=== PATIENT | female | born 1980 | race Caucasian/White ===

== ENCOUNTER 2023-03-05 12:11 | Outpatient (OUT) | payer OTHER, SELFPAY ==
[2023-03-05 12:41] LABS: Basophils Absolute Auto 0.1 10^3/uL (0.0-0.1); Basophils Percent Auto 0.8 % (0.2-2.0); Eosinophils Absolute Auto 0.1 10^3/uL (0.0-0.7); Eosinophils Percent Auto 1.5 % (0.9-7.0); Hematocrit 42.1 % (36.0-48.0); Hemoglobin 14.5 g/dL (12.0-16.0); Immature Granulocytes Abs Auto 0.02 10^3/uL (0.00-0.03); Immature Granulocytes Pct Auto 0.3 % (0.0-0.5); Lymphocytes Absolute Auto 1.4 10^3/uL (1.2-3.8); Lymphocytes Percent Auto 23.5 % (20.5-60.0); Mean Corpuscular HGB Conc 34.4 g/dL (29.9-35.2); Mean Platelet Volume 9.2 fL (9.5-13.5); Monocytes Absolute Auto 0.4 10^3/uL (0.3-0.8); Monocytes Percent Auto 6.7 % (1.7-12.0); Neutrophils Percent Auto 67.2 % (43.0-75.0); Platelet Count 227 10^3/uL (150-450); Red Blood Count 4.84 10^6/uL (4.20-5.40); Red Cell Distribution Width 12.7 % (11.0-15.0)
[2023-03-05 13:43] LABS: Estimated Average Glucose 97 mg/dL
[2023-03-05 13:45] LABS: Alanine Aminotransferase 26 U/L (14-59); Albumin Globulin Ratio 0.8; Albumin Level 3.6 g/dL (3.4-5.0); Alkaline Phosphatase 76 U/L (46-116); Anion Gap 11.8; Aspartate Amino Transferase 17 U/L (15-37); BUN Creatinine Ratio 18.3; Bilirubin Total 0.4 mg/dL (0.2-1.0); Carbon Dioxide 27.3 mmol/L (21.0-32.0); Chloride 103 mmol/L (98-107); Estimated GFR (African America >60 (>=60); Estimated GFR (Non-African Ame >60 (>=60); Globulin 4.4 g/dL; Glucose 96 mg/dL (74-106); Potassium 4.1 mmol/L (3.5-5.1); Sodium 138 mmol/L (136-145)
[2023-03-05 14:01] LABS: Chol HDL Ratio 4.6; Cholesterol 237 mg/dL (<=200); HDL Cholesterol 51 mg/dL (40-60); Thyroid Stimulating Hormone 1.331 uIU/mL (0.358-3.740); Triglycerides 173 mg/dL (<=150); VLDL CHOLESTEROL 34.6 mg/dL
== END 2023-03-05 12:12 ==
LOC: LAB 12:15
PROVIDERS: PCP Nurse Practitioner Primary Care; Visit Provider Nurse Practitioner Primary Care
DX: Z00.00 Encounter for general adult medical examination without abnormal findings (principal); Z13.6 Encounter for screening for cardiovascular disorders; Z13.29 Encounter for screening for other suspected endocrine disorder
CPT/HCPCS: 36415; 80053; 80061; 83036; 84443; 85025

== ENCOUNTER 2023-04-03 07:51 | Outpatient (OUT) | payer OTHER, SELFPAY ==
--- NOTE | 2023-04-03 08:07 | US_ITS ---
The [address] [address] Patient Name: WENDI SALEH MRN: [id number] date: 1980 Sex: F Assigned Patient Location: Current Patient Location: [facility] Accession/Order Number: [id number] Exam Date: 04/03/2023 08:09 Report Date: 04/03/2023 09:45 At the request of: NON-STAFF PHYSICIAN Procedure: US renal BI EXAM: US renal BI HISTORY: . Overactive Bladder N32.81 . COMPARISON: None. TECHNIQUE: Grayscale and color imaging was performed FINDINGS: Scanning of the right kidney demonstrates right kidney to measure 10.4 x 4.8 x 4.5 cm. Color-flow is noted. No solid renal cortical masses or hydronephrosis is noted. Renal cortical echotexture is unremarkable. Scanning of the left kidney demonstrates left kidney to measure 13 x 5.5 x 4.7 cm. Color-flow is noted. No solid renal cortical masses or hydronephrosis is noted. Renal cortical echotexture is unremarkable. Scanning of the bladder demonstrates a normal-appearing bladder. No masses are noted. No bladder wall thickening was noted. Bladder volume was 170 cc. US/US renal BI IMPRESSION: 1 normal ultrasound of the kidneys. 2. Normal ultrasound of the bladder. Electronically authenticated by: HAILY BUCKLEY Date: 04/03/2023 09:45
== END 2023-04-03 07:52 | disposition home or self-care (01) ==
LOC: US 07:51
PROVIDERS: PCP Nurse Practitioner Primary Care
DX: Z12.31 Encounter for screening mammogram for malignant neoplasm of breast (principal); Z80.52 Family history of malignant neoplasm of bladder; Z80.8 Family history of malignant neoplasm of other organs or systems; N32.81 Overactive bladder
CPT/HCPCS: 76775; 77063; 77067

== ENCOUNTER 2023-04-03 07:53 | Outpatient (OUT) | payer OTHER, SELFPAY ==
--- NOTE | 2023-04-03 08:10 | MM_ITS ---
Patient: WENDI SALEH Exam Date: 04/03/2023 : 1980 Gender:F Ordering : STEW LinaAnabel CADEN Admission #: [id number] Family : Order #: [id number] CLICK HERE TO VIEW EXAM RADIOLOGY REPORT PROCEDURE: MM TOMOSYNTHESIS SCREENING BI COMPARISON: [facility] MAMM DIAGNOSTIC 3D SHAHIDA CAD, 05/29/2015. MG MAMM SCREEN SHAHIDA W CAD, 05/19/2015. INDICATIONS: Screening Calculator Name NCI Breast Cancer Risk Assessment Tool 5 Year Breast Cancer Risk 0.50% Lifetime Breast Cancer Risk 6.50% Personal Breast Cancer No Personal Ovarian Cancer No Treatments None Family Cancers Mother with skin cancer at age 60; Father with bladder cancer at age 60. LOCATION: [facility] BREAST COMPOSITION: Heterogeneously dense,which may obscure small masses. FINDINGS: DIAGNOSTIC CATEGORY 1--NEGATIVE. RIGHT BREAST: No significant suspicious finding. No significant change has occurred. LEFT BREAST: No significant suspicious finding. No significant change has occurred. RECOMMENDATIONS: ROUTINE MAMMOGRAM AND CLINICAL EVALUATION IN 12 MONTHS. PLEASE NOTE: A NORMAL MAMMOGRAM DOES NOT EXCLUDE THE POSSIBILITY OF BREAST CANCER. A CLINICALLY SUSPICIOUS PALPABLE LUMP SHOULD BE BIOPSIED. Dictated by: Sav Hughes M.D. on 04/03/2023 at 14:53 Approved by: Sav Hughes M.D. on 04/03/2023 at 14:55
== END 2023-04-03 07:54 | disposition home or self-care (01) ==
LOC: MAMMO 07:54
PROVIDERS: PCP Nurse Practitioner Primary Care; Visit Provider Nurse Practitioner Primary Care
DX: Z12.31 Encounter for screening mammogram for malignant neoplasm of breast (principal); Z80.52 Family history of malignant neoplasm of bladder; Z80.8 Family history of malignant neoplasm of other organs or systems
CPT/HCPCS: 77063; 77067

== ENCOUNTER 2023-04-07 19:48 | Outpatient (REF) | payer OTHER, SELFPAY ==
[2023-04-07 23:00] LABS: Amphetamine Screen Urine NEGATIVE (NEGATIVE); Barbiturates Screen Urine NEGATIVE (NEGATIVE); Benzodiazepines Screen Urine NEGATIVE (NEGATIVE); Buprenorphine Screen Urine NEGATIVE (NEGATIVE); Cannabinoid Screen Urine NEGATIVE (NEGATIVE); Cocaine Screen Urine NEGATIVE (NEGATIVE); Methadone Screen Urine NEGATIVE (NEGATIVE); Methamphetamines Screen Urine NEGATIVE (NEGATIVE); Opiate Screen Urine NEGATIVE (NEGATIVE); Oxycodone Screen Urine NEGATIVE (NEGATIVE); Phencyclidine Screen Urine NEGATIVE (NEGATIVE); Tricyclic Antidepressant Urine NEGATIVE (NEGATIVE)
== END 2023-04-07 19:49 | disposition home or self-care (01) ==
LOC: LAB 19:48
PROVIDERS: PCP Nurse Practitioner Primary Care; Visit Provider Nurse Practitioner Primary Care
DX: G62.9 Polyneuropathy, unspecified (principal)
CPT/HCPCS: 80307

== ENCOUNTER 2023-05-12 22:27 | Outpatient (REF) | payer OTHER, SELFPAY | END 2023-05-12 22:28 | disposition home or self-care (01) | LOC: LAB 22:27 | PROVIDERS: PCP Nurse Practitioner Primary Care; Visit Provider Nurse Practitioner Primary Care | DX: Z78.9 Other specified health status (principal) | CPT/HCPCS: 87086 ==

== ENCOUNTER 2023-06-15 12:37 | Outpatient (OUT) | payer OTHER, SELFPAY ==
--- NOTE | 2023-06-15 12:40 | MR_ITS ---
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 CONTRAST: 20 mL of Dotarem. FINDINGS: No restricted diffusion, extra-axial fluid collection, hydrocephalus, midline shift, or other mass effect. Intracranial flow voids are maintained. Normal midline structures without Chiari I malformation. Normal marrow signal. Nonspecific prominent nasopharyngeal/adenoidal soft tissue. Paranasal sinuses are well-aerated. Large left mastoid effusion. Right mastoid air cells are well-aerated. MR/MR head/brain wo/w con IMPRESSION: 1. No acute intracranial process or abnormal enhancement. 2. Sterility indeterminate large left mastoid effusion. 3. Nonspecific prominent nasopharyngeal/adenoidal soft tissue could be reactive. Electronically authenticated by: ROD NÚÑEZ Date: 06/15/2023 14:04
== END 2023-06-15 12:38 | disposition home or self-care (01) ==
LOC: MRI 12:38
PROVIDERS: PCP Nurse Practitioner Primary Care; Visit Provider Psychiatry & Neurology Neurology
DX: R20.9 Unspecified disturbances of skin sensation (principal); Q05.9 Spina bifida, unspecified
CPT/HCPCS: 70553; A9575

== ENCOUNTER 2023-06-17 10:37 | Outpatient (OUT) | payer OTHER, SELFPAY | END 2023-06-17 10:38 | disposition home or self-care (01) | LOC: LAB 10:38 | PROVIDERS: PCP Nurse Practitioner Primary Care; Visit Provider Nurse Practitioner Primary Care | DX: Z13.21 Encounter for screening for nutritional disorder (principal) | CPT/HCPCS: 36415; 82306; 82607 ==

== ENCOUNTER 2023-06-17 11:36 | Outpatient (REF) | payer OTHER, SELFPAY ==
[2023-06-17 12:07] LABS: Bilirubin Urine NEGATIVE (NEGATIVE); Blood Urine TRACE-I (NEGATIVE); Clarity Urine CLEAR (CLEAR); Color Urine LT. YELLOW (YELLOW); Glucose Urine UA NEGATIVE (NEGATIVE); Ketones Urine NEGATIVE (NEGATIVE); Leukocyte Esterase Urine TRACE (NEGATIVE); Nitrite Urine NEGATIVE (NEGATIVE); Protein Urine NEGATIVE (NEG/TRACE); Urobilinogen Urine 0.2 EU/dL (0.2-1.0); pH Urine 5.5 (5.0-9.0)
== END 2023-06-17 11:37 | disposition home or self-care (01) ==
LOC: LAB 11:36
PROVIDERS: PCP Nurse Practitioner Primary Care; Visit Provider Nurse Practitioner Primary Care
DX: Z13.21 Encounter for screening for nutritional disorder (principal); R30.0 Dysuria
CPT/HCPCS: 36415; 81003; 82306; 82607; 87086

== ENCOUNTER 2023-10-13 21:40 | Outpatient (REF) | payer OTHER, SELFPAY | END 2023-10-13 21:41 | disposition home or self-care (01) | LOC: LAB 21:40 | PROVIDERS: PCP Nurse Practitioner Primary Care; Visit Provider Nurse Practitioner Primary Care | DX: N30.01 Acute cystitis with hematuria (principal) | CPT/HCPCS: 87086; 87150; 87186 ==

== ENCOUNTER 2023-11-21 18:14 | Emergency (ER) | payer OTHER, SELFPAY ==
[2023-11-21] VITALS (8 sets, daily range): BP systolic 122–166; BP diastolic 80–102; PULSE 83–100; RESP 17–22; TEMP 37.6; O2SAT 98–100; BMI 43.5
--- OUTSIDE RECORDS SUMMARY | 2023-11-21 18:19 | XMS_ITS | CCD ---
Author Name Unknown Address [address] [place] [address] Organization [facility] Care Team Providers Care Plumber Apprentice Name Role Phone NEGRITA RESTREPO Admitting Unavaila NEGRITA David Attending Unavaila ble VANCE KEVIN (PA-C) Referring Unavaila ble VANCE KEVIN (PA-C) Referring Unavaila ble Astrid Myers Unavailable MD Liya Peña Attending Provider [phone] DO Deshawn Sharma Primary Care Provider MD Simone Warren Attending Provider [phone] MD Liya Peña Attending Provider DO Deshawn Sharma Primary Care Provider Dr. Deshawn Sharma Balta Primary Care Tom Lopes, Dr. Dominick Hawkins Referring Ashley Lopes, Dr. Dominick Hawkins Attending Ashley Lopes, Dr. Dominick Hawkins Admitting Ashley LEIVA ., ELIUD PARNELL Consulting Unavailabl e DIAB .RO Attending Unavailable DIAB ., RO Admitting Unavailable EDITH, DR GRANT Primary Care Unavailable HAILY HAIDER Consulting Unavailable MARKER ., DR SALCEDO Admitting Unavailable HOUSE, DR GRANT Primary Care Unavailable MARKER ., DR SALCEDO Attending Unavailable MARKER ., DR SALCEDO Consulting Unavailable DESIRAE KATZ Consulting Unavailable BERNWAYNE GOLDEN Consulting DR DESHAWN Reyes Primary Care Unavailable DOMINICK LOPES MD Attending Unavailable DESHAWN SHARMA SR Primary Care Unavailable Stanley, [facility]- Shon Gonzalez Primary Care Provider DO Eric uCrran Emergency Provider [phone] Shon Angel Primary Care Unavailable Eric Curran Admitting Unavailable Eric Curran Attending Unavailable Deshawn Sharma Primary Care Unavailable Liya Peña Admitting Unavailable Liya Peña Attending Unavailable Simone Warren Admitting UnavailSimone Bella Attending Deshawn Osorio Primary Care Unavailable Simone Warren Admitting UnavailSimone Bella Attending Deshawn Osorio Primary Care Unavailable Allergies Allergy Classification Reported Allergen(s) Allergy Type Date of Onset Reaction(s) Facility (6 sources) Latex; Translations: [LATEX] Propensity to adverse reactions to drug (disorder) 8 Anaphylaxis [facility] Repository (2 sources) Morphine; Translations: [MORPHINE] Drug Allergy 7 [facility] Repository (1 source) Zinc Oxide; Translations: [ZINC OXIDE] Drug Allergy 2 [facility] Repository (1 source) NEOMYCIN-BACITR ACIN-POLYMYXIN; Translations: [NEOMYCIN-BACIT RACIN-POLYMYXIN ] Propensity to adverse reactions to drug (disorder) 2 [facility] Repository (1 source) Latex Tube/Connector Drug allergy anaphylaxis [facility] Other (1 source) Amoxicillin / Clavulanate Drug Allergy 7 [facility] Repository (1 source) Gestronol Drug Allergy 7 [facility] Repository (2 sources) Ciprofloxacin; Translations: [ciprofloxacin] Drug Allergy 3 [facility] Medications Current Medications Medication Drug Class(es) Dates Sig (Normalized) Sig (Original) cephalexin 500 mg oral capsule (1 source) Cephalosporin Antibacterial Start: 09-05-2021 take 1 capsule by mouth every eight hours Cephalexin 500 MG 1 capsule Orally three times a day for 10 day(s) Aug, Active fluticasone propionate 0.05 mg/actuat metered dose nasal spray (1 source) Corticosteroid Start: 05-18-2023 Fluticasone Propionate (Flonase Allergy Relief) 50 mcg/actuation spray,suspension Active 2 SPRAY INTRANASAL Daily May 18, 2023 12:00am pregabalin 50 mg oral capsule (4 sources) Start: 06-10-2022 take 1 capsule by mouth three times daily Pregabalin (Lyrica) 50 mg Capsule Active 50 MG PO Three times daily June 10, 2022 12:00am Lyrica Active traMADol hydrochloride 50 mg oral tablet (4 sources) Opioid Agonist Start: 06-10-2022 take 50 mg by mouth three times daily Tramadol Active 50 MG PO Three times daily June 10, 2022 12:00am traMADol HCl Act patricia Completed/Discontinued Medications Medication Drug Class(es) Dates Sig (Normalized) Sig (Original) amoxicillin 875 mg oral tablet (1 source) Penicillin-class Antibacterial Start: 02-23-2021 take 1 tablet by mouth every eight hours Amoxicillin 875 MG 1 tablet Orally every 8 hrs for 10 day(s) Feb, Not-Taking Problems Active Problems Problem Classification Problem Date Documented Date Episodic/Chronic Anxiety disorders (1 source) Anxiety disorder, unspecified; Translations: [Anxiety disorder, unspecified] Onset: 10-06-2022 Chronic Conditions associated with dizziness or vertigo (1 source) Dizziness and giddiness; Translations: [Dizziness and giddiness] Onset: 05-18-2023 Episodic Disorders of lipid metabolism (1 source) Pure hypercholesterolemia, unspecified; Translations: [Pure hypercholesterolemia, unspecified] Onset: 10-06-2022 Chronic E Codes: Struck by; against (1 source) Striking against or struck by other objects, initial encounter; Translations: [STRIKING AGNST/STRUCK OTH OBJ INIT] Onset: 02-17-2023 Episodic Genitourinary symptoms and ill-defined conditions (2 sources) Urge incontinence; Translations: [Urge incontinence] Onset: 10-06-2022 Chronic Immunizations and screening for infectious disease (1 source) Encounter for immunization; Translations: [ENCOUNTER FOR IMMUNIZATION] Onset: 02-17-2023 Episodic Mood disorders (1 source) Mood disorders; Translations: [Depression, unspecified] Onset: 10-06-2022 Nervous system congenital anomalies (2 sources) Spina bifida, unspecified; Translations: [Spina bifida, unspecified] Onset: 08-28-2022 Chronic Open wounds of extremities (4 sources) Laceration without foreign body, left foot, initial encounter; Translations: [LACERATION W/O FB LT FOOT INITIAL] Onset: 02-16-2023 Episodic Other diseases of bladder and urethra (3 sources) Neuromuscular dysfunction of bladder, unspecified; Translations: [Neuromuscular dysfunction of bladder, unspecified] Onset: 08-28-2022 Chronic Other diseases of bladder and urethra (2 sources) Overactive bladder; Translations: [Overactive bladder] Onset: 10-06-2022 Chronic Other diseases of bladder and urethra (1 source) Other specified disorders of bladder; Translations: [Other specified disorders of bladder] Onset: 10-06-2022 Chronic Other screening for suspected conditions (not mental disorders or infectious disease) (1 source) Encounter for observation for other suspected diseases and conditions ruled out; Translations: [Encounter for observation for other suspected diseases and conditions ruled out] Onset: 12-22-2018 Episodic Otitis media and related conditions (1 source) Acute transudative otitis media; Translations: [Other acute nonsuppurative otitis media, unspecified ear] 05-18-2023 Episodic Spondylosis; intervertebral disc disorders; other back problems (1 source) Spinal stenosis, cervical region; Translations: [Spinal stenosis, cervical region] Onset: 12-22-2018 Episodic Substance-related disorders (1 source) Nicotine dependence, unspecified, uncomplicated; Translations: [Nicotine dependence, unspecified, uncomplicated] Onset: 10-06-2022 Chronic Unclassified (1 source) MRI LUMBAR Onset: 01-06-2018 Unclassified (1 source) UNVACCINATED FOR COVID-19; Translations: [UNVACCINATED FOR COVID-19] Onset: 08-28-2022 Unclassified (1 source) Low back pain, unspecified; Translations: [Low back pain, unspecified] Onset: 08-07-2022 Unclassified (1 source) Encounter for preprocedural laboratory examination; Translations: [Encounter for preprocedural laboratory examination] Onset: 06-06-2022 Urinary tract infections (2 sources) Acute cystitis with hematuria; Translations: [Other cystitis without hematuria] Onset: 12-16-2021 Resolved: 09-05-2021 Episodic Viral infection (1 source) COVID-19; Translations: [COVID-19] Onset: 08-28-2022 Past or Other Problems Problem Classification Problem Date Documented Da te Episodic/Chronic Genitourinary symptoms and ill-defined conditions (3 sources) Dysuria; Translations: [Dysuria] Onset: 09-05-2021 Resolved: 09-05-2021 Episodic Other gastrointestinal disorders (1 source) Constipation, unspecified; Translations: [Constipation, unspecified] Onset: 06-10-2022 Episodic Residual codes; unclassified (3 sources) Chills (without fever); Translations: [CHILLS WITHOUT FEVER] Onset: 08-25-2022 Episodic Results Test Name Value Interpretation Reference Range Facility Alanine aminotransferase [En zymatic activity/volume] in Serum or PlasmaOrdered By: Eric Curran on 05-18-2023 ALT [Catalytic activity/Vol] 16 U/L 7-52 [facility] Albumin [Mass/volume] in Ser um or Plasma by Bromocresol green (BCG) dye binding methoOrdered By: Eric Curran on 05-18-2023 Albumin BCG dye [Mass/Vol] 4.1 g/dL 3.5-5.7 [facility] Alkaline phosphatase [Enzyma tic activity/volume] in Serum or PlasmaOrdered By: Eric Curran on 05-18-2023 ALP [Catalytic activity/Vol] 69 U/L 34-104 [facility] Aspartate aminotransferase [ Enzymatic activity/volume] in Serum or PlasmaOrdered By: Eric Curran on 05-18-2023 AST [Catalytic activity/Vol] 14 U/L 13-39 [facility] Basophils Auto (Bld) [#/Vol] Ordered By: PROVIDER TEMP on 05-18-2023 Basophils (Bld) [#/Vol] 0.1 10*3/uL 0.0-0.2 [facility] Basophils/100 WBC Auto (Bld) Ordered By: PROVIDER TEMP on 05-18-2023 Basophils/100 WBC (Bld) 0.8 % . [facility] Bilirubin.total [Mass/volume ] in Serum or PlasmaOrdered By: Eric Curran on 05-18-2023 Bilirubin [Mass/Vol] 0.3 mg/dL 0.3-1.0 [facility] CT head/brain wo conon 05-18 CT head/brain wo con [facility] [place] [address] CT Scan Report Signed Patient: Karlene Tom MR#: [id number] : 1980 Acct:[id number] Age/Sex: 42 / F ADM Date: 05/18/23 Loc: ER Room: Type: [facility] ER Attending Dr: Copies to: Eric Curran DO Ordering Provider: Eric Curran DO Date of Service: 05/18/23 CT/CT head/brain wo con: numbness, costa Unenhanced head CT TECHNIQUE: Contiguous axial imaging of the head. The CT exam was performed using one or more the following dose reduction techniques: Automated exposure control, adjustment of the MA and/or Kv according to patient size, or use of the iterative reconstruction technique. COMPARISON: None HISTORY: Headache. Left-sided facial numbness. VENTRICLES: Within normal limits ATROPHY: None BRAIN PARENCHYMA: Adequate ely-white matter differentiation identified. HEMORRHAGE: None HERNIATION: No mass effect or herniation INFARCTION: No recent vascular distribution infarction is seen. EXTRA-AXIAL FLUID COLLECTIONS None MIDBRAIN: Unremarkable HAM: Unremarkable MEDULLA: Unremarkable SINUSES: Unremarkable ORBITS: Grossly unremarkable MASTOIDS: Unremarkable BONY STRUCTURES Intact ADDITIONAL FINDINGS: CT/CT head/brain wo con IMPRESSION: Unremarkable exam Impression dictated by: Rodney Regalado M.D.05/18/2023 8:43 PM Dictation Location: [place] [address] Transcribed By: [facility] 05/18/232042 Dictated By: Rodney Regalado DO 05/18/232041 Signed By: 05/18/232042 Normal [facility] Calcium [Mass/volume] in Ser um or PlasmaOrdered By: Eric Curran on 05-18-2023 Calcium [Mass/Vol] 8.9 mg/dL 8.6-10.3 [facility] Chloride [Moles/volume] in S gisel or PlasmaOrdered By: Eric Curran on 05-18-2023 Chloride [Moles/Vol] 105 mmol/L 98-107 [facility] Complete Blood Count Auto Di ffon 05-18-2023 Basophils (Bld) [#/Vol] 0.1 10*3/uL Normal 0.0-0.2 [facility] Comment on above: Result Comment: PERF ORMED BY: [place] [address] PATHOLOGIST MEDICAL ASSEMBLER MADI MASTERSON M.D. Performed By: #### H S TROP, CMP, CK, CBC #### [address] Basophils/100 WBC (Bld) 0.8 % Normal . [facility] Comment on above: Performed By: #### H S TROP, CMP, CK, CBC #### [address] Eosinophils (Bld) [#/Vol] 0.1 10*3/uL Normal 0.0-0.45 [facility] Comment on above: Performed By: #### H S TROP, CMP, CK, CBC #### [address] Eosinophils/100 WBC (Bld) 1.4 % Normal . [facility] Comment on above: Performed By: #### H S TROP, CMP, CK, CBC #### [address] Erythrocyte distribution width (RBC) [Ratio] 12.7 % Normal 11.9-15.3 [facility] Comment on above: Performed By: #### H S TROP, CMP, CK, CBC #### [address] Hematocrit (Bld) [Volume fraction] 41.1 % Normal 34.0-46.4 [facility] Comment on above: Performed By: #### H S TROP, CMP, CK, CBC #### [facility] [address] [place] [address] Hemoglobin (Bld) [Mass/Vol] 13.9 g/dL Normal 11.8-15.4 [facility] Comment on above: Performed By: #### H S TROP, CMP, CK, CBC #### [address] Lymphocytes (Bld) [#/Vol] 2.3 10*3/uL Normal 1.00-4.8 [facility] Comment on above: Performed By: #### H S TROP, CMP, CK, CBC #### [address] Lymphocytes/100 WBC (Bld) 23.1 % Normal . [facility] Comment on above: Performed By: #### H S TROP, CMP, CK, CBC #### [address] MCH (RBC) [Entitic mass] 29.4 pg Normal 24.7-34.3 [facility] Comment on above: Performed By: #### H S TROP, CMP, CK, CBC #### [address] MCV (RBC) [Entitic vol] 86.7 fL Normal 80-100 [facility] Comment on above: Performed By: #### H S TROP, CMP, CK, CBC #### [address] Mean Corpuscular HGB Conc 33.9 g/dL Normal 32.0-35.0 [facility] Comment on above: Performed By: #### H S TROP, CMP, CK, CBC #### [address] Monocytes (Bld) [#/Vol] 0.6 10*3/uL Normal 0.0-0.8 [facility] Comment on above: Performed By: #### H S TROP, CMP, CK, CBC #### [address] Monocytes/100 WBC (Bld) 15.48 % Normal 0.00-20.00 [facility] Comment on above: Performed By: #### H S TROP, CMP, CK, CBC #### [address] Monocytes/100 WBC (Bld) 6.0 % Normal . [facility] Comment on above: Performed By: #### H S TROP, CMP, CK, CBC #### [address] Neutrophils (Bld) [#/Vol] 6.7 10*3/uL Normal 1.8-7.7 [facility] Comment on above: Performed By: #### H S TROP, CMP, CK, CBC #### [address] Neutrophils/100 WBC (Bld) 68.7 % Normal . [facility] Comment on above: Performed By: #### H S TROP, CMP, CK, CBC #### [address] NRBC% 0.2 /100{WBC} Normal 0-0.5 [facility] Comment on above: Performed By: #### H S TROP, CMP, CK, CBC #### [address] Platelet mean volume (Bld) [Entitic vol] 8.0 fL Normal 6.3-10.7 [facility] Comment on above: Performed By: #### H S TROP, CMP, CK, CBC #### [address] Platelets (Bld) [#/Vol] 247 10*3/uL Normal 150-450 [facility] Comment on above: Performed By: #### H S TROP, CMP, CK, CBC #### [address] RBC (Bld) [#/Vol] 4.74 10*6/uL Normal 3.60-5.00 [facility] Comment on above: Performed By: #### H S TROP, CMP, CK, CBC #### [address] WBC (Bld) [#/Vol] 9.7 10*3/uL Normal 3.8-11.6 [facility] Comment on above: Performed By: #### H S TROP, CMP, CK, CBC #### [facility] [address] Comprehensive Metabolic Pane margo 05-18-2023 Albumin [Mass/Vol] 4.1 g/dL Normal 3.5-5.7 [facility] Comment on above: Performed By: #### H S TROP, CMP, CK, CBC #### [facility] [address] Albumin/Globulin [Mass ratio] 1.4 {ratio} Normal [facility] Comment on above: Performed By: #### H S TROP, CMP, CK, CBC #### [address] ALP [Catalytic activity/Vol] 69 U/L Normal 34-104 [facility] Comment on above: Performed By: #### H S TROP, CMP, CK, CBC #### [address] ALT [Catalytic activity/Vol] 16 U/L Normal 7-52 [facility] Comment on above: Performed By: #### H S TROP, CMP, CK, CBC #### [address] Anion gap [Moles/Vol] 12.3 mmol/L Normal 6.0-15.0 [facility] Comment on above: Performed By: #### H S TROP, CMP, CK, CBC #### [address] AST [Catalytic activity/Vol] 14 U/L Normal 13-39 [facility] Comment on above: Performed By: #### H S TROP, CMP, CK, CBC #### [facility] [address] [place] [address] [place] Bilirubin [Mass/Vol] 0.3 mg/dL Normal 0.3-1.0 [facility] Comment on above: Performed By: #### H S TROP, CMP, CK, CBC #### [place] [address] [place] Calcium [Mass/Vol] 8.9 mg/dL Normal 8.6-10.3 [facility] Comment on above: Performed By: #### H S TROP, CMP, CK, CBC #### [address] Chloride [Moles/Vol] 105 mmol/L Normal 98-107 [facility] Comment on above: Performed By: #### H S TROP, CMP, CK, CBC #### [address] CO2 [Moles/Vol] 24.8 mmol/L Normal 21.0-31.0 [facility] Comment on above: Performed By: #### H S TROP, CMP, CK, CBC #### [address] Creatinine [Mass/Vol] 0.76 mg/dL Normal 0.60-1.20 [facility] Comment on above: Performed By: #### H S TROP, CMP, CK, CBC #### [address] Creatinine Clr Calc Pharmacy 131.87 [facility] Comment on above: Result Comment: PERF ORMED BY: [place] [address] PATHOLOGIST MEDICAL ASSEMBLER MADI MASTERSON M.D. Performed By: #### H S TROP, CMP, CK, CBC #### [address] GFR/1.73 sq M.predicted MDRD (S/P/Bld) [Vol rate/Area] mL/min/{1.73_m2} [facility] Comment on above: Performed By: #### H S TROP, CMP, CK, CBC #### [address] Globulin (S) [Mass/Vol] 3.0 g/dL [facility] Comment on above: Performed By: #### H S TROP, CMP, CK, CBC #### [address] Glucose [Mass/Vol] 84 mg/dL Normal 70-100 [facility] Comment on above: Result Comment: [facility] Glucose Reference Range is dependent on time and content of last meal. Glucose of more than 200 mg/dL in a nonstressed, ambulatory subject supports the diagnosis of Diabetes Mellitus. ADA recommended reference range Performed By: #### H S TROP, CMP, CK, CBC #### [facility] [address] Potassium [Moles/Vol] 4.1 mmol/L Normal 3.5-5.1 [facility] Comment on above: Performed By: #### H S TROP, CMP, CK, CBC #### [address] Protein [Mass/Vol] 7.1 g/dL Normal 6.4-8.9 [facility] Comment on above: Performed By: #### H S TROP, CMP, CK, CBC #### [address] Sodium [Moles/Vol] 138 mmol/L Normal 136-145 [facility] Comment on above: Performed By: #### H S TROP, CMP, CK, CBC #### [address] Urea nitrogen [Mass/Vol] 13 mg/dL Normal 7-25 [facility] Comment on above: Performed By: #### H S TROP, CMP, CK, CBC #### [facility] [address] [place] [address] [place] Creatine Kinaseon 05-18-2023 CK [Catalytic activity/Vol] 37 U/L Normal 30-223 [facility] Comment on above: Performed By: #### H S TROP, CMP, CK, CBC #### [facility] [address] [place] [address] [place] Creatine kinase [Enzymatic a ctivity/volume] in Serum or PlasmaOrdered By: Eric Curran on 05-18-2023 CK [Catalytic activity/Vol] 37 U/L 30-223 [facility] Creatinine [Mass/volume] in Serum or PlasmaOrdered By: Eric Curran on 05-18-2023 Creatinine [Mass/Vol] 0.76 mg/dL 0.60-1.20 [facility] ECG 12 lead ECGon 05-18-2023 ECG 12 lead ECG [facility] [place] [id number] Electrocardiograph Report Signed Patient: Karlene Tom MR#: [id number] : 1980 Acct:[id number] Age/Sex: 42 / F ADM Date: 05/18/23 Loc: ER Room: Type: [facility] ER Attending Dr: Ordering Provider: Eric Curran DO Date of Service: 05/18/23 ECG/ECG 12 lead ECG: Neuro Symptoms/Deficit Copies to: Test Reason : Blood Pressure : 150/076 mmHG Vent. Rate : 075 BPM Atrial Rate : 075 BPM P-R Int : 150 ms QRS Dur : 088 ms QT Int : 356 ms P-R-T Axes : 063 041 025 degrees QTc Int : 397 ms Normal sinus rhythm Normal ECG No previous ECGs available Confirmed by ERIC CURRAN DO ([id number]) on 05/19/2023 5:53:32 AM Referred By: Electronically Signed By:ERIC CURRAN DO Transcribed By: MUS Signed By Eric Curran DO 0553 Normal [facility] Eosinophils Auto (Bld) [#/Vo l]Ordered By: PROVIDER TEMP on 05-18-2023 Eosinophils (Bld) [#/Vol] 0.1 10*3/uL 0.0-0.45 [facility] Eosinophils/100 WBC Auto (Bl d)Ordered By: PROVIDER TEMP on 05-18-2023 Eosinophils/100 WBC (Bld) 1.4 % . [facility] Erythrocyte distribution wid th Auto (RBC) [Ratio]Ordered By: PROVIDER TEMP on 05-18-2023 Erythrocyte distribution width (RBC) [Ratio] 12.7 % 11.9-15.3 [facility] Globulin Calc (S) [Mass/Vol] Ordered By: Eric Curran on 05-18-2023 Globulin (S) [Mass/Vol] 3.0 g/dL [facility] Glucose [Mass/volume] in Ser um or PlasmaOrdered By: Eric Curran on 05-18-2023 Glucose [Mass/Vol] 84 mg/dL 70-100 [facility] Comment on above: ADA recommended refe rence rangeRandom Glucose Reference Range is dependent on time and content of last meal. Glucose of more than 200 mg/dL in a nonstressed, ambulatory subject supports the diagnosis of Diabetes Mellitus. Hematocrit Auto (Bld) [Volum e fraction]Ordered By: PROVIDER TEMP on 05-18-2023 Hematocrit (Bld) [Volume fraction] 41.1 % 34.0-46.4 [facility] Hemoglobin [Mass/volume] in BloodOrdered By: PROVIDER TEMP on 05-18-2023 Hemoglobin (Bld) [Mass/Vol] 13.9 g/dL 11.8-15.4 [facility] Leukocytes [#/volume] correc demond for nucleated erythrocytes in Blood by Automated counOrdered By: PROVIDER TEMP on 05-18-2023 WBC corrected for nucl RBC Auto (Bld) [#/Vol] 9.7 10*3/uL 3.8-11.6 [facility] Lymphocytes Auto (Bld) [#/Vo l]Ordered By: PROVIDER TEMP on 05-18-2023 Lymphocytes (Bld) [#/Vol] 2.3 10*3/uL 1.00-4.8 [facility] Lymphocytes/100 WBC Auto (Bl d)Ordered By: PROVIDER TEMP on 05-18-2023 Lymphocytes/100 WBC (Bld) 23.1 % . [facility] MCH Auto (RBC) [Entitic mass ]Ordered By: PROVIDER TEMP on 05-18-2023 MCH (RBC) [Entitic mass] 29.4 pg 24.7-34.3 [facility] MCHC Auto (RBC) [Mass/Vol]Or dered By: PROVIDER TEMP on 05-18-2023 MCHC (RBC) [Mass/Vol] 33.9 g/dL 32.0-35.0 [facility] MCV Auto (RBC) [Entitic vol] Ordered By: PROVIDER TEMP on 05-18-2023 MCV (RBC) [Entitic vol] 86.7 fL 80-100 [facility] Monocyte distribution width [Entitic volume] in Blood by AutomatedOrdered By: PROVIDER TEMP on 05-18-2023 Monocyte distribution width Auto (Bld) [Entitic vol] 15.48 % 0.00-20.00 [facility] Monocytes Auto (Bld) [#/Vol] Ordered By: PROVIDER TEMP on 05-18-2023 Monocytes (Bld) [#/Vol] 0.6 10*3/uL 0.0-0.8 [facility] Monocytes/100 WBC Auto (Bld) Ordered By: PROVIDER TEMP on 05-18-2023 Monocytes/100 WBC (Bld) 6.0 % . [facility] Neutrophils Auto (Bld) [#/Vo l]Ordered By: PROVIDER TEMP on 05-18-2023 Neutrophils (Bld) [#/Vol] 6.7 10*3/uL 1.8-7.7 [facility] Neutrophils/100 WBC Auto (Bl d)Ordered By: PROVIDER TEMP on 05-18-2023 Neutrophils/100 WBC (Bld) 68.7 % . [facility] No Panel InformationOrdered By: Eric Curran on 05-18-2023 Estimated GFR (CKD-EPI) > 60.0 mL/Min [facility] Creatinine Clearance (Chem 131.87 [facility] Nucleated erythrocytes [Pres ence] in Blood by Automated countOrdered By: PROVIDER TEMP on 05-18-2023 Nucleated RBC Auto Ql (Bld) 0.2 /100{WBC} 0-0.5 [facility] Platelet mean volume Auto (B ld) [Entitic vol]Ordered By: PROVIDER TEMP on 05-18-2023 Platelet mean volume (Bld) [Entitic vol] 8.0 fL 6.3-10.7 [facility] Platelets Auto (Bld) [#/Vol] Ordered By: PROVIDER TEMP on 05-18-2023 Platelets (Bld) [#/Vol] 247 10*3/uL 150-450 [facility] Potassium [Moles/volume] in Serum or PlasmaOrdered By: Eric Curran on 05-18-2023 Potassium [Moles/Vol] 4.1 mmol/L 3.5-5.1 [facility] Protein [Mass/volume] in Ser um or PlasmaOrdered By: Eric Curran on 05-18-2023 Protein [Mass/Vol] 7.1 g/dL 6.4-8.9 [facility] RBC Auto (Bld) [#/Vol]Ordere d By: PROVIDER TEMP on 05-18-2023 RBC (Bld) [#/Vol] 4.74 10*6/uL 3.60-5.00 [facility] Serum or plasma albumin/glob ulin mass ratioOrdered By: Eric Curran on 05-18-2023 Albumin/Globulin [Mass ratio] 1.4 {ratio} [facility] Sodium [Moles/volume] in Ser um or PlasmaOrdered By: Eric Curran on 05-18-2023 Sodium [Moles/Vol] 138 mmol/L 136-145 [facility] Troponin I High Sensitivityo n 05-18-2023 Troponin I High Sensitivity 2.6 pg/mL Normal 0.0-15.0 [facility] Comment on above: Result Comment: PERF ORMED BY: [place] [address] PATHOLOGIST MEDICAL ASSEMBLER MADI MASTERSON M.D. Performed By: #### H S TROP, CMP, CK, CBC #### [address] Troponin I.cardiac [Mass/vol ume] in Serum or Plasma by Detection limit <= 0.01 ng/Ordered By: Eric Curran on 05-18-2023 Troponin I.cardiac DL <= 0.01 ng/mL [Mass/Vol] 2.6 pg/mL 0.0-15.0 [facility] Urea nitrogen [Mass/volume] in Serum or PlasmaOrdered By: Eric Curran on 05-18-2023 Urea nitrogen [Mass/Vol] 13 mg/dL 04-14 [facility] WBC Auto (Bld) [#/Vol]Ordere d By: PROVIDER TEMP on 05-18-2023 WBC (Bld) [#/Vol] 9.7 10*3/uL 3.8-11.6 [facility] Anesthesiaon 03-19-2023 Anesthesia Patient: KARLENE TOM Age: 42 years Sex: Female : 1980 Associated Diagnoses: None Author: HUGO ERAZO DO Postoperative Information Time Seen: Date & Time 03/18/2023 13:50:00. Post Operative Info: Post operative day: Post Anesthesia Care Unit. Patient location: PACU. Assessment Postanesthesia assessment Vitals: Vital Signs (last value in last 48 hours) Temperature Temporal Artery: 36 degC Low (03/18/23 13:30:00) Respiratory Rate: 16 br/min (03/18/23 13:45:00) Peripheral Pulse Rate: 71 bpm (03/18/23 13:45:00) Heart Rate Monitored: 65 bpm (03/18/23 13:30:00) Systolic Blood Pressure: 153 mmHg High (03/18/23 13:45:00) Diastolic Blood Pressure: 81 mmHg (03/18/23 13:45:00) Mean Arterial Pressure, Cuff: 83 mmHg (03/18/23 13:30:00) SpO2: 98 % (03/18/23 13:45:00). Mental status: at preoperative baseline. Respiratory support: Normal oxygenation and ventilation. Pain: Controlled. Nausea status: absence of nausea and vomiting. Postoperative hydration status: euvolemic. Notes: Normothermia. [facility] Anesthesiaon 03-18-2023 Anesthesia Patient: KARLENE TOM Age: 42 years Sex: Female : 1980 Associated Diagnoses: None Author: HUGO ERAZO DO DIAGNOSIS: OAB, NEURO Preoperative Information Procedure/ Case: . NPO greater than 8 hours. Anesthesia history Patient's history: negative. Family's history: negative. Review of Systems ALL SYSTEMS REVIEWED: CV, PULM, GI, , NEURO, HEPATIC, HEME, ENDO, PSYCH, MS HISTORY/ROS: 1.spina bifida 2.neurogenic bladder 3.overactive bladder 4.chronic pain Health Status Allergies: Allergies (3) Active Reaction Cipro ITCHING LATEX allergy ANAPHYLAXIS Silvadene WORSENED LANDIS Current medications: Home Medications (4) Active ibuprofen 200 mg oral tablet 600 mg = 3 tabs, PRN, ORAL, TID Lyrica 75 mg oral capsule 75 mg = 1 caps, ORAL, TID tiZANidine 4 mg oral tablet 4 mg = 1 tabs, PRN, ORAL, BID traMADol 50 mg oral tablet 50 mg = 1 tabs, PRN, ORAL, TID LABORATORY DATA Chemistry BMP Plus Mag No qualifying data available. Hematology CBC brief [address] No qualifying data available. Coagulation PT INR [address] No qualifying data available. Test Test, U: NEG (03/18/23) Histories Past Medical History: No qualifying data available Procedure history: Lumbar laminectomy. Social History Social & Psychosocial History Social History Alcohol Denies Alcohol Use Substance Abuse Current, Marijuana, 1-2 times per year Tobacco Former smoker, quit more than 30 days ago Tobacco Use:. Cigarettes Comment: quit 01/09/23. (03/06/2023 14:16 - Palmer WILEY, Frannie) Psychosocial History No active psychosocial history has been recorded . Physical Examination VITALS Vital Signs (last value in last 48 hours) Temperature Temporal Artery: 37 degC (03/18/23 09:00:00) Respiratory Rate: 18 br/min (03/18/23 09:00:00) Heart Rate Monitored: 58 bpm Low (03/18/23 09:00:00) Systolic Blood Pressure: 136 mmHg (03/18/23 09:00:00) Diastolic Blood Pressure: 78 mmHg (03/18/23 09:00:00) SpO2: 97 % (03/18/23 09:00:00)Height and Weight (last value in last 48 hours) Height/Length Dosin.18 cm (03/18/23 08:45:00) Weight Dosin.4 kg (03/18/23 08:45:00) General: Alert and oriented. Airway: Mallampati classification: II (soft palate, fauces, uvula visible). Assessment and Plan [place] [employer] Anesthesiologists (ASA) physical status classification: Class III. Anesthetic Preoperative Plan Anesthetic technique: General anesthesia. Induction: intravenously. Maintenance airway: Laryngeal mask airway. Special monitoring: Standard ASA monitors.. Risks discussed: nausea, vomiting, sore throat, dental injury, allergic reaction, serious complications, Risks explained in detail as listed on the consent form. The patient's questions were answered to satisfaction. The patient is OK to proceed. . Informed consent: signed by patient. Notes. This report was completed using voice recognition software. Verbal misinterpretations may occur. [facility] FENTANYL 100mcg INJon 2022 FENTANYL 100mcg INJ PRN Response Entered On: 03/18/2023 13:44 EDT Performed On: 03/18/2023 13:35 EDT by Ángela Nieves RN Intervention Information: fentanyl Performed by Ángela Nieves RN on 03/18/2023 13:27:00 EDT fentaNYL,25mcg IV Push,Left Hand,Moderate Pain PRN Medication Response PRN Medication used for : Pain PRN Medication Effectiveness : Yes PRN Response Pain Scales : Numeric (8yrs & older) Numeric Pain Scale Age : Numeric (8yrs & older) Actual time of reassessment : Yes Ángela Nieves RN - 03/18/2023 13:44 EDT Numeric Pain Scale Numeric Pain Scale : 2 = Mild Pain Numeric Pain Score : 2 Ángela Nieves RN - 03/18/2023 13:44 EDT [facility] Comment on above: Order Comment: maxim um 200 mcg; Phase I PACU only; For pain level 4-6;HIGH ALERT:monitor for adverse effects; potential SOUND ALIKE/LOOK ALIKE-verify med; FENTANYL 100mcg INJ PRN Response Entered On: 03/18/2023 13:44 EDT Performed On: 03/18/2023 13:20 EDT by Ángela Nieves RN Intervention Information: fentanyl Performed by Ángela Nieves RN on 03/18/2023 13:15:00 EDT fentaNYL,25mcg IV Push,Left Hand,Moderate Pain PRN Medication Response PRN Medication used for : Pain PRN Medication Effectiveness : Yes PRN Response Pain Scales : Numeric (8yrs & older) Numeric Pain Scale Age : Numeric (8yrs & older) Actual time of reassessment : Yes Ángela Nieves RN - 03/18/2023 13:44 EDT Numeric Pain Scale Numeric Pain Scale : 5 = Moderate pain Numeric Pain Score : 5 Ángela Nieves RN - 03/18/2023 13:44 EDT [facility] Comment on above: Order Comment: maxim um 200 mcg; Phase I PACU only; For pain level 4-6;HIGH ALERT:monitor for adverse effects; potential SOUND ALIKE/LOOK ALIKE-verify med; HYDROmorPHONE 0.5MG/0.5ML IN [place] 03-18-2023 HYDROmorPHONE 0.5MG/0.5ML INJ PRN Response Entered On: 03/18/2023 13:26 EDT Performed On: 03/18/2023 13:19 EDT by Ángela Nieves RN Intervention Information: hydromorphone Performed by Ángela Nieves RN on 03/18/2023 13:09:00 EDT hydromorphone,0.25mg IV Push,Left Hand,Severe Pain PRN Medication Response PRN Medication used for : Pain PRN Medication Effectiveness : Yes PRN Response Pain Scales : Numeric (8yrs & older) Numeric Pain Scale Age : Numeric (8yrs & older) Actual time of reassessment : Yes Ángela Nieves RN - 03/18/2023 13:25 EDT Numeric Pain Scale Numeric Pain Scale : 6 = Moderate Pain Numeric Pain Score : 6 Ángela Nieves RN - 03/18/2023 13:25 EDT [facility] Comment on above: Order Comment: maxim um 2 mg; Phase I PACU only; For pain level 7-10;potential SOUND ALIKE/LOOK ALIKE-verify med;CAUTION: Hydromorphone IV is 7 times more potent than morphine IV; Inpatient Patient Summaryon 03-18-2023 Inpatient Patient Summary [facility] Discharge Instructions [id number] [place] [address] (Patient Copy) Name: KARLENE TOM : 1980 Diagnosis: Allergies: LATEX allergy; Silvadene; Cipro Registration Date: 03/18/23 Current Date Time: 03/18/2023 13:25:07 Address: [address] [place] [id number] Phone: [phone] Primary Care Provider: Name: DESHAWN SHARMA SR Phone: [phone] Thank you for choosing [facility] for your care. You are very important to us. Our goal is to demonstrate our high quality medical care and provide you with a very good patient experience. You may receive a survey about our service. Please take the time to complete the survey and return it so we can continue to enhance our service. Thank you again for allowing [facility] to care for your medical needs. If you have any questions about your care or follow up information please contact your doctor. Follow-up Instructions With: Address: When: DOMINICK LOPES, Urology [address] [facility], 2nd floor [place] [id number] [facility] (1) In 2 weeks 04/01/2023 If you have had an intravenous catheter (IV) during your stay, keep the dressing dry and do not remove it from the site for at least 24 hours or as instructed by your provider to prevent problems. Medication Information Only Take The Medicines On This List. Keep This List and Bring It To Your Next Appointment. Medicines To Take At Home: Medicine Name (Generic Name) Amount to Take How to Take it How Often to Take it Additional Instructions Next Dose Due ibuprofen 200 mg oral tablet (ibuprofen = motrin, advil) 600 mg By Mouth THREE TIMES A DAY Take as needed for fever Macrobid 100 mg oral capsule * (nitrofurantoin) 100 mg By Mouth TWICE A DAY For 7 days Lyrica 75 mg oral capsule (pregabalin) 75 mg By Mouth THREE TIMES A DAY tiZANidine 4 mg oral tablet (tizanidine) 4 mg By Mouth TWICE A DAY Take as needed for Spasms traMADol 50 mg oral tablet (tramadol) 50 mg By Mouth THREE TIMES A DAY Take as needed Understanding your home medicine is important to keeping you healthy. If you are taking medications that are not on the preceding list, please call your doctor to see if you are to continue taking that medication. It is important that you do not skip or make up doses. If you are ordered an antibiotic, finish taking all the medicine unless your doctor tells you otherwise. Call your doctor if you have any questions or problems. Take the medicine list with you to all follow up appointments. Patient education materials, if any, will display below onabotulinumtoxinA (Botox) Pronunciation: ON a BOT ue LYE num TOX in A Brand: Botox, Botox Cosmetic What is the most important information I should know about Botox? The botulinum toxin contained in this medicine can spread to other body areas beyond where it was injected. This can cause serious life-threatening side effects. Call your doctor at once if you have a hoarse voice, drooping eyelids, vision problems, severe eye irritation, severe muscle weakness, loss of bladder control, or trouble breathing, talking, or swallowing. What is onabotulinumtoxinA (Botox)? Botox is used in adults to treat cervical dystonia (abnormal head position and neck pain). Botox is also used to treat muscle spasms and stiffness (spasticity) of the arms, hands, legs, and feet in adults and children at least 2 years old. This medicine will not treat spasticity caused by cerebral palsy. Botox is also used to treat certain eye muscle conditions caused by nerve disorders in adults and children who are at least 12 years old. This includes uncontrolled blinking or spasm of the eyelids, and a condition in which the eyes do not point in the same direction. Botox is also used in adults to treat overactive bladder and incontinence (urine leakage) that has not been helped by other medication. Botox may be used to treat incontinence caused by nerve disorders such as spinal cord injury or multiple sclerosis. Botox is also used to treat overactive bladder caused by a neurologic disorder (such as multiple sclerosis or spinal cord injury) in children at least 5 years old when other medicines cannot be used or have not worked. Botox is also used in adults to prevent chronic migraine headaches that occur more than 15 days per month and last 4 hours or longer. Botox should not be used to treat a common tension headache. Botox is also used to treat severe underarm sweating (hyperhidrosis) in adults. Botox Cosmetic is used to temporarily lessen the appearance of facial wrinkles in adults. Botox may also be used for purposes not listed in this medication guide. What should I discuss with my healthcare provider before I receive Botox? You should not be treated with Botox if you are allergic to botulinum toxin, or if you have: ? an infection in the a (more content not included)... [facility] OR Nursing Record - Main Becky n 03-18-2023 OR Nursing Record - Main OR OR Nursing Record - Main OR Summary Primary Physician: DOMINICK LOPES MD Finalized Date/Time: 03/18/23 13:05:52 Pt. Name: KARLENE TOM Joel Patel/Sex: 1980 Female Med Rec #: [id number] Physician: Financial #: [id number] Pt. Type: A Room/Bed: / Admit/Disch: 03/18/23 08:40:30 - Institution: Transport to OR - Main OR Entry 1 By Faustino Coyle RN, FORD Date/Time Leaving 03/18/23 12:14:00 FABY ACOSTA Siderails Up? Yes Report Received From Rosa Faye RN Last Modified By: Faustino Coyle RN 03/18/23 12:19:59 Case Times - Main OR Entry 1 Patient In Room Time 03/18/23 12:15:00 Out Room Time 03/18/23 12:59:00 Anesthesia Facility Times Induction Time 03/18/23 12:16:00 Stop Time 03/18/23 12:57:00 [place] Protocol Yes Completed Surgery Start Time 03/18/23 12:35:00 Stop Time 03/18/23 12:48:00 Last Modified By: Faustino Coyle RN 03/18/23 12:57:11 Surgical Procedures - Main OR Entry 1 Procedure Cystoscopy Modifiers None Surgeon Procedure CYSTOSCOPY, BOTOX Primary Procedure Yes Description INJECTION 200 UNITS Primary Surgeon DOMINICK LOPES MD Start 03/18/23 12:35:00 Stop 03/18/23 12:48:00 Anesthesia Type MAC Surgical Service SN - Urology Last Modified By: Faustino Coyle RN 03/18/23 12:48:36 Case Attendance - Main OR Entry 1 Entry 2 Entry 3 Case Attendee DOMINICK LOPES MD, DO, JASON L PRICE AA-C, PEPE Role Performed Surgeon Primary Anesthesiologist Primary Anesthesia Asst/DIRECTOR OF CORPORATE MARKETING Time In 03/18/23 12:15:00 03/18/23 12:15:00 03/18/23 12:15:00 Time Out 03/18/23 12:59:00 03/18/23 12:59:00 03/18/23 12:59:00 Procedure Cystoscopy(None) Cystoscopy(None) Cystoscopy(None) Last Modified By: Jonna WILEY, Faustino Coyle RN, Faustino Coyle RN, Faustino 03/18/23 12:57:13 03/18/23 12:57:13 03/18/23 12:57:13 Entry 4 Entry 5 Entry 6 Case Attendee Jonna WILEY, Faustino AGRAWAL PA-C, FABY Reilly RN, Elinor Role Performed Active Directory Systems Administrator Primary PA-C Primary Scrub Primary Time In 03/18/23 12:15:00 03/18/23 12:15:00 03/18/23 12:15:00 Time Out 03/18/23 12:59:00 03/18/23 12:59:00 03/18/23 12:59:00 Procedure Cystoscopy(None) Cystoscopy(None) Cystoscopy(None) Last Modified By: Jonna WILEY, Faustino Coyle RN, Faustino Coyle RN, Faustino 03/18/23 12:57:13 03/18/23 12:57:13 03/18/23 12:57:13 Entry 7 Case Attendee LILLI SANABRIA PA-C Role Performed PA-C Second Time In 03/18/23 12:15:00 Time Out 03/18/23 12:59:00 Procedure Cystoscopy(None) Last Modified By: Faustino Coyle RN 03/18/23 12:57:13 General Comments: VANCE JETER MD - FELLOW General Case Data - Main OR Entry 1 Case Information OR OR 13 Schedule Type Scheduled Case Level Level 4 Wound Class Dirty-Infected Specialty SN - Urology ASA Class 3 Procedure History Yes Documented Diagnosis Preop Diagnosis OAB, NEURO Postop Diagnosis OAB, NEURO Last Modified By: Faustino Coyle RN 03/18/23 12:46:16 Delays - Main OR Entry 1 Delay Reason Prior Case Delay Last Modified By: Faustino Coyle RN 03/18/23 12:26:16 Patient Positioning - Main OR Entry 1 Procedure Cystoscopy(None) Body Position Supine Left Arm Position Tucked and padded at Right Arm Position Extended on padded arm side board Left Leg Position Extended Right Leg Position Extended Feet Uncrossed? Yes Press Points Checked Yes By Faustino Coyle RN, FORD Positioning Devices SCDs Knee High, Pillow DAVE, FABY, LOCKE under Head, Safety AA-C, PEPE Strap, Padded Armboard Last Modified By: Faustino Coyle RN 03/18/23 12:34:40 Skin Prep - Main OR Entry 1 Procedure Cystoscopy(None) Prep Area PERINEUM Prep Agents Betadine Solution By FABY AGRAWAL PA-C Hair Removal Last Modified By: Faustino Coyle RN 03/18/23 12:57:34 Counts Verification - Main OR NOT APPLICABLE Entry 1 Last Modified By: Counts Action Taken - Main OR NOT APPLICABLE Entry 1 Surgeon Notified No Count Incorrect Last Modified By: Cautery - Main OR NOT APPLICABLE Entry 1 Last Modified By: Catheters, Drains, Tubes - Main OR NOT APPLICABLE Entry 1 Last Modified By: Medication Administration - Main OR Entry 1 Medication Other, See Comments Route of Intramuscular Administration Dose 200 units Volume 10 mL By DOMINICK LOPES MD Last Modified By: Faustino Coyle RN 03/18/23 12:48:31 General Comments: BOTOX 200 UNITS Cultures & Specimens - Main OR NOT APPLICABLE Entry 1 Last Modified By: Skin Assessment - Main OR Entry 1 Skin Integrity at Intact Skin Abnormality at No Incision Site: Incision Site: General/Overall WARM, DRY,AND INTACT Skin Integrity: Last Modified By: Faustino Coyle RN 03/18/23 12:50:42 Surgical Irrigation - Main OR Entry 1 Irrigant Saline Last Modified By: Faustino Coyle RN 03/18/23 12:50:46 Patient Care Devices - Main OR NOT APPLICABLE Entry 1 Last Modified By: Dressing/Packing - Main OR NOT APPLICABLE Entry 1 Last Modified By: Departure from OR - Main OR Entry (more content not included)... [facility] Operative Reporton Operative Report Date of Operation 03/18/2023 13:03 Indication for Surgery Refractory to medical therapy with urgency incontinence. Patient has counseled regarding the options for therapy. Patient decided to proceed with cystoscopy and Botox injection 200 units *Preoperative Diagnosis Neurogenic bladder with urgency incontinence *Postoperative Diagnosis Same Operative Procedure Cystoscopy and Botox injection 200 units Surgeon(s) DOMINICK LOPES MD (Surgeon Primary) Ferryboat Operator Cable FABY AGRAWAL PA-C (DAVE Primary) LILLI SANABRIA PA-C (DAVE Second) Indication for Script Developer Given the inherent complexity of this surgery, a second surgeon or a surgically skilled physician front office assistant was necessary for the successful completion of this entire operative procedure. The surgical services coordinator was present for the entire operative procedure and participated in all aspects of patient care This included transporting the patient to the operating room and entering room with the patient, assisting with preoperative positioning, first assisting throughout the entire surgical procedure by functioning as a second front office assistant surgeon, assisting with surgical closure, and finally accompanying the patient to recovery. 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 Patient has had Botox injection before. She has latex allergy. Patient was brought to the operating room. She was identified by name medical number date of . Prophylactic IV antibiotics was given. Patient underwent general esthesia. She was positioned in the lithotomy position with proper padding of pressure points. The genitalia was scrubbed and draped in usual fashion. The 21 Ethiopian cystoscope was atraumatically introduced into the bladder. Examination of bladder revealed significant trabeculation within the bladder wall. There was no stones. The Olympus needle was used for injection of 200 units of Botox that were diluted in 10 cc of injectable saline. We injected the Botox at 1 cc/inj. site. These were done in 10 random sites within the bladder including the trigone. Inspection of the injection site revealed no active bleeding. The cystoscope was removed. The patient was repositioned in supine position. She was awakened. She was transferred to postanesthesia care unit in good condition she tolerated procedure well. [facility] Tapper Operator Details- Texton 03-18-2023 Tapper Operator Details- Text Tapper Operator Details Entered On: 03/18/2023 8:37 EDT Performed On: 03/18/2023 9:30 EDT by Rosa Faye RN Tapper Operator Details Tapper Operator Details Review Status : Reviewed, no changes Rosa Faye RN - 03/18/2023 9:30 EDT Transport Mode Order Detail EV : Cart Isolation Precautions RTF : History and Physical by House Physician, 03/06/2023 13:57:00 EDT, 03/06/2023 13:57:00 EDT, Completed Isolation Precaution Order Detail EV : NONE IV Order Detail - EV : Yes Oxygen Order Detail EV : No Order Detail EV : No Pacemaker Order Detail : 0 Nurse Collects Blood Specimens : No Rosa Faye RN - 03/18/2023 8:36 EDT [facility] Outpatient Admission Data- T exton 03-18-2023 Outpatient Admission Data- Text Outpatient Admission Data Entered On: 03/18/2023 8:36 EDT Performed On: 03/18/2023 9:31 EDT by Rosa Faye RN OP Assessment Mental Status : Alert Oriented : Person, Place, Time Pupils Equal, Round, Reactive to Light, and Accommodation : Yes Pupil Size, Left : 2 mm Pupil Size, Right : 2 mm Heart : Regular Lungs : Clear Voided : Yes Pain Level and Site : 0 Person Driving Pt Home : SIG. OTHER Rosa Faye RN - 03/18/2023 9:30 EDT Mobility : Ambulatory Rosa Faye RN - 03/18/2023 8:36 EDT Present on Admission Medical Devices : None Medical Devices for Med Administration : None Rosa Faye RN - 03/18/2023 9:30 EDT [place] Coma Eye Opening Response [place] : Spontaneously Best Verbal Response Nikita : Oriented Best Motor Response Nikita : Obeys simple commands [place] Coma Score : 15 Rosa Faye RN - 03/18/2023 9:30 EDT Outpatient Fall Risk GEN_Fall Risk [id number] : Medications altering equilibrium or cognitive judgement, Other: SPINA BIFIDA Rosa Faye RN - 03/18/2023 9:31 EDT Fall Risk Band On : Yes Rosa Faye RN - 03/18/2023 9:30 EDT Screening-Safety Domestic Concerns : None Feeling Down, Depressed, Hopeless : Not at all Little Interest - Pleasure in Activities : Not at all Initial Depression Screen Score : 0 Depression Screening Score 0 : No Rosa Faye RN - 03/18/2023 9:30 EDT [facility] PACU Phase I - Main ORon PACU Phase I - Main OR PACU Phase I - Main OR Summary Primary Physician: DOMINICK LOPES MD Finalized Date/Time: 03/18/23 13:57:01 Pt. Name: NEGROKARLENE NIXON/Sex: 1980 Female Med Rec #: [id number] Physician: Financial #: [id number] Pt. Type: A Room/Bed: / Admit/Disch: 03/18/23 08:40:30 - Institution: PACU I - Case Times - Main OR Entry 1 In PACU I 03/18/23 13:00:00 Ready for Transfer 03/18/23 13:52:00 Last Modified By: Ángela Nieves RN 03/18/23 13:56:29 Finalized By: Ángela Nieves RN Document Signatures Signed By: Ángela Nieves RN 03/18/23 13:57 [facility] PACU Phase II - Main ORon PACU Phase II - Main OR PACU Phase II - Main OR Summary Primary Physician: DOMINICK LOPES MD Finalized Date/Time: 03/18/23 14:05:49 Pt. Name: KARLENE TOM/Sex: 1980 Female Med Rec #: [id number] Physician: Financial #: [id number] Pt. Type: A Room/Bed: / Admit/Disch: 03/18/23 08:40:30 - Institution: PACU II - Case Times - Main OR Entry 1 In PACU II 03/18/23 13:52:00 Ready for PACU II n/a Discharge Discharge from PACU 03/18/23 14:05:00 II Last Modified By: Ángela Salazar RN 03/18/23 14:05:39 Finalized By: Ángela Salazar RN Document Signatures Signed By: Ángela Salazar RN 03/18/23 14:05 [facility] Preop - Main ORon 03-18-2023 Preop - Main OR Preop - Main OR Summary Primary Physician: DOMINICK LOPES MD Finalized Date/Time: 03/18/23 12:29:01 Pt. Name: KARLENE TOM Joel Oden./Sex: 1980 Female Med Rec #: [id number] Physician: Financial #: [id number] Pt. Type: A Room/Bed: / Admit/Disch: 03/18/23 08:40:30 - Institution: Preop - Case Times - Main OR Entry 1 Patient Arrival Time 03/18/23 08:48:00 Patient Ready for 03/18/23 09:26:00 Surgery Report Given to Faustino Coyle RN Last Modified By: Rosa Faye RN 03/18/23 12:29:00 Finalized By: Rosa Faye RN Document Signatures Signed By: Rosa Faye RN 03/18/23 09:26 Rosa Faye RN 03/18/23 12:29 [facility] U TESTon 3 Test, U Negative [facility] Comment on above: Order Comment: Femal es: 10 and older Performed By: #### [id number] ####[facility] [id number] [place] [address] Medical Director: Jhon Landon MD U Preg Internal QC Present Normal [facility] Comment on above: Order Comment: Femal es: 10 and older Performed By: #### 1 [id number] ####[facility] [id number] [place] [address] Medical Director: Jhon Landon MD [place] Protocol/Pre-Proc TimeOut-Texton 03-18-2023 [place] Protocol/Pre-Proc TimeOut-Text [place] Protocol Entered On: 03/18/2023 8:37 EDT Performed On: 03/18/2023 9:32 EDT by Rosa Faye RN All Procedures Pre-Procedure Verification : Patient Identification (Name & Date), Informed Consent (Signed, Dated), Procedure Identified by Patient, Site Identified by Patient, Site Identification N/A Faustino Coyle RN - 03/18/2023 13:04 EDT Date/Time Pre-Procedure Verification : 03/18/2023 09:32 EDT Rosa Faye RN - 03/18/2023 9:32 EDT Procedure this U.P. is completed for: : CYSTOSCOPY, BOTOX INJECTION 200 UNITS Procedure Location : Surgery Rosa Faye RN - 03/18/2023 8:36 EDT Allergy (As Of: 03/18/2023 13:05:42 EDT) Allergies (Active) Cipro Estimated Onset Date: Unspecified ; Reactions: ITCHING ; Created By: Frannie Chakraborty RN; Reaction Status: Active ; Category: Drug ; Substance: Cipro ; Type: Allergy ; Updated By: Frannie Chakraborty RN; Reviewed Date: 03/18/2023 8:35 EDT LATEX allergy Estimated Onset Date: Unspecified ; Reactions: ANAPHYLAXIS ; Created By: Chantell Medel RPh; Reaction Status: Active ; Category: Other ; Substance: LATEX allergy ; Type: Allergy ; Updated By: Chantell Medel RPh; Reviewed Date: 03/18/2023 8:35 EDT Silvadene Estimated Onset Date: Unspecified ; Reactions: WORSENED LANDIS ; Created By: Frannie Chakarborty RN; Reaction Status: Active ; Category: Drug ; Substance: Silvadene ; Type: Allergy ; Updated By: Frannie Chakraborty RN; Reviewed Date: 03/18/2023 8:35 EDT Beta Lucila Beta Lucila History : Patient does not take a Beta Lucila Rosa Faye RN - 03/18/2023 8:36 EDT Site Marking Site Marking : Procedure is Exempt From Marking Site : PERINEUM Laterality [place] Protocol : N/A Site Verification Completed : By Provider, In Pre-op / Procedure Holding area Faustino Coyle RN - 03/18/2023 13:04 EDT Surgery / Sedation OR Procedure & Sedation Verification : History & Physical (within 30 days) Relevant Images : Relevant Images / Diagrams Properly Labeled & Displayed Relevant Diagnostic Tests : Relevant Diagnostic Tests Available Blood Products : N/A Implants / Equiment : N/A Correct Procedure : Accurate Procedure Consent Form, Correct Procedure Antibiotics : Administration of Antibiotics or Fluids for Irrigation Purpose Safety Precautions : Safety Precautions Based on Patient Medication or History Date/Time of OR Procedure Sedation Checklist : 03/18/2023 12:14 EDT Faustino Coyle RN - 03/18/2023 13:04 EDT Final Verification Date/Time : 03/18/2023 12:34 EDT Verification : Patient Identified (Name and Date), Correct Procedure, All Team Members are in Agreement Laterality : N/A Faustino Coyle RN - 03/18/2023 13:04 EDT Normal [facility] Preadmission Testing Progres s Noteon 03-09-2023 Preadmission Testing Progress Note Positive urine culture results with susceptibility report faxed to Dr. Lopes's office for review. Spoke with Dinora in Dr. Lopes's office to notify. Normal [facility] C URINEon 03-08-2023 C URINE [facility] [address] [place] [id number] Name: KARLENE TOM : 1980 Admitting Provider: Gender Female Financial [id number] : Number: [facility] n: Admit Date: Discharge Microbiology Date: PROCEDURE: C URINE SOURCE: CLEAN CATCH BODY SITE: COLLECTED DATE/TIME: 03/06/2023 13:57 EDT RECEIVED DATE/TIME: 03/06/2023 15:17 EDT START DATE/TIME: 03/06/2023 15:17 EDT FREE TEXT SOURCE: ORDERING PHYSICIAN: DOMINICK LOPES MD FINAL REPORTS Final Report [] Verified Date/Time: 03/08/2023 06:32 EDT >100,000 cfu/ml Klebsiella pneumoniae ssp pneumoniae SUSCEPTIBILITY RESULTS Klebsiella pneumoniae ssp pneumoniae Antibiotic DEEP Dil Amp/Sulbactam 4 Ampicillin 16 Aztreonam <=1 Cefazolin <=4 Ciprofloxacin <0.25 Gentamicin <=1 Nitrofurantoin 64 Piperacillin/Tazobact am <=4 Trimethoprim/Sulfamet hoxazole <=20 Klebsiella pneumoniae ssp pneumoniae Antibiotic DEEP Interp Amp/Sulbactam Susceptible Ampicillin Resistant Aztreonam Susceptible Cefazolin Susceptible ____ L=Low, H= High, *= Abnormal, C=Critical, f=Footnote, c=Corrected, i=Interp Data Name: KARLENE TOM Print 03/08/2023 06:32 EDT [facility] [id number] [place] [id number] Name: KARLENE TOM : 1980 Admitting Provider: Gender Female Financial [id number] : Number: [facility] n: Admit Date: Discharge Microbiology Date: SUSCEPTIBILITY RESULTS Klebsiella pneumoniae ssp pneumoniae Antibiotic DEEP Interp Ciprofloxacin Susceptible Gentamicin Susceptible Nitrofurantoin Intermediate Piperacillin/Tazobact am Susceptible Trimethoprim/Sulfamet hoxazole Susceptible ____ L=Low, H= High, *= Abnormal, C=Critical, f=Footnote, c=Corrected, i=Interp Data Name: KARLENE TOM Print 03/08/2023 06:32 EDT Date/Time: Normal [facility] Comment on above: Performed By: #### 1 [id number] ####[facility] [id number] [place] [id number] Medical Director: Jhon Landon MD Preadmission Testing Progres s Noteon 03-06-2023 Preadmission Testing Progress Note PREADMISSION TESTING (PAT) INSTRUCTION SHEET [ X] Bring your Surgery Guide with you on day of surgery [ X ] Read and complete your Discharge Planning Checklist [ X ] Take only highlighted medications on morning of surgery [ X ] Stop all vitamins and herbal supplements 7 days prior to surgery (unless otherwise instructed) [ X ] You will be asked to give urine specimen on arrival to surgery [ X ] Bring on day of surgery: [ X ] Advanced Directive (IF APPLICABLE) Normal [facility] BASIC METABOLIC PANELon 09-21 Anion gap [Moles/Vol] 6 mmol/L Low 10 - 20 [facility] Comment on above: Performed By: #### B MP #### [address] [address] Calcium [Mass/Vol] 8.8 mg/dL Normal 8.6 - 10.3 [facility] Comment on above: Performed By: #### B MP #### [address] [address] Chloride [Moles/Vol] 107 mmol/L Normal 98 - 107 [facility] Comment on above: Performed By: #### B MP #### [address] [address] Creatinine [Mass/Vol] 0.69 mg/dL Normal 0.50 - 1.05 [facility] Comment on above: Performed By: #### B MP #### [address] [address] eGFR FEMALE >90 Normal >90 [facility] Comment on above: Result Comment: CALC ULATIONS OF ESTIMATED GFR ARE PERFORMED USING THE 2020 CKD-EPI STUDY REFIT EQUATION WITHOUT THE RACE VARIABLE FOR THE IDMS-TRACEABLE CREATININE METHODS. https://jasn.asnjournals.org/content/early//ASN.069318 4563 Performed By: #### B MP #### [address] [address] Glucose [Mass/Vol] 100 mg/dL High 74 - 99 [facility] Comment on above: Performed By: #### B MP #### [address] [place] [address] HCO3 (Bld) [Moles/Vol] 30 mmol/L Normal 21 - 32 [facility] Comment on above: Performed By: #### B MP #### [address] [place] [address] Potassium [Moles/Vol] 4.0 mmol/L Normal 3.5 - 5.3 [facility] Comment on above: Performed By: #### B MP #### [address] [place] [address] Sodium [Moles/Vol] 139 mmol/L Normal 136 - 145 [facility] Comment on above: Performed By: #### B MP #### [address] [place] [address] Urea nitrogen [Mass/Vol] 13 mg/dL Normal 6 - 23 [facility] Comment on above: Performed By: #### B MP #### [address] [place] [address] CBCon 10-06-2022 Erythrocyte distribution width (RBC) [Ratio] 12.5 % Normal 11.5 - 14.5 [facility] Comment on above: Performed By: #### C BC #### [address] [place] [address] Hematocrit (Bld) [Volume fraction] 38.8 % Normal 36.0 - 46.0 [facility] Comment on above: Performed By: #### C BC #### [address] [place] [address] Hemoglobin (Bld) [Mass/Vol] 12.9 g/dL Normal 12.0 - 16.0 [facility] Comment on above: Performed By: #### C BC #### [address] [place] [address] MCHC (RBC) [Mass/Vol] 33.2 g/dL Normal 32.0 - 36.0 [facility] Comment on above: Performed By: #### C BC #### [address] [address] MCV (RBC) [Entitic vol] 88 fL Normal 80 - 100 [facility] Comment on above: Performed By: #### C BC #### [address] [address] NUCLEATED RBC 0.0 /100 WBC Normal 0.0 - 0.0 [facility] Comment on above: Performed By: #### C BC #### [address] [address] Platelets (Bld) [#/Vol] 233 10*3/uL Normal 150 - 450 [facility] Comment on above: Performed By: #### C BC #### [address] [address] RBC 4.40 x10E12/L Normal 4.00 - 5.20 [facility] Comment on above: Performed By: #### C BC #### [address] [address] WBC (Bld) [#/Vol] 6.6 10*3/uL Normal 4.4 - 11.3 [facility] Comment on above: Performed By: #### C BC #### [address] [address] HCG,URINEon 10-06-2022 Beta HCG ( test) Ql (U) Negative Normal Negative [facility] Comment on above: Performed By: #### H CGU #### [address] [address] Order Reconciliationon 10-06 Order Reconciliation Page 1 Discharge Reconciliation Document Reconciliation Type: Discharge requested on behalf of Soledad Cullen (Physician) done by Soledad Cullen ( (Fellow)) Discharge - Reconciliation: 06-Oct-2022 07:15 by: Soledad Cullen ( (Fellow)) Discharge - Reset to Incomplete: 06-Oct-2022 08:39 by: Soledad Cullen ( (Fellow)) Discharge - Reconciliation: 06-Oct-2022 08:40 by: Soledad Cullen ( (Fellow)) Home Medications EnteredHOME MEDICATIONS AT DISCHARGE DateReconciliation Comment/ Additional Information Lyrica 50 mg oral capsule 1 cap(s) orally 3 times a day 06-Oct-2022 06:59 Lyrica 50 mg oral capsule 1 cap(s) orally 3 times a day 06-Oct-2022 06:59 Lyrica 50 mg oral capsule is continued as Lyrica 50 mg oral capsule Lyrica 50 mg oral capsule orally 3 times a day 04-Dec-2021 11:34 Lyrica 50 mg oral capsule orally 3 times a day 04-Dec-2021 11:34 Lyrica 50 mg oral capsule is continued as Lyrica 50 mg oral capsule traMADol 50 mg oral tablet orally 3 times a day, As Needed 04-Dec-2021 11:34 traMADol 50 mg oral tablet orally 3 times a day, As Needed 04-Dec-2021 11:34 traMADol 50 mg oral tablet is continued as traMADol 50 mg oral tablet Current OrdersDateHOME MEDICATIONS AT DISCHARGE DateReconciliation Comment/ Additional Information Botulinum Toxin Type A Injectable (BOTOX)DOSE = 200 unit(s) IntraDermal Once 12-Sep-2022 15:15 Botulinum Toxin Type A Injectable is not required CEFAZOLIN D5W 2GM/100ML IVPB_IPRO SolutionGive 3,000 mg, IntraVenous, ONCE 06-Oct-2022 08:31 CEFAZOLIN D5W 2GM/100ML IVPB_IPRO is not required ceFAZolin 2 gram/ D5W 100 mL Premix IVPB (ANCEF)OnceRecommende d Infusion Time: 30 minute(s)Clinician Notes: x1 dose pre-op 12-Sep-2022 15:15 ceFAZolin 2 gram/ D5W 100 mL Premix IVPB is not required Dexamethasone 10 mg/mL 1 mL Vial PF_IPRO SolutionGive 4 mg, IntraVenous, ONCE 06-Oct-2022 08:31 Dexamethasone 10 mg/mL 1 mL Vial PF_IPRO is not required fentaNYL 0.05 mg/mL PF 2 mL Ampule_IPRO SolutionGive 100 microgram(s), IntraVenous, ONCE 06-Oct-2022 08:31 fentaNYL 0.05 mg/mL PF 2 mL Ampule_IPRO is not required Glycopyrrolate 0.2 mg/mL Inj 1 mL_IPRO SolutionGive 0.2 mg, IntraVenous, ONCE 06-Oct-2022 08:31 Glycopyrrolate 0.2 mg/mL Inj 1 mL_IPRO is not required Midazolam 1 mg/mL Inj 2 mL_IPRO SolutionGive 2 mg, IntraVenous, ONCE 06-Oct-2022 08:31 Midazolam 1 mg/mL Inj 2 mL_IPRO is not required Ondansetron 4 mg/2 mL Inj_IPRO SolutionGive 4 mg, IntraVenous, ONCE 06-Oct-2022 08:31 Ondansetron 4 mg/2 mL Inj_IPRO is not required Propofol 10 mg/mL 20 mL Inj_IPRO SolutionGive 200 mg, IntraVenous, ONCE 06-Oct-2022 08:31 Propofol 10 mg/mL 20 mL Inj_IPRO is not required Home Medications Added During Discharge Reconciliation Activity as Tolerated 06-Oct-2022, Routine, Assistance Level: None, Restrictions: None Activity as Tolerated 06-Oct-2022, Routine, Assistance Level: None, Restrictions: None, Limit your activities and rest today. Additional Patient Instructions Do not engage in sports, heavy work or lifting. Additional Patient Instructions Keep Surgical incision dry and clean. Call Physician For: excessive bleeding (slow general oozing that completely soaks dressing or fresh bright red bleeding) or bleeding that will not stop. Apply pressure to the area and elevate. Call Physician For: if the arm or leg operated on has a change in color, numbness or tingling coldness to the touch or excessive pain. Call Physician For: inability to urinate every 8-12 hours and your bladder becomes too full or painful. Call Physician For: persistant nausea and/or vomiting Over 24 hours Call Physician For: signs and sypmtoms of infection Increased redness or swelling at incision site, increased pain/tenderness at surgical site, increased temperature greater than 100 degress, increasing and/or progressive drainage from surgical site, and/or unusual odor from surgical site. Diet Regular Discharge Discharge Diagnosis< N32.81 Overactive bladder Discharge Provider, Dominick Lopes Discharge Disposition : .Home Condition at Discharge: Satisfactory Discharge Communication Instructions for Nursing Only: Remove IV prior to discharge from hospital. Do not remove any midline, if present, without an order from the provider. Discharge Instructions - PHR After your discharge from the hospital, two Summary of Care Documents will be available online in your Personal Health Record (PHR). 1.Consolidated-Clinic al Document Architecture (C-CDA) Patient Discharge Summary This document is a summary of your hospital stay to be kept for your reference.2.C-CDA Visit Summary This document is a summary of your hospital stay to be shared with your follow-up providers (doctor, rock crusher, physical therapist, etc.). Follow Up with Dr Lopes's office in 2-4 Weeks Macrobid 100 mg oral capsule 1 cap(s) orally 2 times a day May not drive or operate motor vehicles for 24 hours. May shower Post Proced (more content not included)... Normal [facility] Patient Profile - Preop v3on 10-06-2022 Patient Profile - Preop v3 Patient Profile - Preop: Initial Info: Patient DemographicsName: KARLENE TOM Date: 1980 Address: [address] [place] [address] Date/Time [id number] 06:29 Primary Phone [phone] How to be Addressedkathryn Spoken Language PreferredEnglish Source of Informationpatient Stated Reason for Admissioncysto with botox Primary Contact Name and NumberAlbert [phone] Medications Brought to Hospitalno General Health: Weight in kg125 kilogram(s) Weight in lhh020.5 pound(s) Weight Methodstated Height in feet5 feet Height in inches6.97 inch(es) Height in cm170.1 centimeter(s) Height Methodstated BMI (kg/m2)43.201 square meter Patient or Family Member Reaction to Anesthesiano previous reaction Blood Avoidance/Restriction snone Previous Transfusion Reactionnot applicable Health Mgmt: Symptoms/Conditions Managed at [facility] Are You no (1) Are You Currently Breastfeedingno Barriers to Managing Healthnone Relationship/Environ: Lives Withsignificant other Living Arrangementshouse Resource/Environmenta l Concernsnone [facility] Anticipated at Transitionnone Tobacco Use: Tobacco Useyes Tobacco Typecigarettes Last Tobacco [id number] Number of Packs per Day1 Additional Information: Information Review: Allergies, Home Meds and Significant Events have been Reviewed and Verified with Patient/Familyyes Allergy, Intolerance, Adverse Event: Allergies: Silvadene: Drug, Other, Active Latex: Latex, Anaphylaxis, Active Electronic Signatures: Lennox Boykin (RN) (Signed 06-Oct-2022 07:04) Authored: Initial Info, General Health, Health Mgmt, Relationship/Environ, Tobacco Use, Additional Information Last Updated: 06-Oct-2022 07:04 by Lennox Boykin (RN) References: 1. Data Referenced From History and Physical - Surgery > 30 days 06-Oct-2022 05:03 Normal [facility] CT LSPINE W CONon 08-26-[address]22 CT [address] LSPINE W CON INDICATION: 41 years old; Female.Epidural abscess Symptom/Location/Dura tion: History of spinal lead. TECHNIQUE: CT of the lumbar spine.Contrast 100 mL of Omnipaque 300 was injected intravenously without complication. sagittal and coronal images as well as axial reconstructions through the disc spaces were produced. 3-D reformats were created and reviewed for better evaluation of the lumbar spine alignment. Ionizing radiation dose reduced via iterative reconstruction/FBP blend and body size kV/mA adjustment. COMPARISON: CT of the abdomen and pelvis dated 02/06/2022. FINDINGS: POSTOPERATIVE CHANGES: Laminectomy present at the L4-L5 and L5-S1 levels. No gross evidence of fluid collection is seen, however the study cannot exclude the presence of a CSF leak. ALIGNMENT AND LORDOSIS: Normal lumbar lordosis. No subluxation. VERTEBRAE: No fracture or vertebral body collapse is seen. No bone displacement is seen. No lytic or blastic lesions. DISC LEVELS: L1-L2: No disc herniation. No spinal canal or foraminal narrowing. L2-L3: No disc herniation. No spinal canal or foraminal narrowing. L3-L4: No disc herniation. No spinal canal or foraminal narrowing. L4-L5: Postoperative changes with laminectomy. Postsurgical changes in the posterior paraspinal soft tissues. No fluid collection is seen. No pathologic enhancement is noted. L5-S1: Postoperative changes with laminectomy. Postsurgical changes in the posterior paraspinal soft tissues. No fluid collection is seen. LOWER THORACIC DISCS: Schmorl's node formation is seen at T10-T11, T11-T12, and T12-L1. No focal disc herniation or bulging is seen. OTHER: A fatty filum terminale is appreciated. The study does not adequately evaluate the distal cord and cannot exclude the presence of an epidural abscess. IMPRESSION: 1. Postoperative changes consistent with laminectomy at L4-L5 and L5-S1. Postoperative changes are seen. No focal fluid collection is seen. 2. No fracture or bony displacement. 3. Findings consistent with a fatty filum terminale. This study does not adequately evaluate the distal cord and cannot exclude the presence of an epidural abscess or CSF leak. A telephone call regarding the findings in examination was made to and acknowledged by Dr. Strong in the emergency department at 12:30 AM on 08/26/2022. Electronically authenticated by: DESIRAE KATZ Date: 2022-08-26 00:33 Normal [facility] ER URINE PROFILEon 2 Bilirubin Ql (U) Negative Normal NEGATIVE [facility] Comment on above: Performed By: #### U MICRO, ERUR #### [facility] [address] [place] [address] Dr. Mirtha Jimenez Clarity (U) CLEAR Normal CLEAR [facility] Comment on above: Performed By: #### U MICRO, ERUR #### [facility] [address] [place] [address] Dr. Mirtha Jimenez Color (U) LT. YELLOW Normal YELLOW [facility] Comment on above: Performed By: #### U MICRO, ERUR #### [facility] [address] [place] [address] Dr. Mirtha Jimenez ERUPRINCED A micrscopic examination will be performed if indicated. Normal [facility] Comment on above: Performed By: #### U MICRO, ERUR #### [facility] [address] [place] [address] Dr. Mirtha Jimenez Glucose Ql (U) Negative Normal NEGATIVE [facility] Comment on above: Performed By: #### U MICRO, ERUR #### [facility] [address] [place] [address] Dr. Mirtha Jimenez Hemoglobin Ql (U) TRACE-INTACT Abnormal NEGATIVE [facility] Comment on above: Performed By: #### U MICRO, ERUR #### [facility] [address] [place] [address] Dr. Mirtha Jimenez Ketones Ql (U) Negative Normal NEGATIVE [facility] Comment on above: Performed By: #### U MICRO, ERUR #### [facility] [address] [place] [address] Dr. Mirtha Jimenez LEUKOCYTES Negative Normal NEGATIVE [facility] Comment on above: Performed By: #### U MICRO, ERUR #### [facility] [address] [address] [address] Mirtha Jimenez Nitrite Ql (U) Negative Normal NEGATIVE [facility] Comment on above: Performed By: #### U MICRO, ERUR #### [facility] [address] [address] [address] Mirtha Jimenez pH (U) 7.0 [pH] Normal 5-9 [facility] Comment on above: Performed By: #### U MICRO, ERUR #### [facility] [address] [place] [address] Dr. Mirtha Jimenez SPEC GRAVITY 1.020 Normal 1.005-<=1.02 5 [facility] Comment on above: Performed By: #### U MICRO, ERUR #### [facility] [address] [place] [address] Dr. Mirtha Jimenez UA PROTEIN Negative Normal NEGATIVE/ TRACE [facility] Comment on above: Performed By: #### U MICRO, ERUR #### [facility] [address] [place] [address] Dr. Mirtha Jimenez UR MICRO IND INDICATED Normal [facility] Comment on above: Performed By: #### U MICRO, ERUR #### [facility] [address] [place] [address] Dr. Mirtha Jimenez Urobilinogen Qn (U) 0.2 {John'U}/dL Normal 0.2 - 1. 0 [facility] Comment on above: Performed By: #### U MICRO, ERUR #### [facility] [address] [place] [address] Dr. Mirtha Jimenez LACTATE/LACTIC ACIDon 2021 Lactate [Moles/Vol] 0.9 mmol/L Normal 0.4-1.9 [facility] Comment on above: Performed By: #### L ACT #### [facility] [address] [place] [address] Dr. Mirtha Jimenez URINE MICROSCOPIC ONLYon BACTERIA TRACE Abnormal NONE SEEN [facility] Comment on above: Performed By: #### D DIM #### [facility] [address] [place] [address] Dr. Mirtha Jimenez Bacteria identified Cx Nom (U) NOT INDICATED Normal [facility] Comment on above: Performed By: #### D DIM #### [facility] [address] [place] [address] Dr. Mirtha Jimenez CAST NONE SEEN Normal NONE SEEN [facility] Comment on above: Performed By: #### D DIM #### [facility] [address] [place] [address] Dr. Mirtha Jimenez Crystals LM Nom (Urine sed) NONE SEEN Normal NONE SEEN [facility] Comment on above: Performed By: #### D DIM #### [facility] [address] [place] [address] Dr. Mirtha Jimenez Epithelial cells LM Ql (Urine sed) FEW Abnormal NONE SEEN /RARE [facility] Comment on above: Performed By: #### D DIM #### [facility] [address] [place] [address] Dr. Mirtha Jimenez MUCOUS NONE SEEN Normal NONE SEEN [facility] Comment on above: Performed By: #### D DIM #### [facility] [address] [place] [address] Dr. Mirtha Jimenez RBC 2-5 Abnormal 0-2 [facility] Comment on above: Performed By: #### D DIM #### [facility] [facility] [address] [place] [address] Dr. Mirtha Jimenez WBC NONE SEEN Normal NONE SEEN [facility] Comment on above: Performed By: #### D DIM #### [facility] [address] [place] [address] Dr. Mirtha Jimenez BNPon 08-25-2022 Natriuretic peptide B (Bld) [Mass/Vol] 189.0 pg/mL Normal <=450.0 [facility] Comment on above: Performed By: #### C MP, HSTROPN, BNP #### [facility] [address] [address] [address] Mirtha Jimenez CBC AUTO DIFFon 08-25-2022 BASO # 0.0 103/ul Normal 0.0-0.1 [facility] Comment on above: Performed By: #### C BC #### [facility] [address] [address] [address] Mirtha Jimenez Basophils/100 WBC (Bld) 0.4 % Normal 0.2-2.0 [facility] Comment on above: Performed By: #### C BC #### [facility] [address] [address] [address] Mirtha Jimenez EO # 0.1 103/ul Normal 0.0-0.7 [facility] Comment on above: Performed By: #### C BC #### [facility] [address] [place] [address] Dr. Mirtha Jimenez Eosinophils/100 WBC (Bld) 1.4 % Normal 0.9-7.0 [facility] Comment on above: Performed By: #### C BC #### [facility] [address] [place] [address] Dr. Mirtha Jimenez Erythrocyte distribution width (RBC) [Ratio] 12.6 % Normal 11.0-15.0 [facility] Comment on above: Performed By: #### C BC #### [facility] [address] [place] [address] Dr. Mirtha Jimenez Hematocrit (Bld) [Volume fraction] 37.9 % Normal 36.0-48.0 [facility] Comment on above: Performed By: #### C BC #### [facility] [address] [place] [address] Dr. Mirtha Jimenez Hemoglobin (Bld) [Mass/Vol] 12.8 g/dL Normal 12.0-16.0 [facility] Comment on above: Performed By: #### C BC #### [facility] [address] [place] [address] Dr. Mirtha Jimenez IG # 0.07 10e3/ul Critically high 0.00-0.03 [facility] Comment on above: Performed By: #### C BC #### [facility] [address] [place] [address] Dr. Mirtha Jimenez IG % 1.0 % Critically high 0.0-0.5 [facility] Comment on above: Performed By: #### C BC #### [facility] [address] [address] [address] Mirtha Jimenez LYMPH # 0.4 103/ul Critically low 1.2-3.8 [facility] Comment on above: Performed By: #### C BC #### [facility] [address] [place] [address] Dr. Mirtha Jimenez Lymphocytes/100 WBC (Bld) 5.4 % Critically low 20.5-60.0 [facility] Comment on above: Performed By: #### C BC #### [facility] [address] [place] [address] Dr. Mirtha Jimenez MANUAL DIFF REQ NO Normal [facility] Comment on above: Performed By: #### C BC #### [facility] [address] [place] [address] Dr. Mirtha Jimenez MCH (RBC) [Entitic mass] 29.4 pg Normal 26.7-34.0 [facility] Comment on above: Performed By: #### C BC #### [facility] [address] [place] [address] Dr. Mirtha Jimenez MCHC (RBC) [Mass/Vol] 33.8 g/dL Normal 29.9-35.2 [facility] Comment on above: Performed By: #### C BC #### [facility] [address] [place] [address] Dr. Mirtha Jimenez MCV (RBC) [Entitic vol] 86.9 fL Normal 81.0-99.0 [facility] Comment on above: Performed By: #### C BC #### [facility] [address] [place] [address] Dr. Mirtha Jimenez MONO # 0.4 103/ul Normal 0.3-0.8 [facility] Comment on above: Performed By: #### C BC #### [facility] [address] [place] [address] Dr. Mirtha Jimenez Monocytes/100 WBC (Bld) 6.0 % Normal 1.7-12.0 [facility] Comment on above: Performed By: #### C BC #### [facility] [address] [place] [address] Dr. Mirtha Jimenez NEUT # 6.2 103/ul Normal 1.4-6.5 [facility] Comment on above: Performed By: #### C BC #### [facility] [address] [place] [address] Dr. Mirtha Jimenez Neutrophils/100 WBC (Bld) 85.8 % Critically high 43.0-75.0 [facility] Comment on above: Performed By: #### C BC #### [facility] [address] [place] [address] Dr. Mirtha Jimenez Platelet mean volume (Bld) [Entitic vol] 10.1 fL Normal 9.5-13.5 [facility] Comment on above: Performed By: #### C BC #### [facility] [address] [place] [address] Dr. Mirtha Jimenez PLT 190 103/ul Normal 150-450 [facility] Comment on above: Performed By: #### C BC #### [facility] [address] [place] [address] Dr. Mirtha Jimenez RBC 4.36 106/ul Normal 4.20-5.40 [facility] Comment on above: Performed By: #### C BC #### [facility] [address] [place] [address] Dr. Mirtha Jimenez WBC 7.2 103/ul Normal 4.0-11.0 [facility] Comment on above: Performed By: #### C BC #### [facility] [address] [place] [address] Dr. Mirtha Jimenez CULTURE BLOODon 08-25-2022 Microscopic examination of blood, culture Culture Observations: NO GROWTH AT 5 DAYS. Isolate 1 BC_BA_NA Normal [facility] Comment on above: Performed By: #### D DIM #### [facility] [address] [place] [address] Dr. Mirtha Jimenez Microscopic examination of blood, culture Culture Observations: NO GROWTH AT 5 DAYS. Normal [facility] Comment on above: Performed By: #### B LDCX1 #### [facility] [address] [place] [address] Dr. Mirtha Jimenez D-DIMERon 08-25-2022 D-DIMER 0.46 mg/L FEU Normal <=0.59 [facility] Comment on above: Performed By: #### D DIM #### [facility] [address] [place] [address] Dr. Mirtha Jimenez D-DIMER COMMENTS SEE BELOW Normal [facility] Comment on above: Result Comment: Incr eases in D-Dimer concentration observed with thromboembolic events can be variable due to localization, size, and age of the thrombus. Therefore, a thromboembolic event cannot be diagnosed with certainty on the basis of the reference range. D-Dimers may also be elevated for a variety of disorders including: advanced age, , coronary disease, cancer, liver disease, infection, inflammation, hematoma, DIC, trauma, post-surgery, diabetes, thrombolytic or anticoagulant therapy, stress, and generalized hospitalization. Performed By: #### D DIM #### [facility] [address] [place] [address] Dr. Mirtha Jimenez LACTATE/LACTIC ACIDon 2021 Lactate [Moles/Vol] 1.4 mmol/L Normal 0.4-1.9 [facility] Comment on above: Performed By: #### D DIM #### [facility] [address] [place] [address] Dr. Mirtha Jimenez PROF 14(COMP METB)on 022 Albumin [Mass/Vol] 3.3 g/dL Critically low 3.4-5.0 [facility] Comment on above: Performed By: #### C MP, HSTROPN, BNP #### [facility] [address] [place] [address] Dr. Mirtha Jimenez Albumin/Globulin [Mass ratio] 0.9 {ratio} Normal [facility] Comment on above: Performed By: #### C MP, HSTROPN, BNP #### [facility] [address] [place] [address] Dr. Mirtha Jimenez ALP [Catalytic activity/Vol] 75 U/L Normal 46-116 [facility] Comment on above: Performed By: #### C MP, HSTROPN, BNP #### [facility] [address] [place] [address] Dr. Mirtha Jimenez ALT [Catalytic activity/Vol] 20 U/L Normal 14-59 [facility] Comment on above: Performed By: #### C MP, HSTROPN, BNP #### [facility] [address] [place] [address] Dr. Mirtha Jimenez Anion gap [Moles/Vol] 9.7 mmol/L Normal [facility] Comment on above: Performed By: #### C MP, HSTROPN, BNP #### [facility] [address] [place] [address] Dr. Mirtha Jimenez AST [Catalytic activity/Vol] 18 U/L Normal 15-37 [facility] Comment on above: Performed By: #### C MP, HSTROPN, BNP #### [facility] [address] [place] [address] Dr. Mirtha Jimenez Bilirubin [Mass/Vol] 0.2 mg/dL Normal 0.2-1.0 [facility] Comment on above: Performed By: #### C MP, HSTROPN, BNP #### [facility] [address] [place] [address] Dr. Mirtha Jimenez Calcium [Mass/Vol] 8.6 mg/dL Normal 8.5-10.1 [facility] Comment on above: Performed By: #### C MP, HSTROPN, BNP #### [facility] [address] [place] [address] Dr. Mirtha Jimenez Chloride [Moles/Vol] 101 mmol/L Normal 98-107 [facility] Comment on above: Performed By: #### C MP, HSTROPN, BNP #### [facility] [address] [address] [address] Mirtha Jimenez CO2 [Moles/Vol] 27.6 mmol/L Normal 21.0-32.0 [facility] Comment on above: Performed By: #### C MP, HSTROPN, BNP #### [facility] [address] [place] [address] Dr. Mirtha Jimenez Creatinine [Mass/Vol] 0.68 mg/dL Normal 0.55-1.02 [facility] Comment on above: Performed By: #### C MP, HSTROPN, BNP #### [facility] [address] [place] [address] Dr. Mirtha Jimenez EGFR-AF PORTUGUESE >60 Normal >=60 [facility] Comment on above: Performed By: #### C MP, HSTROPN, BNP #### [facility] [address] [place] [address] Dr. Mirtha Jimenez EGFR-NON AF PORTUGUESE >60 Normal >=60 [facility] Comment on above: Performed By: #### C MP, HSTROPN, BNP #### [facility] [address] [place] [address] Dr. Mirtha Jimenez Globulin (S) [Mass/Vol] 3.8 g/dL Normal [facility] Comment on above: Performed By: #### C MP, HSTROPN, BNP #### [facility] [address] [place] [address] Dr. Mirtha Jimenez Glucose [Mass/Vol] 82 mg/dL Normal 74-106 [facility] Comment on above: Performed By: #### C MP, HSTROPN, BNP #### [facility] [address] [place] [address] Dr. Mirtha Jimenez Potassium [Moles/Vol] 4.3 mmol/L Normal 3.5-5.1 [facility] Comment on above: Performed By: #### C MP, HSTROPN, BNP #### [facility] [address] [place] [address] Dr. Mirtha Jimenez Protein [Mass/Vol] 7.1 g/dL Normal 6.4-8.2 [facility] Comment on above: Performed By: #### C MP, HSTROPN, BNP #### [facility] [address] [place] [address] Dr. Mirtha Jimenez Sodium [Moles/Vol] 134 mmol/L Critically low 136-145 [facility] Comment on above: Performed By: #### C MP, HSTROPN, BNP #### [facility] [address] [place] [address] Dr. Mirtha Jimenez Urea nitrogen [Mass/Vol] 13.0 mg/dL Normal 7.0-18.0 [facility] Comment on above: Performed By: #### C MP, HSTROPN, BNP #### [facility] [address] [place] [address] Dr. Mirtha Jimenez Urea nitrogen/Creatinine [Mass ratio] 19.1 mg/mg Normal [facility] Comment on above: Performed By: #### C MP, HSTROPN, BNP #### [facility] [address] [place] [address] Dr. Mirtha Jimenez RESPIRATORY PANEL PLUSon Adenovirus Not detected Normal NOT DETECTED [facility] Comment on above: Performed By: #### D DIM #### [facility] [address] [place] [address] Dr. Mirtha Yo. Parapertusis Not detected Normal NOT DETECTED [facility] Comment on above: Performed By: #### D DIM #### [facility] [address] [place] [address] Dr. Mirtha Jimenez B. Pertussis Not detected Normal NOT DETECTED [facility] Comment on above: Performed By: #### D DIM #### [facility] [address] [place] [address] Dr. Mirtha Jimenez Chlamydia Pneumoniae Not detected Normal NOT DETECTED [facility] Comment on above: Performed By: #### D DIM #### [facility] [address] [place] [address] Dr. Mirtha Jimenez Coronavirus 229E Not detected Normal NOT DETECTED [facility] Comment on above: Performed By: #### D DIM #### [facility] [address] [place] [address] Dr. Mirtha Jimenez Coronavirus HKU1 Not detected Normal NOT DETECTED [facility] Comment on above: Performed By: #### D DIM #### [facility] [address] [address] [address] Mirtha Jimenez Coronavirus NL63 Not detected Normal NOT DETECTED [facility] Comment on above: Performed By: #### D DIM #### [facility] [address] [place] [address] Dr. Mirtha Jimenez Coronavirus OC43 Not detected Normal NOT DETECTED [facility] Comment on above: Performed By: #### D DIM #### [facility] [address] [place] [address] Dr. Mirtha Jimenez Influenza A H1 2009 Not detected Normal NOT DETECTED [facility] Comment on above: Performed By: #### D DIM #### [facility] [address] [place] [address] Dr. Mirtha Jimenez Influenza A H3 Not detected Normal NOT DETECTED [facility] Comment on above: Performed By: #### D DIM #### [facility] [address] [place] [address] Dr. Mirtha Jimenez Influenza B Not detected Normal NOT DETECTED [facility] Comment on above: Performed By: #### D DIM #### [facility] [address] [place] [address] Dr. Mirtha Jimenez Metapneumovirus Not detected Normal NOT DETECTED [facility] Comment on above: Performed By: #### D DIM #### [facility] [address] [place] [address] Dr. Mirtha Jimenez Mycoplas. Pneumoniae Not detected Normal NOT DETECTED [facility] Comment on above: Performed By: #### D DIM #### [facility] [address] [place] [address] Dr. Mirtha Jimenez Parainfluenza 1 Not detected Normal NOT DETECTED [facility] Comment on above: Performed By: #### D DIM #### [facility] [address] [place] [address] Dr. Mirtha Jimenez Parainfluenza 2 Not detected Normal NOT DETECTED [facility] Comment on above: Performed By: #### D DIM #### [facility] [address] [address] [address] Mirtha Jimenez Parainfluenza 3 Not detected Normal NOT DETECTED [facility] Comment on above: Performed By: #### D DIM #### [facility] [address] [place] [address] Dr. Mirtha Jimenez Parainfluenza 4 Not detected Normal NOT DETECTED [facility] Comment on above: Performed By: #### D DIM #### [facility] [address] [place] [address] Dr. Mirtha Jimenez Rhino/Enterovirus Not detected Normal NOT DETECTED [facility] Comment on above: Performed By: #### D DIM #### [facility] [address] [place] [address] Dr. Mirtha Jimenez RP2 Header 1 RESPIRATORY PANEL: VIRUSES Normal [facility] Comment on above: Performed By: #### D DIM #### [facility] [address] [place] [address] Dr. Mirtha Jimenez RP2 Header 2 RESPIRATORY PANEL: BACTERIA Normal [facility] Comment on above: Performed By: #### D DIM #### [facility] [address] [place] [address] Dr. Mirtha Jimenez RSV Not detected Normal NOT DETECTED [facility] Comment on above: Performed By: #### D DIM #### [facility] [address] [place] [address] Dr. Mirtha Jimenez SARS-CoV-2 (COVID-19) RNA KAREN+probe Ql (Unsp spec) Detected Critically abnormal NOT DETECTED [facility] Comment on above: Performed By: #### D DIM #### [facility] [address] [place] [address] Dr. Mirtha Jimenez TROPONIN, HIGH SENSITIVITYon 08-25-2022 HSTROP 5.7 pg/mL Normal 4.0-51.3 [facility] Comment on above: Result Comment: CUT- OFF POINTS HAVE BEEN ESTABLISHED BASED ON THE FOURTH UNIVERSAL DEFINITIONS OF MYOCARDIAL INFARCTION. THE UPPER REFERENCE LIMIT (URL) OF TROPONIN, DEFINED THE 99TH PERCENTILE OF cTnI DISTRIBUTION IN A REFERENCE POPULATION, HAS BEEN CONFIRMED THE DECISION THRESHOLD FOR [place] DIAGNOSIS. Performed By: #### C MP, HSTROPN, BNP #### [facility] [address] [address] [address] Mirtha Jimenez XR CHEST 1 Von 08-25-2022 XR CHEST 1 V EXAM: XR CHEST 1 V HISTORY: CHEST PAIN, UNSPECIFIED COMPARISON(S): None. TECHNIQUE: Single portable AP chest radiograph FINDINGS: Support devices: None. Lungs/pleura: Lungs are clear. No pleural effusion or pneumothorax. Heart/mediastinum: Heart and mediastinum are normal. Bones/Soft Tissues: No acute osseous abnormality. Upper abdomen: Imaged upper abdomen is unremarkable. IMPRESSION: No evidence for acute cardiopulmonary disease. Electronically authenticated by: WAYNE ROBLES Date: 2022-08-25 21:00 Normal [facility] HCG ( test) IA.yesicai d Ql (U)Ordered By: Simone Warren on 06-10-2022 HCG ( test) Ql (U) Negative [facility] HCG,Urineon 06-10-2022 Beta HCG ( test) Ql (U) Negative Normal [facility] Comment on above: Result Comment: PERF ORMED BY: [place] [address] PATHOLOGIST MEDICAL ASSEMBLER MADI MASTERSON M.D. Performed By: #### U HCG #### [address] 06-10-2022 L - -------- Specimen: [id number] Received: 06/10/22 Status: RADU Jean Baptiste Num: [id number] Spec Type: Surgical Subm Dr: Simone Warren MD Tissues: A Colon - Polyp (SIGMOID COLON POLYP) Procedures: HE Stain/2, Gross/Micro L4 -------- Age/ Patient Sex Location Account Attending Physician -------- Karlene Tom 41/F [id number] Simone Warren MD -------- SPEC NUM: [id number] RECD: 06/10/22 STATUS: RADU JEAN BAPTISTE NUM: [id number] JOE: 06/10/[address] [facility] DR: Simone Warren MD ENTERED: 06/10/22 [facility] DR: MARY TYPE: Surgical DEPT: S ORDERED: HE Stain/2, Gross/Micro L4 ORDERED: HE Stain/2, Gross/Micro L4 Pathological Diagnosis Colon, sigmoid, polyp, polypectomy: Hyperplastic polyp. Clinical Information Rectal bleeding Gross Description Received in formalin labeled with the patient's name, number and sigmoid colon polyps are two fragments of soft tissue each measuring 0.4 cm. Entirely submitted in one cassette labeled A1. Microscopic Description One glass slides with H E stained material have been examined. Pathologist interpretation was performed at [facility]. The microscopic findings support the above pathologic diagnosis. CPT Codes 63008 -------- -------- Specimen: [id number] Received: 06/10/22 Status: RADU [place]an Num: [id number] Spec Type: Surgical Subm Dr: Simone Warren MD Tissues: A Colon - Polyp (SIGMOID COLON POLYP) Procedures: HE Stain/2, Gross/Micro L4 -------- Patient: Karlene Tom [id number] (Continued) -------- Signed (signature on file) Ira (Micky Snow MD 06/11/22 1832 [facility] COVID-19 Antigenon 2 COVID-19 Antigen Healthcare Worker?: N Reference Range: Negative Negative results, from patients with symptom onset beyond five days, should be treated as presumptive and confirmation with a molecular assay, if necessary, for patient management, may be performed. Negative results do not rule out COVID-19 and should not be used as the sole basis for treatment or patient management decisions, including infection control decisions. Negative results should be considered in the context of a patient's recent exposures, history and the presence of clinical signs and symptoms consistent with COVID-19. The Aimee SARS Antigen JIGNESH does not differentiate between SARS-CoV and SARS-CoV-2. This test was developed and its performance characteristic determined by [employer] and validated at [facility]. This test has not been FDA cleared or approved. This test has been authorized by FDA under an Emergency Use Authorization (EUA). This test has been validated in accordance with the FDA's Guidance Document (Policy for Diagnostics Testing in Laboratories Certified to Perform High Complexity Testing under CLIA prior to Emergency Use Authorization for Coronavirus Disease-2019 during the Public Health Emergency) issued on December 22, 2019. This test is only authorized for the duration of time the declaration that circumstances exist justifying the authorization of the emergency use of in vitro diagnostic tests for detection of SARS-CoV-2 virus and/or diagnosis of COVID-19 infection under section 564(b)(1) of the Act, 21 U.S.C. 360bbb-3(b)(1), unless the authorization is terminated or revoked sooner. SARS-CoV+SARS-CoV-2 (COVID-19) Ag [Presence] in Respiratory specimen by Rapid immunoassay Negative for SARS Antigen by JIGNESH PERFORMED BY: [facility] [address] [place] [address] PATHOLOGIST MEDICAL ASSEMBLER MADI MASTERSON M.D. [facility] Comment on above: Performed By: #### S ELIZABETH, COVID-19 AIMEE #### [address] COVID-19 SOFIAOrdered By: Annie Warren on 06-06-2022 SARS-CoV+SARS-CoV-2 (COVID-19) Ag IA.rapid Ql (Resp) Negative Negative [facility] Comment on above: This is a duplicate Aimee SARS Antigen (JIGNESH) result to be used for statistical tracking purpose only. No Panel InformationOrdered By: Simone Warren on 06-06-2022 SARS Antigen (LFIA) [facility] Aimee Ag Negativeon 06-06-20 22 Aimee Ag Negative Negative Normal Negative [facility] Comment on above: Result Comment: This is a duplicate Aimee SARS Antigen (JIGNESH) result to be used for statistical tracking purpose only. PERFORMED BY: [place] [id number] PATHOLOGIST MEDICAL ASSEMBLER MADI MASTERSON M.D. Performed By: #### S OFIANEG, COVID-19 AIMEE #### [address] Urinalysis - AUTOMATEDon Appearance (U) clear [employer] Other Bilirubin Ql (U) Negative [employer] Other Color (U) rust-yellow [employer] Other Glucose Ql (U) Negative [employer] Other Hemoglobin Ql (U) [employer] Other Ketones Ql (U) Negative [employer] Other Leukocyte esterase Test strip Ql (U) [employer] Other Nitrite Ql (U) Positive [employer] Other pH (U) 6.0 [pH] [employer] Other Protein Ql (U) Negative [employer] Other Specific gravity (U) [Rel density] 1.030 [employer] Other Urobilinogen (U) [Mass/Vol] 0.2 mg/dL [employer] Other Urinalysis - AUTOMATED [employer] Other Urine Cultureon 09-05-2021 Urine Culture >100,000 [employer] Other Urine Culture <16 [employer] Other Urine Culture >16 [employer] Other Urine Culture <4 [employer] Other Urine Culture 4 [employer] Other Urine Culture <2 [employer] Other Urine Culture <1 [employer] Other Urine Culture <0.5 [employer] Other Urine Culture <32 [employer] Other Urine Culture <2/38 [employer] Other C REACTIVE PROTEINon 020 CRP [Mass/Vol] 6.9 mg/L Normal 0.0-7.0 [facility] [facility] Comment on above: Performed By: #### 6 1405 #### [facility] [address] CBC W/DIFFon 05-23-2020 ABS BASOPHILS 0.0 10*3/uL Normal 0.0-0.2 [facility] Comment on above: Performed By: #### 5 0103, 40545 #### [facility] [address] ABS IMM GRANS 0.1 10*3/uL Normal 0.0-0.2 [facility] Comment on above: Performed By: #### 5 0103, 30147 #### [facility] [address] ABS NEUTROPHILS 5.7 10*3/uL Normal 1.6-7.6 The [facility] Comment on above: Performed By: #### 5 102, [id number] #### [facility] [address] [place] [address], [facility] Basophils/100 WBC (Bld) 0.4 % Normal 0.0-1.0 The [facility] Comment on above: Performed By: #### 5 102, 70150 #### [facility] [address] [place] [address], [facility] Eosinophils (Bld) [#/Vol] 0.1 10*3/uL Normal 0.0-0.5 [facility] Comment on above: Performed By: #### 5 102, 43243 #### [facility] [address] [place] [address], [facility] Eosinophils/100 WBC (Bld) 1.2 % Normal 0.0-6.0 [facility] Comment on above: Performed By: #### 5 102, 86073 #### [facility] [address] [facility] [facility] [address] Erythrocyte distribution width (RBC) [Ratio] 12.5 % Normal 11.5-15.0 [facility] Comment on above: Performed By: #### 5 102, 33388 #### [facility] [address] [facility] [place] [place] [address], [facility] Hematocrit (Bld) [Volume fraction] 43.2 % Normal 36.0-45.0 [facility] Comment on above: Performed By: #### 5 102, 51837 #### [facility] [address] [facility] [place] [address], [facility] Hemoglobin (Bld) [Mass/Vol] 14.7 g/dL Normal 12.0-15.0 [facility] Comment on above: Performed By: #### 5 102, 90262 #### [facility] [address] IMMATURE GRANS 0.7 % Normal 0.0-1.0 [facility] Comment on above: Performed By: #### 5 102, 01701 #### [facility] [address] [facility] [place] [address], [facility] Lymphocytes (Bld) [#/Vol] 1.8 10*3/uL Normal 1.2-4.0 [facility] Comment on above: Performed By: #### 5 102, 08130 #### [facility] [address] Lymphocytes/100 WBC (Bld) 22.0 % Normal 20.0-45.0 [facility] Comment on above: Performed By: #### 5 102, 72896 #### [facility] [address] MCH (RBC) [Entitic mass] 29.5 pg Normal 27.0-33.0 [facility] Comment on above: Performed By: #### 5 102, 62519 #### [facility] [address] MCHC (RBC) [Mass/Vol] 34.0 g/dL Normal 32.0-35.0 [facility] Comment on above: Performed By: #### 5 102, 83455 #### [facility] [address] [place] [address], [facility] MCV (RBC) [Entitic vol] 86.6 fL Normal 82.0-98.0 [facility] Comment on above: Performed By: #### 5 102, 16940 #### [facility] [address] [place] [address], [facility] Monocytes (Bld) [#/Vol] 0.4 10*3/uL Normal 0.1-1.0 [facility] Comment on above: Performed By: #### 5 102, 44421 #### [facility] [address] [place] [address], [facility] MONOS 5.3 % Normal 5.0-12.0 [facility] Comment on above: Performed By: #### 5 102, 84669 #### [facility] [address] [place] [address], [place] Neutrophils/100 WBC (Bld) 70.4 % Normal 40.0-72.0 [facility] Comment on above: Performed By: #### 5 102, 85963 #### [facility] [address] [place] [id number], [facility] Nucleated RBC/100 WBC (Bld) [Ratio] 0 % Normal 0-0 [facility] Comment on above: Performed By: #### 5 102, 98997 #### [facility] [address] [place] [id number], [place] PLAT CNT 273 10*3/uL Normal 150-400 The [facility] Comment on above: Performed By: #### 5 102, 26891 #### [facility] [address] [place] [id number], [facility] RBC (Bld) [#/Vol] 4.99 10*6/uL Normal 3.80-5.[address] [facility] Comment on above: Performed By: #### 5 102, 87354 #### [facility] [address] [place] [address], [place] WBC (Bld) [#/Vol] 8.12 10*3/uL Normal 4.00-10.[address] [facility] Comment on above: Performed By: #### 5 102, 65542 #### [facility] [address] [place] [address], [place] SEDIMENTATION RATEon 05-23-2 020 SED RATE 22 mm/hr High 0-20 [facility] Comment on above: Performed By: #### 5 0103, 89863 #### [facility] [address] ALLIED HEALTHon 12-22-2018 ALLIED HEALTH HNO ID: [id number] Author: Gene Delgado Mri Coordi Service: Radiology Author Type: ? Type: Allied Health Filed: 12/22/2018 2:11 PM Note Text: Radiology Service Progress Note PATIENT NAME: Karlene Tom DATE OF SERVICE: December 22, 2018 TIME: 2:11 PM PATIENT IDENTITY VERIFICATION COMPLETED USING TWO (2) METHODS: Patient confirmed name verbally and ID band matches.. PATIENT GENDER DATA: Female. status: : No status: NO. PATIENT RELEVANT IMPLANT DATA REVIEWED: Yes RADIOLOGY DEPARTMENT: MR; Exam(s) Completed: Spine: Lumbar spine PERIPHERAL IV DATA: Inpatient: see LDA documentation SIGNED BY: Gene Delgado Mri Coordi December 22, 2018 2:11 PM [facility] ALLIED HEALTH HNO ID: [id number] Author: Gene Delgado Mri Coordi Service: Radiology Author Type: ? Type: Allied Health Filed: 12/22/2018 1:03 PM Note Text: Radiology Service Progress Note PATIENT NAME: Karlene Tom DATE OF SERVICE: December 22, 2018 TIME: 1:00 PM PATIENT IDENTITY VERIFICATION COMPLETED USING TWO (2) METHODS: Patient confirmed name verbally and ID band matches.. PATIENT GENDER DATA: Female. status: : No status: NO. PATIENT RELEVANT IMPLANT DATA REVIEWED: Yes RADIOLOGY DEPARTMENT: MR; Exam(s) Completed: Head: Multiple Sclerosis Neck: Multiple Sclerosis PERIPHERAL IV DATA: Inpatient: see LDA documentation SIGNED BY: Gene Delgado Mri Coordi December 22, 2018 1:00 PM [facility] MRI CERVICAL SPINE WO IVCONo n 12-22-2018 MRI CERVICAL SPINE WO IVCON * * *Final Report* * * DATE OF EXAM: Dec 22 2018 1:50PM [facility] 0297 - MRI CERVICAL SPINE WO IVCON / PROCEDURE REASON: Spinal stenosis of cervical region * * * * Physician Interpretation * * * * EXAMINATION: MRI CERVICAL SPINE WO IVCON CLINICAL HISTORY: Spinal stenosis of cervical region. TECHNIQUE: Routine cervical spine MR protocol without gadolinium. MQ: [id number] COMPARISON: None. RESULT: Counting reference: Craniocervical junction. Anatomic Variants: None. Alignment: Alignment is anatomic. Craniocervical junction: Craniocervical junction is normal. Cord: The visualized cord is within normal limits of signal intensity and morphology. Bone marrow signal/fracture: No evidence of pathologic marrow infiltration. No evidence of prior fracture. Cervical soft tissues: There is a large mass in the region of the right thyroid gland (T1 axial image 40 series 6) measuring up to 3.5 cm. This is incompletely characterized on the current study with relatively heterogeneous signal including foci of T1 hyperintensity could represent calcification. The paraspinal soft tissues are otherwise within normal limits. C2-C3: Canal and foramina are patent. C3-C4: Canal and foramina are patent. C4-C5: Canal and foramina are patent. C5-C6: Canal and foramina are patent. C6-C7: Canal and foramina are patent. C7-T1: Canal and foramina are patent. IMPRESSION: No evidence of canal or foraminal stenosis. Right thyroid mass for which clinical follow-up and thyroid ultrasound are recommended. Anatomic Variant: None. Assume 7 cervical vertebrae with counting from the craniocervical junction. Mosaicist: [facility] Transcribe Date/Time: Dec 22 2018 1:56P Dictated by : LINDA BARRETT MD This examination was interpreted and the report reviewed and electronically signed by: LINDA BARRETT MD on Dec 22 2018 2:03PM EST [id number] N [facility] MRI LUMBAR SPINE WO/W IVCONo n 12-22-2018 MRI LUMBAR SPINE WO/W IVCON * * *Final Report* * * DATE OF EXAM: Dec 22 2018 2:20PM [facility] 0304 - MRI LUMBAR SPINE WO/W IVCON / PROCEDURE REASON: Encounter for observation for other suspected diseases and conditions ruled out * * * * Physician Interpretation * * * * EXAMINATION: MRI LUMBAR SPINE WO/W IVCON CLINICAL HISTORY: Encounter for observation for other suspected diseases and conditions ruled out. Tethered cord. TECHNIQUE: Routine lumbosacral spine MR protocol without and with gadolinium. MQ: [id number] Contrast: Dotarem. Contrast Dose: 20 cc Route of Administration: IV COMPARISON: 01/06/2018 and prior. RESULT: Counting reference: Lumbosacral junction. For the purposes of this report, L4-5 is considered the level of the iliac crest and assume there are 5 lumbar-type vertebrae. Anatomic variant: None. Alignment: Alignment is anatomic. Bone marrow signal/fracture: No evidence of pathologic marrow infiltration. Mild endplate degenerative change at L4-5. Postsurgical change from L4 and L5 laminectomy. Chronic Schmorl's nodes in the inferior thoracic spine. No evidence of acute fracture. Conus: Low-lying cord consistent with tethering, with distal contact of the dorsal dural margin at L5 level, stable in configuration with prior study. Prominent enhancement along the visualized cord secondary to serpiginous vascular structures greater ventrally extending inferiorly to the level of the sacrum. This is stable in appearance on the postcontrast sequence, more prominent on the T2 sequence however the current study was obtained at the higher field strength No evidence of intramedullary signal abnormality within the visualized cord. Paraspinal soft tissues: Scarring in the dorsal soft tissues without focal collection. Lower thoracic spine: Disc degeneration and mild disc bulge at T10-11. Visualized lower thoracic canal and foramina are patent. T12-L1: Canal and foramina are patent. L1-L2: Canal and foramina are patent. L2-L3: Canal and foramina are patent L3-L4: Canal and foramina are patent L4-L5: Disc bulge with a central annular fissure and small protrusion. No significant canal stenosis L5-S1: Canal and foramina are patent Sacrum and iliac wings: The visualized sacrum and iliac wings are within normal limits. IMPRESSION: Stable postsurgical changes in the lumbar spine with low-lying cord. Prominent vascular enhancement along the surface of the cord which is stable, cannot entirely exclude the presence of a dural AV fistula. Spinal MRA or catheter angiogram could be obtained if clinically indicated. No intramedullary spinal cord signal abnormality is identified. Mild lumbar degenerative changes at T10-11 and L4-5. No significant canal or foraminal stenosis. Anatomic Thoracic/Lumbar Variant: None. L4-5 is considered the level of the iliac crest and assume there are 5 lumbar-type vertebrae. Mosaicist: [facility] Transcribe Date/Time: Dec 22 2018 2:32P Dictated by : LINDA BARRETT MD This examination was interpreted and the report reviewed and electronically signed by: LINDA BARRETT MD on Dec 22 2018 2:48PM EST [id number] N [facility] NURSING PROGon 12-22-2018 Protein mass conc HNO ID: [id number] Author: Cici Mills (Rn) INEZ Friedman Service: Nursing Author Type: Registered Nurse Type: Nursing Progress Note Filed: 12/22/2018 1:11 PM Note Text: Radiology Service Progress Note PATIENT NAME: Karlene Tom DATE OF SERVICE: December 22, 2018 TIME: 1:10 PM PATIENT IDENTITY VERIFICATION COMPLETED USING TWO (2) METHODS: Patient confirmed name verbally and Date of . PATIENT GENDER DATA: Female. status: : No status: NO. PATIENT RELEVANT IMPLANT DATA REVIEWED: Yes ALLERGIES: Reviewed and unchanged MEDICATIONS REVIEWED: NO PROCEDURE: MRI IV SITE: Ambulatory: A peripheral IV was started in the Right antecubital site with a Angio cath: 22 gauge. diffusics PERIPHERAL IV ACCESS: Discontinued PATIENT TOLERATED PROCEDURE: Without incident. PATIENT DISCHARGED TO: Home/Self Care SIGNED BY: Cici Friedman RN December 22, 2018 1:10 PM [facility] MRI LUMBAR SPINE WO/W IVCONo n 01-06-2018 MRI LUMBAR SPINE WO/W IVCON * * *Final Report* * * DATE OF EXAM: Jan 06 2018 5:26PM [facility] 0304 - MRI LUMBAR SPINE WO/W IVCON / PROCEDURE REASON: TETHERED CORD * * * * Physician Interpretation * * * * EXAMINATION: MRI LUMBAR SPINE WO/W IVCON HISTORY: TETHERED CORD TECHNIQUE: Routine lumbosacral spine MR protocol without gadolinium. MQ: [id number] COMPARISON: MRI lumbar 04/29/2017 and prior RESULT: Counting reference: Lumbosacral junction. For the purposes of this report the last well-formed intervertebral disc is considered L5-S1. Alignment: Thoracolumbar levocurvature apex left at L1. Bone marrow signal/fracture: Mild endplate degenerative changes at L4-5 to the left of midline. Postsurgical changes from laminectomy at L4 and L5 in the interval. No evidence of pathologic marrow infiltration. No evidence of acute fracture. Small chronic Schmorl's node deformities in the lower thoracic spine. Conus: Low-lying conus which is overall similar in configuration of the prior study. The cord contacts the dorsal dural margin at L5 laminectomy level. The sacral region is not completely imaged on this study.. The previously visualized sacral canal lipoma is not imaged on this examination. However there is now identification of prominent vascular enhancement along the ventral surface of the cord and tortuous vascular enhancement along the dorsal surface of the cord at the lower thoracic level (image 9 series 9). Paraspinal soft tissues: Mild scarring and dorsal soft tissues, without a focal fluid collection. T10-11: Disc bulge and central protrusion at T10-11 with slight effacement of the ventral thecal sac and ventral cord flattening. Moderate right and mild left neural foraminal narrowing secondary to endplate and facet hypertrophy. T11-12: Canal and foramina are patent. T12-L1: Canal and foramina are patent. L1-L2: Canal and foramina are patent. L2-L3: Canal and foramina are patent L3-L4: Canal and foramina are patent L4-L5: Disc degeneration and a mild disc bulge. L5-S1: Canal and foramina are patent Sacrum and iliac wings: The visualized sacrum and iliac wings are within normal limits. IMPRESSION: Postsurgical change from L4-L5 laminectomy for release of tethered cord, with grossly stable configuration compared with 04/29/2017, noting that the sacral canal is incompletely imaged on this exam. Prominent vascular enhancement is visualized along the surface of the cord and conus as described, which is indeterminate as the prior MR lumbar imaging did not include could postcontrast imaging. However a dural AV fistula would be difficult to exclude. No significant spinal cord signal abnormality. Degenerative disc change with abutment of the ventral cord at T10-11. Mosaicist: [facility] Transcribe Date/Time: Jan 06 2018 7:13P Dictated by : LINDA BARRETT MD This examination was interpreted and the report reviewed and electronically signed by: LINDA BARRETT MD on Jan 06 2018 7:29PM EST [id number] N [facility] NURSING PROGon 01-06-2018 Protein mass conc HNO ID: [id number] Author: Cici Mills (Rn) INEZ Friedman Service: PICC Team Author Type: Registered Nurse Type: Nursing Progress Note Filed: 01/06/2018 4:36 PM Note Text: Radiology Service Progress Note PATIENT NAME: Karlene Tom DATE OF SERVICE: January 06, 2018 TIME: 4:35 PM PATIENT IDENTITY VERIFICATION COMPLETED USING TWO (2) METHODS: Patient confirmed name verbally and Date of . PATIENT GENDER DATA: Female. status: : No status: NO. PATIENT RELEVANT IMPLANT DATA REVIEWED: Yes ALLERGIES: Reviewed and unchanged MEDICATIONS REVIEWED: YES PROCEDURE: MRI IV SITE: Ambulatory: A peripheral IV was started in the Left forearm with a Angio cath: 22 gauge.diffusics with ultrasound guidance PERIPHERAL IV ACCESS: Discontinued PATIENT TOLERATED PROCEDURE: Without incident. PATIENT DISCHARGED TO: Home/Self Care SIGNED BY: Cici Friedman RN January 06, 2018 4:35 PM [facility] Vital Signs Date Time Vital Sign Value Performing Clinician Facility 05-18-2023 21:16-0400 Diastolic blood pressure 60 mm[Hg] SENSITIZER-BC Shon Shammo Work Phone: [facility] 05-18-2023 21:16-0400 Heart rate 70 /min SENSITIZER-BC Shon Shammo Work Phone: [facility] 05-18-2023 21:16-0400 Respiratory rate 18 /min SENSITIZER-BC Shon Shammo Work Phone: [facility] 05-18-2023 21:16-0400 SaO2% (BldA) [Mass fraction] 100 % SENSITIZER-BC Shon Shammo Work Phone: [facility] 05-18-2023 21:16-0400 Systolic blood pressure 112 mm[Hg] SENSITIZER-BC Shon Shammo Work Phone: [facility] 05-18-2023 17:39-0400 Body height 170.18 cm SENSITIZER-BC Shon Shammo Work Phone: [facility] 05-18-2023 17:39-0400 Body temperature 98.9 [degF] SENSITIZER-BC Shon Shammo Work Phone: [facility] 05-18-2023 17:39-0400 Body weight 126.4 kg SENSITIZER-BC Shon Shammo Work Phone: [facility] 06-10-2022 08:52-0400 Diastolic blood pressure 67 mm[Hg] MD Liya Peña Work Phone: [facility] 06-10-2022 08:52-0400 Heart rate 60 /min MD Liya Peña Work Phone: [facility] 06-10-2022 08:52-0400 Respiratory rate 18 /min MD Liya Peña Work Phone: [facility] 06-10-2022 08:52-0400 SaO2% (BldA) [Mass fraction] 100 % MD Liya Peña Work Phone: [facility] 06-10-2022 08:52-0400 Systolic blood pressure 107 mm[Hg] MD Liya Peña Work Phone: [facility] 06-10-2022 07:34-0400 Body height 172.72 cm MD Liya Peña Work Phone: [facility] 06-10-2022 07:34-0400 Body temperature 98.6 [degF] MD Liya Peña Work Phone: [facility] 06-10-2022 07:34-0400 Body weight 120.2 kg MD Liya Peña Work Phone: [facility] 09-05-2021 10:50-0500 Body height 172.72 cm Astrid Myers Other [facility] Other 09-05-2021 10:50-0500 Body mass index (BMI) [Ratio] 39.38 kg/m2 Astrid Myers Other [facility] Other 09-05-2021 10:50-0500 Body temperature 97.7 [degF] Astrid Myers Other [facility] Other 09-05-2021 10:50-0500 Body weight 117.48 kg Astrid Myers Other [facility] Other 09-05-2021 10:50-0500 Diastolic blood pressure 69 mm[Hg] Astrid Myers Other [facility] Other 09-05-2021 10:50-0500 Respiratory rate 18 /min Astrid Myers Other [facility] Other 09-05-2021 10:50-0500 SaO2% (BldA) [Mass fraction] 100 % Astrid Myers Other [facility] Other 09-05-2021 10:50-0500 Systolic blood pressure 143 mm[Hg] Astrid Myers Other [facility] Other Encounters Encounter Date Encounter Type Care Provider Facility Start: 05-18-2023 End: 05-18-2023 Emergency department patient visit [facility] Facility:[facility] Start: 05-18-2023 End: 05-18-2023 Emergency department patient visit SENSITIZER- Shon Mominky Work Phone: [facility]-Emergency [facility] Work Phone: Start: 03-18-2023 End: 03-19-2023 ambulatory DOMINICK LOPES MD Facility:[id number] Start: 02-16-2023 End: 02-16-2023 ambulatory ELIUD LEIVA . Facility:[facility] Start: 10-06-2022 End: 10-06-[address] Deshawn Sharma Facility:[id number] Start: 08-25-2022 End: 08-26-[address] DENISSE STRONG . Facility:[facility] Start: 08-07-2022 End: 08-07-2022 ambulatory Deshawn Sharma Facility:[facility] Start: 08-07-2022 End: 08-07-2022 ambulatory DO Deshawn Sharma Work Phone: [facility] Work Phone: Start: 08-07-2022 End: 08-07-2022 Discharged Recurring DO Deshawn Sharma Work Phone: [facility]-Physical Therapy [place] Start: 06-10-2022 End: 06-10-2022 ambulatory Simone Warren Facility:[facility] Start: 06-10-2022 End: 06-10-2022 Admission to same day surgery center MD Liya Peña Work Phone: [facility]-Digestive Health Start: 06-06-2022 End: 06-06-2022 ambulatory Simone Warren Facility:[facility] Start: 06-06-2022 End: 06-06-2022 Patient encounter procedure MD Liya Peña Work Phone: [facility]-Pre-Surgical Testing Start: 05-29-2022 Registered Recurring MD Liya vanegas Work Phone: [facility]-Physical Therapy [place] Start: 09-05-2021 End: 09-05-2021 ambulatory Astrid Myers Other [facility] Other Start: 09-05-2021 Office outpatient visit 15 minutes Astrid Myers [facility] Start: 12-22-2018 Patient encounter procedure VANCE FERRO-Luba) [facility] Start: 01-06-2018 [facility] Procedures Date Procedure Procedure Detail Performing Clinician Start: 05-18-2023 CT of head without contrast SENSITIZER-BC Shon Angel Work Phone: Start: 06-10-2022 Diagnostic endoscopi c examination on colon MD Liya Peña Work Phone: Start: 09-05-2021 Piperacillin/tazobactam Astrid Myers Other SARS Antigen (LFIA) MD Liya Peña Work Phone: Plan of Treatment Date Care Activity Detail Author Start: 06-10-2022 [facility] Work Phone: Patient Education [facility] Work Phone: Patient referral [facility] Work Phone: Payers Date Payer Category Payer Self-pay [id number] 2008 Unknown 1979 Unknown [id number] 2.16.8 [id number] 1979 Unknown [id number] 2.16.84 [id number] 1979 Unknown [id number] 2.16.84 [id number] 1979 Unknown [id number] 2.16.8 [id number] 1959 Unknown [id number] 2.1 [id number] 1959 Unknown [id number] Unknown [id number] 2.16.8 [id number] Unknown [id number] 2.16.8 [id number] Unknown [id number] 2.16.8 [id number] Unknown [id number] 2.16.8 [id number] Social History Date Type Detail Facility Unknown if ever smoked [facility] Other Sex Assigned At Sex Assigned At Bir th [facility] Other Start: 06-10-2022 End: 06-10-2022 Tobacco smoking status NHIS Smoker (finding) [facility] Start: 1980 Sex Assigned At Female F [facility] Start: 05-18-2023 Tobacco smoking status NHIS Current some day smoker [facility] Goals Date Patient Goal Desired Activity /State Clinical Notes 11-17-2020 to 03-18-2023 Note Date & Type Note Facility 03-18-2023 Note Patient Education [facility] Adult Home Going Instructions Following Surgery with Anesthesia After surgery you will be allowed to go home when you are awake, stable, taking fluids well, and without complications. The anesthesia medications used during surgery may cause you to feel dizzy, weak, or drowsy for up to 24 hours. For your safety, during the first 24 hours following an anesthetic: ? Have a responsible adult with you ? DO NOT drive a car, operate machinery, or use power tools ? DO NOT take public transportation if you are alone ? DO NOT drink alcohol, including beer or wine ? DO NOT sign important papers or make important decisions ? DO NOT take medication that has not been prescribed by your care provider ? Only take grgz-[id number]-lfobfiw or prescription medications as directed ? Slowly resume diet ? Activity as directed by your surgeon ? Use extra care climbing stairs or walking with crutches If you have questions or problems that seem to be related to the anesthetic, call the hospital at [phone] and ask for the WELT SEWER cardiovascular technologist or anesthesiologist. Thank you for the privilege and opportunity to participate in your care. We wish you good health, Your Anesthesia Team General Information & when to contact the surgeon: ? If you experience nausea and vomiting, eat clear soups, mild foods, and liquids for up to 12-48 hours until symptoms of nausea and vomiting are gone. Do not smoke. Call the surgeon for uncontrolled nausea and vomiting. ? Pain does not mean that something is wrong, or the surgery did not go well. Do not wait until the pain gets bad to start taking pain medication. Increase activity each day as directed by surgeon as this increases blood flow to promote healing. Take short walks, rest when feeling tired. Do not move quickly or lift anything heavy until you feel better. Call the surgeon if pain gets worse or is not controlled by the medicine. ? Perform coughing and deep breathing while splinting your incision as demonstrated by your nurse. This will prevent pneumonia. ? Drink throughout the day and avoid alcohol or excessive caffeine to prevent difficulty urinating. If you cannot urinate for 8 hours or if it becomes painful, contact the surgeon as soon as possible. ? It is common to have some minor bleeding, however, if you have bleeding that starts again, gets worse such as soaking bandages over 2-4 hours, call the surgeon as soon as possible. If uncontrollable, call 911. ? Contact the surgeon as soon as possible or seek medical attention with signs of infection that include fever of 101 F (38 C), increased pain, swelling, warmth or redness in the surgical area, red streaks leading from the area, pus or foul-smelling drainage coming from the wound. IF AN EMERGENCY DEVELOPS AND YOU ARE UNABLE TO REACH YOUR DOCTOR, GO TO THE NEAREST EMERGENCY DEPARTMENT OR CALL 911. SEEK IMMEDIATE MEDICAL CARE IF YOU: ? Develop a rash ? Have difficulty breathing ? Have chest pain Think you are having an allergic reaction Rev: 2020__ Labs, Tests and X-Rays Cystoscopy: What to Expect at Home Your Recovery A cystoscopy is a procedure that lets a doctor look inside of the bladder and the urethra. The urethra is the tube that carries urine from the bladder to outside the body. The doctor uses a thin, lighted tool called a cystoscope. Your bladder is filled with fluid. This stretches the bladder so that your doctor can look closely at the inside of your bladder. After the cystoscopy, your urethra may be sore at first, and it may burn when you urinate for the first few days after the procedure. You may feel the need to urinate more often, and your urine may be pink. These symptoms should get better in 1 or 2 days. You will probably be able to go back to most of your usual activities in 1 or 2 days. This care sheet gives you a general idea about how long it will take for you to recover. But each person recovers at a different pace. Follow the steps below to get better as quickly as possible. How can you care for yourself at home? Activity ? Rest when you feel tired. Getting enough sleep will help you recover. ? Try to walk each day. Start by walking a little more than you did the day before. Bit by bit, increase the amount you walk. Walking boosts blood flow and helps prevent pneumonia and constipation. ? Avoid strenuous activities, such as bicycle riding, jogging, weight lifting, or aerobic exercise, until your doctor says it is okay. ? Ask your doctor when you can drive again. ? Most people are able to return to work within 1 or 2 days after the procedure. ? You may shower and take baths as usual. ? Ask your doctor when it is okay for you to have sex. Diet ? You can eat your normal diet. If your stomach is upset, try bland, low-fat foods like plain rice, broiled chicken, toast, and yogurt. ? Drink plenty of fluids (unless your doctor tells you not to). (more content not included)... [facility] 03-18-2023 Note REYNALDO Education Entere d On: 03/18/2023 8:36 EDT Performed On: 03/18/2023 9:31 EDT by Rosa Faye RN General / Required Barriers to Learning : None evident Rosa Faye RN - 03/18/2023 9:31 EDT TeachBack Methodology : TeachBack, Explanation Rosa Faye RN - 03/18/2023 8:36 EDT Education Nursing General Required GRID Call Light Use : Verbalizes understanding Discharge Plan : Verbalizes understanding Fall Risk : Verbalizes understanding Orientation to Unit/Room : Verbalizes understanding Pain Management : Verbalizes understanding Plan of Care : Verbalizes understanding Safety : Verbalizes understanding Speakup : Verbalizes understanding Rosa Faye RN - 03/18/2023 8:36 EDT [facility] 03-18-[address] Entered On: 03/06/2023 14:00 EDT Performed On: 03/18/2023 9:28 EDT by Frannie Chakraborty RN Infection Screening Discharge from Other Facility in past 4 weeks : No Travel outside US within past 30 days : No History of Recent Diarrhea : No Concern possible Infectious Disease : No Exposure AND/OR close contact with a person under investigation or laboratory-confirmed COVID-19 individual within 14 days of symptom onset AND/OR any of the following: : No Do you live/work in a high risk situation (congregated living, hemodialysis, infusion clinic, retirement, assisted living, group home, homeless intermediate, etc.)? : No Rosa Faye RN - 03/18/2023 9:28 EDT Last Physical Overnight Location of the Patient : Personal Residence Rosa Faye RN - 03/18/2023 8:34 EDT Checklist NPO Since : 03/18/2023 00:01 EDT Rosa Faye RN - 03/18/2023 9:28 EDT Valuables Prechecklist Grid Valuables with Patient Clothes : Pants, Shirt, Shoes, Undergarments Personal Items : Cell phone Comment (Comment: BELONGINGS TO LOCKER [Rosa Faye RN - 03/18/2023 9:28 EDT] ) Rosa Faye RN - 03/18/2023 9:28 EDT Procedure Location : Surgery Rosa Faye RN - 03/18/2023 8:34 EDT Surgery Prep Grid CHG Cloth Prep in REYNALDO : N/A Makeup and Jewelry Removed : Yes Nail Wolof Removed : Yes Wearing Patient Gown/Street Clothes Removed : Yes Rosa Faye RN - 03/18/2023 8:34 EDT Patient Rights Grid Anesthesia Consent Signed : Yes (Comment: PER ANESTHESIA [Rosa Faye RN - 03/18/2023 8:34 EDT] ) Surgical Consent Signed : Yes Frannie Chakraborty RN - 03/18/2023 8:34 EDT Procedure Checklist is completed for: : CYSTOSCOPY, BOTOX INJECTION 200 UNITS Frannie Chakraborty RN - 03/06/2023 13:59 EDT Allergy (As Of: 03/18/2023 09:30:01 EDT) Allergies (Active) Cipro Estimated Onset Date: Unspecified ; Reactions: ITCHING ; Created By: Frannie Chakraborty RN; Reaction Status: Active ; Category: Drug ; Substance: Cipro ; Type: Allergy ; Updated By: Frannie Chakraborty RN; Reviewed Date: 03/18/2023 8:35 EDT LATEX allergy Estimated Onset Date: Unspecified ; Reactions: ANAPHYLAXIS ; Created By: Chantell Medel RPh; Reaction Status: Active ; Category: Other ; Substance: LATEX allergy ; Type: Allergy ; Updated By: Chantell Medel RPh; Reviewed Date: 03/18/2023 8:35 EDT Silvadene Estimated Onset Date: Unspecified ; Reactions: WORSENED LANDIS ; Created By: Frannie Chakraborty RN; Reaction Status: Active ; Category: Drug ; Substance: Silvadene ; Type: Allergy ; Updated By: Frannie Chakraborty RN; Reviewed Date: 03/18/2023 8:35 EDT Beta Lucila Beta Lucila History : Patient does not take a Beta Lucila Rosa Faye RN - 03/18/2023 8:34 EDT Protocols Patient Safety Grid ID Band on and Verified : Yes Rosa Faye RN - 03/18/2023 9:28 EDT Allergy Assembler Camper : Yes Fall Risk Assembler Camper : Yes Review of Labs : Yes HCG / UPREG : Yes (Comment: ON ADMIT [Frannie Chakraborty RN - 03/06/2023 13:59 EDT] ) Frannie Chakraborty RN - 03/18/2023 8:34 EDT Current H&P in Medical Record : Yes Siri Dwyer RN - 03/16/2023 8:32 EDT Urine C&S : Yes (Comment: FAXED & CALLED TO SURGEON'S OFFICE [Palmer WILEY Frannie - 03/09/2023 7:56 EDT] ) Frannie Chakraborty RN - 03/09/2023 7:56 EDT Verification DCP GENERIC CODE Family Waiting : No Can Surgeon Speak With Family : Yes Rosa Faye RN - 03/18/2023 9:28 EDT H&P Update Within 24 hrs on New Admits : Yes Sequential Compression Device : Yes Rosa Faye RN - 03/18/2023 8:34 EDT Sleep Apnea : No Preoperative Orders Complete : Yes Mode of Arrival : Ambulatory Rosa Faye RN - 03/18/2023 8:34 EDT Anesthesia/Transfusions Anesthesia/Transfusions : Prior anesthesia, Prior anesthesia reaction Type of Anesthesia Reaction : Takes a lot to put me to sleep per patient. Patient also states she has woken up during surgery. SEVERE latex allergy. Accept Blood Products if Necessary : Yes Frannie Chakraborty RN - 03/06/2023 14:06 EDT Advance Directive Advanced Directives : No Advance Directive Additional Information : No Frannie Chakraborty RN - 03/06/2023 14:06 EDT [facility] 03-06-2023 Note Patient: SUSANNE TOM Age: 42 years Sex: Female : 1980 Associated Diagnoses: None Author: JASSI RASCON CNP Basic Information Source of history: Self. Chief Complaint Neurogenic bladder History of Present Illness This pleasant 42-year-old female with a history of spina bifida, neurogenic bladder, presents to preadmission testing for a physical prior to surgery with Dr. Lopes. The patient complains of urinary frequency, urgency, and nocturia. She states the minute urine hits her bladder it gets immediately irritated and she gets the urge to urinate. It will cause her to get up sometimes 7 times a night to use the restroom. The Botox injection seems to calm the symptoms for her. She states this is her eighth injection and she has been getting them every 3 months. She denies signs of urinary tract infection: such as back pain, abdominal pain, musty smell, increased frequency, fever, and chills. Dr. Lopes is recommending cystoscopy, Botox injection 200 units and the patient is agreeable. The patient states it takes a lot of medication to get her to sleep. She states she wakes up during procedures. She also states it takes her longer to wake up from procedures afterwards. Histories Past Medical History: 1.spina bifida 2.neurogenic bladder 3.overactive bladder 4.chronic pain Family History: Bladder cancer Father Diabetes.. Father Stroke.. Grandfather High blood pressure.... Father Procedure history: Lumbar laminectomy. Social History Social & Psychosocial History Social History Alcohol Denies Alcohol Use Substance Abuse Current, Marijuana, 1-2 times per year Tobacco Former smoker, quit more than 30 days ago Tobacco Use:. Cigarettes Comment: quit 01/09/23. (03/06/2023 14:16 - Frannie Chakraborty RN) Psychosocial History No active psychosocial history has been recorded . Health Status Allergies (3) Active Reaction Cipro ITCHING LATEX allergy ANAPHYLAXIS Silvadene WORSENED LANDIS .Current medications: Home Meds (ST) Home Medications (2) Active Tramadol 50 mg 1 tab p.o. 3 times daily Lyrica 75 mg 1 tab p.o. 3 times daily Ibuprofen 600 mg 1 tab p.o. 3 times daily Zanaflex 4 mg 1 tab p.o. twice daily Review of Systems Constitutional: No fever, No chills. Ear/Nose/Mouth/Throat: No dental caries, No nasal congestion, No sore throat. Respiratory: No shortness of breath, No cough. Cardiovascular: No chest pain, No peripheral edema. Gastrointestinal: No diarrhea, No constipation, No heartburn, No abdominal pain. Genitourinary: Negative except as documented in history of present illness, No dysuria, No hematuria. Hematology/Lymphatics: No bleeding tendency. Endocrine: No cold intolerance, No heat intolerance. Immunologic: No recurrent fevers. Musculoskeletal: No muscle pain Back pain: In the middle of the back, In the lower region, The pain is moderate. Integumentary: No rash, No breakdown, No skin lesion. Neurologic: Alert and oriented X4. Physical Examination VS/Measurements Vital Signs (last 24 hrs) Last Charted Heart Rate Peripheral 69 bpm (MAR 06 13:59) Resp Rate 16 br/min (MAR 06 13:59) SBP 118 mmHg (MAR 06 13:59) DBP 79 mmHg (MAR 06 13:59) BMI 43.96 (MAR 06 13:59) General: Alert and oriented. Eye: Pupils are equal, round and reactive to light. HENT: Normocephalic, Normal hearing. Mouth: Dentures ( Upper and lower dentures ). Neck: Supple, Non-tender. Respiratory: Lungs are clear to auscultation, Respirations are non-labored, Breath sounds are equal. Cardiovascular: Normal rate, Regular rhythm, No murmur, Good pulses equal in all extremities, Normal peripheral perfusion. Gastrointestinal: Soft, Non-tender, Non-distended, Normal bowel sounds. Genitourinary: No costovertebral angle tenderness. Lymphatics: No lymphadenopathy neck, axilla, groin. Musculoskeletal: Normal range of motion, Normal strength, No tenderness, No swelling, No deformity, Normal gait. Integumentary: Warm, Dry, [place]. Neurologic: Alert, Oriented, Normal sensory, Normal motor function. Cognition and Speech: Oriented, Speech clear and coherent. Psychiatric: Cooperative, Appropriate mood & affect. Review / Management Laboratory Results Today's Lab Results : Laboratory 03/06/2023 14:09 EDT Estimated Creatinine Clearance 100.77 mL/min Impression and Plan Diagnosis 1.Overactive bladder 2.pre-op exam. Plan test on admit 2 g of IV Ancef ordered for day of surgery Pre-op diagnosis Overactive bladder Scheduled for surgery with Dr. Lopes on 03/18/2023 for Cystoscopy, Botox injection 200 units BMI 43.96 RCRI of MACE-0.4% This note was completed with voice recognition technology. Verbal misinterpretations may occur. [facility] 03-06-2023 Note REYNALDO Education Entere d On: 03/06/2023 13:59 EDT Performed On: 03/06/2023 13:59 EDT by Frannie Chakraborty RN / Required Barriers to Learning : None evident TeachBack Methodology : Explanation, Printed Material Frannie Chakraborty RN 03/06/2023 13:59 EDT Education Nursing General Required GRID Pain Management : Verbalizes understanding Speakup : Verbalizes understanding Frannie Chakraborty RN 03/06/2023 13:59 EDT Topic Specific Education Medication Management GRID Pain Can Be Managed,Relieved : Verbalizes understanding Palmer WILEY Frannie - 03/06/2023 13:59 EDT Infection Control Education Dialysis Surgery - Hospital form # [id number] : Verbalizes understanding Frannie Chakraborty RN 03/06/2023 13:59 EDT Pain Pain Education Topics Grid Pain Assessment Tool : Verbalizes understanding Pain Can Be Managed/Relieved : Verbalizes understanding Frannie Chakraborty RN 03/06/2023 13:59 EDT Pre Procedure / Surgery Education Procedures Tests Exams GRID NPO : Verbalizes understanding Preoperative Instructions : Verbalizes understanding Preprocedure Tests/Labs : Verbalizes understanding Preprocedure Diet : Verbalizes understanding [facility] 13:59 EDT [facility] 10-06-2022 Note Post Operative Note: PreOp Diagnosis: Neurogenic bladder, OAB Post-Procedure Diagnosis: Neurogenic bladder, OAB Procedure: 1. Intradetrusor botox 2. Cystoscopy 3. 4. 5. Surgeon: Lina Lopes Resident/Fellow/Other Ferryboat Operator Cable: Johana Cullen Anesthesia: LMA Estimated Blood Loss (mL): 0cc Specimen: no Findings: bladder with trabeculations and cystitis cystica; no foreign body, stone, glomerulations, bleeding Patient Returned To/Condition: PACU / stable Operative Report Dictated: Dictation: not applicable - note contains Operative Report Operative Report: PROCEDURE IN DETAIL: The patient was interviewed in the preop holding area by the surgical team, where the risks, benefits, and indication of the procedure were reviewed. She was then transferred to the operating suite where the patient was properly identified and the procedure was confirmed. When adequate anesthesia was obtained, the patient was prepped and draped in a dorsal lithotomy position. A time-out was performed. Preoperative antibiotics were given. A solution of 200 U of Botox in 20 mL of normal saline was created. The cystoscope was then inserted into the bladder and the urine was emptied. The bladder was then filled with approximately 150 mL of normal saline, and the entire 200 U of the botox solution were injected into the bladder muscle under direct visualization in a series of injections. The bladder was then emptied. The cystoscope was removed. The patient was then awakened from anesthesia, having tolerated procedure well, and was taken to the recovery room in stable condition. All sponge, needle, and instrument counts were correct at the end the case. Soledad Cullen MD, Fellow Dr. Lopes was present for all critical portions of the procedure. Attestation: Note Completion: I am a:Resident/Fellow Attending AttestationI was present for the entire procedure Electronic Signatures: Soledad Cullen (Fellow)) (Signed 06-Oct-2022 08:30) Authored: Post Operative Note, Note Completion Dominick Lopes) (Signed 07-Oct-2022 08:14) Authored: Note Completion Co-Signer: Post Operative Note, Note Completion Last Updated: 07-Oct-2022 08:14 by Dominick Lopes) [facility] [place] [facility] [place] History of Present I llness: /Lactating: Are You no Are You Currently Breastfeedingno History Present Illness: Reason for surgery: OAB HPI: 41 year old female with OAB presents for surgical correction with botox 200u. Allergies: Allergies: Silvadene: Other Latex: Anaphylaxis Home Medication Review: Home Medications Reviewed: yes Impression/Procedure: Impression and Planned Procedure: OAB: intravesical botox injections, cystoscopy ERAS (Enhanced Recovery After Surgery): ERAS Patient: no Review of Systems: Review of Systems: Constitutional: NEGATIVE: Fever Eyes: NEGATIVE: Blurry Vision ENMT: NEGATIVE: Nasal Discharge Respiratory: NEGATIVE: Dry Cough Cardiac: NEGATIVE: Chest Pain Gastrointestinal: NEGATIVE: Nausea Genitourinary: NEGATIVE: Discharge Musculoskeletal: NEGATIVE: Decreased ROM Neurological: NEGATIVE: Dizziness Psychiatric: NEGATIVE: Mood Changes Skin: NEGATIVE: Mass Physical Exam by System: Constitutional: Well developed, awake/alert/oriented x3, no distress, alert and cooperative Eyes: PERRL, EOMI, clear sclera Head/Neck: Neck supple, no apparent injury Respiratory/Thorax: Normal work of breathing Cardiovascular: Regular, rate and rhythm Gastrointestinal: Nondistended, soft, non-tender, no rebound tenderness or guarding, no masses palpable, no organomegaly, +BS, no bruits Extremities: normal extremities, no cyanosis edema, contusions or wounds, no clubbing Neurological: Grossly intact Psychological: Appropriate mood and behavior Skin: Warm and dry, no lesions, no rashes Consent: COVID-19 Consent: COVID-19 Risk ConsentSurgeon has reviewed gallegos risks related to the risk of joseph COVID-19 and if they contract COVID-19 what the risks are. Attestation: Note Completion: I am a: Resident/Fellow Attending AttestationI saw and evaluated the patient. I personally obtained the gallegos and critical portions of the history and physical exam or was physically present for gallegos and critical portions performed by the resident/fellow. I reviewed the resident/fellows documentation and discussed the patient with the resident/fellow. I agree with the resident/fellows medical decision making as documented in the note. I personally evaluated the patient [id number] Electronic Signatures: Soledad Cullen (Fellow)) (Signed 05-Oct-2022 19:05) Authored: History of Present Illness, Allergies, Home Medication Review, Impression/Procedure, ERAS, Review of Systems, Physical Exam, Consent, Note Completion Dominick Lopes) (Signed 06-Oct-2022 08:28) Authored: Note Completion Co-Signer: History of Present Illness, Allergies, Home Medication Review, Impression/Procedure, ERAS, Review of Systems, Physical Exam, Consent, Note Completion Last Updated: 06-Oct-2022 08:28 by Dominick Lopes) [facility] [place] [facility] [place] Procedure note [facility] 09-05-2021 Evaluation note Encounter Date Diagnosis Assessment Notes Aug, Dysuria (ICD-10 - R30.0) Aug, Acute cystitis with hematuria (ICD-10 - N30.01) Take medication as directed. Urine analysis shows abnormalities today in office. Urine culture will be sent to lab. Will call with results if resistance present to antibiotic. Increase fluid intake. Follow hygiene guidelines such as wiping front to back, avoid using perfumed lotions, bath beads, bubble bath. Prevention tips inlcude urinating after sexual intercourse. Follow up with primary care provider or operations manager assistant if no improvement of symptoms. [facility] Other 02-27-2021 NotePatient Outreach (COVAMN) KARLENE TOM ([id number]) 1980 F Date Time Provider Department 11/17/20 MILAN CERVANTES During your visit today, we recorded the following information about you: Allergies As of Date: 11/17/2020 Noted Allergy Reaction LATEX 11/15/2007 10 - Anaphylaxis MORPHINE 05/26/2017 8 - GI Upset NEOSPORIN ([id number]*10/07/2011 2 - Rash ZINC OXIDE 10/07/2011 2 - Rash Date Reviewed: 12/07/2018 Reviewed by: Esme Haddad Ma - Fully Assessed Order(s):SARS-COVID VACCINE 1ST DOSE APPT [[id number]] Order #: [id number] FUTURE Prescriptions as of 11/17/2020 Sig: VITAMIN,CALCIUM,MINE* Take 1 tablet by mouth once d* Patient not taking: Reported on 12/07/2018 PREGABALIN 75 MG CAPSULE Take 75 mg by mouth three za* MOTRIN ORAL Take by mouth. NITROFURANTOIN MACROCRYSTAL 2* Take 10 mg by mouth as needed. ASCORBIC ACID (VITAMIN C) 100* Take 100 mg by mouth once juana* MULTIVITAMIN WITH MINERALS CA* Take by mouth. TRAMADOL 50 MG TABLET Take 50 mg by mouth three za* ACETAMINOPHEN 325 MG TABLET Take 1 tablet by mouth every * Patient not taking: Reported on 12/07/2018 GABAPENTIN 400 MG CAPSULE Take 1 capsule by mouth three* Patient not taking: Reported on 12/07/2018 CYCLOBENZAPRINE 10 MG TABLET Take 1 tablet by mouth three * Patient not taking: Reported on 12/07/2018 WALKER 1 Units as needed. Rollator w* Patient not taking: Reported on 12/07/2018 Problem List As Of Date 11/17/2020 Noted Resolved Unspecified site of sprain and strain [T14.8XXA]10/25/2003 05/17/2012 PAIN IN JOINT, LOWER LEG [M25.569] 09/18/2008 Smoker [F17.200] 05/17/2012 Spina bifida [Q05.9] 05/17/2012 Latex allergy [Z91.040] 05/17/2012 care, subsequent [Z34.80] 06/07/2012 Tethered cord (HCC) [Q06.8] 05/15/2017 More... Morbid obesity (HCC) [E66.01] 05/26/2017 History of urinary self-catheterization [Z78.9] 05/26/2017 More... Lumbar surgical wound fluid collection [T81.89X*06/17/2017 Encounter Status:Closed by EPIC, PRODUSER on 11/20/20[facility] Evaluation noteNo assessment information availableMet[facility] Work Phone: History general Narrative - Reported* Type Description Date Medical History spina bifida Medical History Stage 1 kidney failure Surgical History 3 lower backsurgeries Surgical History 3 stomach surgeries Surgical History 2 rt leg surgeries Surgical History cervical cancer Surgical History eye surgery Surgical History wisdom teeth Surgical History spine surgery Surgical History laminectomy L4 L5 Surgical History botox in bladder Hospitalization History see above [facility] Other Summary Purpose Family History No Family History Records Found Relationship Condition Age at Onset Recorded Date/T nia father Malignant neoplasm Unknown Hypertension Unknown Not Specified Malignant neoplasm Unknown Advance Directives No Advanced Directives Records Found Advance Directive Response Recorded Date/ Time Advance Directives No February 03 3:15pm Advance Directive Response Recorded Date/ Time Advance Directives No February 03 2:15pm Chief Complaint and Reason for Visit Chief Complaint LBP Abdominal Pain, Constipation, Bloody Diarrhea Abdominal Pain, Constipation, Bloody Diarrhea Chief Complaint LBP/do not move must see PT for this visit Chief Complaint numbness in face, lo ss of hearing Additional Source Comments INFORMATION SOURCE (unrecogn ized section and content) DATE CREATED AUTHOR 12/24/2018 [facility] DATE CREATED AUTHOR AUTHOR'S ORGANIZ ATION 05/29/2020 [facility] DATE CREATED AUTHOR AUTHOR'S ORGANIZ ATION 11/14/2021 [facility] DATE CREATED AUTHOR AUTHOR'S ORGANIZ ATION 12/27/2022 [facility] [place] [facility] [place] DATE CREATED AUTHOR AUTHOR'S ORGANIZ ATION 03/01/2023 [facility] DATE CREATED AUTHOR AUTHOR'S ORGANIZ ATION 03/20/2023 [facility] DATE CREATED AUTHOR AUTHOR'S ORGANIZ ATION 06/01/2023 [facility] REASON FOR VISIT (unrecogniz ed section and content) [facility] Care Teams (unrecognized sec tion and content) Team Status: Inactive Member Role Status Dates Deshawn Sharma DO Primary Care Provider Active Simone Warren MD Attending Provider Active Team Status: Active Member Role Status Dates Liya Peña MD Attending Provider Active Deshawn Sharma DO Primary Care Provider Active Team Status: Active Member Role Status Dates Deshawn Sharma DO Primary Care Provider Active Team Status: Inactive Member Role Status Dates Liya Peña MD Attending Provider Active Deshawn Sharma DO Primary Care Provider Active Team Status: Active Member Role Status Dates RADHA CottonANTON Primary Care Provider Active Team Status: Inactive Member Role Status Dates Shon Angel SENSITIZERANTON Primary Care Provider Active Eric Curran DO Emergency Provider Active Goals (unrecognized section and content) Goals may be documented in a n alternate section FOR RECORDS PERTAINING TO PATIENTS WHO ARE OR HAVE BEEN ENROLLED IN A CHEMICAL DEPENDENCY/SUBSTANCEABUSE PROGRAM, SOME INFORMATION MAY BE OMITTED. This clinical summary was aggregated from multiple sources. Caution should be exercised in using it in the provision of clinical care. This summary normalizes information from multiple sources, and as a consequence, information in this document may materially change the coding, format and clinical context of patient data. In addition, data may be omitted in some cases. CLINICAL DECISIONS SHOULD BE BASED ON THE PRIMARY CLINICAL RECORDS. [facility]. provides no warranty or guarantee of the accuracy or completeness of information in this document.
--- NOTE | 2023-11-21 18:41 | ECG_ITS ---
[facility] Test Date: 2023-11-21 Pat Name: WENDI SALEH Department: Room: - Gender: Female Senior Care Manager: : [id number] Requested By: [id number] Order Number: [id number] Reading MD: RODOLFO FUNK Measurements Intervals [place] Rate: 86 P: 44 CO: 124 QRS: 49 QRSD: 84 T: 16 QT: 330 QTc: 373 Interpretive Statements 1100 Sinus rhythm Non-Specific T wave inversion in III 9110 normal ECG Compared to ECG 08/25/2022 21:05:31 Sinus tachycardia no longer present T-wave abnormality no longer present Electronically Signed On 11-24-2023 5:56:40 EST by RODOLFO FUNK
--- NOTE | 2023-11-21 18:42 | ED.GENADUL1 ---
HPI - General Adult General Chief complaint: Shortness of Breath/Dyspnea Stated complaint: SOB CHEST PAIN Time Seen by Provider: 11/21/23 18:22 Source: patient Mode of arrival: walk-in Limitations: no limitations History of Present Illness HPI narrative: Patient is a 42-year-old female who is presenting to the ER today with multiple complaints. Patient has some sinus congestion, sore throat for the past 2 days. Patient's chief concern is urinary tract infection that may be leading to a kidney infection. Patient straight caths herself secondary to longstanding history of spina bifida. Patient has had several kidney infections. Patient straight caths herself for urine several times a day. Patient states that when she is sick, her temperature becomes low not high. Patient has no nausea, patient has mild nausea with no vomiting. No headache or neck pain. Patient has mild chest discomfort, minimal shortness of breath. No other sick contacts. Patient was at a urgent care yesterday, and was told to come to the ER for further evaluation and testing. Patient had to go home to help with her children, patient came to the ER today. Patient was diagnosed with a urinary tract infection 2 weeks ago. Patient was on Macrobid. Patient states the Macrobid did not help, and the urinary tract infection came back with a vengeance. Patient has vague bilateral back pain, right slightly worse than left. No falls, no trauma, no other acute complaints. Patient chief concern is also sepsis, she believes that her urinary tract infection is causing kidney infection that is causing sepsis. Patient meets no sepsis markers with triage vital signs. All systems are negative except as noted/marked. All systems reviewed and otherwise negative. Nurses note and vital signs reviewed and patient is not hypoxic. General: The patient appears well and in no apparent distress. Patient is resting comfortably on cart. Patient is not toxic, lethargic, or listless, patient is tearful, secondary to the situation that she is concerned being really sick. Skin: Warm, dry, no pallor noted. There is no rash noted. No petechiae, purpura. Head: Normocephalic, atraumatic Eye: Normal conjunctiva, no drainage, EOMI. PERRL Ears, Nose, Mouth, and Throat: oral mucosa is moist. Nares patent. Mouth without vesicles. Cardiovascular: Regular Rate and Rhythm, no murmur, gallop, rub Respiratory: Patient is in no distress, no accessory muscle use, lungs are clear to auscultation, no wheezing, rales or rhonchi Back: non-tender, mild bilateral CVA tenderness bilaterally to percussion. No CT LS midline pain GI: Obese, mild suprapubic tenderness palpation, no flank pain bilateral, no tenderness to palpation, no masses appreciated. No rebound, guarding, or rigidity noted. No distention Musculoskeletal: Patient has full range of motion of all of the extremities, no motor, sensory, or focal neurological deficits Neurological: A&O x4, normal speech Psychiatric: Cooperative Related Data Home Medications Medication Instructions Recorded Confirmed pregabalin 75 mg capsule 75 mg PO Q8H 11/21/23 11/21/23 tizanidine 4 mg tablet 4 mg PO Q12H 11/21/23 11/21/23 tramadol 50 mg tablet 50 mg PO Q8H 11/21/23 11/21/23 Allergies Allergy/AdvReac Type Severity Reaction Status Date / Time latex AdvReac Mild Verified 11/21/23 18:27 PFSH PFSH Social History Smoking status: Current every day smoker Exam Constitutional Vital Signs, click to edit/add: Last Vital Signs Temp 99.6 F 11/21/23 18:18 Pulse 100 H 11/21/23 18:18 Resp 18 11/21/23 18:18 BP 122/80 11/21/23 18:18 Pulse Ox 99 11/21/23 18:18 O2 Del Method Room Air 11/21/23 18:18 Course Vital Signs Vital signs: Vital Signs Temperature 99.6 F 11/21/23 18:18 Pulse Rate 100 H 11/21/23 18:18 Respiratory Rate 18 11/21/23 18:18 Blood Pressure 122/80 11/21/23 18:18 Pulse Oximetry 99 11/21/23 18:18 Oxygen Delivery Method Room Air 11/21/23 18:18 Temperature 99.6 F 11/21/23 18:18 Pulse Rate 100 H 11/21/23 18:18 Respiratory Rate 18 11/21/23 18:18 Blood Pressure 122/80 11/21/23 18:18 Pulse Oximetry 99 11/21/23 18:18 Oxygen Delivery Method Room Air 11/21/23 18:18 Medical Decision Making MDM Narrative Medical decision making narrative: Patient was given 1 L of IV fluid, given Zofran. Patient's lab work, urine is pending. Patient will be reevaluated by Dr. Lawson and final disposition will be done by Dr. Lawson. Lab Data Labs: Lab Results 11/21/23 Range/Units 18:50 WBC 13.5 H (4.0-11.0) 10^3/uL RBC 4.42 (4.20-5.40) 10^6/uL Hgb 13.0 (12.0-16.0) g/dL Hct 39.2 (36.0-48.0) % MCV 88.7 (81.0-99.0) fL MCH 29.4 (26.7-34.0) pg MCHC 33.2 (29.9-35.2) g/dL RDW 12.6 (11.0-15.0) % Plt Count 222 (150-450) 10^3/uL MPV 9.8 (9.5-13.5) fL Neut % (Auto) 83.7 H (43.0-75.0) % Lymph % (Auto) 9.1 L (20.5-60.0) % [place] % (Auto) 5.8 (1.7-12.0) % Eos % (Auto) 0.7 L (0.9-7.0) % Baso % (Auto) 0.3 (0.2-2.0) % Neut # (Auto) 11.3 H (1.4-6.5) 10^3/uL Lymph # (Auto) 1.2 (1.2-3.8) 10^3/uL [place] # (Auto) 0.8 (0.3-0.8) 10^3/uL Eos # (Auto) 0.1 (0.0-0.7) 10^3/uL Baso # (Auto) 0.0 (0.0-0.1) 10^3/uL Abs Immat Gran (auto) 0.05 H (0.00-0.03) 10^3/uL Imm/Tot Granulo (auto) 0.4 (0.0-0.5) % ECG Data Attestation: I personally reviewed and interpreted this ECG as follows: (EKG interpretation. Normal sinus rhythm at 86 beats a minute. Normal axis deviation. No acute ST elevation, no acute ectopy. QTc of 373) Discharge Plan Discharge Patient Disposition: Still a Patient
[2023-11-21 19:02] LABS: Basophils Percent Auto 0.3 % (0.2-2.0); Eosinophils Absolute Auto 0.1 10^3/uL (0.0-0.7); Eosinophils Percent Auto 0.7 % (0.9-7.0); Hematocrit 39.2 % (36.0-48.0); Immature Granulocytes Abs Auto 0.05 10^3/uL (0.00-0.03); Immature Granulocytes Pct Auto 0.4 % (0.0-0.5); Lymphocytes Absolute Auto 1.2 10^3/uL (1.2-3.8); Lymphocytes Percent Auto 9.1 % (20.5-60.0); Mean Corpuscular HGB Conc 33.2 g/dL (29.9-35.2); Mean Corpuscular Hemoglobin 29.4 pg (26.7-34.0); Mean Corpuscular Volume 88.7 fL (81.0-99.0); Mean Platelet Volume 9.8 fL (9.5-13.5); Monocytes Absolute Auto 0.8 10^3/uL (0.3-0.8); Monocytes Percent Auto 5.8 % (1.7-12.0); Neutrophils Absolute Auto 11.3 10^3/uL (1.4-6.5); Neutrophils Percent Auto 83.7 % (43.0-75.0); Platelet Count 222 10^3/uL (150-450); Red Blood Count 4.42 10^6/uL (4.20-5.40); Red Cell Distribution Width 12.6 % (11.0-15.0); White Blood Count 13.5 10^3/uL (4.0-11.0)
[2023-11-21 19:16] LABS: Alanine Aminotransferase 25 U/L (14-59); Albumin Globulin Ratio 0.8; Albumin Level 3.3 g/dL (3.4-5.0); Alkaline Phosphatase 80 U/L (46-116); Anion Gap 13.3; Aspartate Amino Transferase 13 U/L (15-37); BUN Creatinine Ratio 14.9; Bilirubin Total 0.4 mg/dL (0.2-1.0); Calcium 8.5 mg/dL (8.5-10.1); Carbon Dioxide 27.6 mmol/L (21.0-32.0); Chloride 105 mmol/L (98-107); Estimated GFR (African America >60 (>=60); Estimated GFR (Non-African Ame >60 (>=60); Globulin 4.1 g/dL; Glucose 92 mg/dL (74-106); Potassium 3.9 mmol/L (3.5-5.1); Sodium 142 mmol/L (136-145); Total Protein 7.4 g/dL (6.4-8.2)
[2023-11-21] MEDS: 0.9 % SODIUM CHLORIDE 1,000 ML 999 ML IV (19:27)
[2023-11-21] MEDS: ONDANSETRON PF 4 MG/2 ML VIAL IV (19:27)
[2023-11-21 19:34] LABS: Bilirubin Urine NEGATIVE (NEGATIVE); Blood Urine TRACE-I (NEGATIVE); Clarity Urine CLEAR (CLEAR); Color Urine YELLOW (YELLOW); Glucose Urine UA NEGATIVE (NEGATIVE); Ketones Urine NEGATIVE (NEGATIVE); Leukocyte Esterase Urine TRACE (NEGATIVE); Nitrite Urine NEGATIVE (NEGATIVE); Protein Urine NEGATIVE (NEG/TRACE); pH Urine 7.5 (5.0-9.0)
[2023-11-21 19:35] LABS: Internal Control Within Normal Limits; Strep A Antigen Screen Negative
[2023-11-21 19:42] LABS: Influenza Virus A Antigen Negative; Influenza Virus B Antigen Negative; Internal Control Within Normal Limits; SARS-CoV-2 Ag NEGATIVE (NEGATIVE)
[2023-11-21 19:43] LABS: Bacteria Urine NONE SEEN #/HPF (NONE SEEN); Mucus Urine NONE SEEN (NONE SEEN); RBC Urine NONE SEEN #/HPF (0-2); Squamous Epithelial Cell Urine RARE #/LPF (NONE/RARE); WBC Urine 0-2 #/HPF (NONE SEEN)
[2023-11-21 19:44] LABS: Cast Seen? NONE SEEN #/LPF (NONE SEEN); Crystals Seen? None Seen #/HPF (None Seen)
[2023-11-21] MEDS: LEVOFLOXACIN IN DEXTROSE 5 % 750 MG/150 ML IV.SOLN 100 MG IV (19:59)
== END 2023-11-21 21:42 | disposition home or self-care (01) ==
PROVIDERS: Emergency Medicine; Emergency Provider Emergency Medicine; PCP Nurse Practitioner Primary Care
DX: N39.0 Urinary tract infection, site not specified (principal); Z20.822 Contact with and (suspected) exposure to COVID-19; Q05.9 Spina bifida, unspecified; Z79.899 Other long term (current) drug therapy; F17.210 Nicotine dependence, cigarettes, uncomplicated
CPT/HCPCS: 36415; 80053; 81001; 83690; 85025; 87070; 87086; 87804; 87811; 87880; 93005; 96365; 96366; 96375; 99285

== ENCOUNTER 2023-12-22 14:56 | Outpatient (REF) | payer OTHER, SELFPAY ==
[2023-12-22 16:04] LABS: Amphetamine Screen Urine NEGATIVE (NEGATIVE); Barbiturates Screen Urine NEGATIVE (NEGATIVE); Benzodiazepines Screen Urine NEGATIVE (NEGATIVE); Buprenorphine Screen Urine NEGATIVE (NEGATIVE); Cannabinoid Screen Urine POSITIVE (NEGATIVE); Cocaine Screen Urine NEGATIVE (NEGATIVE); Methadone Screen Urine NEGATIVE (NEGATIVE); Methamphetamines Screen Urine NEGATIVE (NEGATIVE); Opiate Screen Urine NEGATIVE (NEGATIVE); Oxycodone Screen Urine NEGATIVE (NEGATIVE); Phencyclidine Screen Urine NEGATIVE (NEGATIVE); Tricyclic Antidepressant Urine NEGATIVE (NEGATIVE)
== END 2023-12-22 14:57 | disposition home or self-care (01) ==
LOC: LAB 14:56
PROVIDERS: PCP Nurse Practitioner Primary Care; Visit Provider Nurse Practitioner
DX: G89.29 Other chronic pain (principal)
CPT/HCPCS: 80307

== ENCOUNTER 2024-06-17 14:20 | Emergency (ER) | payer OTHER, SELFPAY ==
[2024-06-17 14:25] VITALS: BP 153/85; PULSE 85; TEMP 36.6; O2SAT 99; BMI 43.9
--- OUTSIDE RECORDS SUMMARY | 2024-06-17 14:29 | XMS_ITS | CCD ---
Author Organization [facility] Inform ion Partnership [facility] Care Team Providers Care Forest Ecologist Name Role Phone Astrid Myers Unavailable MD Liya Peña Attending Provider House, DO Hess Primary Care Provider MD Simone Warren Attending Provider MD Liya Peña Attending Provider [phone] House, DO Hess Primary Care Provider Edith, Dr. Hess Balta Primary Care Tom Lopes, Dr. Dominick Hawkins Referring Ashley Lopes, Dr. Dominick Hawkins Attending Unavai lable Marianne, Dr. Dominick Hawkins Admitting Unavai labbrian LEIVA ., ELIUD PARNELL Consulting Unavailabl e DIAB ., RO Attending Unavailable DIAB ., RO Admitting Unavailable HOUSE, DR HESS Primary Care Unavailable HAILY HAIDER Consulting Unavailable MARKER ., DR SALCEDO Admitting Unavailable HOUSE, DR HESS Primary Care Unavailable MARKER ., DR SALCEDO Attending Unavailable MARKER ., DR SALCEDO Consulting Unavailable DESIRAE KATZ Consulting Unavailable WAYNE ROBLES Consulting Unavailable EDITH, DR HESS Primary Care Unavailable DOMINICK LOPES MD Attending Unavailable HOUSE DESHAWN LIRIANO Primary Care Unavailable Stanley [facility] Shon Grey Primary Care Provider DO Eric Curran Emergency Provider Shon Angel Primary Care Unavailable Eric Curran Admitting Unavailable Eric Curran Attending Unavailable Yojana Vicente Admitting Unavailable Yojana Vicente Attending Unavailable [place] [facility] [place]wn[place] Unavailable [place] [facility] Deshawn Balta Primary Care [facility] ider [place] [facility] , Deshawn P Unavailable [phone] Kong Forrester MD, [facility] ider Kong Forrester MD, [facility] ider [facility] Deshawn P Primary Care Provider KNOG FORRESTER, [facility] Primary Care Unav ailable NORMA LYMAN Referring Unavailable [facility], Deshawn P Primary Care Provider BRITTANY RODRÍGUEZ Attending Unavailable [facility] Primary Care Unavailable [place] [facility] , Deshawn P Unavailable [phone] VANCE DALEY Referring Unavailable BOO LUIS, AIDAN Primary Care Unav ailable BOO LUIS, AIDAN Primary Care Unav ailable BABIUCHELDA Referring Unavailable BOO LUIS, AIDAN Primary Care Unav ailable BOO LUIS, AIDAN Attending Unav ailable BOO LUIS, AIDAN Primary Care Unav ailable BOO LUIS, AIDAN Attending Unav ailable BOO LUIS, AIDAN Primary Care Unav ailable BOO LUIS, AIDAN Primary Care Unav ailable ERUM, ELDA Attending Unavailable BOO LUIS, AIDAN Primary Care Unav ailable BOO LUIS, AIDAN Primary Care Unav ailable BOO LUIS, AIDAN Primary Care Unav ailable [facility], DESHAWN P Primary Care Unavailable SELF Referring Unavailable LINDA KENDRICK Attending Unavailable HAILY MAYER Attending Unavailable BOO LUIS, AIDAN Primary Care Unav ailable REGINA AGRAWAL Referring Unavailable JAILENE DAVE Attending Unavaila ble BOO LUIS, AIDAN Referring Unav ailable BOO LUIS, AIDAN Primary Care Unav ailable BOO LUIS, AIDAN Primary Care Unav ailable VANCE DALEY Referring Unavailable BOO LUIS, AIDAN Primary Care Unav ailable LYMANNORMA JOHN Referring Unavailable VANCE DALEY Attending Unavailable BOO LUIS, [facility] Care Unav ailable BABIUCHSUDHIRELDA Attending Unavailable BABIUCHSUDHIRELDA Admitting Unavailable TANJAREGINA Attending Unavailable BOO LUIS, [facility] Care Unav ailable LYMANNORMA Referring Unavailable BOO LUIS, [facility] Primary Care Unav ailable BABIUCH, ELDA Attending Unavailable NORMA LYMAN Attending Unavailable [facility], [facility] Primary Care Unavailable SELF Referring Unavailable BOO LUIS, [facility] Primary Care Unav ailable JAKKAMRANKVANCE Attending Unavailable [facility], [facility] Primary Care Unavailable TRACIE WILLIAMSON Attending Unavailable BOO LUIS, [facility] Primary Care Unav ailable BOO LUIS, AIDAN Referring Unav ailable BOO LUIS, [facility] Primary Care Unav ailable BABIUCH, ELDA Attending Unavailable JAILENE DAVE Referring Unavaila ble BENDARAMJAILENE Attending Unavaila ble BOO LUIS, [facility] Primary Care Unav ailable BOO LUIS, [facility] Primary Care Unav ailable TANJAREGINA Attending Unavailable BOO LUIS, [facility] Unav ailable TANJAREGINA TONY Referring Unavailable VANCE DALEY Referring Unavailable JAYDEN BUCKLEY Attending Unavailable BOO LUIS, [facility] Unav ailable DOMINICK LOPES Admitting Unavailable DOMINICK LOPES Attending Unavailable DESHAWN SHARMA Primary Care Unavailable SANDOVAL LOPESONIRadha Slade Admitting Unavailable DOMINICK LOPES Attending Unavailable DESHAWN SHARMA Primary Care Unavailable Allergies Allergy Classification Reported Allergen(s) Allergy Type Date of Onset Reaction(s) Facility bacitracin / neomycin / polymyxin b (3 sources) bacitracin / neomycin / polymyxin b Drug Allergy 10-07-19 12 Rash [facility] Latex (3 sources) Latex Substance Allergy 11-15-19 08 Anaphylaxis [facility] Opioid Agonists (3 sources) Morphine Drug Allergy 05-26-20 17 GI Upset [facility] Work Phone: Quinolones (antibiotic) (3 sources) Ciprofloxacin Drug Allergy 05-18-20 23 Hives, Itching [facility] Sulfonamides (antibiotic) (2 sources) silver sulfADIAZINE Drug Allergy 01-18-20 Other: See Comments [facility] Zinc Oxide (3 sources) Zinc Oxide Drug Allergy 10-07-19 12 [facility] (1 source) Latex Tube/Connector Drug allergy anaphylaxis [employer] Other (20 sources) Latex; Translations: [latex] Allergy to substance 11-15-19 08 Anaphylaxis [facility] (1 source) Amoxicillin / Clavulanate Drug Allergy 07-13-20 17 [facility] (1 source) Gestronol Drug Allergy 06-16-20 17 [facility] (4 sources) Morphine; Translations: [MORPHINE] Drug Allergy 05-26-20 17 [facility] (20 sources) Ciprofloxacin; Translations: [ciprofloxacin] Drug Allergy 05-18-20 Itching, Hives [facility] (20 sources) bacitracin / neomycin / polymyxin b; Translations: [NEOMYCIN-BACITRA OSWALDO-POLYMYXIN] Drug Allergy 10-07-19 12 [facility] (20 sources) Morphine Drug Allergy 05-26-20 17 GI Upset [facility] Work Phone: (20 sources) Zinc Oxide; Translations: [ZINC OXIDE] Drug Allergy 10-07-19 12 [facility] (20 sources) silver sulfADIAZINE; Translations: [SILVER SULFADIAZINE] Drug Allergy 01-18-20 Other, Other: See Comments [facility] Work Phone: Medications Current Medications Medication Drug Class(es) Dates Sig (Normalized) Sig (Original) acetaminophen 500 mg oral tablet (20 sources) Start: 01-18-2024 take 2 tablets by mouth every six hours for pain acetaminophen (Tylenol) 500 mg tablet Indications: Post-operative pain Take 2 tablets (1,000 mg) by mouth every 6 hours if needed for mild pain (1 - 3). 30 tablet 01/18/2024 Active Start: 06-19-2017 End: 04-08-2024 take 1 tablet by mouth every six hours as needed acetaminophen (TYLENOL) 325 mg tablet Take 1 tablet by mouth every 6 hours as needed. 0 06/19/2017 04/08/2024 Discontinued (Discontinued by Patient) Comment on above: Take 1 tablet by luke th every 6 hours as needed. acetaminophen 325 mg / HYDROcodone bitartrate 5 mg oral tablet (1 source) Opioid Agonist Start: 2023 take 1 tablet by mouth every six hours as needed 1 tablet, oral, Every 6 hours PRN, pain severe (7-10), first line, Starting on Thu01/18/24 at 1134, If ordered PRN for pain, nurse is permitted to administer this medication for higher pain scores based on patient preference? Yes albuterol 0.83 mg/ml inhalation solution (1 source) beta2-Adrenergic Agonist Start: 2023 2.5 mg, nebulization, Once as needed, wheezing, Starting on Thu01/18/24 at 1133, For 1 dose, Recovery (only) calcium chloride 0.0014 meq/ml / potassium chloride 0.004 meq/ml / sodium chloride 0.103 meq/ml / sodium lactate 0.028 meq/ml injectable solution (1 source) Start: 2023 take 100 mL intravenously every hour 100 mL/hr, intravenous, Continuous, Starting on Thu01/18/24 at 1200, Recovery (only) cephalexin 500 mg oral capsule (1 source) Cephalosporin Antibacterial Start: 2020 take 1 capsule by mouth every eight hours Cephalexin 500 MG 1 capsule Orally three times a day for 10 day(s) Aug, Active ciprofloxacin 500 mg oral tablet (1 source) Quinolone Antimicrobial Start: 2023 End: 2023 take 1 tablet by mouth twice daily ciprofloxacin (Cipro) 500 mg tablet Indications: Post-operative pain Take 1 tablet (500 mg) by mouth 2 times a day for 3 days. 6 tablet 01/18/2024 01/21/2024 Active cyclobenzaprine hydrochloride 10 mg oral tablet (20 sources) Muscle Relaxant Start: 2016 End: 2023 cyclobenzaprine (FLEXERIL) 10 mg tablet Take 1 tablet by mouth as needed for muscle spasm. 60 tablet 1 05/02/2024 Active Comment on above: Take 1 tablet by luke th three times daily as needed for Muscle Spasm. dexamethasone 1 mg/ml / tobramycin 3 mg/ml ophthalmic suspension (2 sources) Aminoglycoside Antibacterial, Corticosteroid Start: 2023 End: 2023 take 1 drop(s) into the eye(s) three times daily tobramycin-dexAMETHa sone (TOBRADEX) 0.3-0.1 % ophthalmic suspension Use 1 Drop in both eyes three times a day for 7 days. 0 04/26/2024 05/03/2024 Active diphenhydrAMINE (1 source) Histamine-1 Receptor Antagonist Start: 2023 12.5 mg, intravenous, Once as needed, itching, allergic reaction, Starting on Thu01/18/24 at 1133, For 1 dose, Recovery (only) erythromycin 0.005 mg/mg ophthalmic ointment (2 sources) Macrolide, Macrolide Antimicrobial Start: 2023 End: 2023 erythromycin (ROMYCIN) 5 mg/gram (0.5 %) ophthalmic ointment Use 1 application in both eyes three times a day for 7 days. 0 04/26/2024 05/03/2024 Active fluticasone propionate 0.05 mg/actuat metered dose nasal spray (1 source) Corticosteroid Start: 2022 Fluticasone Propionate (Flonase Allergy Relief) 50 mcg/actuation spray,suspension Active 2 SPRAY INTRANASAL Daily May 18, 2023 12:00am 1 ml hydrALAZINE hydrochloride 20 mg/ml injection (1 source) Arteriolar Vasodilator Start: 2023 5 mg, intravenous, Administer over 2 Minutes, Every 30 min PRN, high blood pressure, systolic blood pressure greater than 180 mmHg and heart rate less than 60 BPM, Starting on Thu01/18/24 at 1133, For 2 doses, Recovery (only) 0.5 ml HYDROmorphone hydrochloride 1 mg/ml prefilled syringe (1 source) Opioid Agonist Start: 2023 0.5 mg, intravenous, Every 5 min PRN, pain severe (7-10), first line, Starting on Thu01/18/24 at 1133, Recovery (only), Max total of 4 mg regardless of dose. ibuprofen 200 mg oral tablet (20 sources) Nonsteroidal Anti-inflammatory Drug Start: 06-19- 2023 take 3 tablets by mouth every twenty-four hours as needed ibuprofen 200 mg tablet Take 3 tablets (600 mg) by mouth once daily as needed. 03/09/2023 Active IBUPROFEN (MOTRI N ORAL) Take by mouth. Active IBUPROFEN (MOTRI N ORAL) Take by mouth. 0 Active Comment on above: Take by mouth. iv contrast (will be provided with radiology test) (1 source) Start: 2023 End: 2023 inject 1 dose intravenously once, then inject 1 dose intravenously once iv contrast (will be provided with radiology test) Inject 1 Each intravenously one time only for [address] Neck W IVCON No IV access, insert saline lock prior to the sedation, infusion, injection for imaging exam. Discontinue saline lock post exam. If Pt. has a central line or IVAD, may access for administration according to line specific nursing protocol. Once exam is complete flush line and de-access according to line specific nursing protocol in the CT contrast administration guidelines link. 1 Each 0 04/05/2024 04/05/2024 Active ketotifen 0.25 mg/ml ophthalmic solution (1 source) Histamine-1 Receptor Inhibitor Start: 2023 ketotifen fumarate (ALAWAY) 0.025 % (0.035 %) ophthalmic solution Use 1 Drop in both eyes two times a day. 5 mL 2 05/25/2024 Active labetalol hydrochloride 5 mg/ml injectable solution (1 source) beta-Adrenergic Lucila Start: 2023 5 mg, intravenous, Administer over 1 Minutes, Once as needed, systolic blood pressure greater than 180 mmHg, dystolic blood pressure greater than 100 mmHg and heart rate greater than 60 BPM, Starting on Thu01/18/24 at 1133, For 1 dose, Recovery (only) metoclopramide 10 mg oral tablet (9 sources) Dopamine-2 Receptor Antagonist Start: 2023 End: 2023 take 1 tablet by mouth three times daily metoclopramide HCl (REGLAN) 10 mg tablet Indications: Nausea Take 1 tablet by mouth three times a day. 90 tablet 0 02/22/2024 03/23/2024 Active mineral oil 0.425 mg/mg / petrolatum 0.568 mg/mg ophthalmic ointment (3 sources) Start: 2023 White Petrolatum-Mineral Oil (LACRI-LUBE) 56.8-42.5 % oint Use 1 application in both eyes three times a day. 3.5 g 1 05/04/2024 Active nitrofurantoin, macrocrystals 25 mg / nitrofurantoin, monohydrate 75 mg oral capsule (20 sources) Nitrofuran Antibacterial Start: 2023 nitrofurantoin monohydrate and macrocrystal (MACROBID) 100 mg capsule Take 1 capsule by mouth as needed. 03/23/2024 Active Start: 01-01-2024 End: 01-30-2024 take 1 capsule by mouth twice daily nitrofurantoin monohydrate and macrocrystal (MACROBID) 100 mg capsule Indications: Acute UTI Take 1 capsule by mouth two times a day for 5 days. 10 capsule 0 01/25/2024 01/30/2024 Active oxyCODONE hydrochloride 5 mg oral tablet (1 source) Opioid Agonist Start: 01-18-2024 take 1 tablet by mouth every four hours as needed 5 mg, oral, Every 4 hours PRN, pain mild (1-3), first line, Starting on Thu01/18/24 at 1133, Recovery (only), When able to take oral medications., If ordered PRN for pain, nurse is permitted to administer this medication for higher pain scores based on patient preference? Yes phenazopyridine hydrochloride 200 mg oral tablet (3 sources) Start: 01-18-2024 take 1 tablet by mouth three times daily as needed for muscle spasms phenazopyridine (Pyridium) 200 mg tablet Indications: Post-operative pain Take 1 tablet (200 mg) by mouth 3 times a day as needed for bladder spasms. 10 tablet 01/18/2024 Active Start: 01-18-2024 take 200 mg by mouth three times daily at mealtime 200 mg, oral, 3 times daily with meals, First dose on Thu01/18/24 at 1215, May discolor urine (orange). prednisoLONE acetate 10 mg/ml ophthalmic suspension (1 source) Corticosteroid Start: 05-04-2024 End: 05-11-2024 prednisoLONE acetate (PRED FORTE) 1 % ophthalmic suspension Use 1 Drop in both eyes three times a day for 7 days. 5 mL 0 05/04/2024 05/11/2024 Active pregabalin 75 mg oral capsule (20 sources) Start: 05-02-2024 End: 06-27-2024 take 1 capsule by mouth three times daily pregabalin (LYRICA) 75 mg capsule Indications: Chronic bilateral low back pain, unspecified whether sciatica present Take 1 capsule by mouth three times a day for 56 days. 84 capsule 1 05/02/2024 06/27/2024 Active Start: 03-29-2024 End: 04-26-2024 take 1 capsule by mouth three times daily pregabalin (LYRICA) 75 mg capsule Indications: Chronic bilateral low back pain, unspecified whether sciatica present Take 1 capsule by mouth three times a day for 28 days. 84 capsule 0 03/29/2024 04/26/2024 Active Start: 12-22-2023 End: 03-21-2024 take 1 capsule by mouth three times daily pregabalin (LYRICA) 75 mg capsule Indications: Chronic bilateral low back pain, unspecified whether sciatica present Take 1 capsule by mouth three times a day for 28 days. 84 capsule 0 02/22/2024 Active Start: 06-10-2022 take 1 capsule by [facility] three times daily pregabalin (Lyrica) 50 mg capsule Take 1 capsule (50 mg) by mouth 3 times a day. 06/10/2022 Active Lyrica Active Comment on above: Take 75 mg by mouth three times a day. promethazine (Phenergan) 6.25 mg in sodium chloride 0.9% 50 mL IV (1 source) Start: 4 6.25 mg, intravenous, Administer over 15 Minutes, Once as needed, Nausea/vomiting, second line, Starting on Thu01/18/24 at 1133, For 1 dose, Recovery (only) topiramate 25 mg oral tablet (20 sources) Start: 4 take 1-2 tablets by mouth once daily at bedtime topiramate (TOPAMAX) 25 mg tablet Indications: Chronic daily headache Take 1-2 tablets by mouth daily at bedtime. 60 tablet 1 02/22/2024 Active traMADol hydrochloride 50 mg oral tablet (20 sources) Opioid Agonist Start: End: 4 take 1 tablet by mouth three times daily traMADol (ULTRAM) 50 mg tablet Indications: Chronic bilateral low back pain, unspecified whether sciatica present Take 1 tablet by mouth three times a day for 56 days. 84 tablet 1 05/02/2024 06/27/2024 Active Start: 06-10-2022 End: 04-26-2024 take 1 tablet by mouth three times daily traMADol (ULTRAM) 50 mg tablet Indications: Chronic bilateral low back pain, unspecified whether sciatica present Take 1 tablet by mouth three times a day for 28 days. 84 tablet 0 03/29/2024 04/26/2024 Active traMADol HCl Act patricia Comment on above: Take 50 mg by mouth three times daily. Walker (ULTRA-LIGHT ROLLATOR) misc (20 sources) Start: 06-12-2017 Walker (ULTRA-LIGHT ROLLATOR) misc 1 Units as needed. Rollator with seat 1 Each 06/12/2017 Active Start: 06-12-2017 Walker (ULTRA- LIGHT ROLLATOR) misc 1 Units as needed. Rollator with seat 1 Each 0 06/12/2017 Active Comment on above: 1 Units as needed. R ollator with seat Completed/Discontinued Medications Medication Drug Class(es) Dates Sig (Normalized) Sig (Original) amoxicillin 875 mg oral tablet (1 source) Penicillin-class Antibacterial Start: 02-23-2021 take 1 tablet by mouth every eight hours Amoxicillin 875 MG 1 tablet Orally every 8 hrs for 10 day(s) Feb, Not-Taking ascorbic acid 100 mg oral tablet (4 sources) Vitamin C End: 01-06-2024 take 1 tablet by mouth once daily Ascorbic Acid (VITAMIN C) 100 mg tablet Take 100 mg by mouth once daily. 0 01/06/2024 Discontinued Comment on above: Take 100 mg by mouth once daily. gabapentin 400 mg oral capsule (4 sources) Anti-epileptic Agent Start: 06-12-2017 End: 01-06-2024 take 1 capsule by mouth three times daily gabapentin (NEURONTIN) 400 mg capsule Take 1 capsule by mouth three times daily. 90 capsule 3 06/12/2017 01/06/2024 Discontinued Comment on above: Take 1 capsule by [facility] three times daily. ketamine 65 mg in NaCl 0.9% 64.5 mL (KETALAR) (5 sources) Start: 03-18-2024 End: 03-18-2024 ketamine 65 mg in NaCl 0.9% 64.5 mL (KETALAR) Start: 03-17-2024 End: 03-17-2024 ketamine 65 mg in NaCl 0.9% 64.5 mL (KETALAR) Start: 03-16-2024 End: 03-16-2024 ketamine 65 mg in NaCl 0.9% 64.5 mL (KETALAR) Start: 03-15-2024 End: 03-15-2024 ketamine 65 mg in NaCl 0.9% 64.5 mL (KETALAR) Start: 03-14-2024 End: 03-14-2024 ketamine 65 mg in NaCl 0.9% 64.5 mL (KETALAR) 5 ml midazolam 1 mg/ml injection (4 sources) Benzodiazepine Start: 03-15-2024 End: 03-18-2024 midazolam (PF) 2 mg injection (VERSED) Multivitamins with Minerals cap (4 sources) End: 01-06-2024 Multivitamins with Minerals cap Take by mouth. 0 01/06/2024 Discontinued Multivitamins wi th Minerals cap Take by mouth. 0 Active Comment on above: Take by mouth. nitrofurantoin, macrocrystals 25 mg oral capsule (4 sources) Nitrofuran Antibacterial End: 01-06-20 nitrofurantoin (MACRODANTIN) 25 mg capsule Take 10 mg by mouth as needed. 0 01/06/2024 Discontinued Comment on above: Take 10 mg by mouth as needed. omeprazole 20 mg delayed release oral capsule (14 sources) Proton Pump Inhibitor Start: 02-22-20 End: 04-08-20 take 1 capsule by mouth once daily omeprazole (PRILOSEC) 20 mg capsule Indications: Heartburn Take 1 capsule by mouth once daily. 30 capsule 0 02/22/2024 04/08/2024 Discontinued (Discontinued by Patient) 2 ml ondansetron 2 mg/ml injection (11 sources) Serotonin-3 Receptor Antagonist Start: 03-18-20 End: 03-18-20 ondansetron (PF) 8 mg injection (ZOFRAN) Start: 03-14-2024 End: 03-18-2024 ondansetron (PF) 8 mg inject ion (ZOFRAN) Start: 01-18-2024 4 mg, intraven ous, Once as needed, nausea/vomiting, first line, Starting on Thu01/18/24 at 1133, For 1 dose, Recovery (only), When administering via IV Push, administer over 3-5 minutes. Uqoeitcg-Xw-Zey-Fe-FA tab (4 sources) Start: 09-16-2018 End: 01-06-2024 take 1 tablet by mouth once daily Gjyvumyc-Ya-Kte-Fe-FA tab Take 1 tablet by mouth once daily. 30 tablet 11 09/16/2018 01/06/2024 Discontinued Start: 09-16-2018 take 1 tablet by luke th once daily Qwetvhbu-Ip-Zvd-Fe-FA tab Take 1 tablet by mouth once daily. 30 tablet 11 09/16/2018 Active Comment on above: Take 1 tablet by luke th once daily. 1000 ml sodium chloride 9 mg/ml injection (5 sources) Start: 4 End: 4 NaCl 0.9% iv bolus 250 mL tiZANidine 4 mg oral tablet (9 sources) Central alpha-2 Adrenergic Agonist Start: 3 End: 4 take 1 tablet by mouth every twenty-four hours as needed tiZANidine (ZANAFLEX) 4 mg tablet Take 4 mg by mouth at bedtime as needed (for msucle cramps.). 0 03/09/2023 02/22/2024 Discontinued (Course of therapy completed) Problems Active Problems Problem Classification Problem Date Documented Da te Episodic/Chronic Adjustment disorders (2 sources) Adjustment disorder with mixed anxiety and depressed mood; Translations: [Adjustment disorder with mixed anxiety and depressed mood] Onset: 04-14-2024 04-14-2024 Chronic Administrative/social admission (2 sources) Patient encounter status; Translations: [Persons encountering health services in other specified circumstances] 01-06-2024 Episodic Anxiety disorders (5 sources) Anxiety disorder, unspecified; Translations: [Mixed anxiety and depressive disorder] Onset: 10-06-2022 03-03-2024 Chronic Blindness and vision defects (3 sources) Strabismic amblyopia of left eye; Translations: [Strabismic amblyopia, left eye] 12-01-2023 Episodic Disorders of lipid metabolism (1 source) Pure hypercholesterolemia, unspecified; Translations: [Pure hypercholesterolemia, unspecified] Onset: 10-06-2022 Chronic E Codes: Struck by; against (1 source) Striking against or struck by other objects, initial encounter; Translations: [STRIKING AGNST/STRUCK OTH OBJ INIT] Onset: 02-17-2023 Episodic Genitourinary symptoms and ill-defined conditions (20 sources) Urge incontinence; Translations: [Urge incontinence of urine] Onset: 10-06-2022 Chronic Genitourinary symptoms and ill-defined conditions (4 sources) Dysuria; Translations: [Dysuria] Onset: 09-05-2021 Resolved: 09-05-2021 Episodic Headache; including migraine (1 source) Chronic daily headache; Translations: [Chronic daily headache] 02-22-2024 Episodic Immunizations and screening for infectious disease (1 source) Encounter for immunization; Translations: [ENCOUNTER FOR IMMUNIZATION] Onset: 02-17-2023 Episodic Meningitis (except that caused by tuberculosis or sexually transmitted disease) (1 source) Adhesive arachnoiditis; 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, unspecified] 03-04-2024 Episodic Mood disorders (1 source) Mood disorder; Translations: [Unspecified mood [affective] disorder] 01-08-2024 Chronic Mood disorders (2 sources) Mood disorders; Translations: [Depression, unspecified] Onset: 10-06-2022 Nausea and vomiting (1 source) Nausea; Translations: [Nausea] 02-22-2024 Episodic Nervous system congenital anomalies (20 sources) Spina bifida, unspecified; Translations: [Spina bifida] Onset: 05-17-2012 05-17-2012 Chronic Nervous system congenital anomalies (9 sources) H/O: musculoskeletal disease; Translations: [Personal history of 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] Onset: 01-19-2024 12-07-2023 Episodic Nutritional deficiencies (20 sources) Vitamin D deficiency; Translations: [Vitamin D deficiency, unspecified] Onset: 06-23-2023 01-25-2024 Chronic Open wounds of extremities (4 sources) Laceration without foreign body, left foot, initial encounter; Translations: [LACERATION W/O FB LT FOOT INITIAL] Onset: 02-16-2023 Episodic Other diseases of bladder and urethra (4 sources) Neuromuscular dysfunction of bladder, unspecified; Translations: [Neuromuscular dysfunction of bladder, unspecified] Onset: 08-28-2022 Chronic Other diseases of bladder and urethra (2 sources) Overactive bladder; Translations: [Overactive bladder] Onset: 10-06-2022 Chronic Other diseases of bladder and urethra (1 source) Other specified disorders of bladder; Translations: [Other specified disorders of bladder] Onset: 10-06-2022 Chronic Other diseases of bladder and urethra (20 sources) Neurogenic bladder; Translations: [Neuromuscular dysfunction of bladder, unspecified] Onset: 01-25-2024 01-25-2024 Chronic Other eye disorders (1 source) Monocular exotropia with other noncomitancies, left eye; Translations: [Monocular exotropia with other noncomitancies, left eye] Onset: 04-26-2024 Episodic Other gastrointestinal disorders (1 source) Heartburn; Translations: [Heartburn] 02-22-2024 Episodic Other lower respiratory disease (1 source) Respiratory obstruction; Translations: [Other specified respiratory disorders] 04-05-2024 Episodic Other nervous system disorders (7 sources) Chronic pain syndrome; Translations: [Chronic pain syndrome] 12-07-2023 Chronic Other nervous system disorders (1 source) Chronic pain; Translations: [Other chronic pain] 01-08-2024 Chronic Other nervous system disorders (4 sources) Other chronic pain; Translations: [Chronic bilateral low back pain, unspecified whether sciatica present] Onset: 01-19-2024 Chronic Other nervous system disorders (2 sources) Chronic pain syndrome; Translations: [Chronic pain syndrome] Onset: 01-19-2024 Chronic Other nervous system disorders (1 source) Postoperative pain ; Translations: [Other acute postprocedural pain] 01-18-2024 Episodic Other nutritional; endocrine; and metabolic disorders (7 sources) Morbid obesity; Translations: [Morbid (severe) obesity due to excess calories] Onset: 05-26-2017 05-26-2017 Chronic Other nutritional; endocrine; and metabolic disorders (3 sources) Obesity; Translations: [Obesity, unspecified] Onset: 01-18-2024 01-18-2024 Chronic Other nutritional; endocrine; and metabolic disorders (20 sources) Body mass index 40+ - severely obese; Translations: [Morbid (severe) obesity due to excess calories] Onset: 05-26-2017 01-25-2024 Chronic Other nutritional; endocrine; and metabolic disorders (1 source) Morbid (severe) obesity due to excess calories; Translations: [Morbid obesity with BMI of 40.0-44.9, adult ([facility])] Onset: 01-25-2024 Chronic Other nutritional; endocrine; and metabolic disorders (1 source) Body mass index (BMI) 40.0-44.9, adult; Translations: [Morbid obesity with BMI of 40.0-44.9, adult ([facility])] Onset: 01-25-2024 Chronic Other screening for suspected conditions (not mental disorders or infectious disease) (4 sources) Radiology result abnormal; Translations: [Abnormal findings on diagnostic imaging of other parts of musculoskeletal system] Onset: 02-03-2024 01-19-2024 Episodic Otitis media and related conditions (1 source) Acute transudative otitis media; Translations: [Other acute nonsuppurative otitis media, unspecified ear] 05-18-2023 Episodic Residual codes; unclassified (8 sources) H/O Spinal surgery; Translations: [Other specified postprocedural states] 12-07-2023 Episodic Residual codes; unclassified (3 sources) Other specified postprocedural states; Translations: [H/O laminectomy] Onset: 01-19-2024 Episodic Spondylosis; intervertebral disc disorders; other back problems (20 sources) Chronic low back pain; Translations: [Chronic bilateral low back pain, unspecified whether sciatica present] Onset: 10-03-2004 12-07-2023 Episodic Substance-related disorders (20 sources) Nicotine dependence, unspecified, uncomplicated; Translations: [Smoker] Onset: 05-17-2012 05-17-2012 Chronic Thyroid disorders (20 sources) Non-toxic uninodular goiter; Translations: [Nontoxic single thyroid nodule] Onset: 02-08-2024 02-08-2024 Chronic Unclassified (1 source) UNVACCINATED FOR COVID-19; Translations: [UNVACCINATED FOR COVID-19] Onset: 08-28-2022 Unclassified (2 sources) Chronic bilateral low back pain, unspecified whether sciatica present; Translations: [Chronic bilateral low back pain, unspecified whether sciatica present] Onset: 01-19-2024 Urinary tract infections (3 sources) Acute cystitis with hematuria; Translations: [Other cystitis without hematuria] Onset: 09-05-2021 Resolved: 09-05-2021 Episodic Viral infection (1 source) COVID-19; Translations: [COVID-19] Onset: 08-28-2022 Past or Other Problems Problem Classification Problem Date Documented Date Episodic/Chronic Allergic reactions (20 sources) Latex allergy status; Translations: [Allergy to latex] Onset: 05-17-2012 05-17-2012 Episodic Complications of surgical procedures or medical care (20 sources) Surgical wound finding; Translations: [Other complications of procedures, not elsewhere classified, initial encounter] Onset: 06-17-2017 Resolved: 01-25-2024 06-17-2017 Episodic Conditions associated with dizziness or vertigo (1 source) Dizziness and giddiness; Translations: [Dizziness and giddiness] Onset: 05-18-2023 Episodic Other eye disorders (20 sources) 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; Translations: [Monocular exotropia with other noncomitancies, left eye] Onset: 01-14-2024 01-14-2024 Episodic Other eye disorders (20 sources) Hypotropia of left eye; Translations: [Vertical strabismus, left eye] Onset: 01-14-2024 01-14-2024 Episodic Other injuries and conditions due to external causes (20 sources) Injury of musculoskeletal system; Translations: [Other injury of unspecified body region, initial encounter] Onset: 10-25-2003 Resolved: 05-17-2012 05-17-2012 Episodic Other nervous system disorders (2 sources) Other acute postprocedural pain; Translations: [Other acute postprocedural pain] Onset: 01-18-2024 Episodic Other non-traumatic joint disorders (20 sources) Pain in lower limb; Translations: [Pain in unspecified knee] Onset: 09-18-2008 Resolved: 01-25-2024 09-18-2008 Episodic Other and delivery including normal (20 sources) care status; Translations: [Encounter for supervision of other normal , unspecified trimester] Onset: 06-07-2012 Resolved: 01-06-2024 06-07-2012 Episodic Residual codes; unclassified (3 sources) Chills (without fever); Translations: [CHILLS WITHOUT FEVER] Onset: 08-25-2022 Episodic Residual codes; unclassified (20 sources) Past history of procedure; Translations: [Other specified health status] Onset: 05-26-2017 05-26-2017 Episodic Results Test Name Value Interpretation Reference Range Facility [facility] 05-19-2024 CNOV Office Visit (NPRC21 ) NEGROKARLENE Joel ([id number]) 1980 F Date Time Provider Department 05/19/24 2:00 PM REGINA AGRAWAL [id number] During your visit today, we recorded the following information about you: Pulse Respiration Blood pressure 81/minute 16/minute 108/89 Regina Agrawal PA-C 05/19/2024 2:03 PM Signed THE [facility] [place] May 19, 2024 SUBJECTIVE: Karlene Maldonado Negro presents to for a follow-up appointment for ketamine infusions. The patient states the infusion provided 50-60% relief for her back. Still having pain in other parts of her body. Ketamine infusions 03/14/24 to 03/18/24 Taking lyrica, tramadol, cannabis prn, flexeril, motrin, topamax States that she was sick for a week after the ketamine infusions - nausea. States that the ketamine treatment has improved her back pain. till having left sided back pain and left posterior thigh and anterior cruz pain. States that she has noticed her leg pain more since the back pain has improved. She has been able to do more since the ketamine treatment States that the weather changes affects and worsens her pain. Reports that she will be having thyroid surgery coming up this fall. Average pain over the last 7 days: 7/10 Since the end of the infusion, my overall status is: 6-7 Very much worsened Much worsened Minimally worsened No change Minimally improved Much improved Very much improved Patient Entered Questionnaires 12/07/2023 03/03/2024 04/14/2024 PROMIS CAT Fatigue PROMIS Fatigue T-Score 74 (severe) 66 (moderate) 66 (moderate) PROMIS Fatigue Percentile 1 5 5 03/03/2024 04/14/2024 PROMIS CAT Pain Interference PROMIS Pain Interference T-Score (range: 10 - 90) 72 (severe) 70 (moderate) PROMIS Pain Interference Percentile 1 2 12/07/2023 03/03/2024 04/14/2024 PROMIS CAT Satisfaction with Social Roles PROMIS - Satisfaction with Participation in Social Roles T-Score 31 (Low) 35 (Low) 36 (Low) PROMIS Social Role Satisfaction Percentile 3 7 8 12/07/2023 PROMIS CAT Sleep Disturbance PROMIS Sleep Disturbance T-Score 67 (moderate) PROMIS Sleep Disturbance Percentile 4 03/03/2024 04/14/2024 PROMIS CAT Self-Efficacy Manage Symptoms PROMIS Self-Efficacy for Managing Symptoms T-Score 39 (Low) 41 (Average) PROMIS Self-Efficacy Manage Symptoms Percentile 14 18 04/21/2017 01/05/2024 04/05/2024 PROMIS Global Health Scale Physical Health Percentile 7 2 2 2 Mental Health Percentile 5 5 9 9 12/07/2018 01/05/2024 04/05/2024 PROMIS Global Health - (T-Scores - the mean of general population = 50. Five points is a clinically meaningful difference.) Physical T-Score 23.5 29.6 29.6 29.6 Mental T-Score 21.2 33.8 36.3 36.3 03/03/2024 04/14/2024 Pain Catastrophizing Scale (PCS) - Scores Rumination Subscore 12 16 16 Magnification Subscore 9 7 7 Helplessness Subscore 17 18 18 PCS Total Score 38 41 41 01/05/2024 03/03/2024 04/14/2024 CANDACE - 7 SCORES Score 9 10 11 11 01/05/2024 03/03/2024 04/14/2024 PHQ-9 PHQ-2 Score 4 4 5 3 PHQ-9 Score 14 (Moderate Depression) 18 (Moderately Severe Depression) 15 (Moderately Severe Depression) Multiple values from one day are sorted in reverse-chronological order ASSESSMENT: Chronic pain syndrome (primary encounter diagnosis) Hx of spina bifida Chronic bilateral low back pain with sciatica, sciatica laterality unspecified Tethered cord (hcc) Hx of laminectomy Anxiety and depression PLAN: 1) will repeat ketamine in 6 months - wants to wait until after her surgery. 2) continue with current prescribed medications - discussed limiting/stop use of tramadol and cannabis during the next ketamine treatment 3) Continue to optimize diet, activity, and sleep. 4) follow up 4 weeks after the next ketamine treatment I spent a total of 22 minutes on the date of the service which included preparing to see the patient, [id number] patient care, completing clinical documentation, obtaining and/or reviewing separately obtained history, performing a medically appropriate examination, counseling and educating the patient/family/caregi diomedes, and ordering medications, tests, or procedures. Regina Agrawal PA-C Important Patient Information: 1. To schedule Pain Recovery appointments or post-injection office visits, please call: [phone] 2. The nursing staff and medical assistants are a part of your pain recovery team and will be handling your phone calls and inquiries. 3. Your study results and treatment plan will be discussed during a follow-up appointment. If you do not have a follow-up appointment and wish to discuss any issues directly with me, please call: [phone] to set-up an appointment. 4. [facility] is best used for refill requests or yes or no questions. Anything more complicated will likel (more content not included)... [facility] Telephone (OPHTCR) KARLENE TOM ([id number]) 1980 F Date Time Provider Department 04/27/24 [facility] During your visit today, we recorded the following information about you: Elva Schultz 04/27/2024 9:34 AM Signed AM spoke w/patient @ 9:31 AND she stated that her pharmacy hasn't received her RX's for the Tobramycin AND Erythromycin. Please send to [facility] in [facility] thanks PT ph [phone] Allergies As of Date: 04/27/2024 Noted Allergy Reaction LATEX 11/15/2007 10 - Anaphylaxis CIPROFLOXACIN 05/18/2023 4 - Hives 9 - Itching MORPHINE 05/26/2017 8 - GI Upset NEOSPORIN (NEOMYCIN-BACITRACIN- PO*10/07/2011 2 - Rash SILVER SULFADIAZINE 01/18/2024 14 - Other: See Comments ZINC OXIDE 10/07/2011 2 - Rash Date Reviewed: 04/26/2024 Reviewed by: Shelbie Polanco RN - Fully Assessed Reason for Visit: Medication Problem [65] Prescriptions as of 05/04/2024 - prednisoLONE acetate (PRED FORTE) 1 % ophthalmic suspension Use 1 Drop in both eyes three times a day for 7 days. - White Petrolatum-Mineral Oil (LACRI-LUBE) 56.8-42.5 % oint Use 1 application in both eyes three times a day. - cyclobenzaprine (FLEXERIL) 10 mg tablet Take 1 tablet by mouth as needed for muscle spasm. - traMADol (ULTRAM) 50 mg tablet Take 1 tablet by mouth three times a day for 56 days. - pregabalin (LYRICA) 75 mg capsule Take 1 capsule by mouth three times a day for 56 days. - nitrofurantoin monohydrate and macrocrystal (MACROBID) 100 mg capsule Take 1 capsule by mouth as needed. - topiramate (TOPAMAX) 25 mg tablet Take 1-2 tablets by mouth daily at bedtime. - IBUPROFEN (MOTRIN ORAL) Take by mouth. - Walker (ULTRA-LIGHT ROLLATOR) misc 1 Units as needed. Rollator with seat Problem List As Of Date 04/27/2024 Noted Resolved Unspecified site of sprain and strain [T14.8XXA]10/25/2003 05/17/2012 Pain in joint, lower leg [M25.569] 09/18/2008 01/25/2024 Smoker [F17.200] 05/17/2012 Spina bifida [Q05.9] 05/17/2012 Latex allergy [Z91.040] 05/17/2012 care, subsequent [Z34.80] 06/07/2012 01/06/2024 Tethered cord (HCC) [Q06.8] 05/15/2017 Morbid obesity with BMI of 40.0-44.9, adult (HC*05/26/2017 History of urinary self-catheterization [Z78.9] 05/26/2017 Lumbar surgical wound fluid collection [T81.89X*06/17/2017 01/25/2024 Monocular exotropia with other noncomitancies, *01/14/2024 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] 01/14/2024 Vitamin D deficiency [E55.9] 06/23/2023 Urge incontinence [N39.41] 01/01/2024 Neurogenic bladder [N31.9] 01/25/2024 Chronic lower back pain [M54.50, G89.29] 10/03/2004 Multiple thyroid nodules [E04.2] 04/08/2024 Encounter Status:Closed by ELVA SCHULTZ on 05/04/24 Normal [facility] ANES POSTPROC EVALon 024 ANES POSTPROC EVAL HNO ID: [id number] Author: ESTRELLA MOON MD Service: ? Author Type: Anesthesiologist Type: Anesthesia Postprocedure Evaluation Filed: 04/26/2024 17:49 Note Text: POST ANESTHESIA EVALUATION NOTE : 1980 Procedure Summary Date: 04/26/24 Room / Location: [address] [facility] Anesthesia Start: 1435 Anesthesia Stop: 1656 Procedure: REPAIR STRABISMUS 1 HORIZONTAL MUSCLE (Bilateral: Eye) Diagnosis: Monocular exotropia with other noncomitancies, left eye (Monocular exotropia with other noncomitancies, 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]) Surgeons: Elda Danielson MD Responsible Provider: Estrella Moon MD Anesthesia Type: general ASA Status: 3 Anesthesia Type: general Airway Type: ETT Last Vitals Vitals Value Taken Time BP 108/56 04/26/24 1728 Temp 36 ?C (96.8 ?F) 04/26/24 1658 Pulse 66 04/26/24 1728 Resp 16 04/26/24 1728 SpO2 99 % 04/26/24 1728 Post Anesthesia Patient Status Patient Evaluation: PACU. PACU/ICU Patient Condition: stable. Anticipated Disposition: phase 2 then home. Neurological Status: aware and responsive. Pulmonary Status: breathing comfortably on room air Airway Control: returned to baseline unsupported. Cardiovascular Status: stable. Pain Management: clinically adequate Postoperative Hydration: acceptable. Intraoperative Events: no significant anesthesia events Post Operative Nausea/Vomiting Status: no significant post operative nausea or vomiting Recommendation: continue current plan of care. Anesthesia Observations No notable events were associated with this procedure. Documented by Joanne Yusuf V, ANGIO TECHNOLOGIST.QUILL WORKER 04/26/2024 5:01 PM EDT SIGNATURE: Estrella Moon MD PATIENT NAME: Karlene Tom DATE: April 26, 2024 TIME: 5:49 PM CSN: [id number] Normal [facility] ANES PRE-OPon 04-26-2024 ANES PRE-OP HNO ID: [id number] Author: ESTRELLA MOON MD Service: ? Author Type: Anesthesiologist Type: Anesthesia Preprocedure Evaluation Filed: 04/26/2024 14:10 Note Text: PEDIATRIC ANESTHESIOLOGY DAY OF SURGERY NOTE : 1980 Procedure(s) (LRB): REPAIR STRABISMUS 1 HORIZONTAL MUSCLE (Bilateral) Surgeon(s): Elda Danielson MD Estimated body mass index is 44.47 kg/m? as calculated from the following: Height as of 04/08/24: 170.2 cm (5' 7 ). Weight as of 04/08/24: 128.8 kg (283 lb 15.2 oz). Most recent hematocrit and potassium results: Hematocrit (Point of Care) 31.5 06/17/2017 Potassium (Point of Care) 4.0 06/17/2017 Relevant Problems No relevant active problems Peds - Physical Exam Anesthesia Plan ASA 3 general intravenous induction Anesthetic plan and risks discussed with patient. Use of blood products discussed with patient. Patient / Surrogate agrees to blood products: yes Plan discussed with QUILL WORKER and SRNA. Vitals Value Taken Time BP 126/74 04/26/24 1315 Pulse 79 04/26/24 1315 Resp 16 04/26/24 1315 Temp 36 ?C (96.8 ?F) 04/26/24 1315 SpO2 97 % 04/26/24 1315 I have interviewed and examined the patient. I have reviewed the medical record and/or the pre-anesthesia evaluation, pertinent labs, and test results. This contains updated information obtained within 48 hours of Surgery/Procedure. SIGNATURE: Estrella Moon MD PATIENT NAME: Karlene Tom DATE: April 26, 2024 TIME: 2:09 PM CSN: [id number] Normal [facility] OPERATIVE NOon 04-26-2024 OPERATIVE NO HNO ID: [id number] Author: ELDA DANIELSON MD Service: Ophthalmology Author Type: Physician Type: Operative Report Filed: 04/26/2024 16:28 Note Text: Karlene Tom LOG ID: [id number] Surgery/Procedure Date: 04/26/2024 Incision/Procedure Start Time: 3:26 PM Incision Close/Procedure End Time: 4:17 PM Surgeon(s)/Procedural ist(s) and Drill Punch Operator(s): Surgeon(s) and Role: * Elda Danielson MD - Primary No Additional Staff PREOPERATIVE DIAGNOSES: 1. Left exotropia OPERATION: 1. Bilateral medial rectus resection, 5.0 mm POSTOPERATIVE DIAGNOSIS: 1. Left exotropia ANESTHESIA: General COMPLICATIONS: None. BLOOD LOSS: <0.05mL PROCEDURE NOTE: After the risks, benefits and alternatives were explained to the patient, she agreed to the procedure. Informed consent was obtained. The patient was brought to the operating room where the appropriate cardiac and pulmonary monitors were applied. The patient was then successfully intubated and placed under general endotracheal anesthesia. Drops of 2.5% phenylephrine were applied to both eyes. The patient was then prepped and draped in the usual sterile ophthalmic fashion. Attention was then directed to the right eye, where a lid speculum was placed. The globe was then rotated in elevation and abduction. An inferonasal conjunctival fornix incision was carried down to bare sclera. The medial rectus was placed on a muscle hook. Its overlying conjunctivae and tenon was displaced off the muscle. The anterior tenon and check ligaments were excised. The muscle was found to be in good condition. The medial rectus was then splayed with an additional Alek hook. It was marked 5.0 mm from the insertion site with straight calipers and marking pen. At the marked site, a double-armed 6-0 Vicryl suture was used to imbricate the muscle using a full-thickness central knot and locking bites at each end. A small straight hemostat was then used to crush the muscle anterior to the suture. This was then released after 2 minutes for hemostasis. The crushed muscle was excised as well as the remaining muscle stump. The medial rectus was then reattached to the original insertion site using partial-thickness scleral passes. The sutures were then tied and cut. The overlying conjunctiva was reapproximated with multiple interrupted 8-0 Vicryl sutures. Lidocaine 2% without epinephrine was injected around operative muscle. The lid speculum was removed. Attention was then turned to the left eye, where a lid speculum was placed. The globe was then rotated in elevation and abduction. An inferonasal conjunctival fornix incision was carried down to bare sclera. The medial rectus was placed on a muscle hook. Its overlying conjunctivae and tenon was displaced off the muscle. The anterior tenon and check ligaments were excised. The muscle was found to be in good condition. The medial rectus was then splayed with an additional Alek hook. It was marked 5.0 mm from the insertion site with straight calipers and marking pen. At the marked site, a double-armed 6-0 Vicryl suture was used to imbricate the muscle using a full-thickness central knot and locking bites at each end. A small straight hemostat was then used to crush the muscle anterior to the suture. This was then released after 2 minutes for hemostasis. The crushed muscle was excised as well as the remaining muscle stump. The medial rectus was then reattached to the original insertion site using partial-thickness scleral passes. The sutures were then tied and cut. The overlying conjunctiva was reapproximated with multiple interrupted 8-0 Vicryl sutures. Lidocaine 2% without epinephrine was injected around operative muscle. The lid speculum was removed. TobraDex eyedrops and erythromycin ointment were applied to both eyes. The patient was then extubated and awakened. The patient was taken to the recovery room in good condition. Postoperative instructions and a followup appointment were given to the patient's family. There were no complications. Dr. Danielson was present and scrubbed for the entire procedure. Normal [facility] 04-25-2024 [facility] Telephone (OTOLBD) KARLENE TOM ([id number]) 1980 F Date Time Provider Department 04/25/24 JAYDEN BUCKLEY NATALIYA During your visit today, we recorded the following information about you: Wicho Oviedo RN 04/25/2024 10:19 AM Signed Appeal letter created - after signature will be faxed to [phone]. Wicho Oviedo RN Allergies As of Date: 04/25/2024 Noted Allergy Reaction LATEX 11/15/2007 10 - Anaphylaxis CIPROFLOXACIN 05/18/2023 4 - Hives 9 - Itching MORPHINE 05/26/2017 8 - GI Upset NEOSPORIN (NEOMYCIN-BACITRACIN- PO*10/07/2011 2 - Rash SILVER SULFADIAZINE 01/18/2024 14 - Other: See Comments ZINC OXIDE 10/07/2011 2 - Rash Date Reviewed: 04/08/2024 Reviewed by: Milla Marques MA - Fully Assessed Prescriptions as of 04/25/2024 - traMADol (ULTRAM) 50 mg tablet Take 1 tablet by mouth three times a day for 28 days. - pregabalin (LYRICA) 75 mg capsule Take 1 capsule by mouth three times a day for 28 days. - nitrofurantoin monohydrate and macrocrystal (MACROBID) 100 mg capsule Take 1 capsule by mouth as needed. - topiramate (TOPAMAX) 25 mg tablet Take 1-2 tablets by mouth daily at bedtime. - IBUPROFEN (MOTRIN ORAL) Take by mouth. - cyclobenzaprine (FLEXERIL) 10 mg tablet Take 1 tablet by mouth three times daily as needed for Muscle Spasm. - Walker (ULTRA-LIGHT ROLLATOR) misc 1 Units as needed. Rollator with seat Problem List As Of Date 04/25/2024 Noted Resolved Unspecified site of sprain and strain [T14.8XXA]10/25/2003 05/17/2012 Pain in joint, lower leg [M25.569] 09/18/2008 01/25/2024 Smoker [F17.200] 05/17/2012 Spina bifida [Q05.9] 05/17/2012 Latex allergy [Z91.040] 05/17/2012 care, subsequent [Z34.80] 06/07/2012 01/06/2024 Tethered cord (HCC) [Q06.8] 05/15/2017 Morbid obesity with BMI of 40.0-44.9, adult (HC*05/26/2017 History of urinary self-catheterization [Z78.9] 05/26/2017 Lumbar surgical wound fluid collection [T81.89X*06/17/2017 01/25/2024 Monocular exotropia with other noncomitancies, *01/14/2024 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] 01/14/2024 Vitamin D deficiency [E55.9] 06/23/2023 Urge incontinence [N39.41] 01/01/2024 Neurogenic bladder [N31.9] 01/25/2024 Chronic lower back pain [M54.50, G89.29] 10/03/2004 Multiple thyroid nodules [E04.2] 04/08/2024 Letter Text Encounter Status:Closed by WICHO OVIEDO on 04/25/[address] [facility] HISTORY PHYSICALon HISTORY PHYSICAL HNO ID: [id number] Author: JOSE LUIS FRANCIS PA-C Service: ? Author Type: Physician Drill Punch Operator Type: H&P Filed: 04/21/2024 08:36 Note Text: [facility] [facility] HISTORY AND PHYSICAL EXAMINATION SERVICE DATE: 04/08/2024 SERVICE TIME: 11:05 AM PRIMARY CARE PHYSICIAN: Aidan Forrester MD REASON FOR VISIT: Karlene Tom is a 43 year old female who is scheduled for Bilateral - REPAIR STRABISMUS 1 HORIZONTAL MUSCLE at the request of Dr. Elda Danielson for consultation. My final recommendation will be communicated back to the requesting physician by way of shared medical record or letter. Assessment 1. Pre-op evaluation Surgery scheduled on 04/26/2024. 2. Spina bifida, unspecified hydrocephalus presence, unspecified spinal region (HCC) 3. Tethered cord (HCC) S/p myelomeningocele repair at (1979) with revision of tethered cord in 1994 and 2016. Follows with neurosurgery, Dr. Huber, last seen by Isaura Agrawal PA-C on 03/03/24. Also sees neurology, Vance Daley PA-C, last visit 01/19/24. Has topiramate (Topamax) for headaches as needed, but does not help. Chronic and stable. 4. Smoker 1 ppd x 20 years. No SOB and lungs CTAB and SpO2 99% RA. She is trying to quit. 5. Neurogenic bladder Receives botox injections and follows with urology at , Dr. Dominick Lopes. Self-caths multiple times a day. Just completed a round of macrobid for recent UTI, but no current UTI symptoms, stable. 6. Multiple thyroid nodules Monitored by endocrinology, Dr. Jailene Dave, last visit 03/31/24 and ENT, Dr. Jayden Buckley, last visit 04/05/24. In the process of work up, biopsied benign. Patient having occasional difficulty swallowing and occasional wheezing when laying flat. CT neck scheduled on 04/20/24. TSH Date Value Ref Range Status 02/22/2024 1.370 0.270 - 4.200 mIU/L Final Comment: If the patient is , TSH reference range varies by gestational period: First Trimester (weeks 9-12): 0.180-2.990 mIU/L Second Trimester: 0.110-3.980 mIU/L Third Trimester: 0.480-4.710 mIU/L Kristopher Faust, et al. A Practical Approach for the Verifications and Determination of Site- and Trimester-Specific Reference Intervals for Thyroid Function tests in . Thyroid, 2019:29:3:412-420. Eamon Taylor, et al. 2017 Guidelines of the [place] [employer] for the Diagnosis and Management of Thyroid Disease during and the . Thyroid, 2017:27:3:315-389. 04/21/24: CT neck canceled due to financial reasons at this time and was not completed. No visible tracheal deviation noticed on exam. 7. Morbid obesity with BMI of 40.0-44.9, adult (HCC) Body mass index is 44.47 kg/m?. 8. Chronic bilateral low back pain with right-sided sciatica Has chronic back pain that can radiates down her right leg. She has received ketamine infusions, but still has back pain. Taking tramadol, Lyrica, and ibuprofen and flexeril as needed. Spine following, Norma Lyman CNP. hronic and stable. Jones Activity Status Index: METS: Walk indoors, such as around the house (1.75 METs) Do light work around the house, such as dusting or washing dishes (2.70 METs) Take care of self; that is eating, dressing, bathing, using the toilet (2.75 METs) DASI Score: 7.2 (Limited due to back pain) Patient denies any chest pain or undue shortness of breath with the above physical activity. Clinical Frailty Scale: 3. Well, with treated comorbid disease STOP-Bang Score: BMI greater than 35 kg/m2 Denies snoring loudly Has not been observed to stop breathing or choking/gasping during sleep Denies having high blood pressure Patient 50 years old or younger Non-male patient STOP-Bang Score: 1 ANESTHESIA FINDINGS: Intubation History: No history of difficult intubation Significant Anesthesia Considerations: none Airway History: No history of difficult airway I - PHYSICAL EVALUATION AIRWAY Patient intubated: No. Tracheostomy tube not present Mallampati: II. TM distance: >3 FB. Neck ROM: full ROM without neurological symptoms. Mouth opening: adequate. Short neck: no. Thick neck: no Hicks present: no Microretrognathia/Deep ronagthia/Recessed Chin: No DENTAL Dental findings: teeth intact. Dentures, upper: complete. Dentures, lower: partial. II - ANESTHESIA PLAN Beta Lucila Monitoring Plan Post Procedure Analgesic Plan Prepared for surgery: This patient is optimally prepared for surgery. CONSULTS: Patient does not require consults for optimization at this time. The Following Tests/Procedures Have Been Initiated: No orders of the defined types were placed in this encounter. , Labs not indicated per [facility] protocol, EKG not indicated per [facility] protocol Labs reviewed from 10/06/22. UA/UC reviewed from 01/25/24. Planned Anesthetic: Per anesthesia choice Subjective CHIEF COMPLAINT: Monocular exotropia with other no (more content not included)... [facility] 04-05-2024 [facility] Office Visit (OTOLBD ) KARLENE TOM ([id number]) 1980 F Date Time Provider Department 04/05/24 3:15 PM JAYDEN BUCKLEY OTOLBD During your visit today, we recorded the following information about you: Jayden Buckley MD 04/05/2024 4:35 PM Signed OTOLARYNGOLOGY-HEAD AND NECK SURGERY CC: Karlene Tom is a 43 year old female who is seen at the request of Vance Daley for evaluation of thryoid nodle . My findings and recommendations will be communicated to the referring provider via the shared electronic medical record. Assessment: ASSESSMENT/PLAN: 1. Multiple thyroid nodules - ICD9: 241.1, ICD10: E04.2 At this point benign unclear Will get ct scan neck to sort out Jayden Buckley MD 2. Airway compromise ct scan to sort out impact on airway Medical Decision Making: Problems: Moderate: Acute complicated injury Data: Unique source(s) for external note(s) reviewed: 1 Unique test result(s) reviewed: 1 Risk: Moderate: Moderate risk from testing/treatment Medical Decision Making Level: 4 - Moderate HPI: here with history of thyroid nodules and for evaluation biopsies benign ALLERGIES Allergen Reactions Latex Anaphylaxis Ciprofloxacin Hives, Itching Morphine GI Upset Neosporin [Neomycin* Rash Silver Sulfadiazine Other: See Comments Zinc Oxide Rash Current Outpatient Medications Medication Sig traMADol (ULTRAM) 50 mg tablet Take 1 tablet by mouth three times a day for 28 days. pregabalin (LYRICA) 75 mg capsule Take 1 capsule by mouth three times a day for 28 days. IBUPROFEN (MOTRIN ORAL) Take by mouth. acetaminophen (TYLENOL) 325 mg tablet Take 1 tablet by mouth every 6 hours as needed. cyclobenzaprine (FLEXERIL) 10 mg tablet Take 1 tablet by mouth three times daily as needed for Muscle Spasm. Walker (ULTRA-LIGHT ROLLATOR) misc 1 Units as needed. Rollator with seat nitrofurantoin monohydrate and macrocrystal (MACROBID) 100 mg capsule Take 1 capsule by mouth two times a day. (Patient not taking: Reported on 04/05/2024) traMADol (ULTRAM) 50 mg tablet Take 50 mg by mouth three times a day. (Patient not taking: Reported on 04/05/2024) omeprazole (PRILOSEC) 20 mg capsule Take 1 capsule by mouth once daily. (Patient not taking: Reported on 03/25/2024) topiramate (TOPAMAX) 25 mg tablet Take 1-2 tablets by mouth daily at bedtime. (Patient not taking: Reported on 03/25/2024) No current facility-administered medications for this visit. PAST MEDICAL HISTORY Diagnosis Date Abnormal Pap smear of cervix LEEP History of urinary self-catheterization 05/26/2017 ISC Morbid obesity (HCC) depression Spina bifida (HCC) PAST SURGICAL HISTORY Procedure Laterality Date COLPOSCOPY CERVIX UPPER/ADJACENT VAGINA 05/25 Colposcopy CONIZATION CERVIX W/WO DANDC RPR ELTRD EXC 07/25 LEEP-Cervix PAST SURGICAL HISTORY OF 04/26 r leg surgery PAST SURGICAL HISTORY OF 2006 pins removed - r leg PAST SURGICAL HISTORY OF 2002 or 2003 stomach revision Social History: Social History Tobacco Use Smoking status: Every Day Packs/day: 1.00 Years: 20.00 Additional pack years: 0.00 Total pack years: 20.00 Types: Cigarettes Smokeless tobacco: Never Vaping Use Vaping Use: Never used Substance Use Topics Alcohol use: No Drug use: Yes Types: Marijuana Comment: occasional gummies at HS FAMILY HISTORY Problem Relation Age of Onset Cancer Mother skin other (macular degenertion) Mother Mental illness Mother Cancer Father bladder Hypertension Father other (pre diabetes) Father other (pe) Father Ischemic Heart Disease Father Breast Cancer Paternal Grandmother ROS: GENERAL: No weight loss, malaise or fevers. HEENT: Negative for frequent or significant headaches, No changes in hearing or vision, No nasal bleeding, congestion or rhinorrhea, No sore throat or change in voice NECK: Negative for lumps, goiter, pain and significant neck swelling RESPIRATORY: Negative for cough, hemoptysis, wheezing or shortness of breath CARDIOVASCULAR: Negative for chest pain, leg swelling or palpitations. GASTROINTESTINAL: No nausea, vomiting, or diarrhea MUSCULOSKELETAL: Negative for joint pain or swelling, back pain or muscle pain. NEUROLOGIC: Negative for focal numbness or weakness, headaches and dizziness or syncope. SKIN: Negative for lesions, rash, and itching. HEMATOLOGIC/LYMPHATIC /IMMUNOLOGIC: Negative for prolonged bleeding, bruising easily or swollen nodes. ENDOCRINE: Negative for cold or heat intolerance, polyuria, polydipsia and goiter. PHYSICAL EXAM: On physical examination Karlene Tom is a well-developed, well nourished female. Her speech is wnl and her voice is wnl. Mental status revealed patient to be alert and oriented. Mood is appropriate. Details of the physical examination: HEAD AND FACE: Physical examination of the head, neck, exte (more content not included)... Normal [facility] 04-05-2024 [facility] Telephone (ENWSTR) KARLENE TOM ([id number]) 1980 F Date Time Provider Department 04/05/24 JAILENE DAVE ENWSTR During your visit today, we recorded the following information about you: Jaylyn Newman 04/05/2024 12:46 PM Signed Patient is asking for a return call with biopsy results Jailene Dave MD 04/07/2024 5:40 PM Addendum Please call and tell the patient that the results of biopsy of both the nodules is benign. But as we discussed on her appointment, recommendation for surgery still exists due to size of the right mid nodule (5.5 cm) I placed referral to Endocrine surgery on clinic visit If she has any additional questions or concerns, I am here to answer/clarify. Thank you, Maya Tierney MA 04/08/2024 9:04 AM Signed Left detailed message on identified voice mail. Gave results and phone number to schedule with endocrine surgery as noted by provider. Maya Lewis MA Allergies As of Date: 04/05/2024 Noted Allergy Reaction LATEX 11/15/2007 10 - Anaphylaxis CIPROFLOXACIN 05/18/2023 4 - Hives 9 - Itching MORPHINE 05/26/2017 8 - GI Upset NEOSPORIN (NEOMYCIN-BACITRACIN- PO*10/07/2011 2 - Rash SILVER SULFADIAZINE 01/18/2024 14 - Other: See Comments ZINC OXIDE 10/07/2011 2 - Rash Date Reviewed: 04/05/2024 Reviewed by: Batool Arreola RN - Fully Assessed Reason for Visit: Results [95] Primary Visit Diagnosis:Non-toxic multinodular goiter [E04.2] Prescriptions as of 04/08/2024 - traMADol (ULTRAM) 50 mg tablet Take 1 tablet by mouth three times a day for 28 days. - pregabalin (LYRICA) 75 mg capsule Take 1 capsule by mouth three times a day for 28 days. - nitrofurantoin monohydrate and macrocrystal (MACROBID) 100 mg capsule Take 1 capsule by mouth two times a day. - traMADol (ULTRAM) 50 mg tablet Take 50 mg by mouth three times a day. - omeprazole (PRILOSEC) 20 mg capsule Take 1 capsule by mouth once daily. - topiramate (TOPAMAX) 25 mg tablet Take 1-2 tablets by mouth daily at bedtime. - IBUPROFEN (MOTRIN ORAL) Take by mouth. - acetaminophen (TYLENOL) 325 mg tablet Take 1 tablet by mouth every 6 hours as needed. - cyclobenzaprine (FLEXERIL) 10 mg tablet Take 1 tablet by mouth three times daily as needed for Muscle Spasm. - Walker (ULTRA-LIGHT ROLLATOR) misc 1 Units as needed. Rollator with seat Problem List As Of Date 04/05/2024 Noted Resolved Unspecified site of sprain and strain [T14.8XXA]10/25/2003 05/17/2012 Pain in joint, lower leg [M25.569] 09/18/2008 01/25/2024 Smoker [F17.200] 05/17/2012 Spina bifida [Q05.9] 05/17/2012 Latex allergy [Z91.040] 05/17/2012 care, subsequent [Z34.80] 06/07/2012 01/06/2024 Tethered cord (HCC) [Q06.8] 05/15/2017 Morbid obesity with BMI of 40.0-44.9, adult (HC*05/26/2017 History of urinary self-catheterization [Z78.9] 05/26/2017 Lumbar surgical wound fluid collection [T81.89X*06/17/2017 01/25/2024 Monocular exotropia with other noncomitancies, *01/14/2024 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] 01/14/2024 Vitamin D deficiency [E55.9] 06/23/2023 Urge incontinence [N39.41] 01/01/2024 Neurogenic bladder [N31.9] 01/25/2024 Chronic lower back pain [M54.50, G89.29] 10/03/2004 Encounter Status:Closed by MAYA LEWIS on 04/08/24 [facility] CNOVon 03-31-2024 CNOV Office Visit (ENWSTR ) KARLENE TOM ([id number]) 1980 F Date Time Provider Department 03/31/24 3:00 PM JAILENE DAVE ENWSTR During your visit today, we recorded the following information about you: Temperature Pulse Blood pressure Weight 98.1 degrees 92/minute 121/80 128.5 kg Height 1.702 m Jailene Dave MD 03/31/2024 3:58 PM Signed Fine Needle Aspiration(FNA) Biopsy of thyroid nodule Karlene Tom was identified by name and date, acknowledges here to have a Fine Needle Aspiration(FNA) of bilateral thyroid nodules performed. Risks, benefits and alternatives D/W patient by nd Time/Date: March 31, 2024 2:59 PM Referred by: Jailene Dave MD Primary Qa Tech: Jailene Dave MD Blood thinners: no Discussed the risk and benefits of the procedure in detail. Explained that it is done under US guidance. Usually we do 3-4 needle passes for each nodule to ensure adequate sample. Explained the five possible outcomes from the pathology: 1. benign 2. Malignant 3. Suspicious for malignancy 4. Insufficient sample 5. Follicular neoplasm Patient verbalised understanding. Informed consent obtained Time out procedure performed UNIVERSAL PROTOCOL / SAFETY CHECKLIST Procedure to be Performed: FNAB of 1.8 cm right isthmus nodule and 5.5 cm right mid thyroid nodule Sign In: A Moment of CARE was completed. Personnel directly involved with the procedure wore the appropriate PPE (Personal Protective Equipment). Patient/Surrogate Stated/Verified: PATIENT VERIFIED(optional for EMERGENT procedures): Patient name, Date of , Relevant allergies, and The intended procedure Time Out Communication: Intended patient and procedure match the source documents. Consent documented and matches the intended procedure. Relevant labs, photos, and/or imaging studies have been reviewed. Sign Out: SIGN OUT (optional for EMERGENT procedures): All specimen containers correctly labeled. Jailene Dave MD Procedure: Performed under ultrasound guidance Skin was prepped with alcohol swabs Ice and numbing spray were both used to numb the skin FNA Bx X 4 performed with a 25-G needle under U/S guidance for both trhe right sided nodules by me During the aspiration needle was observed inside the nodule on 4 passes. Patient tolerated the procedure well Complications: NONE Character of Aspirate: On the 4 needle passes small amount of bloody liquid was obtained. Sign out communication: Patient was given instructions regarding any complications that may arise. Impression and Suggested Follow-up: Results will be communicated to the patient by Dr Dave and plans for management and follow up will be made based on these results. MD Jolie Joya Snigdha Reddy, MD 03/31/2024 3:55 PM Signed You had Fine needle aspiration of right sided thyroid nodules. 1) If there is soreness to touch or swallowing, can use ice over the area as needed 2) Can use Tylenol 500 mg every 6-8 hrs as needed (avoid using Ibuprofen,Aleeve as these can cause increased bleeding) 3) If you develop intense pain and/or swelling at the site of biopsy, please go to the ER 4) Results with be available in one week. If you do not hear from us in that time frame, please call the office for an update. Referring Provider: JAILENE DAVE [[id number]] Allergies As of Date: 03/31/2024 Noted Allergy Reaction LATEX 11/15/2007 10 - Anaphylaxis CIPROFLOXACIN 05/18/2023 4 - Hives 9 - Itching MORPHINE 05/26/2017 8 - GI Upset NEOSPORIN (NEOMYCIN-BACITRACIN- PO*10/07/2011 2 - Rash SILVER SULFADIAZINE 01/18/2024 14 - Other: See Comments ZINC OXIDE 10/07/2011 2 - Rash Date Reviewed: 03/31/2024 Reviewed by: Maya Lewis MA - Fully Assessed Reason for Visit: Thyroid Nodule [3960] Cmt: FNAB rt mid lower pole and rt isthmus Primary Visit Diagnosis:Thyroid nodule [E04.1] Order(s):CYTOLOGY NON-DIRECTOR OF DIGITAL MARKETING [GIH1068] Order #: [id number]. #:[id number] ENDO THYROID/LYMPH NODE FNA [[id number]] Order #: [id number] THYROID/PARATHYROID (POC) ENDO USE ONLY [[id number]] Order #: [id number]. #:[id number]: 1 ENDO THYROID/LYMPH NODE FNA [6013055] Order #: [id number] CYTOLOGY NON-DIRECTOR OF DIGITAL MARKETING [[id number]] Order #: [id number]. #:[id number] US THYROID/PARATHYROID (POC) ENDO USE ONLY [[id number]] Order #: [id number]. #:[id number]: 1 Prescriptions as of 04/01/2024 - traMADol (ULTRAM) 50 mg tablet Take 1 tablet by mouth three times a day for 28 days. - pregabalin (LYRICA) 75 mg capsule Take 1 capsule by mouth three times a day for 28 days. - nitrofurantoin monohydrate and macrocrystal (MACROBID) 100 mg capsule Take 1 capsule by mouth two times a day. - traMADol (ULTRAM) 50 mg tablet Take 50 mg by mouth three times a day. - omeprazole (PRILOSEC) 20 mg (more content not included)... Normal [facility] CYTOLOGY NON-GYNon CASE REPORT Normal [facility] Comment on above: Order Comment: Speci men Type: SPECIMEN OBTAINED BY ASPIRATIONOrdering Facility: [facility] Address: [address] [place] [address] Result Comment: [facility] Cytology Report Case: [id number] Authorizing Provider: Jailene Dave, Collected: 03/31/2024 02:57 PM Ordering Location: Endocrinology Received: 04/01/2024 08:58 AM Pathologist: Abdirahman Rai MD Specimens: A) - Thyroid, Right, Lobe, MID/LOWER B) - Thyroid, Isthmus, RIGHT ISTHMUS Performed By: #### C YTONON ####[facility] LABCLIA [id number] [address] OF [facility] CLINICAL HISTORY thyroid nodules Normal [facility] Comment on above: Order Comment: Speci men Type: SPECIMEN OBTAINED BY ASPIRATIONOrdering Facility: [facility] Address: [address] [place] [address] Result Comment: Afri ma received Performed By: #### C YTONON ####[facility] LABCLIA [id number] [address] FINAL DIAGNOSIS Normal [facility] Comment on above: Order Comment: Speci men Type: SPECIMEN OBTAINED BY ASPIRATIONOrdering Facility: [facility] Address: [address] [place] [address] Result Comment: A - Thyroid, Right, Lobe, Aspirate/Fine Needle Aspirate - MID/LOWER Benign. Follicular cells, oncocytic cells and cyst contents. B - Thyroid, Isthmus, Aspirate/Fine Needle Aspirate - RIGHT ISTHMUS Benign. Follicular cells, cyst contents and colloid. The following cell blocks were associated with this case: A1 Cell Block, Alcohol Fixed B1 Cell Block, Alcohol Fixed Performed By: #### C YTONON ####[facility] LABCLIA [id number] [address] OF [facility] FINAL PERFORMING LAB Normal [facility] Comment on above: Order Comment: Speci men Type: SPECIMEN OBTAINED BY ASPIRATIONOrdering Facility: [facility] Address: [address] [place] [address] Result Comment: Tech nical component, taxicab driver screening performed at [facility], [address] [place] [address] CLIA# [id number] Diagnostic interpretation performed at [facility], [address] [place] [address] CLIA# [id number] Piccolo Mechanic: Jasen Molina M.D. Performed By: #### C YTONON ####[facility] LABCLIA [id number] [place] [address] [place] GROSS DESCRIPTION Normal [facility] Comment on above: Order Comment: Speci men Type: SPECIMEN OBTAINED BY ASPIRATIONOrdering Facility: [facility] Address: [address] [place] [address] Result Comment: A. T hyroid, Right, Lobe 30 cc cloudy red CytoLyt with scant particles. ThinPrep and Cell Block prepared. Afirma sample received B. Thyroid, Isthmus 30 cc hazy light pink CytoLyt with scant particles. ThinPrep and Cell Block prepared. Afirma sample received Performed By: #### C YTONON ####[facility] LABCLIA [id number] [place] [address] [place] US Thyroid glandon 4 [facility] Radiology Study observation (narrative) [facility] Radiology Study observation (narrative) [facility] CNOVon 03-25-2024 CNOV Office Visit (ENWSTR ) KARLENE TOM ([id number]) 1980 F Date Time Provider Department 03/25/24 8:00 AM JAILENE DAVE ENWSTR During your visit today, we recorded the following information about you: Pulse Respiration Blood pressure Weight 74/minute 20/minute 126/84 128.4 kg Height Last Period 1.702 m 03/05/24 Jailene Dave MD 04/06/2024 3:30 PM Addendum [facility] Initial Clinic Visit Note NAME: Karlene Tom PCP: Aidan Forrester MD Requesting Provider: Aidan Forrester [address] [address] My final recommendations will be communicated back to the requesting physician by way of shared medical record or letter via US mail. Chief Complaint: Multiple Thyroid nodules HPI: Karlene Tom is a 43 year old female was referred for evaluation of a thyroid nodules. History in brief, she was noted to have thyroid nodules on MRI cervical spine done for spina bifida. Further evaluation with thyroid US revealed multiple nodules with the dominant one being 5.5 cm in maximum diameter. Patient reports her symptoms started 6 months ago, endorsed with multiple doctors and was told that her symptoms are unrelated to her thyroid Related symptoms: She reports dizziness, Nausea, hair loss, sleeping a lot She constantly clears her throat- choking on food In November 2023, she had coughing up of something looking like a tissue, she was scared if it was her tonsil- had sore throat prior to it and sore throat resolved soon after She complains of feeling apprehensive since she was told about thyroid nodules Diff breathing- she wheezes when she laying down Hoarseness or sore throat when she talks a lot History of radiation exposure to the neck: no No environmental or occupational exposure to radioactive materials such as proximity to nuclear plants or living in areas of endemic high radioactivity History of smoking: no Family history of thyroid cancer: no Family history of thyroid nodules: no PAST MEDICAL HISTORY Diagnosis Date Abnormal Pap smear of cervix LEEP History of urinary self-catheterization 05/26/2017 ISC Morbid obesity (HCC) depression Spina bifida (HCC) PAST SURGICAL HISTORY Procedure Laterality Date COLPOSCOPY CERVIX UPPER/ADJACENT VAGINA 05/25 Colposcopy CONIZATION CERVIX W/WO DANDC RPR ELTRD EXC 07/25 LEEP-Cervix PAST SURGICAL HISTORY OF 04/26 r leg surgery PAST SURGICAL HISTORY OF 2006 pins removed - r leg PAST SURGICAL HISTORY OF 2002 or 2003 stomach revision ALLERGIES Allergen Reactions Latex Anaphylaxis Ciprofloxacin Hives, Itching Morphine GI Upset Neosporin [Neomycin* Rash Silver Sulfadiazine Other: See Comments Zinc Oxide Rash Social History Tobacco Use Smoking status: Every Day Packs/day: 1.00 Years: 20.00 Additional pack years: 0.00 Total pack years: 20.00 Types: Cigarettes Last attempt to quit: 03/21/2015 Years since quittin.0 Smokeless tobacco: Never Substance Use Topics Alcohol use: No Drug use: Yes Types: Marijuana Comment: occasional gummies at HS FAMILY HISTORY Problem Relation Age of Onset Cancer Mother skin other (macular degenertion) Mother Mental illness Mother Cancer Father bladder Hypertension Father other (pre diabetes) Father other (pe) Father Ischemic Heart Disease Father Breast Cancer Paternal Grandmother MEDICATIONS: Current Outpatient Medications on File Prior to Visit Medication Sig nitrofurantoin monohydrate and macrocrystal (MACROBID) 100 mg capsule Take 1 capsule by mouth two times a day. traMADol (ULTRAM) 50 mg tablet Take 50 mg by mouth three times a day. pregabalin (LYRICA) 75 mg capsule Take 1 capsule by mouth three times a day for 28 days. acetaminophen (TYLENOL) 325 mg tablet Take 1 tablet by mouth every 6 hours as needed. cyclobenzaprine (FLEXERIL) 10 mg tablet Take 1 tablet by mouth three times daily as needed for Muscle Spasm. omeprazole (PRILOSEC) 20 mg capsule Take 1 capsule by mouth once daily. (Patient not taking: Reported on 03/25/2024) topiramate (TOPAMAX) 25 mg tablet Take 1-2 tablets by mouth daily at bedtime. (Patient not taking: Reported on 03/25/2024) IBUPROFEN (MOTRIN ORAL) Take by mouth. (Patient not taking: Reported on 03/25/2024) Walker (ULTRA-LIGHT ROLLATOR) misc 1 Units as needed. Rollator with seat (Patient not taking: Reported on 03/25/2024) No current facility-administered medications on file prior to visit. REVIEW OF SYSTEMS: As per HPI PHYSICAL EXAMINATION: BP: 126/84 Pulse: 74 Resp: 20 SpO2: 98 % General: no acute distress, alert and orientated X 3 Eyes:EOMI, pupils are equally round, anicteric sclera Neck - supple, no significant adenopathy, Thyroid: significantly enlarged in size right>left, asymm (more content not included)... Normal [facility] CNOVon 03-03-2024 CNOV Office Visit (NPRC21 ) NEGROKARLENE NIXON ([id number]) 1980 F Date Time Provider Department 03/03/24 1:00 PM REGINA AGRAWAL NPRC21 During your visit today, we recorded the following information about you: Pulse Blood pressure Weight Height 80/minute 147/83 128.4 kg 1.539 m Regina Agrawal PA-C 03/03/2024 1:57 PM Signed THE [facility] Neurological [place] March 03, 2024 Karlene Tom is a 43 year old single female, applying for disability, who lives with significant other, a daughter, and a son in [place], [place]. She was referred by Norma Lyman [address] [place] [address]. Consultation requested by Shubham Lyman for an opinion regarding Ms. Karlene Tom, and my final recommendations will be communicated back to the requesting physician by way of shared medical record or letter via US mail. PDMP website checked and validated. All prescriptions have been APPROPRIATELY filled. No suspicious activity was identified. 03/02/2024 by Regina Agrawal PA-C Chief complaint: low back pain SUBJECTIVE: Patient presents with complaints of low back pain and leg pain. Has been evaluated by neurology, spine. States that she has had pain since her childhood. Has a history of spina bifida and has undergone multiple surgeries for tethered cord. Last surgery was in 2017. States that she almost in the last surgery - leaked spinal fluid and it was c/b an infection. Reports that she fractured her legs in 2005 and 2007 - fell both times - the leg pain has been worse since then. Reports pain in her low back, neck, legs. Reports intermittent radiating pain from her back down her buttocks, the posterior thighs and the medial legs to the toes. Right>left. Notes a burning sensation in her back. Notes [place] horses and leg spasms. States that the pain can last for a few days to a few weeks. States that her legs burn when she stands. Has tight hamstrings. Reports numbness or tingling - pins and needles sensations - from her waist down. States that the pain is constant Describes the pain as tearing, stinging, throbbing, sharp, stabbing. Pain severity 03/30 Aggravating factors - movement Alleviating factors - meds, massage, repositioning. Denies any new bowel or bladder dysfunctions - but notes that she self cath - has neurogenic bladder Denies any new balance or dexterity issues - but reports that she will walk sideways and will walk into moore. Reports daily nausea and headaches - behind her eyes or the posterior head. Interventions - chiropractor, PT, TPI, aqua therapy, botox for her bladder every 3-6 months Medications - lyrica, tramadol, cannabis Past medications - gabapentin, flexeril, topamax, ibuprofen Hx of spine surgery: L4-5 Laminectomy for cord untethering - 2017 Hx of sacral lipoma surgery PMH - hx of spina bifida - myelomeningocele repair at , tethered cord x3, arachnoiditis, smoker, urge incontinence, neurogenic bowel and bladder, morbid obesity, vit D def, thyroid nodules, depression and anxiety, chronic UTI Spine Red Flag Karlene Tom has no red flag symptoms. Anesthesia: denies - but needs more Schizophrenia: denies : denies CHF: denies Uncontrolled HTN: denies Recent [place]: denies Arrythmias: denies Afib: denies Hyperthyroid: denies Aortic Stenosis: denies Liver Failure: denies Increased ICP: denies Average pain over the last 7 days: -04/30 Previous pain treatments: physical therapy, aquatherapy, medications, chiropractic manipulation Functional Limitations: The patient has been unable to work since 2011. Time spent reclining is 80 percent of hours/day (includes time in bed, recliner, sofa, ottoman, etc.). Wellness: How would you describe your diet: poor - eating 1x day. Drinking water, coffee How many days a week do you exercise: denies How many hours do you sleep a night: no sleep schedule - might sleep in 3 hour increments. Emotional Symptoms: include sadness, depression, crying spells, anxiety, frustration, irritability, and anger The patient has loss of interest, energy, libido, appetite, and sleep The patient has passive thoughts of suicide, but denies plan and intent. Non-medical stresses: Include relationship conflicts, financial problems, legal problems, and medical problems Family involvement: is appropriate/helpful and supportive Financial Status: has applied for disability income Allergies: Reviewed in the EMR Current Medications: Reviewed in the EMR PAST MEDICAL HISTORY Diagnosis Date Abnormal Pap smear of cervix LEEP History of urinary self-catheterization 05/26/2017 ISC Morbid obesity (HCC) depression Spina bifida (HCC) PAST SURGICAL HISTORY Procedure Laterality Date COLPOSCOPY CERVIX UPPER/ADJACENT VAGINA (more content not included)... Normal [facility] CNOVon 02-22-2024 CNOV Office Visit (INTMLN ) KARLENE TOM ([id number]) 1980 F Date Time Provider Department 02/22/24 2:20 PM AIDAN MONTENEGRO INTMLN During your visit today, we recorded the following information about you: Temperature Pulse Blood pressure Weight 98.1 degrees 75/minute 128/80 128.7 kg Height Last Period 1.694 m 02/03/24 Aidan Montenegro MD 02/22/2024 5:44 PM Signed Karlene Maldonado Negro is a 43 year old female Chief complaint: Rx Refills and Thyroid Problem (4 nodules. Neck [pain ) Subjective HPI: US thryoid, patient with thyroid nodules. Referred to endocrinology to consider FNA. C/o headache forehead, daily, continuous, worsen with light exposure, not throbbing. Also fatigue, dizziness, nausea, decreased appetite for past 3-4 month, daily, improves with rest, treated with Treated with ibuprofen 600 mg 3 tablets daily, aleve 3 tablet daily. Tramadol 50 mg 3 times daily, and pregabalin H/o spina bifida and tethered cord with myelomeningocele repair at and reviion on 1994 and 2016, complicated with neurogenic bowel and bladder. Follow up Neurology, last appointment 01/19/24 H/o neurogenic bladder had botox injection last week. Prescribed ciprofloxacin and reports had mouth and body itching Follow up Urology H/o chronic pain in low back pain and leg pain chronic, treated with pregabalin and tramadol. Follow up neurology and neurosurgery. [facility] Medical Records reviewed. Medical records reviewed. Shon Angel NP, prescribing tramadol for spina bifida pain until evaluation with pain management. Review of Systems Constitutional: Positive for fatigue. Negative for chills, fever and unexpected weight change. No recent history of trauma, surgery, infection or malignancy. HENT: Positive for sore throat and voice change. Negative for congestion, rhinorrhea and trouble swallowing. Respiratory: Positive for cough. Negative for shortness of breath. Cardiovascular: Negative for chest pain. Gastrointestinal: Positive for nausea. Negative for abdominal pain and vomiting. Positive heartburn and reflux. Genitourinary: Negative for pelvic pain. Musculoskeletal: Positive for arthralgias, back pain and myalgias. Neurological: Positive for headaches. Psychiatric/Behaviora l: Negative for dysphoric mood and sleep disturbance. The patient is not nervous/anxious. Objective BP 128/80 Pulse 75 Temp 36.7 ?C (98.1 ?F) Ht 169.4 cm (5' 6.69 ) Wt 128.7 kg (283 lb 11.7 oz) LMP 02/03/2024 (Approximate) SpO2 97% BMI 44.85 kg/m? BMI Readings from Last 3 Encounters: 02/22/24 : 44.85 kg/m? 01/25/24 : 44.88 kg/m? 01/19/24 : 45.34 kg/m? Last Wt 02/22/24 : 128.7 kg (283 lb 11.7 oz) 01/25/24 : 128.8 kg (283 lb 15.2 oz) 01/19/24 : 130.1 kg (286 lb 13.1 oz) Last BP 02/22/24 : 128/80 01/25/24 : 110/74 01/19/24 : 130/61 Physical Exam Constitutional: Appearance: Normal appearance. HENT: Head: Atraumatic. Cardiovascular: Rate and Rhythm: Normal rate and regular rhythm. Heart sounds: Normal heart sounds. No murmur heard. Pulmonary: Effort: Pulmonary effort is normal. Breath sounds: Normal breath sounds. Abdominal: Palpations: Abdomen is soft. There is no mass. Tenderness: There is no abdominal tenderness. There is no guarding or rebound. Neurological: Mental Status: She is alert. Cranial Nerves: Cranial nerves 2-12 are intact. Motor: Weakness present. Gait: Gait abnormal. Comments: Weakness in lower extremities. Antalgic gait. Psychiatric: Mood and Affect: Mood normal. Behavior: Behavior normal. No results found for: HBA1C , HBA0 HBA0=Estimated average glucose Lab Results Component Value Date CHOL 172 04/28/2006 CHOL 178.0 11/21/2004 HDL 46 04/28/2006 HDL 51 11/21/2004 LDL 104 04/28/2006 LDL 105 11/21/2004 TG 111 04/28/2006 TG 111 11/21/2004 Lab Results Component Value Date GLUC 95 06/17/2017 BUN 7 (L) 06/17/2017 CREAT 0.70 06/17/2017 NA 137 06/17/2017 K 4.0 06/17/2017 CHLOR 101 06/17/2017 CO2 25 06/17/2017 TPROT 6.1 06/10/2017 ALB 3.3 (L) 06/10/2017 CA 8.1 (L) 06/17/2017 ALKPHOS 59 06/10/2017 TBILI 0.2 06/10/2017 AST 12 06/10/2017 ALT 13 06/10/2017 No results found for: PCRAT , UALBCR PCRAT=Protein Creatinine Ratio; UABCR=Albumin Creat Ratio Lab Results Component Value Date TSH 2.590 06/11/2017 TSH 1.55 11/15/2007 TSH 2.15 04/28/2006 FREET4 1.16 11/21/2004 Impression/Recommenda tions Social History Social History Narrative Not on file Karlene Tom is a 43 year old female - Obesity Body mass index is 44.85 kg/m?. - H/o spina bifida and tethered cord with myelomeningocele repair at and reviion on 1994 and 2016, - Chronic pain in low back pain and leg pain chronic, treated with pregabalin and tramadol. Follow up Neurology, [place] (more content not included)... Normal [facility] T4 Free SerPl-mCncon 024 Free T4 [Mass/Vol] 1.2 ng/dL Normal 0.9-1.7 [facility] Comment on above: Order Comment: Ajay vega Type: BLOOD SPECIMENOrdering Facility: [facility] Address: [address] [place] [address] Performed By: #### 3 024-7, 3016-3 ####[facility] LABIA [id number] [place] [address] [place] THYROID PEROXIDASE ANTIBODYo n 02-22-2024 TPO Ab Qn [IU]/mL Normal <5.6 [facility] Comment on above: Order Comment: Ajay vega Type: BLOOD SPECIMENOrdering Facility: [facility] Address: [address] [place] [address] Result Comment: Thyr oid Peroxidase Antibody test is used as an aid in diagnosis of autoimmune thyroid disease. Clinical correlation is required. Performed By: #### M ICRO ####[facility] LABIA [id number] [place] [address] [place] TSH SerPl-aCncon 02-22-2024 TSH Qn 1.370 m[IU]/L Normal 0.270-4.200 [facility] Comment on above: Order Comment: Ajay vega Type: BLOOD SPECIMENOrdering Facility: [facility] Address: [address] [place] [address] Result Comment: If t he patient is , TSH reference range varies by gestational period: First Trimester (weeks 9-12): 0.180-2.990 mIU/L Second Trimester: 0.110-3.980 mIU/L Third Trimester: 0.480-4.710 mIU/L Kristopher Faust et al. A Practical Approach for the Verifications and Determination of Site- and Trimester-Specific Reference Intervals for Thyroid Function tests in . Thyroid, 2019:29:3:412-420. Eamon E, et al. 2017 Guidelines of the [place] [employer] for the Diagnosis and Management of Thyroid Disease during and the . Thyroid, 2017:27:3:315-389. Performed By: #### 3 024-7, 3016-3 ####[facility] LABCLIA [id number] [address] [facility] CNPNon 02-13-2024 CNPN Telephone (INTMLN) KARLENE TOM ([id number]) 1980 F Date Time Provider Department 02/13/24 AIDAN MONTENEGRO INTMLN During your visit today, we recorded the following information about you: Aidan Montenegro MD 02/13/2024 10:45 AM [facility] Medical Records reviewed. Medical records reviewed. Shon Angel [employer], prescribing tramadol for spina bifida pain until evaluation with pain management. 04/07/23 UDS negative. 12/22/23 UDS positive THC, rest negative. 04/28/23 EMG of LE: normal. No evidence of [employer] or radiculopathy. 05/2023 requested to have student loans deferred due to disability. 06/10/22 Colonoscopy biopsy: with small hyperplastic polyp, 07/31/21 Pap NIL, HPV neg. Problem list and medication list updated as appropriate. Allergies As of Date: 02/13/2024 Noted Allergy Reaction LATEX 11/15/2007 10 - Anaphylaxis CIPROFLOXACIN 05/18/2023 4 - Hives 9 - Itching MORPHINE 05/26/2017 8 - GI Upset NEOSPORIN (NEOMYCIN-BACITRACIN- PO*10/07/2011 2 - Rash ZINC OXIDE 10/07/2011 2 - Rash Date Reviewed: 02/04/2024 Reviewed by: Aidan Montenegro MD - Fully Assessed Reason for Visit: Request Outside Medical Records [[id number]] Prescriptions as of 02/13/2024 - traMADol (ULTRAM) 50 mg tablet Take 1 tablet by mouth three times a day for 28 days. - tiZANidine (ZANAFLEX) 4 mg tablet Take 4 mg by mouth at bedtime as needed (for msucle cramps.). - pregabalin (LYRICA) 75 mg capsule Take 1 capsule by mouth three times a day for 28 days. - IBUPROFEN (MOTRIN ORAL) Take by mouth. - acetaminophen (TYLENOL) 325 mg tablet Take 1 tablet by mouth every 6 hours as needed. - cyclobenzaprine (FLEXERIL) 10 mg tablet Take 1 tablet by mouth three times daily as needed for Muscle Spasm. - Walker (ULTRA-LIGHT ROLLATOR) misc 1 Units as needed. Rollator with seat Problem List As Of Date 02/13/2024 Noted Resolved Unspecified site of sprain and strain [T14.8XXA]10/25/2003 05/17/2012 Pain in joint, lower leg [M25.569] 09/18/2008 01/25/2024 Smoker [F17.200] 05/17/2012 Spina bifida [Q05.9] 05/17/2012 Latex allergy [Z91.040] 05/17/2012 care, subsequent [Z34.80] 06/07/2012 01/06/2024 Tethered cord (HCC) [Q06.8] 05/15/2017 Morbid obesity with BMI of 40.0-44.9, adult (HC*05/26/2017 History of urinary self-catheterization [Z78.9] 05/26/2017 Lumbar surgical wound fluid collection [T81.89X*06/17/2017 01/25/2024 Monocular exotropia with other noncomitancies, *01/14/2024 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] 01/14/2024 Vitamin D deficiency [E55.9] 06/23/2023 Urge incontinence [N39.41] 01/01/2024 Neurogenic bladder [N31.9] 01/25/2024 Chronic lower back pain [M54.50, G89.29] 10/03/2004 Encounter Status:Closed by AIDAN MONTENEGRO on 02/13/24 [facility] 02-12-2024 CNPN Telephone (INTMLN) KARLENE TOM ([id number]) 1980 F Date Time Provider Department 02/12/24 AIDAN MONTENEGRO INTMLN During your visit today, we recorded the following information about you: Aidan Montenegro MD 02/12/2024 1:10 PM Signed ----- Message from Alexis Felix PA-C sent at 02/11/2024 1:28 PM EDT ----- Regarding: FNA Dr. Forrester, My name is Alexis Felix PA-C and I'm an Advanced Practice Provider in the Actionable Findings clinic here at the [facility] [place]. In my quality review, I see that this patient had thyroid nodules. FNA was recommended. Is that something you could help arrange or would you like us in our Actionable Findings department reach out to her for possible outreach? Alexis Felix PA-C February 11, 2024 1:28 PM Aidan Montenegro MD 02/12/2024 1:13 PM Signed Received notice abtopu actionable finding in US thryoid, patient with thyroid nodules. Please inform patient that is recommended to have referral to manager telecom to complete an evaluation and decide management. Referral placed. Instruct patient how to schedule appointment. Thanks. Lata Jean MA 02/12/2024 1:26 PM Signed Called and reviewed patient results, please assist patient in scheduling an OV with Endo Thank you. Lata Jean MA 02/12/2024 1:26 PM Signed Called and reviewed message with patient ,she stated that she has been very nauseated and coughing due to her thyroid , she is asking if Dr oBo would call in something for the nausea. Aidan Montenegro MD 02/12/2024 1:39 PM Signed Please instruct patient to use an over the counter medication for stomach problems like Peptobismol or antacid like Tums or Mylanta or similar. If no improvement patient should make an office visit to complete an evaluation and decide managmeent. Maya Roblero MA 02/16/2024 3:14 PM Signed Called patient, verified . Gave message below. Patient stated that she is not having stomach issues. She has nausea, not sleeping, hard time swallowing and raspy voice from the thyroid nodules. Patient does have an appointment with you on 02/22/2024. Routed to PCP. Allergies As of Date: 02/12/2024 Noted Allergy Reaction LATEX 11/15/2007 10 - Anaphylaxis CIPROFLOXACIN 05/18/2023 4 - Hives 9 - Itching MORPHINE 05/26/2017 8 - GI Upset NEOSPORIN (NEOMYCIN-BACITRACIN- PO*10/07/2011 2 - Rash ZINC OXIDE 10/07/2011 2 - Rash Date Reviewed: 02/04/2024 Reviewed by: Aidan Montenegro MD - Fully Assessed Reason for Visit: Results [95] Primary Visit Diagnosis:Thyroid nodule [E04.1] Order(s):CONSULT TO ENDOCRINOLOGY [9007] Order #: [id number]: 1 FUTURE Prescriptions as of 02/17/2024 - traMADol (ULTRAM) 50 mg tablet Take 1 tablet by mouth three times a day for 28 days. - tiZANidine (ZANAFLEX) 4 mg tablet Take 4 mg by mouth at bedtime as needed (for msucle cramps.). - pregabalin (LYRICA) 75 mg capsule Take 1 capsule by mouth three times a day for 28 days. - IBUPROFEN (MOTRIN ORAL) Take by mouth. - acetaminophen (TYLENOL) 325 mg tablet Take 1 tablet by mouth every 6 hours as needed. - cyclobenzaprine (FLEXERIL) 10 mg tablet Take 1 tablet by mouth three times daily as needed for Muscle Spasm. - Walker (ULTRA-LIGHT ROLLATOR) misc 1 Units as needed. Rollator with seat Problem List As Of Date 02/12/2024 Noted Resolved Unspecified site of sprain and strain [T14.8XXA]10/25/2003 05/17/2012 Pain in joint, lower leg [M25.569] 09/18/2008 01/25/2024 Smoker [F17.200] 05/17/2012 Spina bifida [Q05.9] 05/17/2012 Latex allergy [Z91.040] 05/17/2012 care, subsequent [Z34.80] 06/07/2012 01/06/2024 Tethered cord (HCC) [Q06.8] 05/15/2017 Morbid obesity with BMI of 40.0-44.9, adult (HC*05/26/2017 History of urinary self-catheterization [Z78.9] 05/26/2017 Lumbar surgical wound fluid collection [T81.89X*06/17/2017 01/25/2024 Monocular exotropia with other noncomitancies, *01/14/2024 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] 01/14/2024 Vitamin D deficiency [E55.9] 06/23/2023 Urge incontinence [N39.41] 01/01/2024 Neurogenic bladder [N31.9] 01/25/2024 Chronic lower back pain [M54.50, G89.29] 10/03/2004 Encounter Status:Closed by AIDAN MONTENEGRO on 02/17/24 Normal [facility] CNCOon 02-11-2024 CNCO Letter Text Normal [facility] CNPNon 02-11-2024 CNPN Telephone (NSCAMN) KARLENE TOM ([id number]) 1980 F Date Time Provider Department 02/11/24 [facility] During your visit today, we recorded the following information about you: Naomi Long 02/11/2024 2:10 PM Signed General Call Caller : Pt Contact Reason for Call : Pt had her US THYROID/PARATHYROID test done today. She would like to discuss her next steps as she was told she needs to have her thyroid biopsied. Patient requesting return call ? Yes Christopher Alfonso RN 02/12/2024 8:13 AM Signed Called patient via phone. Per pt, her ultra sound results suggest a biopsy. She states that Vance KLINE ordered the US and so patient would like to know next steps. She states that she has been dizzy and feeling poorly for the past 2 months- she is concerned she has cancer. She also has been having trouble swallowing. This RN responded with HEART and reviewed with patient symptoms that would require her to be seen in the ED such as SOB/ trouble breathing. Message sent to Vance KLINE and Dr. Huber for review. Vance Daley PA-C 02/15/2024 6:26 PM Signed I sent her a my chart message as soon as this was reported. I asked her before the testing was done to contact her PCP regarding this testing being done and she would need to contact them for the further recs. I sent her a message to this effect after the testing resulted again and sent a letter to her pcp. Consult signed Christopher Alfonso RN 02/16/2024 1:28 PM Signed Called patient via phone. No answer. Left a message stating patient should check her MyChart for new consult order available for scheduling. Consult to Dr. Schroeder in ENT placed for thyroid biopsy. Allergies As of Date: 02/11/2024 Noted Allergy Reaction LATEX 11/15/2007 10 - Anaphylaxis CIPROFLOXACIN 05/18/2023 4 - Hives 9 - Itching MORPHINE 05/26/2017 8 - GI Upset NEOSPORIN (NEOMYCIN-BACITRACIN- PO*10/07/2011 2 - Rash ZINC OXIDE 10/07/2011 2 - Rash Date Reviewed: 02/04/2024 Reviewed by: Aidan Montenegro MD - Fully Assessed Primary Visit Diagnosis:Multiple thyroid nodules [E04.2] Order(s):CONSULT TO ENT [9008] Order #: [id number]: 1 FUTURE Prescriptions as of 02/16/2024 - traMADol (ULTRAM) 50 mg tablet Take 1 tablet by mouth three times a day for 28 days. - tiZANidine (ZANAFLEX) 4 mg tablet Take 4 mg by mouth at bedtime as needed (for msucle cramps.). - pregabalin (LYRICA) 75 mg capsule Take 1 capsule by mouth three times a day for 28 days. - IBUPROFEN (MOTRIN ORAL) Take by mouth. - acetaminophen (TYLENOL) 325 mg tablet Take 1 tablet by mouth every 6 hours as needed. - cyclobenzaprine (FLEXERIL) 10 mg tablet Take 1 tablet by mouth three times daily as needed for Muscle Spasm. - Walker (ULTRA-LIGHT ROLLATOR) misc 1 Units as needed. Rollator with seat Problem List As Of Date 02/11/2024 Noted Resolved Unspecified site of sprain and strain [T14.8XXA]10/25/2003 05/17/2012 Pain in joint, lower leg [M25.569] 09/18/2008 01/25/2024 Smoker [F17.200] 05/17/2012 Spina bifida [Q05.9] 05/17/2012 Latex allergy [Z91.040] 05/17/2012 care, subsequent [Z34.80] 06/07/2012 01/06/2024 Tethered cord (HCC) [Q06.8] 05/15/2017 Morbid obesity with BMI of 40.0-44.9, adult (HC*05/26/2017 History of urinary self-catheterization [Z78.9] 05/26/2017 Lumbar surgical wound fluid collection [T81.89X*06/17/2017 01/25/2024 Monocular exotropia with other noncomitancies, *01/14/2024 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] 01/14/2024 Vitamin D deficiency [E55.9] 06/23/2023 Urge incontinence [N39.41] 01/01/2024 Neurogenic bladder [N31.9] 01/25/2024 Chronic lower back pain [M54.50, G89.29] 10/03/2004 Encounter Status:Closed by VANCE DALEY on 02/15/24 Normal [facility] US THYROID/PARATHYROIDon US THYROID/PARATHYROID * * *Final Report* * * DATE OF EXAM: Feb 08 2024 12:37PM [facility] 1048 - US THYROID/PARATHYROID / PROCEDURE REASON: Nontoxic single thyroid nodule * * * * Physician Interpretation * * * * EXAMINATION: THYROID ULTRASOUND CLINICAL HISTORY: Nontoxic single thyroid nodule TECHNIQUE: Sonography and Doppler imaging of the thyroid was performed. Images were obtained and stored in a permanent archive. MQ: UST_1 COMPARISON: MRI 02/03/2024. RESULT: Right Lobe: 7.3 x 3.0 x 3.5 cm; homogeneous echogenicity, expected vascular flow. Left Lobe: 4.7 x 1.4 x 1.3 cm; homogeneous echogenicity, expected vascular flow. Isthmus: 0.6 cm The most suspicious thyroid nodule(s) (up to four) as below: NODULE 1: Location: Right mid-lower pole Size: 5.5 x 3.8 x 3.4 cm Characteristics: Composition: Solid or almost completely solid, 2 points Echogenicity: Hypoechoic, 2 points (heterogeneous) Shape: [id number], 0 points Margin: Smooth, 0 points Echogenic foci (add points for all that apply): None, 0 points Internal vascularity: present Interval growth: No prior available for comparison TI-RADS Category: TR4 ACR Recommendation: TI-RADS 4 nodule. FNA is recommended. NODULE 2: Location: Right isthmus Size: 1.8 x 1.5 x 1.2 cm Characteristics: Composition: Solid or almost completely solid, 2 points Echogenicity: Hypoechoic, 2 points (heterogeneous) Shape: [id number], 0 points Margin: Smooth, 0 points Echogenic foci (add points for all that apply): None, 0 points Internal vascularity: present Interval growth: No prior available for comparison TI-RADS Category: TR4 ACR Recommendation: TI-RADS 4 nodule. FNA is recommended. NODULE 3: Location: Right upper pole Size: 0.9 x 0.8 x 0.4 cm Characteristics: Composition: Solid or almost completely solid, 2 points Echogenicity: Hypoechoic, 2 points (heterogeneous) Shape: [id number]-[id number], 0 points Margin: Smooth, 0 points Echogenic foci (add points for all that apply): None, 0 points Internal vascularity: present Interval growth: No prior available for comparison TI-RADS Category: TR4 ACR Recommendation: TI-RADS 4 nodule. No FNA or follow-up imaging is advised. NODULE 4: Location: Left lower pole Size: 1.2 x 1.1 x 0.7 cm Characteristics: Composition: Solid or almost completely solid, 2 points Echogenicity: Hypoechoic, 2 points (heterogeneous) Shape: [id number], 0 points Margin: Smooth, 0 points Echogenic foci (add points for all that apply): None, 0 points Internal vascularity: present Interval growth: No prior available for comparison TI-RADS Category: TR4 ACR Recommendation: TI-RADS 4 nodule. Follow up imaging in 1, 2, 3 and 5 years is advised. IMPRESSION: Thyroid nodule(s) are present. Fine needle aspiration is recommended if not previously performed. ACR recommendations are strictly based on the size and imaging appearance at the time of the exam and do not consider stability or previous biopsy results. Ticket Speculator: ELVA Transcribe Date/Time: Feb 11 2024 7:36A Dictated by : SAM FUNK DO This examination was interpreted and the report reviewed and electronically signed by: SAM FUNK DO on Feb 11 2024 7:41AM EST [id number] N [facility] MR Cervical spine WO contras ton 02-04-2024 * * *Final Report* * * DATE OF EXAM: Feb 03 2024 5:09PM M2M 0297 - MRI CERVICAL SPINE WO IVCON / PROCEDURE REASON: Abnormal findings on diagnostic imaging of other parts of musculoskeletal system * * * * Physician Interpretation * * * * EXAMINATION: MRI LUMBAR SPINE WO IVCON, MRI THORACIC SPINE WO IVCON, MRI CERVICAL SPINE WO IVCON CLINICAL HISTORY: Encounter for observation for other suspected diseases and conditions ruled out; 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 MQ: [email or web address]_3 COMPARISON: Outside lumbar spine MRI, 03/12/2023, cervical and lumbar spine MRI, 12/22/2018, and thoracic and lumbar spine MRI, 04/29/2017 RESULT: Localizer images: Unremarkable. CERVICAL: Counting reference: Craniocervical junction. Anatomic Variants: None. Alignment: There is straightening of the normal cervical lordosis, the alignment is preserved. Craniocervical junction: Craniocervical junction is normal. Cord: The cervical spinal cord is within normal limits of signal intensity and morphology. Bone marrow signal/fracture: Mild degenerative endplate changes, no associated marrow edema. No focal marrow lesion. No evidence of prior fracture. Cervical soft tissues: The paraspinal soft tissues are within normal limits. Partially visualized heterogeneous right thyroid nodule measuring at least 3.8 cm in diameter Canal and foramina: No significant cervical canal or foraminal stenosis within the constraints of the study. THORACIC: Counting reference: Craniocervical and lumbosacral junctions. For the purposes of this report, L4-5 is considered the level of the iliac crest and assume there are 5 lumbar-type vertebrae. Anatomic variant: None. Alignment: Alignment is anatomic. Cord: The thoracic spinal cord is within normal limits of signal intensity and morphology. Bone marrow signal/fracture: Degenerative endplate changes without associated marrow edema. No focal marrow lesion. No evidence of prior fracture. Thoracic soft tissues: The paraspinal soft tissues are within normal limits. Canal and foramina: A few small disc bulges are noted, however there is no canal or foraminal narrowing at any level. LUMBAR: Counting reference: Craniocervical and lumbosacral junctions. For the purposes of this report, L4-5 is considered the level of the iliac crest and assume there are 5 lumbar-type vertebrae. Anatomic variant: None. Alignment: Alignment is anatomic. Bone marrow signal/fracture: Laminectomy changes are again noted at L4-5. Degenerative endplate changes without associated marrow edema. No evidence of prior fracture. Conus: The distal cord is displaced dorsally and the conus extends inferiorly to approximately the level of S1, similar to previous. 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 High-resolution T2-weighted images demonstrate a prominent vessel along the ventral surface of the cord which appears similar to previous given the differences in technique. Additional prominent vessels dorsally were better visualized on the prior contrast-enhanced study. Paraspinal soft tissues: Postoperative changes in the posterior soft tissues with associated crenation tissue susceptibility artifact, and paraspinal muscular atrophy. No associated fluid collection. Canal and foramina: A disc bulge and facet hypertrophic changes are again noted at L4-5 with associated mild left neural foramen narrowing, no other canal or foraminal narrowing is identified. Sacrum and iliac wings: The visualized sacrum and iliac wings are within normal limits. The presacral soft tissues are normal in appearance. DIVISION OF RADIOLOGY Provider, Mark Hale - 02/04/2024 * * *Final Report* * * DATE OF EXAM: Feb 03 2024 5:09PM M2M 0297 - MRI CERVICAL SPINE WO IVCON / PROCEDURE REASON: Abnormal findings on diagnostic imaging of other parts of musculoskeletal system * * * * Physician Interpretation * * * * EXAMINATION: MRI LUMBAR SPINE WO IVCON, MRI THORACIC SPINE WO IVCON, MRI CERVICAL SPINE WO IVCON CLINICAL HISTORY: Encounter for observation for other suspected diseases and conditions ruled out; 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 MQ: MRCTLWO_3 COMPARISON: Outside lumbar spine MRI, 03/12/2023, cervical and lumbar spine MRI, 12/22/2018, and thoracic and lumbar spine MRI, 04/29/2017 RESULT: Localizer images: Unremarkable. CERVICAL: Counting reference: Craniocervical junction. Anatomic Variants: None. Alignment: There is straightening of the normal cervical lordosis, the alignment is preserved. Craniocervical junction: Craniocervical junction is normal. Cord: The cervical spinal cord is within normal limits of signal intensity and morphology. Bone marrow signal/fracture: Mild degenerative endplate changes, no associated marrow edema. No focal marrow lesion. No evidence of prior fracture. Cervical soft tissues: The paraspinal soft tissues are within normal limits. Partially visualized heterogeneous right thyroid nodule measuring at least 3.8 cm in diameter Canal and foramina: No significant cervical canal or foraminal stenosis within the constraints of the study. THORACIC: Counting reference: Craniocervical and lumbosacral junctions. For the purposes of this report, L4-5 is considered the level of the iliac crest and assume there are 5 lumbar-type vertebrae. Anatomic variant: None. Alignment: Alignment is anatomic. Cord: The thoracic spinal cord is within normal limits of signal intensity and morphology. Bone marrow signal/fracture: Degenerative endplate changes without associated marrow edema. No focal marrow lesion. No evidence of prior fracture. Thoracic soft tissues: The paraspinal soft tissues are within normal limits. Canal and foramina: A few small disc bulges are noted, however there is no canal or foraminal narrowing at any level. LUMBAR: Counting reference: Craniocervical and lumbosacral junctions. For the purposes of this report, L4-5 is considered the level of the iliac crest and assume there are 5 lumbar-type vertebrae. Anatomic variant: None. Alignment: Alignment is anatomic. Bone marrow signal/fracture: Laminectomy changes are again noted at L4-5. Degenerative endplate changes without associated marrow edema. No evidence of prior fracture. Conus: The distal cord is displaced dorsally and the conus extends inferiorly to approximately the level of S1, similar to previous. 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 High-resolution T2-weighted images demonstrate a prominent vessel along the ventral surface of the cord which appears similar to previous given the differences in technique. Additional prominent vessels dorsally were better visualized on the prior contrast-enhanced study. Paraspinal soft tissues: Postoperative changes in the posterior soft tissues with associated crenation tissue susceptibility artifact, and paraspinal muscular atrophy. No associated fluid collection. Canal and foramina: A disc bulge and facet hypertrophic changes are again noted at L4-5 with associated mild left neural foramen narrowing, no other canal or foraminal narrowing is identified. Sacrum and iliac wings: The visualized sacrum and iliac wings are within normal limits. The presacral soft tissues are normal in appearance. IMPRESSION IMPRESSION: 1. Stable postoperative changes with unchanged position and morphology of the conus, no abnormal cord signal. 2. Stable mild degenerative changes. 3. Incidental right thyroid nodule, not well visualized previously and incompletely evaluated on the current exam. Cervical Anatomic Variant: None. Assume 7 cervical vertebrae with counting from the craniocervical junction. Anatomic Thoracic/Lumbar Variant: None. L4-5 is considered the level of the iliac crest and assume there are 5 lumbar-type vertebrae. ACTIONABLE RESULT: FOLLOW-UP Acuity: Actionable Findings: Endocrine (thyroid) Routing Code: EMI_1 Recommendation: US THYROID/PARATHYROID Time Frame: At the discretion of the clinical team. COMMUNICATION: Results will be communicated with the ordering provider via [employer] staff message or phone message by [employer] within 2 business days of report finalization. --END OF FINDING-- (more content not included)... [facility] [place] MR Lumbar spine WO contrasto n 02-04-2024 * * *Final Report* * * DATE OF EXAM: Feb 03 2024 5:09PM M2M 0303 - MRI LUMBAR SPINE WO IVCON / PROCEDURE REASON: Encounter for observation for other suspected diseases and conditions ruled out * * * * Physician Interpretation * * * * EXAMINATION: MRI LUMBAR SPINE WO IVCON, MRI THORACIC SPINE WO IVCON, MRI CERVICAL SPINE WO IVCON CLINICAL HISTORY: Encounter for observation for other suspected diseases and conditions ruled out; 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 MQ: MRCTLWO_3 COMPARISON: Outside lumbar spine MRI, 03/12/2023, cervical and lumbar spine MRI, 12/22/2018, and thoracic and lumbar spine MRI, 04/29/2017 RESULT: Localizer images: Unremarkable. CERVICAL: Counting reference: Craniocervical junction. Anatomic Variants: None. Alignment: There is straightening of the normal cervical lordosis, the alignment is preserved. Craniocervical junction: Craniocervical junction is normal. Cord: The cervical spinal cord is within normal limits of signal intensity and morphology. Bone marrow signal/fracture: Mild degenerative endplate changes, no associated marrow edema. No focal marrow lesion. No evidence of prior fracture. Cervical soft tissues: The paraspinal soft tissues are within normal limits. Partially visualized heterogeneous right thyroid nodule measuring at least 3.8 cm in diameter Canal and foramina: No significant cervical canal or foraminal stenosis within the constraints of the study. THORACIC: Counting reference: Craniocervical and lumbosacral junctions. For the purposes of this report, L4-5 is considered the level of the iliac crest and assume there are 5 lumbar-type vertebrae. Anatomic variant: None. Alignment: Alignment is anatomic. Cord: The thoracic spinal cord is within normal limits of signal intensity and morphology. Bone marrow signal/fracture: Degenerative endplate changes without associated marrow edema. No focal marrow lesion. No evidence of prior fracture. Thoracic soft tissues: The paraspinal soft tissues are within normal limits. Canal and foramina: A few small disc bulges are noted, however there is no canal or foraminal narrowing at any level. LUMBAR: Counting reference: Craniocervical and lumbosacral junctions. For the purposes of this report, L4-5 is considered the level of the iliac crest and assume there are 5 lumbar-type vertebrae. Anatomic variant: None. Alignment: Alignment is anatomic. Bone marrow signal/fracture: Laminectomy changes are again noted at L4-5. Degenerative endplate changes without associated marrow edema. No evidence of prior fracture. Conus: The distal cord is displaced dorsally and the conus extends inferiorly to approximately the level of S1, similar to previous. 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 High-resolution T2-weighted images demonstrate a prominent vessel along the ventral surface of the cord which appears similar to previous given the differences in technique. Additional prominent vessels dorsally were better visualized on the prior contrast-enhanced study. Paraspinal soft tissues: Postoperative changes in the posterior soft tissues with associated crenation tissue susceptibility artifact, and paraspinal muscular atrophy. No associated fluid collection. Canal and foramina: A disc bulge and facet hypertrophic changes are again noted at L4-5 with associated mild left neural foramen narrowing, no other canal or foraminal narrowing is identified. Sacrum and iliac wings: The visualized sacrum and iliac wings are within normal limits. The presacral soft tissues are normal in appearance. DIVISION OF RADIOLOGY Provider, [facility] - 02/04/2024 * * *Final Report* * * DATE OF EXAM: Feb 03 2024 5:09PM M2M 0303 - MRI LUMBAR SPINE WO IVCON / PROCEDURE REASON: Encounter for observation for other suspected diseases and conditions ruled out * * * * Physician Interpretation * * * * EXAMINATION: MRI LUMBAR SPINE WO IVCON, MRI THORACIC SPINE WO IVCON, MRI CERVICAL SPINE WO IVCON CLINICAL HISTORY: Encounter for observation for other suspected diseases and conditions ruled out; 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 MQ: MRCTLWO_3 COMPARISON: Outside lumbar spine MRI, 03/12/2023, cervical and lumbar spine MRI, 12/22/2018, and thoracic and lumbar spine MRI, 04/29/2017 RESULT: Localizer images: Unremarkable. CERVICAL: Counting reference: Craniocervical junction. Anatomic Variants: None. Alignment: There is straightening of the normal cervical lordosis, the alignment is preserved. Craniocervical junction: Craniocervical junction is normal. Cord: The cervical spinal cord is within normal limits of signal intensity and morphology. Bone marrow signal/fracture: Mild degenerative endplate changes, no associated marrow edema. No focal marrow lesion. No evidence of prior fracture. Cervical soft tissues: The paraspinal soft tissues are within normal limits. Partially visualized heterogeneous right thyroid nodule measuring at least 3.8 cm in diameter Canal and foramina: No significant cervical canal or foraminal stenosis within the constraints of the study. THORACIC: Counting reference: Craniocervical and lumbosacral junctions. For the purposes of this report, L4-5 is considered the level of the iliac crest and assume there are 5 lumbar-type vertebrae. Anatomic variant: None. Alignment: Alignment is anatomic. Cord: The thoracic spinal cord is within normal limits of signal intensity and morphology. Bone marrow signal/fracture: Degenerative endplate changes without associated marrow edema. No focal marrow lesion. No evidence of prior fracture. Thoracic soft tissues: The paraspinal soft tissues are within normal limits. Canal and foramina: A few small disc bulges are noted, however there is no canal or foraminal narrowing at any level. LUMBAR: Counting reference: Craniocervical and lumbosacral junctions. For the purposes of this report, L4-5 is considered the level of the iliac crest and assume there are 5 lumbar-type vertebrae. Anatomic variant: None. Alignment: Alignment is anatomic. Bone marrow signal/fracture: Laminectomy changes are again noted at L4-5. Degenerative endplate changes without associated marrow edema. No evidence of prior fracture. Conus: The distal cord is displaced dorsally and the conus extends inferiorly to approximately the level of S1, similar to previous. 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 High-resolution T2-weighted images demonstrate a prominent vessel along the ventral surface of the cord which appears similar to previous given the differences in technique. Additional prominent vessels dorsally were better visualized on the prior contrast-enhanced study. Paraspinal soft tissues: Postoperative changes in the posterior soft tissues with associated crenation tissue susceptibility artifact, and paraspinal muscular atrophy. No associated fluid collection. Canal and foramina: A disc bulge and facet hypertrophic changes are again noted at L4-5 with associated mild left neural foramen narrowing, no other canal or foraminal narrowing is identified. Sacrum and iliac wings: The visualized sacrum and iliac wings are within normal limits. The presacral soft tissues are normal in appearance. IMPRESSION IMPRESSION: 1. Stable postoperative changes with unchanged position and morphology of the conus, no abnormal cord signal. 2. Stable mild degenerative changes. 3. Incidental right thyroid nodule, not well visualized previously and incompletely evaluated on the current exam. Cervical Anatomic Variant: None. Assume 7 cervical vertebrae with counting from the craniocervical junction. Anatomic Thoracic/Lumbar Variant: None. L4-5 is considered the level of the iliac crest and assume there are 5 lumbar-type vertebrae. ACTIONABLE RESULT: FOLLOW-UP Acuity: Actionable Findings: Endocrine (thyroid) Routing Code: EMI_1 Recommendation: US THYROID/PARATHYROID Time Frame: At the discretion of the clinical team. COMMUNICATION: Results will be communicated with the ordering provider via [employer] staff message or phone message by [employer] within 2 business days of report finalization. --END OF FINDING-- (more content not included)... [facility] [place] MR Thoracic spine WO contras ton 02-04-2024 * * *Final Report* * * DATE OF EXAM: Feb 03 2024 5:09PM M2M 0325 - MRI THORACIC SPINE WO IVCON / PROCEDURE REASON: Pain in thoracic spine * * * * Physician Interpretation * * * * EXAMINATION: MRI LUMBAR SPINE WO IVCON, MRI THORACIC SPINE WO IVCON, MRI CERVICAL SPINE WO IVCON CLINICAL HISTORY: Encounter for observation for other suspected diseases and conditions ruled out; 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 MQ: MRCTLWO_3 COMPARISON: Outside lumbar spine MRI, 03/12/2023, cervical and lumbar spine MRI, 12/22/2018, and thoracic and lumbar spine MRI, 04/29/2017 RESULT: Localizer images: Unremarkable. CERVICAL: Counting reference: Craniocervical junction. Anatomic Variants: None. Alignment: There is straightening of the normal cervical lordosis, the alignment is preserved. Craniocervical junction: Craniocervical junction is normal. Cord: The cervical spinal cord is within normal limits of signal intensity and morphology. Bone marrow signal/fracture: Mild degenerative endplate changes, no associated marrow edema. No focal marrow lesion. No evidence of prior fracture. Cervical soft tissues: The paraspinal soft tissues are within normal limits. Partially visualized heterogeneous right thyroid nodule measuring at least 3.8 cm in diameter Canal and foramina: No significant cervical canal or foraminal stenosis within the constraints of the study. THORACIC: Counting reference: Craniocervical and lumbosacral junctions. For the purposes of this report, L4-5 is considered the level of the iliac crest and assume there are 5 lumbar-type vertebrae. Anatomic variant: None. Alignment: Alignment is anatomic. Cord: The thoracic spinal cord is within normal limits of signal intensity and morphology. Bone marrow signal/fracture: Degenerative endplate changes without associated marrow edema. No focal marrow lesion. No evidence of prior fracture. Thoracic soft tissues: The paraspinal soft tissues are within normal limits. Canal and foramina: A few small disc bulges are noted, however there is no canal or foraminal narrowing at any level. LUMBAR: Counting reference: Craniocervical and lumbosacral junctions. For the purposes of this report, L4-5 is considered the level of the iliac crest and assume there are 5 lumbar-type vertebrae. Anatomic variant: None. Alignment: Alignment is anatomic. Bone marrow signal/fracture: Laminectomy changes are again noted at L4-5. Degenerative endplate changes without associated marrow edema. No evidence of prior fracture. Conus: The distal cord is displaced dorsally and the conus extends inferiorly to approximately the level of S1, similar to previous. 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 High-resolution T2-weighted images demonstrate a prominent vessel along the ventral surface of the cord which appears similar to previous given the differences in technique. Additional prominent vessels dorsally were better visualized on the prior contrast-enhanced study. Paraspinal soft tissues: Postoperative changes in the posterior soft tissues with associated crenation tissue susceptibility artifact, and paraspinal muscular atrophy. No associated fluid collection. Canal and foramina: A disc bulge and facet hypertrophic changes are again noted at L4-5 with associated mild left neural foramen narrowing, no other canal or foraminal narrowing is identified. Sacrum and iliac wings: The visualized sacrum and iliac wings are within normal limits. The presacral soft tissues are normal in appearance. DIVISION OF RADIOLOGY Provider, Mark Hale - 02/04/2024 * * *Final Report* * * DATE OF EXAM: Feb 03 2024 5:09PM M2M 0325 - MRI THORACIC SPINE WO IVCON / PROCEDURE REASON: Pain in thoracic spine * * * * Physician Interpretation * * * * EXAMINATION: MRI LUMBAR SPINE WO IVCON, MRI THORACIC SPINE WO IVCON, MRI CERVICAL SPINE WO IVCON CLINICAL HISTORY: Encounter for observation for other suspected diseases and conditions ruled out; 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 MQ: MRCTLWO_3 COMPARISON: Outside lumbar spine MRI, 03/12/2023, cervical and lumbar spine MRI, 12/22/2018, and thoracic and lumbar spine MRI, 04/29/2017 RESULT: Localizer images: Unremarkable. CERVICAL: Counting reference: Craniocervical junction. Anatomic Variants: None. Alignment: There is straightening of the normal cervical lordosis, the alignment is preserved. Craniocervical junction: Craniocervical junction is normal. Cord: The cervical spinal cord is within normal limits of signal intensity and morphology. Bone marrow signal/fracture: Mild degenerative endplate changes, no associated marrow edema. No focal marrow lesion. No evidence of prior fracture. Cervical soft tissues: The paraspinal soft tissues are within normal limits. Partially visualized heterogeneous right thyroid nodule measuring at least 3.8 cm in diameter Canal and foramina: No significant cervical canal or foraminal stenosis within the constraints of the study. THORACIC: Counting reference: Craniocervical and lumbosacral junctions. For the purposes of this report, L4-5 is considered the level of the iliac crest and assume there are 5 lumbar-type vertebrae. Anatomic variant: None. Alignment: Alignment is anatomic. Cord: The thoracic spinal cord is within normal limits of signal intensity and morphology. Bone marrow signal/fracture: Degenerative endplate changes without associated marrow edema. No focal marrow lesion. No evidence of prior fracture. Thoracic soft tissues: The paraspinal soft tissues are within normal limits. Canal and foramina: A few small disc bulges are noted, however there is no canal or foraminal narrowing at any level. LUMBAR: Counting reference: Craniocervical and lumbosacral junctions. For the purposes of this report, L4-5 is considered the level of the iliac crest and assume there are 5 lumbar-type vertebrae. Anatomic variant: None. Alignment: Alignment is anatomic. Bone marrow signal/fracture: Laminectomy changes are again noted at L4-5. Degenerative endplate changes without associated marrow edema. No evidence of prior fracture. Conus: The distal cord is displaced dorsally and the conus extends inferiorly to approximately the level of S1, similar to previous. 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 High-resolution T2-weighted images demonstrate a prominent vessel along the ventral surface of the cord which appears similar to previous given the differences in technique. Additional prominent vessels dorsally were better visualized on the prior contrast-enhanced study. Paraspinal soft tissues: Postoperative changes in the posterior soft tissues with associated crenation tissue susceptibility artifact, and paraspinal muscular atrophy. No associated fluid collection. Canal and foramina: A disc bulge and facet hypertrophic changes are again noted at L4-5 with associated mild left neural foramen narrowing, no other canal or foraminal narrowing is identified. Sacrum and iliac wings: The visualized sacrum and iliac wings are within normal limits. The presacral soft tissues are normal in appearance. IMPRESSION IMPRESSION: 1. Stable postoperative changes with unchanged position and morphology of the conus, no abnormal cord signal. 2. Stable mild degenerative changes. 3. Incidental right thyroid nodule, not well visualized previously and incompletely evaluated on the current exam. Cervical Anatomic Variant: None. Assume 7 cervical vertebrae with counting from the craniocervical junction. Anatomic Thoracic/Lumbar Variant: None. L4-5 is considered the level of the iliac crest and assume there are 5 lumbar-type vertebrae. ACTIONABLE RESULT: FOLLOW-UP Acuity: Actionable Findings: Endocrine (thyroid) Routing Code: EMI_1 Recommendation: US THYROID/PARATHYROID Time Frame: At the discretion of the clinical team. COMMUNICATION: Results will be communicated with the ordering provider via [employer] staff message or phone message by [employer] within 2 business days of report finalization. --END OF FINDING-- Ticket Speculator: ELVA Transcribe Date/Time: May 16 2 (more content not included)... [facility] No Panel InformationOrdered By: Cc Provider on 02-04-2024 Interpretation and review of laboratory results Abnormal [facility] Radiology Result ACTIONABLE Abnormal [facility] Comment on above: This report contains an incidental or actionable finding. This finding may be a new finding separate from the reason your provider ordered the imaging test or it may be an already known finding that needs additional or continued follow-up. Because of this incidental or actionable finding, you may need another test (imaging or a different type of test). Please contact your provider for the next steps. [facility] No Panel Informationon 02-03 IMPRESSION: 1. Stable postoperative changes with unchanged position and morphology of the conus, no abnormal cord signal. 2. Stable mild degenerative changes. 3. Incidental right thyroid nodule, not well visualized previously and incompletely evaluated on the current exam. Cervical Anatomic Variant: None. Assume 7 cervical vertebrae with counting from the craniocervical junction. Anatomic Thoracic/Lumbar Variant: None. L4-5 is considered the level of the iliac crest and assume there are 5 lumbar-type vertebrae. ACTIONABLE RESULT: FOLLOW-UP Acuity: Actionable Findings: Endocrine (thyroid) Routing Code: EMI_1 Recommendation: US THYROID/PARATHYROID Time Frame: At the discretion of the clinical team. COMMUNICATION: Results will be communicated with the ordering provider via [employer] staff message or phone message by [employer] within 2 business days of report finalization. --END OF FINDING-- Ticket Speculator: ELVA Transcribe Date/Time: Feb 04 2024 8:16A Dictated by : RODOLFO DEAL MD This examination was interpreted and the report reviewed and electronically signed by: RODOLFO DEAL MD on Feb 04 2024 8:38AM [facility] DIVISION OF RADIOLOGY MRI CERVICAL SPINE WO IVCONo n 02-03-2024 MRI CERVICAL SPINE WO IVCON * * *Final Report* * * DATE OF EXAM: Feb 03 2024 5:09PM M2M 0297 - MRI CERVICAL SPINE WO IVCON / PROCEDURE REASON: Abnormal findings on diagnostic imaging of other parts of musculoskeletal system * * * * Physician Interpretation * * * * EXAMINATION: MRI LUMBAR SPINE WO IVCON, MRI THORACIC SPINE WO IVCON, MRI CERVICAL SPINE WO IVCON CLINICAL HISTORY: Encounter for observation for other suspected diseases and conditions ruled out; 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 MQ: MRCTLWO_3 COMPARISON: Outside lumbar spine MRI, 03/12/2023, cervical and lumbar spine MRI, 12/22/2018, and thoracic and lumbar spine MRI, 04/29/2017 RESULT: Localizer images: Unremarkable. CERVICAL: Counting reference: Craniocervical junction. Anatomic Variants: None. Alignment: There is straightening of the normal cervical lordosis, the alignment is preserved. Craniocervical junction: Craniocervical junction is normal. Cord: The cervical spinal cord is within normal limits of signal intensity and morphology. Bone marrow signal/fracture: Mild degenerative endplate changes, no associated marrow edema. No focal marrow lesion. No evidence of prior fracture. Cervical soft tissues: The paraspinal soft tissues are within normal limits. Partially visualized heterogeneous right thyroid nodule measuring at least 3.8 cm in diameter Canal and foramina: No significant cervical canal or foraminal stenosis within the constraints of the study. THORACIC: Counting reference: Craniocervical and lumbosacral junctions. For the purposes of this report, L4-5 is considered the level of the iliac crest and assume there are 5 lumbar-type vertebrae. Anatomic variant: None. Alignment: Alignment is anatomic. Cord: The thoracic spinal cord is within normal limits of signal intensity and morphology. Bone marrow signal/fracture: Degenerative endplate changes without associated marrow edema. No focal marrow lesion. No evidence of prior fracture. Thoracic soft tissues: The paraspinal soft tissues are within normal limits. Canal and foramina: A few small disc bulges are noted, however there is no canal or foraminal narrowing at any level. LUMBAR: Counting reference: Craniocervical and lumbosacral junctions. For the purposes of this report, L4-5 is considered the level of the iliac crest and assume there are 5 lumbar-type vertebrae. Anatomic variant: None. Alignment: Alignment is anatomic. Bone marrow signal/fracture: Laminectomy changes are again noted at L4-5. Degenerative endplate changes without associated marrow edema. No evidence of prior fracture. Conus: The distal cord is displaced dorsally and the conus extends inferiorly to approximately the level of S1, similar to previous. 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 High-resolution T2-weighted images demonstrate a prominent vessel along the ventral surface of the cord which appears similar to previous given the differences in technique. Additional prominent vessels dorsally were better visualized on the prior contrast-enhanced study. Paraspinal soft tissues: Postoperative changes in the posterior soft tissues with associated crenation tissue susceptibility artifact, and paraspinal muscular atrophy. No associated fluid collection. Canal and foramina: A disc bulge and facet hypertrophic changes are again noted at L4-5 with associated mild left neural foramen narrowing, no other canal or foraminal narrowing is identified. Sacrum and iliac wings: The visualized sacrum and iliac wings are within normal limits. The presacral soft tissues are normal in appearance. IMPRESSION: 1. Stable postoperative changes with unchanged position and morphology of the conus, no abnormal cord signal. 2. Stable mild degenerative changes. 3. Incidental right thyroid nodule, not well visualized previously and incompletely evaluated on the current exam. Cervical Anatomic Variant: None. Assume 7 cervical vertebrae with counting from the craniocervical junction. Anatomic Thoracic/Lumbar Variant: None. L4-5 is considered the level of the iliac crest and assume there are 5 lumbar-type vertebrae. ACTIONABLE RESULT: FOLLOW-UP Acuity: Actionable Findings: Endocrine (thyroid) Routing Code: EMI_1 Recommendation: US THYROID/PARATHYROID Time Frame: At the discretion of the clinical team. COMMUNICATION: Results will be communicated with the ordering provider via [employer] staff message or phone message by [employer] within 2 business days of report finalization. --END OF FINDING-- Ticket Speculator: ELVA Transcribe Date/Time: Feb 04 2024 8:16A Dictated by : RODOLFO DEAL MD This examination was interpreted and the report reviewed and carloz (more content not included)... Invalid Interpretation Code [facility] MRI LUMBAR SPINE WO IVCONon 02-03-2024 MRI LUMBAR SPINE WO IVCON * * *Final Report* * * DATE OF EXAM: Feb 03 2024 5:09PM M2M 0303 - MRI LUMBAR SPINE WO IVCON / PROCEDURE REASON: Encounter for observation for other suspected diseases and conditions ruled out * * * * Physician Interpretation * * * * EXAMINATION: MRI LUMBAR SPINE WO IVCON, MRI THORACIC SPINE WO IVCON, MRI CERVICAL SPINE WO IVCON CLINICAL HISTORY: Encounter for observation for other suspected diseases and conditions ruled out; 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 MQ: MRCTLWO_3 COMPARISON: Outside lumbar spine MRI, 03/12/2023, cervical and lumbar spine MRI, 12/22/2018, and thoracic and lumbar spine MRI, 04/29/2017 RESULT: Localizer images: Unremarkable. CERVICAL: Counting reference: Craniocervical junction. Anatomic Variants: None. Alignment: There is straightening of the normal cervical lordosis, the alignment is preserved. Craniocervical junction: Craniocervical junction is normal. Cord: The cervical spinal cord is within normal limits of signal intensity and morphology. Bone marrow signal/fracture: Mild degenerative endplate changes, no associated marrow edema. No focal marrow lesion. No evidence of prior fracture. Cervical soft tissues: The paraspinal soft tissues are within normal limits. Partially visualized heterogeneous right thyroid nodule measuring at least 3.8 cm in diameter Canal and foramina: No significant cervical canal or foraminal stenosis within the constraints of the study. THORACIC: Counting reference: Craniocervical and lumbosacral junctions. For the purposes of this report, L4-5 is considered the level of the iliac crest and assume there are 5 lumbar-type vertebrae. Anatomic variant: None. Alignment: Alignment is anatomic. Cord: The thoracic spinal cord is within normal limits of signal intensity and morphology. Bone marrow signal/fracture: Degenerative endplate changes without associated marrow edema. No focal marrow lesion. No evidence of prior fracture. Thoracic soft tissues: The paraspinal soft tissues are within normal limits. Canal and foramina: A few small disc bulges are noted, however there is no canal or foraminal narrowing at any level. LUMBAR: Counting reference: Craniocervical and lumbosacral junctions. For the purposes of this report, L4-5 is considered the level of the iliac crest and assume there are 5 lumbar-type vertebrae. Anatomic variant: None. Alignment: Alignment is anatomic. Bone marrow signal/fracture: Laminectomy changes are again noted at L4-5. Degenerative endplate changes without associated marrow edema. No evidence of prior fracture. Conus: The distal cord is displaced dorsally and the conus extends inferiorly to approximately the level of S1, similar to previous. 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 High-resolution T2-weighted images demonstrate a prominent vessel along the ventral surface of the cord which appears similar to previous given the differences in technique. Additional prominent vessels dorsally were better visualized on the prior contrast-enhanced study. Paraspinal soft tissues: Postoperative changes in the posterior soft tissues with associated crenation tissue susceptibility artifact, and paraspinal muscular atrophy. No associated fluid collection. Canal and foramina: A disc bulge and facet hypertrophic changes are again noted at L4-5 with associated mild left neural foramen narrowing, no other canal or foraminal narrowing is identified. Sacrum and iliac wings: The visualized sacrum and iliac wings are within normal limits. The presacral soft tissues are normal in appearance. IMPRESSION: 1. Stable postoperative changes with unchanged position and morphology of the conus, no abnormal cord signal. 2. Stable mild degenerative changes. 3. Incidental right thyroid nodule, not well visualized previously and incompletely evaluated on the current exam. Cervical Anatomic Variant: None. Assume 7 cervical vertebrae with counting from the craniocervical junction. Anatomic Thoracic/Lumbar Variant: None. L4-5 is considered the level of the iliac crest and assume there are 5 lumbar-type vertebrae. ACTIONABLE RESULT: FOLLOW-UP Acuity: Actionable Findings: Endocrine (thyroid) Routing Code: EMI_1 Recommendation: US THYROID/PARATHYROID Time Frame: At the discretion of the clinical team. COMMUNICATION: Results will be communicated with the ordering provider via [employer] staff message or phone message by [employer] within 2 business days of report finalization. --END OF FINDING-- Ticket Speculator: ELVA Transcribe Date/Time: Feb 04 2024 8:16A Dictated by : RODOLFO DEAL MD This examination was interpreted and the report reviewed and electr (more content not included)... Invalid Interpretation Code [facility] MRI THORACIC SPINE WO IVCONo n 02-03-2024 MRI THORACIC SPINE WO IVCON * * *Final Report* * * DATE OF EXAM: Feb 03 2024 5:09PM M2M 0325 - MRI THORACIC SPINE WO IVCON / PROCEDURE REASON: Pain in thoracic spine * * * * Physician Interpretation * * * * EXAMINATION: MRI LUMBAR SPINE WO IVCON, MRI THORACIC SPINE WO IVCON, MRI CERVICAL SPINE WO IVCON CLINICAL HISTORY: Encounter for observation for other suspected diseases and conditions ruled out; 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 MQ: MRCTLWO_3 COMPARISON: Outside lumbar spine MRI, 03/12/2023, cervical and lumbar spine MRI, 12/22/2018, and thoracic and lumbar spine MRI, 04/29/2017 RESULT: Localizer images: Unremarkable. CERVICAL: Counting reference: Craniocervical junction. Anatomic Variants: None. Alignment: There is straightening of the normal cervical lordosis, the alignment is preserved. Craniocervical junction: Craniocervical junction is normal. Cord: The cervical spinal cord is within normal limits of signal intensity and morphology. Bone marrow signal/fracture: Mild degenerative endplate changes, no associated marrow edema. No focal marrow lesion. No evidence of prior fracture. Cervical soft tissues: The paraspinal soft tissues are within normal limits. Partially visualized heterogeneous right thyroid nodule measuring at least 3.8 cm in diameter Canal and foramina: No significant cervical canal or foraminal stenosis within the constraints of the study. THORACIC: Counting reference: Craniocervical and lumbosacral junctions. For the purposes of this report, L4-5 is considered the level of the iliac crest and assume there are 5 lumbar-type vertebrae. Anatomic variant: None. Alignment: Alignment is anatomic. Cord: The thoracic spinal cord is within normal limits of signal intensity and morphology. Bone marrow signal/fracture: Degenerative endplate changes without associated marrow edema. No focal marrow lesion. No evidence of prior fracture. Thoracic soft tissues: The paraspinal soft tissues are within normal limits. Canal and foramina: A few small disc bulges are noted, however there is no canal or foraminal narrowing at any level. LUMBAR: Counting reference: Craniocervical and lumbosacral junctions. For the purposes of this report, L4-5 is considered the level of the iliac crest and assume there are 5 lumbar-type vertebrae. Anatomic variant: None. Alignment: Alignment is anatomic. Bone marrow signal/fracture: Laminectomy changes are again noted at L4-5. Degenerative endplate changes without associated marrow edema. No evidence of prior fracture. Conus: The distal cord is displaced dorsally and the conus extends inferiorly to approximately the level of S1, similar to previous. 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 High-resolution T2-weighted images demonstrate a prominent vessel along the ventral surface of the cord which appears similar to previous given the differences in technique. Additional prominent vessels dorsally were better visualized on the prior contrast-enhanced study. Paraspinal soft tissues: Postoperative changes in the posterior soft tissues with associated crenation tissue susceptibility artifact, and paraspinal muscular atrophy. No associated fluid collection. Canal and foramina: A disc bulge and facet hypertrophic changes are again noted at L4-5 with associated mild left neural foramen narrowing, no other canal or foraminal narrowing is identified. Sacrum and iliac wings: The visualized sacrum and iliac wings are within normal limits. The presacral soft tissues are normal in appearance. IMPRESSION: 1. Stable postoperative changes with unchanged position and morphology of the conus, no abnormal cord signal. 2. Stable mild degenerative changes. 3. Incidental right thyroid nodule, not well visualized previously and incompletely evaluated on the current exam. Cervical Anatomic Variant: None. Assume 7 cervical vertebrae with counting from the craniocervical junction. Anatomic Thoracic/Lumbar Variant: None. L4-5 is considered the level of the iliac crest and assume there are 5 lumbar-type vertebrae. ACTIONABLE RESULT: FOLLOW-UP Acuity: Actionable Findings: Endocrine (thyroid) Routing Code: EMI_1 Recommendation: US THYROID/PARATHYROID Time Frame: At the discretion of the clinical team. COMMUNICATION: Results will be communicated with the ordering provider via [employer] staff message or phone message by [employer] within 2 business days of report finalization. --END OF FINDING-- Ticket Speculator: ELVA Transcribe Date/Time: Feb 04 2024 8:16A Dictated by : RODOLFO DEAL MD This examination was interpreted and the report reviewed and electronically signed by: RODOLFO DEAL MD on Feb 04 2024 8 (more content not included)... Invalid Interpretation Code [facility] Avelina Panel Informationon 02-02 Radiology Study observation (narrative) [facility] Kinsey 01-28-2024 [facility] Telephone (INTMLN) KARLENE TOM ([id number]) 1980 F Date Time Provider Department 01/28/24 AIDAN MONTENEGRO During your visit today, we recorded the following information about you: Allergies As of Date: 01/28/2024 Noted Allergy Reaction LATEX 11/15/2007 10 - Anaphylaxis CIPROFLOXACIN 05/18/2023 4 - Hives 9 - Itching MORPHINE 05/26/2017 8 - GI Upset NEOSPORIN (NEOMYCIN-BACITRACIN- PO*10/07/2011 2 - Rash ZINC OXIDE 10/07/2011 2 - Rash Date Reviewed: 01/25/2024 Reviewed by: Aidan Montenegro MD - Fully Assessed Reason for Visit: Received Outside Medical Records [[id number]] Cmt: Received outside medical records on providers desk for review. Prescriptions as of 01/28/2024 - tiZANidine (ZANAFLEX) 4 mg tablet Take 4 mg by mouth at bedtime as needed (for msucle cramps.). - pregabalin (LYRICA) 75 mg capsule Take 1 capsule by mouth three times a day for 28 days. - traMADol (ULTRAM) 50 mg tablet Take 1 tablet by mouth three times a day for 7 days. - nitrofurantoin monohydrate and macrocrystal (MACROBID) 100 mg capsule Take 1 capsule by mouth two times a day for 5 days. - IBUPROFEN (MOTRIN ORAL) Take by mouth. - acetaminophen (TYLENOL) 325 mg tablet Take 1 tablet by mouth every 6 hours as needed. - cyclobenzaprine (FLEXERIL) 10 mg tablet Take 1 tablet by mouth three times daily as needed for Muscle Spasm. - Walker (ULTRA-LIGHT ROLLATOR) misc 1 Units as needed. Rollator with seat Problem List As Of Date 01/28/2024 Noted Resolved Unspecified site of sprain and strain [T14.8XXA]10/25/2003 05/17/2012 Pain in joint, lower leg [M25.569] 09/18/2008 01/25/2024 Smoker [F17.200] 05/17/2012 Spina bifida [Q05.9] 05/17/2012 Latex allergy [Z91.040] 05/17/2012 care, subsequent [Z34.80] 06/07/2012 01/06/2024 Tethered cord (HCC) [Q06.8] 05/15/2017 Morbid obesity with BMI of 40.0-44.9, adult (HC*05/26/2017 History of urinary self-catheterization [Z78.9] 05/26/2017 Lumbar surgical wound fluid collection [T81.89X*06/17/2017 01/25/2024 Monocular exotropia with other noncomitancies, *01/14/2024 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] 01/14/2024 Vitamin D deficiency [E55.9] 06/23/2023 Urge incontinence [N39.41] 01/01/2024 Neurogenic bladder [N31.9] 01/25/2024 Chronic lower back pain [M54.50, G89.29] 10/03/2004 Encounter Status:Closed by LATA JEAN on 01/28/24 Normal [facility] URINALYSIS, REFLEX MICROSCOP ICon 01-26-2024 Bacteria LM.HPF (Urine sed) [#/Area] Negative Negative /HPF [facility] Bilirubin Ql (U) Negative Negative [facility] Clarity (Unsp spec) Clear Clear [facility] Color (U) Yellow Yellow [facility] Epithelial cells LM.HPF (Urine sed) [#/Area] Moderate /HPF [facility] Glucose Test strip (U) [Mass/Vol] Negative Negative [facility] Hemoglobin Ql (U) 1+ Abnormal Negative [facility] Hyaline casts (Urine sed) [#/Area] 0 /[LPF] 0 /LPF [facility] Interpretation and review of laboratory results Abnormal [facility] Ketones Ql (U) Negative Negative [facility] Leukocyte esterase Test strip Ql (U) 1+ Abnormal Negative [facility] [place] Nitrite Ql (U) Negative Negative [facility] pH (U) 6.0 [pH] NINF - 8.5 [facility] [place] Protein (U) [Mass/Vol] Negative Negative [facility] [place] RBC LM.HPF (Urine sed) [#/Area] 6-10 /HPF Abnormal 0-2 /HPF [facility] [place] Specific gravity (U) [Rel density] 1.020 1.005 - 1.030 [facility] [place] Urobilinogen Ql (U) 0.2 EU/dL 0.2-1.0 EU/dL [facility] [place] WBC LM.HPF (Urine sed) [#/Area] 11-20 /HPF Abnormal 0-5 /HPF [facility] [place] This test was developed and its performance characteristics determined by [facility] [place] Pathology and Laboratory Medicine [place] ([facility]). It has not been cleared or approved by the FDA. [facility] is regulated under CLIA as qualified to perform high-complexity testing. This test is used for clinical purposes. It should not be regarded as investigational or for research. [facility] Bacteria Ur Culton 4 Bacteria identified Cx Nom (U) ORGANISM ID: 1 <10,000 CFU/ml Normal urogenital santiago Normal [facility] Comment on above: Performed By: #### 6 30-4 ####[facility] LABCLIA [id number] [address] OF [facility] CNOVon 01-25-2024 CNOV Office Visit (INTMLN ) KARLENE TOM ([id number]) 1980 F Date Time Provider Department 01/25/24 2:20 PM AIDAN MONTENEGRO INTMLMiguel Ángel During your visit today, we recorded the following information about you: Temperature Pulse Blood pressure Weight 98.2 degrees 85/minute 110/74 128.8 kg Aidan Montenegro MD 01/25/2024 5:41 PM Addendum Karlene Maldonado Negro is a 43 year old female Chief complaint: Follow Up (Lab results/T3, states she put a lot of weight on quickly temp goes down instead of up when sick. ) and UTI (Bladder pain, strong odor.) Subjective HPI: H/o spina bifida and tethered cord with myelomeningocele repair at and reviion on 1994 and 2016, complicated with neurogenic bowel and bladder. Follow up Neurology, last appointment 01/19/24 H/o neurogenic bladder had botox injection last week. Prescribed ciprofloxacin and reports had mouth and body itching Follow up Urology H/o chronic pain in low back pain and leg pain chronic, treated with pregabalin and tramadol. Follow up neurology and neurosurgery. Filled Written ID Drug QTY Days Prescriber RX # Dispenser Refill Daily Dose* Pymt Type ROUGE PRESSER 12/22/2023 12/22/2023 1 Tramadol Hcl 50 Mg Tablet 90.00 30 Fa Mcn [id number] Rit (7038) 0 30.00 MME Medicaid [place] 12/22/2023 12/22/2023 1 Pregabalin 75 Mg Capsule 90.00 30 Fa Mcn [id number] Rit (7038) 0 1.51 LME Medicaid [place] 11/12/2023 11/12/2023 1 Pregabalin 75 Mg Capsule 90.00 30 Brionna Sha [id number] Rit (7038) 0 1.51 LME [place] [facility] [address] [place] [address] - Shon Shammo [address] [place] [address] Review of Systems Constitutional: Negative for fever and unexpected weight change. Respiratory: Negative for cough and shortness of breath. Cardiovascular: Negative for chest pain. Gastrointestinal: Negative for abdominal pain, nausea and vomiting. Genitourinary: Negative for pelvic pain. Musculoskeletal: Positive for arthralgias, back pain and myalgias. Neurological: Negative for headaches. Objective BP 110/74 Pulse 85 Temp 36.8 ?C (98.2 ?F) Wt 128.8 kg (283 lb 15.2 oz) LMP 01/04/2024 SpO2 97% BMI 44.88 kg/m? BMI Readings from Last 3 Encounters: 01/25/24 : 44.88 kg/m? 01/19/24 : 45.34 kg/m? 01/06/24 : 43.19 kg/m? Last Wt 01/25/24 : 128.8 kg (283 lb 15.2 oz) 01/19/24 : 130.1 kg (286 lb 13.1 oz) 01/06/24 : 125.1 kg (275 lb 12.7 oz) Last BP 01/25/24 : 110/74 01/19/24 : 130/61 01/06/24 : 114/78 Physical Exam Constitutional: Appearance: Normal appearance. HENT: Head: Atraumatic. Cardiovascular: Rate and Rhythm: Normal rate and regular rhythm. Heart sounds: Normal heart sounds. No murmur heard. Pulmonary: Effort: Pulmonary effort is normal. Breath sounds: Normal breath sounds. Abdominal: Palpations: Abdomen is soft. There is no mass. Tenderness: There is no abdominal tenderness. There is no guarding or rebound. Neurological: Mental Status: She is alert. Cranial Nerves: Cranial nerves 2-12 are intact. Motor: Weakness present. Gait: Gait abnormal. Comments: Weakness in lower extremities. Antalgic gait. Psychiatric: Mood and Affect: Mood normal. Behavior: Behavior normal. No results found for: HBA1C , HBA0 HBA0=Estimated average glucose Lab Results Component Value Date CHOL 172 04/28/2006 CHOL 178.0 11/21/2004 HDL 46 04/28/2006 HDL 51 11/21/2004 LDL 104 04/28/2006 LDL 105 11/21/2004 TG 111 04/28/2006 TG 111 11/21/2004 Lab Results Component Value Date GLUC 95 06/17/2017 BUN 7 (L) 06/17/2017 CREAT 0.70 06/17/2017 NA 137 06/17/2017 K 4.0 06/17/2017 CHLOR 101 06/17/2017 CO2 25 06/17/2017 TPROT 6.1 06/10/2017 ALB 3.3 (L) 06/10/2017 CA 8.1 (L) 06/17/2017 ALKPHOS 59 06/10/2017 TBILI 0.2 06/10/2017 AST 12 06/10/2017 ALT 13 06/10/2017 No results found for: PCRAT , UALBCR PCRAT=Protein Creatinine Ratio; UABCR=Albumin Creat Ratio Results for orders placed or performed in visit on 01/25/24 UA DIP, URINE (POC) Result Value Ref Range GLUCOSE UA (POCT) Negative Negative mg/dL BILIRUBIN UA (POCT) Negative Negative KETONE UA (POCT) Negative Negative mg/dL SPECIFIC GRAVITY UA (POCT) 1.020 1.005 - 1.030 HEMOGLOBIN/BLOOD UA (POCT) Moderate (A) Negative PH UA (POCT) 6.0 4.5 - 8.0 PROTEIN UA (POCT) Negative Negative mg/dL UROBILINOGEN UA (POCT) 0.2 Normal E.U./dL NITRITE UA (POCT) Negative Negative LEUKOCYTES UA (POCT) Small (A) Negative COLOR UA (POCT) Yellow CLARITY UA (POCT) Clear Impression/Recommenda tions Social History Social History Narrative Not on file Karlene Tom is a 43 year old female - Obesity Body mass index is 44.88 kg/m?. - H/o spina bifida and tethered cord with myelomeningocele repair at and reviion on 1994 and 2016, - Chronic pain in low back pain and leg pain chronic, treated with pregabalin and tramadol. Follow (more content not included)... Normal [facility] UA DIP, URINE (POC)on 2023 BILIRUBIN UA (POCT) Negative Negative [facility] CLARITY UA (POCT) Clear [facility] COLOR UA (POCT) Yellow [facility] GLUCOSE UA (POCT) Negative Negative mg/dL [facility] Hemoglobin Ql (U) Moderate Abnormal Negative [facility] Interpretation and review of laboratory results Abnormal [facility] [place] KETONE UA (POCT) Negative Negative mg/dL [facility] [place] LEUKOCYTES UA (POCT) Small Abnormal Negative [facility] NITRITE UA (POCT) Negative Negative [facility] PH UA (POCT) 6.0 4.5 - 8.0 [facility] [place] Protein Ql (U) Negative Negative mg/dL [facility] [place] SPECIFIC GRAVITY UA (POCT) 1.020 1.005 - 1.030 [facility] [place] UROBILINOGEN UA (POCT) 0.2 Normal E.U./dL [facility] [place] Location:[facility], [address], [place], [place], [address] [facility] POINT OF CARE [facility] URINALYSIS, REFLEX MICROSCOP ICon 01-25-2024 Bacteria LM.HPF (Urine sed) [#/Area] Negative Normal Negative [facility] Comment on above: Order Comment: Speci men Type: URINE SPECIMENOrdering Facility: [facility] Address: [address] [place] [address] Performed By: #### L [id number] ####[facility] LABCLIA [id number] [place] [address] [place] Bilirubin Ql (U) Negative Normal Negative [facility] Comment on above: Order Comment: Speci men Type: URINE SPECIMENOrdering Facility: [facility] Address: [address] [place] [address] Performed By: #### L [id number] ####[facility] LABCLIA [id number] [place] [address] [place] Clarity (Unsp spec) Clear Normal Clear [facility] Comment on above: Order Comment: Speci men Type: URINE SPECIMENOrdering Facility: [facility] Address: [address] [place] [address] Performed By: #### L [id number] ####[facility] LABIA [id number] [place] [address] [place] [facility] Color (U) Yellow Normal Yellow [facility] Comment on above: Order Comment: Speci men Type: URINE SPECIMENOrdering Facility: [facility] Address: [address] [place] [address] Performed By: #### L [id number] ####[facility] LABCLIA [id number] [place] [address] [place] Epithelial cells LM.HPF (Urine sed) [#/Area] Moderate Normal [facility] Comment on above: Order Comment: Speci men Type: URINE SPECIMENOrdering Facility: [facility] Address: [address] [place] [address] Performed By: #### L [id number] ####[facility] LABIA [id number] [place] [address] [place] Glucose Test strip (U) [Mass/Vol] Negative Normal Negative [facility] Comment on above: Order Comment: Speci men Type: URINE SPECIMENOrdering Facility: [facility] Address: [address] [place] [address] Performed By: #### L [id number] ####[facility] LABCLIA [id number] [place] [address] [place] Hemoglobin Ql (U) 1+ Abnormal Negative [facility] Comment on above: Order Comment: Speci men Type: URINE SPECIMENOrdering Facility: [facility] Address: [address] [place] [address] Performed By: #### L [id number] ####[facility] LABCLIA [id number] [place] [address] [place] Hyaline casts (Urine sed) [#/Area] 0 /[LPF] Normal 0 /LPF [facility] Comment on above: Order Comment: Speci men Type: URINE SPECIMENOrdering Facility: [facility] Address: [address] [place] [address] Performed By: #### L [id number] ####[facility] LABCLIA [id number] [place] [address] [place] Ketones Ql (U) Negative Normal Negative [facility] Comment on above: Order Comment: Speci men Type: URINE SPECIMENOrdering Facility: [facility] Address: [address] [place] [address] Performed By: #### L [id number] ####[facility] LABCLIA [id number] [place] [address] [place] Leukocyte esterase Test strip Ql (U) 1+ Abnormal Negative [facility] Comment on above: Order Comment: Speci men Type: URINE SPECIMENOrdering Facility: [facility] Address: [address] [place] [address] Performed By: #### L [id number] ####[facility] LABCLIA [id number] [place] [address] [place] Nitrite Ql (U) Negative Normal Negative [facility] Comment on above: Order Comment: Speci men Type: URINE SPECIMENOrdering Facility: [facility] Address: [address] [place] [address] Performed By: #### L [id number] ####[facility] LABIA [id number] [place] [address] [place] pH (U) 6.0 [pH] Normal <8.5 [facility] Comment on above: Order Comment: Speci men Type: URINE SPECIMENOrdering Facility: [facility] Address: [address] [place] [address] Performed By: #### L [id number] ####[facility] [id number] [place] [address] [place] Protein (U) [Mass/Vol] Negative Normal Negative [facility] Comment on above: Order Comment: Speci men Type: URINE SPECIMENOrdering Facility: [facility] Address: [address] [place] [address] Performed By: #### L [id number] ####[facility] [id number] [place] [address] [place] RBC LM.HPF (Urine sed) [#/Area] 6-10 /HPF Abnormal 0-2 /HPF [facility] Comment on above: Order Comment: Speci men Type: URINE SPECIMENOrdering Facility: [facility] Address: [address] [place] [address] Performed By: #### L [id number] ####[facility] LABIA [id number] [place] [address] [place] Specific gravity (U) [Rel density] 1.020 Normal 1.005-1.030 [facility] Comment on above: Order Comment: Speci men Type: URINE SPECIMENOrdering Facility: [facility] Address: [address] [place] [address] Performed By: #### L [id number] ####[facility] LABIA [id number] [place] [id number] [place] Urobilinogen Ql (U) 0.2 EU/dL Normal 0.2-1.0 EU/dL [facility] Comment on above: Order Comment: Speci men Type: URINE SPECIMENOrdering Facility: [facility] Address: [address] [place] [address] Performed By: #### L [id number] ####[facility] LABIA [id number] [place] [address] [place] WBC LM.HPF (Urine sed) [#/Area] 11-20 /HPF Abnormal 0-5 /HPF [facility] Comment on above: Order Comment: Speci men Type: URINE SPECIMENOrdering Facility: [facility] Address: [address] [place] [address] Performed By: #### L [id number] ####[facility] LABIA [id number] [address] [place] CNOVon 01-19-2024 CNOV Office Visit (NSCAMN ) KARLENE TOM ([id number]) 1980 F Date Time Provider Department 01/19/24 1:00 PM VANCE DALEY NSCAMN During your visit today, we recorded the following information about you: Temperature Pulse Respiration Blood pressure 98.4 degrees 88/minute 18/minute 130/61 Weight Height 130.1 kg 1.694 m Vance Daley PA-C 01/19/2024 2:02 PM Signed This note was created using NoteWriter. Subjective Karlene Tom is a 43 year old female here to re-establish care for tethered cord (spina bifida) and myelomeningocele with tethered cord, s/p cord detethering. Lipoma removed at with repair of the myelomeningocele. In 1994 she had another lipoma removed. 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 Huber. She has a lot of back pain and leg pain since she has been a child. She was told that there was nothing they could do about this. She was told she just had to deal with the pain. She has a neurogenic bladder and has to self cath. She also has chronic constipation. She was last seen by us in 2019 at which time she c/o worsening pain since surgery. She c/o low back pain and numbness and tingling in b/l LE. Pt is trying to get disability. She is unable to work. She hasn't been able to move as much. She has neuropathy from the waist down. She feels constant burning in the legs. The upper back is hurting and she has neck pain as well. She is unable to go out. She is only able to be on the feet and walk for 15-20 mins. Review of Systems Objective LMP 01/04/2024 Physical Exam Constitutional: Appearance: Normal appearance. HENT: Head: Normocephalic and atraumatic. Eyes: Extraocular Movements: Extraocular movements intact. Conjunctiva/sclera: Conjunctivae normal. Pulmonary: Effort: Pulmonary effort is normal. No respiratory distress. Skin: General: Skin is warm and dry. Neurological: General: No focal deficit present. Mental Status: She is alert and oriented to person, place, and time. GCS: GCS eye subscore is 4. GCS verbal subscore is 5. GCS motor subscore is 6. Cranial Nerves: No dysarthria or facial asymmetry. Motor: Weakness and abnormal muscle tone present. Coordination: Coordination abnormal. Gait: Gait abnormal. Comments: LE strength weaker on the R than L Limp on the R Unable to extend legs fully due to spasticity of the muscles. Hip flexion, leg extension, leg flexion weaker on the R than L Left weaker than normal 4+, R 4- Unable to perform heel walk or toe walk. Psychiatric: Mood and Affect: Mood normal. Behavior: Behavior normal. Assessment and Plan Spina bifida Tethered cord Myelomeningocele Repair at Detethering again in 1994 3rd detethering in 2016. 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 No current imaging. Recommend MRI cervical thoracic and lumbar. Lumbar to look at the tethered cord. Cervical to rule out chiari and spondylosis, 2nd to fine motor skills Thoracic due to mid back pain. Filled out questionnaire for state's attorney. Form copied for scanning into chart. F/u uafter imaging. I spent a total of 50 minutes on the date of the service which included preparing to see the patient, [id number] patient care, completing clinical documentation, obtaining and/or reviewing separately obtained history, performing a medically appropriate examination, counseling and educating the patient/family/caregi diomedes, ordering medications, tests, or procedures, communicating with other HCPs (not separately reported), independently interpreting results (not separately reported), communicating results to the patient/family/caregi diomedes, and care coordination (not separately reported). Yojana Weeks MA 01/19/2024 2:01 PM Signed Additional intake questions: Has the patient had fever, nausea, vomiting, diarrhea, constipation, fatigue for > 1 week? No Does the patient have a decreased appetite? No Does patient want to see a Cryptographic Technician? No (yes to any of above refer patient to schedulers for dietitian appointment) ) Does patient have any new or increased numbness or tingling of extremities? No Is patient interested in fertility information? No Does patient need any prescription refills? No Does patient have an advanced directive in place? No, Patient referred to Resource Center Electronically Signed By: Yojana Weeks MA Referring Provider: NORMA LYMAN [[id number]] Allergies As of Date: 01/19/2024 Noted Allergy Reaction LATEX 11/15/2007 10 - Anaphylaxis MORPHINE 05/26/2017 8 - GI Upset NEOSPORIN (NEOMYCIN-BACITRACIN- PO*10/07/2011 2 - Rash ZINC OXIDE 10/07/2011 2 - Rash Date Reviewed: 01/19/2024 Reviewed by: Yojana Weeks MA - Fully Assessed Reason for Visit: New Patient [1 (more content not included)... Normal [facility] XR LUMBAR 3V AP/LAT/L5-S1on 01-19-2024 XR LUMBAR 3V AP/LAT/L5-S1 * * *Final Report* * * DATE OF EXAM: Jan 19 2024 11:01AM FVX [id number] - XR LUMBAR 3V AP/LAT/L5-S1 / PROCEDURE REASON: multiple diagnoses * * * * Physician Interpretation * * * * Clinical: Back pain Technique: AP , lateral and coned down views of the lumbar spine RESULT: No evidence of acute fracture or subluxation is seen. 5 lumbar type vertebral bodies are present. L4-5 is at the iliac crest. There is no evidence for spondylolysis or spondylolisthesis. The vertebral body height and discs spaces demonstrates disc space narrowing at L4-L5 and L5-S1.. The alignment is grossly normal. IMPRESSION: Minimal lower lumbar spine disc space narrowing. Ticket Speculator: [employer] Transcribe Date/Time: Jan 25 2024 9:18A Dictated by : MONAE BRIAN MD This examination was interpreted and the report reviewed and electronically signed by: MONAE BRIAN MD on Jan 25 2024 9:19AM EST [id number] Normal [facility] HCG ( test) IA.naatlie maldonado Ql (U)Ordered By: Gene Chiang on 01-18-2024 HCG ( test) Ql (U) Negative NEGATIVE [facility] [place] [facility] Interpretation and review of laboratory results Normal [facility] HCG ( test) IA.natalie maldonado Ql (U)on 01-18-2024 HCG ( test) Ql (U) Negative Normal NEGATIVE [facility] Comment on above: Performed By: #### 8 [id number] #### AGUSTIN MUKHERJEE ([id number]) [facility] [address] [place] [address] CNOVon 01-06-2024 CNOV Office Visit (INTMLN ) KARLENE TOM ([id number]) 1980 F Date Time Provider Department 01/06/24 11:00 AM TRACIE WILLIAMSON INTMLN During your visit today, we recorded the following information about you: Temperature Pulse Blood pressure Weight 97.8 degrees 85/minute 114/78 125.1 kg Height Last Period 1.702 m 01/04/24 Tracie Williamson APRN.[facility] 01/08/2024 5:28 PM Signed CC:establish care S: current primary care is in [facility], she lives in [place], [place]. Is looking to transfer care to [facility] for speciality and primary. PMH: CHronic low back and leg pain since childhood. 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 She also reports that she cannot function without her chronic pain medications Lyrica and tramadol,has been taking tramadol for years, this was a step down from vicodin, takes along with lyrica. Tramadol dose recently decreased. Uses NSAID for extra pain control. Has used tramadol for years and started it when it was not a controlled substance, this was a step down from vicodin, takes along with lyrica. Tramadol dose recently decreased. Uses NSAID for extra pain control. She also uses cannabis gummies for pain. Her current PCP Dr. Sharma manages pain medication She saw spine health 12/12 and requested to follow-up with neurology specialist which she has an appointment upcoming to discuss treatment options further. She was [facility] to [facility] and that appointment is 03/14. She lives with her fiance and has 2 children in the home ages 11 and 25. Is currently unemployed states that she was denied disability on multiple occasions. Discussed her depression screening. She states that nothing is worse or different than her normal and that she does not have suicidal intent. PHQ-9 Score: 14 (Moderate Depression) PHQ-9 Self-Harm: Several days CANDACE-7 Score: 9 (Mild Anxiety) ACTIVE PROBLEM LIST Pain in Joint, Lower Leg Smoker Spina Bifida (Hcc) Latex Allergy Tethered Cord (Hcc) Morbid Obesity (Hcc) History of Urinary Self-Catheterization Lumbar Surgical Wound Fluid Collection PAST SURGICAL HISTORY Procedure Laterality Date COLPOSCOPY CERVIX UPPER/ADJACENT VAGINA 05/25 Colposcopy CONIZATION CERVIX W/WO DANDC RPR ELTRD EXC 07/25 LEEP-Cervix PAST SURGICAL HISTORY OF 04/26 r leg surgery PAST SURGICAL HISTORY OF 2006 pins removed - r leg PAST SURGICAL HISTORY OF 2002 or 2003 stomach revision FAMILY HISTORY Problem Relation Age of Onset Cancer Mother skin other (macular degenertion) Mother Mental illness Mother Cancer Father bladder Hypertension Father other (pre diabetes) Father other (pe) Father Ischemic Heart Disease Father Breast Cancer Paternal Grandmother Social History Tobacco Use Smoking status: Every Day Packs/day: 1.00 Years: 20.00 Additional pack years: 0.00 Total pack years: 20.00 Types: Cigarettes Last attempt to quit: 03/21/2015 Years since quittin.8 Smokeless tobacco: Never Substance Use Topics Alcohol use: No Drug use: Yes Types: Marijuana Comment: occasional gummies at HS O:BP 114/78 (BP Site: Right Arm, BP Position: Sitting, BP Cuff Size: Large Adult) Pulse 85 Temp 36.6 ?C (97.8 ?F) (Oral) Ht 170.2 cm (5' 7.01 ) Wt 125.1 kg (275 lb 12.7 oz) LMP 01/04/2024 SpO2 98% BMI 43.19 kg/m? PHYSICAL EXAMINATION: General appearance: Well appearing, alert, in no acute distress, well-hydrated, well nourished,overweight/ obese. Lungs: Lungs clear to auscultation. No wheezing, rhonchi, rales. Heart: RRR without murmur, gallop, or rubs. No ectopy Back:pain to palpation generalized to extremities as well Neuro: Gait normal. A:(Z76.89) Encounter to establish care (primary encounter diagnosis) (Q06.8) Tethered cord (HCC) (Q05.9) Spina bifida, unspecified hydrocephalus presence, unspecified spinal region (HCC) Comment: follow up with neuro department (G89.29) Other chronic pain Plan: has appointment with chronic pain recovery 03/14. I will need to discuss plan of care further with PCP who she will be established with Dr. Boo regarding management of her pain medications. (F17.200) Smoker Comment: Precontemplative Plan: Address in the future (F39) Mood disorder (HCC) Comment: No SI Plan: Due to time we did not explore this further, she is not interested in counseling. Requested records, follow-up with Dr. Boo to discuss pain medication management, review of outside labs and she also wants to discuss weight gain. Tracie Williamson APRN.FILTER ASSEMBLER Referring Provider: SELF [[id number]] Allergies As of Date: 01/06/2024 Noted Allergy Reaction LATEX 11/15/2007 10 - Anaphylaxis (more content not included)... Normal [facility] CNPNon 12-08-2023 CNPN Telephone (NSCAMN) KARLENE TOM ([id number]) 1980 F Date Time Provider Department 12/08/23 ARPITA KARIMI [facility] During your visit today, we recorded the following information about you: Arpita Karimi APRN.CNP 12/08/2023 9:32 AM Signed Time Frame: First available Provider: Thuy Huber Dx: tethered cord Established patient of Dr. Huber but not seen since 2019. Interval HPI : Ms. Tom is 37 year old female SP L4, L5 laminectomies for cord untethering in 05/2017. She also had previous procedures in infancy and age 14 for resection of associated sacral lipoma Arpita York, MSN, ANGIO TECHNOLOGIST, FILTER ASSEMBLER Certified Nurse Practitioner Lachelle Glass F 12/09/2023 7:55 PM Signed Scheduled Allergies As of Date: 12/08/2023 Noted Allergy Reaction LATEX 11/15/2007 10 - Anaphylaxis MORPHINE 05/26/2017 8 - GI Upset NEOSPORIN (NEOMYCIN-BACITRACIN- PO*10/07/2011 2 - Rash ZINC OXIDE 10/07/2011 2 - Rash Date Reviewed: 12/01/2023 Reviewed by: Linda Kendrick OD - Fully Assessed Reason for Visit: Nurse Triage Call [[id number]] Primary Visit Diagnosis:Tethered cord (HCC) [Q06.8] [Q06.8] Prescriptions as of 12/09/2023 - Ixstccwa-Ph-Wah-Fe-FA tab Take 1 tablet by mouth once daily. - pregabalin (LYRICA) 75 mg capsule Take 75 mg by mouth three times a day. - IBUPROFEN (MOTRIN ORAL) Take by mouth. - nitrofurantoin (MACRODANTIN) 25 mg capsule Take 10 mg by mouth as needed. - Ascorbic Acid (VITAMIN C) 100 mg tablet Take 100 mg by mouth once daily. - Multivitamins with Minerals cap Take by mouth. - traMADol (ULTRAM) 50 mg tablet Take 50 mg by mouth three times daily. - acetaminophen (TYLENOL) 325 mg tablet Take 1 tablet by mouth every 6 hours as needed. - gabapentin (NEURONTIN) 400 mg capsule Take 1 capsule by mouth three times daily. - cyclobenzaprine (FLEXERIL) 10 mg tablet Take 1 tablet by mouth three times daily as needed for Muscle Spasm. - Walker (ULTRA-LIGHT ROLLATOR) misc 1 Units as needed. Rollator with seat Problem List As Of Date 12/08/2023 Noted Resolved Unspecified site of sprain and strain [T14.8XXA]10/25/2003 05/17/2012 PAIN IN JOINT, LOWER LEG [M25.569] 09/18/2008 Smoker [F17.200] 05/17/2012 Spina bifida [Q05.9] 05/17/2012 Latex allergy [Z91.040] 05/17/2012 care, subsequent [Z34.80] 06/07/2012 Tethered cord (HCC) [Q06.8] 05/15/2017 Morbid obesity (HCC) [E66.01] 05/26/2017 History of urinary self-catheterization [Z78.9] 05/26/2017 Lumbar surgical wound fluid collection [T81.89X*06/17/2017 Encounter Status:Closed by ARPITA KARIMI on 12/08/23 [facility] CNOVon 12-07-2023 CNOV Office Visit ([facility] ) KARLENE TOM ([id number]) 1980 F Date Time Provider Department 12/07/23 2:45 PM NORMA LYMAN [facility] During your visit today, we recorded the following information about you: Weight 129 kg Norma Lyman APRN.FILTER ASSEMBLER 12/07/2023 4:26 PM Signed [facility] Low Back Pain - Chronic (> 12 weeks) Initial Exam SUBJECTIVE HISTORY OF PRESENT ILLNESS: Karlene Tom is a 42 year old female who presents with a chief complaint of low back and leg pain and is self-referred. Patient presents with low back pain since childhood. She was diagnosed with spina bifida and has undergone multiple surgeries for lumbar surgical repair including lumbar laminectomy and surgical repair for tethered cord. She reports that she did experience negative health outcomes after surgery stating that she almost during 2 of her previous surgeries. She was previously a patient of Dr. Huber and Vance Daley PA-C in the brain tumor department. She states that she has been under the care of advanced neurology in [facility]. She reports that her symptoms are worsening and she cannot perform ADLs. She also reports that she cannot function without her chronic pain medications Lyrica and tramadol. She states that she was told that although her symptoms are worsening she would from interventional procedures. She states that she was advised to seek consultation in regards to a spinal cord stimulator. She states I do not want some country doctor doing any surgeries on my spine. She states that she feels as though her symptoms are getting worse and she would like to be reevaluated by Dr. Huber or Vance Daley PA-C , to see if she is a surgical candidate or what her treatment options are for low back pain. She is in the process of changing all the doctors to the [facility] for better management of care. Unemployed -she states she has attempted to obtain disability multiple times without success Smoker -sensation reviewed and encouraged Pain localized to bilateral low back Pain described as aching, cramping Radiation:Buttocks and BLE - entirely Numbness/Tingling:BLE 0- entirely She denies any loss of bowel control. She reports that she has self cath since she was in her 20s. She denies dexterity difficulties, denies imbalance. Pain rated 7/10 Pain worse with everything Pain improved with sleep, tramadol, Lyrica Interventions: medications, chiropractor years ago Medications:Lyrica, tramadol Past medications: Gabapentin , flexeril Physical Therapy: Summer 2022 for mobility Treating Physicians: Dr. Sharma - PCP Shon Angel FILTER ASSEMBLER - Neurology Dr. Mccray - Pain management - [facility] Dr. 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 Precipitating Event: None PAIN EVALUATION 12/07/2023 1436 12/07/2023 1446 Pain Level: 7 7 Pain Location: Back-Lower Back-Lower radiates to both legs more on R Description: Aching;Burning;Spasm; Stabbing;Throbbing Aching;Cramping;Spasm Duration Amount of Time: 24 -- Duration Units: Hours Years Frequency: Continuous Continuous Intervention/Comfort measure: Medication;Reposition ;Relaxation;Massage -- Litigation: No Workers' Compensation: No YELLOW AND BLUE FLAGS YES-Neg Attitude; Back Pain is Disabling YES-Avoiding Activity (for Fear of Pain) No-Depression or Anxiety Disorders No-Social Problems No-Substance Use Disorder No-Job Dissatisfaction No-Financial Disincentives Patient Entered Questionnaires PROMIS Score Percentiles Percentiles provide an indication of how the patient's score ranks in relation to the general population. Higher percentile rankings indicate better function/quality of life. 50th percentile is the average of the general population and indicates half of respondents had a worse score. Depression Screenin01/12/2018 06/08/2018 12/07/2018 PHQ-9 Score 21 24 16 01/12/2018 06/08/2018 12/07/2018 PHQ-9 Self-harm Question Question 9 More than half the days Several days Not at all PHQ-9 Self-Harm (Item 9) response options: 0 Not at all 1 Several days 2 More than half the days 3 Nearly every day PHQ-9 Levels: 0-4 No - mild depression 5-9 Mild depression 10-14 Moderate depression 15-19 Moderately severe depression 20-27 Severe depression ACTIVE PROBLEM LIST Pain in Joint, Lower Leg Smoker Spina Bifida (Hcc) Latex Allergy Care, Subsequent Tethered Cord (Hcc) Morbid Obesity (Hcc) History of Urinary Self-Catheterization Lumbar Surgical Wound Fluid Collection PAST MEDICAL HISTORY Diagnosis Date Abnormal Pap (more content not included)... Normal [facility] Urine Cultureon 11-20-2023 Bacteria identified Cx Nom (U) ORGANISM: Escherichia coli (O:ESCCOL) [place] Count >100,000 Aerobic DEEP Charge (NMIC56) ---- SUSCEPTIBILITY --- ORGANISM: O:ESCCOL ANTIBIOTIC INTERPRETATION DEEP Amikacin S <16 Amoxacillin/K Clavulanate S <8 Ampicillin S <8 Ampicillin/Sulbactam S <4 Aztreonam S <4 Cefazolin S <2 Cefepime S <2 Ceftazidime S <1 Ceftazidime/Avibactam S <4 Ceftolozane/Tazobacta m S <2 Ceftriaxone S <1 Cefuroxime S <4 Ciprofloxacin S <0.25 Ertapenem S <0.5 Gentamicin S <2 Levofloxacin S <0.5 Meropenem S <1 Meropenem/Vaborbactam S <2 Nitrofurantoin S <32 Piperacillin/Tazobact am S <8 Tetracycline S <4 Tigecycline S <2 Tobramycin S <2 Trimethoprim/Sulfamet hoxazole S <0.5 S = SUSCEPTIBLE I = INTERMEDIATE R = RESISTANT BLANK = DATA NOT AVAILABLE, OR DRUG NOT ADVISABLE OR TESTED R* = RESISTANCE DUE TO EXTENDED SPECTRUM BETA-LACTAMASES ESBL = EXTENDED SPECTRUM BETA-LACTAMASE TFG = THYMIDINE-DEPENDENT STRAIN RUBY = BETA-LACTAMASE POSITIVE IB = INDUCIBLE BETA-LACTAMASE. APPEARS IN PLACE OF 'S' WITH SPECIES KNOWN TO POSSESS INDUCIBLE BETA-LACTAMASES. POTENTIALLY THEY MAY BECOME RESISTANT TO ALL B-LACTAM DRUGS. PERFORMED BY: [address] [place] [address] PATHOLOGIST INFUSION NURSE MADI MASTERSON M.D. Normal [facility] Comment on above: Performed By: #### C UU #### [address] Alanine aminotransferase [En zymatic activity/volume] in Serum or PlasmaOrdered By: Eric Curran on 05-18-2023 ALT [Catalytic activity/Vol] 16 U/L 7-52 [facility] Albumin [Mass/volume] in Ser um or Plasma by Bromocresol green (BCG) dye binding methoOrdered By: Eric Curran on 05-18-2023 Albumin BCG dye [Mass/Vol] 4.1 g/dL 3.5-5.7 [facility] Alkaline phosphatase [Enzyma tic activity/volume] in Serum or PlasmaOrdered By: Eric Curran on 05-18-2023 ALP [Catalytic activity/Vol] 69 U/L 34-104 [facility] Aspartate aminotransferase [ Enzymatic activity/volume] in Serum or PlasmaOrdered By: Erci Curran on 05-18-2023 AST [Catalytic activity/Vol] 14 U/L 13-39 [facility] Basophils Auto (Bld) [#/Vol] Ordered By: PROVIDER TEMP on 05-18-2023 Basophils (Bld) [#/Vol] 0.1 10*3/uL 0.0-0.2 [facility] Basophils/100 WBC Auto (Bld) Ordered By: PROVIDER TEMP on 05-18-2023 Basophils/100 WBC (Bld) 0.8 % . [facility] Bilirubin.total [Mass/volume ] in Serum or PlasmaOrdered By: Eric Curran on 05-18-2023 Bilirubin [Mass/Vol] 0.3 mg/dL 0.3-1.[address] [facility] [address] head/brain wo conon 05-18 CT head/brain wo con [facility] Main [place] [id number] CT Scan Report Signed Patient: Karlene Tom MR#: [id number] : 1980 Acct:[id number] Age/Sex: 42 / F ADM Date: 05/18/23 Loc: ER Room: Type: [facility] ER Attending Dr: Copies to: Eric [...] Rodney Regalado M.D.05/18/2023 8:43 PM Dictation Location: [place] [address] Transcribed By: [facility] 05/18/232042 Dictated By: Rodney Regalado DO 05/18/232041 Signed By: 05/18/232042 Normal [facility] Calcium [Mass/volume] in Ser um or PlasmaOrdered By: Eric Curran on 05-18-2023 Calcium [Mass/Vol] 8.9 mg/dL 8.6-10.3 [facility] Chloride [Moles/volume] in S gisel or PlasmaOrdered By: Eric Curran on 05-18-2023 Chloride [Moles/Vol] 105 mmol/L 98-107 [facility] Complete Blood Count Auto Di ffon 05-18-2023 Basophils (Bld) [#/Vol] 0.1 10*3/uL Normal 0.0-0.2 [facility] Comment on above: Result Comment: PERF ORMED BY: [facility] [address] [place] [address] PATHOLOGIST INFUSION NURSE MADI MASTERSON M.D. Performed By: #### H S TROP, CMP, CK, CBC #### [facility] [address] Basophils/100 WBC (Bld) 0.8 % Normal . [facility] Comment on above: Performed By: #### H S TROP, CMP, CK, CBC #### [address] Eosinophils (Bld) [#/Vol] 0.1 10*3/uL Normal 0.0-0.45 [facility] Comment on above: Performed By: #### H S TROP, CMP, CK, CBC #### [address] Eosinophils/100 WBC (Bld) 1.4 % Normal . [facility] Comment on above: Performed By: #### H S TROP, CMP, CK, CBC #### [address] Erythrocyte distribution width (RBC) [Ratio] 12.7 % Normal 11.9-15.3 [facility] Comment on above: Performed By: #### H S TROP, CMP, CK, CBC #### [address] Hematocrit (Bld) [Volume fraction] 41.1 % Normal 34.0-46.4 [facility] Comment on above: Performed By: #### H S TROP, CMP, CK, CBC #### [address] Hemoglobin (Bld) [Mass/Vol] 13.9 g/dL Normal 11.8-15.4 [facility] Comment on above: Performed By: #### H S TROP, CMP, CK, CBC #### [place] [address] [place] Lymphocytes (Bld) [#/Vol] 2.3 10*3/uL Normal 1.00-4.8 [facility] Comment on above: Performed By: #### H S TROP, CMP, CK, CBC #### [place] [address] [place] Lymphocytes/100 WBC (Bld) 23.1 % Normal . [facility] Comment on above: Performed By: #### H S TROP, CMP, CK, CBC #### [address] MCH (RBC) [Entitic mass] 29.4 pg Normal 24.7-34.3 [facility] Comment on above: Performed By: #### H S TROP, CMP, CK, CBC #### [address] MCV (RBC) [Entitic vol] 86.7 fL Normal 80-100 [facility] Comment on above: Performed By: #### H S TROP, CMP, CK, CBC #### [address] Mean Corpuscular HGB Conc 33.9 g/dL Normal 32.0-35.0 [facility] Comment on above: Performed By: #### H S TROP, CMP, CK, CBC #### [address] Monocytes (Bld) [#/Vol] 0.6 10*3/uL Normal 0.0-0.8 [facility] Comment on above: Performed By: #### H S TROP, CMP, CK, CBC #### [address] Monocytes/100 WBC (Bld) 15.48 % Normal 0.00-20.00 [facility] Comment on above: Performed By: #### H S TROP, CMP, CK, CBC #### [address] Monocytes/100 WBC (Bld) 6.0 % Normal . [facility] Comment on above: Performed By: #### H S TROP, CMP, CK, CBC #### [address] Neutrophils (Bld) [#/Vol] 6.7 10*3/uL Normal 1.8-7.7 [facility] Comment on above: Performed By: #### H S TROP, CMP, CK, CBC #### [place] [address] Neutrophils/100 WBC (Bld) 68.7 % Normal . [facility] Comment on above: Performed By: #### H S TROP, CMP, CK, CBC #### [address] NRBC% 0.2 /100{WBC} Normal 0-0.5 [facility] Comment on above: Performed By: #### H S TROP, CMP, CK, CBC #### [address] Platelet mean volume (Bld) [Entitic vol] 8.0 fL Normal 6.3-10.7 [facility] Comment on above: Performed By: #### H S TROP, CMP, CK, CBC #### [address] Platelets (Bld) [#/Vol] 247 10*3/uL Normal 150-450 [facility] Comment on above: Performed By: #### H S TROP, CMP, CK, CBC #### [address] RBC (Bld) [#/Vol] 4.74 10*6/uL Normal 3.60-5.00 [facility] Comment on above: Performed By: #### H S TROP, CMP, CK, CBC #### [address] WBC (Bld) [#/Vol] 9.7 10*3/uL Normal 3.8-11.6 [facility] Comment on above: Performed By: #### H S TROP, CMP, CK, CBC #### [address] Comprehensive Metabolic Pane margo 05-18-2023 Albumin [Mass/Vol] 4.1 g/dL Normal 3.5-5.7 [facility] Comment on above: Performed By: #### H S TROP, CMP, CK, CBC #### [address] Albumin/Globulin [Mass ratio] 1.4 {ratio} Normal [facility] Comment on above: Performed By: #### H S TROP, CMP, CK, CBC #### [address] ALP [Catalytic activity/Vol] 69 U/L Normal 34-104 [facility] Comment on above: Performed By: #### H S TROP, CMP, CK, CBC #### [address] ALT [Catalytic activity/Vol] 16 U/L Normal 7-52 [facility] Comment on above: Performed By: #### H S TROP, CMP, CK, CBC #### [address] Anion gap [Moles/Vol] 12.3 mmol/L Normal 6.0-15.0 [facility] Comment on above: Performed By: #### H S TROP, CMP, CK, CBC #### [address] AST [Catalytic activity/Vol] 14 U/L Normal 13-39 [facility] Comment on above: Performed By: #### H S TROP, CMP, CK, CBC #### [address] Bilirubin [Mass/Vol] 0.3 mg/dL Normal 0.3-1.0 [facility] Comment on above: Performed By: #### H S TROP, CMP, CK, CBC #### [address] Calcium [Mass/Vol] 8.9 mg/dL Normal 8.6-10.3 [facility] Comment on above: Performed By: #### H S TROP, CMP, CK, CBC #### [address] Chloride [Moles/Vol] 105 mmol/L Normal 98-107 [facility] Comment on above: Performed By: #### H S TROP, CMP, CK, CBC #### [address] CO2 [Moles/Vol] 24.8 mmol/L Normal 21.0-31.0 [facility] Comment on above: Performed By: #### H S TROP, CMP, CK, CBC #### [address] Creatinine [Mass/Vol] 0.76 mg/dL Normal 0.60-1.20 [facility] Comment on above: Performed By: #### H S TROP, CMP, CK, CBC #### [address] Creatinine Clr Calc Pharmacy 131.87 [facility] Comment on above: Result Comment: PERF ORMED BY: [place] [address] PATHOLOGIST INFUSION NURSE MADI MASTERSON M.D. Performed By: #### H S TROP, CMP, CK, CBC #### [address] GFR/1.73 sq M.predicted MDRD (S/P/Bld) [Vol rate/Area] mL/min/{1.73_m2} [facility] Comment on above: Performed By: #### H S TROP, CMP, CK, CBC #### [address] Globulin (S) [Mass/Vol] 3.0 g/dL [facility] Comment on above: Performed By: #### H S TROP, CMP, CK, CBC #### [address] Glucose [Mass/Vol] 84 mg/dL Normal 70-100 [facility] Comment on above: Result Comment: [place] Glucose Reference Range is dependent on time and content of last meal. Glucose of more than 200 mg/dL in a nonstressed, ambulatory subject supports the diagnosis of Diabetes Mellitus. ADA recommended reference range Performed By: #### H S TROP, CMP, CK, CBC #### [address] Potassium [Moles/Vol] 4.1 mmol/L Normal 3.5-5.1 [facility] Comment on above: Performed By: #### H S TROP, CMP, CK, CBC #### [facility] [address] [place] [address] Protein [Mass/Vol] 7.1 g/dL Normal 6.4-8.9 [facility] Comment on above: Performed By: #### H S TROP, CMP, CK, CBC #### [address] Sodium [Moles/Vol] 138 mmol/L Normal 136-145 [facility] Comment on above: Performed By: #### H S TROP, CMP, CK, CBC #### [address] Urea nitrogen [Mass/Vol] 13 mg/dL Normal 7-25 [facility] Comment on above: Performed By: #### H S TROP, CMP, CK, CBC #### [facility] [address] [place] [address] [place] Creatine Kinaseon 05-18-2023 CK [Catalytic activity/Vol] 37 U/L Normal [facility] Comment on above: Performed By: #### H S TROP, CMP, CK, CBC #### [address] Creatine kinase [Enzymatic a ctivity/volume] in Serum or PlasmaOrdered By: Eric Curran on 05-18-2023 CK [Catalytic activity/Vol] 37 U/L [facility] Creatinine [Mass/volume] in Serum or PlasmaOrdered By: Eric Curran on 05-18-2023 Creatinine [Mass/Vol] 0.76 mg/dL 0.60-1.20 [facility] ECG 12 lead ECGon 05-18-2023 ECG 12 lead ECG [facility] Main [place] [address] [place] [address] Electrocardiograph Report Signed Patient: Karlene Tom MR#: [id number] : 1980 Acct:[id number] Age/Sex: 42 / F ADM Date: 05/18/23 Loc: ER Room: Type: [facility] ER Attending Dr: Ordering Provider: Eric [...] Signed By Eric Curran DO 0553 Normal [facility] Eosinophils Auto (Bld) [#/Vo l]Ordered By: PROVIDER TEMP on 05-18-2023 Eosinophils (Bld) [#/Vol] 0.1 10*3/uL 0.0-0.45 [facility] Eosinophils/100 WBC Auto (Bl d)Ordered By: PROVIDER TEMP on 05-18-2023 Eosinophils/100 WBC (Bld) 1.4 % . [facility] Erythrocyte distribution wid th Auto (RBC) [Ratio]Ordered By: PROVIDER TEMP on 05-18-2023 Erythrocyte distribution width (RBC) [Ratio] 12.7 % 11.9-15.3 [facility] Globulin Calc (S) [Mass/Vol] Ordered By: Eric Curran on 05-18-2023 Globulin (S) [Mass/Vol] 3.0 g/dL [facility] Glucose [Mass/volume] in Ser um or PlasmaOrdered By: Eric Curran on 05-18-2023 Glucose [Mass/Vol] 84 mg/dL 70-100 [facility] Comment on above: ADA recommended refe rence rangeRandom Glucose Reference Range is dependent on time and content of last meal. Glucose of more than 200 mg/dL in a nonstressed, ambulatory subject supports the diagnosis of Diabetes Mellitus. Hematocrit Auto (Bld) [Volum e fraction]Ordered By: PROVIDER TEMP on 05-18-2023 Hematocrit (Bld) [Volume fraction] 41.1 % 34.0-46.4 [facility] Hemoglobin [Mass/volume] in BloodOrdered By: PROVIDER TEMP on 05-18-2023 Hemoglobin (Bld) [Mass/Vol] 13.9 g/dL 11.8-15.4 [facility] Leukocytes [#/volume] correc demond for nucleated erythrocytes in Blood by Automated counOrdered By: PROVIDER TEMP on 05-18-2023 WBC corrected for nucl RBC Auto (Bld) [#/Vol] 9.7 10*3/uL 3.8-11.6 [facility] Lymphocytes Auto (Bld) [#/Vo l]Ordered By: PROVIDER TEMP on 05-18-2023 Lymphocytes (Bld) [#/Vol] 2.3 10*3/uL 1.00-4.8 [facility] Lymphocytes/100 WBC Auto (Bl d)Ordered By: PROVIDER TEMP on 05-18-2023 Lymphocytes/100 WBC (Bld) 23.1 % . [facility] MCH Auto (RBC) [Entitic mass ]Ordered By: PROVIDER TEMP on 05-18-2023 MCH (RBC) [Entitic mass] 29.4 pg 24.7-34.3 [facility] MCHC Auto (RBC) [Mass/Vol]Or dered By: PROVIDER TEMP on 05-18-2023 MCHC (RBC) [Mass/Vol] 33.9 g/dL 32.0-35.0 [facility] MCV Auto (RBC) [Entitic vol] Ordered By: PROVIDER TEMP on 05-18-2023 MCV (RBC) [Entitic vol] 86.7 fL 80-100 [facility] Monocyte distribution width [Entitic volume] in Blood by AutomatedOrdered By: PROVIDER TEMP on 05-18-2023 Monocyte distribution width Auto (Bld) [Entitic vol] 15.48 % 0.00-20.00 [facility] Monocytes Auto (Bld) [#/Vol] Ordered By: PROVIDER TEMP on 05-18-2023 Monocytes (Bld) [#/Vol] 0.6 10*3/uL 0.0-0.8 [facility] Monocytes/100 WBC Auto (Bld) Ordered By: PROVIDER TEMP on 05-18-2023 Monocytes/100 WBC (Bld) 6.0 % . [facility] Neutrophils Auto (Bld) [#/Vo l]Ordered By: PROVIDER TEMP on 05-18-2023 Neutrophils (Bld) [#/Vol] 6.7 10*3/uL 1.8-7.7 [facility] Neutrophils/100 WBC Auto (Bl d)Ordered By: PROVIDER TEMP on 05-18-2023 Neutrophils/100 WBC (Bld) 68.7 % . [facility] No Panel InformationOrdered By: Eric Curran on 05-18-2023 Estimated GFR (CKD-EPI) > 60.0 mL/Min [facility] Creatinine Clearance (Chem 131.87 [facility] Nucleated erythrocytes [Pres ence] in Blood by Automated countOrdered By: PROVIDER TEMP on 05-18-2023 Nucleated RBC Auto Ql (Bld) 0.2 /100{WBC} 0-0.5 [facility] Platelet mean volume Auto (B ld) [Entitic vol]Ordered By: PROVIDER TEMP on 05-18-2023 Platelet mean volume (Bld) [Entitic vol] 8.0 fL 6.3-10.7 [facility] Platelets Auto (Bld) [#/Vol] Ordered By: PROVIDER TEMP on 05-18-2023 Platelets (Bld) [#/Vol] 247 10*3/uL 150-450 [facility] Potassium [Moles/volume] in Serum or PlasmaOrdered By: Eric Curran on 05-18-2023 Potassium [Moles/Vol] 4.1 mmol/L 3.5-5.1 [facility] Protein [Mass/volume] in Ser um or PlasmaOrdered By: Eric Curran on 05-18-2023 Protein [Mass/Vol] 7.1 g/dL 6.4-8.9 [facility] RBC Auto (Bld) [#/Vol]Ordere d By: PROVIDER TEMP on 05-18-2023 RBC (Bld) [#/Vol] 4.74 10*6/uL 3.60-5.00 [facility] Serum or plasma albumin/glob ulin mass ratioOrdered By: Eric Curran on 05-18-2023 Albumin/Globulin [Mass ratio] 1.4 {ratio} [facility] Sodium [Moles/volume] in Ser um or PlasmaOrdered By: Eric Curran on 05-18-2023 Sodium [Moles/Vol] 138 mmol/L 136-145 [facility] Troponin I High Sensitivityo n 05-18-2023 Troponin I High Sensitivity 2.6 pg/mL Normal 0.0-15.0 [facility] Comment on above: Result Comment: PERF ORMED BY: [facility] [place] [address] PATHOLOGIST INFUSION NURSE MADI MASTERSNO M.D. Performed By: #### H S TROP, CMP, CK, CBC #### [address] Troponin I.cardiac [Mass/vol ume] in Serum or Plasma by Detection limit <= 0.01 ng/Ordered By: Eric Curran on 05-18-2023 Troponin I.cardiac DL <= 0.01 ng/mL [Mass/Vol] 2.6 pg/mL 0.0-15.0 [facility] Urea nitrogen [Mass/volume] in Serum or PlasmaOrdered By: Eric Curran on 05-18-2023 Urea nitrogen [Mass/Vol] 13 mg/dL 7-25 [facility] WBC Auto (Bld) [#/Vol]Ordere d By: PROVIDER TEMP on 05-18-2023 WBC (Bld) [#/Vol] 9.7 10*3/uL 3.8-11.6 [facility] Anesthesiaon 03-19-2023 Anesthesia Patient: KARLENE TOM Age: [...] Postoperative hydration status: euvolemic. Notes: Normothermia. Normal [facility] Anesthesiaon 03-18-2023 Anesthesia Patient: KARLENE TOM Age: [...] palate, fauces, uvula visible). Assessment and Plan [place] [employer]esthesiologists (ASA) physical status classification: [...] recognition software. Verbal misinterpretations may occur. Normal [facility] FENTANYL 100mcg INJon 2022 FENTANYL 100mcg INJ [...] Ángela Nieves RN - 03/18/2023 13:44 EDT [facility] Comment on above: Order Comment: maxim [...] Ángela Nieves RN - 03/18/2023 13:44 EDT [facility] Comment on above: Order Comment: maxim [...] Nieves RN - 03/18/2023 13:25 EDT Normal [facility] Comment on above: Order Comment: maxim um 2 mg; Phase I PACU only; For pain level 7-10;potential SOUND ALIKE/LOOK ALIKE-verify med;CAUTION: Hydromorphone IV is 7 times more potent than morphine IV; Inpatient Patient Summaryon 03-18-2023 Inpatient Patient Summary [facility] Discharge Instructions [address] [place] [address] (Patient Copy) Name: NEGRO KARLENE Joel : 1980 Diagnosis: Allergies: LATEX allergy; Silvadene; Cipro Registration Date: 03/18/23 Current Date Time: 03/18/2023 13:25:07 Address: [address] [place] [address] Phone: [phone] Primary Care Provider: Name: DESHAWN SHARMA SR Phone: [phone] Thank you for choosing [facility] for your care. You are very important to us. Our goal is to demonstrate our high quality medical care and provide you with a very good patient experience. You may receive a survey about our service. Please take the time to complete the survey and return it so we can continue to enhance our service. Thank you again for allowing [facility] to care for your medical needs. If you have any questions about your care or follow up information please contact your doctor. Follow-up Instructions With: Address: When: DOMINICK LOPES, Urology [address] [facility], 2nd floor [place] [id number] [facility] (1) In 2 weeks 04/01/2023 If you [...] the a (more content not included)... Normal [facility] OR Nursing Record - Main Becky n 03-18-2023 OR Nursing Record - Main OR OR Nursing Record - Main OR Summary Primary Physician: DOMINICK LOPES MD Finalized Date/Time: 03/18/23 13:05:52 Pt. Name: KARLENE TOM/Sex: 1980 Female Med Rec #: [id number] Physician: Financial #: [id number] Pt. Type: A Room/Bed: / Admit/Disch: 03/18/23 08:40:30 - Institution: Transport to OR - Main OR Entry 1 By Faustino Coyle RN, FORD Date/Time Leaving 03/18/23 12:14:00 PA-C, FABY Del Valle Siderails Up? Yes Report Received From Rosa Faye RN Last Modified By: Faustino Coyle RN 03/18/23 12:19:59 Case Times - Main OR Entry 1 Patient In Room Time 03/18/23 12:15:00 Out Room Time 03/18/23 12:59:00 Anesthesia Facility Times Induction Time 03/18/23 12:16:00 Stop Time 03/18/23 12:57:00 [place] Protocol Yes Completed Surgery Start Time 03/18/23 12:35:00 Stop Time 03/18/23 12:48:00 Last Modified By: Faustino Coyle RN 03/18/23 12:57:11 Surgical Procedures - Main OR Entry 1 Procedure Cystoscopy Modifiers None Surgeon Procedure CYSTOSCOPY, BOTOX Primary Procedure Yes Description INJECTION 200 UNITS Primary Surgeon MARIANNE MON, DOMINICK Start 03/18/23 12:35:00 Stop 03/18/23 12:48:00 Anesthesia Type MAC Surgical Service SN - Urology Last Modified By: Faustino Coyle RN 03/18/23 12:48:36 Case Attendance - Main OR Entry 1 Entry 2 Entry 3 Case Attendee MARIANNE MON, HUGO SÁNCHEZ DO, YOJANA Role Performed Surgeon Primary Anesthesiologist Primary Anesthesia Asst/QUILL WORKER Time In 03/18/23 12:15:00 03/18/23 12:15:00 03/18/23 12:15:00 Time Out 03/18/23 12:59:00 03/18/23 12:59:00 03/18/23 12:59:00 Procedure Cystoscopy(None) Cystoscopy(None) Cystoscopy(None) Last Modified By: Faustino Coyle RN, RN, Faustino Weber RN 03/18/23 12:57:13 03/18/23 12:57:13 03/18/23 12:57:13 Entry 4 Entry 5 Entry 6 Case Attendee Faustino Coyle RNC, FABY Reilly RN, Elinor Role Performed Day Worker Primary PA-C Primary Scrub Primary Time In 03/18/23 12:15:00 03/18/23 12:15:00 03/18/23 12:15:00 Time Out 03/18/23 12:59:00 03/18/23 12:59:00 03/18/23 12:59:00 Procedure Cystoscopy(None) Cystoscopy(None) Cystoscopy(None) Last Modified By: Jonna WILEY, Faustino Coyle RN, Faustino Weber RN 03/18/23 12:57:13 03/18/23 12:57:13 03/18/23 12:57:13 Entry 7 Case Attendee LILLI SANABRIA PA-C Performed PA-C Second Time In 03/18/23 12:15:00 [...] FORD Positioning Devices SCDs Knee High, Pillow PA-C, FABY, LOCKE under Head, Safety AA-C, YOJANA Strap, Padded Armboard Last Modified By: Faustino [...] OR Entry (more content not included)... Normal [facility] Operative Reporton Operative Report Date of Operation 03/18/2023 13:03 Indication for Surgery Refractory to medical therapy with urgency incontinence. Patient has counseled regarding the options for therapy. Patient decided to proceed with cystoscopy and Botox injection 200 units *Preoperative Diagnosis Neurogenic bladder with urgency incontinence *Postoperative Diagnosis Same Operative Procedure Cystoscopy and Botox injection 200 units Surgeon(s) DOMINICK LOPES MD (Surgeon Primary) Drill Punch Operator FABY AGRAWAL PA-C (PAIdalmisC Primary) LILLI SANABRIA PA-C (PALuke Second) Indication for Tractor Operator Laser Leveling Given the inherent complexity of this surgery, a second surgeon or a surgically skilled physician hr assistant was necessary for the successful completion of this entire operative procedure. The surgical instrument repair specialist was present for the entire operative procedure and participated in all aspects of patient care This included transporting the patient to the operating room and entering room with the patient, assisting with preoperative positioning, first assisting throughout the entire surgical procedure by functioning as a second hr assistant surgeon, assisting with surgical closure, and finally accompanying the patient to recovery. Anesthesia MAC HUGO ERAZO DO (Door Glass Installer) YOJANA MURRAY (Provider) *Estimated Blood Loss None *Specimen(s) [...] and draped in usual fashion. The 21 Turkmen cystoscope was atraumatically introduced into the bladder. [...] good condition she tolerated procedure well. Normal [facility] Director Of Patient Care Details- Texton 03-18-2023 Director Of Patient Care Details- Text Director Of Patient Care Details Entered On: 03/18/2023 8:37 EDT Performed On: 03/18/2023 9:30 EDT by Rosa Faye RN Director Of Patient Care Details Director Of Patient Care Details Review Status : Reviewed, no changes [...] Faye RN - 03/18/2023 8:36 EDT Normal [facility] Outpatient Admission Data- T exton 03-18-2023 Outpatient [...] Rosa Faye RN - 03/18/2023 9:30 EDT Nikita Coma Eye Opening Response [place] : Spontaneously Best Verbal Response Nikita : Oriented Best Motor Response [place] : Obeys simple commands Nikita Coma Score : 15 Rosa Faye RN [...] Faye RN - 03/18/2023 9:30 EDT Normal [facility] PACU Phase I - Main ORon PACU Phase I - Main OR PACU Phase I - Main OR Summary Primary Physician: DOMNIICK LOPES MD Finalized Date/Time: 03/18/23 13:57:01 Pt. Name: KARLENE TOM/Sex: 1980 Female Med Rec #: [id number] Physician: Financial #: [id number] Pt. Type: A Room/Bed: / Admit/Disch: 03/18/23 08:40:30 - Institution: PACU I - Case Times - Main OR Entry 1 In PACU I 03/18/23 13:00:00 Ready for Transfer 03/18/23 13:52:00 Last Modified By: Ángela Nieves RN 03/18/23 13:56:29 Finalized By: Ángela Nieves RN Document Signatures Signed By: Ángela Nieves RN 03/18/23 13:57 Normal [facility] PACU Phase II - Main ORon PACU Phase II - Main OR PACU Phase II - Main OR Summary Primary Physician: DOMINICK LOPES MD Finalized Date/Time: 03/18/23 14:05:49 Pt. Name: KARLENE TOM/Sex: 1980 Female Med Rec #: [id number] Physician: Financial #: [id number] Pt. Type: A Room/Bed: / Admit/Disch: 03/18/23 08:40:30 - Institution: PACU II - Case Times - Main OR Entry 1 In PACU II 03/18/23 13:52:00 Ready for PACU II n/a Discharge Discharge from PACU 03/18/23 14:05:00 II Last Modified By: Ángela Salazar RN 03/18/23 14:05:39 Finalized By: Ángela Salazar RN Document Signatures Signed By: Ángela Salazar RN 03/18/23 14:05 Normal [facility] Preop - Main ORon 03-18-2023 Preop - Main OR Preop - Main OR Summary Primary Physician: DOMINICK LOPES MD Finalized Date/Time: 03/18/23 12:29:01 Pt. Name: KARLENE TOM/Sex: 1980 Female Med Rec #: [id number] Physician: Financial #: [id number] Pt. Type: A Room/Bed: / Admit/Disch: 03/18/23 [...] 09:26 Rosa Faye RN 03/18/23 12:29 Normal [facility] U TESTon 3 Test, U Negative Normal [facility] Comment on above: Order Comment: Femal es: 10 and older Performed By: #### 1 [id number] ####[facility] [address] [place], [place] [id number] Medical Director: Jhon Landon MD U Preg Internal QC Present Normal [facility] Comment on above: Order Comment: Femal es: 10 and older Performed By: #### 1 [id number] ####[facility] [id number] [place] [address] Medical Director: Jhon Landon MD [place] Protocol/Pre-Proc TimeOut-Texton 03-18-2023 [place] Protocol/Pre-Proc TimeOut-Text [place] Protocol Entered On: 03/18/2023 8:37 EDT Performed On: 03/18/2023 9:32 EDT by Rosa Faye RN. All Procedures Pre-Procedure Verification : Patient Identification [...] Exempt From Marking Site : PERINEUM Laterality [place] Protocol : N/A Site Verification Completed : [...] Coyle RN - 03/18/2023 13:04 EDT Normal [facility] Preadmission Testing Progres s Noteon 03-09-2023 Preadmission Testing Progress Note Positive urine culture results with susceptibility report faxed to Dr. Lopes's office for review. Spoke with Dinora in Dr. Lopes's office to notify. Normal [facility] C URINEon 03-08-2023 C URINE [facility] Dept of Laboratory Services [address] [place] [address] Name: KARLENE TOM : 1980 Admitting Provider: Gender Female Financial [phone] : Number: Locatio SW ASC n: Admit [...] KARLENE TOM Print 03/08/2023 06:32 EDT Date/Time: [facility] Dept of Laboratory Services [address] [place] [address] Name: KARLENE TOM : 1980 Admitting Provider: Gender Female Financial [phone] : Number: [facility] n: Admit Date: Discharge Microbiology Date: SUSCEPTIBILITY RESULTS Klebsiella pneumoniae ssp pneumoniae Antibiotic DEEP Interp Ciprofloxacin Susceptible Gentamicin Susceptible Nitrofurantoin Intermediate Piperacillin/Tazobact am Susceptible Trimethoprim/Sulfamet hoxazole Susceptible ____ L=Low, H= High, *= Abnormal, C=Critical, f=Footnote, c=Corrected, i=Interp Data Name: KARLENE TOM Print 03/08/2023 06:32 EDT Date/Time: Normal [facility] Comment on above: Performed By: #### 1 [id number] ####[facility] [address] [place] [address] Medical Director: Jhon Landon MD Preadmission Testing [place] s Notecorine 03-06-2023 Preadmission Testing Progress Note PREADMISSION TESTING [...] X ] Advanced Directive (IF APPLICABLE) Normal [facility] BASIC METABOLIC PANELon - Anion gap [Moles/Vol] 6 mmol/L Low 10 - 20 [facility] Comment on above: Performed By: #### B MP #### [address] [place] [address] Calcium [Mass/Vol] 8.8 mg/dL Normal 8.6 - 10.3 [facility] Comment on above: Performed By: #### B MP #### [address] [place] [address] Chloride [Moles/Vol] 107 mmol/L Normal 98 - 107 [facility] Comment on above: Performed By: #### B MP #### [address] [place] [address] Creatinine [Mass/Vol] 0.69 mg/dL Normal 0.50 - 1.05 [facility] Comment on above: Performed By: #### B MP #### [address] [place] [address] eGFR FEMALE >90 Normal >90 [facility] [place] [facility] Comment on above: Result Comment: CALC ULATIONS OF ESTIMATED GFR ARE PERFORMED USING THE 2020 CKD-EPI STUDY REFIT EQUATION WITHOUT THE RACE VARIABLE FOR THE IDMS-TRACEABLE CREATININE METHODS. https://jasn.asnjournals.org/content//ASN.305138 9508 Performed By: #### B MP #### [address] [place] [address] Glucose [Mass/Vol] 100 mg/dL High 74 - 99 [facility] Comment on above: Performed By: #### B MP #### [address] [place] [address] HCO3 (Bld) [Moles/Vol] 30 mmol/L Normal 21 - 32 [facility] [place] [facility] Comment on above: Performed By: #### B MP #### [address] [place] [address] Potassium [Moles/Vol] 4.0 mmol/L Normal 3.5 - 5.3 [facility] [place] [facility] Comment on above: Performed By: #### B MP #### [address] [place] [address] Sodium [Moles/Vol] 139 mmol/L Normal 136 - 145 [facility] Comment on above: Performed By: #### B MP #### [address] [place] [address] Urea nitrogen [Mass/Vol] 13 mg/dL Normal 6 - 23 [facility] Comment on above: Performed By: #### B MP #### [address] [place] [address] CBCon 10-06-2022 Erythrocyte distribution width (RBC) [Ratio] 12.5 % Normal 11.5 - 14.5 [facility] Comment on above: Performed By: #### C BC #### [address] [place] [address] Hematocrit (Bld) [Volume fraction] 38.8 % Normal 36.0 - 46.0 [facility] Comment on above: Performed By: #### C BC #### [address] [address] Hemoglobin (Bld) [Mass/Vol] 12.9 g/dL Normal 12.0 - 16.0 [facility] Comment on above: Performed By: #### C BC #### [address] [place] [address] MCHC (RBC) [Mass/Vol] 33.2 g/dL Normal 32.0 - 36.0 [facility] Comment on above: Performed By: #### C BC #### [address] [place] [address] MCV (RBC) [Entitic vol] 88 fL Normal 80 - 100 [facility] Comment on above: Performed By: #### C BC #### [address] [place] [address] NUCLEATED RBC 0.0 /100 WBC Normal 0.0 - 0.0 [facility] Comment on above: Performed By: #### C BC #### [address] [place] [address] Platelets (Bld) [#/Vol] 233 10*3/uL Normal 150 - 450 [facility] Comment on above: Performed By: #### C BC #### [address] [place] [address] RBC 4.40 x10E12/L Normal 4.00 - 5.20 [facility] Comment on above: Performed By: #### C BC #### [address] [place] [address] WBC (Bld) [#/Vol] 6.6 10*3/uL Normal 4.4 - 11.3 [facility] Comment on above: Performed By: #### C BC #### [address] [address] HCG,URINEon 10-06-2022 Beta HCG ( test) Ql (U) Negative Normal Negative [facility] Comment on above: Performed By: #### H CGU #### [address] [place] [address] Order Reconciliationon 10-06 Order Reconciliation Page 1 Discharge Reconciliation Document Reconciliation Type: Discharge requested on behalf of Norma Cullen (Physician) done by Norma Cullen ( (Fellow)) Discharge - Reconciliation: 06-Oct-2022 07:15 by: Norma Cullen ( (Fellow)) Discharge - Reset to Incomplete: 06-Oct-2022 08:39 by: Norma Cullen ( (Fellow)) Discharge - Reconciliation: 06-Oct-2022 08:40 by: Norma Cullen ( (Fellow)) Home Medications EnteredHOME MEDICATIONS [...] be shared with your follow-up providers (doctor, ocean transportation intermediary, physical therapist, etc.). Follow Up with Dr Lopes's office in 2-4 Weeks Macrobid 100 mg oral capsule 1 cap(s) orally 2 times a day May not drive or operate motor vehicles for 24 hours. May shower Post Proced (more content not included)... Normal [facility] Patient Profile - Preop v3on 10-06-2022 Patient Profile - Preop v3 Patient Profile - Preop: Initial Info: Patient DemographicsName: KARLENE TOM Date: 1980 Address: [address] [place] [address] Date/Time [id number] 06:29 Primary Phone [phone] How to be Addressedkathryn Spoken Language PreferredEnglish Source of Informationpatient Stated Reason for Admissioncysto with botox Primary Contact Name and NumberAlbert [phone] Medications Brought to Hospitalno General Health: Weight in kg125 kilogram(s) Weight in sse810.5 pound(s) Weight Methodstated Height in feet5 feet [...] Living Arrangementshouse Resource/Environmenta l Concernsnone Anticipated [facility] Anticipated at Transitionnone Tobacco Use: Tobacco Useyes Tobacco Typecigarettes Last Tobacco [id number] Number of Packs per Day1 Additional Information: Information Review: Allergies, Home Meds and Significant Events have been Reviewed and Verified with Patient/Familyyes Allergy, Intolerance, Adverse Event: Allergies: Silvadene: Drug, Other, Active Latex: Latex, Anaphylaxis, Active Electronic Signatures: Lennox Boykin (INEZ) (Signed 06-Oct-2022 07:04) Authored: Initial Info, General Health, Health Mgmt, Relationship/Environ, Tobacco Use, Additional Information Last Updated: 06-Oct-2022 07:04 by Lennox Boykin (INEZ) References: 1. Data Referenced From History and Physical - Surgery > 30 days 06-Oct-2022 05:[address] [facility] [place] LSPINE W CONon 08-26-2022 CT LSPINE [...] DESIRAE KATZ Date: 2022-08-26 00:33 Normal [facility] ER URINE PROFILEon 2 Bilirubin Ql (U) Negative Normal NEGATIVE [facility] Comment on above: Performed By: #### U MICRO, ERUR #### [facility] [address] [place] [address] Dr. Mirtha Jimenez Clarity (U) CLEAR Normal CLEAR [facility] Comment on above: Performed By: #### U MICRO, ERUR #### [facility] [address] [address] [address] Mirtha Jimenez Color (U) LT. YELLOW Normal YELLOW [facility] Comment on above: Performed By: #### U MICRO, ERUR #### [facility] [address] [place] [address] Dr. Mirtha LUNA A micrscopic examination will be performed if indicated. Normal [facility] Comment on above: Performed By: #### U MICRO, ERUR #### [facility] [address] [address] [address] Mirtha Jimenez Glucose Ql (U) Negative Normal NEGATIVE [facility] Comment on above: Performed By: #### U MICRO, ERUR #### [facility] [address] [place] [address] Dr. Mirtha Jimenez Hemoglobin Ql (U) TRACE-INTACT Abnormal NEGATIVE [facility] Comment on above: Performed By: #### U MICRO, ERUR #### [facility] [address] [address] [address] Mirtha Jimenez Ketones Ql (U) Negative Normal NEGATIVE [facility] Comment on above: Performed By: #### U MICRO, ERUR #### [facility] [address] [place] [address] Dr. Mirtha Jimenez LEUKOCYTES Negative Normal NEGATIVE [facility] Comment on above: Performed By: #### U MICRO, ERUR #### [facility] [address] [place] [address] Dr. Mirtha Jimenez Nitrite Ql (U) Negative Normal NEGATIVE [facility] Comment on above: Performed By: #### U MICRO, ERUR #### [facility] [address] [address] [address] Mirtha Jimenez pH (U) 7.0 [pH] Normal 5-9 [facility] Comment on above: Performed By: #### U MICRO, ERUR #### [facility] [address] [place] [address] Dr. Mirtha Jimenez SPEC GRAVITY 1.020 Normal 1.005-<=1.02 5 [facility] Comment on above: Performed By: #### U MICRO, ERUR #### [facility] [address] [place] [address] Dr. Mirtha Jimenez UA PROTEIN Negative Normal NEGATIVE/ TRACE [facility] Comment on above: Performed By: #### U MICRO, ERUR #### [facility] [address] [place] [address] Dr. Mirtha Jimenez UR MICRO IND INDICATED Normal [facility] Comment on above: Performed By: #### U MICRO, ERUR #### [facility] [address] [place] [address] Dr. Mirtha Jimenez Urobilinogen Qn (U) 0.2 {John'U}/dL Normal 0.2 - 1. 0 [facility] Comment on above: Performed By: #### U MICRO, ERUR #### [facility] [address] [place] [address] Dr. Mirtha Jimenez LACTATE/LACTIC ACIDon 2021 Lactate [Moles/Vol] 0.9 mmol/L Normal 0.4-1.9 [facility] Comment on above: Performed By: #### L ACT #### [facility] [address] [place] [address] Dr. Mirtha Jimenez URINE MICROSCOPIC ONLYon BACTERIA TRACE Abnormal NONE SEEN [facility] Comment on above: Performed By: #### D DIM #### [facility] [address] [place] [address] Dr. Mirtha Jimenez Bacteria identified Cx Nom (U) NOT INDICATED Normal [facility] Comment on above: Performed By: #### D DIM #### [facility] [address] [place] [address] Dr. Mirtha Jimenez CAST NONE SEEN Normal NONE SEEN [facility] Comment on above: Performed By: #### D DIM #### [facility] [address] [place] [address] Dr. Mirtha Jimenez Crystals LM Nom (Urine sed) NONE SEEN Normal NONE SEEN [facility] Comment on above: Performed By: #### D DIM #### [facility] [address] [place] [address] Dr. Mirtha Jimenez Epithelial cells LM Ql (Urine sed) FEW Abnormal NONE SEEN /RARE [facility] Comment on above: Performed By: #### D DIM #### [facility] [address] [place] [address] Dr. Mitrha Jimenez MUCOUS NONE SEEN Normal NONE SEEN [facility] Comment on above: Performed By: #### D DIM #### [facility] [address] [place] [address] Dr. Mirtha Jimenez RBC 2-5 Abnormal 0-2 [facility] Comment on above: Performed By: #### D DIM #### [facility] [address] [place] [address] Dr. Mirtha Jimenez WBC NONE SEEN Normal NONE SEEN [facility] Comment on above: Performed By: #### D DIM #### [facility] [address] [place] [address] Dr. Mirtha Jimenez BNPon 08-25-2022 Natriuretic peptide B (Bld) [Mass/Vol] 189.0 pg/mL Normal <=450.0 [facility] Comment on above: Performed By: #### C MP, HSTROPN, BNP #### [facility] [address] [place] [address] Dr. Mirtha Jimenez CBC AUTO DIFFon 08-25-2022 BASO # 0.0 103/ul Normal 0.0-0.1 [facility] Comment on above: Performed By: #### C BC #### [facility] [address] [place] [address] Dr. Mirtha Jimenez Basophils/100 WBC (Bld) 0.4 % Normal 0.2-2.0 [facility] Comment on above: Performed By: #### C BC #### [facility] [address] [place] [address] Dr. Mirtha Jimenez EO # 0.1 103/ul Normal 0.0-0.7 [facility] Comment on above: Performed By: #### C BC #### [facility] [address] [place] [address] Dr. Mirtha Jimenez Eosinophils/100 WBC (Bld) 1.4 % Normal 0.9-7.0 [facility] Comment on above: Performed By: #### C BC #### [facility] [address] [place] [address] Dr. Mirtha Jimenez Erythrocyte distribution width (RBC) [Ratio] 12.6 % Normal 11.0-15.0 [facility] Comment on above: Performed By: #### C BC #### [facility] [address] [place] [address] Dr. Mirtha Jimenez Hematocrit (Bld) [Volume fraction] 37.9 % Normal 36.0-48.0 [facility] Comment on above: Performed By: #### C BC #### [facility] [address] [place] [address] Dr. Mirtha Jimenez Hemoglobin (Bld) [Mass/Vol] 12.8 g/dL Normal 12.0-16.0 [facility] Comment on above: Performed By: #### C BC #### [facility] [address] [place] [address] Dr. Mirtha Jimenez IG # 0.07 10e3/ul Critically high 0.00-0.03 [facility] Comment on above: Performed By: #### C BC #### [facility] [address] [place] [address] Dr. Mirtha Jimenez IG % 1.0 % Critically high 0.0-0.5 [facility] Comment on above: Performed By: #### C BC #### [facility] [address] [place] [address] Dr. Mirtha Jimenez LYMPH # 0.4 103/ul Critically low 1.2-3.8 [facility] Comment on above: Performed By: #### C BC #### [facility] [address] [place] [address] Dr. Mirtha Jimenez Lymphocytes/100 WBC (Bld) 5.4 % Critically low 20.5-60.0 [facility] Comment on above: Performed By: #### C BC #### [facility] [address] [place] [address] Dr. Mirtha Jimenez MANUAL DIFF REQ NO Normal [facility] Comment on above: Performed By: #### C BC #### [facility] [address] [place] [address] Dr. Mirtha Jimenez MCH (RBC) [Entitic mass] 29.4 pg Normal 26.7-34.0 [facility] Comment on above: Performed By: #### C BC #### [facility] [address] [place] [address] Dr. Mirtha Jimenez MCHC (RBC) [Mass/Vol] 33.8 g/dL Normal 29.9-35.2 [facility] Comment on above: Performed By: #### C BC #### [facility] [address] [place] [address] Dr. Mirtha Jimenez MCV (RBC) [Entitic vol] 86.9 fL Normal 81.0-99.0 [facility] Comment on above: Performed By: #### C BC #### [facility] [address] [place] [address] Dr. Mirtha Jimenez MONO # 0.4 103/ul Normal 0.3-0.8 [facility] Comment on above: Performed By: #### C BC #### [facility] [address] [place] [address] Dr. Mirtha Jimenez Monocytes/100 WBC (Bld) 6.0 % Normal 1.7-12.0 [facility] Comment on above: Performed By: #### C BC #### [facility] [address] [place] [address] Dr. Mirtha Jimenez NEUT # 6.2 103/ul Normal 1.4-6.5 [facility] Comment on above: Performed By: #### C BC #### [facility] [address] [address] [address] Mirtha Jimenez Neutrophils/100 WBC (Bld) 85.8 % Critically high 43.0-75.0 [facility] Comment on above: Performed By: #### C BC #### [facility] [address] [place] [address] Dr. Mirtha Jimenez Platelet mean volume (Bld) [Entitic vol] 10.1 fL Normal 9.5-13.5 [facility] Comment on above: Performed By: #### C BC #### [facility] [address] [place] [address] Dr. Mirtha Jimenez PLT 190 103/ul Normal 150-450 [facility] Comment on above: Performed By: #### C BC #### [facility] [address] [place] [address] Dr. Mirtha Jimenez RBC 4.36 106/ul Normal 4.20-5.40 [facility] Comment on above: Performed By: #### C BC #### [facility] [address] [place] [address] Dr. Mirtha Jimenez WBC 7.2 103/ul Normal 4.0-11.0 [facility] Comment on above: Performed By: #### C BC #### [facility] [address] [place] [address] Dr. Mirtha Jimenez CULTURE BLOODon 08-25-2022 Microscopic examination of blood, culture Culture Observations: NO GROWTH AT 5 DAYS. Isolate 1 BC_BA_NA Normal [facility] Comment on above: Performed By: #### D DIM #### [facility] [address] [place] [address] Dr. Mirtha Jimenez Microscopic examination of blood, culture Culture Observations: NO GROWTH AT 5 DAYS. Normal [facility] Comment on above: Performed By: #### B LDCX1 #### [facility] [address] [place] [address] Dr. Mirtha Jimenez D-DIMERon 08-25-2022 D-DIMER 0.46 mg/L FEU Normal <=0.59 [facility] Comment on above: Performed By: #### D DIM #### [facility] [address] [place] [address] Dr. Mirtha Jimenez D-DIMER COMMENTS SEE BELOW Normal [facility] Comment on above: Result Comment: Incr [...] hospitalization. Performed By: #### D DIM #### [facility] [address] [place] [address] Dr. Mirtha Jimenez LACTATE/LACTIC ACIDon 2021 Lactate [Moles/Vol] 1.4 mmol/L Normal 0.4-1.9 [facility] Comment on above: Performed By: #### D DIM #### [facility] [address] [place] [address] Dr. Mirtha Jimenez PROF 14(COMP METB)on 022 Albumin [Mass/Vol] 3.3 g/dL Critically low 3.4-5.0 [facility] Comment on above: Performed By: #### C MP, HSTROPN, BNP #### [facility] [address] [place] [address] Dr. Mirtha Jimenez Albumin/Globulin [Mass ratio] 0.9 {ratio} Normal [facility] Comment on above: Performed By: #### C MP, HSTROPN, BNP #### [facility] [address] [place] [address] Dr. Mirtha Jimenez ALP [Catalytic activity/Vol] 75 U/L Normal 46-116 [facility] Comment on above: Performed By: #### C MP, HSTROPN, BNP #### [facility] [address] [place] [address] Dr. Mirtha Jimenez ALT [Catalytic activity/Vol] 20 U/L Normal 14-59 [facility] Comment on above: Performed By: #### C MP HSTROPN, BNP #### [facility] [address] [place] [address] Dr. Mirtha Jimenez Anion gap [Moles/Vol] 9.7 mmol/L Normal [facility] Comment on above: Performed By: #### C MP, HSTROPN, BNP #### [facility] [address] [place] [address] Dr. Mirtha Jimenez AST [Catalytic activity/Vol] 18 U/L Normal 15-37 [facility] Comment on above: Performed By: #### C MP HSTROPN, BNP #### [facility] [address] [place] [address] Dr. Mirtha Jimenez Bilirubin [Mass/Vol] 0.2 mg/dL Normal 0.2-1.0 [facility] Comment on above: Performed By: #### C MP, HSTROPN, BNP #### [facility] [address] [place] [address] Dr. Mirtha Jimenez Calcium [Mass/Vol] 8.6 mg/dL Normal 8.5-10.1 [facility] Comment on above: Performed By: #### C MP HSTROPN, BNP #### [facility] [address] [place] [address] Dr. Mirtha Jimenez Chloride [Moles/Vol] 101 mmol/L Normal 98-107 [facility] Comment on above: Performed By: #### C MP, HSTROPN, BNP #### [facility] [address] [place] [address] Dr. Mirtha Jimenez CO2 [Moles/Vol] 27.6 mmol/L Normal 21.0-32.0 [facility] Comment on above: Performed By: #### C MP, HSTROPN, BNP #### [facility] [address] [place] [address] Dr. Mirtha Jimenez Creatinine [Mass/Vol] 0.68 mg/dL Normal 0.55-1.02 [facility] Comment on above: Performed By: #### C MP, HSTROPN, BNP #### [facility] [address] [address] [address] Mirtha Jimenez EGFR-AF PUERTO RICAN >60 Normal >=60 [facility] Comment on above: Performed By: #### C MP, HSTROPN, BNP #### [facility] [address] [place] [address] Dr. Mirtha Jimenez EGFR-NON AF PUERTO RICAN >60 Normal >=60 [facility] Comment on above: Performed By: #### C MP, HSTROPN, BNP #### [facility] [address] [place] [address] Dr. Mirtha Jimenez Globulin (S) [Mass/Vol] 3.8 g/dL Normal [facility] Comment on above: Performed By: #### C MP, HSTROPN, BNP #### [facility] [address] [place] [address] Dr. Mirtha Jimenez Glucose [Mass/Vol] 82 mg/dL Normal 74-106 [facility] Comment on above: Performed By: #### C MP, HSTROPN, BNP #### [facility] [address] [place] [address] Dr. Mirtha Jimenez Potassium [Moles/Vol] 4.3 mmol/L Normal 3.5-5.1 [facility] Comment on above: Performed By: #### C MP, HSTROPN, BNP #### [facility] [address] [place] [address] Dr. Mirtha Jimenez Protein [Mass/Vol] 7.1 g/dL Normal 6.4-8.2 [facility] Comment on above: Performed By: #### C MP, HSTROPN, BNP #### [facility] [address] [place] [address] Dr. Mirtha Jimenez Sodium [Moles/Vol] 134 mmol/L Critically low 136-145 [facility] Comment on above: Performed By: #### C MP, HSTROPN, BNP #### [facility] [address] [place] [address] Dr. Mirtha Jimenez Urea nitrogen [Mass/Vol] 13.0 mg/dL Normal 7.0-18.0 [facility] Comment on above: Performed By: #### C MP HSTROPN, BNP #### [facility] [address] [place] [address] Dr. Mirtha Jimenez Urea nitrogen/Creatinine [Mass ratio] 19.1 mg/mg Normal [facility] Comment on above: Performed By: #### C MP, HSTROPN, BNP #### [facility] [address] [place] [address] Dr. Mirtha Jimenez RESPIRATORY PANEL PLUSon Adenovirus Not detected Normal NOT DETECTED [facility] Comment on above: Performed By: #### D DIM #### [facility] [address] [place] [address] Dr. Mirtha Yo. Parapertusis Not detected Normal NOT DETECTED [facility] Comment on above: Performed By: #### D DIM #### [facility] [address] [place] [address] Dr. Mirtha Yo. Pertussis Not detected Normal NOT DETECTED [facility] Comment on above: Performed By: #### D DIM #### [facility] [address] [place] [address] Dr. Mirtha Jimenez Chlamydia Pneumoniae Not detected Normal NOT DETECTED [facility] Comment on above: Performed By: #### D DIM #### [facility] [address] [place] [address] Dr. Mirtha Jimenez Coronavirus 229E Not detected Normal NOT DETECTED [facility] Comment on above: Performed By: #### D DIM #### [facility] [address] [place] [address] Dr. Mirtha Jimenez Coronavirus HKU1 Not detected Normal NOT DETECTED [facility] Comment on above: Performed By: #### D DIM #### [facility] [address] [place] [address] Dr. Mirtha Jimenez Coronavirus NL63 Not detected Normal NOT DETECTED [facility] Comment on above: Performed By: #### D DIM #### [facility] [address] [place] [address] Dr. Mirtha Jimenez Coronavirus OC43 Not detected Normal NOT DETECTED [facility] Comment on above: Performed By: #### D DIM #### [facility] [address] [address] [address] Mirtha Jimenez Influenza A H1 2009 Not detected Normal NOT DETECTED [facility] Comment on above: Performed By: #### D DIM #### [facility] [address] [address] [address] Mirtha Jimenez Influenza A H3 Not detected Normal NOT DETECTED [facility] Comment on above: Performed By: #### D DIM #### [facility] [address] [address] [address] Mirtha Jimenez Influenza B Not detected Normal NOT DETECTED [facility] Comment on above: Performed By: #### D DIM #### [facility] [address] [address] [address] Mirtha Jimenez Metapneumovirus Not detected Normal NOT DETECTED [facility] Comment on above: Performed By: #### D DIM #### [facility] [address] [place] [address] Dr. Mirtha Jimenez Mycoplas. Pneumoniae Not detected Normal NOT DETECTED [facility] Comment on above: Performed By: #### D DIM #### [facility] [address] [address] [address] Mirtha Jimenez Parainfluenza 1 Not detected Normal NOT DETECTED [facility] Comment on above: Performed By: #### D DIM #### [facility] [address] [address] [address] Mirtha Jimenez Parainfluenza 2 Not detected Normal NOT DETECTED [facility] Comment on above: Performed By: #### D DIM #### [facility] [address] [address] [address] Mirtha Jimenez Parainfluenza 3 Not detected Normal NOT DETECTED [facility] Comment on above: Performed By: #### D DIM #### [facility] [address] [address] [address] Mirtha Jimenez Parainfluenza 4 Not detected Normal NOT DETECTED [facility] Comment on above: Performed By: #### D DIM #### [facility] [address] [address] [address] Mirtha Jimenez Rhino/Enterovirus Not detected Normal NOT DETECTED [facility] Comment on above: Performed By: #### D DIM #### [facility] [address] [place] [address] Dr. Mirtha Jimenez RP2 Header 1 RESPIRATORY PANEL: VIRUSES Normal [facility] Comment on above: Performed By: #### D DIM #### [facility] [address] [place] [address] Dr. Mirtha Jimenez RP2 Header 2 RESPIRATORY PANEL: BACTERIA Normal [facility] Comment on above: Performed By: #### D DIM #### [facility] [address] [place] [address] Dr. Mirtha Jimenez RSV Not detected Normal NOT DETECTED [facility] Comment on above: Performed By: #### D DIM #### [facility] [address] [place] [address] Dr. Mirtha Jimenez SARS-CoV-2 (COVID-19) RNA KAREN+probe Ql (Unsp spec) Detected Critically abnormal NOT DETECTED [facility] Comment on above: Performed By: #### D DIM #### [facility] [address] [place] [address] Dr. Mirtha Jimenez TROPONIN, HIGH SENSITIVITYon 08-25-2022 HSTROP 5.7 pg/mL Normal 4.0-51.3 [facility] Comment on above: Result Comment: CUT- OFF POINTS HAVE BEEN ESTABLISHED BASED ON THE FOURTH UNIVERSAL DEFINITIONS OF MYOCARDIAL INFARCTION. THE UPPER REFERENCE LIMIT (URL) OF TROPONIN, DEFINED THE 99TH PERCENTILE OF cTnI DISTRIBUTION IN A REFERENCE POPULATION, HAS BEEN CONFIRMED THE DECISION THRESHOLD FOR [place] DIAGNOSIS. Performed By: #### C MP, HSTROPN, BNP #### [facility] [address] [place] [address] Dr. Mirtha Jimenez XR CHEST 1 Von [...] by: WAYNE ROBLES Date: 2022-08-25 21:00 Normal [facility] HCG ( test) IA.rapi d Ql (U)Ordered By: Simone Warren on 06-10-2022 HCG ( test) Ql (U) Negative [facility] COVID-19 SOFIAOrdered By: Annie Warren on 06-06-2022 SARS-CoV+SARS-CoV-2 (COVID-19) Ag IA.rapid Ql (Resp) Negative Negative [facility] Comment on above: This is a duplicate [employer] SARS Antigen (JIGNESH) result to be used for statistical tracking purpose only. No Panel InformationOrdered By: Simone Warren on 06-06-2022 SARS Antigen (LFIA) [facility] Urinalysis - AUTOMATEDon Appearance (U) clear [employer] Other Bilirubin Ql (U) Negative [employer] Other Color (U) rust-yellow [employer] Other Glucose Ql (U) Negative [employer] Other Hemoglobin Ql (U) [employer] Other Ketones Ql (U) Negative [employer] Other Leukocyte esterase Test strip Ql (U) [employer] Other Nitrite Ql (U) Positive [employer] Other pH (U) 6.0 [pH] [employer] Other Protein Ql (U) Negative [employer] Other Specific gravity (U) [Rel density] 1.030 [employer] Other Urobilinogen (U) [Mass/Vol] 0.2 mg/dL [employer] Other Urinalysis - AUTOMATED [facility] [employer] Other Urine Cultureon 09-05-2021 Urine Culture >100,000 [employer] Other Urine Culture <16 [employer] Other Urine Culture >16 [employer] Other Urine Culture <4 [employer] Other Urine Culture 4 [employer] Other Urine Culture <2 [employer] Other Urine Culture <1 [employer] Other Urine Culture <0.5 [employer] Other Urine Culture <32 [employer] Other Urine Culture <2/38 [employer] Other C REACTIVE PROTEINon 020 CRP [Mass/Vol] 6.9 mg/L Normal 0.0-7.0 [facility] Comment on above: Performed By: #### 6 1405 #### [facility] [address] CBC W/DIFFon 05-23-2020 ABS BASOPHILS 0.0 10*3/uL Normal 0.0-0.2 [facility] Comment on above: Performed By: #### 5 0103, [id number] #### [facility] [address] ABS IMM GRANS 0.1 10*3/uL Normal 0.0-0.2 [facility] Comment on above: Performed By: #### 5 0103, [id number] #### [facility] [address] ABS NEUTROPHILS 5.7 10*3/uL Normal 1.6-7.6 The [facility] Comment on above: Performed By: #### 5 102, 96053 #### [facility] [address] [place] [address], [facility] Basophils/100 WBC (Bld) 0.4 % Normal 0.0-1.0 [facility] Comment on above: Performed By: #### 5 102, 14124 #### [facility] [address] [place] [address], [facility] Eosinophils (Bld) [#/Vol] 0.1 10*3/uL Normal 0.0-0.5 [facility] Comment on above: Performed By: #### 5 102, [id number] #### [facility] [address] [place] [address], [facility] Eosinophils/100 WBC (Bld) 1.2 % Normal 0.0-6.0 [facility] Comment on above: Performed By: #### 5 102, 17098 #### [facility] [address] [facility] [address] Erythrocyte distribution width (RBC) [Ratio] 12.5 % Normal 11.5-15.0 [facility] Comment on above: Performed By: #### 5 102, [id number] #### [facility] [address] [address], [facility] Hematocrit (Bld) [Volume fraction] 43.2 % Normal 36.0-45.0 [facility] Comment on above: Performed By: #### 5 102, [id number] #### [facility] [address] [address], [facility] Hemoglobin (Bld) [Mass/Vol] 14.7 g/dL Normal 12.0-15.0 [facility] Comment on above: Performed By: #### 5 102, [id number] #### [facility] [address] [address], [facility] IMMATURE GRANS 0.7 % Normal 0.0-1.0 [facility] Comment on above: Performed By: #### 5 102, 07620 #### [facility] [address] [address], [facility] Lymphocytes (Bld) [#/Vol] 1.8 10*3/uL Normal 1.2-4.0 [facility] Comment on above: Performed By: #### 5 102, 64950 #### [facility] [address] [place] [address], [facility] Lymphocytes/100 WBC (Bld) 22.0 % Normal 20.0-45.0 [facility] Comment on above: Performed By: #### 5 102, 99102 #### [facility] [address] [facility] [place] [address], [facility] MCH (RBC) [Entitic mass] 29.5 pg Normal 27.0-33.0 [facility] Comment on above: Performed By: #### 5 102, 97145 #### [facility] [address] [facility]. [address] MCHC (RBC) [Mass/Vol] 34.0 g/dL Normal 32.0-35.0 [facility] Comment on above: Performed By: #### 5 102, 25365 #### [facility] [address] [facility] [place] [address], [facility] MCV (RBC) [Entitic vol] 86.6 fL Normal 82.0-98.0 [facility] Comment on above: Performed By: #### 5 102, [id number] #### [facility] [address] [place] [address], [facility] Monocytes (Bld) [#/Vol] 0.4 10*3/uL Normal 0.1-1.0 [facility] Comment on above: Performed By: #### 5 102, [id number] #### [facility] [address] [place] [id number], [facility] MONOS 5.3 % Normal 5.0-12.0 [facility] Comment on above: Performed By: #### 5 102, 10012 #### [facility] [address] [place] [address], [facility] Neutrophils/100 WBC (Bld) 70.4 % Normal 40.0-72.0 [facility] Comment on above: Performed By: #### 5 102, 87655 #### [facility] [address] [place] [id number], [facility] Nucleated RBC/100 WBC (Bld) [Ratio] 0 % Normal 0-0 [facility] Comment on above: Performed By: #### 5 102, [id number] #### [facility] [address] [place] [id number], [facility] PLAT CNT 273 10*3/uL Normal 150-400 [facility] Comment on above: Performed By: #### 5 [id number], [id number] #### [facility] [address] [place] [address], [facility] RBC (Bld) [#/Vol] 4.99 10*6/uL Normal 3.80-5.[address] [facility] Comment on above: Performed By: #### 5 102, [id number] #### [facility] [address] [place] [address], [place] WBC (Bld) [#/Vol] 8.12 10*3/uL Normal 4.00-10.[address] [facility] Comment on above: Performed By: #### 5 102, [id number] #### [facility] [address] [place] [id number], [facility] SEDIMENTATION RATEon 020 SED RATE 22 mm/hr High 0-20 The [facility] Comment on above: Performed By: #### 5 [id number], [id number] #### [facility] [address] Vital Signs Date Time Vital Sign Value Performing Clinician Facility 05-19-2024 13:33-0400 Diastolic blood pressure 89 mm[Hg] Rockham Tanja PA-C Work Phone: [facility] 05-19-2024 13:33-0400 Heart rate 81 /min Rockham Tanja PA-C Work Phone: [facility] 05-19-2024 13:33-0400 Respiratory rate 16 /min Rockham Tanja PA-C Work Phone: [facility] 05-19-2024 13:33-0400 SaO2% (BldA) [Mass fraction] 98 % Regina Tanja PA-C Work Phone: [facility] 05-19-2024 13:33-0400 Systolic blood pressure 108 mm[Hg] Rockham Tanja PA-C Work Phone: [facility] 04-08-2024 11:07-0400 Body height 170.2 cm Pacc 1 Other Phone: [facility] 04-08-2024 11:07-0400 Body mass index (BMI) [Ratio] 44.47 kg/m2 Pacc 1 Other Phone: [facility] 04-08-2024 11:07-0400 Body temperature 97.59 [degF] Pacc 1 Other Phone: [facility] 04-08-2024 11:07-0400 Body weight 128.8 kg Pacc 1 Other Phone: [facility] 04-08-2024 11:07-0400 Diastolic blood pressure 84 mm[Hg] Pacc 1 Other Phone: [facility] 04-08-2024 11:07-0400 Heart rate 69 /min Pacc 1 Other Phone: [facility] 04-08-2024 11:07-0400 Respiratory rate 18 /min Pacc 1 Other Phone: [facility] 04-08-2024 11:07-0400 SaO2% (BldA) [Mass fraction] 99 % Pacc 1 Other Phone: [facility] 04-08-2024 11:07-0400 Systolic blood pressure 128 mm[Hg] Pacc 1 Other Phone: [facility] 03-31-2024 15:15-0400 Body height 170.2 cm Jailene Dave MD Work Phone: [facility] 03-31-2024 15:15-0400 Body mass index (BMI) [Ratio] 44.39 kg/m2 Jailene Dave MD Work Phone: [facility] 03-31-2024 15:15-0400 Body temperature 98.1 [degF] Jailene Dave MD Work Phone: [facility] 03-31-2024 15:15-0400 Body weight 128.55 kg Jailene Dave MD Work Phone: [facility] 03-31-2024 15:15-0400 Diastolic blood pressure 80 mm[Hg] Jailene Dave MD Work Phone: [facility] 03-31-2024 15:15-0400 Heart rate 92 /min Jailene Dave MD Work Phone: [facility] 03-31-2024 15:15-0400 SaO2% (BldA) [Mass fraction] 97 % Jailene Dave MD Work Phone: [facility] 03-31-2024 15:15-0400 Systolic blood pressure 121 mm[Hg] Jailene Dave MD Work Phone: [facility] 03-25-2024 08:13-0400 Body height 170.2 cm Jailene Dave MD Work Phone: [facility] 03-25-2024 08:13-0400 Body mass index (BMI) [Ratio] 44.32 kg/m2 Jailene Dave MD Work Phone: [facility] 03-25-2024 08:13-0400 Body weight 128.37 kg Jailene Dave MD Work Phone: [facility] 03-25-2024 08:13-0400 Diastolic blood pressure 84 mm[Hg] Jailene Dave MD Work Phone: [facility] 03-25-2024 08:13-0400 Heart rate 74 /min Jailene Dave MD Work Phone: [facility] 03-25-2024 08:13-0400 Respiratory rate 20 /min Jailene Dave MD Work Phone: [facility] 03-25-2024 08:13-0400 SaO2% (BldA) [Mass fraction] 98 % Jailene Dave MD Work Phone: [facility] 03-25-2024 08:13-0400 Systolic blood pressure 126 mm[Hg] Jailene Dave MD Work Phone: [facility] 03-18-2024 13:35-0400 Diastolic blood pressure 68 mm[Hg] Infusion 5 Work Phone: [facility] 03-18-2024 13:35-0400 Heart rate 62 /min Infusion 5 Work Phone: [facility] 03-18-2024 13:35-0400 Respiratory rate 20 /min Infusion 5 Work Phone: [facility] 03-18-2024 13:35-0400 SaO2% (BldA) [Mass fraction] 95 % Infusion 5 Work Phone: [facility] 03-18-2024 13:35-0400 Systolic blood pressure 155 mm[Hg] Infusion 5 Work Phone: [facility] 03-17-2024 13:50-0400 Diastolic blood pressure 70 mm[Hg] Infusion 5 Work Phone: [facility] 03-17-2024 13:50-0400 Heart rate 68 /min Infusion 5 Work Phone: [facility] 03-17-2024 13:50-0400 Respiratory rate 14 /min Infusion 5 Work Phone: [facility] 03-17-2024 13:50-0400 SaO2% (BldA) [Mass fraction] 97 % Infusion 5 Work Phone: [facility] 03-17-2024 13:50-0400 Systolic blood pressure 138 mm[Hg] Infusion 5 Work Phone: [facility] 03-16-2024 13:45-0400 Diastolic blood pressure 60 mm[Hg] Infusion 5 Work Phone: [facility] 03-16-2024 13:45-0400 Heart rate 66 /min Infusion 5 Work Phone: [facility] 03-16-2024 13:45-0400 Respiratory rate 18 /min Infusion 5 Work Phone: [facility] 03-16-2024 13:45-0400 SaO2% (BldA) [Mass fraction] 98 % Infusion 5 Work Phone: [facility] 03-16-2024 13:45-0400 Systolic blood pressure 128 mm[Hg] Infusion 5 Work Phone: [facility] 03-15-2024 14:15-0400 Diastolic blood pressure 68 mm[Hg] Infusion 5 Work Phone: [facility] 03-15-2024 14:15-0400 Heart rate 77 /min Infusion 5 Work Phone: [facility] 03-15-2024 14:15-0400 Respiratory rate 18 /min Infusion 5 Work Phone: [facility] 03-15-2024 14:15-0400 SaO2% (BldA) [Mass fraction] 99 % Infusion 5 Work Phone: [facility] 03-15-2024 14:15-0400 Systolic blood pressure 144 mm[Hg] Infusion 5 Work Phone: [facility] 03-14-2024 13:50-0400 Diastolic blood pressure 64 mm[Hg] Infusion 5 Work Phone: [facility] 03-14-2024 13:50-0400 Heart rate 65 /min Infusion 5 Work Phone: [facility] 03-14-2024 13:50-0400 Respiratory rate 15 /min Infusion 5 Work Phone: [facility] 03-14-2024 13:50-0400 SaO2% (BldA) [Mass fraction] 96 % Infusion 5 Work Phone: [facility] 03-14-2024 13:50-0400 Systolic blood pressure 141 mm[Hg] Infusion 5 Work Phone: [facility] 03-03-2024 12:42-0400 Body height 153.9 cm Rockham Tanja PA-C Work Phone: [facility] 03-03-2024 12:42-0400 Body mass index (BMI) [Ratio] 54.18 kg/m2 Regina Tanja PA-C Work Phone: [facility] 03-03-2024 12:42-0400 Body weight 128.37 kg Rockham Tanja PA-C Work Phone: [facility] 03-03-2024 12:42-0400 Diastolic blood pressure 83 mm[Hg] Rockham Tanja PA-C Work Phone: [facility] 03-03-2024 12:42-0400 Heart rate 80 /min Regina Tanja PA-C Work Phone: [facility] 03-03-2024 12:42-0400 SaO2% (BldA) [Mass fraction] 99 % Rockham Tanja PA-C Work Phone: [facility] 03-03-2024 12:42-0400 Systolic blood pressure 147 mm[Hg] Rockham Tanja PA-C Work Phone: [facility] 02-22-2024 14:03-0400 Body height 169.4 cm Aidan Forrester MD Work Phone: [facility] 02-22-2024 14:03-0400 Body mass index (BMI) [Ratio] 44.85 kg/m2 Aidan Forrester MD Work Phone: [facility] 02-22-2024 14:03-0400 Body temperature 98.1 [degF] Aidan Forrester MD Work Phone: [facility] 02-22-2024 14:03-0400 Body weight 128.7 kg Aidan Forrester MD Work Phone: [facility] 02-22-2024 14:03-0400 Diastolic blood pressure 80 mm[Hg] Aidan Forrester MD Work Phone: [facility] 02-22-2024 14:03-0400 Heart rate 75 /min Aidan Forrester MD Work Phone: [facility] 02-22-2024 14:03-0400 SaO2% (BldA) [Mass fraction] 97 % Aidan Forrester MD Work Phone: [facility] 02-22-2024 14:03-0400 Systolic blood pressure 128 mm[Hg] Aidan Forrester MD Work Phone: [facility] 02-08-2024 10:03-0400 Body temperature 97.5 [degF] Brittany Rodríguez ANGIO TECHNOLOGIST-FILTER ASSEMBLER Work Phone: [facility] [place] [facility] 02-08-2024 10:03-0400 Diastolic blood pressure 88 mm[Hg] Brittany Rodríguez APRN-FILTER ASSEMBLER Work Phone: [facility] [place] [facility] 02-08-2024 10:03-0400 Heart rate 70 /min Brittany Rodríguez ANGIO TECHNOLOGIST-FILTER ASSEMBLER Work Phone: [facility] [place] [facility] 02-08-2024 10:03-0400 Systolic blood pressure 136 mm[Hg] Brittany Rodríguez ANGIO TECHNOLOGIST-FILTER ASSEMBLER Work Phone: [facility] [place] [facility] 01-25-2024 14:18-0400 Body mass index (BMI) [Ratio] 44.88 kg/m2 Aidan Forrester MD Work Phone: [facility] 01-25-2024 14:18-0400 Body temperature 98.2 [degF] Aidan Forrester MD Work Phone: [facility] 01-25-2024 14:18-0400 Body weight 128.8 kg Aidan Forrester MD Work Phone: [facility] 01-25-2024 14:18-0400 Diastolic blood pressure 74 mm[Hg] Aidan Forrester MD Work Phone: [facility] 01-25-2024 14:18-0400 Heart rate 85 /min Aidan Forrester MD Work Phone: [facility] 01-25-2024 14:18-0400 SaO2% (BldA) [Mass fraction] 97 % Aidan Forrester MD Work Phone: [facility] 01-25-2024 14:18-0400 Systolic blood pressure 110 mm[Hg] Aidan Forrester MD Work Phone: [facility] 01-19-2024 13:03-0400 Body height 169.4 cm Vance Daley PA-C Work Phone: [facility] 01-19-2024 13:03-0400 Body mass index (BMI) [Ratio] 45.34 kg/m2 Vance Daley PA-C Work Phone: [facility] 01-19-2024 13:03-0400 Body temperature 98.4 [degF] Vance Daley PA-C Work Phone: [facility] 01-19-2024 13:03-0400 Body weight 130.1 kg Vance Jakubek PA-C Work Phone: [facility] 01-19-2024 13:03-0400 Diastolic blood pressure 61 mm[Hg] Vance Daley PA-C Work Phone: [facility] 01-19-2024 13:03-0400 Heart rate 88 /min Vance Daley PA-C Work Phone: [facility] 01-19-2024 13:03-0400 Respiratory rate 18 /min Vanec Daley PA-C Work Phone: [facility] 01-19-2024 13:03-0400 SaO2% (BldA) [Mass fraction] 97 % Vance Daley PA-C Work Phone: [facility] 01-19-2024 13:03-0400 Systolic blood pressure 130 mm[Hg] Vance Dalye PA-C Work Phone: [facility] 01-18-2024 12:10-0400 Body temperature 97.5 [degF] Dominick Lopes MD Work Phone: [facility] [place] [facility] 01-18-2024 12:10-0400 Diastolic blood pressure 64 mm[Hg] Dominick Lopes MD Work Phone: [facility] [place] [facility] 01-18-2024 12:10-0400 Heart rate 82 /min Dominick Lopes MD Work Phone: [facility] [place] [facility] 01-18-2024 12:10-0400 Respiratory rate 16 /min Dominick Lopes MD Work Phone: [facility] [place] [facility] 01-18-2024 12:10-0400 SaO2% (BldA) [Mass fraction] 97 % Dominick Lopes MD Work Phone: [facility] [place] [facility] 01-18-2024 12:10-0400 Systolic blood pressure 140 mm[Hg] Dominick Lopes MD Work Phone: [facility] [place] [facility] 01-18-2024 10:04-0400 Body height 170.2 cm Dominick Lopes MD Work Phone: [facility] [place] [facility] 01-18-2024 10:04040 Body mass index (BMI) [Ratio] 43.85 kg/m2 Dominick Lopes MD Work Phone: [facility] [place] [facility] 01-18-2024 10:04040 Body weight 127.01 kg Dominick Lopes MD Work Phone: [facility] [place] [facility] 01-06-2024 11:11-0400 Body height 170.2 cm Tracie Williamson ANGIO TECHNOLOGIST.FILTER ASSEMBLER Work Phone: [facility] 01-06-2024 11:11-0400 Body temperature 97.81 [degF] Tracieave Williamson ANGIO TECHNOLOGIST.FILTER ASSEMBLER Work Phone: [facility] 01-06-2024 11:11-0400 Body weight 125.1 kg Tracie Williamson ANGIO TECHNOLOGIST.FILTER ASSEMBLER Work Phone: [facility] 01-06-2024 11:11-0400 Diastolic blood pressure 78 mm[Hg] Tracie Williamson ANGIO TECHNOLOGIST.FILTER ASSEMBLER Work Phone: [facility] 01-06-2024 11:11-0400 Heart rate 85 /min Tracie Williamson ANGIO TECHNOLOGIST.FILTER ASSEMBLER Work Phone: [facility] 01-06-2024 11:11-0400 SaO2% (BldA) [Mass fraction] 98 % Tracie Williamson ANGIO TECHNOLOGIST.FILTER ASSEMBLER Work Phone: [facility] 01-06-2024 11:11-0400 Systolic blood pressure 114 mm[Hg] Tracie Williamson ANGIO TECHNOLOGIST.FILTER ASSEMBLER Work Phone: [facility] 12-07-2023 14:48-0400 Body weight 129 kg Norma Lyman ANGIO TECHNOLOGIST.FILTER ASSEMBLER Work Phone: [facility] 05-18-2023 21:16-0400 Diastolic blood pressure 60 mm[Hg] SOLAR SALES REPRESENTATIVE-BC Shon Shammo Work Phone: [facility] 05-18-2023 21:16-0400 Heart rate 70 /min SOLAR SALES REPRESENTATIVE-BC Shon Shammo Work Phone: [facility] 05-18-2023 21:16-0400 Respiratory rate 18 /min SOLAR SALES REPRESENTATIVE-BC Shon Shammo Work Phone: [facility] 05-18-2023 21:16-0400 SaO2% (BldA) [Mass fraction] 100 % SOLAR SALES REPRESENTATIVE-BC Shon Shammo Work Phone: [facility] 05-18-2023 21:16-0400 Systolic blood pressure 112 mm[Hg] SOLAR SALES REPRESENTATIVE-BC Shon Shammo Work Phone: [facility] 05-18-2023 17:39-0400 Body height 170.18 cm SOLAR SALES REPRESENTATIVE-BC Shon Shammo Work Phone: [facility] 05-18-2023 17:39-0400 Body temperature 98.9 [degF] SOLAR SALES REPRESENTATIVE-BC Shon Shammo Work Phone: [facility] 05-18-2023 17:39-0400 Body weight 126.4 kg SOLAR SALES REPRESENTATIVE-BC Shon Shammo Work Phone: [facility] 06-10-2022 08:52-0400 Diastolic blood pressure 67 mm[Hg] MD Liya Peña Work Phone: [facility] 06-10-2022 08:52-0400 Heart rate 60 /min MD Liya Peña Work Phone: [facility] 06-10-2022 08:52-0400 Respiratory rate 18 /min MD Liya Peña Work Phone: [facility] 06-10-2022 08:52-0400 SaO2% (BldA) [Mass fraction] 100 % MD Liya Peña Work Phone: [facility] 06-10-2022 08:52-0400 Systolic blood pressure 107 mm[Hg] MD Liya Peña Work Phone: [facility] 06-10-2022 07:34-0400 Body height 172.72 cm MD Liya Peña Work Phone: [facility] 06-10-2022 07:34-0400 Body temperature 98.6 [degF] MD Liya Peña Work Phone: [facility] 06-10-2022 07:34-0400 Body weight 120.2 kg MD Liya Peña Work Phone: [facility] 09-05-2021 10:50-0500 Body height 172.72 cm Astrid Myers Other [employer] Other 09-05-2021 10:50-0500 Body mass index (BMI) [Ratio] 39.38 kg/m2 Astrid Myers Other [employer] Other 09-05-2021 10:50-0500 Body temperature 97.7 [degF] Astrid Myers Other [employer] Other 09-05-2021 10:50-0500 Body weight 117.48 kg Astrid Myers Other [employer] Other 09-05-2021 10:50-0500 Diastolic blood pressure 69 mm[Hg] Astrid Myers Other [employer] Other 09-05-2021 10:50-0500 Respiratory rate 18 /min Astrid Myers Other [employer] Other 09-05-2021 10:50-0500 SaO2% (BldA) [Mass fraction] 100 % Astrid Myers Other [employer] Other 09-05-2021 10:50-0500 Systolic blood pressure 143 mm[Hg] Astrid Myers Other [employer] Other Encounters Encounter Date Encounter Type Care Provider Facility Start: 06-09-2024 ambulatory [facility] Start: 05-25-2024 End: 05-25-2024 ambulatory AIDAN FORRESTER Facility:[facility] Start: 05-25-2024 End: 05-25-2024 Patient encounter procedure Elda Danielson MD Work Phone: Ophthalmology Comment on above: Monocular exotropia with other noncomitancies, left eye (Primary Dx); Hypotropia of left eye Start: 05-19-2024 End: 05-19-2024 ambulatory REGINA AGRAWAL Facility:[facility] Start: 05-19-2024 End: 05-19-2024 Patient encounter procedure Regina BROWNC Work Phone: Neurology Pain Comment on above: Chronic pain syndrom e (Primary Dx); Hx of spina bifida; Chronic bilateral low back pain with sciatica, sciatica laterality unspecified; Tethered cord (HCC); Hx of laminectomy; Anxiety and depression Start: 05-04-2024 End: 05-04-2024 ambulatory AIDAN FORRESTER Facility:[facility] Start: 05-04-2024 End: 05-04-2024 Patient encounter procedure Elda Danielson MD Work Phone: Ophthalmology Comment on above: Monocular exotropia with other noncomitancies, left eye (Primary Dx); Hypotropia of left eye Start: 05-01-2024 Refill Aidan Forrester MD Work Phone: Internal Medicine [place] Comment on above: Refill Request Start: 04-27-2024 Telephone encounter Elda yip MD Work Phone: Ophthalmology Comment on above: Medication Problem Start: 04-26-2024 End: 04-26-2024 ambulatory AIDAN FORRESTER Facility:[facility] Start: 04-25-2024 Telephone encounter Jayden ryder MD Work Phone: Otolaryngology Start: 04-15-2024 Social Work Manny Rowleytona [facility] Start: 04-14-2024 End: 04-14-2024 [facility] Haily Mayer Therapist Work Phone: Pain Recovery Comment on above: Adjustment disorder with mixed anxiety and depressed mood (Primary Dx); Hx of spina bifida; Chronic bilateral low back pain with sciatica, sciatica laterality unspecified; Chronic pain syndrome next steps, resource s Start: 04-08-2024 End: 04-08-2024 Admission to establishment [facility] [address] Other Phone: Pre Anesthesia Start: 04-08-2024 End: 04-08-2024 Patient encounter procedure Pacc [address] 1 Other Phone: Pre Anesthesia Comment on above: Pre-op evaluation (P rimary Dx); Spina bifida, unspecified hydrocephalus presence, unspecified spinal region (HCC); Tethered cord (HCC); Smoker; Neurogenic bladder; Multiple thyroid nodules; Morbid obesity with BMI of 40.0-44.9, adult (HCC); Chronic bilateral low back pain with right-sided sciatica Start: 04-08-2024 End: 04-08-2024 Preprocedural examination done [address]acc [address] Other Phone: [facility] Work Phone: Start: 04-08-2024 End: 04-08-2024 ambulatory AIDAN FORRESTER Facility:[facility] Start: 04-08-2024 Encounter for other preprocedural examination VANCE DALEY [facility] Start: 04-05-2024 End: 04-05-2024 ambulatory VANCE DALEY Facility:[facility] Start: 04-05-2024 End: 04-05-2024 Patient encounter procedure Jayden Buckley MD Work Phone: Otolaryngology Comment on above: Airway compromise (P rimary Dx); Multiple thyroid nodules Start: 04-05-2024 Telephone encounter Jailene Dave MD Work Phone: Endocrinology Comment on above: Results Start: 03-31-2024 End: 03-31-2024 ambulatory JAILENE DAVE Facility:[facility] Start: 03-31-2024 End: 03-31-2024 Patient encounter procedure Jailene Dave MD Work Phone: Endocrinology Comment on above: Thyroid nodule (Prim chrissy Dx) Start: 03-28-2024 Refill Aidan Forrester MD Work Phone: Internal Medicine [place] Comment on above: Refill Request Start: 03-25-2024 End: 03-25-2024 ambulatory JAILENE DAVE Facility:[facility] Start: 03-25-2024 End: 03-25-2024 Patient encounter procedure Jailene Dave MD Work Phone: Endocrinology Comment on above: Thyroid nodule Start: 03-18-2024 End: 03-18-2024 ambulatory Infusion Walker Chair 5 Work Phone: Neurology Comment on above: Chronic bilateral lo w back pain with sciatica, sciatica laterality unspecified (Primary Dx) Start: 03-17-2024 End: 03-17-2024 ambulatory Infusion Walker Chair 5 Work Phone: Neurology Comment on above: Chronic bilateral lo w back pain with sciatica, sciatica laterality unspecified (Primary Dx) Start: 03-16-2024 End: 03-16-2024 ambulatory Infusion Walker Chair 5 Work Phone: Neurology Comment on above: Chronic bilateral lo w back pain with sciatica, sciatica laterality unspecified (Primary Dx) Start: 03-15-2024 End: 03-15-2024 ambulatory Infusion Walker Chair 5 Work Phone: Neurology Comment on above: Chronic bilateral lo w back pain with sciatica, sciatica laterality unspecified (Primary Dx); Tethered cord (HCC); Hx of spina bifida; Chronic bilateral low back pain, unspecified whether sciatica present; Hx of laminectomy; H/O laminectomy; Chronic pain syndrome; Anxiety and depression Start: 03-14-2024 End: 03-14-2024 ambulatory Infusion Walker Chair 5 Work Phone: Neurology Comment on above: Chronic bilateral lo w back pain with sciatica, sciatica laterality unspecified (Primary Dx) Start: 03-11-2024 Orders Only Jeannie hardin MD Work Phone: Neurology Pain Start: 03-04-2024 End: 03-04-2024 ambulatory Vance Hernandez Thuy ACOSTA Work Phone: [facility] Comment on above: Tethered cord (HCC) (Primary Dx); Adhesive arachnoiditis Start: 03-04-2024 End: 03-04-2024 Telemedicine consultation with patient Vance Leesaadia ACOSTA Work Phone: [facility] Start: 03-03-2024 End: 03-03-2024 ambulatory REGINA AGRAWAL Facility:[facility] Start: 03-03-2024 End: 03-03-2024 Patient encounter procedure Regina KLINE-C Work Phone: Neurology Pain Comment on above: Chronic bilateral lo w back pain, unspecified whether sciatica present (Primary Dx); Tethered cord (HCC); Hx of spina bifida; Hx of laminectomy; H/O laminectomy; Chronic pain syndrome; Anxiety and depression Start: 02-22-2024 End: 02-22-2024 ambulatory AIDAN FORRESTER Facility:[facility] Start: 02-22-2024 End: 02-22-2024 Office outpatient visit 25 minutes Aidan Forrester MD Work Phone: Internal Medicine [place] Comment on above: Multiple thyroid nod ules (Primary Dx); Chronic bilateral low back pain, unspecified whether sciatica present; Heartburn; Nausea; Chronic daily headache Start: 02-13-2024 Telephone encounter Aidan Forrester MD Work Phone: Internal Medicine [place] Comment on above: Request Outside [facility] Records Start: 02-12-2024 Telephone encounter Aidan Forrester MD Work Phone: Internal Medicine [place] Comment on above: Results Start: 02-11-2024 Telephone encounter Vance toussaint PA-C Work Phone: [facility] Start: 02-08-2024 End: 02-08-2024 Subsequent hospital visit by physician [facility] 2 Work Phone: [facility] Radiology Ultrasound Comment on above: 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 Comment on above: Urge incontinence (P rimary Dx) Start: 02-03-2024 End: 02-03-2024 ambulatory AIDAN FORRESTER Facility:[facility] Start: 02-03-2024 End: 02-03-2024 Subsequent hospital visit by physician [facility] (I-Stat/3t) MRI [facility] Comment on above: Encounter for observ ation for other suspected diseases and conditions ruled out [Z03.89] Start: 01-28-2024 Telephone encounter Aidan Forrester MD Work Phone: Internal Medicine [place] Comment on above: Received Outside [facility] Records (Received outside medical records on providers desk for review. ) Start: 01-25-2024 End: 01-25-2024 ambulatory AIDAN FORRESTER Facility:[facility] Start: 01-25-2024 End: 01-25-2024 Office outpatient visit 25 minutes Aidan Forrester MD Work Phone: Internal Medicine [place] Comment on above: Chronic bilateral lo w back pain, unspecified whether sciatica present (Primary Dx); Morbid obesity with BMI of 40.0-44.9, adult (HCC); Neurogenic bladder; Spina bifida, unspecified hydrocephalus presence, unspecified spinal region (HCC); Tethered cord (HCC); Urinary frequency; Acute UTI Start: 01-19-2024 End: 01-19-2024 Patient encounter procedure Vance Daley PA-C Work Phone: [facility] [place] Comment on above: Tethered cord (HCC) (Primary Dx); Hx of spina bifida; Chronic bilateral low back pain, unspecified whether sciatica present; H/O laminectomy; Chronic pain syndrome; Encounter for observation for other suspected diseases and conditions ruled out; Abnormal findings on diagnostic imaging of other parts of musculoskeletal system; Pain in thoracic spine Start: 01-19-2024 End: 01-19-2024 ambulatory AIDAN FORRESTER Facility:[facility] Start: 01-19-2024 End: 01-19-2024 Subsequent hospital visit by physician Mohan [facility] Radiology Comment on above: Tethered cord (HCC) [Q06.8] Start: 01-18-2024 End: 01-18-2024 [facility] DOMINICK LOPES [facility] Start: 01-18-2024 End: 01-18-2024 Subsequent hospital visit by physician Dominick Lopes MD Work Phone: [facility] [place] Comment on above: Post-operative pain (Primary Dx); Urge incontinence Start: 01-14-2024 End: 01-14-2024 ambulatory AIDAN FORRESTER Facility:[facility] Start: 01-14-2024 End: 01-14-2024 Patient encounter procedure Elda Danielson MD Work Phone: Ophthalmology Comment on above: Monocular exotropia with other noncomitancies, left eye (Primary Dx); Hypotropia of left eye; Amblyopia, left eye Start: 01-06-2024 End: 01-06-2024 ambulatory DESHAWN SHARMA SR Facility:[facility] Start: 01-06-2024 End: 01-06-2024 Patient encounter procedure Tracie Williamson APRN.CNP Work Phone: Internal [facility] [place] Comment on above: Encounter to [facility] (Primary Dx); Tethered cord (HCC); Spina bifida, unspecified hydrocephalus presence, unspecified spinal region (HCC); Other chronic pain; Smoker; Mood disorder (HCC) Start: 12-08-2023 Telephone encounter Arpita Borges samanta VICKERS.FILTER ASSEMBLER Work Phone: [facility] Comment on above: Nurse Triage Call Start: 12-07-2023 End: 12-07-2023 ambulatory NORMA LYMAN Facility:[facility] Start: 12-07-2023 End: 12-07-2023 Patient encounter procedure Norma Lyman ANGIO TECHNOLOGIST.FILTER ASSEMBLER Work Phone: [facility] [place] Comment on above: Tethered cord (HCC) (Primary Dx); Hx of spina bifida; Chronic bilateral low back pain, unspecified whether sciatica present; H/O laminectomy; Chronic pain syndrome Start: 12-01-2023 End: 12-01-2023 ambulatory DESHAWN SHARMA SR Facility:[facility] Start: 12-01-2023 End: 12-01-2023 Patient encounter procedure Lnida Kendrick OD Work Phone: Ophthalmology Comment on above: Strabismic amblyopia of left eye (Primary Dx); Diplopia Start: 11-20-2023 End: 11-20-2023 ambulatory Yojana Vicente Facility:[facility] Start: 05-18-2023 End: 05-18-2023 Emergency department patient visit Shon Angel Facility:[facility] Start: 05-18-2023 End: 05-18-2023 Emergency department patient visit SOLAR SALES REPRESENTATIVE-BC Shon Momintamia Work Phone: [facility]-Emergency Room Work Phone: Start: 03-18-2023 End: 03-19-2023 ambulatory DOMINICK LOPES MD Facility:[id number] Start: 02-16-2023 End: 02-16-2023 ambulatory ELIUD LEIVA . Facility:[facility] Start: 10-06-2022 End: 10-06-[address] Deshawn Sharma Facility:[id number] Start: 08-25-2022 End: 08-26-[address] DENISSE STRONG . Facility:[facility] Start: 08-07-2022 End: 08-07-2022 ambulatory DO Deshawn Sharma Work Phone: [facility] Work Phone: Start: 08-07-2022 End: 08-07-2022 Discharged Recurring DO Deshawn Sharma Work Phone: [facility] [place] Start: 06-10-2022 End: 06-10-2022 Admission to same day surgery center MD Liya Peña Work Phone: [facility] Start: 06-06-2022 End: 06-06-2022 Patient encounter procedure MD Liya Peña Work Phone: [facility]-Pre-Surgical Testing Start: 05-29-2022 Registered Recurring MD Liya vanegas Work Phone: [facility]-Physical [facility] [place] Start: 09-05-2021 End: 09-05-2021 ambulatory Astrid Myers Other [employer] Other Start: 09-05-2021 Office outpatient vi sit 15 minutes Astrid Myers [facility] Procedures Date Procedure Procedure Detail Performing Clinician Start: 03-31-2024 End: 03-31-2024 Us soft tissue head & neck real time imge ratna Daev MD Work Phone: Start: 02-03-2024 Mri spinal canal cer vical w/o contrast matrl Vance Daley PA-C Work Phone: Start: 01-25-2024 Urnls dip stick/tabl et rgnt auto w/o microscopy Aidan Forerster MD Work Phone: Start: 01-25-2024 Urnls dip stick/tabl et reagent auto microscopy Aidan Forrester MD Work Phone: Start: 01-18-2024 DISCHARGE PATIENT ANNA LOPES Start: 01-18-2024 ADULT DISCHARGE DIET AD ONKAYLEE DAVESAVANAH Start: 01-18-2024 DISCHARGE ACTIVITY VACUUM DRIER OPERATOR IS MARIANNE Start: 01-18-2024 NOTIFY PROVIDER (DO NOT PROMPT FOR PARAMETERS) DOMINICK LOPES Start: 01-18-2024 HCG, URINE, QUALITATIVE DOMINICK LOPES Start: 01-18-2024 FULL CODE DOMINICK ALEXANDRA Start: 01-18-2024 PULSE OXIMETRY, SPOT AD KYMBERLY MARIANNE Start: 01-18-2024 PLACE IN OUTPATIENT/HOSPITAL AMBULATORY SURGERY DOMINICK LOPES Start: 01-18-2024 Urine test visual color cmprsn meths Dominikc Lopes MD Work Phone: Start: 01-18-2024 PULSE OXIMETRY, SPOT Ad kymberly Lopes MD Work Phone: Start: 05-18-2023 CT of head without contrast SOLAR SALES REPRESENTATIVE-BC Shon Angel Work Phone: Start: 06-10-2022 Diagnostic endoscopi c examination on colon MD Liya Peña Work Phone: Start: 09-05-2021 Piperacillin/tazobactam Astrid Myers Other SARS Antigen (LFIA) MD Liya Peña Work Phone: Plan of Treatment Date Care Activity Detail Author Start: 02-16-2033 DTaP/Tdap/Td Vaccine s (3 - Td or Tdap) DTaP/Tdap/Td Vaccines (3 - Td or Tdap) [facility] Start: 02-16-2033 Urine microalbumin profile DTaP,Tdap,Td Vaccine (3 - Td or Tdap) [facility] Start: 12-25-2029 Zoster Vaccines (1 o f 2) Zoster Vaccines (1 of 2) [facility] Start: 06-23-2028 Screening for malignant neoplasm of cervix [facility] Start: 06-23-2026 Screening for malignant neoplasm of cervix Cervical Cancer Screening [facility] Start: 02-21-2025 Hepatitis C screening Hepatitis C [facility] Comment on above: Postponed from 12/25 (Declined at this time) Start: 01-05-2025 Covid-19 Vaccine (1 - 2023-24 season) Covid-19 Vaccine ( - season) [facility] Comment on above: Postponed from 05/22 (Declined at this time) Start: 01-05-2025 Hepatitis B Vaccine (1 of 3 - 19+ 3-dose series) Hepatitis B Vaccine (1 of 3 - 19+ 3-dose series) [facility] Comment on above: Postponed from 12/25 (Declined at this time) Start: 01-05-2025 Pneumococcal vaccination Pneumococcal Vaccine (1 of 2 - PCV) [facility] Comment on above: Postponed from 12/25 (Declined at this time) Start: 07-27-2024 End: 07-27-2024 Patient encounter procedure 07/27/2024 11:00 AM EST Office Visit [facility] Ophthalmology [address] [facility] [address] [place] [address] Elda Danielson MD [address] [place] [address] 3 month post op Ophthalmology Comment on above: 3 month post op Start: 06-26-2024 Screening for malignant neoplasm of breast Mammogram Screening [facility] Start: 06-23-2024 End: 06-23-2024 Patient encounter procedure 06/23/2024 1:00 PM EDT Office Visit Internal Medicine [place] [address] [place] [address] Aidan Monteengro MD [address] [place] [address] Return in about 4 months (around 06/23/2024), or if symptoms worsen or fail to improve, for INPERSON, chornic pain. [facility] [place] Comment on above: Return in about 4 mo nths (around 06/23/2024), or if symptoms worsen or fail to improve, for INPERSON, chornic pain. Start: 05-25-2024 End: 05-25-2024 Patient encounter procedure 05/25/2024 11:00 AM EDT Office Visit [facility] Ophthalmology [address] [facility] [address] [place] [address] Elda Danielson MD [address] [place] [address] 1 month post op Ophthalmology Comment on above: 1 month post op Start: 05-22-2024 Covid-19 Vaccine ( season) Covid-19 Vaccine ( season) [facility] Start: 05-22-2024 Influenza vaccination [facility] Start: 05-19-2024 End: 05-19-2024 Patient encounter procedure 05/19/2024 2:00 PM EDT Office Visit Neurology Pain [address] [facility] [place] [address] Regina Agrawal PA-C [address] [place] [address] follow up Neurology Pain Comment on above: follow up Start: 05-04-2024 End: 05-04-2024 Patient encounter procedure 05/04/2024 10:30 AM EDT Office Visit [facility] Ophthalmology [address] [place] [address] Elda Danielson MD [address] [place] [address] 1 week post op Ophthalmology Comment on above: 1 week post op Start: 04-26-2024 End: 04-26-2024 Admission to same day surgery center 04/26/2024 2:45 PM EDT - 04/26/2024 4:28 PM EDT Surgery Admitting [address] [place] [address] Elda Danielson MD [address] [place] [address] REPAIR STRABISMUS 1 HORIZONTAL MUSCLE Admitting Comment on above: REPAIR STRABISMUS 1 HORIZONTAL MUSCLE Start: 04-26-2024 End: 04-26-2024 Strabismus recession/rescj 1 hrzntl musc REPAIR STRABISMUS 1 HORIZONTAL MUSCLE Monocular exotropia with other noncomitancies, left eye 04/26/2024 2:45 PM EDT [facility] Start: 04-26-2024 Subsequent hospital visit by physician 04/26/2024 2:45 PM EDT Hospital Encounter Admitting [address] [place] [address] Elda Danielson MD [address] [place] [address] Monocular exotropia with other noncomitancies, 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] Admitting Comment on above: Monocular exotropia with other noncomitancies, 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] Start: 04-26-2024 End: 04-26-2024 Admission to same day surgery center 04/26/2024 1:42 PM EDT - 04/26/2024 3:25 PM EDT Surgery Admitting [address] [place] [address] Elda Danielson MD [address] [place] [address] REPAIR STRABISMUS 1 HORIZONTAL MUSCLE Admitting Comment on above: REPAIR STRABISMUS 1 HORIZONTAL MUSCLE Start: 04-26-2024 End: 04-26-2024 Strabismus recession/rescj 1 hrzntl musc REPAIR STRABISMUS 1 HORIZONTAL MUSCLE Monocular exotropia with other noncomitancies, left eye 04/26/2024 1:42 PM EDT [facility] Start: 04-26-2024 Subsequent hospital visit by physician 04/26/2024 1:42 PM EDT Hospital Encounter Admitting [address] [place] [address] Elda Danielson MD [address] [facility] [place] [address] Monocular exotropia with other noncomitancies, 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] Admitting Comment on above: Monocular exotropia with other noncomitancies, 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] Start: 04-22-2024 End: 04-22-2024 Patient encounter procedure 04/22/2024 9:40 AM EDT Office Visit Endocrinology [address] [place] [address] Jailene Dave MD [address] [place] [address] 5wk follow up Endocrinology Comment on above: 5wk follow up Start: 04-20-2024 End: 04-20-2024 Patient encounter procedure 04/20/2024 4:00 PM EDT Appointment Radiology [address] [place] [address] ct neck soft tissue w ivcon Radiology Comment on above: ct neck soft tissue w ivcon Start: 04-15-2024 End: 04-15-2024 Patient encounter procedure 04/15/2024 3:30 PM EDT Office Visit Neurology Pain [address] [place] [address] Regina Agrawal PA-C [address] [place] [address] Ketamine follow up Neurology Pain Comment on above: Ketamine follow up Start: 04-14-2024 End: 04-14-2024 ambulatory 04/14/2024 2:00 PM EDT [facility] Pain Recovery [address] [place] [address] Haily Mayer, Therapist [address] [place] [address] Pain Pys Pain Recovery Comment on above: Pain Pys Start: 04-08-2024 End: 04-08-2024 Patient encounter procedure 04/08/2024 11:00 AM EDT PAT Pre Anesthesia [address] [place] [address] 1, [address] [place] [address] pre op Pre Anesthesia Comment on above: pre op Start: 04-05-2024 End: 04-05-2024 Patient encounter procedure 04/05/2024 3:15 PM EDT Office Visit Otolaryngology [address] [place] [address] [place] [address] [facility] [facility] [facility] [address] CONSULT TO ENT Otolaryngology Comment on above: CONSULT TO ENT Start: 03-31-2024 End: 03-31-2024 Patient encounter procedure 03/31/2024 3:00 PM EDT Office Visit Endocrinology [address] [place] [address] Jailene Dave MD [address] [place] [address] FNA thyroid nodules Endocrinology Comment on above: FNA thyroid nodules Start: 03-25-2024 End: 03-25-2024 Patient encounter procedure 03/25/2024 8:00 AM EDT Office Visit Endocrinology [address] [place], [place] [id number] Jailene Dave MD [address] [place] [address] Thyroid nodule [E04.1] Endocrinology Comment on above: Thyroid nodule [E04. 1] Start: 03-18-2024 End: 03-18-2024 ambulatory 03/18/2024 12:45 PM EDT Infusion Center Neurology [address] [place] [address] [employer] Neurology Comment on above: [employer] Start: 03-17-2024 End: 03-17-2024 ambulatory 03/17/2024 12:45 PM EDT Infusion Center Neurology [address] [place] [address] [employer] Neurology Comment on above: [employer] Start: 03-16-2024 End: 03-16-2024 ambulatory 03/16/2024 12:45 PM EDT Infusion Center Neurology [address] [place] [address] [employer] Neurology Comment on above: [employer] INF[employer] Start: 03-15-2024 End: 03-15-2024 ambulatory 03/15/2024 12:45 PM EDT Infusion Center Neurology [address] [place] [address] [employer] Neurology Comment on above: [employer] INF[employer] Start: 03-14-2024 End: 03-14-2024 ambulatory Endocrinology Comment on above: Thyroid Nodules [employer] Start: 03-04-2024 End: 03-04-2024 ambulatory 03/04/2024 10:15 AM EDT [facility] [place] [address] [place] [address] Vance Daley PA-C [address] [place] [address] f/up after imaging [facility] Comment on above: f/up after imaging Start: 03-03-2024 End: 03-03-2024 Patient encounter procedure 03/03/2024 1:00 PM EDT Office Visit Neurology Pain [address] [place] [address] Regina Agrawal PA-C [address] [place] [address] Tethered cord (HCC) [Q06.8] Neurology Pain Comment on above: Tethered cord (HCC) [Q06.8] Start: 02-22-2024 End: 02-22-2024 Patient encounter procedure 02/22/2024 2:20 PM EDT Office Visit Internal Medicine [place] [address] [place] [address] Aidan Montenegro MD [address] [place] [address] 4 week [facility] Medicine [place] Comment on above: 4 week Start: 02-22-2024 End: 05-23-2024 THYROID PEROXIDASE ANTIBODY [facility] Comment on above: Expected: 02/22/2024 , Expires: 05/23/2024 Start: 02-22-2024 End: 05-23-2024 Thyrotropin [Units/volume] in Serum or Plasma [facility] Work Phone: Comment on above: Expected: 02/22/2024 , Expires: 05/23/2024 Start: 02-22-2024 End: 05-23-2024 Thyroxine (T4) free [Mass/volume] in Serum or Plasma [facility] Comment on above: Expected: 02/22/2024 , Expires: 05/23/2024 Start: 02-08-2024 End: 02-08-2024 Patient encounter procedure 02/08/2024 9:40 AM EDT Office Visit [place] [id number] [facility] [address] [place] [address] Brittany Rodríguez, ANGIO TECHNOLOGIST-FILTER ASSEMBLER [address] [facility] [address] [place] [address] [facility] Start: 02-03-2024 End: 02-03-2024 Patient encounter procedure 02/03/2024 4:00 PM EDT Appointment [facility] [address] [place] [address] Pain in thoracic spine [M54.6] MRI [facility] Comment on above: Pain in thoracic spi ne [M54.6] Start: 01-25-2024 End: 01-25-2024 Patient encounter procedure 01/25/2024 2:20 PM EDT Office Visit Internal Medicine [place] [address] [place], [place] [id number] Aidan Montenegro MD [address] [place], [place] [id number] Return for follow up with Dr. boo for lab review from outside labs, weight gain, pain med refill. [facility] Medicine [place] Comment on above: Return for follow up with Dr. boo for lab review from outside labs, weight gain, pain med refill. Start: 01-19-2024 End: 01-19-2024 Patient encounter procedure 01/19/2024 1:00 PM EDT Office Visit [facility] [place] [address] [place] [address] Vance Daley PAIdalmisC [address] [place] [address] Tethered cord (HCC) [Q06.8] [facility] Comment on above: Tethered cord (HCC) [Q06.8] Start: 09-21-2023 Depression Assessment Depression Ass essment [facility] Start: 05-22-2023 Covid-19 Vaccine () Covid-19 Vaccine () [facility] Start: 05-22-2023 Influenza vaccination Influenza Vacc ine (#1) [facility] Start: 01-06-2023 DTaP/Tdap/Td Vaccine s (2 - Td or Tdap) DTaP/Tdap/Td Vaccines (2 - Td or Tdap) [facility] Start: 06-10-2022 [facility] Work Phone: Start: 05-11-2020 Screening for malignant neoplasm of cervix Pap Testing [facility] Start: 12-30-2019 Screening for malignant neoplasm of breast Mammogram Screening [facility] Start: 2019 Screening for malignant neoplasm of breast [facility] Start: 12-29-2009 Screening for malignant neoplasm of cervix HPV Testing [facility] Start: 12-25-2009 Screening for malignant neoplasm of cervix HPV Testing [facility] Start: 12-25-2000 Screening for malignant neoplasm of cervix [facility] Start: 12-29-1998 Hepatitis B Vaccine (1 of 3 - 19+ 3-dose series) Hepatitis B Vaccine (1 of 3 - 19+ 3-dose series) [facility] Start: 12-25-1998 Hepatitis B Vaccine (1 of 3 - 19+ 3-dose series) Hepatitis B Vaccine (1 of 3 - 19+ 3-dose series) [facility] Start: 12-25-1998 Hepatitis B Vaccines (1 of 3 - 19+ 3-dose series) Hepatitis B Vaccines (1 of 3 - 19+ 3-dose series) [facility] Start: 12-29-1997 Hepatitis C screening Hepatitis C Sc reegayathri [facility] Start: 12-25-1997 Anxiety Screening Anxiety Screening [facility] Start: 12-25-1997 Depression Screening Depression Scre ening [facility] Start: 12-25-1997 Diabetes mellitus screening Diabetes Screening [facility] Start: 12-25-1997 Hepatitis C screening Hepatitis C Sc arvind [facility] Start: 12-29-1985 Pneumococcal vaccination Pneumococcal Vaccine (1 of 2 - PCV) [facility] Start: 12-25-1985 Pneumococcal vaccination Pneumococcal Vaccine (1 of 2 - PCV) [facility] Start: 12-25-1985 Pneumococcal Vaccine : Pediatrics (0 to 5 Years) and At-Risk Patients (6 to 64 Years) (1 of 2 - PCV) Pneumococcal Vaccine: Pediatrics (0 to 5 Years) and At-Risk Patients (6 to 64 Years) (1 of 2 - PCV) [facility] Start: 12-25-1980 MMR Vaccines (1 of 1 - Standard series) MMR Vaccines (1 of 1 - Standard series) [facility] Start: 1979 HIV screening HIV Screening [facility] Start: 1979 Lipid panel Lipid Panel [facility] Start: 1979 Yearly Adult Physical Yearly Adult P hysical [facility] Bacteria identified in Urine by Culture URINE CULTURE Microbiology Routine Urinary frequency 01/25/2024 3:00 PM EDT [facility] Work Phone: End: 01-18-2024 Continuous Pulse oximetry, In Phase 1 Continuous Pulse oximetry, In Phase 1 Respiratory Care Routine Continuous until discontinued starting 01/18/2024 [facility] Service Area Work Phone: Comment on above: Continuous until dis continued starting 01/18/2024 End: 05-05-2025 CT Neck W contrast IV CT NECK SOFT TISSUE W IVCON Radiology Routine Multiple thyroid nodules 1 Occurrences starting 04/05/2024 until 05/05/2025 [facility] Work Phone: Comment on above: 1 Occurrences starti ng 04/05/2024 until 05/05/2025 CYTOLOGY NON-DIRECTOR OF DIGITAL MARKETING CYTOLOGY NON-GY N Lab Routine Thyroid nodule Ordered: 03/31/2024 [facility] Work Phone: Comment on above: Ordered: 03/31/2024 ENDO THYROID/LYMPH NODE FNA ENDO THYROID/LYMPH NODE FNA Procedures Routine Thyroid nodule Ordered: 03/25/2024 [facility] Work Phone: Comment on above: Ordered: 03/25/2024 ENDO THYROID/LYMPH NODE FNA ENDO THYROID/LYMPH NODE FNA Procedures Routine Thyroid nodule Ordered: 03/31/2024 [facility] Comment on above: Ordered: 03/31/2024 End: 02-17-2025 MR Cervical spine WO contrast MRI CERVICAL SPINE WO IVCON Radiology Routine Abnormal findings on diagnostic imaging of other parts of musculoskeletal system 1 Occurrences starting 01/19/2024 until 02/17/2025 [facility] Comment on above: 1 Occurrences starti ng 01/19/2024 until 02/17/2025 End: 02-17-2025 MR Lumbar spine WO contrast MRI LUMBAR SPINE WO IVCON Radiology Routine Encounter for observation for other suspected diseases and conditions ruled out 1 Occurrences starting 01/19/2024 until 02/17/2025 [facility] Work Phone: Comment on above: 1 Occurrences starti ng 01/19/2024 until 02/17/2025 End: 02-17-2025 MR Thoracic spine WO contrast MRI THORACIC SPINE WO IVCON Radiology Routine Pain in thoracic spine 1 Occurrences starting 01/19/2024 until 02/17/2025 [facility] Comment on above: 1 Occurrences starti ng 01/19/2024 until 02/17/2025 Patient Education [facility] Work Phone: Patient referral [facility] Work Phone: Strabismus recession/rescj 1 hrzntl musc REPAIR STRABISMUS 1 HORIZONTAL MUSCLE Monocular exotropia with other noncomitancies, left eye [facility] US Thyroid gland US THYROID/PARA THYROID Radiology Routine Nontoxic single thyroid nodule 02/08/2024 12:37 PM EDT [facility] Work Phone: End: 01-05-2025 XR Lumbar spine 3 Views XR LUMBAR GENERAL 3V AP/LAT/L5-S1 Radiology Routine Tethered cord (HCC) Hx of spina bifida Chronic bilateral low back pain, unspecified whether sciatica present H/O laminectomy Chronic pain syndrome 1 Occurrences starting 12/07/2023 until 01/05/2025 [facility] Work Phone: Comment on above: 1 Occurrences starti ng 12/07/2023 until 01/05/2025 XR Lumbar spine 3 Views XR LUMBAR GENERAL 3V AP/LAT/L5-S1 Radiology Routine Tethered cord (HCC) Hx of spina bifida Chronic bilateral low back pain, unspecified whether sciatica present H/O laminectomy Chronic pain syndrome 01/19/2024 11:01 AM EDT [facility] Work Phone: [facility] Immunizations Immunization Date Immunization Notes Care Provider Fa cili 02-16-2023 tetanus toxoid, redu thierry diphtheria toxoid, and acellular pertussis vaccine, adsorbed Aidan Forrester MD Work Phone: [facility] 01-06-2013 tetanus toxoid, redu thierry diphtheria toxoid, and acellular pertussis vaccine, adsorbed Linda Kendrick OD Work Phone: [facility] 09-30-2012 influenza virus vaccine, unspecified formulation iLnda Kendrick OD Work Phone: [facility] 04-27-2011 TD(adult) unspecifie d formulation Aidan Forrester MD Work Phone: [facility] Payers Date Payer Category Payer Self-pay [id number] 2022 Medicaid [facility] MEDIC AID [facility] MEDICAID [id number] 2022-Present [phone] [address] [place] [address] Medicaid [id number] 2008 Unknown 1979 Unknown [id number] 1979 Unknown [id number] 1979 Unknown [id number] 1979 Unknown [id number] 1979 Unknown [id number] 1979 Unknown [id number] 1979 Unknown [id number] 1959 Unknown [id number] 1959 Unknown [id number] Unknown [id number] Social History Date Type Detail Facility Unknown if ever smoked [employer] Other Start: 12-07-2018 End: 12-01-2023 Sex Assigned At [facility] Start: 06-10-2022 End: 06-10-2022 Tobacco smoking status UTIS Smoker (finding) [facility] Start: 1980 Sex Assigned At Female F [facility] Start: 05-18-2023 Tobacco smoking stat us [facility] Current some day smoker [facility] Start: 03-21-1995 End: 01-06-2024 Tobacco smoking status [facility] Smokes tobacco daily [facility] Start: 03-21-1995 End: 03-21-2015 History of tobacco use Cigarette Smoker [facility] Start: 05-26-2017 End: 12-01-2023 Cigarettes smoked current (pack per day) - Reported 1 [facility] Start: 05-26-2017 End: 01-06-2024 Tobacco use and exposure Smokeless tobacco non-user [facility] Start: 12-01-2023 End: 01-25-2024 Alcohol intake Current non-drinker of alcohol (finding) [facility] Adult Depression Screening Assessment 6 [facility] Start: 1980 End: 1980 Sex Assigned At Not on file [facility] Has the [employer], [employer], [employer], or water company threatened to shut off services in your home in past 12Mo Yes [facility] Are you now , , , , never or living with a partner? [facility] How often to you hav e a drink containing alcohol? Monthly or less [facility] How many standard drinks containing alcohol do you have on a typical day? 3 or 4 [facility] How often do you hav e 6 or more drinks on 1 occasion? Never [facility] How hard is it for y ou to pay for the very basics like food, housing, medical care, and heating Somewhat hard [facility] Do you feel stress - tense, restless, nervous, or anxious, or unable to sleep at night because your mind is troubled all the time - these days [OSQ] Very much [facility] (I/We) worried mary er (my/our) food would run out before (I/we) got money to buy more. Sometimes true [facility] The food that (I/we) bought just didn't last, and (I/we) didn't have money to get more. Never true [facility] In the past 12 month s, was there a time when you were not able to pay the mortgage or rent on time? No [facility] Start: 01-18-2024 End: 02-08-2024 Alcoholic beverage intake Ex-drinker (finding) [facility] Work Phone: Start: 01-08-2024 End: 02-08-2024 Exposure to SARS-CoV-2 (event) Not sure [facility] Work Phone: Start: 04-08-2024 End: 05-25-2024 Alcohol intake Current drinker of alcohol (finding) [facility] Start: 04-08-2024 Alcohol Comment occasional- 3x a yea r [facility] Goals Date Patient Goal Desired Activity /State Clinical Notes 10-25-2003 to 05-26-2024 Elda Danielson MD - 05/26/2024 3:17 PM Regina Ferrera PA-C - 05/19/2024 2:00 PM Elda Calderón MD - 05/04/2024 11:46 AM EDTTElva Smart - 04/27/2024 9:31 AM EDT Note Date & Type Note Facility 05-26-2024 Note HNO ID: [id number] Author: ELDA DANIELSON MD Service: ? Author Type: Physician Type: Progress Notes Filed: 05/26/2024 15:22 Note Text: ASSESSMENT/PLAN: 1. Monocular exotropia with other noncomitancies, left eye - ICD9: 378.14, ICD10: H50.142 (primary diagnosis) - s/p surgery around 30 years ago in [facility] with Dr. Vel Gómez (both eyes). Scars around lateral recti. - POM#1 s/p Bilateral medial rectus resection, 5.0 mm on 04/26/24 - improved horizontal alignment - no stereo - stable - struggling with photophobia, pain, irritation. Patient believes she is allergic to the sutures. She does have local injection and chemosis around 6-0 vicryl muscle sutures (conj sutures gone already). - start alaway twice daily in each eye for itching 2. Hypotropia of left eye - ICD9: 378.32, ICD10: H50.22 - small angle - no pattern - intermittent vertical/torsional diplopia - may need prisms but patient adamant that she never wants to wear glasses or prisms because they make her family's eyes worse. She would rather live with diplopia. 3. Amblyopia, left eye - vision 20/30 - stable Follow-up in: 2 months I have confirmed and edited as necessary the relevant HPI, ophthalmic history, ROS, and the neuro exam findings as obtained by others. I have seen and examined Karlene Tom. I have discussed the case and the management of this patient's care with the Resident/Fellow, if applicable. I also have reviewed and agree with the assessment and plan as stated above and agree with all of its relevant components. Elda Danielson MD May 26, 2024 3:17 PM [facility] 05-26-2024 History of Present illness Narrative ASSESSMENT/PLAN: 1. Monocular exotropia with other noncomitancies, left eye - ICD9: 378.14, ICD10: H50.142 (primary diagnosis) - s/p surgery around 30 years ago in [facility] with Dr. Vel Gómez (both eyes). Scars around lateral recti. - POM#1 s/p Bilateral medial rectus resection, 5.0 mm on 04/26/24 - improved horizontal alignment - no stereo - stable - struggling with photophobia, pain, irritation. Patient believes she is allergic to the sutures. She does have local injection and chemosis around 6-0 vicryl muscle sutures (conj sutures gone already). - start alaway twice daily in each eye for itching 2. Hypotropia of left eye - ICD9: 378.32, ICD10: H50.22 - small angle - no pattern - intermittent vertical/torsional diplopia - may need prisms but patient adamant that she never wants to wear glasses or prisms because they make her family's eyes worse. She would rather live with diplopia. 3. Amblyopia, left eye - vision 20/30 - stable Follow-up in: 2 months I have confirmed and edited as necessary the relevant HPI, ophthalmic history, ROS, and the neuro exam findings as obtained by others. I have seen and examined Karlene Tom. I have discussed the case and the management of this patient's care with the Resident/Fellow, if applicable. I also have reviewed and agree with the assessment and plan as stated above and agree with all of its relevant components. Elda Danielson MD May 26, 2024 3:17 PM documented in this encounter [facility] 05-19-2024 History of Present illness Narrative Images from the original note were not included. [facility] [place] May 19, 2024 SUBJECTIVE: Karlene Tom presents to for a follow-up appointment for ketamine infusions. The patient states the infusion provided 50-60% relief for her back. Still having pain in other parts of her body. Ketamine infusions 03/14/24 to 03/18/24 Taking lyrica, tramadol, cannabis prn, flexeril, motrin, topamax States that she was sick for a week after the ketamine infusions - nausea. States that the ketamine treatment has improved her back pain. till having left sided back pain and left posterior thigh and anterior cruz pain. States that she has noticed her leg pain more since the back pain has improved. She has been able to do more since the ketamine treatment States that the weather changes affects and worsens her pain. Reports that she will be having thyroid surgery coming up this fall. Average pain over the last 7 days: 7/10 Since the end of the infusion, my overall status is: 6-7 Very much worsened Much worsened Minimally worsened No change Minimally improved Much improved Very much improved Patient Entered Questionnaires 12/07/2023 03/03/2024 04/14/2024 PROMIS CAT Fatigue PROMIS Fatigue T-Score 74 (severe) 66 (moderate) 66 (moderate) PROMIS Fatigue Percentile 1 5 5 03/03/2024 04/14/2024 PROMIS CAT Pain Interference PROMIS Pain Interference T-Score (range: 10 - 90) 72 (severe) 70 (moderate) PROMIS Pain Interference Percentile 1 2 12/07/2023 03/03/2024 04/14/2024 PROMIS CAT Satisfaction with Social Roles PROMIS - Satisfaction with Participation in Social Roles T-Score 31 (Low) 35 (Low) 36 (Low) PROMIS Social Role Satisfaction Percentile 3 7 8 12/07/2023 PROMIS CAT Sleep Disturbance PROMIS Sleep Disturbance T-Score 67 (moderate) PROMIS Sleep Disturbance Percentile 4 03/03/2024 04/14/2024 PROMIS CAT Self-Efficacy Manage Symptoms PROMIS Self-Efficacy for Managing Symptoms T-Score 39 (Low) 41 (Average) PROMIS Self-Efficacy Manage Symptoms Percentile 14 18 04/21/2017 01/05/2024 04/05/2024 PROMIS Global Health Scale Physical Health Percentile 7 2 2 2 Mental Health Percentile 5 5 9 9 12/07/2018 01/05/2024 04/05/2024 PROMIS Global Health - (T-Scores - the mean of general population = 50. Five points is a clinically meaningful difference.) Physical T-Score 23.5 29.6 29.6 29.6 Mental T-Score 21.2 33.8 36.3 36.3 03/03/2024 04/14/2024 Pain Catastrophizing Scale (PCS) - Scores Rumination Subscore 12 16 16 Magnification Subscore 9 7 7 Helplessness Subscore 17 18 18 PCS Total Score 38 41 41 01/05/2024 03/03/2024 04/14/2024 CANDACE - 7 SCORES Score 9 10 11 11 01/05/2024 03/03/2024 04/14/2024 PHQ-9 PHQ-2 Score 4 4 5 3 PHQ-9 Score 14 (Moderate Depression) 18 (Moderately Severe Depression) 15 (Moderately Severe Depression) Multiple values from one day are sorted in reverse-chronological order ASSESSMENT: Chronic pain syndrome (primary encounter diagnosis) Hx of spina bifida Chronic bilateral low back pain with sciatica, sciatica laterality unspecified Tethered cord (hcc) Hx of laminectomy Anxiety and depression PLAN: 1) will repeat ketamine in 6 months - wants to wait until after her surgery. 2) continue with current prescribed medications - discussed limiting/stop use of tramadol and cannabis during the next ketamine treatment 3) Continue to optimize diet, activity, and sleep. 4) follow up 4 weeks after the next ketamine treatment I spent a total of 22 minutes on the date of the service which included preparing to see the patient, [id number] patient care, completing clinical documentation, obtaining and/or reviewing separately obtained history, performing a medically appropriate examination, counseling and educating the patient/family/caregiver, and ordering medications, tests, or procedures. Regina Agrawal PA-C Important Patient Information: 1. To schedule Pain Recovery appointments or post-injection office visits, please call: [phone] 2. The nursing staff and medical assistants are a part of your pain recovery team and will be handling your phone calls and inquiries. 3. Your study results and treatment plan will be discussed during a follow-up appointment. If you do not have a follow-up appointment and wish to discuss any issues directly with me, please call: [phone] to set-up an appointment. 4. MyChart is best used for refill requests or yes or no questions. Anything more complicated will likely require a follow-up appointment that you can schedule by [phone]. 5. It is the practice of the Department to not fill disability or any other insurance-related forms/documentation. All of the office notes, study results, and other documentation as part of your evaluation will be available to you and to your Primary Care Physician (PCP). Use of this material to complete such forms will be at the discretion of your PCP/referring physician. 6. If you are scheduled for a ketamine infusion, you will be contacted regarding specific scheduling instructions in the future by our department. There is no need to contact our department regarding the scheduling process or your estimated wait; you will be contacted once there is an opening. documented in this encounter [facility] 05-19-2024 Note HNO ID: [id number] Author: REGINA AGRAWAL PA-C Service: ? Author Type: Physician Drill Punch Operator Type: Progress Notes Filed: 05/19/2024 14:03 Note Text: [facility] [place] May 19, 2024 SUBJECTIVE: Karlene Tom presents to for a follow-up appointment for ketamine infusions. The patient states the infusion provided 50-60% relief for her back. Still having pain in other parts of her body. Ketamine infusions 03/14/24 to 03/18/24 Taking lyrica, tramadol, cannabis prn, flexeril, motrin, topamax States that she was sick for a week after the ketamine infusions - nausea. States that the ketamine treatment has improved her back pain. till having left sided back pain and left posterior thigh and anterior cruz pain. States that she has noticed her leg pain more since the back pain has improved. She has been able to do more since the ketamine treatment States that the weather changes affects and worsens her pain. Reports that she will be having thyroid surgery coming up this fall. Average pain over the last 7 days: 7/10 Since the end of the infusion, my overall status is: 6-7 Very much worsened Much worsened Minimally worsened No change Minimally improved Much improved Very much improved Patient Entered Questionnaires 12/07/2023 03/03/2024 04/14/2024 PROMIS CAT Fatigue PROMIS Fatigue T-Score 74 (severe) 66 (moderate) 66 (moderate) PROMIS Fatigue Percentile 1 5 5 03/03/2024 04/14/2024 PROMIS CAT Pain Interference PROMIS Pain Interference T-Score (range: 10 - 90) 72 (severe) 70 (moderate) PROMIS Pain Interference Percentile 1 2 12/07/2023 03/03/2024 04/14/2024 PROMIS CAT Satisfaction with Social Roles PROMIS - Satisfaction with Participation in Social Roles T-Score 31 (Low) 35 (Low) 36 (Low) PROMIS Social Role Satisfaction Percentile 3 7 8 12/07/2023 PROMIS CAT Sleep Disturbance PROMIS Sleep Disturbance T-Score 67 (moderate) PROMIS Sleep Disturbance Percentile 4 03/03/2024 04/14/2024 PROMIS CAT Self-Efficacy Manage Symptoms PROMIS Self-Efficacy for Managing Symptoms T-Score 39 (Low) 41 (Average) PROMIS Self-Efficacy Manage Symptoms Percentile 14 18 04/21/2017 01/05/2024 04/05/2024 PROMIS Global Health Scale Physical Health Percentile 7 2 2 2 Mental Health Percentile 5 5 9 9 12/07/2018 01/05/2024 04/05/2024 PROMIS Global Health - (T-Scores - the mean of general population = 50. Five points is a clinically meaningful difference.) Physical T-Score 23.5 29.6 29.6 29.6 Mental T-Score 21.2 33.8 36.3 36.3 03/03/2024 04/14/2024 Pain Catastrophizing Scale (PCS) - Scores Rumination Subscore 12 16 16 Magnification Subscore 9 7 7 Helplessness Subscore 17 18 18 PCS Total Score 38 41 41 01/05/2024 03/03/2024 04/14/2024 CANDACE - 7 SCORES Score 9 10 11 11 01/05/2024 03/03/2024 04/14/2024 PHQ-9 PHQ-2 Score 4 4 5 3 PHQ-9 Score 14 (Moderate Depression) 18 (Moderately Severe Depression) 15 (Moderately Severe Depression) Multiple values from one day are sorted in reverse-chronological order ASSESSMENT: Chronic pain syndrome (primary encounter diagnosis) Hx of spina bifida Chronic bilateral low back pain with sciatica, sciatica laterality unspecified Tethered cord (hcc) Hx of laminectomy Anxiety and depression PLAN: 1) will repeat ketamine in 6 months - wants to wait until after her surgery. 2) continue with current prescribed medications - discussed limiting/stop use of tramadol and cannabis during the next ketamine treatment 3) Continue to optimize diet, activity, and sleep. 4) follow up 4 weeks after the next ketamine treatment I spent a total of 22 minutes on the date of the service which included preparing to see the patient, [id number] patient care, completing clinical documentation, obtaining and/or reviewing separately obtained history, performing a medically appropriate examination, counseling and educating the patient/family/caregiver, and ordering medications, tests, or procedures. Regina Agrawal PA-C Important Patient Information: 1. To schedule Pain Recovery appointments or post-injection office visits, please call: [phone] 2. The nursing staff and medical assistants are a part of your pain recovery team and will be handling your phone calls and inquiries. 3. Your study results and treatment plan will be discussed during a follow-up appointment. If you do not have a follow-up appointment and wish to discuss any issues directly with me, please call: [phone] to set-up an appointment. 4. [employer] is best used for refill requests or yes or no questions. Anything more complicated will likely require a follow-up appointment that you can schedule by [phone]. 5. It is the practice of the Department to not fill disability or any other insurance-related forms/documentation. All of the office notes, study results, an (more content not included)... [facility] 05-04-2024 Note HNO ID: [id number] Author: ELDA DANIELSON MD Service: ? Author Type: Physician Type: Progress Notes Filed: 05/04/2024 11:47 Note Text: ASSESSMENT/PLAN: 1. Monocular exotropia with other noncomitancies, left eye - ICD9: 378.14, ICD10: H50.142 (primary diagnosis) - s/p surgery around 30 years ago in [facility] with Dr. Vel Gómez (both eyes). Scars around lateral recti. - POW#1 s/p Bilateral medial rectus resection, 5.0 mm on 04/26/24 - much improved alignment! - no stereo - stable - struggling with photophobia, pain, blurry vision - significant injection - will stop other drops/ointment - switch to pred forte 3 times per day in both eyes and lacrilube 3 times per day for 1 week 2. Hypotropia of left eye - ICD9: 378.32, ICD10: H50.22 - small angle - no pattern - rare vertical/torsional diplopia - may need prisms 3. Amblyopia, left eye - vision 20/30 Follow-up in: 3 weeks I have confirmed and edited as necessary the relevant HPI, ophthalmic history, ROS, and the neuro exam findings as obtained by others. I have seen and examined Karlene Tom. I have discussed the case and the management of this patient's care with the Resident/Fellow, if applicable. I also have reviewed and agree with the assessment and plan as stated above and agree with all of its relevant components. Elda Danielson MD May 04, 2024 11:46 AM [facility] 05-04-2024 History of Present illness Narrative ASSESSMENT/PLAN: 1. Monocular exotropia with other noncomitancies, left eye - ICD9: 378.14, ICD10: H50.142 (primary diagnosis) - s/p surgery around 30 years ago in [facility] with Dr. Vel Gómez (both eyes). Scars around lateral recti. - POW#1 s/p Bilateral medial rectus resection, 5.0 mm on 04/26/24 - much improved alignment! - no stereo - stable - struggling with photophobia, pain, blurry vision - significant injection - will stop other drops/ointment - switch to pred forte 3 times per day in both eyes and lacrilube 3 times per day for 1 week 2. Hypotropia of left eye - ICD9: 378.32, ICD10: H50.22 - small angle - no pattern - rare vertical/torsional diplopia - may need prisms 3. Amblyopia, left eye - vision 20/30 Follow-up in: 3 weeks I have confirmed and edited as necessary the relevant HPI, ophthalmic history, ROS, and the neuro exam findings as obtained by others. I have seen and examined Karlene Tom. I have discussed the case and the management of this patient's care with the Resident/Fellow, if applicable. I also have reviewed and agree with the assessment and plan as stated above and agree with all of its relevant components. Elda Danielson MD May 04, 2024 11:46 AM documented in this encounter [facility] 05-02-2024 Telephone encounter Note Request for controlled medication. PMDP checked. No signs of concerns. Refill sent. Lab Results Component Value Date UOPI Negative 06/11/2017 UOXYC Positive (A) 06/11/2017 UBENZ Positive (A) 06/11/2017 UCOC2 Negative 06/11/2017 UAMPH Negative 06/11/2017 UETOH <11 06/11/2017 ] [facility] 05-02-2024 Miscellaneous Notes Request for controlled medication. PMDP checked. No signs of concerns. Refill sent. Lab Results Component Value Date UOPI Negative 06/11/2017 UOXYC Positive (A) 06/11/2017 UBENZ Positive (A) 06/11/2017 UCOC2 Negative 06/11/2017 UAMPH Negative 06/11/2017 UETOH <11 06/11/2017 ] Patient phones requesting refills as follows: Last OV 02/22/24; next 06/23/24 Requested Prescriptions Pending Prescriptions Disp Refills traMADol (ULTRAM) 50 mg tablet 84 tablet 0 Sig: Take 1 tablet by mouth three times a day for 28 days. pregabalin (LYRICA) 75 mg capsule 84 capsule 0 Sig: Take 1 capsule by mouth three times a day for 28 days. Please review and advise. Stacy Westbrook MA documented in this encounter [facility] 05-02-2024 Telephone encounter Note Patient phones requesting refills as follows: Last OV 02/22/24; next 06/23/24 Requested Prescriptions Pending Prescriptions Disp Refills traMADol (ULTRAM) 50 mg tablet 84 tablet 0 Sig: Take 1 tablet by mouth three times a day for 28 days. pregabalin (LYRICA) 75 mg capsule 84 capsule 0 Sig: Take 1 capsule by mouth three times a day for 28 days. Please review and advise. Stacy Westbrook MA [facility] 04-27-2024 Telephone encounter Note AM spoke w/patient @ 9:31 & she stated that her pharmacy hasn't received her RX's for the Tobramycin & Erythromycin. Please send to [facility] in [facility] thanks PT [phone] [facility] 04-27-2024 Miscellaneous Notes AM spoke w/patient @ 9:31 & she stated that her pharmacy hasn't received her RX's for the Tobramycin & Erythromycin. Please send to [facility] in [facility] thanks PT [phone] documented in this encounter [facility] 04-26-2024 Note HNO ID: [id number] Author: KACY FULTON SRNA Service: ? Author Type: Student Type: Anesthesia Procedure Notes Filed: 04/26/2024 15:17 Note Text: ANESTHESIOLOGY PROCEDURE NOTE PIV General Information Procedure Start Time/Medication Administration: 04/26/2024 3:04 PM Procedure End Time: 04/26/2024 3:04 PM Patient Location: OR Staffing Anesthesiologist: Estrella Moon MD Performed by: anesthesiologist Preparation Sterility Preparation: hand hygiene performed prior to procedure, surgical cap used, mask used, skin prep agent completely dried prior to procedure Site Prep: alcohol Procedure Details Indication: need for IV access Needle Size/Type: 22 gauge angiocath Orientation: Left Location: Forearm Imaging Guidance Used: Yes Image in Chart: No SIGNATURE: KRISTAN Meng PATIENT NAME: Karlene Tom DATE: April 26, 2024 TIME: 3:17 PM CSN: [id number] [facility] 04-26-2024 Note HNO ID: [id number] Author: KACY FULTON SRNA Service: ? Author Type: Student Type: Anesthesia Procedure Notes Filed: 04/26/2024 15:17 Note Text: ANESTHESIOLOGY PROCEDURE NOTE Airway General Information Procedure Start Time/Medication Administration: 04/26/2024 3:11 PM Procedure End Time: 04/26/2024 3:11 PM Patient location during procedure: OR Staffing QUILL WORKER: Frannie Adler APRN.QUILL WORKER SRNA: Kacy Fulton SRNA Performed by: KRISTAN Indications and Patient Condition Indications for airway management: anesthesia Preoxygenated: yes anesthesia circuit Patient position: ramp Method: asleep Difficult Mask: No Airway Accessory: oral airway Final Airway Details Final airway type: endotracheal airway Final Endotracheal Airway: ETT Cuffed: yes Successful intubation technique: video laryngoscopy Devices used: Needly Endotracheal tube insertion site: oral Blade: Low Blade size: #4 ETT size (mm): 7.0 Measured from: lips Measurement (cm): 22 Placement verified by: capnometry Cormack-Lehane Classification: grade I - full view of glottis Number of attempts at approach: 1 Airway not difficult SIGNATURE: KRISTAN Meng PATIENT NAME: Karlene Tom DATE: April 26, 2024 TIME: 3:16 PM CSN: [id number] [facility] 04-25-2024 Telephone encounter Note Appeal letter created - after signature will be faxed to [phone]. Wicho Oviedo RN [facility] 04-25-2024 Miscellaneous Notes Appeal letter created - after signature will be faxed to [phone]. Wicho Oviedo RN documented in this encounter [facility] 04-15-2024 Note HNO ID: [id number] Author: MANNY MENDOZA LSW Service: ? Author Type: Balloon Maker Type: Progress Notes Filed: 04/15/2024 11:08 Note Text: SOCIAL WORK NOTE: Date of service: 04/15/2024 TOPICS ADDRESSED: PHQ-9 survey Pt scored a positive 9 on the PHQ-9 Survey. SW completed a chart review and notes that pt met with psychology within a 24 hour time frame of completing the survey. SW did not reach out to pt to complete a distress assessment due to pt seeing psychology within the same day of complete survey. MARIANA Rapp [facility] 04-15-2024 History of Present illness Narrative SOCIAL WORK NOTE: Date of service: 04/15/2024 TOPICS ADDRESSED: PHQ-9 survey Pt scored a positive 9 on the PHQ-9 Survey. SAURAV completed a chart review and notes that pt met with psychology within a 24 hour time frame of completing the survey. SAURAV did not reach out to pt to complete a distress assessment due to pt seeing psychology within the same day of complete survey. MARIANA Rapp documented in this encounter [facility] 04-14-2024 Note HNO ID: [id number] Author: HAILY MAYER, Therapist Service: ? Author Type: Therapist Type: Progress Notes Filed: 04/14/2024 16:19 Note Text: [facility] Center for Comprehensive Pain Recovery Psychological Evaluation April 14, 2024 Karlene Tom [facility]#: [id number] I have communicated my name and active licensure. The patient's identity and physical location were verified at the time of this visit. Either the patient or their legal employer relations representative has been informed of the risks and benefits of -- and alternatives to -- treatment through virtual visit and consents to proceed with the session remotely. The patient e-signed the Informed Consent for Psychological Evaluation AND Care Form, and the behavioral health care insurance benefits, fees for service, emergency procedures, and the limits of confidentiality that may pertain with any given case were discussed with the patient. The patient was given a copy of the consent form on [employer]. The patient consented to a virtual visit and their location was confirmed. Patient location: [place], [place] CPT Code: [id number] Virtual Psych Diagnotic Eval Appointment Start: 2:00 PM This 43 year old single disabled (but not officially approved yet; she's been unable to work for 12 years) female lives with her daughter and significant other in [place], [place]. 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 She was referred by Felicity Agrawal PA-C for psychological evaluation in the context of chronic pain. This consultation was shared with the referral source via the [facility] electronic medical record. She believes the reason for referral is I'm pretty sure to see if there was a difference from before the ketamine and after the ketamine. Limits to confidentiality were discussed and agreed upon. Informed consent was provided verbally. Patient was informed that this evaluation is for consultation and not to be used for legal or forensic purposes. The goal of the following assessment is to identify the psychological, behavioral, cognitive, and social factors important to or directly affecting the patient?s physiological functioning, health and well-being, as it relates to his/her pain condition. Recommendations will be provided to improve the patient?s health and well-being via cognitive, behavioral, social and/or psychophysiological procedures designed to ameliorate pain related problems. Chief complaints: Current Pain and Related Mood Symptoms: Lower back pain Radiating down both legs (right leg is more intense) Neuropathy from her waist down Back of legs and bottoms of feet burn really bad Upper back (degenerative disc disease) Fatigue Most bothersome/worse symptoms: Lower back pain Patient-Entered Data: Pain Recovery Scores 03/03/2024 2:31 AM LBP over last 6 months - Ongoing back pain problem - START back screen total score - START back screen distress score - START back screen risk score - Oswestry disability index score - PCS rumination subscore 12 PCS magnification subscore 9 PCS helplessness subscore 17 PCS total score 38 03/03/2024 01/05/2024 12/07/2018 PHQ-9 Score 18 14 16 03/03/2024 01/05/2024 CANDACE - 7 SCORES Score 10 9 04/05/2024 01/05/2024 12/07/2018 PROMIS Global Health - (T-Scores - the mean of general population = 50. Five points is a clinically meaningful difference.) Physical T-Score 29.6 29.6 29.6 23.5 Mental T-Score 36.3 36.3 33.8 21.2 No data to display History of Pain Syndrome: The following history is from the patient's report and a review of the EMR independently confirmed with the patient in this visit. Regina Agrawal PA-C, 03/03/2024: Chief complaint: low back pain. SUBJECTIVE: Patient presents with complaints of low back pain and leg pain. Has been evaluated by neurology, spine. States that she has had pain since her childhood. Has a history of spina bifida and has undergone multiple surgeries for tethered cord. Last surgery was in 2017. States that she almost in the last surgery - leaked spinal fluid and it was c/b an infection. Reports that she fractured her legs in 2005 and 2007 - fell both times - the leg pain has been worse since then. Reports pain in her low back, neck, legs. Reports intermittent radiating pain from her back down her buttocks, the posterior thighs and the medial legs to the toes. Right>left. Notes a burning sensation in her back. Notes [place] horses and leg spasms. States that the pain can last for a few days to a few weeks. States that her legs burn when she stands. Has tight hamstrings. Reports numbness or tingling - pins and needles sensations - from her waist down. States that the pain is constant. Describes the pain as tearing, stinging,throbbing, sharp, stabbing. Pain severity 10. Aggravating factors - movement. Alleviating factors - meds, massage, repositioning. Denies any new bowel or bladder dysfunctions - but notes t (more content not included)... [facility] 04-08-2024 History and physical note Images from the original note were not included. [facility] HISTORY AND PHYSICAL EXAMINATION SERVICE DATE: 04/08/2024 SERVICE TIME: 11:05 AM PRIMARY CARE PHYSICIAN: Aidan Forrester MD REASON FOR VISIT: Karlene Tom is a 43 year old female who is scheduled for Bilateral - REPAIR STRABISMUS 1 HORIZONTAL MUSCLE at the request of Dr. Elda Danielson for consultation. My final recommendation will be communicated back to the requesting physician by way of shared medical record or letter. Assessment 1. Pre-op evaluation Surgery scheduled on 04/26/2024. 2. Spina bifida, unspecified hydrocephalus presence, unspecified spinal region (HCC) 3. Tethered cord ([facility]) S/p myelomeningocele repair at (1979) with revision of tethered cord in 1994 and 2016. Follows with neurosurgery, Dr. Huber, last seen by Isaura Agrawal PA-C on 03/03/24. Also sees neurology, Vance Daley PA-C, last visit 01/19/24. Has topiramate (Topamax) for headaches as needed, but does not help. Chronic and stable. 4. Smoker 1 ppd x 20 years. No SOB and lungs CTAB and SpO2 99% RA. She is trying to quit. 5. Neurogenic bladder Receives botox injections and follows with urology at , Dr. Dominick Lopes. Self-caths multiple times a day. Just completed a round of macrobid for recent UTI, but no current UTI symptoms, stable. 6. Multiple thyroid nodules Monitored by endocrinology, Dr. Jailene Dave, last visit 03/31/24 and ENT, Dr. Jayden Buckley, last visit 04/05/24. In the process of work up, biopsied benign. Patient having occasional difficulty swallowing and occasional wheezing when laying flat. CT neck scheduled on 04/20/24. TSH Date Value Ref Range Status 02/22/2024 1.370 0.270 - 4.200 mIU/L Final Comment: If the patient is , TSH reference range varies by gestational period: First Trimester (weeks 9-12): 0.180-2.990 mIU/L Second Trimester: 0.110-3.980 mIU/L Third Trimester: 0.480-4.710 mIU/L Kristopher Faust et al. A Practical Approach for the Verifications and Determination of Site- and Trimester-Specific Reference Intervals for Thyroid Function tests in . Thyroid, 2019:29:3:412-420. Eamon E, et al. 2017 Guidelines of the [place] [employer] for the Diagnosis and Management of Thyroid Disease during and the . Thyroid, 2017:27:3:315-389. 7. Morbid obesity with BMI of 40.0-44.9, adult ([facility]) Body mass index is 44.47 kg/m . 8. Chronic bilateral low back pain with right-sided sciatica Has chronic back pain that can radiates down her right leg. She has received ketamine infusions, but still has back pain. Taking tramadol, Lyrica, and ibuprofen and flexeril as needed. Spine following, Norma Lyman CNP. hronic and stable. Jones Activity Status Index: METS: Walk indoors, such as around the house (1.75 METs) Do light work around the house, such as dusting or washing dishes (2.70 METs) Take care of self; that is eating, dressing, bathing, using the toilet (2.75 METs) DASI Score: 7.2 (Limited due to back pain) Patient denies any chest pain or undue shortness of breath with the above physical activity. Clinical Frailty Scale: 3. Well, with treated comorbid disease STOP-Bang Score: BMI greater than 35 kg/m^2 Denies snoring loudly Has not been observed to stop breathing or choking/gasping during sleep Denies having high blood pressure Patient 50 years old or younger Non-male patient STOP-Bang Score: 1 ANESTHESIA FINDINGS: Intubation History: No history of difficult intubation Significant Anesthesia Considerations: none Airway History: No history of difficult airway I - PHYSICAL EVALUATION AIRWAY Patient intubated: No. Tracheostomy tube not present Mallampati: II. TM distance: >3 FB. Neck ROM: full ROM without neurological symptoms. Mouth opening: adequate. Short neck: no. Thick neck: no Hicks present: no Microretrognathia/Micronagthia/Re cessed Chin: No DENTAL Dental findings: teeth intact. Dentures, upper: complete. Dentures, lower: partial. II - ANESTHESIA PLAN Beta Lucila Monitoring Plan Post Procedure Analgesic Plan Prepared for surgery: This patient is optimally prepared for surgery. CONSULTS: Patient does not require consults for optimization at this time. The Following Tests/Procedures Have Been Initiated: No orders of the defined types were placed in this encounter. , Labs not indicated per PACC protocol, EKG not indicated per PACC protocol Labs reviewed from 10/06/22. UA/UC reviewed from 01/25/24. 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 Patient has been experiencing left wandering eye that has been worsening for the last 5-10 years. She has a history of previous left eye surgery at age 14. She also experiences double vision and migraines. She has been diagnosed with monocular exotropia with other noncomitancies of left eye and has been recommended for the above surgery. REVIEW OF SYSTEMS: PAIN ASSESSMENT: Pain Pain Level: 7 Pain Location: (lower back and bilateral legs) Description: Aching Duration Units: Years Frequency: Continuous General: No weight loss, malaise or fevers. Neuro: +spina bifida, tethered cord s/p surgery at , revision in 1994 and 2016, migraine headaches- stable Negative for TIA's Seizures Respiratory: +current smoker, cough Negative for Asthma, COPD, Dyspnea, Home O2, Pneumonia within 6 weeks (date), URI < 2 weeks, Wheezing Negative for cough, wheezing or shortness of breath. Negative for hemoptysis. Negative for sleep apnea. Cardiovascular: No history of HTN requiring medication, no history of angina, CHF, [place], cardiac surgery or stents. Denies rest pain, gangrene or revascularization/amputation for PVD. No history of cardiovascular symptoms or problems. Negative for chest pain, orthopnea, PND, dizziness, lightheadedness or syncope. Negative for heart murmur. Negative for palpitations or arrhythmia. Negative for h/o DVT/PE. Negative for LE edema. GI: No history of GI symptoms or problems. No history of esophageal varices, recent ascites, or ETOH greater than 2 drinks per day. : +neurogenic bladder- receives botox, self-caths, recently treated for UTI Negative for dysuria, frequency, and hematuria Endocrine: +thyroid nodules- current being worked up Denies any history of other endocrine symptoms/problems. Hematology: No history of bleeding or clotting disorder. Pt is not taking anti-coagulation or platelet medications. No history of hematological symptoms or problems. Oncology: No history of CA metastasis, chemo within 30 days, or radiotherapy within 90 days. Has not lost 10% of body wt in 6 months. No history of oncological symptoms or problems. Psych: +anxiety/depression- stable without medication Musculoskeletal: +chronic lower back pain with sciatica- follows with spine Skin: Negative for lesions, rash and itching. The patient has the following: ACTIVE PROBLEM LIST Smoker Spina Bifida (Hcc) Latex Allergy Tethered Cord (Hcc) Morbid Obesity With Bmi of 40.0-44.9, Adult (Hcc) History of Urinary Self-Catheterization Monocular Exotropia With Other Noncomitancies, Left Eye Hypotropia of Left Eye Vitamin D Deficiency Urge Incontinence Neurogenic Bladder Chronic Lower Back Pain Multiple Thyroid Nodules Covid Immunization Dates Postponed - Covid-19 Vaccine ( season) Postponed until 01/05/2025 01/06/2024 Postponed until 01/05/2025 by Tracie Williamson APRN.CNP (Declined at this time) PAST MEDICAL HISTORY Diagnosis Date Abnormal Pap smear of cervix LEEP History of urinary self-catheterization 05/26/2017 ISC Morbid obesity (HCC) depression Spina bifida (HCC) PAST SURGICAL HISTORY Procedure Laterality Date COLPOSCOPY CERVIX UPPER/ADJACENT VAGINA 05/22/2004 Colposcopy CONIZATION CERVIX W/WO D&C RPR ELTRD EXC 07/22/2004 LEEP-Cervix PAST SURGICAL HISTORY OF 04/21/2006 r leg surgery PAST SURGICAL HISTORY OF 09/21/2006 pins removed - r leg PAST SURGICAL HISTORY OF 2002 or 2003 stomach revision PAST SURGICAL HISTORY OF myelomeningocele and repair of tethered cord (1979,1994, 2016) PAST SURGICAL HISTORY OF 1986 bladder surgery FAMILY HISTORY Problem Relation Age of Onset Cancer Mother skin other (macular degenertion) Mother Mental illness Mother Cancer Father bladder Hypertension Father other (pre diabetes) Father other (pe) Father Ischemic Heart Disease Father Breast Cancer Paternal Grandmother Social History Tobacco Use Smoking status: Every Day Packs/day: 1.00 Years: 20.00 Additional pack years: 0.00 Total pack years: 20.00 Types: Cigarettes Smokeless tobacco: Never Vaping Use Vaping Use: Never used Substance Use Topics Alcohol use: Yes Comment: occasional- 3x a year Drug use: Yes Types: Marijuana Comment: occasional gummies Prior to Admission medications as of 04/08/24 1113 Medication Sig Last Dose Taking traMADol (ULTRAM) 50 mg tablet Take 1 tablet by mouth three times a day for 28 days. Taking Yes pregabalin (LYRICA) 75 mg capsule Take 1 capsule by mouth three times a day for 28 days. Taking Yes nitrofurantoin monohydrate and macrocrystal (MACROBID) 100 mg capsule Take 1 capsule by mouth as needed. Taking Differently Yes topiramate (TOPAMAX) 25 mg tablet Take 1-2 tablets by mouth daily at bedtime. Patient taking differently: Take 25-50 mg by mouth as needed. Taking Differently Yes IBUPROFEN (MOTRIN ORAL) Take by mouth. Taking Yes cyclobenzaprine (FLEXERIL) 10 mg tablet Take 1 tablet by mouth three times daily as needed for Muscle Spasm. Patient taking differently: Take 10 mg by mouth as needed for muscle spasm. Taking Differently Yes Walker (ULTRA-LIGHT ROLLATOR) misc 1 Units as needed. Rollator with seat Taking Differently Yes No medication comments found. ALLERGIES Allergen Reactions Latex Anaphylaxis Ciprofloxacin Hives, Itching Morphine GI Upset Neosporin [Neomycin* Rash Silver Sulfadiazine Other: See Comments Zinc Oxide Rash Objective PHYSICAL EXAM: VITALS: BP 128/84 Pulse 69 Temp (Src) 97.6 (Temporal) Resp 18 Ht 5' 7 (1.70m) Wt 283 lb 15.2 oz (128.8kg) SpO2 99% LMP 04/08/2024 BMI 44.46 kg/(m^2). General: Alert and oriented, Morbidly obese Skin: Normal color, no rash, no lesions. HEENT: EOM, pupils equal, round and reactive. Cardiovascular: Normal S1 & S2, no rubs, murmurs or gallops. No JVD. Pulse regular. Lungs: Normal breath sounds, no wheezes or crackles. Abdomen: Soft, non-tender, no rigidity. Extremities: No deformity, no edema, no joint swelling or clubbing. Tenderness of RLE with palpation due to sciatica- chronic Neurological: Normal cognition and motor skills. Pulses: Carotid and radial pulses normal +2. Diagnostic tests reviewed for today's visit: Lab Value Units Date High Low HB No results within date range. HCT No results within date range. WBC No results within date range. PLT No results within date range. NA No results within date range. K No results within date range. GLUC No results within date range. BUN No results within date range. CREAT No results within date range. PTSEC No results within date range. INR No results within date range. APTT No results within date range. ALT No results within date range. AST No results within date range. TBILI No results within date range. TSH 1.370 mIU/L 02/22/2024 4.200 0.270 No results found for: HBA1C Most recent EKG- 06/10/2017 Diagnosis:SINUS RHYTHM Normal ECG Instructions Given to Patient: Instructions located in the after visit summary. Patient given verbal and written preop instructions and voices comprehension and compliance. SIGNATURE: Jose Luis Francis PA-C PATIENT NAME: Karlene Tom DATE: 04/08/2024 TIME: 11:54 AM [facility] 04-08-2024 History and physical note Images from the original note were not included. [place] [facility] Pre-Anesthesia Consultation Clinic HISTORY AND PHYSICAL EXAMINATION SERVICE DATE: 04/08/2024 SERVICE TIME: 11:05 AM PRIMARY CARE PHYSICIAN: Aidan Forrester MD REASON FOR VISIT: Karlene Tom is a 43 year old female who is scheduled for Bilateral - REPAIR STRABISMUS 1 HORIZONTAL MUSCLE at the request of Dr. Elda Danielson for consultation. My final recommendation will be communicated back to the requesting physician by way of shared medical record or letter. Assessment 1. Pre-op evaluation Surgery scheduled on 04/26/2024. 2. Spina bifida, unspecified hydrocephalus presence, unspecified spinal region (HCC) 3. Tethered cord (HCC) S/p myelomeningocele repair at (1979) with revision of tethered cord in 1994 and 2016. Follows with neurosurgery, Dr. Huber, last seen by Isaura Agrawal PA-C on 03/03/24. Also sees neurology, Vance Daley PA-C, last visit 01/19/24. Has topiramate (Topamax) for headaches as needed, but does not help. Chronic and stable. 4. Smoker 1 ppd x 20 years. No SOB and lungs CTAB and SpO2 99% RA. She is trying to quit. 5. Neurogenic bladder Receives botox injections and follows with urology at , Dr. Dominick Lopes. Self-caths multiple times a day. Just completed a round of macrobid for recent UTI, but no current UTI symptoms, stable. 6. Multiple thyroid nodules Monitored by endocrinology, Dr. Jailene Dave, last visit 03/31/24 and ENT, Dr. Jayden Buckley, last visit 04/05/24. In the process of work up, biopsied benign. Patient having occasional difficulty swallowing and occasional wheezing when laying flat. CT neck scheduled on 04/20/24. TSH Date Value Ref Range Status 02/22/2024 1.370 0.270 - 4.200 mIU/L Final Comment: If the patient is , TSH reference range varies by gestational period: First Trimester (weeks 9-12): 0.180-2.990 mIU/L Second Trimester: 0.110-3.980 mIU/L Third Trimester: 0.480-4.710 mIU/L Kristopher Faust et al. A Practical Approach for the Verifications and Determination of Site- and Trimester-Specific Reference Intervals for Thyroid Function tests in . Thyroid, 2019:29:3:412-420. Eamon Taylor, et al. 2017 Guidelines of the [place] Thy[employer] Association for the Diagnosis and Management of Thyroid Disease during and the . Thyroid, 2017:27:3:315-389. 7. Morbid obesity with BMI of 40.0-44.9, adult (HCC) Body mass index is 44.47 kg/m . 8. Chronic bilateral low back pain with right-sided sciatica Has chronic back pain that can radiates down her right leg. She has received ketamine infusions, but still has back pain. Taking tramadol, Lyrica, and ibuprofen and flexeril as needed. Spine following, Norma Lyman CNP. hronic and stable. Jones Activity Status Index: METS: Walk indoors, such as around the house (1.75 METs) Do light work around the house, such as dusting or washing dishes (2.70 METs) Take care of self; that is eating, dressing, bathing, using the toilet (2.75 METs) DASI Score: 7.2 (Limited due to back pain) Patient denies any chest pain or undue shortness of breath with the above physical activity. Clinical Frailty Scale: 3. Well, with treated comorbid disease STOP-Bang Score: BMI greater than 35 kg/m^2 Denies snoring loudly Has not been observed to stop breathing or choking/gasping during sleep Denies having high blood pressure Patient 50 years old or younger Non-male patient STOP-Bang Score: 1 ANESTHESIA FINDINGS: Intubation History: No history of difficult intubation Significant Anesthesia Considerations: none Airway History: No history of difficult airway I - PHYSICAL EVALUATION AIRWAY Patient intubated: No. Tracheostomy tube not present Mallampati: II. TM distance: >3 FB. Neck ROM: full ROM without neurological symptoms. Mouth opening: adequate. Short neck: no. Thick neck: no Hicks present: no Microretrognathia/Micronagthia/Re cessed Chin: No DENTAL Dental findings: teeth intact. Dentures, upper: complete. Dentures, lower: partial. II - ANESTHESIA PLAN Beta Lucila Monitoring Plan Post Procedure Analgesic Plan Prepared for surgery: This patient is optimally prepared for surgery. CONSULTS: Patient does not require consults for optimization at this time. The Following Tests/Procedures Have Been Initiated: No orders of the defined types were placed in this encounter. , Labs not indicated per PACC protocol, EKG not indicated per PACC protocol Labs reviewed from 10/06/22. UA/UC reviewed from 01/25/24. 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 Patient has been experiencing left wandering eye that has been worsening for the last 5-10 years. She has a history of previous left eye surgery at age 14. She also experiences double vision and migraines. She has been diagnosed with monocular exotropia with other noncomitancies of left eye and has been recommended for the above surgery. REVIEW OF SYSTEMS: PAIN ASSESSMENT: Pain Pain Level: 7 Pain Location: (lower back and bilateral legs) Description: Aching Duration Units: Years Frequency: Continuous General: No weight loss, malaise or fevers. Neuro: +spina bifida, tethered cord s/p surgery at , revision in 1994 and 2016, migraine headaches- stable Negative for TIA's Seizures Respiratory: +current smoker, cough Negative for Asthma, COPD, Dyspnea, Home O2, Pneumonia within 6 weeks (date), URI < 2 weeks, Wheezing Negative for cough, wheezing or shortness of breath. Negative for hemoptysis. Negative for sleep apnea. Cardiovascular: No history of HTN requiring medication, no history of angina, CHF, [place], cardiac surgery or stents. Denies rest pain, gangrene or revascularization/amputation for PVD. No history of cardiovascular symptoms or problems. Negative for chest pain, orthopnea, PND, dizziness, lightheadedness or syncope. Negative for heart murmur. Negative for palpitations or arrhythmia. Negative for h/o DVT/PE. Negative for LE edema. GI: No history of GI symptoms or problems. No history of esophageal varices, recent ascites, or ETOH greater than 2 drinks per day. : +neurogenic bladder- receives botox, self-caths, recently treated for UTI Negative for dysuria, frequency, and hematuria Endocrine: +thyroid nodules- current being worked up Denies any history of other endocrine symptoms/problems. Hematology: No history of bleeding or clotting disorder. Pt is not taking anti-coagulation or platelet medications. No history of hematological symptoms or problems. Oncology: No history of CA metastasis, chemo within 30 days, or radiotherapy within 90 days. Has not lost 10% of body wt in 6 months. No history of oncological symptoms or problems. Psych: +anxiety/depression- stable without medication Musculoskeletal: +chronic lower back pain with sciatica- follows with spine Skin: Negative for lesions, rash and itching. The patient has the following: ACTIVE PROBLEM LIST Smoker Spina Bifida (Hcc) Latex Allergy Tethered Cord (Hcc) Morbid Obesity With Bmi of 40.0-44.9, Adult (Hcc) History of Urinary Self-Catheterization Monocular Exotropia With Other Noncomitancies, Left Eye Hypotropia of Left Eye Vitamin D Deficiency Urge Incontinence Neurogenic Bladder Chronic Lower Back Pain Multiple Thyroid Nodules Covid Immunization Dates Postponed - Covid-19 Vaccine (2022- season) Postponed until 01/05/2025 01/06/2024 Postponed until 01/05/2025 by Tarcie Williamson APRN.FILTER ASSEMBLER (Declined at this time) PAST MEDICAL HISTORY Diagnosis Date Abnormal Pap smear of cervix LEEP History of urinary self-catheterization 05/26/2017 ISC Morbid obesity (HCC) depression Spina bifida (HCC) PAST SURGICAL HISTORY Procedure Laterality Date COLPOSCOPY CERVIX UPPER/ADJACENT VAGINA 05/22/2004 Colposcopy CONIZATION CERVIX W/WO D&C RPR ELTRD EXC 07/22/2004 LEEP-Cervix PAST SURGICAL HISTORY OF 04/21/2006 r leg surgery PAST SURGICAL HISTORY OF 09/21/2006 pins removed - r leg PAST SURGICAL HISTORY OF 2002 or 2003 stomach revision PAST SURGICAL HISTORY OF myelomeningocele and repair of tethered cord (1979,[id number]) PAST SURGICAL HISTORY OF 1986 bladder surgery FAMILY HISTORY Problem Relation Age of Onset Cancer Mother skin other (macular degenertion) Mother Mental illness Mother Cancer Father bladder Hypertension Father other (pre diabetes) Father other (pe) Father Ischemic Heart Disease Father Breast Cancer Paternal Grandmother Social History Tobacco Use Smoking status: Every Day Packs/day: 1.00 Years: 20.00 Additional pack years: 0.00 Total pack years: 20.00 Types: Cigarettes Smokeless tobacco: Never Vaping Use Vaping Use: Never used Substance Use Topics Alcohol use: Yes Comment: occasional- 3x a year Drug use: Yes Types: Marijuana Comment: occasional gummies Prior to Admission medications as of 04/08/24 1113 Medication Sig Last Dose Taking traMADol (ULTRAM) 50 mg tablet Take 1 tablet by mouth three times a day for 28 days. Taking Yes pregabalin (LYRICA) 75 mg capsule Take 1 capsule by mouth three times a day for 28 days. Taking Yes nitrofurantoin monohydrate and macrocrystal (MACROBID) 100 mg capsule Take 1 capsule by mouth as needed. Taking Differently Yes topiramate (TOPAMAX) 25 mg tablet Take 1-2 tablets by mouth daily at bedtime. Patient taking differently: Take 25-50 mg by mouth as needed. Taking Differently Yes IBUPROFEN (MOTRIN ORAL) Take by mouth. Taking Yes cyclobenzaprine (FLEXERIL) 10 mg tablet Take 1 tablet by mouth three times daily as needed for Muscle Spasm. Patient taking differently: Take 10 mg by mouth as needed for muscle spasm. Taking Differently Yes Walker (ULTRA-LIGHT ROLLATOR) misc 1 Units as needed. Rollator with seat Taking Differently Yes No medication comments found. ALLERGIES Allergen Reactions Latex Anaphylaxis Ciprofloxacin Hives, Itching Morphine GI Upset Neosporin [Neomycin* Rash Silver Sulfadiazine Other: See Comments Zinc Oxide Rash Objective PHYSICAL EXAM: VITALS: BP 128/84 Pulse 69 Temp (Src) 97.6 (Temporal) Resp 18 Ht 5' 7 (1.70m) Wt 283 lb 15.2 oz (128.8kg) SpO2 99% LMP 04/08/2024 BMI 44.46 kg/(m^2). General: Alert and oriented, Morbidly obese Skin: Normal color, no rash, no lesions. HEENT: EOM, pupils equal, round and reactive. Cardiovascular: Normal S1 & S2, no rubs, murmurs or gallops. No JVD. Pulse regular. Lungs: Normal breath sounds, no wheezes or crackles. Abdomen: Soft, non-tender, no rigidity. Extremities: No deformity, no edema, no joint swelling or clubbing. Tenderness of RLE with palpation due to sciatica- chronic Neurological: Normal cognition and motor skills. Pulses: Carotid and radial pulses normal +2. Diagnostic tests reviewed for today's visit: Lab Value Units Date High Low HB No results within date range. HCT No results within date range. WBC No results within date range. PLT No results within date range. NA No results within date range. K No results within date range. GLUC No results within date range. BUN No results within date range. CREAT No results within date range. PTSEC No results within date range. INR No results within date range. APTT No results within date range. ALT No results within date range. AST No results within date range. TBILI No results within date range. TSH 1.370 mIU/L 02/22/2024 4.200 0.270 No results found for: HBA1C Most recent EKG- 06/10/2017 Diagnosis:SINUS RHYTHM Normal ECG Instructions Given to Patient: Instructions located in the after visit summary. Patient given verbal and written preop instructions and voices comprehension and compliance. SIGNATURE: Jose Luis Francis PA-C PATIENT NAME: Karlene Tom DATE: 04/08/2024 TIME: 11:54 AM documented in this encounter [facility] 04-08-2024 Telephone encounter Note Left detailed message on identified voice mail. Gave results and phone number to schedule with endocrine surgery as noted by provider. Maya Lewis MA [facility] 04-08-2024 Miscellaneous Notes Left detailed message on identified voice mail. Gave results and phone number to schedule with endocrine surgery as noted by provider. Maya Lewis MA Please call and tell the patient that the results of biopsy of both the nodules is benign. But as we discussed on her appointment, recommendation for surgery still exists due to size of the right mid nodule (5.5 cm) I placed referral to Endocrine surgery on clinic visit If she has any additional questions or concerns, I am here to answer/clarify. Thank you, SRB Patient is asking for a return call with biopsy results documented in this encounter [facility] 04-07-2024 Telephone encounter Note Please call and tell the patient that the results of biopsy of both the nodules is benign. But as we discussed on her appointment, recommendation for surgery still exists due to size of the right mid nodule (5.5 cm) I placed referral to Endocrine surgery on clinic visit If she has any additional questions or concerns, I am here to answer/clarify. Thank you, SRB [facility] 04-07-2024 Instructions Jose Luis Francis PA-C - 04/07/2024 10:05 AM EDT Images from the original note were not included. [facility] PATIENT PREOPERATIVE INSTRUCTIONS Elda Danielson MD has scheduled you for your procedure at this surgery center: [facility] Scheduling Office: [phone] --[address] [place] [address]. Arrival Time for Surgery: - To obtain your arrival time for surgery, call your physician's office the day before your surgery. - If your surgery is scheduled for Thursday, call the Thursday before. Your surgeon s skin lifter bacon will tell you what time to call the office. - If you have not reached the departmental skin lifter bacon by 5 P.M., call [phone] after 5 P.M. the day before your surgery. Please be aware that emergency situations arise, which may delay or change your surgical time. If this happens, we will notify you as soon as possible and regret any inconvenience. Please read below carefully for your personalized instructions. Dietary Restrictions: - No solid food after midnight. - You may have 12 ounces of clear liquids (water, clear juices such as apple juice or gatorade, carbonated beverages, clear tea, black coffee, jello) until 2 hours before scheduled arrival at facility. Medications: Unless instructed differently below, stay on all of your medications until your surgery. Approved medications to take the morning of surgery with a sip of water: pregabalin (Lyrica), topiramate (Topamax) Is Patient Diabetic:No If you start any new medications after today's visit, please contact the surgeon's office. Blood Thinning Medications: - Stop NSAIDS (Ibuprofen, Advil, Aleve, Motrin, Celebrex, Mobic, etc.) 7 days before surgery, as directed by your surgeon. - Stop Aspirin 7 days before surgery, as directed by your surgeon. - Stop Vitamin E, ALL multi-vitamins, herbals and dietary supplements 14 days before surgery. - You may take Tylenol (Acetaminophen) or any of your pain medications that do not contain aspirin or NSAIDS as needed. Important Reminders: - Candy, mints, and tobacco products are NOT permitted the morning of surgery. - Hearing aids, dentures and glasses may be worn the morning of surgery, but you may be asked to remove them prior to your procedure. - NO jewelry, body piercings, makeup, hairpins or contacts are to be worn the day of surgery. If you develop symptoms such as a fever, cold, or flu, or have other changes to your health within TWO DAYS of scheduled surgery or the morning of surgery, please contact the surgery center above. Personal Belongings: -Please have photo ID and insurance cards. -If you do not have a copy of advance directives on file with us, please bring a copy with you on the day of surgery. - Leave ALL valuables and money at home or with family members. For Outpatient Procedures: - YOU MUST HAVE A RESPONSIBLE TELEPHONE SERVICE ADVISER TAKE YOU HOME. A LEGAL SECRETARY OR DRAMA CRITIC CANNOT BE MADE A RESPONSIBLE TELEPHONE SERVICE ADVISER. - We recommend that a responsible person stays with you overnight to take care of you. - You cannot stay in a hotel alone after outpatient surgery. You will not be permitted to have your surgery, if you do not have someone to take care of you. If you already have an Advance Directive, please fax a copy to [phone] or email to [email or web address] for it to be added to your chart. If you do not have an Advance Directive, you can find the appropriate form and more information at [email or web address]. We recommend that you complete the Advance Directive form found on the website and bring it with you the day of your surgery. It can be witnessed and scanned into your chart that day. Jose Luis Francis PA-C documented in this encounter [facility] 04-05-2024 Note HNO ID: [id number] Author: JAYDEN BUCKLEY MD Service: ? Author Type: Physician Type: Progress Notes Filed: 04/05/2024 16:35 Note Text: OTOLARYNGOLOGY-HEAD AND NECK SURGERY CC: Karlene Tom is a 43 year old female who is seen at the request of Vance Daley for evaluation of thryoid nodle . My findings and recommendations will be communicated to the referring provider via the shared electronic medical record. Assessment: ASSESSMENT/PLAN: 1. Multiple thyroid nodules - ICD9: 241.1, ICD10: E04.2 At this point benign unclear Will get ct scan neck to sort out Jayden Buckley MD 2. Airway compromise ct scan to sort out impact on airway Medical Decision Making: Problems: Moderate: Acute complicated injury Data: Unique source(s) for external note(s) reviewed: 1 Unique test result(s) reviewed: 1 Risk: Moderate: Moderate risk from testing/treatment Medical Decision Making Level: 4 - Moderate HPI: here with history of thyroid nodules and for evaluation biopsies benign ALLERGIES Allergen Reactions Latex Anaphylaxis Ciprofloxacin Hives, Itching Morphine GI Upset Neosporin [Neomycin* Rash Silver Sulfadiazine Other: See Comments Zinc Oxide Rash Current Outpatient Medications Medication Sig traMADol (ULTRAM) 50 mg tablet Take 1 tablet by mouth three times a day for 28 days. pregabalin (LYRICA) 75 mg capsule Take 1 capsule by mouth three times a day for 28 days. IBUPROFEN (MOTRIN ORAL) Take by mouth. acetaminophen (TYLENOL) 325 mg tablet Take 1 tablet by mouth every 6 hours as needed. cyclobenzaprine (FLEXERIL) 10 mg tablet Take 1 tablet by mouth three times daily as needed for Muscle Spasm. Walker (ULTRA-LIGHT ROLLATOR) misc 1 Units as needed. Rollator with seat nitrofurantoin monohydrate and macrocrystal (MACROBID) 100 mg capsule Take 1 capsule by mouth two times a day. (Patient not taking: Reported on 04/05/2024) traMADol (ULTRAM) 50 mg tablet Take 50 mg by mouth three times a day. (Patient not taking: Reported on 04/05/2024) omeprazole (PRILOSEC) 20 mg capsule Take 1 capsule by mouth once daily. (Patient not taking: Reported on 03/25/2024) topiramate (TOPAMAX) 25 mg tablet Take 1-2 tablets by mouth daily at bedtime. (Patient not taking: Reported on 03/25/2024) No current facility-administered medications for this visit. PAST MEDICAL HISTORY Diagnosis Date Abnormal Pap smear of cervix LEEP History of urinary self-catheterization 05/26/2017 ISC Morbid obesity (HCC) depression Spina bifida (HCC) PAST SURGICAL HISTORY Procedure Laterality Date COLPOSCOPY CERVIX UPPER/ADJACENT VAGINA 05/25 Colposcopy CONIZATION CERVIX W/WO DANDC RPR ELTRD EXC 07/25 LEEP-Cervix PAST SURGICAL HISTORY OF 04/26 r leg surgery PAST SURGICAL HISTORY OF 2006 pins removed - r leg PAST SURGICAL HISTORY OF 2002 or 2003 stomach revision Social History: Social History Tobacco Use Smoking status: Every Day Packs/day: 1.00 Years: 20.00 Additional pack years: 0.00 Total pack years: 20.00 Types: Cigarettes Smokeless tobacco: Never Vaping Use Vaping Use: Never used Substance Use Topics Alcohol use: No Drug use: Yes Types: Marijuana Comment: occasional gummies at HS FAMILY HISTORY Problem Relation Age of Onset Cancer Mother skin other (macular degenertion) Mother Mental illness Mother Cancer Father bladder Hypertension Father other (pre diabetes) Father other (pe) Father Ischemic Heart Disease Father Breast Cancer Paternal Grandmother ROS: GENERAL: No weight loss, malaise or fevers. HEENT: Negative for frequent or significant headaches, No changes in hearing or vision, No nasal bleeding, congestion or rhinorrhea, No sore throat or change in voice NECK: Negative for lumps, goiter, pain and significant neck swelling RESPIRATORY: Negative for cough, hemoptysis, wheezing or shortness of breath CARDIOVASCULAR: Negative for chest pain, leg swelling or palpitations. GASTROINTESTINAL: No nausea, vomiting, or diarrhea MUSCULOSKELETAL: Negative for joint pain or swelling, back pain or muscle pain. NEUROLOGIC: Negative for focal numbness or weakness, headaches and dizziness or syncope. SKIN: Negative for lesions, rash, and itching. HEMATOLOGIC/LYMPHATIC/IMMUNOLOGIC : Negative for prolonged bleeding, bruising easily or swollen nodes. ENDOCRINE: Negative for cold or heat intolerance, polyuria, polydipsia and goiter. PHYSICAL EXAM: On physical examination Karlene Tom is a well-developed, well nourished female. Her speech is wnl and her voice is wnl. Mental status revealed patient to be alert and oriented. Mood is appropriate. Details of the physical examination: HEAD AND FACE: Physical examination of the head, neck, external nose, external ears, mouth and face fails to demonstrate any significant abnormality or asymmetry to critical face to face observation. Skin and scalp are normal. EARS: RT Canal: paten (more content not included)... [facility] 04-05-2024 History of Present illness Narrative OTOLARYNGOLOGY-HEAD AND NECK SURGERY CC: Karlene Tom is a 43 year old female who is seen at the request of Vance Daley for evaluation of thryoid nodle . My findings and recommendations will be communicated to the referring provider via the shared electronic medical record. Assessment: ASSESSMENT/PLAN: 1. Multiple thyroid nodules - ICD9: 241.1, ICD10: E04.2 At this point benign unclear Will get ct scan neck to sort out Jayden Buckley MD 2. Airway compromise ct scan to sort out impact on airway Medical Decision Making: Problems: Moderate: Acute complicated injury Data: Unique source(s) for external note(s) reviewed: 1 Unique test result(s) reviewed: 1 Risk: Moderate: Moderate risk from testing/treatment Medical Decision Making Level: 4 - Moderate HPI: here with history of thyroid nodules and for evaluation biopsies benign ALLERGIES Allergen Reactions Latex Anaphylaxis Ciprofloxacin Hives, Itching Morphine GI Upset Neosporin [Neomycin* Rash Silver Sulfadiazine Other: See Comments Zinc Oxide Rash Current Outpatient Medications Medication Sig traMADol (ULTRAM) 50 mg tablet Take 1 tablet by mouth three times a day for 28 days. pregabalin (LYRICA) 75 mg capsule Take 1 capsule by mouth three times a day for 28 days. IBUPROFEN (MOTRIN ORAL) Take by mouth. acetaminophen (TYLENOL) 325 mg tablet Take 1 tablet by mouth every 6 hours as needed. cyclobenzaprine (FLEXERIL) 10 mg tablet Take 1 tablet by mouth three times daily as needed for Muscle Spasm. Walker (ULTRA-LIGHT ROLLATOR) misc 1 Units as needed. Rollator with seat nitrofurantoin monohydrate and macrocrystal (MACROBID) 100 mg capsule Take 1 capsule by mouth two times a day. (Patient not taking: Reported on 04/05/2024) traMADol (ULTRAM) 50 mg tablet Take 50 mg by mouth three times a day. (Patient not taking: Reported on 04/05/2024) omeprazole (PRILOSEC) 20 mg capsule Take 1 capsule by mouth once daily. (Patient not taking: Reported on 03/25/2024) topiramate (TOPAMAX) 25 mg tablet Take 1-2 tablets by mouth daily at bedtime. (Patient not taking: Reported on 03/25/2024) No current facility-administered medications for this visit. PAST MEDICAL HISTORY Diagnosis Date Abnormal Pap smear of cervix LEEP History of urinary self-catheterization 05/26/2017 ISC Morbid obesity (HCC) depression Spina bifida (HCC) PAST SURGICAL HISTORY Procedure Laterality Date COLPOSCOPY CERVIX UPPER/ADJACENT VAGINA 05/25 Colposcopy CONIZATION CERVIX W/WO D&C RPR ELTRD EXC 07/25 LEEP-Cervix PAST SURGICAL HISTORY OF 04/26 r leg surgery PAST SURGICAL HISTORY OF 2006 pins removed - r leg PAST SURGICAL HISTORY OF 2002 or 2003 stomach revision Social History: Social History Tobacco Use Smoking status: Every Day Packs/day: 1.00 Years: 20.00 Additional pack years: 0.00 Total pack years: 20.00 Types: Cigarettes Smokeless tobacco: Never Vaping Use Vaping Use: Never used Substance Use Topics Alcohol use: No Drug use: Yes Types: Marijuana Comment: occasional gummies at HS FAMILY HISTORY Problem Relation Age of Onset Cancer Mother skin other (macular degenertion) Mother Mental illness Mother Cancer Father bladder Hypertension Father other (pre diabetes) Father other (pe) Father Ischemic Heart Disease Father Breast Cancer Paternal Grandmother ROS: GENERAL: No weight loss, malaise or fevers. HEENT: Negative for frequent or significant headaches, No changes in hearing or vision, No nasal bleeding, congestion or rhinorrhea, No sore throat or change in voice NECK: Negative for lumps, goiter, pain and significant neck swelling RESPIRATORY: Negative for cough, hemoptysis, wheezing or shortness of breath CARDIOVASCULAR: Negative for chest pain, leg swelling or palpitations. GASTROINTESTINAL: No nausea, vomiting, or diarrhea MUSCULOSKELETAL: Negative for joint pain or swelling, back pain or muscle pain. NEUROLOGIC: Negative for focal numbness or weakness, headaches and dizziness or syncope. SKIN: Negative for lesions, rash, and itching. HEMATOLOGIC/LYMPHATIC/IMMUNOLOGIC : Negative for prolonged bleeding, bruising easily or swollen nodes. ENDOCRINE: Negative for cold or heat intolerance, polyuria, polydipsia and goiter. PHYSICAL EXAM: On physical examination Karlene Tom is a well-developed, well nourished female. Her speech is wnl and her voice is wnl. Mental status revealed patient to be alert and oriented. Mood is appropriate. Details of the physical examination: HEAD AND FACE: Physical examination of the head, neck, external nose, external ears, mouth and face fails to demonstrate any significant abnormality or asymmetry to critical face to face observation. Skin and scalp are normal. EARS: RT Canal: patent RT Drum: intact RT Pneumotoscopy: mobile LT Canal: patent LT Drum: intact LT Pneumotoscopy: mobile NOSE: Examination of the nasal cavity revealed a septum which is wnl. The mucosa is pink, and the visible turbinates are normal on anterior rhinoscopy. There is no purulence or polyps. MASTICATION: The teeth appear wnl. The lips and gums are without lesions. ORAL CAVITY AND OROPHARYNX: The oral mucosa, hard and soft palates, tongue, tonsil area, and posterior pharyngeal wall are without lesions. PROCEDURE: Flexible Laryngoscopy PREOPERATIVE DIAGNOSIS: goiter POSTOPERATIVE DIAGNOSIS: goiter INDICATIONS: Stridor/Airway Obstruction - Necessitating Endoscopy ANESTHESIA: Lidocaine 2% and Marshal-Synephrine % PROCEDURE: Topical anesthesia and vasoconstriction was applied with spray to the right and left side(s) of the nose. After waiting an appropriate period of time for anesthesia/vasoconstriction to become effective, a flexible laryngoscope was passed through the the left and right side(s) of the nose. Nasopharynx, oropharynx, hypopharynx and larynx were examined. FINDINGS: The nasopharynx and oropharynx were normal without any lesions or masses visualized. No masses or lesions were visualized at the base of tongue, vallecula, epiglottis, aryepiglottic folds, pyriform sinuses, and lateral pharyngeal moore. True vocal fold movement was intact bilaterally. No lesions visualized. The patient's airway was widely patent with no evidence of obstruction. Pt tolerated the procedure well, and there were no complications. The procedure was performed by Dr. Buckley. Jayden Buckley MD NECK: The neck appears symmetric without scars. On palpation, there are no masses or lymphadenopathy. The thyroid is not palpable and was free of masses. No salivary gland masses or hypertrophy is noted. REVIEW OF RADIOLOGICAL FILMS AND RECORDS: Wnl Jayden Buckley MD documented in this encounter [facility] 04-05-2024 Telephone encounter Note Patient is asking for a return call with biopsy results [facility] 03-31-2024 Instructions Jailene Dave MD - 03/31/2024 3:55 PM EDT You had Fine needle aspiration of right sided thyroid nodules. 1) If there is soreness to touch or swallowing, can use ice over the area as needed 2) Can use Tylenol 500 mg every 6-8 hrs as needed (avoid using Ibuprofen,Aleeve as these can cause increased bleeding) 3) If you develop intense pain and/or swelling at the site of biopsy, please go to the ER 4) Results with be available in one week. If you do not hear from us in that time frame, please call the office for an update. documented in this encounter [facility] 03-31-2024 Note HNO ID: [id number] Author: JAILENE DAVE MD Service: ? Author Type: Physician Type: Progress Notes Filed: 03/31/2024 15:58 Note Text: Fine Needle Aspiration(FNA) Biopsy of thyroid nodule Karlene Tom was identified by name and date, acknowledges here to have a Fine Needle Aspiration(FNA) of bilateral thyroid nodules performed. Risks, benefits and alternatives D/W patient by me Time/Date: March 31, 2024 2:59 PM Referred by: Jailene Dave MD Primary Qa Tech: Jailene Dave MD Blood thinners: no Discussed the risk and benefits of the procedure in detail. Explained that it is done under US guidance. Usually we do 3-4 needle passes for each nodule to ensure adequate sample. Explained the five possible outcomes from the pathology: 1. benign 2. Malignant 3. Suspicious for malignancy 4. Insufficient sample 5. Follicular neoplasm Patient verbalised understanding. Informed consent obtained Time out procedure performed UNIVERSAL PROTOCOL / SAFETY CHECKLIST Procedure to be Performed: FNAB of 1.8 cm right isthmus nodule and 5.5 cm right mid thyroid nodule Sign In: A Moment of CARE was completed. Personnel directly involved with the procedure wore the appropriate PPE (Personal Protective Equipment). Patient/Surrogate Stated/Verified: PATIENT VERIFIED(optional for EMERGENT procedures): Patient name, Date of , Relevant allergies, and The intended procedure Time Out Communication: Intended patient and procedure match the source documents. Consent documented and matches the intended procedure. Relevant labs, photos, and/or imaging studies have been reviewed. Sign Out: SIGN OUT (optional for EMERGENT procedures): All specimen containers correctly labeled. Jailene Dave MD Procedure: Performed under ultrasound guidance Skin was prepped with alcohol swabs Ice and numbing spray were both used to numb the skin FNA Bx X 4 performed with a 25-G needle under U/S guidance for both trhe right sided nodules by me During the aspiration needle was observed inside the nodule on 4 passes. Patient tolerated the procedure well Complications: NONE Character of Aspirate: On the 4 needle passes small amount of bloody liquid was obtained. Sign out communication: Patient was given instructions regarding any complications that may arise. Impression and Suggested Follow-up: Results will be communicated to the patient by Dr Dave and plans for management and follow up will be made based on these results. Jailene Dave MD [facility] 03-31-2024 History of Present illness Narrative Fine Needle Aspiration(FNA) Biopsy of thyroid nodule Karlene Tom was identified by name and date, acknowledges here to have a Fine Needle Aspiration(FNA) of bilateral thyroid nodules performed. Risks, benefits and alternatives D/W patient by me Time/Date: March 31, 2024 2:59 PM Referred by: Jailene Dave MD Primary Qa Tech: Jailene Dave MD Blood thinners: no Discussed the risk and benefits of the procedure in detail. Explained that it is done under US guidance. Usually we do 3-4 needle passes for each nodule to ensure adequate sample. Explained the five possible outcomes from the pathology: 1. benign 2. Malignant 3. Suspicious for malignancy 4. Insufficient sample 5. Follicular neoplasm Patient verbalised understanding. Informed consent obtained Time out procedure performed UNIVERSAL PROTOCOL / SAFETY CHECKLIST Procedure to be Performed: FNAB of 1.8 cm right isthmus nodule and 5.5 cm right mid thyroid nodule Sign In: A Moment of CARE was completed. Personnel directly involved with the procedure wore the appropriate PPE (Personal Protective Equipment). Patient/Surrogate Stated/Verified: PATIENT VERIFIED(optional for EMERGENT procedures): Patient name, Date of , Relevant allergies, and The intended procedure Time Out Communication: Intended patient and procedure match the source documents. Consent documented and matches the intended procedure. Relevant labs, photos, and/or imaging studies have been reviewed. Sign Out: SIGN OUT (optional for EMERGENT procedures): All specimen containers correctly labeled. Jailene Dave MD Procedure: Performed under ultrasound guidance Skin was prepped with alcohol swabs Ice and numbing spray were both used to numb the skin FNA Bx X 4 performed with a 25-G needle under U/S guidance for both trhe right sided nodules by me During the aspiration needle was observed inside the nodule on 4 passes. Patient tolerated the procedure well Complications: NONE Character of Aspirate: On the 4 needle passes small amount of bloody liquid was obtained. Sign out communication: Patient was given instructions regarding any complications that may arise. \ Impression and Suggested Follow-up: Results will be communicated to the patient by Dr Dave and plans for management and follow up will be made based on these results. Jailene Dave MD documented in this encounter [facility] [place] 03-29-2024 Miscellaneous Notes Request for controlled medication pregaballin and tramadol. PMDP checked. No signs of concerns. Refill sent. Received request for refill of the following medications: Requested Prescriptions Pending Prescriptions Disp Refills traMADol (ULTRAM) 50 mg tablet 84 tablet 0 Sig: Take 1 tablet by mouth three times a day for 28 days. pregabalin (LYRICA) 75 mg capsule 84 capsule 0 Sig: Take 1 capsule by mouth three times a day for 28 days. Patient requested a 90 day refill. Pharmacy verified and updated accordingly. Patient was last seen by PCP team/provider: 02/22/2024 Upcoming appointment scheduled: 06/23/2024 Elizabeth Landrum MA March 29, 2024 8:07 AM documented in this encounter [facility] [place] 03-29-2024 Telephone encounter Note Request for controlled medication pregaballin and tramadol. PMDP checked. No signs of concerns. Refill sent. [facility] [place] 03-29-2024 Telephone encounter Note Received request for refill of the following medications: Requested Prescriptions Pending Prescriptions Disp Refills traMADol (ULTRAM) 50 mg tablet 84 tablet 0 Sig: Take 1 tablet by mouth three times a day for 28 days. pregabalin (LYRICA) 75 mg capsule 84 capsule 0 Sig: Take 1 capsule by mouth three times a day for 28 days. Patient requested a 90 day refill. Pharmacy verified and updated accordingly. Patient was last seen by PCP team/provider: 02/22/2024 Upcoming appointment scheduled: 06/23/2024 Elizabeth Landrum MA March 29, 2024 8:07 AM [facility] [place] 03-25-2024 Instructions Jailene Dave MD - 03/25/2024 8:51 AM EDT Please schedule for FNA of thyroid nodules documented in this encounter [facility] [place] 03-25-2024 Note HNO ID: [id number] Author: JAILENE DAVE MD Service: ? Author Type: Physician Type: Progress Notes Filed: 04/06/2024 15:30 Note Text: [facility] Initial Clinic Visit Note NAME: Karlene Tom PCP: Aidan Forrester MD Requesting Provider: Aidan Forrester [address] [address] My final recommendations will be communicated back to the requesting physician by way of shared medical record or letter via [place] mail. Chief Complaint: Multiple Thyroid nodules HPI: Karlene Tom is a 43 year old female was referred for evaluation of a thyroid nodules. History in brief, she was noted to have thyroid nodules on MRI cervical spine done for spina bifida. Further evaluation with thyroid US revealed multiple nodules with the dominant one being 5.5 cm in maximum diameter. Patient reports her symptoms started 6 months ago, endorsed with multiple doctors and was told that her symptoms are unrelated to her thyroid Related symptoms: She reports dizziness, Nausea, hair loss, sleeping a lot She constantly clears her throat- choking on food In November 2023, she had coughing up of something looking like a tissue, she was scared if it was her tonsil- had sore throat prior to it and sore throat resolved soon after She complains of feeling apprehensive since she was told about thyroid nodules Diff breathing- she wheezes when she laying down Hoarseness or sore throat when she talks a lot History of radiation exposure to the neck: no No environmental or occupational exposure to radioactive materials such as proximity to nuclear plants or living in areas of endemic high radioactivity History of smoking: no Family history of thyroid cancer: no Family history of thyroid nodules: no PAST MEDICAL HISTORY Diagnosis Date Abnormal Pap smear of cervix LEEP History of urinary self-catheterization 05/26/2017 [facility] Morbid obesity (HCC) depression Spina bifida (HCC) PAST SURGICAL HISTORY Procedure Laterality Date COLPOSCOPY CERVIX UPPER/ADJACENT VAGINA 05/25 Colposcopy CONIZATION CERVIX W/WO DANDC RPR ELTRD EXC 07/25 LEEP-Cervix PAST SURGICAL HISTORY OF 04/26 r leg surgery PAST SURGICAL HISTORY OF 2006 pins removed - r leg PAST SURGICAL HISTORY OF 2002 or 2003 stomach revision ALLERGIES Allergen Reactions Latex Anaphylaxis Ciprofloxacin Hives, Itching Morphine GI Upset Neosporin [Neomycin* Rash Silver Sulfadiazine Other: See Comments Zinc Oxide Rash Social History Tobacco Use Smoking status: Every Day Packs/day: 1.00 Years: 20.00 Additional pack years: 0.00 Total pack years: 20.00 Types: Cigarettes Last attempt to quit: 03/21/2015 Years since quittin.0 Smokeless tobacco: Never Substance Use Topics Alcohol use: No Drug use: Yes Types: Marijuana Comment: occasional gummies at HS FAMILY HISTORY Problem Relation Age of Onset Cancer Mother skin other (macular degenertion) Mother Mental illness Mother Cancer Father bladder Hypertension Father other (pre diabetes) Father other (pe) Father Ischemic Heart Disease Father Breast Cancer Paternal Grandmother MEDICATIONS: Current Outpatient Medications on File Prior to Visit Medication Sig nitrofurantoin monohydrate and macrocrystal (MACROBID) 100 mg capsule Take 1 capsule by mouth two times a day. traMADol (ULTRAM) 50 mg tablet Take 50 mg by mouth three times a day. pregabalin (LYRICA) 75 mg capsule Take 1 capsule by mouth three times a day for 28 days. acetaminophen (TYLENOL) 325 mg tablet Take 1 tablet by mouth every 6 hours as needed. cyclobenzaprine (FLEXERIL) 10 mg tablet Take 1 tablet by mouth three times daily as needed for Muscle Spasm. omeprazole (PRILOSEC) 20 mg capsule Take 1 capsule by mouth once daily. (Patient not taking: Reported on 03/25/2024) topiramate (TOPAMAX) 25 mg tablet Take 1-2 tablets by mouth daily at bedtime. (Patient not taking: Reported on 03/25/2024) IBUPROFEN (MOTRIN ORAL) Take by mouth. (Patient not taking: Reported on 03/25/2024) Walker (ULTRA-LIGHT ROLLATOR) misc 1 Units as needed. Rollator with seat (Patient not taking: Reported on 03/25/2024) No current facility-administered medications on file prior to visit. REVIEW OF SYSTEMS: As per HPI PHYSICAL EXAMINATION: BP: 126/84 Pulse: 74 Resp: 20 SpO2: 98 % General: no acute distress, alert and orientated X 3 Eyes:EOMI, pupils are equally round, anicteric sclera Neck - supple, no significant adenopathy, Thyroid: significantly enlarged in size right>left, asymmetry noted, bilateral palpable nodules Neuro: alert, oriented, normal speech, no focal findings noted, normal b/l patellar reflexes CV: normal rate and regular rhythm, S1 and S2 normal. Chest: unlabored breathing on room air Abdominal: soft, non-tender. Bowel sounds normal. Musculoskeletal: no joint tenderness, def (more content not included)... [facility] 03-25-2024 History of Present illness Narrative [facility] Initial Clinic Visit Note NAME: Karlene Tom PCP: Aidan Forrester MD Requesting Provider: Aidan Forrester [facility] [address] My final recommendations will be communicated back to the requesting physician by way of shared medical record or letter via [place] mail. Chief Complaint: Multiple Thyroid nodules HPI: Karlene Tom is a 43 year old female was referred for evaluation of a thyroid nodules. History in brief, she was noted to have thyroid nodules on MRI cervical spine done for spina bifida. Further evaluation with thyroid US revealed multiple nodules with the dominant one being 5.5 cm in maximum diameter. Patient reports her symptoms started 6 months ago, endorsed with multiple doctors and was told that her symptoms are unrelated to her thyroid Related symptoms: She reports dizziness, Nausea, hair loss, sleeping a lot She constantly clears her throat- choking on food In November 2023, she had coughing up of something looking like a tissue, she was scared if it was her tonsil- had sore throat prior to it and sore throat resolved soon after She complains of feeling apprehensive since she was told about thyroid nodules Diff breathing- she wheezes when she laying down Hoarseness or sore throat when she talks a lot History of radiation exposure to the neck: no No environmental or occupational exposure to radioactive materials such as proximity to nuclear plants or living in areas of endemic high radioactivity History of smoking: no Family history of thyroid cancer: no Family history of thyroid nodules: no PAST MEDICAL HISTORY Diagnosis Date Abnormal Pap smear of cervix LEEP History of urinary self-catheterization 05/26/2017 ISC Morbid obesity (HCC) depression Spina bifida (HCC) PAST SURGICAL HISTORY Procedure Laterality Date COLPOSCOPY CERVIX UPPER/ADJACENT VAGINA 05/25 Colposcopy CONIZATION CERVIX W/WO D&C RPR ELTRD EXC 07/25 LEEP-Cervix PAST SURGICAL HISTORY OF 04/26 r leg surgery PAST SURGICAL HISTORY OF 2006 pins removed - r leg PAST SURGICAL HISTORY OF 2002 or 2003 stomach revision ALLERGIES Allergen Reactions Latex Anaphylaxis Ciprofloxacin Hives, Itching Morphine GI Upset Neosporin [Neomycin* Rash Silver Sulfadiazine Other: See Comments Zinc Oxide Rash Social History Tobacco Use Smoking status: Every Day Packs/day: 1.00 Years: 20.00 Additional pack years: 0.00 Total pack years: 20.00 Types: Cigarettes Last attempt to quit: 03/21/2015 Years since quittin.0 Smokeless tobacco: Never Substance Use Topics Alcohol use: No Drug use: Yes Types: Marijuana Comment: occasional gummies at HS FAMILY HISTORY Problem Relation Age of Onset Cancer Mother skin other (macular degenertion) Mother Mental illness Mother Cancer Father bladder Hypertension Father other (pre diabetes) Father other (pe) Father Ischemic Heart Disease Father Breast Cancer Paternal Grandmother MEDICATIONS: Current Outpatient Medications on File Prior to Visit Medication Sig nitrofurantoin monohydrate and macrocrystal (MACROBID) 100 mg capsule Take 1 capsule by mouth two times a day. traMADol (ULTRAM) 50 mg tablet Take 50 mg by mouth three times a day. pregabalin (LYRICA) 75 mg capsule Take 1 capsule by mouth three times a day for 28 days. acetaminophen (TYLENOL) 325 mg tablet Take 1 tablet by mouth every 6 hours as needed. cyclobenzaprine (FLEXERIL) 10 mg tablet Take 1 tablet by mouth three times daily as needed for Muscle Spasm. omeprazole (PRILOSEC) 20 mg capsule Take 1 capsule by mouth once daily. (Patient not taking: Reported on 03/25/2024) topiramate (TOPAMAX) 25 mg tablet Take 1-2 tablets by mouth daily at bedtime. (Patient not taking: Reported on 03/25/2024) IBUPROFEN (MOTRIN ORAL) Take by mouth. (Patient not taking: Reported on 03/25/2024) Walker (ULTRA-LIGHT ROLLATOR) misc 1 Units as needed. Rollator with seat (Patient not taking: Reported on 03/25/2024) No current facility-administered medications on file prior to visit. REVIEW OF SYSTEMS: As per HPI PHYSICAL EXAMINATION: BP: 126/84 Pulse: 74 Resp: 20 SpO2: 98 % General: no acute distress, alert and orientated X 3 Eyes:EOMI, pupils are equally round, anicteric sclera Neck - supple, no significant adenopathy, Thyroid: significantly enlarged in size right>left, asymmetry noted, bilateral palpable nodules Neuro: alert, oriented, normal speech, no focal findings noted, normal b/l patellar reflexes CV: normal rate and regular rhythm, S1 and S2 normal. Chest: unlabored breathing on room air Abdominal: soft, non-tender. Bowel sounds normal. Musculoskeletal: no joint tenderness, deformity or swelling Extremities: no edema, no discoloration Skin: no rash or erythema LABS AND IMAGING Latest Ref Rng 02/22/2024 TSH 0.270 - 4.200 mIU/L 1.370 Free T4 0.9 - 1.7 ng/dL 1.2 THYROID PEROXIDASE ANTIBODY <5.6 IU/mL <3.0 Thyroid ultrasound (02/08/2024): RESULT: Right Lobe: 7.3 x 3.0 x 3.5 cm; homogeneous echogenicity, expected vascular flow. Left Lobe: 4.7 x 1.4 x 1.3 cm; homogeneous echogenicity, expected vascular flow. Isthmus: 0.6 cm The most suspicious thyroid nodule(s) (up to four) as below: NODULE 1: Location: Right mid-lower pole Size: 5.5 x 3.8 x 3.4 cm Characteristics: Composition: Solid or almost completely solid, 2 points Echogenicity: Hypoechoic, 2 points (heterogeneous) Shape: [id number], 0 points Margin: Smooth, 0 points Echogenic foci (add points for all that apply): None, 0 points Internal vascularity: present Interval growth: No prior available for comparison TI-RADS Category: TR4 ACR Recommendation: TI-RADS 4 nodule. FNA is recommended. NODULE 2: Location: Right isthmus Size: 1.8 x 1.5 x 1.2 cm Characteristics: Composition: Solid or almost completely solid, 2 points Echogenicity: Hypoechoic, 2 points (heterogeneous) Shape: Hfrja-akbn-cwvh, 0 points Margin: Smooth, 0 points Echogenic foci (add points for all that apply): None, 0 points Internal vascularity: present Interval growth: No prior available for comparison TI-RADS Category: TR4 ACR Recommendation: TI-RADS 4 nodule. FNA is recommended. NODULE 3: Location: Right upper pole Size: 0.9 x 0.8 x 0.4 cm Characteristics: Composition: Solid or almost completely solid, 2 points Echogenicity: Hypoechoic, 2 points (heterogeneous) Shape: Iaqdy-vqgo-pgvs, 0 points Margin: Smooth, 0 points Echogenic foci (add points for all that apply): None, 0 points Internal vascularity: present Interval growth: No prior available for comparison TI-RADS Category: TR4 ACR Recommendation: TI-RADS 4 nodule. No FNA or follow-up imaging is advised. NODULE 4: Location: Left lower pole Size: 1.2 x 1.1 x 0.7 cm Characteristics: Composition: Solid or almost completely solid, 2 points Echogenicity: Hypoechoic, 2 points (heterogeneous) Shape: Etolu-evmx-ynjp, 0 points Margin: Smooth, 0 points Echogenic foci (add points for all that apply): None, 0 points Internal vascularity: present Interval growth: No prior available for comparison TI-RADS Category: TR4 ACR Recommendation: TI-RADS 4 nodule. Follow up imaging in 1, 2, 3 and 5 years is advised. IMPRESSION: Thyroid nodule(s) are present. Fine needle aspiration is recommended if not previously performed. ACR recommendations are strictly based on the size and imaging appearance at the time of the exam and do not consider stability or previous biopsy results. ASSESSMENT AND PLAN: Karlene Tom is a 43 year old female presenting to endocrinology for evaluation of thyroid nodule. 1. Bilateral Thyroid nodules: - I personally reviewed the images of the thyroid ultrasound and discussed the findings with the patient. - I discussed with the patient the following: The risk of cancer in thyroid nodules. The indication, benefits and risks of doing an FNA as well as the benefits and risks of the alternatives. The procedure, at length. The possible scenarios depending on the cytology: benign, indeterminate, malignant and the respective management. The availability of Afirma for indeterminate cytology. - she agrees to have the FNA done. - TSH normal - she does not take any anticoagulants. Patient would like to have FNA performed and prefers to be done at my office. This will be scheduled accordingly. Follow up to be determined based on cytopathology results Jailene Dave MD [facility] [place] [facility] [place] [facility] Medical Decision Making: Problems: Moderate: New problem with uncertain prognosis Data: Unique test result(s) reviewed: 3+ Independent interpretation of test from other physician/QHCP Risk: Moderate: Decision on minor surgery w/ risk factors Medical Decision Making Level: 4 - Moderate documented in this encounter [facility] 03-18-2024 Note HNO ID: [id number] Author: JANAY SCHULTZ RN Service: ? Author Type: Registered Nurse Type: Progress Notes Filed: 03/18/2024 13:59 Note Text: Patient here for day 5 of Ketamine infusion. Confirmed NPO > 6 hours and has transportation home. PIV initiated on right hand Flushed with no difficulty or signs of infiltration. Patient educated on medications to be administered. Patient verbalized understanding and agreed to proceed with infusions. Monitor alarm limits are set and alarms are audible. 1234 PRN versed given for anxiety 1318 PRN zofran given for nausea Infusions completed and tolerated well by patient with no issues or noted medication side effects. Patient alert and awake reporting no dizziness or nausea at this time. Patient able to tolerate PO fluids. PIV removed and intact - Dressing applied. Patient able to self-ambulate to the lobby and to gravel truck driver for transportation. [facility] 03-18-2024 History of Present illness Narrative Patient here for day 5 of Ketamine infusion. Confirmed NPO > 6 hours and has transportation home. PIV initiated on right hand Flushed with no difficulty or signs of infiltration. Patient educated on medications to be administered. Patient verbalized understanding and agreed to proceed with infusions. Monitor alarm limits are set and alarms are audible. 1234 PRN versed given for anxiety 1318 PRN zofran given for nausea Infusions completed and tolerated well by patient with no issues or noted medication side effects. Patient alert and awake reporting no dizziness or nausea at this time. Patient able to tolerate PO fluids. PIV removed and intact - Dressing applied. Patient able to self-ambulate to the lobby and to gravel truck driver for transportation. documented in this encounter [facility] 03-17-2024 Note HNO ID: [id number] Author: RACHEL LYNN RN Service: ? Author Type: Registered Nurse Type: Progress Notes Filed: 03/17/2024 13:58 Note Text: Patient here for day 4 of Ketamine infusion. Patient educated on medications to be administered. Confirmed NPO > 6 hours and has transportation home. Patient verbalized understanding and agreed to proceed with infusions. Monitor alarm limits are set and alarms are audible Ride in lobby Versed given for anxiety Patient with eyes closed throughout infusion. VS stable Zofran given during flush for nausea Pts infusion complete. Tolerated infusion well. Pt discharged to gravel truck driver in the lobby. [facility] 03-17-2024 History of Present illness Narrative Patient here for day 4 of Ketamine infusion. Patient educated on medications to be administered. Confirmed NPO > 6 hours and has transportation home. Patient verbalized understanding and agreed to proceed with infusions. Monitor alarm limits are set and alarms are audible Ride in lobby Versed given for anxiety Patient with eyes closed throughout infusion. VS stable Zofran given during flush for nausea Pts infusion complete. Tolerated infusion well. Pt discharged to gravel truck driver in the lobby. documented in this encounter [facility] 03-16-2024 Note HNO ID: [id number] Author: JANAY SCHULTZ RN Service: ? Author Type: Registered Nurse Type: Progress Notes Filed: 03/16/2024 13:52 Note Text: Patient here for day 3 of Ketamine infusion. Confirmed NPO > 6 hours and has transportation home. PIV initiated on right wrist - Flushed with no difficulty or signs of infiltration. Patient educated on medications to be administered. Patient verbalized understanding and agreed to proceed with infusions. Monitor alarm limits are set and alarms are audible. 1245 PRN versed given for anxiety 1330 PRN Zofran given for nausea Infusions completed and tolerated well by patient with no issues or noted medication side effects. Patient alert and awake reporting no dizziness or nausea at this time. Patient able to tolerate PO fluids.PIV removed and intact - Dressing applied. Patient able to self-ambulate to the lobby and to gravel truck driver for transportation. [facility] 03-16-2024 History of Present illness Narrative Patient here for day 3 of Ketamine infusion. Confirmed NPO > 6 hours and has transportation home. PIV initiated on right wrist - Flushed with no difficulty or signs of infiltration. Patient educated on medications to be administered. Patient verbalized understanding and agreed to proceed with infusions. Monitor alarm limits are set and alarms are audible. 1245 PRN versed given for anxiety 1330 PRN Zofran given for nausea Infusions completed and tolerated well by patient with no issues or noted medication side effects. Patient alert and awake reporting no dizziness or nausea at this time. Patient able to tolerate PO fluids.PIV removed and intact - Dressing applied. Patient able to self-ambulate to the lobby and to gravel truck driver for transportation. documented in this encounter [facility] [place] 03-15-2024 Note HNO ID: [id number] Author: JANAY SCHULTZ RN Service: ? Author Type: Registered Nurse Type: Progress Notes Filed: 03/15/2024 14:20 Note Text: Patient here for day 2 of Ketamine infusion. Confirmed NPO > 6 hours and has transportation home. PIV initiated on left hand - Flushed with no difficulty or signs of infiltration. Patient educated on medications to be administered. Patient verbalized understanding and agreed to proceed with infusions. Monitor alarm limits are set and alarms are audible. 1315 PRN versed given for anxiety 1345 PRN zofran given for nausea Infusions completed and tolerated well by patient with no issues or noted medication side effects. Patient alert and awake reporting no dizziness or nausea at this time. Patient able to tolerate PO fluids. PIV removed and intact - Dressing applied. Patient able to self-ambulate to the lobby and to gravel truck driver for transportation. [facility] 03-15-2024 History of Present illness Narrative Patient here for day 2 of Ketamine infusion. Confirmed NPO > 6 hours and has transportation home. PIV initiated on left hand - Flushed with no difficulty or signs of infiltration. Patient educated on medications to be administered. Patient verbalized understanding and agreed to proceed with infusions. Monitor alarm limits are set and alarms are audible. 1315 PRN versed given for anxiety 1345 PRN zofran given for nausea Infusions completed and tolerated well by patient with no issues or noted medication side effects. Patient alert and awake reporting no dizziness or nausea at this time. Patient able to tolerate PO fluids. PIV removed and intact - Dressing applied. Patient able to self-ambulate to the [facility] and to gravel truck driver for transportation. documented in this encounter [facility] [place] 03-14-2024 Note HNO ID: [id number] Author: PATIENCE MALCOLM RN Service: ? Author Type: Registered Nurse Type: Progress Notes Filed: 03/14/2024 14:19 Note Text: Patient here for day 1 of Ketamine infusion. Patient educated on medications to be administered. Confirmed NPO > 6 hours and has transportation home - waiting in [facility]. Patient verbalized understanding and agreed to proceed with infusions. Monitor alarm limits are set and alarms are audible. No COSTA, mild NV, or no dizziness today. Pt rates pain 7/10 located in back and legs and describes it as aching/numbness/tingling. 1240 - ketamine infusion initiated 1240 - 8 mg Zofran given 1320 Pts infusion complete. Infusion tolerated but experienced side effects including - anxiety, nausea, AND dizziness. All SE improved with time, 8 mg Zofran given for Nausea. Pt stated she did not like the experience - reported to this RN she did not like the loss of control . . On expressive art therapist during infusion pt was talkative and laughing with staff. Towards end of infusion pt stated she was feeling anxious - this RN offered emotional support and therapeutic communication, as well as education reinforcing potential side effects of ketamine discussed prior to infusion initiation. Discussed dose of PRN Versed for anxiety with remainder of infusions for the week - pt agreeable. 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 Reinforced with pt need for gravel truck driver to be present in 1 lobby. [facility] 03-14-2024 History of Present illness Narrative Patient here for day 1 of Ketamine infusion. Patient educated on medications to be administered. Confirmed NPO > 6 hours and has transportation home - waiting in lobby. Patient verbalized understanding and agreed to proceed with infusions. Monitor alarm limits are set and alarms are audible. No COSTA, mild NV, or no dizziness today. Pt rates pain 7/10 located in back and legs and describes it as aching/numbness/tingling. 1240 - ketamine infusion initiated 1240 - 8 mg Zofran given 1320 Pts infusion complete. Infusion tolerated but experienced side effects including - anxiety, nausea, & dizziness. All SE improved with time, 8 mg Zofran given for Nausea. Pt stated she did not like the experience - reported to this RN she did not like the loss of control . . On expressive art therapist during infusion pt was talkative and laughing with staff. Towards end of infusion pt stated she was feeling anxious - this RN offered emotional support and therapeutic communication, as well as education reinforcing potential side effects of ketamine discussed prior to infusion initiation. Discussed dose of PRN Versed for anxiety with remainder of infusions for the week - pt agreeable. 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 Reinforced with pt need for gravel truck driver to be present in 1 lobby. documented in this encounter [facility] [place] 03-11-2024 Note HNO ID: [id number] Author: JEANNIE CHANDLER MD Service: ? Author Type: Physician Type: Progress Notes Filed: 03/11/2024 14:35 Note Text: Ketamine orders placed. [facility] 03-11-2024 History of Present illness Narrative Ketamine orders placed. documented in this encounter [facility] [place] 03-04-2024 History of Present illness Narrative This note was created using Intentio. Subjective Karlene Tom is a 43 year old female seen today via zoom in follow up for for tethered cord (spina bifida) and myelomeningocele with tethered cord, s/p cord detethering. Lipoma removed at with repair of the myelomeningocele. In 1994 she had another lipoma removed. 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 Huber. She has a lot of back pain and leg pain since she has been a child. She was told that there was nothing they could do about this. She was told she just had to deal with the pain. She has a neurogenic bladder and has to self cath. She also has chronic constipation. She was last seen by us in 2019 at which time she c/o worsening pain since surgery. She c/o low back pain and numbness and tingling in b/l LE. Pt is unable to work. She hasn't been able to move as much. She has neuropathy from the waist down. She feels constant burning in the legs. The upper back is hurting and she has neck pain as well. She is unable to go out. She is only able to be on the feet and walk for 15-20 mins. She has been having dizziness and nausea. She is also c/o the bridge of her nose feeling sore. 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 MRI cervical thoracic and lumbar. No chiari or cervical stenosis. Degenerative changes of the thoracic spine, no significant disc bulging or stenosis MRI lumbar shows Lumbar to look at the tethered cord. Cervical to rule out chiari and spondylosis, 2nd to fine motor skills Thoracic due to mid back pain. The distal cord is displaced dorsally and the conus extends inferiorly to approximately the level of S1, similar to previous. 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 There is no surgical tx for arachnoiditis and further surgical tx for the tethered cord has more chance of harming the patient than helping the patient. She is not a surgical candidate for future detetherings. I spent a total of 25 minutes on the date of the service which included preparing to see the patient, [id number] patient care, completing clinical documentation, obtaining and/or reviewing separately obtained history, counseling and educating the patient/family/caregiver, ordering medications, tests, or procedures, communicating with other HCPs (not separately reported), independently interpreting results (not separately reported), communicating results to the patient/family/caregiver, and care coordination (not separately reported). This virtual visit was conducted via [employer] which is a HIPAA compliant video platform. I received consent from the patient to perform the visit using this platform. The visit required patient-provider interaction for the medical decision making as documented herein. I have communicated my name and active licensure. The patient's identity and physical location were verified at the time of this visit. Either the patient or their legal employer relations representative has been informed of the risks and benefits of -- and alternatives to -- treatment through a remote evaluation and consents to proceed with the evaluation remotely. documented in this encounter [facility] [place] 03-04-2024 Note HNO ID: [id number] Author: VANCE DALEY PA-C Service: ? Author Type: Physician Drill Punch Operator Type: Progress Notes Filed: 03/04/2024 10:34 Note Text: This note was created using Intentio. Subjective Karlene Tom is a 43 year old female seen today via zoom in follow up for for tethered cord (spina bifida) and myelomeningocele with tethered cord, s/p cord detethering. Lipoma removed at with repair of the myelomeningocele. In 1994 she had another lipoma removed. 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 Huber. She has a lot of back pain and leg pain since she has been a child. She was told that there was nothing they could do about this. She was told she just had to deal with the pain. She has a neurogenic bladder and has to self cath. She also has chronic constipation. She was last seen by us in 2019 at which time she c/o worsening pain since surgery. She c/o low back pain and numbness and tingling in b/l LE. Pt is unable to work. She hasn't been able to move as much. She has neuropathy from the waist down. She feels constant burning in the legs. The upper back is hurting and she has neck pain as well. She is unable to go out. She is only able to be on the feet and walk for 15-20 mins. She has been having dizziness and nausea. She is also c/o the bridge of her nose feeling sore. 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 MRI cervical thoracic and lumbar. No chiari or cervical stenosis. Degenerative changes of the thoracic spine, no significant disc bulging or stenosis MRI lumbar shows Lumbar to look at the tethered cord. Cervical to rule out chiari and spondylosis, 2nd to fine motor skills Thoracic due to mid back pain. The distal cord is displaced dorsally and the conus extends inferiorly to approximately the level of S1, similar to previous. 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 There is no surgical tx for arachnoiditis and further surgical tx for the tethered cord has more chance of harming the patient than helping the patient. She is not a surgical candidate for future detetherings. I spent a total of 25 minutes on the date of the service which included preparing to see the patient, [id number] patient care, completing clinical documentation, obtaining and/or reviewing separately obtained history, counseling and educating the patient/family/caregiver, ordering medications, tests, or procedures, communicating with other HCPs (not separately reported), independently interpreting results (not separately reported), communicating results to the patient/family/caregiver, and care coordination (not separately reported). This virtual visit was conducted via [employer] which is a HIPAA compliant video platform. I received consent from the patient to perform the visit using this platform. The visit required patient-provider interaction for the medical decision making as documented herein. I have communicated my name and active licensure. The patient's identity and physical location were verified at the time of this visit. Either the patient or their legal employer relations representative has been informed of the risks and benefits of -- and alternatives to -- treatment through a remote evaluation and consents to proceed with the evaluation remotely. [facility] 03-03-2024 History of Present illness Narrative [facility] [place] March 03, 2024 Karlene Tom is a 43 year old single female, applying for disability, who lives with significant other, a daughter, and a son in [place], [place]. She was referred by Norma Lyman [address] [place] [address]. Consultation requested by Shubham Lyman for an opinion regarding Ms. Karlene Tom, and my final recommendations will be communicated back to the requesting physician by way of shared medical record or letter via [place] mail. PDMP website checked and validated. All prescriptions have been APPROPRIATELY filled. No suspicious activity was identified. 03/02/2024 by Regina Agrawal PA-C Chief complaint: low back pain SUBJECTIVE: Patient presents with complaints of low back pain and leg pain. Has been evaluated by neurology, spine. States that she has had pain since her childhood. Has a history of spina bifida and has undergone multiple surgeries for tethered cord. Last surgery was in 2017. States that she almost in the last surgery - leaked spinal fluid and it was c/b an infection. Reports that she fractured her legs in 2005 and 2007 - fell both times - the leg pain has been worse since then. Reports pain in her low back, neck, legs. Reports intermittent radiating pain from her back down her buttocks, the posterior thighs and the medial legs to the toes. Right>left. Notes a burning sensation in her back. Notes [place] and leg spasms. States that the pain can last for a few days to a few weeks. States that her legs burn when she stands. Has tight hamstrings. Reports numbness or tingling - pins and needles sensations - from her waist down. States that the pain is constant Describes the pain as tearing, stinging, throbbing, sharp, stabbing. Pain severity 03/30 Aggravating factors - movement Alleviating factors - meds, massage, repositioning. Denies any new bowel or bladder dysfunctions - but notes that she self cath - has neurogenic bladder Denies any new balance or dexterity issues - but reports that she will walk sideways and will walk into moore. Reports daily nausea and headaches - behind her eyes or the posterior head. Interventions - chiropractor, PT, TPI, aqua therapy, botox for her bladder every 3-6 months Medications - lyrica, tramadol, cannabis Past medications - gabapentin, flexeril, topamax, ibuprofen Hx of spine surgery: L4-5 Laminectomy for cord untethering - 2017 Hx of sacral lipoma surgery PMH - hx of spina bifida - myelomeningocele repair at , tethered cord x3, arachnoiditis, smoker, urge incontinence, neurogenic bowel and bladder, morbid obesity, vit D def, thyroid nodules, depression and anxiety, chronic UTI Spine Red Flag Karlene Tom has no red flag symptoms. Anesthesia: denies - but needs more Schizophrenia: denies : denies CHF: denies Uncontrolled HTN: denies Recent [place]: denies Arrythmias: denies Afib: denies Hyperthyroid: denies Aortic Stenosis: denies Liver Failure: denies Increased ICP: denies Average pain over the last 7 days: -04/30 Previous pain treatments: physical therapy, aquatherapy, medications, chiropractic manipulation Functional Limitations: The patient has been unable to work since 2011. Time spent reclining is 80 percent of hours/day (includes time in bed, recliner, sofa, ottoman, etc.). Wellness: How would you describe your diet: poor - eating 1x day. Drinking water, coffee How many days a week do you exercise: denies How many hours do you sleep a night: no sleep schedule - might sleep in 3 hour increments. Emotional Symptoms: include sadness, depression, crying spells, anxiety, frustration, irritability, and anger The patient has loss of interest, energy, libido, appetite, and sleep The patient has passive thoughts of suicide, but denies plan and intent. Non-medical stresses: Include relationship conflicts, financial problems, legal problems, and medical problems Family involvement: is appropriate/helpful and supportive Financial Status: has applied for disability income Allergies: Reviewed in the EMR Current Medications: Reviewed in the EMR PAST MEDICAL HISTORY Diagnosis Date Abnormal Pap smear of cervix LEEP History of urinary self-catheterization 05/26/2017 ISC Morbid obesity (HCC) depression Spina bifida (HCC) PAST SURGICAL HISTORY Procedure Laterality Date COLPOSCOPY CERVIX UPPER/ADJACENT VAGINA 05/25 Colposcopy CONIZATION CERVIX W/WO D&C RPR ELTRD EXC 07/25 LEEP-Cervix PAST SURGICAL HISTORY OF 04/26 r leg surgery PAST SURGICAL HISTORY OF 2006 pins removed - r leg PAST SURGICAL HISTORY OF 2002 or 2003 stomach revision Psychiatric History: Depression and anxiety Social History Tobacco Use Smoking status: Every Day Packs/day: 1.00 Years: 20.00 Additional pack years: 0.00 Total pack years: 20.00 Types: Cigarettes Last attempt to quit: 03/21/2015 Years since quittin.9 Smokeless tobacco: Never Substance Use Topics Alcohol use: No Drug use: Yes Types: Marijuana Comment: occasional gummies at HS Substance use: She reports current use of 5 cig/day and does wish to quit. @[email or web address]@ describes current alcohol consumption as 3x year Drug use: Current drug use includes cannabis . Family History FAMILY HISTORY Problem Relation Age of Onset Cancer Mother skin other (macular degenertion) Mother Mental illness Mother Cancer Father bladder Hypertension Father other (pre diabetes) Father other (pe) Father Ischemic Heart Disease Father Breast Cancer Paternal Grandmother ROS was positive for: Fatigue Difficulty walking Back pain Neck pain Leg pain All of the other systems reviewed were negative. OBJECTIVE: PHYSICAL EXAM: GENERAL APPEARANCE: Well appearing, well-hydrated, well nourished and alert SKIN: Head, neck, trunk, and extremities dry, intact and without lesions NECK: negative findings LUNGS: even and non-labored breathing, normal chest excursion HEART: Edema: No MUSCULOSKELETAL: antalgic gait NEURO/PSYCH: cranial nerves 2-12 intact, labile mood - crying, mental status intact IMAGING: MRI thoracic, cervical, lumbar 02/03/24 - 1. Stable postoperative changes with unchanged position and morphology of the conus, no abnormal cord signal. 2. Stable mild degenerative changes. 3. Incidental right thyroid nodule, not well visualized previously and incompletely evaluated on the current exam. ASSESSMENT: Nicotine dependence Cannabis use Tethered cord (hcc) Hx of spina bifida Chronic bilateral low back pain, unspecified whether sciatica present (primary encounter diagnosis) Hx of laminectomy H/o laminectomy Chronic pain syndrome Anxiety and depression Patient is a 43 year old female who presents with chronic pain and a history of spina bifida with multiple surgeries. Has tried conservative treatments without much pain relief. Discussed the comprehensive pain recovery program. Discussed ketamine infusions - discussed potential risks and benefits. Patient verbalized understanding. Discussed the nutritional program, activity program, sleep program. Explained that the ketamine treatment program has over a year long wait time. Explained that the ketamine program is not accepting new patients at this time but that we can add them to the wait list. Encouraged the patient to seek ketamine treatment at other local clinics if desired. Discussed the importance of optimizing diet, exercise and sleep. Eat 3 healthy meals each day, during the day, minimize snacking and sugar. Drink plenty of fluids. Do some kind of physical activity for 20-30 mins each day. Discussed good sleep hygiene and the importance of sleeping on a schedule. PLAN: Further evaluation: continue with neurology Nutrition: work to optimize Therapies: start HEP Sleep: work to optimize Medications: continue with current prescribed medications Interventions: none Infusions: yes - ketamine consult placed 8. Pain Psychology: yes - consult placed 9. consult to pain psychiatry - patient has been told that she might have bipolar disorder and might need medications. Review, Ask, Review: yes Follow-up: as needed Regina Agrawal PA-C I spent a total of 50 minutes on the date of the service which included preparing to see the patient, [id number] patient care, completing clinical documentation, obtaining and/or reviewing separately obtained history, performing a medically appropriate examination, counseling and educating the patient/family/caregiver, and ordering medications, tests, or procedures. Important Patient Information: 1. To schedule Pain Recovery appointments or post-injection office visits, please call: [phone] 2. The nursing staff and medical assistants are an integral part of your pain recovery team and will be handling your phone calls and inquiries. 3. Your study results and treatment plan will be discussed during a follow-up appointment. If you do not have a follow-up appointment and wish to discuss any issues directly with me, please call: [phone] to set-up an appointment. 4. MyChart is best used for refill requests or yes or no questions. Anything more complicated will likely require a follow-up appointment that you can schedule by [phone]. 5. It is the practice of the Department to not fill disability or any other insurance-related forms/documentation. All of the office notes, study results, and other documentation as part of your evaluation will be available to you and to your Primary Care Physician (PCP). Use of this material to complete such forms will be at the discretion of your PCP/referring physician. 6. If you are scheduled for a ketamine infusion, you will be contacted regarding specific scheduling instructions in the future by our department. There is no need to contact our department regarding the scheduling process or your estimated wait; you will be contacted once there is an opening. documented in this encounter [facility] [place] 03-03-2024 Note HNO ID: [id number] Author: REGINA AGRAWAL PA-C Service: ? Author Type: Physician Drill Punch Operator Type: Progress Notes Filed: 03/03/2024 13:57 Note Text: [facility] [place] March 03, 2024 Karlene Tom is a 43 year old single female, applying for disability, who lives with significant other, a daughter, and a son in [place], [place]. She was referred by Norma Lyman [address] [place] [address]. Consultation requested by Shubham Lyman for an opinion regarding Ms. Karlene Tom, and my final recommendations will be communicated back to the requesting physician by way of shared medical record or letter via [place] mail. PDMP website checked and validated. All prescriptions have been APPROPRIATELY filled. No suspicious activity was identified. 03/02/2024 by Regina Agrawal PA-C Chief complaint: low back pain SUBJECTIVE: Patient presents with complaints of low back pain and leg pain. Has been evaluated by neurology, spine. States that she has had pain since her childhood. Has a history of spina bifida and has undergone multiple surgeries for tethered cord. Last surgery was in 2017. States that she almost in the last surgery - leaked spinal fluid and it was c/b an infection. Reports that she fractured her legs in 2005 and 2007 - fell both times - the leg pain has been worse since then. Reports pain in her low back, neck, legs. Reports intermittent radiating pain from her back down her buttocks, the posterior thighs and the medial legs to the toes. Right>left. Notes a burning sensation in her back. Notes [place] and leg spasms. States that the pain can last for a few days to a few weeks. States that her legs burn when she stands. Has tight hamstrings. Reports numbness or tingling - pins and needles sensations - from her waist down. States that the pain is constant Describes the pain as tearing, stinging, throbbing, sharp, stabbing. Pain severity 03/30 Aggravating factors - movement Alleviating factors - meds, massage, repositioning. Denies any new bowel or bladder dysfunctions - but notes that she self cath - has neurogenic bladder Denies any new balance or dexterity issues - but reports that she will walk sideways and will walk into moore. Reports daily nausea and headaches - behind her eyes or the posterior head. Interventions - chiropractor, PT, TPI, aqua therapy, botox for her bladder every 3-6 months Medications - lyrica, tramadol, cannabis Past medications - gabapentin, flexeril, topamax, ibuprofen Hx of spine surgery: L4-5 Laminectomy for cord untethering - 2017 Hx of sacral lipoma surgery PMH - hx of spina bifida - myelomeningocele repair at , tethered cord x3, arachnoiditis, smoker, urge incontinence, neurogenic bowel and bladder, morbid obesity, vit D def, thyroid nodules, depression and anxiety, chronic UTI Spine Red Flag Karlene Tom has no red flag symptoms. Anesthesia: denies - but needs more Schizophrenia: denies : denies CHF: denies Uncontrolled HTN: denies Recent [place]: denies Arrythmias: denies Afib: denies Hyperthyroid: denies Aortic Stenosis: denies Liver Failure: denies Increased ICP: denies Average pain over the last 7 days: 7-04/30 Previous pain treatments: physical therapy, aquatherapy, medications, chiropractic manipulation Functional Limitations: The patient has been unable to work since 2011. Time spent reclining is 80 percent of hours/day (includes time in bed, recliner, sofa, ottoman, etc.). Wellness: How would you describe your diet: poor - eating 1x day. Drinking water, coffee How many days a week do you exercise: denies How many hours do you sleep a night: no sleep schedule - might sleep in 3 hour increments. Emotional Symptoms: include sadness, depression, crying spells, anxiety, frustration, irritability, and anger The patient has loss of interest, energy, libido, appetite, and sleep The patient has passive thoughts of suicide, but denies plan and intent. Non-medical stresses: Include relationship conflicts, financial problems, legal problems, and medical problems Family involvement: is appropriate/helpful and supportive Financial Status: has applied for disability income Allergies: Reviewed in the EMR Current Medications: Reviewed in the EMR PAST MEDICAL HISTORY Diagnosis Date Abnormal Pap smear of cervix LEEP History of urinary self-catheterization 05/26/2017 ISC Morbid obesity (HCC) depression Spina bifida (HCC) PAST SURGICAL HISTORY Procedure Laterality Date COLPOSCOPY CERVIX UPPER/ADJACENT VAGINA 05/25 Colposcopy CONIZATION CERVIX W/WO DANDC RPR ELTRD EXC 07/25 LEEP-Cervix PAST SURGICAL HISTORY OF 04/26 r leg surgery PAST SURGICAL HISTORY OF 2006 pins removed - r leg PAST SURGICAL HISTORY OF 2002 or 2003 stomach revision Psychiatr (more content not included)... [facility] 02-22-2024 History of Present illness Narrative Karlene Tom is a 43 year old female Chief complaint: Rx Refills and Thyroid Problem (4 nodules. Neck [pain ) Subjective HPI: US thryoid, patient with thyroid nodules. Referred to endocrinology to consider FNA. C/o headache forehead, daily, continuous, worsen with light exposure, not throbbing. Also fatigue, dizziness, nausea, decreased appetite for past 3-4 month, daily, improves with rest, treated with Treated with ibuprofen 600 mg 3 tablets daily, aleve 3 tablet daily. Tramadol 50 mg 3 times daily, and pregabalin H/o spina bifida and tethered cord with myelomeningocele repair at and reviion on 1994 and 2016, complicated with neurogenic bowel and bladder. Follow up Neurology, last appointment 01/19/24 H/o neurogenic bladder had botox injection last week. Prescribed ciprofloxacin and reports had mouth and body itching Follow up Urology H/o chronic pain in low back pain and leg pain chronic, treated with pregabalin and tramadol. Follow up neurology and neurosurgery. [facility] Medical Records reviewed. Medical records reviewed. Shon Angel [employer], prescribing tramadol for spina bifida pain until evaluation with pain management. Review of Systems Constitutional: Positive for fatigue. Negative for chills, fever and unexpected weight change. No recent history of trauma, surgery, infection or malignancy. HENT: Positive for sore throat and voice change. Negative for congestion, rhinorrhea and trouble swallowing. Respiratory: Positive for cough. Negative for shortness of breath. Cardiovascular: Negative for chest pain. Gastrointestinal: Positive for nausea. Negative for abdominal pain and vomiting. Positive heartburn and reflux. Genitourinary: Negative for pelvic pain. Musculoskeletal: Positive for arthralgias, back pain and myalgias. Neurological: Positive for headaches. Psychiatric/Behavioral: Negative for dysphoric mood and sleep disturbance. The patient is not nervous/anxious. Objective BP 128/80 Pulse 75 Temp 36.7 C (98.1 F) Ht 169.4 cm (5' 6.69 ) Wt 128.7 kg (283 lb 11.7 oz) LMP 02/03/2024 (Approximate) SpO2 97% BMI 44.85 kg/m BMI Readings from Last 3 Encounters: 02/22/24 : 44.85 kg/m 01/25/24 : 44.88 kg/m 01/19/24 : 45.34 kg/m Last Wt 02/22/24 : 128.7 kg (283 lb 11.7 oz) 01/25/24 : 128.8 kg (283 lb 15.2 oz) 01/19/24 : 130.1 kg (286 lb 13.1 oz) Last BP 02/22/24 : 128/80 01/25/24 : 110/74 01/19/24 : 130/61 Physical Exam Constitutional: Appearance: Normal appearance. HENT: Head: Atraumatic. Cardiovascular: Rate and Rhythm: Normal rate and regular rhythm. Heart sounds: Normal heart sounds. No murmur heard. Pulmonary: Effort: Pulmonary effort is normal. Breath sounds: Normal breath sounds. Abdominal: Palpations: Abdomen is soft. There is no mass. Tenderness: There is no abdominal tenderness. There is no guarding or rebound. Neurological: Mental Status: She is alert. Cranial Nerves: Cranial nerves 2-12 are intact. Motor: Weakness present. Gait: Gait abnormal. Comments: Weakness in lower extremities. Antalgic gait. Psychiatric: Mood and Affect: Mood normal. Behavior: Behavior normal. No results found for: HBA1C , HBA0 HBA0=Estimated average glucose Lab Results Component Value Date CHOL 172 04/28/2006 CHOL 178.0 11/21/2004 HDL 46 04/28/2006 HDL 51 11/21/2004 LDL 104 04/28/2006 LDL 105 11/21/2004 TG 111 04/28/2006 TG 111 11/21/2004 Lab Results Component Value Date GLUC 95 06/17/2017 BUN 7 (L) 06/17/2017 CREAT 0.70 06/17/2017 NA 137 06/17/2017 K 4.0 06/17/2017 CHLOR 101 06/17/2017 CO2 25 06/17/2017 TPROT 6.1 06/10/2017 ALB 3.3 (L) 06/10/2017 CA 8.1 (L) 06/17/2017 ALKPHOS 59 06/10/2017 TBILI 0.2 06/10/2017 AST 12 06/10/2017 ALT 13 06/10/2017 No results found for: PCRAT , UALBCR PCRAT=Protein Creatinine Ratio; UABCR=Albumin Creat Ratio Lab Results Component Value Date TSH 2.590 06/11/2017 TSH 1.55 11/15/2007 TSH 2.15 04/28/2006 FREET4 1.16 11/21/2004 Impression/Recommendations Social History Social History Narrative Not on file Karlene Tom is a 43 year old female - Obesity Body mass index is 44.85 kg/m . - H/o spina bifida and tethered cord with myelomeningocele repair at and reviion on 1994 and 2016, - Chronic pain in low back pain and leg pain chronic, treated with pregabalin and tramadol. Follow up Neurology, last appointment 01/19/24 - Neurogenic bladder had botox injection last week. Prescribed ciprofloxacin and reports had mouth and body itching Follow up Urology - Urinary freqeunt suspicious of UTI, UA with trace of leuk sterase. Addressed today: - US thryoid, patient with thyroid nodules. Referred to endocrinology to consider FNA. - Headache forehead, daily, continuous, worsen with light exposure, not throbbing. Also fatigue, dizziness, nausea, decreased appetite for past 3-4 month, daily, improves with rest, treated with ibuprofen 600 mg 3 tablets daily, aleve 3 tablet daily. Tramadol 50 mg 3 times daily, and pregabalin Question of medication overuse headache. Plan: Continue ibuprofen as needed for headache, but < 3 dys/weel and metoclopramide 10 mg 3 times daily as needed for nausea. Start preventive treatment with topiramate 25 mg 1-2 tablets at night. If persistent refer to Neurology. Start omeprazole 20 mg dialy at least 2 weeks. Complete visit with endocrinology. Order TSH, Free T4, TPO ab Diagnoses and all orders for this visit: Multiple thyroid nodules - THYROID STIMULATING HORMONE; Future - T4 FREE/FREE THYROXINE; Future - THYROID PEROXIDASE ANTIBODY; Future Chronic bilateral low back pain, unspecified whether sciatica present - traMADol (ULTRAM) 50 mg tablet; Take 1 tablet by mouth three times a day for 28 days. - pregabalin (LYRICA) 75 mg capsule; Take 1 capsule by mouth three times a day for 28 days. Heartburn - omeprazole (PRILOSEC) 20 mg capsule; Take 1 capsule by mouth once daily. Nausea - metoclopramide HCl (REGLAN) 10 mg tablet; Take 1 tablet by mouth three times a day. Chronic daily headache - topiramate (TOPAMAX) 25 mg tablet; Take 1-2 tablets by mouth daily at bedtime. Return in about 4 months (around 06/23/2024), or if symptoms worsen or fail to improve, for INPERSON, chornic pain. Aidan Forrester MD The documentation from current visit was copied and pasted from last visit with the patient and reviewed and edited as necessary for today's visit. documented in this encounter [facility] 02-22-2024 Note HNO ID: [id number] Author: AIDAN MONTENEGRO MD Service: ? Author Type: Physician Type: Progress Notes Filed: 02/22/2024 17:44 Note Text: Karlene Tom is a 43 year old female Chief complaint: Rx Refills and Thyroid Problem (4 nodules. Neck [pain ) Subjective HPI: US thryoid, patient with thyroid nodules. Referred to endocrinology to consider FNA. C/o headache forehead, daily, continuous, worsen with light exposure, not throbbing. Also fatigue, dizziness, nausea, decreased appetite for past 3-4 month, daily, improves with rest, treated with Treated with ibuprofen 600 mg 3 tablets daily, aleve 3 tablet daily. Tramadol 50 mg 3 times daily, and pregabalin H/o spina bifida and tethered cord with myelomeningocele repair at and reviion on 1994 and 2016, complicated with neurogenic bowel and bladder. Follow up Neurology, last appointment 01/19/24 H/o neurogenic bladder had botox injection last week. Prescribed ciprofloxacin and reports had mouth and body itching Follow up Urology H/o chronic pain in low back pain and leg pain chronic, treated with pregabalin and tramadol. Follow up neurology and neurosurgery. [facility] Medical Records reviewed. Medical records reviewed. Shon Angel [employer], prescribing tramadol for spina bifida pain until evaluation with pain management. Review of Systems Constitutional: Positive for fatigue. Negative for chills, fever and unexpected weight change. No recent history of trauma, surgery, infection or malignancy. HENT: Positive for sore throat and voice change. Negative for congestion, rhinorrhea and trouble swallowing. Respiratory: Positive for cough. Negative for shortness of breath. Cardiovascular: Negative for chest pain. Gastrointestinal: Positive for nausea. Negative for abdominal pain and vomiting. Positive heartburn and reflux. Genitourinary: Negative for pelvic pain. Musculoskeletal: Positive for arthralgias, back pain and myalgias. Neurological: Positive for headaches. Psychiatric/Behavioral: Negative for dysphoric mood and sleep disturbance. The patient is not nervous/anxious. Objective BP 128/80 Pulse 75 Temp 36.7 ?C (98.1 ?F) Ht 169.4 cm (5' 6.69 ) Wt 128.7 kg (283 lb 11.7 oz) LMP 02/03/2024 (Approximate) SpO2 97% BMI 44.85 kg/m? BMI Readings from Last 3 Encounters: 02/22/24 : 44.85 kg/m? 01/25/24 : 44.88 kg/m? 01/19/24 : 45.34 kg/m? Last Wt 02/22/24 : 128.7 kg (283 lb 11.7 oz) 01/25/24 : 128.8 kg (283 lb 15.2 oz) 01/19/24 : 130.1 kg (286 lb 13.1 oz) Last BP 02/22/24 : 128/80 01/25/24 : 110/74 01/19/24 : 130/61 Physical Exam Constitutional: Appearance: Normal appearance. HENT: Head: Atraumatic. Cardiovascular: Rate and Rhythm: Normal rate and regular rhythm. Heart sounds: Normal heart sounds. No murmur heard. Pulmonary: Effort: Pulmonary effort is normal. Breath sounds: Normal breath sounds. Abdominal: Palpations: Abdomen is soft. There is no mass. Tenderness: There is no abdominal tenderness. There is no guarding or rebound. Neurological: Mental Status: She is alert. Cranial Nerves: Cranial nerves 2-12 are intact. Motor: Weakness present. Gait: Gait abnormal. Comments: Weakness in lower extremities. Antalgic gait. Psychiatric: Mood and Affect: Mood normal. Behavior: Behavior normal. No results found for: HBA1C , HBA0 HBA0=Estimated average glucose Lab Results Component Value Date CHOL 172 04/28/2006 CHOL 178.0 11/21/2004 HDL 46 04/28/2006 HDL 51 11/21/2004 LDL 104 04/28/2006 LDL 105 11/21/2004 TG 111 04/28/2006 TG 111 11/21/2004 Lab Results Component Value Date GLUC 95 06/17/2017 BUN 7 (L) 06/17/2017 CREAT 0.70 06/17/2017 NA 137 06/17/2017 K 4.0 06/17/2017 CHLOR 101 06/17/2017 CO2 25 06/17/2017 TPROT 6.1 06/10/2017 ALB 3.3 (L) 06/10/2017 CA 8.1 (L) 06/17/2017 ALKPHOS 59 06/10/2017 TBILI 0.2 06/10/2017 AST 12 06/10/2017 ALT 13 06/10/2017 No results found for: PCRAT , UALBCR PCRAT=Protein Creatinine Ratio; UABCR=Albumin Creat Ratio Lab Results Component Value Date TSH 2.590 06/11/2017 TSH 1.55 11/15/2007 TSH 2.15 04/28/2006 FREET4 1.16 11/21/2004 Impression/Recommendations Social History Social History Narrative Not on file Karlene Tom is a 43 year old female - Obesity Body mass index is 44.85 kg/m?. - H/o spina bifida and tethered cord with myelomeningocele repair at and reviion on 1994 and 2016, - Chronic pain in low back pain and leg pain chronic, treated with pregabalin and tramadol. Follow up Neurology, last appointment 01/19/24 - Neurogenic bladder had botox injection last week. Prescribed ciprofloxacin and reports had mouth and body itching Follow up Urology - Urinary freqeunt suspicious of UTI, UA with trace of leuk sterase. Addressed today: - US thryoid, patient with thyroid nodules. Referred to endocrinology (more content not included)... [facility] 02-16-2024 Telephone encounter Note Called patient, verified . Gave message below. Patient stated that she is not having stomach issues. She has nausea, not sleeping, hard time swallowing and raspy voice from the thyroid nodules. Patient does have an appointment with you on 02/22/2024. Routed to PCP. [facility] 02-16-2024 Miscellaneous Notes Called patient, verified . Gave message below. Patient stated that she is not having stomach issues. She has nausea, not sleeping, hard time swallowing and raspy voice from the thyroid nodules. Patient does have an appointment with you on 02/22/2024. Routed to PCP. Please instruct patient to use an over the counter medication for stomach problems like Peptobismol or antacid like Tums or Mylanta or similar. If no improvement patient should make an office visit to complete an evaluation and decide managmeent. Called and reviewed message with patient ,she stated that she has been very nauseated and coughing due to her thyroid , she is asking if Dr Boo would call in something for the nausea. Called and reviewed patient results, please assist patient in scheduling an OV with Endo Thank you. Received notice abtopu actionable finding in US thryoid, patient with thyroid nodules. Please inform patient that is recommended to have referral to manager telecom to complete an evaluation and decide management. Referral placed. Instruct patient how to schedule appointment. Thanks. ----- Message from Alexis Felix PA-C sent at 02/11/2024 1:28 PM EDT ----- Regarding: FNA Dr. Forrester, My name is Alexis Felix PA-C and I'm an Advanced Practice Provider in the Actionable Findings clinic here at the [facility]. In my quality review, I see that this patient had thyroid nodules. FNA was recommended. Is that something you could help arrange or would you like us in our Actionable Findings department reach out to her for possible outreach? Alexis Felix PA-C February 11, 2024 1:28 PM documented in this encounter [facility] 02-15-2024 Telephone encounter Note I sent her a my chart message as soon as this was reported. I asked her before the testing was done to contact her PCP regarding this testing being done and she would need to contact them for the further recs. I sent her a message to this effect after the testing resulted again and sent a letter to her pcp. Consult signed [facility] 02-15-2024 Miscellaneous Notes I sent her a my chart message as soon as this was reported. I asked her before the testing was done to contact her PCP regarding this testing being done and she would need to contact them for the further recs. I sent her a message to this effect after the testing resulted again and sent a letter to her pcp. Consult signed Called patient via phone. Per pt, her ultra sound results suggest a biopsy. She states that Vance KLINE ordered the US and so patient would like to know next steps. She states that she has been dizzy and feeling poorly for the past 2 months- she is concerned she has cancer. She also has been having trouble swallowing. This RN responded with HEART and reviewed with patient symptoms that would require her to be seen in the ED such as SOB/ trouble breathing. Message sent to Vance KLINE and Dr. Huber for review. General Call Caller : Pt Contact Reason for Call : Pt had her US THYROID/PARATHYROID test done today. She would like to discuss her next steps as she was told she needs to have her thyroid biopsied. Patient requesting return call ? Yes documented in this encounter [facility] 02-13-2024 Telephone encounter Note [facility] Medical Records reviewed. Medical records reviewed. Shon Angel [employer], prescribing tramadol for spina bifida pain until evaluation with pain management. 04/07/23 UDS negative. 12/22/23 UDS positive THC, rest negative. 04/28/23 EMG of LE: normal. No evidence of [employer] or radiculopathy. 05/2023 requested to have student loans deferred due to disability. 06/10/22 Colonoscopy biopsy: with small hyperplastic polyp, 07/31/21 Pap NIL, HPV neg. Problem list and medication list updated as appropriate. [facility] 02-13-2024 Miscellaneous Notes [facility] Medical Records reviewed. Medical records reviewed. Shon Angel [employer], prescribing tramadol for spina bifida pain until evaluation with pain management. 04/07/23 UDS negative. 12/22/23 UDS positive THC, rest negative. 04/28/23 EMG of LE: normal. No evidence of [employer] or radiculopathy. 05/2023 requested to have student loans deferred due to disability. 06/10/22 Colonoscopy biopsy: with small hyperplastic polyp, 07/31/21 Pap NIL, HPV neg. Problem list and medication list updated as appropriate. documented in this encounter [facility] 02-12-2024 Telephone encounter Note Please instruct patient to use an over the counter medication for stomach problems like Peptobismol or antacid like Tums or Mylanta or similar. If no improvement patient should make an office visit to complete an evaluation and decide managmeent. [facility] 02-12-2024 Telephone encounter Note Called and reviewed message with patient ,she stated that she has been very nauseated and coughing due to her thyroid , she is asking if Dr Boo would call in something for the nausea. [place] [id number] Telephone encounter Note Called and reviewed patient results, please assist patient in scheduling an OV with Endo Thank you. [facility] 02-12-2024 Telephone encounter Note Received notice abtopu actionable finding in US thryoid, patient with thyroid nodules. Please inform patient that is recommended to have referral to manager telecom to complete an evaluation and decide management. Referral placed. Instruct patient how to schedule appointment. Thanks. [facility] 02-12-2024 Telephone encounter Note ----- Message from Alexis Felix PA-C sent at 02/11/2024 1:28 PM EDT ----- Regarding: FNA Dr. Forrester, My name is Alexis Felix PA-C and I'm an Advanced Practice Provider in the Actionable Findings clinic here at the [facility]. In my quality review, I see that this patient had thyroid nodules. FNA was recommended. Is that something you could help arrange or would you like us in our Actionable Findings department reach out to her for possible outreach? Alexis Felix PA-C February 11, 2024 1:28 PM [facility] 02-12-2024 Telephone encounter Note Called patient via phone. Per pt, her ultra sound results suggest a biopsy. She states that Vance KLINE ordered the US and so patient would like to know next steps. She states that she has been dizzy and feeling poorly for the past 2 months- she is concerned she has cancer. She also has been having trouble swallowing. This RN responded with HEART and reviewed with patient symptoms that would require her to be seen in the ED such as SOB/ trouble breathing. Message sent to Vance KLINE and Dr. Huber for review. [facility] 02-11-2024 Telephone encounter Note General Call Caller : Pt Contact Reason for Call : Pt had her US THYROID/PARATHYROID test done today. She would like to discuss her next steps as she was told she needs to have her thyroid biopsied. Patient requesting return call ? Yes [facility] 02-08-2024 History of Present illness Narrative Radiology Service Progress Note PATIENT NAME: Karlene Tom DATE OF SERVICE: February 08, 2024 TIME: 12:23 PM PATIENT IDENTITY VERIFICATION COMPLETED USING TWO (2) IDENTIFIERS: Name and Date of confirmed by patient verbally and Name and Date of confirmed by identification band. FALL SCREENING: Has the patient had 2 falls in the last year or 1 fall with injury or currently using an Ambulatory Assistive Device (Walker, Cane, Wheelchair, Crutches, etc.)? No PATIENT GENDER DATA: Female. status: : No status: NO. PATIENT RELEVANT IMPLANT DATA REVIEWED: Not Applicable PATIENT PRESENTS WITH AN IMPLANTABLE OR ATTACHED BLAST [employer] SUPERVISOR: No RADIOLOGY DEPARTMENT: Ultrasound PERIPHERAL IV DATA: Not applicable Thyroid US done SIGNED BY: Norma Pearson RDMS, RVT February 08, 2024 12:23 PM documented in this encounter [facility] 02-08-2024 Note HNO ID: [id number] Author: NORMA PERASON RDMS, RVT Service: ? Author Type: Final Armature Tester Type: Progress Notes Filed: 02/08/2024 12:24 Note Text: Radiology Service Progress Note PATIENT NAME: Karlene Tom DATE OF SERVICE: February 08, 2024 TIME: 12:23 PM PATIENT IDENTITY VERIFICATION COMPLETED USING TWO (2) IDENTIFIERS: Name and Date of confirmed by patient verbally and Name and Date of confirmed by identification band. FALL SCREENING: Has the patient had 2 falls in the last year or 1 fall with injury or currently using an Ambulatory Assistive Device (Walker, Cane, Wheelchair, Crutches, etc.)? No PATIENT GENDER DATA: Female. status: : No status: NO. PATIENT RELEVANT IMPLANT DATA REVIEWED: Not Applicable PATIENT PRESENTS WITH AN IMPLANTABLE OR ATTACHED BLAST [employer] SUPERVISOR: No RADIOLOGY DEPARTMENT: Ultrasound PERIPHERAL IV DATA: Not applicable Thyroid US done SIGNED BY: Norma Pearson RDMS, ERIK February 08, 2024 12:23 PM [facility] 02-08-2024 History of Present illness Narrative Subjective Patient ID: Karlene Tom is a 43 y.o. female who presents for Botox POV . Presents for follow up of cysto with botox 200 units. States she has had significant benefit from this. Wearing period underwear for management. Denies dysuria. PMH significant for spina bifida. Review of Systems All other systems reviewed and are negative. Objective Physical Exam Vitals reviewed. Alert and oriented x3 Moist mucous membranes Breathes easily on room air Abdomen soft, nondistended. Obese No edema No scleral icterus No focal neurological deficits Appears stated age, no acute distress Assessment/Plan Diagnoses and all orders for this visit: Urge incontinence Pleased with response to botox. Previously receiving every 4-5 months. Plan for repeat admin in early Jun. KATARZYNA Castorena 02/08/24 10:16 AM documented in this encounter [facility] Work Phone: 02-04-2024 Note HNO ID: [id number] Author: AIDAN MONTENEGRO MD Service: ? Author Type: Physician Type: Progress Notes Filed: 02/04/2024 14:01 Note Text: Received noticed of incidental right thyroid nodule, not well visualized previously and incompletely evaluated on the current exam during MRI evaluation. They contacted the patient and ordered the recommended testing of US of the thyroid/parathyroid. [facility] 01-25-2024 Note Addended by: AIDAN BOBBY on: 01/25/2024 05:41 PM Modules accepted: Orders [facility] 01-25-2024 Miscellaneous Notes Addended by: AIDAN MONTENEGRO on: 01/25/2024 05:41 PM Modules accepted: Orders documented in this encounter [facility] 01-25-2024 Instructions Aidan Montenegro MD - 01/25/2024 2:44 PM EDT Request records of office visit with Silvina Cruz [address] [place] [address] - Shon Shamtamia [address] [place] [address] documented in this encounter [facility] 01-25-2024 History of Present illness Narrative Karlene Tom is a 43 year old female Chief complaint: Follow Up (Lab results/T3, states she put a lot of weight on quickly temp goes down instead of up when sick. ) and UTI (Bladder pain, strong odor.) Subjective HPI: H/o spina bifida and tethered cord with myelomeningocele repair at and reviion on 1994 and 2016, complicated with neurogenic bowel and bladder. Follow up Neurology, last appointment 01/19/24 H/o neurogenic bladder had botox injection last week. Prescribed ciprofloxacin and reports had mouth and body itching Follow up Urology H/o chronic pain in low back pain and leg pain chronic, treated with pregabalin and tramadol. Follow up neurology and neurosurgery. Filled Written ID Drug QTY Days Prescriber RX # Dispenser Refill Daily Dose* Pymt Type ROUGE PRESSER 12/22/2023 12/22/2023 1 Tramadol Hcl 50 Mg Tablet 90.00 30 Fa n [id number] Rit (7038) 0 30.00 MME Medicaid [place] 12/22/2023 12/22/2023 1 Pregabalin 75 Mg Capsule 90.00 30 Fa n [id number] Rit (7038) 0 1.51 LME Medicaid [place] 11/12/2023 11/12/2023 1 Pregabalin 75 Mg Capsule 90.00 30 Brionna [facility] [id number] Rit (1026) 0 1.51 LME [place] Silvina [facility] [address] [place] [address] - Shon Shammo [address] [place] [address] Review of Systems Constitutional: Negative for fever and unexpected weight change. Respiratory: Negative for cough and shortness of breath. Cardiovascular: Negative for chest pain. Gastrointestinal: Negative for abdominal pain, nausea and vomiting. Genitourinary: Negative for pelvic pain. Musculoskeletal: Positive for arthralgias, back pain and myalgias. Neurological: Negative for headaches. Objective BP 110/74 Pulse 85 Temp 36.8 C (98.2 F) Wt 128.8 kg (283 lb 15.2 oz) LMP 01/04/2024 SpO2 97% BMI 44.88 kg/m BMI Readings from Last 3 Encounters: 01/25/24 : 44.88 kg/m 01/19/24 : 45.34 kg/m 01/06/24 : 43.19 kg/m Last Wt 01/25/24 : 128.8 kg (283 lb 15.2 oz) 01/19/24 : 130.1 kg (286 lb 13.1 oz) 01/06/24 : 125.1 kg (275 lb 12.7 oz) Last BP 01/25/24 : 110/74 01/19/24 : 130/61 01/06/24 : 114/78 Physical Exam Constitutional: Appearance: Normal appearance. HENT: Head: Atraumatic. Cardiovascular: Rate and Rhythm: Normal rate and regular rhythm. Heart sounds: Normal heart sounds. No murmur heard. Pulmonary: Effort: Pulmonary effort is normal. Breath sounds: Normal breath sounds. Abdominal: Palpations: Abdomen is soft. There is no mass. Tenderness: There is no abdominal tenderness. There is no guarding or rebound. Neurological: Mental Status: She is alert. Cranial Nerves: Cranial nerves 2-12 are intact. Motor: Weakness present. Gait: Gait abnormal. Comments: Weakness in lower extremities. Antalgic gait. Psychiatric: Mood and Affect: Mood normal. Behavior: Behavior normal. No results found for: HBA1C , HBA0 HBA0=Estimated average glucose Lab Results Component Value Date CHOL 172 04/28/2006 CHOL 178.0 11/21/2004 HDL 46 04/28/2006 HDL 51 11/21/2004 LDL 104 04/28/2006 LDL 105 11/21/2004 TG 111 04/28/2006 TG 111 11/21/2004 Lab Results Component Value Date GLUC 95 06/17/2017 BUN 7 (L) 06/17/2017 CREAT 0.70 06/17/2017 NA 137 06/17/2017 K 4.0 06/17/2017 CHLOR 101 06/17/2017 CO2 25 06/17/2017 TPROT 6.1 06/10/2017 ALB 3.3 (L) 06/10/2017 CA 8.1 (L) 06/17/2017 ALKPHOS 59 06/10/2017 TBILI 0.2 06/10/2017 AST 12 06/10/2017 ALT 13 06/10/2017 No results found for: PCRAT , UALBCR PCRAT=Protein Creatinine Ratio; UABCR=Albumin Creat Ratio Results for orders placed or performed in visit on 01/25/24 UA DIP, URINE (POC) Result Value Ref Range GLUCOSE UA (POCT) Negative Negative mg/dL BILIRUBIN UA (POCT) Negative Negative KETONE UA (POCT) Negative Negative mg/dL SPECIFIC GRAVITY UA (POCT) 1.020 1.005 - 1.030 HEMOGLOBIN/BLOOD UA (POCT) Moderate (A) Negative PH UA (POCT) 6.0 4.5 - 8.0 PROTEIN UA (POCT) Negative Negative mg/dL UROBILINOGEN UA (POCT) 0.2 Normal E.U./dL NITRITE UA (POCT) Negative Negative LEUKOCYTES UA (POCT) Small (A) Negative COLOR UA (POCT) Yellow CLARITY UA (POCT) Clear Impression/Recommendations Social History Social History Narrative Not on file Karlene Tom is a 43 year old female - Obesity Body mass index is 44.88 kg/m . - H/o spina bifida and tethered cord with myelomeningocele repair at and reviion on 1994 and 2016, - Chronic pain in low back pain and leg pain chronic, treated with pregabalin and tramadol. Follow up Neurology, last appointment 01/19/24 - Neurogenic bladder had botox injection last week. Prescribed ciprofloxacin and reports had mouth and body itching Follow up Urology - Urinary freqeunt suspicious of UTI, UA with trace of leuk sterase. Plan: Request records from prior PCP Joan Cruz and Shon Angel. Order 1 month supply of tramadol and pregabalin. Future refills contingent on reviewed records. Order UA and urine culture, treat with antibiotics as appropriate. Diagnoses and all orders for this visit: Chronic bilateral low back pain, unspecified whether sciatica present - pregabalin (LYRICA) 75 mg capsule; Take 1 capsule by mouth three times a day for 28 days. - traMADol (ULTRAM) 50 mg tablet; Take 1 tablet by mouth three times a day for 7 days. Morbid obesity with BMI of 40.0-44.9, adult (HCC) Neurogenic bladder Spina bifida, unspecified hydrocephalus presence, unspecified spinal region (HCC) Tethered cord ([facility]) Urinary frequency - URINALYSIS, REFLEX MICROSCOPIC - URINE CULTURE Acute UTI - nitrofurantoin monohydrate and macrocrystal (MACROBID) 100 mg capsule; Take 1 capsule by mouth two times a day for 5 days. Other orders - UA DIP, URINE (POC) Return in about 4 weeks (around 02/22/2024) for INPERSON, chronic pain. . Aidan Forrester MD documented in this encounter [facility] 01-25-2024 Note HNO ID: [id number] Author: AIDAN MONTENEGRO MD Service: ? Author Type: Physician Type: Progress Notes Filed: 01/25/2024 17:41 Note Text: Karlene Tom is a 43 year old female Chief complaint: Follow Up (Lab results/T3, states she put a lot of weight on quickly temp goes down instead of up when sick. ) and UTI (Bladder pain, strong odor.) Subjective HPI: H/o spina bifida and tethered cord with myelomeningocele repair at and reviion on 1994 and 2016, complicated with neurogenic bowel and bladder. Follow up Neurology, last appointment 01/19/24 H/o neurogenic bladder had botox injection last week. Prescribed ciprofloxacin and reports had mouth and body itching Follow up Urology H/o chronic pain in low back pain and leg pain chronic, treated with pregabalin and tramadol. Follow up neurology and neurosurgery. Filled Written ID Drug QTY Days Prescriber RX # Dispenser Refill Daily Dose* Pymt Type ROUGE PRESSER 12/22/2023 12/22/2023 1 Tramadol Hcl 50 Mg Tablet 90.00 30 Fa n [id number] Rit (7038) 0 30.00 MME Medicaid [place] 12/22/2023 12/22/2023 1 Pregabalin 75 Mg Capsule 90.00 30 Fa n [id number] Rit (7038) 0 1.51 LME Medicaid [place] 11/12/2023 11/12/2023 1 Pregabalin 75 Mg Capsule 90.00 30 Brionna [facility] [id number] Rit (7038) 0 1.51 LME [place] Silvina Olu [address] [place] [address] - Shon Shammo [address] [facility] [address] Review of Systems Constitutional: Negative for fever and unexpected weight change. Respiratory: Negative for cough and shortness of breath. Cardiovascular: Negative for chest pain. Gastrointestinal: Negative for abdominal pain, nausea and vomiting. Genitourinary: Negative for pelvic pain. Musculoskeletal: Positive for arthralgias, back pain and myalgias. Neurological: Negative for headaches. Objective BP 110/74 Pulse 85 Temp 36.8 ?C (98.2 ?F) Wt 128.8 kg (283 lb 15.2 oz) LMP 01/04/2024 SpO2 97% BMI 44.88 kg/m? BMI Readings from Last 3 Encounters: 01/25/24 : 44.88 kg/m? 01/19/24 : 45.34 kg/m? 01/06/24 : 43.19 kg/m? Last Wt 01/25/24 : 128.8 kg (283 lb 15.2 oz) 01/19/24 : 130.1 kg (286 lb 13.1 oz) 01/06/24 : 125.1 kg (275 lb 12.7 oz) Last BP 01/25/24 : 110/74 01/19/24 : 130/61 01/06/24 : 114/78 Physical Exam Constitutional: Appearance: Normal appearance. HENT: Head: Atraumatic. Cardiovascular: Rate and Rhythm: Normal rate and regular rhythm. Heart sounds: Normal heart sounds. No murmur heard. Pulmonary: Effort: Pulmonary effort is normal. Breath sounds: Normal breath sounds. Abdominal: Palpations: Abdomen is soft. There is no mass. Tenderness: There is no abdominal tenderness. There is no guarding or rebound. Neurological: Mental Status: She is alert. Cranial Nerves: Cranial nerves 2-12 are intact. Motor: Weakness present. Gait: Gait abnormal. Comments: Weakness in lower extremities. Antalgic gait. Psychiatric: Mood and Affect: Mood normal. Behavior: Behavior normal. No results found for: HBA1C , HBA0 HBA0=Estimated average glucose Lab Results Component Value Date CHOL 172 04/28/2006 CHOL 178.0 11/21/2004 HDL 46 04/28/2006 HDL 51 11/21/2004 LDL 104 04/28/2006 LDL 105 11/21/2004 TG 111 04/28/2006 TG 111 11/21/2004 Lab Results Component Value Date GLUC 95 06/17/2017 BUN 7 (L) 06/17/2017 CREAT 0.70 06/17/2017 NA 137 06/17/2017 K 4.0 06/17/2017 CHLOR 101 06/17/2017 CO2 25 06/17/2017 TPROT 6.1 06/10/2017 ALB 3.3 (L) 06/10/2017 CA 8.1 (L) 06/17/2017 ALKPHOS 59 06/10/2017 TBILI 0.2 06/10/2017 AST 12 06/10/2017 ALT 13 06/10/2017 No results found for: PCRAT , UALBCR PCRAT=Protein Creatinine Ratio; UABCR=Albumin Creat Ratio Results for orders placed or performed in visit on 01/25/24 UA DIP, URINE (POC) Result Value Ref Range GLUCOSE UA (POCT) Negative Negative mg/dL BILIRUBIN UA (POCT) Negative Negative KETONE UA (POCT) Negative Negative mg/dL SPECIFIC GRAVITY UA (POCT) 1.020 1.005 - 1.030 HEMOGLOBIN/BLOOD UA (POCT) Moderate (A) Negative PH UA (POCT) 6.0 4.5 - 8.0 PROTEIN UA (POCT) Negative Negative mg/dL UROBILINOGEN UA (POCT) 0.2 Normal E.U./dL NITRITE UA (POCT) Negative Negative LEUKOCYTES UA (POCT) Small (A) Negative COLOR UA (POCT) Yellow CLARITY UA (POCT) Clear Impression/Recommendations Social History Social History Narrative Not on file Karlene D Negro is a 43 year old female - Obesity Body mass index is 44.88 kg/m?. - H/o spina bifida and tethered cord with myelomeningocele repair at and reviion on 1994 and 2016, - Chronic pain in low back pain and leg pain chronic, treated with pregabalin and tramadol. Follow up Neurology, last appointment 01/19/24 - Neurogenic bladder had botox injection last week. Prescribed ciprofloxacin and reports had mouth and body itching Follow up Urology - Urinary freqeunt suspicious of UTI, UA with trace of leuk sterase. Plan: Request records from prior (more content not included)... [facility] 01-19-2024 Note HNO ID: [id number] Author: LYNNETTE BROOKS RT(R) Service: ? Author Type: Technologist Type: Progress Notes Filed: 01/19/2024 10:59 Note Text: Radiology Service Progress Note PATIENT NAME: Karlene Tom DATE OF SERVICE: January 19, 2024 TIME: 10:58 AM PATIENT IDENTITY VERIFICATION COMPLETED USING TWO (2) IDENTIFIERS: Name and Date of confirmed by patient verbally and Name and Date of confirmed by identification band. FALL SCREENING: Has the patient had 2 falls in the last year or 1 fall with injury or currently using an Ambulatory Assistive Device (Walker, Cane, Wheelchair, Crutches, etc.)? No PATIENT GENDER DATA: Female. status: : No status: NO. PATIENT RELEVANT IMPLANT DATA REVIEWED: Not Applicable PATIENT PRESENTS WITH AN IMPLANTABLE OR ATTACHED BLAST FURNACE AUXILIARIES SUPERVISOR: No RADIOLOGY DEPARTMENT: General X-ray: Exam(s) Completed: Spine X-Ray(s): Lumbar AP / LAT / L5-S1 PERIPHERAL IV DATA: Not applicable SIGNED BY: RT Kayley(R) January 19, 2024 10:58 AM [facility] 01-19-2024 History of Present illness Narrative Radiology Service Progress Note PATIENT NAME: Karlene Tom DATE OF SERVICE: January 19, 2024 TIME: 10:58 AM PATIENT IDENTITY VERIFICATION COMPLETED USING TWO (2) IDENTIFIERS: Name and Date of confirmed by patient verbally and Name and Date of confirmed by identification band. FALL SCREENING: Has the patient had 2 falls in the last year or 1 fall with injury or currently using an Ambulatory Assistive Device (Walker, Cane, Wheelchair, Crutches, etc.)? No PATIENT GENDER DATA: Female. status: : No status: NO. PATIENT RELEVANT IMPLANT DATA REVIEWED: Not Applicable PATIENT PRESENTS WITH AN IMPLANTABLE OR ATTACHED BLAST FURNACE AUXILIARIES SUPERVISOR: No RADIOLOGY DEPARTMENT: General X-ray: Exam(s) Completed: Spine X-Ray(s): Lumbar AP / LAT / L5-S1 PERIPHERAL IV DATA: Not applicable SIGNED BY: RT Kayley(R) January 19, 2024 10:58 AM documented in this encounter [facility] 01-19-2024 Nurse Note Additional intake questions: Has the patient had fever, nausea, vomiting, diarrhea, constipation, fatigue for > 1 week? No Does the patient have a decreased appetite? No Does patient want to see a Cryptographic Technician? No (yes to any of above refer patient to schedulers for dietitian appointment) ) Does patient have any new or increased numbness or tingling of extremities? No Is patient interested in fertility information? No Does patient need any prescription refills? No Does patient have an advanced directive in place? No, Patient referred to [facility] 01-19-2024 Nurse Note Additional intake questions: Has the patient had fever, nausea, vomiting, diarrhea, constipation, fatigue for > 1 week? No Does the patient have a decreased appetite? No Does patient want to see a Cryptographic Technician? No (yes to any of above refer patient to schedulers for dietitian appointment) ) Does patient have any new or increased numbness or tingling of extremities? No Is patient interested in fertility information? No Does patient need any prescription refills? No Does patient have an advanced directive in place? No, Patient referred to [facility] documented in this encounter [facility] 01-19-2024 Note HNO ID: [id number] Author: VANCE DALEY PA-C Service: ? Author Type: Physician Drill Punch Operator Type: Progress Notes Filed: 01/19/2024 14:02 Note Text: This note was created using [employer]. Subjective Karlene Tom is a 43 year old female here to re-establish care for tethered cord (spina bifida) and myelomeningocele with tethered cord, s/p cord detethering. Lipoma removed at with repair of the myelomeningocele. In 1994 she had another lipoma removed. 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 Huber. She has a lot of back pain and leg pain since she has been a child. She was told that there was nothing they could do about this. She was told she just had to deal with the pain. She has a neurogenic bladder and has to self cath. She also has chronic constipation. She was last seen by us in 2019 at which time she c/o worsening pain since surgery. She c/o low back pain and numbness and tingling in b/l LE. Pt is trying to get disability. She is unable to work. She hasn't been able to move as much. She has neuropathy from the waist down. She feels constant burning in the legs. The upper back is hurting and she has neck pain as well. She is unable to go out. She is only able to be on the feet and walk for 15-20 mins. Review of Systems Objective LMP 01/04/2024 Physical Exam Constitutional: Appearance: Normal appearance. HENT: Head: Normocephalic and atraumatic. Eyes: Extraocular Movements: Extraocular movements intact. Conjunctiva/sclera: Conjunctivae normal. Pulmonary: Effort: Pulmonary effort is normal. No respiratory distress. Skin: General: Skin is warm and dry. Neurological: General: No focal deficit present. Mental Status: She is alert and oriented to person, place, and time. GCS: GCS eye subscore is 4. GCS verbal subscore is 5. GCS motor subscore is 6. Cranial Nerves: No dysarthria or facial asymmetry. Motor: Weakness and abnormal muscle tone present. Coordination: Coordination abnormal. Gait: Gait abnormal. Comments: LE strength weaker on the R than L Limp on the R Unable to extend legs fully due to spasticity of the muscles. Hip flexion, leg extension, leg flexion weaker on the R than L Left weaker than normal 4+, R 4- Unable to perform heel walk or toe walk. Psychiatric: Mood and Affect: Mood normal. Behavior: Behavior normal. Assessment and Plan Spina bifida Tethered cord Myelomeningocele Repair at Detethering again in 1994 3rd detethering in 2016. 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 No current imaging. Recommend MRI cervical thoracic and lumbar. Lumbar to look at the tethered cord. Cervical to rule out chiari and spondylosis, 2nd to fine motor skills Thoracic due to mid back pain. Filled out questionnaire for state's attorney. Form copied for scanning into chart. F/u uafter imaging. I spent a total of 50 minutes on the date of the service which included preparing to see the patient, [id number] patient care, completing clinical documentation, obtaining and/or reviewing separately obtained history, performing a medically appropriate examination, counseling and educating the patient/family/caregiver, ordering medications, tests, or procedures, communicating with other HCPs (not separately reported), independently interpreting results (not separately reported), communicating results to the patient/family/caregiver, and care coordination (not separately reported). [facility] 01-19-2024 History of Present illness Narrative This note was created using [employer]. Subjective Karlene Tom is a 43 year old female here to re-establish care for tethered cord (spina bifida) and myelomeningocele with tethered cord, s/p cord detethering. Lipoma removed at with repair of the myelomeningocele. In 1994 she had another lipoma removed. 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 Huber. She has a lot of back pain and leg pain since she has been a child. She was told that there was nothing they could do about this. She was told she just had to deal with the pain. She has a neurogenic bladder and has to self cath. She also has chronic constipation. She was last seen by us in 2019 at which time she c/o worsening pain since surgery. She c/o low back pain and numbness and tingling in b/l LE. Pt is trying to get disability. She is unable to work. She hasn't been able to move as much. She has neuropathy from the waist down. She feels constant burning in the legs. The upper back is hurting and she has neck pain as well. She is unable to go out. She is only able to be on the feet and walk for 15-20 mins. Review of Systems Objective LMP 01/04/2024 Physical Exam Constitutional: Appearance: Normal appearance. HENT: Head: Normocephalic and atraumatic. Eyes: Extraocular Movements: Extraocular movements intact. Conjunctiva/sclera: Conjunctivae normal. Pulmonary: Effort: Pulmonary effort is normal. No respiratory distress. Skin: General: Skin is warm and dry. Neurological: General: No focal deficit present. Mental Status: She is alert and oriented to person, place, and time. GCS: GCS eye subscore is 4. GCS verbal subscore is 5. GCS motor subscore is 6. Cranial Nerves: No dysarthria or facial asymmetry. Motor: Weakness and abnormal muscle tone present. Coordination: Coordination abnormal. Gait: Gait abnormal. Comments: LE strength weaker on the R than L Limp on the R Unable to extend legs fully due to spasticity of the muscles. Hip flexion, leg extension, leg flexion weaker on the R than L Left weaker than normal 4+, R 4- Unable to perform heel walk or toe walk. Psychiatric: Mood and Affect: Mood normal. Behavior: Behavior normal. Assessment and Plan Spina bifida Tethered cord Myelomeningocele Repair at Detethering again in 1994 3rd detethering in 2017. 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 No current imaging. Recommend MRI cervical thoracic and lumbar. Lumbar to look at the tethered cord. Cervical to rule out chiari and spondylosis, 2nd to fine motor skills Thoracic due to mid back pain. Filled out questionnaire for state's attorney. Form copied for scanning into chart. F/u uafter imaging. I spent a total of 50 minutes on the date of the service which included preparing to see the patient, [id number] patient care, completing clinical documentation, obtaining and/or reviewing separately obtained history, performing a medically appropriate examination, counseling and educating the patient/family/caregiver, ordering medications, tests, or procedures, communicating with other HCPs (not separately reported), independently interpreting results (not separately reported), communicating results to the patient/family/caregiver, and care coordination (not separately reported). documented in this encounter [facility] 01-18-2024 Note Formatting of this n ote is different from the original. CYSTOSCOPY, WITH BOTULINUM TOXIN INJECTION 200 units Operative Note Date: 01/18/2024 OR Location: [facility] OR Name: Karlene Tom, : 1980, Age: 43 y.o., , Sex: female Diagnosis Pre-op Diagnosis * Urge incontinence [N39.41] Post-op Diagnosis * Urge incontinence [N39.41] Procedures CYSTOSCOPY, WITH BOTULINUM TOXIN INJECTION 200 units [address]231 - [place] CYSTOURETHROSCOPY INJ CHEMODENERVATION BLADDER Surgeons * Dominick Lopes - Primary Resident/Fellow/Other Drill Punch Operator: Surgeons and Role: * No surgeons found with a matching role * Procedure Summary Anesthesia: General ASA: II Anesthesia Staff: Anesthesiologist: Gene Agrawal MD QUILL WORKER: Maribel Esposito APRN-JAZMYNE Estimated Blood Loss: 0 mL Intra-op Medications: Administrations occurring from 1040 to 1200 on 01/18/24: * No intraprocedure medications in log * Anesthesia Record Intraprocedure I/O Totals Intake LR infusion 500.00 mL Total Intake 500 mL Output Est. Blood Loss 0 mL Total Output 0 mL Net Net Volume 500 mL Specimen: No specimens collected Staff: Day Worker: Tara Bourgeois RN Scrub Person: Liliana Solorio Drains and/or Catheters: * None in log * Findings: There was evidence of bladder trabeculation on cystoscopy with cellules. Both orifices were anatomical. There was squamous metaplasia of the trigone. Rest of the exam of the bladder revealed no evidence of tumor stones or ulcers. Indications: Karlene Tom is an 43 y.o. female who is having surgery for Urge incontinence [N39.41]. The patient was seen in the preoperative area. The risks, benefits, complications, treatment options, non-operative alternatives, expected recovery and outcomes were discussed with the patient. The possibilities of reaction to medication, pulmonary aspiration, injury to surrounding structures, bleeding, recurrent infection, the need for additional procedures, failure to diagnose a condition, and creating a complication requiring transfusion or operation were discussed with the patient. The patient concurred with the proposed plan, giving informed consent. The site of surgery was properly noted/marked if necessary per policy. The patient has been actively warmed in preoperative area. Preoperative antibiotics have been ordered and given within 1 hours of incision. Venous thrombosis prophylaxis have been ordered including bilateral sequential compression devices Procedure Details: PROCEDURE IN DETAIL: The patient was interviewed [...] solution of 200 U of Botox in 10 mL of normal saline was created. The cystoscope was then inserted into the bladder and the urine was emptied. The bladder was then filled with approximately 250 mL of normal saline, and the entire 200 U of the botox solution was injected into the bladder muscle in a grid-like pattern under direct visualization. Visible blood vessels were avoided. After hemostasis was confirmed, the bladder was emptied. The cystoscope was removed. The patient was then awakened from anesthesia, having tolerated procedure well, and was taken to the recovery room in stable condition. All sponge, needle, and instrument counts were correct at the end the case. Complications: None; patient tolerated the procedure well. Disposition: PACU - hemodynamically stable. Condition: stable Attending Attestation: I was present and scrubbed for the entire procedure. Dominick Lopes [facility] Work Phone: 01-18-2024 Miscellaneous Notes CYSTOSCOPY, WITH BOTULINUM TOXIN INJECTION 200 units Operative Note Date: 01/18/2024 OR Location: [facility] OR Name: Karlene Tom, : 1980, Age: 43 y.o., , Sex: female Diagnosis Pre-op Diagnosis * Urge incontinence [N39.41] Post-op Diagnosis * Urge incontinence [N39.41] Procedures CYSTOSCOPY, WITH BOTULINUM TOXIN INJECTION 200 units [id number] - [place] CYSTOURETHROSCOPY INJ CHEMODENERVATION BLADDER Surgeons * Dominick Lopes - Primary Resident/Fellow/Other Drill Punch Operator: Surgeons and Role: * No surgeons found with a matching role * Procedure Summary Anesthesia: General ASA: II Anesthesia Staff: Anesthesiologist: Gene Agrawal MD QUILL WORKER: Maribel Esposito APRN-QUILL WORKER Estimated Blood Loss: 0 mL Intra-op Medications: Administrations occurring from 1040 to 1200 on 01/18/24: * No intraprocedure medications in log * Anesthesia Record Intraprocedure I/O Totals Intake LR infusion 500.00 mL Total Intake 500 mL Output Est. Blood Loss 0 mL Total Output 0 mL Net Net Volume 500 mL Specimen: No specimens collected Staff: Day Worker: Tara Bourgeois RN Scrub Person: Liliana Solorio Drains and/or Catheters: * None in log * Findings: There was evidence of bladder trabeculation on cystoscopy with cellules. Both orifices were anatomical. There was squamous metaplasia of the trigone. Rest of the exam of the bladder revealed no evidence of tumor stones or ulcers. Indications: Karlene Tom is an 43 y.o. female who is having surgery for Urge incontinence [N39.41]. The patient was seen in the preoperative area. The risks, benefits, complications, treatment options, non-operative alternatives, expected recovery and outcomes were discussed with the patient. The possibilities of reaction to medication, pulmonary aspiration, injury to surrounding structures, bleeding, recurrent infection, the need for additional procedures, failure to diagnose a condition, and creating a complication requiring transfusion or operation were discussed with the patient. The patient concurred with the proposed plan, giving informed consent. The site of surgery was properly noted/marked if necessary per policy. The patient has been actively warmed in preoperative area. Preoperative antibiotics have been ordered and given within 1 hours of incision. Venous thrombosis prophylaxis have been ordered including bilateral sequential compression devices Procedure Details: PROCEDURE IN DETAIL: The patient was interviewed [...] solution of 200 U of Botox in 10 mL of normal saline was created. The cystoscope was then inserted into the bladder and the urine was emptied. The bladder was then filled with approximately 250 mL of normal saline, and the entire 200 U of the botox solution was injected into the bladder muscle in a grid-like pattern under direct visualization. Visible blood vessels were avoided. After hemostasis was confirmed, the bladder was emptied. The cystoscope was removed. The patient was then awakened from anesthesia, having tolerated procedure well, and was taken to the recovery room in stable condition. All sponge, needle, and instrument counts were correct at the end the case. Complications: None; patient tolerated the procedure well. Disposition: PACU - hemodynamically stable. Condition: stable Attending Attestation: I was present and scrubbed for the entire procedure. Dominick Lopes documented in this encounter [facility] Work Phone: 01-18-2024 Hospital Discharge instructions Naz Graves MD - 01/18/2024 9:56 AM EDT .Urogynecology Post Operative instructions Clinic number: [phone] Call your physicians office or go to the nearest emergency room if you have any of the following: Fever higher than 100.4 F, chills, sweats. Difficulty urinating, burning with urination Difficulty swallowing or eating. Nausea or vomiting. Increased pain or pain that is not controlled. Increased cough or productive cough of yellow or green colored phlegm. Vaginal bleeding soaking more than a pad/hour. Any other symptoms that are concerning to you Go IMMEDIATELY to the emergency department if you experience shortness of breath Medications: For Pain: Tylenol (acetaminophen) and ibuprofen are your first line therapies for pain. You can take each of these medications every 6 (six) hours. You can alternate taking doses of these medications so that you have a pain medication available to take every 3 hours. For example, you can take Tylenol at 9am, then ibuprofen at noon, then Tylenol again at 3 pm, etc. You were prescribed pyridium to be taken as needed for bladder spasms. Do not be alarmed if your urine appears orange. This is a common side effect of the medication. It is very important to keep all of your post operative clinic appointments. documented in this encounter [facility] Work Phone: 01-14-2024 Instructions Elda Danielson MD - 01/14/2024 2:13 PM EDT Information for strabismus surgery with Dr. Danielson Surgery Scheduling [facility] - First of each month (children 1 year old and older) and second Thursday of each month (14 years old and older). No major medical comorbidities (including sleep apnea, obesity (BMI greater than 40), and pacemaker). [facility] - First, Third, and (AM start) Thursday of each month, and Fifth Thursday of each month. Surgery coordinator at [facility] and [facility] [phone]. Please do not plan on any far-away travel within two weeks after surgery day. Pre-Op History and physical exam. All patients must have a pre-operative history and physical to clear them medically for surgery within 30 days of their surgery date. This can be completed by their primary care physician or through the pre-anesthesia testing department. If their physician is outside of the [facility] system, then please bring a printed copy of their history and physical with on the day of their surgery. Schedule pre-anesthesia testing appointment. Call [phone]. Pre-op measurements. Sometimes we do a pre-op measurements visit with Dr. Danielson about a week prior to surgery. At this visit we can answer any questions that you have about the surgery and sign the consent. If we do not do a pre-op visit, then we may sign the consent on the day of surgery. If you have any questions prior to surgery, you can send a Gucash message or you can call Dr. Danielson s office at [phone]. Children get sick a lot! If your child is sick before their surgery date, then you may want to reschedule their surgery since this is considered elective. Children with a fever or wheezing or significant congestion will need to be rescheduled. If rescheduling their surgery, they may need to get another history and physical if it has been more than 30 days. Adults have to get prior authorization from their insurance. Our financial department will do this for you. Please stop any blood thinners (if authorized by your prescribing physician) and avoid aspirin and ibuprofen/motrin for 10 days prior to surgery to decrease risk of bleeding. Day of Surgery Eating. No solid foods or milk 8 hours prior to surgery. Formula up to 6 hours prior to surgery. Breast milk up to 4 hours prior. Clear liquids (water, apple juice) up to 2 hours prior. Eye drops/ointment. We typically prescribe eye drops or ointment and instruct you to pick them up prior to surgery and bring with you on the day of surgery. Please hand them to your doctor prior to surgery so they can instill at the end of the surgery and then return the bottle to you to use at home. Makeup. Please do not wear any makeup on the day of surgery. Please do your best to clean off all make up, especially eye makeup, the night before surgery. Driving. You may not drive on day of surgery due to general anesthesia. You must have someone drive you. Arrival time. The surgery department will call you the day prior to surgery to let you know what time to arrive. They typically have you arrive 1 hour prior to scheduled start of your surgery. Sometimes we run behind schedule, so please bring with books and toys for entertainment. Please plan accordingly and arrange for someone else to take care of other kids at home/pick them up from school, etc. Location: [facility] - Surgery center is on 2nd floor Main campus - Surgery pre-op waiting areas is M23 Anesthesia. You will meet your anesthesiologist in the pre-op area and they can answer any questions that you have about anesthesia. To put children to sleep, an anesthesiologist will use a mask with gas (children can pick a flavor in pre-op) to get them asleep, and then they will insert an IV. Older children and adults get IVs in the pre-op area. Parents will not be allowed back in to the operating area and will wait in the waiting area for the doctor to come and debrief after the surgery. Eye muscle surgery typically takes 30 minutes per muscle. If this is a reoperation or in an area of scar tissue, then it will take longer. This does not include time to put patient to sleep and wake up. Recovery area. We will try to get you into your child s recovery room before or soon after they wake up. If your child is sleeping when you enter the recovery room, please let them continue sleeping and wake up on their own. Your child will most likely be upset when they wake up. The anesthesia makes them feel yucky and disoriented. While their eyes will feel irritated, their agitation is usually due to the anesthesia more so than eye pain. They will still have their IV in so that we can give them pain, nausea, or relaxing medication if needed. The IV will be removed before you leave. Discharge time. People are typically discharge 1 to 2 hours after their surgery is completed. It depends on how quickly they wake up and feel ready to go home. They will try to have them eat and drink something in recovery. They will also want them to go to the bathroom before leaving. Post-Op Pain management - over the counter Tylenol or ibuprofen for pain. We do not typically prescribe stronger pain medication. For the first 24 hours, we recommend that you give take pain medication every 3 hours around the clock (alternating between Tylenol and ibuprofen to avoid overdose) in order to prevent pain from getting significant. Wound management We do not typically put a patch on the operate eye(s). Keep area clean and dry. Two weeks of no swimming and no getting dirt/dust/sand/snow/water in eyes. For the most part, that means staying inside. When bathing try to limit water and soap from getting in eyes. This may be easier by taking a bath rather than shower. Some people prefer to wear swim goggles in the shower. Try to avoid rubbing eyes for the first 2 weeks. Eye drops/ointment. Instil as directed. Typically 1 drop, 3 times per day until first post-op visit. Ideally, have patient lie down and hold lower eyelid down to instil drop in eye. It is okay if they close their eyelids and you drop in nasal corner of eye. It is generally okay if you run out of drops before the first post-op visit. If there is a lot of inflammation or any signs of infection at first post-op visit, then I may have you continue or switch to a different medication. Ice packs. Apply dry ice packs to eyes for the first 24 hours to help with swelling. It is normal to have blood tinged tears for the first day. It is normal to have clear mucous and crusting. It is normal to have some blurry vision (we put dilating drops in the eyes having surgery that last about 5 hours), photophobia (light sensitivity), foreign body sensation, and watering. The white part of the eyes will look bloodshot and swollen for up to 4 weeks. In general, younger people heal quicker than older people. The stitches may look like little black dots and dissolve by 6 weeks. It is normal to have some double vision after surgery and this tends to improve within a few days to weeks. The eyes may not look perfectly straight right after surgery. They eyes muscles will be swollen and need time to reattach to the eyes and start working again. It is normal to have pain when trying to look in certain directions for the first week. It is normal to feel disoriented and unhappy for the first 24 hours following the surgery. This is typically from the general anesthesia. Most people feel better after getting home and each day should feel better than the prior one. Post-op Visits 1 week 1 month 3 months These appointments should ALL be scheduled prior to surgery date. Time Off No school or daycare for approximately 1 week. No gym class or outdoor recess for 1 week once they have returned to school. I prefer for a parent or caregiver to be with patient at home for the first week to ensure proper care. I am happy to fill out any paperwork that you need completed or I can write a letter for you to excuse from school/work. Most people take 2 weeks off of work. You may return to work sooner if you feel up to it. Some people take up to 3 weeks off if they work in an environment where things can get in their eyes (like construction work). No driving the day of the surgery because of general anesthesia. You have to feel comfortable with your vision before driving. If you have new double vision after surgery, you may close or patch one eye to help you function. Legally, you can drive with just one eye as long as you feel comfortable with you vision. Reasons to call doctor Any concerns about infection. Signs of an infection can be: pus discharge, red swollen eyelids, decreased vision, and/or a fever. Sudden eye misalignment. If eyes were looking fairly straight and all of the sudden are consistently not straight. There is always an on-call doctor available to answer questions or to examine the patient at [facility], even at night and on the weekends. Dr. Danielson s office number is [phone]. documented in this encounter [facility] 01-14-2024 Note HNO ID: [id number] Author: ELDA DANIELSON MD Service: ? Author Type: Physician Type: Progress Notes Filed: 01/14/2024 14:19 Note Text: ASSESSMENT/PLAN: 1. Monocular exotropia with other noncomitancies, left eye - ICD9: 378.14, ICD10: H50.142 (primary diagnosis) - s/p surgery around 30 years ago in [facility] with Dr. Vel Gómez (both eyes). Scars around lateral recti. - She reports that the left eye was going out and down which she did surgery for - Alignment was great for around 25 years - Recurred around 5 years ago - She has intermittent double vision when she is tired (does not close an eye or squint often) - no stereo - will request records from - SURGICAL REQUEST - ELECTIVE (04/2020). Recommend strabismus surgery to straight eyes and attempt to improve stereo vision. Risks, benefits, and alternatives discussed. 2. Hypotropia of left eye - ICD9: 378.32, ICD10: H50.22 - small angle - no pattern - discussed that if she has vertical diplopia after surgery, may need prisms or vertical strabismus surgery 3. Amblyopia, left eye - vision 20/30 Follow-up in: Surgery I have confirmed and edited as necessary the relevant HPI, ophthalmic history, ROS, and the neuro exam findings as obtained by others. I have seen and examined Karlene Tom. I have discussed the case and the management of this patient's care with the Resident/Fellow, if applicable. I also have reviewed and agree with the assessment and plan as stated above and agree with all of its relevant components. Elda Danielson MD January 14, 2024 2:17 PM [facility] 01-14-2024 History of Present illness Narrative ASSESSMENT/PLAN: 1. Monocular exotropia with other noncomitancies, left eye - ICD9: 378.14, ICD10: H50.142 (primary diagnosis) - s/p surgery around 30 years ago in [facility] with Dr. Vel Gómez (both eyes). Scars around lateral recti. - She reports that the left eye was going out and down which she did surgery for - Alignment was great for around 25 years - Recurred around 5 years ago - She has intermittent double vision when she is tired (does not close an eye or squint often) - no stereo - will request records from - SURGICAL REQUEST - ELECTIVE (04/2020). Recommend strabismus surgery to straight eyes and attempt to improve stereo vision. Risks, benefits, and alternatives discussed. 2. Hypotropia of left eye - ICD9: 378.32, ICD10: H50.22 - small angle - no pattern - discussed that if she has vertical diplopia after surgery, may need prisms or vertical strabismus surgery 3. Amblyopia, left eye - vision 20/30 Follow-up in: Surgery I have confirmed and edited as necessary the relevant HPI, ophthalmic history, ROS, and the neuro exam findings as obtained by others. I have seen and examined Karlene Tom. I have discussed the case and the management of this patient's care with the Resident/Fellow, if applicable. I also have reviewed and agree with the assessment and plan as stated above and agree with all of its relevant components. Elda Danielson MD January 14, 2024 2:17 PM documented in this encounter [facility] 01-06-2024 Note HNO ID: [id number] Author: TRACIE WILLIAMSON APRN.FILTER ASSEMBLER Service: ? Author Type: Nurse Practitioner Type: Progress Notes Filed: 01/08/2024 17:28 Note Text: CC:establish care S: current primary care is in [facility], she lives in [place], [place]. Is looking to transfer care to [facility] for speciality and primary. PMH: CHronic low back and leg pain since childhood. 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 She also reports that she cannot function without her chronic pain medications Lyrica and tramadol,has been taking tramadol for years, this was a step down from vicodin, takes along with lyrica. Tramadol dose recently decreased. Uses NSAID for extra pain control. Has used tramadol for years and started it when it was not a controlled substance, this was a step down from vicodin, takes along with lyrica. Tramadol dose recently decreased. Uses NSAID for extra pain control. She also uses cannabis gummies for pain. Her current PCP Dr. Sharma manages pain medication She saw spine health 12/12 and requested to follow-up with neurology specialist which she has an appointment upcoming to discuss treatment options further. She was referred to [facility] and that appointment is 03/14. She lives with her fiance and has 2 children in the home ages 11 and 25. Is currently unemployed states that she was denied disability on multiple occasions. Discussed her depression screening. She states that nothing is worse or different than her normal and that she does not have suicidal intent. PHQ-9 Score: 14 (Moderate Depression) PHQ-9 Self-Harm: Several days CANDACE-7 Score: 9 (Mild Anxiety) ACTIVE PROBLEM LIST Pain in Joint, Lower Leg Smoker Spina Bifida (Hcc) Latex Allergy Tethered Cord (Hcc) Morbid Obesity (Hcc) History of Urinary Self-Catheterization Lumbar Surgical Wound Fluid Collection PAST SURGICAL HISTORY Procedure Laterality Date COLPOSCOPY CERVIX UPPER/ADJACENT VAGINA 05/25 Colposcopy CONIZATION CERVIX W/WO DANDC RPR ELTRD EXC 07/25 LEEP-Cervix PAST SURGICAL HISTORY OF 04/26 r leg surgery PAST SURGICAL HISTORY OF 2006 pins removed - r leg PAST SURGICAL HISTORY OF 2002 or 2003 stomach revision FAMILY HISTORY Problem Relation Age of Onset Cancer Mother skin other (macular degenertion) Mother Mental illness Mother Cancer Father bladder Hypertension Father other (pre diabetes) Father other (pe) Father Ischemic Heart Disease Father Breast Cancer Paternal Grandmother Social History Tobacco Use Smoking status: Every Day Packs/day: 1.00 Years: 20.00 Additional pack years: 0.00 Total pack years: 20.00 Types: Cigarettes Last attempt to quit: 03/21/2015 Years since quittin.8 Smokeless tobacco: Never Substance Use Topics Alcohol use: No Drug use: Yes Types: Marijuana Comment: occasional gummies at HS O:BP 114/78 (BP Site: Right Arm, BP Position: Sitting, BP Cuff Size: Large Adult) Pulse 85 Temp 36.6 ?C (97.8 ?F) (Oral) Ht 170.2 cm (5' 7.01 ) Wt 125.1 kg (275 lb 12.7 oz) LMP 01/04/2024 SpO2 98% BMI 43.19 kg/m? PHYSICAL EXAMINATION: General appearance: Well appearing, alert, in no acute distress, well-hydrated, well nourished,overweight/obese. Lungs: Lungs clear to auscultation. No wheezing, rhonchi, rales. Heart: RRR without murmur, gallop, or rubs. No ectopy Back:pain to palpation generalized to extremities as well Neuro: Gait normal. A:(Z76.89) Encounter to establish care (primary encounter diagnosis) (Q06.8) Tethered cord (HCC) (Q05.9) Spina bifida, unspecified hydrocephalus presence, unspecified spinal region (HCC) Comment: follow up with neuro department (G89.29) Other chronic pain Plan: has appointment with chronic pain recovery 03/14. I will need to discuss plan of care further with PCP who she will be established with Dr. Boo regarding management of her pain medications. (F17.200) Smoker Comment: Precontemplative Plan: Address in the future (F39) Mood disorder (HCC) Comment: No SI Plan: Due to time we did not explore this further, she is not interested in counseling. Requested records, follow-up with Dr. Boo to discuss pain medication management, review of outside labs and she also wants to discuss weight gain. Tracie Williamson APRN.FILTER ASSEMBLER [facility] 01-06-2024 History of Present illness Narrative CC:establish care S: current primary care is in [facility], she lives in [place], [place]. Is looking to transfer care to [facility] for speciality and primary. PMH: CHronic low back and leg pain since childhood. 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 She also reports that she cannot function without her chronic pain medications Lyrica and tramadol,has been taking tramadol for years, this was a step down from vicodin, takes along with lyrica. Tramadol dose recently decreased. Uses NSAID for extra pain control. Has used tramadol for years and started it when it was not a controlled substance, this was a step down from vicodin, takes along with lyrica. Tramadol dose recently decreased. Uses NSAID for extra pain control. She also uses cannabis gummies for pain. Her current PCP Dr. Sharma manages pain medication She saw spine health 12/12 and requested to follow-up with neurology specialist which she has an appointment upcoming to discuss treatment options further. She was [facility] to [facility] and that appointment is 03/14. She lives with her fianc and has 2 children in the home ages 11 and 25. Is currently unemployed states that she was denied disability on multiple occasions. Discussed her depression screening. She states that nothing is worse or different than her normal and that she does not have suicidal intent. PHQ-9 Score: 14 (Moderate Depression) PHQ-9 Self-Harm: Several days CANDACE-7 Score: 9 (Mild Anxiety) ACTIVE PROBLEM LIST Pain in Joint, Lower Leg Smoker Spina Bifida (Hcc) Latex Allergy Tethered Cord (Hcc) Morbid Obesity (Hcc) History of Urinary Self-Catheterization Lumbar Surgical Wound Fluid Collection PAST SURGICAL HISTORY Procedure Laterality Date COLPOSCOPY CERVIX UPPER/ADJACENT VAGINA 05/25 Colposcopy CONIZATION CERVIX W/WO D&C RPR ELTRD EXC 07/25 LEEP-Cervix PAST SURGICAL HISTORY OF 04/26 r leg surgery PAST SURGICAL HISTORY OF 2006 pins removed - r leg PAST SURGICAL HISTORY OF 2002 or 2003 stomach revision FAMILY HISTORY Problem Relation Age of Onset Cancer Mother skin other (macular degenertion) Mother Mental illness Mother Cancer Father bladder Hypertension Father other (pre diabetes) Father other (pe) Father Ischemic Heart Disease Father Breast Cancer Paternal Grandmother Social History Tobacco Use Smoking status: Every Day Packs/day: 1.00 Years: 20.00 Additional pack years: 0.00 Total pack years: 20.00 Types: Cigarettes Last attempt to quit: 03/21/2015 Years since quittin.8 Smokeless tobacco: Never Substance Use Topics Alcohol use: No Drug use: Yes Types: Marijuana Comment: occasional gummies at HS O:BP 114/78 (BP Site: Right Arm, BP Position: Sitting, BP Cuff Size: Large Adult) Pulse 85 Temp 36.6 C (97.8 F) (Oral) Ht 170.2 cm (5' 7.01 ) Wt 125.1 kg (275 lb 12.7 oz) LMP 01/04/2024 SpO2 98% BMI 43.19 kg/m PHYSICAL EXAMINATION: General appearance: Well appearing, alert, in no acute distress, well-hydrated, well nourished,overweight/obese. Lungs: Lungs clear to auscultation. No wheezing, rhonchi, rales. Heart: RRR without murmur, gallop, or rubs. No ectopy Back:pain to palpation generalized to extremities as well Neuro: Gait normal. A:(Z76.89) Encounter to establish care (primary encounter diagnosis) (Q06.8) Tethered cord (HCC) (Q05.9) Spina bifida, unspecified hydrocephalus presence, unspecified spinal region (HCC) Comment: follow up with neuro department (G89.29) Other chronic pain Plan: has appointment with chronic pain recovery 03/14. I will need to discuss plan of care further with PCP who she will be established with Dr. Boo regarding management of her pain medications. (F17.200) Smoker Comment: Precontemplative Plan: Address in the future (F39) Mood disorder (HCC) Comment: No SI Plan: Due to time we did not explore this further, she is not interested in counseling. Requested records, follow-up with Dr. Boo to discuss pain medication management, review of outside labs and she also wants to discuss weight gain. Tracie Williamson APRN.FILTER ASSEMBLER documented in this encounter [facility] [place] 12-08-2023 Miscellaneous Notes Images from the original note were not included. Time Frame: First available Provider: [facility] or [facility] Dx: tethered cord Established patient of Dr. Huber but not seen since 2018. Interval HPI : Ms. Tom is 37 year old female SP L4, L5 laminectomies for cord untethering in 05/2017. She also had previous procedures in infancy and age 14 for resection of associated sacral lipoma Arpita York, MSN, ANGIO TECHNOLOGIST, FILTER ASSEMBLER Certified Nurse Practitioner documented in this encounter [facility] 12-07-2023 History of Present illness Narrative Images from the original note were not included. [facility] Low Back Pain - Chronic (> 12 weeks) Initial Exam SUBJECTIVE HISTORY OF PRESENT ILLNESS: Karlene Tom is a 42 year old female who presents with a chief complaint of low back and leg pain and is self-referred. Patient presents with low back pain since childhood. She was diagnosed with spina bifida and has undergone multiple surgeries for lumbar surgical repair including lumbar laminectomy and surgical repair for tethered cord. She reports that she did experience negative health outcomes after surgery stating that she almost during 2 of her previous surgeries. She was previously a patient of Dr. Huber and Vance Daley PA-C in the brain tumor department. She states that she has been under the care of advanced neurology in [facility]. She reports that her symptoms are worsening and she cannot perform ADLs. She also reports that she cannot function without her chronic pain medications Lyrica and tramadol. She states that she was told that although her symptoms are worsening she would from interventional procedures. She states that she was advised to seek consultation in regards to a spinal cord stimulator. She states I do not want some country doctor doing any surgeries on my spine. She states that she feels as though her symptoms are getting worse and she would like to be reevaluated by Dr. Huber or Vance Daley PA-C , to see if she is a surgical candidate or what her treatment options are for low back pain. She is in the process of changing all the doctors to the [facility] for better management of care. Unemployed -she states she has attempted to obtain disability multiple times without success Smoker -sensation reviewed and encouraged Pain localized to bilateral low back Pain described as aching, cramping Radiation:Buttocks and BLE - entirely Numbness/Tingling:BLE 0- entirely She denies any loss of bowel control. She reports that she has self cath since she was in her 20s. She denies dexterity difficulties, denies imbalance. Pain rated 7/10 Pain worse with everything Pain improved with sleep, tramadol, Lyrica Interventions: medications, chiropractor years ago Medications:Lyrica, tramadol Past medications: Gabapentin , flexeril Physical Therapy: Summer 2022 for mobility Treating Physicians: Dr. Sharma - PCP Shon Angel FILTER ASSEMBLER - Neurology Dr. Mccray - Pain management - [facility] Dr. 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 Precipitating Event: None PAIN EVALUATION 12/07/2023 1436 12/07/2023 1446 Pain Level: 7 7 Pain Location: Back-Lower Back-Lower radiates to both legs more on R Description: Aching;Burning;Spasm;Stabbing;Thr obbing Aching;Cramping;Spasm Duration Amount of Time: 24 -- Duration Units: Hours Years Frequency: Continuous Continuous Intervention/Comfort measure: Medication;Reposition;Relaxation; Massage -- Litigation: No Workers' Compensation: No YELLOW & BLUE FLAGS YES-Neg Attitude; Back Pain is Disabling YES-Avoiding Activity (for Fear of Pain) No-Depression or Anxiety Disorders No-Social Problems No-Substance Use Disorder No-Job Dissatisfaction No-Financial Disincentives Patient Entered Questionnaires PROMIS Score Percentiles Percentiles provide an indication of how the patient's score ranks in relation to the general population. Higher percentile rankings indicate better function/quality of life. 50th percentile is the average of the general population and indicates half of respondents had a worse score. Depression Screenin01/12/2018 06/08/2018 12/07/2018 PHQ-9 Score 21 24 16 01/12/2018 06/08/2018 12/07/2018 PHQ-9 Self-harm Question Question 9 More than half the days Several days Not at all PHQ-9 Self-Harm (Item 9) response options: 0 Not at all 1 Several days 2 More than half the days 3 Nearly every day PHQ-9 Levels: 0-4 No - mild depression 5-9 Mild depression 10-14 Moderate depression 15-19 Moderately severe depression 20-27 Severe depression ACTIVE PROBLEM LIST Pain in Joint, Lower Leg Smoker Spina Bifida (Hcc) Latex Allergy Care, Subsequent Tethered Cord (Hcc) Morbid Obesity (Hcc) History of Urinary Self-Catheterization Lumbar Surgical Wound Fluid Collection PAST MEDICAL HISTORY Diagnosis Date Abnormal Pap smear of cervix LEEP History of urinary self-catheterization 05/26/2017 [facility] Morbid obesity (HCC) depression Spina bifida (HCC) PAST SURGICAL HISTORY Procedure Laterality Date COLPOSCOPY CERVIX UPPER/ADJACENT VAGINA 05/25 Colposcopy CONIZATION CERVIX W/WO D&C RPR ELTRD EXC 07/25 LEEP-Cervix PAST SURGICAL HISTORY OF 04/26 r leg surgery PAST SURGICAL HISTORY OF 2006 pins removed - r leg PAST SURGICAL HISTORY OF 2002 or 2003 stomach revision Social History Tobacco Use Smoking status: Every Day Packs/day: 1.00 Years: 20.00 Additional pack years: 0.00 Total pack years: 20.00 Types: Cigarettes Last attempt to quit: 03/21/2015 Years since quittin.7 Smokeless tobacco: Never Substance Use Topics Alcohol use: No Drug use: No FAMILY HISTORY Problem Relation Age of Onset Breast Cancer Paternal Grandmother Cancer Mother skin Cancer Father bladder ALLERGIES Allergen Reactions Latex Anaphylaxis Morphine GI Upset Neosporin [Neomycin* Rash Zinc Oxide Rash CURRENT MEDICATIONS: Tuugpxto-Kg-Oqt-Fe-[id number] tab Take 1 tablet by mouth once daily. (Patient not taking: Reported on 12/07/2018) pregabalin (LYRICA) 75 mg capsule Take 75 mg by mouth three times a day. IBUPROFEN (MOTRIN ORAL) Take by mouth. (Patient not taking: Reported on 12/01/2023) nitrofurantoin (MACRODANTIN) 25 mg capsule Take 10 mg by mouth as needed. (Patient not taking: Reported on 12/01/2023) Ascorbic Acid (VITAMIN C) 100 mg tablet Take 100 mg by mouth once daily. (Patient not taking: Reported on 12/01/2023) Multivitamins with Minerals cap Take by mouth. (Patient not taking: Reported on 12/01/2023) traMADol (ULTRAM) 50 mg tablet Take 50 mg by mouth three times daily. acetaminophen (TYLENOL) 325 mg tablet Take 1 tablet by mouth every 6 hours as needed. (Patient not taking: Reported on 12/07/2018) gabapentin (NEURONTIN) 400 mg capsule Take 1 capsule by mouth three times daily. (Patient not taking: Reported on 12/07/2018) cyclobenzaprine (FLEXERIL) 10 mg tablet Take 1 tablet by mouth three times daily as needed for Muscle Spasm. Walker (ULTRA-LIGHT ROLLATOR) misc 1 Units as needed. Rollator with seat (Patient not taking: Reported on 12/07/2018) REVIEW OF SYSTEMS: PAIN ASSESSMENT: See HPI. GENERAL: Denies fever, chills malaise and weight loss. HEENT: No recent change in vision or hearing. CARDIOVASCULAR: Denies chest pain, history of A-fib, valvular disease, or pacemaker/ICD. RESPIRATORY: Denies SOB, sputum production, and hemoptysis. GI: Denies GI ulcers, inflammatory disease, or liver disease. : Self Cath's MUSCULOSKELETAL: Positive for See HPI SKIN: Denies rash or itching. PSYCHOLOGICAL: Denies uncontrolled depression or anxiety. NEURO: Numbness ENDOCRINE: Denies diabetes, thyroid disease. HEMATOLOGY/LYMPHOLOGY: Denies cancer, bleeding or clotting disorders, anemia,and DVT's. ALLERGIC/IMMUNOLOGICAL: Denies risks for infection, or recent MRSA infections. HX of spina bifida, previous lipoma x 2, tetherd cord, arachnoiditis OBJECTIVE: PHYSICAL EXAM Wt 129 kg (284 lb 6.3 oz) LMP 04/23/2017 BMI 44.54 kg/m GENERAL APPEARANCE: Well appearing, well-hydrated, well nourished and alert, overweight/obese. SKIN: Head, neck, trunk, and extremities dry, intact and without lesions LUNGS: even and non-labored breathing, normal chest excursion NEURO/PSYCH: oriented to time, place, and person, speech normal, mental status intact GAIT: normal, toe walking normal, heel walking normal, able to tandem gait POSTURE: Posture and spinal curves are normal PALPATION: Paraspinal tenderness t/o lumbar region - non dermatomal. MUSCULOSKELETAL: Extended Low Back & Leg Exam Lumbar Range of Motion Flexion To knees Extension Restricted RIGHT LEFT Lateral Bending Limited Limited Oblique Extension Decreased Decreased Leg Raise Straight Leg Raise Caused low back pain Caused low back pain Contralateral Straight Leg Raise Caused low back pain Caused low back pain DTRs Knee Normal Normal Ankle Normal Normal Babinski Declined to take off shoes Declined to take off shoes Strength of Lower Extremities Extensor Hallux Longus 5/5 5/5 Ankle Dorsiflexion 5/5 5/5 Ankle Plantarflexion 5/5 5/5 Knee Extension 5/5 5/5 Faustino's Exam: Superficial non-anatomic tenderness: Yes Overreaction: Yes Pain on simulated maneuvers: Yes Straight Leg Raise test discrepancy: Yes Give-way weakness: No Non-dermatomal sensory loss: No Hip Range of Motion RIGHT LEFT Flexion Mildly Restricted Mildly Restricted Extension Mildly Restricted Mildly Restricted Abduction Mildly Restricted Mildly Restricted Adduction Mildly Restricted Mildly Restricted Internal Rotation Mildly Restricted Mildly Restricted External Rotation Mildly Restricted Mildly Restricted Hip Exam RIGHT LEFT KAVON Exam Normal Normal Trochanteric Bursa Tenderness Normal Normal Gaenslen's Maneuver Normal Normal Vincent's Test (IT-Band Pathology) Unable to perform Unable to perform @[id number]@ Cervical Range of Motion Flexion Normal Extension Normal Upper Body Reflex Exam RIGHT LEFT Reflex Status Reflex Status Biceps 2+ Normal 2+ Normal Triceps 2+ Normal 2+ Normal Milner's Sign absent absent Upper Extremity Strength RIGHT LEFT Strength (MMT) Strength (MMT) Shoulder Abduction 5/5 5/5 Biceps 5/5 5/5 Triceps 5/5 5/5 Resisted Suppination 5/5 5/5 Wrist Extension 5/5 5/5 Interossei 5/5 5/5 NEUROSENSORY: Soft touch; Within Normal Limits Logroll: caused low back pain Thigh thrust: caused low back pain Neuro Tests: None Data Review: [facility] records independently reviewed Images independently reviewed with the patient No outside records or outside imaging available MRI Lumbar 03/12/2023 w/o IVCON report only: IMPRESSION: 1. Tethered cord can be followed to the L5 level. 2. Postsurgical changes from L4 to L5. 3. Degenerative disc disease at L4-5, and degenerative facet joint arthritis from L4 to S1 4. No disc herniation, spinal stenosis or neuroforaminal narrowing seen. MRI Lumbar W/WO IVCON 12/22/2018: Stable postsurgical changes in the lumbar spine [...] L4-5. No significant canal or foraminal stenosis. MRI Lumbar 01/06/2018 : Postsurgical change from L4-L5 laminectomy for release [...] abutment of the ventral cord at T10-11. [address] Lumbar 06/18/2017: Interval L4-L5 and L5-S1 laminectomy, but no evidence for gross compromise of the spinal canal or neural foramina. Seroma dorsal to the paraspinous musculature. No abnormal enhancement. MRI Lumbar : Imaging findings suggestive of tethered cord, similar to the previous exam dated 03/30/2008. Lower sacral bony dysraphism and associated lipoma are not well imaged on this study, largely excluded from the [id number]. Slightly progressed degenerative endplate marrow signal changes at L4-5.. Small thoracic disc protrusions. No significant spinal canal or foraminal stenosis in the thoracic or lumbar spine. 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 Tethered cord can be followed to the L5 level. 2. Postsurgical changes from L4 to L5. 3. Degenerative disc disease at L4-5, and degenerative facet joint arthritis from L4 to S1 4. No disc herniation, spinal stenosis or neuroforaminal narrowing seen. At time of today's appointment she states that she has been [facility] by [facility] [place] to seek out possible consideration for spinal cord stimulator. She states that she is unable to have epidural steroid injections due to significant spine history. At time of today's appointment she states that she does not want to proceed further with treatment without surgical opinion of Dr. Huber and Vance Daley PA-C , as they previously had managed her care. As she did not bring imaging to today's appointment she was made aware to obtain CD of imaging and bring to Dr. Huber for consultation for complete evaluation process to be completed. I also reviewed a consultation to the chronic pain and rehabilitation program. She was agreeable and consultation order was placed. Medications indicated for use reviewed. No changes made to current regimen. Medication of tramadol and Lyrica will be managed by current prescribing provider. Plan of care, red flag signs, and when to seek emergent treatment reviewed. 1. Imaging: XR lumbar - will bring CD of MRI to appointment 2. Physical Therapy:None 3. Medication:No changes 4. Referrals: Brain Tumor Dr. Huber or Vance Daley PA-C and CPRP 5. Considerations:TBD 6. Follow up: PRN Imaging Ordered: None SIGNATURE: Norma Lyman APRN.CNP PATIENT NAME: Karlene Tom DATE: December 07, 2023 TIME: 2:42 PM documented in this encounter [facility] 12-07-2023 Note HNO ID: [id number] Author: NORMA LYMAN APRN.CNP Service: ? Author Type: Nurse Practitioner Type: Progress Notes Filed: 12/07/2023 16:26 Note Text: Spine Care Path Low Back Pain - Chronic (> 12 weeks) Initial Exam SUBJECTIVE HISTORY OF PRESENT ILLNESS: Karlene Tom is a 42 year old female who presents with a chief complaint of low back and leg pain and is self-referred. Patient presents with low back pain since childhood. She was diagnosed with spina bifida and has undergone multiple surgeries for lumbar surgical repair including lumbar laminectomy and surgical repair for tethered cord. She reports that she did experience negative health outcomes after surgery stating that she almost during 2 of her previous surgeries. She was previously a patient of Dr. Huber and Vance Daley PA-C in the brain tumor department. She states that she has been under the care of advanced neurology in [facility]. She reports that her symptoms are worsening and she cannot perform ADLs. She also reports that she cannot function without her chronic pain medications Lyrica and tramadol. She states that she was told that although her symptoms are worsening she would from interventional procedures. She states that she was advised to seek consultation in regards to a spinal cord stimulator. She states I do not want some country doctor doing any surgeries on my spine. She states that she feels as though her symptoms are getting worse and she would like to be reevaluated by Dr. Huber or Vance Daley PA-C , to see if she is a surgical candidate or what her treatment options are for low back pain. She is in the process of changing all the doctors to the [facility] for better management of care. Unemployed -she states she has attempted to obtain disability multiple times without success Smoker -sensation reviewed and encouraged Pain localized to bilateral low back Pain described as aching, cramping Radiation:Buttocks and BLE - entirely Numbness/Tingling:BLE 0- entirely She denies any loss of bowel control. She reports that she has self cath since she was in her 20s. She denies dexterity difficulties, denies imbalance. Pain rated 7/10 Pain worse with everything Pain improved with sleep, tramadol, Lyrica Interventions: medications, chiropractor years ago Medications:Lyrica, tramadol Past medications: Gabapentin , flexeril Physical Therapy: Summer 2022 for mobility Treating Physicians: Dr. Sharma - PCP Shon Angel CNP - Neurology Dr. Mccray - Pain management - [facility] Dr. 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 Precipitating Event: None PAIN EVALUATION 12/07/2023 1436 12/07/2023 1446 Pain Level: 7 7 Pain Location: Back-Lower Back-Lower radiates to both legs more on R Description: Aching;Burning;Spasm;Stabbing;Thr obbing Aching;Cramping;Spasm Duration Amount of Time: 24 -- Duration Units: Hours Years Frequency: Continuous Continuous Intervention/Comfort measure: Medication;Reposition;Relaxation; Massage -- Litigation: No Workers' Compensation: No YELLOW AND BLUE FLAGS YES-Neg Attitude; Back Pain is Disabling YES-Avoiding Activity (for Fear of Pain) No-Depression or Anxiety Disorders No-Social Problems No-Substance Use Disorder No-Job Dissatisfaction No-Financial Disincentives Patient Entered Questionnaires PROMIS Score Percentiles Percentiles provide an indication of how the patient's score ranks in relation to the general population. Higher percentile rankings indicate better function/quality of life. 50th percentile is the average of the general population and indicates half of respondents had a worse score. Depression Screenin01/12/2018 06/08/2018 12/07/2018 PHQ-9 Score 21 24 16 01/12/2018 06/08/2018 12/07/2018 PHQ-9 Self-harm Question Question 9 More than half the days Several days Not at all PHQ-9 Self-Harm (Item 9) response options: 0 Not at all 1 Several days 2 More than half the days 3 Nearly every day PHQ-9 Levels: 0-4 No - mild depression 5-9 Mild depression 10-14 Moderate depression 15-19 Moderately severe depression 20-27 Severe depression ACTIVE PROBLEM LIST Pain in Joint, Lower Leg Smoker Spina Bifida (Hcc) Latex Allergy Care, Subsequent Tethered Cord (Hcc) Morbid Obesity (Hcc) History of Urinary Self-Catheterization Lumbar Surgical Wound Fluid Collection PAST MEDICAL HISTORY Diagnosis Date Abnormal Pap smear of cervix LEEP History of urinary self-catheterization 05/26/2017 [facility] Morbid obesity (HCC) depression Spina bifida (HCC) PAST SURGICAL HISTORY Procedure Laterality Date COLP (more content not included)... [facility] 12-01-2023 Note HNO ID: [id number] Author: LINDA KENDRICK OD Service: ? 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 Diplopia H53.2 Plan: History of strabismus surgery at age 14 Return of symptoms years ago, unclear as to 10 years after surgery vs 2 years ago. Diplopia for the last 6 months per pt. Schedule eval. I have confirmed and edited as necessary the relevant ophthalmic history, ROS, and the exam findings as obtained by others. I have seen and examined this patient. I have discussed the case and the management of this patient's care with the resident/fellow, if applicable. I also have reviewed and agree with the assessment and plan as stated above and agree with all of its relevant components. 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 Diplopia H53.2 Plan: History of strabismus surgery at age 14 Return of symptoms years ago, unclear as to 10 years after surgery vs 2 years ago. Diplopia for the last 6 months per pt. Schedule eval. I have confirmed and edited as necessary the relevant ophthalmic history, ROS, and the exam findings as obtained by others. I have seen and examined this patient. I have discussed the case and the management of this patient's care with the resident/fellow, if applicable. I also have reviewed and agree with the assessment and plan as stated above and agree with all of its relevant components. Linda Kendrick OD December 01, 2023 12:00 PM documented in this encounter [facility] [place] 03-18-2023 Note Patient Education [facility] General Ambulatory Surgery Adult Home Going Instructions [...] by your care provider ? Only take [id number] or prescription medications as directed ? Slowly resume diet ? Activity as directed by your surgeon ? Use extra care climbing stairs or walking with crutches If you have questions or problems that seem to be related to the anesthetic, call the hospital at [phone] and ask for the BALANCER yard truck driver or anesthesiologist. Thank you for the privilege [...] you not to). (more content not included)... [facility] 03-18-2023 Note REYNALDO Education Entere d On: [...] Rosa Faye RN - 03/18/2023 8:36 EDT [facility] 03-18-[address] Entered On: [...] risk situation (congregated living, hemodialysis, infusion clinic, prison, assisted living, shelter, homeless group home, etc.)? : No Rosa Faye RN - [...] Makeup and Jewelry Removed : Yes Nail Icelandic Removed : Yes Wearing Patient Gown/Street Clothes [...] Patient does not take a Beta Lucila oRsa Faye RN - 03/18/2023 8:34 EDT Protocols Patient Safety Grid ID Band on and Verified : Yes Rosa Faye RN - 03/18/2023 9:28 EDT Allergy Targeting Acquisition Officer : Yes Fall Risk Targeting Acquisition Officer : Yes Review of Labs : Yes HCG / UPREG : Yes (Comment: ON ADMIT [Palmer WILEY [place] - 03/06/2023 13:59 EDT] ) Palmer WILEY [place] - 03/18/2023 8:34 EDT Current H&P in Medical Record : Yes Siri Dwyer RN - 03/16/2023 8:32 EDT Urine C&S : Yes (Comment: FAXED & CALLED TO SURGEON'S OFFICE [Palmer WILEY [place] - 03/09/2023 7:56 EDT] ) Palmer WILEY [facility] 03/09/2023 7:56 EDT Verification DCP GENERIC CODE [...] Accept Blood Products if Necessary : Yes Palmer WILEY Frannie - 03/06/2023 14:06 EDT Advance Directive Advanced Directives : No Advance Directive Additional Information : No Palmer WILEY [place] - 03/06/2023 14:06 EDT [facility] 03-06-2023 Note Patient: SUSANNE TOM [facility]: [id number] Age: 42 years Sex: Female : 1980 [...] Charted Heart Rate Peripheral 69 bpm (MAR 06:59) Resp Rate 16 br/min (MAR 06:59) SBP 118 mmHg (MAR 06:59) DBP 79 mmHg (MAR 06:59) BMI 43.96 (MAR 06:59) General: Alert and oriented. Eye: Pupils are [...] No deformity, Normal gait. Integumentary: Warm, Dry, [place]. Neurologic: Alert, Oriented, Normal sensory, Normal motor [...] voice recognition technology. Verbal misinterpretations may occur. [facility] 03-06-2023 Note REYNALDO Education Entere d On: 03/06/2023 13:59 EDT Performed On: 03/06/2023 13:59 EDT by Frannie Chakraborty RN General / Required Barriers to Learning [...] Education Dialysis Surgery - Hospital form # [id number] : Verbalizes understanding Palmer WILEY Frannie - 03/06/2023 13:59 EDT Pain Pain Education Topics Grid Pain Assessment Tool : Verbalizes understanding Pain Can Be Managed/Relieved : Verbalizes understanding Frannie Chakraborty RN 03/06/2023 13:59 EDT Pre Procedure / Surgery Education Procedures Tests Exams GRID NPO : Verbalizes understanding Preoperative Instructions : Verbalizes understanding Preprocedure Tests/Labs : Verbalizes understanding Preprocedure Diet : Verbalizes understanding Nina Chakraborty RNh - 03/06/2023 13:59 EDT [facility] 10-06-2022 Note Post Operative Note: PreOp Diagnosis: Neurogenic bladder, OAB Post-Procedure Diagnosis: Neurogenic bladder, OAB Procedure: 1. Intradetrusor botox 2. Cystoscopy 3. 4. 5. Surgeon: Lina Lopes Resident/Fellow/Other Drill Punch Operator: Johana Cullen Anesthesia: LMA Estimated Blood Loss [...] were correct at the end the case. Norma Cullen MD, Fellow Dr. Lopes was present for all critical portions of the procedure. Attestation: Note Completion: I am a:Resident/Fellow Attending AttestationI was present for the entire procedure Electronic Signatures: Norma Cullen (Fellow)) (Signed 06-Oct-2022 08:30) Authored: Post Operative Note, Note Completion Dominick Lopes) (Signed 07-Oct-2022 08:14) Authored: Note Completion Co-Signer: Post Operative Note, Note Completion Last Updated: 07-Oct-2022 08:14 by Dominick Lopes) [facility] [place] History of Present I llness: [...] the note. I personally evaluated the patient [id number] Electronic Signatures: Norma Cullen (Fellow)) (Signed 05-Oct-2022 19:05) Authored: History of Present Illness, Allergies, Home Medication Review, Impression/Procedure, ERAS, Review of Systems, Physical Exam, Consent, Note Completion Dominick Lopes) (Signed 06-Oct-2022 08:28) Authored: Note Completion Co-Signer: History of Present Illness, Allergies, Home Medication Review, Impression/Procedure, ERAS, Review of Systems, Physical Exam, Consent, Note Completion Last Updated: 06-Oct-2022 08:28 by Dominick Lopes) [facility] [place] note [facility] 09-05-2021 Evaluation note Encounter Date Diagnosis Assessment [...] Follow up with primary care provider or engineering operations leader if no improvement of symptoms. [employer] Other 09-17-2012 History of Past illness Narrative* Problem Noted Date Diagnosed Date Resolved Date care, subsequent 06/07/2012 01/06/2024 Unspecified site of sprain and strain 10/25/2003 05/17/2012 documented as of this encounter (statuses as of 01/09/2024) [address]04-2004 History of Past illness Narrative* Problem Noted Date Diagnosed Date Resolved Date Unspecified site of sprain and strain 10/25/2003 05/17/2012 documented as of this encounter (statuses as of 12/02/2023) [address] History of Past illness Narrative* Problem Noted Date Diagnosed Date Resolved Date Unspecified site of sprain and strain 10/25/2003 05/17/2012 documented as of this encounter (statuses as of 12/08/2023) [address] History of Past illness Narrative* Problem Noted Date Diagnosed Date Resolved Date Unspecified site of sprain and strain 10/25/2003 05/17/2012 documented as of this encounter (statuses as of 12/08/2023) [facility] noteNo assessment information availableSt. [facility] Work Phone: Evaluation note* Diagnosis 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 amblyopia Diplopia [facility]* Diagnosis Tethered cord (HCC)- Primary Other specified congenital anomaly of spinal cord Hx of spina bifida Personal history of (corrected) congenital malformations of integument, limbs, and musculoskeletal systems Chronic bilateral low back pain, unspecified whether sciatica present H/O laminectomy Other postprocedural status Chronic pain syndrome documented in this encounter [facility]* Diagnosis Tethered cord (HCC) [Q06.8]- Primary Other specified congenital anomaly of spinal cord [facility]* Diagnosis Encounter to establish care- Primary Other reasons for seeking consultation Tethered cord (HCC) Other specified congenital anomaly of spinal cord Spina bifida, unspecified hydrocephalus presence, unspecified spinal region (HCC) Other chronic pain Smoker Tobacco use disorder Mood disorder (HCC) Unspecified episodic mood disorder [facility]* Diagnosis Monocular exotropia with other noncomitancies, left eye- Primary Hypotropia of left eye Amblyopia, left eye Amblyopia, unspecified documented [facility]* Diagnosis Urge incontinence- Primary Post-operative pain Other acute postoperative pain Urge incontinence Obesity Obesity, unspecified documented in this encounter [facility] Work Phone: Evaluation note* Diagnosis Tethered cord (HCC)- Primary Other specified congenital anomaly of spinal cord Hx of spina bifida Personal history of (corrected) congenital malformations of integument, limbs, and musculoskeletal systems Chronic bilateral low back pain, unspecified whether sciatica present H/O laminectomy Other postprocedural status Chronic pain syndrome Encounter for observation for other suspected diseases and conditions ruled out Abnormal findings on diagnostic imaging of other parts of musculoskeletal system Pain in thoracic spine Monocular exotropia with other noncomitancies, left eye documented [facility]* Diagnosis Tethered cord (HCC) Other specified congenital anomaly of spinal cord Hx of spina bifida Personal history of (corrected) congenital malformations of integument, limbs, and musculoskeletal systems Chronic bilateral low back pain, unspecified whether sciatica present H/O laminectomy Other postprocedural status Chronic pain syndrome Monocular exotropia with other noncomitancies, left eye documented in this [facility]* Diagnosis Chronic bilateral low back pain, unspecified whether sciatica present- Primary Morbid obesity with BMI of 40.0-44.9, adult (HCC) Morbid obesity Neurogenic bladder Neurogenic bladder, NOS Spina bifida, unspecified hydrocephalus presence, unspecified spinal region (HCC) Tethered cord (HCC) Other specified congenital anomaly of spinal cord Urinary frequency Acute UTI Urinary tract infection, site not specified Monocular exotropia with other noncomitancies, left eye documented in this encounter [facility]* Diagnosis Urge incontinence- Primary documented in this encounter [facility] Work Phone: Evaluation note* Diagnosis Nontoxic single thyroid nodule Nontoxic uninodular goiter Monocular exotropia with other noncomitancies, left eye documented in this encounter [facility] note* Diagnosis Multiple thyroid nodules- Primary Nontoxic multinodular goiter Monocular exotropia with other noncomitancies, left eye documented in this encounter [facility] note* Diagnosis Thyroid nodule- Primary Nontoxic uninodular goiter Monocular exotropia with other noncomitancies, left eye documented in this encounter [facility] note* Diagnosis Multiple thyroid nodules- Primary Nontoxic multinodular goiter Chronic bilateral low back pain, unspecified whether sciatica present Heartburn Nausea Nausea alone Chronic daily headache Headache Monocular exotropia with other noncomitancies, left eye documented in this encounter [facility]* Diagnosis Chronic bilateral low back pain, unspecified whether sciatica present- Primary Tethered cord (HCC) Other specified congenital anomaly of spinal cord Hx of spina bifida Personal history of (corrected) congenital malformations of integument, limbs, and musculoskeletal systems Hx of laminectomy Other postprocedural status H/O laminectomy Other postprocedural status Chronic pain syndrome Anxiety and depression Dysthymic disorder Monocular exotropia with other noncomitancies, left eye documented in this encounter [facility] note* Diagnosis Tethered cord (HCC)- Primary 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, unspecified Monocular exotropia with other noncomitancies, left eye documented in this encounter [facility] note* Diagnosis Chronic bilateral low back pain with sciatica, sciatica laterality unspecified- Primary Monocular exotropia with other noncomitancies, left eye documented in this encounter [facility] note* Diagnosis Chronic bilateral low back pain with sciatica, sciatica laterality unspecified- Primary Tethered cord (HCC) Other specified congenital anomaly of spinal cord Hx of spina bifida Personal history of (corrected) congenital malformations of integument, limbs, and musculoskeletal systems Chronic bilateral low back pain, unspecified whether sciatica present Hx of laminectomy Other postprocedural status H/O laminectomy Other postprocedural status Chronic pain syndrome Anxiety and depression Dysthymic disorder Monocular exotropia with other noncomitancies, left [facility] Chronic bilateral low back pain with sciatica, sciatica laterality unspecified- Primary Monocular exotropia with other noncomitancies, left eye documented in this [facility]* Diagnosis Chronic bilateral low back pain with sciatica, sciatica laterality unspecified- Primary Monocular exotropia with other noncomitancies, left eye documented [facility] this [facility]* Diagnosis Chronic bilateral low back pain with sciatica, sciatica laterality unspecified- Primary Monocular exotropia with other noncomitancies, left eye documented in this [facility]* Diagnosis Thyroid nodule Nontoxic uninodular goiter Monocular exotropia with other noncomitancies, left eye documented [facility] this [facility]* Diagnosis Chronic bilateral low back pain, unspecified whether sciatica present Monocular exotropia with other noncomitancies, left eye documented [facility] this [facility]* Diagnosis Thyroid nodule- Primary Nontoxic uninodular goiter Monocular exotropia with other noncomitancies, left eye documented in this [facility]* Diagnosis Airway compromise- Primary Other diseases of respiratory system, not elsewhere classified Multiple thyroid nodules Nontoxic multinodular goiter Monocular exotropia with other noncomitancies, left eye documented in this encounter [facility]* Diagnosis Non-toxic multinodular goiter- Primary Nontoxic multinodular goiter Monocular exotropia with other noncomitancies, left eye documented in this encounter [facility]* Diagnosis Pre-op evaluation- Primary Preoperative examination, unspecified Spina bifida, unspecified hydrocephalus presence, unspecified spinal region (HCC) Tethered cord (HCC) Other specified congenital anomaly of spinal cord Smoker Tobacco use disorder Neurogenic bladder Neurogenic bladder, NOS Multiple thyroid nodules Nontoxic multinodular goiter Morbid obesity with BMI of 40.0-44.9, adult (HCC) Morbid obesity Chronic bilateral low back pain with right-sided sciatica Monocular exotropia with other noncomitancies, left eye documented in this encounter [facility]* Diagnosis Adjustment disorder with mixed anxiety and depressed mood- Primary Hx of spina bifida Personal history of (corrected) congenital malformations of integument, limbs, and musculoskeletal systems Chronic bilateral low back pain with sciatica, sciatica laterality unspecified Chronic pain syndrome Chronic pain syndrome- Primary Chronic bilateral low back pain with sciatica, sciatica laterality unspecified Tethered cord (HCC) Other specified congenital anomaly of spinal cord Hx of spina bifida Personal history of (corrected) congenital malformations of integument, limbs, and musculoskeletal systems H/O laminectomy Other postprocedural status Anxiety and depression Dysthymic disorder Monocular exotropia with other noncomitancies, left eye documented in this encounter [facility]* Diagnosis Chronic bilateral low back pain, unspecified whether sciatica present documented in this encounter [facility] note* Diagnosis Monocular exotropia with other noncomitancies, left eye- Primary Hypotropia of left eye documented in this encounter [facility] note* Diagnosis Chronic pain syndrome- Primary Hx of spina bifida Personal history of (corrected) congenital malformations of integument, limbs, and musculoskeletal systems Chronic bilateral low back pain with sciatica, sciatica laterality unspecified Tethered cord (HCC) Other specified congenital anomaly of spinal cord Hx of laminectomy Other postprocedural status Anxiety and depression Dysthymic disorder documented in this encounter [facility] note* Diagnosis Monocular exotropia with other noncomitancies, left eye- Primary Hypotropia of left eye documented in this encounter [facility] note* Diagnosis Encounter for observation for other suspected diseases and conditions ruled out Abnormal findings on diagnostic imaging of other parts of musculoskeletal system Pain in thoracic spine documented in this encounter [facility] general Narrative - Reported* Type Description Date Medical History spina bifida Medical History Stage 1 kidney failure Surgical History 3 lower backsurgeries Surgical History 3 stomach surgeries Surgical History 2 rt leg surgeries Surgical History cervical cancer Surgical History eye surgery Surgical History wisdom teeth Surgical History spine surgery Surgical History laminectomy L4 L5 Surgical History botox in bladder Hospitalization History see above [employer] Other Reason for referral (narrative)* Diagnostic Procedure Only (Routine) - Pending Review Specialty Diagnoses / Procedures Referred By Aaliyah t Referred To Contact XR IMAGING Diagnoses Tethered cord (HCC) Hx of spina bifida Chronic bilateral low back pain, unspecified whether sciatica present H/O laminectomy Chronic pain syndrome Procedures XR LUMBAR GENERAL 3V AP/LAT/L5-S1 RADEX SPINE LUMBOSACRAL 2/3 VIEWS Norma Lyman APRN.[facility] [id number] [place] [id number] X[facility] [place] [address] Referral ID Status Reason Start Date Expiration Date Visits Requested Visits Authorized [id number] Pending Review Auto-Generat ed Referral 12/07/2023 01/05/2025 1 1 * Consult, Test, Treat (Routine) - Pending Review Specialty Diagnoses / Procedures Referred By Contac t Referred To Contact Spine Free Soil Diagnoses Tethered cord (HCC) Hx of spina bifida Chronic bilateral low back pain, unspecified whether sciatica present H/O laminectomy Chronic pain syndrome Procedures CONSULT TO [facility] OFFICE/OUTPATIENT [facility] 60 MINUTES Norma Lyman APRN.FILTER ASSEMBLER [address] [place] [address] Referral ID Status Reason Start Date Expiration Date Visits Requested Visits Authorized [id number] Pending Review PCP Requested Referral 12/07/2023 12/06/2024 1 1 * Consult, Test, Treat (Routine) - Authorized Specialty Diagnoses / Procedures Referred By Contac t Referred To Contact Neurology Diagnoses Tethered cord (HCC) Hx of spina bifida Chronic bilateral low back pain, unspecified whether sciatica present H/O laminectomy Chronic pain syndrome Procedures CONSULT TO NEUROLOGY OFFICE/OUTPATIENT [facility] 60 MINUTES Norma Lyman APRN.FILTER ASSEMBLER [id number] [place] [id number] Referral ID Status Reason Start Date Expiration Date Visits Requested Visits Authorized [id number] Authorized PCP Requested Referral 12/07/2023 12/06/2024 1 1 [facility] for visit Narrative* Diagnostic Procedure Only (Routine) - Closed Specialty Diagnoses / Procedures Referred By Contac t Referred To Contact XR IMAGING Diagnoses Tethered cord (HCC) Hx of spina bifida Chronic bilateral low back pain, unspecified whether sciatica present H/O laminectomy Chronic pain syndrome Procedures XR LUMBAR GENERAL 3V AP/LAT/L5-S1 RADEX SPINE LUMBOSACRAL 2/3 VIEWS Norma Lyman, ALEE.FILTER ASSEMBLER [address] [id number] [place] [address] Referral ID Status Reason Start Date Expiration Date V isits Requested Visits Authorized [id number] Closed Auto-Generate d Referral 12/07/2023 01/05/2025 1 1 [facility]* Diagnostic Procedure Only (Routine) - Closed Specialty Diagnoses / Procedures Referred By Aaliyah t Referred To Contact US IMAGING Diagnoses Nontoxic single thyroid nodule Procedures US THYROID/PARATHYROID US SOFT TISSUE HEAD & NECK REAL TIME IMGE Vance Mills PA-C [address] [place] [address] Us [facility] Referral ID Status Reason Start Date Expiration Date V isits Requested Visits Authorized [id number] Closed Auto-Generate d Referral 02/04/2024 03/05/2025 1 1 [facility] [place] Summary Purpose Family History No Family History Records Found Relationship Condition Age at Onset Recorded Date/T nia father Malignant neoplasm Unknown Hypertension Unknown Not Specified Malignant neoplasm Unknown Advance Directives No Advanced Directives Records Found Advance Directive Response Recorded Date/ Time Advance Directives No February 03 8 3:15pm Advance Directive Response Recorded Date/ Time Advance Directives No February 03 8 2:15pm Date Activated Date Inactivated Comments 01/18/2024 9:35 AM Question Answer Comments Plan of Care: Code Status Discussion Completed Decision Maker: Patient Date Activated Date Inactivated Comments 01/18/2024 9:35 AM Question Answer Comments Plan of Care: Code Status Discussion Completed Decision Maker: Patient Chief Complaint and Reason for Visit Chief Complaint LBP Abdominal Pain, Constipation, Bloody Diarrhea Abdominal Pain, Constipation, Bloody Diarrhea Chief Complaint LBP/do not move must see PT for this visit Chief Complaint numbness in face, lo ss of hearing Reason for Referral Specialty Diagnoses / Procedures Referred By Aaliyah t Referred To Contact CT IMAGING Diagnoses Multiple thyroid nodules Procedures CT NECK SOFT TISSUE W IVCON CT SOFT TISSUE NECK W/[place] [address] [place] [address] Ct [facility] [place] [address] Referral ID Status Reason Start Date Expiration Date Visits Requested Visits Authorized [id number] Additional Clinical Info Needed Auto-Generat ed Referral 04/05/2024 05/05/2025 1 1 Specialty Diagnoses / Procedures Referred By Contac t Referred To Contact Diagnoses Thyroid nodule Procedures CONSULT TO ENDOCRINE SURGERY OFFICE/OUTPATIENT [facility] 60 MINUTES Jailene Dave MD [address] [facility]ITAL[address] [address] Referral ID Status Reason Start Date Expiration Date Visits Requested Visits Authorized [id number] Authorized PCP Requested Referral 03/25/2024 03/25/2025 1 1 Specialty Diagnoses / Procedures Referred By Contac t Referred To Contact Endocrinology Diagnoses Thyroid nodule Procedures CONSULT TO ENDOCRINOLOGY OFFICE/OUTPATIENT [facility] 60 MINUTES Aidan Montenegro MD [address] [place] [address] Referral ID Status Reason Start Date Expiration Date Visits Requested Visits Authorized [id number] Authorized PCP Requested Referral 02/12/2024 02/11/2025 1 1 Specialty Diagnoses / Procedures Referred By Contac t Referred To Contact Ent - Otolaryngology Diagnoses Multiple thyroid nodules Procedures CONSULT TO ENT OFFICE/OUTPATIENT [facility] 60 MINUTES Vance Daley PA-C [address] [place] [address] Referral ID Status Reason Start Date Expiration Date Visits Requested Visits Authorized [id number] Authorized PCP Requested Referral 02/15/2024 02/11/2025 1 1 Specialty Diagnoses / Procedures Referred By Contac t Referred To Contact MR IMAGING Diagnoses Pain in thoracic spine Procedures MRI THORACIC SPINE WO IVCON MRI SPINAL CANAL THORACIC W/O CONTRAST MATRL Vance Daley PA-C [address] [place] [id number] Mr [facility] [place] [facility] Referral ID Status Reason Start Date Expiration Date Visits Requested Visits Authorized [id number] Additional Clinical Info Needed Auto-Generat ed Referral 01/19/2024 02/17/2025 1 1 Specialty Diagnoses / Procedures Referred By Contac t Referred To Contact MR IMAGING Diagnoses Abnormal findings on diagnostic imaging of other parts of musculoskeletal system Procedures MRI CERVICAL SPINE WO IVCON MRI SPINAL CANAL CERVICAL W/O CONTRAST MATRL Vance Daley PA-C [address] [place] [address] [facility] [place] [address] Referral ID Status Reason Start Date Expiration Date Visits Requested Visits Authorized [id number] Pending Review Auto-Generat ed Referral 01/19/2024 02/17/2025 1 1 Specialty Diagnoses / Procedures Referred By Contac t Referred To Contact MR IMAGING Diagnoses Encounter for observation for other suspected diseases and conditions ruled out Procedures MRI LUMBAR SPINE WO IVCON MRI SPINAL CANAL LUMBAR W/O CONTRAST MATERIAL Vance Daley PA-C [address] [place] [address] [facility] [place] [address] Referral ID Status Reason Start Date Expiration Date Visits Requested Visits Authorized [id number] Pending Review Auto-Generat ed Referral 01/19/2024 02/17/2025 1 1 Additional Source Comments INFORMATION SOURCE (unrecogn ized section and content) DATE CREATED AUTHOR 05/29/2020 [facility] DATE CREATED AUTHOR AUTHOR'S ORGANIZ ATION 12/27/2022 [facility] DATE CREATED AUTHOR AUTHOR'S ORGANIZ ATION 03/01/[address] [facility] DATE CREATED AUTHOR AUTHOR'S ORGANIZ ATION 03/20/2023 [facility] DATE CREATED AUTHOR AUTHOR'S ORGANIZ ATION 11/22/2023 [facility] DATE CREATED AUTHOR AUTHOR'S ORGANIZ ATION 01/25/2024 [facility] DATE CREATED AUTHOR AUTHOR'S ORGANIZ ATION 02/10/2024 [facility] DATE CREATED AUTHOR AUTHOR'S ORGANIZ ATION 04/23/2024 [facility] DATE CREATED AUTHOR AUTHOR'S ORGANIZ ATION 05/26/2024 [facility] DATE CREATED AUTHOR AUTHOR'S ORGANIZ ATION 06/11/2024 [facility] REASON FOR VISIT (unrecogniz ed section and content) Reason Comments Strabismus Evaluation Reason Comments New Patient Low Back pain Reason Comments Nurse Triage Call Reason Comments Establish Care Back Pain Sciatic Results Had labs done from a [facility]her doctor results were [facility] Told to get thyroid panel was not done with recent labs hair loss Specialty Diagnoses / Procedures Referred By Contac t Referred To Contact Diagnoses Urge incontinence Urge incontinence [N39.41] Procedures [place] CYSTOURETHROSCOPY INJ CHEMODENERVATION BLADDER CYSTOSCOPY, WITH BOTULINUM TOXIN INJECTION [address] [place] [address] [facility] [address] [place] [address] [place] [address] [place] [address] Referral ID Status Reason Start Date Expiration Date Visits Re quested Visits Authorized [id number] 1 1 Reason Comments New Patient Specialty Diagnoses / Procedures Referred By Contac t Referred To Contact Neurology Diagnoses Tethered cord (HCC) Hx of spina bifida Chronic bilateral low back pain, unspecified whether sciatica present H/O laminectomy Chronic pain syndrome Procedures CONSULT TO NEUROLOGY OFFICE/OUTPATIENT [facility] 60 MINUTES Norma Lyman, ALEE.FILTER ASSEMBLER [address] [place] [address] Referral ID Status Reason Start Date Expiration Date V isits Requested Visits Authorized [id number] Closed PCP Requested Referral 12/07/2023 12/06/2024 1 1 Reason Comments Follow Up Lab resultsT3, state s she put a lot of weight on quickly temp goes down instead of up when sick. UTI Bladder pain, strong odor. Reason Comments Received Outside Medical Records Receive d outside medical records on providers desk for review. Reason Comments Botox POV Reason Comments Request Outside Medical Records Reason Comments Results Reason Comments Rx Refills Thyroid Problem 4 nodules. Neck [benito n Reason Comments New Patient Specialty Diagnoses / Procedures Referred By Contac t Referred To Contact Spine Free [place]il / NEUROLOGY PAIN Diagnoses Tethered cord (HCC) Hx of spina bifida Chronic bilateral low back pain, unspecified whether sciatica present H/O laminectomy Chronic pain syndrome Procedures CONSULT TO [facility] OFFICE/OUTPATIENT [facility] 60 MINUTES Norma Lyman, ALEE.FILTER ASSEMBLER [address] [place] [address] Ne[facility] [address] [place] [address] Referral ID Status Reason Start Date Expiration Date Visits Requested Visits Authorized [id number] Authorized PCP Requested Referral 02/03/2024 09/20/2024 99 99 Reason Comments Follow Up Reason Comments Infusion Specialty Diagnoses / Procedures Referred By Contac t Referred To Contact Neurology / NEUROLOGY PAIN Diagnoses KETAMINE INFUSIONS Procedures INFUSION KETAMINE Self Spine Chronic Pain Infusions Walker [address] [id number] [place] [id number] Referral ID Status Reason Start Date Expiration Date Visits Requested Visits Authorized [id number] Authorized Patient Cleared - INN Insurance Found 03/10/2024 06/08/2024 1 99 Reason Comments Thyroid Nodule Specialty Diagnoses / Procedures Referred By Contac t Referred To Contact Endocrinology Diagnoses Thyroid nodule Procedures CONSULT TO ENDOCRINOLOGY OFFICE/OUTPATIENT [facility] 60 MINUTES Aidan Montenegro MD [address] [place] [address] Referral ID Status Reason Start Date Expiration Date V isits Requested Visits Authorized [id number] Closed PCP Requested Referral 02/12/2024 02/11/2025 1 1 Reason Onset Date Comments Refill Request 03/28/2024 Reason Comments Thyroid Nodule FNAB rt mid lower po le and rt isthmus Reason Comments Consult Referred by Neurolog y for throat nodules which endo is seeing her for. Bx done last week. Results not discussed yet. Coughs up yellow phlegm daily Specialty Diagnoses / Procedures Referred By Contac t Referred To Contact Ent - Otolaryngology Diagnoses Multiple thyroid nodules Procedures CONSULT TO ENT OFFICE/OUTPATIENT [facility] 60 MINUTES Vance Daley PA-C [address] [place] [address] Referral ID Status Reason Start Date Expiration Date V isits Requested Visits Authorized [id number] Closed PCP Requested Referral 02/15/2024 02/11/2025 1 1 Reason Comments Results Reason Comments Consult Reason Onset Date Comments Refill Request 05/01/2024 Reason Comments Post Op Reason Comments Medication Problem Specialty Diagnoses / Procedures Referred By Aaliyah grey Referred To Contact MR IMAGING Diagnoses Pain in thoracic spine Procedures MRI THORACIC SPINE WO IVCON MRI SPINAL CANAL THORACIC W/O CONTRAST Vance Smith PA-C [address] [place] [address] Mr [facility] [place] [address] Referral ID Status Reason Start Date Expiration Date V isits Requested Visits Authorized [id number] Closed Auto-Generate d Referral 01/21/2024 03/21/2024 1 1 Care Teams (unrecognized sec tion and content) Team Status: Inactive Member Role Status Teo Sharma DO Primary Care Provider Active Simone Warren MD Attending Provider Active Team Status: Active Member Role Status Dates Liya Peña MD Attending Provider Active Deshawn Sharma DO Primary Care Provider Active Team Status: Active Member Role Status Teo Sharma DO Primary Care Provider Active Team Status: Inactive Member Role Status Dates Liya Peña MD Attending Provider Active Deshawn Sharma DO Primary Care Provider Active Team Status: Active Member Role Status Teo Angel [facility] Primary Care Provider Active Team Status: Inactive Member Role Status Dates Shon Angel [facility] Primary Care Provider Active Eric Curran DO Emergency Provider Active Forest [employer]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 Relationship Specialty Start Date End Date Deshawn Sharma Sr., DO PCP - General Family Medicine 04/21/17 Deshawn Sharma Sr., DO Family Medicine 02/15/17 Forest Ecologist Relationship Specialty Start Date End Date Deshawn Sharma Sr., DO PCP - General Family Medicine 04/21/17 Deshawn Sharma Sr., DO Family Medicine 02/15/17 Forest Ecologist Relationship Specialty Start Date End Date Deshawn Sharma Sr., DO PCP - General Family Medicine 04/21/17 Deshawn Sharma Sr., DO Family Medicine 02/15/17 Forest Ecologist Relationship Specialty Start Date End Date Aidan Montenegro MD [address] [place] [address] PCP - General Internal Medicine 01/06/24 Deshawn Sharma Sr., DO Family Medicine 02/15/17 Forest Ecologist Relationship Specialty Start Date End Date Aidan Montenegro MD [address] [place] [address] PCP - General Internal Medicine 01/06/24 Deshawn Sharma Sr., DO Family Medicine 02/15/17 Forest Ecologist Relationship Specialty Start Date End Date Deshawn Sharma DO PCP - General 09/21/19 Forest Ecologist Relationship Specialty Start Date End Date Aidan Montenegro MD [address] [place] [address] PCP - General Internal Medicine 01/06/24 Deshawn Sharma Sr., DO Family Medicine 02/15/17 Forest Ecologist Relationship Specialty Start Date End Date Aidan Montenegro MD [address] [place] [address] PCP - General Internal Medicine 01/06/24 Deshawn Sharma Sr., DO Family Medicine 02/15/17 Forest Ecologist Relationship Specialty Start Date End Date Aidan Montenegro MD [address] [place] [address] PCP - General Internal Medicine 01/06/24 Deshawn Sharma Sr., DO Family Medicine 02/15/17 Forest Ecologist Relationship Specialty Start Date End Date Aidan Montenegro MD [address] [place] [address] PCP - General Internal Medicine 01/06/24 Deshawn Sharma Sr., DO Family Medicine 02/15/17 Forest Ecologist Relationship Specialty Start Date End Date Deshawn Sharma DO [address] [place] [address] PCP - General Family Medicine 02/05/24 Forest Ecologist Relationship Specialty Start Date End Date Aidan Montenegro MD [address] [place] [address] PCP - General Internal Medicine 01/06/24 Deshawn Sharma Sr., DO Family Medicine 02/15/17 Forest Ecologist Relationship Specialty Start Date End Date Aidan Montenegro MD [address] [place] [address] PCP - General Internal Medicine 01/06/24 Deshawn Sharma Sr., DO Family Medicine 02/15/17 Forest Ecologist Relationship Specialty Start Date End Date Aidan Montenegro MD [address] [place] [address] PCP - General Internal Medicine 01/06/24 Deshawn Sharma SrAnabel, DO Family Medicine 02/15/17 Forest Ecologist Relationship Specialty Start Date End Date Aidan Montenegro MD [address] [place] [address] PCP - General Internal Medicine 01/06/24 Deshawn Sharma Sr., DO Family Medicine 02/15/17 Forest Ecologist Relationship Specialty Start Date End Date Aidan Montenegro MD [address] [place] [address] PCP - General Internal Medicine 01/06/24 Deshawn Sharma SrAnabel, DO Family Medicine 02/15/17 Forest Ecologist Relationship Specialty Start Date End Date Aidan Montenegro MD [address] [place] [address] PCP - General Internal Medicine 01/06/24 Deshawn Sharma SrAnabel, DO Family Medicine 02/15/17 Forest Ecologist Relationship Specialty Start Date End Date Aidan Montenegro MD [address] [place] [address] PCP - General Internal Medicine 01/06/24 Deshawn Sharma SrAnabel, DO Family Medicine 02/15/17 Forest Ecologist Relationship Specialty Start Date End Date Aidan Montenegro MD [address] [place] [address] PCP - General Internal Medicine 01/06/24 Deshawn Sharma Sr., DO Family Medicine 02/15/17 Forest Ecologist Relationship Specialty Start Date End Date Aidan Montenegro MD [address] [place] [address] PCP - General Internal Medicine 01/06/24 Deshawn Sharma Sr., DO Family Medicine 02/15/17 Forest Ecologist Relationship Specialty Start Date End Date Aidan Montenegro MD [address] [place] [address] PCP - General Internal Medicine 01/06/24 Deshawn Sharma Sr., DO Family Medicine 02/15/17 Forest Ecologist Relationship Specialty Start Date End Date Aidan Montenegro MD [address] [facility] [place] [address] PCP - General Internal Medicine 01/06/24 Deshawn Sharma Sr., DO Family Medicine 02/15/17 Forest Ecologist Relationship Specialty Start Date End Date Aidan Montenegro MD [address] [place] [address] PCP - General Internal Medicine 01/06/24 Deshawn Sharma Sr., DO Family Medicine 02/15/17 Forest Ecologist Relationship Specialty Start Date End Date Aidan Montenegro MD [address] [place] [address] PCP - General Internal Medicine 01/06/24 Deshawn Sharma Sr., DO Family Medicine 02/15/17 Forest Ecologist Relationship Specialty Start Date End Date Aidan Montenegro MD [address] [place] [address] PCP - General Internal Medicine 01/06/24 Deshawn Sharma SrAnabel, DO Family Medicine 02/15/17 Forest Ecologist Relationship Specialty Start Date End Date Aidan Montenegro MD [address] [place] [address] PCP - General Internal Medicine 01/06/24 Deshawn Sharma SrAnabel, DO Family Medicine 02/15/17 Forest Ecologist Relationship Specialty Start Date End Date Aidan Montenegro MD [address] [place] [address] PCP - General Internal Medicine 01/06/24 Deshawn Sharma Sr., DO Family Medicine 02/15/17 Forest Ecologist Relationship Specialty Start Date End Date Aidan Montenegro MD [address] [place] [address] PCP - General Internal Medicine 01/06/24 Deshawn Sharma Sr., DO Family Medicine 02/15/17 04/05/24 Forest Ecologist Relationship Specialty Start Date End Date Aidan Montenegro MD [address] [place] [address] PCP - General Internal Medicine 01/06/24 Forest Ecologist Relationship Specialty Start Date End Date Aidan Montenegro MD [address] [place] [address] PCP - General Internal Medicine 01/06/24 Forest Ecologist Relationship Specialty Start Date End Date Aidan Montenegro MD [address] [place] [address] PCP - General Internal Medicine 01/06/24 Forest Ecologist Relationship Specialty Start Date End Date Aidan Montenegro MD [address] [facility] [place] [address] PCP - General Internal Medicine 01/06/24 Forest Ecologist Relationship Specialty Start Date End Date Aidan Montenegro MD [address] [facility] [place] [address] PCP - General Internal Medicine 01/06/24 Forest Ecologist Relationship Specialty Start Date End Date Aidan Montenegro MD [address] [place] [address] PCP - General Internal Medicine 01/06/24 Forest Ecologist Relationship Specialty Start Date End Date Aidan Montenegro MD [address] [place] [address] PCP - General Internal Medicine 01/06/24 Forest Ecologist Relationship Specialty Start Date End Date Aidan Montenegro MD [address] [place] [address] PCP - General Internal Medicine 01/06/24 Forest Ecologist Relationship Specialty Start Date End Date Aidan Montenegro MD [address] [place] [address] PCP - General Internal Medicine 01/06/24 Forest Ecologist Relationship Specialty Start Date End Date Aidan Montenegro MD [address] [place] [address] PCP - General Internal Medicine 01/06/24 Deshawn Sharma Sr., DO Family Medicine 02/15/17 04/05/24 Goals (unrecognized section and content) Goals may be documented in a n alternate section Source Comments (unrecognize d section and content) In the event this informatio n is protected by the Federal Confidentiality of Alcohol and Drug Abuse Patient Records regulations: The Federal rules restrict any use of the information to criminally investigate or prosecute any alcohol or drug abuse patient.[facility] [place] the event this information is protected by the Federal Confidentiality of Alcohol and Drug Abuse Patient Records regulations: The Federal rules restrict any use of the information to criminally investigate or prosecute any alcohol or drug abuse patient.[facility] [place]In the event this information is protected by the Federal Confidentiality of Alcohol and Drug Abuse Patient Records regulations: The Federal rules restrict any use of the information to criminally investigate or prosecute any alcohol or drug abuse patient.[facility] [place] the event this information is protected by the Federal Confidentiality of Alcohol and Drug Abuse Patient Records regulations: The Federal rules restrict any use of the information to criminally investigate or prosecute any alcohol or drug abuse patient.[facility] [place] the event this information is protected by the Federal Confidentiality of Alcohol and Drug Abuse Patient Records regulations: The Federal rules restrict any use of the information to criminally investigate or prosecute any alcohol or drug abuse patient.[facility] [place] the event this information is protected by the Federal Confidentiality of Alcohol and Drug Abuse Patient Records regulations: The Federal rules restrict any use of the information to criminally investigate or prosecute any alcohol or drug abuse patient.[facility] [place]In the event this information is protected by the Federal Confidentiality of Alcohol and Drug Abuse Patient Records regulations: The Federal rules restrict any use of the information to criminally investigate or prosecute any alcohol or drug abuse patient.[facility] [place]In the event this information is protected by the Federal Confidentiality of Alcohol and Drug Abuse Patient Records regulations: The Federal rules restrict any use of the information to criminally investigate or prosecute any alcohol or drug abuse patient.[facility] [place]In the event this information is protected by the Federal Confidentiality of Alcohol and Drug Abuse Patient Records regulations: The Federal rules restrict any use of the information to criminally investigate or prosecute any alcohol or drug abuse patient.[facility] [place]In the event this information is protected by the Federal Confidentiality of Alcohol and Drug Abuse Patient Records regulations: The Federal rules restrict any use of the information to criminally investigate or prosecute any alcohol or drug abuse patient.[facility] [place]In the event this information is protected by the Federal Confidentiality of Alcohol and Drug Abuse Patient Records regulations: The Federal rules restrict any use of the information to criminally investigate or prosecute any alcohol or drug abuse patient.[facility] [place] the event this information is protected by the Federal Confidentiality of Alcohol and Drug Abuse Patient Records regulations: The Federal rules restrict any use of the information to criminally investigate or prosecute any alcohol or drug abuse patient.[facility] [place]In the event this information is protected by the Federal Confidentiality of Alcohol and Drug Abuse Patient Records regulations: The Federal rules restrict any use of the information to criminally investigate or prosecute any alcohol or drug abuse patient.[facility] [place]In the event this information is protected by the Federal Confidentiality of Alcohol and Drug Abuse Patient Records regulations: The Federal rules restrict any use of the information to criminally investigate or prosecute any alcohol or drug abuse patient.[facility] [place]In the event this information is protected by the Federal Confidentiality of Alcohol and Drug Abuse Patient Records regulations: The Federal rules restrict any use of the information to criminally investigate or prosecute any alcohol or drug abuse patient.[facility] [place]In the event this information is protected by the Federal Confidentiality of Alcohol and Drug Abuse Patient Records regulations: The Federal rules restrict any use of the information to criminally investigate or prosecute any alcohol or drug abuse patient.[facility] [place]In the event this information is protected by the Federal Confidentiality of Alcohol and Drug Abuse Patient Records regulations: The Federal rules restrict any use of the information to criminally investigate or prosecute any alcohol or drug abuse patient.[facility] [place]In the event this information is protected by the Federal Confidentiality of Alcohol and Drug Abuse Patient Records regulations: The Federal rules restrict any use of the information to criminally investigate or prosecute any alcohol or drug abuse patient.[facility] [place]In the event this information is protected by the Federal Confidentiality of Alcohol and Drug Abuse Patient Records regulations: The Federal rules restrict any use of the information to criminally investigate or prosecute any alcohol or drug abuse patient.[facility] [place]In the event this information is protected by the Federal Confidentiality of Alcohol and Drug Abuse Patient Records regulations: The Federal rules restrict any use of the information to criminally investigate or prosecute any alcohol or drug abuse patient.[facility] [place]In the event this information is protected by the Federal Confidentiality of Alcohol and Drug Abuse Patient Records regulations: The Federal rules restrict any use of the information to criminally investigate or prosecute any alcohol or drug abuse patient.[facility] [place]In the event this information is protected by the Federal Confidentiality of Alcohol and Drug Abuse Patient Records regulations: The Federal rules restrict any use of the information to criminally investigate or prosecute any alcohol or drug abuse patient.[facility] [place]In the event this information is protected by the Federal Confidentiality of Alcohol and Drug Abuse Patient Records regulations: The Federal rules restrict any use of the information to criminally investigate or prosecute any alcohol or drug abuse patient.[facility] [place]In the event this information is protected by the Federal Confidentiality of Alcohol and Drug Abuse Patient Records regulations: The Federal rules restrict any use of the information to criminally investigate or prosecute any alcohol or drug abuse patient.[facility] [place]In the event this information is protected by the Federal Confidentiality of Alcohol and Drug Abuse Patient Records regulations: The Federal rules restrict any use of the information to criminally investigate or prosecute any alcohol or drug abuse patient.[facility] [place]In the event this information is protected by the Federal Confidentiality of Alcohol and Drug Abuse Patient Records regulations: The Federal rules restrict any use of the information to criminally investigate or prosecute any alcohol or drug abuse patient.[facility] [place]In the event this information is protected by the Federal Confidentiality of Alcohol and Drug Abuse Patient Records regulations: The Federal rules restrict any use of the information to criminally investigate or prosecute any alcohol or drug abuse patient.[facility] [place]In the event this information is protected by the Federal Confidentiality of Alcohol and Drug Abuse Patient Records regulations: The Federal rules restrict any use of the information to criminally investigate or prosecute any alcohol or drug abuse patient.[facility] [place]In the event this information is protected by the Federal Confidentiality of Alcohol and Drug Abuse Patient Records regulations: The Federal rules restrict any use of the information to criminally investigate or prosecute any alcohol or drug abuse patient.[facility] [place]In the event this information is protected by the Federal Confidentiality of Alcohol and Drug Abuse Patient Records regulations: The Federal rules restrict any use of the information to criminally investigate or prosecute any alcohol or drug abuse patient.[facility] [place]In the event this information is protected by the Federal Confidentiality of Alcohol and Drug Abuse Patient Records regulations: The Federal rules restrict any use of the information to criminally investigate or prosecute any alcohol or drug abuse patient.[facility] [place]In the event this information is protected by the Federal Confidentiality of Alcohol and Drug Abuse Patient Records regulations: The Federal rules restrict any use of the information to criminally investigate or prosecute any alcohol or drug abuse patient.[facility] [place]In the event this information is protected by the Federal Confidentiality of Alcohol and Drug Abuse Patient Records regulations: The Federal rules restrict any use of the information to criminally investigate or prosecute any alcohol or drug abuse patient.[facility] [place]In the event this information is protected by the Federal Confidentiality of Alcohol and Drug Abuse Patient Records regulations: The Federal rules restrict any use of the information to criminally investigate or prosecute any alcohol or drug abuse patient.[facility] [place]In the event this information is protected by the Federal Confidentiality of Alcohol and Drug Abuse Patient Records regulations: The Federal rules restrict any use of the information to criminally investigate or prosecute any alcohol or drug abuse patient.[facility] [place]In the event this information is protected by the Federal Confidentiality of Alcohol and Drug Abuse Patient Records regulations: The Federal rules restrict any use of the information to criminally investigate or prosecute any alcohol or drug abuse patient.[facility] [place]In the event this information is protected by the Federal Confidentiality of Alcohol and Drug Abuse Patient Records regulations: The Federal rules restrict any use of the information to criminally investigate or prosecute any alcohol or drug abuse patient.[facility] [place]In the event this information is protected by the Federal Confidentiality of Alcohol and Drug Abuse Patient Records regulations: The Federal rules restrict any use of the information to criminally investigate or prosecute any alcohol or drug abuse patient.[facility] [place]In the event this information is protected by the Federal Confidentiality of Alcohol and Drug Abuse Patient Records regulations: The Federal rules restrict any use of the information to criminally investigate or prosecute any alcohol or drug abuse patient.[facility] [place] Scheduled Active and Recently Administ ered Medications (unrecognized section and content) Medication Order 01/16/2024 01/17/2024 01/18/2024 acetaminophen (Tylenol) tablet 975 mg 975 mg, oral, Once, On Thu01/18/24 at 1200, For 1 dose, Recovery (only), If ordered PRN for pain, nurse is permitted to administer this medication for higher pain scores based on patient preference? Yes 1200 (Due) ceFAZolin in dextrose (iso-os) (Ancef) IVPB 2 g (COMPLETED) 2 g, intravenous, Administer over 30 Minutes, Once, On Thu01/18/24 at 1000, For 1 dose, Preprocedure, Administer within 60 minutes prior to incision. premix bag, Dosing of this medication varies based on severity of illness. Does this patient have sepsis or concern for sepsis (probable or documented infection plus systemic manifestations of infection)? No, Suspected Indication (Select all that apply): Surgical Prophylaxis 1019 (Given - Provid er: Maribel Esposito, [employer] TECHNOLOGIST[employer] WORKER) lidocaine (Xylocaine) 10 mg/mL (1 %) injection 1 mg 1 mg (0.1 mL), subcutaneous, Once, On Thu01/18/24 at 1200, For 1 dose, Recovery (only), To be used for IV insertion ONLY 1200 (Due) onabotulinumtoxinA (Botox) injection 200 Units (COMPLETED) 200 Units, intramuscular, Once, On Thu01/18/24 at 1000, For 1 dose 1000 (Due)1033 (Give n - Provider: Dominick Lopes MD) phenazopyridine (Pyridium) tablet 200 mg 200 mg, oral, 3 times daily with meals, First dose on Thu01/18/24 at 1215, May discolor urine (orange). 1201 (Given - Provid er: Shelbie Chung RN)1700 (Due) Continuous Medication Order 01/16/2024 01/17/2024 01/18/2024 lactated Ringer's infusion 100 mL/hr, intravenous, Continuous, Starting on Thu01/18/24 at 1200, Recovery (only) 1200 (Due) PRN Medication Order 01/16/2024 01/17/2024 01/18/2024 albuterol 2.5 mg /3 mL (0.083 %) nebulizer solution 2.5 mg 2.5 mg, nebulization, Once as needed, wheezing, Starting on Thu01/18/24 at 1133, For 1 dose, Recovery (only) diphenhydrAMINE (BENADryl) injection 12.5 mg 12.5 mg, intravenous, Once as needed, itching, allergic reaction, Starting on Thu01/18/24 at 1133, For 1 dose, Recovery (only) hydrALAZINE (Apresoline) injection 5 mg 5 mg, intravenous, Administer over 2 Minutes, Every 30 min PRN, high blood pressure, systolic blood pressure greater than 180 mmHg and heart rate less than 60 BPM, Starting on Thu01/18/24 at 1133, For 2 doses, Recovery (only) HYDROcodone-acetaminophen (Burns) 5-325 mg per tablet 1 tablet 1 tablet, oral, Every 6 hours PRN, pain severe (7-10), first line, Starting on Thu01/18/24 at 1134, If ordered PRN for pain, nurse is permitted to administer this medication for higher pain scores based on patient preference? Yes 1202 (Given - Provid er: Shelbie Chung RN) HYDROmorphone (Dilaudid) injection 0.5 mg 0.5 mg, intravenous, Every 5 min PRN, pain severe (7-10), first line, Starting on Thu01/18/24 at 1133, Recovery (only), Max total of 4 mg regardless of dose. labetaloL (Normodyne,Trandate) injection 5 mg 5 mg, intravenous, Administer over 1 Minutes, Once as needed, systolic blood pressure greater than 180 mmHg, dystolic blood pressure greater than 100 mmHg and heart rate greater than 60 BPM, Starting on Thu01/18/24 at 1133, For 1 dose, Recovery (only) ondansetron (Zofran) injection 4 mg 4 mg, intravenous, Once as needed, nausea/vomiting, first line, Starting on Thu01/18/24 at 1133, For 1 dose, Recovery (only), When administering via IV Push, administer over 3-5 minutes. oxyCODONE (Roxicodone) immediate release tablet 5 mg 5 mg, oral, Every 4 hours PRN, pain mild (1-3), first line, Starting on Thu01/18/24 at 1133, Recovery (only), When able to take oral medications., If ordered PRN for pain, nurse is permitted to administer this medication for higher pain scores based on patient preference? Yes promethazine (Phenergan) 6.25 mg in sodium chloride 0.9% 50 mL IV 6.25 mg, intravenous, Administer over 15 Minutes, Once as needed, Nausea/vomiting, second line, Starting on Thu01/18/24 at 1133, For 1 dose, Recovery (only) FOR RECORDS PERTAINING TO PATIENTS WHO ARE [...] BE BASED ON THE PRIMARY CLINICAL RECORDS. [employer] [facility]. provides no warranty or guarantee of the accuracy or completeness of information in this document.
--- NOTE | 2024-06-17 14:40 | CT_ITS ---
The [address] [address] Patient Name: WENDI SALEH MRN: [id number] date: 1980 Sex: F Assigned Patient Location: ER Current Patient Location: ER Accession/Order Number: [id number] Exam Date: 06/17/2024 15:35 Report Date: 06/17/2024 16:03 At the request of: SOHEILA LEIVA Procedure: CT abdomen pelvis w con EXAM: CT scan of the abdomen and pelvis using 100 and mL of IV iodinated contrast. Dose reduction technique used: Automated exposure control and/or adjustment of the mA and/or kV according to patient size and/or use of iterative reconstruction technique. REASON FOR EXAM: Flank pain, UTI COMPARISON: None FINDINGS: Bladder wall thickening versus incomplete distention. Right renal parenchymal scarring. Prominent left extrarenal pelvis without hydronephrosis. L4-5 laminectomies. Normal appendix. No free fluid in the abdomen or pelvis. No free intraperitoneal air. No dilated or thickened loops of small bowel or colon. No hydronephrosis or obstructing renal or ureteral calculi. Liver, pancreas, spleen, bilateral kidneys, and bilateral adrenal glands are otherwise unremarkable. No lymphadenopathy in the abdomen or pelvis. Remainder unremarkable. CT/CT abdomen pelvis w con IMPRESSION: 1. Bladder wall thickening versus incomplete distention, correlate clinically for evidence of cystitis. 2. Otherwise, no acute abnormalities in the abdomen or pelvis. Electronically authenticated by: SHWETHA HOOD Date: 06/17/2024 16:03
--- NOTE | 2024-06-17 14:42 | ED.GENADUL1 ---
HPI HPI - General Adult General Chief complaint: Urogenital-Female Stated complaint: poss kidney infection Time Seen by Provider: 06/17/24 14:21 Source: patient Mode of arrival: walk-in Limitations: no limitations History of Present Illness HPI narrative: Patient is a 43-year-old female who presents to the emergency department for the evaluation of multiple complaints. She states that her most pressing concern that brought her to the ER is 2 weeks of urinary frequency and pressure. She has a history of neurogenic bladder from spina bifida and self caths multiple times daily. She states that the symptoms have been present for 2 weeks, she had an appointment with her urologist several days ago but did not feel well so she declined to go to the appointment and states she thinks that she needs antibiotics. She states she went to urgent care just prior to arrival but when she listed her variety of complaints, they referred her to the ER. She has not had any objective fevers. She reports nausea, lightheadedness, left eye drainage for 2 to 3 days, improving jaw pain to the right jaw. She also complains of mild bilateral low back pain, upper abdominal pain. She states she is worried about her kidneys and developing a kidney infection and she is concerned that the eye drainage and jaw pain represent a blood infection that is causing infections to other areas of her body. Related Data Home Medications ?Medication ?Instructions ?Recorded ?Confirmed pregabalin 75 mg capsule 75 mg PO Q8H 11/21/23 11/21/23 tizanidine 4 mg tablet 4 mg PO Q12H 11/21/23 11/21/23 tramadol 50 mg tablet 50 mg PO Q8H 11/21/23 11/21/23 Previous Rx's ?Medication ?Instructions ?Recorded levofloxacin 750 mg tablet 750 mg PO DAILY 4 days #4 tabs 11/21/23 cefdinir 300 mg capsule 300 mg PO BID 7 days #14 caps 06/17/24 ketorolac 10 mg tablet 10 mg PO TID PRN pain #10 tabs 06/17/24 ondansetron 4 mg disintegrating 4 mg PO Q6H PRN nausea and 06/17/24 tablet vomiting #12 tabs Allergies Allergy/AdvReac Type Severity Reaction Status Date / Time amoxicillin Allergy Severe Hives Verified 06/17/24 14:33 latex Allergy Severe Anaphylaxis Verified 06/17/24 14:33 silver sulfadiazine AdvReac Intermediate Blister Verified 06/17/24 14:33 [From Silvadene] ciprofloxacin AdvReac Mild itching Verified 06/17/24 14:33 Opioid HPI Opioid Management Most Recent Opioid Data: Last Pain Scale 4 06/17/24 15:52 Last ED Pain Assessment 06/17/24 15:52 Ur Phencyclidine Scrn Negative (NEGATIVE) 12/22/23 13:05 Review of Systems ROS Constitutional Denies: fever or chills Eyes Reports: eye discharge Ears, nose, mouth, and throat Reports: mouth pain; Denies: throat pain, swelling of lips/tongue, nasal discharge or nasal congestion Cardiovascular Denies: chest pain Respiratory Denies: shortness of breath or cough Gastrointestinal Reports: abdominal pain and nausea; Denies: vomiting or diarrhea Genitourinary Reports: urinary frequency Musculoskeletal Reports: back pain Integumentary/Breast Denies: rash Hematologic/Lymphatic Denies: easy bruising or easy bleeding PFSH PFSH Social History Smoking status: Current every day smoker Little interest or pleasure in doing things: not at all Feeling down, depressed, or hopeless: not at all Exam Narrative Exam Narrative: Gen.: Awake, alert, in no distress Head: Normocephalic, atraumatic ENT: Moist mucous membranes, bilateral TMs clear, no pharyngeal erythema, no facial swelling noted. Dentures noted to the mouth. No visible abscess or drainage. No trismus or drooling. Left conjunctival is minimally injected, no visible drainage. No periorbital swelling or eyelid swelling Respiratory: No respiratory distress, lungs clear bilaterally Cardio: Regular rate and rhythm Gastrointestinal: Abdomen is soft, nondistended, obese and nontender to palpation; no CVA tenderness Extremities: Moves extremities equally Psych: Normal mood and affect Neuro: No focal neuro deficit Skin: Warm, dry, intact Constitutional Vital Signs, click to edit/add: Last Vital Signs Temp 97.9 F 06/17/24 14:25 Pulse 64 06/17/24 15:51 Resp 18 06/17/24 15:51 BP 109/56 06/17/24 15:51 Pulse Ox 100 06/17/24 15:51 O2 Del Method Room Air 06/17/24 14:25 Course Vital Signs Vital signs: Vital Signs Temperature 97.9 F 06/17/24 14:25 Pulse Rate 85 06/17/24 14:25 Respiratory Rate 18 06/17/24 14:25 Blood Pressure 153/85 H 06/17/24 14:25 Pulse Oximetry 99 06/17/24 14:25 Oxygen Delivery Method Room Air 06/17/24 14:25 Temperature 97.9 F 06/17/24 14:25 Pulse Rate 64 06/17/24 15:51 Respiratory Rate 18 06/17/24 15:51 Blood Pressure 109/56 06/17/24 15:51 Pulse Oximetry 100 06/17/24 15:51 Oxygen Delivery Method Room Air 06/17/24 14:25 Medical Decision Making MDM Narrative Medical decision making narrative: Patient given tobramycin eyedrops in the emergency department. Laboratory studies reviewed and noted, no evidence of sepsis. She does have a mild urinary tract infection. CT is unremarkable with possible cystitis of the bladder. Patient is hemodynamically stable. Discharged home with antibiotics, Zofran. Follow-up with PCP and return to the emergency department if symptoms change or worsen. SHARED APC VISIT, PHYSICIAN ATTESTATION: [id number] I performed a substantive part of the MDM during the patient?s E/M visit. I personally evaluated and examined the patient. I personally made or approved the documented management plan and acknowledge its risk of complications. Medical Records Medical records reviewed: Yes I reviewed the patient's medical records Lab Data Lab results reviewed: Yes I reviewed the patient's lab results Labs: Lab Results 06/17/24 06/17/24 Range/Units 14:20 14:53 WBC 8.7 (4.0-11.0) 10^3/uL RBC 4.86 (4.20-5.40) 10^6/uL Hgb 14.3 (12.0-16.0) g/dL Hct 42.5 (36.0-48.0) % MCV 87.4 (81.0-99.0) fL MCH 29.4 (26.7-34.0) pg MCHC 33.6 (29.9-35.2) g/dL RDW 12.6 (11.0-15.0) % Plt Count 244 (150-450) 10^3/uL MPV 9.9 (9.5-13.5) fL Neut % (Auto) 67.9 (43.0-75.0) % Lymph % (Auto) 23.1 (20.5-60.0) % [place] % (Auto) 6.2 (1.7-12.0) % Eos % (Auto) 1.8 (0.9-7.0) % Baso % (Auto) 0.5 (0.2-2.0) % Neut # (Auto) 5.9 (1.4-6.5) 10^3/uL Lymph # (Auto) 2.0 (1.2-3.8) 10^3/uL [place] # (Auto) 0.5 (0.3-0.8) 10^3/uL Eos # (Auto) 0.2 (0.0-0.7) 10^3/uL Baso # (Auto) 0.0 (0.0-0.1) 10^3/uL Abs Immat Gran (auto) 0.04 H (0.00-0.03) 10^3/uL Imm/Tot Granulo (auto) 0.5 (0.0-0.5) % VBG pH 7.378 (7.330-7.430) VBG pCO2 45.4 (40.0-52.0) mmHg Sodium 136 (136-145) mmol/L Potassium 3.9 (3.5-5.1) mmol/L Chloride 101 (98-107) mmol/L Carbon Dioxide 28.0 (21.0-32.0) mmol/L Anion Gap 10.9 BUN 14.0 (7.0-18.0) mg/dL Creatinine 0.86 (0.55-1.02) mg/dL Est GFR ( Amer) >60 (>=60) Est GFR (Non-Af Amer) >60 (>=60) BUN/Creatinine Ratio 16.3 Glucose 105 (74-106) mg/dL Lactate 1.1 (0.4-2.0) mmol/L Calcium 9.1 (8.5-10.1) mg/dL Total Bilirubin 0.3 (0.2-1.0) mg/dL AST 13 L (15-37) U/L ALT 28 (14-59) U/L Alkaline Phosphatase 70 (46-116) U/L Total Protein 7.1 (6.4-8.2) g/dL Albumin 3.5 (3.4-5.0) g/dL Globulin 3.6 g/dL Albumin/Globulin Ratio 1.0 Lipase 32.0 (16.0-77.0) U/L Urine Color Yellow (YELLOW) Urine Clarity Clear (CLEAR) Urine pH 7.0 (5.0-9.0) Ur Specific [place] 1.020 (1.005-1.025) Urine Protein Negative (NEG/TRACE) mg/dL Urine Glucose (UA) Negative (NEGATIVE) mg/dL Urine Ketones Negative (NEGATIVE) mg/dL Urine Occult Blood Trace-i (NEGATIVE) Urine Nitrite Negative (NEGATIVE) Urine Bilirubin Negative (NEGATIVE) Urine Urobilinogen 0.2 (0.2-1.0) EU/dL Ur Leukocyte Esterase Negative (NEGATIVE) Urine RBC 2-5 A (0-2) #/HPF Urine WBC 5-10 A (NONE SEEN) #/HPF Ur Squamous Epith Cells Moderate A (NONE/RARE) #/LPF Urine Bacteria Moderate A (NONE SEEN) #/HPF Urine Mucus None seen (NONE SEEN) Ur Culture Indicated? Yes Urine HCG, Qual Negative (NEGATIVE) Imaging Data CT scan - abdomen: Attestation: I have reviewed the pertinent imaging results. Radiologist's impression: ITS Impressions Abdomen/Pelvis CT 06/17/24 14:40 IMPRESSION: 1. Bladder wall thickening versus incomplete distention, correlate clinically for evidence of cystitis. 2. Otherwise, no acute abnormalities in the abdomen or pelvis. Electronically authenticated by: SHWETHA HOOD Date: 06/17/2024 16:03 Discharge Plan Discharge Chief Complaint: Urogenital-Female Clinical Impression: UTI (urinary tract infection), Conjunctivitis Patient Disposition: Home, Self-Care Time of Disposition Decision: 16:09 Condition: Good Prescriptions / Home Meds: New cefdinir 300 mg capsule 300 mg PO BID 7 Days Qty: 14 0RF ketorolac 10 mg tablet 10 mg PO TID PRN (Reason: pain) Qty: 10 0RF ondansetron 4 mg tablet,disintegrating 4 mg PO Q6H PRN (Reason: nausea and vomiting) Qty: 12 0RF No Action pregabalin 75 mg capsule 75 mg PO Q8H tizanidine 4 mg tablet 4 mg PO Q12H tramadol 50 mg tablet 50 mg PO Q8H levofloxacin 750 mg tablet 750 mg PO DAILY 4 Days Qty: 4 0RF Print Language: Micronesian Instructions: Urinary Tract Infection in Women (ED), Conjunctivitis (ED) Additional Instructions: Tobramycin drops: 2-3 drops in eye, 3 times a day for 5 days Referrals: Sohn Angel MERCHANT BANKER [Primary Care Provider] - 1 week
[2024-06-17] MEDS: TOBRAMYCIN 0.3% OP SOL 100 DROP/5 ML BOTTLE OP (15:00)
[2024-06-17] MEDS: ONDANSETRON PF 4 MG/2 ML VIAL IV (15:00)
[2024-06-17] MEDS: 0.9 % SODIUM CHLORIDE 1,000 ML 999 ML IV (15:00)
[2024-06-17 15:04] LABS: PCO2 VBG 45.4 mmHg (40.0-52.0); pH VBG 7.378 (7.330-7.430)
[2024-06-17 15:06] LABS: Basophils Percent Auto 0.5 % (0.2-2.0); Eosinophils Absolute Auto 0.2 10^3/uL (0.0-0.7); Eosinophils Percent Auto 1.8 % (0.9-7.0); Hematocrit 42.5 % (36.0-48.0); Hemoglobin 14.3 g/dL (12.0-16.0); Immature Granulocytes Abs Auto 0.04 10^3/uL (0.00-0.03); Immature Granulocytes Pct Auto 0.5 % (0.0-0.5); Lymphocytes Percent Auto 23.1 % (20.5-60.0); Mean Corpuscular HGB Conc 33.6 g/dL (29.9-35.2); Mean Corpuscular Hemoglobin 29.4 pg (26.7-34.0); Mean Corpuscular Volume 87.4 fL (81.0-99.0); Mean Platelet Volume 9.9 fL (9.5-13.5); Monocytes Absolute Auto 0.5 10^3/uL (0.3-0.8); Monocytes Percent Auto 6.2 % (1.7-12.0); Neutrophils Absolute Auto 5.9 10^3/uL (1.4-6.5); Neutrophils Percent Auto 67.9 % (43.0-75.0); Platelet Count 244 10^3/uL (150-450); Red Blood Count 4.86 10^6/uL (4.20-5.40); Red Cell Distribution Width 12.6 % (11.0-15.0); White Blood Count 8.7 10^3/uL (4.0-11.0)
[2024-06-17 15:08] LABS: Bilirubin Urine NEGATIVE (NEGATIVE); Blood Urine TRACE-I (NEGATIVE); Clarity Urine CLEAR (CLEAR); Color Urine YELLOW (YELLOW); Glucose Urine UA NEGATIVE (NEGATIVE); Ketones Urine NEGATIVE (NEGATIVE); Leukocyte Esterase Urine NEGATIVE (NEGATIVE); Nitrite Urine NEGATIVE (NEGATIVE); Protein Urine NEGATIVE (NEG/TRACE); Urine Microscopic Indicated YES; Urobilinogen Urine 0.2 EU/dL (0.2-1.0)
[2024-06-17 15:09] LABS: HCG Qualitative Urine* NEGATIVE (NEGATIVE); Internal Control Within Normal Limits
[2024-06-17 15:18] LABS: Bacteria Urine MODERATE #/HPF (NONE SEEN); Mucus Urine NONE SEEN (NONE SEEN)
[2024-06-17 15:19] LABS: Squamous Epithelial Cell Urine MODERATE #/LPF (NONE/RARE); Urine Culture Indicated YES
[2024-06-17 15:25] LABS: Alanine Aminotransferase 28 U/L (14-59); Albumin Level 3.5 g/dL (3.4-5.0); Alkaline Phosphatase 70 U/L (46-116); Anion Gap 10.9; Aspartate Amino Transferase 13 U/L (15-37); BUN Creatinine Ratio 16.3; Bilirubin Total 0.3 mg/dL (0.2-1.0); Calcium 9.1 mg/dL (8.5-10.1); Chloride 101 mmol/L (98-107); Estimated GFR (African America >60 (>=60); Estimated GFR (Non-African Ame >60 (>=60); Globulin 3.6 g/dL; Glucose 105 mg/dL (74-106); Potassium 3.9 mmol/L (3.5-5.1); Sodium 136 mmol/L (136-145); Total Protein 7.1 g/dL (6.4-8.2)
[2024-06-17 15:29] LABS: Lactate/Lactic Acid 1.1 mmol/L (0.4-2.0)
[2024-06-17 15:51] VITALS: BP 109/56; PULSE 64; O2SAT 100
[2024-06-17 16:18] VITALS: BP 99/66; PULSE 60; TEMP 36.8; O2SAT 100
== END 2024-06-17 16:28 | disposition home or self-care (01) ==
PROVIDERS: Physician Assistant; Emergency Provider Emergency Medicine; PCP Nurse Practitioner Primary Care
DX: N39.0 Urinary tract infection, site not specified (principal); H10.9 Unspecified conjunctivitis; N31.9 Neuromuscular dysfunction of bladder, unspecified; Q05.9 Spina bifida, unspecified; F17.200 Nicotine dependence, unspecified, uncomplicated
CPT/HCPCS: 36415; 74177; 80053; 81001; 82800; 83605; 83690; 84703; 85025; 87086; 96374; 99285; J2405; Q9967

== ENCOUNTER 2025-06-05 18:03 | Emergency (ER) | payer OTHER, SELFPAY ==
[2025-06-05 18:20] VITALS: BP 160/100; PULSE 79; TEMP 36.7; O2SAT 99; BMI 37.6
[2025-06-05 18:46] LABS: Glucose Urine UA NEGATIVE (NEGATIVE)
[2025-06-05 18:47] LABS: HCG Qualitative Urine* NEGATIVE (NEGATIVE)
[2025-06-05 18:53] LABS: Cast Seen? NONE SEEN #/LPF (NONE SEEN); Crystals Seen? None Seen #/HPF (None Seen); Urine Culture Indicated YES-FRMC
--- NOTE | 2025-06-05 18:58 | ED_ITS ---
HPI - Female Genitourinary General Chief complaint: Urogenital-Female Stated complaint: PAIN URINATING, FEVER Time Seen by Provider: 06/05/25 18:32 History of Present Illness HPI Narrative: 44-year-old female presents to the ED after being seen at urgent care for a urinary tract infection (UTI). She was prescribed Bactrim at that visit. The patient has a history of self-catheterization for neurogenic bladder for multiple years. She reports mild suprapubic tenderness but denies fever, nausea, vomiting, dysuria beyond baseline, or flank pain. She was told she may have had an elevated temperature at urgent care, but she has not felt febrile. She was sent to the ED for evaluation prior to workup. She reports prior UTIs with similar presentation. Vitals in the ED were stable except for blood pressure 160/100 mmHg. Temperature was 98.1?F. Related Data Home Medications ?Medication ?Instructions ?Recorded ?Confirmed pregabalin 100 mg capsule 100 mg PO Q8H 06/05/2506/05 sulfamethoxazole 800 1 tab PO Q12H 06/05/2506/05 mg-trimethoprim 160 mg tablet Previous Rx's ?Medication ?Instructions ?Recorded levofloxacin 750 mg tablet 750 mg PO DAILY 4 days #4 t abs 11/21/23 ondansetron 4 mg disintegrating 4 mg PO Q6H PRN nausea and 06/17/24 tablet vomiting #12 tabs Allergies Allergy/AdvReac Type Severity Reaction Status Date / Time amoxicillin Allergy Severe Hives Verified 06/05/25 18:20 latex Allergy Severe Anaphylaxis Verified 06/05/25 18:20 silver sulfadiazine (From AdvReac Intermediate Blister Verified 06/05/25 18:20 Silvadene) ciprofloxacin AdvReac Mild itching Verified 06/05/25 18:20 PFSH PFSH Social History Smoking status: Current every day smoker Little interest or pleasure in doing things: not at all Feeling down, depressed, or hopeless: not at all Exam Narrative Exam Narrative: * General: Alert, oriented ?3, no acute distress * Cardiac: Regular rate and rhythm * Respiratory: Lungs clear * Abdomen: Soft, non-tender, normal bowel sounds, mild suprapubic tenderness * CVA tenderness: None * Other: No acute findings Labs / Urine: * Urine positive for nitrites and leukocytes * No additional labs obtained per patient preference Constitutional Vital Signs, click to edit/add: Last Vital Signs Temp 98.1 F 06/05/25 18:20 Pulse 79 06/05/25 18:20 Resp 18 06/05/25 18:20 BP 160/100 H 06/05/25 18:20 Pulse Ox 99 06/05/25 18:20 O2 Del Method Room Air 06/05/25 18:20 Course Vital Signs Vital signs: Vital Signs Temperature 98.1 F 06/05/25 18:20 Pulse Rate 79 06/05/25 18:20 Respiratory Rate 18 06/05/25 18:20 Blood Pressure 160/100 H 06/05/25 18:20 Pulse Oximetry 99 06/05/25 18:20 Oxygen Delivery Method Room Air 06/05/25 18:20 Temperature 98.1 F 06/05/25 18:20 Pulse Rate 79 06/05/25 18:20 Respiratory Rate 18 06/05/25 18:20 Blood Pressure 160/100 H 06/05/25 18:20 Pulse Oximetry 99 06/05/25 18:20 Oxygen Delivery Method Room Air 06/05/25 18:20 MDM - Female Genitourinary MDM Narrative Medical decision making narrative: 44-year-old female with known history of self-catheterization presenting with mild suprapubic discomfort and confirmed UTI. She was already prescribed Bactrim earlier today at urgent care. Urine dipstick shows nitrites and leukocytes consistent with UTI. Patient declined further lab work or IV therapy after shared decision-making, understanding that additional evaluation could help assess severity or complications. Given her stable vitals, normal exam, and resolution of acute symptoms, it is reasonable to continue her current antibiotic regimen. She was counseled on return precautions and agreed to discharge home. Assessment: * Urinary tract infection, already on antibiotics * History of chronic self-catheterization Plan / Disposition: * Continue Bactrim as prescribed by urgent care * Maintain hydration * Return to ED if any of the following occur: * Fever or chills * Worsening suprapubic or flank pain * Nausea, vomiting, or inability to urinate * Hematuria or other new urinary symptoms * Follow up with primary care provider or urologist as appropriate * Patient discharged home in stable condition Medical Records Attestation: I reviewed the patient's medical records. Lab Data Attestation: I reviewed the patient's lab results. Labs: Lab Results 06/05/25 Range/Units 18:25 Urine Color Lt. yellow (YELLOW) Urine Clarity Clear (CLEAR) Urine pH 7.5 (5.0-9.0) Ur Specific [place] 1.020 (1.005-1.025) Urine Protein Negative (NEG/TRACE) mg/dL Urine Glucose (UA) Negative (NEGATIVE) mg/dL Urine Ketones Negative (NEGATIVE) mg/dL Urine Occult Blood Trace-i (NEGATIVE) Urine Nitrite Positive A (NEGATIVE) Urine Bilirubin Negative (NEGATIVE) Urine Urobilinogen 1.0 (0.2-1.0) EU/dL Ur Leukocyte Esterase Small A (NEGATIVE) Urine RBC None seen (0-2) #/HPF Urine WBC 5-10 A (NONE SEEN) #/HPF Ur Squamous Epith Cells Rare (NONE/RARE) #/LPF Urine Crystals None seen (None Seen) #/HPF Urine Bacteria Moderate A (NONE SEEN) #/HPF Urine Casts None seen (NONE SEEN) #/LPF Urine Mucus None seen (NONE SEEN) Ur [place]icated[place] [place] HCG, Qual Negative (NEGATIVE) Discharge Plan Discharge Chief Complaint: Urogenital-Female Clinical Impression: UTI (urinary tract infection) Patient Disposition: Home, Self-Care Time of Disposition Decision: 18:59 Condition: Good Prescriptions / Home Meds: No Action levofloxacin 750 mg tablet 750 mg PO DAILY 4 Days Qty: 4 0RF pregabalin 100 mg capsule 100 mg PO Q8H sulfamethoxazole-trimethoprim 800-160 mg tablet 1 tab PO Q12H ondansetron 4 mg tablet,disintegrating 4 mg PO Q6H PRN (Reason: nausea and vomiting) Qty: 12 0RF Print Language: Albanian Instructions: Urinary Tract Infection in Women (DC) Additional Instructions: After Visit Summary (AVS) Reason for Visit: * Urinary tract infection (UTI) What We Found: * Symptoms and/or urine testing suggest a UTI * No other concerning symptoms at this time Treatment: * Antibiotics prescribed per urgent care ? take exactly as directed and finish the full course * Drink plenty of water to help flush your bladder * You may use [id number] pain relievers such as acetaminophen or ibuprofen for discomfort Patient Decision: * You declined further testing or workup at this time. Vital signs do not show fever at this time. * This means we will treat your current UTI symptoms but will not investigate additional causes unless you change your mind or symptoms worsen Return to the ER or Call Your Doctor If You Have: * Fever, chills, or worsening pain in your back or lower abdomen * Nausea or vomiting * Blood in your urine that worsens * Burning or pain that does not improve within 2?3 days of antibiotics * Any new or concerning symptoms Follow-Up: * Follow up with your primary care provider as recommended or sooner if symptoms do not improve Referrals: Physician,Non-Staff, [Primary Care Provider] - 1 week Discharge Date/Time: 06/05/25 19:11
--- NOTE | 2025-06-05 19:11 | PC.NURSE ---
i gave this patient verbal and written discharge orders and this patient vices yes to understanding these. at time of discharge this patient voices no concerns, needs and shows no signs of distress
--- OUTSIDE RECORDS SUMMARY | 2025-06-05 19:12 | XMS_ITS | CCD ---
Author Organization [facility] Care Team Providers Care Lodging Facilities Attendant Name Role Phone Astrid Myers Unavailable MD Liya Peña Attending Provider HouseDO Hess Primary Care Provider [phone] MD Simone Warren Attending Provider MD Liya Peña Attending Provider House, DO Hess Primary Care Provider Edith, Dr. Juanita Gifford Primary Care Tom Lopes, Dr. Dominick Hawkins Referring Unayisel Lopes, Dr. Dominick Hawkins Attending Unavai lable Evangelista, Dr. Dominick Hawkins Admitting Unavai lable GRECHNY ., ELIUD PARNELL Consulting Unavailabl e DIAB .RO Attending Unavailable DIAB ., RO Admitting Unavailable EDITH, DR HESS Primary Care Unavailable HAILY HAIDER Consulting Unavailable MARKER ., DR SALCEDO Admitting Unavailable HOUSE, DR HESS Primary Care Unavailable MARKER ., DR SALCEDO Attending Unavailable MARKER ., DR SALCEDO Consulting Unavailable DESIRAE KATZ Consulting Unavailable WAYNE ROBLES Consulting Unavailable EDITH, DR HESS Primary Care Unavailable DOMINICK LOPES MD Attending Unavailable JUANITA SHARMA SR Primary Care Unavailable Stanley, [facility] Shon Grey Primary Care Provider [phone] DO Eric Curran Emergency Provider Shon Angel Primary Care Unavailable Eric Curran Admitting Unavailable Eric Curran Attending Unavailable CinthiaPepe navarro Admitting Unavailable Pepe Vicente Attending Unavailable House Sr., Juanita HERNANDEZ Unavailable Kewanna Sr., Juanita Balta Primary Care Prov ider Kewanna Sr., DO Juanita Keon Unavailable Pepe Forrester MD, [facility] Prov ider Pepe Forrester MD, [facility] Prov ider Kewanna Juanita HERNANDEZ Primary Care Provider PEPE FORRESTER, AIDAN Primary Care Unav ailable NORMA LYMAN Referring Unavailable House Juanita HERNANDEZ Primary Care Provider HENRIQUE RODRÍGUEZ Attending Unavailable JUANITA SHARMA Primary Care Unavailable Kewanna Sr., Juanita HERNANDEZ Unavailable DOMINICK LOPES Admitting Unavailable DOMINICK LOPES Attending Unavailable JUANITA SHARMA Primary Care Unavailable DOMINICK LOPES Admitting Unavailable DOMINICK LOPES Attending Unavailable MCGEEJUANITA Primary Care Unavailable KAYLENE DALEY Referring Unavailable BOO LUIS, AIDAN Primary Care Unav ailable BABIUCH, ELDA Referring Unavailable BOO LUIS, AIDAN Primary Care Unav ailable BOO LUIS, AIDAN Referring Unav ailable BOO LUIS, [facility] Primary Care Unav ailable Das CAFETERIA HELPER.HIGH PRESSURE OPERATOR, Kaylene Unavailable Clay CAFETERIA HELPER.Tracie WHITEHEAD L Unavailable [phone] Clay CAFETERIA HELPER.VENTURA, Tracie L Primary Care Provi dani Pepe Forrester MD, [facility] ider Unavailable Das CAFETERIA HELPER.Kaylene WHITEHEAD Unavailable Unavail able Clay CAFETERIA HELPER.Tracie WHITEHEAD L Unavailable [phone] PEPE FORRESTER, AIDAN Primary Care Unav ailable BOO LUIS, AIDAN Attending Unav ailable BOO LUIS, AIDAN Primary Care Unav ailable BABIUCH, ELDA Attending Unavailable BOO LUIS, AIDAN Primary Care Unav ailable VERONIKA, REGINA Referring Unavailable VERONIKA, REGINA Attending Unavailable BOO LUSI, [facility] Primary [facility] Unav ailable REGINA AGRAWAL Referring Unavailable HAILY MAYER Attending Unavailable BOO LUIS, [facility] Unav ailable BABIRAINA, ELDA Attending Unavailable BOO LUIS, [facility] Primary Care Unav ailable BOO LUIS, AIDAN Attending Unav ailable TRACIE WILLIAMSON Primary Care Unavailable ALEXANDER GALLEGOS Attending Unavailable BOO LUIS, [facility] Primary [facility] Unav ailable BRI VO Referring Unavailable BOO LUIS, [facility] Primary [facility] Unav ailable KAYLENE DALEY Referring Unavailable LUCIANA BUCKLEY Attending Unavailable BOO LUIS, [facility] Unav ailable BOO LUIS, AIDAN Referring Unav ailable BOO LUIS, [facility] Primary Care Unav ailable BOO LUIS, AIDAN Attending Unav ailable OBO LUIS, [facility] Unav ailable BABIRAINA, ELDA Attending Unavailable BABIUCHELDA Admitting Unavailable BOO LUIS, [facility] Primary [facility] Unav ailable BOO LUIS, AIDAN Attending Unav ailable BOO LUIS, [facility] Primary Care Unav ailable BOO LUIS, AIDAN Referring Unav ailable BRAYAN DAVE Attending Unavailable BOO LUIS, [facility] Primary [facility] Unav ailable BRAYAN DAVE Referring Unavailable MARIA LUISA HUBER Attending Unavailable BOO LUIS, [facility] Primary [facility] Unav ailable BENDJAILENE GOETZ Referring Unavaila ble BRI VO Attending Unavailable BOO LUIS, [facility] Primary [facility] Unav ailable BRAYAN DAVE Referring Unavailable BOO LUIS, [facility] Primary [facility] Unav ailable BRI VO Referring Unavailable BOO LUIS, [facility] Primary [facility] Unav ailable Allergies Allergy Classification Reported Allergen(s) Allergy Type Date of Onset Reaction(s) Facility bacitracin / neomycin / polymyxin b (3 sources) bacitracin / neomycin / polymyxin b Drug Allergy 10-07-19 12 Rash [facility] Latex (3 sources) Latex Substance Allergy 11-15-19 08 Anaphylaxis [facility] Opioid Agonists (3 sources) Morphine Drug Allergy 05-26-20 17 [facility] Quinolones (antibiotic) (3 sources) Ciprofloxacin Drug Allergy 05-18-20 23 Hives, Itching [facility] Sulfonamides (antibiotic) (2 sources) silver sulfADIAZINE Drug Allergy 01-18-20 Other: See Comments [facility] Zinc Oxide (3 sources) Zinc Oxide Drug Allergy 10-07-19 12 [facility] (1 source) Latex Tube/Connector Drug allergy anaphylaxis [facility] Other (20 sources) Latex; Translations: [latex] Allergy to substance 11-15-19 08 Anaphylaxis [facility] (1 source) Amoxicillin / Clavulanate Drug Allergy 07-13-20 17 [facility] (1 source) Gestronol Drug Allergy 06-16-20 17 [facility] (4 sources) Morphine; Translations: [MORPHINE] Drug Allergy 05-26-20 17 [facility] (20 sources) Ciprofloxacin; Translations: [ciprofloxacin] Drug Allergy 05-18-20 23 Itching, Hives [facility] (20 sources) bacitracin / neomycin / polymyxin b; Translations: [NEOMYCIN-BACITRA OSWALDO-POLYMYXIN] Drug Allergy 10-07-19 12 [facility] (20 sources) Morphine Drug Allergy 05-26-20 17 [facility] Work Phone: (20 sources) Zinc Oxide; Translations: [ZINC OXIDE] Drug Allergy 10-07-19 12 [facility] (20 sources) silver sulfADIAZINE; Translations: [SILVER SULFADIAZINE] Drug Allergy 01-18-20 Other, Other: See Comments [facility] Work Phone: (20 sources) Amoxicillin; Translations: [AMOXICILLIN] Drug Allergy 06-17-20 24 [facility] Medications Current Medications Medication Drug Class(es) Dates [...] Starting on Thu01/18/24 at 1200, Recovery (only) cefdinir 300 mg oral capsule (11 sources) Cephalosporin Antibacterial Start: 2023 take 1 capsule by mouth every twelve hours cefdinir (OMNICEF) 300 mg capsule Take 1 capsule by mouth every 12 hours. 06/17/2024 Active cephalexin 500 mg oral capsule (1 source) Cephalosporin Antibacterial Start: 2020 take 1 capsule by mouth every eight hours Cephalexin 500 MG 1 capsule Orally three times a day for 10 day(s) Aug, Active cholecalciferol, vitamin D3, (VITAMIN D3 ORAL) (10 sources) cholecalciferol, vitamin D3, (VITAMIN D3 ORAL) Take by mouth. Active ciprofloxacin 500 mg oral tablet (1 [...] needed for muscle spasm. 60 tablet 1 07/08/2024 Active Comment on above: Take 1 tablet by luke three times daily as needed for Muscle [...] at 1133, For 1 dose, Recovery (only) 0.5 ml dulaglutide 3 mg/ml auto-injector (20 sources) GLP-1 Receptor Agonist Start: 2023 End: 2024 inject 1.5 mg by subcutaneous injection every week dulaglutide (TRULICITY) 1.5 mg/0.5 mL pen injector Inject 1.5 mg subcutaneously one time a week. 2 mL 2 10/31/2024 Active Start: 09-08-2024 End: 10-31-2024 inject 0.75 mg by subcutaneous injection every week dulaglutide (TRULICITY) 0.75 mg/0.5 mL pen injector Inject 0.75 mg subcutaneously one time a week. 2 mL 09/08/2024 10/31/2024 Discontinued (Course of therapy completed) erythromycin 0.005 mg/mg ophthalmic ointment (2 sources) Macrolide, Macrolide Antimicrobial Start: 04-26-2024 End: 05-03-2024 erythromycin (ROMYCIN) 5 mg/gram (0.5 %) ophthalmic [...] mg/ml injection (1 source) Arteriolar Vasodilator Start: 01-18-2024 5 mg, intravenous, Administer over 2 Minutes, Every 30 min PRN, high blood pressure, systolic blood pressure greater than 180 mmHg and heart rate less than 60 BPM, Starting on Thu01/18/24 at 1133, For 2 doses, Recovery (only) 0.5 ml HYDROmorphone hydrochloride 1 mg/ml prefilled syringe (1 source) Opioid Agonist Start: 01-18-2024 0.5 mg, intravenous, Every 5 min PRN, pain severe (7-10), first line, Starting on Thu01/18/24 at 1133, Recovery (only), Max total of 4 mg regardless of dose. ibuprofen 200 mg oral tablet (20 sources) Nonsteroidal Anti-inflammatory Drug Start: 03-09-2023 take 3 tablets by mouth every twenty-four hours as needed ibuprofen 200 mg tablet Take 3 tablets (600 mg) by mouth once daily as needed. 03/09/2023 Active IBUPROFEN (MOTRI N ORAL) Take by mouth. Active IBUPROFEN (MOTRI N ORAL) Take by mouth. 0 Active Comment on above: Take by mouth. iv contrast (will be provided with radiology test) (1 source) Start: End: inject 1 dose intravenously once, then inject [...] link. 1 Each 0 04/05/2024 04/05/2024 Active labetalol hydrochloride 5 mg/ml injectable solution (1 source) beta-Adrenergic Lucila Start: 5 mg, intravenous, Administer over 1 Minutes, Once as needed, systolic blood pressure greater than 180 mmHg, dystolic blood pressure greater than 100 mmHg and heart rate greater than 60 BPM, Starting on Thu01/18/24 at 1133, For 1 dose, Recovery (only) metoclopramide 10 mg oral tablet (9 sources) Dopamine-2 Receptor Antagonist Start: End: take 1 tablet by mouth three times daily metoclopramide HCl (REGLAN) 10 mg tablet Indications: Nausea Take 1 tablet by mouth three times a day. 90 tablet 0 02/22/2024 03/23/2024 Active omeprazole 20 mg delayed release oral capsule (20 sources) Proton Pump Inhibitor Start: End: take 1 capsule by mouth once daily omeprazole (PRILOSEC) 20 mg capsule Indications: RUQ pain Take 1 capsule by mouth once daily. 90 capsule 3 07/04/2024 06/29/2025 Active Start: 02-22-2024 End: 04-08-2024 take 1 capsule by mouth once daily omeprazole (PRILOSEC) 20 mg capsule Indications: Heartburn Take 1 capsule by mouth once daily. 30 capsule 0 02/22/2024 04/08/2024 Discontinued (Discontinued by Patient) ondansetron 4 mg disintegrating oral tablet (20 sources) Serotonin-3 Receptor Antagonist Start: 06-17-2024 take 1 tablet by mouth every eight hours as needed ondansetron orally disintegrating (ZOFRAN ODT) 4 mg disintegrating tablet Take 4 mg by mouth every 8 hours as needed for nausea/vomiting. 06/17/2024 Active Start: 03-18-2024 End: 03-18-2024 ondansetron (PF) 8 mg inject ion (ZOFRAN) Start: 03-14-2024 End: 03-18-2024 ondansetron (PF) 8 mg inject ion (ZOFRAN) Start: 01-18-2024 4 mg, intraven ous, Once as needed, nausea/vomiting, first line, Starting on Thu01/18/24 at 1133, For 1 dose, Recovery (only), When administering via IV Push, administer over 3-5 minutes. oxyCODONE hydrochloride 5 mg oral tablet (1 [...] 75 mg oral capsule (20 sources) Start: 09-12-2024 End: 03-24-2025 take 1 capsule by mouth three times daily pregabalin (LYRICA) 75 mg capsule Indications: Chronic bilateral low back pain, unspecified whether sciatica present Take 1 capsule by mouth three times a day for 30 days. 90 capsule 02/22/2025 Active Start: 05-02-2024 End: 08-29-2024 take 1 capsule by mouth three times daily pregabalin (LYRICA) 75 mg capsule Indications: Chronic bilateral low back pain, unspecified whether sciatica present Take 1 capsule by mouth three times a day for 56 days. 84 capsule 1 07/04/2024 Active Start: 03-29-2024 End: 04-26-2024 take 1 [...] Active Start: 06-10-2022 take 1 capsule by mo ut three times daily pregabalin (Lyrica) 50 mg capsule Take 1 capsule (50 mg) by mouth 3 times a day. 06/10/2022 Active Lyrica Active Comment on above: Take 75 mg by mouth three times a day. promethazine (Phenergan) 6.25 mg in sodium chloride 0.9% 50 mL IV (1 source) Start: 01-18-2024 6.25 mg, intravenous, Administer over 15 Minutes, Once as needed, Nausea/vomiting, second line, Starting on Thu01/18/24 at 1133, For 1 dose, Recovery (only) simethicone 125 mg chewable tablet (11 sources) Start: 06-23-2024 take 1 tablet by mouth three times daily as needed Simethicone 125 mg chewable tablet Indications: RUQ pain Take 1 tablet by mouth three times a day as needed (bloating). 60 tablet 1 06/23/2024 Active traMADol hydrochloride 50 mg oral tablet (20 sources) Opioid Agonist Start: 02-22-2025 End: 03-24-2025 take 1 tablet by mouth three times daily traMADol (ULTRAM) 50 mg tablet Indications: Chronic bilateral low back pain, unspecified whether sciatica present Take 1 tablet by mouth three times a day for 30 days. 90 tablet 02/22/2025 03/24/2025 Active Start: 06-10-2022 End: 01-17-2025 take 1 tablet by mouth three times daily traMADol (ULTRAM) 50 mg tablet Indications: Chronic bilateral low back pain, unspecified whether sciatica present Take 1 tablet by mouth three times a day for 56 days. 84 tablet 1 11/22/2024 01/17/2025 Active traMADol HCl Act patricia Comment on [...] Comment on above: Take 1 capsule by [facility] three times daily. ketamine 65 mg in [...] mg in NaCl 0.9% 64.5 mL (KETALAR) ketotifen 0.25 mg/ml ophthalmic solution (2 sources) Histamine-1 Receptor Inhibitor Start: 05-25-2024 End: 06-23-2024 ketotifen fumarate (ALAWAY) 0.025 % (0.035 %) ophthalmic solution Use 1 Drop in both eyes two times a day. 5 mL 2 05/25/2024 06/23/2024 Discontinued (Course of therapy completed) 5 ml midazolam 1 mg/ml injection (4 sources) Benzodiazepine Start: 03-15-2024 End: 03-18-2024 midazolam (PF) 2 mg injection (VERSED) mineral oil 0.425 mg/mg / petrolatum 0.568 mg/mg ophthalmic ointment (4 sources) Start: 05-04-2024 End: 06-23-2024 White Petrolatum-Mineral Oil (LACRI-LUBE) 56.8-42.5 % oint Use 1 application in both eyes three times a day. 3.5 g 1 05/04/2024 06/23/2024 Discontinued (Discontinued by Patient) Multivitamins with Minerals cap (4 sources) End: 01-06-2024 Multivitamins with Minerals cap Take by mouth. 0 01/06/2024 Discontinued Multivitamins wi th Minerals cap Take by mouth. 0 Active Comment on above: Take by mouth. nitrofurantoin, macrocrystals 25 mg oral capsule (4 sources) Nitrofuran Antibacterial End: 01-06-2024 nitrofurantoin (MACRODANTIN) 25 mg capsule Take 10 mg by mouth as needed. 0 01/06/2024 Discontinued Comment on above: Take 10 mg by mouth as needed. nitrofurantoin, macrocrystals 25 mg / nitrofurantoin, monohydrate 75 mg oral capsule (20 sources) Nitrofuran Antibacterial Start: 03-23-2024 End: 06-23-2024 nitrofurantoin monohydrate and macrocrystal (MACROBID) 100 mg capsule Take 1 capsule by mouth as needed. 03/23/2024 06/23/2024 Discontinued (Course of therapy completed) Start: 01-01-2024 End: 01-30-2024 take 1 capsule by mouth twice daily nitrofurantoin monohydrate and macrocrystal (MACROBID) 100 mg capsule Indications: Acute UTI Take 1 capsule by mouth two times a day for 5 days. 10 capsule 0 01/25/2024 01/30/2024 Active Szpgerte-Qm-Yjw-Fe-FA tab (4 sources) Start: 09-16-2018 End: 01-06-2024 take 1 tablet by mouth once daily Wqblufzh-Xr-Gby-Fe-FA tab Take 1 tablet by mouth once daily. 30 tablet 11 09/16/2018 01/06/2024 Discontinued Start: 09-16-2018 take 1 tablet by luke th once daily Xnmidlcz-Wq-Naq-Fe-FA tab Take 1 tablet by mouth once [...] 03/09/2023 02/22/2024 Discontinued (Course of therapy completed) topiramate 25 mg oral tablet (20 sources) Start: 4 End: 4 take 1-2 tablets by mouth once daily at bedtime topiramate (TOPAMAX) 25 mg tablet Indications: Chronic daily headache Take 1-2 tablets by mouth daily at bedtime. 60 tablet 1 02/22/2024 06/23/2024 Discontinued (Course of therapy completed) Problems Active Problems Problem Classification Problem Date Documented Da te Episodic/Chronic Adjustment disorders (2 sources) Adjustment disorder with mixed anxiety and depressed mood; Translations: [Adjustment disorder with mixed anxiety and depressed mood] Onset: 04-14-2024 04-14-2024 Chronic Administrative/social admission (8 sources) Patient encounter status; Translations: [Persons encountering health services in other specified circumstances] 01-06-2024 Episodic Anxiety disorders (5 sources) Anxiety disorder, unspecified; Translations: [Mixed anxiety and depressive disorder] Onset: 10-06-2022 03-03-2024 Chronic Blindness and vision defects (3 sources) Strabismic amblyopia of left eye; Translations: [Strabismic amblyopia, left eye] 12-01-2023 Episodic Diabetes mellitus without complication (2 sources) Hyperglycemia; Translations: [Hyperglycemia, unspecified] Onset: 03-17-2025 03-17-2025 Episodic Disorders of lipid metabolism (3 sources) Pure hypercholesterolemia, unspecified; Translations: [Mixed hyperlipidemia] Onset: 10-06-2022 03-17-2025 Chronic E Codes: Struck by; against (1 source) Striking against or struck by other objects, initial encounter; Translations: [STRIKING AGNST/STRUCK OTH OBJ INIT] Onset: 02-17-2023 Episodic Genitourinary symptoms and ill-defined conditions (20 sources) Urge incontinence; Translations: [Urge incontinence of urine] Onset: 10-06-2022 Chronic Genitourinary symptoms and ill-defined conditions (6 sources) Dysuria; Translations: [Dysuria] Onset: 09-05-2021 Resolved: 09-05-2021 Episodic Headache; including migraine (1 source) Chronic daily headache; Translations: [Chronic daily headache] 02-22-2024 Episodic Immunizations and screening for infectious disease (2 sources) Encounter for immunization; Translations: [Patient encounter status] Onset: 02-17-2023 06-23-2024 Episodic Malaise and fatigue (2 sources) Fatigue; Translations: [Chronic fatigue, unspecified] Onset: 03-17-2025 03-17-2025 Chronic Meningitis (except that caused by tuberculosis or [...] Translations: [Spina bifida] Onset: 05-17-2012 05-17-2012 Chronic Nutritional deficiencies (20 sources) Vitamin D deficiency; [...] bladder, unspecified] Onset: 01-25-2024 01-25-2024 Chronic Other gastrointestinal disorders (1 source) Heartburn; Translations: [Heartburn] 02-22-2024 Episodic Other liver diseases (1 source) Steatosis of liver; Translations: [Fatty (change of) liver, not elsewhere classified] 09-08-2024 Chronic Other lower respiratory disease (1 source) Respiratory obstruction; Translations: [Other specified respiratory disorders] 04-05-2024 Episodic Other nervous system disorders (7 sources) Chronic pain syndrome; Translations: [Chronic pain syndrome] 12-07-2023 Chronic Other nervous system disorders (3 sources) Chronic pain; Translations: [Other chronic pain] 01-08-2024 Chronic Other nervous system disorders (4 sources) Other chronic pain; Translations: [Chronic bilateral low back pain, unspecified whether sciatica present] Onset: 01-19-2024 Chronic Other nervous system disorders (2 sources) Chronic pain syndrome; Translations: [Chronic pain syndrome] Onset: 01-19-2024 Chronic Other nervous system disorders (1 source) Chronic low back pain; Translations: [Other chronic pain] 12-20-2024 Chronic Other nervous system disorders (1 source) [...] nutritional; endocrine; and metabolic disorders (3 sources) Morbid (severe) obesity due to excess calories; Translations: [Morbid obesity with BMI of 40.0-44.9, adult ([facility])] Onset: 01-25-2024 Chronic Other nutritional; endocrine; and metabolic disorders (2 sources) Body mass index (BMI) 40.0-44.9, adult; Translations: [Morbid obesity with BMI of 40.0-44.9, adult ([facility])] Onset: 01-25-2024 Chronic Other screening for suspected conditions (not mental disorders or infectious disease) (3 sources) Radiology result abnormal; Translations: [Abnormal findings on diagnostic imaging of other parts of musculoskeletal system] 01-19-2024 Episodic Otitis media and related conditions (1 source) Acute transudative otitis media; Translations: [Other acute nonsuppurative otitis media, unspecified ear] 05-18-2023 Episodic Residual codes; unclassified (8 sources) H/O Spinal surgery; Translations: [Other specified postprocedural states] 12-07-2023 Episodic Residual codes; unclassified (1 source) Nicotine-filled electronic cigarette user; Translations: [Tobacco use] 08-01-2024 Episodic Residual codes; unclassified (1 source) Chronic pain 03-17-2025 Episodic Substance-related disorders (20 sources) Nicotine dependence, unspecified, uncomplicated; Translations: [Smoker] Onset: 05-17-2012 05-17-2012 Chronic Thyroid disorders (20 sources) Non-toxic uninodular goiter; Translations: [Nontoxic single thyroid nodule] Onset: 02-08-2024 02-08-2024 Chronic Unclassified (1 source) UNVACCINATED FOR COVID-19; Translations: [UNVACCINATED FOR COVID-19] Onset: 08-28-2022 Unclassified (1 source) Chronic bilateral low back pain, unspecified whether sciatica present; Translations: [Chronic bilateral low back pain, unspecified whether sciatica present] Onset: 01-19-2024 Urinary tract infections (4 sources) Acute cystitis with hematuria; Translations: [Other cystitis without hematuria] Onset: 09-05-2021 Resolved: 09-05-2021 Episodic Viral infection (1 source) COVID-19; Translations: [COVID-19] Onset: 08-28-2022 Past or Other Problems Problem Classification Problem Date Documented Date Episodic/Chronic Abdominal pain (5 sources) Right upper quadrant pain; Translations: [Right upper quadrant pain] Onset: 06-23-2024 06-23-2024 Episodic Allergic reactions (20 sources) Latex allergy status; Translations: [Allergy to latex] Onset: 05-17-2012 05-17-2012 Episodic Complications of surgical procedures or medical care (20 sources) Surgical wound finding; Translations: [Other complications of procedures, not elsewhere classified, initial encounter] Onset: 06-17-2017 Resolved: 01-25-2024 06-17-2017 Episodic Conditions associated with dizziness or vertigo (1 source) Dizziness and giddiness; Translations: [Dizziness and giddiness] Onset: 05-18-2023 Episodic Nervous system congenital anomalies (9 sources) H/O: musculoskeletal disease; Translations: [Personal history of 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] Onset: 01-19-2024 12-07-2023 Episodic Other eye disorders (20 sources) 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; Translations: [Monocular exotropia with other noncomitancies, left eye] Onset: 01-14-2024 01-14-2024 Episodic Other eye disorders (20 sources) Hypotropia of left eye; Translations: [Vertical strabismus, left eye] Onset: 01-14-2024 01-14-2024 Episodic Other eye disorders (1 source) Monocular exotropia with other noncomitancies, left eye; Translations: [Monocular exotropia with other noncomitancies, left eye] Onset: 04-26-2024 Episodic Other injuries and conditions due to [...] specified health status] Onset: 05-26-2017 05-26-2017 Episodic Residual codes; unclassified (3 sources) Other specified postprocedural states; Translations: [H/O laminectomy] Onset: 01-19-2024 Episodic Residual codes; unclassified (11 sources) Difficult venous access; Translations: [Other specified health status] Onset: 12-14-2024 12-14-2024 Episodic Spondylosis; intervertebral disc disorders; other back problems (20 sources) Chronic low back pain; Translations: [Chronic bilateral low back pain, unspecified whether sciatica present] Onset: 10-03-2004 12-07-2023 Episodic Results Test Name Value Interpretation Reference Range Facility [facility] 03-17-2025 OV Office Visit ([facility] ) KARLENE TOM ([id number]) 1980 F Date Time Provider Department 03/17/25 3:45 PM ALEXANDER GALLEGOS [facility] During your visit today, we recorded the following information about you: Temperature Pulse Blood pressure Weight 99.4 degrees 78/minute 108/73 128.3 kg Height Last Period 1.702 m 02/28/25 Alexander Gallegos MD 03/22/2025 2:13 PM Signed This note was created using Naehas. Subjective Karlene Tom is a 44 year old female. The history is provided by the patient. Back Pain This is a recurrent problem. The current episode started more than 1 week ago. The problem occurs daily. The problem has not changed since onset.The pain is associated with no known injury. The pain is present in the lumbar spine. The quality of the pain is described as shooting. The pain radiates to the right thigh, right foot and right knee. The symptoms are aggravated by bending and certain positions. The pain is Worse during the day. Stiffness is present All day. Patient is also here to establish care with us, she is active hyperlipidemia, hyperglycemia and vitamin D deficiency and Thyroid nodules. Patient does feel tired sometimes during the day, sometimes unable to her activities due to fatigue. She denies any chest pain or shortness of breath. Review of Systems Constitutional: Positive for fatigue. Musculoskeletal: Positive for back pain. All other systems reviewed and are negative. Past Medical history: PAST MEDICAL HISTORY Diagnosis Date Abnormal Pap smear of cervix LEEP Difficult intravenous access 12/14/2024 History of urinary self-catheterization 05/26/2017 ISC Morbid obesity (HCC) depression Spina bifida (HCC) Past Surgical History: PAST SURGICAL HISTORY Procedure Laterality Date COLPOSCOPY CERVIX UPPER/ADJACENT VAGINA 05/22/2004 Colposcopy CONIZATION CERVIX W/WO DANDC RPR ELTRD EXC 07/22/2004 LEEP-Cervix PAST SURGICAL HISTORY OF 04/21/2006 r leg surgery PAST SURGICAL HISTORY OF 09/21/2006 pins removed - r leg PAST SURGICAL HISTORY OF 2002 or 2003 stomach revision PAST SURGICAL HISTORY OF myelomeningocele and repair of tethered cord (1979,1994, 2016) PAST SURGICAL HISTORY OF 1986 bladder surgery PAST SURGICAL HISTORY OF Eye surgery Family History: FAMILY HISTORY Problem Relation Age of Onset Cancer Mother skin other (macular degenertion) Mother Mental illness Mother Cancer Father bladder Hypertension Father other (pre diabetes) Father other (pe) Father Ischemic Heart Disease Father Breast Cancer Paternal Grandmother Anesthesia No Family History Social History: Social History Tobacco Use Smoking status: Former Average packs/day: 1 pack/day for 20.8 years (20.8 ttl pk-yrs) Types: Cigarettes Start date: 2003 Smokeless tobacco: Never Vaping Use Vaping status: Never Used Substance Use Topics Alcohol use: Yes Comment: once every 6 months Drug use: Yes Types: Marijuana Comment: occasional gummies- once every few months. Current Medications: pregabalin (LYRICA) 75 mg capsule, Take 1 capsule by mouth three times a day for 30 days., Disp: 90 capsule, Rfl: 0 traMADol (ULTRAM) 50 mg tablet, Take 1 tablet by mouth three times a day for 30 days., Disp: 90 tablet, Rfl: 0 cholecalciferol, vitamin D3, (VITAMIN D3 ORAL), Take by mouth., Disp: , Rfl: cyclobenzaprine (FLEXERIL) 10 mg tablet, Take 10 mg by mouth three times a day as needed., Disp: , Rfl: ondansetron orally disintegrating (ZOFRAN ODT) 4 mg disintegrating tablet, Take 4 mg by mouth every 8 hours as needed for nausea/vomiting., Disp: , Rfl: IBUPROFEN (MOTRIN ORAL), Take by mouth., Disp: , Rfl: dulaglutide (TRULICITY) 1.5 mg/0.5 mL pen injector, Inject 1.5 mg subcutaneously one time a week. (Patient not taking: Reported on 12/14/2024), Disp: 2 mL, Rfl: 2 No facility-administered encounter medications on file as of 03/17/2025. Allergies: ALLERGIES Allergen Reactions Amoxicillin Hives Latex Anaphylaxis Ciprofloxacin Hives, Itching Morphine GI Upset Neosporin [Neomycin* Rash Silver Sulfadiazine Other: See Comments Zinc Oxide Rash Vitals: BP 108/73 Pulse 78 Temp (Src) 99.4 (Temporal) Ht 5' 7 (1.70m) Wt 282 lb 13.6 oz (128.3kg) SpO2 99% LMP 02/28/2025 BMI 44.29 kg/(m2). Objective BP 108/73 Pulse 78 Temp 37.4 ?C (99.4 ?F) (Temporal) Ht 170.2 cm (5' 7 ) Wt 128.3 kg (282 lb 13.6 oz) LMP 02/28/2025 (Exact Date) SpO2 99% BMI 44.30 kg/m? Physical Exam Constitutional: General: She is not in acute distress. HENT: Head: Normocephalic and atraumatic. Eyes: Conjunctiva/sclera: Conjunctivae normal. Pupils: Pupils are equal, round, and reactive to light. Cardiovascular: Rate and Rhythm: Normal rate and regular rhythm. Heart sounds: Normal heart sounds. No murmur heard. No friction rub. No benjamin (more content not included)... Normal [facility] 03-14-2025 [facility] Telephone (DURGA) KARLENE TOM ([id number]) 1980 F Date Time Provider Department 03/14/25 BRI VO During your visit today, we recorded the following information about you: Radha Calixto 03/14/2025 12:52 PM Signed Patient called because she wants more information about her thyroidectomy. She is confused as to why her Dr informed her that her blood work was fine but she still needs the surgery. Patient is feeling ambivalent about having the surgery. She is unsure if the surgery is necessary. Patient is also concerned about the coordination with her liver doctor and scheduled liver surgery in April. Patient is anxious. Patient has many questions related to diet, such as significant weight gain and sugar intake. Patient requests a telephone call to discuss the pros/cons of having the surgery. Trenton Waggoner, RN 03/14/2025 2:17 PM Signed 03/14/25 1405 H Called patient and informed her that the reason Dr. Vo is recommending surgery is because she was having compressive symptoms from her 5.5 cm thyroid nodule last time she was seen at the office. She stated that she no longer have that. Discussed what thyroglobulin is and her normal TSH level. I answered her questions. She has an appointment with her PCP this Thursday and will also ask for their opinion. She will confirm if she will proceed with surgery after her PCP appointment. She was thankful for the call. INEZ Lawrence Ma, RN 03/23/2025 10:16 AM Signed 03/23/25 1010H Left pt a voice mail asking if she had made a decision if she would like to proceed with surgery. I have given her the office number or she can send a [email or web address] message with her decision. Trenton Waggoner RN Allergies As of Date: 03/14/2025 Noted Allergy Reaction AMOXICILLIN 06/17/2024 4 - Hives LATEX 11/15/2007 10 - Anaphylaxis CIPROFLOXACIN 05/18/2023 4 - Hives 9 - Itching MORPHINE 05/26/2017 8 - GI Upset NEOSPORIN (NEOMYCIN-BACITRACIN- PO*10/07/2011 2 - Rash SILVER SULFADIAZINE 01/18/2024 14 - Other: See Comments ZINC OXIDE 10/07/2011 2 - Rash Date Reviewed: 12/20/2024 Reviewed by: Aidan Montenegro MD - Fully Assessed Prescriptions as of 03/23/2025 - pregabalin (LYRICA) 75 mg capsule Take 1 capsule by mouth three times a day for 30 days. - traMADol (ULTRAM) 50 mg tablet Take 1 tablet by mouth three times a day for 30 days. - cholecalciferol, vitamin D3, (VITAMIN D3 ORAL) Take by mouth. - dulaglutide (TRULICITY) 1.5 mg/0.5 mL pen injector Inject 1.5 mg subcutaneously one time a week. - cyclobenzaprine (FLEXERIL) 10 mg tablet Take 10 mg by mouth three times a day as needed. - ondansetron orally disintegrating (ZOFRAN ODT) 4 mg disintegrating tablet Take 4 mg by mouth every 8 hours as needed for nausea/vomiting. - IBUPROFEN (MOTRIN ORAL) Take by mouth. Problem List As Of Date 03/14/2025 Noted Resolved Unspecified site of sprain and [...] G89.29] 10/03/2004 Multiple thyroid nodules [E04.2] 04/08/2024 Difficult intravenous access [Z78.9] 12/14/2024 Encounter Status:Closed by TRENTON WAGGONER on 03/23/25 [facility] 02-22-2025 [facility] KARLENE TOM ([id number]) 1980 F Date Time Provider Department 02/22/25 TRACIE WILLIAMSON INTMLN During your visit today, we recorded the following information about you: Tracie Williamson, CAFETERIA HELPER.HIGH PRESSURE OPERATOR 02/22/2025 12:16 PM Signed Chart reviewed in light of upcoming appt today Traveling a great distance from [facility] for medication refill as pcp left Can you call her to see what she needs and if a refill can she request on mychart? I have not seen her in over a year so unknown what the history is with her medication, but can try to refill if able without a big trip to ask for a refill Mariah Mann RN 02/22/2025 12:30 PM Signed Call placed to pt per provider request. Pt states she is looking for a refill of her Tramadol and Lyrica. Pt states she has spina bifida. Pt also asked how to go about finding a new primary. Advised will ask my scheduling team contact her to arrange a new PCP appointment. Pt verbalized understanding. No further questions. Mariah Mann RN 02/22/2025 12:39 PM Signed Message received from provider. Will provide one month refill. Must be seen in March for next refill if not yet established with new PCP. Malini Garcia 02/22/2025 12:53 PM Signed Patient Scheduled to establish care with Alexander Gallegos MD on 03/17/25 at 3:45 PM. Tracie Williamson APRN.CNP 02/22/2025 3:36 PM Signed The following approved medication requests have been transmitted electronically. Requested Prescriptions Signed Prescriptions Disp Refills pregabalin (LYRICA) 75 mg capsule 90 capsule 0 Sig: Take 1 capsule by mouth three times a day for 30 days. Authorizing Provider: TRACIE WILLIAMSON traMADol (ULTRAM) 50 mg tablet 90 tablet 0 Sig: Take 1 tablet by mouth three times a day for 30 days. Authorizing Provider: TRACIE WILLIAMSON APRN.CNP Allergies As of Date: 02/22/2025 Noted Allergy Reaction AMOXICILLIN 06/17/2024 4 - Hives LATEX 11/15/2007 10 - Anaphylaxis CIPROFLOXACIN 05/18/2023 4 - Hives 9 - Itching MORPHINE 05/26/2017 8 - GI Upset NEOSPORIN (NEOMYCIN-BACITRACIN- PO*10/07/2011 2 - Rash SILVER SULFADIAZINE 01/18/2024 14 - Other: See Comments ZINC OXIDE 10/07/2011 2 - Rash Date Reviewed: 12/20/2024 Reviewed by: Aidan Montenegro MD - Fully Assessed Reason for Visit: Appointment [186] Visit Diagnosis:Chronic bilateral low back pain, unspecified whether sciatica present [M54.50, G89.29] Order(s):pregabalin (LYRICA) 75 mg capsuleTake 1 capsule by mouth three times a day for 30 days.Disp: 90 capsuleRfl: 0 traMADol (ULTRAM) 50 mg tabletTake 1 tablet by mouth three times a day for 30 days.Disp: 90 tabletRfl: 0 Prescriptions as of 02/22/2025 - pregabalin (LYRICA) 75 mg capsule Take 1 capsule by mouth three times a day for 30 days. - traMADol (ULTRAM) 50 mg tablet Take 1 tablet by mouth three times a day for 30 days. - cholecalciferol, vitamin D3, (VITAMIN D3 ORAL) Take by mouth. - dulaglutide (TRULICITY) 1.5 mg/0.5 mL pen injector Inject 1.5 mg subcutaneously one time a week. - cyclobenzaprine (FLEXERIL) 10 mg tablet Take 10 mg by mouth three times a day as needed. - ondansetron orally disintegrating (ZOFRAN ODT) 4 mg disintegrating tablet Take 4 mg by mouth every 8 hours as needed for nausea/vomiting. - IBUPROFEN (MOTRIN ORAL) Take by mouth. Problem List As Of Date 02/22/2025 Noted Resolved Unspecified site of sprain and [...] G89.29] 10/03/2004 Multiple thyroid nodules [E04.2] 04/08/2024 Difficult intravenous access [Z78.9] 12/14/2024 Prescriptions ordered this encounter Disp Refills Start End PREGABALIN 75 MG CAPSULE 90 c* 0 02/22/2025 03/24/2025 Route: PO Sig: Take 1 capsule by mouth three times a day for 30 days. TRAMADOL 50 MG TABLET 90 t* 0 02/22/2025 03/24/2025 Route: PO Sig: Take 1 tablet by mouth three times a day for 30 days. Medications Discontinued During This Encounter Prescriptions - traMADol (ULTRAM) 50 mg tablet (Discontinued) Take 1 tablet by mouth three times a day for 56 days. - pregabalin (LYRICA) 75 mg capsule (Discontinued) Take 1 (more content not included)... [facility] Telephone ([facility]) NEGROKARLENE D ([id number]) 1980 F Date Time Provider Department 12/23/24 ROD RANDHAWA [facility] During your visit today, we recorded the following information about you: Rod Randhawa PA-C 12/23/2024 7:31 AM Signed Good morning, I evaluated Ms. Karlene Allenrier in [facility], she is scheduled for surgery on 12/28. She self-catheterizes due to neurogenic bladder and was complaining of abnormal urine odor and change in color. Urine culture grew E.coli, I prescribed the patient Macrobid. Please let me know if you have any questions or concerns. KEVIN HarmonC [facility] Allergies As of Date: 12/23/2024 Noted Allergy Reaction AMOXICILLIN 06/17/2024 4 - Hives LATEX 11/15/2007 10 - Anaphylaxis CIPROFLOXACIN 05/18/2023 4 - Hives 9 - Itching MORPHINE 05/26/2017 8 - GI Upset NEOSPORIN (NEOMYCIN-BACITRACIN- PO*10/07/2011 2 - Rash SILVER SULFADIAZINE 01/18/2024 14 - Other: See Comments ZINC OXIDE 10/07/2011 2 - Rash Date Reviewed: 12/20/2024 Reviewed by: Aidan Montenegro MD - Fully Assessed Reason for Visit: Pre-Op Update [997] Cmt: UTI Prescriptions as of 03/20/2025 - pregabalin (LYRICA) 75 mg capsule Take 1 capsule by mouth three times a day for 30 days. - traMADol (ULTRAM) 50 mg tablet Take 1 tablet by mouth three times a day for 30 days. - cholecalciferol, vitamin D3, (VITAMIN D3 ORAL) Take by mouth. - dulaglutide (TRULICITY) 1.5 mg/0.5 mL pen injector Inject 1.5 mg subcutaneously one time a week. - cyclobenzaprine (FLEXERIL) 10 mg tablet Take 10 mg by mouth three times a day as needed. - ondansetron orally disintegrating (ZOFRAN ODT) 4 mg disintegrating tablet Take 4 mg by mouth every 8 hours as needed for nausea/vomiting. - IBUPROFEN (MOTRIN ORAL) Take by mouth. Problem List As Of Date 12/23/2024 Noted Resolved Unspecified site of sprain and [...] G89.29] 10/03/2004 Multiple thyroid nodules [E04.2] 04/08/2024 Difficult intravenous access [Z78.9] 12/14/2024 Encounter Status:Closed by ROD RANDHAWA on 03/20/25 [facility] Bacteria Ur Culton Bacteria identified Cx Nom (U) ORGANISM ID: 1 >=100,000 CFU/ml Escherichia coli ORGANISM ID: 1 (ESCHERICHIA COLI) ------ ANTIBIOTIC INTERPRETATION DEEP STATUS REFERENCE RANGE ------ Ampicillin S 8 F Susceptible <=8 , Intermediate >8 , Resistant >16 Cefazolin S <=4 F Susceptible 0-16 , Intermediate <0 or >16 , Resistant >16 For uncomplicated urinary tract infections, cefazolin results can be used to predict susceptibility or resistance to cephalexin. Ceftriaxone S <=1 F Susceptible <=1 , Intermediate >1 , Resistant >=4 Cefepime S <=1 F Susceptible <=2 , Susceptible-Dose Dependent >2 , Resistant >=16 Ertapenem S <=0.5 F Susceptible <=0.5 , Intermediate >.5 , Resistant >1 Meropenem S <=0.25 F Susceptible <=1 , Intermediate >1 , Resistant >2 Ampicillin/Sulbact S <=2 F Susceptible <=8 , Intermediate >8 , Resistant >16 Piperacillin/Tazobac S <=4 F Susceptible <16 , Susceptible-Dose Dependent >=16 , Resistant >=32 Gentamicin S <=1 F Susceptible <=2 , Intermediate >2 , Resistant >=8 Tobramycin S <=1 F Susceptible <4 , Intermediate >=4 , Resistant >=8 Trimeth sulfameth S <=20 F Susceptible <=40 , Resistant >40 Ciprofloxacin S <=0.25 F Susceptible <0.5 , Intermediate >=.5 , Resistant >=1 Nitrofurantoin S <=16 F Susceptible <=32 , Intermediate >32 , Resistant >64 Abnormal [facility] Comment on above: Performed By: #### 6 30-4 ####[facility] LABCLIA [id number] [address] [place] CNOVon 12-20-2024 CNOV Office Visit (INTMLN ) KARLENE TOM ([id number]) 1980 F Date Time Provider Department 12/20/24 4:40 PM AIDAN MONTENEGRO INTAIDAN During your visit today, we recorded the following information about you: Pulse Blood pressure Weight Height 74/minute 122/73 127.8 kg 1.702 m Aidan Montenegro MD 12/20/2024 5:12 PM Signed Karlene Tom is a 43 year old female Chief complaint: Same Day Appointment (Mandatory medicine visit) Subjective HPI: Update since last visit: H/o chronic pain in low back pain and leg pain chronic, treated with pregabalin 75 mg 3 times daily and tramadol 50 mg TID, Prior treatment with ketamine once. Follow up neurology and neurosurgery. H/o neurogenic bladder had botox injection last week. Prescribed ciprofloxacin and reports had mouth and body itching Follow up Urology C/o changes in smell and frequently. Had visit for preanesthesia who recommended urine tests to r/o urine infection prior surgery before thyroidectomy recommended for thyroid nodules causing compressing symptoms referred for surgery Frequent urine infections about 6 UTI in past 1 year. Planning to change urologist to [facility] PMDP: 11/22/2024 11/22/2024 1 Tramadol Hcl 50 Mg Tablet 84.00 28 Ra Joe [id number] [place] ([id number]) 0 30.00 MME Medicaid [place] 11/18/2024 10/17/2024 1 Pregabalin 75 Mg Capsule 84.00 28 Ra Joe [id number] [place] ([id number]) 1 1.51 LME Medicaid [place] History: H/o spina bifida and tethered cord with myelomeningocele repair at and reviion on 1994 and 2016, complicated with neurogenic bowel and bladder. Follow up Neurology, last appointment 01/19/24 Smoke: 1 ppd for 30 years, quitting, last cig 07/21/24 Currently using vaping, trying to quit as week Thyroid nodules with tenderness followed by endocrinology. Review of Systems Constitutional: Negative for fever and unexpected weight change. Respiratory: Negative for cough and shortness of breath. Cardiovascular: Negative for chest pain. Gastrointestinal: Negative for abdominal pain, nausea and vomiting. Musculoskeletal: Negative for arthralgias. Neurological: Negative for headaches. Objective BP 122/73 (BP Position: Sitting) Pulse 74 Ht 170.2 cm (5' 7 ) Wt 127.8 kg (281 lb 12 oz) LMP 11/27/2024 (Exact Date) SpO2 100% BMI 44.13 kg/m? BMI Readings from Last 3 Encounters: 12/20/24 : 44.13 kg/m? 12/14/24 : 43.07 kg/m? 09/08/24 : 42.86 kg/m? Last Wt 12/20/24 : 127.8 kg (281 lb 12 oz) 12/14/24 : 124.7 kg (275 lb) 09/08/24 : 126.9 kg (279 lb 14 oz) Last BP 12/20/24 : 122/73 09/08/24 : 120/72 08/31/24 : 128/84 Physical Exam Constitutional: Appearance: Normal appearance. HENT: Head: Atraumatic. Pulmonary: Effort: Pulmonary effort is normal. Neurological: General: No focal deficit present. Mental Status: She is alert. Mental status is at baseline. Psychiatric: Mood and Affect: Mood normal. Lab Results Component Value Date HBA1C 5.5 09/08/2024 HBA0=Estimated average glucose Lab Results Component Value Date CHOL 172 04/28/2006 CHOL 178.0 11/21/2004 HDL 46 04/28/2006 HDL 51 11/21/2004 LDL 104 04/28/2006 LDL 105 11/21/2004 TG 111 04/28/2006 TG 111 11/21/2004 Lab Results Component Value Date GLUC 74 11/24/2024 BUN 13 11/24/2024 CREAT 0.72 11/24/2024 NA 138 11/24/2024 K 4.0 11/24/2024 CHLOR 106 11/24/2024 CO2 27 11/24/2024 TPROT 6.9 06/23/2024 ALB 4.3 06/23/2024 CA 8.8 11/24/2024 ALKPHOS 72 06/23/2024 TBILI 0.4 06/23/2024 AST 21 06/23/2024 ALT 25 06/23/2024 No results found for: PCRAT , UALBCR PCRAT=Protein Creatinine Ratio; UABCR=Albumin Creat Ratio Lab Results Component Value Date TSH 1.620 11/24/2024 TSH 1.370 02/22/2024 TSH 2.590 06/11/2017 FREET4 1.2 02/22/2024 FREET4 1.16 11/21/2004 TPOAB <3.0 02/22/2024 07/01/24 US liver: Hepatic steatosis. Impression/Recommenda tions Social History Social History Narrative Not on file Karlene Tom is a 43 year old female - Obesity Body mass index is 44.13 kg/m?. Referred to endocrinology weight program on 06/2024 - RUQ due to Dyspepsia improving on psyllium and omeprazole. - Fatty liver noted on RUQ US. Risk factors: obesity, smoking, heavy alcohol use in the past. Alcohol: 1 day/month 1 drink. Refer to hepatology on 06/2024 - Every day smoker, 1 ppd for 30 years, Trying to quit, changed to nicotine vape last cig 07/21/24 Currently using vaping, trying to quit as week Addressed today: - H/o spina bifida and tethered cord with myelomeningocele repair at and revision on 1994 and 2016, - Chronic pain in low back pain and leg pain chronic, treated with pregabalin and tramadol. Follow up Neurology, last appointment 01/19/24 - H/o neurogenic bladder treated with botox injection - Frequent urine infections, about 6 in past 1 year. - Change in color and smell, christopher (more content not included)... Normal [facility] Urinalysis complete panel (U )on 12-20-2024 BACTERIA UL 4096.8 uL High Negative [facility] Comment on above: Order Comment: Speci men Type: URINE SPECIMENOrdering Facility: [facility] Address: [address] [place] [address] Performed By: #### 2 4356-8 ####[facility] LABCLIA [id number] [place] [address] [place] Bilirubin Ql (U) Negative Normal Negative [facility] Comment on above: Order Comment: Speci men Type: URINE SPECIMENOrdering Facility: [facility] Address: [address] [place] [address] Performed By: #### 2 4356-8 ####[facility] LABCLIA [id number] [place] [address] [place] Clarity (Unsp spec) Clear Normal Clear [facility] Comment on above: Order Comment: Speci men Type: URINE SPECIMENOrdering Facility: [facility] Address: [address] [place] [address] Performed By: #### 2 4356-8 ####[facility] LABCLIA [id number] [place] [address] [place] Color (U) Yellow Normal Yellow [facility] Comment on above: Order Comment: Speci men Type: URINE SPECIMENOrdering Facility: [facility] Address: [address] [place] [address] Performed By: #### 2 4356-8 ####[facility] LABCLIA [id number] [place] [address] [place] Epithelial cells LM.HPF (Urine sed) [#/Area] Moderate Normal [facility] Comment on above: Order Comment: Speci men Type: URINE SPECIMENOrdering Facility: [facility] Address: [address] [place] [address] Performed By: #### 2 4356-8 ####[facility] LABCLIA [id number] [address] STATES OF [facility] Glucose Test strip (U) [Mass/Vol] Negative Normal Negative [facility] Comment on above: Order Comment: Speci men Type: URINE SPECIMENOrdering Facility: [facility] Address: [address] [place] [address] Performed By: #### 2 4356-8 ####[facility] LABCLIA [id number] [place] [address] [place] Hemoglobin Ql (U) 1+ Abnormal Negative [facility] Comment on above: Order Comment: Speci men Type: URINE SPECIMENOrdering Facility: [facility] Address: [address] [place] [address] Performed By: #### 2 4356-8 ####[facility] LABCLIA [id number] [place] [address] [place] Hyaline casts (Urine sed) [#/Area] 1-3 /LPF Abnormal 0 /LPF [facility] Comment on above: Order Comment: Speci men Type: URINE SPECIMENOrdering Facility: [facility] Address: [address] [place] [address] Performed By: #### 2 4356-8 ####[facility] LABCLIA [id number] [facility] [address] [place] [address] [place] Ketones Ql (U) Negative Normal Negative [facility] Comment on above: Order Comment: Speci men Type: URINE SPECIMENOrdering Facility: [facility] Address: [address] [place] [address] Performed By: #### 2 4356-8 ####[facility] LABCLIA [id number] [place] [address] [place] Leukocyte esterase Test strip Ql (U) 2+ Abnormal Negative [facility] Comment on above: Order Comment: Speci men Type: URINE SPECIMENOrdering Facility: [facility] Address: [address] [place] [address] Performed By: #### 2 4356-8 ####[facility] LABCLIA [id number] [facility] [address], [facility] [place] Nitrite Ql (U) Positive Abnormal Negative [facility] Comment on above: Order Comment: Speci men Type: URINE SPECIMENOrdering Facility: [facility] Address: [address] [place] [address] Performed By: #### 2 4356-8 ####[facility] LABCLIA [id number] [facility] [address], [facility] [place] pH (U) 6.0 [pH] Normal <8.5 [facility] Comment on above: Order Comment: Speci men Type: URINE SPECIMENOrdering Facility: [facility] Address: [address] [place] [address] Performed By: #### 2 4356-8 ####[facility] LABCLIA [id number] [address], [facility] [place] Protein (U) [Mass/Vol] Negative Normal Negative [facility] Comment on above: Order Comment: Speci men Type: URINE SPECIMENOrdering Facility: [facility] Address: [address] [place] [address] Performed By: #### 2 4356-8 ####[facility] [id number] [place] [address] [place] RBC LM.HPF (Urine sed) [#/Area] 0-2 /HPF Normal 0-2 /HPF [facility] Comment on above: Order Comment: Speci men Type: URINE SPECIMENOrdering Facility: [facility] Address: [address] [place] [address] Performed By: #### 2 4356-8 ####[facility] [id number] [place] [address] [place] Specific gravity (U) [Rel density] 1.020 Normal 1.005-1.030 [facility] Comment on above: Order Comment: Speci men Type: URINE SPECIMENOrdering Facility: [facility] Address: [address] [place] [address] Performed By: #### 2 4356-8 ####[facility] [id number] [address] [place] Urobilinogen Ql (U) 0.2 EU/dL Normal 0.2-1.0 EU/dL [facility] Comment on above: Order Comment: Speci men Type: URINE SPECIMENOrdering Facility: [facility] Address: [address] [place] [address] Performed By: #### 2 4356-8 ####[facility] [id number] [place] [address] [place] WBC LM.HPF (Urine sed) [#/Area] /[HPF] Abnormal 0-5 /HPF [facility] Comment on above: Order Comment: Speci men Type: URINE SPECIMENOrdering Facility: [facility] Address: [address] [id number] Performed By: #### 2 4356-8 ####[facility] LABCLIA [id number] [facility] [id number] [place], [place] [id number] [place] HISTORY PHYSICALon HISTORY PHYSICAL HNO ID: [id number] Author: ROD RANDHAWA PA-C Service: ? Author Type: Physician Marine Equipment Sales Engineer Type: H&P Filed: 12/23/2024 07:31 Note Text: [facility] HISTORY AND PHYSICAL EXAMINATION SERVICE DATE: 12/14/2024 SERVICE TIME: 7:31 AM PRIMARY CARE PHYSICIAN: Aidan Forrester MD Assessment Patient has the following medical conditions which may affect saravanan-operative course: Morbid obesity with BMI of 40.0-44.9, adult (HCC) Body mass index is 43.07 kg/m?. Was on Trulicity, stopped the beginning of November. Difficult intravenous access Has needed US guidance. Neurogenic bladder Self-catheterizes. States she may have a UTI, has abnormal urine odor. Will have urine studies done at PCP office 12/20. Smoker Quit smoking 06/2024. 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 On Tramadol, Lyrica. Limited in activity due to back pain. Follows with neurology. ANESTHESIA FINDINGS: Intubation History: No history of difficult intubation Significant Anesthesia Considerations: States it takes a lot to put her to sleep, has h/o intraoperative awareness. potential difficult IV/vein access Airway History: No history of difficult airway Jones Activity Status Index: METS: Walk indoors, such as around the house (1.75 METs) Do light work around the house, such as dusting or washing dishes (2.70 METs) Take care of self; that is eating, dressing, bathing, using the toilet (2.75 METs) DASI Score: 7.2 (Inactive No exertional chest pain. ) Patient denies any chest pain or undue shortness of breath with the above physical activity. Clinical Frailty Scale: 5. Mildly frail STOP-Bang Score: BMI greater than 35 kg/m2 Has a large neck Denies snoring loudly Has not been observed to stop breathing or choking/gasping during sleep Denies having high blood pressure Patient 50 years old or younger Non-male patient STOP-Bang Score: 2 I - PHYSICAL EVALUATION AIRWAY Patient intubated: No. Tracheostomy tube not present Mallampati: III. Neck ROM: full ROM without neurological symptoms. Mouth opening: adequate. Short neck: yes. Additional comments: Pain with neck movement, enlarged thyroid.. Thick neck: yes Lip Bite Test: I DENTAL Dentures, upper: complete. Dentures, lower: partial. II - ANESTHESIA PLAN Anesthetic plan additional comments: *PACC/TCI - anesthesia choice. Beta Lucial Monitoring Plan Post Procedure Analgesic Plan Prepared for Surgery: optimally prepared for surgery, pending [see comment]. Urine studies. Addendum: Urinalysis suspicious for UTI, urine culture shows E.coli. Prescribed Macrobid for 5 days, called patient who verbalized understanding. Sent FYI TE to surgical team. CONSULTS: Patient does not require consults for optimization at this time Planned Anesthetic: anesthesia choice The Following Tests/Procedures Have Been Initiated: Urinalysis/culture Labs and EKG per surgical service. This is a virtual visit using [email or web address] video visit. It required patient-provider interaction for the medical decision making as documented below. REASON FOR VISIT: Karlene Tom is a 43 year old female who is scheduled for Procedure(s): THYROIDECTOMY TOTAL (Bilateral) at the request of Bri Noel MD for consultation. My final recommendation will be communicated back to the requesting physician by way of shared medical record or letter. Subjective The patient has the following: COVID-19 Immunization Status Upcoming Covid-19 Vaccine () Postponed until 06/23/2025 06/23/2024 Postponed until 06/23/2025 by Aidan Montenegro MD (Declined at this time) 01/06/2024 Postponed until 01/05/2025 by Tracie Williamson APRN.CNP (Declined at this time) CHIEF COMPLAINT: Pre-op evalution HPI: Patient is a 43 year old year old female who is scheduled for above procedure on 12/28/2024. Patient has an enlarged multinodular goiter. She first noticed a neck mass two years ago, she has dysphagia and pressure of her neck and chest. Denies any fevers, chills, nausea, vomiting, SOB. This is a virtual visit. The visit was conducted using [email or web address] video visit. It required patient-provider interaction for the medical decision making as documented below. I have communicated my name and active licensure. The patient's identity and physical location were verified at the time of this visit. Either the patient or their legal product support representative has been informed of the risks and benefits of and alternatives to treatment through a remote evaluation and consents to proceed with the evaluation remotely. REVIEW OF SYSTEMS: General: Negative for: weight loss >10% of BW in last 6 months, malaise and fever. Neurological: Spina Bifida Negative for: delirium, dementia, s (more content not included)... Normal [facility] 25(OH)D3 SerPl-mCncon 2024 25-hydroxyvitamin D3 [Mass/Vol] 22.0 ng/mL Low 31.0-80.0 [facility] Comment on above: Order Comment: Speci men Type: BLOOD SPECIMENOrdering Facility: [facility] Address: [address] [place] [address] Result Comment: Clas sification of 25 [place] Vitamin D status: Deficiency/Insufficiency: < or = 30 ng/ml. Sufficiency/Optimal Levels: 31-80 ng/mL Toxicity: > 100 ng/mL. Test performed by chemiluminescent immunoassay. Performed By: #### 1 989-3 ####[facility] LABCLIA [id number] [place] [address] [place] Basic metabolic 2000 panelon 11-24-2024 Anion gap [Moles/Vol] 5 mmol/L Low 8-15 [facility] Comment on above: Order Comment: Speci men Type: BLOOD SPECIMENOrdering Facility: [facility] Address: [address] [place] [address] Performed By: #### 3 016-3 ####[facility] LABCLIA [id number] [address] [address] [place]#### 69490-2 ####[facility] LABCLIA [id number] [place] [address] [place] Calcium [Mass/Vol] 8.8 mg/dL Normal 8.5-10.2 [facility] Comment on above: Order Comment: Speci men Type: BLOOD SPECIMENOrdering Facility: [facility] Address: [address] [place] [address] Performed By: #### 3 016-3 ####[facility] LABCLIA [id number] [place] [address] [place]#### 13998-9 ####[facility] LABIA [id number] [place] [address] [place] Chloride [Moles/Vol] 106 mmol/L Normal 98-107 [facility] Comment on above: Order Comment: Speci men Type: BLOOD SPECIMENOrdering Facility: [facility] Address: [address] [place] [address] Performed By: #### 3 016-3 ####[facility] LABCLIA [id number] [place] [address] [place]#### 11929-8 ####[facility] LABIA [id number] [place] [address] [place] CO2 [Moles/Vol] 27 mmol/L Normal 22-30 [facility] Comment on above: Order Comment: Speci men Type: BLOOD SPECIMENOrdering Facility: [facility] Address: [address] [place] [address] Performed By: #### 3 016-3 ####[facility] LABCLIA [id number] [place] [address] [place]#### 51758-1 ####[facility] LABCLIA [id number] [place] [address] [place] Creatinine [Mass/Vol] 0.72 mg/dL Normal 0.58-0.96 [facility] Comment on above: Order Comment: Speci men Type: BLOOD SPECIMENOrdering Facility: [facility] Address: [address] [place] [address] Performed By: #### 3 016-3 ####[facility] LABCLIA [id number] [place] [address] [place]#### 73925-0 ####[facility] LABCLIA [id number] [address] Creatinine and Glomerular filtration rate.predicted panel (S/P/Bld) 106 mL/min/1.73m??? Normal >=60 [facility] Comment on above: Order Comment: Ajay silvia Type: BLOOD SPECIMENOrdering Facility: [facility] Address: [address] [place] [address] Result Comment: Jennifer mated Glomerular Filtration Rate (eGFR) is calculated using the 2020 CKD-EPI creatinine equation. This equation utilizes serum creatinine, sex, and age as parameters. The creatinine assay has traceable calibration to isotope dilution-mass spectrometry. Refer to KDIGO guidelines for clinical interpretation. In patients with unstable renal function, e.g. those with acute kidney injury, the eGFR may not accurately reflect actual GFR. Performed By: #### 3 016-3 ####[facility] LABCLIA [id number] [place] [address] [place]#### 18096-5 ####[facility] LABCLIA [id number] [address] [place] [facility] Glucose [Mass/Vol] 74 mg/dL Normal 74-99 [facility] Comment on above: Order Comment: Ajay vega Type: BLOOD SPECIMENOrdering Facility: [facility] Address: [address] [place] [address] Result Comment: The [place] Diabetes Association (ADA) provides guidance for cutoff values for fasting glucose and random glucose. The ADA defines fasting as no caloric intake for at least 8 hours. Fasting plasma glucose results between 100 to 125 mg/dL indicate increased risk for diabetes (prediabetes). Fasting plasma glucose results greater than or equal to 126 mg/dL meet the criteria for diagnosis of diabetes. In the absence of unequivocal hyperglycemia, results should be confirmed by repeat testing. In a patient with classic symptoms of hyperglycemia or hyperglycemic crisis, random plasma glucose results greater than or equal to 200 mg/dL meet the criteria for diagnosis of diabetes. Reference: Standards of Medical Care in Diabetes 2016, [place] Diabetes Association. Diabetes Care. 2016.39(Suppl 1). Performed By: #### 3 016-3 ####[facility] LABCLIA [id number] [place] [address] [place]#### 51970-4 ####[facility] LABIA [id number] [place] [address] [place] Potassium [Moles/Vol] 4.0 mmol/L Normal 3.7-5.1 [facility] Comment on above: Order Comment: Speci men Type: BLOOD SPECIMENOrdering Facility: [facility] Address: [address] [place] [address] Performed By: #### 3 016-3 ####[facility] LABCLIA [id number] [place] [address] [place]#### 50876-9 ####[facility] LABIA [id number] [place] [address] [place] Sodium [Moles/Vol] 138 mmol/L Normal 136-144 [facility] Comment on above: Order Comment: Speci men Type: BLOOD SPECIMENOrdering Facility: [facility] Address: [address] [place] [address] Performed By: #### 3 016-3 ####[facility] LABCLIA [id number] [place] [address] [place]#### 69655-7 ####[facility] LABIA [id number] [place] [address] [place] Urea nitrogen [Mass/Vol] 13 mg/dL Normal 7-21 [facility] Comment on above: Order Comment: Speci men Type: BLOOD SPECIMENOrdering Facility: [facility] Address: [address] [place] [address] Performed By: #### 3 016-3 ####[facility] LABCLIA [id number] [place] [address] [place]#### 56154-7 ####[facility] LABCLIA [id number] [place] [address] [place] CBC W Auto Differential pane l (Bld)on 11-24-2024 Basophils (Bld) [#/Vol] 0.04 10*3/uL Normal <0.11 [facility] Comment on above: Order Comment: Speci men Type: BLOOD SPECIMENOrdering Facility: [facility] Address: [address] [place] [address] Performed By: #### 5 7021-8 ####[facility] LABCLIA [id number] [place] [address] [place] Basophils/100 WBC (Bld) 0.6 % Normal [facility] Comment on above: Order Comment: Speci men Type: BLOOD SPECIMENOrdering Facility: [facility] Address: [address] [place] [address] Performed By: #### 5 7021-8 ####[facility] LABCLIA [id number] [place] [address] [place] Differential cell count method Nom (Bld) Auto Normal [facility] Comment on above: Order Comment: Speci men Type: BLOOD SPECIMENOrdering Facility: [facility] Address: [address] [place] [address] Performed By: #### 5 7021-8 ####[facility] LABCLIA [id number] [place] [address] [place] Eosinophils (Bld) [#/Vol] 0.09 10*3/uL Normal <0.46 [facility] Comment on above: Order Comment: Speci men Type: BLOOD SPECIMENOrdering Facility: [facility] Address: [address] [place] [address] Performed By: #### 5 7021-8 ####[facility] LABCLIA [id number] [place] [address] [place] Eosinophils/100 WBC (Bld) 1.3 % Normal [facility] Comment on above: Order Comment: Speci men Type: BLOOD SPECIMENOrdering Facility: [facility] Address: [address] [place] [address] Performed By: #### 5 7021-8 ####[facility] LABCLIA [id number] [place] [address] [place] Erythrocyte distribution width (RBC) [Ratio] 12.4 % Normal 11.5-15.0 [facility] Comment on above: Order Comment: Speci men Type: BLOOD SPECIMENOrdering Facility: [facility] Address: [address] [place] [address] Performed By: #### 5 7021-8 ####[facility] LABCLIA [id number] [place] [address] [place] Hematocrit (Bld) [Volume fraction] 38.7 % Normal 36.0-46.0 [facility] Comment on above: Order Comment: Speci men Type: BLOOD SPECIMENOrdering Facility: [facility] Address: [address] [place] [address] Performed By: #### 5 7021-8 ####[facility] LABCLIA [id number] [place] [id number] [place] Hemoglobin (Bld) [Mass/Vol] 12.7 g/dL Normal 11.5-15.5 [facility] Comment on above: Order Comment: Speci men Type: BLOOD SPECIMENOrdering Facility: [facility] Address: [address] [place] [address] Performed By: #### 5 7021-8 ####[facility] LABCLIA [id number] [place] [address] [place] Immature granulocytes (Bld) [#/Vol] 0.03 10*3/uL Normal <0.10 [facility] Comment on above: Order Comment: Speci men Type: BLOOD SPECIMENOrdering Facility: [facility] Address: [address] [place] [address] Performed By: #### 5 7021-8 ####[facility] LABCLIA [id number] [place] [address] [place] Immature granulocytes/100 WBC (Bld) 0.4 % Normal [facility] Comment on above: Order Comment: Speci men Type: BLOOD SPECIMENOrdering Facility: [facility] Address: [address] [place] [address] Performed By: #### 5 7021-8 ####[facility] LABCLIA [id number] [place] [address] [place] Lymphocytes (Bld) [#/Vol] 1.92 10*3/uL Normal 1.00-4.00 [facility] Comment on above: Order Comment: Speci men Type: BLOOD SPECIMENOrdering Facility: [facility] Address: [address] [place] [address] Performed By: #### 5 7021-8 ####[facility] LABCLIA [id number] [place] [address] [place] Lymphocytes/100 WBC (Bld) 28.0 % Normal [facility] Comment on above: Order Comment: Speci men Type: BLOOD SPECIMENOrdering Facility: [facility] Address: [address] [place] [address] Performed By: #### 5 7021-8 ####[facility] LABCLIA [id number] [place] [id number] [place] MCH (RBC) [Entitic mass] 28.8 pg Normal 26.0-34.0 [facility] Comment on above: Order Comment: Speci men Type: BLOOD SPECIMENOrdering Facility: [facility] Address: [address] [place] [address] Performed By: #### 5 7021-8 ####[facility] LABCLIA [id number] [place] [address] [place] MCHC (RBC) [Mass/Vol] 32.8 g/dL Normal 30.5-36.0 [facility] Comment on above: Order Comment: Speci men Type: BLOOD SPECIMENOrdering Facility: [facility] Address: [address] [place] [address] Performed By: #### 5 7021-8 ####[facility] LABCLIA [id number] [place] [address] [place] MCV (RBC) [Entitic vol] 87.8 fL Normal 80.0-100.0 [facility] Comment on above: Order Comment: Speci men Type: BLOOD SPECIMENOrdering Facility: [facility] Address: [address] [place] [address] Performed By: #### 5 7021-8 ####[facility] LABCLIA [id number] [place] [address] [place] Monocytes (Bld) [#/Vol] 0.43 10*3/uL Normal <0.87 [facility] Comment on above: Order Comment: Speci men Type: BLOOD SPECIMENOrdering Facility: [facility] Address: [address] [place] [address] Performed By: #### 5 7021-8 ####[facility] LABCLIA [id number] [place] [address] [place] Monocytes/100 WBC (Bld) 6.3 % Normal [facility] Comment on above: Order Comment: Speci men Type: BLOOD SPECIMENOrdering Facility: [facility] Address: [address] [place] [address] Performed By: #### 5 7021-8 ####[facility] LABCLIA [id number] [address] [address] [place] Neutrophils (Bld) [#/Vol] 4.35 10*3/uL Normal 1.45-7.50 [facility] Comment on above: Order Comment: Speci men Type: BLOOD SPECIMENOrdering Facility: [facility] Address: [address] [place] [address] Performed By: #### 5 7021-8 ####[facility] LABCLIA [id number] [place] [address] [place] Neutrophils/100 WBC (Bld) 63.4 % Normal [facility] Comment on above: Order Comment: Speci men Type: BLOOD SPECIMENOrdering Facility: [facility] Address: [address] [place] [address] Performed By: #### 5 7021-8 ####[facility] LABCLIA [id number] [place] [address] [place] Nucleated RBC (Bld) [#/Vol] 10*3/uL Normal <0.01 [facility] Comment on above: Order Comment: Speci men Type: BLOOD SPECIMENOrdering Facility: [facility] Address: [address] [place] [address] Performed By: #### 5 7021-8 ####[facility] LABCLIA [id number] [facility] [place] [address] [place] Nucleated RBC/100 WBC (Bld) [Ratio] 0.0 /100 WBC Normal [facility] Comment on above: Order Comment: Speci men Type: BLOOD SPECIMENOrdering Facility: [facility] Address: [address] [place] [address] Performed By: #### 5 7021-8 ####[facility] LABCLIA [id number] [address], [facility] [place] [place] Platelet mean volume (Bld) [Entitic vol] 10.0 fL Normal 9.0-12.7 [facility] Comment on above: Order Comment: Speci men Type: BLOOD SPECIMENOrdering Facility: [facility] Address: [address] [place] [address] Performed By: #### 5 7021-8 ####[facility] LABIA [id number] [address] [address] [place] SAMMY Platelets (Bld) [#/Vol] 271 10*3/uL Normal 150-400 [facility] Comment on above: Order Comment: Speci men Type: BLOOD SPECIMENOrdering Facility: [facility] Address: [address] [place] [address] Performed By: #### 5 7021-8 ####[facility] LABIA [id number] [place] [address] [place] RBC (Bld) [#/Vol] 4.41 10*6/uL Normal 3.90-5.20 [facility] Comment on above: Order Comment: Speci men Type: BLOOD SPECIMENOrdering Facility: [facility] Address: [address] [place] [address] Performed By: #### 5 7021-8 ####[facility] LABIA [id number] [place] [address] [place] WBC (Bld) [#/Vol] 6.86 10*3/uL Normal 3.70-11.00 [facility] Comment on above: Order Comment: Speci men Type: BLOOD SPECIMENOrdering Facility: [facility] Address: [address] [place] [address] Performed By: #### 5 7021-8 ####[facility] LABIA [id number] [place] [id number] [place] CNNURSEon 11-24-2024 CNNURSE Nurse Visit (ROB) KARLENE TOM ([id number]) 1980 F Date Time Provider Department 11/24/24 1:30 PM NURSE [facility] LIANE RIVAS During your visit today, we recorded the following information about you: Indira Willingham MA 11/24/2024 1:26 PM Signed Heart, Vascular AND Thoracic [facility] Department of Cardiovascular Medicine OUTPATIENT VISIT TYPE NURSE VISIT PATIENT NAME: Karlene Tom DATE OF SERVICE: 11/24/2024 PRIMARY RUBBER BELT SPLICER: none Karlene Tom is a 43 year old established patient who presents today for a nurse visit per Dr. Vo for an EKG for pre-op testing LMP 08/28/2024 (Exact Date) Physician/OTIS notification and treatment plan: EKG uploaded to [employer] Nursing Plan: N/A Patient instructed to call and update the office if there are any changes in current condition. Patient verbalizes understanding of the plan: Yes. Patient's questions were addressed during the visit today: Yes Indira Willingham MA November 24, 2024 1:25 PM Referring Provider: BRI VO [[id number]] Allergies As of Date: 11/24/2024 Noted Allergy Reaction AMOXICILLIN 06/17/2024 4 - Hives LATEX 11/15/2007 10 - Anaphylaxis CIPROFLOXACIN 05/18/2023 4 - Hives 9 - Itching MORPHINE 05/26/2017 8 - GI Upset NEOSPORIN (NEOMYCIN-BACITRACIN- PO*10/07/2011 2 - Rash SILVER SULFADIAZINE 01/18/2024 14 - Other: See Comments ZINC OXIDE 10/07/2011 2 - Rash Date Reviewed: 11/08/2024 Reviewed by: Shelbie Ortiz LPN - Fully Assessed Visit Diagnosis:Multiple thyroid nodules [E04.2] Order(s):ECG COMPLETE [ECG01] Order #: [id number] Prescriptions as of 11/24/2024 - traMADol (ULTRAM) 50 mg tablet Take 1 tablet by mouth three times a day for 56 days. - pregabalin (LYRICA) 75 mg capsule Take 1 capsule by mouth three times a day for 56 days. - dulaglutide (TRULICITY) 1.5 mg/0.5 mL pen injector Inject 1.5 mg subcutaneously one time a week. - cyclobenzaprine (FLEXERIL) 10 mg tablet Take 10 mg by mouth three times a day as needed. - ondansetron orally disintegrating (ZOFRAN ODT) 4 mg disintegrating tablet Take 4 mg by mouth every 8 hours as needed for nausea/vomiting. - IBUPROFEN (MOTRIN ORAL) Take by mouth. Problem List As Of Date 11/24/2024 Noted Resolved Unspecified site of sprain and [...] thyroid nodules [E04.2] 04/08/2024 Encounter Status:Closed by INDIRA WILLINGHAM on 11/24/24 Normal [facility] [id number] 11-24-2024 ECG01 Ventricular Rate : 6 6 BPM Atrial Rate : 66 BPM P-R Interval : 142 ms QRS Duration : 84 ms Q-T Interval : 390 ms QTC Calculation(Bazett) : 408 ms Calculated P [place] : 62 degrees Calculated R [place] : 33 degrees Calculated T [place] : 35 degrees NORMAL SINUS RHYTHM POSSIBLE LEFT ATRIAL ENLARGEMENT BORDERLINE ECG Confirmed by KAREEN PACE MD ([id number]) on 11/25/2024 4:27:43 PM NAME : KARLENE TOM PID : [id number] : 1980 Gender : Female Race : ORD : Procedure Date : Nov 24 2024 13:23:14 Edit Date : Nov 25 2024 16:29:00 Diagnosis: NORMAL SINUS RHYTHM POSSIBLE LEFT ATRIAL ENLARGEMENT BORDERLINE ECG Confirmed by KAREEN PACE MD ([id number]) on 11/25/2024 4:27:43 PM Test Reason : Location : 145 : LOCARD Overread By : KAREEN PACE MD Edited By : KAREEN PACE MD Referred By : BRI VO Acquired by : , Normal [facility] TSH SerPl-aCncon 11-24-2024 TSH Qn 1.620 m[IU]/L Normal 0.270-4.200 [facility] Comment on above: Order Comment: Speci men Type: BLOOD SPECIMENOrdering Facility: [facility] Address: [address] [place] [address] Result Comment: If t he patient is , TSH reference range varies by gestational period: First Trimester (weeks 9-12): 0.180-2.990 mIU/L Second Trimester: 0.110-3.980 mIU/L Third Trimester: 0.480-4.710 mIU/L Kristopher Faust et al. A Practical Approach for the Verifications and Determination of Site- and Trimester-Specific Reference Intervals for Thyroid Function tests in . Thyroid, 2019:29:3:412-420. Eamon Taylor, et al. 2017 Guidelines of the [place] Thyroid Association for the Diagnosis and Management of Thyroid Disease during and the . Thyroid, 2017:27:3:315-389. Performed By: #### 3 016-3 ####[facility] LABCLIA [id number] [place] [address] [place]#### 73700-8 ####[facility] LABCLIA [id number] [place] [address] [place] Thyroglobulin and Thyrogobul in Ab panelon 11-24-2024 Thyroglobulin Ab Qn [IU]/mL Normal <4.0 [facility] Comment on above: Order Comment: Ajay vega Type: BLOOD SPECIMENOrdering Facility: [facility] Address: [address] [place] [address] Result Comment: The Thyroglobulin Antibody test was performed using the [employer] DXI paramagnetic particle chemiluminescent immunoassay method. Results obtained with different assay methods or kits cannot be used interchangeably. Performed By: #### 5 7780-9 ####[facility] LABCLIA [id number] [place] [address] [place] THYROGLOBULIN, SERUM 115.4 ng/mL High 1.6-50.0 [facility] Comment on above: Order Comment: Ajay vega Type: BLOOD SPECIMENOrdering Facility: [facility] Address: [address] [place] [address] Result Comment: The Thyroglobulin test was performed using the [employer] DXI paramagnetic particle chemiluminescent immunoassay method. Results obtained with different assay methods or kits cannot be used interchangeably. Performed By: #### 5 7780-9 ####[facility] LABCLIA [id number] [place] [address] [place] CNOVon 11-08-2024 CNOV Office Visit (UAM ) KARLENE TOM ([id number]) 1980 F Date Time Provider Department 11/08/24 1:00 PM BRI VO During your visit today, we recorded the following information about you: Bri Vo MD 11/08/2024 12:41 PM Signed [facility] Department of Endocrine Surgery Bri Vo M.D. [address] [place] [address], [place] [address] Ms. Karlene Tom was seen in the office today in consultation for an enlarged multinodular goiter. The patient was referred by Dr. Jailene Dave, and my findings and recommendations will be communicated by way of the shared medical record. Thank you for referring your patient, Ms. Tom, for evaluation of an enlarged multinodular goiter. As you know, she is a 43-year-old female who noticed a neck mass two years ago. Her most recent thyroid ultrasound performed on 02/08/24 revealed an enlarged multinodular goiter with the largest nodule measuring 5.5 cm in the right thyroid gland. This nodule as well as an isthmus nodule were biopsied, and both were benign. The patient's past medical history is significant for spina bifida, neuropathy, morbid obesity, and neurogenic bladder. Her medications include dulaglutide, tramadol, pregabalin, ondansetron, and cyclobenzaprine. The patient's past surgical history is significant for three back surgeries, three abdominal surgeries, eye surgeries, LEEP, Botox surgery on bladder, and leg surgeries. The patient denies any family history of thyroid cancer or any other thyroid diseases. The patient denies any history of ionizing radiation to the head or neck. In terms of compressive symptoms related to the thyroid gland, she has dysphagia and pressure on her neck. Latest Ref Rng 02/22/2024 - THYROID DATA FLOWSHEET TSH 0.400 - 5.500 uU/mL TSH 0.270 - 4.200 mIU/L 1.370 Free T4 0.85 - 1.8 ng/dL Free T4 0.9 - 1.7 ng/dL 1.2 On physical examination, Ms. Tom is an overweight female in no acute distress. She appears clinically euthyroid. Inspection of the head and neck reveals a mass on the right side of the neck. Palpation of the neck reveals a slightly firm mass in the right thyroid bed. Ultrasound examination was performed in the office. This revealed a right thyroid gland that was enlarged and replaced by a solid nodule measuring 4.02 x 3.26 x 5.5 cm. The inferior pole could only be imaged with deglutition. There was also a 2 cm nodule in the isthmus. The left thyroid gland was smaller and contained two subcm nodules. No abnormal central or jugular lymphadenopathy was appreciated on ultrasound. In summary, Ms. Tom is a 43-year-old female with an enlarged multinodular goiter causing compressive symptoms. Therefore, I feel that she would be best served by undergoing a total thyroidectomy. The indications, risks, benefits, and alternatives of a total thyroidectomy were explained to the patient in detail. I will keep you informed as to her perioperative course. I appreciate being involved in the care of your patient, and please feel free to contact me should you have additional questions or concerns. BRI VO M.D. CC: Susan Webb M.D. Referring Provider: JAILENE DAVE [[id number]] Allergies As of Date: 11/08/2024 Noted Allergy Reaction AMOXICILLIN 06/17/2024 4 - Hives LATEX 11/15/2007 10 - Anaphylaxis CIPROFLOXACIN 05/18/2023 4 - Hives 9 - Itching MORPHINE 05/26/2017 8 - GI Upset NEOSPORIN (NEOMYCIN-BACITRACIN- PO*10/07/2011 2 - Rash SILVER SULFADIAZINE 01/18/2024 14 - Other: See Comments ZINC OXIDE 10/07/2011 2 - Rash Date Reviewed: 11/08/2024 Reviewed by: Shelbie Ortiz LPN - Fully Assessed Reason for Visit: Thyroid Disease [2088] Primary Visit Diagnosis:Multiple thyroid nodules [E04.2] Other Visit Diagnosis:Thyroid nodule [E04.1] Order(s):US THYROID/PARATHYROID (POC) ENDO USE ONLY [[id number]] Order #: [id number]. #:[id number]: 1 CONSULT TO ENDOCRINE SURGERY [[id number]] Order #: [id number]: 1 Prescriptions as of 11/08/2024 - dulaglutide (TRULICITY) 1.5 mg/0.5 mL pen injector Inject 1.5 mg subcutaneously one time a week. - traMADol (ULTRAM) 50 mg tablet Take 1 tablet by mouth three times a day for 56 days. - pregabalin (LYRICA) 75 mg capsule Take 1 capsule by mouth three times a day for 56 days. - cyclobenzaprine (FLEXERIL) 10 mg tablet Take 10 mg by mouth three times a day as needed. - ondansetron orally disintegrating (ZOFRAN ODT) 4 mg disintegrating tablet Take 4 mg by mouth every 8 hours as needed for nausea/vomiting. - IBUPROFEN (MOTRIN ORAL) Take by mouth. Problem List As Of Date 11/08/2024 Noted Resolved Unspecified site of sprain and strain [T14.8XXA]10/25/2003 05/17/2012 Pain in joint, l (more content not included)... Normal [facility] US Thyroid glandon [facility] Radiology Study observation (narrative) [facility] CNPNon 11-02-2024 [facility] Telephone (UMN) KARLENE OTM ([id number]) 1980 F Date Time Provider Department 11/02/24 BRI VO During your visit today, we recorded the following information about you: Hi Montalvo 11/07/2024 9:28 AM Addendum 11/07/2024 INTAKE COMPLETED 11/03/2024 INTAKE PENDING-PT. VIEWED MailPix[employer] MSG.Last read by Karlene Tom at 3:10PM on 11/02/2024. --WAITING ON A RETURN CALL. 11/02/2024 INTAKE PENDING-NEED TSH-SENT MYCHART MSG FOR A RETURN CALL. ENDOCRINE SURGERY PATIENT WORKSHEET Initial Call Date: November 02, 2024 Reason for Consult/ Referral: Thyroid Nodule PATIENT DEMOGRAPHICS Name: Karlene Tom CCF#: [id number] : 1980 AGE: [age] year old Contact Numbers: Home: (home) Work: There is no work phone number on file. PATIENT PHYSICIAN INFORMATION Referring Doctor: Address: Phone: [employer]: Address: Phone: PCP: Aidan Forrester [address] [place] [address] PAST TREATMENT Office notes: SEE EPIC Medications: NONE THAT APPLY Pre-Visit Testing STUDY/TEST DATE ORDERED/REQUESTED DATE RECEIVED/COMPLETED ENTIRE PANEL TSH 11/02/24 FREE T4 FREE T3 Imaging Reports: SEE [facility] CD of Images: SEE EPIC FNA: yes: 03/2024 FNA Slides: FNA performed at [facility] Has the patient ever had thyroid or parathyroid surgery before: No Operative Reports: NONE AVAILABLE Pathology Reports: SEE EPIC Allergies As of Date: 11/02/2024 Noted Allergy Reaction AMOXICILLIN 06/17/2024 4 - Hives LATEX 11/15/2007 10 - Anaphylaxis CIPROFLOXACIN 05/18/2023 4 - Hives 9 - Itching MORPHINE 05/26/2017 8 - GI Upset NEOSPORIN (NEOMYCIN-BACITRACIN- PO*10/07/2011 2 - Rash SILVER SULFADIAZINE 01/18/2024 14 - Other: See Comments ZINC OXIDE 10/07/2011 2 - Rash Date Reviewed: 09/19/2024 Reviewed by: Aidan Montenegro MD - Fully Assessed Reason for Visit: Consult [173] Cmt: FACE SHEET Primary Visit Diagnosis:Multiple thyroid nodules [E04.2] Order(s):THYROID STIMULATING HORMONE [SQTSH] Order #: [id number] FUTURE Prescriptions as of 11/07/2024 - dulaglutide (TRULICITY) 1.5 mg/0.5 mL pen injector Inject 1.5 mg subcutaneously one time a week. - traMADol (ULTRAM) 50 mg tablet Take 1 tablet by mouth three times a day for 56 days. - pregabalin (LYRICA) 75 mg capsule Take 1 capsule by mouth three times a day for 56 days. - cyclobenzaprine (FLEXERIL) 10 mg tablet Take 10 mg by mouth three times a day as needed. - ondansetron orally disintegrating (ZOFRAN ODT) 4 mg disintegrating tablet Take 4 mg by mouth every 8 hours as needed for nausea/vomiting. - IBUPROFEN (MOTRIN ORAL) Take by mouth. Problem List As Of Date 11/02/2024 Noted Resolved Unspecified site of sprain and [...] thyroid nodules [E04.2] 04/08/2024 Encounter Status:Closed by HI MONTALVO on 11/02/24 [facility] CNOVon 09-08-2024 CNOV Office Visit (SORAYA ) KARLENE TOM ([id number]) 1980 F Date Time Provider Department 09/08/24 1:45 PM BRAYAN DAVE During your visit today, we recorded the following information about you: Temperature Pulse Blood pressure Weight 98.4 degrees 101/minute 120/72 126.9 kg Height 1.721 m Brayan Dave APRN.[facility] 09/08/2024 2:33 PM Signed [facility] NEW PATIENT VISIT HISTORY OF PRESENT ILLNESS: Patient is 43 year old year old female with a history of obesity class 3, multiple thyroid nodules (managed by Dr. Dave), fatty liver, spina bifida, chronic LBP, vitamin D deficiency presenting as a new patient to me for weight management. Referred by: Aidan Montenegro MD Consultation requested for an opinion regarding weight management and my final recommendations will be communicated back to the requesting physician by way of shared medical record or letter via US mail. Weight history: Struggled with weight since back surgery in 2016 Previous attempts at weight loss: mindful eating, avoiding SSB Most weight lost: 40 lbs with weight loss supplements, exercise Weight at end of high school: 180 lbs Maximum weight: 285 lbs Current weight: 279 lbs Patient goal or motivation for weight loss: reduce pain, feel safe having thyroid surgery Weight graph: Factors associated with weight gain: Family history of overweight: dad's side Weight gain associated with or menopause: yes, with son Tobacco use: quit 07/21/24 Weight gain associated with shift work: no Poor quality, unrestful sleep: yes Medications that may be associated with weight gain: Lyrica, tramadol Diet: 24 hour recall: B: none L: none D at 1500: hamburger with dutch and mushroom, 1 cup rally's fries Sn: none Beverages: 12 oz frappucino, Body Armor, Gatorade, water with Crystal Light Sugar-containing beverages: coffee with creamer EtOH: rarely Eating out/take out: varies, eating out a lot lately Feel hungry frequently: no Takes more food than average to feel full: no Feels hungry quickly after eating a meal: no Eat when not hungry (boredom, stress/emotional): no Frequent cravings or preoccupation with food: craves sweets after meal Frequently overeating or binge eating: no Portion control: no Late night or middle of night eating: sometimes snacks on peanuts Exercise/activity level: No structured exercise Walks at mall sometimes Limited by chronic back pain Sleep: Averages 4 hours per night Has difficulty falling and staying asleep, has racing thoughts, struggles to get comfortable d/t back pain, has nocturia 2/2 neurogenic bladder Does not feel rested upon waking Denies snoring JOCY: never tested CPAP: no Mood, stress: Mood is good Stress elevated Social: Employment: on disability Substance use: no Lives with fiance, 2 kids Previous experience with weight loss medications: Bupropion: no Naltrexone: no Phentermine: no Topiramate: took previously for COSTA (didn't take regularly) GLP-1: no Metformin: no Previous experience with weight loss treatments: History of bariatric surgery or interest in bariatric surgery: as a last resort Has the patient participated in a comprehensive weight loss program for the past 6 months (i.e. Weight Watchers, Noom, medically supervised programs, etc.)? no Medical history pertaining to weight loss medications: History of pancreatitis or gallstones: no History of kidney stones: no History of seizures or bulimia nervosa: no Current opiate use: no History of glaucoma: no History of CAD or uncontrolled HTN: no Personal/family history of MEN2, MTC: no History of diabetic retinopathy: no Method of contraception if woman of child bearing age: no REVIEW OF SYSTEMS: Per HPI MEDICAL, FAMILY, and SOCIAL HISTORY: Reviewed and updated in chart. ACTIVE PROBLEM LIST Smoker Spina Bifida (Hcc) Latex Allergy Tethered Cord (Hcc) Morbid Obesity With Bmi of 40.0-44.9, Adult (Hcc) History of Urinary Self-Catheterization Monocular Exotropia With Other Noncomitancies, Left Eye Hypotropia of Left Eye Vitamin D Deficiency Urge Incontinence Neurogenic Bladder Chronic Lower Back Pain Multiple Thyroid Nodules Current Outpatient Medications on File Prior to Visit Medication Sig tramadol HCl (TRAMADOL ORAL) Take 50 mg by mouth three times a day. cyclobenzaprine (FLEXERIL) 10 mg tablet Take 10 mg by mouth three times a day as needed. pregabalin (LYRICA) 75 mg capsule Take 1 capsule by mouth three times a day for 56 days. IBUPROFEN (MOTRIN ORAL) Take by mouth. ondansetron orally disintegrating (ZOFRAN ODT) 4 mg disintegrating tablet Take 4 mg by mouth every 8 hours as needed for nausea/vomiting. No current facility-administered medications on file prior to visit. PHYSICAL EXAM: BP (more content not included)... Normal [facility] HEMOGLOBIN A1C (POC)on 09-08 HbA1c (Bld) [Mass fraction] 5.5 % 4.3 - 5.6 % [facility] Comment on above: Location:[facility], [address], [place], [address] Point of care (POC) Hemoglobin A1c (HGBA1C) testing is intended to assess glucose control and provide a management tool for patients known to have diabetes and their healthcare providers. Target HGBA1C levels may depend on specific clinical circumstances. POC HGBA1C is not intended for use as a diagnostic or screening test; laboratory-based testing should be used for diagnostic purposes. The following information is supplemental and may not be applicable to specific diabetes management situations: The POC device clothes shaker provides a normal range of 4.2% to 6.5% for the HGBA1C POC test. However, the [place] Diabetes Association guidelines indicate that patients with HGBA1C in the range of 5.7% to 6.4% are at increased risk for development of diabetes and that intervention by lifestyle modification may be beneficial. A HGBA1C level greater than or equal to 6.5% is considered diagnostic of diabetes, pending confirmatory testing. Use of HGBA1C testing to evaluate glucose control may not be appropriate for patients with hemoglobin variants or other conditions (e.g. anemia) that alter red blood cell lifespan. [facility] Bacteria Ur Culton 4 Bacteria identified Cx Nom (U) ORGANISM ID: 1 >=100,000 CFU/ml Escherichia coli ORGANISM ID: 1 (ESCHERICHIA COLI) ------ ANTIBIOTIC INTERPRETATION DEEP STATUS REFERENCE RANGE ------ Ampicillin S 8 F Susceptible <=8 , Intermediate >8 , Resistant >16 Cefazolin S <=4 F Susceptible 0-16 , Intermediate <0 or >16 , Resistant >16 For uncomplicated urinary tract infections, cefazolin results can be used to predict susceptibility or resistance to cephalexin. Ceftriaxone S <=1 F Susceptible <=1 , Intermediate >1 , Resistant >=4 Cefepime S <=1 F Susceptible <=2 , Susceptible-Dose Dependent >2 , Resistant >=16 Ertapenem S <=0.5 F Susceptible <=0.5 , Intermediate >.5 , Resistant >1 Meropenem S <=0.25 F Susceptible <=1 , Intermediate >1 , Resistant >2 Ampicillin/Sulbact S <=2 F Susceptible <=8 , Intermediate >8 , Resistant >16 Piperacillin/Tazobac S <=4 F Susceptible <16 , Susceptible-Dose Dependent >=16 , Resistant >=32 Gentamicin S <=1 F Susceptible <=2 , Intermediate >2 , Resistant >=8 Tobramycin S <=1 F Susceptible <4 , Intermediate >=4 , Resistant >=8 Trimeth sulfameth S <=20 F Susceptible <=40 , Resistant >40 Ciprofloxacin S <=0.25 F Susceptible <0.5 , Intermediate >=.5 , Resistant >=1 Nitrofurantoin S <=16 F Susceptible <=32 , Intermediate >32 , Resistant >64 Abnormal [facility] Comment on above: Performed By: #### 6 30-4 ####[facility] [id number] [address] [place] CNOVon 08-31-2024 CNOV Office Visit (INTMLN ) KARLENE TOM ([id number]) 1980 F Date Time Provider Department 08/31/24 3:20 PM AIDAN MONTENEGRO INTMLN During your visit today, we recorded the following information about you: Temperature Pulse Blood pressure Weight 97.8 degrees 69/minute 128/84 127 kg Last Period 08/28/24 Aidan Montenegro MD 08/31/2024 4:58 PM Signed Karlene Tom is a 43 year old female Chief complaint: Recheck (Dizziness follow up, also thinks she has a UTI. Burning, frequency, etc x 5 days. Self caths. Also requesting refills) Subjective HPI: Update since last visit: C/o burning with urination, urgency, frequency for past 1 week. Reports about 6 UTI in past 1 year. Urinary irritants: Stimulants: coffee 3-4 days/week, tea 1 day/week, chocolate 3 days/week, weight loss products Medications: diuretics, stimulants, others Carbonation: soda/seltzer day/week, energy drinks (Redbull, Monster) Alcohol: 1 day/month 1 drink. Nicotine: Spicy food / hot sauce / hot peppers: Smoke: 1 ppd for 30 years, quitting, last cig 07/21/24 Currently using vaping, trying to quit as week Exercise: no. H/o neurogenic bladder had botox injection last week. Prescribed ciprofloxacin and reports had mouth and body itching Follow up Urology History: H/o spina bifida and tethered cord with myelomeningocele repair at and reviion on 1994 and 2016, complicated with neurogenic bowel and bladder. Follow up Neurology, last appointment 01/19/24 H/o chronic pain in low back pain and leg pain chronic, treated with pregabalin and tramadol, ketamine infusions. Follow up neurology and neurosurgery. Thyroid nodules with tenderness followed by endocrinology. PMDP: Filled Written ID Drug QTY Days Prescriber RX # Dispenser Refill Daily Dose* Pymt Type OFFICE ASSOCIATE 07/04/2024 07/04/2024 1 Tramadol Hcl 50 Mg Tablet 84.[address] [place] [place] ([id number]) 0 30.00 MME Medicaid [place] 07/04/2024 07/04/2024 1 Pregabalin 75 Mg Capsule 84.[address] [place] [place] ([id number]) 0 1.51 LME Medicaid [place] Review of Systems Constitutional: Negative for chills, fatigue, fever and unexpected weight change. No recent history of trauma, surgery, infection or malignancy. HENT: Negative for congestion, rhinorrhea, sore throat, trouble swallowing and voice change. Respiratory: Negative for cough and shortness of breath. Cardiovascular: Negative for chest pain. Gastrointestinal: Positive for abdominal distention, abdominal pain, constipation, diarrhea and nausea. Negative for blood in stool and vomiting. Positive heartburn and reflux. Genitourinary: Negative for pelvic pain. Musculoskeletal: Positive for arthralgias, back pain and myalgias. Psychiatric/Behaviora l: Negative for dysphoric mood and sleep disturbance. The patient is not nervous/anxious. Objective BP 128/84 (BP Site: Right Arm, BP Position: Sitting, BP Cuff Size: Large Adult) Pulse 69 Temp 36.6 ?C (97.8 ?F) (Temporal) Wt 127 kg (279 lb 15.8 oz) LMP 08/28/2024 (Exact Date) SpO2 98% BMI 43.85 kg/m? BMI Readings from Last 3 Encounters: 08/31/24 : 43.85 kg/m? 08/01/24 : 42.97 kg/m? 06/23/24 : 43.30 kg/m? Last Wt 08/31/24 : 127 kg (279 lb 15.8 oz) 08/01/24 : 124.5 kg (274 lb 5.8 oz) 06/23/24 : 125.4 kg (276 lb 7.3 oz) Last BP 08/31/24 : 128/84 06/23/24 : 118/82 05/19/24 : 108/89 Physical Exam Constitutional: Appearance: Normal appearance. HENT: [...] and Affect: Mood normal. Behavior: Behavior normal. .this No results found for: HBA1C , HBA0 HBA0=Estimated average glucose Lab Results Component Value Date CHOL 172 04/28/2006 CHOL 178.0 11/21/2004 HDL 46 04/28/2006 HDL 51 11/21/2004 LDL 104 04/28/2006 LDL 105 11/21/2004 TG 111 04/28/2006 TG 111 11/21/2004 Lab Results Component Value Date GLUC 80 06/23/2024 BUN 13 06/23/2024 CREAT 0.70 06/23/2024 NA 139 06/23/2024 K 4.2 06/23/2024 CHLOR 106 06/23/2024 CO2 21 (L) 06/23/2024 TPROT 6.9 06/23/2024 ALB 4.3 06/23/2024 CA 9.0 06/23/2024 ALKPHOS 72 06/23/2024 TBILI 0.4 06/23/2024 AST 21 06/23/2024 ALT 25 06/23/2024 No results found for: PCRAT , UALBCR PCRAT=Protein Creatinine Ratio; UABCR=Albumin Creat Ratio Lab Results Component Value Date TSH 1.370 (more content not included)... Normal [facility] CNPNon 08-10-2024 CNPN Telephone (PAINLN) KARLENE TOM ([id number]) 1980 F Date Time Provider Department 08/10/24 MARCUS VELAZQUEZ PAINLN During your visit today, we recorded the following information about you: Radha Harvey MA 08/10/2024 10:55 AM Signed Patient was advised of the following: This is a follow up phone call regarding your appointment with Dr Velazquez, which you are scheduled to see at [facility] on 08/10/2024 . 1) Have you been evaluated and treated by a Pain Management physician currently or in the past? If so, we will need a release of care from your previous physician. 2) Have you had any outside x-rays or MRI's related to the pain you are being seen for? If so, please bring copies to your appointment with you. Also please recall that our physicians will not take over medications. You will need to make sure you have enough pain medications to last until your follow up appointment with your current prescribing physician. Dr. Velazquez is primarily an interventional pain management provider, which means, they treat with physical therapy, injections and non-narcotic medications. Any questions or you need to reschedule please call us at [phone]. Left VM with new patient policy advised to call office with any questions or concerns Radha Harvey MA Allergies As of Date: 08/10/2024 Noted Allergy Reaction AMOXICILLIN 06/17/2024 4 - Hives LATEX 11/15/2007 10 - Anaphylaxis CIPROFLOXACIN 05/18/2023 4 - Hives 9 - Itching MORPHINE 05/26/2017 8 - GI Upset NEOSPORIN (NEOMYCIN-BACITRACIN- PO*10/07/2011 2 - Rash SILVER SULFADIAZINE 01/18/2024 14 - Other: See Comments ZINC OXIDE 10/07/2011 2 - Rash Date Reviewed: 08/01/2024 Reviewed by: Aidan Montenegro MD - Fully Assessed Reason for Visit: Appointment [186] Cmt: Pain management Prescriptions as of 08/10/2024 - cyclobenzaprine (FLEXERIL) 10 mg tablet Take 1 tablet by mouth as needed for muscle spasm. - traMADol (ULTRAM) 50 mg tablet Take 1 tablet by mouth three times a day for 56 days. - pregabalin (LYRICA) 75 mg capsule Take 1 capsule by mouth three times a day for 56 days. - omeprazole (PRILOSEC) 20 mg capsule Take 1 capsule by mouth once daily. - cefdinir (OMNICEF) 300 mg capsule Take 1 capsule by mouth every 12 hours. - ondansetron orally disintegrating (ZOFRAN ODT) 4 mg disintegrating tablet Take 4 mg by mouth every 8 hours as needed for nausea/vomiting. - Simethicone 125 mg chewable tablet Take 1 tablet by mouth three times a day as needed (bloating). - IBUPROFEN (MOTRIN ORAL) Take by mouth. - Walker (ULTRA-LIGHT ROLLATOR) misc 1 Units as needed. Rollator with seat Problem List As Of Date 08/10/2024 Noted Resolved Unspecified site of sprain and [...] thyroid nodules [E04.2] 04/08/2024 Encounter Status:Closed by RADHA HARVEY on 08/10/24 [facility] CNOVtez 08-01-2024 CNOV Office Visit (INTMLN ) KARLENE TOM ([id number]) 1980 F Date Time Provider Department 08/01/24 3:40 PM AIDAN MONTENEGRO INTMLN During your visit today, we recorded the following information about you: Weight Last Period 124.5 kg 07/31/24 Aidan Montenegro MD 08/01/2024 5:33 PM Signed Karlene Tom is a 43 year old female Chief complaint: Refill Request, Back Pain (Mid back), Nausea, Abdominal Pain, and Diarrhea (X1 week. ) Subjective HPI: Update since last visit: RUQ pain improved with tratment of omeprazole and simethicone. US abdomen showed fatty liver. Reviewed labs normal. Alcohol: 1 day/month 1 drink. Smoke: 1 ppd for 30 years, quitting, last cig 07/21/24 Currently using vaping, trying to quit as week Exercise: no. History: H/o spina bifida and tethered cord with myelomeningocele repair at and reviion on 1994 and 2016, complicated with neurogenic bowel and bladder. Follow up Neurology, last appointment 01/19/24 H/o neurogenic bladder had botox injection last week. Prescribed ciprofloxacin and reports had mouth and body itching Follow up Urology H/o chronic pain in low back pain and leg pain chronic, treated with pregabalin and tramadol, ketamine infusions. Follow up neurology and neurosurgery. Thyroid nodules with tenderness followed by endocrinology. PMDP: Filled Written ID Drug QTY Days Prescriber RX # Dispenser Refill Daily Dose* Pymt Type OFFICE ASSOCIATE 07/04/2024 07/04/2024 1 Tramadol Hcl 50 Mg Tablet 84.[address] [facility] [id number] [place] ([id number]) 0 30.00 E Medicaid [place] 07/04/2024 07/04/2024 1 Pregabalin 75 Mg Capsule 84.[address] u [id number] [place] (2342) 0 1.51 LME Medicaid [place] Review of Systems Constitutional: Negative for chills, fatigue, fever and unexpected weight change. No recent history of trauma, surgery, infection or malignancy. HENT: Negative for congestion, rhinorrhea, sore throat, trouble swallowing and voice change. Respiratory: Negative for cough and shortness of breath. Cardiovascular: Negative for chest pain. Gastrointestinal: Positive for abdominal distention, abdominal pain, constipation, diarrhea and nausea. Negative for blood in stool and vomiting. Positive heartburn and reflux. Genitourinary: Negative for pelvic pain. Musculoskeletal: Positive for arthralgias, back pain and myalgias. Psychiatric/Behaviora l: Negative for dysphoric mood and sleep disturbance. The patient is not nervous/anxious. Objective Wt 124.5 kg (274 lb 5.8 oz) LMP 07/31/2024 (Approximate) SpO2 96% BMI 42.97 kg/m? 08/01/24 1554 08/01/24 1556 08/01/24 1557 SpO2: 96% Weight: 124.5 kg (274 lb 5.8 oz) Orthostatic BP: 128/24 125/88 126/86 BP Position: Supine Sitting Standing Orthostatic Pulse: 87 83 104 BMI Readings from Last 3 Encounters: 08/01/24 : 42.97 kg/m? 06/23/24 : 43.30 kg/m? 04/08/24 : 44.47 kg/m? Last Wt 08/01/24 : 124.5 kg (274 lb 5.8 oz) 06/23/24 : 125.4 kg (276 lb 7.3 oz) 04/08/24 : 128.8 kg (283 lb 15.2 oz) Last BP 06/23/24 : 118/82 05/19/24 : 108/89 04/26/24 : 116/63 Physical Exam Constitutional: Appearance: Normal appearance. HENT: [...] 11/21/2004 Lab Results Component Value Date GLUC 80 06/23/2024 BUN 13 06/23/2024 CREAT 0.70 06/23/2024 NA 139 06/23/2024 K 4.2 06/23/2024 CHLOR 106 06/23/2024 CO2 21 (L) 06/23/2024 TPROT 6.9 06/23/2024 ALB 4.3 06/23/2024 CA 9.0 06/23/2024 ALKPHOS 72 06/23/2024 TBILI 0.4 06/23/2024 AST 21 06/23/2024 ALT 25 06/23/2024 No results found for: PCRAT , UALBCR PCRAT=Protein Creatinine Ratio; UABCR=Albumin Creat Ratio Lab Results Component Value Date TSH 1.370 02/22/2024 TSH 2.590 06/11/2017 TSH 1.55 11/15/2007 FREET4 1.2 02/22/2024 FREET4 1.16 11/21/2004 TPOAB <3.0 02/22/2024 07/01/24 US liver: Hepatic steatosis. Impression/Recommenda tions Social History Social History Narrative Not on file Karlene Joel Negro is a 43 year old female - H/o (more content not included)... Normal [facility] 07-04-2024 CNPN Telephone (INTMLN) KARLENE TOM ([id number]) 1980 F Date Time Provider Department 07/04/24 TRACIE WILLIAMSON INTMLN During your visit today, we recorded the following information about you: Tracie Williamson, ALEE.HIGH PRESSURE OPERATOR 07/04/2024 7:00 PM Signed Notify patient that her ultrasound results did not show any gallstones, there is presence of some fat deposits in the liver which can be improved with weight loss and long-term can lead to complications but are not contributing to her pain as reported at her recent office visit. She should make an appointment with Dr. Boo recheck how things are going on the medications he prescribed, this can be in person or virtual visit. Please schedule in the next 2 to 3 weeks. Alta Karimi, RN 07/04/2024 7:27 PM Signed Pt identified by name and Pt notified of below message and verbalizes understanding. PSS - Please assist with PCP 2-3 weeks Follow up RUQ Pain/Results Katie Salcido 07/05/2024 1:09 PM Signed Called and spoke with patient. She has accepted a 2-3 weeks PCP follow up appt - V.V. with Dr. Boo on 07/22/2024 @ 8:40am to discuss RUQ pain/results. Allergies As of Date: 07/04/2024 Noted Allergy Reaction LATEX 11/15/2007 10 - Anaphylaxis CIPROFLOXACIN 05/18/2023 4 - Hives 9 - Itching MORPHINE 05/26/2017 8 - GI Upset NEOSPORIN (NEOMYCIN-BACITRACIN- PO*10/07/2011 2 - Rash SILVER SULFADIAZINE 01/18/2024 14 - Other: See Comments ZINC OXIDE 10/07/2011 2 - Rash Date Reviewed: 07/04/2024 Reviewed by: Alta Oconnor APRN.HIGH PRESSURE OPERATOR - Fully Assessed Reason for Visit: Results [95] Prescriptions as of 07/05/2024 - traMADol (ULTRAM) 50 mg tablet Take 1 tablet by mouth three times a day for 56 days. - pregabalin (LYRICA) 75 mg capsule Take 1 capsule by mouth three times a day for 56 days. - omeprazole (PRILOSEC) 20 mg capsule Take 1 capsule by mouth once daily. - cefdinir (OMNICEF) 300 mg capsule Take 1 capsule by mouth every 12 hours. - ondansetron orally disintegrating (ZOFRAN ODT) 4 mg disintegrating tablet Take 4 mg by mouth every 8 hours as needed for nausea/vomiting. - Simethicone 125 mg chewable tablet Take 1 tablet by mouth three times a day as needed (bloating). - cyclobenzaprine (FLEXERIL) 10 mg tablet Take 1 tablet by mouth as needed for muscle spasm. - IBUPROFEN (MOTRIN ORAL) Take by mouth. - Walker (ULTRA-LIGHT ROLLATOR) misc 1 Units as needed. Rollator with seat Problem List As Of Date 07/04/2024 Noted Resolved Unspecified site of sprain and [...] thyroid nodules [E04.2] 04/08/2024 Encounter Status:Closed by KATIE SALCIDO on 07/05/24 Normal [facility] US ABD RIGHT UPPER QUADRANTo n 06-29-2024 US ABD RIGHT UPPER QUADRANT * * *Final Report* * * DATE OF EXAM: Jun 29 2024 8:16AM U 1032 - US ABD RIGHT UPPER QUADRANT / PROCEDURE REASON: RUQ pain * * * * Physician Interpretation * * * * EXAMINATION: RIGHT UPPER QUADRANT ULTRASOUND CLINICAL HISTORY: RUQ pain TECHNIQUE: Sonography of the right upper quadrant was performed. Images were obtained and stored in a permanent archive. MQ: [id number] COMPARISON: 10/01/2009 enhanced A/P CT RESULT: Pancreas: Normal sonographic appearance. Portions obscured: tail Liver: Echotexture: Normal, homogeneous. Echogenicity: Increased Surface contour: Smooth Lesions: None. Other: Main portal vein is patent and demonstrates appropriate hepatopedal blood flow. Biliary: No intrahepatic biliary duct dilation. CBD: 0.5 cm at the hilum. Gallbladder: Normal caliber -Contents: No cholelithiasis -Wall: Normal -Other: No pericholecystic fluid. No sonographic Logan's sign. Right Kidney: No hydronephrosis. Ascites: None. IMPRESSION: Hepatic steatosis. Kiln Repairer: ELVA Transcribe Date/Time: Jul 01 2024 7:01P Dictated by : MICHELLE CAZARES MD This examination was interpreted and the report reviewed and electronically signed by: MICHELLE CAZARES MD on Jul 01 2024 7:02PM EST [id number] [facility] CBC panel Auto (Bld)on 06-23 Erythrocyte distribution width (RBC) [Ratio] 12.6 % Normal 11.5-15.0 [facility] Comment on above: Order Comment: Ajay vega Type: BLOOD SPECIMENOrdering Facility: [facility] Address: [address] [place] [address] Performed By: #### 5 8410-2 ####[facility] LABCLIA [id number] [place] [address] [place] Hematocrit (Bld) [Volume fraction] 43.5 % Normal 36.0-46.0 [facility] Comment on above: Order Comment: Ajay vega Type: BLOOD SPECIMENOrdering Facility: [facility] Address: [address] [place] [address] Performed By: #### 5 8410-2 ####[facility] LABCLIA [id number] [place] [address] [place] Hemoglobin (Bld) [Mass/Vol] 14.6 g/dL Normal 11.5-15.5 [facility] Comment on above: Order Comment: Ajay vega Type: BLOOD SPECIMENOrdering Facility: [facility] Address: [address] [place] [address] Performed By: #### 5 8410-2 ####[facility] LABIA [id number] [place] [address] [place] MCH (RBC) [Entitic mass] 29.9 pg Normal 26.0-34.0 [facility] Comment on above: Order Comment: Speci men Type: BLOOD SPECIMENOrdering Facility: [facility] Address: [address] [place] [address] Performed By: #### 5 8410-2 ####[facility] [id number] [place] [address] [place] MCHC (RBC) [Mass/Vol] 33.6 g/dL Normal 30.5-36.0 [facility] Comment on above: Order Comment: Speci men Type: BLOOD SPECIMENOrdering Facility: [facility] Address: [address] [place] [address] Performed By: #### 5 8410-2 ####[facility] [id number] [place] [address] [place] MCV (RBC) [Entitic vol] 89.0 fL Normal 80.0-100.0 [facility] Comment on above: Order Comment: Speci men Type: BLOOD SPECIMENOrdering Facility: [facility] Address: [address] [place] [address] Performed By: #### 5 8410-2 ####[facility] [id number] [place] [address] [place] Nucleated RBC (Bld) [#/Vol] 10*3/uL Normal <0.01 [facility] Comment on above: Order Comment: Speci men Type: BLOOD SPECIMENOrdering Facility: [facility] Address: [address] [place] [address] Performed By: #### 5 8410-2 ####[facility] LAB[facility] [id number] [place] [address] [place] Platelet mean volume (Bld) [Entitic vol] 10.5 fL Normal 9.0-12.7 [facility] Comment on above: Order Comment: Speci men Type: BLOOD SPECIMENOrdering Facility: [facility] Address: [address] [place] [address] Performed By: #### 5 8410-2 ####[facility] LABCLIA [id number] [place] [address] [place] Platelets (Bld) [#/Vol] 278 10*3/uL Normal 150-400 [facility] Comment on above: Order Comment: Speci men Type: BLOOD SPECIMENOrdering Facility: [facility] Address: [address] [place] [address] Performed By: #### 5 8410-2 ####[facility] LABIA [id number] [place] [address] [place] RBC (Bld) [#/Vol] 4.89 10*6/uL Normal 3.90-5.20 [facility] Comment on above: Order Comment: Speci men Type: BLOOD SPECIMENOrdering Facility: [facility] Address: [address] [place] [address] Performed By: #### 5 8410-2 ####[facility] LABIA [id number] [place] [address] [place] WBC (Bld) [#/Vol] 8.01 10*3/uL Normal 3.70-11.00 [facility] Comment on above: Order Comment: Speci men Type: BLOOD SPECIMENOrdering Facility: [facility] Address: [address] [place] [address] Performed By: #### 5 8410-2 ####[facility] LABIA [id number] [place] [address] [place] CNOVon 06-23-2024 CNOV Office Visit (INTMLN ) KARLENE TOM ([id number]) 1980 F Date Time Provider Department 06/23/24 1:00 PM AIDAN MONTENEGRO During your visit today, we recorded the following information about you: Temperature Pulse Blood pressure Weight 98.1 degrees 68/minute 118/82 125.4 kg Last Period 06/09/24 Aidan Montenegro MD 06/23/2024 1:40 PM Signed Karlene Maldonado Negro is a 43 year old female Chief complaint: Refill Request, Back Pain (Mid back), Nausea, Abdominal Pain, and Diarrhea (X1 week. ) Subjective HPI: Update since last visit: Approved for social security. C/o RUQ pain radiated to back for past 2 week, daily, worsen with meals, last 1-2 hours, improves by avoiding food, treated with ibuprofen with improvement. Also with nausea. Also bloating, constipation earlier in the month treated with laxative, and diarrhea for past week. No blood in stool. Evaluated in [facility], 4 days ago, reports had a CAT scan of abdomen? Negative for kidney stones per patient. Treated with an antibiotic, toradol, zofran. No records available. Thyroid nodules with tenderness followed by endocrinology. History: H/o spina bifida and tethered cord with myelomeningocele repair at and reviion on 1994 and 2016, complicated with neurogenic bowel and bladder. Follow up Neurology, last appointment 01/19/24 H/o neurogenic bladder had botox injection last week. Prescribed ciprofloxacin and reports had mouth and body itching Follow up Urology H/o chronic pain in low back pain and leg pain chronic, treated with pregabalin and tramadol, ketamine infusions. Follow up neurology and neurosurgery. Review of Systems Constitutional: Negative for chills, fatigue, fever and unexpected weight change. No recent history of trauma, surgery, infection or malignancy. HENT: Negative for congestion, rhinorrhea, sore throat, trouble swallowing and voice change. Respiratory: Negative for cough and shortness of breath. Cardiovascular: Negative for chest pain. Gastrointestinal: Positive for abdominal distention, abdominal pain, constipation, diarrhea and nausea. Negative for blood in stool and vomiting. Positive heartburn and reflux. Genitourinary: Negative for pelvic pain. Musculoskeletal: Positive for arthralgias, back pain and myalgias. Psychiatric/Behaviora l: Negative for dysphoric mood and sleep disturbance. The patient is not nervous/anxious. Objective BP 118/82 Pulse 68 Temp 36.7 ?C (98.1 ?F) Wt 125.4 kg (276 lb 7.3 oz) LMP 06/09/2024 (Approximate) SpO2 99% BMI 43.30 kg/m? BMI Readings from Last 3 Encounters: 06/23/24 : 43.30 kg/m? 04/08/24 : 44.47 kg/m? 03/31/24 : 44.39 kg/m? Last Wt 06/23/24 : 125.4 kg (276 lb 7.3 oz) 04/08/24 : 128.8 kg (283 lb 15.2 oz) 03/31/24 : 128.5 kg (283 lb 6.4 oz) Last BP 06/23/24 : 118/82 05/19/24 : 108/89 04/26/24 : 116/63 Physical Exam Constitutional: Appearance: Normal appearance. HENT: [...] Ratio Lab Results Component Value Date TSH 1.370 02/22/2024 TSH 2.590 06/11/2017 TSH 1.55 11/15/2007 FREET4 1.2 02/22/2024 FREET4 1.16 11/21/2004 TPOAB <3.0 02/22/2024 Impression/Recommenda tions Social History Social History Narrative Not on file Karlene Tom is a 43 year old female - Obesity Body mass index is 43.3 kg/m?. - H/o spina bifida and tethered cord with myelomeningocele repair at and reviion on 1994 and 2016, - Chronic pain in low back pain and leg pain chronic, treat (more content not included)... Normal [facility] Comprehensive metabolic 2000 panelon 06-23-2024 Albumin [Mass/Vol] 4.3 g/dL Normal 3.9-4.9 [facility] Comment on above: Order Comment: Speci men Type: BLOOD SPECIMENOrdering Facility: [facility] Address: [address] [place] [address] Performed By: #### 3 040-3, 85822-1 ####[facility] LABCLIA [id number] [place] [address] [place] ALP [Catalytic activity/Vol] 72 U/L Normal 34-123 [facility] Comment on above: Order Comment: Speci men Type: BLOOD SPECIMENOrdering Facility: [facility] Address: [address] [place] [address] Performed By: #### 3 040-3, 23359-1 ####[facility] LABCLIA [id number] [place] [id number] [place] ALT [Catalytic activity/Vol] 25 U/L Normal 7-38 [facility] Comment on above: Order Comment: Speci men Type: BLOOD SPECIMENOrdering Facility: [facility] Address: [address] [place] [address] Performed By: #### 3 -3, 43118-8 ####[facility] LABCLIA [id number] [place] [address] [place] Anion gap [Moles/Vol] 12 mmol/L Normal 8-15 [facility] Comment on above: Order Comment: Speci men Type: BLOOD SPECIMENOrdering Facility: [facility] Address: [address] [place] [address] Performed By: #### 3 040-3, 26399-0 ####[facility] LABCLIA [id number] [place] [address] [place] AST [Catalytic activity/Vol] 21 U/L Normal 13-35 [facility] Comment on above: Order Comment: Speci men Type: BLOOD SPECIMENOrdering Facility: [facility] Address: [address] [place] [address] Performed By: #### 3 040-3, 36179-0 ####[facility] LABCLIA [id number] [place] [id number] [place] Bilirubin [Mass/Vol] 0.4 mg/dL Normal 0.2-1.3 [facility] Comment on above: Order Comment: Speci men Type: BLOOD SPECIMENOrdering Facility: [facility] Address: [address] [place] [address] Performed By: #### 3 040-3, 68537-7 ####[facility] LABCLIA [id number] [place] [id number] [place] Calcium [Mass/Vol] 9.0 mg/dL Normal 8.5-10.2 [facility] Comment on above: Order Comment: Speci men Type: BLOOD SPECIMENOrdering Facility: [facility] Address: [address] [place] [address] Performed By: #### 3 040-3, ####[facility] LABCLIA [id number] [facility] [place] [address] [place] Chloride [Moles/Vol] 106 mmol/L Normal 98-107 [facility] Comment on above: Order Comment: Speci men Type: BLOOD SPECIMENOrdering Facility: [facility] Address: [address] [place] [address] Performed By: #### 3 040-3, ####[facility] LABCLIA [id number] [place] [address] [place] CO2 [Moles/Vol] 21 mmol/L Low 22-30 [facility] Comment on above: Order Comment: Speci men Type: BLOOD SPECIMENOrdering Facility: [facility] Address: [address] [place] [address] Performed By: #### 3 040-3, ####[facility] LABCLIA [id number] [place] [address] [place] Creatinine [Mass/Vol] 0.70 mg/dL Normal 0.58-0.96 [facility] Comment on above: Order Comment: Speci men Type: BLOOD SPECIMENOrdering Facility: [facility] Address: [address] [place] [address] Performed By: #### 3 040-3, ####[facility] LABCLIA [id number] [place] [id number] [place] Creatinine and Glomerular filtration rate.predicted panel (S/P/Bld) 110 mL/min/1.73m??? Normal >=60 [facility] Comment on above: Order Comment: Ajay vega Type: BLOOD SPECIMENOrdering Facility: [facility] Address: [address] [place] [id number] Result Comment: Jennifer mated Glomerular Filtration Rate (eGFR) is calculated using the 2020 CKD-EPI creatinine equation. This equation utilizes serum creatinine, sex, and age as parameters. The creatinine assay has traceable calibration to isotope dilution-mass spectrometry. Refer to KDIGO guidelines for clinical interpretation. In patients with unstable renal function, e.g. those with acute kidney injury, the eGFR may not accurately reflect actual GFR. Performed By: #### 3 040-3, 17555-0 ####[facility] LABIA [id number] [place] [address] [place] Glucose [Mass/Vol] 80 mg/dL Normal 74-99 [facility] Comment on above: Order Comment: Ajay vega Type: BLOOD SPECIMENOrdering Facility: [facility] Address: [address] [place] [address] Result Comment: The [place] Diabetes Association (ADA) provides guidance for cutoff values for fasting glucose and random glucose. The ADA defines fasting as no caloric intake for at least 8 hours. Fasting plasma glucose results between 100 to 125 mg/dL indicate increased risk for diabetes (prediabetes). Fasting plasma glucose results greater than or equal to 126 mg/dL meet the criteria for diagnosis of diabetes. In the absence of unequivocal hyperglycemia, results should be confirmed by repeat testing. In a patient with classic symptoms of hyperglycemia or hyperglycemic crisis, random plasma glucose results greater than or equal to 200 mg/dL meet the criteria for diagnosis of diabetes. Reference: Standards of Medical Care in Diabetes 2016, [place] Diabetes Association. Diabetes Care. 2016.39(Suppl 1). Performed By: #### 3 040-3, 82001-9 ####[facility] [id number] [place] [id number] [place] Potassium [Moles/Vol] 4.2 mmol/L Normal 3.7-5.1 [facility] Comment on above: Order Comment: Ajay vega Type: BLOOD SPECIMENOrdering Facility: [facility] Address: [address] [id number] Performed By: #### 3 040-3, 75209-4 ####[facility] LABCLIA [id number] [address] [address] [place] Protein [Mass/Vol] 6.9 g/dL Normal 6.3-8.0 [facility] Comment on above: Order Comment: Speci men Type: BLOOD SPECIMENOrdering Facility: [facility] Address: [address] [place] [address] Performed By: #### 3 040-3, 78321-2 ####[facility] LABCLIA [id number] [place] [address] [place] Sodium [Moles/Vol] 139 mmol/L Normal 136-144 [facility] Comment on above: Order Comment: Speci men Type: BLOOD SPECIMENOrdering Facility: [facility] Address: [address] [place] [address] Performed By: #### 3 3, ####[facility] LABCLIA [id number] [place] [address] [place] Urea nitrogen [Mass/Vol] 13 mg/dL Normal 7-21 [facility] Comment on above: Order Comment: Speci men Type: BLOOD SPECIMENOrdering Facility: [facility] Address: [address] [place] [address] Performed By: #### 3 040-3, ####[facility] LABCLIA [id number] [place] [id number] [place] Lipase SerPl-cCncon 06-23-20 24 Lipase [Catalytic activity/Vol] 28 U/L Normal 16-61 [facility] Comment on above: Order Comment: Speci men Type: BLOOD SPECIMENOrdering Facility: [facility] Address: [address] [place] [address] Performed By: #### 3 040-3, 83398-7 ####[facility] LABCLIA [id number] [place] [address] [address] [facility] CNOVon 05-19-2024 CNOV Office Visit (NPRC21 ) KARLENE TOM ([id number]) 1980 F Date Time Provider Department 05/19/24 2:00 PM REGINA AGRAWAL NPRC21 During your visit today, we recorded the following information about you: Pulse Respiration Blood pressure 81/minute 16/minute 108/89 Regina Agrawal PA-C 05/19/2024 2:03 PM Signed THE [facility] Comprehensive Pain Recovery Neurological Liberal May 19, 2024 SUBJECTIVE: Karlene Tom presents [...] pain and left posterior thigh and anterior vo pain. States that she has noticed her [...] which included preparing to see the patient, nndx-nl-jlre patient care, completing clinical documentation, obtaining and/or reviewing separately obtained history, performing a medically appropriate examination, counseling and educating the patient/family/caregi diomedes, and ordering medications, tests, or procedures. Regina Agrawal PA-C Important Patient Information: 1. To schedule Pain Recovery appointments or post-injection office visits, please call: [phone] 2. The nursing staff and medical assistants are a part of your pain recovery team and will be handling your phone calls and inquiries. 3. Your study results and treatment plan will be discussed during a follow-up appointment. If you do not have a follow-up appointment and wish to discuss any issues directly with me, please call: [phone] to set-up an appointment. 4. [employer] is best used for refill requests or yes or no questions. Anything more complicated will likel (more content not included)... Normal [facility] KARLENE TOM ([id number]) 1980 F Date Time Provider Department 04/27/24 ELDA DANIELSON OPHTCR During your visit today, we recorded the following information about you: Elva Schultz 04/27/2024 9:34 AM Signed AM spoke w/patient @ 9:31 AND she stated that her pharmacy hasn't received her RX's for the Tobramycin AND Erythromycin. Please send to [facility] in [facility] thanks PT ph [phone] Allergies As of Date: 04/27/2024 Noted Allergy [...] Encounter Status:Closed by ELVA SCHULTZ on 05/04/24 [facility] ANES POSTPROC EVALon 024 ANES POSTPROC EVAL HNO ID: [id number] Author: JUNIOR MOON MD Service: ? Author Type: Anesthesiologist Type: Anesthesia Postprocedure Evaluation Filed: 04/26/2024 17:49 Note Text: POST ANESTHESIA EVALUATION NOTE : 1980 Procedure Summary Date: 04/26/24 Room / Location: [address] [facility] Anesthesia Start: 1435 Anesthesia Stop: 1656 Procedure: REPAIR STRABISMUS 1 HORIZONTAL MUSCLE (Bilateral: Eye) Diagnosis: Monocular exotropia with other noncomitancies, left eye (Monocular exotropia with other noncomitancies, 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]) Surgeons: Elda Danielson MD Responsible Provider: Junior Moon MD Anesthesia Type: general ASA Status: [...] this procedure. Documented by Joanne Yusuf V, CAFETERIA HELPER.DIESEL MECHANIC CONSTRU[employer] 04/26/2024 5:01 PM EDT SIGNATURE: Junior Moon MD PATIENT NAME: Karlene Tom DATE: April 26, 2024 TIME: 5:49 PM CSN: [id number] Normal [facility] ANES PRE-OPon 04-26-2024 ANES PRE-OP HNO ID: [id number] Author: JUNIOR MOON MD Service: ? Author Type: Anesthesiologist [...] to blood products: yes Plan discussed with [employer]CH[employer] and SRNA. Vitals Value Taken Time BP 126/74 04/26/24 1315 Pulse 79 04/26/24 1315 Resp 16 04/26/24 1315 Temp 36 ?C (96.8 ?F) 04/26/24 1315 SpO2 97 % 04/26/24 1315 I have interviewed and examined the patient. I have reviewed the medical record and/or the pre-anesthesia evaluation, pertinent labs, and test results. This contains updated information obtained within 48 hours of Surgery/Procedure. SIGNATURE: Junior Moon MD PATIENT NAME: Karlene Tom DATE: April 26, 2024 TIME: 2:09 PM CSN: [id number] Normal [facility] OPERATIVE NOon 04-26-2024 OPERATIVE NO HNO ID: [id number] Author: ELDA DANIELSON MD Service: Ophthalmology Author Type: Physician Type: Operative Report Filed: 04/26/2024 16:28 Note Text: Karlene Tom LOG ID: [id number] Surgery/Procedure Date: 04/26/2024 Incision/Procedure Start Time: 3:26 PM Incision Close/Procedure End Time: 4:17 PM Surgeon(s)/Procedural ist(s) and Marine Equipment Sales Engineer(s): Surgeon(s) and Role: * Elda Danielson MD [...] and scrubbed for the entire procedure. Normal [facility] 04-25-2024 [facility] Telephone (OTOLBD) KARLENE TOM ([id number]) 1980 F Date Time Provider Department 04/25/24 MARCIOLUCIANA Johana OTOLMARICARMEN During your visit today, we recorded the following information about you: Wicho Oviedo RN 04/25/2024 10:19 AM Signed Appeal letter created - after signature will be faxed to [phone]. Wicho Oviedo RN Allergies As of Date: [...] Status:Closed by WICHO OVIEDO on 04/25/24 Normal [facility] HISTORY PHYSICALon HISTORY PHYSICAL HNO ID: [id number] Author: SALUD FRANCIS PA-C Service: ? Author Type: Physician Marine Equipment Sales Engineer Type: H&P Filed: 04/21/2024 08:36 Note Text: [...] Agrawal PA-C on 03/03/24. Also sees neurology, Kaylene Daley PA-C, last visit 01/19/24. Has topiramate [...] Dave, last visit 03/31/24 and ENT, Dr. Luciana Buckley, last visit 04/05/24. In the process [...] Taylor, et al. 2017 Guidelines of the [place] Thyroid Association for the Diagnosis and Management of Thyroid Disease during and the . Thyroid, 2017:27:3:315-389. 04/21/24: CT neck canceled due to financial reasons at this time and was not completed. No visible tracheal deviation noticed on exam. 7. Morbid obesity with BMI of 40.0-44.9, adult ([facility]) Body mass index is 44.47 kg/m?. 8. [...] with other no (more content not included)... [facility] 04-05-2024 [facility] Office Visit (OTOLBD ) KARLENE TOM ([id number]) 1980 F Date Time Provider Department 04/05/24 3:15 PM LUCIANA BUCKLEY OTOLBD During your visit today, we recorded the following information about you: Luciana Buckley MD 04/05/2024 4:35 PM Signed OTOLARYNGOLOGY-HEAD AND NECK SURGERY CC: Karlene Tom is a 43 year old female who is seen at the request of Kaylene Daley for evaluation of thryoid nodle . My findings and recommendations will be communicated to the referring provider via the shared electronic medical record. Assessment: ASSESSMENT/PLAN: 1. Multiple thyroid nodules - ICD9: 241.1, ICD10: E04.2 At this point benign unclear Will get ct scan neck to sort out Luciana Buckley MD 2. Airway compromise ct scan [...] neck, exte (more content not included)... Normal [facility] 04-05-2024 [facility] Telephone (ENWSTR) KARLENE TOM ([id number]) 1980 F Date Time Provider Department 04/05/24 JAILENE DAVE ENTR During your visit today, we recorded the following information about you: Jaylyn Newman 04/05/2024 12:46 PM Signed Patient is asking for a return call with biopsy results Jailene Dvae MD 04/07/2024 5:40 PM Addendum Please call [...] am here to answer/clarify. Thank you, SRB Maya Lewis MA 04/08/2024 9:04 AM Signed Left detailed [...] Encounter Status:Closed by MAYA LEWIS on 04/08/24 Normal [facility] US Thyroid glandon [facility] Radiology Study observation (narrative) [facility] Radiology Study observation (narrative) [facility] US THYROID/PARATHYROIDon US THYROID/PARATHYROID * * *Final Report* * * DATE OF EXAM: Feb 08 2024 12:37PM [facility] 1048 - US THYROID/PARATHYROID / PROCEDURE REASON: [...] points Echogenicity: Hypoechoic, 2 points (heterogeneous) Shape: Wwwas-yklg-lqdu, 0 points Margin: Smooth, 0 points Echogenic [...] points Echogenicity: Hypoechoic, 2 points (heterogeneous) Shape: Dsdzs-fgin-bkfo, 0 points Margin: Smooth, 0 points Echogenic [...] points Echogenicity: Hypoechoic, 2 points (heterogeneous) Shape: Fpqdl-jjmj-pook, 0 points Margin: Smooth, 0 points Echogenic [...] points Echogenicity: Hypoechoic, 2 points (heterogeneous) Shape: Efqri-bgar-tqhx, 0 points Margin: Smooth, 0 points Echogenic [...] not consider stability or previous biopsy results. Kiln Repairer: ELVA Transcribe Date/Time: Feb 11 2024 7:36A Dictated by : SAM FUNK DO This examination was interpreted and the report reviewed and electronically signed by: SAM FUNK DO on Feb 11 2024 7:41AM EST [id number] N [facility] MR Cervical spine WO contras ton 02-04-2024 [...] normal in appearance. DIVISION OF RADIOLOGY Provider, [facility] - 02/04/2024 * * *Final Report* * [...] be communicated with the ordering provider via [employer] staff message or phone message by Imaging Support Services within 2 business days of report finalization. --END OF FINDING-- (more content not included)... [facility] MR Lumbar spine WO contrasto n 02-04-2024 [...] normal in appearance. DIVISION OF RADIOLOGY Provider, [facility] - 02/04/2024 * * *Final Report* * [...] be communicated with the ordering provider via [employer] staff message or phone message by [facility] [employer] within 2 business days of report finalization. --END OF FINDING-- (more content not included)... [facility] MR Thoracic spine WO contras ton 02-04-2024 [...] normal in appearance. DIVISION OF RADIOLOGY Provider, [facility] - 02/04/2024 * * *Final Report* * [...] be communicated with the ordering provider via [employer] staff message or phone message by [facility] [employer] [facility] within 2 business days of report finalization. --END OF FINDING-- Kiln Repairer: ELVA Transcribe Date/Time: February 03 (more content not included)... [facility] No Panel InformationOrdered By: [facility] Provider on 02-04-2024 Interpretation and review of laboratory results Abnormal [facility] Radiology Result ACTIONABLE Abnormal [facility] Comment on above: This report contains an [...] contact your provider for the next steps. [facility] No Panel Informationon 02-03 IMPRESSION: 1. Stable [...] be communicated with the ordering provider via [employer] staff message or phone message by [facility] [employer] within 2 business days of report finalization. --END OF FINDING-- Kiln Repairer: ELVA Transcribe Date/Time: Feb 04 2024 8:16A Dictated by : RODOLFO DEAL MD This examination was interpreted and the report reviewed and electronically signed by: RODOLFO DEAL MD on Feb 04 2024 8:38AM [facility] DIVISION OF RADIOLOGY No Panel Informationon 02-02 Radiology Study observation (narrative) [facility] URINALYSIS, REFLEX MICROSCOP ICon 01-26-2024 Bacteria LM.HPF (Urine sed) [#/Area] Negative Negative /HPF [facility] Bilirubin Ql (U) Negative Negative [facility] Clarity (Unsp spec) Clear Clear [facility] Color (U) Yellow Yellow [facility] Epithelial cells LM.HPF (Urine sed) [#/Area] Moderate /HPF [facility] Glucose Test strip (U) [Mass/Vol] Negative Negative [facility] Hemoglobin Ql (U) 1+ Abnormal Negative [facility] Hyaline casts (Urine sed) [#/Area] 0 /[LPF] 0 /LPF [facility] Interpretation and review of laboratory results Abnormal [facility] Ketones Ql (U) Negative Negative [facility] Leukocyte esterase Test strip Ql (U) 1+ Abnormal Negative [facility] Nitrite Ql (U) Negative Negative [facility] pH (U) 6.0 [pH] NINF - 8.5 [facility] Protein (U) [Mass/Vol] Negative Negative [facility] RBC LM.HPF (Urine sed) [#/Area] 6-10 /HPF Abnormal 0-2 /HPF [facility] Specific gravity (U) [Rel density] 1.020 1.005 - 1.030 [facility] Urobilinogen Ql (U) 0.2 EU/dL 0.2-1.0 EU/dL [facility] WBC LM.HPF (Urine sed) [#/Area] 11-20 /HPF Abnormal 0-5 /HPF [facility] This test was developed and its performance characteristics determined by [facility]'s Alexis Benitez [facility] Pathology and Laboratory Medicine Liberal ([facility] It has not been cleared or approved by the FDA. [facility] is regulated under CLIA as qualified to perform high-complexity testing. This test is used for clinical purposes. It should not be regarded as investigational or for research. [facility] UA DIP, URINE (POC)on 2023 BILIRUBIN UA (POCT) Negative Negative [facility] CLARITY UA (POCT) Clear [facility] COLOR UA (POCT) Yellow [facility] GLUCOSE UA (POCT) Negative Negative mg/dL [facility] Hemoglobin Ql (U) Moderate Abnormal Negative [facility] Interpretation and review of laboratory results Abnormal [facility] KETONE UA (POCT) Negative Negative mg/dL [facility] LEUKOCYTES UA (POCT) Small Abnormal Negative [facility] NITRITE UA (POCT) Negative Negative [facility] PH UA (POCT) 6.0 4.5 - 8.0 [facility] Protein Ql (U) Negative Negative mg/dL [facility] SPECIFIC GRAVITY UA (POCT) 1.020 1.005 - 1.030 [facility] UROBILINOGEN UA (POCT) 0.2 Normal E.U./dL [facility] Location:[facility], [address] [place] [address], [address] [place] [address] POINT OF CARE [facility] XR LUMBAR 3V AP/LAT/L5-S1on 01-19-2024 XR LUMBAR [...] Minimal lower lumbar spine disc space narrowing. Kiln Repairer: ELVA Transcribe Date/Time: Jan 25 2024 9:18A Dictated by : MONAE BRIAN MD This examination was interpreted and the report reviewed and electronically signed by: MONAE BRIAN MD on Jan 25 2024 9:19AM EST [id number] Normal [facility] HCG ( test) IA.rapi d Ql (U)Ordered By: Gene Chiang on 01-18-2024 HCG ( test) Ql (U) Negative NEGATIVE [facility] Interpretation and review of laboratory results Normal [facility] HCG ( test) IA.rapi d Ql (U)on 01-18-2024 HCG ( test) Ql (U) Negative Normal NEGATIVE [facility] Comment on above: Performed By: #### 8 0384-1 #### AGUSTIN MUKHERJEE ([id number]) [facility] [address] [place] [address] Urine Cultureon 11-20-2023 Bacteria identified Cx Nom (U) ORGANISM: Escherichia coli (O:ESCCOL) [place] Count >100,000 Aerobic DEEP Charge (NMIC56) ---- [...] EXTENDED SPECTRUM BETA-LACTAMASE TFG = THYMIDINE-DEPENDENT STRAIN SALMA = BETA-LACTAMASE POSITIVE IB = INDUCIBLE BETA-LACTAMASE. APPEARS IN PLACE OF 'S' WITH SPECIES KNOWN TO POSSESS INDUCIBLE BETA-LACTAMASES. POTENTIALLY THEY MAY BECOME RESISTANT TO ALL B-LACTAM DRUGS. PERFORMED BY: [place] [address] PATHOLOGIST CURRICULUM ASSISTANT PRINCIPAL MADI MASTERSON M.D. Normal [facility] Comment on above: Performed By: #### C UU #### [facility] [address] [place] [address] Alanine aminotransferase [En zymatic activity/volume] in Serum or PlasmaOrdered By: Eric Curran on 05-18-2023 ALT [Catalytic activity/Vol] 16 U/L 7-52 [facility] Albumin [Mass/volume] in Ser um or Plasma by Bromocresol green (BCG) dye binding methoOrdered By: Eric Curran on 05-18-2023 Albumin BCG dye [Mass/Vol] 4.1 g/dL 3.5-5.7 [facility] Alkaline phosphatase [Enzyma tic activity/volume] in Serum or PlasmaOrdered By: Eric Curran on 05-18-2023 ALP [Catalytic activity/Vol] 69 U/L 34-104 [facility] Aspartate aminotransferase [ Enzymatic activity/volume] in Serum or PlasmaOrdered By: Eric Curran on 05-18-2023 AST [Catalytic activity/Vol] 14 U/L 13-39 [facility] Basophils Auto (Bld) [#/Vol] Ordered By: PROVIDER TEMP on 05-18-2023 Basophils (Bld) [#/Vol] 0.1 10*3/uL 0.0-0.2 [facility] Basophils/100 WBC Auto (Bld) Ordered By: PROVIDER TEMP on 05-18-2023 Basophils/100 WBC (Bld) 0.8 % . [facility] Bilirubin.total [Mass/volume ] in Serum or PlasmaOrdered By: Eric Curran on 05-18-2023 Bilirubin [Mass/Vol] 0.3 mg/dL 0.3-1.0 [facility] CT head/brain wo conon 05-18 CT head/brain wo con [facility] [place] [address] [place] [address] CT Scan Report Signed Patient: Karlene Tom MR#: [id number] : 1980 Acct:[id number] Age/Sex: 42 / F ADM Date: 05/18/23 Loc: ER Room: Type: [facility] ER Attending Dr: Copies to: Eric [...] Rodney Regalado M.D.05/18/2023 8:43 PM Dictation Location: [place] [address] Transcribed By: [facility] 05/18/232042 Dictated By: Rodney Regalado DO 05/18/232041 Signed By: 05/18/232042 Normal [facility] Calcium [Mass/volume] in Ser um or PlasmaOrdered By: Eric Curran on 05-18-2023 Calcium [Mass/Vol] 8.9 mg/dL 8.6-10.3 [facility] Chloride [Moles/volume] in S gisel or PlasmaOrdered By: Eric Curran on 05-18-2023 Chloride [Moles/Vol] 105 mmol/L 98-107 [facility] Complete Blood Count Auto Di ffon 05-18-2023 Basophils (Bld) [#/Vol] 0.1 10*3/uL Normal 0.0-0.2 [facility] Comment on above: Result Comment: PERF ORMED BY: [place] [address] PATHOLOGIST CURRICULUM ASSISTANT PRINCIPAL MADI MASTERSON M.D. Performed By: #### H S TROP, CMP, CK, CBC #### [address] Basophils/100 WBC (Bld) 0.8 % Normal . [facility] Comment on above: Performed By: #### H S TROP, CMP, CK, CBC #### [address] Eosinophils (Bld) [#/Vol] 0.1 10*3/uL Normal 0.0-0.45 [facility] Comment on above: Performed By: #### H S TROP, CMP, CK, CBC #### [address] Eosinophils/100 WBC (Bld) 1.4 % Normal . [facility] Comment on above: Performed By: #### H S TROP, CMP, CK, CBC #### [address] Erythrocyte distribution width (RBC) [Ratio] 12.7 % Normal 11.9-15.3 [facility] Comment on above: Performed By: #### H S TROP, CMP, CK, CBC #### [address] Hematocrit (Bld) [Volume fraction] 41.1 % Normal 34.0-46.4 [facility] Comment on above: Performed By: #### H S TROP, CMP, CK, CBC #### [address] Hemoglobin (Bld) [Mass/Vol] 13.9 g/dL Normal 11.8-15.4 [facility] Comment on above: Performed By: #### H S TROP, CMP, CK, CBC #### [place] [address] [place] Lymphocytes (Bld) [#/Vol] 2.3 10*3/uL Normal 1.00-4.8 [facility] Comment on above: Performed By: #### H S TROP, CMP, CK, CBC #### [address] Lymphocytes/100 WBC (Bld) 23.1 % Normal . [facility] Comment on above: Performed By: #### H S TROP, CMP, CK, CBC #### [address] MCH (RBC) [Entitic mass] 29.4 pg Normal 24.7-34.3 [facility] Comment on above: Performed By: #### H S TROP, CMP, CK, CBC #### [address] MCV (RBC) [Entitic vol] 86.7 fL Normal 80-100 [facility] Comment on above: Performed By: #### H S TROP, CMP, CK, CBC #### [address] Mean Corpuscular HGB Conc 33.9 g/dL Normal 32.0-35.0 [facility] Comment on above: Performed By: #### H S TROP, CMP, CK, CBC #### [address] Monocytes (Bld) [#/Vol] 0.6 10*3/uL Normal 0.0-0.8 [facility] Comment on above: Performed By: #### H S TROP, CMP, CK, CBC #### [address] Monocytes/100 WBC (Bld) 15.48 % Normal 0.00-20.00 [facility] Comment on above: Performed By: #### H S TROP, CMP, CK, CBC #### [address] Monocytes/100 WBC (Bld) 6.0 % Normal . [facility] Comment on above: Performed By: #### H S TROP, CMP, CK, CBC #### [address] Neutrophils (Bld) [#/Vol] 6.7 10*3/uL Normal 1.8-7.7 [facility] Comment on above: Performed By: #### H S TROP, CMP, CK, CBC #### [address] Neutrophils/100 WBC (Bld) 68.7 % Normal . [facility] Comment on above: Performed By: #### H S TROP, CMP, CK, CBC #### [address] NRBC% 0.2 /100{WBC} Normal 0-0.5 [facility] Comment on above: Performed By: #### H S TROP, CMP, CK, CBC #### [address] Platelet mean volume (Bld) [Entitic vol] 8.0 fL Normal 6.3-10.7 [facility] Comment on above: Performed By: #### H S TROP, CMP, CK, CBC #### [address] Platelets (Bld) [#/Vol] 247 10*3/uL Normal 150-450 [facility] Comment on above: Performed By: #### H S TROP, CMP, CK, CBC #### [address] RBC (Bld) [#/Vol] 4.74 10*6/uL Normal 3.60-5.00 [facility] Comment on above: Performed By: #### H S TROP, CMP, CK, CBC #### [address] WBC (Bld) [#/Vol] 9.7 10*3/uL Normal 3.8-11.6 [facility] Comment on above: Performed By: #### H S TROP, CMP, CK, CBC #### [address] Comprehensive Metabolic Pane margo 05-18-2023 Albumin [Mass/Vol] 4.1 g/dL Normal 3.5-5.7 [facility] Comment on above: Performed By: #### H S TROP, CMP, CK, CBC #### [facility] [address] Albumin/Globulin [Mass ratio] 1.4 {ratio} Normal [facility] Comment on above: Performed By: #### H S TROP, CMP, CK, CBC #### [facility] [address] ALP [Catalytic activity/Vol] 69 U/L Normal 34-104 [facility] Comment on above: Performed By: #### H S TROP, CMP, CK, CBC #### [facility] [address] ALT [Catalytic activity/Vol] 16 U/L Normal 7-52 [facility] Comment on above: Performed By: #### H S TROP, CMP, CK, CBC #### [facility] [address] Anion gap [Moles/Vol] 12.3 mmol/L Normal 6.0-15.0 [facility] Comment on above: Performed By: #### H S TROP, CMP, CK, CBC #### [facility] [address] [place] [address] [place] AST [Catalytic activity/Vol] 14 U/L Normal 13-39 [facility] Comment on above: Performed By: #### H S TROP, CMP, CK, CBC #### [facility] [address] [place] [address] [place] Bilirubin [Mass/Vol] 0.3 mg/dL Normal 0.3-1.0 [facility] Comment on above: Performed By: #### H S TROP, CMP, CK, CBC #### [facility] [address] [place] [address] [place] Calcium [Mass/Vol] 8.9 mg/dL Normal 8.6-10.3 [facility] Comment on above: Performed By: #### H S TROP, CMP, CK, CBC #### [facility] [address] [place] [address] [place] Chloride [Moles/Vol] 105 mmol/L Normal 98-107 [facility] Comment on above: Performed By: #### H S TROP, CMP, CK, CBC #### [facility] [address] CO2 [Moles/Vol] 24.8 mmol/L Normal 21.0-31.0 [facility] Comment on above: Performed By: #### H S TROP, CMP, CK, CBC #### [facility] [address] Creatinine [Mass/Vol] 0.76 mg/dL Normal 0.60-1.20 [facility] Comment on above: Performed By: #### H S TROP, CMP, CK, CBC #### [address] Creatinine Clr Calc Pharmacy 131.87 [facility] Comment on above: Result Comment: PERF ORMED BY: [place] [address] PATHOLOGIST CURRICULUM ASSISTANT PRINCIPAL MADI MASTERSON M.D. Performed By: #### H S TROP, CMP, CK, CBC #### [address] GFR/1.73 sq M.predicted MDRD (S/P/Bld) [Vol rate/Area] mL/min/{1.73_m2} [facility] Comment on above: Performed By: #### H S TROP, CMP, CK, CBC #### [facility] [address] [place] [address] [place] Globulin (S) [Mass/Vol] 3.0 g/dL [facility] Comment on above: Performed By: #### H S TROP, CMP, CK, CBC #### [facility] [address] Glucose [Mass/Vol] 84 mg/dL Normal 70-100 [facility] Comment on above: Result Comment: [facility] Glucose Reference Range is dependent on time and content of last meal. Glucose of more than 200 mg/dL in a nonstressed, ambulatory subject supports the diagnosis of Diabetes Mellitus. ADA recommended reference range Performed By: #### H S TROP, CMP, CK, CBC #### [facility] [address] Potassium [Moles/Vol] 4.1 mmol/L Normal 3.5-5.1 [facility] Comment on above: Performed By: #### H S TROP, CMP, CK, CBC #### [facility] [address] Protein [Mass/Vol] 7.1 g/dL Normal 6.4-8.9 [facility] Comment on above: Performed By: #### H S TROP, CMP, CK, CBC #### [address] Sodium [Moles/Vol] 138 mmol/L Normal 136-145 [facility] Comment on above: Performed By: #### H S TROP, CMP, CK, CBC #### [place] [address] [place] Urea nitrogen [Mass/Vol] 13 mg/dL Normal 7-25 [facility] Comment on above: Performed By: #### H S TROP, CMP, CK, CBC #### [place] [address] [place] Creatine Kinaseon 05-18-2023 CK [Catalytic activity/Vol] 37 U/L Normal [facility] Comment on above: Performed By: #### H S TROP, CMP, CK, CBC #### [place] [address] [place] Creatine kinase [Enzymatic a ctivity/volume] in Serum or PlasmaOrdered By: Eric Curran on 05-18-2023 CK [Catalytic activity/Vol] 37 U/L [facility] Creatinine [Mass/volume] in Serum or PlasmaOrdered By: Eric Curran on 05-18-2023 Creatinine [Mass/Vol] 0.76 mg/dL 0.60-1.20 [facility] ECG 12 lead ECGon 05-18-2023 ECG 12 lead ECG [facility] Main [place] [address] [place] [address] Electrocardiograph Report Signed Patient: Karlene Tom MR#: [id number] : 1980 Acct:[id number] Age/Sex: 42 / F ADM Date: 05/18/23 Loc: ER Room: Type: [facility] ER Attending Dr: Ordering Provider: Eric [...] Signed By Eric Curran DO 0553 Normal [facility] Eosinophils Auto (Bld) [#/Vo l]Ordered By: PROVIDER TEMP on 05-18-2023 Eosinophils (Bld) [#/Vol] 0.1 10*3/uL 0.0-0.45 [facility] Eosinophils/100 WBC Auto (Bl d)Ordered By: PROVIDER TEMP on 05-18-2023 Eosinophils/100 WBC (Bld) 1.4 % . [facility] Erythrocyte distribution wid th Auto (RBC) [Ratio]Ordered By: PROVIDER TEMP on 05-18-2023 Erythrocyte distribution width (RBC) [Ratio] 12.7 % 11.9-15.3 [facility] Globulin Calc (S) [Mass/Vol] Ordered By: Eric Curran on 05-18-2023 Globulin (S) [Mass/Vol] 3.0 g/dL [facility] Glucose [Mass/volume] in Ser um or PlasmaOrdered By: Eric Curran on 05-18-2023 Glucose [Mass/Vol] 84 mg/dL 70-100 [facility] Comment on above: ADA recommended refe rence rangeRandom Glucose Reference Range is dependent on time and content of last meal. Glucose of more than 200 mg/dL in a nonstressed, ambulatory subject supports the diagnosis of Diabetes Mellitus. Hematocrit Auto (Bld) [Volum e fraction]Ordered By: PROVIDER TEMP on 05-18-2023 Hematocrit (Bld) [Volume fraction] 41.1 % 34.0-46.4 [facility] Hemoglobin [Mass/volume] in BloodOrdered By: PROVIDER TEMP on 05-18-2023 Hemoglobin (Bld) [Mass/Vol] 13.9 g/dL 11.8-15.4 [facility] Leukocytes [#/volume] correc demond for nucleated erythrocytes in Blood by Automated counOrdered By: PROVIDER TEMP on 05-18-2023 WBC corrected for nucl RBC Auto (Bld) [#/Vol] 9.7 10*3/uL 3.8-11.6 [facility] Lymphocytes Auto (Bld) [#/Vo l]Ordered By: PROVIDER TEMP on 05-18-2023 Lymphocytes (Bld) [#/Vol] 2.3 10*3/uL 1.00-4.8 [facility] Lymphocytes/100 WBC Auto (Bl d)Ordered By: PROVIDER TEMP on 05-18-2023 Lymphocytes/100 WBC (Bld) 23.1 % . [facility] MCH Auto (RBC) [Entitic mass ]Ordered By: PROVIDER TEMP on 05-18-2023 MCH (RBC) [Entitic mass] 29.4 pg 24.7-34.3 [facility] MCHC Auto (RBC) [Mass/Vol]Or dered By: PROVIDER TEMP on 05-18-2023 MCHC (RBC) [Mass/Vol] 33.9 g/dL 32.0-35.0 [facility] MCV Auto (RBC) [Entitic vol] Ordered By: PROVIDER TEMP on 05-18-2023 MCV (RBC) [Entitic vol] 86.7 fL 80-100 [facility] Monocyte distribution width [Entitic volume] in Blood by AutomatedOrdered By: PROVIDER TEMP on 05-18-2023 Monocyte distribution width Auto (Bld) [Entitic vol] 15.48 % 0.00-20.00 [facility] Monocytes Auto (Bld) [#/Vol] Ordered By: PROVIDER TEMP on 05-18-2023 Monocytes (Bld) [#/Vol] 0.6 10*3/uL 0.0-0.8 [facility] Monocytes/100 WBC Auto (Bld) Ordered By: PROVIDER TEMP on 05-18-2023 Monocytes/100 WBC (Bld) 6.0 % . [facility] Neutrophils Auto (Bld) [#/Vo l]Ordered By: PROVIDER TEMP on 05-18-2023 Neutrophils (Bld) [#/Vol] 6.7 10*3/uL 1.8-7.7 [facility] Neutrophils/100 WBC Auto (Bl d)Ordered By: PROVIDER TEMP on 05-18-2023 Neutrophils/100 WBC (Bld) 68.7 % . [facility] No Panel InformationOrdered By: Eric Curran on 05-18-2023 Estimated GFR (CKD-EPI) > 60.0 mL/Min [facility] Creatinine Clearance (Chem 131.87 [facility] Nucleated erythrocytes [Pres ence] in Blood by Automated countOrdered By: PROVIDER TEMP on 05-18-2023 Nucleated RBC Auto Ql (Bld) 0.2 /100{WBC} 0-0.5 [facility] Platelet mean volume Auto (B ld) [Entitic vol]Ordered By: PROVIDER TEMP on 05-18-2023 Platelet mean volume (Bld) [Entitic vol] 8.0 fL 6.3-10.7 [facility] Platelets Auto (Bld) [#/Vol] Ordered By: PROVIDER TEMP on 05-18-2023 Platelets (Bld) [#/Vol] 247 10*3/uL 150-450 [facility] Potassium [Moles/volume] in Serum or PlasmaOrdered By: Eric Curran on 05-18-2023 Potassium [Moles/Vol] 4.1 mmol/L 3.5-5.1 [facility] Protein [Mass/volume] in Ser um or PlasmaOrdered By: Eric Curran on 08-28-2023 Protein [Mass/Vol] 7.1 g/dL 6.4-8.9 [facility] RBC Auto (Bld) [#/Vol]Ordere d By: PROVIDER TEMP on 05-18-2023 RBC (Bld) [#/Vol] 4.74 10*6/uL 3.60-5.00 [facility] Serum or plasma albumin/glob ulin mass ratioOrdered By: Eric Curran on 05-18-2023 Albumin/Globulin [Mass ratio] 1.4 {ratio} [facility] Sodium [Moles/volume] in Ser um or PlasmaOrdered By: Eric Curran on 05-18-2023 Sodium [Moles/Vol] 138 mmol/L 136-145 [facility] Troponin I High Sensitivityo n 05-18-2023 Troponin I High Sensitivity 2.6 pg/mL Normal 0.0-15.0 [facility] Comment on above: Result Comment: PERF ORMED BY: [place] [address] PATHOLOGIST CURRICULUM ASSISTANT PRINCIPAL MADI MASTERSON M.D. Performed By: #### H S TROP, CMP, CK, CBC #### [address] Troponin I.cardiac [Mass/vol ume] in Serum or Plasma by Detection limit <= 0.01 ng/Ordered By: Eric Curran on 05-18-2023 Troponin I.cardiac DL <= 0.01 ng/mL [Mass/Vol] 2.6 pg/mL 0.0-15.0 [facility] Urea nitrogen [Mass/volume] in Serum or PlasmaOrdered By: Eric Curran on 05-18-2023 Urea nitrogen [Mass/Vol] 13 mg/dL 7-25 [facility] WBC Auto (Bld) [#/Vol]Ordere d By: PROVIDER TEMP on 05-18-2023 WBC (Bld) [#/Vol] 9.7 10*3/uL 3.8-11.6 [facility] Anesthesiaon 03-19-2023 Anesthesia Patient: KARLENE TOM [...] Postoperative hydration status: euvolemic. Notes: Normothermia. Normal [facility] Anesthesiaon 03-18-2023 Anesthesia Patient: KARLENE TOM Age: [...] palate, fauces, uvula visible). Assessment and Plan [place] [employer] Anesthesiologists (ASA) physical status classification: [...] voice recognition software. Verbal misinterpretations may occur. [facility] FENTANYL 100mcg INJon 2022 FENTANYL 100mcg [...] Ángela Nieves RN - 03/18/2023 13:44 EDT [facility] Comment on above: Order Comment: maxim [...] Ángela Nieves RN - 03/18/2023 13:44 EDT [facility] Comment on above: Order Comment: maxim [...] Nieves RN - 03/18/2023 13:25 EDT Normal [facility] Comment on above: Order Comment: maxim um 2 mg; Phase I PACU only; For pain level 7-10;potential SOUND ALIKE/LOOK ALIKE-verify med;CAUTION: Hydromorphone IV is 7 times more potent than morphine IV; Inpatient Patient Summaryon 03-18-2023 Inpatient Patient Summary [facility] Discharge Instructions [address] [place] [address] (Patient Copy) Name: NEGRO KARLENE D : 1980 Diagnosis: Allergies: LATEX allergy; Silvadene; Cipro Registration Date: 03/18/23 Current Date Time: 03/18/2023 13:25:07 Address: [address] [place] [address] Phone: [phone] Primary Care Provider: Name: JUANITA SHARMA SR Phone: [phone] Thank you for choosing [facility] for your care. You are very important to us. Our goal is to demonstrate our high quality medical care and provide you with a very good patient experience. You may receive a survey about our service. Please take the time to complete the survey and return it so we can continue to enhance our service. Thank you again for allowing [facility] to care for your medical needs. If you have any questions about your care or follow up information please contact your doctor. Follow-up Instructions With: Address: When: DOMINICK LOPES, Urology [address] [facility], 2nd [place] [address] [facility] (1) In 2 weeks 04/01/2023 If [...] the a (more content not included)... Normal [facility] OR Nursing Record - Main Becky n 03-18-2023 OR Nursing Record - Main OR OR Nursing Record - Main OR Summary Primary Physician: DOMINICK LOPES MD Finalized Date/Time: 03/18/23 13:05:52 Pt. Name: KARLENE TOM Joel KingB./Sex: 1980 Female Med Rec #: [id number] Physician: Financial #: [id number] Pt. Type: A Room/Bed: / Admit/Disch: 03/18/23 08:40:30 - Institution: Transport to OR - Main OR Entry 1 By Faustino Coyle RN, FORD Date/Time Leaving 03/18/23 12:14:00 FABY ACOSTA Prenisha Siderails Up? Yes Report Received From Rosa Faye RN Last Modified By: Faustino Coyle RN 03/18/23 12:19:59 Case Times - Main OR Entry 1 Patient In Room Time 03/18/23 12:15:00 Out Room Time 03/18/23 12:59:00 Anesthesia Facility Times Induction Time 03/18/23 12:16:00 Stop Time 03/18/23 12:57:00 [place] Protocol Yes Completed Surgery Start Time 03/18/23 [...] 1 Entry 2 Entry 3 Case Attendee EVANGELISTA MON, HUGO SÁNCHEZ DO, AMANDA Role Performed Surgeon Primary Anesthesiologist Primary Anesthesia Asst/DIESEL MECHANIC CONSTRUCTION Time In 03/18/23 12:15:00 03/18/23 12:15:00 03/18/23 12:15:00 Time Out 03/18/23 12:59:00 03/18/23 12:59:00 03/18/23 12:59:00 Procedure Cystoscopy(None) Cystoscopy(None) Cystoscopy(None) Last Modified By: Faustino Coyle RN, RN, Faustino Coyle RN, Faustino 03/18/23 12:57:13 03/18/23 12:57:13 03/18/23 12:57:13 Entry 4 Entry 5 Entry 6 Case Attendee Jonna WILEY, Faustino AGRAWAL PA-C, FABY Reilly RN, Elinor Role Performed Box Cutter Primary PA-C Primary Scrub Primary Time In [...] 03/18/23 12:59:00 Procedure Cystoscopy(None) Last Modified By: Jonna WILEY, Faustino 03/18/23 12:57:13 General Comments: KAYLENE JETER MD - FELLOW General Case Data [...] Reason Prior Case Delay Last Modified By: Fautsino Coyle RN 03/18/23 12:26:16 Patient Positioning - Main OR Entry 1 Procedure Cystoscopy(None) Body Position Supine Left Arm Position Tucked and padded at Right Arm Position Extended on padded arm side board Left Leg Position Extended Right Leg Position Extended Feet Uncrossed? Yes Press Points Checked Yes By Jonna WILEY, NGHIA Harmon Positioning Devices SCDs Knee High, Pillow PA-C, CORNELIA HOBBS under Head, Safety AA-C, PEPE Strap, Padded [...] OR Entry (more content not included)... Normal [facility] Operative Reporton 3 Operative Report Date of Operation 03/18/2023 13:03 Indication for Surgery Refractory to medical therapy with urgency incontinence. Patient has counseled regarding the options for therapy. Patient decided to proceed with cystoscopy and Botox injection 200 units *Preoperative Diagnosis Neurogenic bladder with urgency incontinence *Postoperative Diagnosis Same Operative Procedure Cystoscopy and Botox injection 200 units Surgeon(s) DOMINICK LOPES MD (Surgeon Primary) Marine Equipment Sales Engineer FABY AGRAWAL PA-C (DAVE Primary) LILLI SANABRIA PA-C (DAVE Second) Indication for Rolfer Given the inherent complexity of this surgery, a second surgeon or a surgically skilled physician assistant quality manager was necessary for the successful completion of this entire operative procedure. The surgical instrument technician was present for the entire operative procedure and participated in all aspects of patient care This included transporting the patient to the operating room and entering room with the patient, assisting with preoperative positioning, first assisting throughout the entire surgical procedure by functioning as a second assistant quality manager surgeon, assisting with surgical closure, and finally accompanying the patient to recovery. Anesthesia MAC HUGO ERAZO DO (Epic Cadence Analyst) PEPE MURRAY (Provider) *Estimated Blood Loss None [...] and draped in usual fashion. The 21 Hungarian cystoscope was atraumatically introduced into the bladder. [...] good condition she tolerated procedure well. Normal [facility] Research Kennel Supervisor Details- Texton 03-18-2023 Research Kennel Supervisor Details- Text Research Kennel Supervisor Details Entered On: 03/18/2023 8:37 EDT Performed On: 03/18/2023 9:30 EDT by Rosa Faye RN Research Kennel Supervisor Details Research Kennel Supervisor Details Review Status : Reviewed, no changes [...] Faye RN - 03/18/2023 8:36 EDT Normal [facility] Outpatient Admission Data- T exton 03-18-2023 Outpatient [...] Rosa Faye RN - 03/18/2023 9:30 EDT [place] Coma Eye Opening Response Nikita : Spontaneously Best Verbal Response Nikita : Oriented Best Motor Response Willits : Obeys simple commands Nikita Coma Score [...] Faye RN - 03/18/2023 9:30 EDT Normal [facility] PACU Phase I - Main ORon PACU Phase I - Main OR PACU Phase I - Main OR Summary Primary Physician: DOMINICK LOPES MD Finalized Date/Time: 03/18/23 13:57:01 Pt. Name: KARLENE TOM/Sex: 1980 Female Med Rec #: [id number] Physician: Financial #: [id number] Pt. Type: A Room/Bed: / Admit/Disch: 03/18/23 08:40:30 - Institution: PACU I - Case Times - Main OR Entry 1 In PACU I 03/18/23 13:00:00 Ready for Transfer 03/18/23 13:52:00 Last Modified By: Ángela Nieves RN 03/18/23 13:56:29 Finalized By: Ángela Nieves RN Document Signatures Signed By: Ángela Nieves RN 03/18/23 13:57 Normal [facility] PACU Phase II - Main ORon PACU Phase II - Main OR PACU Phase II - Main OR Summary Primary Physician: DOMINICK LOPES MD Finalized Date/Time: 03/18/23 14:05:49 Pt. Name: KARLENE TOM/Sex: 1980 Female Med Rec #: [id number] Physician: Financial #: [id number] Pt. Type: A Room/Bed: / Admit/Disch: 03/18/23 08:40:30 - Institution: PACU II - Case Times - Main OR Entry 1 In PACU II 03/18/23 13:52:00 Ready for PACU II n/a Discharge Discharge from PACU 03/18/23 14:05:00 II Last Modified By: Ángela Salazar RN 03/18/23 14:05:39 Finalized By: Ángela Salazar RN Document Signatures Signed By: Ángela Salazar RN 03/18/23 14:05 Normal [facility] Preop - Main ORon 03-18-2023 Preop - Main OR Preop - Main OR Summary Primary Physician: DOMINICK LOPES MD Finalized Date/Time: 03/18/23 12:29:01 Pt. Name: KARLENE TOM D.O.B./Sex: 1980 Female Med Rec #: [id number] Physician: Financial #: [id number] Pt. Type: A Room/Bed: / Admit/Disch: 03/18/23 [...] 09:26 Rosa Faye RN 03/18/23 12:29 Normal [facility] U TESTon 3 Test, U Negative Normal [facility] Comment on above: Order Comment: Femal es: 10 and older Performed By: #### 1 [id number] ####[facility] [id number] [place] [address] Medical Director: Jhon Landon MD U Preg Internal QC Present Normal [facility] Comment on above: Order Comment: Femal es: 10 and older Performed By: #### 1 [id number] ####[facility] [id number] [place] [address] Medical Director: Jhon Landon MD [place] Protocol/Pre-Proc TimeOut-Texton 03-18-2023 [place] Protocol/Pre-Proc TimeOut-Text [facility] Protocol Entered On: 03/18/2023 8:37 EDT Performed [...] Exempt From Marking Site : PERINEUM Laterality [place] Protocol : N/A Site Verification Completed : [...] Coyle RN - 03/18/2023 13:04 EDT Normal [facility] Preadmission Testing Progres s Noteon 03-09-2023 Preadmission Testing Progress Note Positive urine culture results with susceptibility report faxed to Dr. Lopes's office for review. Spoke with Dinora in Dr. Lopes's office to notify. Normal [facility] C URINEon 03-08-2023 C URINE [facility] Services [address] [place] [id number] Name: KARLENE TOM : 1980 Admitting Provider: Gender Female Financial [phone] : Number: [facility] n: Admit Date: Discharge Microbiology Date: PROCEDURE: [...] KARLENE TOM Print 03/08/2023 06:32 EDT Date/Time: [facility] [address] [place] [address] Name: KARLENE TOM : 1980 Admitting Provider: Gender Female Financial [id number] : Number: [facility] n: Admit Date: Discharge Microbiology Date: SUSCEPTIBILITY RESULTS Klebsiella pneumoniae ssp pneumoniae Antibiotic DEEP Interp Ciprofloxacin Susceptible Gentamicin Susceptible Nitrofurantoin Intermediate Piperacillin/Tazobact am Susceptible Trimethoprim/Sulfamet hoxazole Susceptible ____ L=Low, H= High, *= Abnormal, C=Critical, f=Footnote, c=Corrected, i=Interp Data Name: KARLENE TOM Print 03/08/2023 06:32 EDT Date/Time: Normal [facility] Comment on above: Performed By: #### 1 [id number] ####[facility] [id number] [place] [address] Medical Director: Jhon Landon MD Preadmission Testing Yeniferes s Noteon 03-06-2023 Preadmission Testing Progress Note [...] X ] Advanced Directive (IF APPLICABLE) Normal [facility] BASIC METABOLIC PANELon 09-21 Anion gap [Moles/Vol] 6 mmol/L Low 10 - 20 [facility] Comment on above: Performed By: #### B MP #### [address] [address] Calcium [Mass/Vol] 8.8 mg/dL Normal 8.6 - 10.3 [facility] Comment on above: Performed By: #### B MP #### [address] [address] Chloride [Moles/Vol] 107 mmol/L Normal 98 - 107 [facility] Comment on above: Performed By: #### B MP #### [address] [address] Creatinine [Mass/Vol] 0.69 mg/dL Normal 0.50 - 1.05 [facility] Comment on above: Performed By: #### B MP #### [address] [address] eGFR FEMALE >90 Normal >90 [facility] Comment on above: Result Comment: CALC ULATIONS OF ESTIMATED GFR ARE PERFORMED USING THE 2020 CKD-EPI STUDY REFIT EQUATION WITHOUT THE RACE VARIABLE FOR THE IDMS-TRACEABLE CREATININE METHODS. https://jasn.asnjournals.org/content//ASN.605480 6138 Performed By: #### B MP #### [address] [address] Glucose [Mass/Vol] 100 mg/dL High 74 - 99 [facility] Comment on above: Performed By: #### B MP #### [address] [place] [address] HCO3 (Bld) [Moles/Vol] 30 mmol/L Normal 21 - 32 [facility] Comment on above: Performed By: #### B MP #### [address] [place] [address] Potassium [Moles/Vol] 4.0 mmol/L Normal 3.5 - 5.3 [facility] Comment on above: Performed By: #### B MP #### [address] [place] [address] Sodium [Moles/Vol] 139 mmol/L Normal 136 - 145 [facility] Comment on above: Performed By: #### B MP #### [address] [place] [address] Urea nitrogen [Mass/Vol] 13 mg/dL Normal 6 - 23 [facility] Comment on above: Performed By: #### B MP #### [address] [place] [address] CBCon 10-06-2022 Erythrocyte distribution width (RBC) [Ratio] 12.5 % Normal 11.5 - 14.5 [facility] Comment on above: Performed By: #### C BC #### [address] [place] [address] Hematocrit (Bld) [Volume fraction] 38.8 % Normal 36.0 - 46.0 [facility] Comment on above: Performed By: #### C BC #### [address] [place] [address] Hemoglobin (Bld) [Mass/Vol] 12.9 g/dL Normal 12.0 - 16.0 [facility] Comment on above: Performed By: #### C BC #### [address] [place] [address] MCHC (RBC) [Mass/Vol] 33.2 g/dL Normal 32.0 - 36.0 [facility] Comment on above: Performed By: #### C BC #### [address] [place] [address] MCV (RBC) [Entitic vol] 88 fL Normal 80 - 100 [facility] Comment on above: Performed By: #### C BC #### [address] [address] NUCLEATED RBC 0.0 /100 WBC Normal 0.0 - 0.0 [facility] Comment on above: Performed By: #### C BC #### [address] [address] Platelets (Bld) [#/Vol] 233 10*3/uL Normal 150 - 450 [facility] Comment on above: Performed By: #### C BC #### [address] [address] RBC 4.40 x10E12/L Normal 4.00 - 5.20 [facility] Comment on above: Performed By: #### C BC #### [address] [address] WBC (Bld) [#/Vol] 6.6 10*3/uL Normal 4.4 - 11.3 [facility] Comment on above: Performed By: #### C BC #### [address] [address] HCG,URINEon 10-06-2022 Beta HCG ( test) Ql (U) Negative Normal Negative [facility] Comment on above: Performed By: #### H CGU #### [address] [address] Order Reconciliationon 10-06 Order Reconciliation Page 1 [...] be shared with your follow-up providers (doctor, ultrasound spec, physical therapist, etc.). Follow Up with Dr Lopes's office in 2-4 Weeks Macrobid 100 mg oral capsule 1 cap(s) orally 2 times a day May not drive or operate motor vehicles for 24 hours. May shower Post Proced (more content not included)... Normal [facility] Patient Profile - Preop v3on 10-06-2022 Patient Profile - Preop v3 Patient Profile - Preop: Initial Info: Patient DemographicsName: KARLENE TOM Date: 1980 Address: [address] [place] [address] Date/Time [id number] 06:29 Primary Phone [phone] How to be Addressedkathryn Spoken Language PreferredEnglish Source of Informationpatient Stated Reason for Admissioncysto with botox Primary Contact Name and NumberAlbert [phone] Medications Brought to [facility]: Weight in kg125 kilogram(s) Weight in vpp479.5 pound(s) Weight Methodstated Height in feet5 feet [...] Living Arrangementshouse Resource/Environmenta l Concernsnone Anticipated Transition [place] Services Anticipated at Transitionnone Tobacco Use: Tobacco Useyes Tobacco Typecigarettes Last Tobacco [id number] Number of Packs per Day1 Additional Information: [...] Surgery > 30 days 06-Oct-2022 05:03 Normal [facility] CT LSPINE W CONon [...] by: DESIRAE KATZ Date: 2022-08-26 00:33 Normal [facility] ER URINE PROFILEon 2 Bilirubin Ql (U) Negative Normal NEGATIVE [facility] Comment on above: Performed By: #### U MICRO, ERUR #### [facility] [address] [place] [address] Dr. Mirtha Jimenez Clarity (U) CLEAR Normal CLEAR [facility] Comment on above: Performed By: #### U MICRO, ERUR #### [facility] [address] [place] [address] Dr. Mirtha Jimenez Color (U) LT. YELLOW Normal YELLOW [facility] Comment on above: Performed By: #### U MICRO, ERUR #### [facility] [address] [place] [address] Dr. Mirtha LUNA A micrscopic examination will be performed if indicated. Normal [facility] Comment on above: Performed By: #### U MICRO, ERUR #### [facility] [address] [place] [address] Dr. Mirtha Jimenez Glucose Ql (U) Negative Normal NEGATIVE [place] Comment on above: Performed By: #### U MICRO, ERUR #### [facility] [address] [place] [address] Dr. Mirtha Jimenez Hemoglobin Ql (U) TRACE-INTACT Abnormal NEGATIVE [facility] Comment on above: Performed By: #### U MICRO, ERUR #### [facility] [address] [place] [address] Dr. Mirtha Jimenez Ketones Ql (U) Negative Normal NEGATIVE [place] Comment on above: Performed By: #### U MICRO, ERUR #### [facility] [address] [place] [address] Dr. Mirtha Jimenez LEUKOCYTES Negative Normal NEGATIVE [facility] Comment on above: Performed By: #### U MICRO, ERUR #### [facility] [address] [place] [address] Dr. Mirtha Jimenez Nitrite Ql (U) Negative Normal NEGATIVE [place] Comment on above: Performed By: #### U MICRO, ERUR #### [facility] [address] [place] [address] Dr. Mirtha Jimenez pH (U) 7.0 [pH] Normal 5-9 [facility] Comment on above: Performed By: #### U MICRO, ERUR #### [facility] [address] [place] [address] Dr. Mirtha Jimenez SPEC GRAVITY 1.020 Normal 1.005-<=1.02 5 [facility] Comment on above: Performed By: #### U MICRO, ERUR #### [facility] [address] [place] [address] Dr. Mirtha Jimenez UA PROTEIN Negative Normal NEGATIVE/ TRACE [facility] Comment on above: Performed By: #### U MICRO, ERUR #### [facility] [address] [place] [address] Dr. Mirtha Jimenez UR MICRO IND INDICATED Normal [facility] Comment on above: Performed By: #### U MICRO, ERUR #### [facility] [address] [place] [address] Dr. Mirtha Jimenez Urobilinogen Qn (U) 0.2 {John'U}/dL Normal 0.2 - 1. 0 [facility] Comment on above: Performed By: #### U MICRO, ERUR #### [facility] [address] [place] [address] Dr. Mirtha Jimenez LACTATE/LACTIC ACIDon 2021 Lactate [Moles/Vol] 0.9 mmol/L Normal 0.4-1.9 [facility] Comment on above: Performed By: #### L ACT #### [facility] [address] [place] [address] Dr. Mirtha Jimenez URINE MICROSCOPIC ONLYon BACTERIA TRACE Abnormal NONE SEEN [facility] Comment on above: Performed By: #### D DIM #### [facility] [address] [place] [address] Dr. Mirtha Jimenez Bacteria identified Cx Nom (U) NOT INDICATED Normal [facility] Comment on above: Performed By: #### D DIM #### [facility] [address] [place] [address] Dr. Mirtha Jimenez CAST NONE SEEN Normal NONE SEEN [facility] Comment on above: Performed By: #### D DIM #### [facility] [address] [place] [address] Dr. Mirtha Jimenez Crystals LM Nom (Urine sed) NONE SEEN Normal NONE SEEN [facility] Comment on above: Performed By: #### D DIM #### [facility] [address] [place] [address] Dr. Mirtha Jimenez Epithelial cells LM Ql (Urine sed) FEW Abnormal NONE SEEN /RARE [facility] Comment on above: Performed By: #### D DIM #### [facility] [address] [place] [address] Dr. Mirtha Jimenez MUCOUS NONE SEEN Normal NONE SEEN [facility] Comment on above: Performed By: #### D DIM #### [facility] [address] [place] [address] Dr. Mirtha Jimenez RBC 2-5 Abnormal 0-2 [facility] Comment on above: Performed By: #### D DIM #### [facility] [address] [place] [address] Dr. Mirtha Jimenez WBC NONE SEEN Normal NONE SEEN [facility] Comment on above: Performed By: #### D DIM #### [facility] [address] [place] [address] Dr. Mirtha Jimenez BNPon 08-25-2022 Natriuretic peptide B (Bld) [Mass/Vol] 189.0 pg/mL Normal <=450.0 [facility] Comment on above: Performed By: #### C MP, HSTROPN, BNP #### [facility] [address] [place] [address] Dr. Mirtha Jimenez CBC AUTO DIFFon 08-25-2022 BASO # 0.0 103/ul Normal 0.0-0.1 [facility] Comment on above: Performed By: #### C BC #### [facility] [address] [address] [address] Mirtha Jimenez Basophils/100 WBC (Bld) 0.4 % Normal 0.2-2.0 [facility] Comment on above: Performed By: #### C BC #### [facility] [address] [place] [address] Dr. Mirtha Jimenez EO # 0.1 103/ul Normal 0.0-0.7 [facility] Comment on above: Performed By: #### C BC #### [facility] [address] [place] [address] Dr. Mirtha Jimenez Eosinophils/100 WBC (Bld) 1.4 % Normal 0.9-7.0 [facility] Comment on above: Performed By: #### C BC #### [facility] [address] [place] [address] Dr. Mirtha Jimenez Erythrocyte distribution width (RBC) [Ratio] 12.6 % Normal 11.0-15.0 [facility] Comment on above: Performed By: #### C BC #### [facility] [address] [place] [address] Dr. Mritha Jimenez Hematocrit (Bld) [Volume fraction] 37.9 % Normal 36.0-48.0 [facility] Comment on above: Performed By: #### C BC #### [facility] [address] [place] [address] Dr. Mirtha Jimenez Hemoglobin (Bld) [Mass/Vol] 12.8 g/dL Normal 12.0-16.0 [facility] Comment on above: Performed By: #### C BC #### [facility] [address] [place] [address] Dr. Mirtha Jimenez IG # 0.07 10e3/ul Critically high 0.00-0.03 [facility] Comment on above: Performed By: #### C BC #### [facility] [address] [place] [address] Dr. Mirtha Jimenez IG % 1.0 % Critically high 0.0-0.5 [facility] Comment on above: Performed By: #### C BC #### [facility] [address] [place] [address] Dr. Mirtha Jimenez LYMPH # 0.4 103/ul Critically low 1.2-3.8 [facility] Comment on above: Performed By: #### C BC #### [facility] [address] [place] [address] Dr. Mirtha Jimenez Lymphocytes/100 WBC (Bld) 5.4 % Critically low 20.5-60.0 [facility] Comment on above: Performed By: #### C BC #### [facility] [address] [place] [address] Dr. Mirtha Jimenez MANUAL DIFF REQ NO Normal [facility] Comment on above: Performed By: #### C BC #### [facility] [address] [place] [address] Dr. Mirtha Jimenez MCH (RBC) [Entitic mass] 29.4 pg Normal 26.7-34.0 [facility] Comment on above: Performed By: #### C BC #### [facility] [address] [place] [address] Dr. Mirtha Jimenez MCHC (RBC) [Mass/Vol] 33.8 g/dL Normal 29.9-35.2 [facility] Comment on above: Performed By: #### C BC #### [facility] [address] [place] [address] Dr. Mirtha Jimenez MCV (RBC) [Entitic vol] 86.9 fL Normal 81.0-99.0 [facility] Comment on above: Performed By: #### C BC #### [facility] [address] [place] [address] Dr. Mirtha Jimenez MONO # 0.4 103/ul Normal 0.3-0.8 [facility] Comment on above: Performed By: #### C BC #### [facility] [address] [place] [address] Dr. Mirtha Jimenez Monocytes/100 WBC (Bld) 6.0 % Normal 1.7-12.0 [facility] Comment on above: Performed By: #### C BC #### [facility] [address] [place] [address] Dr. Mirtha Jimenez NEUT # 6.2 103/ul Normal 1.4-6.5 [facility] Comment on above: Performed By: #### C BC #### [facility] [address] [place] [address] Dr. Mirtha Jimenez Neutrophils/100 WBC (Bld) 85.8 % Critically high 43.0-75.0 [facility] Comment on above: Performed By: #### C BC #### [facility] [address] [place] [address] Dr. Mirtha Jimenez Platelet mean volume (Bld) [Entitic vol] 10.1 fL Normal 9.5-13.5 [facility] Comment on above: Performed By: #### C BC #### [facility] [address] [place] [address] Dr. Mirtha Jimenez PLT 190 103/ul Normal 150-450 [facility] Comment on above: Performed By: #### C BC #### [facility] [address] [place] [address] Dr. Mirtha Jimenez RBC 4.36 106/ul Normal 4.20-5.40 [facility] Comment on above: Performed By: #### C BC #### [facility] [address] [place] [address] Dr. Mirtha Jimenez WBC 7.2 103/ul Normal 4.0-11.0 [facility] Comment on above: Performed By: #### C BC #### [facility] [address] [place] [address] Dr. Mirtha Jimenez CULTURE BLOODon 08-25-2022 Microscopic examination of blood, culture Culture Observations: NO GROWTH AT 5 DAYS. Isolate 1 BC_BA_NA Normal [facility] Comment on above: Performed By: #### D DIM #### [facility] [address] [place] [address] Dr. Mirtha Jimenez Microscopic examination of blood, culture Culture Observations: NO GROWTH AT 5 DAYS. Normal [facility] Comment on above: Performed By: #### B LDCX1 #### [facility] [address] [place] [address] Dr. Mirtha Jimenez D-DIMERon 08-25-2022 D-DIMER 0.46 mg/L FEU Normal <=0.59 [facility] Comment on above: Performed By: #### D DIM #### [facility] [address] [place] [address] Dr. Mirtha Jimenez D-DIMER COMMENTS SEE BELOW Normal [facility] Comment on above: Result Comment: Incr [...] hospitalization. Performed By: #### D DIM #### [facility] [address] [place] [address] Dr. Mirtha Jimenez LACTATE/LACTIC ACIDon 2021 Lactate [Moles/Vol] 1.4 mmol/L Normal 0.4-1.9 [facility] Comment on above: Performed By: #### D DIM #### [facility] [address] [place] [address] Dr. Mirtha Jimenez PROF 14(COMP METB)on 022 Albumin [Mass/Vol] 3.3 g/dL Critically low 3.4-5.0 [facility] Comment on above: Performed By: #### C MP, HSTROPN, BNP #### [facility] [address] [place], [place] [id number] Dr. Mirtha Jimenez Albumin/Globulin [Mass ratio] 0.9 {ratio} Normal [facility] Comment on above: Performed By: #### C MP, HSTROPN, BNP #### [facility] [address] [address] [address] Mirtha Jimenez ALP [Catalytic activity/Vol] 75 U/L Normal 46-116 [facility] Comment on above: Performed By: #### C MP, HSTROPN, BNP #### [facility] [address] [place] [address] Dr. Mirtha Jimenez ALT [Catalytic activity/Vol] 20 U/L Normal 14-59 [facility] Comment on above: Performed By: #### C MP, HSTROPN, BNP #### [facility] [address] [place] [address] Dr. Mirtha Jimenez Anion gap [Moles/Vol] 9.7 mmol/L Normal [facility] Comment on above: Performed By: #### C MP, HSTROPN, BNP #### [facility] [address] [place] [address] Dr. Mirtha Jimenez AST [Catalytic activity/Vol] 18 U/L Normal 15-37 [facility] Comment on above: Performed By: #### C MP, HSTROPN, BNP #### [facility] [address] [place] [address] Dr. Mirtha Jimenez Bilirubin [Mass/Vol] 0.2 mg/dL Normal 0.2-1.0 [facility] Comment on above: Performed By: #### C MP, HSTROPN, BNP #### [facility] [address] [place] [address] Dr. Mirtha Jimenez Calcium [Mass/Vol] 8.6 mg/dL Normal 8.5-10.1 [facility] Comment on above: Performed By: #### C MP, HSTROPN, BNP #### [facility] [address] [place] [address] Dr. Mirtha Jimenez Chloride [Moles/Vol] 101 mmol/L Normal 98-107 [facility] Comment on above: Performed By: #### C MP, HSTROPN, BNP #### [facility] [address] [place] [address] Dr. Mirtha Jimenez CO2 [Moles/Vol] 27.6 mmol/L Normal 21.0-32.0 [facility] Comment on above: Performed By: #### C MP, HSTROPN, BNP #### [facility] [address] [place] [address] Dr. Mirtha Jimenez Creatinine [Mass/Vol] 0.68 mg/dL Normal 0.55-1.02 [facility] Comment on above: Performed By: #### C MP, HSTROPN, BNP #### [facility] [address] [place] [address] Dr. Mirtha Jimenez EGFR-AF RWANDAN >60 Normal >=60 [facility] Comment on above: Performed By: #### C MP, HSTROPN, BNP #### [facility] [address] [place] [address] Dr. Mirtha Jimenez EGFR-NON AF RWANDAN >60 Normal >=60 [facility] Comment on above: Performed By: #### C MP, HSTROPN, BNP #### [facility] [address] [place] [address] Dr. Mirtha Jimenez Globulin (S) [Mass/Vol] 3.8 g/dL Normal [facility] Comment on above: Performed By: #### C MP, HSTROPN, BNP #### [facility] [address] [place] [address] Dr. Mirtha Jimenez Glucose [Mass/Vol] 82 mg/dL Normal 74-106 [facility] Comment on above: Performed By: #### C MP, HSTROPN, BNP #### [facility] [address] [place] [address] Dr. Mirtha Jimenez Potassium [Moles/Vol] 4.3 mmol/L Normal 3.5-5.1 [facility] Comment on above: Performed By: #### C MP, HSTROPN, BNP #### [facility] [address] [place] [address] Dr. Mirtha Jimenez Protein [Mass/Vol] 7.1 g/dL Normal 6.4-8.2 [facility] Comment on above: Performed By: #### C MP, HSTROPN, BNP #### [facility] [address] [place] [address] Dr. Mirtha Jimenez Sodium [Moles/Vol] 134 mmol/L Critically low 136-145 [facility] Comment on above: Performed By: #### C MP, HSTROPN, BNP #### [facility] [address] [place] [address] Dr. Mirtha Jimenez Urea nitrogen [Mass/Vol] 13.0 mg/dL Normal 7.0-18.0 [facility] Comment on above: Performed By: #### C MP, HSTROPN, BNP #### [facility] [address] [place] [address] Dr. Mirtha Jimenez Urea nitrogen/Creatinine [Mass ratio] 19.1 mg/mg Normal [facility] Comment on above: Performed By: #### C MP, HSTROPN, BNP #### [facility] [address] [place] [address] Dr. Mirtha Jimenez RESPIRATORY PANEL PLUSon Adenovirus Not detected Normal NOT DETECTED [facility] Comment on above: Performed By: #### D DIM #### [facility] [address] [place] [address] Dr. Mirtha Navarro. Parapertusis Not detected Normal NOT DETECTED [facility] Comment on above: Performed By: #### D DIM #### [facility] [address] [place] [address] Dr. Mirtha Navarro. Pertussis Not detected Normal NOT DETECTED [facility] Comment on above: Performed By: #### D DIM #### [facility] [address] [place] [address] Dr. Mirtha Jimenez Chlamydia Pneumoniae Not detected Normal NOT DETECTED [facility] Comment on above: Performed By: #### D DIM #### [facility] [address] [place] [address] Dr. Mirtha Jimenez Coronavirus 229E Not detected Normal NOT DETECTED [facility] Comment on above: Performed By: #### D DIM #### [facility] [address] [place] [address] Dr. Mirtha Jimenez Coronavirus HKU1 Not detected Normal NOT DETECTED [facility] Comment on above: Performed By: #### D DIM #### [facility] [address] [address] [address] Mirtha Jimenez Coronavirus NL63 Not detected Normal NOT DETECTED [facility] Comment on above: Performed By: #### D DIM #### [facility] [address] [address] [address] Mirtha Jimenez Coronavirus OC43 Not detected Normal NOT DETECTED [facility] Comment on above: Performed By: #### D DIM #### [facility] [address] [address] [address] Mirtha Jimenez Influenza A H1 2009 Not detected Normal NOT DETECTED [facility] Comment on above: Performed By: #### D DIM #### [facility] [address] [address] [address] Mirtha Jimenez Influenza A H3 Not detected Normal NOT DETECTED [facility] Comment on above: Performed By: #### D DIM #### [facility] [address] [address] [address] Mirtha Jimenez Influenza B Not detected Normal NOT DETECTED [facility] Comment on above: Performed By: #### D DIM #### [facility] [address] [address] [address] Mirtha Jimenez Metapneumovirus Not detected Normal NOT DETECTED [facility] Comment on above: Performed By: #### D DIM #### [facility] [address] [address] [address] Mirtha Jimenez Mycoplas. Pneumoniae Not detected Normal NOT DETECTED [facility] Comment on above: Performed By: #### D DIM #### [facility] [address] [address] [address] Mirtha Jimenez Parainfluenza 1 Not detected Normal NOT DETECTED [facility] Comment on above: Performed By: #### D DIM #### [facility] [address] [address] [address] Mirtha Jimenez Parainfluenza 2 Not detected Normal NOT DETECTED [facility] Comment on above: Performed By: #### D DIM #### [facility] [address] [address] [address] Mirtha Jimenez Parainfluenza 3 Not detected Normal NOT DETECTED [facility] Comment on above: Performed By: #### D DIM #### [facility] [address] [place] [address] Dr. Mirtha Jimenez Parainfluenza 4 Not detected Normal NOT DETECTED [facility] Comment on above: Performed By: #### D DIM #### [facility] [address] [place] [address] Dr. Mirtha Jimenez Rhino/Enterovirus Not detected Normal NOT DETECTED [facility] Comment on above: Performed By: #### D DIM #### [facility] [address] [place] [address] Dr. Mirtha Jimenez RP2 Header 1 RESPIRATORY PANEL: VIRUSES Normal [facility] Comment on above: Performed By: #### D DIM #### [facility] [address] [place] [address] Dr. Mirtha Jimenez RP2 Header 2 RESPIRATORY PANEL: BACTERIA Normal [facility] Comment on above: Performed By: #### D DIM #### [facility] [address] [place] [address] Dr. Mirtha Jimenez RSV Not detected Normal NOT DETECTED [facility] Comment on above: Performed By: #### D DIM #### [facility] [address] [place] [address] Dr. Mirtha Jimenez SARS-CoV-2 (COVID-19) RNA KAREN+probe Ql (Unsp spec) Detected Critically abnormal NOT DETECTED [facility] Comment on above: Performed By: #### D DIM #### [facility] Laboratory [address] [place] [address] Dr. Mirtha Jimenez TROPONIN, HIGH SENSITIVITYon 08-25-2022 HSTROP 5.7 pg/mL Normal 4.0-51.3 [facility] Comment on above: Result Comment: CUT- OFF POINTS HAVE BEEN ESTABLISHED BASED ON THE FOURTH UNIVERSAL DEFINITIONS OF MYOCARDIAL INFARCTION. THE UPPER REFERENCE LIMIT (URL) OF TROPONIN, DEFINED THE 99TH PERCENTILE OF cTnI DISTRIBUTION IN A REFERENCE POPULATION, HAS BEEN CONFIRMED THE DECISION THRESHOLD FOR [place] DIAGNOSIS. Performed By: #### C MP, HSTROPN, BNP #### [facility] [address] [address] [address] Mirtha Jimenez XR CHEST 1 Von [...] WAYNE ROBLES Date: 2022-08-25 21:00 Normal [facility] HCG ( test) IA.rapi d Ql (U)Ordered By: Simone Warren on 06-10-2022 HCG ( test) Ql (U) Negative [facility] COVID-19 SOFIAOrdered By: Annie Warren on 06-06-2022 SARS-CoV+SARS-CoV-2 (COVID-19) Ag IA.rapid Ql (Resp) Negative Negative [facility] Comment on above: This is a duplicate Porsha SARS Antigen (JIGNESH) result to be used for statistical tracking purpose only. No Panel InformationOrdered By: Simone Warren on 06-06-2022 SARS Antigen (LFIA) [facility] Urinalysis - AUTOMATEDon Appearance (U) clear [facility] Other Bilirubin Ql (U) Negative [employer] Other Color (U) rust-yellow [employer] Other Glucose Ql (U) Negative [facility] Other Hemoglobin Ql (U) [employer] Other Ketones Ql (U) Negative [facility] Other Leukocyte esterase Test strip Ql (U) [employer] Other Nitrite Ql (U) Positive [facility] Other pH (U) 6.0 [pH] [employer] Other Protein Ql (U) Negative [facility] Other Specific gravity (U) [Rel density] 1.030 [employer] Other Urobilinogen (U) [Mass/Vol] 0.2 mg/dL [employer] Other Urinalysis - AUTOMATED [employer] Other Urine Cultureon 09-05-2021 Urine Culture >100,000 [employer] Other Urine Culture <16 [employer] Other Urine Culture >16 [employer] Other Urine Culture <4 [employer] Other Urine Culture 4 [employer] Other Urine Culture <2 [employer] Other Urine Culture <1 [employer] Other Urine Culture <0.5 [employer] Other Urine Culture <32 [employer] Other Urine Culture <2/38 [employer] Other C REACTIVE PROTEINon 020 CRP [Mass/Vol] 6.9 mg/L Normal 0.0-7.0 [facility] Comment on above: Performed By: #### 6 1405 #### [facility] [address] [facility] [place] [address], [facility] CBC W/DIFFon 05-23-2020 ABS BASOPHILS 0.0 10*3/uL Normal 0.0-0.2 [facility] Comment on above: Performed By: #### 5 0103, [id number] #### [facility] [address] [facility] [place] [address], [facility] ABS IMM GRANS 0.1 10*3/uL Normal 0.0-0.2 [facility] Comment on above: Performed By: #### 5 102, [id number] #### [facility] [address] [place] [address], [facility] ABS NEUTROPHILS 5.7 10*3/uL Normal 1.6-7.6 [facility] Comment on above: Performed By: #### 5 102, [id number] #### [facility] [address] [facility] [place] [address], [facility] Basophils/100 WBC (Bld) 0.4 % Normal 0.0-1.0 [facility] Comment on above: Performed By: #### 5 102, [id number] #### [facility] [address] [facility] [place] [address], [facility] Eosinophils (Bld) [#/Vol] 0.1 10*3/uL Normal 0.0-0.5 [facility] Comment on above: Performed By: #### 5 102, 68705 #### [facility] [address] [place] [address], [facility] Eosinophils/100 WBC (Bld) 1.2 % Normal 0.0-6.0 [facility] Comment on above: Performed By: #### 5 102, [id number] #### [facility] [address] [facility] [place] [address], [facility] Erythrocyte distribution width (RBC) [Ratio] 12.5 % Normal 11.5-15.0 [facility] Comment on above: Performed By: #### 5 102, [id number] #### [facility] [address] [facility] [place] [address], [facility] Hematocrit (Bld) [Volume fraction] 43.2 % Normal 36.0-45.0 [facility] Comment on above: Performed By: #### 5 102, 81066 #### [facility] [address] [place] [address], [facility] Hemoglobin (Bld) [Mass/Vol] 14.7 g/dL Normal 12.0-15.0 [facility] Comment on above: Performed By: #### 5 102, 19711 #### [facility] [address] [place] [address], [facility] IMMATURE GRANS 0.7 % Normal 0.0-1.0 The [facility] laura [facility] Comment on above: Performed By: #### 102, [id number] #### [facility] [address] [facility] [place] [address], [facility] Lymphocytes (Bld) [#/Vol] 1.8 10*3/uL Normal 1.2-4.0 [facility] Comment on above: Performed By: #### 102, 36454 #### [facility] [address] [facility] [place] [address], [facility] Lymphocytes/100 WBC (Bld) 22.0 % Normal 20.0-45.0 [facility] Comment on above: Performed By: #### 5 102, 28925 #### [facility] [address] [facility] [place] [address], [facility] MCH (RBC) [Entitic mass] 29.5 pg Normal 27.0-33.0 [facility] Comment on above: Performed By: #### 5 102, [id number] #### [facility] [address] [facility] [place] [address], [facility] MCHC (RBC) [Mass/Vol] 34.0 g/dL Normal 32.0-35.0 [facility] Comment on above: Performed By: #### 5 102, 63794 #### [facility] [address] [place] [id number], [facility] MCV (RBC) [Entitic vol] 86.6 fL Normal 82.0-98.0 [facility] Comment on above: Performed By: #### 5 102, 13862 #### [facility] [address] [place] [address], [facility] Monocytes (Bld) [#/Vol] 0.4 10*3/uL Normal 0.1-1.0 [facility] Comment on above: Performed By: #### 5 102, [id number] #### [facility] [address] [place] [address], [place] MONOS 5.3 % Normal 5.0-12.0 [facility] Comment on above: Performed By: #### 5 102, 94848 #### [facility] [address] [place] [id number], [place] Neutrophils/100 WBC (Bld) 70.4 % Normal 40.0-72.0 [facility] Comment on above: Performed By: #### 5 102, 76729 #### [facility] [address] [place] [address], [place] Nucleated RBC/100 WBC (Bld) [Ratio] 0 % Normal 0-0 [facility] Comment on above: Performed By: #### 5 102, 68528 #### [facility] [address] [place] [address], [place] PLAT CNT 273 10*3/uL Normal 150-400 [facility] Comment on above: Performed By: #### 5 102, 42854 #### [facility] [address] [place] [address], [place] RBC (Bld) [#/Vol] 4.99 10*6/uL Normal 3.80-5.00 [facility] Comment on above: Performed By: #### 5 102, 93583 #### [facility] [address] [place] [address], [place] WBC (Bld) [#/Vol] 8.12 10*3/uL Normal 4.00-10.60 [facility] Comment on above: Performed By: #### 5 0103, [id number] #### [facility] [address] [place] [address], [facility] SEDIMENTATION RATEon 020 SED RATE 22 mm/hr High 0-20 [facility] Comment on above: Performed By: #### 5 0103, [id number] #### [facility] [address] Vital Signs Date Time Vital Sign Value Performing Clinician Facility 03-17-2025 15:49-0400 Body height 170.2 cm Alexander Gallegos MD Work Phone: [facility] 03-17-2025 15:49-0400 Body mass index (BMI) [Ratio] 44.3 kg/m2 Alexander Gallegos MD Work Phone: [facility] 03-17-2025 15:49-0400 Body temperature 99.39 [degF] Alexander Gallegos MD Work Phone: [facility] 03-17-2025 15:49-0400 Body weight 128.3 kg Alexander Gallegos MD Work Phone: [facility] 03-17-2025 15:49-0400 Diastolic blood pressure 73 mm[Hg] Alexander Gallegos MD Work Phone: [facility] 03-17-2025 15:49-0400 Heart rate 78 /min Alexander Gallegos MD Work Phone: [facility] 03-17-2025 15:49-0400 SaO2% (BldA) [Mass fraction] 99 % Alexander Gallegos MD Work Phone: [facility] 03-17-2025 15:49-0400 Systolic blood pressure 108 mm[Hg] Alexander Gallegos MD Work Phone: [facility] 12-20-2024 16:30-0400 Body height 170.2 cm Aidan Forrester MD Work Phone: [facility] 12-20-2024 16:30-0400 Body mass index (BMI) [Ratio] 44.13 kg/m2 Aidan Forrester MD Work Phone: [facility] 12-20-2024 16:30-0400 Body weight 127.8 kg Aidan Forrester MD Work Phone: [facility] 12-20-2024 16:30-0400 Diastolic blood pressure 73 mm[Hg] Aidan Forrester MD Work Phone: [facility] 12-20-2024 16:30-0400 Heart rate 74 /min iAdan Forrester MD Work Phone: [facility] 12-20-2024 16:30-0400 SaO2% (BldA) [Mass fraction] 100 % Aidan Forrester MD Work Phone: [facility] 12-20-2024 16:30-0400 Systolic blood pressure 122 mm[Hg] Aidan Forrester MD Work Phone: [facility] 12-14-2024 10:24-0400 Body height 170.2 cm [facility] 2 Work Phone: [facility] Comment on above: Pt reported 12-14-2024 10:24-0400 Body mass index (BMI) [Ratio] 43.07 kg/m2 Pac 2 Work Phone: [facility] 12-14-2024 10:24-0400 Body weight 124.74 kg Pac 2 Work Phone: [facility] Comment on above: Pt reported 12-14-2024 10:24-0400 Heart rate 60 /min [facility] 2 Work Phone: [facility] Comment on above: Pt reported 09-08-2024 13:40-0500 Body height 172.1 cm Brayan Dave APRN.CNP Work Phone: [facility] 09-08-2024 13:40-0500 Body mass index (BMI) [Ratio] 42.86 kg/m2 Christen Tenzin CAFETERIA HELPER.HIGH PRESSURE OPERATOR Work Phone: [facility] 09-08-2024 13:40-0500 Body temperature 98.4 [degF] Rikkien Tenzin CAFETERIA HELPER.HIGH PRESSURE OPERATOR Work Phone: [facility] 09-08-2024 13:40-0500 Body weight 126.95 kg Christen Tenzin CAFETERIA HELPER.HIGH PRESSURE OPERATOR Work Phone: [facility] 09-08-2024 13:40-0500 Diastolic blood pressure 72 mm[Hg] Brayan Tenzin CAFETERIA HELPER.HIGH PRESSURE OPERATOR Work Phone: [facility] 09-08-2024 13:40-0500 Heart rate 101 /min Christshashank Tenzin CAFETERIA HELPER.HIGH PRESSURE OPERATOR Work Phone: [facility] 09-08-2024 13:40-0500 Systolic blood pressure 120 mm[Hg] Brayan Tenzin CAFETERIA HELPER.HIGH PRESSURE OPERATOR Work Phone: [facility] 08-01-2024 15:54-0500 Body mass index (BMI) [Ratio] 42.97 kg/m2 Aidan Forrester MD Work Phone: [facility] 08-01-2024 15:54-0500 Body weight 124.45 kg Aidan Forrester MD Work Phone: [facility] 08-01-2024 15:54-0500 SaO2% (BldA) [Mass fraction] 96 % Aidan Forrester MD Work Phone: [facility] 06-23-2024 13:00-0400 Body mass index (BMI) [Ratio] 43.3 kg/m2 Aidan Forrester MD Work Phone: [facility] 06-23-2024 13:00-0400 Body temperature 98.1 [degF] Aidan Forrester MD Work Phone: [facility] 06-23-2024 13:00-0400 Body weight 125.4 kg Aidan Forrester MD Work Phone: [facility] 06-23-2024 13:00-0400 Diastolic blood pressure 82 mm[Hg] Aidan Forrester MD Work Phone: [facility] 06-23-2024 13:00-0400 Heart rate 68 /min Aidan Forrester MD Work Phone: [facility] 06-23-2024 13:00-0400 SaO2% (BldA) [Mass fraction] 99 % Aidan Forrester MD Work Phone: [facility] 06-23-2024 13:00-0400 Systolic blood pressure 118 mm[Hg] Aidan Forrester MD Work Phone: [facility] 05-19-2024 13:33-0400 Diastolic blood pressure 89 mm[Hg] Cumming Veronika PA-C Work Phone: [facility] 05-19-2024 13:33-0400 Heart rate 81 /min Cumming Veronika PA-C Work Phone: [facility] 05-19-2024 13:33-0400 Respiratory rate 16 /min Regina Veronika PA-C Work Phone: [facility] 05-19-2024 13:33-0400 SaO2% (BldA) [Mass fraction] 98 % Regina Veronika PA-C Work Phone: [facility] 05-19-2024 13:33-0400 Systolic blood pressure 108 mm[Hg] Cumming Veronika PA-C Work Phone: [facility] 04-08-2024 11:07-0400 Body height 170.2 cm Pac 1 Other Phone: [facility] 04-08-2024 11:07-0400 Body mass index (BMI) [Ratio] 44.47 kg/m2 Pac 1 Other Phone: [facility] 04-08-2024 11:07-0400 Body temperature 97.59 [degF] Pac 1 Other Phone: [facility] 04-08-2024 11:07-0400 Body weight 128.8 kg Pacc 1 Other Phone: [facility] 04-08-2024 11:07-0400 Diastolic blood pressure 84 mm[Hg] Pacc 1 Other Phone: [facility] 04-08-2024 11:07-0400 Heart rate 69 /min Pacc 1 Other Phone: [facility] 04-08-2024 11:07-0400 Respiratory rate 18 /min Pacc 1 Other Phone: [facility] 04-08-2024 11:07-0400 SaO2% (BldA) [Mass fraction] 99 % Pacc 1 Other Phone: [facility] 04-08-2024 11:07-0400 Systolic blood pressure 128 mm[Hg] Pacc 1 Other Phone: [facility] 03-31-2024 15:15-0400 Body height 170.2 cm Jailene Dave MD Work Phone: [facility] 03-31-2024 15:15-0400 Body mass index (BMI) [Ratio] 44.39 kg/m2 Jailene Dave MD Work Phone: [facility] 03-31-2024 15:15-0400 Body temperature 98.1 [degF] Jailene Dave MD Work Phone: [facility] 03-31-2024 15:15-0400 Body weight 128.55 kg Jailene Dave MD Work Phone: [facility] 03-31-2024 15:15-0400 Diastolic blood pressure 80 mm[Hg] Jailene Dave MD Work Phone: [facility] 03-31-2024 15:15-0400 Heart rate 92 /min Jailene Dave MD Work Phone: [facility] 03-31-2024 15:15-0400 SaO2% (BldA) [Mass fraction] 97 % Jailene Dave MD Work Phone: [facility] 03-31-2024 15:15-0400 Systolic blood pressure 121 mm[Hg] Jailene Dave MD Work Phone: [facility] 03-25-2024 08:13-0400 Body height 170.2 cm Jailene Dave MD Work Phone: [facility] 03-25-2024 08:13-0400 Body mass index (BMI) [Ratio] 44.32 kg/m2 Jailene Dave MD Work Phone: [facility] 03-25-2024 08:13-0400 Body weight 128.37 kg Jailene Dave MD Work Phone: [facility] 03-25-2024 08:13-0400 Diastolic blood pressure 84 mm[Hg] Jailene Dave MD Work Phone: [facility] 03-25-2024 08:13-0400 Heart rate 74 /min Jailene Dave MD Work Phone: [facility] 03-25-2024 08:13-0400 Respiratory rate 20 /min Jailene Dave MD Work Phone: [facility] 03-25-2024 08:13-0400 SaO2% (BldA) [Mass fraction] 98 % Jailene Dvae MD Work Phone: [facility] 03-25-2024 08:13-0400 Systolic blood pressure 126 mm[Hg] Jailene Dave MD Work Phone: [facility] 03-18-2024 13:35-0400 Diastolic blood pressure 68 mm[Hg] Infusion 5 Work Phone: [facility] 03-18-2024 13:35-0400 Heart rate 62 /min Infusion 5 Work Phone: [facility] 03-18-2024 13:35-0400 Respiratory rate 20 /min Infusion 5 Work Phone: [facility] 03-18-2024 13:35-0400 SaO2% (BldA) [Mass fraction] 95 % Infusion 5 Work Phone: [facility] 03-18-2024 13:35-0400 Systolic blood pressure 155 mm[Hg] Infusion 5 Work Phone: [facility] 03-17-2024 13:50-0400 Diastolic blood pressure 70 mm[Hg] Infusion 5 Work Phone: [facility] 03-17-2024 13:50-0400 Heart rate 68 /min Infusion 5 Work Phone: [facility] 03-17-2024 13:50-0400 Respiratory rate 14 /min Infusion 5 Work Phone: [facility] 03-17-2024 13:50-0400 SaO2% (BldA) [Mass fraction] 97 % Infusion 5 Work Phone: [facility] 03-17-2024 13:50-0400 Systolic blood pressure 138 mm[Hg] Infusion 5 Work Phone: [facility] 03-16-2024 13:45-0400 Diastolic blood pressure 60 mm[Hg] Infusion 5 Work Phone: [facility] 03-16-2024 13:45-0400 Heart rate 66 /min Infusion 5 Work Phone: [facility] 03-16-2024 13:45-0400 Respiratory rate 18 /min Infusion 5 Work Phone: [facility] 03-16-2024 13:45-0400 SaO2% (BldA) [Mass fraction] 98 % Infusion 5 Work Phone: [facility] 03-16-2024 13:45-0400 Systolic blood pressure 128 mm[Hg] Infusion 5 Work Phone: [facility] 03-15-2024 14:15-0400 Diastolic blood pressure 68 mm[Hg] Infusion 5 Work Phone: [facility] 03-15-2024 14:15-0400 Heart rate 77 /min Infusion 5 Work Phone: [facility] 03-15-2024 14:15-0400 Respiratory rate 18 /min Infusion 5 Work Phone: [facility] 03-15-2024 14:15-0400 SaO2% (BldA) [Mass fraction] 99 % Infusion 5 Work Phone: [facility] 03-15-2024 14:15-0400 Systolic blood pressure 144 mm[Hg] Infusion 5 Work Phone: [facility] 03-14-2024 13:50-0400 Diastolic blood pressure 64 mm[Hg] Infusion 5 Work Phone: [facility] 03-14-2024 13:50-0400 Heart rate 65 /min Infusion 5 Work Phone: [facility] 03-14-2024 13:50-0400 Respiratory rate 15 /min Infusion 5 Work Phone: [facility] 03-14-2024 13:50-0400 SaO2% (BldA) [Mass fraction] 96 % Infusion 5 Work Phone: [facility] 03-14-2024 13:50-0400 Systolic blood pressure 141 mm[Hg] Infusion 5 Work Phone: [facility] 03-03-2024 12:42-0400 Body height 153.9 cm Regina Veronika PA-C Work Phone: [facility] 03-03-2024 12:42-0400 Body mass index (BMI) [Ratio] 54.18 kg/m2 Regina Veronika PA-C Work Phone: [facility] 03-03-2024 12:42-0400 Body weight 128.37 kg Regina Veronika PA-C Work Phone: [facility] 03-03-2024 12:42-0400 Diastolic blood pressure 83 mm[Hg] Cumming Veronika PA-C Work Phone: [facility] 03-03-2024 12:42-0400 Heart rate 80 /min Regina Veronika PA-C Work Phone: [facility] 03-03-2024 12:42-0400 SaO2% (BldA) [Mass fraction] 99 % Cumming Veronika PA-C Work Phone: [facility] 03-03-2024 12:42-0400 Systolic blood pressure 147 mm[Hg] Cumming Veronika PA-C Work Phone: [facility] 02-22-2024 14:03-0400 Body height 169.4 cm Aidan Forrester MD Work Phone: [facility] 02-22-2024 14:03-0400 Body mass index (BMI) [Ratio] 44.85 kg/m2 Aidan Forrester MD Work Phone: [facility] 02-22-2024 14:03-0400 Body temperature 98.1 [degF] Aidan Forrester MD Work Phone: [facility] 02-22-2024 14:03-0400 Body weight 128.7 kg Aidan Forrester MD Work Phone: [facility] 02-22-2024 14:03-0400 Diastolic blood pressure 80 mm[Hg] Aidan Forrester MD Work Phone: [facility] 02-22-2024 14:03-0400 Heart rate 75 /min Aidan Forrester MD Work Phone: [facility] 02-22-2024 14:03-0400 SaO2% (BldA) [Mass fraction] 97 % Aidan Forrester MD Work Phone: [facility] 02-22-2024 14:03-0400 Systolic blood pressure 128 mm[Hg] Aidan Forrester MD Work Phone: [facility] 02-08-2024 10:03-0400 Body temperature 97.5 [degF] Henrique COLÓN Work Phone: [facility] 02-08-2024 10:03-0400 Diastolic blood pressure 88 mm[Hg] Henrique Rodríguez CAFETERIA HELPER-HIGH PRESSURE OPERATOR Work Phone: [facility] 02-08-2024 10:03-0400 Heart rate 70 /min eHnrique Rodríguez CAFETERIA HELPER-HIGH PRESSURE OPERATOR Work Phone: [facility] 02-08-2024 10:03-0400 Systolic blood pressure 136 mm[Hg] Henrique Rodríguez CAFETERIA HELPER-HIGH PRESSURE OPERATOR Work Phone: [facility] 01-25-2024 14:18-0400 Body mass index (BMI) [Ratio] 44.88 kg/m2 Aidan Forrester MD Work Phone: [facility] 01-25-2024 14:18-0400 Body temperature 98.2 [degF] Aidan Forrester MD Work Phone: [facility] 01-25-2024 14:18-0400 Body weight 128.8 kg Aidan Forrester MD Work Phone: [facility] 01-25-2024 14:18-0400 Diastolic blood pressure 74 mm[Hg] Aidan Forrester MD Work Phone: [facility] 01-25-2024 14:18-0400 Heart rate 85 /min Aidan Forrester MD Work Phone: [facility] 01-25-2024 14:18-0400 SaO2% (BldA) [Mass fraction] 97 % Aidan Forrester MD Work Phone: [facility] 01-25-2024 14:18-0400 Systolic blood pressure 110 mm[Hg] Aidan Forrester MD Work Phone: [facility] 01-19-2024 13:03-0400 Body height 169.4 cm Kaylene Daley PA-C Work Phone: [facility] 01-19-2024 13:03-0400 Body mass index (BMI) [Ratio] 45.34 kg/m2 Kaylene Stevensk PA-C Work Phone: [facility] 01-19-2024 13:03-0400 Body temperature 98.4 [degF] Kaylene Stevensk PA-C Work Phone: [facility] 01-19-2024 13:03-0400 Body weight 130.1 kg Kaylene Stevensk PA-C Work Phone: [facility] 01-19-2024 13:03-0400 Diastolic blood pressure 61 mm[Hg] Kaylene Stevensk PA-C Work Phone: [facility] 01-19-2024 13:03-0400 Heart rate 88 /min Kaylene Stevensk PA-C Work Phone: [facility] 01-19-2024 13:03-0400 Respiratory rate 18 /min Kaylene Stevensk PA-C Work Phone: [facility] 01-19-2024 13:03-0400 SaO2% (BldA) [Mass fraction] 97 % Kaylene Stevensk PA-C Work Phone: [facility] 01-19-2024 13:03-0400 Systolic blood pressure 130 mm[Hg] Kaylene Stevensk PA-C Work Phone: [facility] 01-18-2024 12:10-0400 Body temperature 97.5 [degF] Dominick Lopes MD Work Phone: [facility] 01-18-2024 12:10-0400 Diastolic blood pressure 64 mm[Hg] Dominick Lopes MD Work Phone: [facility] 01-18-2024 12:10-0400 Heart rate 82 /min Dominick Lopes MD Work Phone: [facility] 01-18-2024 12:10-0400 Respiratory rate 16 /min Dominick Lopes MD Work Phone: [facility] 01-18-2024 12:10-0400 SaO2% (BldA) [Mass fraction] 97 % Dominick Lopes MD Work Phone: [facility] 01-18-2024 12:10-0400 Systolic blood pressure 140 mm[Hg] Dominick Lopes MD Work Phone: [facility] 01-18-2024 10:04-0400 Body height 170.2 cm Dominick Lopes MD Work Phone: [facility] 01-18-2024 10:04-0400 Body mass index (BMI) [Ratio] 43.85 kg/m2 Dominick Lopes MD Work Phone: [facility] 01-18-2024 10:04-0400 Body weight 127.01 kg Dominick Lopes MD Work Phone: [facility] 01-06-2024 11:11-0400 Body height 170.2 cm Tracie Williamson CAFETERIA HELPER.HIGH PRESSURE OPERATOR Work Phone: [facility] 01-06-2024 11:11-0400 Body temperature 97.81 [degF] Tracieave Williamson CAFETERIA HELPER.HIGH PRESSURE OPERATOR Work Phone: [facility] 01-06-2024 11:11-0400 Body weight 125.1 kg Tracieave Williamson CAFETERIA HELPER.HIGH PRESSURE OPERATOR Work Phone: [facility] 01-06-2024 11:11-0400 Diastolic blood pressure 78 mm[Hg] Tracie Williamson CAFETERIA HELPER.HIGH PRESSURE OPERATOR Work Phone: [facility] 01-06-2024 11:11-0400 Heart rate 85 /min Tracie Williamson CAFETERIA HELPER.HIGH PRESSURE OPERATOR Work Phone: [facility] 01-06-2024 11:11-0400 SaO2% (BldA) [Mass fraction] 98 % Tracieave Williamson CAFETERIA HELPER.HIGH PRESSURE OPERATOR Work Phone: [facility] 01-06-2024 11:11-0400 Systolic blood pressure 114 mm[Hg] Tracie Williamson CAFETERIA HELPER.HIGH PRESSURE OPERATOR Work Phone: [facility] 12-07-2023 14:48-0400 Body weight 129 kg Norma Lyman CAFETERIA HELPER.HIGH PRESSURE OPERATOR Work Phone: [facility] 05-18-2023 21:16-0400 Diastolic blood pressure 60 mm[Hg] 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 Shon Shammo Work Phone: [facility] 05-18-2023 21:16-0400 Heart rate 70 /min 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 Shon Shammo Work Phone: [facility] 05-18-2023 21:16-0400 Respiratory rate 18 /min 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 Shon Shammo Work Phone: [facility] 05-18-2023 21:16-0400 SaO2% (BldA) [Mass fraction] 100 % 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 Shon Shammo Work Phone: [facility] 05-18-2023 21:16-0400 Systolic blood pressure 112 mm[Hg] 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 Shon Shammo Work Phone: [facility] 05-18-2023 17:39-0400 Body height 170.18 cm 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 Shon Shammo Work Phone: [facility] 05-18-2023 17:39-0400 Body temperature 98.9 [degF] 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 Shon Shammo Work Phone: [facility] 05-18-2023 17:39-0400 Body weight 126.4 kg 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 Shon Shammo Work Phone: [facility] 06-10-2022 08:52-0400 Diastolic blood pressure 67 mm[Hg] MD Liya Peña Work Phone: [facility] 06-10-2022 08:52-0400 Heart rate 60 /min MD Liya Peña Work Phone: [facility] 06-10-2022 08:52-0400 Respiratory rate 18 /min MD Liya Peña Work Phone: [facility] 06-10-2022 08:52-0400 SaO2% (BldA) [Mass fraction] 100 % MD Liya Peña Work Phone: [facility] 06-10-2022 08:52-0400 Systolic blood pressure 107 mm[Hg] MD Liya Peña Work Phone: [facility] 06-10-2022 07:34-0400 Body height 172.72 cm MD Liya Peña Work Phone: [facility] 06-10-2022 07:34-0400 Body temperature 98.6 [degF] MD Liya Peña Work Phone: [facility] 06-10-2022 07:34-0400 Body weight 120.2 kg MD Liya Peña Work Phone: [facility] 09-05-2021 10:50-0500 Body height 172.72 cm Astrid Myers Other [facility] Other 09-05-2021 10:50-0500 Body mass index (BMI) [Ratio] 39.38 kg/m2 Astrid Myers Other [facility] Other 09-05-2021 10:50-0500 Body temperature 97.7 [degF] Astrid Myers Other [facility] Other 09-05-2021 10:50-0500 Body weight 117.48 kg Astrid Myers Other [facility] Other 09-05-2021 10:50-0500 Diastolic blood pressure 69 mm[Hg] Astrid Myers Other [facility] Other 09-05-2021 10:50-0500 Respiratory rate 18 /min Astrid Myers Other [facility] Other 09-05-2021 10:50-0500 SaO2% (BldA) [Mass fraction] 100 % Astrid Myers Other [facility] Other 09-05-2021 10:50-0500 Systolic blood pressure 143 mm[Hg] Astrid Myers Other [facility] Other Encounters Encounter Date Encounter Type Care Provider Facility Start: 04-07-2025 End: 04-10-2025 ambulatory Kaylene Daley PA-C Work Phone: [facility] Comment on above: Pain management Start: 03-30-2025 End: 03-30-2025 ambulatory No Pcp (Hist) [facility] Start: 03-30-2025 End: 03-30-2025 Patient encounter procedure No Pcp (Hist) [facility] Start: 03-17-2025 End: 03-17-2025 Office outpatient visit 25 minutes Alexander Gallegos MD Work Phone: Internal Medicine [facility] Comment on above: Chronic right-sided low back pain with right-sided sciatica (Primary Dx); Thyroid nodule; Mixed hyperlipidemia; Chronic fatigue; Vitamin D deficiency; Hyperglycemia Start: 03-17-2025 End: 03-17-2025 ambulatory Kaylene Daley PA-C Work Phone: [facility] Comment on above: Pain management Start: 03-14-2025 End: 03-23-2025 Telephone encounter Bri Vo MD Work Phone: Endocrine Surgery Start: 02-22-2025 End: 02-22-2025 Telephone encounter Tracie Williamson APRN.CNP Work Phone: Internal Medicine [place] Comment on above: Appointment Start: 12-23-2024 End: 03-20-2025 Telephone encounter Rod Randhawa PA-C Work Phone: Pre Anesthesia Comment on above: Pre-Op Update (UTI) Start: 12-21-2024 End: 12-21-2024 Refill Aidan Forrester MD Work Phone: Internal Medicine [place] Comment on above: Refill Request Start: 12-20-2024 End: 12-20-2024 ambulatory AIDAN FORRESTER Facility:[facility] Start: 12-20-2024 End: 12-20-2024 Office outpatient visit 25 minutes Aidan Forrester MD Work Phone: Internal Medicine [place] Comment on above: Abnormal urine odor (Primary Dx); Chronic bilateral low back pain with right-sided sciatica; Preop testing; Spina bifida, unspecified hydrocephalus presence, unspecified spinal region (HCC); Neurogenic bladder; Multiple thyroid nodules Start: 12-20-2024 End: 12-20-2024 Patient encounter status Aidan Forrester MD Work Phone: [facility] Start: 12-14-2024 End: 12-14-2024 Admission to establishment [facility] Work Phone: Pre Anesthesia Start: 12-14-2024 End: 12-14-2024 ambulatory AIDAN FORRESTER Facility:[facility] Start: 12-14-2024 End: 12-14-2024 Anesthesia consultation Pacc 2 Work Phone: Pre Anesthesia Comment on above: Pre-op evaluation (P rimary Dx); Morbid obesity with BMI of 40.0-44.9, adult (HCC); Difficult intravenous access; Abnormal urine odor; Neurogenic bladder; Smoker; Spina bifida, unspecified hydrocephalus presence, unspecified spinal region (HCC) Start: 12-14-2024 End: 12-14-2024 Preprocedural examination done Pacc 2 Work Phone: [facility] Work Phone: Start: 11-24-2024 End: 11-24-2024 Nursing evaluation of patient and report Nurse Card [facility] Liane Work Phone: Cardiology Comment on above: Multiple thyroid nod ules Start: 11-24-2024 End: 11-24-2024 ambulatory AIDAN BOO LUIS Facility:[facility] Start: 11-10-2024 End: 11-10-2024 ambulatory Carl Avila Back Tender [employer] Work Phone: Endocrinology Start: 11-09-2024 End: 11-10-2024 Admission to same day surgery center Jailene Dave MD Work Phone: Endocrinology Comment on above: My surgery... Start: 11-09-2024 End: 11-10-2024 ambulatory Jailene Dave MD Work Phone: Endocrinology Start: 11-08-2024 End: 11-08-2024 ambulatory AIDAN PEPE FORRESTER Facility:[facility] Start: 11-08-2024 End: 11-08-2024 Patient encounter procedure Bri Vo MD Work Phone: Endocrine Surgery Comment on above: Multiple thyroid nod ules (Primary Dx); Thyroid nodule Start: 11-02-2024 End: 11-02-2024 Telephone encounter Bri Vo MD Work Phone: Endocrine Surgery Comment on above: Consult (FACE SHEET) Start: 10-31-2024 End: 10-31-2024 ambulatory Brayan Dave APRN.HIGH PRESSURE OPERATOR Work Phone: Endocrinology [facility] Comment on above: Medication Start: 10-16-2024 End: 10-17-2024 Refill Tracie Williamson APRN.HIGH PRESSURE OPERATOR Work Phone: Internal Medicine [place] Comment on above: Refill Request Start: 10-05-2024 End: 10-07-[address]24 [address] Luisa Huber RD Work Phone: Endocrinology Comment on above: Severe obesity (BMI >= 40) (HCC) (Primary Dx) Refill Request Start: 10-05-2024 End: 10-05-2024 Telemedicine consultation with patient Maria Luisa Huber RD Work Phone: Endocrinology Start: 09-11-2024 End: 09-19-2024 Refill Aidan Forrester MD Work Phone: Internal Medicine [place] Comment on above: Refill Request Start: 09-08-2024 End: 09-08-2024 ambulatory AIDAN FORRESTER Facility:[facility] Start: 09-08-2024 End: 09-08-2024 Patient encounter procedure Brayan Dave APRN.CNP Work Phone: Endocrinology [facility] Comment on above: Severe obesity (BMI >= 40) (HCC) (Primary Dx); BMI 40.0-44.9, adult (HCC); Multiple thyroid nodules; Fatty liver; Spina bifida, unspecified hydrocephalus presence, unspecified spinal region (HCC); Chronic bilateral low back pain with right-sided sciatica; Medication management; Dietary counseling; Exercise counseling Start: 08-31-2024 End: 08-31-2024 ambulatory AIDAN FORRESTER Facility:[facility] Start: 08-10-2024 End: 08-10-2024 ambulatory Kaylene Daley PA-C Work Phone: [facility] Comment on above: Pain management Start: 08-10-2024 End: 08-10-2024 Telephone encounter Marcus E Marcus DO Work Phone: Pain Management Comment on above: Appointment (Pain trenton matthews) Start: 08-03-2024 End: 08-08-2024 ambulatory Marcus E Marcus DO Work Phone: Pain Management Comment on above: PAIN QUESTIONNAIRE Start: 08-03-2024 End: 08-03-2024 E-mail encounter from caregiver Marcus E Marcus DO Work Phone: Pain Management Start: 08-01-2024 End: 08-01-2024 ambulatory AIDAN FORRESTER Facility:[facility] Start: 08-01-2024 End: 08-01-2024 Office outpatient visit 10 minutes Aidan Forrester MD Work Phone: Internal Medicine [place] Comment on above: Morbid obesity with BMI of 40.0-44.9, adult (HCC) (Primary Dx); Current every day smoker; Vapes nicotine containing substance Start: 07-08-2024 End: 07-08-2024 ambulatory No Pcp CAFETERIA HELPER [facility] Start: 07-08-2024 End: 07-08-2024 Patient encounter procedure No Pcp CAFETERIA HELPER [facility] Start: 07-04-2024 End: 07-08-2024 Refill Aidan Forrester MD Work Phone: Internal Medicine [place] Comment on above: Refill Request Results Start: 06-29-2024 ambulatory AIDAN FORRESTER Facility:[facility] Start: 06-29-2024 End: 06-29-2024 Subsequent hospital visit by physician [facility] 2 Work Phone: [facility] Radiology Ultrasound Comment on above: RUQ pain [R10.11] Start: 06-23-2024 End: 06-23-2024 ambulatory AIDAN FORRESTER Facility:[facility] Start: 06-23-2024 End: 06-23-2024 Office outpatient visit 25 minutes Aidan Forrester MD Work Phone: Internal Medicine [place] Comment on above: RUQ pain (Primary Dx ); Screening for depression; Encounter for immunization; Encounter for screening examination for other mental health and behavioral disorders; Multiple thyroid nodules Start: 06-09-2024 ambulatory DOMINICK LOPES [facility] Start: 05-25-2024 End: 05-25-2024 ambulatory AIDAN FORRESTER Facility:[facility] Start: 05-25-2024 End: 05-25-2024 Patient encounter procedure Elda Danielson MD Work Phone: Ophthalmology Comment on above: Monocular exotropia with other noncomitancies, left eye (Primary Dx); Hypotropia of left eye Start: 05-19-2024 End: 05-19-2024 ambulatory AIDAN FORRESTER Facility:[facility] Start: 05-19-2024 End: 05-19-2024 Patient encounter procedure Regina Agrawal PA-C Work Phone: Neurology Pain Comment on above: Chronic pain syndrom e (Primary Dx); Hx of spina bifida; Chronic bilateral low back pain with sciatica, sciatica laterality unspecified; Tethered cord (HCC); Hx of laminectomy; Anxiety and depression Start: 05-04-2024 End: 05-04-2024 ambulatory AIDAN PEPE FORRESTER Facility:[facility] Start: 05-04-2024 End: 05-04-2024 Patient encounter procedure Elda Danielson MD Work Phone: Ophthalmology Comment on above: Monocular exotropia with other noncomitancies, left eye (Primary Dx); Hypotropia of left eye Start: 05-01-2024 Refill Aidan Forrester MD Work Phone: Internal [facility] [place] Comment on above: Refill Request Start: 04-27-2024 Telephone encounter Elda yip MD Work Phone: Ophthalmology Comment on above: Medication Problem Start: 04-26-2024 End: 04-26-2024 ambulatory AIDAN PEPE FORRESTER Facility:[facility] Start: 04-25-2024 Telephone encounter Luciana ryder MD Work Phone: Otolaryngology Start: 04-15-2024 Social Work Manny HARVEYW Psych iatry Start: 04-14-2024 End: 04-14-2024 [facility] Haily Mayer Therapist Work Phone: Pain Recovery [...] Start: 04-08-2024 End: 04-08-2024 Preprocedural examination done [facility] [address] Other Phone: [facility] Work Phone: Start: 04-08-2024 End: 04-08-2024 ambulatory ELDA DANIELSON Facility[facility] Start: 04-08-2024 Encounter for other preprocedural examination KAYLENE [facility] Start: 04-05-2024 End: 04-05-2024 ambulatory AIDAN FORRESTER Facility:[facility] Start: 04-05-2024 End: 04-05-2024 Patient encounter procedure Luciana Buckley MD Work Phone: Otolaryngology Comment on above: Airway compromise (P rimary Dx); Multiple thyroid nodules Start: 04-05-2024 Telephone encounter Jailene Dave MD Work Phone: Endocrinology Comment on above: Results Start: 03-31-2024 End: 03-31-2024 Patient encounter procedure Jailene Dave MD Work Phone: Endocrinology Comment on above: Thyroid nodule (Prim chrissy Dx) Start: 03-28-2024 Refill Aidan Forrester MD Work Phone: Internal Medicine [place] Comment on above: Refill Request Start: 03-25-2024 End: 03-25-2024 Patient encounter procedure [...] Neurology Pain Start: 03-04-2024 End: 03-04-2024 ambulatory Kaylene Daley PA-C Work Phone: [facility] Comment on above: Tethered cord (HCC) (Primary Dx); Adhesive arachnoiditis Start: 03-04-2024 End: 03-04-2024 Telemedicine consultation with patient Kaylene Daley PA-C Work Phone: [facility] Start: 03-03-2024 End: 03-03-2024 Patient encounter procedure Regina Agrawal PA-C Work Phone: Neurology Pain Comment on above: Chronic bilateral lo w back pain, unspecified whether sciatica present (Primary Dx); Tethered cord (HCC); Hx of spina bifida; Hx of laminectomy; H/O laminectomy; Chronic pain syndrome; Anxiety and depression Start: 02-22-2024 End: 02-22-2024 Office outpatient visit 25 minutes Aidan Forrester MD Work Phone: Internal Medicine [place] Comment on above: Multiple thyroid nod ules (Primary Dx); Chronic bilateral low back pain, unspecified whether sciatica present; Heartburn; Nausea; Chronic daily headache Start: 02-13-2024 Telephone encounter Aidan Forrester MD Work Phone: Internal Medicine [place] Comment on above: Request Outside Medi [facility] Records Start: 02-12-2024 Telephone encounter Aidan Forrester MD Work Phone: Internal Medicine [place] Comment on above: Results Start: 02-11-2024 Telephone encounter Kaylene toussaint PA-C Work Phone: [facility] Start: 02-08-2024 End: 02-08-2024 Subsequent hospital visit by physician [facility] 2 Work Phone: [facility] Radiology Ultrasound Comment on above: Nontoxic single thyr oid nodule [E04.1] Start: 02-08-2024 End: 02-08-2024 ambulatory [facility] Ambulatory Start: 02-08-2024 End: 02-08-2024 Office outpatient visit 15 minutes [facility] CAFETERIA HELPER-HIGH PRESSURE OPERATOR Work Phone: [facility] Comment on above: Urge incontinence (P rimary Dx) Start: 02-03-2024 End: 02-03-2024 Subsequent hospital visit by physician [facility] Ayanna (I-Stat/3t) MRI [facility] Comment on above: Encounter for observ ation for other suspected diseases and conditions ruled out [Z03.89] Start: 01-28-2024 Telephone encounter Aidan Forrester MD Work Phone: Internal Medicine [place] Comment on above: [facility] (Received outside medical records on providers desk for review. ) Start: 01-25-2024 End: 01-25-2024 Office outpatient visit 25 minutes Aidan Forrester MD Work Phone: Internal Medicine [place] Comment on above: Chronic bilateral lo w back pain, unspecified whether sciatica present (Primary Dx); Morbid obesity with BMI of 40.0-44.9, adult (HCC); Neurogenic bladder; Spina bifida, unspecified hydrocephalus presence, unspecified spinal region (HCC); Tethered cord (HCC); Urinary frequency; Acute UTI Start: 01-19-2024 End: 01-19-2024 Patient encounter procedure Kaylene Daley PA-C Work Phone: [facility] Comment on above: Tethered cord (HCC) (Primary Dx); Hx of spina bifida; Chronic bilateral low back pain, unspecified whether sciatica present; H/O laminectomy; Chronic pain syndrome; Encounter for observation for other suspected diseases and conditions ruled out; Abnormal findings on diagnostic imaging of other parts of musculoskeletal system; Pain in thoracic spine Start: 01-19-2024 ambulatory AIDAN FORRESTER Facility:[facility] Start: 01-19-2024 End: 01-19-2024 Subsequent hospital visit by physician Xr [facility] Radiology Comment on above: Tethered cord (HCC) [Q06.8] Start: 01-18-2024 End: [facility] Start: 01-18-[facility]24 End: 01-18-2024 Subsequent hospital visit by physician Dominick Lopes MD Work Phone: [facility] Comment on above: Post-operative pain (Primary Dx); Urge incontinence Start: 01-14-2024 End: 01-14-2024 Patient encounter procedure Elda Danielson MD Work Phone: Ophthalmology Comment on above: Monocular exotropia with other noncomitancies, left eye (Primary Dx); Hypotropia of left eye; Amblyopia, left eye Start: 01-06-2024 End: 01-06-2024 Patient encounter procedure Tracie Williamson APRN.HIGH PRESSURE OPERATOR Work Phone: Internal Medicine [place] Comment on above: Encounter to [facility] (Primary Dx); Tethered cord (HCC); Spina bifida, unspecified hydrocephalus presence, unspecified spinal region (HCC); Other chronic pain; Smoker; Mood disorder (HCC) Start: 12-08-2023 Telephone encounter Nasima england CAFETERIA HELPER.HIGH PRESSURE OPERATOR Work Phone: [facility] Comment on above: Nurse Triage Call Start: 12-07-2023 End: 12-07-2023 Patient encounter procedure Norma Lyman CAFETERIA HELPER.HIGH PRESSURE OPERATOR Work Phone: [facility] Comment on above: Tethered cord (HCC) (Primary Dx); Hx of spina bifida; Chronic bilateral low back pain, unspecified whether sciatica present; H/O laminectomy; Chronic pain syndrome Start: 12-01-2023 End: 12-01-2023 Patient encounter procedure Frank Gutierrez OD Work Phone: Ophthalmology Comment on above: Strabismic amblyopia of left eye (Primary Dx); Diplopia Start: 11-20-2023 End: 11-20-2023 ambulatory Pepe Vicente Facility:[facility] Start: 05-18-2023 End: 05-18-2023 Emergency department patient visit Shon Angel Facility:[facility] Start: 05-18-2023 End: 05-18-2023 Emergency department patient visit [facility] Shon Angel Work Phone: [facility] Work Phone: Start: 03-18-2023 End: 03-19-2023 ambulatory DOMINICK LOPES MD Facility:[id number] Start: 02-16-2023 End: 02-16-2023 ambulatory ELIUD LEIVA . Facility:[facility] Start: 10-06-2022 End: 10-06-[address] Juanita Sharma Facility:[id number] Start: 08-25-2022 End: 08-26-[address] DENISSE STRONG . Facility:[facility] Start: 08-07-2022 End: 08-07-2022 ambulatory DO Juanita Sharma Work Phone: [facility] Work Phone: Start: 08-07-2022 End: 08-07-2022 Discharged Recurring DO Juanita House Work Phone: [facility]-Physical Therapy [place] Start: 06-10-2022 End: 06-10-2022 Admission to same day surgery center MD Liya Peña Work Phone: [facility]Digestive Health Start: 06-06-2022 End: 06-06-2022 Patient encounter procedure MD Liya Peña Work Phone: [facility]-Pre-Surgical Testing Start: 05-29-2022 Registered Recurring MD Liya vanegas Work Phone: [facility]Physical [facility] [place] Start: 09-05-2021 End: 09-05-2021 ambulatory Astrid Myers Other [facility] Other Start: 09-05-2021 Office outpatient vi sit 15 minutes Astrid Myers [facility] Procedures Date Procedure Procedure Detail Performing Clinician Start: 11-08-2024 Us soft tissue head & neck real time imge ratna Vo MD Work Phone: Start: 09-08-2024 Hemoglobin A1c/Hemoglobin.total in Blood Brayan Dave APRN.HIGH PRESSURE OPERATOR Work Phone: Start: 06-23-2024 Adult depression screening assessment Aidan Forrester MD Work Phone: Start: 03-31-2024 End: 03-31-2024 Us soft tissue head & neck real time imge ratna Dave MD Work Phone: Start: 02-03-2024 Mri spinal canal cer vical w/o contrast matrl Kaylene Daley PA-C Work Phone: Start: 01-25-2024 Urnls dip stick/tabl et rgnt auto w/o microscopy Aidan Forrester MD Work Phone: Start: 01-25-2024 Urnls dip stick/tabl et reagent auto microscopy Aidan Forrester MD Work Phone: Start: 01-18-2024 DISCHARGE PATIENT ANNA LOPES Start: 01-18-2024 ADULT DISCHARGE DIET AD ROGER LOPES Start: 01-18-2024 DISCHARGE ACTIVITY IMPREGNATING TANK OPERATORTEZ LOPES Start: 01-18-2024 NOTIFY PROVIDER (DO NOT PROMPT FOR PARAMETERS) DOMINICK LOPES Start: 01-18-2024 HCG, URINE, QUALITATIVE DOMINICK LOPES Start: 01-18-2024 FULL CODE DOMINICK ANDERSEN [place] Start: 01-18-2024 PULSE OXIMETRY, SPOT AD ROGER LOPES Start: 01-18-2024 PLACE IN OUTPATIENT/HOSPITAL AMBULATORY SURGERY DOMINICK LOPES Start: 01-18-2024 Urine test visual color cmprsn meths Dominick Lopes MD Work Phone: Start: 01-18-2024 PULSE OXIMETRY, SPOT Jeff roger Lopes MD Work Phone: Start: 05-18-2023 CT of head without contrast 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 Shon Angel Work Phone: Start: 06-10-2022 Diagnostic endoscopi c examination on colon MD Liya Peña Work Phone: Start: 09-05-2021 Piperacillin/tazobactam Astrid Myers Other Start: 04-28-2006 Lipid 1996 panel - S gisel or Plasma Tracie Williamson CAFETERIA HELPER.HIGH PRESSURE OPERATOR Work Phone: SARS Antigen (LFIA) MD Liya Peña Work Phone: Plan of Treatment Date Care Activity Detail Author Start: 02-16-2033 DTaP/Tdap/Td Vaccines (3 - Td or Tdap) DTaP/Tdap/Td Vaccines (3 - Td or Tdap) [facility] Start: 02-16-2033 Urine microalbumin profile DTaP,Tdap,Td Vaccine (3 - Td or Tdap) [facility] Start: 12-25-2029 Zoster Vaccines (1 of 2) Zoster Vaccines (1 of 2) [facility] Start: 06-23-2028 Screening for malignant neoplasm of cervix [facility] Start: 11-25-2027 Diabetes Screening Diabetes Screening [facility] Start: 06-23-2026 Screening for malignant neoplasm of cervix Cervical Cancer Screening [facility] Start: 06-23-2025 Anxiety Screening Anxiety Screening [facility] Start: 06-23-2025 Covid-19 Vaccine ( season) Covid-19 Vaccine ( season) [facility] Comment on above: Postponed from 05/22/2024 (Declined at t his time) Start: 06-23-2025 Depression Screening Depression Screening [facility] Start: 05-22-2025 Influenza vaccination [facility] Start: 05-04-2025 End: 05-04-2025 Admission to same day surgery center 05/04/2025 3:40 PM EDT [facility] Endocrine Surgery [id number] [place] [id number] Bri Vo MD [address] [place] [address] post op Endocrine Surgery Comment on above: post op Start: 04-14-2025 End: 04-14-2025 Patient encounter procedure [facility] Comment on above: LAB Thyroid nodule [E04. 1] Start: 04-10-2025 End: 04-10-2025 Admission to same day surgery center 04/10/2025 7:30 AM EDT - 04/10/2025 9:30 AM EDT Surgery [facility] [address] [place] [id number] Bri Vo MD [address] [place] [address] THYROIDECTOMY TOTAL [facility] Comment on above: THYROIDECTOMY TOTAL Start: 04-10-2025 Subsequent hospital visit by physician 04/10/2025 7:30 AM EDT Hospital Encounter [facility] [address] [place] [id number] Bri Vo MD [address] [place] [address] Multiple thyroid nodules [E04.2] [facility] Comment on above: Multiple thyroid nodules [E04.2] Start: 04-10-2025 End: 04-10-2025 Thyroidectomy total/complete THYROIDECTOMY TOTAL Multiple thyroid nodules 04/10/2025 7:30 AM EDT [facility] OR Start: 03-30-2025 End: 03-30-2025 ambulatory 03/30/2025 10:45 AM EDT Results Only [facility] [address] [place], [place] [address] [address] pre-op [facility] Comment on above: pre-op Start: 03-30-2025 End: 03-30-2025 Admission to same day surgery center 03/30/2025 9:50 AM EDT PAT Pre Anesthesia [address] [place], [place] [address] [address] PT WANTS TO CANCEL SURGERY; MESSAGE SENT TO SURGEON Pre Anesthesia Comment on above: PT WANTS TO CANCEL SURGERY; MESSAGE SENT TO SURGEON Start: 03-30-2025 End: 03-30-2025 Anesthesia consultation 03/30/2025 9:50 AM EDT PAT Pre Anesthesia [address] [place], [place] [address] [address] pre-op/ please perform EKG Pre Anesthesia Comment on above: pre-op/ please perform EKG Start: 03-20-2025 Influenza vaccination Influenza Vaccine (#1) [facility] Comment on above: Postponed from 05/22/2024 (Declined at t his time) Start: 03-17-2025 End: 03-17-2025 Patient encounter procedure 03/17/2025 3:45 PM EDT Office Visit Internal Medicine [facility] [address] [place] [address] Alexander Gallegos MD [address] [place] [address] Establish Care/transferring care Internal Medicine [facility] Comment on above: Establish Care/transferring care Start: 03-17-2025 End: 06-16-2025 25-hydroxyvitamin D3 [Mass/volume] in Serum or Plasma VITAMIN D 25 HYDROXY Lab Routine Vitamin D deficiency Expected: 03/17/2025, Expires: 06/16/2025 [facility] Comment on above: Expected: 03/17/2025, Expires: Start: 03-17-2025 End: 06-16-2025 CBC W Auto Differential panel - Blood COMPLETE BLOOD COUNT AND DIFFERENTIAL Lab Routine Chronic fatigue Expected: 03/17/2025, Expires: 06/16/2025 [facility] Comment on above: Expected: 03/17/2025, Expires: Start: 03-17-2025 End: 06-16-2025 Comprehensive metabolic 2000 panel - Serum or Plasma COMPREHENSIVE METABOLIC PANEL Lab Routine Chronic fatigue Expected: 03/17/2025, Expires: 06/16/2025 [facility] Comment on above: Expected: 03/17/2025, Expires: Start: 03-17-2025 End: 06-16-2025 Hemoglobin A1c in Blood HEMOGLOBIN A1C Lab Routine Hyperglycemia Expected: 03/17/2025, Expires: 06/16/2025 [facility] Comment on above: Expected: 03/17/2025, Expires: Start: 03-17-2025 End: 06-16-2025 Lipid 1996 panel - Serum or Plasma LIPID PANEL, FASTING Lab Routine Mixed hyperlipidemia Expected: 03/17/2025, Expires: 06/16/2025 [facility] Comment on above: Expected: 03/17/2025, Expires: Start: 03-17-2025 End: 06-16-2025 Thyrotropin [Units/volume] in Serum or Plasma THYROID STIMULATING HORMONE Lab Routine Thyroid nodule Chronic fatigue Expected: 03/17/2025, Expires: 06/16/2025 [facility] Comment on above: Expected: 03/17/2025, Expires: Start: 03-17-2025 End: 06-16-2025 Thyroxine (T4) free [Mass/volume] in Serum or Plasma T4 FREE/FREE THYROXINE Lab Routine Thyroid nodule Chronic fatigue Expected: 03/17/2025, Expires: 06/16/2025 [facility] Comment on above: Expected: 03/17/2025, Expires: Start: 03-17-2025 End: 06-16-2025 Triiodothyronine (T3) Free [Mass/volume] in Serum or Plasma T3, FREE Lab Routine Thyroid nodule Chronic fatigue Expected: 03/17/2025, Expires: 06/16/2025 [facility] Comment on above: Expected: 03/17/2025, Expires: Start: 02-21-2025 Hepatitis C screening Hepatitis C Screening [facility] Comment on above: Postponed from 12/25/1997 (Declined at t his time) Start: 01-24-2025 End: 01-24-2025 Admission to same day surgery center 01/24/2025 2:20 PM EDT [facility] Endocrine Surgery [address] [place] [address] Bri Vo MD [address] [place] [address] post op Endocrine Surgery Comment on above: post op Start: 01-19-2025 End: 01-19-2025 Patient encounter procedure 01/19/2025 1:00 PM EDT Office Visit Gastroenterology [address] [place] [address] Keyla Bolanos MD [address] [place] [address] Fatty Liver, Morbid obesity with BMI of 40.0-44.9, adult (HCC) [E66.01, Z68.41] Gastroenterology Comment on above: Fatty Liver, Morbid obesity with BMI of 40.0-44.9, adult (HCC) [E66.01, Z68.41] Start: 01-05-2025 Covid-19 Vaccine () Covid-19 Vaccine () [facility] Comment on above: Postponed from 05/22/2023 (Declined at t his time) Start: 01-05-2025 Hepatitis B Vaccine (1 of 3 - 19+ 3-dose series) Hepatitis B Vaccine (1 of 3 - 19+ 3-dose series) [facility] Comment on above: Postponed from 12/25/1998 (Declined at t his time) Start: 01-05-2025 Pneumococcal vaccination Pneumococcal Vaccine (1 of 2 - PCV) [facility] Comment on above: Postponed from 12/25/1985 (Declined at t his time) Start: 12-28-2024 End: 12-28-2024 Admission to same day surgery center [facility] Comment on above: THYROIDECTOMY TOTAL Start: 12-28-2024 Subsequent hospital visit by physician [facility] Comment on above: Multiple thyroid nodules [E04.2] Start: 12-28-2024 End: 12-28-2024 Thyroidectomy total/complete MM OR Start: 12-25-2024 Lipid panel Lipid Screening [facility] Start: 12-25-2024 Screening for malignant neoplasm of colon [facility] Start: 12-20-2024 End: 12-20-2024 Patient encounter procedure 12/20/2024 4:40 PM EDT Office Visit [facility] [place] [address] [id number] Aidan Montenegro MD [address] [place], [place] [id number] Mandatory medicine visit [facility] [place] Comment on above: Mandatory medicine visit Start: 12-14-2024 End: 03-15-2025 Bacteria identified in Urine by Culture BACTERIAL CULTURE, URINE Microbiology Routine Pre-op evaluation Abnormal urine odor Expected: 12/14/2024, Expires: 03/15/2025 [facility] Comment on above: Expected: 12/14/2024, Expires: Start: 12-14-2024 End: 03-15-2025 Urinalysis complete panel - Urine URINALYSIS, WITH MICROSCOPIC Lab Routine Pre-op evaluation Abnormal urine odor Expected: 12/14/2024, Expires: 03/15/2025 [facility] Work Phone: Comment on above: Expected: 12/14/2024, Expires: Start: 12-09-2024 End: 12-09-2024 Patient encounter procedure Endocrinology [facility] Comment on above: Return in about 3 months (around 12/08/19) for weight management. Return in abou t 3 months (around 12/07/2024) for weight management. Start: 12-08-2024 End: 12-08-2024 Patient encounter procedure 12/08/2024 8:30 AM EDT Office Visit Gastroenterology [address] [place] [address] Keyla Bolanos MD [address] [place] [address] Morbid obesity with BMI of 40.0-44.9, adult ([facility]) [E66.01, Z68.41] Gastroenterology Comment on above: Morbid obesity with BMI of 40.0-44.9, ad ult ([facility]) [E66.01, Z68.41] Start: 11-11-2024 End: 11-11-2024 ambulatory 11/11/2024 1:00 PM EST Results Only [place] [facility] [address] [place] [address] [place] [facility] Start: 11-10-2024 End: 11-10-2024 ambulatory 11/10/2024 1:00 PM EST [facility] Patient Outreach Endocrinology [address] [place] [address] Carl Avila, Back Tender [employer] [address] [place] [address] Severe obesity (BMI >= 40) ([facility]) [E66.01] Endocrinology Comment on above: Severe obesity (BMI >= 40) ([facility]) [E66.01 ] Start: 11-08-2024 End: 11-08-2024 Patient encounter procedure Endocrine Surgery Comment on above: Thyroid nodules more than 5 cm ad has co mpressive symptoms INTAKE PENDING--Thyr oid nodules more than 5 cm ad has compressive symptoms Start: 11-02-2024 End: 02-01-2025 Thyrotropin [Units/volume] in Serum or Plasma THYROID STIMULATING HORMONE Lab Routine Multiple thyroid nodules Expected: 11/02/2024, Expires: 02/01/2025 [facility] Work Phone: Comment on above: Expected: 11/02/2024, Expires: Start: 10-05-2024 End: 10-05-2024 ambulatory 10/05/2024 2:00 PM EST [facility] Endocrinology [address] [place] [address] [place] [address] [place] [address] Severe obesity (BMI >= 40) (HCC) [E66.01] Endocrinology Comment on above: Severe obesity (BMI >= 40) (HCC) [E66.01 ] Start: 10-04-2024 End: 10-04-2024 Patient encounter procedure 10/04/2024 2:00 PM EST Office Visit Gastroenterology [address] [place] [address] Keyla Bolanos MD [address] [place] [address] Morbid obesity with BMI of 40.0-44.9, adult (HCC) [E66.01, Z68.41] Gastroenterology Comment on above: Morbid obesity with BMI of 40.0-44.9, ad ult (HCC) [E66.01, Z68.41] Start: 09-28-2024 End: 09-28-2024 Patient encounter procedure 09/28/2024 3:00 PM EST Office Visit Endocrinology [address] [place] [address] Jojo Child MD, PhD [address] [place] [address] My thyroid. Endocrinology Comment on above: My thyroid. Start: 09-05-2024 End: 09-05-2024 Patient encounter procedure 09/05/2024 1:00 PM EST Office Visit Endocrinology [address] [place], [place] [id number] Iris Lance, CAFETERIA HELPER.HIGH PRESSURE OPERATOR [address] [place] [address] Morbid obesity with BMI of 40.0-44.9, adult (HCC) [E66.01, Z68.41] Endocrinology Comment on above: Morbid obesity with BMI of 40.0-44.9, ad ult (HCC) [E66.01, Z68.41] Start: 08-31-2024 End: 08-31-2024 Patient encounter procedure 08/31/2024 3:20 PM EST Office Visit [facility] [place] [address] [place] [address] Aidan Montenegro MD [address] [place] [address] Return in about 4 weeks (around 08/29/2024) for INPERSON, dizziness. [facility] [place] Comment on above: Return in about 4 weeks (around ) for INPERSON, dizziness. Start: 08-10-2024 End: 08-10-2024 Patient encounter procedure 08/10/2024 4:30 PM EST Office Visit Pain Management [address] [place] [address] [place] [address] [address] Other chronic pain [G89.29] Pain Management Comment on above: Other chronic pain [G89.29] Start: 07-27-2024 End: 07-27-2024 Patient encounter procedure 07/27/2024 11:00 AM EST Office Visit [facility] Ophthalmology [address] [facility] [address] [place] [address] Elda Danielson MD [address] [place] [address] 3 month post op Ophthalmology Comment on above: 3 month post op Start: 07-22-2024 End: 07-22-2024 Follow-up encounter 07/22/2024 8:40 AM EDT [facility] Internal Medicine [place] [address] [place] [address] Aiadn Montenegro MD [address] [place] [address] 2-3 weeks follow up w/ PCP Re: RUQ Pain/Results [facility] [place] Comment on above: 2-3 weeks follow up w/ PCP Re: RUQ Pain/ Results Start: 06-29-2024 End: 06-29-2024 Patient encounter procedure 06/29/2024 7:30 AM EDT Appointment [facility] Radiology Ultrasound [address] [place] [address] RUQ pain [R10.11] [facility] Radiology Ultrasound Comment on above: RUQ pain [R10.11] Start: 06-26-2024 Screening for malignant neoplasm of breast Mammogram Screening [facility] Start: 06-23-2024 End: 09-22-2024 CBC panel - Blood by Automated count [facility] Comment on above: Expected: 06/23/2024, Expires: Start: 06-23-2024 End: 09-22-2024 Comprehensive metabolic 2000 panel - Serum or Plasma [facility] Comment on above: Expected: 06/23/2024, Expires: 5 Start: 06-23-2024 End: 09-22-2024 Lipase [Enzymatic activity/volume] in Serum or Plasma [facility] Comment on above: Expected: 06/23/2024, Expires: 5 Start: 06-23-2024 End: 06-23-2024 Patient encounter procedure 06/23/2024 1:00 PM EDT Office Visit [facility] [place] [address] [place] [address] Aidan Montenegro MD [address] [place] [address] Return in about 4 months (around 06/23/2024), or if symptoms worsen or fail to improve, for INPERSON, chornic pain. [facility] [place] Comment on above: Return in about 4 months (around 06/23/20), or if symptoms worsen or fail to improve, for INPERSON, chornic pain. Start: 05-25-2024 End: 05-25-2024 Patient encounter procedure 05/25/2024 11:00 AM EDT Office Visit [facility] Ophthalmology [address] [place] [address] Elda Danielson MD [address] [facility] [place] [address] 1 month post op Ophthalmology Comment on above: 1 month post op Start: 05-22-2024 Covid-19 Vaccine () Covid-19 Vaccine () [facility] Start: 05-22-2024 Influenza vaccination [facility] Start: 05-19-2024 End: 05-19-2024 Patient encounter procedure 05/19/2024 2:00 PM EDT Office Visit Neurology Pain [address] [facility] [place] [address] Regina Agrawal PA-C [address] [place] [address] follow up Neurology Pain Comment on above: follow up Start: 05-04-2024 End: 05-04-2024 Patient encounter procedure 05/04/2024 10:30 AM EDT Office Visit [facility] Ophthalmology [address] [place] [address] Elda Danielson MD [address] [facility] [place] [address] 1 week post op Ophthalmology Comment on above: 1 week post op Start: 04-26-2024 End: 04-26-2024 Admission to same day surgery center 04/26/2024 2:45 PM EDT - 04/26/2024 4:28 PM EDT Surgery Admitting [address] [place] [address] Elda Danielson MD [address] [place] [address] REPAIR STRABISMUS 1 HORIZONTAL MUSCLE Admitting Comment on above: REPAIR STRABISMUS 1 HORIZONTAL MUSCLE Start: 04-26-2024 End: 04-26-2024 Strabismus recession/rescj 1 hrzntl musc REPAIR STRABISMUS 1 HORIZONTAL MUSCLE Monocular exotropia with other noncomitancies, left eye 04/26/2024 2:45 PM EDT [facility] Start: 04-26-2024 Subsequent hospital visit by physician 04/26/2024 2:45 PM EDT Hospital Encounter Admitting [address] [place] [address] Elda Danielson MD [address] [place] [address] Monocular exotropia with other noncomitancies, 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] Admitting Comment on above: Monocular exotropia with other noncomita ncies, 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] Start: 04-26-2024 End: 04-26-2024 Admission to same day surgery center 04/26/2024 1:42 PM EDT - 04/26/2024 3:25 PM EDT Surgery Admitting [address] [place] [address] Elda Danielson MD [address] [place] [address] REPAIR STRABISMUS 1 HORIZONTAL MUSCLE Admitting Comment on above: REPAIR STRABISMUS 1 HORIZONTAL MUSCLE Start: 04-26-2024 End: 04-26-2024 Strabismus recession/rescj 1 hrzntl musc REPAIR STRABISMUS 1 HORIZONTAL MUSCLE Monocular exotropia with other noncomitancies, left eye 04/26/2024 1:42 PM EDT [facility] Start: 04-26-2024 Subsequent hospital visit by physician 04/26/2024 1:42 PM EDT Hospital Encounter Admitting [address] [place] [address] Elda Danielson MD [address] [place] [address] Monocular exotropia with other noncomitancies, 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] Admitting Comment on above: Monocular exotropia with other noncomita ncies, 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] Start: 04-22-2024 End: 04-22-2024 Patient encounter procedure 04/22/2024 9:40 AM EDT Office Visit Endocrinology [address] [place] [address] Jailene Dave MD [address] [place] [address] 5wk follow up Endocrinology Comment on above: 5wk follow up Start: 04-20-2024 End: 04-20-2024 Patient encounter procedure 04/20/2024 4:00 PM EDT Appointment Radiology [address] [place] [address] ct neck soft tissue w ivcon Radiology Comment on above: ct neck soft tissue w ivcon Start: 04-15-2024 End: 04-15-2024 Patient encounter procedure 04/15/2024 3:30 PM EDT Office Visit Neurology Pain [address] [place] [address] Regina Agrawal PA-C [address] [place] [address] Ketamine follow up Neurology Pain Comment on above: Ketamine follow up Start: 04-14-2024 End: 04-14-2024 ambulatory 04/14/2024 2:00 PM EDT [facility] [address] [place] [address] Haily Mayer, Therapist [address] [place] [address] Pain Pys [facility] Comment on above: Pain Pys Start: 04-08-2024 End: 04-08-2024 Patient encounter procedure 04/08/2024 11:00 AM EDT PAT Pre Anesthesia [address] [place] [address] 1, [address] [place] [address] pre op Pre Anesthesia Comment on above: pre op Start: 04-05-2024 End: 04-05-2024 Patient encounter procedure 04/05/2024 3:15 PM EDT Office Visit Otolaryngology [address] [place] [address] [place] [address] [place] [address] CONSULT TO ENT Otolaryngology Comment on above: CONSULT TO ENT Start: 03-31-2024 End: 03-31-2024 Patient encounter procedure 03/31/2024 3:00 PM EDT Office Visit Endocrinology [address] [place] [address] Jailene Dave MD [address] [place] [address] FNA thyroid nodules Endocrinology Comment on above: FNA thyroid nodules Start: 03-25-2024 End: 03-25-2024 Patient encounter procedure 03/25/2024 8:00 AM EDT Office Visit Endocrinology [address] [place] [address] Jailene Dave MD [address] [place] [address] Thyroid nodule [E04.1] Endocrinology Comment on above: Thyroid nodule [E04.1] Start: 03-18-2024 End: 03-18-2024 ambulatory 03/18/2024 12:45 PM EDT [facility] Neurology [address] [place] [address] [facility] Neurology Comment on above: [employer] Start: 03-17-2024 End: 03-17-2024 ambulatory 03/17/2024 12:45 PM EDT Infusion Center Neurology [address] [place] [address] [employer] [employer] Neurology Comment on above: [employer] Start: 03-16-2024 End: 03-16-2024 ambulatory 03/16/2024 12:45 PM EDT Infusion Center Neurology [address] [place] [address] [employer] [employer] Neurology Comment on above: [employer] Start: 03-15-2024 End: 03-15-2024 ambulatory 03/15/2024 12:45 PM EDT [facility]fusion Center Neurology [address] [place] [address] [employer] Neurology Comment on above: [employer] Start: 03-14-2024 End: 03-14-2024 ambulatory Endocrinology Comment on above: Thyroid Nodules [employer] [employer] Start: 03-04-2024 End: 03-04-2024 ambulatory 03/04/2024 10:15 AM EDT [facility] Brain Tumor [place] [address] [place] [address] Kaylene Daley PA-C [address] [place] [address] f/up after imaging [facility] Comment on above: f/up after imaging Start: 03-03-2024 End: 03-03-2024 Patient encounter procedure 03/03/2024 1:00 PM EDT Office Visit Neurology Pain [address] [place] [address] Regina Agrawal PA-C [address] [place] [address] Tethered cord (HCC) [Q06.8] Neurology Pain Comment on above: Tethered cord (HCC) [Q06.8] Start: 02-22-2024 End: 02-22-2024 Patient encounter procedure 02/22/2024 2:20 PM EDT Office Visit [facility] [place] [address] [place] [address] Aidan Montenegro MD [address] [place], [place] [id number] 4 week [facility] [place] Comment on above: 4 week Start: 02-22-2024 End: 05-23-2024 THYROID PEROXIDASE ANTIBODY [facility] Comment on above: Expected: 02/22/2024, Expires: Start: 02-22-2024 End: 05-23-2024 Thyrotropin [Units/volume] in Serum or Plasma [facility] Work Phone: Comment on above: Expected: 02/22/2024, Expires: Start: 02-22-2024 End: 05-23-2024 Thyroxine (T4) free [Mass/volume] in Serum or Plasma [facility] Comment on above: Expected: 02/22/2024, Expires: Start: 02-08-2024 End: 02-08-2024 Patient encounter procedure 02/08/2024 9:40 AM EDT Office Visit [address] [place] [phone] Henrique Rodríguez, CAFETERIA HELPER-HIGH PRESSURE OPERATOR [address] [place] [address] [address] [place] [address] [facility] Start: 02-03-2024 End: 02-03-2024 Patient encounter procedure 02/03/2024 4:00 PM EDT Appointment [facility] [address] [place], [place] [phone] Pain in thoracic spine [M54.6] MRI [facility] Comment on above: Pain in thoracic spine [M54.6] Start: 01-25-2024 End: 01-25-2024 Patient encounter procedure 01/25/2024 2:20 PM EDT Office Visit Internal Medicine [place] [address] [place] [address] Aidan Montenegro MD [address] [place], [place] [id number] Return for follow up with Dr. boo for lab review from outside labs, weight gain, pain med refill. [facility] [place] Comment on above: Return for follow up with Dr. boo for lab review from outside labs, weight gain, pain med refill. Start: 01-19-2024 End: 01-19-2024 Patient encounter procedure 01/19/2024 1:00 PM EDT Office Visit [facility] [address] [place] [address] Kaylene Daley PA-C [address] [place] [address] Tethered cord (HCC) [Q06.8] [facility] Comment on above: Tethered cord (HCC) [Q06.8] Start: 09-21-2023 Depression Assessment Depression Assessment [facility] Start: 05-22-2023 Covid-19 Vaccine ( season) Covid-19 Vaccine ( season) [facility] Start: 05-22-2023 Influenza vaccination Influenza Vaccine (#1) [facility] Start: 01-06-2023 DTaP/Tdap/Td Vaccines (2 - Td or Tdap) DTaP/Tdap/Td Vaccines (2 - Td or Tdap) [facility] Start: 06-10-2022 [facility] Work Phone: Start: 05-11-2020 Screening for malignant neoplasm of cervix Pap Testing [facility] Start: 12-30-2019 Screening for malignant neoplasm of breast Mammogram Screening [facility] Start: 2019 Screening for malignant neoplasm of breast [facility] Start: 12-29-2009 Screening for malignant neoplasm of cervix HPV Testing [facility] Start: 12-25-2009 Screening for malignant neoplasm of cervix HPV Testing [facility] Start: 12-25-2000 Screening for malignant neoplasm of cervix [facility] Start: 12-29-1998 Hepatitis B Vaccine (1 of 3 - 19+ 3-dose series) Hepatitis B Vaccine (1 of 3 - 19+ 3-dose series) [facility] Start: 12-25-1998 Hepatitis B Vaccine (1 of 3 - 19+ 3-dose series) Hepatitis B Vaccine (1 of 3 - 19+ 3-dose series) [facility] Start: 12-25-1998 Hepatitis B Vaccines (1 of 3 - 19+ 3-dose series) Hepatitis B Vaccines (1 of 3 - 19+ 3-dose series) [facility] Start: 12-29-1997 Hepatitis C screening Hepatitis C Screening [facility] Start: 12-25-1997 Anxiety Screening Anxiety Screening [facility] Start: 12-25-1997 Depression Screening Depression Screening [facility] Start: 12-25-1997 Diabetes mellitus screening Diabetes Screening [facility] Start: 12-25-1997 Hepatitis C screening Hepatitis C Screening [facility] Start: 12-29-1985 Pneumococcal vaccination Pneumococcal Vaccine (1 of 2 - PCV) [facility] Start: 12-25-1985 Pneumococcal vaccination Pneumococcal Vaccine (1 of 2 - PCV) [facility] Start: 12-25-1985 Pneumococcal Vaccine: Pediatrics (0 to 5 Years) and At-Risk Patients (6 to 64 Years) (1 of 2 - PCV) Pneumococcal Vaccine: Pediatrics (0 to 5 Years) and At-Risk Patients (6 to 64 Years) (1 of 2 - PCV) [facility] Start: 12-25-1980 MMR Vaccines (1 of 1 - Standard series) MMR Vaccines (1 of 1 - Standard series) [facility] Start: 1979 HIV screening HIV Screening [facility] Start: 1979 Lipid panel Lipid Panel [facility] Start: 1979 Yearly Adult Physical Yearly Adult Physical [facility] Bacteria identified in Urine by Culture URINE CULTURE Microbiology Routine Urinary frequency 01/25/2024 3:00 PM EDT [facility] Work Phone: End: 01-18-2024 Continuous Pulse oximetry, In Phase 1 Continuous Pulse oximetry, In Phase 1 Respiratory Care Routine Continuous until discontinued starting 01/18/2024 [facility] Service Area Work Phone: Comment on above: Continuous until discontinued starting 0 01/18/2024 End: 05-05-2025 CT Neck W contrast IV CT NECK SOFT TISSUE W IVCON Radiology Routine Multiple thyroid nodules 1 Occurrences starting 04/05/2024 until 05/05/2025 [facility] Work Phone: Comment on above: 1 Occurrences starting 04/05/2024 until 05/05/2025 CYTOLOGY NON-FRICTION PAINT MACHINE TENDER CYTOLOGY NON-GY N Lab Routine Thyroid nodule Ordered: 03/31/2024 [facility] Work Phone: Comment on above: Ordered: 03/31/2024 End: 09-02-2025 DBT Breast - bilateral screening HUDSON SCREENING W STEFFEN Radiology Routine Encounter for screening mammogram for breast cancer 1 Occurrences starting 08/03/2024 until 09/02/2025 [facility] Work Phone: Comment on above: 1 Occurrences starting 08/03/2024 until 09/02/2025 ENDO THYROID/LYMPH N ODE FNA ENDO THYROID/LYMPH NODE FNA Procedures Routine Thyroid nodule Ordered: 03/25/2024 [facility] Work Phone: Comment on above: Ordered: 03/25/2024 ENDO THYROID/LYMPH N ODE FNA ENDO THYROID/LYMPH NODE FNA Procedures Routine Thyroid nodule Ordered: 03/31/2024 [facility] Comment on above: Ordered: 03/31/2024 End: 02-17-2025 MR Cervical spine WO contrast MRI CERVICAL SPINE WO IVCON Radiology Routine Abnormal findings on diagnostic imaging of other parts of musculoskeletal system 1 Occurrences starting 01/19/2024 until 02/17/2025 [facility] Comment on above: 1 Occurrences starting 01/19/2024 until 02/17/2025 End: 02-17-2025 MR Lumbar spine WO contrast MRI LUMBAR SPINE WO IVCON Radiology Routine Encounter for observation for other suspected diseases and conditions ruled out 1 Occurrences starting 01/19/2024 until 02/17/2025 [facility] Work Phone: Comment on above: 1 Occurrences starting 01/19/2024 until 02/17/2025 End: 02-17-2025 MR Thoracic spine WO contrast MRI THORACIC SPINE WO IVCON Radiology Routine Pain in thoracic spine 1 Occurrences starting 01/19/2024 until 02/17/2025 [facility] Comment on above: 1 Occurrences starting 01/19/2024 until 02/17/2025 Patient Education [facility] Work Phone: Patient referral [facility] Work Phone: Strabismus recession/rescj 1 hrzntl musc REPAIR STRABISMUS 1 HORIZONTAL MUSCLE Monocular exotropia with other noncomitancies, left eye [facility] End: 07-23-2025 US Abdomen RUQ US ABD RIGHT UPPER QUADRANT Radiology Routine RUQ pain 1 Occurrences starting 06/23/2024 until 07/23/2025 [facility] Work Phone: Comment on above: 1 Occurrences starting 06/23/2024 until 07/23/2025 US Abdomen RUQ US ABD RIGHT UPP ER QUADRANT Radiology Routine RUQ pain 06/29/2024 8:16 AM EDT [facility] Work Phone: US Thyroid gland US THYROID/PARA THYROID Radiology Routine Nontoxic single thyroid nodule 02/08/2024 12:37 PM EDT [facility] Work Phone: End: 04-16-2026 US Thyroid gland US THYROID/PARATHYROID Radiology Routine Thyroid nodule 1 Occurrences starting 03/17/2025 until 04/16/2026 [facility] Work Phone: Comment on above: 1 Occurrences starting 03/17/2025 until 04/16/2026 End: 01-05-2025 XR Lumbar spine 3 Views XR LUMBAR GENERAL 3V AP/LAT/L5-S1 Radiology Routine Tethered cord (HCC) Hx of spina bifida Chronic bilateral low back pain, unspecified whether sciatica present H/O laminectomy Chronic pain syndrome 1 Occurrences starting 12/07/2023 until 01/05/2025 [facility] Work Phone: Comment on above: 1 Occurrences starting 12/07/2023 until 01/05/2025 XR Lumbar spine 3 Views XR LUMBA R GENERAL 3V AP/LAT/L5-S1 Radiology Routine Tethered cord (HCC) Hx of spina bifida Chronic bilateral low back pain, unspecified whether sciatica present H/O laminectomy Chronic pain syndrome 01/19/2024 11:01 AM EDT [facility] Work Phone: [facility] Immunizations Immunization Date Immunization Notes Care Provider Fa cility 02-16-2023 tetanus toxoid, redu thierry diphtheria toxoid, and acellular pertussis vaccine, adsorbed Aidan Forrester MD Work Phone: [facility] 01-06-2013 tetanus toxoid, redu thierry diphtheria toxoid, and acellular pertussis vaccine, adsorbed Frank Gutierrez OD Work Phone: [facility] 09-30-2012 influenza virus vaccine, unspecified formulation Frank Gutierrez OD Work Phone: [facility] 04-27-2011 TD(adult) unspecifie d formulation Aidan Forrseter MD Work Phone: [facility] Payers Date Payer Category Payer Self-pay [id number] 2022 Medicaid [id number] 2008 Unknown 1979 Unknown [id number] 2.16.8 [id number] 1979 Unknown [id number] 2.16.84 [id number] 1979 Unknown [id number] 2.16.84 [id number] 1979 Unknown [id number] 2.16.8 [id number] 1979 Unknown [id number] 2.16.8 [id number] 1979 Unknown [id number] 2.16.8 [id number] 1979 Unknown [id number] 2.16.8 [id number] 1959 Unknown [id number] 2.1 [id number] 1959 Unknown [id number] Unknown [id number] 2.16.8 [id number] Social History Date Type Detail Facility Unknown if ever smoked [facility] Other Start: 12-07-2018 End: 12-01-2023 Sex Assigned At [facility] Start: 09-21-2003 End: 06-10-2022 Tobacco smoking status NHIS Smoker (finding) [facility] Start: 1980 Sex Assigned At Female [facility] Start: 05-18-2023 Tobacco smoking stat us NHIS Current some day smoker [facility] Start: 05-26-2017 End: 05-19-2024 Tobacco smoking status NHIS Smokes tobacco daily [facility] Start: 03-21-1995 End: 03-21-2015 History of tobacco use Cigarette Smoker [facility] Start: 05-26-2017 End: 12-01-2023 Cigarettes smoked current (pack per day) - Reported 1 [facility] Start: 05-26-2017 End: 08-31-2024 Tobacco use and exposure Smokeless tobacco non-user [facility] Start: 12-01-2023 End: 01-25-2024 Alcohol intake Current non-drinker of alcohol (finding) [facility] Adult Depression Screening Assessment 6 [facility] Start: 1980 End: 1980 Sex Assigned At Not on file [facility] Has the [employer], or [employer] threatened to shut off services in your home in past 12Mo Yes [facility] Are you now , , , , never or living with a partner? [facility] How often to you hav e a drink containing alcohol? Monthly or less [facility] How many standard drinks containing alcohol do you have on a typical day? 3 or 4 [facility] How often do you hav e 6 or more drinks on 1 occasion? Never [facility] How hard is it for y ou to pay for the very basics like food, housing, medical care, and heating Somewhat hard [facility] Do you feel stress - tense, restless, nervous, or anxious, or unable to sleep at night because your mind is troubled all the time - these days [OSQ] Very much [facility] (I/We) worried whecait er (my/our) food would run out before (I/we) got money to buy more. Sometimes true [facility] The food that (I/we) bought just didn't last, and (I/we) didn't have money to get more. Never true [facility] In the past 12 month s, was there a time when you were not able to pay the mortgage or rent on time? No [facility] Start: 01-18-2024 End: 02-08-2024 Alcoholic beverage intake Ex-drinker (finding) [facility] Work Phone: Start: 01-08-2024 End: 02-08-2024 Exposure to SARS-CoV-2 (event) Not sure [facility] Work Phone: Start: 04-08-2024 End: 03-17-2025 Alcohol intake Current drinker of alcohol (finding) [facility] Start: 04-08-2024 Alcohol Comment occasional- 3x a yea r [facility] Start: 08-01-2024 Alcohol Comment 1 day/month 1 drink. [facility] Start: 08-31-2024 Tobacco smoking stat us PAIS Ex-smoker [facility] Start: 12-14-2024 Alcohol Comment once every 6 months [facility] Goals Date Patient Goal Desired Activity /State Functional Status Date Assessment Result Facility 06-19-2017 Are you deaf, or do you have serious difficulty hearing No 06/19/2017 4:35 PM Norma Merritt APRN.[place] No [facility] Work Phone: 06-19-2017 Are you blind, or do you have serious difficulty seeing, even when wearing glasses No 06/19/2017 4:35 PM Norma Merritt APRN.CNP No [facility] 06-19-2017 Do you have serious difficulty walking or climbing stairs No 06/19/2017 4:35 PM Norma Merritt APRN.CNP No [facility] 06-19-2017 Do you have difficul ty dressing or bathing No 06/19/2017 4:35 PM Norma Merritt APRN.[place] No [facility] 06-19-2017 Because of a physica l, mental, or emotional condition, do you have difficulty doing errands alone such as visiting a physician's office or shopping No 06/19/2017 4:35 PM EDT Norma Pino APRN.HIGH PRESSURE OPERATOR No [facility] Mental Status Date Assessment Result Facility 06-19-2017 Because of a physica l, mental, or emotional condition, do you have serious difficulty concentrating, remembering, or making decisions No 06/19/2017 4:35 PM EDT Norma Pino APRN.HIGH PRESSURE OPERATOR No [facility] Clinical Notes 10-25-2003 to 03-30-2025 Wilma Tong - 03/30/2025 4:55 PM EDTTelephone Encounter - Trenton Waggoner, RN - 03/23/2025 10:11 AM EDTTelephone Encounter - Trenton Waggoner RN - 03/23/2025 10:11 AM EDTPatient Instructions Note Date & Type Note Facility 03-30-2025 Note HNO ID: [id number] Author: ?, ?, ? Service: ? Author Type: ? Type: Progress Notes Filed: 03/30/2025 16:55 Note Text: POPULATION HEALTH NAVIGATION OUTREACH Action/[facility] Support: Called pt to schedule an appt in Pain Management. PT is being referred to an outside provider. Reason for Outreach Care Gap/HCC or Scheduling Wellness Visits Care Gaps due: N/A Patient Contacted: Spoke to patient/parent/or legal guardian Patient identified by name and : Yes Care Gap/HCC/Scheduling Wellness actions taken: Patient declined: Patient Declines Navigation Scheduling / Outreach Navigation Signature: Wilma Tong March 30, 2025 4:55 PM [facility] 03-30-2025 History of Present illness Narrative POPULATION HEALTH NAVIGATION OUTREACH Action/[facility] Support: Called pt to schedule an appt in Pain Management. PT is being referred to an outside provider. Reason for Outreach Care Gap/HCC or Scheduling Wellness Visits Care Gaps due: N/A Patient Contacted: Spoke to patient/parent/or legal guardian Patient identified by name and : Yes Care Gap/HCC/Scheduling Wellness actions taken: Patient declined: Patient Declines Navigation Scheduling / Outreach Navigation Signature: Wilma Tong March 30, 2025 4:55 PM documented in this encounter [facility] 03-30-2025 Note Patient Outreach (NE TNAV) KARLENE TOM ([id number]) 1980 F Date Time Provider Department 03/30/25 NO PCP (ALISTAIR) [facility] During your visit today, we recorded the following information about you: Wilma Tong 03/30/2025 4:55 PM Signed POPULATION HEALTH NAVIGATION OUTREACH Action/[facility] Support: Called pt to schedule an appt in Pain Management. PT is being referred to an outside provider. Reason for Outreach Care Gap/HCC or Scheduling Wellness Visits Care Gaps due: N/A Patient Contacted: Spoke to patient/parent/or legal guardian Patient identified by name and : Yes Care Gap/HCC/Scheduling Wellness actions taken: Patient declined: Patient Declines Navigation Scheduling / Outreach Navigation Signature: Wilma Tong March 30, 2025 4:55 PM Allergies As of Date: 03/30/2025 Noted Allergy Reaction AMOXICILLIN 06/17/2024 4 - Hives LATEX 11/15/2007 10 - Anaphylaxis CIPROFLOXACIN 05/18/2023 4 - Hives 9 - Itching MORPHINE 05/26/2017 8 - GI Upset NEOSPORIN ([id number]* 2 2 - Rash SILVER SULFADIAZINE 01/18/2024 14 - Other: See Comments ZINC OXIDE 10/07/2011 2 - Rash Date Reviewed: 03/17/2025 Reviewed by: Cammie Briceno LPN - Fully Assessed Prescriptions as of 03/30/2025 - pregabalin (LYRICA) 75 mg capsule Take 1 capsule by mouth three times a day for 30 days. - cholecalciferol, vitamin D3, (VITAMIN D3 ORAL) Take by mouth. - dulaglutide (TRULICITY) 1.5 mg/0.5 mL pen injector Inject 1.5 mg subcutaneously one time a week. - cyclobenzaprine (FLEXERIL) 10 mg tablet Take 10 mg by mouth three times a day as needed. - ondansetron orally disintegrating (ZOFRAN ODT) 4 mg disintegrating tablet Take 4 mg by mouth every 8 hours as needed for nausea/vomiting. - IBUPROFEN (MOTRIN ORAL) Take by mouth. Problem List As Of Date 03/30/2025 Noted Resolved Unspecified site of sprain and [...] G89.29] 10/03/2004 Multiple thyroid nodules [E04.2] 04/08/2024 Difficult intravenous access [Z78.9] 12/14/2024 Encounter Status:Closed by WILMA TONG on 03/30/25 [facility] 03-23-2025 Telephone encounter Note 03/23/25 1010H Left pt a voice mail asking if she had made a decision if she would like to proceed with surgery. I have given her the office number or she can send a [employer] message with her decision. Trenton Waggoner RN [facility] 03-23-2025 Miscellaneous Notes 03/23/25 1010H Left pt a voice mail asking if she had made a decision if she would like to proceed with surgery. I have given her the office number or she can send a [email or web address] message with her decision. Trenton Waggoner RN 03/14/25 1405 H Called patient and informed her that the reason Dr. Vo is recommending surgery is because she was having compressive symptoms from her 5.5 cm thyroid nodule last time she was seen at the office. She stated that she no longer have that. Discussed what thyroglobulin is and her normal TSH level. I answered her questions. She has an appointment with her PCP this Thursday and will also ask for their opinion. She will confirm if she will proceed with surgery after her PCP appointment. She was thankful for the call. Trenton Waggoner RN Patient called because she wants more information about her thyroidectomy. She is confused as to why her Dr informed her that her blood work was fine but she still needs the surgery. Patient is feeling ambivalent about having the surgery. She is unsure if the surgery is necessary. Patient is also concerned about the coordination with her liver doctor and scheduled liver surgery in April. Patient is anxious. Patient has many questions related to diet, such as significant weight gain and sugar intake. Patient requests a telephone call to discuss the pros/cons of having the surgery. documented in this encounter [facility] 03-22-2025 Note HNO ID: [id number] Author: ALEXANDER GALLEGOS MD Service: ? Author Type: Physician Type: Progress Notes Filed: 03/22/2025 14:13 Note Text: This note was created using [employer]. Subjective Karlene oTm is a 44 year old female. The history is provided by the patient. Back Pain This is a recurrent problem. The current episode started more than 1 week ago. The problem occurs daily. The problem has not changed since onset.The pain is associated with no known injury. The pain is present in the lumbar spine. The quality of the pain is described as shooting. The pain radiates to the right thigh, right foot and right knee. The symptoms are aggravated by bending and certain positions. The pain is Worse during the day. Stiffness is present All day. Patient is also here to establish care with us, she is active hyperlipidemia, hyperglycemia and vitamin D deficiency and Thyroid nodules. Patient does feel tired sometimes during the day, sometimes unable to her activities due to fatigue. She denies any chest pain or shortness of breath. Review of Systems Constitutional: Positive for fatigue. Musculoskeletal: Positive for back pain. All other systems reviewed and are negative. Past Medical history: PAST MEDICAL HISTORY Diagnosis Date Abnormal Pap smear of cervix LEEP Difficult intravenous access 12/14/2024 History of urinary self-catheterization 05/26/2017 ISC Morbid obesity (HCC) depression Spina bifida (HCC) Past Surgical History: PAST SURGICAL HISTORY Procedure Laterality Date COLPOSCOPY CERVIX UPPER/ADJACENT VAGINA 05/22/2004 Colposcopy CONIZATION CERVIX W/WO [facility] RPR ELTRD EXC 07/22/2004 LEEP-Cervix PAST SURGICAL HISTORY OF 04/21/2006 r leg surgery PAST SURGICAL HISTORY OF 09/21/2006 pins removed - r leg PAST SURGICAL HISTORY OF 2002 or 2003 stomach revision PAST SURGICAL HISTORY OF myelomeningocele and repair of tethered cord (1979,1994, 2016) PAST SURGICAL HISTORY OF 1985 bladder surgery PAST SURGICAL HISTORY OF Eye surgery Family History: FAMILY HISTORY Problem Relation Age of Onset Cancer Mother skin other (macular degenertion) Mother Mental illness Mother Cancer Father bladder Hypertension Father other (pre diabetes) Father other (pe) Father Ischemic Heart Disease Father Breast Cancer Paternal Grandmother Anesthesia No Family History Social History: Social History Tobacco Use Smoking status: Former Average packs/day: 1 pack/day for 20.8 years (20.8 ttl pk-yrs) Types: Cigarettes Start date: 2003 Smokeless tobacco: Never Vaping Use Vaping status: Never Used Substance Use Topics Alcohol use: Yes Comment: once every 6 months Drug use: Yes Types: Marijuana Comment: occasional gummies- once every few months. Current Medications: pregabalin (LYRICA) 75 mg capsule, Take 1 capsule by mouth three times a day for 30 days., Disp: 90 capsule, Rfl: 0 traMADol (ULTRAM) 50 mg tablet, Take 1 tablet by mouth three times a day for 30 days., Disp: 90 tablet, Rfl: 0 cholecalciferol, vitamin D3, (VITAMIN D3 ORAL), Take by mouth., Disp: , Rfl: cyclobenzaprine (FLEXERIL) 10 mg tablet, Take 10 mg by mouth three times a day as needed., Disp: , Rfl: ondansetron orally disintegrating (ZOFRAN ODT) 4 mg disintegrating tablet, Take 4 mg by mouth every 8 hours as needed for nausea/vomiting., Disp: , Rfl: IBUPROFEN (MOTRIN ORAL), Take by mouth., Disp: , Rfl: dulaglutide (TRULICITY) 1.5 mg/0.5 mL pen injector, Inject 1.5 mg subcutaneously one time a week. (Patient not taking: Reported on 12/14/2024), Disp: 2 mL, Rfl: 2 No facility-administered encounter medications on file as of 03/17/2025. Allergies: ALLERGIES Allergen Reactions Amoxicillin Hives Latex Anaphylaxis Ciprofloxacin Hives, Itching Morphine GI Upset Neosporin [Neomycin* Rash Silver Sulfadiazine Other: See Comments Zinc Oxide Rash Vitals: BP 108/73 Pulse 78 Temp (Src) 99.4 (Temporal) Ht 5' 7 (1.70m) Wt 282 lb 13.6 oz (128.3kg) SpO2 99% LMP 02/28/2025 BMI 44.29 kg/(m2). Objective BP 108/73 Pulse 78 Temp 37.4 ?C (99.4 ?F) (Temporal) Ht 170.2 cm (5' 7 ) Wt 128.3 kg (282 lb 13.6 oz) LMP 02/28/2025 (Exact Date) SpO2 99% BMI 44.30 kg/m? Physical Exam Constitutional: General: She is not in acute distress. HENT: Head: Normocephalic and atraumatic. Eyes: Conjunctiva/sclera: Conjunctivae normal. Pupils: Pupils are equal, round, and reactive to light. Cardiovascular: Rate and Rhythm: Normal rate and regular rhythm. Heart sounds: Normal heart sounds. No murmur heard. No friction rub. No gallop. Pulmonary: Effort: Pulmonary effort is normal. No respiratory distress. Breath sounds: Normal breath sounds. No wheezing or rales. Chest: Chest wall: No tenderness. Abdominal: General: Bowel sounds are normal. There is no distension. Palpations: Abdomen is soft. There is no mass. Tenderness: The (more content not included)... [facility] 03-22-2025 History of Present illness Narrative This note was created using [employer]. Subjective Karlene Tom is a 44 year old female. The history is provided by the patient. Back Pain This is a recurrent problem. The current episode started more than 1 week ago. The problem occurs daily. The problem has not changed since onset.The pain is associated with no known injury. The pain is present in the lumbar spine. The quality of the pain is described as shooting. The pain radiates to the right thigh, right foot and right knee. The symptoms are aggravated by bending and certain positions. The pain is Worse during the day. Stiffness is present All day. Patient is also here to establish care with us, she is active hyperlipidemia, hyperglycemia and vitamin D deficiency and Thyroid nodules. Patient does feel tired sometimes during the day, sometimes unable to her activities due to fatigue. She denies any chest pain or shortness of breath. Review of Systems Constitutional: Positive for fatigue. Musculoskeletal: Positive for back pain. All other systems reviewed and are negative. Past Medical history: PAST MEDICAL HISTORY Diagnosis Date Abnormal Pap smear of cervix LEEP Difficult intravenous access 12/14/2024 History of urinary self-catheterization 05/26/2017 ISC Morbid obesity (HCC) depression Spina bifida (HCC) Past Surgical History: PAST SURGICAL HISTORY Procedure Laterality Date COLPOSCOPY [...] cord (1979,1994, 2016) PAST SURGICAL HISTORY OF 1985 bladder surgery PAST SURGICAL HISTORY OF Eye surgery Family History: FAMILY HISTORY Problem Relation Age of Onset Cancer Mother skin other (macular degenertion) Mother Mental illness Mother Cancer Father bladder Hypertension Father other (pre diabetes) Father other (pe) Father Ischemic Heart Disease Father Breast Cancer Paternal Grandmother Anesthesia No Family History Social History: Social History Tobacco Use Smoking status: Former Average packs/day: 1 pack/day for 20.8 years (20.8 ttl pk-yrs) Types: Cigarettes Start date: 2003 Smokeless tobacco: Never Vaping Use Vaping status: Never Used Substance Use Topics Alcohol use: Yes Comment: once every 6 months Drug use: Yes Types: Marijuana Comment: occasional gummies- once every few months. Current Medications: pregabalin (LYRICA) 75 mg capsule, Take 1 capsule by mouth three times a day for 30 days., Disp: 90 capsule, Rfl: 0 traMADol (ULTRAM) 50 mg tablet, Take 1 tablet by mouth three times a day for 30 days., Disp: 90 tablet, Rfl: 0 cholecalciferol, vitamin D3, (VITAMIN D3 ORAL), Take by mouth., Disp: , Rfl: cyclobenzaprine (FLEXERIL) 10 mg tablet, Take 10 mg by mouth three times a day as needed., Disp: , Rfl: ondansetron orally disintegrating (ZOFRAN ODT) 4 mg disintegrating tablet, Take 4 mg by mouth every 8 hours as needed for nausea/vomiting., Disp: , Rfl: IBUPROFEN (MOTRIN ORAL), Take by mouth., Disp: , Rfl: dulaglutide (TRULICITY) 1.5 mg/0.5 mL pen injector, Inject 1.5 mg subcutaneously one time a week. (Patient not taking: Reported on 12/14/2024), Disp: 2 mL, Rfl: 2 No facility-administered encounter medications on file as of 03/17/2025. Allergies: ALLERGIES Allergen Reactions Amoxicillin Hives Latex Anaphylaxis Ciprofloxacin Hives, Itching Morphine GI Upset Neosporin [Neomycin* Rash Silver Sulfadiazine Other: See Comments Zinc Oxide Rash Vitals: BP 108/73 Pulse 78 Temp (Src) 99.4 (Temporal) Ht 5' 7 (1.70m) Wt 282 lb 13.6 oz (128.3kg) SpO2 99% LMP 02/28/2025 BMI 44.29 kg/(m^2). Objective BP 108/73 Pulse 78 Temp 37.4 C (99.4 F) (Temporal) Ht 170.2 cm (5' 7 ) Wt 128.3 kg (282 lb 13.6 oz) LMP 02/28/2025 (Exact Date) SpO2 99% BMI 44.30 kg/m Physical Exam Constitutional: General: She is not in acute distress. HENT: Head: Normocephalic and atraumatic. Eyes: Conjunctiva/sclera: Conjunctivae normal. Pupils: Pupils are equal, round, and reactive to light. Cardiovascular: Rate and Rhythm: Normal rate and regular rhythm. Heart sounds: Normal heart sounds. No murmur heard. No friction rub. No gallop. Pulmonary: Effort: Pulmonary effort is normal. No respiratory distress. Breath sounds: Normal breath sounds. No wheezing or rales. Chest: Chest wall: No tenderness. Abdominal: General: Bowel sounds are normal. There is no distension. Palpations: Abdomen is soft. There is no mass. Tenderness: There is no abdominal tenderness. There is no guarding or rebound. Musculoskeletal: Cervical back: Normal range of motion and neck supple. Neurological: General: No focal deficit present. Mental Status: She is alert and oriented to person, place, and time. Psychiatric: Mood and Affect: Mood normal. Behavior: Behavior normal. Assessment and Plan ASSESSMENT/PLAN: 1. Chronic right-sided low back pain with right-sided sciatica - ICD9: 724.2, 724.3, 338.29, ICD10: M54.41, G89.29 (primary diagnosis) - CONSULT TO PAIN MGT 2. Thyroid nodule - ICD9: 241.0, ICD10: E04.1 - US THYROID/PARATHYROID - THYROID STIMULATING HORMONE - T3, FREE - T4 FREE/FREE THYROXINE 3. Mixed hyperlipidemia - ICD9: 272.2, ICD10: E78.2 Emphasized diet and exercise. Discussed risk, benefits, and alternatives of medicines. Explained importance of Risk Factor Modification. Emphasized importance of compliance for better outcomes. - LIPID PANEL, FASTING 4. Chronic fatigue - ICD9: 780.79, ICD10: R53.82 - COMPLETE BLOOD COUNT AND DIFFERENTIAL - COMPREHENSIVE METABOLIC PANEL - THYROID STIMULATING HORMONE - T3, FREE - T4 FREE/FREE THYROXINE 5. Vitamin D deficiency - ICD9: 268.9, ICD10: E55.9 - VITAMIN D 25 HYDROXY 6. Hyperglycemia - ICD9: 790.29, ICD10: R73.9 - HEMOGLOBIN A1C Alexander Gallegos MD documented in this encounter [facility] 03-14-2025 Telephone encounter Note 03/14/25 1405 H Called patient and informed her that the reason Dr. Vo is recommending surgery is because she was having compressive symptoms from her 5.5 cm thyroid nodule last time she was seen at the office. She stated that she no longer have that. Discussed what thyroglobulin is and her normal TSH level. I answered her questions. She has an appointment with her PCP this Thursday and will also ask for their opinion. She will confirm if she will proceed with surgery after her PCP appointment. She was thankful for the call. Trenton Waggoner RN [facility] 03-14-2025 Telephone encounter Note Patient called because she wants more information about her thyroidectomy. She is confused as to why her Dr informed her that her blood work was fine but she still needs the surgery. Patient is feeling ambivalent about having the surgery. She is unsure if the surgery is necessary. Patient is also concerned about the coordination with her liver doctor and scheduled liver surgery in April. Patient is anxious. Patient has many questions related to diet, such as significant weight gain and sugar intake. Patient requests a telephone call to discuss the pros/cons of having the surgery. [facility] 02-22-2025 Telephone encounter Note The following approved medication requests have been transmitted electronically. Requested Prescriptions Signed Prescriptions Disp Refills pregabalin (LYRICA) 75 mg capsule 90 capsule 0 Sig: Take 1 capsule by mouth three times a day for 30 days. Authorizing Provider: TRACIE WILLIAMSON traMADol (ULTRAM) 50 mg tablet 90 tablet 0 Sig: Take 1 tablet by mouth three times a day for 30 days. Authorizing Provider: TRACIE WILLIAMSON APRN.[place] 02-22-2025 Miscellaneous Notes The following approved medication requests have been transmitted electronically. Requested Prescriptions Signed Prescriptions Disp Refills pregabalin (LYRICA) 75 mg capsule 90 capsule 0 Sig: Take 1 capsule by mouth three times a day for 30 days. Authorizing Provider: TRACIE WILLIAMSON traMADol (ULTRAM) 50 mg tablet 90 tablet 0 Sig: Take 1 tablet by mouth three times a day for 30 days. Authorizing Provider: TRACIE WILLIAMSON APRN.CNP Patient Scheduled to establish care with Alexander Gallegos MD on 03/17/25 at 3:45 PM. Message received from provider. Will provide one month refill. Must be seen in March for next refill if not yet established with new PCP. Call placed to pt per provider request. Pt states she is looking for a refill of her Tramadol and Lyrica. Pt states she has spina bifida. Pt also asked how to go about finding a new primary. Advised will ask my scheduling team contact her to arrange a new PCP appointment. Pt verbalized understanding. No further questions. Chart reviewed in light of upcoming appt today Traveling a great distance from [facility] for medication refill as pcp left Can you call her to see what she needs and if a refill can she request on mychart? I have not seen her in over a year so unknown what the history is with her medication, but can try to refill if able without a big trip to ask for a refill documented in this encounter [facility] 02-22-2025 Telephone encounter Note Patient Scheduled to establish care with Alexander Gallegos MD on 03/17/25 at 3:45 PM. [facility] 02-22-2025 Telephone encounter Note Message received from provider. Will provide one month refill. Must be seen in March for next refill if not yet established with new PCP. [facility] 02-22-2025 Telephone encounter Note Call placed to pt per provider request. Pt states she is looking for a refill of her Tramadol and Lyrica. Pt states she has spina bifida. Pt also asked how to go about finding a new primary. Advised will ask my scheduling team contact her to arrange a new PCP appointment. Pt verbalized understanding. No further questions. [facility] 02-22-2025 Telephone encounter Note Chart reviewed in light of upcoming appt today Traveling a great distance from [facility] for medication refill as pcp left Can you call her to see what she needs and if a refill can she request on mychart? I have not seen her in over a year so unknown what the history is with her medication, but can try to refill if able without a big trip to ask for a refill [facility] 12-23-2024 Telephone encounter Note Good morning, I evaluated Ms. Karlene Tom in [facility], she is scheduled for surgery on 12/28. She self-catheterizes due to neurogenic bladder and was complaining of abnormal urine odor and change in color. Urine culture grew E.coli, I prescribed the patient Macrobid. Please let me know if you have any questions or concerns. Rod Randhawa PA-C [facility] 12-23-2024 Miscellaneous Notes Good morning, I evaluated Ms. Karlene Tom in [facility], she is scheduled for surgery on 12/28. She self-catheterizes due to neurogenic bladder and was complaining of abnormal urine odor and change in color. Urine culture grew E.coli, I prescribed the patient Macrobid. Please let me know if you have any questions or concerns. Rod Randhawa PA-C [facility] documented in this encounter [facility] 12-21-2024 Telephone encounter Note Received request for refill of the following medications: Requested Prescriptions Pending Prescriptions Disp Refills pregabalin (LYRICA) 75 mg capsule [Pharmacy Med Name: PREGABALIN 75 MG CAPSULE] 84 capsule 1 Sig: Take 1 capsule by mouth three times a day. Patient requested a 30 day refill. Pharmacy verified and updated accordingly. Patient was last seen by PCP team/provider: 12/20/24. Upcoming appointment scheduled: not scheduled. Please review and advise Christianne Olmstead MA Routed to provider for review [facility] 12-21-2024 Miscellaneous Notes Received request for refill of the following medications: Requested Prescriptions Pending Prescriptions Disp Refills pregabalin (LYRICA) 75 mg capsule [Pharmacy Med Name: PREGABALIN 75 MG CAPSULE] 84 capsule 1 Sig: Take 1 capsule by mouth three times a day. Patient requested a 30 day refill. Pharmacy verified and updated accordingly. Patient was last seen by PCP team/provider: 12/20/24. Upcoming appointment scheduled: not scheduled. Please review and advise Christianne Olmstead MA Routed to provider for review documented in this encounter [facility] 12-20-2024 Note HNO ID: [id number] Author: AIDAN MONTENEGRO MD Service: ? Author Type: Physician Type: Progress Notes Filed: 12/20/2024 17:12 Note Text: Karlene Tom is a 43 year old female Chief complaint: Same Day Appointment (Mandatory medicine visit) Subjective HPI: Update since last visit: H/o chronic pain in low back pain and leg pain chronic, treated with pregabalin 75 mg 3 times daily and tramadol 50 mg TID, Prior treatment with ketamine once. Follow up neurology and neurosurgery. H/o neurogenic bladder had botox injection last week. Prescribed ciprofloxacin and reports had mouth and body itching Follow up Urology C/o changes in smell and frequently. Had visit for preanesthesia who recommended urine tests to r/o urine infection prior surgery before thyroidectomy recommended for thyroid nodules causing compressing symptoms referred for surgery Frequent urine infections about 6 UTI in past 1 year. Planning to change urologist to [facility] PMDP: 11/22/2024 11/22/2024 1 Tramadol Hcl 50 Mg Tablet 84.00 28 Ra Joe [id number] [place] ([id number]) 0 30.00 MME Medicaid [place] 11/18/2024 10/17/2024 1 Pregabalin 75 Mg Capsule 84.00 28 Ra Joe [id number] [place] ([id number]) 1 1.51 LME Medicaid [place] History: H/o spina bifida and tethered cord with myelomeningocele repair at and reviion on 1994 and 2016, complicated with neurogenic bowel and bladder. Follow up Neurology, last appointment 01/19/24 Smoke: 1 ppd for 30 years, quitting, last cig 07/21/24 Currently using vaping, trying to quit as week Thyroid nodules with tenderness followed by endocrinology. Review of Systems Constitutional: Negative for fever and unexpected weight change. Respiratory: Negative for cough and shortness of breath. Cardiovascular: Negative for chest pain. Gastrointestinal: Negative for abdominal pain, nausea and vomiting. Musculoskeletal: Negative for arthralgias. Neurological: Negative for headaches. Objective BP 122/73 (BP Position: Sitting) Pulse 74 Ht 170.2 cm (5' 7 ) Wt 127.8 kg (281 lb 12 oz) LMP 11/27/2024 (Exact Date) SpO2 100% BMI 44.13 kg/m? BMI Readings from Last 3 Encounters: 12/20/24 : 44.13 kg/m? 12/14/24 : 43.07 kg/m? 09/08/24 : 42.86 kg/m? Last Wt 12/20/24 : 127.8 kg (281 lb 12 oz) 12/14/24 : 124.7 kg (275 lb) 09/08/24 : 126.9 kg (279 lb 14 oz) Last BP 12/20/24 : 122/73 09/08/24 : 120/72 08/31/24 : 128/84 Physical Exam Constitutional: Appearance: Normal appearance. HENT: Head: Atraumatic. Pulmonary: Effort: Pulmonary effort is normal. Neurological: General: No focal deficit present. Mental Status: She is alert. Mental status is at baseline. Psychiatric: Mood and Affect: Mood normal. Lab Results Component Value Date HBA1C 5.5 09/08/2024 HBA0=Estimated average glucose Lab Results Component Value Date CHOL 172 04/28/2006 CHOL 178.0 11/21/2004 HDL 46 04/28/2006 HDL 51 11/21/2004 LDL 104 04/28/2006 LDL 105 11/21/2004 TG 111 04/28/2006 TG 111 11/21/2004 Lab Results Component Value Date GLUC 74 11/24/2024 BUN 13 11/24/2024 CREAT 0.72 11/24/2024 NA 138 11/24/2024 K 4.0 11/24/2024 CHLOR 106 11/24/2024 CO2 27 11/24/2024 TPROT 6.9 06/23/2024 ALB 4.3 06/23/2024 CA 8.8 11/24/2024 ALKPHOS 72 06/23/2024 TBILI 0.4 06/23/2024 AST 21 06/23/2024 ALT 25 06/23/2024 No results found for: PCRAT , UALBCR PCRAT=Protein Creatinine Ratio; UABCR=Albumin Creat Ratio Lab Results Component Value Date TSH 1.620 11/24/2024 TSH 1.370 02/22/2024 TSH 2.590 06/11/2017 FREET4 1.2 02/22/2024 FREET4 1.16 11/21/2004 TPOAB <3.0 02/22/2024 07/01/24 US liver: Hepatic steatosis. Impression/Recommendations Social History Social History Narrative Not on file Karlene Tom is a 43 year old female - Obesity Body mass index is 44.13 kg/m?. Referred to endocrinology weight program on 06/2024 - RUQ due to Dyspepsia improving on psyllium and omeprazole. - Fatty liver noted on RUQ US. Risk factors: obesity, smoking, heavy alcohol use in the past. Alcohol: 1 day/month 1 drink. Refer to hepatology on 06/2024 - Every day smoker, 1 ppd for 30 years, Trying to quit, changed to nicotine vape last cig 07/21/24 Currently using vaping, trying to quit as week Addressed today: - H/o spina bifida and tethered cord with myelomeningocele repair at and revision on 1994 and 2016, - Chronic pain in low back pain and leg pain chronic, treated with pregabalin and tramadol. Follow up Neurology, last appointment 01/19/24 - H/o neurogenic bladder treated with botox injection - Frequent urine infections, about 6 in past 1 year. - Change in color and smell, recommended during preop anesthesia evaluation to get tested. Follow up Urology - US thryoid, patient with thyroid nodules. Follow up endocrinology to consider FNA. Plan: Order UA and culture. Continue present treatment. Return if symptoms worsen or fail to improve (more content not included)... [facility] 12-20-2024 History of Present illness Narrative Karlene Tom is a 43 year old female Chief complaint: Same Day Appointment (Mandatory medicine visit) Subjective HPI: Update since last visit: H/o chronic pain in low back pain and leg pain chronic, treated with pregabalin 75 mg 3 times daily and tramadol 50 mg TID, Prior treatment with ketamine once. Follow up neurology and neurosurgery. H/o neurogenic bladder had botox injection last week. Prescribed ciprofloxacin and reports had mouth and body itching Follow up Urology C/o changes in smell and frequently. Had visit for preanesthesia who recommended urine tests to r/o urine infection prior surgery before thyroidectomy recommended for thyroid nodules causing compressing symptoms referred for surgery Frequent urine infections about 6 UTI in past 1 year. Planning to change urologist to [facility] PMDP: 11/22/2024 11/22/2024 1 Tramadol Hcl 50 Mg Tablet 84.00 28 Ra Joe [id number] [place] ([id number]) 0 30.00 MME Medicaid [place] 11/18/2024 10/17/2024 1 Pregabalin 75 Mg Capsule 84.00 28 Ra Joe [id number] [place] ([id number]) 1 1.51 LME Medicaid [place] History: H/o spina bifida and tethered cord with myelomeningocele repair at and reviion on 1994 and 2016, complicated with neurogenic bowel and bladder. Follow up Neurology, last appointment 01/19/24 Smoke: 1 ppd for 30 years, quitting, last cig 07/21/24 Currently using vaping, trying to quit as week Thyroid nodules with tenderness followed by endocrinology. Review of Systems Constitutional: Negative for fever and unexpected weight change. Respiratory: Negative for cough and shortness of breath. Cardiovascular: Negative for chest pain. Gastrointestinal: Negative for abdominal pain, nausea and vomiting. Musculoskeletal: Negative for arthralgias. Neurological: Negative for headaches. Objective BP 122/73 (BP Position: Sitting) Pulse 74 Ht 170.2 cm (5' 7 ) Wt 127.8 kg (281 lb 12 oz) LMP 11/27/2024 (Exact Date) SpO2 100% BMI 44.13 kg/m BMI Readings from Last 3 Encounters: 12/20/24 : 44.13 kg/m 12/14/24 : 43.07 kg/m 09/08/24 : 42.86 kg/m Last Wt 12/20/24 : 127.8 kg (281 lb 12 oz) 12/14/24 : 124.7 kg (275 lb) 09/08/24 : 126.9 kg (279 lb 14 oz) Last BP 12/20/24 : 122/73 09/08/24 : 120/72 08/31/24 : 128/84 Physical Exam Constitutional: Appearance: Normal appearance. HENT: Head: Atraumatic. Pulmonary: Effort: Pulmonary effort is normal. Neurological: General: No focal deficit present. Mental Status: She is alert. Mental status is at baseline. Psychiatric: Mood and Affect: Mood normal. Lab Results Component Value Date HBA1C 5.5 09/08/2024 HBA0=Estimated average glucose Lab Results Component Value Date CHOL 172 04/28/2006 CHOL 178.0 11/21/2004 HDL 46 04/28/2006 HDL 51 11/21/2004 LDL 104 04/28/2006 LDL 105 11/21/2004 TG 111 04/28/2006 TG 111 11/21/2004 Lab Results Component Value Date GLUC 74 11/24/2024 BUN 13 11/24/2024 CREAT 0.72 11/24/2024 NA 138 11/24/2024 K 4.0 11/24/2024 CHLOR 106 11/24/2024 CO2 27 11/24/2024 TPROT 6.9 06/23/2024 ALB 4.3 06/23/2024 CA 8.8 11/24/2024 ALKPHOS 72 06/23/2024 TBILI 0.4 06/23/2024 AST 21 06/23/2024 ALT 25 06/23/2024 No results found for: PCRAT , UALBCR PCRAT=Protein Creatinine Ratio; UABCR=Albumin Creat Ratio Lab Results Component Value Date TSH 1.620 11/24/2024 TSH 1.370 02/22/2024 TSH 2.590 06/11/2017 FREET4 1.2 02/22/2024 FREET4 1.16 11/21/2004 TPOAB <3.0 02/22/2024 07/01/24 US liver: Hepatic steatosis. Impression/Recommendations Social History Social History Narrative Not on file Karlene Tom is a 43 year old female - Obesity Body mass index is 44.13 kg/m . Referred to endocrinology weight program on 06/2024 - RUQ due to Dyspepsia improving on psyllium and omeprazole. - Fatty liver noted on RUQ US. Risk factors: obesity, smoking, heavy alcohol use in the past. Alcohol: 1 day/month 1 drink. Refer to hepatology on 06/2024 - Every day smoker, 1 ppd for 30 years, Trying to quit, changed to nicotine vape last cig 07/21/24 Currently using vaping, trying to quit as week Addressed today: - H/o spina bifida and tethered cord with myelomeningocele repair at and revision on 1994 and 2016, - Chronic pain in low back pain and leg pain chronic, treated with pregabalin and tramadol. Follow up Neurology, last appointment 01/18/24 - H/o neurogenic bladder treated with botox injection - Frequent urine infections, about 6 in past 1 year. - Change in color and smell, recommended during preop anesthesia evaluation to get tested. Follow up Urology - US thryoid, patient with thyroid nodules. Follow up endocrinology to consider FNA. Plan: Order UA and culture. Continue present treatment. Return if symptoms worsen or fail to improve. Diagnoses and all orders for this visit: Abnormal urine odor - URINALYSIS, WITH MICROSCOPIC - BACTERIAL CULTURE, URINE Chronic bilateral low back pain with right-sided sciatica Preop testing - URINALYSIS, WITH MICROSCOPIC - BACTERIAL CULTURE, URINE Spina bifida, unspecified hydrocephalus presence, unspecified spinal region (HCC) Neurogenic bladder Multiple thyroid nodules Aidan Forrester MD The documentation from current visit was copied and pasted from last visit with the patient and reviewed and edited as necessary for today's visit. documented in this encounter [facility] 12-14-2024 Instructions Rod Randhawa PA-C - 12/14/2024 10:49 AM EDT Images from the original note were not included. [facility] PATIENT PREOPERATIVE INSTRUCTIONS No ref. provider found has scheduled you for your procedure at this surgery center: [facility]: [phone] -- [id number] [id number]. Please read below carefully for your personalized instructions. Dietary Restrictions: - No solid food after midnight. - You may have 12 ounces of clear liquids (water, clear juices such as apple juice or gatorade, carbonated beverages, clear tea, black coffee, jello) until 2 hours before scheduled arrival at facility. Medications: Unless instructed differently below, stay on all of your medications until your surgery. If you start any new medications after today's visit, please contact your surgeon. Pre-Surgery Med Instructions Medication Instructions cholecalciferol, vitamin D3, (VITAMIN D3 ORAL) Do not take the day of surgery traMADol (ULTRAM) 50 mg tablet Take the day of surgery with a small sip of water if needed. pregabalin (LYRICA) 75 mg capsule Take the day of surgery with a small sip of water cyclobenzaprine (FLEXERIL) 10 mg tablet Do not take the day of surgery ondansetron orally disintegrating (ZOFRAN ODT) 4 mg disintegrating tablet Do not take the day of surgery IBUPROFEN (MOTRIN ORAL) Stop 7 days before surgery If you start any new medications after today's visit, please contact the surgeon's office. If you are currently using a [id number] injectable or oral medication for diabetes or weight loss such as Dulaglutide (Trulicity), Exenatide (Byetta, Bydureon), Liraglutide (Victoza, Saxenda), Semaglutide (Ozempic, Wegovy, Rybelsus), or Tirzepatide (Mounjaro), the medicine should be stopped at least 7 days before surgery. These medicines can cause food to remain in your stomach for a very long time and increase the risks from surgery and anesthesia. Not stopping the medication for a long enough time may result in your surgery being rescheduled. Blood Thinning Medications: - Stop NSAIDS (Ibuprofen, Advil, Aleve, Motrin, Celebrex, Mobic, etc.) 7 days before surgery, as directed by your surgeon. - Stop Aspirin 7 days before surgery, as directed by your surgeon. - Stop ALL herbal and dietary supplements 7 days before surgery. - You may take Tylenol (Acetaminophen) or any of your pain medications that do not contain aspirin or NSAIDS as needed. Important Reminders: - Candy, mints, and tobacco products are NOT permitted the morning of surgery. - Hearing aids, dentures and glasses may be worn the morning of surgery. - NO jewelry, body piercings, makeup, hairpins [...] money at home or with family members. - Please bring high-quality footwear, such as sneakers, to the hospital for ambulating post-surgery. For Outpatient Procedures: - YOU MUST HAVE A RESPONSIBLE GARAGE HELPER TAKE YOU HOME. A ASTROBIOLOGIST OR GLASS FURNACE TENDER CANNOT BE MADE A RESPONSIBLE GARAGE HELPER. - We recommend that a responsible person stays with you overnight to take care of you. - You cannot stay in a hotel alone after outpatient surgery. You will not be permitted to have your surgery, if you do not have someone to take care of you. Arrival Time for Surgery: - The Surgery Center or hospital where you are having surgery will call the afternoon before surgery (or Thursday for Thursday surgery) with a scheduled arrival time. - If you have not heard by 4 pm, please contact the surgery center above. Please be aware that emergency situations arise, which may delay or change your surgical time. If this happens, we will notify you as soon as possible and regret any inconvenience. If you already have an Advance Directive, please fax a copy to [phone] or email to for it to be added to your chart. If you do not have an Advance Directive, you can find the appropriate form and more information at [email or web address]. We recommend that you complete the Advance Directive form found on the website and bring it with you the day of your surgery. It can be witnessed and scanned into your chart that day. Rod Randhawa PA-C documented in this encounter [facility] 12-14-2024 History and physical note Images from the original note were not included. [facility] HISTORY AND PHYSICAL EXAMINATION SERVICE DATE: 12/14/2024 SERVICE TIME: 11:35 AM PRIMARY CARE PHYSICIAN: Aidan Forrester MD Assessment Patient has the following medical conditions which may affect saravanan-operative course: Morbid obesity with BMI of 40.0-44.9, adult (HCC) Body mass index is 43.07 kg/m . Was on Trulicity, stopped the beginning of November. Difficult intravenous access Has needed US guidance. Neurogenic bladder Self-catheterizes. States she may have a UTI, has abnormal urine odor. Will have urine studies done at PCP office 12/20. Smoker Quit smoking 06/2024. 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 On Tramadol, Lyrica. Limited in activity due to back pain. Follows with neurology. ANESTHESIA FINDINGS: Intubation History: No history of difficult intubation Significant Anesthesia Considerations: States it takes a lot to put her to sleep, has h/o intraoperative awareness. potential difficult IV/vein access Airway History: No history of difficult airway Jones Activity Status Index: METS: Walk indoors, such as around the house (1.75 METs) Do light work around the house, such as dusting or washing dishes (2.70 METs) Take care of self; that is eating, dressing, bathing, using the toilet (2.75 METs) DASI Score: 7.2 (Inactive No exertional chest pain. ) Patient denies any chest pain or undue shortness of breath with the above physical activity. Clinical Frailty Scale: 5. Mildly frail STOP-Bang Score: BMI greater than 35 kg/m^2 Has a large neck Denies snoring loudly Has not been observed to stop breathing or choking/gasping during sleep Denies having high blood pressure Patient 50 years old or younger Non-male patient STOP-Bang Score: 2 I - PHYSICAL EVALUATION AIRWAY Patient intubated: No. Tracheostomy tube not present Mallampati: III. Neck ROM: full ROM without neurological symptoms. Mouth opening: adequate. Short neck: yes. Additional comments: Pain with neck movement, enlarged thyroid.. Thick neck: yes Lip Bite Test: I DENTAL Dentures, upper: complete. Dentures, lower: partial. II - ANESTHESIA PLAN Anesthetic plan additional comments: *PACC/TCI - anesthesia choice. Beta Lucila Monitoring Plan Post Procedure Analgesic Plan Prepared for Surgery: optimally prepared for surgery, pending [see comment]. Urine studies. CONSULTS: Patient does not require consults for optimization at this time Planned Anesthetic: anesthesia choice The Following Tests/Procedures Have Been Initiated: Urinalysis/culture Labs and EKG per surgical service. This is a virtual visit using [email or web address] video visit. It required patient-provider interaction for the medical decision making as documented below. REASON FOR VISIT: Karlene Tom is a 43 year old female who is scheduled for Procedure(s): THYROIDECTOMY TOTAL (Bilateral) at the request of Bri Noel MD for consultation. My final recommendation will be communicated back to the requesting physician by way of shared medical record or letter. Subjective The patient has the following: COVID-19 Immunization Status Upcoming Covid-19 Vaccine () Postponed until 06/23/2025 06/23/2024 Postponed until 06/23/2025 by Aidan Montenegro MD (Declined at this time) 01/06/2024 Postponed until 01/05/2025 by Tracie Williamson APRN.CNP (Declined at this time) CHIEF COMPLAINT: Pre-op evalution HPI: Patient is a 43 year old year old female who is scheduled for above procedure on 12/28/2024. Patient has an enlarged multinodular goiter. She first noticed a neck mass two years ago, she has dysphagia and pressure of her neck and chest. Denies any fevers, chills, nausea, vomiting, SOB. This is a virtual visit. The visit was conducted using [email or web address] video visit. It required patient-provider interaction for the medical decision making as documented below. I have communicated my name and active licensure. The patient's identity and physical location were verified at the time of this visit. Either the patient or their legal product support representative has been informed of the risks and benefits of and alternatives to treatment through a remote evaluation and consents to proceed with the evaluation remotely. REVIEW OF SYSTEMS: General: Negative for: weight loss >10% of BW in last 6 months, malaise and fever. Neurological: Spina Bifida Negative for: delirium, dementia, seizures, TIA and strokes. Respiratory: Positive for: tobacco use. Negative for: asthma, COPD, current cough, dyspnea, pneumonia within 6 weeks and obstructive sleep apnea. Cardiovascular: Palpitations- occur when laying on left side. Last few seconds. No dizziness/syncope Positive for: chest pain (Patient describes upper chest pain below her neck she attributes to her thyroid. Pain occurs randomly, lasts a few seconds, could be sharp or dull. Denies exertional chest pain.) Negative for: angina, arrhythmia, CAD, CHF, DVT/PE, hypertension and murmur/valvular heart disease. GI: Neurogenic bowel Positive for: heartburn (Tums), liver disease (Fatty liver) and nausea Negative for: abdominal pain, hepatitis, inflammatory bowel disease, vomiting and ETOH >2 drinks/day. : Positive for: self catheterization. Negative for: BPH, hematuria, nephrolithiasis and renal failure. Endocrine: See HPI. Negative for: diabetes mellitus, hyperthyroidism, hypothyroidism and steroid for chronic problem. Hematology: Negative for: anemia and chronic anti-coagulation/platelet meds. Oncology: No history of CA metastasis, chemo within 30 days, or radiotherapy within 90 days. No history of oncological symptoms or problems. Psych: Negative for: ADD, anxiety, depression and drug dependency. Musculoskeletal: Positive for: back pain. Skin: Negative for lesions, rash and itching. PAST MEDICAL HISTORY Diagnosis Date Abnormal Pap smear of cervix LEEP Difficult intravenous access 12/14/2024 History of urinary self-catheterization 05/26/2017 ISC Morbid [...] cord (1979,1994, 2016) PAST SURGICAL HISTORY OF 1985 bladder surgery PAST SURGICAL HISTORY OF Eye surgery FAMILY HISTORY Problem Relation Age of Onset Cancer Mother skin other (macular degenertion) Mother Mental illness Mother Cancer Father bladder Hypertension Father other (pre diabetes) Father other (pe) Father Ischemic Heart Disease Father Breast Cancer Paternal Grandmother Anesthesia No Family History Social History Tobacco Use Smoking status: Former Average packs/day: 1 pack/day for 20.8 years (20.8 ttl pk-yrs) Types: Cigarettes Start date: 2003 Smokeless tobacco: Never Vaping Use Vaping status: Never Used Substance Use Topics Alcohol use: Yes Comment: once every 6 months Drug use: Yes Types: Marijuana Comment: occasional gummies- once every few months. Prior to Admission medications as of 12/14/24 1029 Medication Sig Last Dose Taking cholecalciferol, vitamin D3, (VITAMIN D3 ORAL) Take by mouth. Yes traMADol (ULTRAM) 50 mg tablet Take 1 tablet by mouth three times a day for 56 days. Yes pregabalin (LYRICA) 75 mg capsule Take 1 capsule by mouth three times a day for 56 days. Yes cyclobenzaprine (FLEXERIL) 10 mg tablet Take 10 mg by mouth three times a day as needed. Yes ondansetron orally disintegrating (ZOFRAN ODT) 4 mg disintegrating tablet Take 4 mg by mouth every 8 hours as needed for nausea/vomiting. Yes IBUPROFEN (MOTRIN ORAL) Take by mouth. Yes dulaglutide (TRULICITY) 1.5 mg/0.5 mL pen injector Inject 1.5 mg subcutaneously one time a week. Patient not taking: Reported on 12/14/2024 No medication comments found. ALLERGIES Allergen Reactions Amoxicillin Hives Latex Anaphylaxis Ciprofloxacin Hives, Itching Morphine GI Upset Neosporin [Neomycin* Rash Silver Sulfadiazine Other: See Comments Zinc Oxide Rash Objective PHYSICAL EXAM: (if completed, exam performed via video enabled technology) General: alert and oriented and morbidly obese. Pertinent negatives noted - not distressed. Skin: No rash noted. HEENT: Normocephalic head, no abnormality or lesion noted Eyes with no injection and visual acuity is grossly normal Enlarged neck.. Cardiovascular: Self palpated carotid pulse, regular when counted aloud by patient . Respiratory: breathing non-labored. Equal chest rise with normal respiratory effort . Abdomen: Unable to examine. Extremities: No obvious deformity. Neurological: No obvious defect. PAIN ASSESSMENT: VITALS: Pulse 60[Pt reported[ Ht 5' 7 [Pt reported[ (1.70m) Wt 275 lb (124.7kg) LMP 11/27/2024 BMI 43.06 kg/(m^2). Diagnostic tests reviewed for today's visit: Lab Value Units Date High Low HB 12.7 g/dL 11/24/2024 15.5 11.5 HCT 38.7 % 11/24/2024 46.0 36.0 WBC 6.86 k/uL 11/24/2024 11.00 3.70 PLT 271 k/uL 11/24/2024 400 150 NA 138 mmol/L 11/24/2024 144 136 K 4.0 mmol/L 11/24/2024 5.1 3.7 GLUC 74 mg/dL 11/24/2024 99 74 BUN 13 mg/dL 11/24/2024 21 7 CREAT 0.72 mg/dL 11/24/2024 0.96 0.58 PTSEC No results within date range. INR No results within date range. APTT No results within date range. ALT 25 U/L 06/23/2024 38 7 AST 21 U/L 06/23/2024 35 13 TBILI 0.4 mg/dL 06/23/2024 1.3 0.2 TSH 1.620 mIU/L 11/24/2024 4.200 0.270 Lab Value Units Date High Low HCGQT No results within date range. UHCG No results within date range. HCG, BODY* No results within date range. Lab Value Units Date High Low ABORHD No results within date range. ABSCREEN No results within date range. Hemoglobin A1C (POCT) (%) Date Value 09/08/2024 5.5 Recent Results (from the past 8760 hours) ECG COMPLETE Collection Time: 11/24/24 1:23 PM Result Value Ventricular Rate 66 Atrial Rate 66 P-R Interval 142 QRS Duration 84 QT Interval 390 QTC Calculation (Bazett) 408 Calculated P [place] 62 Calculated R [place] 33 Calculated T [place] 35 Impression NORMAL SINUS RHYTHM POSSIBLE LEFT ATRIAL ENLARGEMENT BORDERLINE ECG Confirmed by [facility] ([id number]) on 11/25/2024 4:27:43 PM No results found for this or any previous visit (from the past 88049 hours). Instructions Given to Patient: Instructions located in the after visit summary. Patient given verbal and written preop instructions and voices comprehension and compliance. SIGNATURE: Rod Randhawa PA-C PATIENT NAME: Karlene Tom DATE: December 14, 2024 TIME: 10:22 AM PAGER/CONTACT #: [facility] 12-14-2024 History and physical note Images from the original note were not included. [facility] HISTORY AND PHYSICAL EXAMINATION SERVICE DATE: 12/14/2024 SERVICE TIME: 11:35 AM PRIMARY CARE PHYSICIAN: Aidan Forrester MD Assessment Patient has the following medical conditions which may affect saravanan-operative course: Morbid obesity with BMI of 40.0-44.9, adult ([facility]) Body mass index is 43.07 kg/m . Was on Trulicity, stopped the beginning of November. Difficult intravenous access Has needed US guidance. Neurogenic bladder Self-catheterizes. States she may have a UTI, has abnormal urine odor. Will have urine studies done at PCP office 12/20. Smoker Quit smoking 06/2024. 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 On Tramadol, Lyrica. Limited in activity due to back pain. Follows with neurology. ANESTHESIA FINDINGS: Intubation History: No history of difficult intubation Significant Anesthesia Considerations: States it takes a lot to put her to sleep, has h/o intraoperative awareness. potential difficult IV/vein access Airway History: No history of difficult airway Jones Activity Status Index: METS: Walk indoors, such as around the house (1.75 METs) Do light work around the house, such as dusting or washing dishes (2.70 METs) Take care of self; that is eating, dressing, bathing, using the toilet (2.75 METs) DASI Score: 7.2 (Inactive No exertional chest pain. ) Patient denies any chest pain or undue shortness of breath with the above physical activity. Clinical Frailty Scale: 5. Mildly frail STOP-Bang Score: BMI greater than 35 kg/m^2 Has a large neck Denies snoring loudly Has not been observed to stop breathing or choking/gasping during sleep Denies having high blood pressure Patient 50 years old or younger Non-male patient STOP-Bang Score: 2 I - PHYSICAL EVALUATION AIRWAY Patient intubated: No. Tracheostomy tube not present Mallampati: III. Neck ROM: full ROM without neurological symptoms. Mouth opening: adequate. Short neck: yes. Additional comments: Pain with neck movement, enlarged thyroid.. Thick neck: yes Lip Bite Test: I DENTAL Dentures, upper: complete. Dentures, lower: partial. II - ANESTHESIA PLAN Anesthetic plan additional comments: *PACC/TCI - anesthesia choice. Beta Lucila Monitoring Plan Post Procedure Analgesic Plan Prepared for Surgery: optimally prepared for surgery, pending [see comment]. Urine studies. CONSULTS: Patient does not require consults for optimization at this time Planned Anesthetic: anesthesia choice The Following Tests/Procedures Have Been Initiated: Urinalysis/culture Labs and EKG per surgical service. This is a virtual visit using [employer] video visit. It required patient-provider interaction for the medical decision making as documented below. REASON FOR VISIT: Karlene Tom is a 43 year old female who is scheduled for Procedure(s): THYROIDECTOMY TOTAL (Bilateral) at the request of Bri Noel MD for consultation. My final recommendation will be communicated back to the requesting physician by way of shared medical record or letter. Subjective The patient has the following: COVID-19 Immunization Status Upcoming Covid-19 Vaccine () Postponed until 06/23/2025 06/23/2024 Postponed until 06/23/2025 by Aidan Montenegro MD (Declined at this time) 01/06/2024 Postponed until 01/05/2025 by Tracie Williamson APRN.CNP (Declined at this time) CHIEF COMPLAINT: Pre-op evalution HPI: Patient is a 43 year old year old female who is scheduled for above procedure on 12/28/2024. Patient has an enlarged multinodular goiter. She first noticed a neck mass two years ago, she has dysphagia and pressure of her neck and chest. Denies any fevers, chills, nausea, vomiting, SOB. This is a virtual visit. The visit was conducted using [email or web address] video visit. It required patient-provider interaction for the medical decision making as documented below. I have communicated my name and active licensure. The patient's identity and physical location were verified at the time of this visit. Either the patient or their legal product support representative has been informed of the risks and benefits of and alternatives to treatment through a remote evaluation and consents to proceed with the evaluation remotely. REVIEW OF SYSTEMS: General: Negative for: weight loss >10% of BW in last 6 months, malaise and fever. Neurological: Spina Bifida Negative for: delirium, dementia, seizures, TIA and strokes. Respiratory: Positive for: tobacco use. Negative for: asthma, COPD, current cough, dyspnea, pneumonia within 6 weeks and obstructive sleep apnea. Cardiovascular: Palpitations- occur when laying on left side. Last few seconds. No dizziness/syncope Positive for: chest pain (Patient describes upper chest pain below her neck she attributes to her thyroid. Pain occurs randomly, lasts a few seconds, could be sharp or dull. Denies exertional chest pain.) Negative for: angina, arrhythmia, CAD, CHF, DVT/PE, hypertension and murmur/valvular heart disease. GI: Neurogenic bowel Positive for: heartburn (Tums), liver disease (Fatty liver) and nausea Negative for: abdominal pain, hepatitis, inflammatory bowel disease, vomiting and ETOH >2 drinks/day. : Positive for: self catheterization. Negative for: BPH, hematuria, nephrolithiasis and renal failure. Endocrine: See HPI. Negative for: diabetes mellitus, hyperthyroidism, hypothyroidism and steroid for chronic problem. Hematology: Negative for: anemia and chronic anti-coagulation/platelet meds. Oncology: No history of CA metastasis, chemo within 30 days, or radiotherapy within 90 days. No history of oncological symptoms or problems. Psych: Negative for: ADD, anxiety, depression and drug dependency. Musculoskeletal: Positive for: back pain. Skin: Negative for lesions, rash and itching. PAST MEDICAL HISTORY Diagnosis Date Abnormal Pap smear of cervix LEEP Difficult intravenous access 12/14/2024 History of urinary self-catheterization 05/26/2017 [facility] Morbid [...] cord (1979,1994, 2016) PAST SURGICAL HISTORY OF 1985 bladder surgery PAST SURGICAL HISTORY OF Eye surgery FAMILY HISTORY Problem Relation Age of Onset Cancer Mother skin other (macular degenertion) Mother Mental illness Mother Cancer Father bladder Hypertension Father other (pre diabetes) Father other (pe) Father Ischemic Heart Disease Father Breast Cancer Paternal Grandmother Anesthesia No Family History Social History Tobacco Use Smoking status: Former Average packs/day: 1 pack/day for 20.8 years (20.8 ttl pk-yrs) Types: Cigarettes Start date: 2003 Smokeless tobacco: Never Vaping Use Vaping status: Never Used Substance Use Topics Alcohol use: Yes Comment: once every 6 months Drug use: Yes Types: Marijuana Comment: occasional gummies- once every few months. Prior to Admission medications as of 12/14/24 1029 Medication Sig Last Dose Taking cholecalciferol, vitamin D3, (VITAMIN D3 ORAL) Take by mouth. Yes traMADol (ULTRAM) 50 mg tablet Take 1 tablet by mouth three times a day for 56 days. Yes pregabalin (LYRICA) 75 mg capsule Take 1 capsule by mouth three times a day for 56 days. Yes cyclobenzaprine (FLEXERIL) 10 mg tablet Take 10 mg by mouth three times a day as needed. Yes ondansetron orally disintegrating (ZOFRAN ODT) 4 mg disintegrating tablet Take 4 mg by mouth every 8 hours as needed for nausea/vomiting. Yes IBUPROFEN (MOTRIN ORAL) Take by mouth. Yes dulaglutide (TRULICITY) 1.5 mg/0.5 mL pen injector Inject 1.5 mg subcutaneously one time a week. Patient not taking: Reported on 12/14/2024 No medication comments found. ALLERGIES Allergen Reactions Amoxicillin Hives Latex Anaphylaxis Ciprofloxacin Hives, Itching Morphine GI Upset Neosporin [Neomycin* Rash Silver Sulfadiazine Other: See Comments Zinc Oxide Rash Objective PHYSICAL EXAM: (if completed, exam performed via video enabled technology) General: alert and oriented and morbidly obese. Pertinent negatives noted - not distressed. Skin: No rash noted. HEENT: Normocephalic head, no abnormality or lesion noted Eyes with no injection and visual acuity is grossly normal Enlarged neck.. Cardiovascular: Self palpated carotid pulse, regular when counted aloud by patient . Respiratory: breathing non-labored. Equal chest rise with normal respiratory effort . Abdomen: Unable to examine. Extremities: No obvious deformity. Neurological: No obvious defect. PAIN ASSESSMENT: VITALS: Pulse 60[Pt reported[ Ht 5' 7 [Pt reported[ (1.70m) Wt 275 lb (124.7kg) LMP 11/27/2024 BMI 43.06 kg/(m^2). Diagnostic tests reviewed for today's visit: Lab Value Units Date High Low HB 12.7 g/dL 11/24/2024 15.5 11.5 HCT 38.7 % 11/24/2024 46.0 36.0 WBC 6.86 k/uL 11/24/2024 11.00 3.70 PLT 271 k/uL 11/24/2024 400 150 NA 138 mmol/L 11/24/2024 144 136 K 4.0 mmol/L 11/24/2024 5.1 3.7 GLUC 74 mg/dL 11/24/2024 99 74 BUN 13 mg/dL 11/24/2024 21 7 CREAT 0.72 mg/dL 11/24/2024 0.96 0.58 PTSEC No results within date range. INR No results within date range. APTT No results within date range. ALT 25 U/L 06/23/2024 38 7 AST 21 U/L 06/23/2024 35 13 TBILI 0.4 mg/dL 06/23/2024 1.3 0.2 TSH 1.620 mIU/L 11/24/2024 4.200 0.270 Lab Value Units Date High Low HCGQT No results within date range. UHCG No results within date range. HCG, BODY* No results within date range. Lab Value Units Date High Low ABORHD No results within date range. ABSCREEN No results within date range. Hemoglobin A1C (POCT) (%) Date Value 09/08/2024 5.5 Recent Results (from the past 8760 hours) ECG COMPLETE Collection Time: 11/24/24 1:23 PM Result Value Ventricular Rate 66 Atrial Rate 66 P-R Interval 142 QRS Duration 84 QT Interval 390 QTC Calculation (Bazett) 408 Calculated P [place] 62 Calculated R [place] 33 Calculated T [place] 35 Impression NORMAL SINUS RHYTHM POSSIBLE LEFT ATRIAL ENLARGEMENT BORDERLINE ECG Confirmed by [facility] ([id number]) on 11/25/2024 4:27:43 PM No results found for this or any previous visit (from the past 75437 hours). Instructions Given to Patient: Instructions located in the after visit summary. Patient given verbal and written preop instructions and voices comprehension and compliance. SIGNATURE: Rod Randhawa PA-C PATIENT NAME: Karlene Tom DATE: December 14, 2024 TIME: 10:22 AM PAGER/CONTACT #: documented in this encounter [facility] 11-24-2024 Note HNO ID: [id number] Author: INDIRA WILLINGHAM MA Service: ? 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 Vo for an EKG for pre-op testing LMP 08/28/2024 (Exact Date) Physician/OTIS notification and treatment plan: EKG uploaded to [facility] Nursing Plan: N/A Patient instructed to call and update the office if there are any changes in current condition. Patient verbalizes understanding of the plan: Yes. Patient's questions were addressed during the visit today: Yes Indira Willingham MA November 24, 2024 1:25 PM [facility] 11-24-2024 History of Present illness Narrative Images from the original note were not included. [facility] Department of Cardiovascular Medicine OUTPATIENT VISIT TYPE NURSE VISIT PATIENT NAME: Karlene Tom DATE OF SERVICE: 11/24/2024 PRIMARY RUBBER BELT SPLICER: delia Karlene Tom is a 43 year old established patient who presents today for a nurse visit per Dr. Vo for an EKG for pre-op testing LMP 08/28/2024 (Exact Date) Physician/OTIS notification and treatment plan: EKG uploaded to [facility] Nursing Plan: N/A Patient instructed to call and update the office if there are any changes in current condition. Patient verbalizes understanding of the plan: Yes. Patient's questions were addressed during the visit today: Yes Indira Willingham MA November 24, 2024 1:25 PM documented in this encounter [facility] 11-10-2024 Note HNO ID: [id number] Author: CARL AVILA Back [employer] Service: ? Author Type: Back Tender Paper Machine Type: Progress Notes Filed: 11/10/2024 14:10 Note Text: Virtual Visit (Audio/Visual) I have discussed the nature of this visit with the patient which will occur via [facility] (Phone, Virtual Visit) and she agrees to proceed with this interaction . Karlene is having a thyroidectomy. She will reach out after her recovery with questions or to schedule. Based on the ACSM's Guidelines for Exercise Testing AND Prescription, the patient will not require a stress test prior to receiving an exercise prescription. [facility] 11-10-2024 History of Present illness Narrative Virtual Visit (Audio/Visual) I have discussed the nature of this visit with the patient which will occur via [facility] (Phone, Virtual Visit) and she agrees to proceed with this interaction . Karlene is having a thyroidectomy. She will reach out after her recovery with questions or to schedule. Based on the ACSM's Guidelines for Exercise Testing & Prescription, the patient will not require a stress test prior to receiving an exercise prescription. documented in this encounter [facility] 11-08-2024 History of Present illness Narrative [facility] Department of Endocrine Surgery Bri Vo M.D. [address] [place] [address] Ms. Karlene Tom was seen in the office today in consultation for an enlarged multinodular goiter. The patient was referred by Dr. Jailene Dave, and my findings and recommendations will be communicated by way of the shared medical record. Thank you for referring your patient, Ms. Tom, for evaluation of an enlarged multinodular goiter. As you know, she is a 43-year-old female who noticed a neck mass two years ago. Her most recent thyroid ultrasound performed on 02/08/24 revealed an enlarged multinodular goiter with the largest nodule measuring 5.5 cm in the right thyroid gland. This nodule as well as an isthmus nodule were biopsied, and both were benign. The patient's past medical history is significant for spina bifida, neuropathy, morbid obesity, and neurogenic bladder. Her medications include dulaglutide, tramadol, pregabalin, ondansetron, and cyclobenzaprine. The patient's past surgical history is significant for three back surgeries, three abdominal surgeries, eye surgeries, LEEP, Botox surgery on bladder, and leg surgeries. The patient denies any family history of thyroid cancer or any other thyroid diseases. The patient denies any history of ionizing radiation to the head or neck. In terms of compressive symptoms related to the thyroid gland, she has dysphagia and pressure on her neck. Latest Ref Rng 02/22/2024 - THYROID DATA FLOWSHEET TSH 0.400 - 5.500 uU/mL TSH 0.270 - 4.200 mIU/L 1.370 Free T4 0.85 - 1.8 ng/dL Free T4 0.9 - 1.7 ng/dL 1.2 On physical examination, Ms. Tom is an overweight female in no acute distress. She appears clinically euthyroid. Inspection of the head and neck reveals a mass on the right side of the neck. Palpation of the neck reveals a slightly firm mass in the right thyroid bed. Ultrasound examination was performed in the office. This revealed a right thyroid gland that was enlarged and replaced by a solid nodule measuring 4.02 x 3.26 x 5.5 cm. The inferior pole could only be imaged with deglutition. There was also a 2 cm nodule in the isthmus. The left thyroid gland was smaller and contained two subcm nodules. No abnormal central or jugular lymphadenopathy was appreciated on ultrasound. In summary, Ms. Tom is a 43-year-old female with an enlarged multinodular goiter causing compressive symptoms. Therefore, I feel that she would be best served by undergoing a total thyroidectomy. The indications, risks, benefits, and alternatives of a total thyroidectomy were explained to the patient in detail. I will keep you informed as to her perioperative course. I appreciate being involved in the care of your patient, and please feel free to contact me should you have additional questions or concerns. BRI VO M.D. CC: Jailene Dave M.D. Aidan Forrester M.D. documented in this encounter [facility] 11-08-2024 Note HNO ID: [id number] Author: BRI VO MD Service: ? Author Type: Physician Type: Progress Notes Filed: 11/08/2024 12:41 Note Text: [facility] Department of Endocrine Surgery Bri Vo M.D. [address] [place] [address] Ms. Karlene Tom was seen in the office today in consultation for an enlarged multinodular goiter. The patient was referred by Dr. Jailene Dave, and my findings and recommendations will be communicated by way of the shared medical record. Thank you for referring your patient, Ms. Tom, for evaluation of an enlarged multinodular goiter. As you know, she is a 43-year-old female who noticed a neck mass two years ago. Her most recent thyroid ultrasound performed on 02/08/24 revealed an enlarged multinodular goiter with the largest nodule measuring 5.5 cm in the right thyroid gland. This nodule as well as an isthmus nodule were biopsied, and both were benign. The patient's past medical history is significant for spina bifida, neuropathy, morbid obesity, and neurogenic bladder. Her medications include dulaglutide, tramadol, pregabalin, ondansetron, and cyclobenzaprine. The patient's past surgical history is significant for three back surgeries, three abdominal surgeries, eye surgeries, LEEP, Botox surgery on bladder, and leg surgeries. The patient denies any family history of thyroid cancer or any other thyroid diseases. The patient denies any history of ionizing radiation to the head or neck. In terms of compressive symptoms related to the thyroid gland, she has dysphagia and pressure on her neck. Latest Ref Rng 02/22/2024 - THYROID DATA FLOWSHEET TSH 0.400 - 5.500 uU/mL TSH 0.270 - 4.200 mIU/L 1.370 Free T4 0.85 - 1.8 ng/dL Free T4 0.9 - 1.7 ng/dL 1.2 On physical examination, Ms. Tom is an overweight female in no acute distress. She appears clinically euthyroid. Inspection of the head and neck reveals a mass on the right side of the neck. Palpation of the neck reveals a slightly firm mass in the right thyroid bed. Ultrasound examination was performed in the office. This revealed a right thyroid gland that was enlarged and replaced by a solid nodule measuring 4.02 x 3.26 x 5.5 cm. The inferior pole could only be imaged with deglutition. There was also a 2 cm nodule in the isthmus. The left thyroid gland was smaller and contained two subcm nodules. No abnormal central or jugular lymphadenopathy was appreciated on ultrasound. In summary, Ms. Tom is a 43-year-old female with an enlarged multinodular goiter causing compressive symptoms. Therefore, I feel that she would be best served by undergoing a total thyroidectomy. The indications, risks, benefits, and alternatives of a total thyroidectomy were explained to the patient in detail. I will keep you informed as to her perioperative course. I appreciate being involved in the care of your patient, and please feel free to contact me should you have additional questions or concerns. BRI VO M.D. CC: Jailene Dave M.D. Aidan Forrester M.D. [facility] 11-02-2024 Telephone encounter Note 11/02/2024 INTAKE PENDING-NEED TSH-SENT [facility] FOR A RETURN CALL. ENDOCRINE SURGERY PATIENT WORKSHEET Initial Call Date: November 02, 2024 Reason for Consult/ Referral: Thyroid Nodule PATIENT DEMOGRAPHICS Name: Karlene Tom CC#: [id number] : 1980 AGE: [age] year old Contact Numbers: Home: (home) Work: There is no work phone number on file. PATIENT PHYSICIAN INFORMATION Referring Doctor: Address: Phone: [employer] E[employer]ctor: Address: Phone: PCP: Aidan Forrester [address] [place] [address] PAST TREATMENT Office notes: SEE [facility] Medications: NONE THAT APPLY Pre-Visit Testing STUDY/TEST DATE ORDERED/REQUESTED DATE RECEIVED/COMPLETED ENTIRE PANEL TSH 11/02/24 FREE T4 FREE T3 Imaging Reports: SEE [facility] CD of Images: SEE [facility] FNA: yes: 03/2024 FNA Slides: FNA performed at [facility] Has the patient ever had thyroid or parathyroid surgery before: No Operative Reports: NONE AVAILABLE Pathology Reports: SEE EPIC [facility] 11-02-2024 Miscellaneous Notes 11/02/2024 INTAKE PENDING-NEED TSH-SENT MYCHART MSG FOR A RETURN CALL. ENDOCRINE SURGERY PATIENT WORKSHEET Initial Call Date: November 02, 2024 Reason for Consult/ Referral: Thyroid Nodule PATIENT DEMOGRAPHICS Name: Karlene Tom CCF#: [id number] : 1980 AGE: [age] year old Contact Numbers: Home: (home) Work: There is no work phone number on file. PATIENT PHYSICIAN INFORMATION Referring Doctor: Address: Phone: [employer]ctor: Address: Phone: PCP: Aidan Forrester [address] [place] [address] PAST TREATMENT Office notes: SEE EPIC Medications: NONE THAT APPLY Pre-Visit Testing STUDY/TEST DATE ORDERED/REQUESTED DATE RECEIVED/COMPLETED ENTIRE PANEL TSH 11/02/24 FREE T4 FREE T3 Imaging Reports: SEE EPIC CD of Images: SEE EPIC FNA: yes: 03/2024 FNA Slides: FNA performed at [facility] Has the patient ever had thyroid or parathyroid surgery before: No Operative Reports: NONE AVAILABLE Pathology Reports: SEE EPIC documented in this encounter [facility] 10-31-2024 Telephone encounter Note TYRONE 09/08/2024 (Christen) NOV 12/09/2024 (Christshashank) Patient taking Trulicity 1.5mg, asking for refill. Order pended [facility] 10-31-2024 Miscellaneous Notes TYRONE 09/08/2024 (Christen) 12/09/2024 (Rikkien) Patient taking Trulicity 1.5mg, asking for refill. Order pended documented in this encounter [facility] 10-17-2024 Telephone encounter Note Request for controlled medication pregabalin and tramadol. PMDP checked. No signs of concerns. Refill sent. Lab Results Component Value Date UOPI Negative 06/11/2017 UOXYC Positive (A) 06/11/2017 UBENZ Positive (A) 06/11/2017 UCOC2 Negative 06/11/2017 UAMPH Negative 06/11/2017 UETOH <11 06/11/2017 ] [facility] 10-17-2024 Miscellaneous Notes Request for controlled medication pregabalin and tramadol. PMDP checked. No signs of concerns. Refill sent. Lab Results Component Value Date UOPI Negative 06/11/2017 UOXYC Positive (A) 06/11/2017 UBENZ Positive (A) 06/11/2017 UCOC2 Negative 06/11/2017 UAMPH Negative 06/11/2017 UETOH <11 06/11/2017 ] Received request for refill of the following medications: Requested Prescriptions Pending Prescriptions Disp Refills traMADol (ULTRAM) 50 mg tablet 84 tablet 0 Sig: Take 1 tablet by mouth three times a day for 56 days. pregabalin (LYRICA) 75 mg capsule 84 capsule 0 Sig: Take 1 capsule by mouth three times a day for 56 days. Patient requested a 90 day refill. Pharmacy verified and updated accordingly. Patient was last seen by PCP team/provider: 08/31/2024 Upcoming appointment scheduled: Visit date not found Elizabeth Landrum MA October 17, 2024 10:00 AM documented in this encounter [facility] 10-17-2024 Telephone encounter Note Received request for refill of the following medications: Requested Prescriptions Pending Prescriptions Disp Refills traMADol (ULTRAM) 50 mg tablet 84 tablet 0 Sig: Take 1 tablet by mouth three times a day for 56 days. pregabalin (LYRICA) 75 mg capsule 84 capsule 0 Sig: Take 1 capsule by mouth three times a day for 56 days. Patient requested a 90 day refill. Pharmacy verified and updated accordingly. Patient was last seen by PCP team/provider: 08/31/2024 Upcoming appointment scheduled: Visit date not found Elizabeth Landrum MA October 17, 2024 10:00 AM [facility] 10-07-2024 Telephone encounter Note Requester: Patient Patients last Endocrinology visit occurred 09/08/2024 w/ Brayan Dave CNP. Follow-up evaluation has been established Upcoming Endocrinology Appointments - Next 365 Days Visit Type Date Time Department [facility] 11/08/2024 1:00 PM ENDO [facility]G [facility] EDU NON [facility] 11/10/2024 1:00 PM [facility]O [facility] PATIENT 12/09/2024 1:30 PM ENDO [facility] MD . Requested Prescriptions Pending Prescriptions Disp Refills dulaglutide (TRULICITY) 0.75 mg/0.5 mL pen injector 2 mL 0 Sig: Inject 0.75 mg subcutaneously one time a week. If patient is due for an appointment please route to provider for refill consideration and also to the endo scheduling pool. PSS NOTE: Patient needs scheduled appointment No [facility] 10-07-2024 Miscellaneous Notes Requester: Patient Patients last Endocrinology visit occurred 09/08/2024 w/ Brayan Dave CNP. Follow-up evaluation has been established Upcoming Endocrinology Appointments - Next 365 Days Visit Type Date Time Department [facility] SURG 11/08/2024 1:00 PM ENDO [facility]G [facility] EP EDU NON [facility] 11/10/2024 1:00 PM ENDO [facility] PATIENT 12/09/2024 1:30 PM ENDO [facility] . Requested Prescriptions Pending Prescriptions Disp Refills dulaglutide (TRULICITY) 0.75 mg/0.5 mL pen injector 2 mL 0 Sig: Inject 0.75 mg subcutaneously one time a week. If patient is due for an appointment please route to provider for refill consideration and also to the endo scheduling pool. PSS NOTE: Patient needs scheduled appointment No documented in this encounter [facility] 10-05-2024 History of Present illness Narrative [facility] Medical Nutrition Therapy Visit Type: Virtual: I have discussed the nature of this visit with the patient which will occur via [facility] (Phone, Virtual Visit) and she agrees to proceed with this interaction . I have communicated my name and active licensure. The patient's identity and physical location were verified at the time of this visit. Either the patient or their legal product support representative has been informed of the risks and benefits of -- and alternatives to -- treatment through a remote evaluation and consents to proceed with the evaluation remotely. Patient states reason for visit: Weight Management Initial DEMOGRAPHICS: Co-Morbidities: PAST MEDICAL HISTORY Diagnosis Date Abnormal Pap smear of cervix LEEP History of urinary self-catheterization 05/26/2017 ISC Morbid obesity (HCC) depression Spina bifida (HCC) Activity: sedentary -has appt with EP on 11/10/24 Symptoms: Patient's symptoms are as follows: Weight Concerns: weight gain How many hours of sleep on average? Did not report Diet History: Pt is currently IF (eats between noon-8 pm) 1 cup of coffee (heavy cream and syrup) in the morning Lunch ~3 pm: salad (lettuce, tomato, egg, small amount of dressing, strawberries/craisins/raisins) Snack: recently bought protein bars (clean bars) Dinner ~7 pm: protein + vegetables -put her snacks in single size servings (nuts) Stops eating at 8 pm Fluids: crystal light iced tea; 1 cup coffee/day; 40 oz water/day GI symptoms: constipation ETOH: none reported Dining/eating out? Less frequently since starting medication (ordered steak and potatoes last time she went out) Allergies: No Food Allergy Patient / Provider Comments: -pt started Trulicity ~1 month ago and overall she is tolerating -reports ~14 lb weight loss since starting Trulicity (starting weight 285 lbs, reports current weight ~269 lbs) -pt reports she has made a lot of diet changes since starting medication (pre-portioned snacks, healthier food choices etc.); wants to improve overall lifestyle -states she is currently IF and wants to continue this (eats between 12/noon-8 pm) -Dx: spina bifida but states she can walk -she lives with fiulisses, 2 kids; currently on disability Medications: Current Outpatient Medications Medication Sig traMADol (ULTRAM) 50 mg tablet Take 1 tablet by mouth three times a day for 56 days. pregabalin (LYRICA) 75 mg capsule Take 1 capsule by mouth three times a day for 56 days. tramadol HCl (TRAMADOL ORAL) Take 50 mg by mouth three times a day. dulaglutide (TRULICITY) 0.75 mg/0.5 mL pen injector Inject 0.75 mg subcutaneously one time a week. dulaglutide (TRULICITY) 1.5 mg/0.5 mL pen injector Inject 1.5 mg subcutaneously one time a week. Start 1 week after finishing prescription of 0.75 mg. cyclobenzaprine (FLEXERIL) 10 mg tablet Take 10 mg by mouth three times a day as needed. ondansetron orally disintegrating (ZOFRAN ODT) 4 mg disintegrating tablet Take 4 mg by mouth every 8 hours as needed for nausea/vomiting. IBUPROFEN (MOTRIN ORAL) Take by mouth. No current facility-administered medications for this visit. Labs: Lab Results Component Value Date HBA1C 5.5 09/08/2024 Cholesterol, Total Date Value Ref Range Status 04/28/2006 172 <200 mg/dL Final HDL Cholesterol Date Value Ref Range Status 04/28/2006 46 35 - 85 mg/dL Final LDL Calculated Date Value Ref Range Status 04/28/2006 104 <130 mg/dL Final Triglyceride Date Value Ref Range Status 04/28/2006 111 <150 mg/dL Final Glucose (mg/dL) Date Value 06/23/2024 80 06/17/2017 95 Potassium (mmol/L) Date Value 06/23/2024 4.2 06/17/2017 4.0 Sodium (mmol/L) Date Value 06/23/2024 139 06/17/2017 137 Chloride (mmol/L) Date Value 06/23/2024 106 06/17/2017 101 CO2 (mmol/L) Date Value 06/23/2024 21 06/17/2017 25 Creatinine (mg/dL) Date Value 06/23/2024 0.70 06/17/2017 0.70 BUN (mg/dL) Date Value 06/23/2024 13 06/17/2017 7 Anion Gap (mmol/L) Date Value 06/23/2024 12 06/17/2017 11 Calcium (mg/dL) Date Value 06/17/2017 8.1 Calcium, Total (mg/dL) Date Value 06/23/2024 9.0 Protein, Total (g/dL) Date Value 06/23/2024 6.9 06/10/2017 6.1 Albumin (g/dL) Date Value 06/23/2024 4.3 06/10/2017 3.3 Bilirubin, Total (mg/dL) Date Value 06/23/2024 0.4 06/10/2017 0.2 Alkaline Phosphatase (U/L) Date Value 06/23/2024 72 06/10/2017 59 AST (U/L) Date Value 06/23/2024 21 06/10/2017 12 ALT (U/L) Date Value 06/23/2024 25 06/10/2017 13 ANTHROPOMETRICS Height: Last 1 Encounter Ht Readings: Date: Ht: 09/08/2024 172.1 cm (5' 7.76 ) Current weight: Last 3 Encounter Wt Readings: Date: Wt: 09/08/2024 126.9 kg (279 lb 14 oz) 08/31/2024 127 kg (279 lb 15.8 oz) 08/01/2024 124.5 kg (274 lb 5.8 oz) BMI: 42.86 5% -10% Weight loss: 14-28 lbs Last Wt 09/08/24 : 126.9 kg (279 lb 14 oz) 5% weight loss = 266 lbs, 10% weight loss = 252 lbs READINESS TO LEARN Cognitive ability: Alert and oriented Motivation to learn: Interested Family support: Fiance, in background during visit Instruction provided to: Patient Patient learns best by: Individual Instruction Written Instruction - Hand-outs Verbal Instruction Factors affecting learning: None Physical limitations affecting learning: None Stage of Change: Action Nutrition Diagnosis: Food and nutrition related knowledge deficit, related to; lack of prior exposure to information , as evidenced by verbalizes inaccurate information and diet recall/nutrition hx. Calories Needed for Current Weight: Resting Metabolic Rate: 1966 Nutrition Intervention: Discussed the following nutrition topics today at the appointment: --Plate Method: at least 1/2 plate filled with low carb vegetables, 1/4 plate with a protein food that is not fried, 1/4 plate high fiber starch/carb --carbohydrate sources and effect on weight management --portion sizes for commonly eaten carbohydrate foods & basic carb counting --concepts of the Mediterranean diet for healthy carb choices --Consider keeping carbohydrate to 30-60 grams at each meal --protein sources (choosing lean options), portion sizes and daily protein goals --balanced snacks and pairing protein --discussed mindful eating practices and hunger/fullness scale --importance of not skipping meals, adding snacks as needed, and meal timing to support a healthy metabolism & appetite regulation --factors effecting rate of weight loss, healthy weight loss rates, weight plateaus --quick 10 minute meal ideas; reviewed sample carb controlled meal plan --emphasized lifestyle mold insert changer dieting mindset Education Materials: Thriving with the Mediterranean Lifestyle Nutrition Monitoring & Evaluation: Dietitian Goals: Weight Reduction of 5-10% within 6 months Aim for 3 balanced meals/day OR 2 meals and 2 snacks/day Criteria: Weight Diet recall Patient Stated Goals at today's visit: Continued weight loss Adherence Potential to Goals: Good Need for Follow up: with RD as needed, contact info and scheduling number provided. Referred by: Brayan Dave APRN.HIGH PRESSURE OPERATOR Consult Billing Type/Increments: Initial Assessment/15 minutes, 2 increment(s), 30 minutes Start time: 2:02 PM End time: 2:34 PM My final report will be communicated back to the requesting physician by way of shared medical record. Signed by: Maria Luisa Huber M.S., RDN, MATT documented in this encounter [facility] 10-05-2024 Note HNO ID: [id number] Author: MARIA LUISA HUBER RD Service: ? Author Type: Registered Dietitian Type: Progress Notes Filed: 10/05/2024 14:50 Note Text: [facility] Medical Nutrition Therapy Visit Type: Virtual: I have discussed the nature of this visit with the patient which will occur via [facility] (Phone, Virtual Visit) and she agrees to proceed with this interaction . I have communicated my name and active licensure. The patient's identity and physical location were verified at the time of this visit. Either the patient or their legal product support representative has been informed of the risks and benefits of -- and alternatives to -- treatment through a remote evaluation and consents to proceed with the evaluation remotely. Patient states reason for visit: Weight Management Initial DEMOGRAPHICS: Co-Morbidities: PAST MEDICAL HISTORY Diagnosis Date Abnormal Pap smear of cervix LEEP History of urinary self-catheterization 05/26/2017 ISC Morbid obesity (HCC) depression Spina bifida (HCC) Activity: sedentary -has appt with EP on 11/10/24 Symptoms: Patient's symptoms are as follows: Weight Concerns: weight gain How many hours of sleep on average? Did not report Diet History: Pt is currently IF (eats between noon-8 pm) 1 cup of coffee (heavy cream and syrup) in the morning Lunch ~3 pm: salad (lettuce, tomato, egg, small amount of dressing, strawberries/craisins/raisins) Snack: recently bought protein bars (clean bars) Dinner ~7 pm: protein + vegetables -put her snacks in single size servings (nuts) Stops eating at 8 pm Fluids: crystal light iced tea; 1 cup coffee/day; 40 oz water/day GI symptoms: constipation ETOH: none reported Dining/eating out? Less frequently since starting medication (ordered steak and potatoes last time she went out) Allergies: No Food Allergy Patient / Provider Comments: -pt started Trulicity ~1 month ago and overall she is tolerating -reports ~14 lb weight loss since starting Trulicity (starting weight 285 lbs, reports current weight ~269 lbs) -pt reports she has made a lot of diet changes since starting medication (pre-portioned snacks, healthier food choices etc.); wants to improve overall lifestyle -states she is currently IF and wants to continue this (eats between 12/noon-8 pm) -Dx: spina bifida but states she can walk -she lives with juan, 2 kids; currently on disability Medications: Current Outpatient Medications Medication Sig traMADol (ULTRAM) 50 mg tablet Take 1 tablet by mouth three times a day for 56 days. pregabalin (LYRICA) 75 mg capsule Take 1 capsule by mouth three times a day for 56 days. tramadol HCl (TRAMADOL ORAL) Take 50 mg by mouth three times a day. dulaglutide (TRULICITY) 0.75 mg/0.5 mL pen injector Inject 0.75 mg subcutaneously one time a week. dulaglutide (TRULICITY) 1.5 mg/0.5 mL pen injector Inject 1.5 mg subcutaneously one time a week. Start 1 week after finishing prescription of 0.75 mg. cyclobenzaprine (FLEXERIL) 10 mg tablet Take 10 mg by mouth three times a day as needed. ondansetron orally disintegrating (ZOFRAN ODT) 4 mg disintegrating tablet Take 4 mg by mouth every 8 hours as needed for nausea/vomiting. IBUPROFEN (MOTRIN ORAL) Take by mouth. No current facility-administered medications for this visit. Labs: Lab Results Component Value Date HBA1C 5.5 09/08/2024 Cholesterol, Total Date Value Ref Range Status 04/28/2006 172 <200 mg/dL Final HDL Cholesterol Date Value Ref Range Status 04/28/2006 46 35 - 85 mg/dL Final LDL Calculated Date Value Ref Range Status 04/28/2006 104 <130 mg/dL Final Triglyceride Date Value Ref Range Status 04/28/2006 111 <150 mg/dL Final Glucose (mg/dL) Date Value 06/23/2024 80 06/17/2017 95 Potassium (mmol/L) Date Value 06/23/2024 4.2 06/17/2017 4.0 Sodium (mmol/L) Date Value 06/23/2024 139 06/17/2017 137 Chloride (mmol/L) Date Value 06/23/2024 106 06/17/2017 101 CO2 (mmol/L) Date Value 06/23/2024 21 06/17/2017 25 Creatinine (mg/dL) Date Value 06/23/2024 0.70 06/17/2017 0.70 BUN (mg/dL) Date Value 06/23/2024 13 06/17/2017 7 Anion Gap (mmol/L) Date Value 06/23/2024 12 06/17/2017 11 Calcium (mg/dL) Date Value 06/17/2017 8.1 Calcium, Total (mg/dL) Date Value 06/23/2024 9.0 Protein, Total (g/dL) Date Value 06/23/2024 6.9 06/10/2017 6.1 Albumin (g/dL) Date Value 06/23/2024 4.3 06/10/2017 3.3 Bilirubin, Total (mg/dL) Date Value 06/23/2024 0.4 06/10/2017 0.2 Alkaline Phosphatase (U/L) Date Value 06/23/2024 72 06/10/2017 59 AST (U/L) Date Value 06/23/2024 21 06/10/2017 12 ALT (U/L) Date Value 06/23/2024 25 06/10/2017 13 ANTHROPOMETRICS Height: Last 1 Encounter Ht Readings: Date: Ht: 09/08/2024 172.1 cm (5' 7.76 ) Current weight: Last 3 Encounter Wt Readings: Date: Wt: 09/08/2024 126.9 kg (279 l (more content not included)... [facility] 09-12-2024 Telephone encounter Note No appt upcoming with pcp, will defer to him to make arrangements One month rx written The following approved medication requests have been transmitted electronically. Requested Prescriptions Signed Prescriptions Disp Refills traMADol (ULTRAM) 50 mg tablet 84 tablet 0 Sig: Take 1 tablet by mouth three times a day for 56 days. Authorizing Provider: TRACIE WILLIAMSON pregabalin (LYRICA) 75 mg capsule 84 capsule 0 Sig: Take 1 capsule by mouth three times a day for 56 days. Authorizing Provider: TRACIE WILLIAMSON APRN.HIGH PRESSURE OPERATOR [facility] 09-12-2024 Miscellaneous Notes No appt upcoming with pcp, will defer to him to make arrangements One month rx written The following approved medication requests have been transmitted electronically. Requested Prescriptions Signed Prescriptions Disp Refills traMADol (ULTRAM) 50 mg tablet 84 tablet 0 Sig: Take 1 tablet by mouth three times a day for 56 days. Authorizing Provider: TRACIE WILLIAMSON pregabalin (LYRICA) 75 mg capsule 84 capsule 0 Sig: Take 1 capsule by mouth three times a day for 56 days. Authorizing Provider: TRACIE WILLIAMSON APRN.HIGH PRESSURE OPERATOR Received request for refill of the following medications: Requested Prescriptions Pending Prescriptions Disp Refills traMADol (ULTRAM) 50 mg tablet 84 tablet 1 Sig: Take 1 tablet by mouth three times a day for 56 days. pregabalin (LYRICA) 75 mg capsule 84 capsule 1 Sig: Take 1 capsule by mouth three times a day for 56 days. Patient requested a 30 day refill. Pharmacy verified and updated accordingly. Patient was last seen by PCP team/provider: 08/31/24. Upcoming appointment scheduled: none. documented in this encounter [facility] 09-12-2024 Telephone encounter Note Spoke with pt advised an appt needed, she stated she will call or make an appt inline [facility] 09-12-2024 Miscellaneous Notes Spoke with pt advised an appt needed, she stated she will call or make an appt inline documented in this encounter [facility] 09-12-2024 Telephone encounter Note Received request for refill of the following medications: Requested Prescriptions Pending Prescriptions Disp Refills traMADol (ULTRAM) 50 mg tablet 84 tablet 1 Sig: Take 1 tablet by mouth three times a day for 56 days. pregabalin (LYRICA) 75 mg capsule 84 capsule 1 Sig: Take 1 capsule by mouth three times a day for 56 days. Patient requested a 30 day refill. Pharmacy verified and updated accordingly. Patient was last seen by PCP team/provider: 08/31/24. Upcoming appointment scheduled: none. [facility] 09-08-2024 Instructions Brayan Dave APRN.[facility] - 09/08/2024 2:20 PM EST Start Trulicity 0.75 mg weekly for 4 weeks, then increase to 1.5 mg weekly. -Possible side effects of this class of medications: nausea, reflux, constipation, redness/irritation at the injection site. If you experience nausea or reflux, eating smaller meals can be helpful. -Acute pancreatitis is a rare side effect, presents with severe abdominal pain, nausea/vomiting--go to ER if you experience these side effects. -For more information on the medication, including instructions on how to administer the medication, visit www.[employer] General recommendations: - Weight loss medications are more effective if combined with healthy diets and routine exercise - Recommend a daily probiotic (such as Culturelle or Align, or similar) for healthy gut biome - Weigh yourself at least once per week - Recommend diet/nutrition trackers (food log, MyFitnessPal) and activity trackers (smart watch, etc) - Adequate, good quality sleep is an important part of weight management. We recommend 7-8 hours of sleep nightly and routine sleep schedules when possible. - For females of child-bearing age: it is not recommended to become while taking medications for weight loss. Please contact our office if you become . Follow-up with [facility] Follow-up with [facility] Follow-up with me in 3 months documented in this encounter [facility] 09-08-2024 Note HNO ID: [id number] Author: BRAYAN DAVE APRN.[facility] Service: ? Author Type: Nurse Practitioner Type: Progress Notes Filed: 09/08/2024 14:33 Note Text: [facility] NEW PATIENT VISIT HISTORY OF PRESENT ILLNESS: Patient is 43 year old year old female with a history of obesity class 3, multiple thyroid nodules (managed by Dr. Dave), fatty liver, spina bifida, chronic LBP, vitamin D deficiency presenting as a new patient to me for weight management. Referred by: Aidan Montenegro MD Consultation requested for an opinion regarding weight management and my final recommendations will be communicated back to the requesting physician by way of shared medical record or letter via US mail. Weight history: Struggled with weight since back surgery in 2016 Previous attempts at weight loss: mindful eating, avoiding SSB Most weight lost: 40 lbs with weight loss supplements, exercise Weight at end of high school: 180 lbs Maximum weight: 285 lbs Current weight: 279 lbs Patient goal or motivation for weight loss: reduce pain, feel safe having thyroid surgery Weight graph: Factors associated with weight gain: Family history of overweight: dad's side Weight gain associated with or menopause: yes, with son Tobacco use: quit 07/21/24 Weight gain associated with shift work: no Poor quality, unrestful sleep: yes Medications that may be associated with weight gain: Lyrica, tramadol Diet: 24 hour recall: B: none L: none D at 1500: hamburger with dutch and mushroom, 1 cup [employer] fries Sn: none Beverages: 12 oz frappucino, Body Armor, Gatorade, water with Crystal Light Sugar-containing beverages: coffee with creamer EtOH: rarely Eating out/take out: varies, eating out a lot lately Feel hungry frequently: no Takes more food than average to feel full: no Feels hungry quickly after eating a meal: no Eat when not hungry (boredom, stress/emotional): no Frequent cravings or preoccupation with food: craves sweets after meal Frequently overeating or binge eating: no Portion control: no Late night or middle of night eating: sometimes snacks on peanuts Exercise/activity level: No structured exercise Walks at mall sometimes Limited by chronic back pain Sleep: Averages 4 hours per night Has difficulty falling and staying asleep, has racing thoughts, struggles to get comfortable d/t back pain, has nocturia 2/2 neurogenic bladder Does not feel rested upon waking Denies snoring JOCY: never tested CPAP: no Mood, stress: Mood is good Stress elevated Social: Employment: on disability Substance use: no Lives with fiance, 2 kids Previous experience with weight loss medications: Bupropion: no Naltrexone: no Phentermine: no Topiramate: took previously for COSTA (didn't take regularly) GLP-1: no Metformin: no Previous experience with weight loss treatments: History of bariatric surgery or interest in bariatric surgery: as a last resort Has the patient participated in a comprehensive weight loss program for the past 6 months (i.e. Weight Watchers, Noom, medically supervised programs, etc.)? no Medical history pertaining to weight loss medications: History of pancreatitis or gallstones: no History of kidney stones: no History of seizures or bulimia nervosa: no Current opiate use: no History of glaucoma: no History of CAD or uncontrolled HTN: no Personal/family history of MEN2, MTC: no History of diabetic retinopathy: no Method of contraception if woman of child bearing age: no REVIEW OF SYSTEMS: Per HPI MEDICAL, FAMILY, and SOCIAL HISTORY: Reviewed and updated in chart. ACTIVE PROBLEM LIST Smoker Spina Bifida (Hcc) Latex Allergy Tethered Cord (Hcc) Morbid Obesity With Bmi of 40.0-44.9, Adult (Hcc) History of Urinary Self-Catheterization Monocular Exotropia With Other Noncomitancies, Left Eye Hypotropia of Left Eye Vitamin D Deficiency Urge Incontinence Neurogenic Bladder Chronic Lower Back Pain Multiple Thyroid Nodules Current Outpatient Medications on File Prior to Visit Medication Sig tramadol HCl (TRAMADOL ORAL) Take 50 mg by mouth three times a day. cyclobenzaprine (FLEXERIL) 10 mg tablet Take 10 mg by mouth three times a day as needed. pregabalin (LYRICA) 75 mg capsule Take 1 capsule by mouth three times a day for 56 days. IBUPROFEN (MOTRIN ORAL) Take by mouth. ondansetron orally disintegrating (ZOFRAN ODT) 4 mg disintegrating tablet Take 4 mg by mouth every 8 hours as needed for nausea/vomiting. No current facility-administered medications on file prior to visit. PHYSICAL EXAM: BP 120/72 (BP Site: Right Arm, BP Position: Sitting, BP Cuff Size: Large Adult) Pulse 101 Temp 36.9 ?C (98.4 ?F) (Temporal) Ht 172.1 cm (5' 7.76 ) Wt 126.9 kg (279 lb 14 oz) LMP 08/28/2024 (Exact Date) BMI 42.86 kg/m? General: well appearing Neck: supple, no LAD, no thyrom (more content not included)... [facility] 09-08-2024 History of Present illness Narrative Images from the original note were not included. [facility] NEW PATIENT VISIT HISTORY OF PRESENT ILLNESS: Patient is 43 year old year old female with a history of obesity class 3, multiple thyroid nodules (managed by Dr. Dave), fatty liver, spina bifida, chronic LBP, vitamin D deficiency presenting as a new patient to me for weight management. Referred by: Aidan Montenegro MD Consultation requested for an opinion regarding weight management and my final recommendations will be communicated back to the requesting physician by way of shared medical record or letter via US mail. Weight history: Struggled with weight since back surgery in 2016 Previous attempts at weight loss: mindful eating, avoiding SSB Most weight lost: 40 lbs with weight loss supplements, exercise Weight at end of high school: 180 lbs Maximum weight: 285 lbs Current weight: 279 lbs Patient goal or motivation for weight loss: reduce pain, feel safe having thyroid surgery Weight graph: Factors associated with weight gain: Family history of overweight: dad's side Weight gain associated with or menopause: yes, with son Tobacco use: quit 07/21/24 Weight gain associated with shift work: no Poor quality, unrestful sleep: yes Medications that may be associated with weight gain: Lyrica, tramadol Diet: 24 hour recall: B: none L: none D at 1500: hamburger with dutch and mushroom, 1 cup [employer] fries Sn: none Beverages: 12 oz frappucino, Body Armor, Gatorade, water with Crystal Light Sugar-containing beverages: coffee with creamer EtOH: rarely Eating out/take out: varies, eating out a lot lately Feel hungry frequently: no Takes more food than average to feel full: no Feels hungry quickly after eating a meal: no Eat when not hungry (boredom, stress/emotional): no Frequent cravings or preoccupation with food: craves sweets after meal Frequently overeating or binge eating: no Portion control: no Late night or middle of night eating: sometimes snacks on peanuts Exercise/activity level: No structured exercise Walks at mall sometimes Limited by chronic back pain Sleep: Averages 4 hours per night Has difficulty falling and staying asleep, has racing thoughts, struggles to get comfortable d/t back pain, has nocturia 2/2 neurogenic bladder Does not feel rested upon waking Denies snoring JOCY: never tested CPAP: no Mood, stress: Mood is good Stress elevated Social: Employment: on disability Substance use: no Lives with fiance, 2 kids Previous experience with weight loss medications: Bupropion: no Naltrexone: no Phentermine: no Topiramate: took previously for COSTA (didn't take regularly) GLP-1: no Metformin: no Previous experience with weight loss treatments: History of bariatric surgery or interest in bariatric surgery: as a last resort Has the patient participated in a comprehensive weight loss program for the past 6 months (i.e. Weight Watchers, Noom, medically supervised programs, etc.)? no Medical history pertaining to weight loss medications: History of pancreatitis or gallstones: no History of kidney stones: no History of seizures or bulimia nervosa: no Current opiate use: no History of glaucoma: no History of CAD or uncontrolled HTN: no Personal/family history of MEN2, MTC: no History of diabetic retinopathy: no Method of contraception if woman of child bearing age: no REVIEW OF SYSTEMS: Per HPI MEDICAL, FAMILY, and SOCIAL HISTORY: Reviewed and updated in chart. ACTIVE PROBLEM LIST Smoker Spina Bifida (Hcc) Latex Allergy Tethered Cord (Hcc) Morbid Obesity With Bmi of 40.0-44.9, Adult (Hcc) History of Urinary Self-Catheterization Monocular Exotropia With Other Noncomitancies, Left Eye Hypotropia of Left Eye Vitamin D Deficiency Urge Incontinence Neurogenic Bladder Chronic Lower Back Pain Multiple Thyroid Nodules Current Outpatient Medications on File Prior to Visit Medication Sig tramadol HCl (TRAMADOL ORAL) Take 50 mg by mouth three times a day. cyclobenzaprine (FLEXERIL) 10 mg tablet Take 10 mg by mouth three times a day as needed. pregabalin (LYRICA) 75 mg capsule Take 1 capsule by mouth three times a day for 56 days. IBUPROFEN (MOTRIN ORAL) Take by mouth. ondansetron orally disintegrating (ZOFRAN ODT) 4 mg disintegrating tablet Take 4 mg by mouth every 8 hours as needed for nausea/vomiting. No current facility-administered medications on file prior to visit. PHYSICAL EXAM: BP 120/72 (BP Site: Right Arm, BP Position: Sitting, BP Cuff Size: Large Adult) Pulse 101 Temp 36.9 C (98.4 F) (Temporal) Ht 172.1 cm (5' 7.76 ) Wt 126.9 kg (279 lb 14 oz) LMP 08/28/2024 (Exact Date) BMI 42.86 kg/m General: well appearing Neck: supple, no LAD, no thyromegaly CV: RRR, no murmur Respiratory: breathing comfortably, symmetric chest rise, lungs are CTAB Neuro: speech and language are normal, no obvious deficits Extremities: no edema, warm and well perfused PERTINENT LABORATORY AND IMAGING: All pertinent laboratory / test results were reviewed Latest Ref Rng 02/22/2024 06/23/2024 09/08/2024 Protein, Total 6.3 - 8.0 g/dL 6.9 Albumin 3.9 - 4.9 g/dL 4.3 Calcium 8.5 - 10.2 mg/dL 9.0 Bilirubin, Total 0.2 - 1.3 mg/dL 0.4 Alkaline Phosphatase 34 - 123 U/L 72 AST 13 - 35 U/L 21 ALT 7 - 38 U/L 25 Glucose 74 - 99 mg/dL 80 BUN 7 - 21 mg/dL 13 Creatinine 0.58 - 0.96 mg/dL 0.70 Sodium 136 - 144 mmol/L 139 Potassium 3.7 - 5.1 mmol/L 4.2 Chloride 98 - 107 mmol/L 106 CO2 22 - 30 mmol/L 21 (L) Anion Gap 8 - 15 mmol/L 12 eGFR >=60 mL/min/1.73m 110 TSH 0.270 - 4.200 mIU/L 1.370 Free T4 0.9 - 1.7 ng/dL 1.2 THYROID PEROXIDASE ANTIBODY <5.6 IU/mL <3.0 Hemoglobin A1C (POCT) 4.3 - 5.6 % 5.5 Legend: (L) Low ASSESSMENT: (E66.01) Severe obesity (BMI >= 40) (HCC) (primary encounter diagnosis) (Z68.41) BMI 40.0-44.9, adult (HCC) (E04.2) Multiple thyroid nodules (K76.0) Fatty liver (Q05.9) Spina bifida, unspecified hydrocephalus presence, unspecified spinal region (HCC) (M54.41, G89.29) Chronic bilateral low back pain with right-sided sciatica (Z79.899) Medication management (Z71.3) Dietary counseling (Z71.82) Exercise counseling - Patient comes today for evaluation and weight management and its comorbidities. Patient has a BMI of 42.86 that is consistent with OBESITY CLASS 3. - Patient tried different weight loss modalities in the past including mindful eating, avoiding SSB. - Pertinent co-morbidities of obesity include multiple thyroid nodules (managed by Dr. Dave), fatty liver, spina bifida, chronic LBP, vitamin D deficiency. - Patient's health and quality of life are compromised due to current weight and patient is motivated for weight loss. Our goal is to treat obesity to decrease long-term medical complications, comorbidities and improve lifestyle. PLAN: - Reviewed principles of energy metabolism, caloric intake and expenditure - Goals: -- 5-10% weight loss over 6 months is reasonable -- At least 6-month commitment to losing weight - Diet: restrictive, one meal per day, highly-processed, high-calorie -- Will refer to [facility] dietitian to discuss nutrition and identify the best approach and the individualized nutritional plan--low-carb Mediterranean -- Portion control -- No skipping meals to avoid severe hunger, which can contribute to larger portions, overeating, less healthy dietary choices, etc. - Pharmacotherapy: -- I have reviewed with the patient the possibility of using weight loss medications and the various options available. -- Recommend starting Trulicity 0.75 mg weekly for 4 weeks, then increase to 1.5 mg weekly. Discussed expectations, risks, benefits, and common side effects of the prescribed medications. Patient has no history of pancreatitis and no personal or family history of medullary thyroid cancer/c-cell hyperplasia. -- Reviewed that there are no contraindications to the above medications; discussed expectations and common side effects of the prescribed medications. -- Reviewed that is not recommended while taking weight loss medications. -- Exercise: no structured exercise, limited by chronic back pain -- Discussed basic exercise recommendations, the role of exercise on weight loss and maintenance. Discussed the combination of aerobic and resistance exercise. -- Most patients benefit from a personalized exercise program. Will refer to [facility] rewrite editor. -- Recommend gradual increase in exercise. Goal is 150 minutes moderate-intensity exercise per week + strength training/resistance exercise 2 days per week. -- Sleep: inadequate, interrupted by racing thoughts, pain, nocturia d/t neurogenic bladder -- Discussed the importance of sleep hygiene -- Recommend 7-8 hours sleep per night -- Behavioral: -- Discussed the effect of stress and its relationship with weight gain. Stress management is very important. -- Self monitoring: suggest home weigh-ins at least 1x/week, food journals / trackers (Food log, My Fitness Pal), activity journals / trackers (iGuiders watch, AlphaSmart Bit, Tectura vivofit, Striiv). Orders placed: Orders Placed This Encounter HEMOGLOBIN A1C (POC) ENDOCRINOLOGY DIETITIAN VISIT (MNT) Standing Status: Future Standing Expiration Date: 09/08/2025 Scheduling Instructions: Appointment type requested: General nutrition education (ie: celiac disease, PCOS, Low fat, Other) and Mediterranean - low carb This order is valid for 12 months from the date of order. PLEASE SCHEDULE THIS VISIT IN YOUR [employer] ACCOUNT, OR CALL TO SCHEDULE FOLLOWS: [facility] [phone] ALL OTHER [facility] [phone] Order Specific Question: Does consulting provider have [facility] Epic access? Answer: Yes ENDOCRINE EXERCISE PROGRAM Standing Status: Future Standing Expiration Date: 09/08/2025 Order Specific Question: Does consulting provider have [facility] Epic access? Answer: Yes tramadol HCl (TRAMADOL ORAL) Sig: Take 50 mg by mouth three times a day. dulaglutide (TRULICITY) 1.5 mg/0.5 mL pen injector Sig: Inject 1.5 mg subcutaneously one time a week. Start 1 week after finishing prescription of 0.75 mg. Dispense: 2 mL Refill: 1 dulaglutide (TRULICITY) 0.75 mg/0.5 mL pen injector Sig: Inject 0.75 mg subcutaneously one time a week. Dispense: 2 mL Refill: 0 I have reviewed the ROS/Questionnaire with patient and recommend the following: Pt will follow-up with PCP for chronic health issues and preventive health screenings. All questions answered today. Follow-up in 3 months I spent a total of 45 minutes on the date of the service which included preparing to see the patient, [id number] patient care, completing clinical documentation, obtaining and/or reviewing separately obtained history, performing a medically appropriate examination, counseling and educating the patient/family/caregiver, and ordering medications, tests, or procedures. Brayan Dave APRN.[facility] documented in this encounter [facility] 08-31-2024 Note HNO ID: [id number] Author: AIDAN MONTENEGRO MD Service: ? Author Type: Physician Type: Progress Notes Filed: 08/31/2024 16:58 Note Text: Karlene Tom is a 43 year old female Chief complaint: Recheck (Dizziness follow up, also thinks she has a UTI. Burning, frequency, etc x 5 days. Self caths. Also requesting refills) Subjective HPI: Update since last visit: C/o burning with urination, urgency, frequency for past 1 week. Reports about 6 UTI in past 1 year. Urinary irritants: Stimulants: coffee 3-4 days/week, tea 1 day/week, chocolate 3 days/week, weight loss products Medications: diuretics, stimulants, others Carbonation: soda/seltzer day/week, energy drinks (Redbull, Monster) Alcohol: 1 day/month 1 drink. Nicotine: Spicy food / hot sauce / hot peppers: Smoke: 1 ppd for 30 years, quitting, last cig 07/21/24 Currently using vaping, trying to quit as week Exercise: no. H/o neurogenic bladder had botox injection last week. Prescribed ciprofloxacin and reports had mouth and body itching Follow up Urology History: H/o spina bifida and tethered cord with myelomeningocele repair at and reviion on 1994 and 2016, complicated with neurogenic bowel and bladder. Follow up Neurology, last appointment 01/19/24 H/o chronic pain in low back pain and leg pain chronic, treated with pregabalin and tramadol, ketamine infusions. Follow up neurology and neurosurgery. Thyroid nodules with tenderness followed by endocrinology. PMDP: Filled Written ID Drug QTY Days Prescriber RX # Dispenser Refill Daily Dose* Pymt Type OFFICE ASSOCIATE 07/04/2024 07/04/2024 1 Tramadol Hcl 50 Mg Tablet 84.[address] [id number] [place] ([id number]) 0 30.00 MME Medicaid [place] 07/04/2024 07/04/2024 1 Pregabalin 75 Mg Capsule 84.[address] [facility] [id number] [place] ([id number]) 0 1.51 LME Medicaid [place] Review of Systems Constitutional: Negative for chills, fatigue, fever and unexpected weight change. No recent history of trauma, surgery, infection or malignancy. HENT: Negative for congestion, rhinorrhea, sore throat, trouble swallowing and voice change. Respiratory: Negative for cough and shortness of breath. Cardiovascular: Negative for chest pain. Gastrointestinal: Positive for abdominal distention, abdominal pain, constipation, diarrhea and nausea. Negative for blood in stool and vomiting. Positive heartburn and reflux. Genitourinary: Negative for pelvic pain. Musculoskeletal: Positive for arthralgias, back pain and myalgias. Psychiatric/Behavioral: Negative for dysphoric mood and sleep disturbance. The patient is not nervous/anxious. Objective BP 128/84 (BP Site: Right Arm, BP Position: Sitting, BP Cuff Size: Large Adult) Pulse 69 Temp 36.6 ?C (97.8 ?F) (Temporal) Wt 127 kg (279 lb 15.8 oz) LMP 08/28/2024 (Exact Date) SpO2 98% BMI 43.85 kg/m? BMI Readings from Last 3 Encounters: 08/31/24 : 43.85 kg/m? 08/01/24 : 42.97 kg/m? 06/23/24 : 43.30 kg/m? Last Wt 08/31/24 : 127 kg (279 lb 15.8 oz) 08/01/24 : 124.5 kg (274 lb 5.8 oz) 06/23/24 : 125.4 kg (276 lb 7.3 oz) Last BP 08/31/24 : 128/84 06/23/24 : 118/82 05/19/24 : 108/89 Physical Exam Constitutional: Appearance: Normal appearance. HENT: [...] and Affect: Mood normal. Behavior: Behavior normal. .this No results found for: HBA1C , HBA0 HBA0=Estimated average glucose Lab Results Component Value Date CHOL 172 04/28/2006 CHOL 178.0 11/21/2004 HDL 46 04/28/2006 HDL 51 11/21/2004 LDL 104 04/28/2006 LDL 105 11/21/2004 TG 111 04/28/2006 TG 111 11/21/2004 Lab Results Component Value Date GLUC 80 06/23/2024 BUN 13 06/23/2024 CREAT 0.70 06/23/2024 NA 139 06/23/2024 K 4.2 06/23/2024 CHLOR 106 06/23/2024 CO2 21 (L) 06/23/2024 TPROT 6.9 06/23/2024 ALB 4.3 06/23/2024 CA 9.0 06/23/2024 ALKPHOS 72 06/23/2024 TBILI 0.4 06/23/2024 AST 21 06/23/2024 ALT 25 06/23/2024 No results found for: PCRAT , UALBCR PCRAT=Protein Creatinine Ratio; UABCR=Albumin Creat Ratio Lab Results Component Value Date TSH 1.370 02/22/2024 TSH 2.590 06/11/2017 TSH 1.55 11/15/2007 FREET4 1.2 02/22/2024 FREET4 1.16 11/21/2004 TPOAB <3.0 02/22/2024 07/01/24 liver: Hepatic steatosis. Impression/Recommendations Social History Social History Narrative Not on file Karlene Tom is a 43 year old female - Neurogenic blad (more content not included)... [facility] 08-10-2024 Telephone encounter Note Referred to an affiliated practice that is known to prescribe. Called pt. [facility] 08-10-2024 Miscellaneous Notes Referred to an affiliated practice that is known to prescribe. Called ptAnabel [facility] documented in this encounter [facility] 08-10-2024 Telephone encounter Note Patient was advised of the following: This is a follow up phone call regarding your appointment with Dr Velazquez, which you are scheduled to see at [facility] on 08/10/2024 . 1) Have you been evaluated and treated by a Pain Management physician currently or in the past? If so, we will need a release of care from your previous physician. 2) Have you had any outside x-rays or MRI's related to the pain you are being seen for? If so, please bring copies to your appointment with you. Also please recall that our physicians will not take over medications. You will need to make sure you have enough pain medications to last until your follow up appointment with your current prescribing physician. Dr. Velazquez is primarily an interventional pain management provider, which means, they treat with physical therapy, injections and non-narcotic medications. Any questions or you need to reschedule please call us at [phone]. Left VM with new patient policy advised to call office with any questions or concerns Radha Harvey MA [facility] 08-10-2024 Miscellaneous Notes Patient was advised of the following: This is a follow up phone call regarding your appointment with Dr Velazquez, which you are scheduled to see at [facility] on 08/10/2024 . 1) Have you been evaluated and treated by a Pain Management physician currently or in the past? If so, we will need a release of care from your previous physician. 2) Have you had any outside x-rays or MRI's related to the pain you are being seen for? If so, please bring copies to your appointment with you. Also please recall that our physicians will not take over medications. You will need to make sure you have enough pain medications to last until your follow up appointment with your current prescribing physician. Dr. Velazquez is primarily an interventional pain management provider, which means, they treat with physical therapy, injections and non-narcotic medications. Any questions or you need to reschedule please call us at [phone]. Left VM with new patient policy advised to call office with any questions or concerns Radha Harvey MA documented in this encounter [facility] 08-03-2024 Note Patient Outreach (IN [facility]MM[facility]) KARLENE TOM ([id number]) 1980 F Date Time Provider Department 08/03/24 AIDAN MONTENEGRO During your visit today, we recorded the following information about you: Allergies As of Date: 08/03/2024 Noted Allergy Reaction AMOXICILLIN 06/17/2024 4 - Hives LATEX 11/15/2007 10 - Anaphylaxis CIPROFLOXACIN 05/18/2023 4 - Hives 9 - Itching MORPHINE 05/26/2017 8 - GI Upset NEOSPORIN ([id number]* 2 2 - Rash SILVER SULFADIAZINE 01/18/2024 14 - Other: See Comments ZINC OXIDE 10/07/2011 2 - Rash Date Reviewed: 08/01/2024 Reviewed by: Aidan Montenegro MD - Fully Assessed Visit Diagnosis:Encounter for screening mammogram for breast cancer [Z12.31] Order(s):[facility]CRE[facility] STEFFEN [[id number]] Order #: [id number] FUTURE Prescriptions as of 08/08/2024 - cyclobenzaprine (FLEXERIL) 10 mg tablet Take 1 tablet by mouth as needed for muscle spasm. - traMADol (ULTRAM) 50 mg tablet Take 1 tablet by mouth three times a day for 56 days. - pregabalin (LYRICA) 75 mg capsule Take 1 capsule by mouth three times a day for 56 days. - omeprazole (PRILOSEC) 20 mg capsule Take 1 capsule by mouth once daily. - cefdinir (OMNICEF) 300 mg capsule Take 1 capsule by mouth every 12 hours. - ondansetron orally disintegrating (ZOFRAN ODT) 4 mg disintegrating tablet Take 4 mg by mouth every 8 hours as needed for nausea/vomiting. - Simethicone 125 mg chewable tablet Take 1 tablet by mouth three times a day as needed (bloating). - IBUPROFEN (MOTRIN ORAL) Take by mouth. - Walker (ULTRA-LIGHT ROLLATOR) misc 1 Units as needed. Rollator with seat Problem List As Of Date 08/03/2024 Noted Resolved Unspecified site of sprain and [...] thyroid nodules [E04.2] 04/08/2024 Encounter Status:Closed by Upverter, PRODUSER on 08/08/24 [facility] 08-01-2024 Note HNO ID: [id number] Author: AIDAN MONTENEGRO MD Service: ? Author Type: Physician Type: Progress Notes Filed: 08/01/2024 17:33 Note Text: Karlene Tom is a 43 year old female Chief complaint: Refill Request, Back Pain (Mid back), Nausea, Abdominal Pain, and Diarrhea (X1 week. ) Subjective HPI: Update since last visit: RUQ pain improved with tratment of omeprazole and simethicone. US abdomen showed fatty liver. Reviewed labs normal. Alcohol: 1 day/month 1 drink. Smoke: 1 ppd for 30 years, quitting, last cig 07/21/24 Currently using vaping, trying to quit as week Exercise: no. History: H/o spina bifida and tethered cord with myelomeningocele repair at and reviion on 1994 and 2016, complicated with neurogenic bowel and bladder. Follow up Neurology, last appointment 01/19/24 H/o neurogenic bladder had botox injection last week. Prescribed ciprofloxacin and reports had mouth and body itching Follow up Urology H/o chronic pain in low back pain and leg pain chronic, treated with pregabalin and tramadol, ketamine infusions. Follow up neurology and neurosurgery. Thyroid nodules with tenderness followed by endocrinology. PMDP: Filled Written ID Drug QTY Days Prescriber RX # Dispenser Refill Daily Dose* Pymt Type OFFICE ASSOCIATE 07/04/2024 07/04/2024 1 Tramadol Hcl 50 Mg Tablet 84.[address] [id number] [place] (1952) 0 30.00 E [place] 07/04/2024 07/04/2024 1 Pregabalin 75 Mg Capsule 84.[address] u [id number] [place] ([id number]) 0 1.51 LME [place] Review of Systems Constitutional: Negative for chills, fatigue, fever and unexpected weight change. No recent history of trauma, surgery, infection or malignancy. HENT: Negative for congestion, rhinorrhea, sore throat, trouble swallowing and voice change. Respiratory: Negative for cough and shortness of breath. Cardiovascular: Negative for chest pain. Gastrointestinal: Positive for abdominal distention, abdominal pain, constipation, diarrhea and nausea. Negative for blood in stool and vomiting. Positive heartburn and reflux. Genitourinary: Negative for pelvic pain. Musculoskeletal: Positive for arthralgias, back pain and myalgias. Psychiatric/Behavioral: Negative for dysphoric mood and sleep disturbance. The patient is not nervous/anxious. Objective Wt 124.5 kg (274 lb 5.8 oz) LMP 07/31/2024 (Approximate) SpO2 96% BMI 42.97 kg/m? 08/01/24 1554 08/01/24 1556 08/01/24 1557 SpO2: 96% Weight: 124.5 kg (274 lb 5.8 oz) Orthostatic BP: 128 125/88 126/86 BP Position: Supine Sitting Standing Orthostatic Pulse: 87 83 104 BMI Readings from Last 3 Encounters: 08/01/24 : 42.97 kg/m? 06/23/24 : 43.30 kg/m? 04/08/24 : 44.47 kg/m? Last Wt 08/01/24 : 124.5 kg (274 lb 5.8 oz) 06/23/24 : 125.4 kg (276 lb 7.3 oz) 04/08/24 : 128.8 kg (283 lb 15.2 oz) Last BP 06/23/24 : 118/82 05/19/24 : 108/89 04/26/24 : 116/63 Physical Exam Constitutional: Appearance: Normal appearance. HENT: [...] 11/21/2004 Lab Results Component Value Date GLUC 80 06/23/2024 BUN 13 06/23/2024 CREAT 0.70 06/23/2024 NA 139 06/23/2024 K 4.2 06/23/2024 CHLOR 106 06/23/2024 CO2 21 (L) 06/23/2024 TPROT 6.9 06/23/2024 ALB 4.3 06/23/2024 CA 9.0 06/23/2024 ALKPHOS 72 06/23/2024 TBILI 0.4 06/23/2024 AST 21 06/23/2024 ALT 25 06/23/2024 No results found for: PCRAT , UALBCR PCRAT=Protein Creatinine Ratio; UABCR=Albumin Creat Ratio Lab Results Component Value Date TSH 1.370 02/22/2024 TSH 2.590 06/11/2017 TSH 1.55 11/15/2007 FREET4 1.2 02/22/2024 FREET4 1.16 11/21/2004 TPOAB <3.0 02/22/2024 07/01/24 US liver: Hepatic steatosis. Impression/Recommendations Social History Social History Narrative Not on file Karlene Tom is a 43 year old female - H/o spina bifida and tethered cord with myelomeningocele repair at and reviion on 1994 and 2016, - Chronic pain in low back pain and leg pain chronic, treated with pregabalin and tramadol. Follow up Neurology, last appointment 01/19/24 - N (more content not included)... [facility] 08-01-2024 History of Present illness Narrative Karlene Tom is a 43 year old female Chief complaint: Refill Request, Back Pain (Mid back), Nausea, Abdominal Pain, and Diarrhea (X1 week. ) Subjective HPI: Update since last visit: RUQ pain improved with tratment of omeprazole and simethicone. US abdomen showed fatty liver. Reviewed labs normal. Alcohol: 1 day/month 1 drink. Smoke: 1 ppd for 30 years, quitting, last cig 07/21/24 Currently using vaping, trying to quit as week Exercise: no. History: H/o spina bifida and tethered cord with myelomeningocele repair at and reviion on 1994 and 2016, complicated with neurogenic bowel and bladder. Follow up Neurology, last appointment 01/19/24 H/o neurogenic bladder had botox injection last week. Prescribed ciprofloxacin and reports had mouth and body itching Follow up Urology H/o chronic pain in low back pain and leg pain chronic, treated with pregabalin and tramadol, ketamine infusions. Follow up neurology and neurosurgery. Thyroid nodules with tenderness followed by endocrinology. PMDP: Filled Written ID Drug QTY Days Prescriber RX # Dispenser Refill Daily Dose* Pymt Type OFFICE ASSOCIATE 07/04/2024 07/04/2024 1 Tramadol Hcl 50 Mg Tablet 84.[address] [facility] [id number] [place] ([id number]) 0 30.00 MME Medicaid [place] 07/04/2024 07/04/2024 1 Pregabalin 75 Mg Capsule 84.[address] [facility] [place] (2) 0 1.51 LME Medicaid [place] Review of Systems Constitutional: Negative for chills, fatigue, fever and unexpected weight change. No recent history of trauma, surgery, infection or malignancy. HENT: Negative for congestion, rhinorrhea, sore throat, trouble swallowing and voice change. Respiratory: Negative for cough and shortness of breath. Cardiovascular: Negative for chest pain. Gastrointestinal: Positive for abdominal distention, abdominal pain, constipation, diarrhea and nausea. Negative for blood in stool and vomiting. Positive heartburn and reflux. Genitourinary: Negative for pelvic pain. Musculoskeletal: Positive for arthralgias, back pain and myalgias. Psychiatric/Behavioral: Negative for dysphoric mood and sleep disturbance. The patient is not nervous/anxious. Objective Wt 124.5 kg (274 lb 5.8 oz) LMP 07/31/2024 (Approximate) SpO2 96% BMI 42.97 kg/m 08/01/24 1554 08/01/24 1556 08/01/24 1557 SpO2: 96% Weight: 124.5 kg (274 lb 5.8 oz) Orthostatic BP: 128/24 125/88 126/86 BP Position: Supine Sitting Standing Orthostatic Pulse: 87 83 104 BMI Readings from Last 3 Encounters: 08/01/24 : 42.97 kg/m 06/23/24 : 43.30 kg/m 04/08/24 : 44.47 kg/m Last Wt 08/01/24 : 124.5 kg (274 lb 5.8 oz) 06/23/24 : 125.4 kg (276 lb 7.3 oz) 04/08/24 : 128.8 kg (283 lb 15.2 oz) Last BP 06/23/24 : 118/82 05/19/24 : 108/89 04/26/24 : 116/63 Physical Exam Constitutional: Appearance: Normal appearance. HENT: [...] 11/21/2004 Lab Results Component Value Date GLUC 80 06/23/2024 BUN 13 06/23/2024 CREAT 0.70 06/23/2024 NA 139 06/23/2024 K 4.2 06/23/2024 CHLOR 106 06/23/2024 CO2 21 (L) 06/23/2024 TPROT 6.9 06/23/2024 ALB 4.3 06/23/2024 CA 9.0 06/23/2024 ALKPHOS 72 06/23/2024 TBILI 0.4 06/23/2024 AST 21 06/23/2024 ALT 25 06/23/2024 No results found for: PCRAT , UALBCR PCRAT=Protein Creatinine Ratio; UABCR=Albumin Creat Ratio Lab Results Component Value Date TSH 1.370 02/22/2024 TSH 2.590 06/11/2017 TSH 1.55 11/15/2007 FREET4 1.2 02/22/2024 FREET4 1.16 11/21/2004 TPOAB <3.0 02/22/2024 07/01/24 US liver: Hepatic steatosis. Impression/Recommendations Social History Social History Narrative Not on file Karlene Tom is a 43 year old female - H/o spina bifida and tethered cord with myelomeningocele repair at and reviion on 1994 and 2016, - Chronic pain in low back pain and leg pain chronic, treated with pregabalin and tramadol. Follow up Neurology, last appointment 01/19/24 - Neurogenic bladder had botox injection last week. Prescribed ciprofloxacin and reports had mouth and body itching Follow up Urology - US thryoid, patient with thyroid nodules. Follow up endocrinology to consider FNA. Addressed today: - Obesity Body mass index is 42.97 kg/m . - RUQ due to Dyspepsia improving on psyllium and omeprazole. - Fatty liver noted on RUQ US. Risk factors: obesity, smoking, heavy alcohol use in the past. Alcohol: 1 day/month 1 drink. - Every day smoker, 1 ppd for 30 years, Trying to quit, changed to nicotine vape last cig 07/21/24 Currently using vaping, trying to quit as week Plan: Refer to endocrinology weight program. Refer to hepatology. Return in about 4 weeks (around 08/29/2024) for INPERSON, dizziness. Diagnoses and all orders for this visit: Morbid obesity with BMI of 40.0-44.9, adult (HCC) - ENDOCRINE MEDICAL WEIGHT MANAGEMENT; Future - CONSULT TO HEPATOLOGY; Future Current every day smoker Vapes nicotine containing substance Aidan Forrester MD The documentation from current visit was copied and pasted from last visit with the patient and reviewed and edited as necessary for today's visit. documented in this encounter [facility] 07-08-2024 Note HNO ID: [id number] Author: ?, ?, ? Service: ? Author Type: ? Type: Progress Notes Filed: 07/08/2024 15:55 Note Text: POPULATION HEALTH NAVIGATION OUTREACH Action/FYI scheduled Reason for Outreach Care Gap/HCC or Scheduling Wellness Visits Care Gaps due: N/A Patient Contacted: Spoke to patient/parent/or legal guardian Patient identified by name and : Yes Care Gap/HCC/Scheduling Wellness actions taken: Patient scheduled/pended orders: Specialty Appointment Navigation Signature: Melody Boone July 08, 2024 3:55 PM [facility] 07-08-2024 History of Present illness Narrative POPULATION HEALTH NAVIGATION OUTREACH Action/FYI scheduled Reason for Outreach Care Gap/HCC or Scheduling Wellness Visits Care Gaps due: N/A Patient Contacted: Spoke to patient/parent/or legal guardian Patient identified by name and : Yes Care Gap/HCC/Scheduling Wellness actions taken: Patient scheduled/pended orders: Specialty Appointment Navigation Signature: Melody Boone July 08, 2024 3:55 PM documented in this encounter [facility] 07-08-2024 Note Patient Outreach (NE TNAV) KARLENE TOM ([id number]) 1980 F Date Time Provider Department 07/08/24 NO PCP [facility] During your visit today, we recorded the following information about you: Melody Presley 07/08/2024 3:55 PM Signed POPULATION HEALTH NAVIGATION OUTREACH Action/FYI scheduled Reason for Outreach Care Gap/HCC or Scheduling Wellness Visits Care Gaps due: N/A Patient Contacted: Spoke to patient/parent/or legal guardian Patient identified by name and : Yes Care Gap/HCC/Scheduling Wellness actions taken: Patient scheduled/pended orders: Specialty Appointment Navigation Signature: Melody Boone July 08, 2024 3:55 PM Allergies As of Date: 07/08/2024 Noted Allergy Reaction LATEX 11/15/2007 10 - Anaphylaxis CIPROFLOXACIN 05/18/2023 4 - Hives 9 - Itching MORPHINE 05/26/2017 8 - GI Upset NEOSPORIN ([id number]* 2 2 - Rash SILVER SULFADIAZINE 01/18/2024 14 - Other: See Comments ZINC OXIDE 10/07/2011 2 - Rash Date Reviewed: 07/04/2024 Reviewed by: Alta Oconnor APRN.HIGH PRESSURE OPERATOR - Fully Assessed Prescriptions as of 07/08/2024 - cyclobenzaprine (FLEXERIL) 10 mg tablet Take 1 tablet by mouth as needed for muscle spasm. - traMADol (ULTRAM) 50 mg tablet Take 1 tablet by mouth three times a day for 56 days. - pregabalin (LYRICA) 75 mg capsule Take 1 capsule by mouth three times a day for 56 days. - omeprazole (PRILOSEC) 20 mg capsule Take 1 capsule by mouth once daily. - cefdinir (OMNICEF) 300 mg capsule Take 1 capsule by mouth every 12 hours. - ondansetron orally disintegrating (ZOFRAN ODT) 4 mg disintegrating tablet Take 4 mg by mouth every 8 hours as needed for nausea/vomiting. - Simethicone 125 mg chewable tablet Take 1 tablet by mouth three times a day as needed (bloating). - IBUPROFEN (MOTRIN ORAL) Take by mouth. - Walker (ULTRA-LIGHT ROLLATOR) misc 1 Units as needed. Rollator with seat Problem List As Of Date 07/08/2024 Noted Resolved Unspecified site of sprain and [...] thyroid nodules [E04.2] 04/08/2024 Encounter Status:Closed by MELODY PRESLEY on 07/08/24 [facility] 07-05-2024 Telephone encounter Note Called and spoke with patient. She has accepted a 2-3 weeks PCP follow up appt - V.V. with Dr. Boo on 07/22/2024 @ 8:40am to discuss RUQ pain/results. [facility] 07-05-2024 Miscellaneous Notes Called and spoke with patient. She has accepted a 2-3 weeks PCP follow up appt - V.V. with Dr. Boo on 07/22/2024 @ 8:40am to discuss RUQ pain/results. Pt identified by name and Pt notified of below message and verbalizes understanding. PSS - Please assist with PCP 2-3 weeks Follow up RUQ Pain/Results Notify patient that her ultrasound results did not show any gallstones, there is presence of some fat deposits in the liver which can be improved with weight loss and long-term can lead to complications but are not contributing to her pain as reported at her recent office visit. She should make an appointment with Dr. Boo recheck how things are going on the medications he prescribed, this can be in person or virtual visit. Please schedule in the next 2 to 3 weeks. documented in this encounter [facility] 07-04-2024 Telephone encounter Note Pt identified by name and Pt notified of below message and verbalizes understanding. PSS - Please assist with PCP 2-3 weeks Follow up RUQ Pain/Results [facility] 07-04-2024 Telephone encounter Note Notify patient that her ultrasound results did not show any gallstones, there is presence of some fat deposits in the liver which can be improved with weight loss and long-term can lead to complications but are not contributing to her pain as reported at her recent office visit. She should make an appointment with Dr. Boo recheck how things are going on the medications he prescribed, this can be in person or virtual visit. Please schedule in the next 2 to 3 weeks. T [facility] 07-04-2024 Telephone encounter Note Received request for refill of the following medications: Requested Prescriptions Pending Prescriptions Disp Refills traMADol (ULTRAM) 50 mg tablet 84 tablet 1 Sig: Take 1 tablet by mouth three times a day for 56 days. pregabalin (LYRICA) 75 mg capsule 84 capsule 1 Sig: Take 1 capsule by mouth three times a day for 56 days. omeprazole (PRILOSEC) 20 mg capsule 30 capsule 0 Sig: Take 1 capsule by mouth once daily. Patient requested a 90 day refill. Pharmacy verified and updated accordingly. Patient was last seen by PCP team/provider: 06.23.24. Upcoming appointment scheduled: No Upcoming OV. T [facility] 07-04-2024 Miscellaneous Notes Received request for refill of the following medications: Requested Prescriptions Pending Prescriptions Disp Refills traMADol (ULTRAM) 50 mg tablet 84 tablet 1 Sig: Take 1 tablet by mouth three times a day for 56 days. pregabalin (LYRICA) 75 mg capsule 84 capsule 1 Sig: Take 1 capsule by mouth three times a day for 56 days. omeprazole (PRILOSEC) 20 mg capsule 30 capsule 0 Sig: Take 1 capsule by mouth once daily. Patient requested a 90 day refill. Pharmacy verified and updated accordingly. Patient was last seen by PCP team/provider: 06.23.24. Upcoming appointment scheduled: No Upcoming OV. documented in this encounter [facility] 06-29-2024 History of Present illness Narrative Radiology Service Progress Note PATIENT NAME: Karlene Tom DATE OF SERVICE: June 29, 2024 TIME: 8:17 AM PATIENT IDENTITY VERIFICATION COMPLETED USING TWO [...] GENDER DATA: Female. status: : No status: N/A PATIENT RELEVANT IMPLANT DATA REVIEWED: Not Applicable PATIENT PRESENTS WITH AN IMPLANTABLE OR ATTACHED IT TECHNICIAN: No RADIOLOGY DEPARTMENT: Ultrasound PERIPHERAL IV DATA: Not applicable SIGNED BY: Claudy Karimi RDMS June 29, 2024 8:17 AM documented in this encounter [facility] 06-29-2024 Note HNO ID: [id number] Author: CLAUDY KARIMI RDMS Service: ? Author Type: Technologist Type: Progress Notes Filed: 06/29/2024 08:17 Note Text: Radiology Service Progress Note PATIENT NAME: Karlene Tom DATE OF SERVICE: June 29, 2024 TIME: 8:17 AM PATIENT IDENTITY VERIFICATION COMPLETED USING TWO [...] GENDER DATA: Female. status: : No status: N/A PATIENT RELEVANT IMPLANT DATA REVIEWED: Not Applicable PATIENT PRESENTS WITH AN IMPLANTABLE OR ATTACHED IT TECHNICIAN: No RADIOLOGY DEPARTMENT: Ultrasound PERIPHERAL IV DATA: Not applicable SIGNED BY: Claudy Karimi RDMS June 29, 2024 8:17 AM [facility] 06-23-2024 History of Present illness Narrative Karlene Tom is a 43 year old female Chief complaint: Refill Request, Back Pain (Mid back), Nausea, Abdominal Pain, and Diarrhea (X1 week. ) Subjective HPI: Update since last visit: Approved for social security. C/o RUQ pain radiated to back for past 2 week, daily, worsen with meals, last 1-2 hours, improves by avoiding food, treated with ibuprofen with improvement. Also with nausea. Also bloating, constipation earlier in the month treated with laxative, and diarrhea for past week. No blood in stool. Evaluated in [facility], 4 days ago, reports had a CAT scan of abdomen? Negative for kidney stones per patient. Treated with an antibiotic, toradol, zofran. No records available. Thyroid nodules with tenderness followed by endocrinology. History: H/o spina bifida and tethered cord with myelomeningocele repair at and reviion on 1994 and 2016, complicated with neurogenic bowel and bladder. Follow up Neurology, last appointment 01/19/24 H/o neurogenic bladder had botox injection last week. Prescribed ciprofloxacin and reports had mouth and body itching Follow up Urology H/o chronic pain in low back pain and leg pain chronic, treated with pregabalin and tramadol, ketamine infusions. Follow up neurology and neurosurgery. Review of Systems Constitutional: Negative for chills, fatigue, fever and unexpected weight change. No recent history of trauma, surgery, infection or malignancy. HENT: Negative for congestion, rhinorrhea, sore throat, trouble swallowing and voice change. Respiratory: Negative for cough and shortness of breath. Cardiovascular: Negative for chest pain. Gastrointestinal: Positive for abdominal distention, abdominal pain, constipation, diarrhea and nausea. Negative for blood in stool and vomiting. Positive heartburn and reflux. Genitourinary: Negative for pelvic pain. Musculoskeletal: Positive for arthralgias, back pain and myalgias. Psychiatric/Behavioral: Negative for dysphoric mood and sleep disturbance. The patient is not nervous/anxious. Objective BP 118/82 Pulse 68 Temp 36.7 C (98.1 F) Wt 125.4 kg (276 lb 7.3 oz) LMP 06/09/2024 (Approximate) SpO2 99% BMI 43.30 kg/m BMI Readings from Last 3 Encounters: 06/23/24 : 43.30 kg/m 04/08/24 : 44.47 kg/m 03/31/24 : 44.39 kg/m Last Wt 06/23/24 : 125.4 kg (276 lb 7.3 oz) 04/08/24 : 128.8 kg (283 lb 15.2 oz) 03/31/24 : 128.5 kg (283 lb 6.4 oz) Last BP 06/23/24 : 118/82 05/19/24 : 108/89 04/26/24 : 116/63 Physical Exam Constitutional: Appearance: Normal appearance. HENT: [...] Ratio Lab Results Component Value Date TSH 1.370 02/22/2024 TSH 2.590 06/11/2017 TSH 1.55 11/15/2007 FREET4 1.2 02/22/2024 FREET4 1.16 11/21/2004 TPOAB <3.0 02/22/2024 Impression/Recommendations Social History Social History Narrative Not on file Karlene Tom is a 43 year old female - Obesity Body mass index is 43.3 kg/m . - H/o spina bifida and tethered cord with myelomeningocele repair at and reviion on 1994 and 2016, - Chronic pain in low back pain and leg pain chronic, treated with pregabalin and tramadol. Follow up Neurology, last appointment 01/19/24 - Neurogenic bladder had botox injection last week. Prescribed ciprofloxacin and reports had mouth and body itching Follow up Urology Addressed today: - US thryoid, patient with thyroid nodules. Follow up endocrinology to consider FNA. - RUQ pain radiated to back for past 2 week, daily. Also with nausea. Also bloating, constipation earlier in the month treated with laxative, and diarrhea for past week. Evaluated in [facility], 4 days ago, reports had a CAT scan of abdomen? Negative for kidney stones per patient. Treated with an antibiotic, toradol, zofran. No records available. R/o gallstones, pancreatitis, liver disease. DDX gastritis. Plan: Order US abdomen Order labs as below. Start omeprazole and simethicone. Diet cousneling. Counseling about warning signs. Diagnoses and all orders for this visit: RUQ pain - US ABD RIGHT UPPER QUADRANT; Future - COMPREHENSIVE METABOLIC PANEL; Future - COMPLETE BLOOD COUNT; Future - LIPASE; Future - omeprazole (PRILOSEC) 20 mg capsule; Take 1 capsule by mouth once daily. - Simethicone 125 mg chewable tablet; Take 1 tablet by mouth three times a day as needed (bloating). Screening for depression - DEPRESSION SCREENING Encounter for immunization Encounter for screening examination for other mental health and behavioral disorders - ANXIETY SCREENING Return if symptoms worsen or fail to improve. Aidan Forrester MD The documentation from current visit was copied and pasted from last visit with the patient and reviewed and edited as necessary for today's visit. documented in this encounter [facility] 06-23-2024 Note HNO ID: [id number] Author: AIDAN MONTENEGRO MD Service: ? Author Type: Physician Type: Progress Notes Filed: 06/23/2024 13:40 Note Text: Karlene Tom is a 43 year old female Chief complaint: Refill Request, Back Pain (Mid back), Nausea, Abdominal Pain, and Diarrhea (X1 week. ) Subjective HPI: Update since last visit: Approved for social security. C/o RUQ pain radiated to back for past 2 week, daily, worsen with meals, last 1-2 hours, improves by avoiding food, treated with ibuprofen with improvement. Also with nausea. Also bloating, constipation earlier in the month treated with laxative, and diarrhea for past week. No blood in stool. Evaluated in [facility], 4 days ago, reports had a CAT scan of abdomen? Negative for kidney stones per patient. Treated with an antibiotic, toradol, zofran. No records available. Thyroid nodules with tenderness followed by endocrinology. History: H/o spina bifida and tethered cord with myelomeningocele repair at and reviion on 1994 and 2016, complicated with neurogenic bowel and bladder. Follow up Neurology, last appointment 01/19/24 H/o neurogenic bladder had botox injection last week. Prescribed ciprofloxacin and reports had mouth and body itching Follow up Urology H/o chronic pain in low back pain and leg pain chronic, treated with pregabalin and tramadol, ketamine infusions. Follow up neurology and neurosurgery. Review of Systems Constitutional: Negative for chills, fatigue, fever and unexpected weight change. No recent history of trauma, surgery, infection or malignancy. HENT: Negative for congestion, rhinorrhea, sore throat, trouble swallowing and voice change. Respiratory: Negative for cough and shortness of breath. Cardiovascular: Negative for chest pain. Gastrointestinal: Positive for abdominal distention, abdominal pain, constipation, diarrhea and nausea. Negative for blood in stool and vomiting. Positive heartburn and reflux. Genitourinary: Negative for pelvic pain. Musculoskeletal: Positive for arthralgias, back pain and myalgias. Psychiatric/Behavioral: Negative for dysphoric mood and sleep disturbance. The patient is not nervous/anxious. Objective BP 118/82 Pulse 68 Temp 36.7 ?C (98.1 ?F) Wt 125.4 kg (276 lb 7.3 oz) LMP 06/09/2024 (Approximate) SpO2 99% BMI 43.30 kg/m? BMI Readings from Last 3 Encounters: 06/23/24 : 43.30 kg/m? 04/08/24 : 44.47 kg/m? 03/31/24 : 44.39 kg/m? Last Wt 06/23/24 : 125.4 kg (276 lb 7.3 oz) 04/08/24 : 128.8 kg (283 lb 15.2 oz) 03/31/24 : 128.5 kg (283 lb 6.4 oz) Last BP 06/23/24 : 118/82 05/19/24 : 108/89 04/26/24 : 116/63 Physical Exam Constitutional: Appearance: Normal appearance. HENT: [...] Ratio Lab Results Component Value Date TSH 1.370 02/22/2024 TSH 2.590 06/11/2017 TSH 1.55 11/15/2007 FREET4 1.2 02/22/2024 FREET4 1.16 11/21/2004 TPOAB <3.0 02/22/2024 Impression/Recommendations Social History Social History Narrative Not on file Karlene Tom is a 43 year old female - Obesity Body mass index is 43.3 kg/m?. - H/o spina bifida and tethered cord with myelomeningocele repair at and reviion on 1994 and 2016, - Chronic pain in low back pain and leg pain chronic, treated with pregabalin and tramadol. Follow up Neurology, last appointment 01/19/24 - Neurogenic bladder had botox injection last week. Prescribed ciprofloxacin and reports had mouth and body itching Follow up Urology Addressed today: - US thryoid, patient with thyroid nodules. Follow up endocrinolog (more content not included)... [facility] 05-26-2024 Note HNO ID: [id number] Author: ELDA DANIELSON MD Service: ? Author Type: Physician Type: Progress Notes Filed: 05/26/2024 15:22 Note Text: ASSESSMENT/PLAN: 1. Monocular exotropia with other noncomitancies, left eye - ICD9: 378.14, ICD10: H50.142 (primary diagnosis) - s/p surgery around 30 years ago in [facility] with Dr. Vel Gómez (both eyes). [...] Danielson MD May 26, 2024 3:17 PM [facility] 05-26-2024 History of Present illness Narrative ASSESSMENT/PLAN: 1. Monocular exotropia with other noncomitancies, left eye - ICD9: 378.14, ICD10: H50.142 (primary diagnosis) - s/p surgery around 30 years ago in [facility] with Dr. Vel Gómez (both eyes). [...] 2024 3:17 PM documented in this encounter [facility] 05-19-2024 History of Present illness Narrative Images from the original note were not included. [facility] May 19, 2024 SUBJECTIVE: Karlene Tom presents [...] pain and left posterior thigh and anterior vo pain. States that she has noticed her [...] which included preparing to see the patient, [id number] patient care, completing clinical documentation, obtaining and/or reviewing separately obtained history, performing a medically appropriate examination, counseling and educating the patient/family/caregiver, and ordering medications, tests, or procedures. Regina Agrawal PA-C Important Patient Information: 1. To schedule Pain Recovery appointments or post-injection office visits, please call: [phone] 2. The nursing staff and medical assistants are a part of your pain recovery team and will be handling your phone calls and inquiries. 3. Your study results and treatment plan will be discussed during a follow-up appointment. If you do not have a follow-up appointment and wish to discuss any issues directly with me, please call: [phone] to set-up an appointment. 4. MyChart is best used for refill requests or yes or no questions. Anything more complicated will likely require a follow-up appointment that you can schedule by [phone]. 5. It is the practice of the [...] is an opening. documented in this encounter [facility] 05-19-2024 Note HNO ID: [id number] Author: REGINA AGRAWAL PA-C Service: ? Author Type: Physician Marine Equipment Sales Engineer Type: Progress Notes Filed: 05/19/2024 14:03 Note Text: [facility] Neurological Liberal May 19, 2024 SUBJECTIVE: Karlene Tom presents [...] pain and left posterior thigh and anterior vo pain. States that she has noticed her [...] which included preparing to see the patient, [id number] patient care, completing clinical documentation, obtaining and/or reviewing separately obtained history, performing a medically appropriate examination, counseling and educating the patient/family/caregiver, and ordering medications, tests, or procedures. Regina Agrawal PA-C Important Patient Information: 1. To schedule Pain Recovery appointments or post-injection office visits, please call: [phone] 2. The nursing staff and medical assistants are a part of your pain recovery team and will be handling your phone calls and inquiries. 3. Your study results and treatment plan will be discussed during a follow-up appointment. If you do not have a follow-up appointment and wish to discuss any issues directly with me, please call: [phone] to set-up an appointment. 4. [email or web address] is best used for refill requests or yes or no questions. Anything more complicated will likely require a follow-up appointment that you can schedule by [phone]. 5. It is the practice of the Department to not fill disability or any other insurance-related forms/documentation. All of the office notes, study results, an (more content not included)... [facility] 05-04-2024 Note HNO ID: [id number] Author: ELDA DANIELSON MD Service: ? Author Type: Physician Type: Progress Notes Filed: 05/04/2024 11:47 Note Text: ASSESSMENT/PLAN: 1. Monocular exotropia with other noncomitancies, left eye - ICD9: 378.14, ICD10: H50.142 (primary diagnosis) - s/p surgery around 30 years ago in [facility] with Dr. Vel Gómez (both eyes). [...] Danielson MD May 04, 2024 11:46 AM [facility] 05-04-2024 History of Present illness Narrative ASSESSMENT/PLAN: 1. Monocular exotropia with other noncomitancies, left eye - ICD9: 378.14, ICD10: H50.142 (primary diagnosis) - s/p surgery around 30 years ago in [facility] with Dr. Vel Gómez (both eyes). [...] 2024 11:46 AM documented in this encounter [facility] 05-02-2024 Telephone encounter Note Request for controlled medication. PMDP checked. No signs of concerns. Refill sent. Lab Results Component Value Date UOPI Negative 06/11/2017 UOXYC Positive (A) 06/11/2017 UBENZ Positive (A) 06/11/2017 UCOC2 Negative 06/11/2017 UAMPH Negative 06/11/2017 UETOH <11 06/11/2017 ] [facility] 05-02-2024 Miscellaneous Notes Request for controlled medication. [...] Stacy Westbrook MA documented in this encounter [facility] 05-02-2024 Telephone encounter Note Patient phones requesting [...] Please review and advise. Stacy Westbrook MA [facility] 04-27-2024 Telephone encounter Note AM spoke w/patient @ 9:31 & she stated that her pharmacy hasn't received her RX's for the Tobramycin & Erythromycin. Please send to [facility] in [facility] PT ph [phone] [facility] 04-27-2024 Miscellaneous Notes AM spoke w/patient @ 9:31 & she stated that her pharmacy hasn't received her RX's for the Tobramycin & Erythromycin. Please send to [facility] in [place] thanks PT ph [phone] documented in this encounter [facility] 04-26-2024 Note HNO ID: [id number] Author: PARAMJIT FULTON SRNA Service: ? Author Type: Student Type: Anesthesia Procedure Notes Filed: 04/26/2024 15:17 Note Text: ANESTHESIOLOGY PROCEDURE NOTE PIV General Information Procedure Start Time/Medication Administration: 04/26/2024 3:04 PM Procedure End Time: 04/26/2024 3:04 PM Patient Location: OR Staffing Anesthesiologist: Junior Moon MD Performed by: anesthesiologist Preparation Sterility [...] April 26, 2024 TIME: 3:17 PM CSN: [id number] [facility] 04-26-2024 Note HNO ID: [id number] Author: PARAMJIT FULTON SRNA Service: ? Author Type: Student Type: Anesthesia Procedure Notes Filed: 04/26/2024 15:17 Note Text: ANESTHESIOLOGY PROCEDURE NOTE Airway General Information Procedure Start Time/Medication Administration: 04/26/2024 3:11 PM Procedure End Time: 04/26/2024 3:11 PM Patient location during procedure: OR Staffing DIESEL MECHANIC CONSTRUCTION: Frannie Adler APRN.DIESEL MECHANIC CONSTRUCTION SRNA: Paramjit Fulton SRNA Performed by: KRISTAN Indications and Patient Condition Indications for airway management: anesthesia Preoxygenated: yes anesthesia circuit Patient position: ramp Method: asleep Difficult Mask: No Airway Accessory: oral airway Final Airway Details Final airway type: endotracheal airway Final Endotracheal Airway: ETT Cuffed: yes Successful intubation technique: video laryngoscopy Devices used: Crocker Endotracheal tube insertion site: oral Blade: Low Blade size: #4 ETT size (mm): 7.0 Measured from: lips Measurement (cm): 22 Placement verified by: capnometry Cormack-Lehane Classification: grade I - full view of glottis Number of attempts at approach: 1 Airway not difficult SIGNATURE: KRISTAN Meng PATIENT NAME: Karlene Tom DATE: April 26, 2024 TIME: 3:16 PM CSN: [id number] [facility] 04-25-2024 Telephone encounter Note Appeal letter created - after signature will be faxed to [phone]. Wicho Oviedo RN [facility] 04-25-2024 Miscellaneous Notes Appeal letter created - after signature will be faxed to [phone]. Wicho Oviedo RN documented in this encounter [facility] 04-15-2024 Note HNO ID: [id number] Author: MANNY MENDOZA LSW Service: ? Author Type: Plastic Parts Fabricator Type: Progress Notes Filed: 04/15/2024 11:08 Note [...] same day of complete survey. MARIANA Rapp [facility] 04-15-2024 History of Present illness Narrative SOCIAL [...] survey. MARIANA Rapp documented in this encounter [facility] 04-14-2024 Note HNO ID: [id number] Author: HAILY MAYER, Therapist Service: ? Author Type: Therapist Type: Progress Notes Filed: 04/14/2024 16:19 Note Text: THE [facility] Psychological Evaluation April 14, 2024 Karlene Tom [facility]#: [id number] I have communicated my name and active licensure. The patient's identity and physical location were verified at the time of this visit. Either the patient or their legal product support representative has been informed of the risks and benefits of -- and alternatives to -- treatment through virtual visit and consents to proceed with the session remotely. The patient e-signed the Informed Consent for Psychological Evaluation AND Care Form, and the [facility] health care insurance benefits, fees for service, emergency procedures, and the limits of confidentiality that may pertain with any given case were discussed with the patient. The patient was given a copy of the consent form on [email or web address]. The patient consented to a virtual visit and their location was confirmed. Patient location: [place], [place] CPT Code: [id number] Virtual Psych Diagnotic Eval Appointment Start: 2:00 PM This 43 year old single disabled (but not officially approved yet; she's been unable to work for 12 years) female lives with her daughter and significant other in [place], [place]. 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 She was referred by Felicity Agrawal PA-C for psychological evaluation in the context of chronic pain. This consultation was shared with the referral source via the [facility] electronic medical record. She believes the reason [...] as tearing, stinging,throbbing, sharp, stabbing. Pain severity 03/30. Aggravating factors - movement. Alleviating factors - meds, massage, repositioning. Denies any new bowel or bladder dysfunctions - but notes t (more content not included)... [facility] 04-08-2024 History and physical note Images from the original note were not included. [facility] HISTORY [...] 1994 and 2016. Follows with neurosurgery, Dr. uHber, last seen by Isaura Agrawal PA-C on 03/03/24. Also sees neurology, Kaylene Daley PA-C, last visit 01/19/24. Has topiramate [...] Dave, last visit 03/31/24 and ENT, Dr. Luciana Buckley, last visit 04/05/24. In the process [...] Taylor, et al. 2017 Guidelines of the [place] Thy[employer] Association for the Diagnosis and Management [...] and flexeril as needed. Spine following, Norma Lyman, HIGH PRESSURE OPERATOR. hronic and stable. Jones Activity Status Index: [...] requiring medication, no history of angina, CHF, [place], cardiac surgery or stents. Denies rest pain, [...] Morbid Obesity With Bmi of 40.0-44.9, Adult ([facility]) History of Urinary Self-Catheterization Monocular Exotropia With Other Noncomitancies, Left Eye Hypotropia of Left Eye Vitamin D Deficiency Urge Incontinence Neurogenic Bladder Chronic Lower Back Pain Multiple Thyroid Nodules Covid Immunization Dates Postponed - Covid-19 Vaccine ( season) Postponed until 01/05/2025 01/06/2024 Postponed until 01/05/2025 by Tracie Williamson APRN.HIGH PRESSURE OPERATOR (Declined at this time) PAST MEDICAL HISTORY [...] cord (1979,1994, 2016) PAST SURGICAL HISTORY OF 1985 bladder surgery FAMILY HISTORY Problem Relation Age [...] instructions and voices comprehension and compliance. SIGNATURE: Salud Francis PA-C PATIENT NAME: Karlene Tom DATE: 04/08/2024 TIME: 11:54 AM [facility] 04-08-2024 History and physical note Images from the original note were not included. [facility] HISTORY [...] Agrawal PA-C on 03/03/24. Also sees neurology, Kaylene Daley PA-C, last visit 01/19/24. Has topiramate [...] Dave, last visit 03/31/24 and ENT, Dr. Luciana Buckley, last visit 04/05/24. In the process [...] Taylor, et al. 2017 Guidelines of the [place] Thy[employer] Association for the Diagnosis and Management [...] requiring medication, no history of angina, CHF, [place], cardiac surgery or stents. Denies rest pain, [...] Covid Immunization Dates Postponed - Covid-19 Vaccine () Postponed until 01/05/2025 01/06/2024 Postponed until 01/05/2025 by Tracie Williamson APRN.HIGH PRESSURE OPERATOR (Declined at this time) PAST MEDICAL HISTORY [...] instructions and voices comprehension and compliance. SIGNATURE: Salud Francis PA-C PATIENT NAME: Karlene Tom DATE: 04/08/2024 TIME: 11:54 AM documented in this encounter [facility] 04-08-2024 Telephone encounter Note Left detailed message on identified voice mail. Gave results and phone number to schedule with endocrine surgery as noted by provider. Maya Lewis MA [facility] 04-08-2024 Miscellaneous Notes Left detailed message on [...] with biopsy results documented in this encounter [facility] 04-07-2024 Telephone encounter Note Please call and [...] am here to answer/clarify. Thank you, SRB [facility] 04-07-2024 Instructions Salud Francis PA-C - 04/07/2024 10:05 AM EDT Images from the original note were not included. [facility] PATIENT PREOPERATIVE INSTRUCTIONS Elda Danielson MD has scheduled you for your procedure at this surgery center: [facility] Scheduling Office: [phone] --[address] [place] [id number]. Arrival Time for Surgery: - To obtain your arrival time for surgery, call your physician's office the day before your surgery. - If your surgery is scheduled for Thursday, call the Thursday before. Your surgeon s operations scheduler will tell you what time to call the office. - If you have not reached the departmental operations scheduler by 5 P.M., call [phone] after 5 P.M. the day before your [...] Procedures: - YOU MUST HAVE A RESPONSIBLE GARAGE HELPER TAKE YOU HOME. A ASTROBIOLOGIST OR GLASS FURNACE TENDER CANNOT BE MADE A RESPONSIBLE GARAGE HELPER. - We recommend that a responsible person stays with you overnight to take care of you. - You cannot stay in a hotel alone after outpatient surgery. You will not be permitted to have your surgery, if you do not have someone to take care of you. If you already have an Advance Directive, please fax a copy to [phone] or email to for it to be added to your chart. If you do not have an Advance Directive, you can find the appropriate form and more information at [email or web address]. We recommend that you complete the Advance Directive form found on the website and bring it with you the day of your surgery. It can be witnessed and scanned into your chart that day. Salud Francis PA-C documented in this encounter [facility] 04-05-2024 Note HNO ID: [id number] Author: LUCIANA BUCKLEY MD Service: ? Author Type: Physician Type: Progress Notes Filed: 04/05/2024 16:35 Note Text: OTOLARYNGOLOGY-HEAD AND NECK SURGERY CC: Karlene Tom is a 43 year old female who is seen at the request of Kaylene Daley for evaluation of thryoid nodle . My findings and recommendations will be communicated to the referring provider via the shared electronic medical record. Assessment: ASSESSMENT/PLAN: 1. Multiple thyroid nodules - ICD9: 241.1, ICD10: E04.2 At this point benign unclear Will get ct scan neck to sort out Luciana Buckley MD 2. Airway compromise ct scan [...] RT Canal: paten (more content not included)... [facility] 04-05-2024 History of Present illness Narrative OTOLARYNGOLOGY-HEAD AND NECK SURGERY CC: Karlene Tom is a 43 year old female who is seen at the request of Kaylene Daley for evaluation of thryoid nodle . My findings and recommendations will be communicated to the referring provider via the shared electronic medical record. Assessment: ASSESSMENT/PLAN: 1. Multiple thyroid nodules - ICD9: 241.1, ICD10: E04.2 At this point benign unclear Will get ct scan neck to sort out Luciana Buckley MD 2. Airway compromise ct scan [...] The procedure was performed by Dr. Buckley. Luciana Buckley MD NECK: The neck appears symmetric without scars. On palpation, there are no masses or lymphadenopathy. The thyroid is not palpable and was free of masses. No salivary gland masses or hypertrophy is noted. REVIEW OF RADIOLOGICAL FILMS AND RECORDS: Wnl Luciana Buckley MD documented in this encounter [facility] 04-05-2024 Telephone encounter Note Patient is asking for a return call with biopsy results [facility] 03-31-2024 Instructions Jailene Dave MD - 03/31/2024 [...] for an update. documented in this encounter [facility] 03-31-2024 History of Present illness Narrative Fine Needle Aspiration(FNA) Biopsy of thyroid nodule Karlene Tom was identified by name and date, acknowledges here to have a Fine Needle Aspiration(FNA) of bilateral thyroid nodules performed. Risks, benefits and alternatives D/W patient by ga Time/Date: March 31, 2024 2:59 PM Referred by: Jailene Dave MD Primary Wind Turbine Erector: Jailene Dave MD Blood thinners: no Discussed [...] Jailene Dave MD documented in this encounter [facility] 03-29-2024 Miscellaneous Notes Request for controlled medication [...] 2024 8:07 AM documented in this encounter [facility] 03-29-2024 Telephone encounter Note Request for controlled medication pregaballin and tramadol. PMDP checked. No signs of concerns. Refill sent. [facility] 03-29-2024 Telephone encounter Note Received request for [...] Landrum MA March 29, 2024 8:07 AM [facility] 03-25-2024 Instructions Jailene Dave MD - 03/25/2024 8:51 AM EDT Please schedule for FNA of thyroid nodules documented in this encounter [facility] 03-25-2024 History of Present illness Narrative [facility] Initial Clinic Visit Note NAME: Karlene Tom PCP: Aidan Forrester MD Requesting Provider: Aidan Forrester [id number] [id number] My final recommendations will be communicated back [...] points Echogenicity: Hypoechoic, 2 points (heterogeneous) Shape: Qsktl-mecc-tuwk, 0 points Margin: Smooth, 0 points Echogenic [...] points Echogenicity: Hypoechoic, 2 points (heterogeneous) Shape: Vdvde-hnkn-vykn, 0 points Margin: Smooth, 0 points Echogenic [...] points Echogenicity: Hypoechoic, 2 points (heterogeneous) Shape: Wuigh-nzns-anlp, 0 points Margin: Smooth, 0 points Echogenic [...] points Echogenicity: Hypoechoic, 2 points (heterogeneous) Shape: Hctsw-zjoe-ucoa, 0 points Margin: Smooth, 0 points Echogenic [...] based on cytopathology results Jailene Dave MD [facility] Medical Decision Making: Problems: Moderate: New problem with uncertain prognosis Data: Unique test result(s) reviewed: 3+ Independent interpretation of test from other physician/QHCP Risk: Moderate: Decision on minor surgery w/ risk factors Medical Decision Making Level: 4 - Moderate documented in this encounter [facility] 03-18-2024 History of Present illness Narrative Patient [...] to self-ambulate to the lobby and to limousine driver for transportation. documented in this encounter [facility] 03-17-2024 History of Present illness Narrative Patient [...] complete. Tolerated infusion well. Pt discharged to limousine driver in the lobby. documented in this encounter [facility] 03-16-2024 History of Present illness Narrative Patient [...] to self-ambulate to the lobby and to limousine driver for transportation. documented in this encounter [facility] 03-15-2024 History of Present illness Narrative Patient [...] to self-ambulate to the lobby and to limousine driver for transportation. documented in this encounter [facility] 03-14-2024 History of Present illness Narrative Patient here for day 1 of Ketamine infusion. Patient educated on medications to be administered. Confirmed NPO > 6 hours and has transportation home - waiting in [facility]. Patient verbalized understanding and agreed [...] the loss of control . . On elevator erector helper during infusion pt was talkative and laughing with staff. Towards end of infusion pt stated she was feeling anxious - this RN offered emotional support and therapeutic communication, as well as education reinforcing potential side effects of ketamine discussed prior to infusion initiation. Discussed dose of PRN Versed for anxiety with remainder of infusions for the week - pt agreeable. Pt discharged to limousine driver in the [address] of [facility] in stable condition via wheelchair. Reinforced with pt need for limousine driver to be present in [facility] lobby. documented in this encounter [facility] 03-11-2024 History of Present illness Narrative Ketamine orders placed. documented in this encounter [facility] 03-04-2024 History of Present illness Narrative This note was created using Break Mediariter. 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 This virtual visit was conducted via Diarize which is a HIPAA compliant video platform. I received consent from the patient to perform the visit using this platform. The visit required patient-provider interaction for the medical decision making as documented herein. I have communicated my name and active licensure. The patient's identity and physical location were verified at the time of this visit. Either the patient or their legal product support representative has been informed of the risks and benefits of -- and alternatives to -- treatment through a remote evaluation and consents to proceed with the evaluation remotely. documented in this encounter [facility] 03-03-2024 History of Present illness Narrative [facility] Neurological Liberal March 03, 2024 Karlene Tom is a 43 year old single female, applying for disability, who lives with significant other, a daughter, and a son in [place], [place]. She was referred by Norma Lyman [id number] [id number]. Consultation requested by Shubham Lyman for an opinion regarding . Karlene Tom, and my final recommendations will [...] tearing, stinging, throbbing, sharp, stabbing. Pain severity 7/10 Aggravating factors - movement Alleviating factors - [...] denies CHF: denies Uncontrolled HTN: denies Recent [place]: denies Arrythmias: denies Afib: denies Hyperthyroid: denies [...] 5 cig/day and does wish to quit. @MyCityWay@ describes current alcohol consumption as 3x year [...] which included preparing to see the patient, vnoy-aj-lujs patient care, completing clinical documentation, obtaining and/or reviewing separately obtained history, performing a medically appropriate examination, counseling and educating the patient/family/caregiver, and ordering medications, tests, or procedures. Important Patient Information: 1. To schedule Pain Recovery appointments or post-injection office visits, please call: [phone] 2. The nursing staff and medical assistants are an integral part of your pain recovery team and will be handling your phone calls and inquiries. 3. Your study results and treatment plan will be discussed during a follow-up appointment. If you do not have a follow-up appointment and wish to discuss any issues directly with me, please call: [phone] to set-up an appointment. 4. MyChart is best used for refill requests or yes or no questions. Anything more complicated will likely require a follow-up appointment that you can schedule by [phone]. 5. It is the practice of the [...] is an opening. documented in this encounter [facility] 02-22-2024 History of Present illness Narrative Karlene [...] and tramadol. Follow up neurology and neurosurgery. [facility] Medical Records reviewed. Medical records reviewed. Shon Angel EMERGENCY VETERINARIAN, prescribing tramadol for spina bifida pain until [...] for today's visit. documented in this encounter [facility] 02-16-2024 Telephone encounter Note Called patient, verified . Gave message below. Patient stated that she is not having stomach issues. She has nausea, not sleeping, hard time swallowing and raspy voice from the thyroid nodules. Patient does have an appointment with you on 02/22/2024. Routed to PCP. [facility] 02-16-2024 Miscellaneous Notes Called patient, verified . [...] that is recommended to have referral to commodity specialist to complete an evaluation and decide management. Referral placed. Instruct patient how to schedule appointment. Thanks. ----- Message from Alexis Felix PA-C sent at 02/11/2024 1:28 PM EDT ----- Regarding: FNA Dr. Forrester, My name is Alexis Felix PA-C and I'm an Advanced Practice Provider in the [facility] clinic here at the [facility]. In my quality review, I see that this patient had thyroid nodules. FNA was recommended. Is that something you could help arrange or would you like us in our [facility] department reach out to her for possible outreach? Alexis Felix PA-C February 11, 2024 1:28 PM documented in this encounter [facility] 02-15-2024 Telephone encounter Note I sent her [...] a letter to her pcp. Consult signed [facility] 02-15-2024 Miscellaneous Notes I sent her a [...] results suggest a biopsy. She states that Kaylene KLINE ordered the US and so patient [...] as SOB/ trouble breathing. Message sent to Kaylene KLINE and Dr. Huber for review. General Call Caller : Pt Contact Reason for Call : Pt had her US THYROID/PARATHYROID test done today. She would like to discuss her next steps as she was told she needs to have her thyroid biopsied. Patient requesting return call ? Yes documented in this encounter [facility] 02-13-2024 Telephone encounter Note [facility] Medical Records reviewed. Medical records reviewed. Shon Angel EMERGENCY VETERINARIAN, prescribing tramadol for spina bifida pain until evaluation with pain management. 04/07/23 UDS negative. 12/22/23 UDS positive THC, rest negative. 04/28/23 EMG of LE: normal. No evidence of EMERGENCY VETERINARIAN or radiculopathy. 05/2023 requested to have student loans deferred due to disability. 06/10/22 Colonoscopy biopsy: with small hyperplastic polyp, 07/31/21 Pap NIL, HPV neg. Problem list and medication list updated as appropriate. [facility] 02-13-2024 Miscellaneous Notes [facility] Medical Records reviewed. Medical records reviewed. Shon Angel EMERGENCY VETERINARIAN, prescribing tramadol for spina bifida pain until evaluation with pain management. 04/07/23 UDS negative. 12/22/23 UDS positive THC, rest negative. 04/28/23 EMG of LE: normal. No evidence of EMERGENCY VETERINARIAN or radiculopathy. 05/2023 requested to have student loans deferred due to disability. 06/10/22 Colonoscopy biopsy: with small hyperplastic polyp, 07/31/21 Pap NIL, HPV neg. Problem list and medication list updated as appropriate. documented in this encounter [facility] 02-12-2024 Telephone encounter Note Please instruct patient to use an over the counter medication for stomach problems like Peptobismol or antacid like Tums or Mylanta or similar. If no improvement patient should make an office visit to complete an evaluation and decide managmeent. [facility] 02-12-2024 Telephone encounter Note Called and reviewed message with patient ,she stated that she has been very nauseated and coughing due to her thyroid , she is asking if Dr Boo would call in something for the nausea. [facility] 02-12-2024 Telephone encounter Note Called and reviewed patient results, please assist patient in scheduling an OV with Endo Thank you. [facility] 02-12-2024 Telephone encounter Note Received notice abtopu actionable finding in US thryoid, patient with thyroid nodules. Please inform patient that is recommended to have referral to commodity specialist to complete an evaluation and decide management. Referral placed. Instruct patient how to schedule appointment. Thanks. [facility] 02-12-2024 Telephone encounter Note ----- Message from lAexis Felix PA-C sent at 02/11/2024 1:28 PM EDT ----- Regarding: FNA Dr. Forrester, My name is Alexis Felix PA-C and I'm an Advanced Practice Provider in the Actionable Findings clinic here at the [facility]. In my quality review, I see that this patient had thyroid nodules. FNA was recommended. Is that something you could help arrange or would you like us in our Actionable Findings department reach out to her for possible outreach? Alexis Felix PA-C February 11, 2024 1:28 PM [facility] 02-12-2024 Telephone encounter Note Called patient via phone. Per pt, her ultra sound results suggest a biopsy. She states that Kaylene KLINE ordered the US and so patient [...] as SOB/ trouble breathing. Message sent to Kaylene KLNIE and Dr. Huber for review. [facility] 02-11-2024 Telephone encounter Note General Call Caller : Pt Contact Reason for Call : Pt had her US THYROID/PARATHYROID test done today. She would like to discuss her next steps as she was told she needs to have her thyroid biopsied. Patient requesting return call ? Yes [facility] 02-08-2024 History of Present illness Narrative Radiology [...] PATIENT PRESENTS WITH AN IMPLANTABLE OR ATTACHED IT TECHNICIAN: No RADIOLOGY DEPARTMENT: Ultrasound PERIPHERAL IV DATA: Not applicable Thyroid US done SIGNED BY: Norma Pearson RDMS, RVT February 08, 2024 12:23 PM documented in this encounter [facility] 02-08-2024 Note HNO ID: [id number] Author: NORMA PEARSON RDMS, RVT Service: ? Author Type: Can Operator Type: Progress Notes Filed: 02/08/2024 12:24 Note [...] PATIENT PRESENTS WITH AN IMPLANTABLE OR ATTACHED IT TECHNICIAN: No RADIOLOGY DEPARTMENT: Ultrasound PERIPHERAL IV DATA: Not applicable Thyroid US done SIGNED BY: Norma Pearson RDMS, RVT February 08, 2024 12:23 PM [facility] 02-08-2024 History of Present illness Narrative Subjective [...] 02/08/24 10:16 AM documented in this encounter [facility] Work Phone: 01-25-2024 Note Addended by: AIDAN BOBBY on: 01/25/2024 05:41 PM Modules accepted: Orders [facility] 01-25-2024 Miscellaneous Notes Addended by: AIDAN MONTENEGRO on: 01/25/2024 05:41 PM Modules accepted: Orders documented in this encounter [facility] 01-25-2024 Instructions Aidan Montenegro MD - 01/25/2024 2:44 PM EDT Request records of office visit with Silvina Cruz [address] [place] [address] - [address]on [address] [facility] [address] documented in this encounter [facility] 01-25-2024 History of Present illness Narrative Karlene [...] # Dispenser Refill Daily Dose* Pymt Type OFFICE ASSOCIATE 12/22/2023 12/22/2023 1 Tramadol Hcl 50 Mg Tablet 90.00 30 Fa Mcn [id number] Rit (7038) 0 30.00 MME Medicaid [place] 12/22/2023 12/22/2023 1 Pregabalin 75 Mg Capsule 90.00 30 Fa Mcn [id number] Rit (7038) 0 1.51 LME [place] 11/12/2023 11/12/2023 1 Pregabalin 75 Mg Capsule 90.00 30 Brionna Sha [id number] Rit (7038) 0 1.51 LME [place] Silvina Olu [address] [place] [address] - Shon Shammo [address] [facility] [address] Review of Systems Constitutional: Negative for fever [...] unspecified spinal region (HCC) Tethered cord (HCC) Urinary frequency - URINALYSIS, REFLEX MICROSCOPIC - URINE CULTURE Acute UTI - nitrofurantoin monohydrate and macrocrystal (MACROBID) 100 mg capsule; Take 1 capsule by mouth two times a day for 5 days. Other orders - UA DIP, URINE (POC) Return in about 4 weeks (around 02/22/2024) for INPERSON, chronic pain. . Aidan Forrester MD documented in this encounter [facility] 01-19-2024 Note HNO ID: [id number] Author: LYNNETTE BROOKS RT(R) Service: ? Author [...] PATIENT PRESENTS WITH AN IMPLANTABLE OR ATTACHED IT TECHNICIAN: No RADIOLOGY DEPARTMENT: General X-ray: Exam(s) Completed: Spine X-Ray(s): Lumbar AP / LAT / L5-S1 PERIPHERAL IV DATA: Not applicable SIGNED BY: RT Kayley(R) January 19, 2024 10:58 AM [facility] 01-19-2024 History of Present illness Narrative [...] PATIENT PRESENTS WITH AN IMPLANTABLE OR ATTACHED IT TECHNICIAN: No RADIOLOGY DEPARTMENT: General X-ray: Exam(s) Completed: Spine X-Ray(s): Lumbar AP / LAT / L5-S1 PERIPHERAL IV DATA: Not applicable SIGNED BY: RT Kayley(R) January 19, 2024 10:58 AM documented in this encounter [facility] 01-19-2024 Nurse Note Additional intake questions: Has the patient had fever, nausea, vomiting, diarrhea, constipation, fatigue for > 1 week? No Does the patient have a decreased appetite? No Does patient want to see a Trestleman? No (yes to any of above refer patient to schedulers for dietitian appointment) ) Does patient have any new or increased numbness or tingling of extremities? No Is patient interested in fertility information? No Does patient need any prescription refills? No Does patient have an advanced directive in place? No, Patient referred to [facility] 01-19-2024 Nurse Note Additional intake questions: Has the patient had fever, nausea, vomiting, diarrhea, constipation, fatigue for > 1 week? No Does the patient have a decreased appetite? No Does patient want to see a Trestleman? No (yes to any of above refer patient to schedulers for dietitian appointment) ) Does patient have any new or increased numbness or tingling of extremities? No Is patient interested in fertility information? No Does patient need any prescription refills? No Does patient have an advanced directive in place? No, Patient referred to [facility] documented in this encounter [facility] 01-19-2024 History of Present illness Narrative This note was created using Break Mediar[employer]. Subjective Karlene Tom is a 43 year [...] for 15-20 mins. Review of Systems Objective [facility] 01/04/2024 Physical Exam Constitutional: Appearance: Normal appearance. [...] mid back pain. Filled out questionnaire for claim attorney. Form copied for scanning into chart. F/u uafter imaging. I spent a total of 50 minutes on the date of the service which included preparing to see the patient, docb-ib-sqso patient care, completing clinical documentation, obtaining and/or reviewing separately obtained history, performing a medically appropriate examination, counseling and educating the patient/family/caregiver, ordering medications, tests, or procedures, communicating with other HCPs (not separately reported), independently interpreting results (not separately reported), communicating results to the patient/family/caregiver, and care coordination (not separately reported). documented in this encounter [facility] 01-18-2024 Note Formatting of this n ote is different from the original. CYSTOSCOPY, WITH BOTULINUM TOXIN INJECTION 200 units Operative Note Date: 01/18/2024 OR Location: [facility] OR Name: Karlene Allenrier, : 1980, Age: 43 y.o., , Sex: female Diagnosis Pre-op Diagnosis * Urge incontinence [N39.41] Post-op Diagnosis * Urge incontinence [N39.41] Procedures CYSTOSCOPY, WITH BOTULINUM TOXIN INJECTION 200 units 13132 - CA CYSTOURETHROSCOPY INJ CHEMODENERVATION BLADDER Surgeons * Dominick Lopes - Primary Resident/Fellow/Other Marine Equipment Sales Engineer: Surgeons and Role: * No surgeons found with a matching role * Procedure Summary Anesthesia: General ASA: II Anesthesia Staff: Anesthesiologist: Gene Agrawal MD DIESEL MECHANIC CONSTRUCTION: Maribel Esposito APRN-DIESEL MECHANIC CONSTRUCTION Estimated Blood Loss: 0 mL Intra-op Medications: Administrations occurring from 1040 to 1200 on 01/18/24: * No intraprocedure medications in log * Anesthesia Record Intraprocedure I/O Totals Intake LR infusion 500.00 mL Total Intake 500 mL Output Est. Blood Loss 0 mL Total Output 0 mL Net Net Volume 500 mL Specimen: No specimens collected Staff: Box Cutter: Tara Bourgeois RN Scrub Person: Liliana Solorio [...] scrubbed for the entire procedure. Dominick Lopes [facility] Work Phone: 01-18-2024 Miscellaneous Notes CYSTOSCOPY, WITH BOTULINUM TOXIN INJECTION 200 units Operative Note Date: 01/18/2024 OR Location: [facility] OR Name: Karlene Tom, : 1980, Age: 43 y.o., , Sex: female Diagnosis Pre-op Diagnosis * Urge incontinence [N39.41] Post-op Diagnosis * Urge incontinence [N39.41] Procedures CYSTOSCOPY, WITH BOTULINUM TOXIN INJECTION 200 units [id number] - CA CYSTOURETHROSCOPY INJ CHEMODENERVATION BLADDER Surgeons * Dominick Lopes - Primary Resident/Fellow/Other Marine Equipment Sales Engineer: Surgeons and Role: * No surgeons found with a matching role * Procedure Summary Anesthesia: General ASA: II Anesthesia Staff: Anesthesiologist: Gene Agrawal MD DIESEL MECHANIC CONSTRUCTION: Maribel Esposito APRN-DIESEL MECHANIC CONSTRUCTION Estimated Blood Loss: 0 mL Intra-op Medications: Administrations occurring from 1040 to 1200 on 01/18/24: * No intraprocedure medications in log * Anesthesia Record Intraprocedure I/O Totals Intake LR infusion 500.00 mL Total Intake 500 mL Output Est. Blood Loss 0 mL Total Output 0 mL Net Net Volume 500 mL Specimen: No specimens collected Staff: Box Cutter: Tara Bourgeois RN Scrub Person: Liliana Solorio [...] procedure. Dominick Lopes documented in this encounter [facility] Work Phone: 01-18-2024 Hospital Discharge instructions Naz Graves MD - 01/18/2024 9:56 AM EDT .Urogynecology Post Operative instructions Clinic number: [phone] Call your physicians office or go to [...] operative clinic appointments. documented in this encounter [facility] Work Phone: 01-14-2024 Instructions Elda Danielson MD - 01/14/2024 2:13 PM EDT Information for strabismus surgery with Dr. Danielson Surgery Scheduling [place] - First of each month (children 1 year old and older) and second Thursday of each month (14 years old and older). No major medical comorbidities (including sleep apnea, obesity (BMI greater than 40), and pacemaker). [facility] - First, Third, and Fifth (AM start) Thursday of each month, and Fifth Thursday of each month. Surgery coordinator at [facility] and [facility] [phone]. Please do not plan on any far-away travel within two weeks after surgery day. Pre-Op History and physical exam. All patients must have a pre-operative history and physical to clear them medically for surgery within 30 days of their surgery date. This can be completed by their primary care physician or through the pre-anesthesia testing department. If their physician is outside of the [facility] system, then please bring a printed copy of their history and physical with on the day of their surgery. Schedule pre-anesthesia testing appointment. Call [phone]. Pre-op measurements. Sometimes we do a pre-op [...] prior to surgery, you can send a CIBDO message or you can call Dr. Danielson s office at [phone]. Children get sick a lot! If your [...] home/pick them up from school, etc. Location: [place] - Surgery center is on 2nd floor [facility] - Surgery pre-op waiting areas is 3 Anesthesia. You will meet your anesthesiologist in [...] questions or to examine the patient at [facility], even at night and on the weekends. Dr. Danielson s office number is [phone]. documented in this encounter [facility] 01-14-2024 History of Present illness Narrative ASSESSMENT/PLAN: 1. Monocular exotropia with other noncomitancies, left eye - ICD9: 378.14, ICD10: H50.142 (primary diagnosis) - s/p surgery around 30 years ago in [facility] with Dr. Vel Gómez (both eyes). [...] 2024 2:17 PM documented in this encounter [facility] 01-06-2024 History of Present illness Narrative CC:establish care S: current primary care is in [facility], she lives in [place], [place]. Is looking to transfer care to [facility] for speciality and primary. PMH: CHronic low [...] wants to discuss weight gain. Tracie Williamson APRN.[facility] documented in this encounter [facility] 12-08-2023 Miscellaneous Notes Images from the original note were not included. Time Frame: First available Provider: Thuy Huber Dx: tethered cord Established patient of Dr. Huber but not seen since 2018. Interval HPI : Ms. Tom is 37 year old female SP L4, L5 laminectomies for cord untethering in 05/2017. She also had previous procedures in infancy and age 14 for resection of associated sacral lipoma Nasima York, MSN, CAFETERIA HELPER, HIGH PRESSURE OPERATOR Certified Nurse Practitioner documented in this encounter [facility] 12-07-2023 History of Present illness Narrative Images [...] previously a patient of Dr. Huber and Kaylene Daley PA-C in the brain tumor department. She states that she has been under the care of advanced neurology in [facility]. She reports that her symptoms are worsening [...] to be reevaluated by Dr. Huber or Kaylene Daley PA-C , to see if she is a surgical candidate or what her treatment options are for low back pain. She is in the process of changing all the doctors to the [facility] for better management of care. Unemployed -she [...] Physicians: Dr. Sharma - PCP Shon Angel HIGH PRESSURE OPERATOR - Neurology Dr. Mccray - Pain management - [facility] Dr. Mcclure and Kaylene BROWNC- Neurosurgery / Brain tumor - 2019 - [...] [Neomycin* Rash Zinc Oxide Rash CURRENT MEDICATIONS: Omcmdeil-Tr-Oua-Fe-FA tab Take 1 tablet by mouth once [...] on this study, largely excluded from the dmuil-wc-zabz. Slightly progressed degenerative endplate marrow signal changes [...] been [facility] [place] to seek out possible consideration for spinal cord stimulator. She states that she is unable to have epidural steroid injections due to significant spine history. At time of today's appointment she states that she does not want to proceed further with treatment without surgical opinion of Dr. Huber and Kaylene Daley PA-C , as they previously had [...] 4. Referrals: Brain Tumor Dr. Huber or Kaylene Daley PA-C and CPRP 5. Considerations:TBD 6. Follow up: PRN Imaging Ordered: None SIGNATURE: Norma Lyman APRN.CNP PATIENT NAME: Karlene Tom DATE: December 07, 2023 TIME: 2:42 PM documented in this encounter [facility] 12-01-2023 History of Present illness Narrative Encounter [...] agree with all of its relevant components. Frank Gutierrez OD December 01, 2023 12:00 PM documented in this encounter [facility] 03-18-2023 Note Patient Education [place] olguin [facility] General Ambulatory Surgery Adult Home Going [...] by your care provider ? Only take kbhh-pym-vmcijdc or prescription medications as directed ? Slowly resume diet ? Activity as directed by your surgeon ? Use extra care climbing stairs or walking with crutches If you have questions or problems that seem to be related to the anesthetic, call the hospital at [phone] and ask for the ENTEROSTOMAL NURSE parachute packer or anesthesiologist. Thank you for the privilege [...] you not to). (more content not included)... [facility] 03-18-2023 Note REYNALDO Education Entere d On: [...] Rosa Faye RN - 03/18/2023 8:36 EDT [facility] 03-18-[address] Entered On: [...] risk situation (congregated living, hemodialysis, infusion clinic, fpc, assisted living, snf, homeless half-way, etc.)? : No Rosa Faye RN - [...] Makeup and Jewelry Removed : Yes Nail French Removed : Yes Wearing Patient Gown/Street Clothes [...] Faye RN - 03/18/2023 9:28 EDT Allergy Bench Inspector : Yes Fall Risk Bench Inspector : Yes Review of Labs : Yes HCG / UPREG : Yes (Comment: ON ADMIT [Palmer WILEY Frannie - 03/06/2023 13:59 EDT] ) Palmer WILEY Frannie - 03/18/2023 8:34 EDT Current H&P in Medical Record : Yes Siri Dwyer RN - 03/16/2023 8:32 EDT Urine C&S : Yes (Comment: FAXED & CALLED TO SURGEON'S OFFICE [Palmer WILEY [place] - 03/09/2023 7:56 EDT] ) Palmer WILEY Frannie - 03/09/2023 7:56 EDT Verification DCP GENERIC [...] Directive Additional Information : No Palmer WILEY Frannie - 03/06/2023 14:06 EDT [facility] 03-06-2023 Note Patient: SUSANNE TOM Age: 42 [...] No deformity, Normal gait. Integumentary: Warm, Dry, Chappell. Neurologic: Alert, Oriented, Normal sensory, Normal motor [...] voice recognition technology. Verbal misinterpretations may occur. [facility] 03-06-2023 Note REYNALDO Education Entere d On: 03/06/2023 13:59 EDT Performed On: 03/06/2023 13:59 EDT by Frannie Chakraborty RN General / Required Barriers to Learning : None evident TeachBack Methodology : Explanation, Printed Material Frannie Chakraborty RN 03/06/2023 13:59 EDT Education Nursing General Required GRID Pain Management : Verbalizes understanding Speakup : Verbalizes understanding [facility] 03/06/2023 13:59 EDT Topic Specific Education Medication Management GRID Pain Can Be Managed,Relieved : Verbalizes understanding Frannie Chakraborty RN 03/06/2023 13:59 EDT Infection Control Education Dialysis Surgery - Hospital form # [id number] : Verbalizes understanding Palmer WILEY Frannie - 03/06/2023 13:59 EDT Pain Pain Education Topics Grid Pain Assessment Tool : Verbalizes understanding Pain Can Be Managed/Relieved : Verbalizes understanding [facility] 03/06/2023 13:59 EDT Pre Procedure / Surgery Education Procedures Tests Exams GRID NPO : Verbalizes understanding Preoperative Instructions : Verbalizes understanding Preprocedure Tests/Labs : Verbalizes understanding Preprocedure Diet : Verbalizes understanding Palmer WILEY Frannie - 03/06/2023 13:59 EDT [facility] 10-06-2022 Note Post Operative Note: PreOp Diagnosis: Neurogenic bladder, OAB Post-Procedure Diagnosis: Neurogenic bladder, OAB Procedure: 1. Intradetrusor botox 2. Cystoscopy 3. 4. 5. Surgeon: Lina Lopes Resident/Fellow/Other Marine Equipment Sales Engineer: Johana Cullen Anesthesia: LMA Estimated Blood Loss [...] the entire procedure Electronic Signatures: Norma Cullen ( (Fellow)) (Signed 06-Oct-2022 08:30) Authored: Post Operative Note, Note Completion Dominick Lopes) (Signed 07-Oct-2022 08:14) Authored: Note Completion Co-Signer: Post Operative Note, Note Completion Last Updated: 07-Oct-2022 08:14 by Dominick Lopes) [facility] 10-06-2022 Note History of [...] the note. I personally evaluated the patient [id number] Electronic Signatures: Norma Cullen (Fellow)) (Signed 05-Oct-2022 19:05) Authored: History of Present Illness, Allergies, Home Medication Review, Impression/Procedure, ERAS, Review of Systems, Physical Exam, Consent, Note Completion Dominick Lopes) (Signed 06-Oct-2022 08:28) Authored: Note Completion Co-Signer: History of Present Illness, Allergies, Home Medication Review, Impression/Procedure, ERAS, Review of Systems, Physical Exam, Consent, Note Completion Last Updated: 06-Oct-2022 08:28 by Dominick Lopes) [facility] 06-10-2022 Procedure note [facility] 09-05-2021 Evaluation note Encounter Date Diagnosis [...] Follow up with primary care provider or mini lab operator if no improvement of symptoms. [employer] Other [id number] History of Past illness Narrative* Problem Noted Date Diagnosed Date Resolved Date care, subsequent 06/07/2012 01/06/2024 Unspecified site of sprain and strain 10/25/2003 05/17/2012 documented as of this encounter (statuses as of 01/09/2024) [address]04-[address] History of Past illness Narrative* Problem Noted Date Diagnosed Date Resolved Date Unspecified site of sprain and strain 10/25/2003 05/17/2012 documented as of this encounter (statuses as of 12/02/2023) [address] History of Past illness Narrative* Problem Noted Date Diagnosed Date Resolved Date Unspecified site of sprain and strain 10/25/2003 05/17/2012 documented as of this encounter (statuses as of 12/08/2023) [address] History of Past illness Narrative* Problem Noted Date Diagnosed Date Resolved Date Unspecified site of sprain and strain 10/25/2003 05/17/2012 documented as of this encounter (statuses as of 12/08/2023) [facility]No [facility] note* Diagnosis 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 amblyopia Diplopia documented in this encounter [facility] note* Diagnosis Tethered cord (HCC)- Primary Other specified congenital anomaly of spinal cord Hx of spina bifida Personal history of (corrected) congenital malformations of integument, limbs, and musculoskeletal systems Chronic bilateral low back pain, unspecified whether sciatica present H/O laminectomy Other postprocedural status Chronic pain syndrome [facility] Diagnosis Tethered cord (HCC) [Q06.8]- Primary Other specified congenital anomaly of spinal cord documented in this encounter [facility] note* Diagnosis Encounter to establish care- Primary Other reasons for seeking consultation Tethered cord (HCC) Other specified congenital anomaly of spinal cord Spina bifida, unspecified hydrocephalus presence, unspecified spinal region (HCC) Other chronic pain Smoker Tobacco use disorder Mood disorder (HCC) Unspecified episodic mood disorder [facility] Diagnosis Monocular exotropia with other noncomitancies, left eye- Primary Hypotropia of left eye Amblyopia, left eye Amblyopia, unspecified [facility]* Diagnosis Urge incontinence- Primary Post-operative pain Other acute postoperative pain Urge incontinence Obesity Obesity, unspecified documented in this encounter [facility] Work Phone: Evaluation note* Diagnosis Tethered cord [...] noncomitancies, left eye [facility]* Diagnosis Tethered cord (HCC) Other specified congenital anomaly of spinal cord Hx of spina bifida Personal history of (corrected) congenital malformations of integument, limbs, and musculoskeletal systems Chronic bilateral low back pain, unspecified whether sciatica present H/O laminectomy Other postprocedural status Chronic pain syndrome Monocular exotropia with other noncomitancies, left eye [facility]* Diagnosis Chronic bilateral low back pain, [...] noncomitancies, left eye [facility]* Diagnosis Urge incontinence- Primary documented in this encounter [facility] Work Phone: Evaluation note* Diagnosis Nontoxic single thyroid nodule Nontoxic uninodular goiter Monocular exotropia with other noncomitancies, left eye [facility] this encounter [facility]* Diagnosis Multiple thyroid nodules- Primary Nontoxic multinodular goiter Monocular exotropia with other noncomitancies, left eye [facility] Diagnosis Thyroid nodule- Primary Nontoxic uninodular goiter Monocular exotropia with other noncomitancies, left eye [facility] this encounter [facility]* Diagnosis Multiple thyroid nodules- Primary Nontoxic multinodular goiter Chronic bilateral low back pain, unspecified whether sciatica present Heartburn Nausea Nausea alone Chronic daily headache Headache Monocular exotropia with other noncomitancies, left eye [facility]* Diagnosis Chronic bilateral low back pain, [...] documented [facility] this [facility]* Diagnosis Tethered cord (HCC)- Primary 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, unspecified Monocular exotropia with other noncomitancies, left eye [facility] this [facility]* Diagnosis Chronic bilateral low back pain with sciatica, sciatica laterality unspecified- Primary Monocular exotropia with other noncomitancies, left eye [facility]* Diagnosis Chronic bilateral low back pain [...] documented [facility]* Diagnosis Chronic bilateral low back pain with sciatica, sciatica laterality unspecified- Primary Monocular exotropia with other noncomitancies, left eye [facility]* Diagnosis Chronic bilateral low back pain with sciatica, sciatica laterality unspecified- Primary Monocular exotropia with other noncomitancies, left eye [facility] in [facility]* Diagnosis Chronic bilateral low back pain with sciatica, sciatica laterality unspecified- Primary Monocular exotropia with other noncomitancies, left eye [facility]* Diagnosis Thyroid nodule Nontoxic uninodular goiter Monocular exotropia with other noncomitancies, left eye [facility] in this [facility]* Diagnosis Chronic bilateral low back pain, unspecified whether sciatica present Monocular exotropia with other noncomitancies, left eye documented in [facility]* Diagnosis Thyroid nodule- Primary Nontoxic uninodular goiter Monocular exotropia with other noncomitancies, left eye [facility] this [facility]* Diagnosis Airway compromise- Primary Other diseases of respiratory system, not elsewhere classified Multiple thyroid nodules Nontoxic multinodular goiter Monocular exotropia with other noncomitancies, left eye [facility] this [facility]* Diagnosis Non-toxic multinodular goiter- Primary Nontoxic multinodular goiter Monocular exotropia with other noncomitancies, left eye [facility] Pre-op [facility]- Primary Preoperative examination, [...] noncomitancies, left eye [facility] this [facility]* Diagnosis Adjustment disorder with mixed anxiety [...] noncomitancies, left eye [facility] this [facility]* Diagnosis Chronic bilateral low back pain, unspecified whether sciatica present [facility]* Diagnosis Monocular exotropia with other noncomitancies, left eye- Primary Hypotropia of left eye [facility]* Diagnosis Chronic pain syndrome- Primary Hx of spina bifida Personal history of (corrected) congenital malformations of integument, limbs, and musculoskeletal systems Chronic bilateral low back pain with sciatica, sciatica laterality unspecified Tethered cord (HCC) Other specified congenital anomaly of spinal cord Hx of laminectomy Other postprocedural status Anxiety and depression Dysthymic disorder [facility]* Diagnosis Monocular exotropia with other noncomitancies, left eye- Primary Hypotropia of left eye [facility]* Diagnosis Encounter for observation for other suspected diseases and conditions ruled out Abnormal findings on diagnostic imaging of other parts of musculoskeletal system Pain in thoracic spine [facility] this encounter [facility]* Diagnosis RUQ pain- Primary Abdominal pain, right upper quadrant Screening for depression Encounter for immunization Need for other specified prophylactic vaccination against single bacterial disease Encounter for screening examination for other mental health and behavioral disorders Multiple thyroid nodules Nontoxic multinodular goiter [facility]* Diagnosis RUQ pain Abdominal pain, right upper quadrant [facility] this [facility]* Diagnosis Chronic bilateral low back pain, unspecified whether sciatica present RUQ pain Abdominal pain, right upper quadrant [facility]* Diagnosis Other chronic pain- Primary [facility]* Diagnosis Morbid obesity with BMI of 40.0-44.9, adult (HCC)- Primary Morbid obesity Current every day smoker Tobacco use disorder Vapes nicotine containing substance [facility]* Diagnosis Encounter for screening mammogram for breast cancer [facility]* Diagnosis Severe obesity (BMI >= 40) (HCC)- Primary Morbid obesity BMI 40.0-44.9, adult (HCC) Body Mass Index 40.0-44.9, adult Multiple thyroid nodules Nontoxic multinodular goiter Fatty liver Other chronic nonalcoholic liver disease Spina bifida, unspecified hydrocephalus presence, unspecified spinal region (HCC) Chronic bilateral low back pain with right-sided sciatica Medication management Encounter for long-term (current) use of other medications Dietary counseling Dietary surveillance and counseling Exercise counseling documented in this encounter [facility] note* Diagnosis Acute UTI Urinary tract infection, site not specified documented in this encounter [facility] note* Diagnosis Chronic bilateral low back pain, unspecified whether sciatica present documented in this encounter [facility] note* Diagnosis Severe obesity (BMI >= 40) (HCC)- Primary Morbid obesity [facility]* Diagnosis Chronic bilateral low back pain, unspecified whether sciatica present [facility]* Diagnosis Multiple thyroid nodules- Primary Nontoxic multinodular goiter documented [facility] this [facility]* Diagnosis Multiple thyroid nodules- Primary Nontoxic multinodular goiter Thyroid nodule Nontoxic uninodular goiter Multiple thyroid nodules Nontoxic multinodular goiter documented in this encounter [facility] note* Diagnosis Severe obesity (BMI >= 40) (HCC) Morbid obesity Multiple thyroid nodules Nontoxic multinodular goiter [facility]* Diagnosis Multiple thyroid nodules Nontoxic multinodular goiter Multiple thyroid nodules Nontoxic multinodular goiter documented in this encounter [facility] note* Diagnosis Pre-op evaluation- Primary Preoperative examination, unspecified Morbid obesity with BMI of 40.0-44.9, adult (HCC) Morbid obesity Difficult intravenous access Other specified conditions influencing health status Abnormal urine odor Other nonspecific finding on examination of urine Neurogenic bladder Neurogenic bladder, NOS Smoker Tobacco use disorder Spina bifida, unspecified hydrocephalus presence, unspecified spinal region (HCC) Multiple thyroid nodules Nontoxic multinodular goiter * Assessment & Plan Note - Rod Randhawa PA-C - 12/14/2024 11:31 AM EDT Associated Problem(s): Spina bifida (HCC) Spina bifida, 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 On Tramadol, Lyrica. Limited in activity due to back pain. Follows with neurology. * Assessment & Plan Note - Rod Randhawa PA-C - 12/14/2024 11:25 AM EDT Associated Problem(s): Smoker Quit smoking 06/2024. * Assessment & Plan Note - Rod Randhawa PA-C - 12/14/2024 11:24 AM EDT Associated Problem(s): Neurogenic bladder Self-catheterizes. States she may have a UTI, has abnormal urine odor. Will have urine studies done at PCP office 12/20. * Assessment & Plan Note - Rod Randhawa PA-C - 12/14/2024 10:32 AM EDT Associated Problem(s): Difficult intravenous access Has needed US guidance. * Assessment & Plan Note - Rod Randhawa PA-C - 12/14/2024 10:31 AM EDT Associated Problem(s): Morbid obesity with BMI of 40.0-44.9, adult (HCC) Body mass index is 43.07 kg/m . Was on Trulicity, stopped the beginning of November. [facility]* Diagnosis Pre-op evaluation- Primary Preoperative examination, unspecified Morbid obesity with BMI of 40.0-44.9, adult (HCC) Morbid obesity Difficult intravenous access Other specified conditions influencing health status Abnormal urine odor Other nonspecific finding on examination of urine Neurogenic bladder Neurogenic bladder, NOS Smoker Tobacco use disorder Spina bifida, unspecified hydrocephalus presence, unspecified spinal region (HCC) Abnormal urine odor- Primary Other nonspecific finding on examination of urine Chronic bilateral low back pain with right-sided sciatica Preop testing Preoperative examination, unspecified Spina bifida, unspecified hydrocephalus presence, unspecified spinal region (HCC) Neurogenic bladder Neurogenic bladder, NOS Multiple thyroid nodules Nontoxic multinodular goiter Multiple thyroid nodules Nontoxic multinodular goiter [facility]* Diagnosis Pre-op evaluation- Primary Preoperative examination, unspecified Morbid obesity with BMI of 40.0-44.9, adult (HCC) Morbid obesity Difficult intravenous access Other specified conditions influencing health status Abnormal urine odor Other nonspecific finding on examination of urine Neurogenic bladder Neurogenic bladder, NOS Smoker Tobacco use disorder Spina bifida, unspecified hydrocephalus presence, unspecified spinal region (HCC) Chronic bilateral low back pain, unspecified whether sciatica present Multiple thyroid nodules Nontoxic multinodular goiter [facility]* Diagnosis Pre-op evaluation- Primary Preoperative examination, unspecified Morbid obesity with BMI of 40.0-44.9, adult (HCC) Morbid obesity Difficult intravenous access Other specified conditions influencing health status Abnormal urine odor Other nonspecific finding on examination of urine Neurogenic bladder Neurogenic bladder, NOS Smoker Tobacco use disorder Spina bifida, unspecified hydrocephalus presence, unspecified spinal region (HCC) Acute cystitis with hematuria Acute cystitis Chronic bilateral low back pain, unspecified whether sciatica present Multiple thyroid nodules Nontoxic multinodular goiter [facility]* Diagnosis Pre-op evaluation- Primary Preoperative examination, unspecified Morbid obesity with BMI of 40.0-44.9, adult (HCC) Morbid obesity Difficult intravenous access Other specified conditions influencing health status Abnormal urine odor Other nonspecific finding on examination of urine Neurogenic bladder Neurogenic bladder, NOS Smoker Tobacco use disorder Spina bifida, unspecified hydrocephalus presence, unspecified spinal region (HCC) Acute cystitis with hematuria Acute cystitis Other chronic pain- Primary Multiple thyroid nodules Nontoxic multinodular goiter [facility]* Diagnosis Pre-op evaluation- Primary Preoperative examination, unspecified Morbid obesity with BMI of 40.0-44.9, adult (HCC) Morbid obesity Difficult intravenous access Other specified conditions influencing health status Abnormal urine odor Other nonspecific finding on examination of urine Neurogenic bladder Neurogenic bladder, NOS Smoker Tobacco use disorder Spina bifida, unspecified hydrocephalus presence, unspecified spinal region (HCC) Acute cystitis with hematuria Acute cystitis Chronic right-sided low back pain with right-sided sciatica- Primary Thyroid nodule Nontoxic uninodular goiter Mixed hyperlipidemia Chronic fatigue Other malaise and fatigue Vitamin D deficiency Unspecified vitamin D deficiency Hyperglycemia Other abnormal glucose Multiple thyroid nodules Nontoxic multinodular goiter [facility]* Diagnosis Pre-op evaluation- Primary Preoperative examination, unspecified Morbid obesity with BMI of 40.0-44.9, adult (HCC) Morbid obesity Difficult intravenous access Other specified conditions influencing health status Abnormal urine odor Other nonspecific finding on examination of urine Neurogenic bladder Neurogenic bladder, NOS Smoker Tobacco use disorder Spina bifida, unspecified hydrocephalus presence, unspecified spinal region (HCC) Acute cystitis with hematuria Acute cystitis Spina bifida with hydrocephalus, unspecified spinal region (HCC)- Primary documented in this encounter [facility] general Narrative - Reported* Type Description [...] botox in bladder Hospitalization History see above [facility] Other Reason for referral (narrative)* Diagnostic Procedure Only (Routine) - Pending Review Specialty Diagnoses / Procedures Referred By Aaliyah t Referred To Contact XR IMAGING Diagnoses Tethered cord (HCC) Hx of spina bifida Chronic bilateral low back pain, unspecified whether sciatica present H/O laminectomy Chronic pain syndrome Procedures XR LUMBAR GENERAL 3V AP/LAT/L5-S1 RADEX SPINE LUMBOSACRAL 2/3 VIEWS Norma Lyman, CAFETERIA HELPER.HIGH PRESSURE OPERATOR [address] [place] [address] [place] [address] Referral ID Status Reason Start Date Expiration Date Visits Requested Visits Authorized [id number] Pending Review Auto-Generat ed Referral 12/07/2023 01/05/2025 1 1 * Consult, Test, Treat (Routine) - Pending Review Specialty Diagnoses / Procedures Referred By Contac t Referred To Contact Spine Liberal Diagnoses Tethered cord (HCC) Hx of spina bifida Chronic bilateral low back pain, unspecified whether sciatica present H/O laminectomy Chronic pain syndrome Procedures CONSULT TO [facility] OFFICE/OUTPATIENT [facility] 60 MINUTES Norma Lyman APRN.CNP [id number] [id number] Referral ID Status Reason Start Date Expiration Date Visits Requested Visits Authorized [id number] Pending Review PCP Requested Referral 12/07/2023 12/06/2024 1 1 * Consult, Test, Treat (Routine) - Authorized Specialty Diagnoses / Procedures Referred By Contac t Referred To Contact Neurology Diagnoses Tethered cord (HCC) Hx of spina bifida Chronic bilateral low back pain, unspecified whether sciatica present H/O laminectomy Chronic pain syndrome Procedures CONSULT TO NEUROLOGY OFFICE/OUTPATIENT [facility] 60 MINUTES Norma Lyman APRN.HIGH PRESSURE OPERATOR [id number] [id number] Referral ID Status Reason Start Date Expiration Date Visits Requested Visits Authorized [id number] Authorized PCP Requested Referral 12/07/2023 12/06/2024 1 1 [facility] Diagnostic Procedure Only (Routine) - Authorized Specialty Diagnoses / Procedures Referred By Contac t Referred To Contact US IMAGING Diagnoses RUQ pain Procedures US ABD RIGHT UPPER QUADRANT US ABDOMINAL REAL TIME W/IMAGE LIMITED Aidan Montenegro MD [address] [place] [address] [place] [address] Referral ID Status Reason Start Date Expiration Date Visits Requested Visits Authorized [id number] Authorized Auto-Generat ed Referral 06/23/2024 07/23/2025 1 1 [facility] for referral (narrative)* Diagnostic Procedure Only (Routine) - New Request Specialty Diagnoses / Procedures Referred By Aaliyah grey Referred To Contact BR IMAGING Diagnoses Encounter for screening mammogram for breast cancer Procedures HUDSON SCREENING W STEFFEN SCREENING DIGITAL BREAST TOMOSYNTHESIS BI SCREENING MAMMOGRAPHY BI 2-VIEW BREAST INC CAD Aidan Montenegro MD [address] [place] [address] Br [facility] [address] [place] [address] Referral ID Status Reason Start Date Expiration Date Visits Requested Visits Authorized [id number] New Request Auto-Generat ed Referral 4 09/02/2025 1 1 [facility] for visit Narrative* Diagnostic Procedure Only (Routine) - Closed Specialty Diagnoses / Procedures Referred By Aaliyah grey Referred To Contact XR IMAGING Diagnoses Tethered cord (HCC) Hx of spina bifida Chronic bilateral low back pain, unspecified whether sciatica present H/O laminectomy Chronic pain syndrome Procedures XR LUMBAR GENERAL 3V AP/LAT/L5-S1 RADEX SPINE LUMBOSACRAL 2/3 VIEWS Norma Lyman, CAFETERIA HELPER.HIGH PRESSURE OPERATOR [address] [place] [address] Xr Imaging [facility] Referral ID Status Reason Start Date Expiration Date V isits Requested Visits Authorized [id number] Closed Auto-Generate d Referral 12/07/2023 01/05/2025 1 1 [facility] for visit Narrative* Diagnostic Procedure Only (Routine) - Closed Specialty Diagnoses / Procedures Referred By Aaliyah grey Referred To Contact US IMAGING Diagnoses Nontoxic single thyroid nodule Procedures US THYROID/PARATHYROID US SOFT TISSUE HEAD & NECK REAL TIME IMGE Kaylene Mills PA-C [address] [place] [address] [place] [address] Referral ID Status Reason Start Date Expiration Date V isits Requested Visits Authorized [id number] Closed Auto-Generate d Referral 02/04/2024 03/05/2025 1 1 [facility] for visit Narrative* Diagnostic Procedure Only (Routine) - Closed Specialty Diagnoses / Procedures Referred By Contac t Referred To Contact US IMAGING Diagnoses RUQ pain Procedures US ABD RIGHT UPPER QUADRANT US ABDOMINAL REAL TIME W/IMAGE LIMITED Aidan Montenegro MD [address] [place] [address] [place] [address] Referral ID Status Reason Start Date Expiration Date V isits Requested Visits Authorized [id number] Closed Auto-Generate d Referral 06/23/2024 07/23/2025 1 1 [facility] for visit Narrative* Outpatient Procedure (Routine) - Closed Specialty Diagnoses / Procedures Referred By Contac t Referred To [facility] Diagnoses Multiple thyroid nodules Procedures ECG COMPLETE ECG ROUTINE ECG W/LEAST 12 LDS W/I&R Bri Vo MD [address] [place] [address] Phone: tel: fax: [facility] [id number] [place] [address] Referral ID Status Reason Start Date Expiration Date V isits Requested Visits Authorized [id number] Closed Auto-Generate d Referral 11/08/2024 11/08/2025 1 1 [facility] Summary Purpose Family History Relationship Condition Age at Onset Recorded Date/T nia father Malignant neoplasm Unknown Hypertension Unknown Not Specified Malignant neoplasm Unknown Advance Directives Advance Directive Response Recorded Date/ Time Advance [...] Referral Specialty Diagnoses / Procedures Referred By Contac t Referred To Contact Diagnoses Severe obesity (BMI >= 40) (HCC) Procedures ENDOCRINOLOGY DIETITIAN VISIT (MNT) MEDICAL NUTRITION ASSMT&IVNTJ INDIV EACH 15 [place] MEDICAL NUTRITION ASSMT&IVNTJ INDIV EACH 15 [place] MEDICAL NUTRITION ASSMT&IVNTJ INDIV EACH 15 [place] MEDICAL NUTRITION ASSMT&IVNTJ INDIV EACH 15 [place] Brayan Dave APRN.HIGH PRESSURE OPERATOR [address] [place] [address] Referral ID Status Reason Start Date Expiration Date Visits Requested Visits Authorized [id number] Authorized PCP Requested Referral 4 09/08/2025 1 1 Specialty Diagnoses / Procedures Referred By Contac t Referred To Contact Diagnoses Morbid obesity with BMI of 40.0-44.9, adult (HCC) Procedures CONSULT TO HEPATOLOGY OFFICE/OUTPATIENT [facility] 60 MINUTES Aidan Montenegro MD [address] [place] [address] Referral ID Status Reason Start Date Expiration Date Visits Requested Visits Authorized [id number] Authorized PCP Requested Referral 4 08/01/2025 1 1 Specialty Diagnoses / Procedures Referred By Contac t Referred To Contact Diagnoses Morbid obesity with BMI of 40.0-44.9, adult (HCC) Procedures ENDOCRINE MEDICAL WEIGHT MANAGEMENT OFFICE/OUTPATIENT [facility] 60 MINUTES Aidan Montenegro MD [address] [place] [address] Referral ID Status Reason Start Date Expiration Date Visits Requested Visits Authorized [id number] Authorized PCP Requested Referral 4 08/01/2025 1 1 Specialty Diagnoses / Procedures Referred By Contac t Referred To Contact Pain Management Diagnoses Other chronic pain Procedures CONSULT TO PAIN MGT OFFICE/OUTPATIENT [facility] 60 MINUTES Kaylene Daley PA-C [address] [place] [address] Referral ID Status Reason Start Date Expiration Date Visits Requested Visits Authorized [id number] Authorized PCP Requested Referral 07/08/2025 1 1 Specialty Diagnoses / Procedures Referred By Contac t Referred To Contact CT IMAGING Diagnoses Multiple thyroid nodules Procedures CT NECK SOFT TISSUE W IVCON CT SOFT TISSUE NECK W/[place] [address] [place] [address] [place] [address] Referral ID Status Reason Start Date Expiration Date Visits Requested Visits Authorized [id number] Additional Clinical Info Needed Auto-Generat ed Referral 04/05/2024 05/05/2025 1 1 Specialty Diagnoses / Procedures Referred By Contac t Referred To Contact Diagnoses Thyroid nodule Procedures CONSULT TO ENDOCRINE SURGERY OFFICE/OUTPATIENT [facility] 60 MINUTES Jailene Dave MD [address] [place] [address] Referral ID Status Reason Start Date Expiration Date Visits Requested Visits Authorized [id number] Authorized PCP Requested Referral 03/25/2024 03/25/2025 1 1 Specialty Diagnoses / Procedures Referred By Contac t Referred To Contact Endocrinology Diagnoses Thyroid nodule Procedures CONSULT TO ENDOCRINOLOGY OFFICE/OUTPATIENT [facility] 60 MINUTES Aidan Montenegro MD [address] [place] [address] Referral ID Status Reason Start Date Expiration Date Visits Requested Visits Authorized [id number] Authorized PCP Requested Referral 02/12/2024 02/11/2025 1 1 Specialty Diagnoses / Procedures Referred By Contac t Referred To Contact Ent - Otolaryngology Diagnoses Multiple thyroid nodules Procedures CONSULT TO ENT OFFICE/OUTPATIENT [facility] 60 MINUTES Kyalene Daley PA-C [address] [place] [address] Referral ID Status Reason Start Date Expiration Date Visits Requested Visits Authorized [id number] Authorized PCP Requested Referral 02/15/2024 02/11/2025 1 1 Specialty Diagnoses / Procedures Referred By Contac t Referred To Contact MR IMAGING Diagnoses Pain in thoracic spine Procedures MRI THORACIC SPINE WO IVCON MRI SPINAL CANAL THORACIC W/O CONTRAST MATRL Kaylene Daley PA-C [address] [place] [id number] Mr Imaging [facility] Referral ID Status Reason Start Date Expiration Date Visits Requested Visits Authorized [id number] Additional Clinical Info Needed Auto-Generat ed Referral 01/19/2024 02/17/2025 1 1 Specialty Diagnoses / Procedures Referred By Contac t Referred To Contact MR IMAGING Diagnoses Abnormal findings on diagnostic imaging of other parts of musculoskeletal system Procedures MRI CERVICAL SPINE WO IVCON MRI SPINAL CANAL CERVICAL W/O CONTRAST Kaylene Smith PA-C [address] [place] [id number] Mr Imaging [facility] Referral ID Status Reason Start Date Expiration Date Visits Requested Visits Authorized [id number] Pending Review Auto-Generat ed Referral 01/19/2024 02/17/2025 1 1 Specialty Diagnoses / Procedures Referred By Contac t Referred To Contact MR IMAGING Diagnoses Encounter for observation for other suspected diseases and conditions ruled out Procedures MRI LUMBAR SPINE WO IVCON MRI SPINAL CANAL LUMBAR W/O CONTRAST MATERIAL Kaylene Daley PA-C [address] [place] [address] Mr Imaging [id number] Referral ID Status Reason Start Date Expiration Date Visits Requested Visits Authorized [id number] Pending Review Auto-Generat ed Referral 01/19/2024 02/17/2025 1 1 Additional Source Comments INFORMATION SOURCE (unrecogn ized section and content) DATE CREATED AUTHOR 05/29/2020 [facility] DATE CREATED AUTHOR AUTHOR'S ORGANIZ ATION 12/27/2022 [facility] DATE CREATED AUTHOR AUTHOR'S ORGANIZ ATION 03/01/2023 [facility] DATE CREATED AUTHOR AUTHOR'S ORGANIZ ATION 03/20/2023 [facility] DATE CREATED AUTHOR AUTHOR'S ORGANIZ ATION 11/22/2023 [facility] DATE CREATED AUTHOR AUTHOR'S ORGANIZ ATION 01/25/2024 [facility] DATE CREATED AUTHOR AUTHOR'S ORGANIZ ATION 02/10/2024 [facility] DATE CREATED AUTHOR AUTHOR'S ORGANIZ ATION 06/11/2024 [facility] DATE CREATED AUTHOR AUTHOR'S ORGANIZ ATION 07/04/2024 [facility] DATE CREATED AUTHOR AUTHOR'S ORGANIZ ATION 04/04/2025 [facility] REASON FOR VISIT (unrecogniz ed section and content) Reason Comments Strabismus Evaluation Reason Comments New Patient Low Back pain Reason Comments Nurse Triage Call Reason Comments Establish Care Back Pain Sciatic Results Had labs done from a [facility] doctor results were off did not bring them done at [facility] Weight Problem Told to get thyroid panel was not done with recent labs hair loss Specialty Diagnoses / Procedures Referred By Aaliyah grey Referred To Contact Diagnoses Urge incontinence Urge incontinence [N39.41] Procedures CA CYSTOURETHROSCOPY INJ CHEMODENERVATION BLADDER CYSTOSCOPY, WITH BOTULINUM TOXIN INJECTION [address] [place] [address] [facility] [address], [facility] [address] [place] [address] [place] [address] [place] [address] Referral ID Status Reason Start Date Expiration Date Visits Re quested Visits Authorized [id number] 1 1 Reason Comments New Patient Specialty Diagnoses / Procedures Referred By Aaliyah grey Referred To Contact Neurology Diagnoses Tethered cord (HCC) Hx of spina bifida Chronic bilateral low back pain, unspecified whether sciatica present H/O laminectomy Chronic pain syndrome Procedures CONSULT TO NEUROLOGY OFFICE/OUTPATIENT NEW [facility] 60 MINUTES Norma Lyman, CAFETERIA HELPER.HIGH PRESSURE OPERATOR [address] [place] [phone] Referral ID Status Reason Start Date Expiration Date V isits Requested Visits Authorized [id number] Closed PCP Requested Referral 12/07/2023 12/06/2024 1 [...] By Contac t Referred To Contact Spine Liberal / NEUROLOGY PAIN Diagnoses Tethered cord (HCC) Hx of spina bifida Chronic bilateral low back pain, unspecified whether sciatica present H/O laminectomy Chronic pain syndrome Procedures CONSULT TO [place] FOR PAIN RECOVERY (CHRONIC PAIN) OFFICE/OUTPATIENT [facility] 60 MINUTES Norma Lyman, CAFETERIA HELPER.HIGH PRESSURE OPERATOR [address] [place] [phone] Neur Pain Recovery Med C[address] [address] [place] [id number] Referral ID Status Reason Start Date Expiration Date Visits Requested Visits Authorized [id number] Authorized PCP Requested Referral 02/03/2024 09/20/2024 99 99 Reason Comments Follow Up Reason Comments Infusion Specialty Diagnoses / Procedures Referred By Contac t Referred To Contact Neurology / NEUROLOGY PAIN Diagnoses KETAMINE INFUSIONS Procedures INFUSION KETAMINE Self Spine Chronic Pain Infusions Walker [address] [address] [place] [id number] Referral ID Status Reason Start Date Expiration Date Visits Requested Visits Authorized [id number] Authorized Patient Cleared - INN Insurance Found 03/10/2024 06/08/2024 1 99 Reason Comments Thyroid Nodule Specialty Diagnoses / Procedures Referred By Contac t Referred To Contact Endocrinology Diagnoses Thyroid nodule Procedures CONSULT TO ENDOCRINOLOGY OFFICE/OUTPATIENT [facility] 60 MINUTES Aidan Montenegro MD [address] [place] [address] Referral ID Status Reason Start Date Expiration Date V isits Requested Visits Authorized [id number] Closed PCP Requested Referral 02/12/2024 02/11/2025 1 [...] thyroid nodules Procedures CONSULT TO ENT OFFICE/OUTPATIENT [facility] 60 MINUTES Kaylene Daley PA-C [address] [place] [address] Referral ID Status Reason Start Date Expiration Date V isits Requested Visits Authorized [id number] Closed PCP Requested Referral 02/15/2024 02/11/2025 1 1 Reason Comments Results Reason Comments Consult Reason Onset Date Comments Refill Request 05/01/2024 Reason Comments Post Op Reason Comments Medication Problem Specialty Diagnoses / Procedures Referred By Contac t Referred To Contact MR IMAGING Diagnoses Pain in thoracic spine Procedures MRI THORACIC SPINE WO IVCON MRI SPINAL CANAL THORACIC W/O CONTRAST MATRL Kaylene Daley PA-C [address] [id number] Mr Imaging [facility] Referral ID Status Reason Start Date Expiration Date V isits Requested Visits Authorized [id number] Closed Auto-Generate d Referral 01/21/2024 03/21/2024 1 1 Reason Comments Refill Request Back Pain Mid back Nausea Abdominal Pain Diarrhea X1 week. Reason Onset Date Comments Refill Request 07/04/2024 Reason Onset Date Comments Refill Request 07/04/2024 Reason Comments Results liver Low Back Pain Headache dizzy spells Everything goes salma k. Lost balance. Changing position Reason Comments Appointment Pain management Reason Comments New Patient Consult Specialty Diagnoses / Procedures Referred By Contac t Referred To Contact Diagnoses Morbid obesity with BMI of 40.0-44.9, adult (HCC) Procedures ENDOCRINE MEDICAL WEIGHT MANAGEMENT OFFICE/OUTPATIENT [facility] 60 MINUTES Aidan Montenegro MD [address] [place] [address] Referral ID Status Reason Start Date Expiration Date V isits Requested Visits Authorized [id number] Closed PCP Requested Referral 08/01/2024 08/01/2025 1 1 Reason Onset Date Comments Refill Request 09/11/2024 Reason Comments Medical Nutrition Therapy Specialty Diagnoses / Procedures Referred By Contac t Referred To Contact Diagnoses Severe obesity (BMI >= 40) (HCC) Procedures ENDOCRINOLOGY DIETITIAN VISIT (MNT) MEDICAL NUTRITION ASSMT&IVNTJ INDIV EACH 15 [place] MEDICAL NUTRITION ASSMT&IVNTJ INDIV EACH 15 [place] MEDICAL NUTRITION ASSMT&IVNTJ INDIV EACH 15 [place] MEDICAL NUTRITION ASSMT&IVNTJ INDIV EACH 15 [place] Brayan Dave APRN.HIGH PRESSURE OPERATOR [address] [place] [address] Referral ID Status Reason Start Date Expiration Date V isits Requested Visits Authorized [id number] Closed PCP Requested Referral 09/08/2024 09/08/2025 1 1 Reason Onset Date Comments Refill Request 10/05/2024 Reason Onset Date Comments Refill Request 10/16/2024 Reason Comments Consult FACE SHEET Reason Comments Thyroid Disease Specialty Diagnoses / Procedures Referred By Contac t Referred To Contact Diagnoses Thyroid nodule Procedures CONSULT TO ENDOCRINE SURGERY OFFICE/OUTPATIENT [facility] 60 MINUTES Jailene Dave MD [address] [place] [address] Phone: tel: fax: Referral ID Status Reason Start Date Expiration Date V isits Requested Visits Authorized [id number] Closed PCP Requested Referral 03/25/2024 03/25/2025 1 1 Reason Comments Pre-Op Visit Reason Comments Same Day Appointment Mandatory medicine visit Reason Comments Refill Request Reason Comments Appointment Reason Comments Pre-Op Update UTI Reason Comments Establish Care Needs new pcp and wa nts to get health in order. Was supposed to get surgery April 10- 5.5cm mass in neck, told she will not need this unless she is having pain. Care Teams (unrecognized sec tion and content) Team Status: Inactive Member Role Status Dates Juanita Sharma DO Primary Care Provider Active Simone Warren MD Attending Provider Active Team Status: Active Member Role Status Dates Liya Peña MD Attending Provider Active Juanita Sharma DO Primary Care Provider Active Team Status: Active Member Role Status Dates Juanita Sharma DO Primary Care Provider Active Team Status: Inactive Member Role Status Dates Liya Peña MD Attending Provider Active Juanita Sharma DO Primary Care Provider Active Team Status: Active Member Role Status Dates [facility] Primary Care Provider Active Team Status: Inactive Member Role Status Dates [facility] Primary Care Provider Active Eric Curran DO Emergency Provider Active Lodging Facilities Attendant Relationship Specialty Start Date End Date Juanita Sharma Sr., DO PCP - General Family Medicine 04/21/17 Juanita Sharma SrAnabel, DO Family Medicine 02/15/17 Lodging Facilities Attendant Relationship Specialty Start Date End Date Juanita Sharma Sr., DO PCP - General Family Medicine 04/21/17 Juanita Sharma Sr., DO Family Medicine 02/15/17 Lodging Facilities Attendant Relationship Specialty Start Date End Date Juanita Sharma Sr., DO PCP - General Family Medicine 04/21/17 Juanita Sharma Sr., DO Family Medicine 02/15/17 Lodging Facilities Attendant Relationship Specialty Start Date End Date Aidan Montenegro MD [address] [place] [address] PCP - General Internal Medicine 01/06/24 Juanita Sharma Sr., DO Family Medicine 02/15/17 Lodging Facilities Attendant Relationship Specialty Start Date End Date Aidan Montenegro MD [address] [place] [address] PCP - General Internal Medicine 01/06/24 Juanita Sharma Sr., DO Family Medicine 02/15/17 Lodging Facilities Attendant Relationship Specialty Start Date End Date Juanita Sharma DO PCP - General 09/21/19 Lodging Facilities Attendant Relationship Specialty Start Date End Date Aidan Montenegro MD [address] [place] [address] PCP - General Internal Medicine 01/06/24 Juanita Sharma Sr., DO Family Medicine 02/15/17 Lodging Facilities Attendant Relationship Specialty Start Date End Date Aidan Montenegro MD [address] [place] [address] PCP - General Internal Medicine 01/06/24 Juanita Sharma Sr., DO Family Medicine 02/15/17 Lodging Facilities Attendant Relationship Specialty Start Date End Date Aidan Montenegro MD [address] [place] [address] PCP - General Internal Medicine 01/06/24 Juanita Sharma Sr., DO Family Medicine 02/15/17 Lodging Facilities Attendant Relationship Specialty Start Date End Date Aidan Montenegro MD [address] [place] [address] PCP - General Internal Medicine 01/06/24 Juanita Sharma Sr., DO Family Medicine 02/15/17 Lodging Facilities Attendant Relationship Specialty Start Date End Date Juanita Sharma DO [address] [place] [address] PCP - General Family Medicine 02/05/24 Lodging Facilities Attendant Relationship Specialty Start Date End Date Aidan Montenegro MD [address] [place] [address] PCP - General Internal Medicine 01/06/24 Juanita Sharma Sr., DO Family Medicine 02/15/17 Lodging Facilities Attendant Relationship Specialty Start Date End Date Aidan Montenegro MD [address] [place] [address] PCP - General Internal Medicine 01/06/24 Juanita Sharma Sr., DO Family Medicine 02/15/17 Lodging Facilities Attendant Relationship Specialty Start Date End Date Aidan Montenegro MD [address] [place] [address] PCP - General Internal Medicine 01/06/24 Juanita Sharma Sr., DO Family Medicine 02/15/17 Lodging Facilities Attendant Relationship Specialty Start Date End Date Adian Montenegro MD [address] [place] [address] PCP - General Internal Medicine 01/06/24 Juanita Sharma Sr., DO Family Medicine 02/15/17 Lodging Facilities Attendant Relationship Specialty Start Date End Date Aidan Montenegro MD [address] [place] [address] PCP - General Internal Medicine 01/06/24 Juanita Sharma Sr., DO Family Medicine 02/15/17 Lodging Facilities Attendant Relationship Specialty Start Date End Date Aidan Montenegro MD [address] [place] [address] PCP - General Internal Medicine 01/06/24 Juanita Sharma Sr., DO Family Medicine 02/15/17 Lodging Facilities Attendant Relationship Specialty Start Date End Date Aidan Montenegro MD [address] [place] [address] PCP - General Internal Medicine 01/06/24 Juanita Sharma Sr., DO Family Medicine 02/15/17 Lodging Facilities Attendant Relationship Specialty Start Date End Date Aidan Montenegro MD [address] [place] [address] PCP - General Internal Medicine 01/06/24 Juanita Sharma Sr., DO Family Medicine 02/15/17 Lodging Facilities Attendant Relationship Specialty Start Date End Date Aidan Montenegro MD [address] [place] [address] PCP - General Internal Medicine 01/06/24 Juanita Sharma Sr., DO Family Medicine 02/15/17 Lodging Facilities Attendant Relationship Specialty Start Date End Date Aidan Montenegro MD [address] [place] [address] PCP - General Internal Medicine 01/06/24 Juanita Sharma SrAnabel, DO Family Medicine 02/15/17 Lodging Facilities Attendant Relationship Specialty Start Date End Date Aidan Montenegro MD [address] [place] [address] PCP - General Internal Medicine 01/06/24 Juanita Sharma Sr., DO Family Medicine 02/15/17 Lodging Facilities Attendant Relationship Specialty Start Date End Date Aidan Montenegro MD [address] [place] [address] PCP - General Internal Medicine 01/06/24 Juanita Sharma Sr., DO Family Medicine 02/15/17 Lodging Facilities Attendant Relationship Specialty Start Date End Date Aidan Montenegro MD [address] [place] [address] PCP - General Internal Medicine 01/06/24 Juanita Sharma Sr., DO Family Medicine 02/15/17 Lodging Facilities Attendant Relationship Specialty Start Date End Date Aidan Montenegro MD [address] [place] [address] PCP - General Internal Medicine 01/06/24 Juanita Sharma Sr., DO Family Medicine 02/15/17 Lodging Facilities Attendant Relationship Specialty Start Date End Date Aidan Montenegro MD [address] [place] [address] PCP - General Internal Medicine 01/06/24 Juanita Sharma Sr., DO Family Medicine 02/15/17 Lodging Facilities Attendant Relationship Specialty Start Date End Date Aidan Montenegro MD [address] [place] [address] PCP - General Internal Medicine 01/06/24 Juanita Sharma Sr., DO Family Medicine 02/15/17 Lodging Facilities Attendant Relationship Specialty Start Date End Date Aidan Montenegro MD [address] [place] [address] PCP - General Internal Medicine 01/06/24 Juanita Sharma Sr., DO Family Medicine 02/15/17 04/05/24 Lodging Facilities Attendant Relationship Specialty Start Date End Date Aidan Montenegro MD [address] [place] [address] PCP - General Internal Medicine 01/06/24 Lodging Facilities Attendant Relationship Specialty Start Date End Date Aidan Montenegro MD [address] [place] [address] PCP - General Internal Medicine 01/06/24 Lodging Facilities Attendant Relationship Specialty Start Date End Date Adian Montenegro MD [address] [place] [address] PCP - General Internal Medicine 01/06/24 Lodging Facilities Attendant Relationship Specialty Start Date End Date Aidan Montenegro MD [address] [place] [address] PCP - General Internal Medicine 01/06/24 Lodging Facilities Attendant Relationship Specialty Start Date End Date Aidan Montenegro MD [address] [place] [address] PCP - General Internal Medicine 01/06/24 Lodging Facilities Attendant Relationship Specialty Start Date End Date Aidan Montenegro MD [address] [place] [address] PCP - General Internal Medicine 01/06/24 Lodging Facilities Attendant Relationship Specialty Start Date End Date Aidan Montenegro MD [address] [place] [address] PCP - General Internal Medicine 01/06/24 Lodging Facilities Attendant Relationship Specialty Start Date End Date Aidan Montenegro MD [address] [place] [address] PCP - General Internal Medicine 01/06/24 Lodging Facilities Attendant Relationship Specialty Start Date End Date Aidan Montenegro MD [address] [place] [address] PCP - General Internal Medicine 01/06/24 Lodging Facilities Attendant Relationship Specialty Start Date End Date Aidan Montenegro MD [address] [place] [address] PCP - General Internal Medicine 01/06/24 Juanita Sharma Sr., DO Family Medicine 02/15/17 04/05/24 Lodging Facilities Attendant Relationship Specialty Start Date End Date Aidan Montenegro MD [address] [place] [address] PCP - General Internal Medicine 01/06/24 Lodging Facilities Attendant Relationship Specialty Start Date End Date Aidan Montenegro MD [address] [place] [address] PCP - General Internal Medicine 01/06/24 Lodging Facilities Attendant Relationship Specialty Start Date End Date Aidan Montenegro MD [address] [place] [address] PCP - General Internal Medicine 01/06/24 Lodging Facilities Attendant Relationship Specialty Start Date End Date Aidan Montenegro MD [address] [place] [address] PCP - General Internal Medicine 01/06/24 Lodging Facilities Attendant Relationship Specialty Start Date End Date Aidan Montenegro MD [address] [place] [address] PCP - General Internal Medicine 01/06/24 Lodging Facilities Attendant Relationship Specialty Start Date End Date Aidan Montenegro MD [address] [facility] [place] [address] PCP - General Internal Medicine 01/06/24 Lodging Facilities Attendant Relationship Specialty Start Date End Date Aidan Montenegro MD [address] [facility] [place] [address] PCP - General Internal Medicine 01/06/24 Lodging Facilities Attendant Relationship Specialty Start Date End Date Aidan Montenegro MD [address] [facility] [place] [address] PCP - General Internal Medicine 01/06/24 Lodging Facilities Attendant Relationship Specialty Start Date End Date Aidan Montenegro MD [address] [facility] [place] [address] PCP - General Internal Medicine 01/06/24 Kaylene Das, CAFETERIA HELPER.HIGH PRESSURE OPERATOR [address] [place] [address] Auto Transport Driver Internal Medicine 08/28/24 Tracie Williamson, CAFETERIA HELPER.HIGH PRESSURE OPERATOR [address] [place] [address] Auto Transport Driver Internal Medicine 08/30/24 Lodging Facilities Attendant Relationship Specialty Start Date End Date Aidan Montenegro MD [address] [facility] [place] [address] PCP - General Internal Medicine 01/06/24 Kaylene Das, CAFETERIA HELPER.HIGH PRESSURE OPERATOR [address] [place] [address] Auto Transport Driver Internal Medicine 08/28/24 Tracei Williamson CAFETERIA HELPER.HIGH PRESSURE OPERATOR [address] [facility] [address] Auto Transport Driver Internal Medicine 08/30/24 Lodging Facilities Attendant Relationship Specialty Start Date End Date Aidan Montenegro MD [address] [place] [address] PCP - General Internal Medicine 01/06/24 Kaylene Das APRN.HIGH PRESSURE OPERATOR [address] [facility] [address] Auto Transport Driver Internal Medicine 08/28/24 Tracie Williamson CAFETERIA HELPER.HIGH PRESSURE OPERATOR [address] [facility] [address] Auto Transport Driver Internal Medicine 08/30/24 Lodging Facilities Attendant Relationship Specialty Start Date End Date Aidan Montenegro MD [address] [facility] [place] [address] PCP - General Internal Medicine 01/06/24 Kaylene Das APRN.HIGH PRESSURE OPERATOR [address] [facility] [address] Auto Transport Driver Internal Medicine 08/28/24 Tracie Williamson CAFETERIA HELPER.HIGH PRESSURE OPERATOR [address] [facility] [address] Auto Transport Driver Internal Medicine 08/30/24 Lodging Facilities Attendant Relationship Specialty Start Date End Date Aidan Montenegro MD [address] [facility] [place] [address] PCP - General Internal Medicine 01/06/24 Kaylene Das APRN.HIGH PRESSURE OPERATOR [address] [place] [address] Auto Transport Driver Internal Medicine 08/28/24 Tracie Williamson, CAFETERIA HELPER.HIGH PRESSURE OPERATOR [address] [place] [address] Auto Transport Driver Internal Medicine 08/30/24 Lodging Facilities Attendant Relationship Specialty Start Date End Date Aidan Montenegro MD [address] [facility] [place] [address] PCP - General Internal Medicine 01/06/24 Kaylene Das, CAFETERIA HELPER.HIGH PRESSURE OPERATOR [address] [place] [address] Auto Transport Driver Internal Medicine 08/28/24 Tracie Williamson, CAFETERIA HELPER.HIGH PRESSURE OPERATOR [address] [place] [address] Auto Transport Driver Internal Medicine 08/30/24 Lodging Facilities Attendant Relationship Specialty Start Date End Date Aidan Montenegro MD [address] [facility] [place] [address] PCP - General Internal Medicine 01/06/24 Kaylene Das, CAFETERIA HELPER.HIGH PRESSURE OPERATOR [address] [place] [address] Auto Transport Driver Internal Medicine 08/28/24 Tracie Williamson, CAFETERIA HELPER.HIGH PRESSURE OPERATOR [address] [place] [address] Auto Transport Driver Internal Medicine 08/30/24 Lodging Facilities Attendant Relationship Specialty Start Date End Date Aidan Montenegro MD [address] [facility] [place] [address] PCP - General Internal Medicine 01/06/24 Kaylene Das APRN.HIGH PRESSURE OPERATOR [address] [facility] [address] Auto Transport Driver Internal Medicine 08/28/24 Tracie Williamson CAFETERIA HELPER.HIGH PRESSURE OPERATOR [address] [facility] [address] Auto Transport Driver Internal Medicine 08/30/24 Lodging Facilities Attendant Relationship Specialty Start Date End Date Aidan Montenegro MD [address] [facility] [place] [address] PCP - General Internal Medicine 01/06/24 Kaylene Das CAFETERIA HELPER.HIGH PRESSURE OPERATOR [address] [facility] [address] Auto Transport Driver Internal Medicine 08/28/24 Tracie Williamson CAFETERIA HELPER.HIGH PRESSURE OPERATOR [address] [facility] [address] Auto Transport Driver Internal Medicine 08/30/24 Lodging Facilities Attendant Relationship Specialty Start Date End Date Aidan Montenegro MD [address] [facility] [place] [address] PCP - General Internal Medicine 01/06/24 Kaylene Das APRN.HIGH PRESSURE OPERATOR [address] [facility] [address] Auto Transport Driver Internal Medicine 08/28/24 Tracie Williamson CAFETERIA HELPER.HIGH PRESSURE OPERATOR [address] [facility] [facility] [address] Auto Transport Driver Internal Medicine 08/30/24 Lodging Facilities Attendant Relationship Specialty Start Date End Date Aidan Montenegro MD [address] [facility] [place] [address] PCP - General Internal Medicine 01/06/24 Kaylene Das APRN.HIGH PRESSURE OPERATOR [address] [facility] [address] Auto Transport Driver Internal Medicine 08/28/24 Tracie Williamson CAFETERIA HELPER.HIGH PRESSURE OPERATOR [address] [facility] [address] Auto Transport Driver Internal Medicine 08/30/24 Lodging Facilities Attendant Relationship Specialty Start Date End Date Aidan Montenegro MD [address] [facility] [place] [address] PCP - General Internal Medicine 01/06/24 Kaylene Das APRN.HIGH PRESSURE OPERATOR [address] [facility] [address] Auto Transport Driver Internal Medicine 08/28/24 Tracie Williamson CAFETERIA HELPER.HIGH PRESSURE OPERATOR [address] [facility] [address] Auto Transport Driver Internal Medicine 08/30/24 Lodging Facilities Attendant Relationship Specialty Start Date End Date Tracie Williamson CAFETERIA HELPER.HIGH PRESSURE OPERATOR [address] [facility] [address] PCP - General Internal Medicine 01/26/25 Lodging Facilities Attendant Relationship Specialty Start Date End Date Tracie Williamson CAFETERIA HELPER.HIGH PRESSURE OPERATOR [address] [place] [address] PCP - General Internal Medicine 01/26/25 Lodging Facilities Attendant Relationship Specialty Start Date End Date Aidan Montenegro MD PCP - General Internal Medicine 01/06/24 01/25/25 Tracie Williamson, CAFETERIA HELPER.HIGH PRESSURE OPERATOR [address] [place] [address] PCP - General Internal Medicine 01/26/25 Kaylnee Das, CAFETERIA HELPER.HIGH PRESSURE OPERATOR Auto Transport Driver Internal Medicine 08/28/24 01/25/25 Tracie Williamson, CAFETERIA HELPER.HIGH PRESSURE OPERATOR [address] [place] [address] Auto Transport Driver Internal Medicine 08/30/24 01/25/25 Lodging Facilities Attendant Relationship Specialty Start Date End Date Tracie Williamson, CAFETERIA HELPER.HIGH PRESSURE OPERATOR [address] [place] [address] PCP - General Internal Medicine 01/26/25 Lodging Facilities Attendant Relationship Specialty Start Date End Date Tracie Williamson, CAFETERIA HELPER.HIGH PRESSURE OPERATOR [address] [place] [address] PCP - General Internal Medicine 01/26/25 Lodging Facilities Attendant Relationship Specialty Start Date End Date Tracie Williamson, CAFETERIA HELPER.HIGH PRESSURE OPERATOR [address] [place] [address] PCP - General Internal Medicine 01/26/25 Lodging Facilities Attendant Relationship Specialty Start Date End Date Tracie Williamson, CAFETERIA HELPER.HIGH PRESSURE OPERATOR [address] [place] [address] PCP - General Internal Medicine 01/26/25 Goals (unrecognized section and content) Goals may be documented in a n alternate section Source Comments (unrecognize d section and content) In the event this informatio n is protected by the Federal Confidentiality of Alcohol and Drug Abuse Patient Records regulations: The Federal rules restrict any use of the information to criminally investigate or prosecute any alcohol or drug abuse patient.[facility] HealthIn the event this information is protected by the Federal Confidentiality of Alcohol and Drug Abuse Patient Records regulations: The Federal rules restrict any use of the information to criminally investigate or prosecute any alcohol or drug abuse patient.[facility] HealthIn the event this information is protected by the Federal Confidentiality of Alcohol and Drug Abuse Patient Records regulations: The Federal rules restrict any use of the information to criminally investigate or prosecute any alcohol or drug abuse patient.[facility] HealthIn the event this information is protected by the Federal Confidentiality of Alcohol and Drug Abuse Patient Records regulations: The Federal rules restrict any use of the information to criminally investigate or prosecute any alcohol or drug abuse patient.[facility] HealthIn the event this information is protected by the Federal Confidentiality of Alcohol and Drug Abuse Patient Records regulations: The Federal rules restrict any use of the information to criminally investigate or prosecute any alcohol or drug abuse patient.[facility] HealthIn the event this information is protected by the Federal Confidentiality of Alcohol and Drug Abuse Patient Records regulations: The Federal rules restrict any use of the information to criminally investigate or prosecute any alcohol or drug abuse patient.[facility] HealthIn the event this information is protected by the Federal Confidentiality of Alcohol and Drug Abuse Patient Records regulations: The Federal rules restrict any use of the information to criminally investigate or prosecute any alcohol or drug abuse patient.[facility] HealthIn the event this information is protected by the Federal Confidentiality of Alcohol and Drug Abuse Patient Records regulations: The Federal rules restrict any use of the information to criminally investigate or prosecute any alcohol or drug abuse patient.[facility] HealthIn the event this information is protected by the Federal Confidentiality of Alcohol and Drug Abuse Patient Records regulations: The Federal rules restrict any use of the information to criminally investigate or prosecute any alcohol or drug abuse patient.[facility] HealthIn the event this information is protected by the Federal Confidentiality of Alcohol and Drug Abuse Patient Records regulations: The Federal rules restrict any use of the information to criminally investigate or prosecute any alcohol or drug abuse patient.[facility] HealthIn the event this information is protected by the Federal Confidentiality of Alcohol and Drug Abuse Patient Records regulations: The Federal rules restrict any use of the information to criminally investigate or prosecute any alcohol or drug abuse patient.[facility] HealthIn the event this information is protected by the Federal Confidentiality of Alcohol and Drug Abuse Patient Records regulations: The Federal rules restrict any use of the information to criminally investigate or prosecute any alcohol or drug abuse patient.[facility] HealthIn the event this information is protected by the Federal Confidentiality of Alcohol and Drug Abuse Patient Records regulations: The Federal rules restrict any use of the information to criminally investigate or prosecute any alcohol or drug abuse patient.[facility] HealthIn the event this information is protected by the Federal Confidentiality of Alcohol and Drug Abuse Patient Records regulations: The Federal rules restrict any use of the information to criminally investigate or prosecute any alcohol or drug abuse patient.[facility] HealthIn the event this information is protected by the Federal Confidentiality of Alcohol and Drug Abuse Patient Records regulations: The Federal rules restrict any use of the information to criminally investigate or prosecute any alcohol or drug abuse patient.[facility] HealthIn the event this information is protected by the Federal Confidentiality of Alcohol and Drug Abuse Patient Records regulations: The Federal rules restrict any use of the information to criminally investigate or prosecute any alcohol or drug abuse patient.[facility] HealthIn the event this information is protected by the Federal Confidentiality of Alcohol and Drug Abuse Patient Records regulations: The Federal rules restrict any use of the information to criminally investigate or prosecute any alcohol or drug abuse patient.[facility] HealthIn the event this information is protected by the Federal Confidentiality of Alcohol and Drug Abuse Patient Records regulations: The Federal rules restrict any use of the information to criminally investigate or prosecute any alcohol or drug abuse patient.[facility] HealthIn the event this information is protected by the Federal Confidentiality of Alcohol and Drug Abuse Patient Records regulations: The Federal rules restrict any use of the information to criminally investigate or prosecute any alcohol or drug abuse patient.[facility] HealthIn the event this information is protected by the Federal Confidentiality of Alcohol and Drug Abuse Patient Records regulations: The Federal rules restrict any use of the information to criminally investigate or prosecute any alcohol or drug abuse patient.[facility] HealthIn the event this information is protected by the Federal Confidentiality of Alcohol and Drug Abuse Patient Records regulations: The Federal rules restrict any use of the information to criminally investigate or prosecute any alcohol or drug abuse patient.[facility] HealthIn the event this information is protected by the Federal Confidentiality of Alcohol and Drug Abuse Patient Records regulations: The Federal rules restrict any use of the information to criminally investigate or prosecute any alcohol or drug abuse patient.[facility] HealthIn the event this information is protected by the Federal Confidentiality of Alcohol and Drug Abuse Patient Records regulations: The Federal rules restrict any use of the information to criminally investigate or prosecute any alcohol or drug abuse patient.[facility] HealthIn the event this information is protected by the Federal Confidentiality of Alcohol and Drug Abuse Patient Records regulations: The Federal rules restrict any use of the information to criminally investigate or prosecute any alcohol or drug abuse patient.[facility] HealthIn the event this information is protected by the Federal Confidentiality of Alcohol and Drug Abuse Patient Records regulations: The Federal rules restrict any use of the information to criminally investigate or prosecute any alcohol or drug abuse patient.[facility] HealthIn the event this information is protected by the Federal Confidentiality of Alcohol and Drug Abuse Patient Records regulations: The Federal rules restrict any use of the information to criminally investigate or prosecute any alcohol or drug abuse patient.[facility] HealthIn the event this information is protected by the Federal Confidentiality of Alcohol and Drug Abuse Patient Records regulations: The Federal rules restrict any use of the information to criminally investigate or prosecute any alcohol or drug abuse patient.[facility] HealthIn the event this information is protected by the Federal Confidentiality of Alcohol and Drug Abuse Patient Records regulations: The Federal rules restrict any use of the information to criminally investigate or prosecute any alcohol or drug abuse patient.[facility] HealthIn the event this information is protected by the Federal Confidentiality of Alcohol and Drug Abuse Patient Records regulations: The Federal rules restrict any use of the information to criminally investigate or prosecute any alcohol or drug abuse patient.[facility] HealthIn the event this information is protected by the Federal Confidentiality of Alcohol and Drug Abuse Patient Records regulations: The Federal rules restrict any use of the information to criminally investigate or prosecute any alcohol or drug abuse patient.Prem[facility] HealthIn the event this information is protected by the Federal Confidentiality of Alcohol and Drug Abuse Patient Records regulations: The Federal rules restrict any use of the information to criminally investigate or prosecute any alcohol or drug abuse patient.[facility] the event this information is protected by the Federal Confidentiality of Alcohol and Drug Abuse Patient Records regulations: The Federal rules restrict any use of the information to criminally investigate or prosecute any alcohol or drug abuse patient.[facility] HealthIn the event this information is protected by the Federal Confidentiality of Alcohol and Drug Abuse Patient Records regulations: The Federal rules restrict any use of the information to criminally investigate or prosecute any alcohol or drug abuse patient.[facility] HealthIn the event this information is protected by the Federal Confidentiality of Alcohol and Drug Abuse Patient Records regulations: The Federal rules restrict any use of the information to criminally investigate or prosecute any alcohol or drug abuse patient.[facility] HealthIn the event this information is protected by the Federal Confidentiality of Alcohol and Drug Abuse Patient Records regulations: The Federal rules restrict any use of the information to criminally investigate or prosecute any alcohol or drug abuse patient.[facility] HealthIn the event this information is protected by the Federal Confidentiality of Alcohol and Drug Abuse Patient Records regulations: The Federal rules restrict any use of the information to criminally investigate or prosecute any alcohol or drug abuse patient.[facility] HealthIn the event this information is protected by the Federal Confidentiality of Alcohol and Drug Abuse Patient Records regulations: The Federal rules restrict any use of the information to criminally investigate or prosecute any alcohol or drug abuse patient.[facility] HealthIn the event this information is protected by the Federal Confidentiality of Alcohol and Drug Abuse Patient Records regulations: The Federal rules restrict any use of the information to criminally investigate or prosecute any alcohol or drug abuse patient.[facility] HealthIn the event this information is protected by the Federal Confidentiality of Alcohol and Drug Abuse Patient Records regulations: The Federal rules restrict any use of the information to criminally investigate or prosecute any alcohol or drug abuse patient.[facility] HealthIn the event this information is protected by the Federal Confidentiality of Alcohol and Drug Abuse Patient Records regulations: The Federal rules restrict any use of the information to criminally investigate or prosecute any alcohol or drug abuse patient.[facility] HealthIn the event this information is protected by the Federal Confidentiality of Alcohol and Drug Abuse Patient Records regulations: The Federal rules restrict any use of the information to criminally investigate or prosecute any alcohol or drug abuse patient.[facility] HealthIn the event this information is protected by the Federal Confidentiality of Alcohol and Drug Abuse Patient Records regulations: The Federal rules restrict any use of the information to criminally investigate or prosecute any alcohol or drug abuse patient.[facility] HealthIn the event this information is protected by the Federal Confidentiality of Alcohol and Drug Abuse Patient Records regulations: The Federal rules restrict any use of the information to criminally investigate or prosecute any alcohol or drug abuse patient.[facility] HealthIn the event this information is protected by the Federal Confidentiality of Alcohol and Drug Abuse Patient Records regulations: The Federal rules restrict any use of the information to criminally investigate or prosecute any alcohol or drug abuse patient.[facility] HealthIn the event this information is protected by the Federal Confidentiality of Alcohol and Drug Abuse Patient Records regulations: The Federal rules restrict any use of the information to criminally investigate or prosecute any alcohol or drug abuse patient.[facility] HealthIn the event this information is protected by the Federal Confidentiality of Alcohol and Drug Abuse Patient Records regulations: The Federal rules restrict any use of the information to criminally investigate or prosecute any alcohol or drug abuse patient.[facility] HealthIn the event this information is protected by the Federal Confidentiality of Alcohol and Drug Abuse Patient Records regulations: The Federal rules restrict any use of the information to criminally investigate or prosecute any alcohol or drug abuse patient.[facility] HealthIn the event this information is protected by the Federal Confidentiality of Alcohol and Drug Abuse Patient Records regulations: The Federal rules restrict any use of the information to criminally investigate or prosecute any alcohol or drug abuse patient.[facility] HealthIn the event this information is protected by the Federal Confidentiality of Alcohol and Drug Abuse Patient Records regulations: The Federal rules restrict any use of the information to criminally investigate or prosecute any alcohol or drug abuse patient.[facility] HealthIn the event this information is protected by the Federal Confidentiality of Alcohol and Drug Abuse Patient Records regulations: The Federal rules restrict any use of the information to criminally investigate or prosecute any alcohol or drug abuse patient.[facility] HealthIn the event this information is protected by the Federal Confidentiality of Alcohol and Drug Abuse Patient Records regulations: The Federal rules restrict any use of the information to criminally investigate or prosecute any alcohol or drug abuse patient.Prem[facility] HealthIn the event this information is protected by the Federal Confidentiality of Alcohol and Drug Abuse Patient Records regulations: The Federal rules restrict any use of the information to criminally investigate or prosecute any alcohol or drug abuse patient.[facility] HealthIn the event this information is protected by the Federal Confidentiality of Alcohol and Drug Abuse Patient Records regulations: The Federal rules restrict any use of the information to criminally investigate or prosecute any alcohol or drug abuse patient.[facility] HealthIn the event this information is protected by the Federal Confidentiality of Alcohol and Drug Abuse Patient Records regulations: The Federal rules restrict any use of the information to criminally investigate or prosecute any alcohol or drug abuse patient.[facility] HealthIn the event this information is protected by the Federal Confidentiality of Alcohol and Drug Abuse Patient Records regulations: The Federal rules restrict any use of the information to criminally investigate or prosecute any alcohol or drug abuse patient.Prem[facility] HealthIn the event this information is protected by the Federal Confidentiality of Alcohol and Drug Abuse Patient Records regulations: The Federal rules restrict any use of the information to criminally investigate or prosecute any alcohol or drug abuse patient.[facility] HealthIn the event this information is protected by the Federal Confidentiality of Alcohol and Drug Abuse Patient Records regulations: The Federal rules restrict any use of the information to criminally investigate or prosecute any alcohol or drug abuse patient.Prem[facility] HealthIn the event this information is protected by the Federal Confidentiality of Alcohol and Drug Abuse Patient Records regulations: The Federal rules restrict any use of the information to criminally investigate or prosecute any alcohol or drug abuse patient.Prem[facility] HealthIn the event this information is protected by the Federal Confidentiality of Alcohol and Drug Abuse Patient Records regulations: The Federal rules restrict any use of the information to criminally investigate or prosecute any alcohol or drug abuse patient.[facility] HealthIn the event this information is protected by the Federal Confidentiality of Alcohol and Drug Abuse Patient Records regulations: The Federal rules restrict any use of the information to criminally investigate or prosecute any alcohol or drug abuse patient.[facility] HealthIn the event this information is protected by the Federal Confidentiality of Alcohol and Drug Abuse Patient Records regulations: The Federal rules restrict any use of the information to criminally investigate or prosecute any alcohol or drug abuse patient.[facility] HealthIn the event this information is protected by the Federal Confidentiality of Alcohol and Drug Abuse Patient Records regulations: The Federal rules restrict any use of the information to criminally investigate or prosecute any alcohol or drug abuse patient.[facility] HealthIn the event this information is protected by the Federal Confidentiality of Alcohol and Drug Abuse Patient Records regulations: The Federal rules restrict any use of the information to criminally investigate or prosecute any alcohol or drug abuse patient.[facility] HealthIn the event this information is protected by the Federal Confidentiality of Alcohol and Drug Abuse Patient Records regulations: The Federal rules restrict any use of the information to criminally investigate or prosecute any alcohol or drug abuse patient.Prem[facility] HealthIn the event this information is protected by the Federal Confidentiality of Alcohol and Drug Abuse Patient Records regulations: The Federal rules restrict any use of the information to criminally investigate or prosecute any alcohol or drug abuse patient.[facility] HealthIn the event this information is protected by the Federal Confidentiality of Alcohol and Drug Abuse Patient Records regulations: The Federal rules restrict any use of the information to criminally investigate or prosecute any alcohol or drug abuse patient.[facility] HealthIn the event this information is protected by the Federal Confidentiality of Alcohol and Drug Abuse Patient Records regulations: The Federal rules restrict any use of the information to criminally investigate or prosecute any alcohol or drug abuse patient.[facility] HealthIn the event this information is protected by the Federal Confidentiality of Alcohol and Drug Abuse Patient Records regulations: The Federal rules restrict any use of the information to criminally investigate or prosecute any alcohol or drug abuse patient.[facility] HealthIn the event this information is protected by the Federal Confidentiality of Alcohol and Drug Abuse Patient Records regulations: The Federal rules restrict any use of the information to criminally investigate or prosecute any alcohol or drug abuse patient.[facility] HealthIn the event this information is protected by the Federal Confidentiality of Alcohol and Drug Abuse Patient Records regulations: The Federal rules restrict any use of the information to criminally investigate or prosecute any alcohol or drug abuse patient.[facility] HealthIn the event this information is protected by the Federal Confidentiality of Alcohol and Drug Abuse Patient Records regulations: The Federal rules restrict any use of the information to criminally investigate or prosecute any alcohol or drug abuse patient.[facility] HealthIn the event this information is protected by the Federal Confidentiality of Alcohol and Drug Abuse Patient Records regulations: The Federal rules restrict any use of the information to criminally investigate or prosecute any alcohol or drug abuse patient.[facility] Scheduled Active and Recently Administ ered Medications [...] 1019 (Given - Provid er: Maribel Esposito, CAFETERIA HELPER-DIESEL MECHANIC CONSTRUCTION) lidocaine (Xylocaine) 10 mg/mL (1 %) injection [...] 1133, For 2 doses, Recovery (only) HYDROcodone-acetaminophen (O'Brien) 5-325 mg per tablet 1 tablet 1 [...] BE BASED ON THE PRIMARY CLINICAL RECORDS. [facility] [employer] [facility]. provides no warranty or guarantee of the accuracy or completeness of information in this document.
== END 2025-06-05 19:11 | disposition home or self-care (01) ==
PROVIDERS: Emergency Provider Emergency Medicine
DX: N39.0 Urinary tract infection, site not specified (principal); Z87.440 Personal history of urinary (tract) infections; N31.9 Neuromuscular dysfunction of bladder, unspecified
CPT/HCPCS: 81001; 84703; 87086; 87088; 87186; 99285

== ENCOUNTER 2025-08-16 15:53 | Emergency (ER) | payer OTHER, SELFPAY ==
--- OUTSIDE RECORDS SUMMARY | 2025-08-07 07:07 | XMS_ITS | Encounter Summary ---
Author Organization [facility] Address [address] [place] [address] Phone Care Team Providers Care Maintenance Of Way Clerk Name Role Phone Deshawn Ramirez DO Primary Care Provider [phone] Reason for Visit * Auth/CertSpecialtyDiagnoses / ProceduresReferred By ContactReferred To Contact Diagnoses Urge incontinence Urge incontinence [N39.41] Procedures [place] CYSTOURETHROSCOPY INJ CHEMODENERVATION BLADDER CYSTOSCOPY, WITH BOTULINUM TOXIN INJECTION Dominick Naidu MD [address] [place] [address] [address] [place] [address] Phone: tel: fax: [facility] [place] [id number] [place] [phone] fax: Referral IDStatusReasonStart DateExpiration DateVisits RequestedVisits [id number] Encounter Details DateTypeDepartmentCare Team (Latest Contact Info)Dcmntchogff94/17/2025 7:07 AM EST - 08/07/2025 11:59 AM ESTHospital Encounter [facility] [place] [id number] [place] [phone] Dominick Naidu MD [address] [place] [address] [address] [place] [phone] Urge incontinence (Primary Dx) Discharge Disposition: Home Social History Tobacco UseTypesPacks/DayYears UsedDateSmoking Tobacco: FormerCigarettes Smokeless Tobacco: NeverAlcohol UseStandard Drinks/WeekCommentsNot Currently0 (1 standard drink = 0.6 oz pure alcohol)sociallyCommentsNoSex and Gender InformationValueDate RecordedSex Assigned at BirthNot on fileLegal SexFemale 08/16/2022 12:06 PM ESTGender IdentityNot on fileSexual OrientationStraight 08/07/2025 8:14 AM ESTdocumented as of this encounter Last Filed Vital Signs Vital SignReadingTime TakenCommentsBlood Xzdqdtsq867/6408/07/2025 11:49 AM EST Gpzmg610208/07/2025 11:49 AM OVOPokgawbqnta03.3 ??C (97.3 ??F)08/07/2025 11:49 AM ESTRespiratory Cckl541810/07/2024 11:49 AM ESTOxygen Brfmqlmdss32%08/07/2025 11:49 AM ESTInhaled Oxygen Concentration--Edtvbh273 kg (290 lb)08/07/2025 8:19 AM EST Rpdoxg989.2 cm (5' 7 )08/07/2025 8:19 AM ESTBody Mass Index45.42110/07/2024 8:19 AM ESTdocumented in this encounter Functional Status documented as of this encounter Discharge Instructions * Discharge Instructions* Diana Crocker MD - 08/07/2025 8:29 AM EST DEPARTMENT OF UROLOGY DISCHARGE INSTRUCTIONS CYSTOSCOPY Outpatient Surgery Karlene Joel Negro Call [phone] during regular daytime business hours (8:00 am - 5:00 pm) and after 5:00 pm ask for the Urology resident with any questions or concerns. If it is a life-threatening situation, proceed to the nearest emergency department. Thank you for the opportunity to care for you today. Your health and healing are very important to us. We hope we made you feel as comfortable as possible and are committed to your recovery and continued well-being. The following is a brief overview of your cystoscopy procedure today. Some of the information contained on this summary may be confidential. This information should be kept in your records and shouldbe shared with your regular doctor. Physicians: Dr. Naidu Procedure performed: cystoscopy + bladder botox What to Expect During your Recovery and Home Care Anesthesia Side Effects You received anesthesia today. You may feel sleepy, tired, or have a sore throat. You may also feel drowsiness, dizziness, or inability to think clearly. For your safety, do not drive, drink alcoholic beverages, take any unprescribed medication or make any important decisions for 24 hours. A responsible adult should be with you for 24 hours. Activity and Recovery No heavy lifting today. Rest for the next 24 hours. Pain Control Unfortunately, you may experience pain after your procedure. Frequency and urgency to urinate and mild discomfort are expected. Adequate pain management can include alternative measures to help ease your pain and that can include over the counter Tylenol or ibuprofen which can be taken as prescribed as needed for breakthrough pain. Do not take more than 4,000mg of Tylenol in a 24-hour period. Nausea/Vomiting Clear liquids are best tolerated at first. Start slow, advance your diet as tolerated to normal foods. Avoid spicy, greasy, heavy foods at first. Also, you may feel nauseous or like you need to vomitif you take any type of medication on an empty stomach. Call your physician if you are unable to eat or drink and have persistent vomiting. Signs of Bleeding You are going to have some blood in your urine. Your urine will be light pink to yellow. If urine becomes thick dark molly red, has large clots or you are unable to urinate, please notify your physician. Treatment/wound care: Keep area(s) clean and dry. It is okay to shower 24 hours after time of surgery. Signs of Infection Signs of infection can include fever, drainage(green/yellow), chills, burning sensation with passing of urine, or severe abdominal pain. If you see any of these occur, please contact your doctor's office at [phone]. Any fever higher than 100.4, especially if associated with an ill feeling, abdominal pain, chills, or nausea should be reported to your surgeon. Assist in bowel movements/urination Increase fiber in diet Increase water (6 to 8 glasses) Increase walking Urination should occur within 6 hours of anesthesia If you have tried these methods and your bladder still feels full and you cannot use the bathroom, please go to your nearest Emergency room/contact your physician. Additional Instructions: Increase water intake for the next 24 hours to help flush out our urinary system. documented in this encounter Medications at Time of Discharge MedicationSigDispense QuantityRefillsLast FilledStart DateEnd Date acetaminophen (Tylenol) 500 mg tablet Indications:Post-operative painTake 2 tablets (1,000 mg) by mouth every 6 hours if needed for mild pain (1 - 3). 30 tablet 01/18/2024 ibuprofen 200 mg tablet Take 3 tablets (600 mg) by mouth once daily as needed.03/09/2023 phenazopyridine (Pyridium) 200 mg tablet Indications:Post-operative painTake 1 tablet (200 mg) by mouth 3 times a day as needed for bladder spasms. 10 tablet 01/18/2024 pregabalin (Lyrica) 50 mg capsule Take 1 capsule (50 mg) by mouth 3 times a day.06/10/2022 tiZANidine (Zanaflex) 4 mg tablet Take 1 tablet (4 mg) by mouth once daily as needed.11/09/2023 traMADol (Ultram) 50 mg tablet Take 1 tablet (50 mg) by mouth 3 times a day.06/10/2022 nitrofurantoin, macrocrystal-monohydrate, (Macrobid) 100 mg capsule Indications:Urinary tract infection without hematuria, site unspecifiedTake 1 capsule (100 mg) by mouth 2 times a day for 5 days. 10 capsule nitrofurantoin, macrocrystal-monohydrate, (Macrobid) 100 mg capsule Indications:Urge incontinenceTake 1 capsule (100 mg) by mouth 2 times a day for 3 days. 6 capsule 08/07/2025 11:20 AM ESTdocumented as of this encounter H&P Notes * Diana Crocker MD - 08/07/2025 7:55 AM EST H&P reviewed. The patient was examined and there are no changes to the H&P. - Signed consent: cystoscopy with Botox (200u) Diana Rowe MD Urogynecology and Reproductive Pelvic Surgery Fellow Source Note - Dominick Naidu MD - 07/14/2025 12:02 PM EDT History Of Present Illness Karlene Tom is a 44 y.o. female presenting with Neurogenic bladder maintained on intermittentcatheterization cystoscopy and Botox. Following is an extract from my [facility] urology office note. 44-year-old female patient with history of neurogenic bladder secondary to spina bifida. Patient has had multiple cystoscopies and Botox injection. The last injection was on January 13, 2024With 200 units of Botox. Patient is having recurrent symptoms. She wants to proceed with repeat Botox injectionwe will do at [facility] the next few weeks. Note that the patient has latex allergy. Past Medical History She has a past medical history of Chronic back pain, Chronic headaches, Chronic pain disorder, Myelomeningocele (Multi), Peripheral neuropathy, Spina bifida (Multi), Tethered spinal cord (Multi), andUrge incontinence. Surgical History She has a past surgical history that includes Back surgery (04/12/2014); Other surgical history (04/12/2014); Eye surgery (04/12/2014); Cervical biopsy w/ loop electrode excision (04/12/2014); and Spine surgery. Social History She reports that she has been smoking cigarettes. She has never used smokeless tobacco. She reportsthat she does not currently use alcohol. She reports current drug use. Drug: Marijuana. Family History Family History[1] Allergies Latex, Ciprofloxacin, and Silvadene [silver sulfadiazine] Review of Systems Physical Exam Last Recorded Vitals There were no vitals taken for this visit. Relevant Results No results found for this or any previous visit (from the past 24 hours). Imaging No results found. Cardiology, Vascular, and Other Imaging No other imaging results found for the past 7 days Assessment/Plan 44-year-old female patient with history of neurogenic bladder secondary to spina bifida. Patient has had multiple cystoscopies and Botox injection. The last injection was on January 13, 2024With 200 units of Botox. Patient is having recurrent symptoms. She wants to proceed with repeat Botox injectionwe will do at [facility] in the next few weeks. Note that the patient has latex allergy. Dominick Naidu MD [1] No family history on file. documented in this encounter Miscellaneous Notes * Op Note - Diana Crocker MD - 08/07/2025 10:44 AM EST CYSTOSCOPY, WITH BOTULINUM TOXIN INJECTION Operative Note Date: 08/07/2025 OR Location: [facility] OR Name: Karlene Tom, : 1980, Age: 44 y.o., , Sex: female Diagnosis Pre-op Diagnosis * Urge incontinence [N39.41] Post-op Diagnosis * Urge incontinence [N39.41] Procedures CYSTOSCOPY, WITH BOTULINUM TOXIN INJECTION [address] - [place] CYSTOURETHROSCOPY INJ CHEMODENERVATION BLADDER Surgeons * Dominick Naidu - Primary Resident/Fellow/Other Life Support Technician: Savanah Mera Staff: Mandrel Cleaner: Scrub Person: Anesthesia Staff: No anesthesia staff entered. Procedure Summary Anesthesia: Monitor Anesthesia Care ASA: ASA status not filed in the log. Estimated Blood Loss: 1mL Intra-op Medications: Administrations occurring from 0755 to 0850 on 08/07/25: * No intraprocedure medications in log * Anesthesia Record Intraprocedure I/O Totals None Specimen: No specimens collected Drains and/or Catheters: * None in log * Findings: Bladder with trabeculations throughout, small diverticula at posterior bladder dome Indications: Karlene Tom is an 44 y.o. female who is having surgery for [...] including bilateral sequential compression devices Procedure Details: The patient was interviewed in the preop [...] time-out was performed. Preoperative antibiotics were given. (Ancef) A solution of 200 U of Botox in 10 mL of normal saline was created. The cystoscope was then inserted into the bladder and the urine was emptied. The bladder was then filled with approximately 250 mL of normal saline, and the entire 200 U of the botox solution were injected into the bladder muscle under direct visualization. The bladder was then emptied. The cystoscope was removed. The patient was then awakened from anesthesia, having tolerated procedure well, and was taken to the recovery room in stable condition. All sponge, needle, and instrument counts were correct at the end the case. Dr. Naidu was present for all critical portions of the procedure. Diana Rowe MD Urogynecology and Reproductive Pelvic Surgery Fellow Evidence of Infection: No Complications: None; patient tolerated the procedure well. Disposition: PACU - hemodynamically stable. Condition: stable Attending Attestation: Dominick Naidu Cosigned by Dominick Naidu MD at 08/07/2025 11:17 AM EST Associated attestation - Dominick Naidu MD - 08/07/2025 11:17 AM EST I was present for the entirety of the procedure(s). documented in this encounter Plan of Treatment Not on file documented as of this encounter Procedures Procedure NamePriorityDate/TimeAssociated DiagnosisCommentsPULSE OXIMETRY, RGFMFDBYEPQliwehi02/17/2025 11:07 AM ESTPR CYSTOURETHROSCOPY INJ CHEMODENERVATION IKAYHVK2408/07/2025 10:27 AM EST Urge incontinence HCG, URINE, XMKSIFCVIUZYUCP15/17/2025 7:41 AM EST PULSE OXIMETRY, DFYTUluwwtj73/17/2025 7:40 AM ESTdocumented in this encounter Results * hCG, Urine, Qualitative (08/07/2025 7:41 AM EST)ComponentValueRef RangeTest MethodAnalysis TimePerformed AtPathologist SignatureHCG, UrineNEGATIVENEGATIVE 08/07/2025 7:54 AM ESTSWYOMING MEDICAL CENTER LABSpecimen (Source)Anatomical Location / LateralityCollection Method / VolumeCollection TimeReceived Time UrineUrine specimen / Fwarvzi7008/07/2025 7:41 AM EST08/07/2025 7:46 AM EST Narrative Authorizing ProviderResult TypeResult StatusDominick TORRES URINE ORDERABLESFinal ResultPerforming OrganizationAddressCity/State/ZIP CodePhone Number [facility] [address] [place] [address] documented in this encounter Visit Diagnoses Diagnosis Urge incontinence- Primary Urge incontinence documented in this encounter Admitting Diagnoses Diagnosis Urge incontinence documented in this encounter Administered Medications Medication OrderMAR ActionAction DateDoseRateSite albuterol 2.5 mg /3 mL (0.083 %) nebulizer solution 2.5 mg 2.5 mg, nebulization, Once as needed, wheezing, Starting on Thu08/07/25 at 1107, For 1 dose, Recovery (only) diphenhydrAMINE (BENADryl) injection 12.5 mg 12.5 mg, intravenous, Once as needed, itching, allergic reaction, Starting on Thu08/07/25 at 1107,For 1 dose, Recovery (only) hydrALAZINE (Apresoline) injection 5 mg 5 mg, intravenous, Administer over 2 Minutes, Every 30 min PRN, systolic blood pressure greater than 180 mmHg and heart rate less than 60 BPM, Starting on Thu08/07/25 at 1107, For 2 doses, Recovery (only) HYDROmorphone (Dilaudid) injection 0.5 mg 0.5 mg, intravenous, Every 5 min PRN, pain ??? severe (7-10), first line, Starting on Thu08/07/25 at 1107, Recovery (only), Max total of 4 mg regardless of dose. HYDROmorphone PF (Dilaudid) injection 0.2 mg 0.2 mg, intravenous, Every 5 min PRN, pain ??? moderate (4-6), first line, Starting on Thu08/07/25at 1107, Recovery (only), Max total of 4 mg regardless of dose. labetaloL (Normodyne,Trandate) injection 5 mg 5 mg, intravenous, Administer over 1 Minutes, Once as needed, systolic blood pressure greater than 180 mmHg, dystolic blood pressure greater than 100 mmHg and heart rate greater than 60 BPM, Startingon Thu08/07/25 at 1107, For 1 dose, Recovery (only) metoclopramide (Reglan) injection 10 mg 10 mg, intravenous, Once as needed, nausea/vomiting, second line, Starting on Thu08/07/25 at 1107,For 1 dose, Recovery (only) ondansetron (Zofran) injection 4 mg 4 mg, intravenous, Once as needed, nausea/vomiting, first line, Starting on Thu08/07/25 at 1107, For 1 dose, Recovery (only), When administering via IV Push, administer over 3-5 minutes. oxyCODONE (Roxicodone) immediate release tablet 5 mg 5 mg, oral, Every 4 hours PRN, pain ??? mild (1-3), first line, Starting on Thu08/07/25 at 1107, Recovery (only), When able to take oral medications., If ordered PRN for pain, nurse is permitted to administer this medication for higher pain scores based on patient preference? Yes oxyCODONE-acetaminophen (Percocet) 5-325 mg per tablet 1 tablet 1 tablet, oral, Every 4 hours PRN, pain ??? moderate (4-6), second line, Starting on Thu08/07/25 at 1107, Recovery (only), When able to take oral medications., If ordered PRN for pain, nurse is permitted to administer this medication for higher pain scores based on patient preference? Yes oxygen (O2) therapy inhalation, Continuous - O2/gases, oxygen, Starting on Thu08/07/25 at 1107, Recovery (only), Device: Nasal Cannula, Rate in liters per minute: Other, Custom Value: 1-6 LPM, Keep O2 Sat Above: 92% documented in this encounter Active and Recently Administered Medications Times are shown in EST.Medication Order// acetaminophen (Tylenol) tablet 975 mg 975 mg, oral, Once, On Thu08/07/25 at 1130, For 1 dose, Recovery (only), If ordered PRN for pain, nurse is permitted to administer this medication for higher pain scores based on patient preference?Yes * 1130 (Canceled Entry - Provider: Automatic Discharge Provider - Comment: Automatically canceled at discontinue of medication order) ceFAZolin (Ancef) 2 g in dextrose (iso) IV 100 mL (COMPLETED) 2 g, intravenous, at 200 mL/hr, Administer over 30 Minutes, Once, On Thu08/07/25 at 0800, For 1 dose, Preprocedure, Administer within 60 minutes prior to incision and complete at least 15 minutes prior to incision. premix bag, Dosing of this medication varies based on severity of illness. Does this patient have sepsis or concern for sepsis (probable or documented infection plus systemic manifestations of infection)? No, Suspected Indication (Select all that apply): Surgical Prophylaxis, Indications: Surgical Prophylaxis * 1033 (Given - Provider: Uzair Benoit [facility]) famotidine PF (Pepcid) injection 20 mg 20 mg, intravenous, Administer over 2 Minutes, Once, On Thu08/07/25 at 1130, For 1 dose, Recovery (only) * 1130 (Canceled Entry - Provider: Automatic Discharge Provider - Comment: Automatically canceled at discontinue of medication order) lidocaine (Xylocaine) 10 mg/mL (1 %) injection 0.1 mL 0.1 mL, subcutaneous, Once, On Thu08/07/25 at 1130, For 1 dose, Recovery (only), To be used for IVinsertion ONLY * 1130 (Canceled Entry - Provider: Automatic Discharge Provider - Comment: Automatically canceled at discontinue of medication order) onabotulinumtoxinA (Botox) injection 200 Units (COMPLETED) 200 Units, intramuscular, Once, On Thu08/07/25 at 1100, For 1 dose * 1044 (Given - Provider: Diana Crocker MD) * 1100 (Due) Medication Order/ albuterol 2.5 mg /3 mL (0.083 %) nebulizer solution 2.5 mg 2.5 mg, nebulization, Once as needed, wheezing, Starting on Thu08/07/25 at 1107, For 1 dose, Recovery (only) diphenhydrAMINE (BENADryl) injection 12.5 mg 12.5 mg, intravenous, Once as needed, itching, allergic reaction, Starting on Thu08/07/25 at 1107,For 1 dose, Recovery (only) hydrALAZINE (Apresoline) injection 5 mg 5 mg, intravenous, Administer over 2 Minutes, Every 30 min PRN, systolic blood pressure greater than 180 mmHg and heart rate less than 60 BPM, Starting on Thu08/07/25 at 1107, For 2 doses, Recovery (only) HYDROmorphone (Dilaudid) injection 0.5 mg 0.5 mg, intravenous, Every 5 min PRN, pain ??? severe (7-10), first line, Starting on Thu08/07/25 at 1107, Recovery (only), Max total of 4 mg regardless of dose. HYDROmorphone PF (Dilaudid) injection 0.2 mg 0.2 mg, intravenous, Every 5 min PRN, pain ??? moderate (4-6), first line, Starting on Thu08/07/25at 1107, Recovery (only), Max total of 4 mg regardless of dose. labetaloL (Normodyne,Trandate) injection 5 mg 5 mg, intravenous, Administer over 1 Minutes, Once as needed, systolic blood pressure greater than 180 mmHg, dystolic blood pressure greater than 100 mmHg and heart rate greater than 60 BPM, Startingon Thu08/07/25 at 1107, For 1 dose, Recovery (only) metoclopramide (Reglan) injection 10 mg 10 mg, intravenous, Once as needed, nausea/vomiting, second line, Starting on Thu08/07/25 at 1107,For 1 dose, Recovery (only) ondansetron (Zofran) injection 4 mg 4 mg, intravenous, Once as needed, nausea/vomiting, first line, Starting on Thu08/07/25 at 1107, For 1 dose, Recovery (only), When administering via IV Push, administer over 3-5 minutes. oxyCODONE (Roxicodone) immediate release tablet 5 mg 5 mg, oral, Every 4 hours PRN, pain ??? mild (1-3), first line, Starting on Thu08/07/25 at 1107, Recovery (only), When able to take oral medications., If ordered PRN for pain, nurse is permitted to administer this medication for higher pain scores based on patient preference? Yes oxyCODONE-acetaminophen (Percocet) 5-325 mg per tablet 1 tablet 1 tablet, oral, Every 4 hours PRN, pain ??? moderate (4-6), second line, Starting on Thu08/07/25 at 1107, Recovery (only), When able to take oral medications., If ordered PRN for pain, nurse is permitted to administer this medication for higher pain scores based on patient preference? Yes oxygen (O2) therapy inhalation, Continuous - O2/gases, oxygen, Starting on Thu08/07/25 at 1107, Recovery (only), Device: Nasal Cannula, Rate in liters per minute: Other, Custom Value: 1-6 LPM, Keep O2 Sat Above: 92% documented in this encounter Care Teams Team MemberRelationshipSpecialtyStart DateEnd Date Deshawn Ramirez DO [address] [place] [address] PCP - GeneralFamily Medicine02/05/24documented as of this encounter
--- OUTSIDE RECORDS SUMMARY | 2025-08-07 10:27 | XMS_ITS | Encounter Summary ---
Author Organization [facility] Address [address] [place] [address] Phone Care Team Providers Care Bone Puller Name Role Phone Deshawn Ramirez DO Primary Care Provider [phone] Reason for Visit * Auth/CertSpecialtyDiagnoses / ProceduresReferred By ContactReferred To Contact Diagnoses Urge incontinence Urge incontinence [N39.41] Procedures AK CYSTOURETHROSCOPY INJ CHEMODENERVATION BLADDER CYSTOSCOPY, WITH BOTULINUM TOXIN INJECTION Dominick Naidu MD [address] [place] [address] [address], [address] [address] Phone: tel: fax: [facility] OR [address] [place] [phone] fax: Referral IDStatusReasonStart DateExpiration DateVisits RequestedVisits [id number] Encounter Details DateTypeDepartmentCare Team (Latest Contact Info)Rljogojrlvd07/17/2025 10:27 AM ESTAnesthesia Event [facility] [place] [id number] [place] [phone] [place] [id number] [place] [address] Anesthesia Record Procedure NameResponsible AnesthesiologistAnesthesia Start TimeAnesthesia Stop TimeCYSTOSCOPY, WITH BOTULINUM TOXIN INJECTIONGene Agrawal MD08/07/25 1027 08/07/25 7213DqcsMtyoOivpxMldmiro69/17/000017645785Ty Yaaxo2564Fh Start Qgnm9452 In Bssj4916No InductionThe patient was reevaluated immediately before moderate or deep sedation use and before anesthesia induction.1033Anesthesia Umvti1873 Proc Zozqo1213ks stop ibsn9087Lte of Eznu4367Gacsdwj to ReceivingI completed my handoff to the receiving clinician during which we: 1. Identified the patient 2. Identified the responsible provider 3. Reviewed the pertinent medical history 4. Discussed the surgicalcourse 5. Reviewed intra-op anesthesia management and issues during anesthesia 6. Set expectations for post-procedure period 7. Allowed opportunity for questions and acknowledgement of understanding.1101An Stop* NameTotalpropofol 10 mg/mL389.03 mgfentaNYL PF 50 mcg/mL100 mcgmidazolam 1 mg/mL2 mglidocaine PF 20 mg/mL (2 %)100 mgceFAZolin (Ancef) 2 g in dextrose (iso) IV 100 mL2 gLR tgcmjmoy427 mL * Agents Name O2 Sevoflurane Inspired Sevoflurane N2O Inspired N2O * Blood No blood administrations on file. TypeDetailsPlacementRemovalPeripheral IVPlacement Date: 08/07/25; Placement Time: 822; Catheter Size: 22 G; Orientation: Posterior, Right;Location: Hand; Site Prep: Chlorhexidine ; Inserted by: tucker johnson rn; Insertion Attempts: 1; Patient Tolerance: Tolerated well; Removal Date: 08/07/25; Removal Time: 1145 08/07/25 0823 by Nela Johnson RN08/07/25 1145 by Cely Menendez RN documented in this encounter Social History Tobacco UseTypesPacks/DayYears UsedDateSmoking Tobacco: FormerCigarettes Smokeless Tobacco: NeverAlcohol UseStandard Drinks/WeekCommentsNot Currently0 (1 standard drink = 0.6 oz pure alcohol)sociallyCommentsNoSex and Gender InformationValueDate RecordedSex Assigned at BirthNot on fileLegal SexFemale 08/16/2022 12:06 PM ESTGender IdentityNot on fileSexual OrientationStraight 08/07/2025 8:14 AM ESTdocumented as of this encounter Functional Status documented as of this encounter OR Notes * Anesthesia Postprocedure Evaluation - Gene Agrawal MD - 08/07/2025 11:02 AM EST Patient: Karlene Tom Procedure Summary Date: 08/07/25 Room / Location: [facility] OR / [facility] OR Anesthesia Start: 1027 Anesthesia Stop: 110 Procedure: CYSTOSCOPY, WITH BOTULINUM TOXIN INJECTION Diagnosis: Urge incontinence (Urge incontinence [N39.41]) Surgeons: Dominick Naidu MD Responsible Provider: Gene Agrawal MD Anesthesia Type: MAC ASA Status: 2 Anesthesia Type: MAC Vitals Value Taken Time BP 130/70 08/07/25 11:02 Temp 36.2 08/07/25 11:02 Pulse 73 08/07/25 11:02 Resp 12 08/07/25 11:02 SpO2 98 08/07/25 11:02 Anesthesia Post Evaluation Patient location during evaluation: PACU Patient participation: complete - patient participated Level of consciousness: awake and alert Pain score: 0 Pain management: adequate Airway patency: patent Cardiovascular status: acceptable, hemodynamically stable and stable Respiratory status: acceptable, room air, unassisted and nonlabored ventilation Hydration status: acceptable Postoperative Nausea and Vomiting: none There were no known notable events for this encounter. * Anesthesia Preprocedure Evaluation - Gene Agrawal MD - 08/07/2025 7:54 AM EST Patient: Karlene Tom Procedure Information Date/Time: 08/07/25 0755 Procedure: CYSTOSCOPY, WITH BOTULINUM TOXIN INJECTION - 200 units Location: [facility] OR 04 / [facility] OR Surgeons: Dominick Naidu MD Relevant Problems Endocrine (+) Obesity Clinical information reviewed: Tobacco Allergies Meds Med Hx Surg Hx Fam Hx NPO Detail: No data recorded Physical Exam Airway Mallampati: II TM distance: >3 FB Neck ROM: full Mouth openin or more finger widths Cardiovascular Rhythm: regular Rate: normal Dental - normal exam Pulmonary Breath sounds clear to auscultation Abdominal Anesthesia Plan History of general anesthesia?: yes History of complications of general anesthesia?: no ASA 2 MAC The patient is not a current smoker. intravenous induction Postoperative pain plan includes opioids. Anesthetic plan and risks discussed with patient. Plan discussed with CAA. documented in this encounter Plan of Treatment Not on file documented as of this encounter Visit Diagnoses Not on filedocumented in this encounter Administered Medications Medication OrderMAR ActionAction DateDoseRateSite ceFAZolin (Ancef) 2 g in dextrose (iso) IV 100 mL 2 g, intravenous, at 200 mL/hr, Administer [...] that apply): Surgical Prophylaxis, Indications: Surgical Prophylaxis Indications:Surgical YipjnilfsouWnecy38/17/2025 10:33 AM EST2 g fentaNYL PF (Sublimaze) injection intravenous, As needed, Starting on Thu08/07/25 at 1032, Anesthesia Intraprocedure Given08/07/2025 10:32 AM NTN114 mcg lactated Ringer's infusion intravenous, Continuous PRN, Starting on Thu08/07/25 at 1027, Anesthesia Intraprocedure New Bag08/07/2025 10:27 AM EST lidocaine PF (Xylocaine) 20 mg/mL (2 %) injection intravenous, As needed, Starting on Thu08/07/25 at 1032, Anesthesia Intraprocedure Given08/07/2025 10:32 AM URD401 mg midazolam (Versed) injection intravenous, As needed, Starting on Thu08/07/25 at 1026, Anesthesia Intraprocedure Given08/07/2025 10:26 AM EST2 mg propofol (Diprivan) injection intravenous, Continuous PRN, Starting on Thu08/07/25 at 1032, Anesthesia Intraprocedure Rate/Dose Tlgrqe2208/07/2025 10:47 AM YHO160 mcg/kg/min78.9 mL/hrRate/Dose Change 08/07/2025 10:37 AM TZA837 mcg/kg/xnv365.35 mL/ezMokbv0808/07/2025 10:35 AM EST30 mgdocumented in this encounter Care Teams Team MemberRelationshipSpecialtyStart DateEnd Date Deshawn Ramirez DO [address] [place] [address] PCP - GeneralFamily Medicine02/05/24documented as of this encounter
--- OUTSIDE RECORDS SUMMARY | 2025-08-07 10:50 | XMS_ITS | Encounter Summary ---
Author Organization [facility] Address [address] [place] [address] Phone Care Team Providers Care Transition Specialist Name Role Phone Deshawn Ramirez DO Primary Care Provider [phone] Reason for Visit * Auth/CertSpecialtyDiagnoses / ProceduresReferred By ContactReferred To Contact Diagnoses Urge incontinence Urge incontinence [N39.41] Procedures [place] CYSTOURETHROSCOPY INJ CHEMODENERVATION BLADDER CYSTOSCOPY, WITH BOTULINUM TOXIN INJECTION Dominick Naidu MD [address] [place] [address] [address], [address] [place] [address] Phone: tel: fax: [facility] OR [address] [place] [phone] fax: Referral IDStatusReasonStart DateExpiration DateVisits RequestedVisits [id number] Encounter Details DateTypeDepartmentCare Team (Latest Contact Info)Huayelcjbjm58/17/2025 10:50 AM EST - 08/07/2025 11:45 AM ESTSurgery [facility] [place] [address] [place] [phone] Dominick Naidu MD [address] [place] [address] [address], [address] [place] [phone] CYSTOSCOPY, WITH BOTULINUM TOXIN INJECTION [60909 (CPT??)] Social History Tobacco UseTypesPacks/DayYears UsedDateSmoking Tobacco: FormerCigarettes Smokeless Tobacco: NeverAlcohol UseStandard Drinks/WeekCommentsNot Currently0 (1 standard drink = 0.6 oz pure alcohol)sociallyCommentsNoSex and Gender InformationValueDate RecordedSex Assigned at BirthNot on fileLegal SexFemale 08/16/2022 12:06 PM ESTGender IdentityNot on fileSexual OrientationStraight 08/07/2025 8:14 AM ESTdocumented as of this encounter Last Filed Vital Signs Vital SignReadingTime TakenCommentsBlood Betspygg584/6808/07/2025 11:00 AM EST Irrys532208/07/2025 11:00 AM MBFZszcynctjlv28.2 ??C (97.2 ??F)08/07/2025 11:00 AM ESTRespiratory Cucb818810/07/2024 10:55 AM ESTOxygen Ygvfanhpsg55%08/07/2025 10:55 AM ESTInhaled Oxygen Concentration--Xacaud780 kg (290 lb)08/07/2025 8:19 AM EST Pcrlrm309.2 cm (5' 7 )08/07/2025 8:19 AM ESTBody Mass Index45.42110/07/2024 8:19 AM ESTdocumented in this encounter Functional Status documented as of this encounter Discharge Instructions * Discharge Instructions* Diana Crocker MD - 08/07/2025 8:29 AM EST DEPARTMENT OF UROLOGY DISCHARGE INSTRUCTIONS CYSTOSCOPY Outpatient Surgery Karlene Joel AllenNegro Call [phone] during regular daytime business hours (8:00 am [...] occur, please contact your doctor's office at [phone]. Any fever higher than 100.4, especially if [...] Botox. Following is an extract from my [facility] urology office note. 44-year-old female patient with history of neurogenic bladder secondary to spina bifida. Patient has had multiple cystoscopies and Botox injection. The last injection was on January 13, 2024With 200 units of Botox. Patient is having recurrent symptoms. She wants to proceed with repeat Botox injectionwe will do at [facility] in the next few weeks. Note that [...] with repeat Botox injectionwe will do at [facility] in the next few weeks. Note that the patient has latex allergy. Dominick Naidu MD [1] No family history on file. documented in this encounter Miscellaneous Notes * Op Note - Diana Crocker MD - 08/07/2025 10:44 AM EST CYSTOSCOPY, WITH BOTULINUM TOXIN INJECTION Operative Note Date: 08/07/2025 OR Location: [facility] OR Name: Karlnee Tom, : 1980, Age: 44 y.o., , Sex: female Diagnosis Pre-op Diagnosis * Urge incontinence [N39.41] Post-op Diagnosis * Urge incontinence [N39.41] Procedures CYSTOSCOPY, WITH BOTULINUM TOXIN INJECTION [address] - [place] CYSTOURETHROSCOPY INJ CHEMODENERVATION BLADDER Surgeons * Dominick Naidu - Primary Resident/Fellow/Other Steel Post Installer Supervisor: Savanah Mera Staff: Asphalt Spreader: Scrub Person: Anesthesia Staff: No anesthesia staff [...] this encounter Procedures Procedure NamePriorityDate/TimeAssociated DiagnosisCommentsPULSE OXIMETRY, DKUMCUVYRDQzaxmke77/17/2025 11:07 AM ESTPR CYSTOURETHROSCOPY INJ CHEMODENERVATION MHWTZEA1708/07/2025 10:27 AM EST Urge incontinence HCG, URINE, QJJONTUCMUPOODQ31/17/2025 7:41 AM EST PULSE OXIMETRY, JFWAIypmozj42/17/2025 7:40 AM ESTdocumented in this encounter Results * hCG, Urine, Qualitative (08/07/2025 7:41 AM EST)ComponentValueRef RangeTest MethodAnalysis TimePerformed AtPathologist SignatureHCG, UrineNEGATIVENEGATIVE 08/07/2025 7:54 AM ESTSSWEETWATER COUNTY MEM[facility] LABSpecimen (Source)Anatomical Location / LateralityCollection Method / VolumeCollection TimeReceived Time UrineUrine specimen / Gcxualn0108/07/2025 7:41 AM EST08/07/2025 7:46 AM EST Narrative Authorizing ProviderResult TypeResult StatusDominick TORRES URINE ORDERABLESFinal ResultPerforming OrganizationAddressCity/State/ZIP CodePhone Number [facility] [address] [place] [address] documented in this encounter Visit Diagnoses Diagnosis Urge incontinence- Primary Urge incontinence Urge incontinence documented in this encounter Admitting [...] Thu08/07/25 at 1107,For 1 dose, Recovery (only) onabotulinumtoxinA (Botox) injection 200 Units 200 Units, intramuscular, Once, On Thu08/07/25 at 1100, For 1 dose Given08/07/2025 10:44 AM MDU025 UnitsBladder ondansetron (Zofran) injection 4 mg 4 mg, [...] Administered Medications Times are shown in EST.Medication Order08/05/20240921//20240921/ acetaminophen (Tylenol) tablet 975 mg 975 mg, [...] * 1033 (Given - Provider: Uzair Benoit [facility]) famotidine PF (Pepcid) injection 20 mg [...] DateEnd Date Deshawn Ramirez DO [address] [place] [address] PCP - GeneralFamily Medicine02/05/24documented as of this encounter
[2025-08-16] VITALS (15 sets, daily range): BP systolic 113–162; BP diastolic 70–101; PULSE 68–83; TEMP 36.6–36.7; O2SAT 87–100; BMI 44.6
--- NOTE | 2025-08-16 16:10 | ED_ITS ---
HPI HPI - General Adult General Chief complaint: Abdominal Pain Stated complaint: SEVERE STOMACH PAIN Time Seen by Provider: 08/16/25 16:00 Source: patient Mode of arrival: walk-in Limitations: no limitations History of Present Illness HPI narrative: Patient is a 44-year-old female with a history of neurogenic bladder who straight caths multiple times a day that presents with complaints of severe left-sided flank pain that is radiating to her abdomen. The pain worsened this morning and has progressed over the last few days. She has been very nauseous but unable to vomit. She denies diarrhea and states she is constipated and did take one of her Linzess medications that did not work. She notes no new changes or history of kidney stones. She did have a procedure last week, Botox injection into the bladder, but has had this many times before without complications. She states she has felt feverish at home but did not take her temperature. It sounds like she had a suprapubic catheter placed when she was 5 days old, this was removed at 5 years old. She had her last surgery at 19 years old to remove scar tissue. She does have spina bifida and has been straight cathing since she was 19 years old for her neurogenic bladder. Related Data Home Medications ?Medication ?Instructions ?Recorded ?Confirmed pregabalin 100 mg capsule 100 mg PO Q8H 06/05/2508/16 Held on 08/16/25. Instructions: Order Change pregabalin 75 mg capsule 75 mg PO TID 08/16/25 tramadol 50 mg tablet 50 mg PO TID PRN pain 08/16/25 Previous Rx's ?Medication ?Instructions ?Recorded ondansetron 4 mg disintegrating 4 mg PO Q6H PRN nausea and 08/16/25 tablet vomiting #20 tabs oxycodone-acetaminophen 5 mg-325 1 tab PO Q6H PRN pain #20 tabs 08/16/25 mg tablet (Percocet) sulfamethoxazole 800 1 tab PO BID 14 days #28 tab s 08/16/25 mg-trimethoprim 160 mg tablet (Bactrim DS) Allergies Allergy/AdvReac Type Severity Reaction Status Date / Time amoxicillin Allergy Severe Hives Verified 08/16/25 15:57 latex Allergy Severe Anaphylaxis Verified 08/16/25 15:57 silver sulfadiazine (From AdvReac Intermediate Blister Verified 08/16/25 15:57 Silvadene) ciprofloxacin AdvReac Mild itching Verified 08/16/25 15:57 Opioid HPI Opioid Management Most Recent Opioid Data: Last Pain Scale 8 Today, 21:03 Last MAR Pain Assessment Today, 21:03 Ur Phencyclidine Scrn, (NEGATIVE) Negative , 13:05 Review of Systems ROS Status of ROS 10 or more systems reviewed and unremark able except as noted in history and below PFSH PFSH Social History Smoking status: Current every day smoker Little interest or pleasure in doing things: not at all Feeling down, depressed, or hopeless: not at all Exam Narrative Exam Narrative: General: Appears uncomfortable, laying on right side on ED cart, age-appropriate Skin: Warm, dry, no pallor. No rash. Head: Normocephalic, atraumatic. Neck: Supple, non-tender. Eye: Pupils are equal, round and EOMI. No scleral icterus. Ears, Nose, Mouth, and Throat: No nasal mucosal hypertrophy. Oral mucosa is moist, no posterior oropharynx erythema, uvula is mid-line Cardiovascular: Regular Rate and Rhythm without murmur, gallop or rub. Respiratory: No accessory muscle use or respiratory distress. Lungs are clear to auscultation, no wheezing, rales or rhonchi Back: No midline thoracic or lumbar vertebral tenderness. L CVA tenderness to palpation. Musculoskeletal: Full ROM of all extremities, no calf or popliteal tenderness. GI: Abdomen is soft, non-distended,tender to palpation LUQ/LLQ. No masses appreciated. No rebound, guarding, or rigidity noted. Neurological: A&O x4. No cranial nerve dysfunction observed. No truncal ataxia. Moves all extremities. Sensation intact. Psychiatric: Cooperative and interactive. Normal mood and affect. Constitutional Vital Signs, click to edit/add: Last Vital Signs Temp 98.1 F 08/16/25 20:33 Pulse 80 08/16/25 20:33 Resp 18 08/16/25 20:33 BP 113/85 08/16/25 20:33 Pulse Ox 99 08/16/25 20:33 O2 Del Method Room Air 08/16/25 18:03 Course Vital Signs Vital signs: Vital Signs Temperature 98 F 08/16/25 15:58 Pulse Rate 83 08/16/25 15:58 Respiratory Rate 16 08/16/25 15:58 Blood Pressure 162/101 H 08/16/25 15:58 Pulse Oximetry 98 08/16/25 15:58 Oxygen Delivery Method Room Air 08/16/25 15:58 Temperature 98.1 F 08/16/25 20:33 Pulse Rate 80 08/16/25 20:33 Respiratory Rate 18 08/16/25 20:33 Blood Pressure 113/85 08/16/25 20:33 Pulse Oximetry 99 08/16/25 20:33 Oxygen Delivery Method Room Air 08/16/25 18:03 Medical Decision Making MDM Narrative Medical decision making narrative: This is a 44-year-old female that presents with a few days of left flank and abdominal pain that has progressed over the past few days to severe starting this morning. She started getting nauseous this morning, no vomiting. She did not remember when her last BM was. She did take Linzess to try to go, which did not help and usually does. She has spina bifida and neurogenic bladder, she has been straight cathing since she was 19 years old. She had what sounds like a suprapubic catheter placed as an infant, removed at 5 years old, and scar tissue removed surgically when she was 19 years old. She follows with [facility] urology in [facility], Dr Naidu. She has felt feverish at home, has not taken her temperature. On arrival patient is laying on her right side, appears uncomfortable. Vitals hemodynamically stable. BP hypertensive 162/101. Temperature afebrile at 98 ?F. IV ordered, unable to be placed and patient then requested IM/p.o. meds. Toradol 30mg IM and Zofran 4mg ODT given. CBC, CMP, Lipase, UA ordered. IV was able to be placed after CT scan was obtained in case there was need for IV antibiotics or transfer. UTI History of chronic UTI's secondary to Neurogenic bladder, straight caths at home No leukocytosis, WBC 10.9, afebrile UA with Proteinuria, Large occult blood, Positive nitrites, Mod LE, WBC 75-100, Large bacteria, trace mucus Hydroureteronephrosis CT Ab/Pel with Left-sided hydroureteronephrosis and bladder wall thickening. No obstructing calculi identified. Left perinephric fat stranding and periureteral fat stranding noted be related to hydronephrosis versus an infectious etiology. CR 0.85/BUN 13 1g Rocephin IV ordered. I called and spoke with [facility], Marc Groves PA-C who was alarm security or surveillance monitor for the group and discussed the case with him as she is well-known to their group. He recommended a bladder scan to rule out retention and okay to treat outpatient with Bactrim. They will plan to have her follow-up soon to re-image to ensure resolution of the hydroureteronephrosis. I discussed results with patient and plan and she is agreeable. Pain is starting to return and I will give her a 1 mg dose of Dilaudid. I will prescribe her Percocet 5 mg, Zofran, and Bactrim at discharge. Percocet 5 mg x 2 tablets and Zofran 4 mg ODT ordered to go given pharmacies are closed at this time. Patient?s pain improved after the Dilaudid and was adequately controlled prior to discharge. She remained hemodynamically stable throughout her stay, afebrile, tolerating oral intake, and without signs of sepsis or obstructive uropathy requiring emergent intervention. After consultation with [facility], she is appropriate for outpatient management with oral antibiotics and close follow-up. Patient is stable for discharge with prescriptions provided and clear instructions. Return precautions discussed, including: * Fever or chills * Worsening flank or abdominal pain * Inability to catheterize or decreased urine output * Persistent vomiting or inability to tolerate medications * Any concern for worsening infection or obstruction Patient verbalized understanding and is agreeable to the plan. Patient discharged. Differential Diagnosis Differential Diagnosis: Acute pyelonephritis, ureteral obstruction, SBO Lab Data Lab results reviewed: Yes I reviewed the patient's lab results Labs: Lab Results 08/16/25 08/16/25 Range/Units 16:28 16:30 WBC 10.9 (4.0-11.0) 10^3/uL RBC 4.30 (4.20-5.40) 10^6/uL Hgb 12.6 (12.0-16.0) g/dL Hct 37.4 (36.0-48.0) % MCV 87.0 (81.0-99.0) fL MCH 29.3 (26.7-34.0) pg MCHC 33.7 (29.9-35.2) g/dL RDW 12.3 (11.0-15.0) % Plt Count 262 (150-450) 10^3/uL MPV 9.5 (9.5-13.5) fL Neut % (Auto) 74.0 (43.0-75.0) % Lymph % (Auto) 17.9 L (20.5-60.0) % [place] % (Auto) 6.3 (1.7-12.0) % Eos % (Auto) 0.9 (0.9-7.0) % Baso % (Auto) 0.4 (0.2-2.0) % Neut # (Auto) 8.1 H (1.4-6.5) 10^3/uL Lymph # (Auto) 1.9 (1.2-3.8) 10^3/uL [place]lette # (Auto) 0.7 (0.3-0.8) 10^3/uL Eos # (Auto) 0.1 (0.0-0.7) 10^3/uL Baso # (Auto) 0.0 (0.0-0.1) 10^3/uL Abs Immat Gran (auto) 0.05 H (0.00-0.03) 10^3/uL Imm/Tot Granulo (auto) 0.5 (0.0-0.5) % Sodium 137 (136-145) mmol/L Potassium 3.8 (3.5-5.1) mmol/L Chloride 102 (98-107) mmol/L Carbon Dioxide 29.0 (21.0-32.0) mmol/L Anion Gap 9.8 BUN 13.0 (7.0-18.0) mg/dL Creatinine 0.85 (0.55-1.02) mg/dL Est GFR ( Amer) >60 (>=60 mL/min/1.73m^2) Est GFR (Non-Af Amer) >60 (>=60 mL/min/1.73m^2) BUN/Creatinine Ratio 15.3 Glucose 123 H (74-106) mg/dL Calcium 8.8 (8.5-10.1) mg/dL Total Bilirubin 0.5 (0.2-1.0) mg/dL AST 14 L (15-37) U/L ALT 24 (14-59) U/L Alkaline Phosphatase 79 (46-116) U/L Total Protein 7.1 (6.4-8.2) g/dL Albumin 3.3 L (3.4-5.0) g/dL Globulin 3.8 g/dL Albumin/Globulin Ratio 0.9 Lipase 21.0 (16.0-77.0) U/L Urine Color Yellow (YELLOW) Urine Clarity Cloudy A (CLEAR) Urine pH 7.0 (5.0-9.0) Ur Specific [place] 1.020 (1.005-1.025) Urine Protein >=300 A (NEG/TRACE) mg/dL Urine Glucose (UA) Negative (NEGATIVE) mg/dL Urine Ketones Negative (NEGATIVE) mg/dL Urine Occult Blood Large A (NEGATIVE) Urine Nitrite Positive A (NEGATIVE) Urine Bilirubin Negative (NEGATIVE) Urine Urobilinogen 0.2 (0.2-1.0) EU/dL Ur Leukocyte Esterase Moderate A (NEGATIVE) Urine RBC 10-20 A (0-2) #/HPF Urine WBC 75-100 A (NONE SEEN) #/HPF Ur Squamous Epith Cells Moderate A (NONE/RARE) #/LPF Ur Transition Epith Cell Rare A (NONE SEEN) #/LPF Urine Crystals None seen (None Seen) #/HPF Urine Bacteria Large A (NONE SEEN) #/HPF Urine Casts None seen (NONE SEEN) #/LPF Urine Mucus Trace A (NONE SEEN) Ur Culture Indicated? Yes-[facility] Urine HCG, Qual Negative (NEGATIVE) Imaging Data CT scan - abdomen: Attestation: I have reviewed the pertinent imaging results. Radiologist's impression: ITS Impressions Abdomen/Pelvis CT 08/16/25 17:59 IMPRESSION: Left-sided hydroureteronephrosis and bladder wall thickening. No obstructing calculi identified. Left perinephric fat stranding and periureteral fat stranding noted be related to hydronephrosis versus an infectious etiology. Clinical correlation is recommended. Impression dictated by: Geoff Jane M.D. 08/16/2025 7:51 PM Dictation Location: [place] [address] Electronically authenticated by: [id number] Y Date: 08/16/2025 19:51 Discharge Plan Discharge Chief Complaint: Abdominal Pain Clinical Impression: Hydroureteronephrosis, Cystitis, Urinary tract infection Patient Disposition: Home, Self-Care Time of Disposition Decision: 20:38 Condition: Good Mode of Transportation: Private Vehicle Prescriptions / Home Meds: New oxycodone-acetaminophen [Percocet] 5-325 mg tablet 1 tab PO Q6H PRN (Reason: pain) Qty: 20 0RF ondansetron 4 mg tablet,disintegrating 4 mg PO Q6H PRN (Reason: nausea and vomiting) Qty: 20 0RF sulfamethoxazole-trimethoprim [Bactrim DS] 800-160 mg tablet 1 tab PO BID 14 Days Qty: 28 0RF No Action pregabalin 100 mg capsule 100 mg PO Q8H pregabalin 75 mg capsule 75 mg PO TID tramadol 50 mg tablet 50 mg PO TID PRN (Reason: pain) Print Language: [place] Instructions: Urinary Tract Infection in Women (ED), Hydronephrosis (ED) Additional Instructions: Start: Bactrim DS * Take 1 tablet (160 mg/800 mg) by mouth twice daily for 14 days * This antibiotic is very important to prevent the infection from worsening or spreading. Pain and Nausea * Take Tylenol or ibuprofen as needed for pain (avoid ibuprofen if your doctor has told you to avoid NSAIDs). Percocet 5 mg prescribed for breakthrough or severe pain. * Use ondansetron (Zofran) if you were prescribed it for nausea. Hydration * Drink plenty of clear fluids unless you were told otherwise. This will help flush the urinary system and prevent worsening infections. Activity * Rest as needed. * Avoid heavy lifting until your pain improves. * Continue your normal straight catheterization schedule. Follow-Up You must follow up with Urology within 1?2 days for: * Re-evaluation of your kidney swelling * Review of your culture results * Assessment for possible functional or structural obstruction related to your neurogenic bladder Follow up with your primary care provider in 3?5 days. Return to the Emergency Department Immediately If You Develop: * Fever >=100.4?F * Worsening flank or abdominal pain * Vomiting and inability to keep down fluids or medications * New weakness, dizziness, fainting * Worsening burning or blood in the urine * Decreased urine output * Any new or concerning symptoms These can be signs of worsening infection or obstruction and may require hospitalization. Referrals: Dominick Naidu [Other, Urology] - 1 week Physician,Non-Staff, [Primary Care Provider] - 1 week
--- OUTSIDE RECORDS SUMMARY | 2025-08-16 16:35 | XMS_ITS | Encounter Summary ---
Author Organization [facility] Address [address] [place] [address] Care Team Providers Care Filter Press Supervisor Name Role Phone Alexander Gallegos MD Primary Care Provider [phone] Soledad Estrella APRN.SADDLE CUTTER Unavailable [phone] Source Comments In the event this information is protected by the Federal Confidentiality of Alcohol and Drug AbusePatient Records regulations: The Federal rules restrict any use of the information to criminally investigate or prosecute any alcohol or drug abuse patient.[facility] Encounter Details DateTypeDepartmentCare Team (Latest Contact Info)Gkrtjaaizgu99/13/2025 Patient Msg Internal Medicine [facility] [address] [place], [place] [id number] Liz, Ccf Schedule your Screening Mammogram Reminder Social History Tobacco UseTypesPacks/DayYears UsedDateSmoking Tobacco: CvaplsLdmlqkfaiq038.8 Started: 2003Smokeless Tobacco: NeverAlcohol UseStandard Drinks/WeekCommentsYes0 (1 standard drink = 0.6 oz pure alcohol)once every 6 monthsCH[facility] UtilitiesAnswer Date RecordedIn the past 12 months has the electric, gas, oil, or water company threatened to shut off services in your home?Yes01/05/2024Social Connection and Isolation PanelAnswerDate RecordedIn a typical week, how many times do you talk on the phone with family, friends, or neighbors?Twice a week01/05/2024How often do you get together with friends or relatives?Never01/05/2024How often do you attend yarsani or anabaptism services?1 to 4 times per year01/05/2024o you belong to any clubs or organizations such as yarsani groups, unions, fraternal or athletic groups, or school groups?Yes01/05/2024How often do you attend meetings of the clubs or organizations you belong to?1 to 4 times per year01/05/2024re you , , , , never , or living with a partner?Anrcgvkm06/16/2024UDIT-CAnswerDate RecordedQ1: How often do you have a drink containing alcohol?Monthly or less01/05/2024Q2: How many drinks containing alcohol do you have on a typical day when you are drinking?3 or Q3: How often do you have six or more drinks on one occasion?Never01/05/2024Overall Financial Resource Strain (CARDIA)AnswerDate RecordedHow hard is it for you to pay for the very basics like food, housing, medical care, and heating?Somewhat hard01/05/2024HQ-2AnswerDate RecordedPHQ-2 [id number] of Occupational Health - Occupational Stress QuestionnaireAnswerDate RecordedDo you feel stress - tense, restless, nervous, or anxious, or unable to sleep at night because yourmind is troubled all the time - these days?Very much01/05/2024 Exercise Vital SignAnswerDate RecordedOn average, how many days per week do you engage in moderate to strenuous exercise (like a brisk walk)?0 days01/05/2024On average, how many minutes do you engage in exercise at this level?0 min 01/05/2024Hunger Vital SignAnswerDate RecordedWithin the past 12 months, you worried that your food would run out before you got the money to buymore. Sometimes true01/05/2024Within the past 12 months, the food you bought just didn't last and you didn't have money to get more.Never true01/05/2024RAPARE - TransportationAnswerDate RecordedIn the past 12 months, has lack of transportation kept you from medical appointments or from getting medications?No 01/05/2024In the past 12 months, has lack of transportation kept you from meetings, work, or from getting things needed for daily living?No01/05/2024 Housing Stability Vital SignAnswerDate RecordedIn the last 12 months, was there a time when you were not able to pay the mortgage or rent on time?No01/05/2024In the last 12 months, how many places have you lived?In the last 12 months, was there a time when you did not have a steady place to sleep or slept in ashelter (including now)?No01/05/2024rea Deprivation IndexAnswerDate RecordedNational Score (1-100), lower number is lower iwrr473812/01/2023State Score (1-10), lower number is lower [id number] from: https://www.neighborhoodatlas.medicine.[facility].edu/. Last address used for [address] [place] [address]/01/2023CommentsNoSex and Gender InformationValueDate RecordedSex Assigned at BirthNot on fileLegal SexFemale 08/22/2012 9:49 AM ESTGender IdentityNot on fileSexual OrientationNot on file documented as of this encounter Functional Status * Are you deaf or do you have serious difficulty hearing?AnswerDate of OsppjhnilcSduebcVi53/29/2017 4:35 PM Soledad Harvey APRN.SADDLE CUTTER * Are you blind or do you have serious difficulty seeing, even when wearing glasses?AnswerDate of BqfwdhintzIwnvjjSm43/29/2017 4:35 PM Soledad Harvey APRN.SADDLE CUTTER * Do you have serious difficulty walking or climbing stairs?AnswerDate of JmcuveqexnVliyuaYu26/29/2017 4:35 PM Soledad Harvey APRN.[place] * Do you have difficulty dressing or bathing?AnswerDate of AssessmentAuthorNo 06/19/2017 4:35 PM Soledad Harvey APRN.SADDLE CUTTER * Because of a physical, mental, or emotional condition, do you have difficulty doing errands alone such as visiting a doctor's office or shopping?AnswerDate of UmboeiuyksKfdwjkYk37/29/2017 4:35 PM Soledad Harvey APRN.SADDLE CUTTER documented as of this encounter Mental Status * Because of a physical, mental, or emotional condition, do you have serious difficulty concentrating, remembering, or making decisions?AnswerEntry Date FplsvaKt50/29/2017 4:35 PM Soledad Harvey APRN.CNP documented in this encounter Plan of Treatment DateTypeDepartmentCare Team (Latest Contact Info)Oxdzdjedrpb93/02/2025 4:20 PM ESTOffice Visit Endocrinology [address] [place] [address] Sarah Dave MD [address] [place] [address] My thyroid is causing more problemsdocumented as of this encounter Visit Diagnoses Not on filedocumented in this encounter Care Teams Team MemberRelationshipSpecialtyStart DateEnd Date Alexander Gallegos MD [address] [place] [address] PCP - GeneralInternal Medicine04/26/25 Soledad Estrella APRN.CNP [address] [place] [address] Care PartnerFamily Medicine04/27/25documented as of this encounter
--- OUTSIDE RECORDS SUMMARY | 2025-08-16 16:35 | XMS_ITS | Encounter Summary ---
Author Organization [facility] Address [address] [place] [address] Phone Care Team Providers Care Assistant Service Manager Name Role Phone JamesDeshawn Primary Care Provider [phone] Encounter Details DateTypeDepartmentCare Team (Latest Contact Info)Igxxiqmjekx72/16/2025Results Follow-Up [address] [place] [address] Dominick Naidu MD [address] [place] [address] [address] [place], [place] [id number] ECG 12 lead Social History Tobacco UseTypesPacks/DayYears UsedDateSmoking Tobacco: FormerCigarettes Smokeless Tobacco: NeverAlcohol UseStandard Drinks/WeekCommentsNot Currently0 (1 standard drink = 0.6 oz pure alcohol)sociallyCommentsNoSex and Gender InformationValueDate RecordedSex Assigned at BirthNot on fileLegal SexFemale 08/16/2022 12:06 PM ESTGender IdentityNot on fileSexual OrientationStraight 08/07/2025 8:14 AM ESTdocumented as of this encounter Functional Status documented as of this encounter Plan of Treatment Not on file documented as of this encounter Visit Diagnoses Not on filedocumented in this encounter Care Teams Team MemberRelationshipSpecialtyStart DateEnd Date Deshawn Ramirez DO [address] [place] [address] PCP - GeneralFamily Medicine02/05/24documented as of this encounter
--- OUTSIDE RECORDS SUMMARY | 2025-08-16 16:35 | XMS_ITS | Encounter Summary ---
Author Organization [facility] Address [address] [place] [address] Phone Care Team Providers Care Color Checker Roving Or Yarn Name Role Phone JamesDeshawn Primary Care Provider [phone] Reason for Visit * ReasonOnset DateCommentscancel ortemoi5208/03/2025 Encounter Details DateTypeDepartmentCare Team (Latest Contact Info)Thcekwqphmg54/13/2025Telephone [address] [facility] [address] [place] [phone] Alexandria Greer LPN cancel surgery Social History Tobacco UseTypesPacks/DayYears UsedDateSmoking Tobacco: FormerCigarettes Smokeless Tobacco: NeverAlcohol UseStandard Drinks/WeekCommentsNot Currently0 (1 standard drink = 0.6 oz pure alcohol)sociallyCommentsNoSex and Gender InformationValueDate RecordedSex Assigned at BirthNot on fileLegal SexFemale 08/16/2022 12:06 PM ESTGender IdentityNot on fileSexual OrientationStraight 08/07/2025 8:14 AM ESTdocumented as of this encounter Miscellaneous Notes * Telephone Encounter - Iban Sheikh RN - 08/04/2025 9:00 AM EST Sharynn states she is feeling much better and would like to keep her procedure scheduled for 08/07.Script for macrobid pended to treat uti. * Telephone Encounter - Alexandria Greer LPN - 08/03/2025 2:01 PM EST Pt LVM on nurse line stating that she is sick and needs to cancel her surgery for Thursday08/07/25. Pt stated that she has yet to received medication that was to be sent to [facility] on in [place]. Please assist with pt's concerns. documented in this encounter Plan of Treatment Not on file documented as of this encounter Visit Diagnoses Diagnosis Urinary tract infection without hematuria, site unspecified documented in this encounter Care Teams Team MemberRelationshipSpecialtyStart [place] [address] [place] [address] PCP - GeneralFamily Medicine02/05/24documented as of this encounter
--- OUTSIDE RECORDS SUMMARY | 2025-08-16 16:35 | XMS_ITS | Clinical Summary ---
Author Organization [facility] Address [address] [place] [address] Care Team Providers Care Log Preparer Name Role Phone Unavailable Primary Care Provider Unavailabl e Social History Tobacco UseTypesPacks/DayYears UsedDateSmoking Tobacco: Never Assessed CommentsUnknownSex and Gender InformationValueDate RecordedSex Assigned at Not on fileLegal KukVtgvme95/15/2023 8:21 PM EDTGender IdentityNot on fileSexual OrientationNot on file Last Filed Vital Signs Vital SignReadingTime TakenCommentsBlood Pressure--Pulse--Temperature-- Respiratory Rate--Oxygen Saturation--Inhaled Oxygen Concentration--Xhlrxz319 kg (265 lb)05/21/2020 12:00 PM OQFJjtzqz290.2 cm (5' 7 )05/21/2020 12:00 PM EDTBody Mass Index41.5005/21/2020 12:00 PM EDT Plan of Treatment Not on file
--- OUTSIDE RECORDS SUMMARY | 2025-08-16 16:35 | XMS_ITS | Encounter Summary ---
Author Organization [facility] Address [address] [place], [place] [address] Care Team Providers Care Merchandise Worker Name Role Phone Alexander Gallegos MD Primary Care Provider [phone] Soledad Estrella APRN.LOOSELEAF BINDER COVERER Unavailable [phone] Source Comments In the event this information is protected by the Federal Confidentiality of Alcohol and Drug AbusePatient Records regulations: The Federal rules restrict any use of the information to criminally investigate or prosecute any alcohol or drug abuse patient.[facility] Reason for Referral * Diagnostic Procedure Only (Routine) - New RequestSpecialtyDiagnoses / ProceduresReferred By ContactReferred To ContactBR IMAGING Diagnoses Encounter for screening mammogram for breast cancer Procedures HUDSON SCREENING W STEFFEN SCREENING DIGITAL BREAST TOMOSYNTHESIS BI SCREENING MAMMOGRAPHY BI 2-VIEW BREAST INC CAD Alexander Gallegos MD [address] [place] [address] Phone: tel: fax: [facility] [address] [place] [address] Referral IDStatusReasonStart DateExpiration DateVisits RequestedVisits [id number] Request Auto-Generated Referral / Encounter Details DateTypeDepartmentCare Team (Latest Contact Info)Obsfxcyxxot57/14/2025Patient Outreach Internal Medicine [facility] [address] [place] [address] Alexander Gallegos MD [address] [place] [address] Social History Tobacco UseTypesPacks/DayYears UsedDateSmoking Tobacco: PvkbsrAzvnxrkbak836.8 Started: 2003Smokeless Tobacco: NeverAlcohol UseStandard Drinks/WeekCommentsYes0 (1 standard drink = 0.6 oz pure alcohol)once every 6 monthsOH[facility] UtilitiesAnswer Date RecordedIn the past 12 months has the electric, gas, oil, or water Zero9 threatened to shut off services in your home?Yes01/05/2024Social Connection and Isolation PanelAnswerDate RecordedIn a typical week, how many times do you talk on the phone with family, friends, or neighbors?Twice a week01/05/2024How often do you get together with friends or relatives?Never01/05/2024How often do you attend buddhist or yarsani services?1 to 4 times per year4Do you belong to any clubs or organizations such as buddhist groups, unions, fraternal or athletic groups, or school groups?Yes01/05/2024How often do you attend meetings of the clubs or organizations you belong to?1 to 4 times per year01/05/2024re you , , , , never , or living with a partner?Hexjylqd10/16/2024UDIT-CAnswerDate RecordedQ1: How often do you have a [...] housing, medical care, and heating?Somewhat hard01/05/2024HQ-2AnswerDate RecordedPHQ-2 fwmdy249Finblue mountain hospital [place] of Occupational Health - Occupational Stress QuestionnaireAnswerDate [...] RecordedNational Score (1-100), lower number is lower kdaf167312/01/2023State Score (1-10), lower number is lower meks9714Data from: https://www.neighborhoodatlas.[facility]/. Last address used for [address] regnantCommentsNoSex and Gender InformationValueDate RecordedSex Assigned at BirthNot on fileLegal SexFemale 08/22/2012 9:49 AM ESTGender IdentityNot on fileSexual OrientationNot on file documented as of this encounter Functional Status * Are you deaf or do you have serious difficulty hearing?AnswerDate of ZcdyohaaqrGbgoziRc51/29/2017 4:35 PM Soledad Harvey APRN.LOOSELEAF BINDER COVERER * Are you blind or do you have serious difficulty seeing, even when wearing glasses?AnswerDate of DwwyxpfwkiPsombkOs08/29/2017 4:35 PM Soledad Harvey APRN.LOOSELEAF BINDER COVERER * Do you have serious difficulty walking or climbing stairs?AnswerDate of KomxfupiorTulwhmLm63/29/2017 4:35 PM Soledad Harvey APRN.LOOSELEAF BINDER COVERER * Do you have difficulty dressing or bathing?AnswerDate of AssessmentAuthorNo 06/19/2017 4:35 PM Soledad Harvey APRN.LOOSELEAF BINDER COVERER * Because of a physical, mental, or emotional condition, do you have difficulty doing errands alone such as visiting a doctor's office or shopping?AnswerDate of BdczkcksjqUlokbdOk66/29/2017 4:35 PM Soledad Harvey APRN.LOOSELEAF BINDER COVERER documented as of this encounter Mental Status * Because of a physical, mental, or emotional condition, do you have serious difficulty concentrating, remembering, or making decisions?AnswerEntry Date YcaefoDi74/29/2017 4:35 PM Soledad Harvey APRN.LOOSELEAF BINDER COVERER documented in this encounter Plan of Treatment DateTypeDepartmentCare Team (Latest Contact Info)Nifihfyrbkw98/02/2025 4:20 PM ESTOffice Visit Endocrinology [address] [place], [place] [id number] Sarah Dave MD [address] [place] [phone] My thyroid is causing more problemsNameTypePriorityAssociated DiagnosesOrder ScheduleMAM SCREENING W TOMORadiologyRoutine Encounter for screening mammogram for breast cancer 1 Occurrences starting 07/04/2025 until 08/03/2026documented as of this encounter Visit Diagnoses Diagnosis Encounter for screening mammogram for breast cancer documented in this encounter Care Teams Team MemberRelationshipSpecialtyStart DateEnd Date Alexander Gallegos MD [address] [place] [address] PCP - GeneralInternal Medicine04/26/25 Soledad Estrella APRN.[facility] [address] [place] [address] Care PartnerFamily Medicine04/27/25documented as of this encounter
--- OUTSIDE RECORDS SUMMARY | 2025-08-16 16:35 | XMS_ITS | Clinical Summary ---
Author Organization [facility] Address [address] [place] [address] Phone Care Team Providers Care Veterinary Assistant Technician Name Role Phone Deshawn Ramirez Primary Care Provider [phone] Allergies Active AllergyReactionsCriticalityNoted DateCommentsCiprofloxacinItchingLow 01/01/20241210FglbuPltwzhlxfmeNntl17/12/2024Silver HxgirsflkkgdLzcsfBtp70/29/2024 Makes condition worse Medications MedicationSigDispense QuantityRefillsLast FilledStart DateEnd DateStatus acetaminophen (Tylenol) 500 mg tablet Indications:Post-operative painTake 2 tablets (1,000 mg) by mouth every 6 hours if needed for mild pain (1 - 3). 30 tablet 01/18/2024ctive phenazopyridine (Pyridium) 200 mg tablet Indications:Post-operative painTake 1 tablet (200 mg) by mouth 3 times a day as needed for bladder spasms. 10 tablet 01/18/2024ctive Additional Information Patient not taking.Reported on 08/07/2025 pregabalin (Lyrica) 50 mg capsule Take 1 capsule (50 mg) by mouth 3 times a day.06/10/2022ctive traMADol (Ultram) 50 mg tablet Take 1 tablet (50 mg) by mouth 3 times a day.06/10/2022ctive tiZANidine (Zanaflex) 4 mg tablet Take 1 tablet (4 mg) by mouth once daily as needed.11/09/2023ctive ibuprofen 200 mg tablet Take 3 tablets (600 mg) by mouth once daily as needed.03/09/2023ctive nitrofurantoin, macrocrystal-monohydrate, (Macrobid) 100 mg capsule Take 1 capsule (100 mg) by mouth 2 times a day.Discontinued (Med List Cleanup) nitrofurantoin, macrocrystal-monohydrate, (Macrobid) 100 mg capsule Indications:Urinary tract infection without hematuria, site unspecifiedTake 1 capsule (100 mg) by mouth 2 times a day for 5 days. 10 capsule Expired nitrofurantoin, macrocrystal-monohydrate, (Macrobid) 100 mg capsule Indications:Urge incontinenceTake 1 capsule (100 mg) by mouth 2 times a day for 3 days. 6 capsule 08/07/2025 11:20 AM ESTExpired Active Problems ProblemNoted DateDiagnosed NoyqZveqxoh46/29/2024Urge cvfjmljtjcxe48/12/2024 Encounters DateTypeDepartmentCare MxdzQmjpdgnhnyj43/17/2025 10:50 AM EST - 08/07/2025 11:45 AM ESTSurgery [facility] [address] [place] [address] [place] [address] Dominick Naidu MD CYSTOSCOPY, WITH BOTULINUM TOXIN INJECTION [79340 (CPT??)]08/07/2025 10:27 AM ESTAnesthesia Event [facility] [place] [address] [place] [address] [place] [address] Gene Agrawal MD 08/07/2025 7:07 AM EST - 08/07/2025 11:59 AM ESTHospital Encounter [facility] [place] [address] [place] [address] [place] [address] Dominick Naidu MD Urge incontinence (Primary Dx) Discharge Disposition: Home08/07/20257829Lpsauz37/16/2025Results Follow-Up [facility] [address] [place] [address] Dominick Naidu MD ECG 12 lead08/03/2025Telephone [address] [place] [address] Percy AlexandriaJENY cancel hvcmlty6207/31/2025 10:15 AM ESTPre-Admission Testing [facility] [address] [place] [address] Preop examination [Z01.818] (Primary Dx); Urge nkwnhwoceszg71/10/2025Results Follow-Up [address] [place] [address] Dominick Naidu MD Urinalysis with Reflex Culture, Extra Urine Dacosta Tube, Microscopic Only, Urine 07/31/20255605Ylacvm60/24/2025Prep for Procedure [address] [place] [address] Dominick Naidu MD Urge incontinence (Primary Dx)from Last 3 Months Family History Medical HistoryRelationNameCommentsBlood clotFatherHeart attackFatherbladder cancerFatherBone cancerMaternal GrandfatherSkin cancerMotherBreast cancer Paternal GrandmotherRelationNameStatusCommentsFatherMaternal GrandfatherMother Paternal Grandmother Social History Tobacco UseTypesPacks/DayYears UsedDateSmoking Tobacco: FormerCigarettes Smokeless Tobacco: Never Tobacco Cessation:Counseling Given: Not Answered Alcohol UseStandard Drinks/WeekCommentsNot Currently0 (1 standard drink = 0.6 oz pure alcohol)sociallyCommentsNoSex and Gender InformationValueDate RecordedSex Assigned at BirthNot on fileLegal JcyNdrvsg66/26/2022 12:06 PM EST Gender IdentityNot on fileSexual QfctdvsyelhWackfvrz61/17/2025 8:14 AM EST Last Filed Vital Signs Vital SignReadingTime TakenCommentsBlood Wtdclptb369/6408/07/2025 11:49 AM EST Sbfbp955708/07/2025 11:49 AM HSQZnvwfbeyoml94.3 ??C (97.3 ??F)08/07/2025 11:49 AM ESTRespiratory Pyoh162310/07/2024 11:49 AM ESTOxygen Whsqfldzag39%08/07/2025 11:49 AM ESTInhaled Oxygen Concentration--Pgfkqp671 kg (290 lb)08/07/2025 8:19 AM EST Zjdrcy436.2 cm (5' 7 )08/07/2025 8:19 AM ESTBody Mass Index45.42110/07/2024 8:19 AM EST Plan of Treatment Health MaintenanceDue DateLast DoneCommentsCT Kizucddfijrb56/06/1980Colonoscopy 1979Colorectal Cancer Fzjtvpwyx65/06/1980FIT-DNA (Cologuard)1979FIT 1979HIV Yeugfsukc37/06/1980Lipid Panel1979 3930Ipifupokwscsk62/06/1980MMR Vaccines (1 of 1 - Standard series)12/25/1980Hepatitis C Hvevcasbi20/06/1998 Hepatitis B Vaccines (1 of 3 - 19+ 3-dose series)12/25/1998Cervical Cancer Sakcolsio62/06/2001HPV/Xyouhw3612/25/2000Pap Smear12/25/2000HPV Vaccines (1 - 3- dose standard series)12/25/20066595Tavkkqfna87/06/2020Yearly Adult Physical 410/11/2022, 07/31/2021Influenza Vaccine (#1)5009/30/2012COVID- 19 Vaccine ( - season)2025Diabetes Ggutrdenw94/16/131628/, 12/04/2021, 11/30/2019, Additional history existsZoster Vaccines (1 of 2) 12/25/2029DTaP/Tdap/Td Vaccines (3 - Td or Tdap), 01/06/2013, 04/27/2011HIB VaccinesAged OutNo longer eligible based on patient's age to complete this topicHepatitis A VaccinesAged OutNo longer eligible based on patient's age to complete this topicIPV VaccinesAged OutNo longer eligible based on patient's age to complete this topicMeningococcal VaccineAged OutNo longer eligible based on patient's age to complete this topicPneumococcal Vaccine: Pediatrics and At-Risk Adult PatientsAged OutNo longer eligible based on patient's age to complete this topicRotavirus VaccinesAged OutNo longer eligible based on patient's age to complete this topic Procedures Procedure NamePriorityDate/TimeAssociated DiagnosisCommentsPULSE OXIMETRY, QECQFXGVCWKcmlsws20/17/2025 11:07 AM ESTPR CYSTOURETHROSCOPY INJ CHEMODENERVATION ODWANPZ3608/07/2025 10:27 AM EST Urge incontinence HCG, URINE, OAASVUEUBBNRIKK04/17/2025 7:41 AM EST PULSE OXIMETRY, HGVVCrzuhjz99/17/2025 7:40 AM ESTURINALYSIS MICROSCOPIC ONLY Tujunfk2307/31/2025 10:19 AM EST Urge incontinence EXTRA URINE DACOSTA TOUDYcothwj25/10/2025 10:19 AM EST Urge incontinence URINALYSIS WITH REFLEX MICROSCOPIC AND XSRSBAOKbwfrdo71/10/2025 10:19 AM EST Urge incontinence URINALYSIS WITH REFLEX MICROSCOPIC AND MQLNUGQXfwbsfx36/10/2025 10:19 AM EST Urge incontinence URINE WHLKEHDAejmbmm31/10/2025 10:19 AM EST Urge incontinence ECG 12-KMBLHrbwlrf86/10/2025 10:18 AM EST Urge incontinence BASIC METABOLIC IAKKOLipckmh68/16/2023 6:48 AM EST from Last 3 Months or Most Recently Relevant to Health Maintenance Results * hCG, Urine, Qualitative (08/07/2025 7:41 AM EST)ComponentValueRef RangeTest MethodAnalysis TimePerformed AtPathologist SignatureHCG, UrineNEGATIVENEGATIVE 08/07/2025 7:54 AM ESTST DALE MEDICAL [facility] LABSpecimen (Source)Anatomical Location / LateralityCollection Method / VolumeCollection TimeReceived Time UrineUrine specimen / Rxeilsn5208/07/2025 7:41 AM EST08/07/2025 7:46 AM EST Narrative Authorizing ProviderResult TypeResult StatusDominick TORRES URINE ORDERABLESFinal ResultPerforming OrganizationAddressCity/State/ZIP CodePhone Number [facility] [address] [place] [phone] * Extra Urine Dacosta Tube (07/31/2025 10:19 AM EST)ComponentValueRef RangeTest MethodAnalysis TimePerformed AtPathologist SignatureExtra Tube08/01/2025 8:33 AM [facility] LABSpecimen (Source)Anatomical Location / LateralityCollection Method / VolumeCollection TimeReceived TimeUrineUrine specimen obtained via straight catheter / Matmhtd3007/31/2025 10:19 AM EST 07/31/2025 10:47 AM EST Narrative Authorizing ProviderResult TypeResult StatusDominick TORRES URINE ORDERABLESFinal ResultPerforming OrganizationAddressCity/State/ZIP CodePhone Number [facility] [address] [place] [address] * (ABNORMAL) Microscopic Only, Urine (07/31/2025 10:19 AM EST)ComponentValueRef RangeTest MethodAnalysis TimePerformed AtPathologist SignatureWBC, Urine>50(A) 1-5, NONE /[facility]07/31/2025 11:01 AM [facility] LABWBC Clumps, UrineRAREReference range not established. /HPF07/31/2025 11:01 AM [facility] LABRBC, Ugloh48-02(A)NONE, 1-2, 3-5 /HPF07/31/2025 11:01 AM EST [facility] LABSquamous Epithelial Cells, Urine1-9 (SPARSE) Reference range not established. /HPF07/31/2025 11:01 AM [facility] LABBacteria, Urine3+(A)NONE SEEN /HPF07/31/2025 11:01 AM [facility] LABMucus, UrineFEWReference range not established. /LPF 07/31/2025 11:01 AM [facility] LABSpecimen (Source)Anatomical Location / LateralityCollection Method / VolumeCollection TimeReceived Time UrineUrine specimen obtained via straight catheter / Iwrhqdz3407/31/2025 10:19 AM EST07/31/2025 10:47 AM EST Narrative Authorizing ProviderResult TypeResult StatusDominick TORRES URINE ORDERABLESFinal ResultPerforming OrganizationAddressCity/State/ZIP CodePhone Number [facility] [address] [place] [address] * (ABNORMAL) Urinalysis with Reflex Culture (07/31/2025 10:19 AM EST)Component ValueRef RangeTest MethodAnalysis TimePerformed AtPathologist SignatureColor, UrineYellowLight-Yellow, Yellow, Dark-Iceexi8707/31/2025 11:01 AM [facility] LABAppearance, UrineTurbid(N)Clear07/31/2025 11:01 AM [facility] LABSpecific [place], Urine1.0231.005 - 1.1993507/31/2025 11:01 AM [facility] LABpH, Urine5.55.0, 5.5, 6.0, 6.5, 7.0, 7.5, 8. 11:01 AM [facility] LABProtein, Urine20 (TRACE)NEGATIVE, 10 (TRACE), 20 (TRACE) mg/dL07/31/2025 11:01 AM [facility] LABGlucose, UrineNormalNormal mg/dL07/31/2025 11:01 AM [facility] LABBlood, Urine0.06 (1+)(A)NEGATIVE mg/dL07/31/2025 11:01 AM [facility] LABKetones, UrineNEGATIVENEGATIVE mg/dL07/31/2025 11:01 AM [facility] LABBilirubin, UrineNEGATIVENEGATIVE mg/dL 07/31/2025 11:01 AM [facility] LABUrobilinogen, UrineNormal Normal mg/dL07/31/2025 11:01 AM [facility] LABNitrite, Urine2+ (A)CEGYGCDD65/10/2025 11:01 AM [facility]SV[facility] LABLeukocyte Esterase, Sfiah362 Nahid/uL(A)EUPCSDRQ44/10/2025 11:01 AM [facility] LABSpecimen (Source)Anatomical Location / LateralityCollection Method / VolumeCollection TimeReceived TimeUrineUrine specimen obtained via straight catheter / Godkfpn3007/31/2025 10:19 AM EST07/31/2025 10:47 AM EST Narrative Authorizing ProviderResult TypeResult StatusDominick TORRES URINE ORDERABLESFinal ResultPerforming OrganizationAddressCity/State/ZIP CodePhone Number [facility] [address] [place] [address] * (ABNORMAL) Urine Culture (07/31/2025 10:19 AM EST)ComponentValueRef RangeTest MethodAnalysis TimePerformed AtPathologist SignatureUrine Culture>=100,000 CFU/mL Escherichia coli(A) MICROSCAN 08/02/2025 2:53 PM [facility] LABSpecimen (Source)Anatomical Location / Laterality Collection Method / VolumeCollection TimeReceived TimeUrineUrine specimen obtained via straight catheter / Ivbfyoz7607/31/2025 10:19 AM EST07/31/2025 11:01 AM EST Narrative OrganismAntibioticMethodSusceptibilityEscherichia coliAmpicillinMICROSCAN <=8.000 ug/ml: Susceptible Escherichia coliCefazolinMICROSCAN <=2 ug/ml: Susceptible Escherichia coliCefazolin (uncomplicated UTIs only)MICROSCAN <=2 ug/ml: Susceptible Escherichia coliPiperacillin/TazobactamMICROSCAN <=8.000 ug/ml: Susceptible Escherichia coliNitrofurantoinMICROSCAN <=32 ug/ml: Susceptible Escherichia coliTrimethoprim/SulfamethoxazoleMICROSCAN <=0.5/9.5 ug/ml: Susceptible Escherichia coliCiprofloxacinMICROSCAN <=0.250 ug/ml: Susceptible Escherichia coliLevofloxacinMICROSCAN <=0.500 ug/ml: Susceptible Escherichia coliGentamicinMICROSCAN <=2.000 ug/ml: Susceptible Authorizing ProviderResult TypeResult StatusDominick TORRES MICROBIOLOGY - GENERAL ORDERABLESFinal ResultPerforming OrganizationAddressCity/State/ZIP Code Phone Number [facility] [address] [facility] [address] [place] [address] * ECG 12 lead (07/31/2025 10:18 AM EST)ComponentValueRef RangeTest Method Analysis TimePerformed AtPathologist SignatureVentricular Lfto71PULAXHGWfjuju Ddxc77VZQMACMUN Xqoosfca515cwPFSFMYG Jthoonch12pbACJJPM Opwyotar694owOAFIYXT Calculation(Bazett)393msMUSEP Babe96dxkqnitJUEMW Ftmx94mvfvamjYOQAV Axis23 degreesMUSEQRS Oyfyy03bhkncMMRUB Vqhlz584zyOHSAG Smfzt550ulWZVTJ Zaolfk694zp MUSET Biqauo619yzFOBBXPA Njmnzojbpz730gsDPMOEftlyraz (Source)Anatomical Location / LateralityCollection Method / VolumeCollection TimeReceived Time 07/31/2025 10:39 AM EST08/04/2025 9:14 AM EST Narrative MUSE - 08/04/2025 9:14 AM EST Normal sinus rhythm Possible Left atrial enlargement Borderline ECG No previous ECGs available Confirmed by Jose A Goss ([id number]) on 08/04/2025 9:14:41 AM Procedure Note Jose A Goss MD - 08/04/2025 Normal sinus rhythm Possible Left atrial enlargement Borderline ECG No previous ECGs available Confirmed by Jose A Goss ([id number]) on 08/04/2025 9:14:41 AM Authorizing ProviderResult TypeResult StatusDominick Naidu MDECG ORDERABLESFinal ResultPerforming OrganizationAddressty/State/ZIP CodePhone Number MUSE * (ABNORMAL) Basic Metabolic Panel (10/06/2022 6:48 AM EST)ComponentValueRef RangeTest MethodAnalysis TimePerformed AtPathologist TzokczzbqHywcykm668(H)74 - 99 mg/dLST DALE [facility] OGZCdxxyj118941 - 145 mmol/LST [facility]ALE [facility] LABPotassium4.03.5 - 5.3 mmol/LST [facility]ALE [facility] MRMBvahzqcm95673 - 107 mmol/LST [facility] SVPOzcedmgrsmd3208 - 32 mmol/LST [facility] LABAnion Gap6(L)10 - 20 mmol/LST [facility] LABUrea Xstwjylt547 - 23 mg/dLST DALE MEDICAL [facility]ENTER LABCreatinine0.690.50 - 1.05 mg/dLST DALE MEDICAL [facility]ENTER LABGFR Female>90>90 mL/min/1.73m2[facility] LABComment: CALCULATIONS OF ESTIMATED GFR ARE PERFORMED USING THE 2020 CKD-EPI STUDY REFIT EQUATION WITHOUT THE RACE VARIABLE FOR THE IDMS-TRACEABLE CREATININE METHODS. https://jasn.asnjournals.org/content//ASN.3172372919 Calcium8.88.6 - 10.3 mg/dLST DALE MEDICAL [facility]ENTER LABSpecimen (Source)Anatomical Location / LateralityCollection Method / VolumeCollection TimeReceived Time 10/06/2022 6:48 AM EST10/06/2022 6:53 AM EST Narrative Authorizing ProviderResult TypeResult StatusDominick Naidu MDLAB BLOOD ORDERABLESFinal ResultPerforming OrganizationAddressCity/State/ZIP CodePhone Number [facility] [address] [place], [place] [phone] from Last 3 Months or Most Recently Relevant to Health Maintenance Insurance [address] [place] [address] [address] [place] [address] Advance Directives For more information, please contact: [phone] (Available 24 / 7) * Full Code (Latest Code Status on File) Date ActivatedDate InactivatedComments01/18/2024 9:35 AMQuestionAnswerComments Plan of Care:* Code Status Discussion Completed Decision Maker:* Patient Care Teams Team MemberRelationshipSpecialtyStart DateEnd Date Deshawn Ramirez DO [address] [place] [address] PCP - GeneralFamily Medicine02/05/24
--- OUTSIDE RECORDS SUMMARY | 2025-08-16 16:35 | XMS_ITS | Clinical Summary ---
Author Organization [facility] Address [address] [place] [address] Care Team Providers Care Entertainment Musician Name Role Phone Alexander Gallegos MD Primary Care Provider [phone] Soledad Estrella MOBILE MARKETING SPECIALIST.HUSBANDRY PERSON Unavailable [phone] Allergies Active AllergyReactionsCriticalityNoted DateCommentsAmoxicillinHivesHigh 06/17/2024iprofloxacinHives,GsyiabwGgy28/28/0713DjqgcEzvzylyijhfVpfz25/25/2008 MorphineGI YttztXqh95/05/1317Vrqctpjw-Lgqxnymsey-DwwqakthaDjmvWgw62/17/2012 Silver SulfadiazineOther: See HbqmukaoSxe19/29/2024Zinc TcwnpGciqJmf49/17/2012 Medications MedicationSigDispense QuantityRefillsLast FilledStart DateEnd DateStatus IBUPROFEN (MOTRIN ORAL) Take by mouth.Active ondansetron orally disintegrating (ZOFRAN ODT) 4 mg disintegrating tablet Take 4 mg by mouth every 8 hours as needed for nausea/vomiting.4Active cyclobenzaprine (FLEXERIL) 10 mg tablet Take 10 mg by mouth three times a day as needed.Active dulaglutide (TRULICITY) 1.5 mg/0.5 mL pen injector Inject 1.5 mg subcutaneously one time a week. 2 mL 5Active Additional Information Patient not taking.Reason: Other, Reported on 12/14/2024 cholecalciferol, vitamin D3, (VITAMIN D3 ORAL) Take by mouth.Active pregabalin (LYRICA) 75 mg capsule Indications:Chronic bilateral low back pain, unspecified whether sciatica presentTake 1 capsule by mouth three times a day for 10 days. 30 capsule 5Active Active Problems ProblemNoted DateDiagnosed DateDifficult intravenous pfqdch9212/14/2024 Assessment & Plan (12/14/2024 10:32 AM EDT): Has needed US guidance. Multiple thyroid qaflvkp2304/08/2024Neurogenic rirglnc0801/25/2024 Assessment & Plan (12/14/2024 11:24 AM EDT): Self-catheterizes. States she may have a UTI, has abnormal urine odor. Will have urine studies done at PCP office 12/20. Monocular exotropia with other noncomitancies, left eye01/14/2024Hypotropia of left eye01/14/2024Urge ppheodabxpih55/12/2024Vitamin D oauirfbdns29/03/2023 Morbid obesity with BMI of 40.0-44.9, adult05/26/2017 Assessment & Plan (12/14/2024 11:23 AM EDT): Body mass index is 43.07 kg/m??. Was on Trulicity, stopped the beginning of November. History of urinary self-iramrisdriccvvx87/05/2017 Overview (05/26/2017): ISC Tethered cord05/15/2017 Overview (05/15/2017): Added automatically from request for surgery [id number] Oezbyv2605/17/2012 Assessment & Plan (12/14/2024 11:25 AM EDT): Quit smoking 06/2024. 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 On Tramadol, Lyrica. Limited in activity due to back pain. Follows with neurology. Latex phtqnzz0205/17/2012Chronic lower back pain10/03/2004 Resolved Problems ProblemNoted DateDiagnosed DateResolved DateLumbar surgical wound fluid qcmmtkiugn714Prenatal care, subsequent rmtrujyva31/17/2012 4Pain in joint, lower legUnspecified site of sprain and Encounters DateTypeDepartmentCare MrmxEhojwmpsddx71/13/2025 Patient Msg Internal Medicine [facility] [address] [place] [address] Campaign, Ccf Schedule your Screening Mammogram Vpzikydw35/07/2025 Patient Ms Internal [facility] [address] [place] [address] Alexander Gallegos MD Activate Your Health Journey: A Supportive Approach to Weight Management 07/14/20254119Xmzpou59/14/2025 Patient [facility] [address] [place] [address] Campaign, Ccf Schedule your Screening Sefrvdboe20/14/2025Patient Outreach Internal [facility] [address] [place] [address] Alexander Gallegos MD from Last 3 Months Immunizations ImmunizationAdministration DatesNext Dueinfluenza vaccine, unspecified hheybzkwpwr46/10/2013tetanus diphtheria (Td) vaccine, adult, unspecified kfkazdkssms90/07/2011tetanus diphtheria pertussis (Tdap) vaccine, age 7+ yr (ADACEL, BOOSTRIX)02/16/2023,01/06/2013 Family History Medical HistoryRelationCommentsCancerFatherbladderHypertensionFatherIschemic Heart DiseaseFatherpeFatherpre diabetesFatherCancerMotherskinMental illness Mothermacular degenertionMotherBreast CancerPaternal GrandmotherAnesthesiaNo Family HistoryRelationStatusCommentsBrother 1AliveBrother 2AliveBrother 3Alive FatherAliveMotherAlivePaternal GrandmotherSisterAlive Social History Tobacco UseTypesPacks/DayYears UsedDateSmoking Tobacco: SrdblwIraezsiwwi799.8 Started: 2003Smokeless Tobacco: Never Tobacco Cessation:Counseling Given: Not Answered Alcohol UseStandard Drinks/WeekCommentsYes0 (1 standard drink = 0.6 oz pure alcohol)once every 6 monthsAHC UtilitiesAnswerDate RecordedIn the past 12 months has the REGISTRAT-MAPI, eMithila[employer]at, oil, or water [employer] threatened to shut off services in your home?Yes01/05/2024Social Connection and Isolation PanelAnswerDate Recorded In a typical week, how many times do you talk on the phone with family, friends, or neighbors?Twice a week01/05/2024How often do you get together with friends or relatives?Never01/05/2024How often do you attend gnosticism or cheondoism services?1 to 4 times per year01/05/2024o you belong to any clubs or organizations such as gnosticism groups, unions, fraternal or athletic groups, or school groups?Yes 01/05/2024How often do you attend meetings of the clubs or organizations you belong to?1 to 4 times per year01/05/2024re you , , , , never , or living with a partner?Lczhehaa81/16/2024UDIT-C AnswerDate RecordedQ1: How often do you have a drink containing alcohol?Monthly or less01/05/2024Q2: How many drinks containing alcohol do you have on a typical day when you are drinking?3 or Q3: How often do you have six or more drinks on one occasion?Never01/05/2024Overall Financial Resource Strain (CARDIA) AnswerDate RecordedHow hard is it for you to pay for the very basics like food, housing, medical care, and heating?Somewhat hard01/05/2024HQ-2AnswerDate RecordedPHQ-2 tvoab854Finogden [facility] center [place] of Occupational Health - Occupational Stress QuestionnaireAnswerDate RecordedDo you feel stress - tense, restless, nervous, or anxious, or unable to sleep at night because yourmind is troubled all the time - these days?Very much01/05/2024Exercise Vital SignAnswer Date RecordedOn average, how many days per week do you engage in moderate to strenuous exercise (like a brisk walk)?0 days01/05/2024On average, how many minutes do you engage in exercise at this level?0 min01/05/2024Hunger Vital Sign AnswerDate RecordedWithin the past 12 months, you worried that your food would run out before you got the money to buymore.Sometimes true01/05/2024Within the past 12 months, the food you bought just didn't last and you didn't have money to get more.Never true01/05/2024RAPARE - TransportationAnswerDate RecordedIn the past 12 months, has lack of transportation kept you from medical appointments or from getting medications?No01/05/2024In the past 12 months, has lack of transportation kept you from meetings, work, or from getting things needed for daily living?No01/05/2024Housing Stability Vital SignAnswerDate RecordedIn the last 12 months, was there a time when you were not able to pay the mortgage or rent on time?No01/05/2024In the last 12 months, how many places have you lived?In the last 12 months, was there a time when you did not have a steady place to sleep or slept in ashelter (including now)?No 01/05/2024rea Deprivation IndexAnswerDate RecordedNational Score (1-100), lower number is lower kzde867412/01/2023State Score (1-10), lower number is lower risk4 12/01/2023ata from: https://www.neighborhoodatlas.medicine.[employer].edu/. Last address used for mzxnxlpoo[address] regnantCommentsNoSex and Gender InformationValueDate RecordedSex Assigned at BirthNot on fileLegal UjmDduocs79/02/2012 9:49 AM ESTGender IdentityNot on fileSexual OrientationNot on file Last Filed Vital Signs Vital SignReadingTime TakenCommentsBlood Qxrxylfw032/7306/ 3:49 PM EDT Jyjvj719903/17/2025 3:49 PM KRBTcszrgvcmbq78.4 ??C (99.4 ??F)03/17/2025 3:49 PM EDTRespiratory Cyxo329805/19/2024 1:33 PM EDTOxygen Tvobqdszuo92%03/17/2025 3:49 PM EDTInhaled Oxygen Concentration--Wxjuaa150.3 kg (282 lb 13.6 oz)03/17/2025 3:49 PM NOEPdpbwa900.2 cm (5' 7 )03/17/2025 3:49 PM EDTBody Mass Index44.3 03/17/2025 3:49 PM EDT Plan of Treatment DateTypeDepartmentCare Team (Latest Contact Info)Yuzsvmhfjcm79/02/2025 4:20 PM ESTOffice Visit Endocrinology [address] [place] [address] Sarah Dave MD [address] [place] [address] My thyroid is causing more problemsHealth MaintenanceDue DateLast DoneComments Hepatitis C Kqvvuhorf09/06/1998Hepatitis B Vaccine (1 of 3 - 19+ 3-dose series) 12/25/1998HPV Vaccine (1 - 3-dose SCDM series)12/25/2006Mammogram Screening /02/2023, 05/19/2015CT Ukfgzpbbgbzf75/06/2025Cologuard (FIT-DNA) 12/25/20248327Cnfmoafxdtb19/06/2025Colorectal Cancer Fjizntsda87/06/2025Fecal Occult Blood12/25/2024Lipid Ukajzqqah96/04/20062760Ubhhnqfxxubdw57/06/2025ovid- 19 Vaccine ( season)2025Influenza Vaccine (#1)2025 09/30/2012nxiety Ikytldkxk85/epression Eejvfxyzm13/03/2025 06/23/2024ervical Cancer Cwgdbmhkk15, 05/11/2015, 02/03/2013, Additional history existsDiabetes Ykwpkwldd02, 11/24/2024, 09/08/2024, Additional history existsDTaP,Tdap,Td Vaccine (3 - Td or Tdap) , 01/06/2013, 04/27/2011HIV OozmuhzzdSvgcsytbt28/27/2012, 11/15/2007 Procedures Procedure NamePriorityDate/TimeAssociated DiagnosisCommentsBASIC METABOLIC PANEL Yhfbtxf6607/14/2025 8:39 AM EDT Multiple thyroid nodules CBC + MZHMHojwfbv06/24/2025 8:39 AM EDT Multiple thyroid nodules MAMMOGRAM DIGITAL SCREENING BILAT (AG,EU,HL,MM,SP)05/19/2015 10:09 AM EDT PAP FLUID CERVICAL ZBWLEMGTSTjtutqb01/21/2015 10:48 AM EDT Pap smear for cervical cancer screening HIV 1/O/2 SCREEN (EU,FV,HL,JAY,MM,SP)05/17/2012 4:13 PM EDT LIPID PANEL, VRCUAXV1104/28/2006 3:10 PM EDT from Last 3 Months or Most Recently Relevant to Health Maintenance Results * COMPLETE BLOOD COUNT AND DIFFERENTIAL (07/14/2025 8:39 AM EDT)ComponentValue Ref RangeTest MethodAnalysis TimePerformed AtPathologist SignatureWBC7.883.70 - 11.00 k/uL07/14/2025 2:38 PM EDTCLEVELAND [facility]IN[facility] MAIN LABRBC4.923.90 - 5.20 m/uL07/14/2025 2:38 PM EDTCLEVEL[facility] MAIN TRYOmcpckpztf11.211.5 - 15.5 g/dL07/14/2025 2:38 PM EDTCLEVELAND CLINIC MAIN ABHWqfwhqowuj52.036.0 - 46.0 % 07/14/2025 2:38 PM EDTCLEVELAND CLINIC MAIN OZAQFJ26.480.0 - 100.0 fL 07/14/2025 2:38 PM [facility] PAZHKP83.926.0 - 34.0 pg07/14/2025 2:38 PM EDTCSHELBY [facility] KUGCJMX55.030.5 - 36.0 g/dL07/14/2025 2:38 PM EDTCSHELBY MEMOR[facility] MAIN LABRDW-CV12.511.5 - 15.0 %07/14/2025 2:38 PM EDT [facility] MA[facility] LABPlatelet Wnbkq078712 - 400 k/uL07/14/2025 2:38 PM EDT [facility] MAIN LABComment:No clot detected.MPV10.79.0 - 12.7 fL 07/14/2025 2:38 PM EDTCSHELBY MEMOR[facility] MAIN LABNeutrophils %65.8%07/14/2025 2:38 PM EDTCSHELBY MEMOR[facility] MAIN LABAbs Neut5.181.45 - 7.50 k/uL07/14/2025 2:38 PM EDTCSHELBY [facility] MAIN LABLymphocytes %26.5%07/14/2025 2:38 PM EDT [facility] MA[facility] LABAbs Lymph2.091.00 - 4.00 k/uL07/14/2025 2:38 PM EDT [facility] MA[facility] LABMonocytes %5.2%07/14/2025 2:38 PM [facility]TCRE[facility] LABAbs Mono0.41<0.87 k/uL07/14/2025 2:38 PM EDTCRE[facility] LAB Eosinophils %1.5%07/14/2025 2:38 PM EDTCGR[facility] MA[facility] LABAbs Eosin0.12 <0.46 k/uL07/14/2025 2:38 PM EDTCRE[facility] MA[facility] LABBasophils %0.4% 07/14/2025 2:38 PM [facility]TCRE[facility] LABAbs Baso0.03<0.11 k/uL 07/14/2025 2:38 PM EDTCGRAND LA[facility] MA[facility] LABImmature Granulocytes %0.6% 07/14/2025 2:38 PM EDTCRE[facility] LABAbs Immature Gran0.05<0.10 k/uL 07/14/2025 2:38 PM EDTCSHELBY [facility] MAIN LABNRBC0.0/100 WBC07/14/2025 2:38 PM [facility] MAIN LABAbsolute nRBC<0.01<0.01 k/uL07/14/2025 2:38 PM EDTR[facility] MAIN LABDiff HlouPfow92/24/2025 2:38 PM [facility] MA[facility] LABSpecimen (Source)Anatomical Location / LateralityCollection Method / VolumeCollection TimeReceived TimeBloodBLOOD SPECIMEN / Unknown Venipuncture / Fwucilt1507/14/2025 8:39 AM EDT1 8:40 AM EDT Narrative Authorizing ProviderResult TypeResult StatusJoyce Thiago Fam MDLABORATORY Final ResultPerforming OrganizationAddressCity/State/ZIP CodePhone Number [facility] [address] * (ABNORMAL) BASIC METABOLIC PANEL (07/14/2025 8:39 AM EDT)ComponentValueRef RangeTest MethodAnalysis TimePerformed AtPathologist UadjujxewTmfjlkh248(H)74 - 99 mg/dL07/14/2025 4:28 PM [facility] MAIN LABComment: The [place] Diabetes Association (ADA) provides guidance for cutoff values for fasting glucose andrandom glucose. The ADA defines fasting as no [...] Standards of Medical Care in Diabetes 2016, [place] Diabetes Association. Diabetes Care. 2016.39(Suppl 1). ROL984 - 21 mg/dL07/14/2025 4:28 PM EDTR[facility] MAIN LABCreatinine0.69 0.58 - 0.96 mg/dL07/14/2025 4:28 PM [facility] JKZNaihjs446678 - 144 mmol/L1 4:28 PM [facility] LABPotassium3.93.7 - 5.1 mmol/L1 4:28 PM [facility] BOTOemwklok48387 - 107 mmol/L 07/14/2025 4:28 PM [facility] GBXFJ47727 - 30 mmol/L1 4:28 PM [facility] LABAnion Olz733 - 15 mmol/L1 4:28 PM [facility] MA[facility] LABCalcium, Total9.28.5 - 10.2 mg/dL07/14/2025 4:28 PM [facility] LABEstimated Glomerular Filtration Uflg971>=60 mL/min/1.73m 07/14/2025 4:28 PM [facility] MAIN LABComment:Estimated Glomerular Filtration Rate (eGFR) is calculated using the 2020 CKD-EPI creatinine equation. This equation utilizes serum creatinine, sex, and age as parameters. The creatinine assay has traceable calibration to isotope dilution-mass spectrometry. Refer to KDIGO guidelines for clinical interpretation. In patients with unstable renal function, e.g. those with acute kidney injury, the eGFRmay not accurately reflect actual GFR.Specimen (Source)Anatomical Location / LateralityCollection Method / VolumeCollection TimeReceived TimeBloodBLOOD SPECIMEN / UnknownVenipuncture / Vqygzvp7607/14/2025 8:39 AM EDT1 8:40 AM EDT Narrative Authorizing ProviderResult TypeResult StatusJoyce Thiago Fam MDLABORATORY Final ResultPerforming OrganizationAddressCity/State/ZIP CodePhone Number [facility] [address] * MAMMOGRAM DIGITAL SCREENING BILAT (EU,HL,MM,SP) (05/19/2015 10:09 AM EDT) ComponentValueRef RangeTest MethodAnalysis TimePerformed AtPathologist SignatureTranscription* * *Final Report* * * DATE OF EXAM: May 19 2015 10:09AM ?? FWW ?? [id number] ??- ??MAMMOGRAM DIGITAL SCREENING SHAHIDA ??/ PROCEDURE REASON: SCREENING * * * * Physician Interpretation * * * * #[id number] - MAMMOGRAM DIGITAL SCREENING SHAHIDA BILATERAL DIGITAL SCREENING MAMMOGRAM WITH CAD: 05/19/2015 HISTORY: Screening/ Screening Mammogram - patient reports NO breast symptoms /This is the patient's baseline mammogram. ?? RESULT: TECHNIQUE: ??The study was acquired using full field digital technology and interpreted from soft copy. Current study was also evaluated with a Computer Aided Detection (CAD). ?? There are no prior films available for comparison. ??This is the patient's baseline examination. ?? The tissue of both breasts is heterogeneously dense. This may lower the sensitivity of mammography. ?? There is an asymmetry in the right breast middle depth superior region seen on the mediolateral oblique view only. ?? There is an asymmetry in the left breast sub-areolar depth central to the nipple seen on the mediolateral oblique view only. ?? No other significant masses or calcifications are seen in either breast. IMPRESSION: INCOMPLETE: NEEDS ADDITIONAL IMAGING EVALUATION The asymmetry in the right breast middle depth superior region seen on the mediolateral oblique view only is indeterminate. ??Additional views with possible ultrasound are recommended. ?? The asymmetry in the left breast sub-areolar depth central to the nipple seen on the mediolateral oblique view only is indeterminate. ??Additional views with possible ultrasound are recommended. ?? Jad Perez M.D. ? lp/yassine:05/21/2015 17:40:54 ?? Dental Technologist: Babs MCGRATH([place])(Johana), [facility] letter sent: Additional Imaging Needed ?? Mammogram BI-RADS: 0 Indeterminate Ladies Underwear Operator: MARYAM Transcribe Date/Time: May 21 2015 ??5:40P Dictated by : JAD PEREZ MD This examination was interpreted and the report reviewed and electronically signed by: JAD PEREZ MD On May 21 2015 ??5:40PM Principal Cribber: JAD WEBB RADIOLOGYAnatomical Region LateralityModalityOtherSpecimen (Source)Anatomical Location / Laterality Collection Method / VolumeCollection TimeReceived Time05/19/2015 10:09 AM EDT Narrative Authorizing ProviderResult TypeResult StatusAshraf -[facility] MDRADIOLOGY REGIONAL Final Result * PAP FLUID CERVICAL SCREENING (05/11/2015 10:48 AM EDT)ComponentValueRef Range Test MethodAnalysis TimePerformed AtPathologist SignatureTranscription Specimen originated from [facility] Specimen #: [id number] Submitting Physician: Jil Gallegos M.D. SPECIMEN SUBMITTED A: CERVICAL,SCREENING, FLUID FINAL DIAGNOSIS A. CERVICAL,SCREENING, FLUID Satisfactory for interpretation. Negative for intraepithelial lesion or malignancy. This specimen has been analyzed by the ThinPrep Imaging System, an automated imaging and review system, which assists the laboratory in evaluating cells on ThinPrep Pap tests. ??Following automated imaging, selected melendez from every slide are reviewed by a bowling ball finisher. AMANDA Palacios(ASCP) ? (Electronic Signature) CLINICAL DATA ROUTINE EXAM Date of Last Menstrual Period: 04/22/2015(Injection) Additional Testing: Reflex HPV testing for ASCUS STAINS A: ??CERVICAL,SCREENING, FLUID ? THIN PREP LUMBER STRAIGHTENED Maya Camacho M.D., Outside Machinist Helper : 1980 (Age: 34) F Date of Report: 05/24/2015 Date of Procedure: 05/11/2015 Date of Receipt: 05/14/2015 Submitted by: Jil Gallegos M.D. Location: FLAB Diagnostic interpretation performed at [facility], [address] [place] [address]. The Pap Smear is a screening test for cervical cancer. False negative results occur with all screening tests, emphasizing the need for rescreening at recommended intervals, and clinical correlation.[facility] PATHOLOGYSpecimen (Source)Anatomical Location / LateralityCollection Method / VolumeCollection TimeReceived TimeSpecimen from uterine cervix (specimen) CERVICAL / Sbsrkiv0105/11/2015 10:48 AM EDT05/14/2015 11:27 AM EDT Narrative Authorizing ProviderResult TypeResult StatusJil TaiBeau MDCYTOLOGYFinal ResultPerforming OrganizationAddressCity/State/ZIP CodePhone Number [facility] [address] [place] [address] * HIV 1/O/2 SCREEN (EU,FV,HL,LK,JAY,MM,SP) (05/17/2012 4:13 PM EDT)ComponentValue Ref RangeTest MethodAnalysis TimePerformed AtPathologist SignatureHIV 1 & 2 Ab (EIA)Non ReactiveNon ReactiveFAIRVIEW LABORATORYComment: If results are indeterminate or otherwise inconsistent with an individual's clinical presentation or risk profile for HIV infection a repeat specimen is requested. A repeat specimen is also recommended for any individual identified positive for the first time. (NOTE) HIV Information: ??[place] Rev. Code 3701.243(E): This information has been disclosed to you from confidential records protected from disclosure by state law. You shall make no further disclosure of this information without the specific, written, and informed release of the individual to whom it pertains, or as otherwise permitted by state law. A general authorization for the release of medical or other information is not sufficient for the purpose of the release of HIV test results or diagnoses. Test performed by: [facility], [address] [place] [address] [place] [id number] Specimen (Source)Anatomical Location / LateralityCollection Method / Volume Collection TimeReceived Time05/17/2012 4:13 PM EDT05/17/2012 4:18 PM EDT Narrative Authorizing ProviderResult TypeResult StatusJil Gallegos MDLABORATORY REGIONAL Final ResultPerforming OrganizationAddressty/State/ZIP CodePhone Number [facility] [address] [place] [address] * LIPID PANEL BASIC (04/28/2006 3:10 PM EDT)ComponentValueRef RangeTest Method Analysis TimePerformed AtPathologist SignatureCholesterol, Dllri252<200 mg/dL [facility] NTLXLAIOGPTpgogjdpjxws418<150 mg/dLFAIRVIEW LABORATORYHDL Cholesterol 4635 - 85 mg/dLFAIRVIEW LABORATORYLDL Olohmbwvop862<130 mg/dLFAIRVIEW LABORATORYSpecimen (Source)Anatomical Location / LateralityCollection Method / VolumeCollection TimeReceived Time04/28/2006 3:10 PM EDT Narrative Authorizing ProviderResult TypeResult StatusGeorge PartalLABORATORYFinal Result Performing OrganizationAddressCity/State/ZIP CodePhone Number [facility] [address] [place] [address] from Last 3 Months or Most Recently Relevant to Health Maintenance Insurance * Guarantor: Karlene Tom TypeRelation to PatientDate of BirthPhone Billing AddressSelf [id number] [address] [place] [id number] Care Teams Team MemberRelationshipSpecialtyStart DateEnd Date Alexander Gallegos MD [address] [place] [address] PCP - GeneralInternal Medicine04/26/25 Soledad Estrella, MOBILE MARKETING SPECIALIST.HUSBANDRY PERSON [address] [place] [address] Care PartnerFamily Medicine04/27/25
--- OUTSIDE RECORDS SUMMARY | 2025-08-16 16:35 | XMS_ITS | Encounter Summary ---
Author Organization [facility] Address [address] [place] [address] Phone Care Team Providers Care Vp Medical Name Role Phone Deshawn Ramirez DO Primary Care Provider [phone] Encounter Details DateTypeDepartmentCare Team (Latest Contact Info)Kalauimusvh27/17/2025Travel Social History Tobacco UseTypesPacks/DayYears UsedDateSmoking Tobacco: FormerCigarettes [...] DateEnd Date Deshawn Ramirez DO [address] [place] [address] PCP - GeneralFamily Medicine02/05/24documented as of this encounter
--- OUTSIDE RECORDS SUMMARY | 2025-08-16 16:35 | XMS_ITS | Clinical Summary ---
Author Organization [facility] [employer] [facility] Address [id number] [place] [address] Care Team Providers Care Needle Leader Name Role Phone Brian Mccray Primary Care Provider [phone] Allergies Active AllergyReactionsCriticalityNoted DateCommentsCiprofloxacinItching 06/23/20230933ZcxsjEbocenzbunxIiqb02/29/2001 anaphylaxis MorphineGI QevytojdkntTqo38/05/4541Jjayjzhu-Jtyjhkcbpf-QfxzahyuiQgsnNoe 10/07/2011Silver UlzfcuskorrdDtopElg34/11/2011Zinc WmmqtAtpnWte60/17/2012 Medications MedicationSigDispense QuantityRefillsLast FilledStart DateEnd DateStatus ibuprofen (ADVIL,MOTRIN) 200 mg tablet Take 3 tablets (600 mg total) by mouth 3 (three) times a day.Active pregabalin (LYRICA) 75 mg capsule Take 1 capsule (75 mg total) by mouth 3 (three) times a day.Active traMADoL (ULTRAM) 50 mg tablet Take 1 tablet (50 mg total) by mouth 3 (three) times a day.Active onabotulinumtoxinA (BOTOX) 100 unit recon soln Inject into the appropriate muscle once.Active tiZANidine (ZANAFLEX) 4 mg tablet Take 1 tablet (4 mg total) by mouth in the morning and at bedtime.Active tjeqwbel-lpde-CM-calcium &mins (THERAGRAN-M) 9 mg iron-400 mcg tablet Take 1 tablet by mouth in the morning.Active cholecalciferol, vitamin D3, 50,000 units tablet Take 1 tablet (50,000 Units total) by mouth once a week.Active Active Problems ProblemNoted DateDiagnosed DateVitamin D tfahxpnuez66/03/2353Nyvwst98/03/2023 Lumbar surgical wound fluid pxadpwnfee85/27/2017Morbid oyoxiev6905/26/2017Latex wrfxoci2505/17/2012Pain in joint involving lower leg09/18/2008Low back pain 10/03/2004Spina bifida rpsegyc8310/03/2004 Family History Medical HistoryRelationNameCommentsCancerFatherbladderHeart attackFatherHeart diseaseFatherHypertensionFatherCancerMotherskinHypotensionMotherCancerPaternal GrandfatherboneBreast cancerPaternal GrandmotherDementiaPaternal Grandmother RelationNameStatusCommentsFatherAliveMotherAlivePaternal GrandfatherDeceased Paternal GrandmotherDeceased Social History Tobacco UseTypesPacks/DayYears UsedDateSmoking Tobacco: Every DayCigarettes Smokeless Tobacco: Never Tobacco Cessation:Ready to Q uit: Yes; Counseling Given: Not Answered Alcohol UseStandard Drinks/WeekCommentsNot Currently0 (1 standard drink = 0.6 oz pure alcohol)PHQ-2AnswerDate RecordedTotal Qjino5480/03/2023ChildcareAnswerDate HoisvvlhLuykgohuaLzrmbrs61/13/2019EmploymentAnswerDate RecordedEmploymentUnknown 03/03/2019Hunger ScreeningAnswerDate RecordedWithin the past 12 months we worried whether our food would run out before we got money to buy more.Sometimes True02/24/2023Within the past 12 months the food we bought just didn't last and we didn't have money to get more.Sometimes True3Purpose - LifeAnswer Date RecordedPurpose and direction in ckvnKgqhqvb79/11/2021CommentsNoSex and Gender InformationValueDate RecordedSex Assigned at BirthNot on fileLegal QpyGuksab14/10/2019 1:35 PM ESTGender IdentityNot on fileSexual OrientationNot on file Last Filed Vital Signs Vital SignReadingTime TakenCommentsBlood Gsbuttcv606/8210/11/2022 1:21 PM EDT Sxzrs4476 12:28 PM EDTTemperature--Respiratory Kggu120402/24/2023 12:28 PM EDTOxygen Coxkriooim060%02/24/2023 12:28 PM EDTInhaled Oxygen Concentration-- Dwqoby390.9 kg (282 lb)06/23/2023 1:21 PM XXTRgjozt964.2 cm (5' 7 )06/23/2023 1:21 PM EDTBody Mass Index44.171 1:21 PM EDT Plan of Treatment Health MaintenanceDue DateLast DoneCommentsTobacco Zkugimnnh09/06/1992Mammogram 2019Adult BMI Ibzxfihji753Depression Kvbfmudkz06/03/2024 06/23/2023Influenza Opadwle48/06/2013Pap Smear, 06/23/2023, 07/31/2021, Additional history existsDTaP,Tdap and Td Vaccines (3 - Td or Tdap), 01/06/2013, 04/27/2011 Medical Devices Not on file Procedures Procedure NamePriorityDate/TimeAssociated DiagnosisCommentsPAP SMEARRoutine 06/23/2023 6:23 AM EDT Cervical smear, as part of routine gynecological examination from Last 3 Months or Most Recently Relevant to Health Maintenance Results * Pap Smear (06/23/2023 6:23 AM EDT)Specimen (Source)Anatomical Location / LateralityCollection Method / VolumeCollection TimeReceived Time06/23/2023 6:23 AM EDT1 6:24 AM EDT Narrative COPATH - 06/27/2023 8:16 AM EDT [facility] ? [facility] ? [address] ? [place] [address] ? Gynecologic Cytology Consultation ? Patient Name:WENDI TOM:1980 (Age: 42)Gender:FTaken:06/23/2023Reported:06/27/2023hysician(s):Shelbie Shaver APRN- CNPCopy To: Rec. #:[id number]: #[id number] Final Cytologic Interpretation ThinPrep Pap Test (Cervical): Satisfactory for evaluation. A transformation zone component is present. NEGATIVE FOR INTRAEPITHELIAL LESION OR MALIGNANCY. pjt/06/27/2023 Interpretation performed at [facility], [address] [place] [address], License number: [id number]. Electronically Signed Out By ?AMANDA Rincon(ASCP) Date of Last Menstrual Period: ? 06/09/23 Other Clinical Conditions: Z01.419 Plaster Whittler exam wo/abn findings Source of Specimen ??ThinPrep Pap Test (Cervical) ? Thin Prep Pap (ONCOLOGY RN) Fee Code(s): ?? G0145 Authorizing ProviderResult TypeResult StatusShelbie Dahl CARD LACER-RADIATOR MECHANIC PATHOLOGY/CYTOLOGY ORDERABLESFinal ResultPerforming OrganizationAddress City/State/ZIP CodePhone Number COPATH from Last 3 Months or Most Recently Relevant to Health Maintenance Insurance Care Teams Team MemberRelationshipSpecialtyStart DateEnd Brian Mccray PA [address] [place] [address] [facility]CP - [facility]03/12/23
[2025-08-16] MEDS: KETOROLAC TROMETHAMINE 30 MG/ML VIAL IM (16:36)
[2025-08-16] MEDS: ONDANSETRON 4 MG RAPDIS TABLET SL ×2 (16:36→22:08)
--- OUTSIDE RECORDS SUMMARY | 2025-08-16 16:36 | XMS_ITS | CCD ---
Author Organization [facility] Informat ion Partnership [facility] Care Team Providers Care Computer Education Teacher Name Role Phone Astrid Myers Unavailable MD Liya Peña Attending Provider [phone] House, DO Hess Primary Care Provider [phone] MD Simone Warren Attending Provider [phone] MD Liya Peña Attending Provider House, DO Hess Primary Care Provider James, Dr. Juanita Gifford Primary Care Tom ilkaren Lopes, Dr. Dominick Hawkins Referring Unayisel Lopes, Dr. Dmoinick Hawkins Attending Unavai lable Evangelista, Dr. Dominick Hawkins Admitting Unavai labbrian LEIVA [...] KATZ Consulting Unavailable WAYNE ROBLES Consulting Unavailable HOUSE, DR HESS Primary Care Unavailable DOMINICK LOPES MD Attending Unavailable HOUSE SRJUANITA Primary Care Unavailable Stanley, [facility]- Shon Gonzalez Primary Care Provider [phone] DO Felipe Lovell Emergency Provider [phone] James Sr., Juanita HERNANDEZ Unavailable James Sr., Juanita HERNANDEZ Primary Care Prov ider [place] Sr., Juanita HERNANDEZ Unavailable [phone] Pepe Forrester MD, [facility] Prov ider Pepe Forrester MD, [facility] Prov ider [place] Juanita HERNANDEZ Primary Care Provider PEPE FORRESTER, [facility] Primary Care Unav ailable NORMA LYMAN Referring Unavailable [place] Juanita HERNANDEZ Primary Care Provider HENRIQUE RODRÍGUEZ Attending Unavailable JUANITA SHARMA Primary Care Unavailable [place] Sr., Juanita HERNANDEZ Unavailable [phone] KAYLENE DALEY Referring Unavailable BOO LUIS, [facility] Primary Care Unav ailable ELDA DANIELSON Referring Unavailable BOO LUIS, [facility] Primary Care Unav ailable BOO LUIS, AIDAN Referring Unav ailable BOO LUIS, [facility] Primary Care Unav ailable Das GOLD LEAF GILDER.ORACLE WEBCENTER CONSULTANT, Kaylene Unavailable Clay GOLD LEAF GILDER.ORACLE WEBCENTER CONSULTANT, Tracie L Unavailable [phone] Clay GOLD LEAF GILDER.VENTURA, Tracie L Primary Care Provi dani Pepe Forrester MD, [facility] ider Unavailable Das GOLD LEAF GILDER.Kaylene WHITEHEAD Unavailable Unavail able Clay GOLD LEAF GILDER.Katharine WHITEHEADcy L Unavailable Cinthia GOLD LEAF GILDERPepe Del Rosario Attending Provider NON STAFF Primary Care Provider UnavailRo Driscoll MD Attending Provider Ro Wetzel Admitting Unavailable Ro Wetzel Attending Unavailable Pepe Vicente Attending Unavailable Pepe Vicente Admitting Unavailable PEPE FORRESTER, [facility] Primary Care Unav ailable BRAYAN DAVE Referring Unavailable MARIA LUISA HUBER Attending Unavailable BOO LUIS, AIDAN Referring Unav ailable BRAYAN DAVE Attending Unavailable PEPE MCBRIDEQUEZ, [facility] Primary Care Unav ailable BOO LUIS, [facility] Primary Care Unav ailable BOO LUIS, AIDAN Attending Unav ailable BOO LUIS, AIDAN Attending Unav ailable BOO LUIS, AIDAN Primary Care Unav ailable VO, BRI ALVARADO Referring Unavailable DAHBAR, ALEXANDER Primary Care Unavailable DAHBAR, ALEXANDER Attending Unavailable TRACIE WILLIAMSON Primary Care Unavailable BOO LUIS, AIDAN Primary Care Unav ailable BOO LUIS, AIDAN Attending Unav ailable BOO LUIS, AIDAN Primary Care Unav ailable VO, BRI ALVARADO Referring Unavailable BOO LUIS, AIDAN Primary Care Unav ailable VO, BRI ALVARADO Referring Unavailable BOO LUIS, AIDAN Primary Care Unav ailable BOO LUIS, AIDAN Primary Care Unav ailable TENZIN, BRAYAN Referring Unavailable BOO LUIS, [facility] Primary Care Unav ailable VO, BRI ALVARADO Attending Unavailable JAILENE DAVE Referring Unavaila ble DOMINICK LOPES Admitting Unavailable DOMINICK LOPES Attending Unavailable JUANITA SHARMA Primary Care Unavailable JUANITA SHARMA Primary Care Unavailable DOMINICK LOPES Referring Unavailable Allergies Allergy ClassificationReported Allergen(s)Allergy TypeDate of OnsetReaction(s) Facilitybacitracin / neomycin / polymyxin b (3 sources)bacitracin / neomycin / polymyxin bDrug Vreotgk66-87-6796Jhya [facility] (3 sources)LatexSubstance Qvsrfgx15-37-2175XkdtwruubmiQpndckspx ClinicOpioid Agonists (3 sources)MorphineDrug Zswstdb11-94-4965CV UpsetUniversity Hospitals Ahu[facility] Work Phone: Quinolones (antibiotic) (3 sources)CiprofloxacinDrug Sddsgmo47-56-1826Qmjzk, ItchingUniversity Hospitals Ahuja Medical Center Sulfonamides (antibiotic) (2 sources)silver sulfADIAZINEDrug Usognbu87-71-1415Zoggy: See [facility] HospitalZinc Oxide (3 sources)Zinc OxideDrug Vihdrsz08-51-6899TschInifoattr Clinic (4 sources)Latex Tube/ConnectorDrug oqcnjkx28-12-2840jsiwdyemydiEpmiwlptu Regional Medical Center (20 sources)Latex; Translations: [latex]Allergy to wnyywvabg28-46-2045 [facility] SystemComment on above:H&P states allergy to latex Tube/connector, tubing insert for [employer] [place] set (ref) [phone] reads DEHP or natural Rubber latex are not part of the material formulation. Patient verbalizes having had multiple surgies with IV's in the past. Spoke with Mary Lou in pharmacy. (1 source)Amoxicillin / ClavulanateDrug Xbfsmbp73-02-6895[facility] Repository (1 source)GestronolDrug Ggkmybs57-93-1450CqmPark[facility] Repository (4 sources)Morphine; Translations: [MORPHINE]Drug Yzgnisp98-23-3065PrmParkview Health Repository (20 sources)Ciprofloxacin; Translations: [CIPROFLOXACIN]Drug Inaknyj90-55-1805 Itching, [facility] (20 sources)bacitracin / neomycin / polymyxin b; Translations: [JSWGIWZH-EGAAFALKUE-USBSUKRMF]Drug Fuqekhc02-66-6356GwkoCohscyuhm Clinic (20 sources)MorphineDrug Oydfhbi84-89-3785QVFostoria City Hospital Work Phone: (20 sources)Zinc Oxide; Translations: [ZINC OXIDE]Drug Xxxqqxh44-93-1273Rmqw [facility] (20 sources)silver sulfADIAZINE; Translations: [SILVER SULFADIAZINE]Drug Allergy 40-19-5211Hjblw, Other: See [facility] Work Phone: (20 sources)Amoxicillin; Translations: [AMOXICILLIN]Drug Wfotwlc79-82-3439Ndqym [facility] Medications Current Medications MedicationDrug Class(es)DatesSig (Normalized)Sig (Original)acetaminophen 500 mg oral tablet (20 sources)Start: 16-95-8747ptzt 2 tablets by mouth every six hours for pain acetaminophen (Tylenol) 500 mg tablet Indications: Post-operative pain Take 2 tablets (1,000 mg) bymouth every 6 hours if needed for mild pain (1 - 3). 30 tablet 01/18/2024 ActiveStart: 81-19-0270aiwh 2 capsules by mouth every six hours as neededStart: 06-19-2017 End: 08-20-2326woqv 1 tablet by mouth every six hours as neededacetaminophen (TYLENOL) 325 mg tablet Take 1 tablet by mouth every 6 hours as needed. 0 06/19/2017 04/08/2024 Discontinued (Discontinued by Patient)Comment on above: Take 1 tablet by mouth every 6 hours as needed.acetaminophen 325 mg / HYDROcodone bitartrate 5 mg oral tablet (1 source)Opioid AgonistStart: 36-84-5538cscv 1 tablet by mouth every six hours as needed1 tablet, oral, Every 6 hours PRN, pain severe (7-10), first line, Starting on Thu01/18/24 at 1134,If ordered PRN for pain, nurse is permitted to administer this medication for higher pain scores based on patient preference? Yesalbuterol 0.83 mg/ml inhalation solution (1 source)beta2-Adrenergic AgonistStart: .5 mg, nebulization, Once as needed, wheezing, Starting on Thu01/18/24 at 1133, For 1 dose, Recovery (only) calcium chloride 0.0014 meq/ml / potassium chloride 0.004 meq/ml / sodium chloride 0.103 meq/ml / sodium lactate 0.028 meq/ml injectable solution (1 source)Start: 64-73-2925gszl 100 mL intravenously every cvtw001 mL/hr, intravenous, Continuous, Starting on Thu01/18/24 at 1200, Recovery (only) cefdinir 300 mg oral capsule (11 sources)Cephalosporin AntibacterialStart: 03-86-8363gztx 1 capsule by mouth every twelve hourscefdinir (OMNICEF) 300 mg capsule Take 1 capsule by mouth every 12 hours. 06/17/2024 Activecephalexin 500 mg oral capsule (4 sources)Cephalosporin AntibacterialStart: 63-31-0088qggu 1 capsule by mouth twice dailyStart: 40-50-4962gbdj 1 capsule by mouth every eight hoursCephalexin 500 MG 1 capsule Orally three times a day for 10 day(s) Aug, Active cholecalciferol, vitamin D3, (VITAMIN D3 ORAL) (10 sources)cholecalciferol, vitamin D3, (VITAMIN D3 ORAL) Take by mouth. Active cyclobenzaprine hydrochloride 10 mg oral tablet (20 sources)Muscle RelaxantStart: 06-12-2017 End: 26-02-4146dmpuassmozosefn (FLEXERIL) 10 mg tablet Take 1 tablet by mouth as needed for muscle spasm. 60 tablet 1 07/08/2024 ActiveComment on above:Take 1 tablet by mouth three times daily as needed for Muscle Spasm.dexamethasone 1 mg/ml / tobramycin 3 mg/ml ophthalmic suspension (2 sources)Aminoglycoside Antibacterial, CorticosteroidStart: 04-26-2024 End: 61-56-3318tuhj 1 drop(s) into the eye(s) three times dailytobramycin- dexAMETHasone (TOBRADEX) 0.3-0.1 % ophthalmic suspension Use 1 Drop in both eyes three times a day for 7 days. 0 04/26/2024 05/03/2024 ActivediphenhydrAMINE (1 source)Histamine-1 Receptor AntagonistStart: 52-85-163059.5 mg, intravenous, Once as needed, itching, allergic reaction, Starting on Thu01/18/24 at 1133, For 1 dose, Recovery (only)0.5 ml dulaglutide 3 mg/ml auto-injector (20 sources)GLP-1 Receptor AgonistStart: 09-08-2024 End: 70-21-3183hikduu 1.5 mg by subcutaneous injection every weekdulaglutide (TRULICITY) 1.5 mg/0.5 mL pen injector Inject 1.5 mg subcutaneously one time a week. 2 mL 2 10/31/2024 ActiveStart: 09-08-2024 End: 93-37-3435hkfldr 0.75 mg by subcutaneous injection every weekdulaglutide (TRULICITY) 0.75 mg/0.5 mL pen injector Inject 0.75 mg subcutaneously one time a week. 2 mL 09/08/2024 10/31/2024 Discontinued (Course of therapy completed) erythromycin 0.005 mg/mg ophthalmic ointment (2 sources)Macrolide, Macrolide AntimicrobialStart: 04-26-2024 End: 13-15-6177fcqrjampiffz (ROMYCIN) 5 mg/gram (0.5 %) ophthalmic ointment Use 1 application in both eyes three times a day for 7 days. 0 04/26/2024 05/03/2024 Active1 ml hydrALAZINE hydrochloride 20 mg/ml injection (1 source)Arteriolar VasodilatorStart: mg, intravenous, Administer over 2 Minutes, Every 30 min PRN, high blood pressure, systolic bloodpressure greater than 180 mmHg and heart rate less than 60 BPM, Starting on Thu01/18/24 at 1133, For 2 doses, Recovery (only)0.5 ml HYDROmorphone hydrochloride 1 mg/ml prefilled syringe (1 source)Opioid AgonistStart: .5 mg, intravenous, Every 5 min PRN, pain severe (7-10), first line, Starting on Thu01/18/24 at 1133, Recovery (only), Max total of 4 mg regardless of dose.ibuprofen 400 mg oral tablet (20 sources)Nonsteroidal Anti-inflammatory DrugStart: 27-31-3428sjed 1 tablet by mouth twice dailyStart: 31-14-3692ztoi 3 tablets by mouth every twenty-four hours as neededibuprofen 200 mg tablet Take 3 tablets (600 mg) by mouth once daily as needed. 03/09/2023 ActiveIBUPROFEN (MOTRIN ORAL) Take by mouth. Active IBUPROFEN (MOTRIN ORAL) Take by mouth. 0 ActiveComment on above:Take by mouth.iv contrast (will be provided with radiology test) (1 source)Start: 04-05-2024 End: 13-61-9267almlig 1 dose intravenously once, then inject 1 dose intravenously onceiv contrast (will be provided with radiology test) Inject 1 Each intravenously one time only for [address] Neck W IVCON No IV access, insert saline lock prior to the sedation, infusion, injection for imaging exam. Discontinue saline lock post exam. If Pt. has a central line or IVAD, may access foradministration according to line specific nursing protocol. Once exam is complete flush line and de-access according to line specific nursing protocol in the CT contrast administration guidelines link. 1 Each 0 04/05/2024 04/05/2024 Activelabetalol hydrochloride 5 mg/ml injectable solution (1 source)beta-Adrenergic BlockerStart: mg, intravenous, Administer over 1 Minutes, Once as needed, systolic blood pressure greater than 180 mmHg, dystolic blood pressure greater than 100 mmHg and heart rate greater than 60 BPM, Startingon Thu01/18/24 at 1133, For 1 dose, Recovery (only)metoclopramide 10 mg oral tablet (9 sources)Dopamine-2 Receptor AntagonistStart: 02-22-2024 End: 14-17-5874mtkb 1 tablet by mouth three times dailymetoclopramide HCl (REGLAN) 10 mg tablet Indications: Nausea Take 1 tablet by mouth three times a day. 90 tablet 0 02/22/2024 03/23/2024 Activeomeprazole 20 mg delayed release oral capsule (20 sources)Proton Pump InhibitorStart: 06-23-2024 End: 02-92-3255hhau 1 capsule by mouth once dailyomeprazole (PRILOSEC) 20 mg capsule Indications: RUQ pain Take 1 capsule by mouth once daily. 90 capsule 3 07/04/2024 06/29/2025 ActiveStart: 02-22-2024 End: 10-42-6228ddjg 1 capsule by mouth once dailyomeprazole (PRILOSEC) 20 mg capsule Indications: Heartburn Take 1 capsule by mouth once daily. 30 capsule 0 02/22/2024 04/08/2024 Discontinued (Discontinued by Patient)ondansetron 4 mg disintegrating oral tablet (20 sources)Serotonin-3 Receptor AntagonistStart: 85-62-2458lexh 1 tablet by mouth every eight hours as neededondansetron orally disintegrating (ZOFRAN ODT) 4 mg disintegrating tablet Take 4 mg by mouth every 8 hours as needed for nausea/vomiting. 06/17/2024 ActiveStart: 03-18-2024 End: 41-57-0341wkwastempoe (PF) 8 mg injection (ZOFRAN)Start: 03-14-2024 End: 41-71-5897wgnazcrfbnm (PF) 8 mg injection (ZOFRAN)Start: mg, intravenous, Once as needed, nausea/vomiting, first line, Starting on Thu01/18/24 at 1133, For 1 dose, Recovery (only), When administering via IV Push, administer over 3-5 minutes.oxyCODONE hydrochloride 5 mg oral tablet (1 source)Opioid AgonistStart: 46-59-1470dhpc 1 tablet by mouth every four hours as needed5 mg, oral, Every 4 hours PRN, pain mild (1-3), first line, Starting on Thu01/18/24 at 1133, Recovery (only), When able to take oral medications., If ordered PRN for pain, nurse is permitted to administer this medication for higher pain scores based on patient preference? Yesphenazopyridine hydrochloride 200 mg oral tablet (3 sources)Start: 95-36-7923paaz 1 tablet by mouth three times daily as needed for muscle spasmsphenazopyridine (Pyridium) 200 mg tablet Indications: Post- operative pain Take 1 tablet (200 mg) bymouth 3 times a day as needed for bladder spasms. 10 tablet 01/18/2024 ActiveStart: 64-13-7644gpba 200 mg by mouth three times daily at msiiqdvl179 mg, oral, 3 times daily with meals, First dose on Thu01/18/24 at 1215, May discolor urine (orange).prednisoLONE acetate 10 mg/ml ophthalmic suspension (1 source)CorticosteroidStart: 05-04-2024 End: 77-54-9129yizluusiSRGF acetate (PRED FORTE) 1 % ophthalmic suspension Use 1 Drop in both eyes three times a day for 7 days. 5 mL 0 05/04/2024 05/11/2024 Activepregabalin 75 mg oral capsule (20 sources)Start: 79-42-2006Titel: 09-12-2024 End: 92-59-4794afzm 1 capsule by mouth three times dailypregabalin (LYRICA) 75 mg capsule Indications: Chronic bilateral low back pain, unspecified whether sciatica present Take 1 capsule by mouth three times a day for 30 days. 90 capsule 02/22/2025 ActiveStart: 05-02-2024 End: 63-60-8150bmwe 1 capsule by mouth three times dailypregabalin (LYRICA) 75 mg capsule Indications: Chronic bilateral low back pain, unspecified whether sciatica present Take 1 capsule by mouth three times a day for 56 days. 84 capsule 1 07/04/2024 ActiveStart: 03-29-2024 End: 84-18-3525idcb 1 capsule by mouth three times dailypregabalin (LYRICA) 75 mg capsule Indications: Chronic bilateral low back pain, unspecified whether sciatica present Take 1 capsule by mouth three times a day for 28 days. 84 capsule 0 03/29/2024 04/26/2024 ActiveStart: 12-22-2023 End: 28-70-5699uurd 1 capsule by mouth three times dailypregabalin (LYRICA) 75 mg capsule Indications: Chronic bilateral low back pain, unspecified whether sciatica present Take 1 capsule by mouth three times a day for 28 days. 84 capsule 0 02/22/2024 ActiveStart: 06-10-2022 End: 13-03-3402syic 1 capsule by mouth three times dailyPregabalin (Lyrica) 50 mg Capsule Discontinued 50 MG PO Three times daily June 10, 2022 12:00am June 05, 2025 4:22pmLyrica ActiveComment on above:Take 75 mg by mouth three times a day.promethazine (Phenergan) 6.25 mg in sodium chloride 0.9% 50 mL IV (1 source)Start: .25 mg, intravenous, Administer over 15 Minutes, Once as needed, Nausea/vomiting, second line, Starting on 01/18/24 at 1133, For 1 dose, Recovery (only)simethicone 125 mg chewable tablet (11 sources)Start: 59-80-7442ucxh 1 tablet by mouth three times daily as needed Simethicone 125 mg chewable tablet Indications: RUQ pain Take 1 tablet by mouth three times a day as needed (bloating). 60 tablet 1 06/23/2024 Active sulfamethoxazole 800 mg / trimethoprim 160 mg oral tablet (3 sources)Dihydrofolate Reductase Inhibitor Antibacterial, Sulfonamide AntimicrobialStart: 07-45-7223nyqv 1 tablet by mouth twice dailytraMADol hydrochloride 50 mg oral tablet (20 sources)Opioid AgonistStart: 06-10-2022 End: 21-54-1394moct 1 tablet by mouth three times dailytraMADol HCl Active Comment on above:Take 50 mg by mouth three times daily.Walker (ULTRA-LIGHT ROLLATOR) misc (20 sources)Start: 55-39-7254Ppohms (ULTRA-LIGHT ROLLATOR) misc 1 Units as needed. Rollator with seat 1 Each 06/12/2017 ActiveStart: 95-55-9942Ppwkyj (ULTRA-LIGHT ROLLATOR) misc 1 Units as needed. Rollator with seat 1 Each 0 06/12/2017 ActiveComment on above:1 Units as needed. Rollator with seat Completed/Discontinued Medications MedicationDrug Class(es)DatesSig (Normalized)Sig (Original)amoxicillin 875 mg oral tablet (1 source)Penicillin-class AntibacterialStart: 43-01-7422jjne 1 tablet by mouth every eight hoursAmoxicillin 875 MG 1 tablet Orally every 8 hrs for 10 day(s) Feb, Not-Takingascorbic acid 100 mg oral tablet (4 sources)Vitamin C End: 74-82-1845sxzm 1 tablet by mouth once dailyAscorbic Acid (VITAMIN C) 100 mg tablet Take 100 mg by mouth once daily. 0 01/06/2024 DiscontinuedComment on above:Take 100 mg by mouth once daily.ciprofloxacin 500 mg oral tablet (4 sources)Quinolone AntimicrobialStart: 06-05-2025 End: 39-54-2817yewg 1 tablet by mouth twice dailyCiprofloxacin Hcl (Cipro) 500 mg tablet Discontinued 500 MG PO Twice daily 03 04June 05, 2025 12:00am June 05, 2025 4:56pmStart: 01-18-2024 End: 92-11-0367ybgq 1 tablet by mouth twice dailyciprofloxacin (Cipro) 500 mg tablet Indications: Post-operative pain Take 1 tablet (500 mg) by mouth 2 times a day for 3 days. 6 tablet 01/18/2024 01/21/2024 Activefluticasone propionate 0.05 mg/actuat metered dose nasal spray (4 sources)CorticosteroidStart: 05-18-2023 End: 86-39-5369Cgigvezvrvg Propionate (Flonase Allergy Relief) 50 mcg/actuation spray,suspension Discontinued 2 SPRAY INTRANASAL Daily May 18, 2023 12:00am November 20, 2023 1:50pmgabapentin 400 mg oral capsule (4 sources)Anti-epileptic AgentStart: 06-12-2017 End: 22-51-8563xfaz 1 capsule by mouth three times dailygabapentin (NEURONTIN) 400 mg capsule Take 1 capsule by mouth three times daily. 90 capsule 3 201601/06/2024 DiscontinuedComment on above:Take 1 capsule by mouth three times daily.ketamine 65 mg in NaCl 0.9% 64.5 mL (KETALAR) (5 sources)Start: 03-18-2024 End: 96-57-3711xnmdxajl 65 mg in NaCl 0.9% 64.5 mL (KETALAR)Start: 03-17-2024 End: 22-87-6820pvcpyeqq 65 mg in NaCl 0.9% 64.5 mL (KETALAR)Start: 03-16-2024 End: 24-91-7498grvvwrqn 65 mg in NaCl 0.9% 64.5 mL (KETALAR)Start: 03-15-2024 End: 70-22-2261lcokymlh 65 mg in NaCl 0.9% 64.5 mL (KETALAR)Start: 03-14-2024 End: 64-77-8347zmxazfsw 65 mg in NaCl 0.9% 64.5 mL (KETALAR)ketotifen 0.25 mg/ml ophthalmic solution (2 sources)Histamine-1 Receptor InhibitorStart: 05-25-2024 End: 16-59-2479qkospdjgi fumarate (ALAWAY) 0.025 % (0.035 %) ophthalmic solution Use 1 Drop in both eyes two timesa day. 5 mL 2 05/25/2024 06/23/2024 Discontinued (Course of therapy completed)5 ml midazolam 1 mg/ml injection (4 sources)BenzodiazepineStart: 03-15-2024 End: 64-70-8577lxyowtoih (PF) 2 mg injection (VERSED)mineral oil 0.425 mg/mg / petrolatum 0.568 mg/mg ophthalmic ointment (4 sources)Start: 05-04-2024 End: 21-34-2354Uqynh Petrolatum-Mineral Oil (LACRI-LUBE) 56.8-42.5 % oint Use 1 application in both eyes three times a day. 3.5 g 1 05/04/2024 06/23/2024 Discontinued (Discontinued by Patient)Multivitamins with Minerals cap (4 sources) End: 42-93-1416Wdxkgkyiakqze with Minerals cap Take by mouth. 0 01/06/2024 DiscontinuedMultivitamins with Minerals cap Take by mouth. 0 ActiveComment on above:Take by mouth.nitrofurantoin, macrocrystals 25 mg oral capsule (4 sources)Nitrofuran Antibacterial End: 23-53-3204iyecotvpdbsqhe (MACRODANTIN) 25 mg capsule Take 10 mg by mouth as needed. 0 01/06/2024 DiscontinuedComment on above:Take 10 mg by mouth as needed.nitrofurantoin, macrocrystals 25 mg / nitrofurantoin, monohydrate 75 mg oral capsule (20 sources)Nitrofuran AntibacterialStart: 03-23-2024 End: 55-41-8976ekasjddawdmsyq monohydrate and macrocrystal (MACROBID) 100 mg capsule Take 1 capsule by mouth as needed. 03/23/2024 06/23/2024 Discontinued (Course of therapy completed)Start: 01-01-2024 End: 60-31-3440txxe 1 capsule by mouth twice dailynitrofurantoin monohydrate and macrocrystal (MACROBID) 100 mg capsule Indications: Acute UTI Take 1capsule by mouth two times a day for 5 days. 10 capsule 0 01/25/2024 01/30/2024 Active Rygrkfbi-To-Yqm-Fe-FA tab (4 sources)Start: 09-16-2018 End: 59-65-4933kvdl 1 tablet by mouth once dailyPrenatal Lduygnye-Fq-Hfd-Fe-FA tab Take 1 tablet by mouth once daily. 30 tablet 11 09/16/2018 01/06/2024 DiscontinuedStart: 04-47-7411vxlp 1 tablet by mouth once dailyPrenatal Kxuegjyf-Qu-Gsu-Fe-FA tab Take 1 tablet by mouth once daily. 30 tablet 11 09/16/2018 ActiveComment on above:Take 1 tablet by mouth once daily.1000 ml sodium chloride 9 mg/ml injection (5 sources)Start: 03-14-2024 End: 56-80-4574ZkDd 0.9% iv bolus 250 mLtiZANidine 4 mg oral tablet (9 sources)Central alpha-2 Adrenergic AgonistStart: 03-09-2023 End: 36-93-9442ssnr 1 tablet by mouth every twenty-four hours as needed tiZANidine (ZANAFLEX) 4 mg tablet Take 4 mg by mouth at bedtime as needed (for msucle cramps.). 0 03/09/2023 02/22/2024 Discontinued (Course of therapy completed)topiramate 25 mg oral tablet (20 sources)Start: 02-22-2024 End: 12-03-1378lzdr 1-2 tablets by mouth once daily at bedtimetopiramate (TOPAMAX) 25 mg tablet Indications: Chronic daily headache Take 1-2 tablets by mouth daily at bedtime. 60 tablet 1 02/22/2024 06/23/2024 Discontinued (Course of therapy completed) Problems Active Problems Problem ClassificationProblemDateDocumented DateEpisodic/ChronicAbdominal pain (4 sources)Right upper quadrant pain; Translations: [Right upper quadrant pain] Onset: [id number] disorders (1 source)Adjustment disorder with mixed anxiety and depressed mood; Translations: [Adjustment disorder with mixed anxiety and depressed mood] 04-88-5300ApfndnyZarxprkgqicbss/social admission (8 sources)Patient encounter status; Translations: [Persons encountering health services in other specified circumstances]72-35-3681VbrorzbvFxwclsr disorders (4 sources)Anxiety disorder, unspecified; Translations: [Mixed anxiety and depressive disorder]Onset: 626985-15-8423QttghlgZnidfezhg and vision defects (3 sources)Strabismic amblyopia of left eye; Translations: [Strabismic amblyopia, left eye]88-60-8987BoondwahUwnwzrtlq of lipid metabolism (3 sources)Pure hypercholesterolemia, unspecified; Translations: [Mixed hyperlipidemia]Onset: 880400-50-7125ImiqlozX Codes: Struck by; against (1 source)Striking against or struck by other objects, initial encounter; Translations: [STRIKING AGNST/STRUCK OTH OBJ INIT]Onset: 57-86-7203Aluesiod Genitourinary symptoms and ill-defined conditions (20 sources)Urge incontinence; Translations: [Urge incontinence of urine]Onset: 68-42-9982XflmhnmEjvynoreigblm symptoms and ill-defined conditions (7 sources)Dysuria; Translations: [Dysuria]Onset: 09-05-2021 Resolved: 05-22-9572LrelkufoEswpzsws; including migraine (1 source)Chronic daily headache; Translations: [Chronic daily headache] 00-86-1066PbbdisvyDqpiuysdavbvb and screening for infectious disease (2 sources)Encounter for immunization; Translations: [Patient encounter status] Onset: 879260-86-0720KbbabikfTjnobdn and fatigue (2 sources)Fatigue; Translations: [Chronic fatigue, unspecified]Onset: 256418-42-1138CvscgznDokqmcdukk (except that caused by tuberculosis or sexually transmitted disease) (1 source)Adhesive arachnoiditis; 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, unspecified] 18-36-3875ViujcenrOpde disorders (1 source)Mood disorder; Translations: [Unspecified mood [affective] disorder] 19-42-0767OpwpecyFksy disorders (1 source)Mood disorders; Translations: [Depression, unspecified]Onset: 80-67-3263Colxqe and vomiting (1 source)Nausea; Translations: [Nausea]20-40-8472JguwsttoEpckpxi system congenital anomalies (20 sources)Spina bifida, unspecified; Translations: [Spina bifida]Onset: 996202-53-9258LzhpaqxFrrcygc system congenital anomalies (8 sources)H/O: musculoskeletal disease; Translations: [Personal history of 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]Onset: 822380-39-6505QyoadwysRdaloxvkytu deficiencies (20 sources)Vitamin D deficiency; Translations: [Vitamin D deficiency, unspecified]Onset: 112387-31-6430PreqsjnWolq wounds of extremities (4 sources)Laceration without foreign body, left foot, initial encounter; Translations: [LACERATION W/O FB LT FOOT INITIAL]Onset: 50-52-6930HweudoahSuyim diseases of bladder and urethra (4 sources)Neuromuscular dysfunction of bladder, unspecified; Translations: [Neuromuscular dysfunction of bladder, unspecified]Onset: 30-89-3347WludykwCzxll diseases of bladder and urethra (2 sources)Overactive bladder; Translations: [Overactive bladder]Onset: 11-52-5367KlsuydfOoqqw diseases of bladder and urethra (1 source)Other specified disorders of bladder; Translations: [Other specified disorders of bladder]Onset: 06-08-7475KxmlrdwDlvxb diseases of bladder and urethra (20 sources)Neurogenic bladder; Translations: [Neuromuscular dysfunction of bladder, unspecified]Onset: 895866-76-4553PcceybyYtqgd gastrointestinal disorders (1 source)Heartburn; Translations: [Heartburn]37-87-0820ZppwwplmWknep liver diseases (1 source)Steatosis of liver; Translations: [Fatty (change of) liver, not elsewhere classified]18-62-3304VjihdjoHgnjf lower respiratory disease (1 source)Respiratory obstruction; Translations: [Other specified respiratory disorders]55-85-1398UqhqsfeoJyhbc nervous system disorders (7 sources)Chronic pain syndrome; Translations: [Chronic pain syndrome] 30-94-0990NofcsvwMjizg nervous system disorders (3 sources)Chronic pain; Translations: [Other chronic pain]50-01-7663Ustmzev Other nervous system disorders (3 sources)Other chronic pain; Translations: [Chronic bilateral low back pain, unspecified whether sciatica present]Onset: 58-63-8534FzrrzssUztme nervous system disorders (1 source)Chronic pain syndrome; Translations: [Chronic pain syndrome]Onset: 40-87-4841VznviygVnxpu nervous system disorders (1 source)Chronic low back pain; Translations: [Other chronic pain]12-20-2024 ChronicOther nervous system disorders (1 source)Postoperative pain ; Translations: [Other acute postprocedural pain] 12-03-0280JqmmmkrlOqhls nutritional; endocrine; and metabolic disorders (7 sources)Morbid obesity; Translations: [Morbid (severe) obesity due to excess calories]Onset: 502874-00-6452WzmxdrpHcigi nutritional; endocrine; and metabolic disorders (3 sources)Obesity; Translations: [Obesity, unspecified]Onset: 01-18-2024 97-04-5802XgagppfPdfzd nutritional; endocrine; and metabolic disorders (20 sources)Body mass index 40+ - severely obese; Translations: [Morbid (severe) obesity due to excess calories]Onset: 577184-71-3161VbwvjmrCvnid nutritional; endocrine; and metabolic disorders (3 sources)Morbid (severe) obesity due to excess calories; Translations: [Morbid obesity with BMI of 40.0-44.9, adult ([facility])]Onset: 38-61-7782FpipvnbTmjxy nutritional; endocrine; and metabolic disorders (2 sources)Body mass index (BMI) 40.0-44.9, adult; Translations: [Morbid obesity with BMI of 40.0-44.9, adult ([facility])]Onset: 14-01-9303OsdczedYbhxf screening for suspected conditions (not mental disorders or infectious disease) (3 sources)Radiology result abnormal; Translations: [Abnormal findings on diagnostic imaging of other parts ofmusculoskeletal system]89-18-0763Upfypagv Otitis media and related conditions (4 sources)Acute transudative otitis media; Translations: [Other acute nonsuppurative otitis media, unspecified ear]19-31-2042SkmpjlkrAcawyrzc codes; unclassified (8 sources)H/O Spinal surgery; Translations: [Other specified postprocedural states]44-97-4273PdxfdlukFstvghmy codes; unclassified (1 source)Other specified postprocedural states; Translations: [H/O laminectomy] Onset: 80-05-9667MmdsciugMezppysk codes; unclassified (1 source)Nicotine-filled electronic cigarette user; Translations: [Tobacco use] 44-01-6376MyqtkkewKowvvjmf codes; unclassified (1 source)Chronic qevy38-03-1815ZlciwtmhPmkrnxkka-zvgbayv disorders (20 sources)Nicotine dependence, unspecified, uncomplicated; Translations: [Smoker]Onset: 924189-84-4956ZgbedvxIrjmhke disorders (20 sources)Non-toxic uninodular goiter; Translations: [Nontoxic single thyroid nodule]Onset: 385573-84-9403LvjiykePivysltlomzf (1 source)UNVACCINATED FOR COVID-19; Translations: [UNVACCINATED FOR COVID-19] Onset: 33-11-1982Xqlhwlnrwcgj (1 source)Chronic bilateral low back pain, unspecified whether sciatica present; Translations: [Chronic bilateral low back pain, unspecified whether sciatica present]Onset: 32-90-3031Iwycnzs tract infections (9 sources)Acute cystitis with hematuria; Translations: [Other cystitis without hematuria]Onset: 09-05-2021 Resolved: 83-86-2290KdjvrgumRylel infection (1 source)COVID-19; Translations: [COVID-19]Onset: 08-28-2022 Past or Other Problems Problem ClassificationProblemDateDocumented DateEpisodic/ChronicAllergic reactions (20 sources)Latex allergy status; Translations: [Allergy to latex]Onset: 714434-53-5242XfikwbpyWncawnflyenos of surgical procedures or medical care (20 sources)Surgical wound finding; Translations: [Other complications of procedures, not elsewhere classified,initial encounter]Onset: 06-17-2017 Resolved: 761255-15-1916MewnmrxgPfutvwxg mellitus without complication (2 sources)Hyperglycemia; Translations: [Hyperglycemia, unspecified]Onset: 492896-34-9884JlplrxqzFwndd eye disorders (20 sources)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; Translations: [Monocular exotropia with other noncomitancies, left eye]Onset: 401752-44-5812IbirnbgnLrksc eye disorders (20 sources)Hypotropia of left eye; Translations: [Vertical strabismus, left eye]Onset: 935576-16-2613SrpasptyNuzji injuries and conditions due to external causes (20 sources)Injury of musculoskeletal system; Translations: [Other injury of unspecified body region, initial encounter]Onset: 10-25-2003 Resolved: 098257-59-8563GtzzmhneJsdgx non-traumatic joint disorders (20 sources)Pain in lower limb; Translations: [Pain in unspecified knee]Onset: 09-18-2008 Resolved: 509157-96-9207BuhuwiupVzsmb and delivery including normal (20 sources) care status; Translations: [Encounter for supervision of other normal , unspecified trimester]Onset: 06-07-2012 Resolved: 624637-95-1124WfexbpcrFnpvbulr codes; unclassified (3 sources)Chills (without fever); Translations: [CHILLS WITHOUT FEVER]Onset: 42-67-0895NfaydbdmXueebcrf codes; unclassified (20 sources)Past history of procedure; Translations: [Other specified health status]Onset: 077581-03-6081QyesiwlcYnsnsymg codes; unclassified (11 sources)Difficult venous access; Translations: [Other specified health status]Onset: 871613-77-8530EgxlgpzcHtjalasiedz; intervertebral disc disorders; other back problems (20 sources)Chronic low back pain; Translations: [Chronic bilateral low back pain, unspecified whether sciaticapresent]Onset: 842215-35-1423Rcufpqdz Results Test NameValueInterpretationReference RangeFacilityBacteriaon 26-35-3826Olvtysdu identified Cx Nom (U)Test: Urine Culture Specimen Source: Straight Catheter Specimen Type: Urine Specimen Date: 07/31/2025 1019 Result Date: 08/02/2025 145 Result Status: Final result Abnormal: Yes Resulting Lab: [facility] [address] [place] [address] CULTURE >=100,000 CFU/mL Escherichia coli (Abnormal) SUSCEPTIBILITY Escherichia coli METHOD MICROSCAN AMPICILLIN <=8.000 ug/ml Susceptible CEFAZOLIN <=2 ug/ml Susceptible CEFAZOLIN (UNCOMPLICATED UTIS ONLY) <=2 ug/ml Susceptible CIPROFLOXACIN <=0.250 ug/ml Susceptible GENTAMICIN <=2.000 ug/ml Susceptible LEVOFLOXACIN <=0.500 ug/ml Susceptible NITROFURANTOIN <=32 ug/ml Susceptible PIPERACILLIN/TAZOBACTAM <=8.000 ug/ml Susceptible TRIMETHOPRIM/SULFAMETHOXAZOLE <=0.5/9.5 ug/ml SusceptibleAbnoAdena Regional Medical CenterComment on above:Performed By: #### 630-4 #### JOANA Faust ([id number]) [facility] ([facility]) [address] [place] [address] 61323VBF 12-LEADon 00-54-5212BGC 12-LEADVentricular Rate 67 Atrial Rate 67 P-R Interval 152 QRS Duration 86 Q-T Interval 372 QTC Calculation(Bazett) 393 P Santo 62 R Santo 21 T Santo 23 QRS Count 11 Q Onset 219 P Onset 143 P Offset 196 T Offset 405 QTC Fredericia 386 Diagnosis Normal sinus rhythm Possible Left atrial enlargement Borderline ECG No previous ECGs availableMille Lacs Health System Onamia HospitalUrinalysis complete W Reflex Culture panel (U)on 63-23-7571Rbcsnatqpc (U)TurbidNormalClearHenry County HospitalComment on above:Performed By: #### 95461-1 #### AGUSTIN MUKHERJEE ([id number]) [facility] ([facility] [id number] [place] [address] 35[address]Njblxpcmj (U) [Mass/Vol]NegativeNormalMarymount HospitalComment on above:Performed By: #### 84367-1 #### AGUSTIN MUKHERJEE ([id number]) [facility] ([facility]) [address] [place] [address] 69199Wntxb (U)YellowNormalLight-Yellow, Yellow, Dark-Yellow [facility] HospitalComment on above:Performed By: #### 22082-0 #### AGUSTIN MUKHERJEE ([id number]) [facility] ([facility]) [address] [place] [address] 24013Btjecly Auto test strip (U) [Mass/Vol]NormalNormalNormal [facility] HospitalComment on above:Performed By: #### 14430-8 #### AGUSTIN MUKHERJEE ([id number]) [facility] ([facility]) [address] [place], [place] [address]Ijukrri (U) [Mass/Vol]NegativeNormalNEGMercy Health West HospitalComment on above:Performed By: #### 62308-1 #### AGUSTIN MUKHERJEE ([id number]) [facility] ([facility]) [address] [place], [place] [address]Hupaawrfg esterase Auto test strip Ql (U)500 Nahid/uLAbnormal NEGATIVEHenry County HospitalComment on above:Performed By: #### 78685-3 #### AGUSTIN MUKHERJEE ([id number]) [facility] ([facility]) [address] [place] [address] 90419Qtmipag Auto test strip Ql (U)2+AbnormalNEGATIVEUnAvita Health System Galion HospitalComment on above:Performed By: #### 07107-0 #### AGUSTIN MUKHERJEE ([id number]) [facility] ([facility]) [address] [place] [address] 07280gX (U)5.5 [pH]Normal5.0, 5.5, 6.0, 6.5, 7.0, 7.5, 8.0 [facility] HospitalComment on above:Performed By: #### 35184-8 #### AGUSTIN MUKHERJEE ([id number]) [facility] ([facility]) [address] [place] [address] 04253Zfeioyl (U) [Mass/Vol]20 (TRACE)NormalNEGATIVE, 10 (TRACE), 20 (TRACE)Henry County HospitalComment on above:Performed By: #### 86837-3 #### AGUSTIN MUKHERJEE ([id number]) [facility] ([facility]) [address] [place] [address] 32263IIK (U) [#/Vol]0.06 (1+)AbnormalNEGATIVEUnAvita Health System Galion HospitalComment on above:Performed By: #### 10571-4 #### AGUSTIN MUKHERJEE ([id number]) [facility] ([facility]) [address] [place] [address] 532[address]Abesicha gravity (U) [Rel density]1.481Jaqirk3.005-1.035 [facility] HospitalComment on above:Performed By: #### 65116-3 #### AGUSTIN MUKHERJEE ([id number]) [facility] ([facility]) [address] [place] [address] 58447Svddeofbrelj (U) [Mass/Vol]NormalNormalNormalUniversHolzer HospitalComment on above:Performed By: #### 69995-7 #### AGUSTIN MUKHERJEE ([id number]) [facility] ([facility]) [address] [place], [place] [address]Wsxdpqwnui microscopic panel Auto Ql (U)on 76-51-2697Okygetzc Auto (Urine sed) [#/Area]3+ /HPFAbnormalNONE [facility] HospitalComment on above:Performed By: #### 97486-2 #### AGUSTIN MUKHERJEE ([id number]) [facility] ([facility]) [address] [place], [place] [address]Kicoodnizk cells.squamous Auto (Urine sed) [#/Area]1-9 (SPARSE)NormalReference range not established.[facility] County HospitalComment on above:Performed By: #### 22200-2 #### AGUSTIN MUKHERJEE ([id number]) [facility] ([facility]) [address] [place], [place] [address]Ldecvaeay clumps Auto (Urine sed) [#/Area]RARENormalReference range not established.[facility] County HospitalComment on above:Performed By: #### 57812-8 #### AGUSTIN MUKHERJEE ([id number]) [facility] ([facility]) [address] [place] [address] 79747Zxcbm Auto (Urine sed) [#/Area]FEWNormalReference range not established.[facility] HospitalComment on above: Performed By: #### 43206-5 #### AGUSTIN MUKHERJEE ([id number]) [facility] ([facility]) [address] [place] [address] 17385AGV Auto (Urine sed) [#/Area]11-20AbnormalNONE, 1-2, 3-5 [facility] HospitalComment on above:Performed By: #### 94763-1 #### AGUSTIN MUKHERJEE ([id number]) [facility] ([facility]) [address] [place], [place] [address]OYG Auto (Urine sed) [#/Area]>48Zpglstxl2-2, [facility] – JacksonComment on above:Performed By: #### 19690-3 #### AGUSTIN MUKHERJEE ([id number]) [facility] ([facility]) [address] [place], [place] [address]Basic metabolic 2000 panelon 16-60-3380Sviii gap [Moles/Vol]12 mmol/LNormal8-15Marymount HospitalCompromedica [facility] on above:Order Comment: Specimen Type: BLOOD SPECIMENOrdering Facility: [facility] Address:[address] [place], [place] [address]Performed By: #### 39268-2 ####[facility] LABCLIA [id number] [place] [address] [place] AMERICACalcium [Mass/Vol]9.2 mg/dLNormal8.5-10.2CGlenbeigh HospitalCompromedica coldwater regional hospital on above:Order Comment: Specimen Type: BLOOD SPECIMENOrdering Facility: [facility] Address:[address] [place], [place] [address]Performed By: #### 44261-3 ####[facility] LABCLIA [id number] [place] [address] [place] AMERICAChloride [Moles/Vol]104 mmol/HUjrfjx40-597NiftadajlSumma Health [facility] on above: Order Comment: Specimen Type: BLOOD SPECIMENOrdering Facility: [facility] Address:[address] [place], [place] [address]Performed By: #### 29676- 2 ####[facility] LABCL[facility] [id number] [place] [address] [place] AMERICACO2 [Moles/Vol]23 mmol/OZgystr89-76OxtmfhlbcSumma Health Wadsworth - Ritt[facility] Medical Center on above:Order Comment: Specimen Type: BLOOD SPECIMENOrdering Facility: [facility] Address:[address] [place], [place] [address]Performed By: #### 74901-8 ####[facility] LABCL[facility] [id number] [place] [address] [place] Creatinine [Mass/Vol]0.69 mg/dLNormal0.58-0.96[facility] on above:Order Comment: Specimen Type: BLOOD SPECIMENOrdering Facility: [facility] Address:[address] [place] [address] Performed By: #### 68927-3 ####[facility] LABCLIA [id number] [place] [address] [place] AMERICAeGFRcr SerPlBld CKD-EPI 5704736 mL/min/1.73m???Normal>=60[facility] on above: Order Comment: Specimen Type: BLOOD SPECIMENOrdering Facility: [facility] Address:[address] [place], [place] [address]Result Comment: Estimated Glomerular Filtration Rate (eGFR) is calculated using the 2020 CKD-EPI cre atinine equation. This equation utilizes serum creatinine, sex, and age as parameters. The creatinine assay has traceable calibration to isotope dilution- mass spectrometry. Refer to KDIGO guidelines for clinical interpretation. In patients with unstable renal function, e.g. those with acute kidney injury, the eGFR may not accurately reflect actual GFR.Performed By: #### 02229-9 ####[facility] LABCLIA [id number] [place] [address] [place] AMERICAGlucose [Mass/Vol]106 mg/bIBcil01-49NyaludcuwSumma Health Wadsworth - Ritt[facility] Medical Center on above:Order Comment: Specimen Type: BLOOD SPECIMENOrdering Facility: [facility] Address:[address] [place], [place] [address]Result Comment: The [place] [employer] (ADA) provides guidance for cutoff values for fasting glucose and random glucose. The ADA defines fasting as no caloric intake for at least 8 hours. Fasting plasma glucose results between 100 to 125 mg/dL indicate increased risk for diabetes (prediab etes). Fasting plasma glucose results greater than or [...] Standards of Medical Care in Diabetes 2016, [place] [employer]. Diabetes Care. 2016.39(Suppl 1).Performed By: #### 39571-1 ####[facility] LABCL[facility] [id number] [place] [address] [place] AMERICAPotassium [Moles/Vol]3.9 mmol/LNormal3.7-5.1CLake County Memorial [facility] on above:Order Comment: Specimen Type: BLOOD SPECIMENOrdering Facility: [facility] Address:[address] [place], [place] [address]Performed By: #### 83690-4 ####[facility] LABCLIA [id number] [place] [id number] [place] AMERICASodium [Moles/Vol]139 mmol/JGzqoby349-254MglmfxozfSumma Health Wadsworth - [facility] Center on above: Order Comment: Specimen Type: BLOOD SPECIMENOrdering Facility: [facility] Address:[address] [place], [place] [address]Performed By: #### 08057- 2 ####[facility] LABIA [id number] [place] [id number] [place] AMERICAUrea nitrogen [Mass/Vol]15 mg/dLNormal7-21 [facility] on above:Order Comment: Specimen Type: BLOOD SPECIMENOrdering Facility: [facility] Address:[address] [place], [place] [address]Performed By: #### 35658-1 ####[facility] LABIA [id number] [place] [id number] [place] OF AMERICACB W Auto Differential panel (Bld)on 96-70-4653Hcwehdcju (Bld) [#/Vol]0.03 10*3/uL Normal<0.11CLake County Memorial Hospital [facility] on above:Order Comment: Specimen Type: BLOOD SPECIMENOrdering Facility: [facility] Address:[address] [place], [place] [address]Performed By: #### 28140-2 ####[facility] LABIA [id number] [place] [address] [place] AMERICABasophils/100 WBC (Bld)0.4 %NormalSumma Health Wadsworth - Rittman Medical Center on above:Order Comment: Specimen Type: BLOOD SPECIMENOrdering Facility: [facility] Address:[address] [place], [place] [address]Performed By: #### 10998-5 ####[facility] LABCLIA [id number] [place] [address] [place] AMERICADifferential cell count method Nom (Bld)AutoNormalCLake County Memorial Hospital [facility] West on above:Order Comment: Specimen Type: BLOOD SPECIMENOrdering Facility: [facility] Address:[address] [place], [place] [address]Performed By: #### 26632-6 ####[facility] LABCL[facility] [id number] [place] [address] [place] AMERICAEosinophils (Bld) [#/Vol]0.12 10*3/uLNormal<0.46 [facility] on above:Order Comment: Specimen Type: BLOOD SPECIMENOrdering Facility: [facility] Address:[address] [place], [place] [address]Performed By: #### 42217-9 ####[facility] LABCL[facility] [id number] [place] [address] [place] Eosinophils/100 WBC (Bld)1.5 %NormalSumma Health Wadsworth - Rittman Medical Center on above: Order Comment: Specimen Type: BLOOD SPECIMENOrdering Facility: [facility] Address:[address] [place], [place] [address]Performed By: #### 31402- 8 ####[facility] LABCL[facility] [id number] [place] [address] [place] AMERICAErythrocyte distribution width (RBC) [Ratio]12.5 % Leahrn84.5-15.0[facility] on above:Order Comment: Specimen Type: BLOOD SPECIMENOrdering Facility: [facility] Address:[address] [place], [place] [address]Performed By: #### 83907-1 ####[facility] LABCL[facility] [id number] [place] [address] [place] AMERICAHematocrit (Bld) [Volume fraction]43.0 %Ezxzth64.0-46.0 [facility] on above:Order Comment: Specimen Type: BLOOD SPECIMENOrdering Facility: [facility] Address:[address] [place], [place] [address]Performed By: #### 98615-4 ####[facility] LABIA [id number] [place] [address] [place] Hemoglobin (Bld) [Mass/Vol]14.2 g/qZWbwvpj80.5-15.5CGlenbeigh Hospital Comment on above:Order Comment: Specimen Type: BLOOD SPECIMENOrdering Facility: [facility] Address:[address] [place] [address] Performed By: #### 87819-1 ####[facility]ENTERIA [id number] [place] [address] [place] AMERICAImmature granulocytes (Bld) [#/Vol]0.05 10*3/uLNormal<0.10[facility] on above: Order Comment: Specimen Type: BLOOD SPECIMENOrdering Facility: [facility] Address:[address] [place], [place] [address]Performed By: #### 86090- 8 ####[facility] LABIA [id number] [place] [address] [place] AMERICAImmature granulocytes/100 WBC (Bld)0.6 %Normal [facility] on above:Order Comment: Specimen Type: BLOOD SPECIMENOrdering Facility: [facility] Address:[address] [place], [place] [address]Performed By: #### 52260-8 ####[facility] LABIA [id number] [place] [address] [place] Lymphocytes (Bld) [#/Vol]2.09 10*3/uLNormal1.00-4.00[facility] Comment on above:Order Comment: Specimen Type: BLOOD SPECIMENOrdering Facility: [facility] Address:[address] [place] [address] Performed By: #### 59568-2 ####[facility] LABIA [id number] [place] [address] [place] [facility] HOSPITALLymphocytes/100 WBC (Bld)26.5 %NormalSumma Health Wadsworth - Rittman Medical Center on above:Order Comment: Specimen Type: BLOOD SPECIMENOrdering Facility: [facility] Address:[address] [place], [place] [address]Performed By: #### 89776-9 ####[facility] LABIA [id number] [address] (RBC) [Entitic mass]28.9 ofBlzszo36.0-34.0[facility] on above:Order Comment: Specimen Type: BLOOD SPECIMENOrdering Facility: [facility] Address:[address] [place], [place] [address]Performed By: #### 73606-3 ####[facility] LABIA [id number] [address]ETMCHC (RBC) [Mass/Vol]33.0 g/iJRzxhpx75.5-36.0[facility] on above:Order Comment: Specimen Type: BLOOD SPECIMENOrdering Facility: [facility] Address:[address] [place], [place] [address]Performed By: #### 29033-4 ####[facility] LABIA [id number] [address]ETV (RBC) [Entitic vol]87.4 fL Vywgyd28.0-100.0[facility] on above:Order Comment: Specimen Type: BLOOD SPECIMENOrdering Facility: [facility] Address:[address] [place], [place] [address]Performed By: #### 80792-1 ####[facility] LABIA [id number] [place] [address] [place] AMERICAMonocytes (Bld) [#/Vol]0.41 10*3/uLNormal<0.87[facility] on above:Order Comment: Specimen Type: BLOOD SPECIMENOrdering Facility: [facility] Address:[address] [place], [place] [address]Performed By: #### 50418-7 ####[facility] LABCLIA [id number] [place] [address] [place] Monocytes/100 WBC (Bld)5.2 %NormalSumma Health [facility] - [facility] on above: Order Comment: Specimen Type: BLOOD SPECIMENOrdering Facility: [facility] Address:[address] [place], [place] [address]Performed By: #### 11125- 8 ####[facility] LABCLIA [id number] [place] [address] [place] AMERICANeutrophils (Bld) [#/Vol]5.18 10*3/uLNormal 1.45-7.50[facility] on above:Order Comment: Specimen Type: BLOOD SPECIMENOrdering Facility: [facility] Address:[address] [place], [place] [address]Performed By: #### 20901-5 ####[facility] LABCLIA [id number] [place] [address] [place] AMERICANeutrophils/100 WBC (Bld)65.8 %NormalSumma Health Wadsworth - Rittman Medical Center on above:Order Comment: Specimen Type: BLOOD SPECIMENOrdering Facility: [facility] Address:[address] [place], [place] [address]Performed By: #### 45223-2 ####[facility] LABCLIA [id number] [place] [address] [place] AMERICANucleated RBC (Bld) [#/Vol] 10*3/uLNormal<0.01[facility] on above:Order Comment: Specimen Type: BLOOD SPECIMENOrdering Facility: [facility] Address:[address] [place], [place] [address]Performed By: #### 76086-9 ####[facility] LABCLIA [id number] [place] [address] [place] AMERICANucleated RBC/100 WBC (Bld) [Ratio]0.0 /100 WBCNormal [facility] on above:Order Comment: Specimen Type: BLOOD SPECIMENOrdering Facility: [facility] Address:[address] [place], [place] [address]Performed By: #### 00914-8 ####[facility] LABCLIA [id number] [place] [address] [place] AMERICAPlatelet mean volume (Bld) [Entitic vol]10.7 fLNormal9.0-12.7CGlenbeigh Hospital Comment on above:Order Comment: Specimen Type: BLOOD SPECIMENOrdering Facility: [facility] Address:[address] [place] [address] Performed By: #### 32221-2 ####[facility] LABCLIA [id number] [address] STATES OF AMERICAPlatelets (Bld) [#/Vol] 263 10*3/pCVtmlzu831-201XmboffwwuSumma Health Wadsworth - [facility] Medical Center on above:Order Comment: Specimen Type: BLOOD SPECIMENOrdering Facility: [facility] Address:[address] [place], [place] [address]Result Comment: No clot detected.Performed By: #### 05450-0 ####[facility] LABCLIA [id number] [address] STATES OF AMERICARBC (Bld) [#/Vol]4.92 10*6/uLNormal3.90-5.20[facility] on above: Order Comment: Specimen Type: BLOOD SPECIMENOrdering Facility: [facility] Address:[address] [place], [place] [address]Performed By: #### 13572- 8 ####[facility] LABCLIA [id number] [place] [address] [place] AMERICAWBC (Bld) [#/Vol]7.88 10*3/uLNormal3.70-11.00 Marymount HospitalComment on above:Order Comment: Specimen Type: BLOOD SPECIMENOrdering Facility: [facility] Address:[address] [place], [place] [address]Performed By: #### 86371-8 ####[facility] LABCLIA [id number] [address] Cultureon 60-25-4954Ixqtalkm identified Cx Nom (U)ORGANISM: Escherichia coli (O:ESCCOL) [place] Count 50,000 ORGANISM: Escherichia coli (O:ESCCOL) [place] Count >100,000 Aerobic DEEP Charge (NMIC56) SUSCEPTIBILITY ORGANISM: O:ESCCOL ANTIBIOTIC INTERPRETATION DEEP Amikacin S <16 Amoxacillin/K Clavulanate S <8 Ampicillin S <8 Ampicillin/Sulbactam S <4 Aztreonam S <4 Cefazolin S <2 Cefepime S <2 Ceftazidime S <1 Ceftazidime/Avibactam S <4 Ceftolozane/Tazobactam S <2 Ceftriaxone S <1 Cefuroxime S <4 Ciprofloxacin S <0.25 Ertapenem S <0.5 Gentamicin S <2 Levofloxacin S <0.5 Meropenem S <1 Meropenem/Vaborbactam S <2 Nitrofurantoin S <32 Piperacillin/Tazobactam S <8 Tetracycline S <4 Tigecycline S <2 Tobramycin S <2 Trimethoprim/Sulfamethoxazole S <0.5 Aerobic DEEP Charge (NMIC56) SUSCEPTIBILITY ORGANISM: O:ESCCOL ANTIBIOTIC INTERPRETATION DEEP Amikacin S <16 Amoxacillin/K Clavulanate S <8 Ampicillin S <8 Ampicillin/Sulbactam S <4 Aztreonam S <4 Cefazolin S <2 Cefepime S <2 Ceftazidime S <1 Ceftazidime/Avibactam S <4 Ceftolozane/Tazobactam S <2 Ceftriaxone S <1 Cefuroxime S <4 Ciprofloxacin S <0.25 Ertapenem S <0.5 Gentamicin S <2 Levofloxacin S <0.5 Meropenem S <1 Meropenem/Vaborbactam S <2 Nitrofurantoin S <32 Piperacillin/Tazobactam S <8 Tetracycline S <4 Tigecycline S <2 Tobramycin S <2 Trimethoprim/Sulfamethoxazole S <0.5 S = SUSCEPTIBLE I = [...] RESISTANT TO ALL B-LACTAM DRUGS. PERFORMED BY: [place] [address] PATHOLOGIST PAYROLL BENEFITS ADMINISTRATOR MADISON BAIN M.D.[facility] Physician GroupComment on above: Performed By: #### CUU #### [place] [address] USABacteria identified Cx Nom (U)ORGANISM: Escherichia coli (O:ESCCOL) [place] Count >100,000 Aerobic DEEP Charge (NMIC56) SUSCEPTIBILITY ORGANISM: O:ESCCOL ANTIBIOTIC INTERPRETATION DEEP Amikacin S <16 Amoxacillin/K Clavulanate S <8 Ampicillin S <8 Ampicillin/Sulbactam S <4 Aztreonam S <4 Cefazolin S <2 Cefepime S <2 Ceftazidime S <1 Ceftazidime/Avibactam S <4 Ceftolozane/Tazobactam S <2 Ceftriaxone S <1 Cefuroxime S <4 Ciprofloxacin S <0.25 Ertapenem S <0.5 Gentamicin S <2 Levofloxacin S <0.5 Meropenem S <1 Meropenem/Vaborbactam S <2 Nitrofurantoin S <32 Piperacillin/Tazobactam S <8 Tetracycline S <4 Tigecycline S <2 Tobramycin S <2 Trimethoprim/Sulfamethoxazole S <0.5 S = SUSCEPTIBLE I = [...] RESISTANT TO ALL B-LACTAM DRUGS. PERFORMED BY: [place] [address] PATHOLOGIST PAYROLL BENEFITS ADMINISTRATOR MADISON BAIN M.D.[facility] Physician GroupComment on above: Performed By: #### CUU #### [place] [address] USACNOVcorine 57-12-4497JJDLPwsnfe Visit [place] KARLENE TOM ([id number]) 1980 F Date Time Provider Department 03/17/25 3:45 PM ALEXANDER GALLEGOS During your visit today, we recorded the following information about you: Temperature Pulse Blood pressure Weight 99.4 degrees 78/minute 108/73 128.3 kg Height Last Period 1.702 m 02/28/25 Alexander Gallegos MD 03/22/2025 2:13 PM Signed This note was created using Paper Hunterriter. Subjective Karlene Allenrier is a 44 year old female. The [...] UPPER/ADJACENT VAGINA 05/22/2004 Colposcopy CONIZATION CERVIX W/WO [facility] RPR ELTRD EXC 07/22/2004 LEEP-Cervix PAST SURGICAL [...] friction rub. No benjamin (more content not included)...NormalSt. Anthony's Hospital 30-38-4136XMIPYzighcilk (ENSUMN) KARLENE TOM ([id number]) 1980 F Date Time Provider Department 03/14/25 [...] discuss the pros/cons of having the surgery. Daniel Waggoner RN 03/14/2025 2:17 PM Signed 03/14/25 1405 [...] office number or she can send a [employer] message with her decision. Daniel Waggoner RN Allergies As of Date: 03/14/2025 Noted Allergy Reaction AMOXICILLIN 06/17/2024 4 - Hives LATEX 11/15/2007 10 - Anaphylaxis CIPROFLOXACIN 05/18/2023 4 - Hives 9 - Itching MORPHINE 05/26/2017 8 - GI Upset NEOSPORIN ([id number]-MF*10/07/2011 2 - Rash SILVER SULFADIAZINE 01/18/2024 14 [...] intravenous access [Z78.9] 12/14/2024 Encounter Status:Closed by DANIEL WAGGONER on 03/23/25[facility] [id number] (INTMLN) KARLENE TOM ([id number]) 1980 F Date Time Provider Department 02/22/25 TRACIE WILLIAMSON INTMLMiguel Ángel During your visit today, we recorded the following information about you: Tracie Williamson, ALEE.ORACLE WEBCENTER CONSULTANT 02/22/2025 12:16 PM Signed Chart reviewed in light of upcoming appt today Traveling a great distance from [facility] for medication refill as pcp left Can you call her to see what she needs and if a refill can she request on mychart? I have not seen her in over a year so unknown what the history is with her medication, but can try to refill if able without a big trip to ask for a refill Mariah Mann, RN 02/22/2025 12:30 PM Signed Call placed to pt per provider request. Pt states she is looking for a refill of her Tramadol and Lyrica. Pt states she has spina bifida. Pt also asked how to go about finding a new primary. Advised will ask my scheduling team contact her to arrange a new PCP appointment. Pt verbalized understanding. No further questions. Mariah Mann, INEZ 02/22/2025 12:39 PM Signed Message received from [...] for 30 days. Authorizing Provider: TRACIE WILLIAMSON APRN.ORACLE WEBCENTER CONSULTANT Allergies As of Date: 02/22/2025 Noted Allergy Reaction AMOXICILLIN 06/17/2024 4 - Hives LATEX 11/15/2007 10 - Anaphylaxis CIPROFLOXACIN 05/18/2023 4 - Hives 9 - Itching MORPHINE 05/26/2017 8 - GI Upset NEOSPORIN ([id number]*10/07/2011 2 - Rash SILVER SULFADIAZINE 01/18/2024 14 [...] capsule (Discontinued) Take 1 (more content not included)...NormalWright-Patterson Medical CenterPNon 16-47-5331OMDRFksqncqte (MNPACC) KARLENE TOM ([id number]) 1980 F Date Time Provider Department 12/23/24 ROD RANDHAWA [facility] During your visit today, we recorded the following information about you: Rod Randhawa PA-C 12/23/2024 7:31 AM Signed Good morning, I evaluated Ms. Karlene Tom in [facility], she is scheduled for surgery on 12/28. She self-catheterizes due to neurogenic bladder and was complaining of abnormal urine odor and change in color. Urine culture grew E.coli, I prescribed the patient Macrobid. Please let me know if you have any questions or concerns. Rod Randhawa PA-C [facility] Allergies As of Date: 12/23/2024 Noted Allergy Reaction AMOXICILLIN 06/17/2024 4 - Hives LATEX 11/15/2007 10 - Anaphylaxis CIPROFLOXACIN 05/18/2023 4 - Hives 9 - Itching MORPHINE 05/26/2017 8 - GI Upset NEOSPORIN ([id number]*10/07/2011 2 - Rash SILVER SULFADIAZINE 01/18/2024 14 [...] 12/14/2024 Encounter Status:Closed by ROD RANDHAWA on 03/20/25[facility] Hospitalyari Rober Walker 09-44-1582Ilxpoyps identified Cx Nom (U)ORGANISM ID: 1 >=100,000 CFU/ml Escherichia coli ORGANISM ID: 1 (ESCHERICHIA COLI) ANTIBIOTIC INTERPRETATION DEEP STATUS REFERENCE RANGE Ampicillin S 8 F Susceptible <=8 , Intermediate >8 , Resistant >16 Cefazolin S <=4 F Susceptible 0-16 , Intermediate <0 or >16 , Resistant >16 For uncomplicated urinary tract infections, cefazolin results can be used to predict susceptibilityor resistance to cephalexin. Ceftriaxone S <=1 F [...] Susceptible <=32 , Intermediate >32 , Resistant >64AbnoTriHealth Good Samaritan HospitalComment on above:Performed By: #### 630-4 ####[facility] LABCLIA [id number] [place] [address] [facility] MEDICAL CENTERCNOVon 12-08-6080PIGRPbjcgj Visit (INTMLN) KARLENE TOM ([id number]) 1980 F Date Time Provider Department 12/20/24 4:40 PM AIDAN MONTENEGRO INTMLN During your visit today, we recorded the following information about you: Pulse Blood pressure Weight Height 74/minute 122/73 127.8 kg 1.702 m Aidan Montenegro MD 12/20/2024 5:12 PM Signed Karlene Maldonado Negro is a [...] 50 Mg Tablet 84.00 28 Ra Joe [id number] [place] (5172) 0 30.00 MME Medicaid [place] 11/18/2024 10/17/2024 1 Pregabalin 75 Mg Capsule 84.00 28 Ra Joe [id number] [place] (5172) 1 1.51 LME [place] [...] and tramadol. Follow up Neurology, last appointment 4/30/24 - H/o neurogenic bladder treated with botox injection - Frequent urine infections, about 6 in past 1 year. - Change in color and smell, christopher (more content not included)...NormalMarymount HospitalUrinalysis complete panel (U)on 89-17-2932CUNCKRJY QU2391.8 uL HighNegativeSumma Health [facility] - [facility] on above:Order Comment: Specimen Type: URINE SPECIMENOrdering Facility: [facility] Address:[address] [place], [place] [address]Performed By: #### 45574-2 ####[facility] LABIA [id number] [place] [id number] [place] AMERICABilirubin Ql (U)NegativeNormalNegativeSumma Health [facility] on above:Order Comment: Specimen Type: URINE SPECIMENOrdering Facility: [facility] Address:[address] [place], [place] [address]Performed By: #### 89564-6 ####[facility] LABIA [id number] [place] [id number] [place] Clarity (Unsp spec)ClearNormalClearSumma Health [facility] - [facility] on above: Order Comment: Specimen Type: URINE SPECIMENOrdering Facility: [facility] Address:[address] [place], [place] [address]Performed By: #### 65627- 8 ####[facility] LABIA [id number] [place] [address] [place] AMERICAColor (U)YellowNormalYellow [facility] on above:Order Comment: Specimen Type: URINE SPECIMENOrdering Facility: [facility] Address:[address] [place], [place] [address]Performed By: #### 55177-5 ####[facility] LABCLIA [id number] [address] [place] [address] [place] AMERICAEpithelial cells LM.HPF (Urine sed) [#/Area]ModerateNormalCLake County Memorial Hospital - West on above:Order Comment: Specimen Type: URINE SPECIMENOrdering Facility: [facility] Address:[address] [place], [place] [address]Performed By: #### 25083-8 ####[facility] LABCLIA [id number] [address], [place] [facility] [place] AMERICAGlucose Test strip (U) [Mass/Vol]NegativeNormalNegativeSumma Health [facility] on above:Order Comment: Specimen Type: URINE SPECIMENOrdering Facility: [facility] Address:[address] [place], [place] [address]Performed By: #### 07832-4 ####[facility] LABCLIA [id number] [address], [place] [address] [place] Hemoglobin Ql (U)1+AbnormalNegativeSumma Health [facility] on above: Order Comment: Specimen Type: URINE SPECIMENOrdering Facility: [facility] Address:[address] [place], [place] [address]Performed By: #### 48316- 8 ####[facility] LABCLIA [id number] [address], [place] [address] [place] AMERICAHyaline casts (Urine sed) [#/Area]1-3 /LPFAbnormal0 /LPFCLake County Memorial Hospital [facility] West on above:Order Comment: Specimen Type: URINE SPECIMENOrdering Facility: [facility] Address:[address] [place], [place] [address]Performed By: #### 23992- 8 ####[facility] LABCLIA [id number] [address], [facility] [place] AMERICAKetones Ql (U)NegativeNormal NegativeSumma Health Wad[facility] - [facility]ittman Medical Center on above:Order Comment: Specimen Type: URINE SPECIMENOrdering Facility: [facility] Address:[address] [place], [place] [address]Performed By: #### 67737-8 ####[facility] LABCLIA [id number] [place] [address] [place] AMERICALeukocyte esterase Test strip Ql (U)2+AbnormalNegative [facility] on above:Order Comment: Specimen Type: URINE SPECIMENOrdering Facility: [facility] Address:[address] [place], [place] [address]Performed By: #### 36132-8 ####[facility] LABCLIA [id number] [place] [address] [place] AMERICANitrite Ql (U)PositiveAbnormalNegativeSumma Health [facility] on above:Order Comment: Specimen Type: URINE SPECIMENOrdering Facility: [facility] Address:[address] [place] [address] Performed By: #### 53783-0 ####[facility] LABCLIA [id number] [place] [address] [place] pH (U)6.0 [pH]Normal<8.5CLake County Memorial Hospital [facility] on above:Order Comment: Specimen Type: URINE SPECIMENOrdering Facility: [facility] Address:[address] [place], [place] [address]Performed By: #### 68099- 8 ####[facility] LABCLIA [id number] [place] [address] [place] [facility] PRIVATE HOSPITALProtein (U) [Mass/Vol]Negative NormalNegativeSumma Health [facility] on above:Order Comment: Specimen Type: URINE SPECIMENOrdering Facility: [facility] Address:[address] [place], [place] [address]Performed By: #### 73844-2 ####[facility] LABCLIA [id number] [place] [address] [place] AMERICARBC LM.HPF (Urine sed) [#/Area]0-2 /HPFNormal0-2 /HPF [facility] on above:Order Comment: Specimen Type: URINE SPECIMENOrdering Facility: [facility] Address:[address] [place], [place] [address]Performed By: #### 47936-9 ####[facility] [id number] [place] [address] [place] AMERICASpecific gravity (U) [Rel density]1.418Mxeeyg4.005-1.030Marymount HospitalCompromedica [facility] on above:Order Comment: Specimen Type: URINE SPECIMENOrdering Facility: [facility] Address:[address] [place], [place] [address]Performed By: #### 22049-5 ####[facility] [id number] [place] [address] [place] Urobilinogen Ql (U)0.2 EU/dLNormal0.2-1.0 EU/dLMarymount HospitalCompromedica coldwater regional hospital on above:Order Comment: Specimen Type: URINE SPECIMENOrdering Facility: [facility] Address:[address] [place] [address] Performed By: #### 72014-7 ####[facility] [id number] [place] [address] [place] WBC LM.HPF (Urine sed) [#/Area]/[HPF]Abnormal0-5 /HPFMarymount Hospital Comment on above:Order Comment: Specimen Type: URINE SPECIMENOrdering Facility: [facility] Address:[address] [place] [address] Performed By: #### 47471-7 ####[facility] [id number] [place] [address] [place] HISTORY PHYSICALon 44-42-7985ZFGTTHJ PHYSICALHNO ID: [id number] Author: ROD RANDHAWA PA-C Service: ? Author Type: Physician Administrative Liaison Type: H&P Filed: 12/23/2024 07:31 Note Text: [facility] HISTORY AND PHYSICAL EXAMINATION SERVICE DATE: 12/14/2024 SERVICE TIME: 7:31 AM PRIMARY CARE PHYSICIAN: Aidan Forrester MD Assessment Patient has the following medical conditions which may affect saravanan-operative course: Morbid obesity with BMI of 40.0-44.9, adult ([facility]) Body mass index is 43.07 kg/m?. Was [...] days, called patient who verbalized understanding. Sent JENELLE CARDONA to surgical team. CONSULTS: Patient does not require consults for optimization at this time Planned Anesthetic: anesthesia choice The Following Tests/Procedures Have Been Initiated: Urinalysis/culture Labs and EKG per surgical service. This is a virtual visit using Cellv[employer] video visit. It required patient-provider interaction for [...] virtual visit. The visit was conducted using [employer] video visit. It required patient-provider interaction for the medical decision making as documented below. I have communicated my name and active licensure. The patient's identity and physical location were verified at the time of this visit. Either the patient or their legal solar sales representative and assessor has been informed of the risks and benefits of and alternatives to treatment through a remote evaluation and consents to proceed with the evaluation remotely. REVIEW OF SYSTEMS: General: Negative for: weight loss >10% of BW in last 6 months, malaise and fever. Neurological: Spina Bifida Negative for: delirium, dementia, s (more content not included)...Normal [facility]25([place])D3 SerPl-ncon 92-55-127799182727-dytxakpvtqbapu D3 [Mass/Vol]22.0 ng/mLLow31.0-80.0[facility] on above:Order Comment: Specimen Type: BLOOD SPECIMENOrdering Facility: [facility] Address:[address] [place], [place] [address]Result Comment: Classification of 25 [place] Vitamin D status: Deficiency/Insufficiency: < or = 30 ng/ml. Sufficiency/Optimal Levels: 31-80 ng/mL Toxicity: > 100 ng/mL. Test performed by chemiluminescent immunoassay.Performed By: #### 1989-3 ####[facility] LABCLIA [id number] [address] [address] [address] [facility] OF AMERICABasic metabolic 2000 panelon 16-71-1047Xgovx gap [Moles/Vol]5 mmol/LLow8-15[facility] on above:Order Comment: Specimen Type: BLOOD SPECIMENOrdering Facility: [facility] Address:[address] [place] [address] Performed By: #### 13290-2 ####[facility]SEM[facility] PSYCHI[facility]RIC CENTERCarlos [facility] LABCLIA [id number] [place] [address] [place]#### 3016-3 ####[facility] LABCLIA [id number] [address] [place] [address] [place] AMERICACalcium [Mass/Vol]8.8 mg/dLNormal8.5-10.2CLake [facility] on above:Order Comment: Specimen Type: BLOOD SPECIMENOrdering Facility: [facility] Address:[address] [place], [place] [address]Performed By: #### 49074-2 ####[facility] HOSPITALCarlos [facility] LABCLIA [id number] [place] [address] [place]#### 3016-3 ####[facility] LABCLIA [id number] [address] [place] [address] [place] AMERICAChloride [Moles/Vol]106 mmol/L Pmnbis25-517BmayvjvjwSumma Health [facility] - [facility] on above:Order Comment: Specimen Type: BLOOD SPECIMENOrdering Facility: [facility] Address:[address] [place], [place] [address]Performed By: #### 70518-1 ####[facility] LABCLIA [id number] [place] [address] [place]#### 3016-3 ####[facility] LABCLIA [id number] [place] [address] [place] AMERICACO2 [Moles/Vol]27 mmol/L Awtpxv82-43YqusbmonpSumma Health [facility]ad[facility] - [facility] on above:Order Comment: Specimen Type: BLOOD SPECIMENOrdering Facility: [facility] Address:[address] [place], [place] [address]Performed By: #### 29313-7 ####[facility] LABCLIA [id number] [place] [address] [place]#### 3016-3 ####[facility] LABCLIA [id number] [place] [address] [place] AMERICACreatinine [Mass/Vol]0.72 mg/dLNormal0.58-0.96[facility] on above:Order Comment: Specimen Type: BLOOD SPECIMENOrdering Facility: [facility] Address:[address] [place], [place] [address]Performed By: #### 40523-8 ####[facility] HOSPITALCarlos [facility] LABCLIA [id number] [place] [address] [place]#### 3016-3 ####[facility] LABCLIA [id number] [place] [address] [place] Creatinine and Glomerular filtration rate.predicted panel (S/P/Bld)106 mL/min/1.73m???Normal>=60[facility] on above:Order Comment: Specimen Type: BLOOD SPECIMENOrdering Facility: [facility] Address:[address] [place], [place] [address]Iusabx Comment: Estimated Glomerular Filtration Rate (eGFR) is calculated using the 2020 CKD-EPI cre atinine equation. This equation utilizes serum creatinine, sex, and age as parameters. The creatinine assay has traceable calibration to isotope dilution- mass spectrometry. Refer to KDIGO guidelines for clinical interpretation. In patients with unstable renal function, e.g. those with acute kidney injury, the eGFR may not accurately reflect actual GFR.Performed By: #### 80798-6 ####[facility]HUN[facility] PSY[facility] CENTERT [facility] LABIA [id number] [address] [place]#### 3016-3 ####[facility] LABIA [id number] [place] [id number] [place] [facility] Glucose [Mass/Vol]74 mg/nTZzyeaa45-91IxejfuadwMarymount HospitalComment on above: Order Comment: Specimen Type: BLOOD SPECIMENOrdering Facility: [facility] Address:[address] [place], [place] [address]Qzzics Comment: The [place] Diabetes Association (ADA) provides guidance for cutoff values for fast ing glucose and random glucose. The ADA defines [...] Standards of Medical Care in Diabetes 2016, [place] [employer]. Diabetes Care. 2016.39(Suppl 1).Performed By: #### 41146-3 ####AMHERST [facility] LABCLIA [id number] [place] [address] [place]#### 3016-3 ####[facility] LABCLIA [id number] [address] [address] [place] Potassium [Moles/Vol]4.0 mmol/LNormal3.7-5.1CLake [facility] on above:Order Comment: Specimen Type: BLOOD SPECIMENOrdering Facility: [facility] Address:[address] [place], [place] [address]Performed By: #### 83378-6 ####[facility] LABCLIA [id number] [place] [address] [place]#### 3016-3 ####[facility] LABCLIA [id number] [place] [address] [place] Sodium [Moles/Vol]138 mmol/ZJuxybw047-323WogttjcdiSumma Health [facility] on above:Order Comment: Specimen Type: BLOOD SPECIMENOrdering Facility: [facility] Address:[address] [place], [place] [address]Performed By: #### 01221-9 ####[facility] LABIA [id number] [place] [address] [place]#### 3016-3 ####[facility] LABCLIA [id number] [place] [address] [place] Urea nitrogen [Mass/Vol]13 mg/dLNormal7-21[facility] on above:Order Comment: Specimen Type: BLOOD SPECIMENOrdering Facility: [facility] Address:[address] [place], [place] [address]Performed By: #### 30064-2 ####[facility] LABIA [id number] [place] [address] [place]#### 3016-3 ####[facility] LABCLIA [id number] [place] [address] [place] CBC W Auto Differential panel (Bld)on 47-72-5964Bpdmwctul (Bld) [#/Vol]0.04 10*3/uLNormal<0.11CLake [facility] on above:Order Comment: Specimen Type: BLOOD SPECIMENOrdering Facility: [facility] Address:[address] [place], [place] [address]Performed By: #### 15814-9 ####[facility] LABCLIA [id number] [place] [address] [place] AMERICABasophils/100 WBC (Bld)0.6 % NormalSumma Health Wadsworth - Rittman Medical Center on above:Order Comment: Specimen Type: BLOOD SPECIMENOrdering Facility: [facility] Address:[address] [place], [place] [address]Performed By: #### 55519-9 ####[facility] LABCLIA [id number] [place] [address] [place] AMERICADifferential cell count method Nom (Bld)AutoNormalClevelOhioHealth O'Bleness Hospital on above:Order Comment: Specimen Type: BLOOD SPECIMENOrdering Facility: [facility] Address:[address] [place], [place] [address]Performed By: #### 85028-6 ####[facility] LABCLIA [id number] [place] [address] [place] AMERICAEosinophils (Bld) [#/Vol]0.09 10*3/uLNormal<0.46[facility] on above:Order Comment: Specimen Type: BLOOD SPECIMENOrdering Facility: [facility] Address:[address] [place], [place] [address]Performed By: #### 80383-2 ####[facility] LABCLIA [id number] [place] [address] [place] Eosinophils/100 WBC (Bld)1.3 %NormalSumma Health Wadsworth - Rittman Medical Center on above: Order Comment: Specimen Type: BLOOD SPECIMENOrdering Facility: [facility] Address:[address] [place], [place] [address]Performed By: #### 18539- 8 ####[facility] LABCLIA [id number] [place] [address] [place] AMERICAErythrocyte distribution width (RBC) [Ratio]12.4 %Skljos50.5-15.0[facility] on above: Order Comment: Specimen Type: BLOOD SPECIMENOrdering Facility: [facility] Address:[address] [place], [place] [address]Performed By: #### 82398- 8 ####[facility] [id number] [place] [address] [place] AMERICAHematocrit (Bld) [Volume fraction]38.7 %Vxekxg11.0-46.0[facility] on above:Order Comment: Specimen Type: BLOOD SPECIMENOrdering Facility: [facility] Address:[address] [place], [place] [address]Performed By: #### 92496- 8 ####[facility] [id number] [address] STATES OF AMERICAHemoglobin (Bld) [Mass/Vol]12.7 g/cZHjyjvq78.5-15.5CLake [facility] on above:Order Comment: Specimen Type: BLOOD SPECIMENOrdering Facility: [facility] Address:[address] [place], [place] [address]Performed By: #### 26690-5 ####[facility] [id number] [place] [address] [place] AMERICAImmature granulocytes (Bld) [#/Vol]0.03 10*3/uLNormal<0.10[facility] on above:Order Comment: Specimen Type: BLOOD SPECIMENOrdering Facility: [facility] Address:[address] [place], [place] [address]Performed By: #### 65167- 8 ####[facility] [id number] [place] [address] [place] AMERICAImmature granulocytes/100 WBC (Bld)0.4 %NormalSumma Health Wadsworth - Rittman Medical Center on above:Order Comment: Specimen Type: BLOOD SPECIMENOrdering Facility: [facility] Address:[address] [place], [place] [address]Performed By: #### 22493-4 ####[facility] LABCLIA [id number] [address] [address] [place] AMERICALymphocytes (Bld) [#/Vol]1.92 10*3/uLNormal1.00-4.00[facility] on above:Order Comment: Specimen Type: BLOOD SPECIMENOrdering Facility: [facility] Address:[address] [place], [place] [address]Performed By: #### 46273-6 ####[facility] LABIA [id number] [place] [address] [place] AMERICALymphocytes/100 WBC (Bld)28.0 % NormalSumma Health Wadsworth - Rittman Medical Center on above:Order Comment: Specimen Type: BLOOD SPECIMENOrdering Facility: [facility] Address:[address] [place], [place] [address]Performed By: #### 54820-7 ####[facility] LABIA [id number] [address] [address] [place] AMERICAMCH (RBC) [Entitic mass]28.8 jmAzxlvx50.0-34.0[facility] on above:Order Comment: Specimen Type: BLOOD SPECIMENOrdering Facility: [facility] Address:[address] [place], [place] [address]Performed By: #### 97750-5 ####[facility] LABIA [id number] [address] [address] [place] MCHC (RBC) [Mass/Vol]32.8 g/iBXewggl55.5-36.0[facility] on above:Order Comment: Specimen Type: BLOOD SPECIMENOrdering Facility: [facility] Address:[address] [place] [address] Performed By: #### 89880-7 ####[facility] LABIA [id number] [place] [address] [place] MCV (RBC) [Entitic vol]87.8 pZMmhamu99.0-100.0[facility] on above:Order Comment: Specimen Type: BLOOD SPECIMENOrdering Facility: [facility] Address:[address] [place] [address] Performed By: #### 05916-9 ####[facility] LABIA [id number] [place] [address] [place] Monocytes (Bld) [#/Vol]0.43 10*3/uLNormal<0.87[facility] on above:Order Comment: Specimen Type: BLOOD SPECIMENOrdering Facility: [facility] Address:[address] [place] [address] Performed By: #### 27422-1 ####[facility] LABIA [id number] [place] [address] [place] Monocytes/100 WBC (Bld)6.3 %NormalSumma Health Wadsworth - Rittman Medical Center on above: Order Comment: Specimen Type: BLOOD SPECIMENOrdering Facility: [facility] Address:[address] [place], [place] [address]Performed By: #### 14835- 8 ####[facility] LABIA [id number] [place] [address] [place] AMERICANeutrophils (Bld) [#/Vol]4.35 10*3/uLNormal1.45-7.50[facility] on above:Order Comment: Specimen Type: BLOOD SPECIMENOrdering Facility: [facility] Address:[address] [place], [place] [address]Performed By: #### 20924-0 ####[facility] LABIA [id number] [place] [address] [place]ICANeutrophils/100 WBC (Bld)63.4 % NormalSumma Health Wadsworth - Rittman Medical Center on above:Order Comment: Specimen Type: BLOOD SPECIMENOrdering Facility: [facility] Address:[address] [place], [place] [address]Performed By: #### 46722-8 ####[facility] LABCLIA [id number] [place] [address] [place] AMER[place]ucleated RBC (Bld) [#/Vol]10*3/uLNormal<0.01[facility] on above:Order Comment: Specimen Type: BLOOD SPECIMENOrdering Facility: [facility] Address:[address] [place], [place] [address]Performed By: #### 40372-4 ####[facility] LABCLIA [id number] [place] [address] [place] Nucleated RBC/100 WBC (Bld) [Ratio]0.0 /100 WBCNormalCGlenbeigh Hospital Comment on above:Order Comment: Specimen Type: BLOOD SPECIMENOrdering Facility: [facility] Address:[address] [place] [address] Performed By: #### 44609-1 ####[facility] LABCLIA [id number] [place] [address] [place] Platelet mean volume (Bld) [Entitic vol]10.0 fLNormal9.0-12.7CLake [facility] on above:Order Comment: Specimen Type: BLOOD SPECIMENOrdering Facility: [facility] Address:[address] [place], [place] [address]Performed By: #### 95612-3 ####[facility] LABCLIA [id number] [place] [address] [place] Platelets (Bld) [#/Vol]271 10*3/eAEcflil824-318GmktlvseiSumma Health Wad[facility] - [facility] on above:Order Comment: Specimen Type: BLOOD SPECIMENOrdering Facility: [facility] Address:[address] [place] [address] Performed By: #### 21423-9 ####[facility] [id number] [place] [address] [place] [facility] RBC (Bld) [#/Vol]4.41 10*6/uLNormal3.90-5.20[facility] on above:Order Comment: Specimen Type: BLOOD SPECIMENOrdering Facility: [facility] Address:[address] [place], [place] [address]Performed By: #### 33716-0 ####[facility] [id number] [address]ETWBC (Bld) [#/Vol]6.86 10*3/uLNormal3.70-11.00[facility] on above:Order Comment: Specimen Type: BLOOD SPECIMENOrdering Facility: [facility] Address:[address] [place], [place] [address]Performed By: #### 57179-5 ####[facility] [id number] [address]ETCNNURSEon 42-83-7000AWTGFTEPvuwk Visit (ROB) KARLENE TOM ([id number]) 1980 F Date Time Provider Department 11/24/24 1:30 PM NURSE CARD [facility] LIANE RIVAS During your visit today, we recorded the following information about you: Indira Willingham MA 11/24/2024 1:26 PM Formerly [facility] Heart, Vascular AND Thoracic [place] Department of Cardiovascular Medicine OUTPATIENT VISIT TYPE NURSE VISIT PATIENT NAME: Karlene Tom DATE OF SERVICE: 11/24/2024 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 Vo for an EKG for pre-op testing LMP 08/28/2024 (Exact Date) Physician/OTIS notification and treatment plan: EKG uploaded to [employer] Nursing Plan: N/A Patient instructed to call and update the office if there are any changes in current condition. Patient verbalizes understanding of the plan: Yes. Patient's questions were addressed during the visit today: Yes Indira Willingham MA November 24, 2024 1:25 PM Referring Provider: BRI VO [[id number]] Allergies As of Date: 11/24/2024 Noted Allergy Reaction AMOXICILLIN 06/17/2024 4 - Hives LATEX 11/15/2007 10 - Anaphylaxis CIPROFLOXACIN 05/18/2023 4 - Hives 9 - Itching MORPHINE 05/26/2017 8 - GI Upset NEOSPORIN (YMOHFUWQ-ITBUHBEOLN-FZ*10/07/2011 2 - Rash SILVER SULFADIAZINE 01/18/2024 14 - Other: See Comments ZINC OXIDE 10/07/2011 2 - Rash Date Reviewed: 11/08/2024 Reviewed by: Shelbie Ortiz LPN - Fully Assessed Visit Diagnosis:Multiple thyroid nodules [E04.2] Order(s):ECG COMPLETE [ECG01] Order #: [id number] Prescriptions as of 11/24/2024 - traMADol (ULTRAM) [...] 04/08/2024 Encounter Status:Closed by INDIRA WILLINGHAM on 11/24/24[facility] HospitalECG01on 66-62-9325PJH63Qinbxuarfjr Rate : 66 BPM Atrial Rate : 66 BPM P-R Interval : 142 ms QRS Duration : 84 ms Q-T Interval : 390 ms QTC Calculation(Bazett) : 408 ms Calculated P Santo : 62 degrees Calculated R Santo : 33 degrees Calculated T Santo : 35 degrees NORMAL SINUS RHYTHM POSSIBLE LEFT ATRIAL ENLARGEMENT BORDERLINE ECG Confirmed by KAREEN PACE MD ([id number]) on 11/25/2024 4:27:43 PM NAME : KARLENE TOM PID : [id number] : 1980 Gender : Female Race : [...] By : BRI VO Acquired by : ,NormalCommunity Memorial Hospital SerPl-aCncon 96-58-5961RFU Qn 1.620 m[IU]/LNormal0.270-4.200[facility] on above:Order Comment: Specimen Type: BLOOD SPECIMENOrdering Facility: [facility] Address:[address] [id number] Comment: If the patient is , TSH reference range varies by gestational period: First Trimester (weeks 9-12): 0.180-2.990 mIU/L Second Trimester: 0.110-3.980 mIU/L Third Trimester: 0.480-4.710 mIU/L Kristopher Faust et al. A Practical Approach for the Verifications and Determination of Site- and Trimester-Specific Reference Intervals for Thyroid Function tests in . Thyroid, 2019:29:3:412-420.Eamon E, et al. 2017 Guidelines of the [place] Thyroid Association for the Diagnosis and Management of Thyroid Disease during and the . Thyroid, 2017:27:3:315-389. Performed By: #### 07715-7 ####[facility] LABCLIA [id number] [place] [address] [place]#### 3016-3 ####[facility] LABCLIA [id number] [address] AMERICAThyroglobulin and Thyrogobulin Ab panelon 11-24-2024 Thyroglobulin Ab Qn[IU]/mLNormal<4.0[facility] on above: Order Comment: Specimen Type: BLOOD SPECIMENOrdering Facility: [facility] Address:[address] [id number] Comment: The Thyroglobulin Antibody test was performed using the [employer] DXI p aramagnetic particle chemiluminescent immunoassay method. Results obtained with different assay methods or kits cannot be used interchangeably.Performed By: #### 19901-8 ####[facility] LABIA [id number] [place] [address] [place] AMERICATHYROGLOBULIN, SERUM 115.4 ng/mLHigh1.6-50.0[facility] on above:Order Comment: Specimen Type: BLOOD SPECIMENOrdering Facility: [facility] Address:[address] [place], [place] [address]Result Comment: The Thyroglobulin test was performed using the [employer] DXI paramagnetic particle chemiluminescent immunoassay method. Results obtained with different assay methods or kits cannot be used interchangeably.Performed By: #### 47997-3 ####[facility]ITAL[facility] [id number] [address] OF [facility] PRIVATE HOSPITALCNOVon 44-80-7701QDOLVamaxd Visit (ENSUAM) NEGROKARLENE D ([id number]) 1980 F Date Time Provider Department 11/08/24 1:00 PM BRI VO During your visit today, we recorded the following information about you: Bri Vo MD 11/08/2024 12:41 PM Signed [facility] Endocrinology and Metabolism [place] Department of Endocrine Surgery Bri Vo M.D. [address] [place] [address], [place] [address] Ms. Karlene Allenrier was seen in the office today in [...] CC: Jailene Dave M.D. Aidan Forrester M.D. Referring Provider: JAILENE DAVE [[id number]] Allergies As of Date: 11/08/2024 Noted Allergy Reaction AMOXICILLIN 06/17/2024 4 - Hives LATEX 11/15/2007 10 - Anaphylaxis CIPROFLOXACIN 05/18/2023 4 - Hives 9 - Itching MORPHINE 05/26/2017 8 - GI Upset NEOSPORIN (YOACDDQZ-VAVIWHAPJF-LF*10/07/2011 2 - Rash SILVER SULFADIAZINE 01/18/2024 14 - Other: See Comments ZINC OXIDE 10/07/2011 2 - Rash Date Reviewed: 11/08/2024 Reviewed by: Shelbie Ortiz LPN - Fully Assessed Reason for Visit: Thyroid Disease [2088] Primary Visit Diagnosis:Multiple thyroid nodules [E04.2] Other Visit Diagnosis:Thyroid nodule [E04.1] Order(s):US THYROID/PARATHYROID (POC) ENDO USE ONLY [5131461] Order #: [id number]. #:[id number]: 1 CONSULT TO ENDOCRINE SURGERY [9159267] Order #: [id number]: 1 Prescriptions as of 11/08/2024 - dulaglutide [...] Pain in joint, l (more content not included)...NormalVeterans Health Administration Thyroid glandon 90-05-3179Dmubxaezk ClinicRadiology Study observation (narrative)[facility] Medical CenterCNPNon 53-90-2797OIFSWdlxuuyuy (ENSUMN) KARLENE TOM ([id number]) 1980 F Date Time Provider Department 11/02/24 BRI VO ENSANKIT During your visit today, we recorded the following information about you: Hi Montalvo 11/07/2024 9:28 AM Addendum 11/07/2024 INTAKE COMPLETED 11/03/2024 INTAKE PENDING-PT. VIEWED Convey ComputerHART MSG.Last read by Karlene Tom at 3:10PM on 11/02/2024. --WAITING ON A RETURN CALL. 11/02/2024 INTAKE PENDING-NEED TSH-SENT MYCHART MSG FOR A RETURN CALL. ENDOCRINE SURGERY PATIENT WORKSHEET Initial Call Date: November 02, 2024 Reason for Consult/ Referral: Thyroid Nodule PATIENT DEMOGRAPHICS Name: Karlene Tom CCF#: [id number] : 1980 AGE: [age] year old Contact Numbers: Home: (home) Work: There is no work phone number on file. PATIENT PHYSICIAN INFORMATION Referring Doctor: Address: Phone: Carpet Inspector Finished: Address: Phone: PCP: Aidan Forrester [address] [place] [address] PAST TREATMENT Office notes: SEE [facility] Medications: NONE THAT APPLY Pre-Visit Testing STUDY/TEST DATE ORDERED/REQUESTED DATE RECEIVED/COMPLETED ENTIRE PANEL TSH 11/02/24 FREE T4 FREE T3 Imaging Reports: SEE [facility] CD of Images: SEE [facility] FNA: yes: 03/2024 FNA Slides: FNA performed at [facility] Has the patient ever had thyroid or parathyroid surgery before: No Operative Reports: NONE AVAILABLE Pathology Reports: SEE EPIC Allergies As of Date: 11/02/2024 Noted Allergy Reaction AMOXICILLIN 06/17/2024 4 - Hives LATEX 11/15/2007 10 - Anaphylaxis CIPROFLOXACIN 05/18/2023 4 - Hives 9 - Itching MORPHINE 05/26/2017 8 - GI Upset NEOSPORIN (FOLMFNYM-PESPMLEDWD-VZ*10/07/2011 2 - Rash SILVER SULFADIAZINE 01/18/2024 14 - Other: See Comments ZINC OXIDE 10/07/2011 2 - Rash Date Reviewed: 09/19/2024 Reviewed by: Aidan Montenegro MD - Fully Assessed Reason for Visit: Consult [173] Cmt: FACE SHEET Primary Visit Diagnosis:Multiple thyroid nodules [E04.2] Order(s):THYROID STIMULATING HORMONE [SQTSH] Order #: [id number] FUTURE Prescriptions as of 11/07/2024 - dulaglutide [...] 04/08/2024 Encounter Status:Closed by HI MONTALVO on 11/02/24[facility] 59-26-6272YUMQKyrmrt Visit (SORAYA) KARLENE TOM ([id number]) 1980 F Date Time Provider Department 09/08/24 1:45 PM BRAYAN DAVE During your visit today, we recorded the following information about you: Temperature Pulse Blood pressure Weight 98.4 degrees 101/minute 120/72 126.9 kg Height 1.721 m Brayan Dave APRN.[employer] CONSULTANT 09/08/2024 2:33 PM Signed [facility] NEW PATIENT VISIT HISTORY OF PRESENT ILLNESS: Patient is 43 year old year old female with a history of obesity class 3, multiple thyroid nodules (managed by Dr. Dave), fatty liver, spina bifida, chronic LBP, vitamin D deficiency presenting as a new patient to me for weight management. Referred by: Boo Luis, Aidan, MD Consultation requested for an opinion regarding [...] L: none D at 1500: hamburger with cayman islander and mushroom, 1 cup [employer]'s fries Sn: [...] no Phentermine: no Topiramate: took previously for SUTTON (didn't take regularly) GLP-1: no Metformin: no [...] visit. PHYSICAL EXAM: BP (more content not included)...NormalMarymount HospitalHEMOGLOBIN A1C (POC)on 36-03-5858SlK8u (Bld) [Mass fraction]5.5 %4.3 - 5.6 %[facility] Comment on above:Location:[facility], [address], [place], [address] Point of care (POC) Hemoglobin A1c (HGBA1C) [...] specific diabetes management situations: The POC device pewter fabricator provides a normal range of 4.2% to 6.5% for the HGBA1C POC test. However, the [place] Diabetes Association guidelines indicate that patients with [...] anemia) that alter red blood cell lifespan. [facility] Medical CenterBasilio Walker 10-54-4668Ndgktpjn identified Cx Nom (U) ORGANISM ID: 1 >=100,000 CFU/ml Escherichia coli ORGANISM ID: 1 (ESCHERICHIA COLI) ANTIBIOTIC INTERPRETATION DEEP STATUS REFERENCE RANGE Ampicillin S 8 F Susceptible <=8 , Intermediate >8 , Resistant >16 Cefazolin S <=4 F Susceptible 0-16 , Intermediate <0 or >16 , Resistant >16 For uncomplicated urinary tract infections, cefazolin results can be used to predict susceptibilityor resistance to cephalexin. Ceftriaxone S <=1 F [...] Susceptible <=32 , Intermediate >32 , Resistant >64AbnormalCGlenbeigh HospitalComment on above:Performed By: #### 630-4 ####[facility] LABLAKEISHA [id number] [address] OF [facility]EE[facility] PRIVATE HOSPITALCNOVon 18-15-1994QPSNBondlh Visit (INTMLN) KARLENE TOM ([id number]) 1980 F Date Time Provider Department 08/31/24 3:20 PM AIDAN MONTENEGRO INTAIDAN During your visit today, we recorded the following information about you: Temperature Pulse Blood pressure Weight 97.8 degrees 69/minute 128/84 127 kg Last Period 08/28/24 Aidan Montenegro MD 08/31/2024 4:58 PM Signed Karlene Maldonado Negro is a [...] # Dispenser Refill Daily Dose* Pymt Type FRONT END DEVELOPER 07/04/2024 07/04/2024 1 Tramadol Hcl 50 Mg Tablet 84.[address] u [id number] [place] (4342) 0 30.00 E [place] 07/04/2024 07/04/2024 1 Pregabalin 75 Mg Capsule 84.[address] u [id number] [place] (4922) 0 1.51 LME [place] Review of [...] Value Date TSH 1.370 (more content not included)...NormalMarymount Hospital CNPNon 63-93-5981AKJKIizovhosb (PAINLN) KARLENE TOM ([id number]) 1980 F Date Time Provider Department 08/10/24 AMRCUS VELAZQUEZ PAINLN During your visit today, we recorded the following information about you: Radha Harvey MA 08/10/2024 10:55 AM Signed Patient was advised of the following: This is a follow up phone call regarding your appointment with Dr Velazquez, which you are scheduled to see at [facility] on 08/10/2024 . 1) Have you been [...] need to reschedule please call us at [phone]. Left VM with new patient policy advised to call office with any questions or concerns Radha Harvey MA Allergies As of Date: 08/10/2024 Noted Allergy Reaction AMOXICILLIN 06/17/2024 4 - Hives LATEX 11/15/2007 10 - Anaphylaxis CIPROFLOXACIN 05/18/2023 4 - Hives 9 - Itching MORPHINE 05/26/2017 8 - GI Upset NEOSPORIN (DICWQJPZ-EATVZVCZZE-ZI*10/07/2011 2 - Rash SILVER SULFADIAZINE 01/18/2024 14 [...] 04/08/2024 Encounter Status:Closed by RADHA HARVEY on 08/10/24[facility] 69-56-2125FUNBDjahom Visit (INTMLN) KARLENE TOM ([id number]) 1980 F Date Time Provider Department 08/01/24 3:40 PM AIDAN MONTENEGRO INTMLN During your visit today, we recorded the following information about you: Weight Last Period 124.5 kg 07/31/24 Aidan Montenegro MD 08/01/2024 5:33 PM Signed Karlene Maldonado Negro is a [...] # Dispenser Refill Daily Dose* Pymt Type FRONT END DEVELOPER 07/04/2024 07/04/2024 1 Tramadol Hcl 50 Mg Tablet 84.[address] Bau [id number] [place] (5172) 0 30.00 MME [place] 07/04/2024 07/04/2024 1 Pregabalin 75 Mg Capsule 84.[address] Bau 7115515 [place] (5172) 0 1.51 LME [place] [...] old female - H/o (more content not included)...NormalMarymount HospitalUS ABD RIGHT UPPER QUADRANTon 48-71-2213IN ABD RIGHT UPPER QUADRANT* * *Final Report* * * DATE OF EXAM: Jun 29 2024 8:16AM VHU 1032 - US ABD RIGHT UPPER QUADRANT [...] No hydronephrosis. Ascites: None. IMPRESSION: Hepatic steatosis. Bicycle Technician: PSCB Transcribe Date/Time: Jul 01 2024 7:01P Dictated by : MICHELLE CAZARES MD This examination was interpreted and the report reviewed and electronically signed by: MICHELLE CAZARES MD on Jul 01 2024 7:02PM EST [id number] Health Matthews Medical Centeron HospitalHISTORY PHYSICALon 55-58-7322MDPIAFQ PHYSICALHNO ID: [id number] Author: SALUD FRANCIS PA-C Service: ? Author Type: Physician Administrative Liaison Type: H&P Filed: 04/21/2024 08:36 Note Text: [...] last visit 03/31/24 and ENT, Dr. Jayden Kramer, last visit 04/05/24. In the process of [...] Taylor, et al. 2017 Guidelines of the [place] Thy[employer] Association for the Diagnosis and Management [...] flexeril as needed. Spine following, Norma Lyman, [employer] CONSULTANT. hronic and stable. Jones Activity Status Index: [...] no. Thick neck: no Hicks present: no Microretrognathia/Micronagthia/Recessed Chin: No DENTAL Dental findings: teeth intact. [...] exotropia with other no (more content not included)...[facility]Av[facility] Thyroid glandon 80-20-1263DikdwptmcOhioHealth Shelby HospitalRadiology Study observation (narrative)[facility] CenterRadiology Study observation (narrative)[facility] THYROID/PARATHYROIDon [id number] THYROID/PARATHYROID* * *Final Report* * * DATE OF EXAM: Feb 08 2024 12:37PM [facility] 1048 - US THYROID/PARATHYROID / [...] points Echogenicity: Hypoechoic, 2 points (heterogeneous) Shape: Wzfqd-wxzi-idvl, 0 points Margin: Smooth, 0 points Echogenic [...] points Echogenicity: Hypoechoic, 2 points (heterogeneous) Shape: Wwzlp-mmer-jrnx, 0 points Margin: Smooth, 0 points Echogenic [...] points Echogenicity: Hypoechoic, 2 points (heterogeneous) Shape: Alovw-eikp-rarx, 0 points Margin: Smooth, 0 points Echogenic [...] points Echogenicity: Hypoechoic, 2 points (heterogeneous) Shape: Taarx-ajko-utfq, 0 points Margin: Smooth, 0 points Echogenic [...] not consider stability or previous biopsy results. Bicycle Technician: ELVA Transcribe Date/Time: Feb 11 2024 7:36A Dictated by : SAM FUNK DO This examination was interpreted and the report reviewed and electronically signed by: SAM FUNK DO on Feb 11 2024 7:41AM EST [id number] HospitalMR Cervical spine WO contraston 02-04-2024* * *Final Report* * * DATE OF [...] tissues are normal in appearance. DIVISION OF RADIOLOGYProvider, [facility] [place] - 02/04/2024 * * *Final Report* * [...] be communicated with the ordering provider via Achievers staff message or phone message by Imaging Support Services within 2 business days of report finalization. --END OF FINDING-- (more content not included)...[facility] Lumbar spine WO contraston 02-04-2024* * *Final Report* * * DATE OF [...] tissues are normal in appearance. DIVISION OF RADIOLOGYProvider, [facility] [place] - 02/04/2024 * * *Final Report* * [...] be communicated with the ordering provider via Achievers staff message or phone message by Imaging Support Services within 2 business days of report finalization. --END OF FINDING-- (more content not included)...[facility] Thoracic spine WO contraston 02-04-2024* * *Final Report* * * DATE OF [...] tissues are normal in appearance. DIVISION OF RADIOLOGYProvider, [facility] [place] - 02/04/2024 * * *Final Report* * [...] be communicated with the ordering provider via Achievers staff message or phone message by Imaging Support Services within 2 business days of report finalization. --END OF FINDING-- Bicycle Technician: ELVA Transcribe Date/Time: February 03 (more content not included)...[facility] Panel InformationOrdered By: [facility] Provider on 83-02-9141Jrwgzjznfxobwg and review of laboratory resultsAbnormalCleveland ClinicRadiology ResultACTIONABLEAbnormal [facility]huja Medical CenterComment on above:This report contains an incidental or actionable finding. [...] provider for the next steps. [facility] Panel Informationon 31-68-3440GKPAXODBJA: 1. Stable postoperative changes with unchanged position [...] be communicated with the ordering provider via Achievers staff message or phone message by Imaging Support Services within 2 business days of report finalization. --END OF FINDING-- Bicycle Technician: ELVA Transcribe Date/Time: Feb 04 2024 8:16A Dictated by : RODOLFO DEAL MD This examination was interpreted and the report reviewed and electronically signed by: RODOLFO DEAL MD on Feb 04 2024 8:38AM [facility] DIVISION OF RADIOLOGYNo Panel Informationon 21-52-2302Lzqncvnap Study observation (narrative)[facility]ja Medical CenterURINALYSIS, REFLEX MICROSCOPICon 47-63-1790Xmskmdta LM.HPF (Urine sed) [#/Area]NegativeNegative /HPFLowell ClinicBilirubin Ql (U)NegativeNegativeLowell ClinicClarity (Unsp spec)Clear ClearClesamaritan north health center ClinicColor (U)YellowYellowUniversity Hospitals Ahuja Medical CenterEpithelial cells LM.HPF (Urine sed) [#/Area]Moderate/HPFUniversity Hospitals Ahuja Medical CenterGlucose Test strip (U) [Mass/Vol]NegativeNegativeUniversity Hospitals Ahuja Medical CenterHemoglobin Ql (U)1+AbnormalNegative [facility] Medical CenterHyaline casts (Urine sed) [#/Area]0 /[LPF]0 /LPFCleveland Clinic Interpretation and review of laboratory resultsAbnormalCleveland ClinicKetones Ql (U)NegativeNegativeUniversity Hospitals Ahuja Medical CenterLeukocyte esterase Test strip Ql (U)1+ AbnormalNegativeLowell ClinicNitrite Ql (U)NegativeNegativeLowell ClinicpH (U)6.0 [pH]NINF - 8.5Cleveland ClinicProtein (U) [Mass/Vol]NegativeNegative [facility] Medical CenterRBC LM.HPF (Urine sed) [#/Area]6-10 /HPFAbnormal0-2 /HPF Lowell ClinicSpecific gravity (U) [Rel density]1.0201.005 - 1.030Clesamaritan north health center ClinicUrobilinogen Ql (U)0.2 EU/dL0.2-1.0 EU/dLUniversity Hospitals Ahuja Medical CenterWBC LM.HPF (Urine sed) [#/Area]11-20 /HPFAbnormal0-5 /HPFMarymount Hospitalveland ClinicThis test was developed and its performance characteristics determined by [facility]'s RobertJAnabel [facility] Pathology and [facility] [place] (-PLMI). It has not been cleared or approved by the FDA. [facility] is regulated under CLIA as qualified to perform high-complexity testing. Thistest is used for clinical purposes. It should not be regarded as investigational or for research. [facility] HospitalUA DIP, URINE (POC)on 05-54-6136LZHJRRQGO UA (POCT)NegativeNegativeUniversity Hospitals Ahuja Medical CenterCLARITY UA (POCT)ClearUniversity Hospitals Ahuja Medical Center COLOR UA (POCT)YellowUniversity Hospitals Ahuja Medical CenterGLUCOSE UA (POCT)NegativeNegative mg/dL [facility] Medical CenterHemoglobin Ql (U)ModerateAbnormalNegativeUniversity Hospitals Ahuja Medical Center Interpretation and review of laboratory resultsAbnormalCleveland ClinicKETONE UA (POCT)NegativeNegative mg/dLUniversity Hospitals Ahuja Medical CenterLEUKOCYTES UA (POCT)SmallAbnormal NegativeUniversity Hospitals Ahuja Medical CenterNITRITE UA (POCT)NegativeNegativeUniversity Hospitals Ahuja Medical CenterPH UA (POCT)6.04.5 - 8.0[facility] Medical CenterProtein Ql (U)NegativeNegative mg/dLProMedica Fostoria Community HospitalPECIFIC GRAVITY UA (POCT)1.0201.005 - 1.030[facility] Hospit[facility]huja Medical CenterUROBILINOGEN UA (POCT)0.2Normal E.U./dLUniversity Hospitals Ahuja Medical CenterLocation:[facility], [address] [place] [address], [address] [place] [address] POINT OF CAREUniversity Hospitals Ahuja Medical CenterXR LUMBAR 3V AP/LAT/L5-S1on 38-40-8534TC LUMBAR 3V AP/LAT/L5-S1* * *Final Report* * * DATE OF [...] Minimal lower lumbar spine disc space narrowing. Bicycle Technician: ELVA Transcribe Date/Time: Jan 25 2024 9:18A Dictated by : MONAE BRIAN MD This examination was interpreted and the report reviewed and electronically signed by: MONAE BRIAN MD on Jan 25 2024 9:19AM EST [id number] Mary Lane Hospital ( test) IA.rapid Ql (U)Ordered By: Gene Chiang on 12-83-0842QAK ( test) Ql (U)Negative NEGATIVEOhioHealth Dublin Methodist HospitalInterpretation and review of laboratory resultsNormalUMercy Health St. Vincent Medical Center Alanine aminotransferase [Enzymatic activity/volume] in Serum or PlasmaOrdered By: Felipe Lovell on 14-17-8268GYW [Catalytic activity/Vol]16 U/L7-52[facility] - DublinAlbumin [Mass/volume] in Serum or Plasma by Bromocresol green (BCG) dye binding methoOrdered By: Felipe Lovell on 14-78-1093Seefkkr BCG dye [Mass/Vol]4.1 g/dL3.5-5.7FCincinnati VA Medical CenterAlkaline phosphatase [Enzymatic activity/volume] in Serum or PlasmaOrdered By: Felipe Lovell on 95-13-0291VTT [Catalytic activity/Vol]69 U/Y58-366SiguqhvaaSelect Medical Ohiohealth Rehabilitation Hospital - DublinAspartate aminotransferase [Enzymatic activity/volume] in Serum or PlasmaOrdered By: Felipe Lovell on 06-65-1708GAQ [Catalytic activity/Vol]14 U/L 13-39[facility] - DublinBasophils Auto (Bld) [#/Vol]Ordered By: PROVIDER TEMP on 36-86-0458Bdccdkcji (Bld) [#/Vol]0.1 10*3/uL0.0-0.2FCincinnati VA Medical CenterBasophils/100 WBC Auto (Bld)Ordered By: PROVIDER TEMP on 43-79-5220Frckigvrb/100 WBC (Bld)0.8 %.[facility] Bilirubin.total [Mass/volume] in Serum or PlasmaOrdered By: Felipe Lovell on 58-01-4085Bezdtskok [Mass/Vol]0.3 mg/dL0.3-1.0[facility] Calcium [Mass/volume] in Serum or PlasmaOrdered By: Felipe Lovell on 05-18-2023 Calcium [Mass/Vol]8.9 mg/dL8.6-10.3FCincinnati VA Medical CenterChloride [Moles/volume] in Serum or PlasmaOrdered By: Felipe Lovell on 80-62-0606Vbjlkhfl [Moles/Vol]105 mmol/A61-778OvxhjqqgbSelect Medical Ohiohealth Rehabilitation Hospital - DublinCreatine kinase [Enzymatic activity/volume] in Serum or PlasmaOrdered By: Felipe Lovell on 96-55-1807FK [Catalytic activity/Vol]37 U/O29-058AgeqdfzixSelect Medical Ohiohealth Rehabilitation Hospital - DublinCreatinine [Mass/volume] in Serum or PlasmaOrdered By: Felipe Lovell on 73-34-2415Akrtkrhprh [Mass/Vol]0.76 mg/dL0.60-1.20[facility] - DublinEosinophils Auto (Bld) [#/Vol]Ordered By: PROVIDER TEMP on 05-18-2023 Eosinophils (Bld) [#/Vol]0.1 10*3/uL0.0-0.45[facility] Eosinophils/100 WBC Auto (Bld)Ordered By: PROVIDER TEMP on 05-18-2023 Eosinophils/100 WBC (Bld)1.4 %.[facility] Hospital - DublinErythrocyte distribution width Auto (RBC) [Ratio]Ordered By: PROVIDER TEMP on 05-18-2023 Erythrocyte distribution width (RBC) [Ratio]12.7 %11.9-15.3FCincinnati VA Medical CenterGlobulin Calc (S) [Mass/Vol]Ordered By: Felipe Lovell on 05-18-2023 Globulin (S) [Mass/Vol]3.0 g/dLSelect Medical Ohiohealth Rehabilitation Hospital - DublinGlucose [Mass/volume] in Serum or PlasmaOrdered By: Felipe Lovell on 42-90-2432Szlcbrm [Mass/Vol]84 mg/zY60-163AbbcmohcfSelect Medical Ohiohealth Rehabilitation Hospital - DublinComment on above:ADA recommended reference rangeRandom Glucose Reference Range is dependent on time and content of last meal. Glucose of more than 200 mg/dL in a nonstressed, ambulatory subject supports the diagnosisof Diabetes Mellitus.Hematocrit Auto (Bld) [Volume fraction]Ordered By: PROVIDER TEMP on 45-61-1176Qspmyrvpav (Bld) [Volume fraction]41.1 %34.0-46.4FCincinnati VA Medical CenterHemoglobin [Mass/volume] in BloodOrdered By: PROVIDER TEMP on 45-72-9824Csbusnzice (Bld) [Mass/Vol]13.9 g/dL11.8-15.4FCincinnati VA Medical CenterLeukocytes [#/volume] corrected for nucleated erythrocytes in Blood by Automated coun Ordered By: PROVIDER TEMP on 27-23-6411CFF corrected for nucl RBC Auto (Bld) [#/Vol]9.7 10*3/uL3.8-11.6FCincinnati VA Medical CenterLymphocytes Auto (Bld) [#/Vol]Ordered By: PROVIDER TEMP on 78-53-5498Ripzowwhluj (Bld) [#/Vol]2.3 10*3/uL1.00-4.8[facility] - DublinLymphocytes/100 WBC Auto (Bld) Ordered By: PROVIDER TEMP on 76-67-7639Nignzlhheag/100 WBC (Bld)23.1 %.[facility] HospitalH Auto (RBC) [Entitic mass]Ordered By: PROVIDER TEMP on 44-24-4287VLR (RBC) [Entitic mass]29.4 pg24.7-34.3FCincinnati VA Medical CenterMCHC Auto (RBC) [Mass/Vol]Ordered By: PROVIDER TEMP on 41-44-5867JPCC (RBC) [Mass/Vol]33.9 g/dL32.0-35.0[facility] - DublinMCV Auto (RBC) [Entitic vol]Ordered By: PROVIDER TEMP on 96-94-3453CII (RBC) [Entitic vol]86.7 qA28-878LkfwadqepSelect Medical Ohiohealth Rehabilitation Hospital - DublinMonocyte distribution width [Entitic volume] in Blood by AutomatedOrdered By: PROVIDER TEMP on 05-18-2023 Monocyte distribution width Auto (Bld) [Entitic vol]15.48 %0.00-20.00[facility] - DublinMonocytes Auto (Bld) [#/Vol]Ordered By: PROVIDER TEMP on 23-03-6150Hwzktstdt (Bld) [#/Vol]0.6 10*3/uL0.0-0.8[facility] - DublinMonocytes/100 WBC Auto (Bld)Ordered By: PROVIDER TEMP on 05-18-2023 Monocytes/100 WBC (Bld)6.0 %.[facility] - DublinNeutrophils Auto (Bld) [#/Vol]Ordered By: PROVIDER TEMP on 40-35-7163Vlrspofbwxh (Bld) [#/Vol]6.7 10*3/uL1.8-7.7FCincinnati VA Medical CenterNeutrophils/100 WBC Auto (Bld) Ordered By: PROVIDER TEMP on 78-50-5897Fibtuzyzovo/100 WBC (Bld)68.7 %.[facility] - DublinNo Panel InformationOrdered By: Felipe Lovell on 68-06-4607Luyhkkwbz GFR (CKD-EPI)> 60.0 mL/MinSelect Medical [facility] Pharmacy Creatinine Clearance (Ircr297.87[facility] Nucleated erythrocytes [Presence] in Blood by Automated countOrdered By: PROVIDER TEMP on 55-27-8575Lkyxclnzk RBC Auto Ql (Bld)0.2 /100{WBC}0-0.5 [facility] Hospital - DublinPlatelet mean volume Auto (Bld) [Entitic vol] Ordered By: PROVIDER TEMP on 05-90-3421Yplcdwsd mean volume (Bld) [Entitic vol] 8.0 fL6.3-10.7FCincinnati VA Medical CenterPlatelets Auto (Bld) [#/Vol] Ordered By: PROVIDER TEMP on 39-85-2681Rcmweiuii (Bld) [#/Vol]247 10*3/uU871-091 [facility] - DublinPotassium [Moles/volume] in Serum or Plasma Ordered By: Felipe Lovell on 61-12-3774Baourleys [Moles/Vol]4.1 mmol/L3.5-5.1 [facility] - DublinProtein [Mass/volume] in Serum or PlasmaOrdered By: Felipe Lovell on 25-01-6323Zafpizu [Mass/Vol]7.1 g/dL6.4-8.9[facility] - DublinRBC Auto (Bld) [#/Vol]Ordered By: PROVIDER TEMP on 51-00-7148NND (Bld) [#/Vol]4.74 10*6/uL3.60-5.00[facility], Incerum or plasma albumin/globulin mass ratioOrdered By: Felipe Lovell on 36-62-8056Yvnewit/Globulin [Mass ratio]1.4 {ratio}[facility], Incodium [Moles/volume] in Serum or PlasmaOrdered By: Felipe Lovell on 37-47-9470Etyzcj [Moles/Vol]138 mmol/B911-546AevivreprSelect Medical Ohiohealth Rehabilitation Hospital - Dublin Troponin I.cardiac [Mass/volume] in Serum or Plasma by Detection limit <= 0.01 ng/Ordered By: Felipe Lovell on 45-71-5149Dpjrolcp I.cardiac DL <= 0.01 ng/mL [Mass/Vol]2.6 pg/mL0.0-15.0[facility] - DublinUrea nitrogen [Mass/volume] in Serum or PlasmaOrdered By: Felipe Lovell on 14-72-4219Gchr nitrogen [Mass/Vol]13 mg/dL7-25[facility] - DublinWBC Auto (Bld) [#/Vol]Ordered By: PROVIDER TEMP on 90-89-7368KTA (Bld) [#/Vol]9.7 10*3/uL 3.8-11.6FCincinnati VA Medical CenterAnesthesiaon 30-13-4724Qzonuvfzfu Patient: KARLENE TOM Age: 42 years Sex: [...] vomiting. Postoperative hydration status: euvolemic. Notes: Normothermia. [facility] CenterAnesthesiaon 32-64-2460SpcbogierhOpuebbj: KARLENE TOM Age: 42 years Sex: Female [...] palate, fauces, uvula visible). Assessment and Plan [place] Society of Anesthesiologists (ASA) physical status classification: Class III. Anesthetic Preoperative Plan Anesthetic technique: General anesthesia. Induction: intravenously. Maintenance airway: Laryngeal mask airway. Special monitoring: Standard ASA monitors.. Risks discussed: nausea, vomiting, sore throat, dental injury, allergic reaction, serious complications, Risks explained in detail as listed on the consent form. The patient's questions were answeredto satisfaction. The patient is OK to proceed. . Informed consent: signed by patient. Notes. This report was completed using voice recognition software. Verbal misinterpretations may occur. oOhioHealth Grove City Methodist HospitalFENTANYL 100mcg INJ on 13-95-9468PSNGHYKU 100mcg INJPRN Response Entered On: 03/18/2023 13:44 EDT Performed [...] 2 Ángela Nieves RN - 03/18/2023 13:44 EDTK[facility] Comment on above:Order Comment: maximum 200 mcg; Phase I PACU only; For pain level 4-6;HIGH ALERT:monitor for adverse effects; potential SOUND ALIKE/LOOK ALIKE-verify med;FENTANYL 100mcg INJPRN Response Entered On: 03/18/2023 13:44 EDT Performed [...] 5 Ángela Nieves RN - 03/18/2023 13:44 [facility] Comment on above:Order Comment: maximum 200 mcg; Phase I PACU only; For pain level 4-6;HIGH ALERT:monitor for adverse effects; potential SOUND ALIKE/LOOK ALIKE-verify med;HYDROmorPHONE 0.5MG/0.5ML INJon 37-63-4206XJYQZxnnBWLTB 0.5MG/0.5ML INJPRN Response Entered On: 03/18/2023 13:26 EDT Performed [...] 6 Ángela Nieves RN - 03/18/2023 13:25 EDTNoOhioHealth Grove City Methodist Hospital Comment on above:Order Comment: maximum 2 mg; Phase I PACU only; For pain level 7-10;potential SOUND ALIKE/LOOK ALIKE-verify med;CAUTION: Hydromorphone IV is 7 times more potent than morphine IV;Inpatient Patient Summaryon 03-18-2023 [facility] [id number] [place] [address] (Patient Copy) Name: NEGRO KARLENE D : 1980 Diagnosis: Allergies: LATEX allergy; Silvadene; Cipro Registration Date: 03/18/23 Current Date Time: 03/18/2023 13:25:07 Address: [address] [place] [address] Phone: [phone] Primary Care Provider: Name: JUANITA SHARMA SR Phone: [phone] Thank you for choosing [facility] for your care. You are very important to us. Our goal is to demonstrate our high quality medical care and provide you with a very good patient experience. You may receive a survey about our service. Please take the time to complete the survey and return it so we can continue to enhance our service. Thank you again for allowing [facility] to care for your medical needs. If you have any questions about your care or follow up information please contact your doctor. Follow-up Instructions With: Address: When: DOMINICK LOPES, Urology [address] [facility], 2nd floor [place] [id number] Business (1) In 2 weeks 04/01/2023 If you [...] Often to Take it Additional Instructions Next DoseDue ibuprofen 200 mg oral tablet (ibuprofen = [...] keeping you healthy. If you are taking medicationsthat are not on the preceding list, please [...] headaches that occur more than 15 days permonth and last 4 hours or longer. Botox [...] infection in the a (more content not included)...[facility] - Main [place] OR Nursing Record - Main OR Summary Primary Physician: DOMINICK LOPES MD Finalized Date/Time: 03/18/23 13:05:52 Pt. Name: KARLENE TOM/Sex: 1980 Female Med Rec #: [id number] Physician: Financial #: [id number] Pt. Type: A Room/Bed: / Admit/Disch: 03/18/23 08:40:30 - Institution: Transport to OR - Main OR Entry 1 By Faustino Coyle RN, FORD Date/Time Leaving 03/18/23 12:14:00 ELIUD-C, FABY [place] Siderails Up? Yes Report Received From Rosa Faye RN Last Modified By: Faustino Coyle RN 03/18/23 12:19:59 Case Times - Main OR Entry 1 Patient In Room Time 03/18/23 12:15:00 Out Room Time 03/18/23 12:59:00 Anesthesia Facility Times Induction Time 03/18/23 12:16:00 Stop Time 03/18/23 12:57:00 [place] Protocol Yes Completed Surgery Start Time 03/18/23 [...] Role Performed Surgeon Primary Anesthesiologist Primary Anesthesia Asst/CROWN BUFFER Time In 03/18/23 12:15:00 03/18/23 12:15:00 03/18/23 12:15:00 Time Out 03/18/23 12:59:00 03/18/23 12:59:00 03/18/23 12:59:00 Procedure Cystoscopy(None) Cystoscopy(None) Cystoscopy(None) Last Modified By: Faustino Coyle RN, RN, Faustino Weber RN 03/18/23 12:57:13 03/18/23 12:57:13 03/18/23 12:57:13 Entry 4 Entry 5 Entry 6 Case Attendee Faustino Coyle RNC, FABY Reilly RN, Elinor Role Performed Medical Attendant Primary PA-C Primary Scrub Primary Time In 03/18/23 12:15:00 03/18/23 12:15:00 03/18/23 12:15:00 Time Out 03/18/23 12:59:00 03/18/23 12:59:00 03/18/23 12:59:00 Procedure Cystoscopy(None) Cystoscopy(None) Cystoscopy(None) Last Modified By: Jonna WILEY, Faustino Coyle RN, Faustino Weber RN 03/18/23 12:57:13 03/18/23 12:57:13 03/18/23 12:57:13 Entry 7 Case Attendee DANIELE KLINE-CLILLI PA-C Second Time In 03/18/23 12:15:00 Time Out 03/18/23 12:59:00 Procedure Cystoscopy(None) Last Modified By: Faustino Coyle RN 03/18/23 12:57:13 General Comments: KAYLENE JETER MD [...] PA-C, FABY, LOCKE under Head, Safety AA-C, PEPE [...] - Main OR Entry (more content not included)...[facility] Operative Reporton 03-96-2011Dukehersj ReportDate of Operation 03/18/2023 13:03 Indication for Surgery Refractory to medical therapy with urgency incontinence. Patient has counseled regarding the options for therapy. Patient decided to proceed with cystoscopy and Botox injection 200 units *Preoperative Diagnosis Neurogenic bladder with urgency incontinence *Postoperative Diagnosis Same Operative Procedure Cystoscopy and Botox injection 200 units Surgeon(s) DOMINICK LOPES MD (Surgeon Primary) Administrative Liaison FABY AGRAWAL PA-C (PA-C Primary) LILLI SANABRIA PA-C (PA-C Second) Indication for Networking Specialist Given the inherent complexity of this surgery, a second surgeon or a surgically skilled physician safety assistant was necessary for the successful completion of this entire operative procedure. The bilingual sales assistant was present for the entire operative procedure and participated in all aspects of patient care This included transporting the patient to the operating room and entering room with the patient, assisting with preoperative positioning, first assisting throughout the entire surgical procedure by functioning as a second safety assistant surgeon, assisting with surgical closure, and finally accompanying the patient to recovery. Anesthesia MAC HUGO ERAZO DO (Certified Master Locksmith) PEPE MURRAY (Provider) *Estimated Blood Loss None [...] and draped in usual fashion. The 21 Icelandic cystoscope was atraumatically introduced into the bladder. Examination of bladder revealed significant trabeculation within the bladder wall. There was no stones. The Olympus needle was used for i njection of 200 units of Botox that were diluted in 10 cc of injectable saline. We injected the Botox at 1 cc/inj. site. These were done in 10 random sites within the bladder including the trigone. Inspection of the injection site revealed no active bleeding. The cystoscope was removed. The patientwas repositioned in supine position. She was awakened. She was transferred to postanesthesia care unit in good condition she tolerated procedure well. [facility] CenterOrder Entry Details- Texton [id number] Entry Details- TextOrder Entry Details Entered On: 03/18/2023 8:37 EDT Performed On: 03/18/2023 9:30 EDT by Rosa Faye RN Speech And Language Assistant Details Speech And Language Assistant Details Review Status : Reviewed, no changes [...] No Rosa Faye RN - 03/18/2023 8:36 [facility] Outpatient Admission Data- Texton [id number] Admission Data- Text Outpatient Admission Data Entered [...] Rosa Faye RN - 03/18/2023 9:30 EDT Niota Coma Eye Opening Response Nikita : Spontaneously Best Verbal Response Nikita : Oriented Best Motor Response Nikita : Obeys simple commands Niota Coma Score : 15 Rosa Faye RN [...] No Rosa Faye RN - 03/18/2023 9:30 EDTNormPremier Health [facility] - Main ORon 05-92-4551MWSD Phase I - Main ORPACU Phase I - Main OR Summary Primary Physician: DOMINICK LOPES MD Finalized Date/Time: 03/18/23 13:57:01 Pt. Name: KARLENE TOM D.O.B./Sex: 1980 Female Med Rec #: [id number] Physician: Financial #: [id number] Pt. Type: A Room/Bed: / Admit/Disch: 03/18/23 08:40:30 - Institution: PACU I - Case Times - Main OR Entry 1 In PACU I 03/18/23 13:00:00 Ready for Transfer 03/18/23 13:52:00 Last Modified By: Ángela Nieves RN 03/18/23 13:56:29 Finalized By: Ángela Nieves RN Document Signatures Signed By: Ángela Nieves RN 03/18/23 13:57NoOhio[facility] HospitalP[facility] II - Main ORon 08-78-7900UZVA Phase II - Main ORPACU Phase II - Main OR Summary Primary Physician: DOMINICK LOPES MD Finalized Date/Time: 03/18/23 14:05:49 Pt. Name: KARLENE TOM/Sex: 1980 Female Med Rec #: [id number] Physician: Financial #: [id number] Pt. Type: A Room/Bed: / Admit/Disch: 03/18/23 08:40:30 - Institution: PACU II - Case Times - Main OR Entry 1 In PACU II 03/18/23 13:52:00 Ready for PACU II n/a Discharge Discharge from PACU 03/18/23 14:05:00 II Last Modified By: Ángela Salazar RN 03/18/23 14:05:39 Finalized By: Ángela Salazar RN Document Signatures Signed By: Ángela Salazar RN 03/18/23 14[facility]05[facility] ORon 34-73-2874Dsmum - Main ORPreop - Main OR Summary Primary Physician: DOMINICK LOPES MD Finalized Date/Time: 03/18/23 12:29:01 Pt. Name: KARLENE TOM/Sex: 1980 Female Med Rec #: [id number] Physician: Financial #: [id number] Pt. Type: A Room/Bed: / Admit/Disch: 03/18/23 08:40:30 - Institution: Preop - Case Times - Main OR Entry 1 Patient Arrival Time 03/18/23 08:48:00 Patient Ready for 03/18/23 09:26:00 Surgery Report Given to Faustino Coyle RN Last Modified By: Rosa Faye RN 03/18/23 12:29:00 Finalized By: Rosa Faye RN Document Signatures Signed By: Rosa Faye RN 03/18/23 09:26 Rosa Faye RN 03/18/23 12:29[facility] TroyU TESTon 12-89-6098Ekcdqgejt Test, UNegativeNAkron Children's HospitalComment on above:Order Comment: Females: 10 and olderPerformed By: #### [id number] ####[facility] [address] [place], [place] [id number] Medical Director: Jhon Landon MDU Preg Internal QCPresentKettering Health TroyComment on above:Order Comment: Females: 10 and olderPerformed By: #### [id number] ####[facility] [address] [place] [address] [phone] Director: Jhon Landon MDUniversal Protocol/Pre-Proc TimeOut-Texton 50-97-3839Cwbzsnhxo Protocol/Pre-Proc TimeOut-TextUniversal Protocol Entered On: 03/18/2023 8:37 EDT Performed On: 03/18/2023 9:32 EDT by Rosa Fyae RN All Procedures Pre-Procedure Verification : Patient [...] Substance: Silvadene ; Type: Allergy ; Updated By:Frannie Chakraborty RN; Reviewed Date: 03/18/2023 8:35 EDT Beta Lucila Beta Lucila History : Patient does not take a Beta Lucila Rosa Faye RN - 03/18/2023 8:36 EDT Site Marking Site Marking : Procedure is Exempt From Marking Site : PERINEUM Laterality [place] Protocol : N/A Site Verification Completed : [...] Date), Correct Procedure, All Team Members are inAgreement Laterality : N/A Faustino Coyle RN - 03/18/2023 13:04 [facility] Preadmission Testing Progress Noteon 05-02-3645Fgsfvawsxnuh Testing Progress NotePositive urine culture results with susceptibility report faxed to Dr. Lopes's office for review. Spoke with Dinora in Dr. Lopes's office to notify. [facility] TroyC URINEon 03-08-2023 C [facility]EC[facility] [address] [place] [phone] Name: KARLENE TOM : 1980 Admitting Provider: Gender Female Financial [phone] : Number: [facility] n: Admit Date: Discharge Microbiology [...] <=4 Ciprofloxacin <0.25 Gentamicin <=1 Nitrofurantoin 64 Piperacillin/Tazobactam <=4 Trimethoprim/Sulfamethoxazole <=20 Klebsiella pneumoniae ssp pneumoniae Antibiotic DEEP Interp Amp/Sulbactam Susceptible Ampicillin Resistant Aztreonam Susceptible Cefazolin Susceptible ____ L=Low, H= High, *= Abnormal, C=Critical, f=Footnote, c=Corrected, i=Interp Data Name: KARLENE TOM Print 03/08/2023 06:32 EDT Date/Time: [facility] [address] [place] [address] [phone] Name: KARLENE TOM : 1980 Admitting Provider: Gender Female Financial [phone] : Number: [facility] n: Admit Date: Discharge Microbiology Date: SUSCEPTIBILITY RESULTS Klebsiella pneumoniae ssp pneumoniae Antibiotic DEEP Interp Ciprofloxacin Susceptible Gentamicin Susceptible Nitrofurantoin Intermediate Piperacillin/Tazobactam Susceptible Trimethoprim/Sulfamethoxazole Susceptible ____ L=Low, H= High, *= Abnormal, C=Critical, f=Footnote, c=Corrected, i=Interp Data Name: KARLENE TOM Print 03/08/2023 06:32 EDT Date/Time:[facility] TroyComment on above:Performed By: #### [id number] ####[facility] [address] [place] [address] Medical Director: Jhon Landon MD Preadmission Testing Progress Noteon 66-73-2759Smpkhljfxvrz Testing Progress NotePREADMISSION TESTING (PAT) INSTRUCTION SHEET [ X] Bring [...] [ X ] Advanced Directive (IF APPLICABLE) ormPremier Health [facility] Hospital SouthBASIC METABOLIC PANELon 11-78-1276Kdrrz gap [Moles/Vol]6 mmol/LLow10 - 20[facility] Comment on above:Performed By: #### BMP #### [address] [place], [place] [address]Tbmchjb [Mass/Vol]8.8 mg/dLNormal8.6 - 10.3St[facility] HospitalComment on above:Performed By: #### BMP #### [address] [place], [place] [address]Yobzosdq [Moles/Vol]107 mmol/UDgfbqw49 - 107St[facility] HospitalComment on above:Performed By: #### BMP #### [address] [place], [place] [address]Jvmhmokkqp [Mass/Vol]0.69 mg/dLNormal0.50 - 1.05St[facility] HospitalComment on above:Performed By: #### BMP #### [address] [place], [place] [address]lCYM FEMALE>90Normal>90St[facility] HospitalComment on above:Result Comment: CALCULATIONS OF ESTIMATED GFR ARE PERFORMED USING THE 2020 CKD-EPI STUDY REFIT EQUATION WITHOUT THE RACE VARIABLE FOR THE IDMS-TRACEABLE CREATININE METHODS. https://jasn.asnjournals.org/content//ASN.6320140255Mzracihsk By: #### BMP #### [address] [place], [place] [address]Tqevocj [Mass/Vol]100 mg/jOScdo93 - 99[facility] Comment on above:Performed By: #### BMP #### [address] [place], [place] [address]KBZ7 (Bld) [Moles/Vol]30 mmol/VRbldwx16 - 32St[facility] HospitalComment on above:Performed By: #### BMP #### [address] [place], [place] [address]Clloledov [Moles/Vol]4.0 mmol/LNormal3.5 - 5.3St[facility] HospitalComment on above:Performed By: #### BMP #### [address] [place], [place] [address]Ffqncu [Moles/Vol]139 mmol/CVonaad579 - 145St[facility] HospitalComment on above:Performed By: #### BMP #### [address] [place], [place] [address]Wfqa nitrogen [Mass/Vol]13 mg/dLNormal6 - 23St[facility] HospitalComment on above:Performed By: #### BMP #### [address] [place], [place] [address]ADJlz 70-24-7761Yilcllabksb distribution width (RBC) [Ratio] 12.5 %Drxxjl51.5 - 14.5St[facility] HospitalComment on above:Performed By: #### CBC #### [address] [place], [place] [address]Dywqipbotj (Bld) [Volume fraction]38.8 %Plliwf83.0 - 46.0St[facility] HospitalComment on above:Performed By: #### CBC #### [address] [place], [place] [address]Jtpshaxjmz (Bld) [Mass/Vol]12.9 g/sVCskdrw98.0 - 16.0[facility] HospitalComment on above:Performed By: #### CBC #### [address] [place], [place] [address]FWOL (RBC) [Mass/Vol]33.2 g/fZEhvuyx28.0 - 36.0[facility] HospitalComment on above:Performed By: #### CBC #### [address] [place], [place] [address]TRL (RBC) [Entitic vol]88 aLRihlbp72 - 100St[facility] HospitalComment on above:Performed By: #### CBC #### [address] [place], [place] [address]RKPVZLBMO RBC0.0 /100 WBCNormal0.0 - 0.0St[facility] HospitalComment on above:Performed By: #### CBC #### [address] [place], [place] [address]Sxonhjpow (Bld) [#/Vol]233 10*3/gSOnllop316 - 450St[facility] HospitalComment on above:Performed By: #### CBC #### [address] [place], [place] [address]QJD2.40 x10E12/LNormal4.00 - 5.20[facility] Comment on above:Performed By: #### CBC #### [address] [place], [place] [address]UXU (Bld) [#/Vol]6.6 10*3/uLNormal4.4 - 11.3[facility] HospitalComment on above:Performed By: #### CBC #### [address] [place], [place] [address]ADF,URINEon 03-03-5157Allk HCG ( test) Ql (U)Negative NormalNegativeSt. Monroe County HospitalComment on above:Performed By: #### HCGU #### [address] [place], [place] [address]Uwkwg Reconciliationon 45-45-2497Xfmqc ReconciliationPage 1 Discharge Reconciliation Document Reconciliation Type: Discharge [...] 2 gram/ D5W 100 mL Premix IVPB (ANCEF)OnceRecommended Infusion Time: 30 minute(s)Clinician Notes: x1 dose [...] online in your Personal Health Record (PHR). 1.Consolidated-Clinical Document Architecture (C-CDA) Patient Discharge Summary This document is a summary of your hospital stay to be kept for your reference.2.C-CDA Visit Summary This document is a summary of your hospital stay to be shared with your follow-up providers (doctor, vice president integrated, physical therapist, etc.). Follow Up with Dr Lopes's office in 2-4 Weeks Macrobid 100 mg oral capsule 1 cap(s) orally 2 times a day May not drive or operate motor vehicles for 24 hours. May shower Post Proced (more content not included)...NormalSt. Monroe County HospitalPatient Profile - Preop v3on 15-44-2761Ydtvaby Profile - Preop j3Ongondc Profile - Preop: Initial Info: Patient DemographicsName: KARLENE TOM Date: 1980 Address: [address] [place] [address] Date/Time Dwuyki21-Ytw-[id number] 06:29 Primary Phone [phone] How to be Addressedkathryn Spoken Language PreferredEnglish Source of Informationpatient Stated Reason for Admissioncysto with botox Primary Contact Name and NumberAlbert [phone] Medications Brought to Hospitalno General Health: Weight in kg125 kilogram(s) Weight in fas584.5 pound(s) Weight Methodstated Height in feet5 feet Height in inches6.97 inch(es) Height in cm170.1 centimeter(s) Height Methodstated BMI (kg/m2)43.201 square meter Patient or Family Member Reaction to Anesthesiano previous reaction Blood Avoidance/Restrictionsnone Previous Transfusion Reactionnot applicable Health Mgmt: Symptoms/Conditions Managed at [facility] Are You no (1) Are You Currently Breastfeedingno Barriers to Managing Healthnone Relationship/Environ: Lives Withsignificant other Living Arrangementshouse Resource/Environmental Concernsnone Anticipated Transition T[place] Services Anticipated at Transitionnone Tobacco Use: Tobacco Useyes Tobacco Typecigarettes Last Tobacco [id number] Number of Packs per Day1 Additional Information: [...] Physical - Surgery > 30 days 06-Oct-2022 05:03NormalSt. Monroe County HospitalCT LSSHERRY Cooley CONon 71-20-8834RG LSPINE W CONCT LSPINE W CON INDICATION: 41 years old; Female.Epidural abscess Symptom/Location/Duration: History of spinal lead. TECHNIQUE: CT of [...] Electronically authenticated by: DESIRAE KATZ Date: 2022-08-26 00:33[facility] URINE PROFILEon 51-52-8537Fcnifwgwi Ql (U)NegativeNormal NEGATIVEParkview HealthComment on above:Performed By: #### UMICRO, ERUR #### [facility] [address] [place] [address] Dr. Mirtha Alvaradoarity (U)CLEARNormalCLEARParkview HealthComment on above: Performed By: #### LULÚRO, ERUR #### [facility] [address] [place] [address] Dr. Mirtha Malagon (U)LT. YELLOWNormalYELLOWParkview HealthComment on above:Performed By: #### UMICRO, ERUR #### [facility] [address] [place] [address] Dr. Mirtha Gusman micrscopic examination will be performed if indicated. NormalParkview HealthComment on above:Performed By: #### UMICRO, ERUR #### [facility] [address] [place] [address] Dr. Mirtha JimenezGlucose Ql (U)NegativeNormalNEGATIVEParkview HealthComment on above:Performed By: #### UMICRO, ERUR #### [facility] [address] [place] [address] Dr. Mirtha JiemnezHemoglobin Ql (U)TRACE-INTACTAbnormalNEGATIVEParkview HealthComment on above:Performed By: #### UMICRO, ERUR #### [facility] [address] [place] [address] Dr. Mirtha JimenezKetones Ql (U)NegativeNormalNEGATIVEParkview HealthComment on above:Performed By: #### CHICO ERUR #### [facility] [address] [address] [address] Mirtha JimenezLEUKOCYTESNegativeNormalNEGATIVEThe Veterans Health AdministrationComment on above:Performed By: #### CHICO, ERUR #### [facility] [address] [address] [address] Mirtha Quintanillatrite Ql (U)NegativeNormalNEGATIVEThe Veterans Health AdministrationComment on above:Performed By: #### CHICO ERUR #### [facility] [address] [address] [address] Mirtha JimenezpH (U)7.0 [pH]Normal5-9The Veterans Health AdministrationComment on above: Performed By: #### CHICO ERUR #### [facility] [address] [address] [address] Mirtha JimenezSPEC GRAVITY1.341Petxkh1.005-<=1.025The Veterans Health AdministrationComment on above:Performed By: #### CHICO ERUR #### [facility] [address] [address] [address] Mirtha Reina PROTEINNegativeNormalNEGATIVE/ TRACEThe [facility] on above:Performed By: #### CHICO ERUR #### [facility] [address] [address] [address] Mirtha Ordonez MICRO INDINDICATEDNormalThe Veterans Health AdministrationComment on above: Performed By: #### CHICO, ERUR #### [facility] [address] [address] [address] Mirtha JimenezUrobilinogen Qn (U)0.2 {John'U}/dLNormal0.2 - 1.0The Veterans Health AdministrationComment on above:Performed By: #### CHICO, ERUR #### [facility] [address] [address] [address] Mirtha JimenezLACTATE/LACTIC ACIDon 97-49-5072Lskgoug [Moles/Vol]0.9 mmol/L Normal0.4-1.9The Veterans Health AdministrationComment on above:Performed By: #### LACT #### [facility] [address] [place] [address] Dr. Mirtha Roberson MICROSCOPIC ONLYon 45-98-4847GQNSIHOLIGYKEPhgqecalJAVM SEEN Parkview HealthComment on above:Performed By: #### DDIM #### [facility] [address] [place] [address] Dr. Mirtha Mendosa identified Cx Nom (U)NOT INDICATEDNoDayton Children's HospitalCompromedica [facility] on above:Performed By: #### DDIM #### [facility] [address] [place] [address] Dr. Mirtha Fernandez SEENNormalNONE SEENPremier Health [facility] on above:Performed By: #### DDIM #### [facility] [address] [place] [address] Dr. Mirtha Watsonystals LM Nom (Urine sed)NONE SEENNormalNONE SEENPremier Health Upper Valley Medical Center on above:Performed By: #### DDIM #### [facility] [address] [place] [address] Dr. Shannon ChangEpithelial cells LM Ql (Urine sed)FEWAbnormalNONE SEEN /RAREThe Veterans Health AdministrationCompromedica cold[facility] hospital on above:Performed By: #### DDIM #### [facility] [address] [place] [address] Dr. Mirtha Rodríguez SEENNormalNONE SEENParkview HealthCompromedica coldwater regional hospital on above:Performed By: #### DDIM #### [facility] [address] [place] [address] Dr. Mirtha JimenezXylubHYF1-9Iuolzwha9-0Dsw [facility] on above:Performed By: #### DDIM #### [facility] [address] [place] [address] Dr. Mirtha JimenezWBCNONClaudia SEENNormalNONE SEENParkview HealthCompromedica coldwater regional hospital on above: Performed By: #### DDIM #### [facility] [address] [place] [address] Dr. Mirtha Pool 87-28-3367Mrgumeqfxor peptide B (Bld) [Mass/Vol]189.0 pg/mL Normal<=450.0The Veterans Health AdministrationComment on above:Performed By: #### CMP, HSTROPN, BNP #### [facility] [address] [place] [address] Dr. Mirtha Santamaria AUTO DIFFon 93-93-0421GWDX #0.0 103/ulNormal0.0-0.1The Veterans Health AdministrationComment on above:Performed By: #### CBC #### [facility] [address] [place] [address] Dr. Mirtha Lacyphils/100 WBC (Bld)0.4 %Normal0.2-2.0[facility] Comment on above:Performed By: #### CBC #### [facility] [address] [place] [address] Dr. Mirtha Cuba #0.1 103/ulNormal0.0-0.7The Veterans Health AdministrationComment on above: Performed By: #### CBC #### [facility] [address] [place] [address] Dr. Mirtha Perazaosinophils/100 WBC (Bld)1.4 %Normal0.9-7.0[facility] Comment on above:Performed By: #### CBC #### [facility] [address] [place] [address] Dr. Mirtha Perazarythrocyte distribution width (RBC) [Ratio]12.6 %Eidmbi34.0-15.0 The Veterans Health AdministrationComment on above:Performed By: #### CBC #### [facility] [address] [place] [address] Dr. Mirtha JimenezHematocrit (Bld) [Volume fraction]37.9 %Vxmpmp11.0-48.0The Veterans Health AdministrationComment on above:Performed By: #### CBC #### [facility] [address] [place] [address] Dr. Mirtha JimenezHemoglobin (Bld) [Mass/Vol]12.8 g/xCTrgmck73.0-16.0The [facility] Health AdministrationComment on above:Performed By: #### CBC #### [facility] [address] [place] [address] Dr. Mirtha Franco #0.07 10e3/ulCritically high0.00-0.03The [facility] Comment on above:Performed By: #### CBC #### [facility] [address] [place] [address] Dr. Mirtha Franco %1.0 %Critically high0.0-0.5The Veterans Health AdministrationComment on above:Performed By: #### CBC #### [facility] [address] [place] [address] Dr. Mirtha Lew #0.4 103/ulCritically low1.2-3.8The [facility] Comment on above:Performed By: #### CBC #### [facility] [address] [place] [address] Dr. Mirtha Juddhocytes/100 WBC (Bld)5.4 %Critically low20.5-60.0The Veterans Health AdministrationComment on above:Performed By: #### CBC #### [facility] [address] [place] [address] Dr. Mirtha AguilarUAL DIFF REQNONormalThe Veterans Health AdministrationComment on above: Performed By: #### CBC #### [facility] [address] [place] [address] Dr. Mirtha Wong (RBC) [Entitic mass]29.4 kzRvnxsg74.7-34.0The Veterans Health AdministrationComment on above:Performed By: #### CBC #### [facility] [address] [place] [address] Dr. Mirtha Wong (RBC) [Mass/Vol]33.8 g/iPLhlbbn88.9-35.2The [facility] Health AdministrationComment on above:Performed By: #### CBC #### [facility] [address] [place] [address] Dr. Mirtha WongV (RBC) [Entitic vol]86.9 jEQlflev30.0-99.0The Veterans Health AdministrationComment on above:Performed By: #### CBC #### [facility] [address] [place] [address] Dr. Mirtha Juarez #0.4 103/ulNormal0.3-0.8The [facility] Health AdministrationComment on above:Performed By: #### CBC #### [facility] [address] [place] [address] Dr. Mirtha Donahueocytes/100 WBC (Bld)6.0 %Normal1.7-12.0The [facility] Comment on above:Performed By: #### CBC #### [facility] [address] [place] [address] Dr. Mirtha Sena #6.2 103/ulNormal1.4-6.5The [facility] Health AdministrationComment on above:Performed By: #### CBC #### [facility] [address] [place] [address] Dr. Mirtha Sortoutrophils/100 WBC (Bld)85.8 %Critically high43.0-75.0The Veterans Health AdministrationComment on above:Performed By: #### CBC #### [facility] [address] [place] [address] Dr. Mirtha Myleslet mean volume (Bld) [Entitic vol]10.1 fLNormal9.5-13.5The [facility] Health AdministrationComment on above:Performed By: #### CBC #### [facility] [address] [place] [address] Dr. Mirtha JimenezPLT190 103/xqPklsst423-907Nek Veterans Health AdministrationComment on above: Performed By: #### CBC #### [facility] [address] [place] [address] Dr. Mirtha JimenezRBC4.36 106/ulNormal4.20-5.40The [facility] Health AdministrationComment on above:Performed By: #### CBC #### [facility] [address] [place] [address] Dr. Mirtha JimenezWBC7.2 103/ulNormal4.0-11.0The [facility] Hospitalment on above: Performed By: #### CBC #### [facility] [address] [place] [address] Dr. Mirtha Marie BLOODon 17-83-8731Fwaktamvopy examination of blood, cultureCulture Observations: NO GROWTH AT 5 DAYS. Isolate 1 BC_BA_NANormalThe Veterans Health AdministrationComment on above:Performed By: #### DDIM #### [facility] [address] [place] [address] Dr. Mirtha JimenezMicroscopic examination of blood, cultureCulture Observations: NO GROWTH AT 5 DAYS.NormalThe [facility] Health AdministrationComment on above:Performed By: #### BLDCX1 #### [facility] [address] [place] [address] Dr. Mirtha Mireles-DIMERon 09-31-9407W-DIMER0.46 mg/L FEUNormal<=0.59The [facility] on above:Performed By: #### DDIM #### [facility] [address] [place] [address] Dr. Mirtha Mcdaniel COMMENTSSEE [facility] on above:Result Comment: Increases in D-Dimer concentration observed with thromboembolic events [...] stress, and generalized hospitalization. Performed By: #### DDIM #### [facility] [address] [place] [address] Dr. Mirtha JimenezLACTATE/LACTIC ACIDon 97-27-4776Uzsjcqr [Moles/Vol]1.4 mmol/L Normal0.4-1.9The [facility] Hospitalment on above:Performed By: #### DDIM #### [facility] [address] [place] [address] Dr. Mirtha Peralta 14(COMP METB)on 86-81-3139Ihqfwhl [Mass/Vol]3.3 g/dL Critically low3.4-5.0The Veterans Health AdministrationComment on above:Performed By: #### CMP, HSTROPN, BNP #### [facility] [address] [place] [address] Dr. Mirtha JimenezAlbumin/Globulin [Mass ratio]0.9 {ratio}NormalThe Veterans Health AdministrationComment on above:Performed By: #### CMP, HSTROPN, BNP #### [facility] [address] [place] [address] Dr. Mirtha Kathleen [Catalytic activity/Vol]75 U/QJkjowu73-027Gto Veterans Health AdministrationComment on above:Performed By: #### CMP, HSTROPN, BNP #### [facility] [address] [place] [address] Dr. Mirtha Rm [Catalytic activity/Vol]20 U/YNyrjkv51-72Hom [facility] AdministrationComment on above:Performed By: #### CMP, HSTROPN, BNP #### [facility] [address] [place] [address] Dr. Mirtha Gupta gap [Moles/Vol]9.7 mmol/LNormalThe [facility] Health AdministrationComment on above:Performed By: #### CMP, HSTROPN, BNP #### [facility] [address] [place] [address] Dr. Mirtha JimenezAST [Catalytic activity/Vol]18 U/TQibrmb77-64Rux Veterans Health AdministrationComment on above:Performed By: #### CMP, HSTROPN, BNP #### [facility] [address] [place] [address] Dr. Mirtha JimenezBilirubin [Mass/Vol]0.2 mg/dLNormal0.2-1.0[facility] Comment on above:Performed By: #### CMP, HSTROPN, BNP #### [facility] [address] [address] [address] Mirtha JimenezCalcium [Mass/Vol]8.6 mg/dLNormal8.5-10.1[facility] Comment on above:Performed By: #### CMP, HSTROPN, BNP #### [facility] [address] [address] [address] Mirtha JimenezChloride [Moles/Vol]101 mmol/AGbtkva65-194Idk [facility] Comment on above:Performed By: #### CMP, HSTROPN, BNP #### [facility] [address] [address] [address] Mirtha JimenezCO2 [Moles/Vol]27.6 mmol/SAfexpj37.0-32.0[facility] Comment on above:Performed By: #### CMP, HSTROPN, BNP #### [facility] [address] [place] [address] Dr. Mirtha JimenezCreatinine [Mass/Vol]0.68 mg/dLNormal0.55-1.02The [facility] AdministrationComment on above:Performed By: #### CMP, HSTROPN, BNP #### [facility] [address] [place] [address] Dr. Mirtha PerazaGFR-AF URUGUAYAN>60Normal>=60The [facility] AdministrationComment on above:Performed By: #### CMP, HSTROPN, BNP #### [facility] [address] [place] [address] Dr. Mirtha PerazaGFR-NON AF URUGUAYAN>60Normal>=60The [facility] AdministrationComment on above:Performed By: #### CMP, HSTROPN, BNP #### [facility] [address] [place] [address] Dr. Mirtha JimenezGlobulin (S) [Mass/Vol]3.8 g/dLNormalThe [facility] AdministrationComment on above:Performed By: #### CMP, HSTROPN, BNP #### [facility] [address] [place] [address] Dr. Mirtha JimenezGlucose [Mass/Vol]82 mg/bGOqhysu89-568Ldn [facility] Comment on above:Performed By: #### CMP, HSTROPN, BNP #### [facility] [address] [place] [address] Dr. Mirtha JimenezPotassium [Moles/Vol]4.3 mmol/LNormal3.5-5.1[facility] Comment on above:Performed By: #### CMP, HSTROPN, BNP #### [facility] [address] [place] [address] Dr. Mirtha JimenezProtein [Mass/Vol]7.1 g/dLNormal6.4-8.2[facility] Comment on above:Performed By: #### CMP, HSTROPN, BNP #### [facility] [address] [place] [address] Dr. Mirtha JimenezSodium [Moles/Vol]134 mmol/LCritically vez978-560Jxa [facility] AdministrationComment on above:Performed By: #### CMP, HSTROPN, BNP #### [facility] [address] [place] [address] Dr. Mirtha JimenezUrea nitrogen [Mass/Vol]13.0 mg/dLNormal7.0-18.0The [facility] AdministrationComment on above:Performed By: #### CMP, HSTROPN, BNP #### [facility] [address] [place] [address] Dr. Mirtha Callejas nitrogen/Creatinine [Mass ratio]19.1 mg/mgNormalThe [facility] AdministrationComment on above:Performed By: #### CMP, HSTROPN, BNP #### [facility] [address] [place] [address] Dr. Mirtha JimenezRESPIRATORY PANEL PLUSon 40-92-6715RmsvkuhkooQhn detectedNormal NOT DETECTEDThe [facility] AdministrationComment on above:Performed By: #### DDIM #### [facility] [address] [place] [address] Dr. Mirtha Cisneros. ParapertusisNot detectedNormalNOT DETECTEDThe [facility] AdministrationComment on above:Performed By: #### DDIM #### [facility] [address] [address] [address] Mirtha Cisneros. PertussisNot detectedNormalNOT DETECTEDThe [facility] Comment on above:Performed By: #### DDIM #### [facility] [address] [address] [address] Mirtha JimenezChlamydia PneumoniaeNot detectedNormalNOT DETECTEDThe [facility] AdministrationComment on above:Performed By: #### DDIM #### [facility] [address] [address] [address] Mirtha JimenezCoronavirus 229ENot detectedNormalNOT DETECTEDThe [facility] AdministrationComment on above:Performed By: #### DDIM #### [facility] [address] [address] [address] Mirtha JimenezCoronavirus CHY4Dyf detectedNormalNOT DETECTEDThe [facility] AdministrationComment on above:Performed By: #### DDIM #### [facility] [address] [address] [address] Mirtha JimenezCoronavirus FI17Eer detectedNormalNOT DETECTEDThe [facility] AdministrationComment on above:Performed By: #### DDIM #### [facility] [address] [address] [address] Mirtha JimenezCoronavirus JT15Grp detectedNormalNOT DETECTEDThe [facility] on above:Performed By: #### DDIM #### [facility] [address] [address] [address] Mirtha JimenezInfledmundo A H1 2009Not detectedNormalNOT DETECTEDThe [facility] AdministrationComment on above:Performed By: #### DDIM #### [facility] [address] [address] [address] Mirtha JimenezInfledmundo A H3Not detectedNormalNOT DETECTEDThe [facility] Comment on above:Performed By: #### DDIM #### [facility] [address] [address] [address] Mirtha Patel BNot detectedNormalNOT DETECTEDThe [facility] Comment on above:Performed By: #### DDIM #### [facility] [address] [address] [address] Mirtha VillafanaapneumovirusNot detectedNormalNOT DETECTEDThe [facility] on above:Performed By: #### DDIM #### [facility] [address] [address] [address] Mirtha Hallman. PneumoniaeNot detectedNormalNOT DETECTEDThe [facility] AdministrationComment on above:Performed By: #### DDIM #### [facility] [address] [address] [address] Mirtha Wang 1Not detectedNormalNOT DETECTEDThe [facility] AdministrationComment on above:Performed By: #### DDIM #### [facility] [address] [address] [address] Mirtha Wnag 2Not detectedNormalNOT DETECTEDThe [facility] AdministrationComment on above:Performed By: #### DDIM #### [facility] [address] [address] [address] Mirtha Wang 3Not detectedNormalNOT DETECTEDThe [facility] on above:Performed By: #### DDIM #### [facility] [address] [address] [address] Mirtha Wang 4Not detectedNormalNOT DETECTEDThe [facility] on above:Performed By: #### DDIM #### [facility] [address] [address] [address] Mirtha JimenezRhseble/EnterovirusNot detectedNormalNOT DETECTEDThe [facility] AdministrationComment on above:Performed By: #### DDIM #### [facility] [address] [address] [address] Mirtha Wyatt Header 1RESPIRATORY PANEL: VIRUSESOhioHealth on above:Performed By: #### DDIM #### [facility] [address] [address] [address] Mirtha Wyatt Header 2RESPIRATORY PANEL: BACTERIANoDayton Children's HospitalComment on above:Performed By: #### DDIM #### [facility] [address] [address] [address] Mirtha NievesVNot detectedNormalNOT DETECTEDThe [facility] on above:Performed By: #### DDIM #### [facility] [address] [place], [place] [address] Dr. Mirtha JimenezSARS-CoV-2 (COVID-19) RNA KAREN+probe Ql (Unsp spec)Detected Critically abnormalNOT DETECTEDThe [facility] on above:Performed By: #### DDIM #### [facility] [address] [address] [address] Mirtha Jimenez, HIGH SENSITIVITYon 32-76-3125EBCCJV8.7 pg/mLNormal 4.0-51.3The [facility] on above:Result Comment: CUT-OFF POINTS HAVE BEEN ESTABLISHED BASED ON THE FOURTH UNIVERSAL DEFINITIONS OF MYOCARDIAL INFARCTION. THE UPPER REFERENCE LIMIT (URL) OF TROPONIN, DEFINED THE 99TH PERCENTILE OF cTnI DISTRIBUTION IN A REFERENCE POPULATION, HAS BEEN CONFIRMED THE DECISION THRESHOLD FOR LA DIAGNOSIS.Performed By: #### CMP, HSTROPN, BNP #### [facility] [address] [address] [address] Mirtha JimenezXR CHEST 1 Von [id number] CHEST 1 VEXAM: XR CHEST 1 V HISTORY: CHEST PAIN, UNSPECIFIED COMPARISON(S): None. TECHNIQUE: Single portable AP chest radiograph FINDINGS: Support devices: None. Lungs/pleura: Lungs are clear. No pleural effusion or pneumothorax. Heart/mediastinum: Heart and mediastinum are normal. Bones/Soft Tissues: No acute osseous abnormality. Upper abdomen: Imaged upper abdomen is unremarkable. IMPRESSION: No evidence for acute cardiopulmonary disease. Electronically authenticated by: WAYNE ROBLES Date: 2022-08-25 21:00[facility] [place] ( test) IA.rapid Ql (U)Ordered By: Simone Warren on [id number] ( test) Ql (U)NegativeSelect Medical [facility] Hospital - DublinCOVID-19 SOFIAOrdered By: Simone Warren on 06-06-2022 SARS-CoV+SARS-CoV-2 (COVID-19) Ag IA.rapid Ql (Resp)NegativeNegativeSelect Medical [facility] Rehabilitation Hospital - DublinComment on above:This is a duplicate Porsha SARS Antigen (JIGNESH) result to be used for statistical tracking purpose only.No Panel InformationOrdered By: Simone Warren on [id number] Antigen (LFIA) [facility] DublinUrinalysis - AUTOMATEDon [id number] (U)clearGenscript Technology D-Share Other Bilirubin Ql (U)NegativeGenscript Technology D-Share Other Color (U)rust-yellowRural Retreat D-Share Other Glucose Ql (U)NegativeGenscript Technology D-Share Other Hemoglobin Ql (U)Open Box TechnologiesGenscript Technology D-Share Other Ketones Ql (U)NegativeRural Retreat D-Share Other Leukocyte esterase Test strip Ql (U)Open Box TechnologiesGenscript Technology D-Share Other Nitrite Ql (U)PositiveGenscript Technology D-Share Other pH (U)6.0 [pH][place] [employer]-Share Other Protein Ql (U)NegativeRural Retreat D-Share Other Specific gravity (U) [Rel density]1.030[employer] [place] [employer]-Share Other Urobilinogen (U) [Mass/Vol]0.2 mg/dLRural Retreat D-Share Other Urinalysis - AUTOMATEDGenscript Technology D-Share Other Urine Cultureon 74-10-6992Eopgs Culture>100,000[employer] [place] [employer]-Share Other Urine Culture<16[employer] [place] [employer]-Share Other Urine Culture>16[place] [place] [employer]-Share Other Urine Culture<4North D-Share Other Urine Dcfssxz6Jypwz D-Share Other Urine Culture<2North D-Share Other Urine Culture<1North D-Share Other Urine Culture<0.5North D-Share Other urine Culture<32North D-Share Other Urine Culture<2/38Nort D-Share Other C REACTIVE PROTEINon 21-40-8028UPL [Mass/Vol]6.9 mg/L Normal0.0-7.0The [facility] HospitalComment on above:Performed By: #### [id number] #### [facility] [address] [place] [address], [facility] HOSPITALCBC W/DIFFon [id number] BASOPHILS0.0 10*3/uLNormal 0.0-0.2The [facility] HospitalComment on above:Performed By: #### 89999, 53146 #### [facility] [address] [place] [address], USAABS IMM GRANS0.1 10*3/uLNormal0.0-0.2The [facility] HospitalComment on above:Performed By: #### 59180, 28189 #### [facility] [address] [place] [address], USAABS NEUTROPHILS5.7 10*3/uLNormal1.6-7.6The [facility] HospitalComment on above:Performed By: #### 59608, 43930 #### [facility] [address] [place] [address], USABasophils/100 WBC (Bld)0.4 %Normal0.0-1.0The [facility] HospitalComment on above:Performed By: #### 61211, 80645 #### [facility] [address] [place] [address], USAEosinophils (Bld) [#/Vol]0.1 10*3/uLNormal0.0-0.5The [facility] HospitalComment on above:Performed By: #### 65112, 70095 #### [facility] [address] [place] [address], USAEosinophils/100 WBC (Bld)1.2 %Normal0.0-6.0The [facility] HospitalComment on above:Performed By: #### 43129, 85276 #### [facility] [address] [place] [address], USAErythrocyte distribution width (RBC) [Ratio]12.5 %Normal 11.5-15.0The [facility] HospitalComment on above:Performed By: #### 84640, 80262 #### [facility] [address] [place] [address], USAHematocrit (Bld) [Volume fraction]43.2 %Krfspo45.0-45.0The [facility] HospitalComment on above:Performed By: #### 54692, 88150 #### [facility] [address] [place] [address], USAHemoglobin (Bld) [Mass/Vol]14.7 g/zJUobgkd48.0-15.0The [facility] HospitalComment on above:Performed By: #### 76523, 80526 #### [facility] [address] [place] [address], USAIMMATURE GRANS0.7 %Normal0.0-1.0The [facility]on HospitalComment on above:Performed By: #### 18334, 44212 #### [facility] [address] [place] [address], USALymphocytes (Bld) [#/Vol]1.8 10*3/uLNormal1.2-4.0The [facility] HospitalComment on above:Performed By: #### 85859, 44794 #### [facility] [address] [place] [address], [facility] GENERAL HOSPITALLymphocytes/100 WBC (Bld)22.0 %Fjbexj90.0-45.0The [facility] HospitalComment on above:Performed By: #### 18773, 01435 #### [facility] [address] [place] [address], [facility] (RBC) [Entitic mass]29.5 auSdxdga15.0-33.0The [facility] HospitalComment on above:Performed By: #### 14857, 21161 #### [facility] [address] [place] [id number], [facility] GENERAL HOSPITALMCHC (RBC) [Mass/Vol]34.0 g/iCJebzuk06.0-35.0The [facility] HospitalComment on above:Performed By: #### 84692, 40002 #### [facility] [address] [place] [address], [facility] HOSPITALMCV (RBC) [Entitic vol]86.6 lHIgepxt03.0-98.0The [facility] HospitalComment on above:Performed By: #### 07936, 60449 #### [facility] [address] [place] [address], USAMonocytes (Bld) [#/Vol]0.4 10*3/uLNormal0.1-1.0The [facility] HospitalComment on above:Performed By: #### 39142, 63971 #### [facility] [address] [place] [address], USAMONOS5.3 %Normal5.0-12.0The [facility] HospitalComment on above:Performed By: #### 58879, 74936 #### [facility] [address] [place] [address], USANeutrophils/100 WBC (Bld)70.4 %Htzqwo32.0-72.0The [facility] HospitalComment on above:Performed By: #### 57358, 64953 #### [facility] [address] [place] [address], USANucleated RBC/100 WBC (Bld) [Ratio]0 %Normal0-0The [facility] HospitalComment on above:Performed By: #### 51003, 56757 #### [facility] [address] [place] [address], USAPLAT FPI426 10*3/kPDaxyxf488-863Bla [facility] HospitalComment on above:Performed By: #### 54211, 48757 #### [facility] [address] [place] [address], [facility]AL HOSPITALRBC (Bld) [#/Vol]4.99 10*6/uLNormal3.80-5.00The [facility] HospitalComment on above:Performed By: #### 38432, 81745 #### [facility] [address] [place] [address], [facility] HOSPITALWBC (Bld) [#/Vol]8.12 10*3/uLNormal4.00-10.60The [facility] HospitalComment on above:Performed By: #### 57600, 52247 #### [facility] [address] [place] [address], USASEDIMENTATION RATEon 10-28-2674XJJ RATE22 mm/hrHigh0-20The [facility] HospitalComment on above:Performed By: #### 99348, 84027 #### [facility] [address] [place] [address], [facility] Vital Signs Date TimeVital SignValuePerforming QuoaktjlfMmrvzrdo15-28-8590 16:31-0400Body zjigrq610.18 cmAmanda Cinthia GOLD LEAF GILDER Work Phone: [facility]09-15-2025 16:31-0400 Body mass index (BMI) [Ratio]43.7 kg/d9Daphrt Cinthia GOLD LEAF GILDER Work Phone: [facility]09-15-2025 16:31-0400 Body dntvvnubfbq734 [degF]Pepe Cinthia GOLD LEAF GILDER Work Phone: [address] [place], [place] [address]246[address]-15-2025 16:31-0400 Body kdxpat900.77 kgAmanda Cinthia GOLD LEAF GILDER Work Phone: [address] [place], [place] 0246609-15-2025 16:31-0400 Diastolic blood ibqankba81 mm[Hg]Pepe Cinthia GOLD LEAF GILDER Work Phone: [phone] [place], [place] 0246609-15-2025 16:31-0400 Heart rate85 /minAmanda Cinthia GOLD LEAF GILDER Work Phone: [address] [place], [place] 0246609-15-2025 16:31-0400 Respiratory rate19 /minAmanda Cinthia GOLD LEAF GILDER Work Phone: [address] [place], [place] [address]-15-2025 16:31-0400 SaO2% (BldA) [Mass fraction]90 %Pepe Cinthia GOLD LEAF GILDER Work Phone: [facility]09-15-2025 16:31-0400 Systolic blood muxyrcqz005 mm[Hg]Pepe Cinthia GOLD LEAF GILDER Work Phone: [address] [place], [place] [address]606-27-2025 15:49-0400 Body wdakoj205.2 cmAlexander Gallegos MD Work Phone: [facility]06-27-2025 15:49-0400Body mass index (BMI) [Ratio]44.3 kg/e3VbqxnAlexander Gallegos MD Work Phone: [facility]06-27-2025 15:49-0400Body temperature 99.39 [degF]Alexander Gallegos MD Work Phone: [facility]06-27-2025 15:49-0400Body ubzmey912.3 kgAlexander Gallegos MD Work Phone: [facility]06-27-2025 15:49-0400Diastolic blood oxdbuwqt41 mm[Hg]Alexander Gallegos MD Work Phone: [facility]06-27-2025 15:49-0400Heart rate78 /min Alexander Gallegos MD Work Phone: [facility]06-27-2025 15:49-8315FhU9% (BldA) [Mass fraction]99 %Alexander Gallegos MD Work Phone: [facility]06-27-2025 15:49-0400Systolic blood lvmtdnno805 mm[Hg]Alexander Gallegos MD Work Phone: [facility]04-01-2025 16:30-0400Body syonay066.2 cmRnayeli Forrester MD Work Phone: [facility]04-01-2025 16:30-0400Body mass index (BMI) [Ratio]44.13 kg/l2CfllyoAidan Forrester MD Work Phone: [facility]04-01-2025 16:30-0400Body ifkxqk553.8 kgAidan Forrester MD Work Phone: [phone]04-01-2025 16:30-0400Diastolic blood scmixpzs33 mm[Hg]Aidan Forrester MD Work Phone: [phone]04-01-2025 16:30-0400Heart rate74 /min Aidan Forrester MD Work Phone: [phone]04-01-2025 16:30-0819UfZ5% (BldA) [Mass fraction]100 %Aidan Forrester MD Work Phone: [phone]04-01-2025 16:30-0400Systolic blood mm[Hg]Aidan Forrester MD Work Phone: [facility]03-26-2025 10:24-0400Body pikwch471.2 cmPacc 2 Work Phone: [facility] CenterComment on above:Pt -97-2066 10:24-0400Body mass index (BMI) [Ratio]43.07 kg/m2Pacc 2 Work Phone: [facility]03-26-2025 10:24-0400Body wpqrax727.74 kgPacc 2 Work Phone: [facility] CenterComment on above:Pt -26-8213 10:24-0400Heart rate60 /minPacc 2 Work Phone: [facility] CenterComment on above:Pt tbfathwg52-00-3263 13:40-0500Body kgcnma650.1 cmChrba Dave GOLD LEAF GILDER.[employer]ENTER CONSULTANT Work Phone: [facility]12-19-2024 13:40-0500Body mass index (BMI) [Ratio]42.86 kg/x6AxltgbxaBrayan Dave GOLD LEAF GILDER.ORACLE WEBCENTER CONSULTANT Work Phone: [facility]12-19-2024 13:40-0500Body temperature 98.4 [degF]Brayan Dave GOLD LEAF GILDER.ORACLE WEBCENTER CONSULTANT Work Phone: [facility]12-19-2024 13:40-0500Body estjtz877.95 kgChlexi Dave GOLD LEAF GILDER.ORACLE WEBCENTER CONSULTANT Work Phone: [facility]12-19-2024 13:40-0500Diastolic blood fwafqupe47 mm[Hg]Brayan Dave GOLD LEAF GILDER.ORACLE WEBCENTER CONSULTANT Work Phone: [facility]12-19-2024 13:40-0500Heart bzwd166 /minBrayan Dave GOLD LEAF GILDER.ORACLE WEBCENTER CONSULTANT Work Phone: [facility]12-19-2024 13:40-0500Systolic blood oycfwrkh545 mm[Hg]Brayan Dave GOLD LEAF GILDER.ORACLE WEBCENTER CONSULTANT Work Phone: [facility]11-11-2024 15:54-0500Body mass index (BMI) [Ratio]42.97 kg/a0UdmnlhAidan Forrester MD Work Phone: [phone]11-11-2024 15:54-0500Body pgurwx052.45 kgAidan Forrester MD Work Phone: [phone]11-11-2024 15:54-5935NuW1% (BldA) [Mass fraction]96 %Aidan Forrester MD Work Phone: [phone]10-03-2024 13:00-0400Body mass index (BMI) [Ratio]43.3 kg/l8SaqiqxAidan Forrester MD Work Phone: [phone]10-03-2024 13:00-0400Body temperature 98.1 [degF]Aidan Forrester MD Work Phone: [phone]10-03-2024 13:00-0400Body taauhy495.4 kgAidan Forrester MD Work Phone: [phone]10-03-2024 13:00-0400Diastolic blood lqyctncu08 mm[Hg]Aidan Forrester MD Work Phone: [phone]10-03-2024 13:00-0400Heart rate68 /min Aidan Forrester MD Work Phone: [phone]10-03-2024 13:00-6942MkN0% (BldA) [Mass fraction]99 %Aidan Forrester MD Work Phone: [phone]10-03-2024 13:00-0400Systolic blood spaazwxb066 mm[Hg]Aidan Forrester MD Work Phone: [phone]08-29-2024 13:33-0400Diastolic blood pcfothhj29 mm[Hg]Ileana KLINE-Luba Work Phone: [facility]08-29-2024 13:33-0400Heart rate81 /min Ileana Tanja PA-C Work Phone: [phone]08-29-2024 13:33-0400Respiratory rate 16 /minLinn Tanja PA-C Work Phone: [phone]08-29-2024 13:33-8910MbT0% (BldA) [Mass fraction]98 %[place] Tanja PA-C Work Phone: [phone]08-29-2024 13:33-0400Systolic blood nwuyrikm944 mm[Hg][place] Tanja PA-C Work Phone: [phone]07-19-2024 11:07-0400Body .2 cmPacc 1 Other Phone: [phone]07-19-2024 11:07-0400Body mass index (BMI) [Ratio]44.47 kg/m2Pacc 1 Other Phone: [phone]07-19-2024 11:07-0400Body temperature 97.59 [degF]Pacc 1 Other Phone: [phone]07-19-2024 11:07-0400Body aycfwz229.8 kgPacc 1 Other Phone: [phone]07-19-2024 11:07-0400Diastolic blood mm[Hg]Pacc 1 Other Phone: [phone]07-19-2024 11:07-0400Heart rate69 /minPacc 1 Other Phone: [phone]07-19-2024 11:07-0400Respiratory rate 18 /minPacc 1 Other Phone: [phone]07-19-2024 11:07-0058JjV3% (BldA) [Mass fraction]99 %Pacc 1 Other Phone: [phone] [facility]07-19-2024 11:07-0400Systolic blood jzizyyrz341 mm[Hg]Pacc 1 Other Phone: [facility]07-11-2024 15:15-0400Body cilznv000.2 Enrike Dave MD Work Phone: [phone])[facility] [place], [place] 9605107-11-2024 15:15-0400Body mass index (BMI) [Ratio]44.39 kg/t2HhmfbrtJailene Dave MD Work Phone: [phone])[address] [place], [place] 4976507-11-2024 15:15-0400Body temperature 98.1 [degF]Jailene Dave MD Work Phone: [phone])[address] [place], [place] 4976507-11-2024 15:15-0400Body ecxgca363.55 kgJailene Dave MD Work Phone: [phone])[address] [place], [place] 4976507-11-2024 15:15-0400Diastolic blood aacwodcy05 mm[Hg]Jailene Dave MD Work Phone: [phone])[facility] [place], [place] 9605107-11-2024 15:15-0400Heart rate92 /min Jailene Dave MD Work Phone: [phone])[address] [place], [place] 4976507-11-2024 15:15-7468AwI3% (BldA) [Mass fraction]97 %Jailene Dave MD Work Phone: 1(539)[address] [place], [place] 4976507-11-2024 15:15-0400Systolic blood mm[Hg]Jailene Dave MD Work Phone: [phone])[address] [place], [place] 4976507-05-2024 08:13-0400Body .2 Enrike Daev MD Work Phone: [phone])[facility] [place], [place] 9605107-05-2024 08:13-0400Body mass index (BMI) [Ratio]44.32 kg/n6XkbiepjJailene Dave MD Work Phone: 1(330)[facility] [place], [place] 9605107-05-2024 08:13-0400Body pcuuds490.37 kgJailene Dave MD Work Phone: [phone])[facility] [place], [place] 9605107-05-2024 08:13-0400Diastolic blood nstrkqus63 mm[Hg]Jailene Dave MD Work Phone: [facility]07-05-2024 08:13-0400Heart rate74 /min Jailene Dave MD Work Phone: [facility]07-05-2024 08:13-0400Respiratory rate 20 /minSnistacy Dave MD Work Phone: [facility]07-05-2024 08:13-1539JuQ4% (BldA) [Mass fraction]98 %Jailene Dave MD Work Phone: [facility]07-05-2024 08:13-0400Systolic blood fgnypyce921 mm[Hg]Jailene Dave MD Work Phone: [facility]06-28-2024 13:35-0400Diastolic blood ujkeporx86 mm[Hg]Infusion 5 Work Phone: [phone]06-28-2024 13:35-0400Heart rate62 /min Infusion 5 Work Phone: [phone]06-28-2024 13:35-0400Respiratory rate 20 /minInfusion 5 Work Phone: [phone]06-28-2024 13:35-8760WrT0% (BldA) [Mass fraction]95 %Infusion 5 Work Phone: [phone]06-28-2024 13:35-0400Systolic blood jdfidpui183 mm[Hg]Infusion 5 Work Phone: [phone]06-27-2024 13:50-0400Diastolic blood ikbeqngw34 mm[Hg]Infusion 5 Work Phone: [phone]06-27-2024 13:50-0400Heart rate68 /min Infusion 5 Work Phone: [phone]06-27-2024 13:50-0400Respiratory rate 14 /minInfusion 5 Work Phone: [phone]06-27-2024 13:50-3340FiQ0% (BldA) [Mass fraction]97 %Infusion 5 Work Phone: [phone] [address]-27-2024 13:50-0400Systolic blood fcoawlpp145 mm[Hg]Infusion 5 Work Phone: [phone] [address]-26-2024 13:45-0400Diastolic blood pwojcdka82 mm[Hg]Infusion 5 Work Phone: [phone] [address]-26-2024 13:45-0400Heart rate66 /min Infusion 5 Work Phone: [phone] [address]-26-2024 13:45-0400Respiratory rate 18 /minInfusion 5 Work Phone: [phone] [address]-26-2024 13:45-4178CyL0% (BldA) [Mass fraction]98 %Infusion 5 Work Phone: [phone] [address]-26-2024 13:45-0400Systolic blood phelqooq659 mm[Hg]Infusion 5 Work Phone: [phone] [address]-25-2024 14:15-0400Diastolic blood mm[Hg]Infusion 5 Work Phone: [phone] [address]-25-2024 14:15-0400Heart rate77 /min Infusion 5 Work Phone: [phone] [address]-25-2024 14:15-0400Respiratory rate 18 /minInfusion 5 Work Phone: [phone] [address]-25-2024 14:15-4617AgN8% (BldA) [Mass fraction]99 %Infusion 5 Work Phone: [phone] [address]-25-2024 14:15-0400Systolic blood kidwfgcq070 mm[Hg]Infusion 5 Work Phone: [phone] [address]-24-2024 13:50-0400Diastolic blood hneqeosv38 mm[Hg]Infusion 5 Work Phone: [phone] [address]-24-2024 13:50-0400Heart rate65 /min Infusion 5 Work Phone: [facility]06-24-2024 13:50-0400Respiratory rate 15 /minInfusion 5 Work Phone: [facility]06-24-2024 13:50-1612OoX4% (BldA) [Mass fraction]96 %Infusion 5 Work Phone: [facility]06-24-2024 13:50-0400Systolic blood uebiiiyz035 mm[Hg]Infusion 5 Work Phone: [facility]06-13-2024 12:42-0400Body zerqqp909.9 cmLinn Tanja PA-C Work Phone: [facility]06-13-2024 12:42-0400Body mass index (BMI) [Ratio]54.18 kg/m2Linn Tanja PA-C Work Phone: [facility]06-13-2024 12:42-0400Body tuqyef545.37 kgLinn Tanja PA-C Work Phone: [facility]06-13-2024 12:42-0400Diastolic blood fymepxje06 mm[Hg]Ileana Tanja PA-C Work Phone: [facility]06-13-2024 12:42-0400Heart rate80 /min [place] Tanja PA-C Work Phone: [facility]06-13-2024 12:42-9737BrJ5% (BldA) [Mass fraction]99 %Ileana Tanja PA-C Work Phone: [facility]06-13-2024 12:42-0400Systolic blood jsbbyjyh645 mm[Hg][place] Tanja PA-C Work Phone: [facility]06-03-2024 14:03-0400Body xlaiqh992.4 Marciano Forrester MD Work Phone: [facility]06-03-2024 14:03-0400Body mass index (BMI) [Ratio]44.85 kg/d9WxizvpAidan Forrester MD Work Phone: [phone]06-03-2024 14:03-0400Body temperature 98.1 [degF]Aidan Forrester MD Work Phone: [phone]06-03-2024 14:03-0400Body mwbgqu654.7 kgAidan Forrester MD Work Phone: [phone]06-03-2024 14:03-0400Diastolic blood ywguurez95 mm[Hg]Aidan Forrester MD Work Phone: [phone]06-03-2024 14:03-0400Heart rate75 /min Aidan Forrester MD Work Phone: [phone]06-03-2024 14:03-8645PxG9% (BldA) [Mass fraction]97 %Aidan Forrester MD Work Phone: [facility]06-03-2024 14:03-0400Systolic blood laakgiqc839 mm[Hg]Aidan Forrester MD Work Phone: [facility]05-20-2024 10:03-0400Body temperature 97.5 [degF]Henrique Rodríguez GOLD LEAF GILDER-ORACLE WEBCENTER CONSULTANT Work Phone: [facility]05-20-2024 10:03-0400 Diastolic blood dlzlrwut99 mm[Hg]Henrique Rodríguez GOLD LEAF GILDER-ORACLE WEBCENTER CONSULTANT Work Phone: [facility]05-20-2024 10:03-0400 Heart rate70 /Nicole Rodríguez GOLD LEAF GILDER-ORACLE WEBCENTER CONSULTANT Work Phone: [facility]05-20-2024 10:03-0400 Systolic blood zzjbknhu645 mm[Hg]Henrique Rodríguez GOLD LEAF GILDER-ORACLE WEBCENTER CONSULTANT Work Phone: [facility]05-06-2024 14:18-0400 Body mass index (BMI) [Ratio]44.88 kg/n2RianrhAidan Forrester MD Work Phone: [phone]05-06-2024 14:18-0400Body temperature 98.2 [degF]Aidan Forrester MD Work Phone: [phone]05-06-2024 14:18-0400Body bfrzeg792.8 kgAidan Forrester MD Work Phone: [phone]05-06-2024 14:18-0400Diastolic blood wkwnjoxv97 mm[Hg]Aidan Forrester MD Work Phone: [phone]05-06-2024 14:18-0400Heart rate85 /min Aidan Forrester MD Work Phone: [phone]05-06-2024 14:18-2103KrV1% (BldA) [Mass fraction]97 %Aidan Forrester MD Work Phone: [phone]05-06-2024 14:18-0400Systolic blood poaqnkuj447 mm[Hg]Aidan Forrester MD Work Phone: [phone]04-30-2024 13:03-0400Body .4 Myrna Daley PA-C Work Phone: [facility]04-30-2024 13:03-0400Body mass index (BMI) [Ratio]45.34 kg/l9Kikiibruce Daley PA-C Work Phone: [facility]04-30-2024 13:03-0400Body temperature 98.4 [degF]Kaylene Daley PA-C Work Phone: [facility]04-30-2024 13:03-0400Body hgxbae601.1 kgKaylene Daley PA-C Work Phone: [facility]04-30-2024 13:03-0400Diastolic blood yyfnsdwe40 mm[Hg]Kaylene Daley PA-C Work Phone: [facility]04-30-2024 13:03-0400Heart rate88 /min Kaylene Daley PA-C Work Phone: [facility]04-30-2024 13:03-0400Respiratory rate 18 /minSdrake Stevensk PA-C Work Phone: [phone]04-30-2024 13:03-9021JxL7% (BldA) [Mass fraction]97 %Kaylene Daley PA-C Work Phone: [facility]04-30-2024 13:03-0400Systolic blood pqtkuhfv589 mm[Hg]Kaylene Daley PA-C Work Phone: [facility]04-29-2024 12:10-0400Body temperature 97.5 [degF]Dominick Lopes MD Work Phone: [phone]04-29-2024 12:10-0400 Diastolic blood mm[Hg]Dominick Lopes MD Work Phone: [phone]04-29-2024 12:10-0400 Heart rate82 /Mike Lopes MD Work Phone: [phone]04-29-2024 12:10-0400 Respiratory rate16 /Mike Lopes MD Work Phone: [phone]04-29-2024 12:10-0400 SaO2% (BldA) [Mass fraction]97 %Dominick Lopes MD Work Phone: [facility]04-29-2024 12:10-0400 Systolic blood mm[Hg]Dominick Lopes MD Work Phone: [phone]04-29-2024 10:04-0400 Body bjebma555.2 Erika Lopes MD Work Phone: [facility]04-29-2024 10:04-0400 Body mass index (BMI) [Ratio]43.85 kg/n1RdnozrDominick Lopes MD Work Phone: [facility]04-29-2024 10:04-0400 Body rrefui575.01 kgDominick Lopes MD Work Phone: [facility]04-17-2024 11:11-0400 Body iiewdf818.2 cmStaave Williamson GOLD LEAF GILDER.ORACLE WEBCENTER CONSULTANT Work Phone: [phone]04-17-2024 11:11-0400Body temperature 97.81 [degF]Tracie Williamson GOLD LEAF GILDER.ORACLE WEBCENTER CONSULTANT Work Phone: [facility]04-17-2024 11:11-0400Body orxqwk099.1 kgStjenna Williamson GOLD LEAF GILDER.ORACLE WEBCENTER CONSULTANT Work Phone: [phone]04-17-2024 11:11-0400Diastolic blood qabvcqkf62 mm[Hg]Tracie Williamson GOLD LEAF GILDER.ORACLE WEBCENTER CONSULTANT Work Phone: [facility]04-17-2024 11:11-0400Heart rate85 /min Tracie Williamson GOLD LEAF GILDER.ORACLE WEBCENTER CONSULTANT Work Phone: [phone]04-17-2024 11:11-3454IeH7% (BldA) [Mass fraction]98 %Tracieave Williamson GOLD LEAF GILDER.ORACLE WEBCENTER CONSULTANT Work Phone: [facility]04-17-2024 11:11-0400Systolic blood ltkabctd816 mm[Hg]Tracie Williamson GOLD LEAF GILDER.ORACLE WEBCENTER CONSULTANT Work Phone: [facility]03-18-2024 14:48-0400Body nbfyyq311 kg Norma Lyman GOLD LEAF GILDER.ORACLE WEBCENTER CONSULTANT Work Phone: [facility]08-28-2023 21:16-0400Diastolic blood mm[Hg]MIXER DRIVER-BC Shon Angel Work Phone: [phone]08-28-2023 21:16-0400 Heart rate70 /minFNP-BC Shon Shammo Work Phone: [phone] [place], [place] 5952508-28-2023 21:16-0400 Respiratory rate18 /minFNP-BC Shon Shammo Work Phone: [phone] [place], [place] 5952508-28-2023 21:16-0400 SaO2% (BldA) [Mass fraction]100 %MIXER DRIVER-BC Shon Shammo Work Phone: [phone] [place], [place] 5952508-28-2023 21:16-0400 Systolic blood xxaslocb178 mm[Hg]MIXER DRIVER-BC Shon Shammo Work Phone: [phone])[address] [place], [place] 5952508-28-2023 17:39-0400 Body .18 cmFNP-BC Shon Shammo Work Phone: [phone] [place], [place] 5952508-28-2023 17:39-0400 Body eaxutywnneb20.9 [degF]MIXER DRIVER-BC Shon Shammo Work Phone: [phone] [place], [place] 5952508-28-2023 17:39-0400 Body onybam219.4 kgFNP-BC Shon Shammo Work Phone: [phone])[address] [place], [place] 5952509-20-2022 08:52-0400 Diastolic blood aahnhsyt93 mm[Hg]MD Liya Peña Work Phone: 1(164)[address] [place], [place] 5539009-20-2022 08:52-0400 Heart rate60 /minMD Liya Peña Work Phone: [phone])[address] [place], [place] 5539009-20-2022 08:52-0400 Respiratory rate18 /minMD Liya Peña Work Phone: [phone] [place], [place] 5539009-20-2022 08:52-0400 SaO2% (BldA) [Mass fraction]100 %MD Liya Peña Work Phone: 1(508)[address] [place], [place] 5539009-20-2022 08:52-0400 Systolic blood wftrpost256 mm[Hg]MD Liya Peña Work Phone: [phone] [place], [place] 3103809-20-2022 07:34-0400 Body .72 cmMD Liya Peña Work Phone: [phone]09-20-2022 07:34-0400 Body uduqtpjivxe23.6 [degF]MD Liya Peña Work Phone: [phone] [place], [place] 3103809-20-2022 07:34-0400 Body njnful686.2 kgMD Liya Peña Work Phone: [phone]12-16-2021 10:50-0500 Body hhfohr384.72 cmSsowmya Myers Other [employer] Other 12-16-2021 10:50-0500Body mass index (BMI) [Ratio] 39.38 kg/k2PovcqfiwsAstrid Myers Other [employer] Other 12-16-2021 10:50-0500Body ohmdwptrrrg89.7 [degF] Astrid Myers Other [employer] Other 12-16-2021 10:50-0500Body oedmif660.48 kgStfay Myers Other [employer] Other 12-16-2021 10:50-0500Diastolic blood fnraikhs41 mm[Hg] Astrid Myers Other [employer] Other 12-16-2021 10:50-0500Respiratory rate18 /minSsowmya Myers Other [employer] Other 12-16-2021 10:50-5243CgU8% (BldA) [Mass fraction]100 % Astrid Myers Other [employer] Other 12-16-2021 10:50-0500Systolic blood hqsrcitx440 mm[Hg] Astrid Myers Other [facility] [employer] Other Encounters Encounter DateEncounter TypeCare ProviderFacilityStart: 43-24-3905egvgeuzzkb DOMINICK [facility]25 Encounter for other preprocedural examinationCHARLES P [facility]: 07-14-2025 End: 51-43-4171xnhrcokuvbRTMBC JUNG MEE SHINFacility:[facility] Start: 06-05-2025 End: 61-99-2712kzuhcpqtnoDJFLake [facility] Work Phone: Start: 06-05-2025 End: 34-77-1961Dwouuqll Giovana Wetzel MD-LAB [facility] Start: 06-05-2025 End: 00-52-4858Rwlwalby ReferredPepe Vaughn GOLD LEAF GILDER-Lab [facility] Work Phone: Start: 06-05-2025 End: 82-56-9901biuzxsuljoTMDOur [facility] of [facility] Work Phone: Start: 06-05-2025 End: 32-48-6017Gcktclt encounter procedurePepe Vaughn GOLD LEAF GILDER-[facility] Work Phone: Start: 04-07-2025 End: 10-59-6061glinhtkhlkPzwvm J Jakubek PA-C Work Phone: [facility] Brain Tumor CenterComment on above:Pain managementStart: 03-30-2025 End: 57-99-0002lwgmffoszrFy Pcp (Hist)[facility] EnterpriseStart: 03-30-2025 End: 68-72-3291Tjtpmll encounter procedureNo Pcp (Hist)[facility] EnterpriseStart: 03-17-2025 End: 35-88-0719Oggxou outpatient visit 25 minutesAlexander Gallegos MD Work Phone: Internal Medicine [facility] RegionComment on above: Chronic right-sided low back pain with right-sided sciatica (Primary Dx); Thyroid nodule; Mixed hyperlipidemia; Chronic fatigue; Vitamin D deficiency; HyperglycemiaStart: 03-17-2025 End: 47-44-5343nveahwqytbSnsym J Jakubek PA-C Work Phone: [facility] Tumor CenterComment on above:Pain managementStart: 03-14-2025 End: 84-16-5778Iyslwgndf encounterJoyelidia Vo MD Work Phone: Endocrine SurgeryStart: 02-22-2025 End: 07-27-1295Cmenjmrek encounterStaave Williamson APRN.CNP Work Phone: Internal Medicine [place]Comment [place]:Appointment Start: 12-23-2024 End: 39-08-5382Wvxoglnnp encounterSjessica Randhawa PA-C Work Phone: Pre AnesthesiaComment on above:Pre-Op Update (UTI) Start: 12-21-2024 End: 56-56-5586QdvgugSphusbAidan Forrester MD Work Phone: Internal Medicine [place]Comment on above:Refill RequestStart: 12-20-2024 End: 15-67-7933iwqlqteghuOSDAGR FERNANDEZ BOHORQUEZFacility:[facility] Townshiptart: 12-20-2024 End: 49-58-2180Ivlcvg outpatient visit 25 minutesAidan Forrester MD Work Phone: Internal Medicine [place]Comment on above:Abnormal urine odor (Primary Dx); Chronic bilateral low back pain with right-sided sciatica; Preop testing; Spina bifida, unspecified hydrocephalus presence, unspecified spinal region (HCC); Neurogenic bladder; Multiple thyroid nodulesStart: 12-20-2024 End: 84-39-0354Jttuerc encounter statusAidan Forrester MD Work Phone: [facility] Hospitaltart: 12-14-2024 End: 90-88-6888Wapgioxpt to [facility] 2 Work Phone: Pre AnesthesiaStart: 12-14-2024 End: 44-65-8475hamuhejzrpFYKIYH FERNANDEZ BOHORQUEZFacility:[facility] Townshiptart: 12-14-2024 End: 35-39-1045Yjwpnpmprl consultationMulticare [facility] 2 Work Phone: pre AnesthesiaComment on above:Pre-op evaluation (Primary Dx); Morbid obesity with BMI of 40.0-44.9, adult ([facility]); Difficult intravenous access; Abnormal urine odor; Neurogenic bladder; Smoker; Spina bifida, unspecified hydrocephalus presence, unspecified spinal region ([facility])Start: 12-14-2024 End: 74-36-7370Oakhwsnykmojf examination [facility] 2 Work Phone: [facility] Work Phone: Start: 11-24-2024 End: 49-42-6466Ytwawmc evaluation of patient and reportNurse Card [facility] Liane Work Phone: CardiologyComment on above:Multiple thyroid nodules Start: 11-24-2024 End: 88-44-2445tlrzglxlzmQYSRN JUNG MEE SHINFacility:[facility] Start: 11-10-2024 End: 51-35-2061aaqdrgosxhFchwavy [employer]ne Granite Installer Work Phone: EndocrinologyStart: 11-09-2024 End: 70-70-3016Lhmfrmvnf to same day surgery centerSdanny Dave MD Work Phone: EndocrinologyComment on above:My surgery...Start: 11-09-2024 End: 34-31-8038zapebjlydkHhsazhj Reddy Bendaram MD Work Phone: EndocrinologyStart: 11-08-2024 End: 39-53-1804pvwuwkveiaDYHUNPOsbaldo Pérezcility:[facility] HospitalStart: 11-08-2024 End: 26-19-9188Jfqymhh encounter procedureBri Vo MD Work Phone: Endocrine SurgeryComment on above:Multiple thyroid nodules (Primary Dx); Thyroid noduleStart: 11-02-2024 End: 87-19-5596Eezhokdvg encounterBri Vo MD Work Phone: Endocrine SurgeryComment on above:Consult (FACE SHEET) Start: 10-31-2024 End: 31-03-1469vmdamydgnfQknynont Lee GOLD LEAF GILDER.ORACLE WEBCENTER CONSULTANT Work Phone: [facility] FHomment on above: MedicationStart: 10-16-2024 End: 12-83-2920GgzewkBforn Christianne Williamson APRN.ORACLE WEBCENTER CONSULTANT Work Phone: Internal Medicine [place]Comment on above:Refill RequestStart: 10-05-2024 End: 77-21-2262hwjvjpjhoaXcnoai Bruno RD Work Phone: EndocrinologyComment on above:Severe obesity (BMI >= 40) (HCC) (Primary Dx)Refill RequestStart: 10-05-2024 End: 80-83-8785Csjubicndwfw consultation with Vince Huber RD Work Phone: EndocrinologyStart: 09-11-2024 End: 71-30-8997VpukzoYpcximRoss Forrester MD Work Phone: Internal Medicine [place]Comment on above:Refill RequestStart: 09-08-2024 End: 58-29-3476eutjvgmufeWOEBDDOsbaldo Pérezcility:[facility] Townshiptart: 09-08-2024 End: 03-96-4435Vwzlcge encounter Melany Dave APRN.ORACLE WEBCENTER CONSULTANT Work Phone: [facility] FHCComment on above: Severe obesity (BMI >= 40) (HCC) (Primary Dx); BMI 40.0-44.9, adult (HCC); Multiple thyroid nodules; Fatty liver; Spina bifida, unspecified hydrocephalus presence, unspecified spinal region (HCC); Chronic bilateral low back pain with right-sided sciatica; Medication management; Dietary counseling; Exercise counselingStart: 08-31-2024 End: 94-47-4145vbpdnhmmwhZNHDCPOsbaldo FORRESTERFacility:[facility] Townshiptart: 08-10-2024 End: 23-51-1473bhzphyxscbOyzzyNghia Daley PA-C Work Phone: [facility] Tumor CenterComment on above:Pain managementStart: 08-10-2024 End: 22-98-4064Zlbnhqyox encounterGirgis E Marcus DO Work Phone: pain ManagementComment on above:Appointment (Pain management)Start: 08-03-2024 End: 67-74-4039qjpwizhgciKchejk E Marcus DO Work Phone: pain ManagementComment on above:PAIN QUESTIONNAIRE Start: 08-03-2024 End: 60-03-2092A-mail encounter from caregiverGirgordy E Marcus DO Work Phone: pain ManagementStart: 08-01-2024 End: 44-48-6831vwoziqkctySSBRIKOsbaldo FORRESTERFacility:[facility] Townshiptart: 08-01-2024 End: 38-02-2746Pdzlmc outpatient visit 10 gabinoRalisa Forrester MD Work Phone: Internal Medicine [place]Comment on above:Morbid obesity with BMI of 40.0-44.9, adult (HCC) (Primary Dx); Current every day smoker; Vapes nicotine containing substanceStart: 07-08-2024 End: 11-27-1438jvmjygldpsNc Pcp APRNNavigate Clinic EnterpriseStart: 07-08-2024 End: 63-34-1730Pajkipg encounter procedureNo [facility]cp [facility]NNBut[facility] Start: 07-04-2024 End: 40-00-7924VzkojcXfldsgAris Forrester MD Work Phone: Internal Medicine [place]Comment on above:Refill RequestResultsStart: 00-66-4084mpdaqmuywdILIZOP FERNANDEZ BOHORQUEZFacility:[facility] HospitalStart: 06-29-2024 End: 97-40-1208Dspusjcnzm hospital visit by physicianUltra [facility] 2 Work Phone: [facility] Radiology UltrasoundComment on above:RUQ pain [R10.11]Start: 06-23-2024 End: 19-36-9660Rdwtpq outpatient visit 25 minutesRalisa Forrester MD Work Phone: Internal Medicine [place]Comment on above:RUQ pain (Primary Dx); Screening for depression; Encounter for immunization; Encounter for screening examination for other mental health and behavioral disorders; Multiple thyroid nodulesStart: 05-25-2024 End: 14-58-7586Wryupea encounter procedureElda Danielson MD Work Phone: OphthalmologyComment on above:Monocular exotropia with other noncomitancies, left eye (Primary Dx); Hypotropia of left eyeStart: 05-19-2024 End: 71-97-4126Vmeodoc encounter Virgil Agrawal PA-C Work Phone: Neurology PainComment on above:Chronic pain syndrome (Primary Dx); Hx of spina bifida; Chronic bilateral low back pain with sciatica, sciatica laterality unspecified; Tethered cord (HCC); Hx of laminectomy; Anxiety and depressionStart: 05-04-2024 End: 80-54-8619Nomcril encounter procedureElda Danielson MD Work Phone: OphthalmologyComment on above:Monocular exotropia with other noncomitancies, left eye (Primary Dx); Hypotropia of left eyeStart: 54-74-9440EitxfgOlazpjAidan Forrester MD Work Phone: Internal Medicine [place]Comment on above:Refill RequestStart: 55-57-1045Rhtthimzw encounterElda Danielson MD Work Phone: OphthalmologyComment on above:Medication ProblemStart: 93-73-0863Njnaytjeu encounterJayden Kramer MD Work Phone: OtolaryngologyStart: 54-84-4987Csmcyr WorkCharlotte Reyes LSWPsychiatryStart: 04-14-2024 End: 63-43-1633Iznmsrwi HealthDavid Keon Mayer Therapist Work Phone: Pain RecoveryComment on above:Adjustment disorder with mixed anxiety and depressed mood (Primary Dx); Hx of spina bifida; Chronic bilateral low back pain with sciatica, sciatica laterality unspecified; Chronic pain syndromenext steps, resourcesStart: 04-08-2024 End: 80-30-9788Ynudwhcuu to establishmentMulticare Allenmore Hospital Av 1 Other Phone: Pre AnesthesiaStart: 04-08-2024 End: 74-89-1814Ttiigom encounter procedureMulticare Allenmore Hospital Av 1 Other Phone: Pre AnesthesiaComment on above:Pre-op evaluation (Primary Dx); Spina bifida, unspecified hydrocephalus presence, unspecified spinal region (HCC); Tethered cord (HCC); Smoker; Neurogenic bladder; Multiple thyroid nodules; Morbid obesity with BMI of 40.0-44.9, adult (HCC); Chronic bilateral low back pain with right-sided sciaticaStart: 04-08-2024 End: 15-95-2422Vmkyufhcirebt examination doneMult[facility] [address] Other Phone: [facility] Work Phone: Start: 04-08-2024 End: 11-52-5364lnjljjygwoJGLYHFO BABIUCHFacility:[facility] HospitalStart: 04-08-2024 Encounter for other preprocedural examinationSDRAKE STEVENSDavis Hospital and Medical Centertart: 04-05-2024 End: 28-49-8536Vldaxgd encounter Ethan Kramer MD Work Phone: OtolaryngologyComment on above:Airway compromise (Primary Dx); Multiple thyroid nodulesStart: 01-06-6557Vqaehzfcb encounterSdanny Dave MD Work Phone: EndocrinologyComment on above:ResultsStart: 03-31-2024 End: 32-18-7511Jdxgorh encounter procedureSdanny Dave MD Work Phone: EndocrinologyComment on above:Thyroid nodule (Primary Dx)Start: 36-87-2544SqkxhuFbkvgxRoss Forrester MD Work Phone: Internal Medicine LorainComment on above:Refill RequestStart: 03-25-2024 End: 30-18-3942Rzkmgxr encounter procedureSdanny Dave MD Work Phone: EndocrinologyComment on above:Thyroid noduleStart: 03-18-2024 End: 51-56-6264nparidxbawKcoofjrg Walker Chair 5 Work Phone: NeurologyComment on above:Chronic bilateral low back pain with sciatica, sciatica laterality unspecified (Primary Dx)Start: 03-17-2024 End: 10-33-6337udibwwnqrlGlhlhmpx Walker Chair 5 Work Phone: NeurologyComment on above:Chronic bilateral low back pain with sciatica, sciatica laterality unspecified (Primary Dx)Start: 03-16-2024 End: 27-46-3085fcnhxxdykrNzrfqlkm Walker Chair 5 Work Phone: NeurologyComment on above:Chronic bilateral low back pain with sciatica, sciatica laterality unspecified (Primary Dx)Start: 03-15-2024 End: 47-28-6269ytvzyjddwaYlsepced Walker Chair 5 Work Phone: NeurologyComment on above:Chronic bilateral low back pain with sciatica, sciatica laterality unspecified (Primary Dx); Tethered cord (HCC); Hx of spina bifida; Chronic bilateral low back pain, unspecified whether sciatica present; Hx of laminectomy; H/O laminectomy; Chronic pain syndrome; Anxiety and depressionStart: 03-14-2024 End: 38-62-6632hckbvzezokGhrwouwz Walker Chair 5 Work Phone: NeurologyComment on above:Chronic bilateral low back pain with sciatica, sciatica laterality unspecified (Primary Dx)Start: 36-94-6016WsoihsMarcel Chandler MD Work Phone: Neurology PainStart: 03-04-2024 End: 39-71-3118mtfdhyrjlxJlhll J Jakubek PA-C Work Phone: [facility] Tumor CenterComment on above:Tethered cord (HCC) (Primary Dx); Adhesive arachnoiditisStart: 03-04-2024 End: 72-36-2413Rjjxqkblhfmt consultation with Tiana Daley PA-C Work Phone: [facility] CenterStart: 03-03-2024 End: 58-19-8155Ksyvxgb encounter Virgil Agrawal PA-C Work Phone: Neurology PainComment on above:Chronic bilateral low back pain, unspecified whether sciatica present (Primary Dx); Tethered cord (HCC); Hx of spina bifida; Hx of laminectomy; H/O laminectomy; Chronic pain syndrome; Anxiety and depressionStart: 02-22-2024 End: 39-00-8784Blqujd outpatient visit 25 minutesRalisa Forrester MD Work Phone: Internal Medicine [place]ainComment on above:Multiple thyroid nodules (Primary Dx); Chronic bilateral low back pain, unspecified whether sciatica present; Heartburn; Nausea; Chronic daily headacheStart: 05-74-8947Ydjhgalqb encounterAidan Forrester MD Work Phone: Internal Medicine [place]ainComment on above:Request Outside Medical RecordsStart: 95-15-9656Nqyuuyhdu Eamon Forrester MD Work Phone: Internal Medicine [place]ainComment on above:ResultsStart: 29-74-0294Ioqwxroca encounterSdrake Daley PA-C Work Phone: [facility] CenterStart: 02-08-2024 End: 55-32-5998Dnzqjzoiiv hospital visit by [facility] Work Phone: [facility] Radiology UltrasoundComment on above: Nontoxic single thyroid nodule [E04.1]Start: 02-08-2024 End: 93-39-3995lccxwgztplPIEHKPICJJeanes Hospital AmbulatoryStart: 02-08-2024 End: 33-76-5661Fogsfn outpatient visit [address] [facility] GOLD LEAF GILDER-ORACLE WEBCENTER CONSULTANT Work Phone: [facility] CenterComment on above:Urge incontinence (Primary Dx)Start: 02-03-2024 End: 55-59-5158Zpamesjmow hospital visit by Elvie [facility] Ayanna (I-Stat/3t)[facility] Sulph[facility] SpringsCComment on above:Encounter for observation for other suspected diseases and conditions ruled out [Z03.89]Start: 12-47-7192Usoydxosg encounterAidan Forrester MD Work Phone: Internal Medicine [place]ainComment on above:Received Outside Medical Records (Received outside medical records on providers desk for review. )Start: 01-25-2024 End: 43-34-0505Jnvqrx outpatient visit 25 minutesAidan Forrester MD Work Phone: Internal Medicine [place]ainComment on above:Chronic bilateral low back pain, unspecified whether sciatica present (Primary Dx); Morbid obesity with BMI of 40.0-44.9, adult (HCC); Neurogenic bladder; Spina bifida, unspecified hydrocephalus presence, unspecified spinal region (HCC); Tethered cord (HCC); Urinary frequency; Acute UTIStart: 01-19-2024 End: 26-89-8575Mlnlewr encounter Jillian Daley PA-C Work Phone: [facility] Tumor CenterComment on above:Tethered cord (HCC) (Primary Dx); Hx of spina bifida; Chronic bilateral low back pain, unspecified whether sciatica present; H/O laminectomy; Chronic pain syndrome; Encounter for observation for other suspected diseases and conditions ruled out; Abnormal findings on diagnostic imaging of other parts of musculoskeletal system; Pain in thoracic spineStart: 42-45-5634sonokgdghpENTPRTViolet FORRESTER Facility:[facility]ertart: 01-19-2024 End: 39-48-2278Zoeeogqtst hospital visit by physicianMohan [facility]ospRad[facility] Comment on above:Tethered cord (HCC) [Q06.8]Start: 01-18-2024 End: 48-02-0276Yhotvcndkq hospital visit by physicianDominick Lopes MD Work Phone: [facility] ORComment on above:Post- operative pain (Primary Dx); Urge incontinenceStart: 01-14-2024 End: 98-70-7052Zfzuupj encounter procedureElda Danielson MD Work Phone: OphthalmologyComment on above:Monocular exotropia with other noncomitancies, left eye (Primary Dx); Hypotropia of left eye; Amblyopia, left eyeStart: 01-06-2024 End: 97-65-4437Trwybgr encounter procedureStaave Williamson APRN.[employer]LE WEBCENTER CONSULTANT Work Phone: Internal Medicine [place]ainComment on above:Encounter to establish care (Primary Dx); Tethered cord (HCC); Spina bifida, unspecified hydrocephalus presence, unspecified spinal region (HCC); Other chronic pain; Smoker; Mood disorder (HCC)Start: 17-54-2337Yucvpqfyj encounterTara Torito AMARAL Work Phone: [facility] CenterComment on above:Nurse Triage CallStart: 12-07-2023 End: 30-34-3901Uxzweov encounter procedureNorma Lyman APRN.CNP Work Phone: [facility] InstituteComment on above:Tethered cord (HCC) (Primary Dx); Hx of spina bifida; Chronic bilateral low back pain, unspecified whether sciatica present; H/O laminectomy; Chronic pain syndromeStart: 12-01-2023 End: 07-29-3339Jiytvyr encounter procedureChadilia Gutierrez OD Work Phone: OphthalmologyComment on above:Strabismic amblyopia of left eye (Primary Dx); DiplopiaStart: 05-18-2023 End: 20-30-6593Cmkannlvy department patient visitF- Shon Angel Work Phone: [facility] Work Phone: Start: 03-18-2023 End: 82-42-3287mfutakiavhKIBYMF HIJAZ MDFacility:[address]Ozivh: 02-16-2023 End: 66-69-2015ntgveoutyqZGAdrian LEIVA .Facility:A0Bmopr: 10-06-2022 End: 75-91-1030tceqcezdiaUnAnabel Juanita SharmaFacility:9537Start: 08-25-2022 End: 24-67-2900nbtklpgaszRV DENISSE PEÑA .Facility:Z6Cjiiv: 08-07-2022 End: 51-40-8048fbasnivphoPT Juanita [place] Work Phone: [facility] Work Phone: Start: 08-07-2022 End: 54-50-9259Mublqokggs RecurringDO Hess [place] Work Phone: [facility]-Physical Therapy [place]Start: 06-10-2022 End: 54-19-9136Qjombsqab to same day surgery center Liyaclaudia Peña Work Phone: [facility]-Digestive HealthStart: 06-06-2022 End: 81-42-7739Ysxjmlt encounter procedureMD Liya Peña Work Phone: [facility]-Pre-Surgical Testing Start: 39-08-7028Agoaippjef RecurringMD Liya Peña Work Phone: [facility]-Physical Therapy [place]Start: 09-05-2021 End: 53-40-7278cerbmsatzjWktgjrcyg [place] Other [employer] Other Start: 49-42-6375Uczmly outpatient visit 15 minutes [facility] Procedures DateProcedureProcedure DetailPerforming ClinicianStart: 01-03-7773Pq soft tissue head & neck real time imge docmBri Vo MD Work Phone: Start: 38-86-7307Ohvqjqnjsx A1c/Hemoglobin.total in BloodChristen Tenzin GOLD LEAF GILDER.ORACLE WEBCENTER CONSULTANT Work Phone: Start: 35-10-1465Ulzvs depression screening assessment Aidan Forrester MD Work Phone: Start: 03-31-2024 End: 32-41-4248Pi soft tissue head & neck real time imge Libby Dave MD Work Phone: Start: 98-11-8227Xfj spinal canal cervical w/o contrast Anjelica Daley PA-C Work Phone: Start: 74-14-7269Oueuo dip stick/tablet rgnt auto w/o microscopyRafatrevor Forrester MD Work Phone: Start: 42-56-1154Hswzn dip stick/tablet reagent auto microscopyRalisa Forrester MD Work Phone: Start: 44-77-3048Lbqmm test visual color cmprsn methLeann Lopes MD Work Phone: Start: 79-65-3228HTKCX OXIMETRY, SPOTAdonis Berlin Lopes MD Work Phone: Start: 52-91-4040EB of head without contrastFNP-BC Shon Shammo Work Phone: Start: 02-51-7760Nyleuysyir endoscopic examination on colonMD Liya Peña Work Phone: start: 84-56-3950Ptduwjexsjdh/tazobactamSteppretty Myers Other Start: 92-76-4012Xxhaq 1996 panel - Serum or Plasma Tracie Clay GOLD LEAF GILDER.ORACLE WEBCENTER CONSULTANT Work Phone: SARS Antigen (LFIA)MD Liya Peña Work Phone: Plan of Treatment DateCare ActivityDetailAuthorStart: 95-10-7473NUcS/Tdap/Td Vaccines (3 - Td or Tdap)DTaP/Tdap/Td Vaccines (3 - Td or Tdap)[facility] Start: 27-07-3889Ahexg microalbumin profileDTaP,Tdap,Td Vaccine (3 - Td or Tdap) [facility] Hospitaltart: 54-13-9448Dapwzr Vaccines (1 of 2)Zoster Vaccines (1 of 2)[facility] HospitalStart: 62-69-7638Fjzliklul for malignant neoplasm of cervixProMedica Fostoria Community Hospitaltart: 27-36-6363Gdfkroyw ScreeningDiabetes ScreeningProMedica Fostoria Community Hospitaltart: 80-20-0644Bsurkpwjg for malignant neoplasm of cervixCervical Cancer ScreeningProMedica Fostoria Community Hospitaltart: 50-05-5587Cisrqbc ScreeningAnxiety ScreeningProMedica Fostoria Community Hospitaltart: 24-01-5532Hamoy-19 Vaccine ( season)Covid-19 Vaccine ()[facility] CenterComment on above:Postponed from 05/22/2024 (Declined at this time)Start: 06-23-2025 Depression ScreeningDepression ScreeningProMedica Fostoria Community Hospitaltart: 32-92-8235Nckme cultureSelect Medical Specialty Hospital - Boardman, Inctart: 66-29-6551Entop [facility] Companytart: 48-09-1263Rbnuryrw identified in Urine by Culture Urine [facility] Hospitaltart: 58-75-8757Fiziqglhz vaccinationProMedica Fostoria Community Hospitaltart: 05-04-2025 End: 92-25-1435Fzujrgvfx to same day surgery cynulh9605/04/2025 3:40 PM EDT [facility] Endocrine Surgery [address] [place] [address] 2 [phone] Bri Vo MD [address] [place] [address] post opEndocrine SurgeryComment on above: post opStart: 04-14-2025 End: 41-04-4916Xdcaxyj encounter procedureSalt [facility] Draw StationComment on above:LABThyroid nodule [E04.1]Start: 04-10-2025 End: 26-19-6462Mwebdqmks to same day surgery aefazj6904/10/2025 7:30 AM EDT - 04/10/2025 9:30 AM EDT Surgery [facility] Surgery [address] [place], [place] [id number] Bri Vo MD [address] [place], [place] [id number] THYROIDECTOMY TOTALSuburban Community Hospital & [facility] SurgeryComment on above:THYROIDECTOMY TOTALStart: 14-99-4951Pvnokronhg hospital visit by uqubzcfiy39/21/2025 7:30 AM EDT Hospital Encounter [facility] Surgery [address] [place] [address] Bri Vo MD [address] [place], [place] [phone] Multiple thyroid nodules [E04.2][facility] Surgery Comment on above:Multiple thyroid nodules [E04.2]Start: 04-10-2025 End: 72-70-7070Uawokllkyqhta total/completeTHYROIDECTOMY TOTAL Multiple thyroid nodules 04/10/2025 7:30 AM EDTMM ORStart: 03-30-2025 End: 57-54-0046yuhvoygwfb98/10/2025 10:45 AM EDT Results Only [facility] Draw Station [address] [place] [address] pre-opSheMetroHealth [facility] Draw StationComment on above:pre-opStart: 03-30-2025 End: 80-25-5847Xuvxuvdmz to same day surgery czpkjh2303/30/2025 9:50 AM EDT PAT Pre Anesthesia [address] [place], [place] [id number] PT WANTS TO CANCEL SURGERY; MESSAGE SENT TO SURGEONPre AnesthesiaComment on above:PT WANTS TO CANCEL SURGERY; MESSAGE SENT TO SURGEONStart: 03-30-2025 End: 43-30-7068Dpyoqgncla mzkgirxzkoiu12/10/2025 9:50 AM EDT PAT Pre Anesthesia [address] [place] [address] pre-op/ please perform EKGPre AnesthesiaComment on above:pre-op/ please perform EKGStart: 03-20-2025 Influenza vaccinationInfluenza Vaccine (#1)[facility] CenterComment on above: Postponed from 05/22/2024 (Declined at this time)Start: 03-17-2025 End: 04-76-3815Hzzkvzw encounter cxmupxcnr88/27/2025 3:45 PM EDT Office Visit Internal Medicine [facility] [address] [place] [address] Alexander Gallegos MD [address] [place] [address] Establish Care/transferring careInternal Medicine [facility] Car[facility] RegionComment on above:Establish Care/transferring care Start: 03-17-2025 End: 823779-yxiwbxacxyiwkj D3 [Mass/volume] in Serum or PlasmaVITAMIN D 25 HYDROXY Lab Routine Vitamin D deficiency Expected: 03/17/2025, Expires: 06/16/2025leveland ClinicComment on above:Expected: 03/17/2025, Expires: 06/16/2025Start: 03-17-2025 End: 11-53-0169EXZ W Auto Differential panel - BloodCOMPLETE BLOOD COUNT AND DIFFERENTIAL Lab Routine Chronic fatigue Expected: 03/17/2025, Expires: leveland ClinicComment on above:Expected: 03/17/2025, Expires: 06/16/2025Start: 03-17-2025 End: 22-92-2025Pbxsngsrwsmke metabolic 2000 panel - Serum or PlasmaCOMPREHENSIVE METABOLIC PANEL Lab Routine Chronic fatigue Expected: 03/17/2025, Expires: 06/16/2025[facility] ClinicComment on above:Expected: 03/17/2025, Expires: 06/16/2025Start: 03-17-2025 End: 07-84-8411Vhumdaxyfu A1c in BloodHEMOGLOBIN A1C Lab Routine Hyperglycemia Expected: 03/17/2025, Expires: 06/16/2025leveland ClinicComment on above: Expected: 03/17/2025, Expires: 06/16/2025Start: 03-17-2025 End: 33-11-1816Tmeyg 1996 panel - Serum or PlasmaLIPID PANEL, FASTING Lab Routine Mixed hyperlipidemia Expected: 03/17/2025, Expires: 06/16/2025[facility] ClinicComment on above:Expected: 03/17/2025, Expires: 06/16/2025Start: 03-17-2025 End: 75-14-1606Alkafwawgdc [Units/volume] in Serum or PlasmaTHYROID STIMULATING HORMONE Lab Routine Thyroid nodule Chronic fatigue Expected: 03/17/2025, Expires : 06/16/2025[facility] ClinicComment on above:Expected: 03/17/2025, Expires: 06/16/2025Start: 03-17-2025 End: 48-21-6239Jbidyyhds (T4) free [Mass/volume] in Serum or PlasmaT4 FREE/FREE THYROXINE Lab Routine Thyroid nodule Chronic fatigue Expected: 03/17/2025, Expires: 06/16/2025[facility] ClinicComment on above:Expected: 03/17/2025, Expires: 06/16/2025Start: 03-17-2025 End: 61-76-7605Ofzgtrmsjqazvpen (T3) Free [Mass/volume] in Serum or PlasmaT3, FREE Lab Routine Thyroid nodule Chronic fatigue Expected: 03/17/2025, Expires: 06/16/2025[facility] ClinicComment on above:Expected: 03/17/2025, Expires: 06/16/2025Start: 99-45-5215Iuacbcqmn C screeningHepatitis C ScreeningUniversity Hospitals Ahuja Medical CenterComment on above:Postponed from 12/25/1997 (Declined at this time)Start: 01-24-2025 End: 16-30-5684Nqchgcwxv to same day surgery qndiia1601/24/2025 2:20 PM EDT [facility] Endocrine Surgery [address] [place] [address] Bri Vo MD [address] [place] [address] post opEndocrine SurgeryComment on above: post opStart: 01-19-2025 End: 93-89-5192Yjxwvzy encounter bihxdqici79/01/2025 1:00 PM EDT Office Visit Gastroenterology [address] [facility] [place] [address] Keyla Bolanos MD [address] [place] [address] Fatty Liver, Morbid obesity with BMI of 40.0-44.9, adult (HCC) [E66.01, Z68.41]GastroenterologyComment on above:Fatty Liver, Morbid obesity with BMI of 40.0-44.9, adult (HCC) [E66.01, Z68.41]Start: 37-36-3671Hwrkr-19 Vaccine ( season)Covid-19 Vaccine ( season)[facility] Medical CenterComment on above:Postponed from 05/22/2023 (Declined at this time)Start: 01-05-2025 Hepatitis B Vaccine (1 of 3 - 19+ 3-dose series)Hepatitis B Vaccine (1 of 3 - 19+ 3-dose series)[facility] Medical CenterComment on above:Postponed from 12/25/1998 (Declined at this time)Start: 94-20-8775Wkdhyaucltan vaccinationPneumococcal Vaccine (1 of 2 - PCV)[facility]ja Medical CenterComment on above:Postponed from 12/25/1985 (Declined at this time)Start: 12-28-2024 End: 66-10-0897Jclftvmiw to same day surgery [facility] Surgery Comment on above:THYROIDECTOMY TOTALStart: 66-08-8432Crmrklnvam hospital visit by physicianSub[facility] & [facility] SurgeryComment on above:Multiple thyroid nodules [E04.2]Start: 12-28-2024 End: 55-05-1569Gqqjjhpidogyf total/completeMM ORStart: 85-63-8895Lehzh panel Lipid ScreeningLowell ClinicStart: 18-81-5252Tpanmcuyx for malignant neoplasm of colonProMedica Fostoria Community Hospitaltart: 12-20-2024 End: 15-28-9490Whunvqm encounter uagvlfehi59/01/2025 4:40 PM EDT Office Visit Internal Medicine [facility] [address] [place], [place] [phone] Aidan Montenegro MD [address] [place], [place] [phone] Mandatory medicine visitInternal Medicine LorainComment on above:Mandatory medicine visitStart: 12-14-2024 End: 10-77-9405Ukjfbpng identified in Urine by CultureBACTERIAL CULTURE, URINE Microbiology Routine Pre-op evaluation Abnormal urine odor Expected: 12/14/2024, Expires: 03/15/2025[facility] ClinicComment on above:Expected: 12/14/2024, Expires: 03/15/2025Start: 12-14-2024 End: 00-71-9022Oswjmpeiyl complete panel - UrineURINALYSIS, WITH MICROSCOPIC Lab Routine Pre-op evaluation Abnormal urine odor Expected: 12/14/2024, Expires: 03/15/2025[facility] Work Phone: Comment on above:Expected: 12/14/2024, Expires: 03/15/2025Start: 12-09-2024 End: 53-22-1201Owckgjg encounter procedureEndocrinology [facility] Comment on above:Return in about 3 months (around 12/07/2024) for weight management./68 Return in about 3 months (around 12/07/2024) for weight management.Start: 12-08-2024 End: 47-31-0044Fdcpukk encounter rhhduwgde96/20/2025 8:30 AM EDT Office Visit Gastroenterology [address] [place], [place] [phone] Keyla Bolanos MD [address] [place] [address] Morbid obesity with BMI of 40.0-44.9, adult (HCC) [E66.01, Z68.41] GastroenterologyComment on above:Morbid obesity with BMI of 40.0-44.9, adult (HCC) [E66.01, Z68.41]Start: 11-11-2024 End: 36-75-7809maguzucpdc13/21/2025 1:00 PM EST Results Only [facility] Laboratory [address] [place] [address] Iugxyu [facility] LaboratoryStart: 11-10-2024 End: 17-33-8645noptayblty54/20/2025 1:00 PM EST [facility] Patient Outreach Endocrinology [address] [place] [address] Carl Avila, Granite Installer [address] [place] [address] Severe obesity (BMI >= 40) ([facility]) [E66.01]EndocrinologyComment on above:Severe obesity (BMI >= 40) ([facility]) [E66.01]Start: 11-08-2024 End: 39-34-9260Uxjudvw encounter procedureEndocrine SurgeryComment on above: Thyroid nodules more than 5 cm ad has compressive symptomsINTAKE PENDING--Thyroid nodules more than 5 cm ad has compressive symptomsStart: 11-02-2024 End: 22-10-3808Kvwdfxpyvxs [Units/volume] in Serum or PlasmaTHYROID STIMULATING HORMONE Lab Routine Multiple thyroid nodules Expected: 11/02/2024, Expires: [facility]/19[facility] Work Phone: Comment on above:Expected: 11/02/2024, Expires: 02/01/2025Start: 10-05-2024 End: 15-29-0415pqfrpmasqd68/15/2025 2:00 PM EST [facility] [address] [place], [place] [phone] [place] [address] [place], [place] [phone] Severe obesity (BMI >= 40) (HCC) [E66.01]EndocrinologyComment on above:Severe obesity (BMI >= 40) (HCC) [E66.01]Start: 10-04-2024 End: 36-53-0393Lfwtifu encounter raauekcvb28/14/2025 2:00 PM EST Office Visit Gastroenterology [address] [place] [address] Keyla Bolanos MD [address] [place], [place] [address] Morbid obesity with BMI of 40.0-44.9, adult (HCC) [E66.01, Z68.41] GastroenterologyComment on above:Morbid obesity with BMI of 40.0-44.9, adult (HCC) [E66.01, Z68.41]Start: 09-28-2024 End: 53-33-9977Gwvqgsj encounter flxktumhi73/08/2025 3:00 PM EST Office Visit Endocrinology [address] [place] [address] Jojo Child MD, PhD [address] [place] [address] My thyroid.EndocrinologyComment on above:My thyroid.Start: 09-05-2024 End: 26-14-9046Esujxcg encounter ofnjdgyok63/16/2024 1:00 PM EST Office Visit Endocrinology [address] [place] [address] Iris Lance APRN.[employer] WE[employer]ENTER CONSULTANT [address] [place] [address] Morbid obesity with BMI of 40.0-44.9, adult (HCC) [E66.01, Z68.41]EndocrinologyComment on above:Morbid obesity with BMI of 40.0-44.9, adult (HCC) [E66.01, Z68.41]Start: 08-31-2024 End: 36-43-0408Elifkew encounter xhzgjqpge35/11/2024 3:20 PM EST Office Visit Internal Medicine [place] [address] [place] [address] Aidan Montenegro MD [address] [place] [address] Return in about 4 weeks (around 08/29/2024) for INPERSON, dizziness.Internal Medicine LorainComment on above: Return in about 4 weeks (around 08/29/2024) for INPERSON, dizziness.Start: 08-10-2024 End: 19-50-6718Phpaeyp encounter dumttzhai90/20/2024 4:30 PM EST Office Visit Pain Management [address] [place] [address] Marcus Velazquez, [address] [address] Other chronic pain [G89.29]Pain ManagementComment on above: Other chronic pain [G89.29]Start: 07-27-2024 End: 93-38-8487Vtbonmy encounter nsabyjcts43/06/2024 11:00 AM EST Office Visit [facility] Ophthalmology [address] [facility] [address] [place] [address] Elda Danielson MD [address] [place] [address] 3 month post opOphthalmologyComment on above:3 month post op Start: 07-22-2024 End: 36-67-8547Kqfvkc-up lsetiuykh97/01/2024 8:40 AM EDT [facility] Internal Medicine [place] [address] [place] [address] Aidan Montenegro MD [address] [place] [address] 2-3 weeks follow up w/ PCP Re: RUQ Pain/ResultsInternal Medicine LorainComment on above:2-3 weeks follow up w/ PCP Re: RUQ Pain/ResultsStart: 06-29-2024 End: 37-12-3967Swtomxz encounter cxjoapfuk18/09/2024 7:30 AM EDT Appointment [facility] Radiology Ultrasound [address] [place] [address] RUQ pain [R10.11][facility] Radiology UltrasoundComment on above:RUQ pain [R10.11]Start: 11-64-1194Ffdhoxhss for malignant neoplasm of breastMammogram ScreeningProMedica Fostoria Community Hospitaltart: 06-23-2024 End: 83-53-6852XPS panel - Blood by Automated countUniversity Hospitals Ahuja Medical CenterComment on above:Expected: 06/23/2024, Expires: 09/22/2024Start: 06-23-2024 End: 97-12-6038Xfpnfhaanejzv metabolic 2000 panel - Serum or PlasmaUniversity Hospitals Ahuja Medical CenterComment on above:Expected: 06/23/2024, Expires: 09/22/2024Start: 06-23-2024 End: 34-45-5250Tvzvev [Enzymatic activity/volume] in Serum or PlasmaUniversity Hospitals Ahuja Medical CenterComment on above:Expected: 06/23/2024, Expires: 09/22/2024Start: 06-23-2024 End: 46-19-8540Acgtqtt encounter bcqlwmejr67/03/2024 1:00 PM EDT Office Visit Internal Medicine [place] [address] [place] [address] Aidan Montenegro MD [address] [place] [address] Return in about 4 months (around 06/23/2024), or if symptoms worsen or fail to improve, for INPERSON, chornic pain.Internal Medicine LorainComment on above:Return in about 4 months (around 06/23/2024), or if symptoms worsen or fail to improve, for INPERSON, chornic pain.Start: 05-25-2024 End: 07-37-8790Faiebyl encounter lndlijrot00/04/2024 11:00 AM EDT Office Visit OPHT Ophthalmology [address] [place] [address] Elda Danielson MD [address] [place] [address] 1 month post opOphthalmologyComment on above:1 month post op Start: 96-07-5378Tktxg-19 Vaccine ( season)Covid-19 Vaccine ( season)[facility]: 59-26-5613Wkhzmhasg vaccinationProMedica Fostoria Community Hospitaltart: 05-19-2024 End: 39-74-3781Btmhsjt encounter rhzejqrjj45/29/2024 2:00 PM EDT Office Visit Neurology Pain [address] [place] [address] Ileana Agrawal PA-C [address] [place] [address] follow upNeurology PainComment on above:follow upStart: 05-04-2024 End: 44-21-5727Buobfhv encounter /14/2024 10:30 AM EDT Office Visit OPHT Ophthalmology [address] [place] [address] [address] [place] [address] Elda Danielson MD [address] [place] [address] 1 week post opOphthalmologyComment on above:1 week post op Start: 04-26-2024 End: 26-97-5121Mndmpdepw to same day surgery ggmutd4004/26/2024 2:45 PM EDT - 04/26/2024 4:28 PM EDT Surgery Admitting [address] [place] [address] Elda Danielson MD [address] [place] [address] REPAIR STRABISMUS 1 HORIZONTAL MUSCLEAdmittingComment on above:REPAIR STRABISMUS 1 HORIZONTAL MUSCLEStart: 04-26-2024 End: 30-39-9388Ywtazptqzk recession/rescj 1 hrzntl muscREPAIR STRABISMUS 1 HORIZONTAL MUSCLE Monocular exotropia with other noncomitancies, left eye 2023 2:45 PM EDTMC MAIN PAVILIONStart: 23-52-6538Mundmvvfiz hospital visit by ynpnwdzyh17/06/2024 2:45 PM EDT Hospital Encounter Admitting [address] [place] [address] Elda Danielson MD [address] [place] [address] Monocular exotropia with other noncomitancies, 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]AdmittingComment on above:Monocular exotropia with other noncomitancies, 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]Start: 04-26-2024 End: 05-93-8305Arojelzce to same day surgery odepaa6904/26/2024 1:42 PM EDT - 04/26/2024 3:25 PM EDT Surgery Admitting [address] [place] [address] Elda Danielson MD [address] [place] [address] REPAIR STRABISMUS 1 HORIZONTAL MUSCLEAdmittingComment on above:REPAIR STRABISMUS 1 HORIZONTAL MUSCLEStart: 04-26-2024 End: 48-56-4777Oltkhqrkxs recession/rescj 1 hrzntl muscREPAIR STRABISMUS 1 HORIZONTAL MUSCLE Monocular exotropia with other noncomitancies, left eye 2023 1:42 PM [facility] MAIN PAVILIONStart: 93-94-7412Hwpmqjsmep hospital visit by wwalthpiy96/06/2024 1:42 PM EDT Hospital Encounter Admitting [address] [place] [address] Elda Danielson MD [address] [place] [address] Monocular exotropia with other noncomitancies, 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]AdmittingComment on above:Monocular exotropia with other noncomitancies, 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]Start: 04-22-2024 End: 44-26-4479Dydvjme encounter lnjirdsps71/02/2024 9:40 AM EDT Office Visit Endocrinology [address] [place] [address] Jailene Dave MD [address] [place] [address] 5wk follow upEndocrinologyComment on above:5wk follow upStart: 04-20-2024 End: 82-72-9493Gmuuaxn encounter rorjhzwib18/31/2024 4:00 PM EDT Appointment Radiology [address] [place] [address] ct neck soft tissue w ivconRadiologyComment on above:ct neck soft tissue w ivconStart: 04-15-2024 End: 51-75-6118Oxqkxph encounter laultuamo08/26/2024 3:30 PM EDT Office Visit Neurology Pain [address] [place] [address] Ileana Agrawal PA-C [address] [place] [address] Ketamine follow upNeurology PainComment on above:Ketamine follow upStart: 04-14-2024 End: 91-62-7151zghjbqlwoz87/25/2024 2:00 PM EDT [facility] Pain Recovery [address] [place] [address] Haily Mayer, Therapist [address] [place] [address] Pain PysPain RecoveryComment on above:Pain PysStart: 04-08-2024 End: 99-67-8896Ocybocj encounter /19/2024 11:00 AM EDT PAT Pre Anesthesia [address] [place] [address] 1, [address] [place] [address] pre opPre AnesthesiaComment on above:pre opStart: 04-05-2024 End: 55-55-8043Vklfupj encounter khunqazmk44/16/2024 3:15 PM EDT Office Visit Otolaryngology [address] [place] [address] [place] [address] [place] [address] CONSULT TO ENTOtolaryngologyComment on above:CONSULT TO ENTStart: 03-31-2024 End: 47-05-7315Gghvksz encounter rxyrvlvlq28/11/2024 3:00 PM EDT Office Visit Endocrinology [address] [place] [address] Jailene Dave MD [address] [place] [address] FNA thyroid nodulesEndocrinologyComment on above:FNA thyroid nodulesStart: 03-25-2024 End: 09-40-9828Qbufofq encounter gugwduwya66/05/2024 8:00 AM EDT Office Visit Endocrinology [address] [place] [address] Jailene Dave MD [address] [place] [address] Thyroid nodule [E04.1]EndocrinologyComment on above:Thyroid nodule [E04.1] Start: 03-18-2024 End: 26-00-1166oogjmgbsbn25/28/2024 12:45 PM EDT [facility] Neu[facility] [id number] [place] [address] JPZHBFOW INFUSIONSNeurologyComment on above:KETAMINE INFUSIONSStart: 03-17-2024 End: 69-84-2895xlkmnciigv41/27/2024 12:45 PM EDT Infusion Center Neurology [address] [place] [address] NWZQEGXC INFUSIONSNeurologyComment on above:KETAMINE INFUSIONSStart: 03-16-2024 End: 94-52-9669nunoyppxxl55/26/2024 12:45 PM EDT Infusion Center Neurology [address] [place] [address] STFWGIHR INFUSIONSNeurologyComment on above:KETAMINE INFUSIONSStart: 03-15-2024 End: 36-81-8580htivvwxzkr99/25/2024 12:45 PM EDT [facility]fusion Center Neurology [address] [place] [address] NLZSRRUS INFUSIONSNeurologyComment on above:KETAMINE INFUSIONSStart: 03-14-2024 End: 94-02-6266nlfsxjokyrQqucaffnfjkojNffziza on above:Thyroid NodulesKETAMINE INFUSIONSStart: 03-04-2024 End: 64-58-7996dhxputbeni69/14/2024 10:15 AM EDT [facility] [address] [place] [address] Kaylene Daley PA-C [address] [place] [address] f/up after imagingAtrium Health Southpark Brain Tumor [place]dostaComment on above:f/up after imagingStart: 03-03-2024 End: 15-12-2400Zyjcvfz encounter ygjgjvezv27/13/2024 1:00 PM EDT Office Visit Neurology Pain [address] [place] [address] Ileana Agrawal PA-C [address] [place] [address] Tethered cord (HCC) [Q06.8]Neurology PainComment on above:Tethered cord (HCC) [Q06.8]Start: 02-22-2024 End: 28-62-6903Vpselpw encounter qomkqugkl33/03/2024 2:20 PM EDT Office Visit Internal Medicine [place] [address] [place] [address] Aidan Montenegro MD [address] [place], [place] [id number] 4 weekInternal Medicine LorainComment on above:4 weekStart: 02-22-2024 End: 64-88-4940RHYRSPC PEROXIDASE ANTIBODYUniversity Hospitals Ahuja Medical CenterComment on above: Expected: 02/22/2024, Expires: 05/23/2024Start: 02-22-2024 End: 16-34-3308Paaretfdlau [Units/volume] in Serum or PlasmaEast Liverpool City Hospital Work Phone: Comment on above:Expected: 02/22/2024, Expires: 05/23/2024Start: 02-22-2024 End: 33-65-9587Vocdaazna (T4) free [Mass/volume] in Serum or PlasmaUniversity Hospitals Ahuja Medical CenterComment on above:Expected: 02/22/2024, Expires: 05/23/2024Start: 02-08-2024 End: 04-39-9625Pslgrhn encounter dmnkevrnw98/20/2024 9:40 AM EDT Office Visit [address] [place] [address] Henrique Rodríguez, [employer] CONSULTANT [address] [place] [address] [address] [place] [address] [facility] CenterStart: 02-03-2024 End: 77-47-0583Akpgwqa encounter yjkkaauch32/15/2024 4:00 PM EDT Appointment MRI [facility] [address] [place] [address] Pain in thoracic spine [M54.6]MRI [facility] Hospitalomment on above:Pain in thoracic spine [M54.6]Start: 01-25-2024 End: 89-03-5518Zqktgdl encounter chiomizkj11/06/2024 2:20 PM EDT Office Visit Internal Medicine [place] [address] [place] [address] Aidan Montenegro MD [address] [place], [place] [address] Return for follow up with Dr. boo for lab review from outsidelabs, weight gain, pain med refill.Internal Medicine LorainComment on above:Return for follow up with Dr. boo for lab review from outside labs, weight gain, pain med refill.Start: 01-19-2024 End: 95-13-4713Hnjnziw encounter kvmnshcel99/30/2024 1:00 PM EDT Office Visit [facility] [place] [address] [place] [address] Kaylene Daley PA-C [address] [place] [address] Tethered cord (HCC) [Q06.8][facility] [place] Comment on above:Tethered cord (HCC) [Q06.8]Start: 52-44-7929Jcqhxosbed AssessmentDepression AssessmentProMedica F[facility]oria Community Hospitaltart: 13-90-7816Wwtuh-19 Vaccine ( season)Covid-19 Vaccine ()[facility]: 63-59-3476Qfmszihcg vaccinationInfluenza Vaccine (#1)[facility]: 15-59-2543UJeR/Tdap/Td Vaccines (2 - Td or Tdap)DTaP/Tdap/Td Vaccines (2 - Td or Tdap)[facility]: 34-46-0089VrooqtfrqHolzer Hospital Work Phone: Start: 92-77-4009Encdgxzdg for malignant neoplasm of cervixPap TestingProMedica Fostoria Community Hospitaltart: 05-35-9082Bkxdxkwcj for malignant neoplasm of breastMammogram ScreeningProMedica Fostoria Community Hospitaltart: 46-01-4755Ughemqpxh for malignant neoplasm of breastProMedica Fostoria Community Hospitaltart: 95-77-2242Twdbkoiuo for malignant neoplasm of cervixHPV TestingProMedica Fostoria Community Hospitaltart: 12-25-2009 Screening for malignant neoplasm of cervixHPV TestingProMedica Fostoria Community Hospitaltart: 27-25-3113Hepmocnrz for malignant neoplasm of cervixOhioHealth Dublin Methodist HospitalStalbuquerque: 96-36-9250Ielujlyms B Vaccine (1 of 3 - 19+ 3-dose series) Hepatitis B Vaccine (1 of 3 - 19+ 3-dose series)[facility]: 50-15-1884Ikdrfjuib B Vaccine (1 of 3 - 19+ 3-dose series)Hepatitis B Vaccine (1 of 3 - 19+ 3-dose series)[facility]: 37-05-0823Plqkeyxuu B Vaccines (1 of 3 - 19+ 3-dose series)Hepatitis B Vaccines (1 of 3 - 19+ 3-dose series) [facility]: 83-20-0145Ibthnlsfi C screeningHepatitis C ScreeningProMedica Fostoria Community Hospitaltart: 24-55-5827Sxpxsla ScreeningAnxiety Screening [facility]: 21-97-8300Numsmadvvo ScreeningDepression Screening [facility]: 52-30-4989Bcieisve mellitus screeningDiabetes Screening [facility]: 89-81-2179Nwwvqlqpu C screeningHepatitis C ScreeningProMedica Fostoria Community Hospitaltart: 62-16-8587Dvdhlwvoxtih vaccination Pneumococcal Vaccine (1 of 2 - PCV)[facility]: 82-46-2609Yyipusjssiih vaccinationPneumococcal Vaccine (1 of 2 - PCV)[facility]: 12-25-1985 Pneumococcal Vaccine: Pediatrics (0 to 5 Years) and At-Risk Patients (6 to 64 Years) (1 of 2 - PCV)Pneumococcal Vaccine: Pediatrics (0 to 5 Years) and At-Risk Patients (6 to 64 Years) (1 of 2 - PCV)[facility]: 13-11-2328DFQ Vaccines (1 of 1 - Standard series)MMR Vaccines (1 of 1 - Standard series)[facility]: 19-65-7781JTP screeningHIV ScreeningSelect Medical Specialty Hospital [facility]: 91-84-4910Jnxyv panelLipid PanelSelect Medical Specialty Hospital - [facility]: 26-61-0617Hnbwfl Adult Physical Yearly Adult PhysicalOhioHealth Dublin Methodist HospitalBacteria identified in Urine by CultureURINE CULTURE Microbiology Routine Urinary frequency 01/25/2024 3:00 PM EDTCOhioHealth Work Phone: End: 55-50-9519Zaaxifdsja Pulse oximetry, In Phase 1Continuous Pulse oximetry, In Phase 1 Respiratory Care Routine Continuous until discontinued starting 01/18/2024[facility] Service Area Work Phone: comment on above:Continuous until discontinued starting 01/18/2024 End: 36-19-5179JU Neck W contrast IVCT NECK SOFT TISSUE W IVCON Radiology Routine Multiple thyroid nodules 1 Occurrences starting 04/05/[address] [place] [address] Work Phone: Comment on above:1 Occurrences starting 04/05/2024 until 05/05/2025YTOLOGY NON-GYNCYTOLOGY NON-PHOTO JOURNALIST Lab Routine Thyroid nodule Ordered: [address] [place] [address] Work Phone: Comment on above:Ordered: 03/31/2024 End: 69-46-8085DDK Breast - bilateral screeningMAM SCREENING W STEFFEN Radiology Routine Encounter for screening mammogram for breast cancer 1 Occurrences starting 08/03/[address] [place] [address] Work Phone: Comment on above:1 Occurrences starting 08/03/2024 until 09/02/2025ENDO THYROID/LYMPH NODE FNAENDO THYROID/LYMPH NODE FNA Procedures Routine Thyroid nodule Ordered: [address] [place] [address] Work Phone: Comment on above:Ordered: 03/25/2024ENDO THYROID/LYMPH NODE FNAENDO THYROID/LYMPH NODE FNA Procedures Routine Thyroid nodule Ordered: [address] [place], [place] [address]Comment on above:Ordered: 03/31/2024 End: 50-01-4179UA Cervical spine WO contrastMRI CERVICAL SPINE WO IVCON Radiology Routine Abnormal findings on diagnostic imaging of other parts of musculoskeletal system 1 Occurrences starting 01/19/2024 until 02/17/2025 [facility] Medical CenterComment on above:1 Occurrences starting 01/19/2024 until 02/17/2025 End: 31-49-8465EA Lumbar spine WO contrastMRI LUMBAR SPINE WO IVCON Radiology Routine Encounter for observation for other suspected diseases and conditions ruled out 1 Occurrences starting 01/19/[address] [place] [address] Work Phone: Comment on above:1 Occurrences starting 01/19/2024 until 02/17/2025 End: 00-12-9407YV Thoracic spine WO contrastMRI THORACIC SPINE WO IVCON Radiology Routine Pain in thoracic spine 1 Occurrences starting 01/19/2024 until 02/17/2025[facility] WestComment on above:1 Occurrences starting 01/19/2024 until 02/17/2025Patient EducationMercy Health West Hospital Ctr Work Phone: Patient referralMercy Health West Hospital Ctr Work Phone: Strabismus recession/rescj 1 hrzntl muscREPAIR STRABISMUS 1 HORIZONTAL MUSCLE Monocular exotropia with other noncomitancies, left eyeKettering Health Main Campus End: 75-67-9595DG Abdomen RUQUS ABD RIGHT UPPER QUADRANT Radiology Routine RUQ pain 1 Occurrences starting 06/23/[address] [place] [address] Work Phone: Comment on above:1 Occurrences starting 06/23/2024 until 07/23/2025US Abdomen RUQUS ABD RIGHT UPPER QUADRANT Radiology Routine RUQ pain 06/29/2024 8:16 AM [facility] Work Phone: US Thyroid glandUS THYROID/PARATHYROID Radiology Routine Nontoxic single thyroid nodule 02/08/2024 12:37 PM [facility] Work Phone: End: 86-10-1951XI Thyroid glandUS THYROID/PARATHYROID Radiology Routine Thyroid nodule 1 Occurrences starting 03/17/2025 until 04/16/2026[facility] Work Phone: Comment on above:1 Occurrences starting 03/17/2025 until 04/16/2026 End: 89-00-0906AI Lumbar spine 3 ViewsXR LUMBAR GENERAL 3V AP/LAT/L5-S1 Radiology Routine Tethered cord (HCC) Hx of spina bifida Chronic bilateral low back pain, unspecified whether sciatica present H/O laminectomy Chronic pain syndrome 1 Occurrences starting 12/07/[address] [place] [address] Work Phone: Comment on above:1 Occurrences starting 12/07/2023 until 01/05/2025XR Lumbar spine 3 ViewsXR LUMBAR GENERAL 3V AP/LAT/L5-S1 Radiology Routine Tethered cord (HCC) Hx of spina bifida Chronic bilateral low back pain, unspecified whether sciatica present H/O laminectomy Chronic pain syndrome 01/19/2024 11:01 AM [facility] Work Phone: [facility] Immunizations Immunization DateImmunizationNotesCare XqnjbsfpSlnzinzi26-36-7869hnxixri toxoid, reduced diphtheria toxoid, and acellular pertussis vaccine, adsorbedAidan Forrester MD Work Phone: [facility]ja Medical CenterFmmyum35-89-5859xqzoliy toxoid, reduced diphtheria toxoid, and acellular pertussis vaccine, adsorbedChristopher Matt OD Work Phone: [facility] Medical CenterBxgfoj62-67-3683yodyoykkj virus vaccine, unspecified formulationChristopher Matt OD Work Phone: [facility]huja Medical CenterEoulon75-53-1239ZK(adult) unspecified formulationAidan Forrester MD Work Phone: [facility] Payers DatePayer CategoryPayerPolicy ID2023Medicaid [id number] [id number] 2..[id number] 2..[id number] 2..[id number] 2..[id number] 2..1.[id number] [id number] [id number] [id number] 01-39-5008Bn[id number]-jmeSnap Pay [id number] Social History DateTypeDetailFacilityUnknown if ever smokedNort D-Share Other Start: 12-07-2018 End: 89-61-8882Mml [facility]igned At [facility]ertart: 09-21-2003 End: 88-96-7993Qldbtxb smoking status NHISSmoker (finding)[facility], Inctart: 10-17-5331Aeq Assigned At BirthFeWilson Street Hospitaltart: 59-92-3167Bpxcrgu smoking status NHISCurrent some day smokerSelect Medical Specialty [facility], Inctart: 05-26-2017 End: 28-32-3195Olgvnvy smoking status NHISSmokes tobacco dailyUniversity Hospitals Ahuja Medical Center Start: 03-21-1995 End: 25-88-7808Lxafapf of tobacco useCigarette SmokerProMedica Fostoria Community Hospitaltart: 05-26-2017 End: 39-92-7068Cvujgnnvwj smoked current (pack per day) - Rkdjqavl0Hazbymcip ClinicStart: 05-26-2017 End: 77-12-6293Ssjxeye use and exposureSmokeless tobacco non-userProMedica Fostoria Community Hospitaltart: 12-01-2023 End: 78-85-8863Mobsgxl intakeCurrent non-drinker of alcohol (finding)[facility] Depression Screening Myxsrkfdae7Pteknnjvv ClinicStart: 1979 End: 93-48-5040Jre Assigned At BirthNot on fileHolmes County Joel [facility] the electric, gas, oil, or water company threatened to shut off services in your home in past 12MoYesCLake County Memorial Hospital - WestAre you now , , , , never or living with a partner?DivorcedCleveland ClinicHow often to you have a drink containing alcohol?Monthly or lessLowell ClinicHow many standard drinks containing alcohol do you have on a typical day?3 or 4Clevelunc health johnston clayton ClinicHow often do you have 6 or more drinks on 1 occasion?NeverCleveland ClinicHow hard is it for you to pay for the very basics like food, housing, medical care, and heatingSomewhat hardCleveland ClinicDo you feel stress - tense, restless, nervous, or anxious, or unable to sleep at night because yourmind is troubled all the time - these days [OSQ]Very muchLowell Clinic(I/We) worried whether (my/our) food would run out before (I/we) got money to buy more.Sometimes true [facility] Medical CenterThe food that (I/we) bought just didn't last, and (I/we) didn't have money to get more.Never trueUniversity Hospitals Ahuja Medical CenterIn the past 12 months, was there a time when you were not able to pay the mortgage or rent on time?No [facility] Hospitaltart: 01-18-2024 End: 94-25-8432Cudgmqynz beverage intakeEx-drinker (finding)[facility] Work Phone: Start: 01-08-2024 End: 78-32-4981Tceqeelu to SARS-CoV-2 (event)Not sureUnSuburban Community Hospital & [facility] Work Phone: Start: 04-08-2024 End: 22-48-0972Wfhctsz intakeCurrent drinker of alcohol (finding)[facility] Hospitaltart: 21-45-8894Wrmizxo Commentoccasional- 3x a yearUniversity Hospitals Ahuja Medical Center Start: 97-76-1440Hffpjwn Comment1 day/month 1 drink.[facility] Hospitaltart: 28-99-3259Vsviwcg smoking status NHISEx-smokerProMedica Fostoria Community Hospitaltart: 12-14-2024 Alcohol Commentonce every 6 monthsProMedica Fostoria Community HospitalexFemale (finding)[facility] Goals DatePatient GoalDesired Activity/State Functional Status WcmjSholkfogfzIztkhbKyutpzxh72-94-9074Cyc you deaf, or do you have serious difficulty hearingNo 06/19/2017 4:35 PM EDT Norma Pino APRN.[facility] Work Phone: [phone] you blind, or do you have serious difficulty seeing, even when wearing glassesNo 06/19/2017 4:35 PM EDT Nomra Pino APRN.[facility]09-29-2017Do you have serious difficulty walking or climbing stairsNo 06/19/2017 4:35 PM EDT Norma Pino APRN.[facility]09-29-2017Do you have difficulty dressing or bathingNo 06/19/2017 4:35 PM EDT Norma Pino APRN.[facility]09-29-2017 Because of a physical, mental, or emotional condition, do you have difficulty doing errands alone such as visiting a physician's office or shoppingNo 06/19/2017 4:35 PM EDT Norma Pino APRN.[facility] Mental Status CbeoBvtjryvxcmMusdwlOkxjtbak71-82-0713Ubffaim of a physical, mental, or emotional condition, do you have serious difficulty concentrating, remembering, or making decisionsNo 06/19/2017 4:35 PM EDT Norma Pino APRN.[facility] Clinical Notes 10-25-2003 to 06-05-2025 Note Date & HgvkCusuCzekyndg39-23-3385 Evaluation note* Diagnosis Onset Date Resolution Status Admit Date UTI (urinary tract infection) acuteSeptember 2024 4:17pm [facility] Work Phone: 1(698) 698-710207-10-2025 NoteHNO ID: [id number] Author: ?, ?, ? Service: ? Author Type: ? Type: Progress Notes Filed: 03/30/2025 16:55 Note Text: POPULATION HEALTH NAVIGATION OUTREACH Action/FYI [place] Support: Called pt to schedule an appt [...] Signature: Wilma Tong March 30, 2025 4:55 [facility]07-10-2025 History of Present illness Narrative* Wilma Tong - 03/30/2025 4:55 PM EDT POPULATION HEALTH NAVIGATION OUTREACH Action/[facility] [...] 30, 2025 4:55 PM documented in this encounterUniversity Hospitals Ahuja Medical Center07-10-2025 NotePatient Outreach (NETNAV) KARLENE TOM ([id number]) 1980 F Date Time Provider Department 03/30/25 NO PCP (HIST) NETNAV During your visit today, we recorded the [...] MORPHINE 05/26/2017 8 - GI Upset NEOSPORIN (GHNRVDEK-TGRSXHMZBG-MH*10/07/2011 2 - Rash SILVER SULFADIAZINE 01/18/2024 14 [...] 12/14/2024 Encounter Status:Closed by WILMA TONG on 03/30/25[facility] 03-23-2025 Telephone encounter Note* Telephone Encounter - Daniel Waggoner RN - 03/23/2025 10:11 AM EDT 03/23/25 1010H Left pt a voice mail asking if she had made a decision if she would like to proceed with surgery. I have given her the office number or she can send a MyChart message with her decision. Daniel Waggoner RN [facility]07-03-2025 Miscellaneous Notes* Telephone Encounter - Daniel Waggoner RN - 03/23/2025 10:11 AM EDT 03/23/25 1010H Left pt a voice mail asking if she had made a decision if she would like to proceed with surgery. I have given her the office number or she can send a MyChart message with her decision. Daniel Waggoner RN * Telephone Encounter - Daniel Waggoner RN - 03/14/2025 2:09 PM EDT 03/14/25 1405 H Called patient and informed her that the reason Dr. Vo is recommending surgery is because she washaving compressive symptoms from her 5.5 cm thyroid [...] appointment. She was thankful for the call. Daniel Waggoner RN * Telephone Encounter - Durga Radha - 03/14/2025 12:32 PM EDT Patient called because she wants more information [...] to diet, such as significant weight gain andsugar intake. Patient requests a telephone call to discuss the pros/cons of having the surgery. documented in this encounterUniversity Hospitals Ahuja Medical Center07-02-2025 NoteHNO ID: [id number] Author: ALEXANDER GALLEGOS MD Service: ? Author Type: Physician Type: Progress Notes Filed: 03/22/2025 14:13 Note Text: This note was created using Paper Hunterriter. Subjective Karlene Tom is a 44 year [...] no mass. Tenderness: The (more content not included)...[facility] [facility] History of Present illness Narrative* Alexander Gallegos MD - 03/22/2025 2:11 PM EDT This note was created using NoteWriter. Subjective Karlene Tom is a 44 year [...] disintegrating tablet, Take 4 mg by mouth every8 hours as needed for nausea/vomiting., Disp: , [...] right-sided sciatica - ICD9: 724.2, 724.3, 338.29, ICD10:M54.41, G89.29 (primary diagnosis) - CONSULT TO PAIN [...] A1C Alexander Gallegos MD documented in this encounterUniversity Hospitals [facility]06-24-2025 Telephone encounter Note * Telephone Encounter - Daniel Waggoner, RN - 03/14/2025 2:09 PM EDT 03/14/25 1405 H Called patient and informed her that the reason Dr. Vo is recommending surgery is because she washaving compressive symptoms from her 5.5 cm thyroid [...] appointment. She was thankful for the call. Daniel Waggoner, RN [facility]06-24-2025 Telephone encounter Note* Telephone Encounter - Radha Calixto - 03/14/2025 12:32 PM EDT Patient called because she wants more information [...] to diet, such as significant weight gain andsugar intake. Patient requests a telephone call to discuss the pros/cons of having the surgery. [facility]06-04-2025 Telephone encounter Note* Telephone Encounter - Tracie Williamson APRN.CNP - 02/22/2025 3:36 PM EDT The following approved medication requests have been transmitted electronically. Requested Prescriptions Signed Prescriptions Disp Refills pregabalin (LYRICA) 75 mg capsule 90 capsule 0 Sig: Take 1 capsule by mouth three times a day for 30 days. Authorizing Provider: RTACIE WILLIAMSON traMADol (ULTRAM) 50 mg tablet 90 tablet 0 Sig: Take 1 tablet by mouth three times a day for 30 days. Authorizing Provider: TRACIE WILLIAMSON APRN.CNP [facility]06-04-2025 Miscellaneous Notes* Telephone Encounter - Tracie Williamson APRN.CNP - 02/22/2025 3:36 PM EDT The following approved medication requests have been [...] for 30 days. Authorizing Provider: TRACIE WILLIAMSON APRN.ORACLE WEBCENTER CONSULTANT * Telephone Encounter - Malini Garcia - 02/22/2025 12:42 PM EDT Patient Scheduled to establish care with Alexander Gallegos MD on 03/17/25 at 3:45 PM. * Telephone Encounter - Mariah Mann RN - 02/22/2025 12:38 PM EDT Message received from provider. Will provide one month refill. Must be seen in March for next refill if not yet established with new PCP. * Telephone Encounter - Mariah Mann RN - 02/22/2025 12:28 PM EDT Call placed to pt per provider request. Pt states she is looking for a refill of her Tramadol and Lyrica. Pt states she has spina bifida. Pt also asked how to go about finding a new primary. Advised will ask my scheduling team contact her to arrange a new PCP appointment. Pt verbalized understanding. No further questions. * Telephone Encounter - Tracie Williamson APRN.CNP - 02/22/2025 12:14 PM EDT Chart reviewed in light of upcoming appt today Traveling a great distance from [facility] for medication refill as pcp left Can you call her to see what she needs and if a refill can she request on mychart? I have not seen her in over a year so unknown what the history is with her medication, but can try to refill if ablewithout a big trip to ask for a refill documented in this encounterUniversity Hospitals Ahu[facility] Center06-04-2025 Telephone encounter Note * Telephone Encounter - Malini Garcia - 02/22/2025 12:42 PM EDT Patient Scheduled to establish care with Alexander Gallegos MD on 03/17/25 at 3:45 PM. [facility]06-04-[facility] Telephone encounter Note* Telephone Encounter - Mariah Mann RN - 02/22/2025 12:38 PM EDT Message received from provider. Will provide one month refill. Must be seen in March for next refill if not yet established with new PCP. [facility]06-04-2025 Telephone encounter Note* Telephone Encounter - Mariah Mann RN - 02/22/2025 12:28 PM EDT Call placed to pt per provider request. Pt states she is looking for a refill of her Tramadol and Lyrica. Pt states she has spina bifida. Pt also asked how to go about finding a new primary. Advised will ask my scheduling team contact her to arrange a new PCP appointment. Pt verbalized understanding. No further questions. [facility]06-04-2025 Telephone encounter Note* Telephone Encounter - Tracie Williamson APRN.VENTURA - 02/22/2025 12:14 PM EDT Chart reviewed in light of upcoming appt today Traveling a great distance from [facility] for medication refill as pcp left Can you call her to see what she needs and if a refill can she request on mychart? I have not seen her in over a year so unknown what the history is with her medication, but can try to refill if ablewithout a big trip to ask for a refill [facility]04-04-2025 Telephone encounter Note* Telephone Encounter - Rod Randhawa PA-C - 12/23/2024 7:27 AM EDT Good morning, I evaluated Ms. Karlene Tom in PACC, she is scheduled for surgery on 12/28. She self-catheterizesdue to neurogenic bladder and was complaining of abnormal urine odor and change in color. Urine culture grew E.coli, I prescribed the patient Macrobid. Please let me know if you have any questions or concerns. Rod Randhawa PA-C PACC [facility]04-04-2025 Miscellaneous Notes* Telephone Encounter - Rod Randhawa PA-C - 12/23/2024 7:27 AM EDT Good morning, I evaluated Ms. Karlene Tom in PACC, she is scheduled for surgery on 12/28. She self-catheterizesdue to neurogenic bladder and was complaining of abnormal urine odor and change in color. Urine culture grew E.coli, I prescribed the patient Macrobid. Please let me know if you have any questions or concerns. Rod Randhawa PA-C PACC documented in this encounterUniversity Hospitals Ahu[facility] Center04-02-2025 Telephone encounter Note * Telephone Encounter - Cari Olmstead MA - 12/21/2024 1:00 PM EDT Received request for refill of the following [...] Olmstead MA Routed to provider for review [facility]04-02-2025 Miscellaneous Notes* Telephone Encounter - Cari Olmstead MA - 12/21/2024 1:00 PM EDT Received request for refill of the following [...] to provider for review documented in this encounterUniversity Hospitals Ahuja [facility] Center04-01-2025 NoteHNO ID: [id number] Author: AIDAN MONTENEGRO MD Service: ? Author [...] 50 Mg Tablet 84.00 28 Ra Joe [id number] [place] ([id number]) 0 30.00 MME [place] 11/18/2024 10/17/2024 1 Pregabalin 75 Mg Capsule 84.00 28 Ra Joe [id number] [place] ([id number]) 1 1.51 LME [place] [...] fail to improve (more content not included)... [facility]04-01-2025 History of Present illness Narrative* Aidan Montenegro MD - 12/20/2024 4:50 PM EDT Karlene Tom is a 43 year old female Chief complaint: Same Day Appointment (Mandatory medicine visit) Subjective HPI: Update since last visit: H/o chronic pain in low back pain and leg pain chronic, treated with pregabalin 75 mg 3 times dailyand tramadol 50 mg TID, Prior treatment with ketamine once. Follow up neurology and neurosurgery. H/o neurogenic bladder had botox injection last week. Prescribed ciprofloxacin and reports had mouth and body itching Follow up Urology C/o changes in smell and frequently. Had visit for preanesthesia who recommended urine tests to r/ourine infection prior surgery before thyroidectomy recommended for thyroid nodules causing compressing symptoms referred for surgery Frequent urine infections about 6 UTI in past 1 year. Planning to change urologist to [facility] PMDP: 11/22/2024 11/22/2024 1 Tramadol Hcl 50 Mg Tablet 84.00 28 Ra Joe [id number] [place] ([id number]) 0 30.00 MME Medicaid [place] 11/18/2024 10/17/2024 1 Pregabalin 75 Mg Capsule 84.00 28 Ra Joe [id number] [place] ([id number]) 1 1.51 LME [place] [...] myelomeningocele repair at and revision on 1994 cut7170, - Chronic pain in low back pain [...] necessary for today's visit. documented in this encounterUniversity Hospitals Ahuja [facility] Center03-26-2025 Instructions* Patient Instructions* Rod Randhawa PA-C - 12/14/2024 10:49 AM EDT Images from the original note were not included. [facility] PATIENT PREOPERATIVE INSTRUCTIONS No ref. provider found has scheduled you for your procedure at this surgery center: [facility]: [phone] -- [address] [place] [address]. Please read below carefully for your personalized [...] office. If you are currently using a hpxq-ksc-xvur injectable or oral medication for diabetes or weight loss such as Dulaglutide (Trulicity), Exenatide (Byetta, Bydureon), Liraglutide (Victoza, Saxenda), Semaglutide (Ozempic, Wegovy, Rybelsus), or Tirzepatide (Mounjaro), the medicine should be stopped at least 7 days before surgery. These medicines can cause food to remain in your stomach for a very longtime and increase the risks from surgery and [...] Procedures: - YOU MUST HAVE A RESPONSIBLE CAPSULE FILLER TAKE YOU HOME. A SAFETY CLOTHING AND EQUIPMENT DEVELOPER OR HI TEACHER CANNOT BE MADE A RESPONSIBLE CAPSULE FILLER. - We recommend that a responsible person stays with you overnight to take care of you. - You cannot stay in a hotel alone after outpatient surgery. You will not be permitted to have yoursurgery, if you do not have someone to [...] Advance Directive, please fax a copy to [phone] or email to for it to be added to your chart. If you do not have an Advance Directive, you can find the appropriate form and more information at [email or web address]. We recommend that youcomplete the Advance Directive form found on the website and bring it with you the day of your surgery. It can be witnessed and scanned into your chart that day. Rod Randhawa PA-C documented in this encounterUniversity Hospitals Ahuja Medical Center03-26-2025 History and physical note * Rod Randhawa PA-C - 12/14/2024 10:30 AM EDT Images from the original note were not included. [place] [facility] HISTORY [...] service. This is a virtual visit using Lodo [employer] video visit. It required patient-provider interaction for themedical decision making as documented below. REASON FOR VISIT: Karlene Tom is a 43 year old female who is scheduled for Procedure(s): THYROIDECTOMY TOTAL (Bilateral) at the request of Bri Noel MD for consultation. Myfinal recommendation will be communicated back to the requesting physician by way of shared medicalrecord or letter. Subjective The patient has the [...] virtual visit. The visit was conducted using Lodo [employer] video visit. It required patient-provider interaction for the medical decision making as documented below. I have communicated my name and active licensure. The patient's identity and physical location wereverified at the time of this visit. Either the patient or their legal solar sales representative and assessor has been informed of the risks and [...] 390 QTC Calculation (Bazett) 408 Calculated P Santo 62 Calculated R Santo 33 Calculated T Santo 35 Impression NORMAL SINUS RHYTHM POSSIBLE LEFT ATRIAL ENLARGEMENT BORDERLINE ECG Confirmed by KAREEN PACE MD ([id number]) on 11/25/2024 4:27:43 PM No results found for this or any previous visit (from the past 68664 hours). Instructions Given to Patient: Instructions located in the after visit summary. Patient given verbal and written preop instructions and voices comprehension and compliance. SIGNATURE: Rod Randhawa PA-C PATIENT NAME: Karlene Tom DATE: December 14, 2024 TIME: 10:22 AM PAGER/CONTACT #: [facility]03-26-[facility]25 History and physical note* Rod Randhawa PA-C - 12/14/2024 10:30 AM EDT Images from the original note [...] service. This is a virtual visit using Lodo [employer] video visit. It required patient-provider interaction for themedical decision making as documented below. REASON FOR VISIT: Karlene Tom is a 43 year old female who is scheduled for Procedure(s): THYROIDECTOMY TOTAL (Bilateral) at the request of Bri Noel MD for consultation. Myfinal recommendation will be communicated back to the requesting physician by way of shared medicalrecord or letter. Subjective The patient has the [...] virtual visit. The visit was conducted using [employer] video visit. It required patient-provider interaction for the medical decision making as documented below. I have communicated my name and active licensure. The patient's identity and physical location wereverified at the time of this visit. Either the patient or their legal solar sales representative and assessor has been informed of the risks and [...] 390 QTC Calculation (Bazett) 408 Calculated P Santo 62 Calculated R Santo 33 Calculated T Santo 35 Impression NORMAL SINUS RHYTHM POSSIBLE LEFT ATRIAL ENLARGEMENT BORDERLINE ECG Confirmed by KALE PACE MDM ([id number]) on 11/25/2024 4:27:43 PM No results found for this or any previous visit (from the past 78235 hours). Instructions Given to Patient: Instructions located in the after visit summary. Patient given verbal and written preop instructions and voices comprehension and compliance. SIGNATURE: Rod Randhawa PA-C PATIENT NAME: Karlene Tom DATE: December 14, 2024 TIME: 10:22 AM PAGER/CONTACT #: documented in this encounterUniversity Hospitals Ahuja Medical Center03-06-2025 NoteHNO ID: [id number] Author: INDIRA WILLINGHAM MA Service: ? 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 Vo for an EKG for pre-op testing LMP 08/28/2024 (Exact Date) Physician/OTIS notification and treatment plan: EKG uploaded to Bloominous Nursing Plan: N/A Patient instructed to call and update the office if there are any changes in current condition. Patient verbalizes understanding of the plan: Yes. Patient's questions were addressed during the visit today: Yes Indira Willingham MA November 24, 2024 1:25 PMCG[facility]03-[facility] History of Present illness Narrative* Indira Willingham MA - 11/24/2024 1:24 PM EST Images from the original note were not included. 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 Patient verbalizes understanding of the plan: Yes. Patient's questions were addressed during the visit today: Yes Indira Willingham MA November 24, 2024 1:25 PM documented in this encounterUniversity Hospitals Ahuja Medical Center02-20-2025 NoteHNO ID: [id number] Author: CARL AVILA Granite Installer Service: ? Author Type: Granite Installer Type: Progress Notes Filed: 11/10/2024 14:10 Note [...] test prior to receiving an exercise prescription. [facility]02-20-2025 History of Present illness Narrative* Carl Avila Granite Installer - 11/10/2024 1:59 PM EST Virtual Visit (Audio/Visual) I have discussed the [...] receiving an exercise prescription. documented in this encounterUniversity Hospitals Ahuja Medical Center02-18-2025 History of Present illness Narrative* Bri Vo MD - 11/08/2024 1:00 PM EST [facility] Endocrinology and Metabolism [place] Department of Endocrine Surgery Bri Vo M.D. [address] [place] [address] Ms. Karlene Tom was seen in the [...] significant for spina bifida, neuropathy, morbid obesity, andneurogenic bladder. Her medications include dulaglutide, tramadol, pregabalin, [...] terms of compressive symptoms related to the thyroidgland, she has dysphagia and pressure on her [...] be best served by undergoing a total thyroidectomy.The indications, risks, benefits, and alternatives of a total thyroidectomy were explained to the patient in detail. I will keep you informed as to her perioperative course. I appreciate being involved in the care of your patient, and please feel free to contact me should you have additional questions or concerns. BRI VO M.D. CC: Susan Webb M.D. documented in this encounterUniversity Hospitals Ahuja Medical Center02-18-2025 NoteHNO ID: [id number] Author: BRI VO MD Service: ? Author Type: Physician Type: Progress Notes Filed: 11/08/2024 12:41 Note Text: [facility] Endocrinology and Metabolism [place] Department of Endocrine Surgery Bri Vo M.D. [address] [place] [address] Ms. Karlene Tom was seen in the [...] M.D. CC: Jailene Dave M.D. Aidan Forrester M.D.[facility]02-12-2025 Telephone encounter Note* Telephone Encounter - Hi Montalvo - 11/02/2024 2:05 PM EST 11/02/2024 INTAKE PENDING-NEED TSH-SENT [facility] FOR A RETURN CALL. ENDOCRINE SURGERY PATIENT WORKSHEET Initial Call Date: November 02, 2024 Reason for Consult/ Referral: Thyroid Nodule PATIENT DEMOGRAPHICS Name: Karlene Tom [facility]#: [id number] : 1980 AGE: [age] year old Contact Numbers: Home: (home) Work: There is no work phone number on file. PATIENT PHYSICIAN INFORMATION Referring Doctor: Address: Phone: Carpet Inspector Finished: Address: Phone: PCP: Aidan Forrester [address] [place] [address] PAST TREATMENT Office notes: SEE [facility] Medications: NONE THAT APPLY Pre-Visit Testing STUDY/TEST DATE ORDERED/REQUESTED DATE RECEIVED/COMPLETED ENTIRE PANEL TSH 11/02/24 FREE T4 FREE T3 Imaging Reports: SEE [facility] CD of Images: SEE [facility] FNA: yes: 03/2024 FNA Slides: [facility] at [facility] Has the patient ever had thyroid or parathyroid surgery before: No Operative Reports: NONE AVAILABLE Pathology Reports: SEE EPIC [facility]02-12-2025 Miscellaneous Notes* Telephone Encounter - SelvinJamel babcockHi - 11/02/2024 2:05 PM EST 11/02/2024 INTAKE PENDING-NEED T[facility]. ENDOCRINE SURGERY PATIENT WORKSHEET Initial Call Date: November 02, 2024 Reason for Consult/ Referral: Thyroid Nodule PATIENT DEMOGRAPHICS Name: Karlene Tom [facility]#: [id number] : 1980 AGE: [age] year old Contact Numbers: Home: (home) Work: There is no work phone number on file. PATIENT PHYSICIAN INFORMATION Referring Doctor: Address: Phone: Carpet Inspector Finished: Address: Phone: PCP: Aidan Forrester [address] [place] [address] PAST TREATMENT Office notes: SEE EPIC Medications: NONE THAT APPLY Pre-Visit Testing STUDY/TEST DATE ORDERED/REQUESTED DATE RECEIVED/COMPLETED ENTIRE PANEL TSH 11/02/24 FREE T4 FREE T3 Imaging Reports: SEE [facility] CD of Images: SEE EPIC FNA: yes: 03/2024 FNA Slides: [facility] at [facility] Has the patient ever had thyroid or parathyroid surgery before: No Operative Reports: NONE AVAILABLE Pathology Reports: SEE EPIC documented in this encounterUniversity Hospitals Ahuja Medical Center02-10-2025 Telephone encounter Note * Telephone Encounter - Lois Meneses RN - 10/31/2024 4:08 PM EST TYRONE 09/08/2024 (Brayan) NOV 12/09/2024 (Brayan) Patient taking Trulicity 1.5mg, asking for refill. Order pended [facility]02-10-2025 Miscellaneous Notes* Telephone Encounter - Lois Meneses RN - 10/31/2024 4:08 PM EST TYRONE 09/08/2024 (Christen) NOV 12/09/2024 (Christen) Patient taking Trulicity 1.5mg, asking for refill. Order pended documented in this encounterUniversity Hospitals Ahuja Medical Center01-27-2025 Telephone encounter Note * Telephone Encounter - Aidan Montenegro MD - 10/17/2024 11:58 AM EST Request for controlled medication pregabalin and tramadol. PMDP checked. No signs of concerns. Refill sent. Lab Results Component Value Date UOPI Negative 06/11/2017 UOXYC Positive (A) 06/11/2017 UBENZ Positive (A) 06/11/2017 UCOC2 Negative 06/11/2017 UAMPH Negative 06/11/2017 UETOH <11 06/11/2017 ] [facility]01-27-2025 Miscellaneous Notes* Telephone Encounter - Aidan Montenegro MD - 10/17/2024 11:58 AM EST Request for controlled medication pregabalin and tramadol. PMDP checked. No signs of concerns. Refill sent. Lab Results Component Value Date UOPI Negative 06/11/2017 UOXYC Positive (A) 06/11/2017 UBENZ Positive (A) 06/11/2017 UCOC2 Negative 06/11/2017 UAMPH Negative 06/11/2017 UETOH <11 06/11/2017 ] * Telephone Encounter - Elizabeth Landrum MA - 10/17/2024 10:00 AM EST Received request for refill of the following [...] 17, 2024 10:00 AM documented in this encounterUniversity Hospitals Ahuja Medical Center01-27-2025 Telephone encounter Note * Telephone Encounter - Elizabeth Landrum MA - 10/17/2024 10:00 AM EST Received request for refill of the following [...] Landrum MA October 17, 2024 10:00 AM [facility]01-17-2025 Telephone encounter Note* Telephone Encounter - Roosevelt Mcgee MA - 10/07/2024 9:24 AM EST Requester: Patient Patients last Endocrinology visit occurred 09/08/2024 w/ Brayan Dave CNP. Follow-up evaluation has been established Upcoming Endocrinology Appointments - Next 365 Days Visit Type Date Time Department [facility] 11/08/2024 1:00 PM ENDO [facility] EP EDU NON [facility] 11/10/2024 1:00 PM ENDO [facility] EST [facility] PATIENT 12/09/2024 1:30 PM ENDO [facility] . Requested Prescriptions Pending Prescriptions Disp Refills dulaglutide (TRULICITY) 0.75 mg/0.5 mL pen injector 2 mL 0 Sig: Inject 0.75 mg subcutaneously one time a week. If patient is due for an appointment please route to provider for refill consideration and also to the endo scheduling pool. PSS NOTE: Patient needs scheduled appointment No [facility]01-17-2025 Miscellaneous Notes* Telephone Encounter - Roosevelt Mcgee MA - 10/07/2024 9:24 AM EST Requester: Patient Patients last Endocrinology visit occurred 09/08/2024 w/ Brayan Dave CNP. Follow-up evaluation has been established Upcoming Endocrinology Appointments - Next 365 Days Visit Type Date Time Department NEW [facility] SURG 11/08/2024 1:00 PM ENDO [facility] EP EDU NON [facility] 11/10/2024 1:00 PM ENDO [facility] EST [facility]NA PATIENT 12/09/2024 1:30 PM ENDO [facility] MD . Requested Prescriptions Pending Prescriptions Disp Refills dulaglutide (TRULICITY) 0.75 mg/0.5 mL pen injector 2 mL 0 Sig: Inject 0.75 mg subcutaneously one time a week. If patient is due for an appointment please route to provider for refill consideration and also to the endo scheduling pool. PSS NOTE: Patient needs scheduled appointment No documented in this encounterUniversity Hospitals Ahuja Medical Center01-15-2025 History of Present illness Narrative* Maria Luisa Huber, GUTIERREZ - 10/05/2024 2:00 PM EST [facility] Medical Nutrition Therapy Visit Type: Virtual: I have discussed the nature of this visit with the patient which will occur via [employer] (Phone, Virtual Visit) and she agrees to proceed with this interaction . I have communicated my name and active licensure. The patient's identity and physical location wereverified at the time of this visit. Either the patient or their legal solar sales representative and assessor has been informed of the risks and benefits of -- and alternatives to -- treatment through a remote evaluation andconsents to proceed with the evaluation remotely. Patient [...] lot of diet changes since starting medication (pre- portioned snacks, healthier food choices etc.); wants to improve overall lifestyle -states she is currently IF and wants to continue this (eats between 12/noon-8 pm) -Dx: spina bifida but states she can walk -she lives with fiance, 2 kids; currently on disability Medications: Current [...] oriented Motivation to learn: Interested Family support: Tamiko, in background during visit Instruction provided to: [...] sample carb controlled meal plan --emphasized lifestyle pipe changer dieting mindset Education Materials: Thriving with [...] scheduling number provided. Referred by: Brayan Dave APRN.ORACLE WEBCENTER CONSULTANT Consult Billing Type/Increments: Initial Assessment/15 minutes, 2 increment(s), 30 minutes Start time: 2:02 PM End time: 2:34 PM My final report will be communicated back to the requesting physician by way of shared medical record. Signed by: Maria Luisa Huber M.S., MAR, MATT documented in this encounterUniversity Hospitals Ahuja Medical Center01-15-2025 NoteHNO ID: [id number] Author: MARIA LUISA HUBER RD Service: ? Author Type: Registered Dietitian Type: Progress Notes Filed: 10/05/2024 14:50 Note Text: [facility] Medical Nutrition Therapy Visit Type: Virtual: I have discussed the nature of this visit with the patient which will occur via Distance Health (Phone, Virtual Visit) and she agrees to proceed with this interaction . I have communicated my name and active licensure. The patient's identity and physical location were verified at the time of this visit. Either the patient or their legal solar sales representative and assessor has been informed of the risks and [...] states she can walk -she lives with fiance, 2 kids; currently on disability Medications: Current [...] 126.9 kg (279 l (more content not included)...[facility]12-23-2024 Telephone encounter Note* Telephone Encounter - Tracie Williamson, GOLD LEAF GILDER.ORACLE WEBCENTER CONSULTANT - 09/12/2024 1:12 PM EST No appt upcoming with pcp, will defer [...] for 56 days. Authorizing Provider: TRACIE WILLIAMSON APRN.CNP [facility]12-23-2024 Miscellaneous Notes* Telephone Encounter - Tracie Williamson APRN.CNP - 09/12/2024 1:12 PM EST No appt upcoming with pcp, will defer [...] for 56 days. Authorizing Provider: TRACIE WILLIAMSON APRN.CNP * Telephone Encounter - Shante Montgomery MA - 09/12/2024 12:31 PM EST Received request for refill of the following [...] Upcoming appointment scheduled: none. documented in this encounterUniversity Hospitals Ahuja Medical Center12-23-2024 Telephone encounter Note * Telephone Encounter - Katie Fernando - 09/12/2024 12:49 PM EST Spoke with pt advised an appt needed, she stated she will call or make an appt inline [facility]12-23-2024 Miscellaneous Notes* Telephone Encounter - Katie Fernando - 09/12/2024 12:49 PM EST Spoke with pt advised an appt needed, she stated she will call or make an appt inline documented in this encounterUniversity Hospitals Ahuja Medical Center12-23-2024 Telephone encounter Note * Telephone Encounter - Shante Montgomery MA - 09/12/2024 12:31 PM EST Received request for refill of the following [...] PCP team/provider: 08/31/24. Upcoming appointment scheduled: none. [facility]12-19-2024 Instructions* Patient Instructions* Brayan Dave APRN.CNP - 09/08/2024 2:20 PM EST Start Trulicity 0.75 mg weekly for 4 weeks, then increase to 1.5 mg weekly. -Possible side effects of this class of medications: nausea, reflux, constipation, redness/irritation at the injection site. If you experience nausea or reflux, eating smaller meals can be helpful. -Acute pancreatitis is a rare side effect, presents with severe abdominal pain, nausea/vomiting--goto ER if you experience these side effects. -For more information on the medication, including instructions on how to administer the medication, visit [email or web address] General recommendations: - Weight loss medications are [...] of weight management. We recommend 7-8 hours ofsleep nightly and routine sleep schedules when possible. - For females of child-bearing age: it is not recommended to become while taking medications for weight loss. Please contact our office if you become . Follow-up with Third Steel Pourer Follow-up with Granite Installer Follow-up with me in 3 months documented in this encounterUniversity Hospitals Ahuja Medical Center12-19-2024 NoteHNO ID: [id number] Author: BRAYAN DAVE APRN.[place]URA Service: ? Author [...] L: none D at 1500: hamburger with cayman islander and mushroom, 1 cup rally's fries Sn: [...] no Phentermine: no Topiramate: took previously for SUTTON (didn't take regularly) GLP-1: no Metformin: no [...] no LAD, no thyrom (more content not included)...[facility]12-19-2024 History of Present illness Narrative* Brayan Dave, ALEE.ORACLE WEBCENTER CONSULTANT - 09/08/2024 1:56 PM EST Images from the original note were not [...] regarding weight management and my final recommendations willbe communicated back to the requesting physician by [...] L: none D at 1500: hamburger with cayman islander and mushroom, 1 cup rally's fries Sn: [...] no Phentermine: no Topiramate: took previously for SUTTON (didn't take regularly) GLP-1: no Metformin: no [...] Morbid Obesity With Bmi of 40.0-44.9, Adult ([facility]) History of Urinary Self-Catheterization Monocular Exotropia With [...] management and its comorbidities. Patient has a BMIof 42.86 that is consistent with OBESITY CLASS [...] day, highly-processed, high-calorie -- Will refer to [facility] dietitian to discuss nutrition and identify [...] side effects of the prescribed medications. Patient hasno history of pancreatitis and no personal or [...] a personalized exercise program. Will refer to [facility] side panel padder. -- Recommend gradual increase in exercise. Goal is 150 minutes moderate- intensity exercise per week+ strength training/resistance exercise 2 days per week. [...] 1x/week, food journals / trackers (Food log, MySteek SAness Pal), activity journals / trackers (C-Vibes watch, [employer], Garmin vivofit, Striiv). Orders placed: Orders Placed This Encounter HEMOGLOBIN A1C (POC) ENDOCRINOLOGY DIETITIAN VISIT (MNT) Standing Status: Future Standing Expiration Date: 09/08/2025 Scheduling Instructions: Appointment type requested: General nutrition education (ie: celiac disease, PCOS, Low fat, Other) and Mediterranean - low carb This order is valid for 12 months from the date of order. PLEASE SCHEDULE THIS VISIT IN YOUR Dympol ACCOUNT, OR CALL TO SCHEDULE FOLLOWS: [facility] [phone] [facility] OTHER [facility] [phone] Order Specific Question: Does consulting provider have [...] which included preparing to see the patient, [id number] patient care, completing clinical documentation, obtaining and/or reviewing separately obtained history, performing a medically appropriate examination, counseling and educating the pat ient/family/caregiver, and ordering medications, tests, or procedures. Brayan Dave APRN.[place] Obesity Medicine Endocrinology and Metabolism [place] [facility] documented in this encounterUniversity Hospitals Ahuja Medical Center12-11-2024 NoteHNO ID: [id number] Author: AIDAN MNOTENEGRO MD Service: ? Author Type: Physician Type: [...] # Dispenser Refill Daily Dose* Pymt Type FRONT END DEVELOPER 07/04/2024 07/04/2024 1 Tramadol Hcl 50 Mg Tablet 84.[address] [id number] [place] ([id number]) 0 30.00 E [place] 07/04/2024 07/04/2024 1 Pregabalin 75 Mg Capsule 84.[address] [id number] [place] ([id number]) 0 1.51 LME [place] Review of [...] female - Neurogenic blad (more content not included)...[facility] 08-10-2024 Telephone encounter Note* Telephone Encounter - Kaylene Daley PA- C - 08/10/2024 12:48 PM EST Referred to an affiliated practice that is known to prescribe. Called ptAnabel Maurice [facility]11-20-2024 Miscellaneous Notes* Telephone Encounter - Kaylene Daley PA-C - 08/10/2024 12:48 PM EST Referred to an affiliated practice that is known to prescribe. Called ptAnabel Maurice documented in this encounterUniversity Hospitals Ahuja Medical Center11-20-2024 Telephone encounter Note * Telephone Encounter - Radha Harvey MA - 08/10/2024 10:53 AM EST Patient was advised of the following: This is a follow up phone call regarding your appointment with Dr Velazquez, which you are scheduled to see at [facility] on 08/10/2024 . 1) Have you been [...] need to reschedule please call us at [phone]. Left VM with new patient policy advised to call office with any questions or concerns Radha Harvey MA [facility]11-20-2024 Miscellaneous Notes* Telephone Encounter - Radha Harvey MA - 08/10/2024 10:53 AM EST Patient was advised of the following: This is a follow up phone call regarding your appointment with Dr Velazquez, which you are scheduled to see at [facility] on 08/10/2024 . 1) Have you been [...] need to reschedule please call us at [phone]. Left VM with new patient policy advised to call office with any questions or concerns Radha Harvey MA documented in this encounterUniversity Hospitals Ahuja Medical Center11-13-2024 NotePatient Outreach (INTMMN) KARLENE TOM ([id number]) 1980 F Date Time Provider Department 08/03/24 AIDAN MONTENEGRO INTBECKY During your visit today, we recorded the following information about you: Allergies As of Date: 08/03/2024 Noted Allergy Reaction AMOXICILLIN 06/17/2024 4 - Hives LATEX 11/15/2007 10 - Anaphylaxis CIPROFLOXACIN 05/18/2023 4 - Hives 9 - Itching MORPHINE 05/26/2017 8 - GI Upset NEOSPORIN ([id number]*10/07/2011 2 - Rash SILVER SULFADIAZINE 01/18/2024 14 - Other: See Comments ZINC OXIDE 10/07/2011 2 - Rash Date Reviewed: 08/01/2024 Reviewed by: Aidan Montenegro MD - Fully Assessed Visit Diagnosis:Encounter for screening mammogram for breast cancer [Z12.31] Order(s):[facility] SCREEN[facility] [2419442] Order #: [id number] FUTURE Prescriptions as of 08/08/2024 - cyclobenzaprine [...] thyroid nodules [E04.2] 04/08/2024 Encounter Status:Closed by GARRISON, PRODUSER on 08/08/24[facility] 08-01[facility]2024 NoteHNO ID: [id number] Author: AIDAN MONTENEGRO MD Service: ? Author [...] # Dispenser Refill Daily Dose* Pymt Type FRONT END DEVELOPER 07/04/2024 07/04/2024 1 Tramadol Hcl 50 Mg Tablet 84.[address] [id number] [place] ([id number]) 0 30.00 [place] 07/04/2024 07/04/2024 1 Pregabalin 75 Mg Capsule 84.[address] [id number] [place] ([id number]) 0 1.51 [place] [...] kg (274 lb 5.8 oz) Orthostatic BP: 12824 125/88 126/86 BP Position: Supine Sitting Standing [...] appointment 01/19/24 - N (more content not included)...[facility]11-11-2024 History of Present illness Narrative* Aidan Montenegro MD - 08/01/2024 4:11 PM EST Karlene Tom is a 43 year old [...] # Dispenser Refill Daily Dose* Pymt Type FRONT END DEVELOPER 07/04/2024 07/04/2024 1 Tramadol Hcl 50 Mg Tablet 84.[address] [facility] [id number] [place] ([id number]) 0 30.00 [place] 07/04/2024 07/04/2024 1 Pregabalin 75 Mg Capsule 84.[address] [facility] [id number] [place] ([id number]) 0 1.51 [place] Review of [...] necessary for today's visit. documented in this encounterUniversity Hospitals Ahuja Medical Center10-18-2024 History of Present illness Narrative* Juhi Presley - 07/08/2024 3:55 PM EDT POPULATION HEALTH NAVIGATION OUTREACH Action/FYI scheduled Reason for Outreach Care Gap/HCC or Scheduling Wellness Visits Care Gaps due: N/A Patient Contacted: Spoke to patient/parent/or legal guardian Patient identified by name and : Yes Care Gap/HCC/Scheduling Wellness actions taken: Patient scheduled/pended orders: Specialty Appointment Navigation Signature: Juhi Boone July 08, 2024 3:55 PM documented in this encounterUniversity Hospitals Ahuja Medical Center10-15-2024 Telephone encounter Note * Telephone Encounter - Katie Zaldivar - 07/05/2024 1:08 PM EDT Called and spoke with patient. She has accepted a 2-3 weeks PCP follow up appt - V.V. with Dr. Boo on 07/22/2024 @ 8:40am to discuss RUQ pain/results. [facility]10-15-2024 Miscellaneous Notes* Telephone Encounter - Katie Zaldivar - 07/05/2024 1:08 PM EDT Called and spoke with patient. She has accepted a 2-3 weeks PCP follow up appt - V.V. with Dr. Boo on 07/22/2024 @ 8:40am to discuss RUQ pain/results. * Telephone Encounter - Alta Karimi RN - 07/04/2024 7:25 PM EDT Pt identified by name and Pt notified of below message and verbalizes understanding. PSS - Please assist with PCP 2-3 weeks Follow up RUQ Pain/Results * Telephone Encounter - Tracie Williamson APRN.CNP - 07/04/2024 6:59 PM EDT Notify patient that her ultrasound results did [...] 2 to 3 weeks. documented in this encounterUniversity Hospitals Ahuja Medical Center10-14-2024 Telephone encounter Note * Telephone Encounter - Alta Karimi RN - 07/04/2024 7:25 PM EDT Pt identified by name and Pt notified of below message and verbalizes understanding. PSS - Please assist with PCP 2-3 weeks Follow up RUQ Pain/Results [facility]10-14-2024 Telephone encounter Note* Telephone Encounter - Tracie Williamson APRN.CNP - 07/04/2024 6:59 PM EDT Notify patient that her ultrasound results did [...] in the next 2 to 3 weeks. [facility]10-14-2024 Telephone encounter Note* Telephone Encounter - Ashleigh Blackwell MA - 07/04/2024 1:09 PM EDT Received request for refill of the following [...] 06.23.24. Upcoming appointment scheduled: No Upcoming OV. [facility]10-14-2024 Miscellaneous Notes* Telephone Encounter - Ashleigh Blackwell MA - 07/04/2024 1:09 PM EDT Received request for refill of the following [...] scheduled: No Upcoming OV. documented in this encounterUniversity Hospitals Ahuja Medical Center10-09-2024 History of Present illness Narrative* Claudy Karimi RDMS - 06/29/2024 7:30 AM EDT Radiology Service Progress Note PATIENT NAME: Karlene Tom DATE OF SERVICE: June 29, 2024 TIME: 8:17 AM PATIENT IDENTITY VERIFICATION COMPLETED USING TWO (2) IDENTIFIERS: Name and Date of confirmedby patient verbally and Name and Date of [...] PATIENT PRESENTS WITH AN IMPLANTABLE OR ATTACHED FOUNDER / CEO: No RADIOLOGY DEPARTMENT: Ultrasound PERIPHERAL IV DATA: Not applicable SIGNED BY: Claudy Karimi RDMS June 29, 2024 8:17 AM documented in this encounterUniversity Hospitals Ahuja Medical Center10-09-2024 NoteHNO ID: [id number] Author: CLAUDY KARIMI RDMS Service: ? Author [...] PATIENT PRESENTS WITH AN IMPLANTABLE OR ATTACHED FOUNDER / CEO: No RADIOLOGY DEPARTMENT: Ultrasound PERIPHERAL IV DATA: Not applicable SIGNED BY: Claudy Karimi RDMS June 29, 2024 8:17 AMSalt [facility] Medical [id number] History of Present illness Narrative* Aidan Montenegro MD - 06/23/2024 1:00 PM EDT Karlene Tom is a 43 year old female Chief complaint: Refill Request, Back Pain (Mid back), Nausea, Abdominal Pain, and Diarrhea (X1 week. ) Subjective HPI: Update since last visit: Approved for social security. C/o RUQ pain radiated to back for past 2 week, daily, worsen with meals, last 1- 2 hours, improves by avoiding food, treated with ibuprofen with improvement. Also with nausea. Also bloating, constipation earlier in the month treated with laxative, and diarrhea for past week. No blood in stool. Evaluated in [facility], 4 days ago, reports had a CAT [...] and diarrhea for past week. Evaluated in [facility], 4 days ago, reports had a CAT [...] necessary for today's visit. documented in this encounterUniversity Hospitals Ahuja Medical Center09-05-2024 History of Present illness Narrative* Elda Danielson MD - 05/26/2024 3:17 PM EDT ASSESSMENT/PLAN: 1. Monocular exotropia with other noncomitancies, left eye - ICD9: 378.14, ICD10: H50.142 (primary diagnosis) - s/p surgery around 30 years ago in [facility] with Dr. Vel Gómez (both eyes). [...] and plan as stated above and agree withall of its relevant components. Elda Danielson MD May 26, 2024 3:17 PM documented in this encounterUniversity Hospitals Ahuja Medical Center08-29-2024 History of Present illness Narrative* Ileana Agrawal PA-C - 05/19/2024 2:00 PM EDT Images from the original note were not included. [facility] Pain Recovery Neurological [place] May 19, 2024 SUBJECTIVE: Karlene Tom presents [...] pain. till having left sided back pain andleft posterior thigh and anterior vo pain. States [...] population = 50. Five points is a clinicallymeaningful difference.) Physical T-Score 23.5 29.6 29.6 29.6 [...] which included preparing to see the patient, [id number] patient care, completing clinical documentation, obtaining and/or reviewing separately obtained history, performing a medically appropriate examination, counseling and educating the pat ient/family/caregiver, and ordering medications, tests, or procedures. Ileana Agrawal PA-C Important Patient Information: 1. To schedule Pain Recovery appointments or post-injection office visits, please call: [phone] 2. The nursing staff and medical assistants are a part of your pain recovery team and will be handling your phone calls and inquiries. 3. Your study results and treatment plan will be discussed during a follow-up appointment. If you do not have a follow-up appointment and wish to discuss any issues directly with me, please call: [phone] to set-up an appointment. 4. MyChart is best used for refill requests or yes or no questions. Anything more complicated will likely require a follow-up appointment that you can schedule by [phone]. 5. It is the practice of the [...] is no need to contact our department regardingthe scheduling process or your estimated wait; you will be contacted once there is an opening. documented in this encounterUniversity Hospitals Ahuja Medical Center08-14-2024 History of Present illness Narrative* Elda Danielson MD - 05/04/2024 11:46 AM EDT ASSESSMENT/PLAN: 1. Monocular exotropia with other noncomitancies, left eye - ICD9: 378.14, ICD10: H50.142 (primary diagnosis) - s/p surgery around 30 years ago in [facility] with Dr. Vel Gómez (both eyes). [...] and plan as stated above and agree withall of its relevant components. Elda Danielson MD May 04, 2024 11:46 AM documented in this encounterUniversity Hospitals Ahuja Medical Center08-12-2024 Telephone encounter Note * Telephone Encounter - Aidan Montenegro MD - 05/02/2024 11:03 AM EDT Request for controlled medication. PMDP checked. No signs of concerns. Refill sent. Lab Results Component Value Date UOPI Negative 06/11/2017 UOXYC Positive (A) 06/11/2017 UBENZ Positive (A) 06/11/2017 UCOC2 Negative 06/11/2017 UAMPH Negative 06/11/2017 UETOH <11 06/11/2017 ] [facility]08-12-2024 Miscellaneous Notes* Telephone Encounter - Aidan Montenegro MD - 05/02/2024 11:03 AM EDT Request for controlled medication. PMDP checked. No signs of concerns. Refill sent. Lab Results Component Value Date UOPI Negative 06/11/2017 UOXYC Positive (A) 06/11/2017 UBENZ Positive (A) 06/11/2017 UCOC2 Negative 06/11/2017 UAMPH Negative 06/11/2017 UETOH <11 06/11/2017 ] * Telephone Encounter - Stacy Westbrook MA - 05/02/2024 10:52 AM EDT Patient phones requesting refills as follows: Last [...] advise. Stacy Westbrook MA documented in this encounterUniversity Hospitals Ahuja Medical Center08-12-2024 Telephone encounter Note * Telephone Encounter - Stacy Westbrook MA - 05/02/2024 10:52 AM EDT Patient phones requesting refills as follows: Last [...] Please review and advise. Stacy Westbrook MA [facility]08-07-2024 Telephone encounter Note* Telephone Encounter - Antoine Elva - 04/27/2024 9:31 AM EDT AM spoke w/patient @ 9:31 & she stated that her pharmacy hasn't received her RX's for the Tobramycin & Erythromycin. Please send to [facility] in [facility] thanks PT [phone] [facility]08-07-2024 Miscellaneous Notes* Telephone Encounter - Elva Schultz - 04/27/2024 9:31 AM EDT AM spoke w/patient @ 9:31 & she stated that her pharmacy hasn't received her RX's for the Tobramycin & Erythromycin. Please send to [facility] in [facility] thanks PT ph [phone] documented in this encounterUniversity Hospitals Ahuja Medical Center08-05-2024 Telephone encounter Note * Telephone Encounter - Catherine Oviedo RN - 04/25/2024 10:05 AM EDT Appeal letter created - after signature will be faxed to [phone]. Catherine Oviedo RN [facility]08-05-2024 Miscellaneous Notes* Telephone Encounter - Catherine Ovideo RN - 04/25/2024 10:05 AM EDT Appeal letter created - after signature will be faxed to [phone]. Catherine Oviedo RN documented in this encounterUniversity Hospitals Ahuja Medical Center07-26-2024 History of Present illness Narrative* Charlotte Reyes LSW - 04/15/2024 10:31 AM EDT SOCIAL WORK NOTE: Date of service: 04/15/2024 TOPICS ADDRESSED: PHQ-9 survey Pt scored a positive 9 on the PHQ-9 Survey. SAURAV completed a chart review and notes that pt met with psychology within a 24 hour time frame of completing the survey. SW did not reach out to pt to complete a distress assessment due to pt seeing psychology within thesame day of complete survey. MARIANA Rapp documented in this encounterUniversity Hospitals Ahuja Medical Center07-19-2024 History and physical note * Salud Francis PA-C - 04/08/2024 11:00 AM EDT Images from the original note [...] sees neurology, Kaylene Daley PA-C, last visit 4/30/24. Has topiramate (Topamax) for headaches as needed, [...] last visit 03/31/24 and ENT, Dr. Jayden Kramer, last visit 04/05/24. In the process of [...] for Thyroid Function tests in . Thyroid, 2019:29:3:412-420.Eamon E, et al. 2017 Guidelines of the [place] Thyroid Association for the Diagnosis and Management [...] flexeril as needed. Spine following, Norma Lyman, ORACLE WEBCENTER CONSULTANT. hronic and stable. Jones Activity Status Index: [...] no. Thick neck: no Hicks present: no Microretrognathia/Micronagthia/Recessed Chin: No DENTAL Dental findings: teeth intact. [...] Asthma, COPD, Dyspnea, Home O2, Pneumonia within 6weeks (date), URI < 2 weeks, Wheezing Negative for cough, wheezing or shortness of breath. Negative for hemoptysis. Negative for sleep apnea. Cardiovascular: No history of HTN requiring medication, no history of angina, CHF, LA, cardiac surgery or stents. Denies rest pain, [...] self-caths, recently treated for UTI Negative for dysuria,frequency, and hematuria Endocrine: +thyroid nodules- current being worked up Denies any history of other endocrine symptoms/problems. Hematology: No history of bleeding or clotting disorder. Pt is not taking anti- coagulation or platelet medications. No history of hematological [...] Covid Immunization Dates Postponed - Covid-19 Vaccine (2022-24 season) Postponed until 01/05/2025 01/06/2024 Postponed until [...] Karlene Tom DATE: 04/08/2024 TIME: 11:54 AM [facility]07-19-2024 History and physical note* Salud Francis PA-C - 04/08/2024 11:00 AM EDT Images from the original note were not included. [place] [facility] HISTORY AND PHYSICAL [...] last visit 03/31/24 and ENT, Dr. Jayden Kramer, last visit 04/05/24. In the process of [...] for Thyroid Function tests in . Thyroid, 2019:29:3:[id number].Eamon Taylor, et al. 2017 Guidelines of the [place] Thyroid Association for the Diagnosis and Management [...] flexeril as needed. Spine following, Norma Lyman, ORACLE WEBCENTER CONSULTANT. hronic and stable. Jones Activity Status Index: [...] no. Thick neck: no Hicks present: no Microretrognathia/Micronagthia/Recessed Chin: No DENTAL Dental findings: teeth intact. [...] Asthma, COPD, Dyspnea, Home O2, Pneumonia within 6weeks (date), URI < 2 weeks, Wheezing Negative for cough, wheezing or shortness of breath. Negative for hemoptysis. Negative for sleep apnea. Cardiovascular: No history of HTN requiring medication, no history of angina, CHF, LA, cardiac surgery or stents. Denies rest pain, [...] self-caths, recently treated for UTI Negative for dysuria,frequency, and hematuria Endocrine: +thyroid nodules- current being worked up Denies any history of other endocrine symptoms/problems. Hematology: No history of bleeding or clotting disorder. Pt is not taking anti- coagulation or platelet medications. No history of hematological [...] 01/06/2024 Postponed until 01/05/2025 by Tracie Williamson APRN.[employer]ACLE WEBCENTER CONSULTANT (Declined at this time) PAST MEDICAL HISTORY [...] 04/08/2024 TIME: 11:54 AM documented in this encounterUniversity Hospitals [facility]07-19-2024 Telephone encounter Note * Telephone Encounter - Maya Lewis MA - 04/08/2024 9:03 AM EDT Left detailed message on identified voice mail. Gave results and phone number to schedule with endocrine surgery as noted by provider. Maya Lewis MA [facility]07-19-2024 Miscellaneous Notes* Telephone Encounter - Maya Lewis MA - 04/08/2024 9:03 AM EDT Left detailed message on identified voice mail. Gave results and phone number to schedule with endocrine surgery as noted by provider. Maya Lewis MA * Telephone Encounter - Jailene Dave MD - 04/07/2024 5:34 PM EDT Please call and tell the patient that [...] am here to answer/clarify. Thank you, SRB * Telephone Encounter - Jaylyn Newman - 04/05/2024 12:46 PM EDT Patient is asking for a return call with biopsy results documented in this encounterUniversity Hospitals Ahu[facility] Center07-18-2024 Telephone encounter Note * Telephone Encounter - Jailene Dave MD - 04/07/2024 5:34 PM EDT Please call and tell the patient that [...] am here to answer/clarify. Thank you, SRB [facility]07-18-2024 Instructions* Patient Instructions* Salud Francis PA-C - 04/07/2024 10:05 AM EDT Images from the original note were not included. [facility] PATIENT PREOPERATIVE INSTRUCTIONS Elda Danielson MD has scheduled you for your procedure at this surgery center: [facility] [place] Scheduling Office: [phone] --[address] [place] [address]. Arrival Time for Surgery: - To obtain your arrival time for surgery, call your physician's office the day before your surgery. - If your surgery is scheduled for Thursday, call the Thursday before. Your surgeon s material scheduler will tell you what time to call the office. - If you have not reached the departmental material scheduler by 5 P.M., call [phone] after 5 P.M. the day before your [...] Procedures: - YOU MUST HAVE A RESPONSIBLE CAPSULE FILLER TAKE YOU HOME. A SAFETY CLOTHING AND EQUIPMENT DEVELOPER OR HI TEACHER CANNOT BE MADE A RESPONSIBLE CAPSULE FILLER. - We recommend that a responsible person stays with you overnight to take care of you. - You cannot stay in a hotel alone after outpatient surgery. You will not be permitted to have yoursurgery, if you do not have someone to take care of you. If you already have an Advance Directive, please fax a copy to [phone] or email to for it to be added to your chart. If you do not have an Advance Directive, you can find the appropriate form and more information at [email or web address]. We recommend that youcomplete the Advance Directive form found on the website and bring it with you the day of your surgery. It can be witnessed and scanned into your chart that day. Salud Francis PA-C documented in this encounterUniversity Hospitals Ahuja [facility] Center07-16-2024 History of Present illness Narrative* Jayden Kramer MD - 04/05/2024 4:19 PM EDT OTOLARYNGOLOGY-HEAD AND NECK SURGERY CC: Karlene Tom [...] ct scan neck to sort out Jayden Kramer MD 2. Airway compromise ct scan to [...] three times a day. (Patient not taking: Reportedon 04/05/2024) omeprazole (PRILOSEC) 20 mg capsule Take [...] SKIN: Negative for lesions, rash, and itching. HEMATOLOGIC/LYMPHATIC/IMMUNOLOGIC: Negative for prolonged bleeding, bruising easily or swollen nodes. ENDOCRINE: Negative for cold or heat intolerance, polyuria, polydipsia and goiter. PHYSICAL EXAM: On physical examination Karlene oTm is a well-developed, well nourished female. Her speech is wnl and her voice is wnl. Mental status revealed patient to be alert and oriented. Mood is appropriate. Details of the physical examination: HEAD AND FACE: Physical examination of the head, neck, external nose, external ears, mouth and facefails to demonstrate any significant abnormality or asymmetry to critical face to face observation.Skin and scalp are normal. EARS: RT Canal: [...] complications. The procedure was performed by Dr. Kramer. Jayden Kramer MD NECK: The neck appears symmetric without scars. On palpation, there are no masses or lymphadenopathy. The thyroid is not palpable and was free of masses. No salivary gland masses or hypertrophy is noted. REVIEW OF RADIOLOGICAL FILMS AND RECORDS: Wnl Jayden Kramer MD documented in this encounterUniversity Hospitals Ahu[facility] Center07-16-2024 Telephone encounter Note * Telephone Encounter - Jaylyn Newman - 04/05/2024 12:46 PM EDT Patient is asking for a return call with biopsy results [facility]07-11-2024 Instructions* Patient Instructions* Jailene Dave MD - 03/31/2024 3:55 PM [...] office for an update. documented in this encounterUniversity Hospitals Ahuja [facility] Center07-11-2024 History of Present illness Narrative* Jailene Dave MD - 03/31/2024 2:59 PM EDT Fine Needle Aspiration(FNA) Biopsy of thyroid nodule Karlene Tom was identified by name and date, acknowledges here to have a Fine Needle Aspiration(FNA) of bilateral thyroid nodules performed. Risks, benefits and alternatives D/W patient by ne Time/Date: March 31, 2024 2:59 PM Referred by: Jailene Dave MD Primary Carpet Inspector Finished: Jailene Dave MD Blood thinners: no Discussed [...] results. Jailene Dave MD documented in this encounterUniversity Hospitals Ahuja [facility] Center07-09-2024 Miscellaneous Notes* Telephone Encounter - Aidan Montenegro MD - 03/29/2024 12:25 PM EDT Request for controlled medication pregaballin and tramadol. PMDP checked. No signs of concerns. Refill sent. * Telephone Encounter - Elizabeth Landrum MA - 03/29/2024 8:07 AM EDT Received request for refill of the following [...] 29, 2024 8:07 AM documented in this encounterUniversity Hospitals Ahu[facility] Center07-09-2024 Telephone encounter Note * Telephone Encounter - Aidan Montenegro MD - 03/29/2024 12:25 PM EDT Request for controlled medication pregaballin and tramadol. PMDP checked. No signs of concerns. Refill sent. [facility]07-[facility] Telephone encounter Note* Telephone Encounter - Elizabeth Landrum MA - 03/29/2024 8:07 AM EDT Received request for refill of the following [...] Landrum MA March 29, 2024 8:07 AM [facility]07-05-2024 Instructions* Patient Instructions* Jailene Dave MD - 03/25/2024 8:51 AM EDT Please schedule for FNA of thyroid nodules documented in this encounterUniversity Hospitals Ahuja [facility] Center07-05-2024 History of Present illness Narrative* Jailene Dave MD - 03/25/2024 8:13 AM EDT [facility] Initial Clinic Visit Note NAME: Karlene Tom PCP: Aidan Forrester MD Requesting Provider: Aidan Forrester [address] [id number] My final recommendations will be communicated back to the requesting physician by way of shared medical record or letter via US mail. Chief Complaint: Multiple Thyroid nodules HPI: Karlene Joel Tom is a 43 year old female was referred for evaluation of a thyroid nodules. History in brief, she was noted to have thyroid nodules on MRI cervical spine done for spina bifida. Further evaluation with thyroid US revealed multiple nodules with the dominant one being 5.5 cm inmaximum diameter. Patient reports her symptoms started 6 months ago, endorsed with multiple doctors and was told thather symptoms are unrelated to her thyroid Related symptoms: She reports dizziness, Nausea, hair loss, sleeping a lot She constantly clears her throat- choking on food In November 2023, she had coughing up of something looking like a tissue, she was scared if it was hertonsil- had sore throat prior to it and [...] points Echogenicity: Hypoechoic, 2 points (heterogeneous) Shape: Xxdch-hyff-fifm, 0 points Margin: Smooth, 0 points Echogenic [...] points Echogenicity: Hypoechoic, 2 points (heterogeneous) Shape: Jvnvq-wamd-[id number], 0 points Margin: Smooth, 0 points Echogenic [...] points Echogenicity: Hypoechoic, 2 points (heterogeneous) Shape: Oomzk-urqa-gngw, 0 points Margin: Smooth, 0 points Echogenic [...] points Echogenicity: Hypoechoic, 2 points (heterogeneous) Shape: Ijqvh-dsuv-omvm, 0 points Margin: Smooth, 0 points Echogenic [...] based on cytopathology results Jailene Dave MD [facility] Endocrinology and Metabolism [place] [facility] Medical Decision Making: Problems: Moderate: New problem with uncertain prognosis Data: Unique test result(s) reviewed: 3+ Independent interpretation of test from other physician/QHCP Risk: Moderate: Decision on minor surgery w/ risk factors Medical Decision Making Level: 4 - Moderate documented in this encounterUniversity Hospitals Ahuja Medical Center06-28-2024 History of Present illness Narrative* Janay Schultz, INEZ - 03/18/2024 12:09 PM EDT Patient here for day 5 of Ketamine [...] to self-ambulate to the lobby and to line haul driver for transportation. documented in this encounterUniversity Hospitals Ahuja Medical Center06-27-2024 History of Present illness Narrative* Rachel Lynn RN - 03/17/2024 12:21 PM EDT Patient here for day 4 of Ketamine infusion. Patient educated on medications to be administered. Confirmed NPO > 6 hours and has transportation home. Patient verbalized understanding and agreed toproceed with infusions. Monitor alarm limits are set and alarms are audible Ride in lobby Versed given for anxiety Patient with eyes closed throughout infusion. VS stable Zofran given during flush for nausea Pts infusion complete. Tolerated infusion well. Pt discharged to line haul driver in the lobby. documented in this encounterUniversity Hospitals Ahuja Medical Center06-26-2024 History of Present illness Narrative* Janay Schultz RN - 03/16/2024 12:15 PM EDT Patient here for day 3 of Ketamine [...] to self-ambulate to the lobby and to line haul driver for transportation. documented in this encounterUniversity Hospitals Ahuja Medical Center06-25-2024 History of Present illness Narrative* Janay Schultz RN - 03/15/2024 12:34 PM EDT Patient here for day 2 of Ketamine [...] applied. Patient able to self-ambulate to the [facility] and to line haul driver for transportation. documented in this encounterUniversity Hospitals Ahuja Medical Center06-24-2024 History of Present illness Narrative* Kimberly Briceno RN - 03/14/2024 12:33 PM EDT Patient here for day 1 of Ketamine infusion. Patient educated on medications to be administered. Confirmed NPO > 6 hours and has transportation home - waiting in [facility]. Patient verbalized understanding and agreed to proceed with infusions. Monitor alarm limits are set and alarms are audible. No SUTTON, mild NV, or no dizziness today. Pt rates pain 7/10 located in back and legs and describes itas aching/numbness/tingling. 1240 - ketamine infusion initiated 1240 - 8 mg Zofran given 1320 Pts infusion complete. Infusion tolerated but experienced side effects including - anxiety, nausea, & dizziness. All SE improved with time, 8 mg Zofran given for Nausea. Pt stated she did not like the experience - reported to this RN she did not like the loss of control . . On mailroom assistant during infusion pt was talkative and laughing with staff. Towards end of infusion pt stated she was feeling anxious - this RN offered emotional support and therapeutic communication,as well as education reinforcing potential side effects of ketamine discussed prior to infusion initiation. Discussed dose of PRN Versed for anxiety with remainder of infusions for the week - pt agreeable. [facility] [address] [facility]. Reinforced with pt need for line haul driver to be present in [address] lobby. documented in this encounterUniversity Hospitals Ahuja Medical Center06-21-2024 History of Present illness Narrative* Jeannie Chandler MD - 03/11/2024 2:33 PM EDT Ketamine orders placed. documented in this encounterUniversity Hospitals Ahuja Medical Center06-14-2024 History of Present illness Narrative* Kaylene Daley PA-C - 03/04/2024 10:15 AM EDT This note was created using Paper Hunter[employer]. Subjective Karlene Tom is a 43 year old female seen today via zoom in follow up for for tethered cord (spina bifida) and myelomeningocele with tethered cord, s/p cord detethering. Lipoma removed at with repair of the myelomeningocele. In 1994 she had another lipoma removed. 2016 she underwent L4-5laminectomies, intradural arachnoid dissection for untethering of the cord by Dr. Huber. She has a lot of back pain and leg pain since she has been a child. She was told that there was nothing theycould do about this. She was told she [...] much. She has neuropathy from the waist down.She feels constant burning in the legs. The [...] which included preparing to see the patient, skwb-tn-swjw patient care, completing clinical documentation, obtaining and/or reviewing separately obtained history, counseling and educating the patient/family/caregiver, ordering medications, shelley ts, or procedures, communicating with other HCPs (not separately reported), independently interpreting results (not separately reported), communicating results to the patient/family/caregiver, and care coordination (not separately reported). This virtual visit was conducted via [employer] which is a HIPAA compliant video platform. I received consent from the patient to perform the visit using this platform. The visit required patient-provider interaction for the medical decision making as documented herein. I have communicated my name and active licensure. The patient's identity and physical location wereverified at the time of this visit. Either the patient or their legal solar sales representative and assessor has been informed of the risks and benefits of -- and alternatives to -- treatment through a remote evaluation andconsents to proceed with the evaluation remotely. documented in this encounterUniversity Hospitals Ahuja [facility] Center06-13-2024 History of Present illness Narrative* Ileana Agrawal PA-C - 03/03/2024 1:00 PM EDT [facility] Neurological [place] March 03, 2024 Karlene Tom is a 43 year old single female, applying for disability, who lives with significant other, a daughter, and a son in [place], [place]. She was referred by Norma Lyman [address] [address]. Consultation requested by Shubham Lyman for an opinion regarding . Karlene Tom, and my final recommendations will be communicated back to the requesting physician by way of shared medical recordor letter via US mail. PDMP website checked and validated. All prescriptions have been APPROPRIATELY filled. No suspiciousactivity was identified. 03/02/2024 by Ileana Agrawal PA-C Chief complaint: low back pain [...] leaked spinal fluid and it was c/b aninfection. Reports that she fractured her legs in [...] denies CHF: denies Uncontrolled HTN: denies Recent LA: denies Arrythmias: denies Afib: denies Hyperthyroid: denies [...] 5 cig/day and does wish to quit. @[email or web address] describes current alcohol consumption as 3x year [...] we can add them to the wait list.Encouraged the patient to seek ketamine treatment at [...] Review, Ask, Review: yes Follow-up: as needed Ileana Agrawal PA-C I spent a total of 50 minutes on the date of the service which included preparing to see the patient, leox-he-tgto patient care, completing clinical documentation, obtaining and/or reviewing separately obtained history, performing a medically appropriate examination, counseling and educating the pat ient/family/caregiver, and ordering medications, tests, or procedures. Important Patient Information: 1. To schedule Pain Recovery appointments or post-injection office visits, please call: [phone] 2. The nursing staff and medical assistants are an integral part of your pain recovery team and will be handling your phone calls and inquiries. 3. Your study results and treatment plan will be discussed during a follow-up appointment. If you do not have a follow-up appointment and wish to discuss any issues directly with me, please call: [phone] to set-up an appointment. 4. MyChart is best used for refill requests or yes or no questions. Anything more complicated will likely require a follow-up appointment that you can schedule by [phone]. 5. It is the practice of the [...] is no need to contact our department regardingthe scheduling process or your estimated wait; you will be contacted once there is an opening. documented in this encounterUniversity Hospitals Ahuja Medical Center06-03-2024 History of Present illness Narrative* Aidan Montenegro MD - 02/22/2024 2:20 PM EDT Karlene Tom is a 43 year old [...] and tramadol. Follow up neurology and neurosurgery. [facility] Medical Records reviewed. Medical records reviewed. Shon [...] necessary for today's visit. documented in this encounterUniversity Hospitals Ahuja Medical Center05-28-2024 Telephone encounter Note * Telephone Encounter - Maya Roblero MA - 02/16/2024 3:11 PM EDT Called patient, verified . Gave message below. Patient stated that she is not having stomach issues. She has nausea, not sleeping, hard time swallowing and raspy voice from the thyroid nodules. Patient does have an appointment with you on 02/22/2024. Routed to PCP. [facility]05-28-[facility]24 Miscellaneous Notes* Telephone Encounter - Maya Roblero MA - 02/16/2024 3:11 PM EDT Called patient, verified . Gave message below. Patient stated that she is not having stomach issues. She has nausea, not sleeping, hard time swallowing and raspy voice from the thyroid nodules. Patient does have an appointment with you on 02/22/2024. Routed to PCP. * Telephone Encounter - Aidan Montenegro MD - 02/12/2024 1:35 PM EDT Please instruct patient to use an over the counter medication for stomach problems like Peptobismolor antacid like Tums or Mylanta or similar. If no improvement patient should make an office visit to complete an evaluation and decide managmeent. * Telephone Encounter - Cari Olmstead MA - 02/12/2024 1:24 PM EDT Called and reviewed message with patient ,she stated that she has been very nauseated and coughing due to her thyroid , she is asking if Dr Boo would call in something for the nausea. * Telephone Encounter - Cari Olmstead MA - 02/12/2024 1:23 PM EDT Called and reviewed patient results, please assist patient in scheduling an OV with Endo Thank you. * Telephone Encounter - Aidan Montenegro MD - 02/12/2024 1:10 PM EDT Received notice abtopu actionable finding in US thryoid, patient with thyroid nodules. Please inform patient that is recommended to have referral to occupational therapy director to complete an evaluation and decide management. Referral placed. Instruct patient how to schedule appointment. Thanks. * Telephone Encounter - Aidan Montenegro MD - 02/12/2024 1:10 PM EDT ----- Message from Alexis Felix PA-C sent at 02/11/2024 1:28 PM EDT ----- Regarding: FNA Dr. Forrester, My name is Alexis Felix PA-C and I'm an Advanced Practice Provider in the Actionable Findings clinic [facility]. In my quality review, I see that this patient had thyroid nodules. FNA was recommended. Is that something you could help arrange or would you like us in our Actionable Findings departmentreach out to her for possible outreach? Alexis Felix PA-C February 11, 2024 1:28 PM documented in this encounterUniversity Hospitals Ahuja [facility] Center05-27-2024 Telephone encounter Note * Telephone Encounter - Kaylene Daley PA-C - 02/15/2024 6:25 PM EDT I sent her a my chart message as soon as this was reported. I asked her before the testing was doneto contact her PCP regarding this testing being done and she would need to contact them for the further recs. I sent her a message to this effect after the testing resulted again and sent a letter toher pcp. Consult signed [facility]-27-2024 Miscellaneous Notes* Telephone Encounter - Kaylene Daley PA-C - 02/15/2024 6:25 PM EDT I sent her a my chart message as soon as this was reported. I asked her before the testing was doneto contact her PCP regarding this testing being done and she would need to contact them for the further recs. I sent her a message to this effect after the testing resulted again and sent a letter toher pcp. Consult signed * Telephone Encounter - Christopher Alfonso RN - 02/12/2024 8:00 AM EDT Called patient via phone. Per pt, her [...] Kaylene KLINE and Dr. Huber for review. * Telephone Encounter - Naomi Long - 02/11/2024 2:07 PM EDT General Call Caller : Pt Contact Reason for Call : Pt had her US THYROID/PARATHYROID test done today. She would like to discuss her next steps as she was told she needs to have her thyroid biopsied. Patient requesting return call ? Yes documented in this encounterUniversity Hospitals Ahuja [facility] Center05-25-2024 Telephone encounter Note * Telephone Encounter - Aidan Montenegro MD - 02/13/2024 8:27 AM EDT [facility] Medical Records reviewed. Medical records reviewed. Shon Angel LAMINATION MACHINE OPERATOR, prescribing tramadol for spina bifida pain until evaluation with pain management. 04/07/23 UDS negative. 12/22/23 UDS positive THC, rest negative. 04/28/23 EMG of LE: normal. No evidence of LAMINATION MACHINE OPERATOR or radiculopathy. 05/2023 requested to have student loans deferred due to disability. 06/10/22 Colonoscopy biopsy: with small hyperplastic polyp, 07/31/21 Pap NIL, HPV neg. Problem list and medication list updated as appropriate. [facility]24 Miscellaneous Notes* Telephone Encounter - Aidan Montenegro MD - 02/13/2024 8:27 AM EDT [facility] Medical Records reviewed. Medical records reviewed. Shon Angel LAMINATION MACHINE OPERATOR, prescribing tramadol for spina bifida pain until evaluation with pain management. 04/07/23 UDS negative. 12/22/23 UDS positive THC, rest negative. 04/28/23 EMG of LE: normal. No evidence of LAMINATION MACHINE OPERATOR or radiculopathy. 05/2023 requested to have student loans deferred due to disability. 06/10/22 Colonoscopy biopsy: with small hyperplastic polyp, 07/31/21 Pap NIL, HPV neg. Problem list and medication list updated as appropriate. documented in this encounterUniversity Hospitals Ahuja Medical Center05-24-2024 Telephone encounter Note * Telephone Encounter - Aidan Montenegro MD - 02/12/2024 1:35 PM EDT Please instruct patient to use an over the counter medication for stomach problems like Peptobismolor antacid like Tums or Mylanta or similar. If no improvement patient should make an office visit to complete an evaluation and decide managmeent. [facility] Telephone encounter Note* Telephone Encounter - Cari Olmstead MA - 02/12/2024 1:24 PM EDT Called and reviewed message with patient ,she stated that she has been very nauseated and coughing due to her thyroid , she is asking if Dr Boo would call in something for the nausea. [facility] Telephone encounter Note* Telephone Encounter - Cari Olmstead MA - 02/12/2024 1:23 PM EDT Called and reviewed patient results, please assist patient in scheduling an OV with Endo Thank you. [facility]05-24-2024 Telephone encounter Note* Telephone Encounter - Aidan Montenegro MD - 02/12/2024 1:10 PM EDT Received notice abtopu actionable finding in US thryoid, patient with thyroid nodules. Please inform patient that is recommended to have referral to occupational therapy director to complete an evaluation and decide management. Referral placed. Instruct patient how to schedule appointment. Thanks. [facility]05-24-2024 Telephone encounter Note* Telephone Encounter - Aidan Montenegro MD - 02/12/2024 1:10 PM EDT ----- Message from Alexis Felix PA-C sent at 02/11/2024 1:28 PM EDT ----- Regarding: FNA Dr. Forrester, My name is Alexis Felix PA-C and I'm an Advanced Practice Provider in the Actionable Findings clinic here at the [facility]. In my quality review, I see that this patient had thyroid nodules. FNA was recommended. Is that something you could help arrange or would you like us in our Actionable Findings departmentreach out to her for possible outreach? Alexis Felix PA-C February 11, 2024 1:28 PM [facility]05-24-2024 Telephone encounter Note* Telephone Encounter - Christopher Alfonso RN - 02/12/2024 8:00 AM EDT Called patient via phone. Per pt, her [...] Kaylene KLINE and Dr. Huber for review. [facility]05-23-2024 Telephone encounter Note* Telephone Encounter - Sg Longette - 02/11/2024 2:07 PM EDT General Call Caller : Pt Contact Reason for Call : Pt had her US THYROID/PARATHYROID test done today. She would like to discuss her next steps as she was told she needs to have her thyroid biopsied. Patient requesting return call ? Yes [facility]05-20-2024 History of Present illness Narrative* Norma Pearson RDMS, RVT - 02/08/2024 12:00 PM EDT Radiology Service Progress Note PATIENT NAME: Karlene Tom DATE OF SERVICE: February 08, 2024 TIME: 12:23 PM PATIENT IDENTITY VERIFICATION COMPLETED USING TWO (2) IDENTIFIERS: Name and Date of confirmedby patient verbally and Name and Date of [...] PATIENT PRESENTS WITH AN IMPLANTABLE OR ATTACHED FOUNDER / CEO: No RADIOLOGY DEPARTMENT: Ultrasound PERIPHERAL IV DATA: Not applicable Thyroid US done SIGNED BY: Norma Pearson RDMS, RVT February 08, 2024 12:23 PM documented in this encounterUniversity Hospitals A[facility]05-20-2024 NoteHNO ID: [id number] Author: NORMA PEARSON RDMS, RVT Service: ? Author Type: Preparator Type: Progress Notes Filed: 02/08/2024 12:24 Note [...] PATIENT PRESENTS WITH AN IMPLANTABLE OR ATTACHED FOUNDER / CEO: No RADIOLOGY DEPARTMENT: Ultrasound PERIPHERAL IV DATA: Not applicable Thyroid US done SIGNED BY: Norma Pearson RDMS, RVCarlos February 08, 2024 12:23 [id number] History of Present illness Narrative* KATARZYNA Castorena - 02/08/2024 9:40 AM EDT Subjective Patient ID: Karlene Tom is a [...] Castorena 02/08/24 10:16 AM documented in this [facility] Work Phone: 1(593) 234-668405-06-2024 Note* Addendum Note - Aidan Montenegro MD - 01/25/2024 5:41 PM EDTAddended by: AIDAN MONTENEGRO on: 01/25/2024 05:41 PM Modules accepted: Orders [facility]05-06-2024 Miscellaneous Notes* Addendum Note - Aidan Montenegro MD - 01/25/2024 5:41 PM EDTAddended by: AIDAN MONTENEGRO on: 01/25/2024 05:41 PM Modules accepted: Orders documented in this encounterUniversity Hospitals Ahu[facility] Center05-06-2024 Instructions* Patient Instructions* Aidan Montenegro MD - 01/25/2024 2:44 PM EDT Request records of office visit with Silvina Cruz [address] [place] [address] - Shon Shammo [address] [place] [address] documented in this encounterUniversity Hospitals Ahu[facility] Center05-06-2024 History of Present illness Narrative* Aidan Montenegro MD - 01/25/2024 2:20 PM EDT Karlene Tom is a 43 year old [...] # Dispenser Refill Daily Dose* Pymt Type FRONT END DEVELOPER 12/22/2023 12/22/2023 1 Tramadol Hcl 50 Mg Tablet 90.00 30 Fa n [id number] Rit (7038) 0 30.00 MME Medicaid [place] 12/22/2023 12/22/2023 1 Pregabalin 75 Mg Capsule 90.00 30 Fa n [id number] Rit (7038) 0 1.51 LME Medicaid [place] 11/12/2023 11/12/2023 1 Pregabalin 75 Mg Capsule 90.00 30 Brionna [facility] [id number] Rit (7038) 0 1.51 LME Medicaid [place] Silvina [facility] [address] [place] [address] - Shon Shammo [address] [place] [address] Review of Systems Constitutional: Negative for fever [...] presence, unspecified spinal region (HCC) Tethered cord ([facility]) Urinary frequency - URINALYSIS, REFLEX MICROSCOPIC - URINE CULTURE Acute UTI - nitrofurantoin monohydrate and macrocrystal (MACROBID) 100 mg capsule; Take 1 capsule by mouth two times a day for 5 days. Other orders - UA DIP, URINE (POC) Return in about 4 weeks (around 02/22/2024) for INPERSON, chronic pain. . Aidan Forrester MD documented in this encounterUniversity Hospitals [facility]04-30-2024 NoteHNO ID: [id number] Author: YLNNETTE BROOKS RT(R) Service: ? Author Type: Technologist [...] PATIENT PRESENTS WITH AN IMPLANTABLE OR ATTACHED FOUNDER / CEO: No RADIOLOGY DEPARTMENT: General X-ray: Exam(s) Completed: Spine X-Ray(s): Lumbar AP / LAT / L5-S1 PERIPHERAL IV DATA: Not applicable SIGNED BY: RT Kayley(R) January 19, 2024 10:58 [facility]04-30-2024 History of Present illness Narrative* Lynnette Brooks RT(R) - 01/19/2024 5:40 PM EDT Radiology Service Progress Note PATIENT NAME: Karlene Tom DATE OF SERVICE: January 19, 2024 TIME: 10:58 AM PATIENT IDENTITY VERIFICATION COMPLETED USING TWO (2) IDENTIFIERS: Name and Date of confirmedby patient verbally and Name and Date of [...] PATIENT PRESENTS WITH AN IMPLANTABLE OR ATTACHED FOUNDER / CEO: No RADIOLOGY DEPARTMENT: General X-ray: Exam(s) Completed: Spine X-Ray(s): Lumbar AP / LAT / L5-S1 PERIPHERAL IV DATA: Not applicable SIGNED BY: RT Kayley(R) January 19, 2024 10:58 AM documented in this encounterUniversity Hospitals Ahu[facility] Center04-30-2024 Nurse Note* Pepe Weeks MA - 01/19/2024 12:58 PM EDT Additional intake questions: Has the patient had fever, nausea, vomiting, diarrhea, constipation, fatigue for > 1 week? No Does the patient have a decreased appetite? No Does patient want to see a Third Steel Pourer? No (yes to any of above refer patient to schedulers for dietitian appointment) ) Does patient have any new or increased numbness or tingling of extremities? No Is patient interested in fertility information? No Does patient need any prescription refills? No Does patient have an advanced directive in place? No, Patient referred to [facility]04-30-2024 Nurse Note* Pepe Weeks MA - 01/19/2024 12:58 PM EDT Additional intake questions: Has the patient had fever, nausea, vomiting, diarrhea, constipation, fatigue for > 1 week? No Does the patient have a decreased appetite? No Does patient want to see a Third Steel Pourer? No (yes to any of above refer patient to schedulers for dietitian appointment) ) Does patient have any new or increased numbness or tingling of extremities? No Is patient interested in fertility information? No Does patient need any prescription refills? No Does patient have an advanced directive in place? No, Patient referred to [facility] documented in this encounterUniversity Hospitals Ahu[facility] Center04-30-2024 History of Present illness Narrative* Kaylene Daley PA-C - 01/19/2024 12:50 PM EDT This note was created using Paper Hunterriter. Subjective Karlene Tom is a 43 year old female here to re-establish care for tethered cord (spina bifida) and myelomeningocele with tethered cord, s/p cord detethering. Lipoma removed at with repairof the myelomeningocele. In 1994 she had another [...] mid back pain. Filled out questionnaire for family law attorney. Form copied for scanning into chart. F/u uafter imaging. I spent a total of 50 minutes on the date of the service which included preparing to see the patient, oymj-uj-lqag patient care, completing clinical documentation, obtaining and/or reviewing separately obtained history, performing a medically appropriate examination, counseling and educating the pat ient/family/caregiver, ordering medications, tests, or procedures, communicating with other HCPs (not separately reported), independently interpreting results (not separately reported), communicatingresults to the patient/family/caregiver, and care coordination (not separately reported). documented in this encounterUniversity Hospitals Ahuja Medical Center04-29-2024 Note* Op Note - Dominick Lopes MD - 01/18/2024 10:31 AM EDT CYSTOSCOPY, WITH BOTULINUM TOXIN INJECTION 200 units Operative Note Date: 01/18/2024 OR Location: [facility] OR Name: Karlene Tom, : 1980, Age: 43 y.o., , Sex: female Diagnosis Pre-op Diagnosis * Urge incontinence [N39.41] Post-op Diagnosis * Urge incontinence [N39.41] Procedures CYSTOSCOPY, WITH BOTULINUM TOXIN INJECTION 200 units 43253 - DC CYSTOURETHROSCOPY INJ CHEMODENERVATION BLADDER Surgeons * Dominick Lopes - Primary Resident/Fellow/Other Administrative Liaison: Surgeons and Role: * No surgeons found with a matching role * Procedure Summary Anesthesia: General ASA: II Anesthesia Staff: Anesthesiologist: Gene Agrawal MD CROWN BUFFER: Maribel Esposito APRN-CROWN BUFFER Estimated Blood Loss: 0 mL Intra-op Medications: Administrations occurring from 1040 to 1200 on 01/18/24: * No intraprocedure medications in log * Anesthesia Record Intraprocedure I/O Totals Intake LR infusion 500.00 mL Total Intake 500 mL Output Est. Blood Loss 0 mL Total Output 0 mL Net Net Volume 500 mL Specimen: No specimens collected Staff: Medical Attendant: Tara Bourgeois RN Scrub Person: Liliana Solorio [...] solution was injected into the bladder muscle keo grid-like pattern under direct visualization. Visible blood [...] scrubbed for the entire procedure. Dominick Lopes [facility] Work Phone: 1(614) 775-814404-29-2024 Miscellaneous Notes* Op Note - Dominick Lopes MD - 01/18/2024 10:31 AM EDT CYSTOSCOPY, WITH BOTULINUM TOXIN INJECTION 200 units Operative Note Date: 01/18/2024 OR Location: [facility] OR Name: Karlene Tom, : 1980, Age: 43 y.o., , Sex: female Diagnosis Pre-op Diagnosis * Urge incontinence [N39.41] Post-op Diagnosis * Urge incontinence [N39.41] Procedures CYSTOSCOPY, WITH BOTULINUM TOXIN INJECTION 200 units 17042 - DC CYSTOURETHROSCOPY INJ CHEMODENERVATION BLADDER Surgeons * Dominick Lopes - Primary Resident/Fellow/Other Administrative Liaison: Surgeons and Role: * No surgeons found with a matching role * Procedure Summary Anesthesia: General ASA: II Anesthesia Staff: Anesthesiologist: Gene Agrawal MD CROWN BUFFER: Maribel Esposito APRN-CROWN BUFFER Estimated Blood Loss: 0 mL Intra-op Medications: Administrations occurring from 1040 to 1200 on 01/18/24: * No intraprocedure medications in log * Anesthesia Record Intraprocedure I/O Totals Intake LR infusion 500.00 mL Total Intake 500 mL Output Est. Blood Loss 0 mL Total Output 0 mL Net Net Volume 500 mL Specimen: No specimens collected Staff: Medical Attendant: Tara Bourgeois RN Scrub Person: Liliana Solorio [...] solution was injected into the bladder muscle keo grid-like pattern under direct visualization. Visible blood [...] entire procedure. Dominick Lopes documented in this [facility] Work Phone: 1(339) 273-968604-29-2024 Hospital Discharge instructions* Discharge Instructions* Naz Graves MD - 01/18/2024 9:56 AM EDT .Urogynecology Post Operative instructions Clinic number: [phone] Call your physicians office or go to [...] For example, you can take Tylenol at 9am,then ibuprofen at noon, then Tylenol again at 3 pm, etc. You were prescribed pyridium to be taken as needed for bladder spasms. Do not be alarmed if your urine appears orange. This is a common side effect of the medication. It is very important to keep all of your post operative clinic appointments. documented in this [facility] Work Phone: 1(986) 234-153004-25-2024 Instructions* Patient Instructions* Elda Danielson MD - 01/14/2024 2:13 PM EDT Information for strabismus surgery with Dr. Danielson Surgery Scheduling [facility] - First of each month (children 1 year old and older) and second Thursday of each month (14 years old and older). No major medical comorbidities (including sleep apnea, obesity (BMI greater than 40), and pacemaker). [facility] - First, Third, and Fifth (AM start) Thursday of each , and Fifth Thursday of . Surgery coordinator at [facility] and [facility] - Dinesh Mendoza [phone]. Please do not plan on any far-away travel within two weeks after surgery day. Pre-Op History and physical exam. All patients must have a pre-operative history and physical to clear them medically for surgery within 30 days of their surgery date. This can be completed by their primarycare physician or through the pre- anesthesia testing department. If their physician is outside of the [facility] system, then please bring a printed copy of their history and physical with on the day of their surgery. Schedule pre-anesthesia testing appointment. Call [phone]. Pre-op measurements. Sometimes we do a pre-op measurements visit with Dr. Danielson about a week prior to surgery. At this visit we can answer any questions that you have about the surgery and sign theconsent. If we do not do a pre-op visit, then we may sign the consent on the day of surgery. If youhave any questions prior to surgery, you can send a LinPrim message or you can call Dr. Danielson s office at [phone]. Children get sick a lot! If your [...] to general anesthesia. You must have someone driveyou. Arrival time. The surgery department will call [...] home/pick them up from school, etc. Location: [facility] - Surgery center is on 2nd floor Main campus - Surgery pre-op waiting areas is M23 Anesthesia. You will meet your anesthesiologist in the pre-op area and they can answer any questions that you have about anesthesia. To put children to sleep, an anesthesiologist will use a mask withgas (children can pick a flavor in pre- op) to get them asleep, and then they will insert an IV. Older children and adults get IVs in the pre-op area. Parents will not be allowed back in to the operating area and will wait in the waiting area for the doctor to come and debrief after the surgery. Eyemuscle surgery typically takes 30 minutes per muscle. [...] eyes will feel irritated, their agitation is usuallydue to the anesthesia more so than eye [...] recommend that you give take pain medication every3 hours around the clock (alternating between Tylenol and ibuprofen to avoid overdose) in order to p revent pain from getting significant. Wound management We do not typically put a patch on the operate eye(s). Keep area clean and dry. Two weeks of no swimming and no getting dirt/dust/sand/snow/water in eyes.For the most part, that means staying inside. When bathing try to limit water and soap from gettingin eyes. This may be easier by taking [...] drops in the eyes having surgery that lastabout 5 hours), photophobia (light sensitivity), foreign body sensation, and watering. The white part of the eyes will look bloodshot and swollen for up to 4 weeks. In general, younger people heal quicker than older people. The stitches may look like little black dots and dissolve by 6weeks. It is normal to have some double [...] be with patient at home for the firstweek to ensure proper care. I am happy [...] questions or to examine the patient at [facility], even at night and on the weekends. Dr. Danielson s office number is [phone]. documented in this encounterUniversity Hospitals [facility] Center04-25-2024 History of Present illness Narrative* Elda Danielson MD - 01/14/2024 1:42 PM EDT ASSESSMENT/PLAN: 1. Monocular exotropia with other noncomitancies, left eye - ICD9: 378.14, ICD10: H50.142 (primary diagnosis) - s/p surgery around 30 years ago in [facility] with Dr. Vel Gómez (both eyes). [...] after surgery, may need prisms or vertical strabismussurgery 3. Amblyopia, left eye - vision 20/30 [...] and plan as stated above and agree withall of its relevant components. Elda Danielson MD January 14, 2024 2:17 PM documented in this encounterUniversity Hospitals Ahuja [facility] Center04-17-2024 History of Present illness Narrative* Tracie Williamson, GOLD LEAF GILDER.ORACLE WEBCENTER CONSULTANT - 01/06/2024 11:25 AM EDT CC:establish care S: current primary care is in [facility], she lives in [place], [place]. Is looking to transfer care to [facility] for speciality and primary. PMH: CHronic low [...] She was [facility]. She lives with [...] BP Cuff Size: Large Adult) Pulse 85 Temp36.6 C (97.8 F) (Oral) Ht 170.2 cm [...] who she will be established with Dr. Booregarding management of her pain medications. (F17.200) Smoker [...] gain. Tracie Williamson APRN.[place] documented in this encounterUniversity Hospitals Ahuja Medical Center03-19-2024 Miscellaneous Notes* Telephone Encounter - Nasima Karimi APRN.CNP - 12/08/2023 9:28 AM EDT Images from the original note [...] of associated sacral lipoma Nasima York, MSN, GOLD LEAF GILDER, ORACLE WEBCENTER CONSULTANT Certified Nurse Practitioner documented in this encounterUniversity Hospitals Ahuja [facility] Center03-18-2024 History of Present illness Narrative* Norma Lyman APRN.CNP - 12/07/2023 2:45 PM EDT Images from the original note were [...] has undergone multiple surgeries for lumbar surgical repairincluding lumbar laminectomy and surgical repair for tethered cord. She reports that she did experience negative health outcomes after surgery stating that she almost during 2 of her previous surgeries. She was previously a patient of Dr. Huber and Kaylene Daley PA-C in the brain tumor department. She states that she has been under the care of advanced neurology in [facility]. She reports that her symptoms are worsening and she cannot perform ADLs. She also reports that she cannot function without her chronic pain medications Lyrica and tramadol. She states that she was told that althoughher symptoms are worsening she would from interventional [...] of changing all the doctors to the [facility] for better management of care. [...] Physicians: Dr. Sharma - PCP Shon Angel ORACLE WEBCENTER CONSULTANT - Neurology Dr. Mccray - Pain management - [facility] Dr. Mcclure and Kaylene Daley PA-C- Neurosurgery / Brain tumor - [...] to both legs more on R Description: Aching;Burning;Spasm;Stabbing;Throbbing Aching;Cramping;Spasm Duration Amount of Time: 24 -- Duration Units: Hours Years Frequency: Continuous Continuous Intervention/Comfort measure: Medication;Reposition;Relaxation;Massage -- Litigation: No Workers' Compensation: No YELLOW [...] (Hcc) Latex Allergy Care, Subsequent Tethered Cord ([facility]) Morbid Obesity ([facility]) History of Urinary Self-Catheterization Lumbar Surgical Wound Fluid Collection PAST MEDICAL HISTORY Diagnosis Date Abnormal Pap smear of cervix LEEP History of urinary self-catheterization 05/26/2017 ISC Morbid obesity ([facility]) depression Spina bifida ([facility]) PAST SURGICAL HISTORY Procedure Laterality Date COLPOSCOPY [...] [Neomycin* Rash Zinc Oxide Rash CURRENT MEDICATIONS: Yoffwjmm-Zq-Irz-Fe-FA tab Take 1 tablet by mouth once daily. (Patient not taking: Reportedon 12/07/2018) pregabalin (LYRICA) 75 mg capsule Take [...] Extensor Hallux Longus 5/5 5/5 Ankle Dorsiflexion 5 5/5 Ankle Plantarflexion / 5/5 Knee Extension /5 5/5 Faustino's Exam: Superficial non-anatomic tenderness: Yes [...] fistula would be difficult to exclude. No significantspinal cord signal abnormality. Degenerative disc change with [...] on this study, largely excluded from the yvknu-up-wubi. Slightly progressed degenerative endplate marrow signal changes [...] Tethered cord can be followed to the X6xksbj. 2. Postsurgical changes from L4 to L5. 3. Degenerative disc disease at L4-5, and degenerative facet joint arthritis from L4 to S1 4. No disc herniation, spinal stenosis or neuroforaminal narrowing seen. At time of today's appointment she states that she has been advised by [facility] [place] to seek out possible consideration for spinal cord stimulator. She states that she is unable to have epidural steroid injections due to significant spine history. At time of today's appointment she states that she does not want to proceed further with treatment without surgical opinionof Dr. Huber and Kaylene Daley PA-C , [...] 2023 TIME: 2:42 PM documented in this encounterUniversity Hospitals Ahuja Medical Center03-12-2024 History of Present illness Narrative* Frank Gutierrez OD - 12/01/2023 12:00 PM EDT Encounter Diagnosis ICD-10-CM 1. Strabismic amblyopia of [...] and plan as stated above and agree withall of its relevant components. Frank Gutierrez OD December 01, 2023 12:00 PM documented in this encounterUniversity Hospitals Ahuja Medical Center06-28-2023 NotePatient Education Material [facility] Adult Home Going Instructions [...] by your care provider ? Only take nlwo-nnf-pbqtdre or prescription medications as directed ? Slowly resume diet ? Activity as directed by your surgeon ? Use extra care climbing stairs or walking with crutches If you have questions or problems that seem to be related to the anesthetic, call the hospital at [phone] and ask for the CHECK PILOT bilingual speech therapist or anesthesiologist. Thank you for the privilege [...] Do not smoke. Call the surgeon for uncontrollednausea and vomiting. ? Pain does not mean that something is wrong, or the surgery did not go well. Do not wait until thepain gets bad to start taking pain medication. Increase activity each day as directed by surgeon asthis increases blood flow to promote healing. Take [...] alcohol or excessive caffeine to prevent difficulty urinating.If you cannot urinate for 8 hours or [...] with fluid. This stretches the bladder so thatyour doctor can look closely at the inside [...] bicycle riding, jogging, weight lifting, or aerobic exercise,until your doctor says it is okay. ? [...] upset, try bland, low-fat foods like plain rice,broiled chicken, toast, and yogurt. ? Drink plenty of fluids (unless your doctor tells you not to). (more content not included)...[facility]06-28-2023 NotePAA Education Entered On: 03/18/2023 8:36 EDT Performed On: [...] understanding Rosa Faye RN - 03/18/2023 8:[facility] NotePreprocedure Checklist Entered On: 03/06/2023 14:00 EDT Performed On: [...] risk situation (congregated living, hemodialysis, infusion clinic, group home, assisted living, senior living, homeless custodial, etc.)? : No Rosa Faye RN - [...] Makeup and Jewelry Removed : Yes Nail Gabonese Removed : Yes Wearing Patient Gown/Street Clothes [...] Substance: Silvadene ; Type: Allergy ; Updated By:Frannie Chakraborty RN; Reviewed Date: 03/18/2023 8:35 EDT Beta Lucila Beta Lucila History : Patient does not take a Beta Lucila Rosa Faye RN - 03/18/2023 8:34 EDT Protocols Patient Safety Grid ID Band on and Verified : Yes Rosa Faye RN - 03/18/2023 9:28 EDT Allergy Technical Services Manager : Yes Fall Risk Technical Services Manager : Yes Review of Labs : Yes HCG / UPREG : Yes (Comment: ON ADMIT [Palmer WILEY Frannie - 03/06/2023 13:59 EDT] ) Palmer WILEY Frannie - 03/18/2023 8:34 EDT Current H&P in Medical Record : Yes Siri Dwyer RN - 03/16/2023 8:32 EDT Urine C&S : Yes (Comment: FAXED & CALLED TO SURGEON'S OFFICE [Palmer WILEY [facility] 03/09/2023 7:56 EDT] ) Palmer WILEY [facility] - 03/09/2023 7:56 EDT Verification DCP GENERIC [...] Palmer WILEY Frannie - 03/06/2023 14:06 EDT [facility]06-16-2023 NotePatient: KARLENE TOM Age: 42 years Sex: Female : 1980 Associated Diagnoses: None Author: [employer] CONSULTANT, JASSI K Basic Information Source of history: Self. Chief [...] to sleep. She states she wakes up duringprocedures. She also states it takes her longer [...] the back, In the lower region, The painis moderate. Integumentary: No rash, No breakdown, No [...] Normal strength, No tenderness, No swelling, No deformity,Normal gait. Integumentary: Warm, Dry, [place]. Neurologic: Alert, Oriented, Normal sensory, Normal motor [...] voice recognition technology. Verbal misinterpretations may occur. [facility]06-16-2023 NotePAA Education Entered On: 03/06/2023 13:59 EDT Performed On: 03/06/2023 13:59 EDT by Frannie Chakraborty RN General / Required Barriers to Learning : None evident TeachBack Methodology : Explanation, Printed Material Palmer WILEY Frannie - 03/06/2023 13:59 EDT Education Nursing General Required GRID Pain Management : Verbalizes understanding Speakup : Verbalizes understanding Palmer WILEY Frannie - 03/06/2023 13:59 EDT Topic Specific Education Medication Management GRID Pain Can Be Managed,Relieved : Verbalizes understanding Palmer WILEY [facility] 03/06/2023 13:59 EDT Infection Control Education Dialysis Surgery - Hospital form # [id number] : Verbalizes understanding Palmer WILEY [facility] 03/06/2023 13:59 EDT Pain Pain Education Topics Grid Pain Assessment Tool : Verbalizes understanding Pain Can Be Managed/Relieved : Verbalizes understanding Palmer WILEY Frannie - 03/06/2023 13:59 EDT Pre Procedure / Surgery Education Procedures Tests Exams GRID NPO : Verbalizes understanding Preoperative Instructions : Verbalizes understanding Preprocedure Tests/Labs : Verbalizes understanding Preprocedure Diet : Verbalizes understanding Palmer WILEY [facility] 03/06/2023 13:59 [facility] 10-06-2022 NotePost Operative Note: PreOp Diagnosis: Neurogenic bladder, OAB Post-Procedure Diagnosis: Neurogenic bladder, OAB Procedure: 1. Intradetrusor botox 2. Cystoscopy 3. 4. 5. Surgeon: Lina Lopes Resident/Fellow/Other Administrative Liaison: Johana Cullen Anesthesia: LMA Estimated Blood Loss [...] Completion Last Updated: 07-Oct-2022 08:14 by Dominick Lopes)[facility] 10-06-2022 NoteHistory of Present Illness: /Lactating: Are You no Are You Currently [...] the note. I personally evaluated the patient [id number] Electronic Signatures: Norma Cullen (Fellow)) (Signed 05-Oct-2022 19:05) Authored: History of Present Illness, Allergies, Home Medication Review, Impression/Procedure, ERAS, Review of Systems, Physical Exam, Consent, Note Completion Dominick Lopes) (Signed 06-Oct-2022 08:28) Authored: Note Completion Co-Signer: History of Present Illness, Allergies, Home Medication Review, Impression/Procedure, ERAS, Review of Systems, Physical Exam, Consent, Note Completion Last Updated: 06-Oct-2022 08:28 by Domincik Lopes)[facility] 06-10-2022 [facility]* Encounter Date Diagnosis Assessment Notes Treatment Notes Treatment Clinical Notes Aug, Dysuria (ICD-10 - R30.0) Aug,cute cystitis with hematuria (ICD-10 - N30.01) Take medication as directed. Urine analysis shows abnormalities today in office. Urine culture willbe sent to lab. Will call with results if resistance present to antibiotic. Increase fluid intake. Follow hygiene guidelines such as wiping front to back, avoid using perfumed lotions, bath beads, bubble bath. Prevention tips inlcude urinating after sexual intercourse. Follow up with primary care pr ovider or obstetrics gyn if no improvement of symptoms. [employer] Other [id number] History of Past illness Narrative* Problem Noted DateDiagnosed DateResolved DatePrenatal care, subsequent Unspecified site of sprain and [id number] documented as of this encounter (statuses as of 01/09/2024) [facility] History of Past illness Narrative* ProblemNoted Date Diagnosed DateResolved DateUnspecified site of sprain and rxxekn6810/25/2003 05/17/2012documented as of this encounter (statuses as of 12/02/2023) [facility] History of Past illness Narrative* ProblemNoted Date Diagnosed DateResolved DateUnspecified site of sprain and pvjqcn3510/25/2003 05/17/2012documented as of this encounter (statuses as of 12/08/2023) [facility] History of Past illness Narrative* ProblemNoted Date Diagnosed DateResolved DateUnspecified site of sprain and aiiugz7410/25/2003 05/17/2012documented as of this encounter (statuses as of 12/08/2023) [facility] noteNo assessment information availableHolzer Hospital Work Phone: Evaluation note* Diagnosis 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 amblyopia Diplopia [facility]* Diagnosis Tethered cord (HCC)- Primary Other specified congenital anomaly of spinal cord Hx of spina bifida Personal history of (corrected) congenital malformations of integument, limbs, and musculoskeletal systems Chronic bilateral low back pain, unspecified whether sciatica present H/O laminectomy Other postprocedural status Chronic pain syndrome [facility] Diagnosis Tethered cord (HCC) [Q06.8]- Primary Other specified congenital anomaly of spinal cord [facility]* Diagnosis Encounter to establish care- Primary Other reasons for seeking consultation Tethered cord (HCC) Other specified congenital anomaly of spinal cord Spina bifida, unspecified hydrocephalus presence, unspecified spinal region (HCC) Other chronic pain Smoker Tobacco use disorder Mood disorder (HCC) Unspecified episodic mood disorder documented [facility]* Diagnosis Monocular exotropia with other noncomitancies, left eye- Primary Hypotropia of left eye Amblyopia, left eye Amblyopia, unspecified [facility] Diagnosis Urge incontinence- Primary Post-operative pain Other acute postoperative pain Urge incontinence Obesity Obesity, unspecified documented in this encounter [facility] Work Phone: Evaluation note* Diagnosis Tethered [...] noncomitancies, left eye [facility]* Diagnosis Tethered cord (HCC) Other specified congenital anomaly of spinal cord Hx of spina bifida Personal history of (corrected) congenital malformations of integument, limbs, and musculoskeletal systems Chronic bilateral low back pain, unspecified whether sciatica present H/O laminectomy Other postprocedural status Chronic pain syndrome Monocular exotropia with other noncomitancies, left eye [facility] Diagnosis Chronic bilateral low back pain, [...] noncomitancies, left eye [facility]* Diagnosis Urge incontinence- Primary documented in this encounter [facility] Work Phone: Evaluation note* Diagnosis Nontoxic single thyroid nodule Nontoxic uninodular goiter Monocular exotropia with other noncomitancies, left eye documented [facility] this [facility]* Diagnosis Multiple thyroid nodules- Primary Nontoxic multinodular goiter Monocular exotropia with other noncomitancies, left eye documented [facility]* Diagnosis Thyroid nodule- Primary Nontoxic uninodular goiter Monocular exotropia with other noncomitancies, left eye documented [facility]* Diagnosis Multiple thyroid nodules- Primary Nontoxic multinodular goiter Chronic bilateral low back pain, unspecified whether sciatica present Heartburn Nausea Nausea alone Chronic daily headache Headache Monocular exotropia with other noncomitancies, left eye documented [facility]* Diagnosis Chronic bilateral low back pain, [...] noncomitancies, left eye documented [facility]* Diagnosis Tethered cord (HCC)- Primary 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, unspecified Monocular exotropia with other noncomitancies, left eye documented [facility] this [facility]* Diagnosis Chronic bilateral low back pain with sciatica, sciatica laterality unspecified- Primary Monocular exotropia with other noncomitancies, left eye documented [facility] this [facility]* Diagnosis Chronic bilateral low back pain [...] noncomitancies, left eye documented [facility] this [facility]* Diagnosis Chronic bilateral low back pain with sciatica, sciatica laterality unspecified- Primary Monocular exotropia with other noncomitancies, left eye documented [facility] this [facility]* Diagnosis Chronic bilateral low back pain with sciatica, sciatica laterality unspecified- Primary Monocular exotropia with other noncomitancies, left eye documented [facility] this [facility]* Diagnosis Chronic bilateral low back pain with sciatica, sciatica laterality unspecified- Primary Monocular exotropia with other noncomitancies, left eye documented in this [facility]* Diagnosis Thyroid nodule Nontoxic uninodular goiter Monocular exotropia with other noncomitancies, left eye documented in this encounter [facility]* Diagnosis Chronic bilateral low back pain, unspecified whether sciatica present Monocular exotropia with other noncomitancies, left eye documented in this [facility]* Diagnosis Thyroid nodule- Primary Nontoxic uninodular goiter Monocular exotropia with other noncomitancies, left eye [facility]* Diagnosis Airway compromise- Primary Other diseases of respiratory system, not elsewhere classified Multiple thyroid nodules Nontoxic multinodular goiter Monocular exotropia with other noncomitancies, left eye documented in this encounter [facility]* Diagnosis Non-toxic multinodular goiter- Primary Nontoxic multinodular goiter Monocular exotropia with other noncomitancies, left eye documented in this [facility]* Diagnosis Pre-op evaluation- Primary Preoperative examination, [...] noncomitancies, left eye documented [facility]* Diagnosis Adjustment disorder with mixed anxiety [...] noncomitancies, left eye documented [facility] this [facility]* Diagnosis Chronic bilateral low back pain, unspecified whether sciatica present documented [facility] this [facility]* Diagnosis Monocular exotropia with other noncomitancies, left eye- Primary Hypotropia of left eye documented [facility] this [facility]* Diagnosis Chronic pain syndrome- Primary Hx of spina bifida Personal history of (corrected) congenital malformations of integument, limbs, and musculoskeletal systems Chronic bilateral low back pain with sciatica, sciatica laterality unspecified Tethered cord (HCC) Other specified congenital anomaly of spinal cord Hx of laminectomy Other postprocedural status Anxiety and depression Dysthymic disorder documented [facility]* Diagnosis Monocular exotropia with other noncomitancies, left eye- Primary Hypotropia of left eye documented [facility] this [facility]* Diagnosis Encounter for observation for other suspected diseases and conditions ruled out Abnormal findings on diagnostic imaging of other parts of musculoskeletal system Pain in thoracic spine documented [facility] this [facility]* Diagnosis RUQ pain- Primary Abdominal pain, right upper quadrant Screening for depression Encounter for immunization Need for other specified prophylactic vaccination against single bacterial disease Encounter for screening examination for other mental health and behavioral disorders Multiple thyroid nodules Nontoxic multinodular goiter [facility]* Diagnosis RUQ pain Abdominal pain, right upper quadrant documented [facility] this [facility]* Diagnosis Chronic bilateral low back pain, unspecified whether sciatica present RUQ pain Abdominal pain, right upper quadrant documented [facility]* Diagnosis Other chronic pain- Primary documented [facility]* Diagnosis Morbid obesity with BMI of 40.0-44.9, adult (HCC)- Primary Morbid obesity Current every day smoker Tobacco use disorder Vapes nicotine containing substance [facility]* Diagnosis Encounter for screening mammogram for breast cancer [facility]* Diagnosis Severe obesity (BMI >= 40) [...] counseling Exercise counseling documented in this encounter [facility] note* Diagnosis Acute UTI Urinary tract infection, site not specified [facility]* Diagnosis Chronic bilateral low back pain, unspecified whether sciatica present documented [facility]* Diagnosis Severe obesity (BMI >= 40) (HCC)- Primary Morbid obesity [facility]* Diagnosis Chronic bilateral low back pain, unspecified whether sciatica present documented in this encounter [facility] note* Diagnosis Multiple thyroid nodules- Primary Nontoxic multinodular goiter [facility]* Diagnosis Multiple thyroid nodules- Primary Nontoxic multinodular goiter Thyroid nodule Nontoxic uninodular goiter Multiple thyroid nodules Nontoxic multinodular goiter documented [facility]* Diagnosis Severe obesity (BMI >= 40) (HCC) Morbid obesity Multiple thyroid nodules Nontoxic multinodular goiter documented [facility]* Diagnosis Multiple thyroid nodules Nontoxic multinodular goiter Multiple thyroid nodules Nontoxic multinodular goiter documented [facility]* Diagnosis Pre-op evaluation- Primary Preoperative examination, [...] beginning of November. [facility]* Diagnosis Pre-op evaluation- Primary Preoperative examination, [...] Nontoxic multinodular goiter [facility]* Diagnosis Pre-op evaluation- Primary Preoperative examination, [...] Nontoxic multinodular goiter [facility]* Diagnosis Pre-op evaluation- Primary Preoperative examination, [...] Nontoxic multinodular goiter [facility]* Diagnosis Pre-op evaluation- Primary Preoperative examination, [...] Nontoxic multinodular goiter documented in this encounter [facility] note* Diagnosis Pre-op evaluation- Primary Preoperative examination, [...] Nontoxic multinodular goiter documented in this encounter [facility] note* Diagnosis Pre-op evaluation- Primary Preoperative examination, [...] region (HCC)- Primary documented in this encounter [facility] general Narrative - Reported* Type Description Date Medical History spina bifida Medical HistoryStage 1 kidney failureSurgical History3 lower backsurgeries Surgical History3 stomach surgeriesSurgical History2 rt leg surgeriesSurgical Historycervical cancerSurgical Historyeye surgerySurgical Historywisdom teeth Surgical Historyspine surgerySurgical Historylaminectomy L4 [id number] History botox in bladderHospitalization Historysee above [employer] Other Reason for referral (narrative)* Diagnostic Procedure Only (Routine) - Pending ReviewSpecialtyDiagnoses / ProceduresReferred By ContactReferred To ContactXR IMAGING Diagnoses Tethered cord (HCC) Hx of spina bifida Chronic bilateral low back pain, unspecified whether sciatica present H/O laminectomy Chronic pain syndrome Procedures XR LUMBAR GENERAL 3V AP/LAT/L5-S1 RADEX SPINE LUMBOSACRAL 2/3 VIEWS Norma Lyman APRN.CNP [address] [place] [address] [facility] [place] [address] Referral IDStatusReasonStart DateExpiration DateVisits RequestedVisits [id number] Review Auto-Generated Referral / * Consult, Test, Treat (Routine) - Pending ReviewSpecialtyDiagnoses / Procedures Referred By ContactReferred To [facility] Diagnoses Tethered cord (HCC) Hx of spina bifida Chronic bilateral low back pain, unspecified whether sciatica present H/O laminectomy Chronic pain syndrome Procedures CONSULT TO [facility]) OFFICE/OUTPATIENT [facility] 60 MINUTES Norma Lyman APRN.CNP [address] [place] [address] Referral IDStatusKianaasonStart DateExpiration DateVisits RequestedVisits [id number] Review PCP Requested Referral * Consult, Test, Treat (Routine) - AuthorizedSpecialtyDiagnoses / Procedures Referred By ContactReferred To ContactNeurology Diagnoses Tethered cord (HCC) Hx of spina bifida Chronic bilateral low back pain, unspecified whether sciatica present H/O laminectomy Chronic pain syndrome Procedures CONSULT TO NEUROLOGY OFFICE/OUTPATIENT [facility] 60 MINUTES Norma Lyman APRN.CNP [address] [place] [address] Referral IDStatusReasonStart DateExpiration DateVisits RequestedVisits [id number] PCP Requested Referral / [facility] for referral (narrative)* Diagnostic Procedure Only (Routine) - AuthorizedSpecialtyDiagnoses / ProceduresReferred By Contact Referred To ContactUS IMAGING Diagnoses RUQ pain Procedures US ABD RIGHT UPPER QUADRANT US ABDOMINAL REAL TIME W/IMAGE LIMITED Aidan Montenegro MD [address] [place] [address] [place] [address] Referral IDStatusReasonStart DateExpiration DateVisits RequestedVisits [id number] Auto-Generated Referral / [facility] for referral (narrative)* Diagnostic Procedure Only (Routine) - New RequestSpecialtyDiagnoses / ProceduresReferred By Contact Referred To ContactBR IMAGING Diagnoses Encounter for screening mammogram for breast cancer Procedures HUDSON SCREENING W STEFFEN SCREENING DIGITAL BREAST TOMOSYNTHESIS BI SCREENING MAMMOGRAPHY BI 2-VIEW BREAST INC CAD Aidan Montenegro MD [address] [place] [address] [facility] [address] [place] [address] Referral IDStatusReasonStart DateExpiration DateVisits RequestedVisits [id number] Request Auto-Generated Referral [facility] for referral (narrative)No reason for referral information availableLake County [facility] Work Phone: Reason for visit Narrative* Diagnostic Procedure Only (Routine) - ClosedSpecialtyDiagnoses / ProceduresReferred By ContactReferred To ContactXR IMAGING Diagnoses Tethered cord (HCC) Hx of spina bifida Chronic bilateral low back pain, unspecified whether sciatica present H/O laminectomy Chronic pain syndrome Procedures XR LUMBAR GENERAL 3V AP/LAT/L5-S1 RADEX SPINE LUMBOSACRAL 2/3 VIEWS Norma Lyman, [employer] CONSULTANT [address] [place] [address] [facility] [place] [address] Referral IDStatusReasonStalbuquerque DateExpiration DateVisits RequestedVisits [id number] Auto-Generated Referral / [facility] for visit Narrative* Diagnostic Procedure Only (Routine) - ClosedSpecialtyDiagnoses / ProceduresReferred By ContactReferred To Contact [facility] Diagnoses Nontoxic single thyroid nodule Procedures US THYROID/PARATHYROID US SOFT TISSUE HEAD & NECK REAL TIME IMGE Kaylene Mills PA-C [address] [place] [address] [facility] [place] [address] Referral IDStatusReasonAvon DateExpiration DateVisits RequestedVisits [id number] Auto-Generated Referral / [facility] for visit Narrative* Diagnostic Procedure Only (Routine) - ClosedSpecialtyDiagnoses / ProceduresReferred By ContactReferred To Contact [facility] Diagnoses RUQ pain Procedures US ABD RIGHT UPPER QUADRANT US ABDOMINAL REAL TIME W/IMAGE LIMITED Aidan Montenegro MD [address] [place] [address] [facility] [place] [address] Ref[facility]Status[facility] DateExpiration DateVisits RequestedVisits [id number] Auto-Generated Referral / [facility] for visit Narrative* Outpatient Procedure (Routine) - ClosedSpecialtyDiagnoses / ProceduresReferred By ContactReferred To Contact [facility] Diagnoses Multiple thyroid nodules Procedures ECG COMPLETE ECG ROUTINE ECG W/LEAST 12 LDS W/I&R Bri Vo MD [address] [place] [address] Phone: tel: fax: [facility] [address] [place] [address] Referral IDStatusLeonid DateExpiration DateVisits RequestedVisits [id number] Auto-Generated Referral [facility] Summary Purpose Family History No Family History Records Found Relationship Condition Age at Onset Recorded Date/T nia father Malignant neoplasm Unknown HypertensionUnknownNot SpecifiedMalignant neoplasmUnknown Relationship Condition Age at Onset Recorded Date/T nai father Malignant neoplasm Unknown HypertensionUnknownmotherMalignant neoplasmUnknownfatherHypertensionUnknown Malignant neoplasmUnknownmotherHypertensionUnknown Advance Directives No Advanced Directives Records Found Advance Directive Response Recorded Date/ Time Advance Directives No February 03 3:15pm Advance Directive Response Recorded Date/ Time Advance Directives No February 03 2:15pm Date ActivatedDate InactivatedComments01/18/2024 9:35 AMQuestionAnswerComments Plan of Care:* Code Status Discussion Completed Decision Maker:* Patient Date ActivatedDate InactivatedComments01/18/2024 9:35 AMQuestionAnswerComments Plan of Care:* Code Status Discussion Completed Decision Maker:* Patient Chief Complaint and Reason for Visit Chief Complaint LBP Abdominal Pain, Constipation, Bloody Diarrhea Abdominal Pain, Constipation, Bloody Diarrhea Chief Complaint LBP/do not move must see PT for this visit Chief Complaint numbness in face, lo ss of hearing Chief Complaint Admit Date Dysuria June 05, 2025 4:17pm Chief Complaint Admit Date Dysuria June 05, 2025 4:17pm R30. June 05, 2025 4:21pm Unknown June 05, 2025 6:25pm Reason for Visit Admit Date UTI (urinary tract infection) June 05, 2025 4:17pm Reason for Referral SpecialtyDiagnoses / ProceduresReferred By ContactReferred To Contact Diagnoses Severe obesity (BMI >= 40) (HCC) Procedures ENDOCRINOLOGY DIETITIAN VISIT (MNT) MEDICAL NUTRITION ASSMT&IVNTJ INDIV EACH 15 LA MEDICAL NUTRITION ASSMT&IVNTJ INDIV EACH 15 LA MEDICAL NUTRITION ASSMT&IVNTJ INDIV EACH 15 LA MEDICAL NUTRITION ASSMT&IVNTJ INDIV EACH 15 LA Brayan Dave, ALEE.[employer] WEBCENTER CONSULTANT [address] [place] [address] Referral IDStatusReasonStart DateExpiration DateVisits RequestedVisits [id number] PCP Requested Referral [id number] / ProceduresReferred By ContactReferred To Contact Diagnoses Morbid obesity with BMI of 40.0-44.9, adult (HCC) Procedures CONSULT TO HEPATOLOGY OFFICE/OUTPATIENT [facility] 60 MINUTES Aidan Montenegro MD [address] [place] [address] Referral IDStatusReasonStart DateExpiration DateVisits RequestedVisits [id number] PCP Requested Referral [id number] / ProceduresReferred By ContactReferred To Contact Diagnoses Morbid obesity with BMI of 40.0-44.9, adult (HCC) Procedures ENDOCRINE MEDICAL WEIGHT MANAGEMENT OFFICE/OUTPATIENT [facility] 60 MINUTES Aidan Montenegro MD [address] [place] [address] Referral IDStatusReasonStart DateExpiration DateVisits RequestedVisits [id number] PCP Requested Referral [id number] / ProceduresReferred By ContactReferred To ContactPain Management Diagnoses Other chronic pain Procedures CONSULT TO PAIN MGT OFFICE/OUTPATIENT [facility] MDM 60 MINUTES Kaylene Daley PA-C [address] [place] [address] Referral IDStatusReasonStart DateExpiration DateVisits RequestedVisits [id number] PCP Requested Referral [id number] / ProceduresReferred By ContactReferred To ContactCT IMAGING Diagnoses Multiple thyroid nodules Procedures CT NECK SOFT TISSUE W IVCON CT SOFT TISSUE NECK W/[place] [address] [place] [address] [place] [address] Referral IDStatusReasonStart DateExpiration DateVisits RequestedVisits [id number] Clinical Info Needed Auto-Generated Referral /[id number] / ProceduresReferred By ContactReferred To Contact Diagnoses Thyroid nodule Procedures CONSULT TO ENDOCRINE SURGERY OFFICE/OUTPATIENT [facility] 60 MINUTES Jailene Dave MD [address] [place] [address] Referral IDStatusReasonStart DateExpiration DateVisits RequestedVisits [id number] PCP Requested Referral /[id number] / ProceduresReferred By ContactReferred To ContactEndocrinology Diagnoses Thyroid nodule Procedures CONSULT TO ENDOCRINOLOGY OFFICE/OUTPATIENT [facility] 60 MINUTES Aidan Montenegro MD [address] [place] [address] Referral IDStatusReasonStart DateExpiration DateVisits RequestedVisits [id number] PCP Requested Referral [id number] / ProceduresReferred By ContactReferred To ContactEnt - Otolaryngology Diagnoses Multiple thyroid nodules Procedures CONSULT TO ENT OFFICE/OUTPATIENT [facility] 60 MINUTES Kaylene Daley PA-C [address] [place] [address] Referral IDStatusReasonStart DateExpiration DateVisits RequestedVisits [id number] PCP Requested Referral /[id number] / ProceduresReferred By ContactReferred To ContactMR IMAGING Diagnoses Pain in thoracic spine Procedures MRI THORACIC SPINE WO IVCON MRI SPINAL CANAL THORACIC W/O CONTRAST MATRL Thuy Kaylene J, PA-C [address] [place] [address] Mr [facility] [place] [address] Referral IDStatusReasonStalbuquerque DateExpiration DateVisits RequestedVisits [id number] Clinical Info Needed Auto-Generated Referral [id number] / ProceduresReferred By ContactReferred To Contact IMAGING Diagnoses Abnormal findings on diagnostic imaging of other parts of musculoskeletal system Procedures MRI CERVICAL SPINE WO IVCON MRI SPINAL CANAL CERVICAL W/O CONTRAST Kaylene Smith PA-C [address] [place] [address] Mr [facility] [place] [address] Referral IDStatusReasonStart DateExpiration DateVisits RequestedVisits [id number] Review Auto-Generated Referral [id number] / ProceduresReferred By ContactReferred To Contact IMAGING Diagnoses Encounter for observation for other suspected diseases and conditions ruled out Procedures MRI LUMBAR SPINE WO IVCON MRI SPINAL CANAL LUMBAR W/O CONTRAST Kaylene Arreguin PA-C [address] [place] [address] Mr [facility] [place] [address] Referral IDStatusReasonStart DateExpiration DateVisits RequestedVisits [id number] Review Auto-Generated Referral Additional Source Comments INFORMATION SOURCE (unrecogn ized section and content) DATE CREATED AUTHOR 05/29/2020 [facility] DATE CREATED AUTHOR AUTHOR'S ORGANIZ ATION 12/27/2022 [facility] DATE CREATED AUTHOR AUTHOR'S ORGANIZ ATION 03/01/2023 [facility] DATE CREATED AUTHOR AUTHOR'S ORGANIZ ATION 03/20/2023 [facility] DATE CREATED AUTHOR AUTHOR'S ORGANIZ ATION 01/25/2024 [facility] DATE CREATED AUTHOR AUTHOR'S ORGANIZ ATION 02/10/2024 [facility] DATE CREATED AUTHOR AUTHOR'S ORGANIZ ATION 07/04/2024 [facility] DATE CREATED AUTHOR AUTHOR'S ORGANIZ ATION 06/09/2025 [facility] DATE CREATED AUTHOR AUTHOR'S ORGANIZ ATION 07/16/2025 [facility] DATE CREATED AUTHOR AUTHOR'S ORGANIZ ATION 08/01/2025 [facility] DATE CREATED AUTHOR AUTHOR'S ORGANIZ ATION 08/03/2025 [facility] REASON FOR VISIT (unrecogniz ed section and content) ReasonCommentsStrabismus EvaluationReasonCommentsNew PatientLow Back painReason CommentsNurse Triage CallReasonCommentsEstablish CareBack PainSciaticResultsHad labs done from another doctor results were off did not bring them done at [facility] ProblemTold to get thyroid panel was not done with recent labs hair lossSpecialtyDiagnoses / ProceduresReferred By ContactReferred To Contact Diagnoses Urge incontinence Urge incontinence [N39.41] Procedures DC CYSTOURETHROSCOPY INJ CHEMODENERVATION BLADDER CYSTOSCOPY, WITH BOTULINUM TOXIN INJECTION [address] [place] [address] [facility] [address], [facility] [address] [place] [address] [facility] [place] [address] [place] [address] Referral IDStatusReasonStart DateExpiration DateVisits RequestedVisits [id number] PatientSpecialtyDiagnoses / Procedures Referred By ContactReferred To ContactNeurology Diagnoses Tethered cord (HCC) Hx of spina bifida Chronic bilateral low back pain, unspecified whether sciatica present H/O laminectomy Chronic pain syndrome Procedures CONSULT TO NEUROLOGY OFFICE/OUTPATIENT [facility] 60 MINUTES Norma Lyman, GOLD LEAF GILDER.[employer] WEBCENTER CONSULTANT [address] [place] [address] Referral IDStatusReasonStart DateExpiration DateVisits RequestedVisits [id number] PCP Requested Referral /[id number] UpLab resultsT3, states she put a lot of weight on quickly temp goes down instead of up when sick.UTIBladder pain, strong odor.ReasonCommentsReceived Outside Medical RecordsReceived outside medical records on providers desk for review.ReasonCommentsBotox POVReason CommentsRequest Outside Medical RecordsReasonCommentsResultsReasonCommentsRx RefillsThyroid Problem4 nodules. Neck [painReasonCommentsNew PatientSpecialty Diagnoses / ProceduresReferred By ContactReferred To [facility] / [facility] Diagnoses Tethered cord (HCC) Hx of spina bifida Chronic bilateral low back pain, unspecified whether sciatica present H/O laminectomy Chronic pain syndrome Procedures CONSULT TO [facility]IN) OFFICE/OUTPATIENT [facility] 60 MINUTES Norma Lyman, ALEE.ORACLE WEBCENTER CONSULTANT [address] [place] [id number] [facility] [address] [address] [place] [id number] Referral IDStatusReasonStart DateExpiration DateVisits RequestedVisits [id number] PCP Requested Referral [id number] UpReasonCommentsInfusionSpecialty Diagnoses / ProceduresReferred By ContactReferred To ContactNeurology / NEUROLOGY PAIN Diagnoses KETAMINE INFUSIONS Procedures INFUSION KETAMINE Self Spine Chronic Pain Infusions [place] [address] [address] [place] [address] Referral IDStatusReasonStart DateExpiration DateVisits RequestedVisits [id number] Patient Cleared - INN Insurance Found [id number] NoduleSpecialtyDiagnoses / Procedures Referred By ContactReferred To ContactEndocrinology Diagnoses Thyroid nodule Procedures CONSULT TO ENDOCRINOLOGY OFFICE/OUTPATIENT [facility] 60 MINUTES Aidan Montenegro MD [address] [place] [address] Referral IDStatusReasonStart DateExpiration DateVisits RequestedVisits [id number] PCP Requested Referral /[id number] DateCommentsRefill Npahgms7603/28/2024eason CommentsThyroid NoduleFNAB rt mid lower pole and rt isthmusReasonCommentsConsult Referred by Neurology for throat nodules which endo is seeing her for. Bx done last week. Results not discussed yet. Coughs up yellow phlegm dailySpecialty Diagnoses / ProceduresReferred By ContactReferred To ContactEnt - Otolaryngology Diagnoses Multiple thyroid nodules Procedures CONSULT TO ENT OFFICE/OUTPATIENT [facility] 60 MINUTES Kaylene Daley PA-C [address] [place] [address] Referral IDStatusReasonStart DateExpiration DateVisits RequestedVisits [id number] PCP Requested Referral [id number]jgmJnqmbzdvVdfcegpWvdsgyOvbji Date CommentsRefill Tvxcjzn99/11/2024ReasonCommentsPost OpReasonCommentsMedication ProblemSpecialtyDiagnoses / ProceduresReferred By ContactReferred To Contact IMAGING Diagnoses Pain in thoracic spine Procedures MRI THORACIC SPINE WO IVCON MRI SPINAL CANAL THORACIC W/O CONTRAST MATRL Kaylene Daley PA-C [address] [place] [address] Mr [facility] [place] [address] Referral IDStatusReasonStart DateExpiration DateVisits RequestedVisits [id number] Auto-Generated Referral /[id number] RequestBack PainMid backNauseaAbdominal PainDiarrheaX1 week.ReasonOnset DateCommentsRefill Llpfnqm4907/04/2024easonOnset DateCommentsRefill Qivpohe3207/04/2024easonCommentsResultsliverLow Back Pain Headachedizzy spellsEverything goes black. Lost balance. Changing positionReason CommentsAppointmentPain managementReasonCommentsNew PatientConsultSpecialty Diagnoses / ProceduresReferred By ContactReferred To Contact Diagnoses Morbid obesity with BMI of 40.0-44.9, adult (HCC) Procedures ENDOCRINE MEDICAL WEIGHT MANAGEMENT OFFICE/OUTPATIENT [facility] 60 MINUTES Aidan Montenegro MD [address] [place] [address] Referral IDStatusReasonStart DateExpiration DateVisits RequestedVisits [id number] PCP Requested Referral 1ReasonOnset DateCommentsRefill Gxtqvcj9509/11/2024eason CommentsMedical Nutrition TherapySpecialtyDiagnoses / ProceduresReferred By ContactReferred To Contact Diagnoses Severe obesity (BMI >= 40) (HCC) Procedures ENDOCRINOLOGY DIETITIAN VISIT (MNT) MEDICAL NUTRITION ASSMT&IVNTJ INDIV EACH 15 LA MEDICAL NUTRITION ASSMT&IVNTJ INDIV EACH 15 LA MEDICAL NUTRITION ASSMT&IVNTJ INDIV EACH 15 LA MEDICAL NUTRITION ASSMT&IVNTJ INDIV EACH 15 LA Brayan Dave APRN.[employer] WEBCENTER CONSULTANT [address] [place] [address] Referral IDStatusReasonStart DateExpiration DateVisits RequestedVisits [id number] PCP Requested Referral 1ReasonOnset DateCommentsRefill Jcbtgsr2610/05/2024Reason Onset DateCommentsRefill Tujdyxv9010/16/2024ReasonCommentsConsultFACE SHEETReason CommentsThyroid DiseaseSpecialtyDiagnoses / ProceduresReferred By Contact Referred To Contact Diagnoses Thyroid nodule Procedures CONSULT TO ENDOCRINE SURGERY OFFICE/OUTPATIENT [facility] 60 MINUTES Jailene Dave MD [address] [place] [address] Phone: tel: fax: Referral IDStatusReasonStart DateExpiration DateVisits RequestedVisits [id number] PCP Requested Referral [id number]-Xj VisitReasonCommentsSame Day Appointment Mandatory medicine visitReasonCommentsRefill RequestReasonCommentsAppointment ReasonCommentsPre-Op UpdateUTIReasonCommentsEstablish CareNeeds new pcp and wants to get health in order. Was supposed to get surgery April 10- 5.5cm mass in neck, told she will not need this unless she is having pain. Care Teams (unrecognized sec tion and content) Team Status: Inactive Member Role Status Dates Juanita Sharma DO Primary Care Provider Active Amb[facility] Ward[facility] health ProviderActive Team Status: Active Member Role Status Dates Liya Peña MD Attending Provider Active Angel Guerrero Care ProviderActive Team Status: Active Member Role Status Dates Juanita Sharma DO Primary Care Provider Active Team Status: Inactive Member Role Status Dates Liya Peña MD Attending Provider Active Angel Guerrero ProviderActive Team Status: Active Member Role Status Dates Shon Angel , [facility] Primary Care Provider Active Team Status: Inactive Member Role Status Dates Shon Angel , [facility] Primary Care Provider Active Karl Salas ProviderActiveTeam MemberRelationshipSpecialtyStart DateEnd [facility] PCP - GeneralFamily Medicine04/21/17 [place] [facility]02/15/17Team MemberRelationshipSpecialtyStart [facility] PCP - GeneralFamily Medicine04/21/17 [place] Juanita Balta ., DO [facility]02/15/17Team MemberRelationshipSpecialtyStart [facility] HealthEnd [facility] Juanita [facility] DO PCP - GeneralFamily Medicine04/21/17 Juanita Sharma Sr., DO Family Medicine02/15/17Team MemberRelationshipSpecialtyStart DateEnd Date Aidan Montenegro MD [address] [place] [address] PCP - GeneralInternal Medicine01/06/24 Juanita Sharma Sr., DO Family Medicine02/15/17Team MemberRelationshipSpecialtyStart DateEnd Date Aidan Montenegro MD [address] [place] [address] PCP - GeneralInternal Medicine01/06/24 Juanita Sharma Sr., DO Family Medicine02/15/17Team MemberRelationshipSpecialtyStart DateEnd Date Juanita Sharma, DO PCP - General09/21/19Team MemberRelationshipSpecialtyStart DateEnd Date Aidan Montenegro MD [address] [place] [address] PCP - GeneralInternal Medicine01/06/24 Juanita Sharma Sr., DO Family Medicine02/15/17Team MemberRelationshipSpecialtyStart DateEnd Date Aidan Montenegro MD [address] [place] [address] PCP - GeneralInternal Medicine01/06/24 Juanita Sharma Sr., DO Family Medicine02/15/17Team MemberRelationshipSpecialtyStart DateEnd Date Aidan Montenegro MD [address] [place] [address] PCP - GeneralInternal Medicine01/06/24 Juanita Sharma Sr., DO Family Medicine02/15/17Team MemberRelationshipSpecialtyStart DateEnd Date Aidan Montenegro MD [address] [place] [address] PCP - GeneralInternal Medicine01/06/24 Juanita Sharma Sr., DO Family Medicine02/15/17Team MemberRelationshipSpecialtyStart DateEnd Date Juanita Sharma, [address] [place] [address] PCP - GeneralFamily Medicine02/05/24Team MemberRelationshipSpecialtyStart DateEnd Date Aidan Montenegro MD [address] [place] [address] PCP - GeneralInternal Medicine01/06/24 Juanita Sharma Sr., DO Family Medicine02/15/17Team MemberRelationshipSpecialtyStart DateEnd Date Aidan Montenegro MD [address] [place] [address] PCP - GeneralInternal Medicine01/06/24 Juanita Sharma SrAnabel, DO Family Medicine02/15/17Team MemberRelationshipSpecialtyStart DateEnd Date Aidan Montenegro MD [address] [place] [address] PCP - GeneralInternal Medicine01/06/24 Juanita Sharma SrAnabel, DO Family Medicine02/15/17Team MemberRelationshipSpecialtyStart DateEnd Date Aidan Montenegro MD [address] [place] [address] PCP - GeneralInternal Medicine01/06/24 Juanita Sharma Sr., DO Family Medicine02/15/17Team MemberRelationshipSpecialtyStart DateEnd Date Aidan Montenegro MD [address] [place] [address] PCP - GeneralInternal Medicine01/06/24 Juanita Sharma Sr., DO Family Medicine02/15/17Team MemberRelationshipSpecialtyStart DateEnd Date Aidan Montenegro MD [address] [place] [address] PCP - GeneralInternal Medicine01/06/24 Juanita Sharma Sr., DO Family Medicine02/15/17Team MemberRelationshipSpecialtyStart DateEnd Date Aidan Montenegro MD [address] [place] [address] PCP - GeneralInternal Medicine01/06/24 Juanita Shrama Sr., DO Family Medicine02/15/17Team MemberRelationshipSpecialtyStart DateEnd Date Aidan Montenegro MD [address] [place] [address] PCP - GeneralInternal Medicine01/06/24 Juanita Sharma Sr., DO Family Medicine02/15/17Team MemberRelationshipSpecialtyStart DateEnd Date Aidan Montenegro MD [address] [place] [address] PCP - GeneralInternal Medicine01/06/24 Juanita Sharma Sr., DO Family Medicine02/15/17Team MemberRelationshipSpecialtyStart DateEnd Date Aidan Montenegro MD [address] [place] [address] PCP - GeneralInternal Medicine01/06/24 Juanita Sharma Sr., DO Family Medicine02/15/17Team MemberRelationshipSpecialtyStart DateEnd Date Aidan Montenegro MD [address] [place] [address] PCP - GeneralInternal Medicine01/06/24 Juanita Sharma SrAnabel, DO Family Medicine02/15/17Team MemberRelationshipSpecialtyStart DateEnd Date Aidan Montenegro MD [address] [place] [address] PCP - GeneralInternal Medicine01/06/24 Juanita Sharma Sr., DO Family Medicine02/15/17Team MemberRelationshipSpecialtyStart DateEnd Date Aidan Montenegro MD [address] [place] [address] PCP - GeneralInternal Medicine01/06/24 Juanita Sharma Sr., DO Family Medicine02/15/17Team MemberRelationshipSpecialtyStart DateEnd Date Aidan Montenegro MD [address] [place] [address] PCP - GeneralInternal Medicine01/06/24 Juanita Sharma Sr., DO Family Medicine02/15/17Team MemberRelationshipSpecialtyStart DateEnd Date Aidan Montenegro MD [address] [place] [address] PCP - GeneralInternal Medicine01/06/24 Juanita Sharma Sr., DO Family Medicine02/15/17Team MemberRelationshipSpecialtyStart DateEnd Date Aidan Montenegro MD [address] [place] [address] PCP - GeneralInternal Medicine01/06/24 Juanita Sharma Sr., DO Family Medicine02/15/17Team MemberRelationshipSpecialtyStart DateEnd Date Aidan Montenegro MD [address] [place] [address] PCP - GeneralInternal Medicine01/06/24 Juanita Sharma Sr., DO Family MedicineTeam MemberRelationshipSpecialtyStart DateEnd Date Aidan Montenegro MD [address] [place] [address] PCP - GeneralInternal Medicine01/06/24Team MemberRelationshipSpecialtyStart Date End Date Aidan Montenegro MD [address] [place] [address] PCP - GeneralInternal Medicine01/06/24Team MemberRelationshipSpecialtyStart Date End Date Aidan Montenegro MD [address] [place] [address] PCP - GeneralInternal Medicine01/06/24Team MemberRelationshipSpecialtyStart Date End Date Aidan Montenegro MD [address] [place] [address] PCP - GeneralInternal Medicine01/06/24Team MemberRelationshipSpecialtyStart Date End Date Aidan Montenegro MD [address] [place] [address] PCP - GeneralInternal Medicine01/06/24Team MemberRelationshipSpecialtyStart Date End Date Aidan Montenegro MD [address] [place] [address] PCP - GeneralInternal Medicine01/06/24Team MemberRelationshipSpecialtyStart Date End Date Aidan Montenegro MD [address] [place] [address] PCP - GeneralInternal Medicine01/06/24Team MemberRelationshipSpecialtyStart Date End Date Aidan Montenegro MD [address] [place] [address] PCP - GeneralInternal Medicine01/06/24Team MemberRelationshipSpecialtyStart Date End Date Aidan Montenegro MD [address] [place] [address] PCP - GeneralInternal Medicine01/06/24Team MemberRelationshipSpecialtyStart Date End Date Aidan Montenegro MD [address] [place] [address] PCP - GeneralInternal Medicine01/06/24 Juanita Sharma Sr., DO Family Medicine02/15/Team MemberRelationshipSpecialtyStart DateEnd Date Aidan Montenegro MD [address] [place] [address] PCP - GeneralInternal Medicine01/06/24Team MemberRelationshipSpecialtyStart Date End Date Aidan Montenegro MD [address] [place] [address] PCP - GeneralInternal Medicine01/06/24Team MemberRelationshipSpecialtyStart Date End Date Aidan Montenegro MD [address] [place] [address] PCP - GeneralInternal Medicine01/06/24Team MemberRelationshipSpecialtyStart Date End Date Aidan Montenegro MD [address] [place] [address] PCP - GeneralInternal Medicine01/06/24Team MemberRelationshipSpecialtyStart Date End Date Aidan Montenegro MD [address] [place] [address] PCP - GeneralInternal Medicine01/06/24Team MemberRelationshipSpecialtyStart Date End Date Aidan Montenegro MD [address] [place] [address] PCP - GeneralInternal Medicine01/06/24Team MemberRelationshipSpecialtyStart Date End Date Aidan Montenegro MD [address] [place] [address] PCP - GeneralInternal Medicine01/06/24Team MemberRelationshipSpecialtyStart Date End Date Aidan Montenegro MD [address] [place] [address] PCP - GeneralInternal Medicine01/06/24Team MemberRelationshipSpecialtyStart Date End Date Aidan Montenegro MD [address] [place] [address] PCP - GeneralInternal Medicine01/06/24 Kaylene Das APRN.[employer]LE WEBCENTER CONSULTANT [address] [place] [address] Care PartnerInternal Wxohoeej51/8/24 Tracie Williamson APRN.ORACLE WEBCENTER CONSULTANT [address] [place] [address] Care PartnerInternal Fmdhdyax07/10/24Team MemberRelationshipSpecialtyStart Date End Date Aidan Montenegro MD [address] [place] [address] PCP - GeneralInternal Medicine01/06/24 Kaylene Das APRN.ORACLE WEBCENTER CONSULTANT [address] [facility] [place] [address] Care PartnerInternal Dkrjgjqz62/8/24 Tracie Williamson GOLD LEAF GILDER.ORACLE WEBCENTER CONSULTANT [address] [facility] [place] [address] Care PartnerInternal Hivabjng46/10/24Team MemberRelationshipSpecialtyStart Date End Date Aidan Montenegro MD [address] [facility] [place] [address] PCP - GeneralInternal Medicine01/06/24 Kaylene Das GOLD LEAF GILDER.ORACLE WEBCENTER CONSULTANT [address] [facility] [place] [address] Care PartnerInternal Ubbmsgdd00/8/24 Tracie Williamson, GOLD LEAF GILDER.ORACLE WEBCENTER CONSULTANT [address] [facility] [place] [address] Care PartnerInternal Bxmuazaf33/10/24Team MemberRelationshipSpecialtyStart Date End Date Aidan Montenegro MD [address] [facility] [place] [address] PCP - GeneralInternal Medicine01/06/24 Kaylene Das GOLD LEAF GILDER.ORACLE WEBCENTER CONSULTANT [address] [facility] [place] [address] Care PartnerInternal Fvxhcfli54/8/24 Tracie Williamson GOLD LEAF GILDER.ORACLE WEBCENTER CONSULTANT [address] [facility] [facility] [address] Care PartnerInternal Odrcbaus65/10/24Team MemberRelationshipSpecialtyStart Date End Date Aidan Montenegro MD [address] [place] [address] PCP - GeneralInternal Medicine01/06/24 Kaylene Das APRN.ORACLE WEBCENTER CONSULTANT [address] [place] [facility] [place] [address] Care PartnerInternal Rtnzpgii55/8/24 Tracie Williamson, GOLD LEAF GILDER.ORACLE WEBCENTER CONSULTANT [address] [facility] [place] [address] Care PartnerInternal Bnmvcjzx75/10/24Team MemberRelationshipSpecialtyStart Date End Date Aidan Montenegro MD [address] [place] [address] PCP - GeneralInternal Medicine01/06/24 Kaylene Das GOLD LEAF GILDER.ORACLE WEBCENTER CONSULTANT [address] [facility] [place] [address] Care PartnerInternal Tvnocfpw14/8/24 Tracie Williamson, GOLD LEAF GILDER.ORACLE WEBCENTER CONSULTANT [address] [facility] [place] [address] Care PartnerInternal Hmujzpoi84/10/24Team MemberRelationshipSpecialtyStart Date End Date Aidan Montenegro MD [address] [facility] [place] [address] PCP - GeneralInternal Medicine01/06/24 Kaylene Das GOLD LEAF GILDER.ORACLE WEBCENTER CONSULTANT [address] [facility] [place] [address] Care PartnerInternal Tansjnpi25/8/24 Tracie Williamson, GOLD LEAF GILDER.ORACLE WEBCENTER CONSULTANT [address] [facility] [place] [address] Care PartnerInternal Jgatwnve07/10/24Team MemberRelationshipSpecialtyStart Date End Date Aidan Montenegro MD [address] [place] [address] PCP - GeneralInternal Medicine01/06/24 Kaylene Das GOLD LEAF GILDER.ORACLE WEBCENTER CONSULTANT [address] [facility] [place] [address] Care PartnerInternal Qzqzoynq83/8/24 Tracie Williamson, GOLD LEAF GILDER.ORACLE WEBCENTER CONSULTANT [address] [facility] [place] [address] Care PartnerInternal Eruhoemm68/10/24Team MemberRelationshipSpecialtyStart Date End Date Aidan Montenegro MD [address] [place] [address] PCP - GeneralInternal Medicine01/06/24 Kaylene Das GOLD LEAF GILDER.ORACLE WEBCENTER CONSULTANT [address] [facility] [place] [address] Care PartnerInternal Dxjdrhcj70/8/24 Tracie Williamson GOLD LEAF GILDER.ORACLE WEBCENTER CONSULTANT [address] [facility] [place] [address] Care PartnerInternal Ygtozkmd17/10/24Team MemberRelationshipSpecialtyStart Date End Date Aidan Montenegro MD [address] [facility] [place] [address] PCP - GeneralInternal Medicine01/06/24 Kaylene Das APRN.ORACLE WEBCENTER CONSULTANT [address] [place] [address] Care PartnerInternal Lfucrnrw76/8/24 Tracie Williamson, GOLD LEAF GILDER.ORACLE WEBCENTER CONSULTANT [address] [place] [address] Care PartnerInternal Eokkrvtf95/10/24Team MemberRelationshipSpecialtyStart Date End Date Aidan Montenegro MD [address] [place] [address] PCP - GeneralInternal Medicine01/06/24 Kaylene Das GOLD LEAF GILDER.ORACLE WEBCENTER CONSULTANT [address] [place] [address] Care PartnerInternal Sdmvpqnp06/8/24 Tracie Williamson, GOLD LEAF GILDER.ORACLE WEBCENTER CONSULTANT [address] [place] [address] Care PartnerInternal Ctulswkj64/10/24Team MemberRelationshipSpecialtyStart Date End Date Aidan Montenegro MD [address] [place] [address] PCP - GeneralInternal Medicine01/06/24 Kaylene Das GOLD LEAF GILDER.ORACLE WEBCENTER CONSULTANT [address] [place] [address] Care PartnerInternal Nlqaafii84/8/24 Tracie Williamson, GOLD LEAF GILDER.ORACLE WEBCENTER CONSULTANT [address] [place] [address] Care PartnerInternal Uymzuohj54/10/24Team MemberRelationshipSpecialtyStart Date End Date Tracie Williamson, GOLD LEAF GILDER.ORACLE WEBCENTER CONSULTANT [address] [facility] [place] [address] PCP - GeneralInternal Medicine01/26/25Team MemberRelationshipSpecialtyStart Date End Date Tracie Williamson, GOLD LEAF GILDER.ORACLE WEBCENTER CONSULTANT [address] [facility] [place] [address] PCP - GeneralInternal Medicine01/26/25Team MemberRelationshipSpecialtyStart Date End Date Aidan Montenegro MD PCP - GeneralInternal Medicine Tracie Williamson, GOLD LEAF GILDER.ORACLE WEBCENTER CONSULTANT [address] [facility] [place] [address] PCP - GeneralInternal Medicine01/26/25 Kaylene Das, GOLD LEAF GILDER.ORACLE WEBCENTER CONSULTANT Care PartnerInternal Ykghwbsp58/8/245 Tracie Williamson, GOLD LEAF GILDER.ORACLE WEBCENTER CONSULTANT [address] [facility] [place] [address] Care PartnerInternal Edxrwrxj56/10/245Team MemberRelationshipSpecialtyStart DateEnd Date Tracie Williamson, GOLD LEAF GILDER.ORACLE WEBCENTER CONSULTANT [address] [facility] [place] [address] PCP - GeneralInternal Medicine01/26/25Team MemberRelationshipSpecialtyStart Date End Date Tracie Williamson, GOLD LEAF GILDER.ORACLE WEBCENTER CONSULTANT [address] [place] [address] PCP - GeneralInternal Medicine01/26/25Team MemberRelationshipSpecialtyStart Date End Date Tracie Williamson L, GOLD LEAF GILDER.ORACLE WEBCENTER CONSULTANT [address] [facility] [place] [address] PCP - GeneralInternal Medicine01/26/25Team MemberRelationshipSpecialtyStart Date End Date ClayTracie calloway L, GOLD LEAF GILDER.ORACLE WEBCENTER CONSULTANT [address] [facility] [place] [address] PCP - GeneralInternal Medicine01/26/25 Team Status: Active Member Role Status Dates NON STAFF Primary Care Provider Active Team Status: Inactive Member Role Status Dates Pepe Vicente APRN Attending Provider Active S tart: June 05, 2025 End: June 05, 2025NON STAFFPrimary Care ProviderActiveStart: June 05, 2025 End: June 05, 2025 Team Status: Inactive Member Role Status Dates Pepe Vicente APRN Attending Provider Active S tart: June 05, 2025 End: June 05, 2025 Team Status: Inactive Member Role Status Dates Ro Wetzel MD Attending Provider Active Sta rt: June 05, 2025 End: June 05, 2025 Goals (unrecognized section and content) Goals may be documented in a n alternate section Source Comments (unrecognize d section and content) In the event this informatio n is protected by the Federal Confidentiality of Alcohol and Drug Abuse Patient Records regulations: The Federal rules restrict any use of the information to criminally investigate or prosecute any alcohol or drug abuse patient.[facility] the event this information is protected by the Federal Confidentiality of Alcohol and Drug Abuse Patient Records regulations: The Federal rules restrict any use of the information to criminally investigate or prosecute any alcohol or drug abuse patient.[facility] CenterIn the event this information is protected by the Federal Confidentiality of Alcohol and Drug Abuse Patient Records regulations: The Federal rules restrict any use of the information to criminally investigate or prosecute any alcohol or drug abuse patient.[facility] CenterIn the event this information is protected by the Federal Confidentiality of Alcohol and Drug Abuse Patient Records regulations: The Federal rules restrict any use of the information to criminally investigate or prosecute any alcohol or drug abuse patient.[facility] CenterIn the event this information is protected by the Federal Confidentiality of Alcohol and Drug Abuse Patient Records regulations: The Federal rules restrict any use of the information to criminally investigate or prosecute any alcohol or drug abuse patient.[facility] CenterIn the event this information is protected by the Federal Confidentiality of Alcohol and Drug Abuse Patient Records regulations: The Federal rules restrict any use of the information to criminally investigate or prosecute any alcohol or drug abuse patient.[facility] CenterIn the event this information is protected by the Federal Confidentiality of Alcohol and Drug Abuse Patient Records regulations: The Federal rules restrict any use of the information to criminally investigate or prosecute any alcohol or drug abuse patient.[facility] CenterIn the event this information is protected by the Federal Confidentiality of Alcohol and Drug Abuse Patient Records regulations: The Federal rules restrict any use of the information to criminally investigate or prosecute any alcohol or drug abuse patient.[facility] CenterIn the event this information is protected by the Federal Confidentiality of Alcohol and Drug Abuse Patient Records regulations: The Federal rules restrict any use of the information to criminally investigate or prosecute any alcohol or drug abuse patient.[facility] CenterIn the event this information is protected by the Federal Confidentiality of Alcohol and Drug Abuse Patient Records regulations: The Federal rules restrict any use of the information to criminally investigate or prosecute any alcohol or drug abuse patient.[facility] CenterIn the event this information is protected by the Federal Confidentiality of Alcohol and Drug Abuse Patient Records regulations: The Federal rules restrict any use of the information to criminally investigate or prosecute any alcohol or drug abuse patient.[facility] CenterIn the event this information is protected by the Federal Confidentiality of Alcohol and Drug Abuse Patient Records regulations: The Federal rules restrict any use of the information to criminally investigate or prosecute any alcohol or drug abuse patient.[facility] CenterIn the event this information is protected by the Federal Confidentiality of Alcohol and Drug Abuse Patient Records regulations: The Federal rules restrict any use of the information to criminally investigate or prosecute any alcohol or drug abuse patient.[facility] CenterIn the event this information is protected by the Federal Confidentiality of Alcohol and Drug Abuse Patient Records regulations: The Federal rules restrict any use of the information to criminally investigate or prosecute any alcohol or drug abuse patient.[facility] CenterIn the event this information is protected by the Federal Confidentiality of Alcohol and Drug Abuse Patient Records regulations: The Federal rules restrict any use of the information to criminally investigate or prosecute any alcohol or drug abuse patient.[facility] CenterIn the event this information is protected by the Federal Confidentiality of Alcohol and Drug Abuse Patient Records regulations: The Federal rules restrict any use of the information to criminally investigate or prosecute any alcohol or drug abuse patient.[facility] CenterIn the event this information is protected by the Federal Confidentiality of Alcohol and Drug Abuse Patient Records regulations: The Federal rules restrict any use of the information to criminally investigate or prosecute any alcohol or drug abuse patient.[facility] CenterIn the event this information is protected by the Federal Confidentiality of Alcohol and Drug Abuse Patient Records regulations: The Federal rules restrict any use of the information to criminally investigate or prosecute any alcohol or drug abuse patient.[facility] CenterIn the event this information is protected by the Federal Confidentiality of Alcohol and Drug Abuse Patient Records regulations: The Federal rules restrict any use of the information to criminally investigate or prosecute any alcohol or drug abuse patient.[facility] CenterIn the event this information is protected by the Federal Confidentiality of Alcohol and Drug Abuse Patient Records regulations: The Federal rules restrict any use of the information to criminally investigate or prosecute any alcohol or drug abuse patient.[facility] CenterIn the event this information is protected by the Federal Confidentiality of Alcohol and Drug Abuse Patient Records regulations: The Federal rules restrict any use of the information to criminally investigate or prosecute any alcohol or drug abuse patient.[facility] CenterIn the event this information is protected by the Federal Confidentiality of Alcohol and Drug Abuse Patient Records regulations: The Federal rules restrict any use of the information to criminally investigate or prosecute any alcohol or drug abuse patient.[facility] CenterIn the event this information is protected by the Federal Confidentiality of Alcohol and Drug Abuse Patient Records regulations: The Federal rules restrict any use of the information to criminally investigate or prosecute any alcohol or drug abuse patient.[facility] CenterIn the event this information is protected by the Federal Confidentiality of Alcohol and Drug Abuse Patient Records regulations: The Federal rules restrict any use of the information to criminally investigate or prosecute any alcohol or drug abuse patient.[facility] CenterIn the event this information is protected by the Federal Confidentiality of Alcohol and Drug Abuse Patient Records regulations: The Federal rules restrict any use of the information to criminally investigate or prosecute any alcohol or drug abuse patient.[facility] CenterIn the event this information is protected by the Federal Confidentiality of Alcohol and Drug Abuse Patient Records regulations: The Federal rules restrict any use of the information to criminally investigate or prosecute any alcohol or drug abuse patient.[facility] CenterIn the event this information is protected by the Federal Confidentiality of Alcohol and Drug Abuse Patient Records regulations: The Federal rules restrict any use of the information to criminally investigate or prosecute any alcohol or drug abuse patient.[facility] CenterIn the event this information is protected by the Federal Confidentiality of Alcohol and Drug Abuse Patient Records regulations: The Federal rules restrict any use of the information to criminally investigate or prosecute any alcohol or drug abuse patient.[facility] CenterIn the event this information is protected by the Federal Confidentiality of Alcohol and Drug Abuse Patient Records regulations: The Federal rules restrict any use of the information to criminally investigate or prosecute any alcohol or drug abuse patient.[facility] CenterIn the event this information is protected by the Federal Confidentiality of Alcohol and Drug Abuse Patient Records regulations: The Federal rules restrict any use of the information to criminally investigate or prosecute any alcohol or drug abuse patient.[facility] CenterIn the event this information is protected by the Federal Confidentiality of Alcohol and Drug Abuse Patient Records regulations: The Federal rules restrict any use of the information to criminally investigate or prosecute any alcohol or drug abuse patient.[facility] CenterIn the event this information is protected by the Federal Confidentiality of Alcohol and Drug Abuse Patient Records regulations: The Federal rules restrict any use of the information to criminally investigate or prosecute any alcohol or drug abuse patient.[facility] CenterIn the event this information is protected by the Federal Confidentiality of Alcohol and Drug Abuse Patient Records regulations: The Federal rules restrict any use of the information to criminally investigate or prosecute any alcohol or drug abuse patient.[facility] CenterIn the event this information is protected by the Federal Confidentiality of Alcohol and Drug Abuse Patient Records regulations: The Federal rules restrict any use of the information to criminally investigate or prosecute any alcohol or drug abuse patient.[facility] CenterIn the event this information is protected by the Federal Confidentiality of Alcohol and Drug Abuse Patient Records regulations: The Federal rules restrict any use of the information to criminally investigate or prosecute any alcohol or drug abuse patient.[facility] CenterIn the event this information is protected by the Federal Confidentiality of Alcohol and Drug Abuse Patient Records regulations: The Federal rules restrict any use of the information to criminally investigate or prosecute any alcohol or drug abuse patient.[facility] CenterIn the event this information is protected by the Federal Confidentiality of Alcohol and Drug Abuse Patient Records regulations: The Federal rules restrict any use of the information to criminally investigate or prosecute any alcohol or drug abuse patient.[facility] CenterIn the event this information is protected by the Federal Confidentiality of Alcohol and Drug Abuse Patient Records regulations: The Federal rules restrict any use of the information to criminally investigate or prosecute any alcohol or drug abuse patient.[facility] CenterIn the event this information is protected by the Federal Confidentiality of Alcohol and Drug Abuse Patient Records regulations: The Federal rules restrict any use of the information to criminally investigate or prosecute any alcohol or drug abuse patient.[facility] CenterIn the event this information is protected by the Federal Confidentiality of Alcohol and Drug Abuse Patient Records regulations: The Federal rules restrict any use of the information to criminally investigate or prosecute any alcohol or drug abuse patient.[facility] CenterIn the event this information is protected by the Federal Confidentiality of Alcohol and Drug Abuse Patient Records regulations: The Federal rules restrict any use of the information to criminally investigate or prosecute any alcohol or drug abuse patient.[facility] CenterIn the event this information is protected by the Federal Confidentiality of Alcohol and Drug Abuse Patient Records regulations: The Federal rules restrict any use of the information to criminally investigate or prosecute any alcohol or drug abuse patient.[facility] CenterIn the event this information is protected by the Federal Confidentiality of Alcohol and Drug Abuse Patient Records regulations: The Federal rules restrict any use of the information to criminally investigate or prosecute any alcohol or drug abuse patient.[facility] CenterIn the event this information is protected by the Federal Confidentiality of Alcohol and Drug Abuse Patient Records regulations: The Federal rules restrict any use of the information to criminally investigate or prosecute any alcohol or drug abuse patient.[facility] CenterIn the event this information is protected by the Federal Confidentiality of Alcohol and Drug Abuse Patient Records regulations: The Federal rules restrict any use of the information to criminally investigate or prosecute any alcohol or drug abuse patient.[facility] CenterIn the event this information is protected by the Federal Confidentiality of Alcohol and Drug Abuse Patient Records regulations: The Federal rules restrict any use of the information to criminally investigate or prosecute any alcohol or drug abuse patient.[facility] CenterIn the event this information is protected by the Federal Confidentiality of Alcohol and Drug Abuse Patient Records regulations: The Federal rules restrict any use of the information to criminally investigate or prosecute any alcohol or drug abuse patient.[facility] CenterIn the event this information is protected by the Federal Confidentiality of Alcohol and Drug Abuse Patient Records regulations: The Federal rules restrict any use of the information to criminally investigate or prosecute any alcohol or drug abuse patient.[facility] CenterIn the event this information is protected by the Federal Confidentiality of Alcohol and Drug Abuse Patient Records regulations: The Federal rules restrict any use of the information to criminally investigate or prosecute any alcohol or drug abuse patient.[facility] CenterIn the event this information is protected by the Federal Confidentiality of Alcohol and Drug Abuse Patient Records regulations: The Federal rules restrict any use of the information to criminally investigate or prosecute any alcohol or drug abuse patient.[facility] CenterIn the event this information is protected by the Federal Confidentiality of Alcohol and Drug Abuse Patient Records regulations: The Federal rules restrict any use of the information to criminally investigate or prosecute any alcohol or drug abuse patient.[facility] CenterIn the event this information is protected by the Federal Confidentiality of Alcohol and Drug Abuse Patient Records regulations: The Federal rules restrict any use of the information to criminally investigate or prosecute any alcohol or drug abuse patient.[facility] CenterIn the event this information is protected by the Federal Confidentiality of Alcohol and Drug Abuse Patient Records regulations: The Federal rules restrict any use of the information to criminally investigate or prosecute any alcohol or drug abuse patient.[facility] CenterIn the event this information is protected by the Federal Confidentiality of Alcohol and Drug Abuse Patient Records regulations: The Federal rules restrict any use of the information to criminally investigate or prosecute any alcohol or drug abuse patient.[facility] CenterIn the event this information is protected by the Federal Confidentiality of Alcohol and Drug Abuse Patient Records regulations: The Federal rules restrict any use of the information to criminally investigate or prosecute any alcohol or drug abuse patient.[facility] CenterIn the event this information is protected by the Federal Confidentiality of Alcohol and Drug Abuse Patient Records regulations: The Federal rules restrict any use of the information to criminally investigate or prosecute any alcohol or drug abuse patient.[facility] CenterIn the event this information is protected by the Federal Confidentiality of Alcohol and Drug Abuse Patient Records regulations: The Federal rules restrict any use of the information to criminally investigate or prosecute any alcohol or drug abuse patient.[facility] CenterIn the event this information is protected by the Federal Confidentiality of Alcohol and Drug Abuse Patient Records regulations: The Federal rules restrict any use of the information to criminally investigate or prosecute any alcohol or drug abuse patient.[facility] CenterIn the event this information is protected by the Federal Confidentiality of Alcohol and Drug Abuse Patient Records regulations: The Federal rules restrict any use of the information to criminally investigate or prosecute any alcohol or drug abuse patient.[facility] CenterIn the event this information is protected by the Federal Confidentiality of Alcohol and Drug Abuse Patient Records regulations: The Federal rules restrict any use of the information to criminally investigate or prosecute any alcohol or drug abuse patient.[facility] CenterIn the event this information is protected by the Federal Confidentiality of Alcohol and Drug Abuse Patient Records regulations: The Federal rules restrict any use of the information to criminally investigate or prosecute any alcohol or drug abuse patient.[facility] CenterIn the event this information is protected by the Federal Confidentiality of Alcohol and Drug Abuse Patient Records regulations: The Federal rules restrict any use of the information to criminally investigate or prosecute any alcohol or drug abuse patient.[facility] CenterIn the event this information is protected by the Federal Confidentiality of Alcohol and Drug Abuse Patient Records regulations: The Federal rules restrict any use of the information to criminally investigate or prosecute any alcohol or drug abuse patient.[facility] CenterIn the event this information is protected by the Federal Confidentiality of Alcohol and Drug Abuse Patient Records regulations: The Federal rules restrict any use of the information to criminally investigate or prosecute any alcohol or drug abuse patient.[facility] CenterIn the event this information is protected by the Federal Confidentiality of Alcohol and Drug Abuse Patient Records regulations: The Federal rules restrict any use of the information to criminally investigate or prosecute any alcohol or drug abuse patient.[facility] CenterIn the event this information is protected by the Federal Confidentiality of Alcohol and Drug Abuse Patient Records regulations: The Federal rules restrict any use of the information to criminally investigate or prosecute any alcohol or drug abuse patient.[facility] CenterIn the event this information is protected by the Federal Confidentiality of Alcohol and Drug Abuse Patient Records regulations: The Federal rules restrict any use of the information to criminally investigate or prosecute any alcohol or drug abuse patient.[facility] CenterIn the event this information is protected by the Federal Confidentiality of Alcohol and Drug Abuse Patient Records regulations: The Federal rules restrict any use of the information to criminally investigate or prosecute any alcohol or drug abuse patient.[facility] CenterIn the event this information is protected by the Federal Confidentiality of Alcohol and Drug Abuse Patient Records regulations: The Federal rules restrict any use of the information to criminally investigate or prosecute any alcohol or drug abuse patient.[facility] CenterIn the event this information is protected by the Federal Confidentiality of Alcohol and Drug Abuse Patient Records regulations: The Federal rules restrict any use of the information to criminally investigate or prosecute any alcohol or drug abuse patient.[facility] CenterIn the event this information is protected by the Federal Confidentiality of Alcohol and Drug Abuse Patient Records regulations: The Federal rules restrict any use of the information to criminally investigate or prosecute any alcohol or drug abuse patient.[facility] CenterIn the event this information is protected by the Federal Confidentiality of Alcohol and Drug Abuse Patient Records regulations: The Federal rules restrict any use of the information to criminally investigate or prosecute any alcohol or drug abuse patient.[facility] Scheduled Active and Recently Administ ered Medications (unrecognized section and content) Medication Order01/15//// acetaminophen (Tylenol) tablet 975 mg 975 mg, oral, Once, On Thu01/18/24 at 1200, For 1 dose, Recovery (only), If ordered PRN for pain, nurse is permitted to administer this medication for higher pain scores based on patient preference? Yes * 1200 (Due) ceFAZolin in dextrose (iso-os) (Ancef) [...] Indication (Select all that apply): Surgical Prophylaxis * 1019 (Given - Provider: Maribel Esposito, [employer]) lidocaine (Xylocaine) 10 mg/mL (1 %) injection 1 mg 1 mg (0.1 mL), subcutaneous, Once, On Thu01/18/24 at 1200, For 1 dose, Recovery (only), To be used for IV insertion ONLY * 1200 (Due) onabotulinumtoxinA (Botox) injection 200 Units (COMPLETED) 200 Units, intramuscular, Once, On Thu01/18/24 at 1000, For 1 dose * 1000 (Due) * 1033 (Given - Provider: Dominick Lopes MD) phenazopyridine (Pyridium) tablet 200 mg 200 mg, oral, 3 times daily with meals, First dose on Thu01/18/24 at 1215, May discolor urine (orange). * 1201 (Given - Provider: Shelbie Chung RN) * 1700 (Due) Medication Order// lactated Ringer's infusion 100 mL/hr, intravenous, Continuous, Starting on Thu01/18/24 at 1200, Recovery (only) * 1200 (Due) Medication Order// albuterol 2.5 mg /3 mL (0.083 %) [...] 30 min PRN, high blood pressure, systolic bloodpressure greater than 180 mmHg and heart rate less than 60 BPM, Starting on Thu01/18/24 at 1133, For 2 doses, Recovery (only) HYDROcodone-acetaminophen ([place]) 5-325 mg per tablet 1 tablet 1 tablet, oral, Every 6 hours PRN, pain severe (7-10), first line, Starting on Thu01/18/24 at 1134,If ordered PRN for pain, nurse is permitted to administer this medication for higher pain scores based on patient preference? Yes * 1202 (Given - Provider: Shelbie Chung RN) HYDROmorphone (Dilaudid) injection 0.5 [...] heart rate greater than 60 BPM, Startingon Thu01/18/24 at 1133, For 1 dose, Recovery [...] BE BASED ON THE PRIMARY CLINICAL RECORDS. [facility]. provides no warranty or guarantee of the accuracy or completeness of information in this document.
[2025-08-16 16:39] LABS: Hematocrit 37.4 % (36.0-48.0); Hemoglobin 12.6 g/dL (12.0-16.0); Immature Granulocytes Abs Auto 0.05 10^3/uL (0.00-0.03); Immature Granulocytes Pct Auto 0.5 % (0.0-0.5); Lymphocytes Absolute Auto 1.9 10^3/uL (1.2-3.8); Mean Corpuscular HGB Conc 33.7 g/dL (29.9-35.2); Mean Corpuscular Hemoglobin 29.3 pg (26.7-34.0); Mean Corpuscular Volume 87.0 fL (81.0-99.0); Platelet Count 262 10^3/uL (150-450); Red Blood Count 4.30 10^6/uL (4.20-5.40); White Blood Count 10.9 10^3/uL (4.0-11.0)
[2025-08-16 16:40] LABS: Glucose Urine UA NEGATIVE (NEGATIVE)
[2025-08-16 16:49] LABS: HCG Qualitative Urine* NEGATIVE (NEGATIVE)
[2025-08-16 16:52] LABS: Cast Seen? NONE SEEN #/LPF (NONE SEEN); Crystals Seen? None Seen #/HPF (None Seen)
[2025-08-16 16:53] LABS: Urine Culture Indicated YES-FRMC
[2025-08-16 16:57] LABS: Alanine Aminotransferase 24 U/L (14-59); Albumin Globulin Ratio 0.9; Albumin Level 3.3 g/dL (3.4-5.0); Alkaline Phosphatase 79 U/L (46-116); Anion Gap 9.8; Aspartate Amino Transferase 14 U/L (15-37); Blood Urea Nitrogen 13.0 mg/dL (7.0-18.0); Calcium 8.8 mg/dL (8.5-10.1); Carbon Dioxide 29.0 mmol/L (21.0-32.0); Chloride 102 mmol/L (98-107); Estimated GFR (African America >60 (>=60 mL/min/1.73m^2); Estimated GFR (Non-African Ame >60 (>=60 mL/min/1.73m^2); Globulin 3.8 g/dL; Glucose 123 mg/dL (74-106); Lipase 21.0 U/L (16.0-77.0); Potassium 3.8 mmol/L (3.5-5.1); Sodium 137 mmol/L (136-145); Total Protein 7.1 g/dL (6.4-8.2)
--- NOTE | 2025-08-16 17:59 | CT_ITS ---
The [address] [address] Patient Name: WENDI SALEH MRN: [id number] date: 1980 Sex: F Assigned Patient Location: ER Current Patient Location: ER Accession/Order Number: [id number] Exam Date: 08/16/2025 18:06 Report Date: 08/16/2025 19:51 At the request of: VICKI KLINE Procedure: CT abdomen pelvis wo con CT ABDOMEN AND PELVIS WITHOUT INTRAVENOUS CONTRAST: CLINICAL HISTORY: Left Flank, L Abd pain COMPARISON: 06/17/2024 TECHNIQUE: Spiral images were obtained through the abdomen and pelvis without intravenous contrast. This CT exam was performed using one or more following dose reduction techniques: Automated exposure control, adjustment of the mA and/or kV according to patient size, or use of iterative reconstruction technique. FINDINGS: Lung Bases: [No focal opacity.] Organs:Liver, gallbladder, spleen, adrenals and pancreas unremarkable. There is distention left renal collecting system which is progressed from prior examination. There is diffuse dilatation left ureter noted. Left perinephric fat stranding. No calculi identified along course of the left ureter. No nephrolithiasis.[Wedge-shaped defect right superior pole kidney likely due to scarring. GI: Mild retained stool. Colonic air fluid levels. Distal colonic diverticulosis. There are no CT findings acute appendicitis.[ Pelvis:[Bladder wall thickening. Uterus grossly unremarkable. No adnexal mass.] Peritoneum/Retroperitoneum:No free air or free fluid. No pathologically enlarged adenopathy.[Aorta unremarkable caliber. Abd wall/Bones:No suspicious osseous lesion.[ CT/CT abdomen pelvis wo con IMPRESSION: Left-sided hydroureteronephrosis and bladder wall thickening. No obstructing calculi identified. Left perinephric fat stranding and periureteral fat stranding noted be related to hydronephrosis versus an infectious etiology. Clinical correlation is recommended. Impression dictated by: Geoff Jane M.D. 08/16/2025 7:51 PM Dictation Location: [place] [address] Electronically authenticated by: [id number] Y Date: 08/16/2025 19:51
--- NOTE | 2025-08-16 19:10 | PC.NURSE ---
i walked into this patient's room to find this patient awake and alert sitting at the edge of the bed looking at her cell phone and talking to someone in the room. i introduced myself to this patient and informed her that we are waiting on the ct results to come back. this patient voices no concerns, needs and shows no signs of distress
--- NOTE | 2025-08-16 20:42 | PC.NURSE ---
this patient awake and alert sitting up at the edge of the bed and playing and game on her cell phone
[2025-08-16] MEDS: HYDROMORPHONE HCL 1 MG/ML CARTRIDGE IV (21:03)
[2025-08-16] MEDS: OXYCODONE HCL/ACETAMINOPHEN 5MG/325MG 1 TAB PO ×2 (22:07→22:08)
--- NOTE | 2025-08-16 22:14 | PC.NURSE ---
i gave this patient verbal and written discharge orders along with 3 take home medication and 1 e-script and this patient voices yes to understanding these. at time of discharge this patient voices no concerns, needs and shows no signs of distress. i did in informed this patient not to operate any automobile, machinery, or go to work while taking these pain medication and the rest of tonight since iv pain medication was given to you and to take a stool softer.
== END 2025-08-16 22:18 | disposition home or self-care (01) ==
PROVIDERS: Physician Assistant; Emergency Provider Emergency Medicine
DX: N13.6 Pyonephrosis (principal); N30.90 Cystitis, unspecified without hematuria; N31.9 Neuromuscular dysfunction of bladder, unspecified; Z98.890 Other specified postprocedural states; Q05.9 Spina bifida, unspecified; F17.200 Nicotine dependence, unspecified, uncomplicated; Z87.440 Personal history of urinary (tract) infections
CPT/HCPCS: 36415; 51798; 74176; 80053; 81001; 83690; 84703; 85025; 87086; 87088; 87186; 96365; 96372; 96375; 99284; J0696; J1171; J1885; Q0162